=== PATIENT | female | born 1995 | race Caucasian/White ===

== ENCOUNTER 2023-02-27 11:01 | Outpatient (OUT) | payer OTHER, SELFPAY ==
[2023-02-27 12:14] LABS: Basophils Absolute Auto 0.1 10^3/uL (0.0-0.1); Basophils Percent Auto 0.9 % (0.2-2.0); Eosinophils Absolute Auto 0.2 10^3/uL (0.0-0.7); Eosinophils Percent Auto 3.1 % (0.9-7.0); Hematocrit 37.8 % (36.0-48.0); Hemoglobin 12.5 g/dL (12.0-16.0); Immature Granulocytes Abs Auto 0.05 10^3/uL (0.00-0.03); Immature Granulocytes Pct Auto 0.8 % (0.0-0.5); Lymphocytes Absolute Auto 1.4 10^3/uL (1.2-3.8); Lymphocytes Percent Auto 22.2 % (20.5-60.0); Mean Corpuscular HGB Conc 33.1 g/dL (29.9-35.2); Mean Corpuscular Hemoglobin 35.7 pg (26.7-34.0); Mean Platelet Volume 9.3 fL (9.5-13.5); Monocytes Absolute Auto 0.3 10^3/uL (0.3-0.8); Monocytes Percent Auto 4.9 % (1.7-12.0); Neutrophils Absolute Auto 4.4 10^3/uL (1.4-6.5); Neutrophils Percent Auto 68.1 % (43.0-75.0); Platelet Count 271 10^3/uL (150-450); Red Cell Distribution Width 13.5 % (11.0-15.0); White Blood Count 6.5 10^3/uL (4.0-11.0)
[2023-02-27 12:22] LABS: Erythrocyte Sedimentation Rate 24 mm/hr (<=20)
[2023-02-27 13:32] LABS: Alanine Aminotransferase 53 U/L (14-59); Albumin Globulin Ratio 0.7; Albumin Level 2.9 g/dL (3.4-5.0); Alkaline Phosphatase 157 U/L (46-116); Anion Gap 21.8; Aspartate Amino Transferase 119 U/L (15-37); Bilirubin Total 0.8 mg/dL (0.2-1.0); Carbon Dioxide 18.5 mmol/L (21.0-32.0); Chloride 103 mmol/L (98-107); Estimated GFR (African America >60 (>=60); Estimated GFR (Non-African Ame >60 (>=60); Free T3 2.99 pg/mL (2.18-3.98); Globulin 4.1 g/dL; Glucose 191 mg/dL (74-106); Potassium 3.3 mmol/L (3.5-5.1); Sodium 140 mmol/L (136-145); Thyroid Stimulating Hormone 1.341 uIU/mL (0.358-3.740)
[2023-02-28 05:07] LABS: HBsAg Screen Negative (Negative); HCV Ab Non Reactive (Non Reactive); Hep A Ab, IgM Negative (Negative); Hep B Core Ab, IgM Negative (Negative)
== END 2023-02-27 11:02 | disposition home or self-care (01) ==
PROVIDERS: PCP Nurse Practitioner Family; Visit Provider Nurse Practitioner Family
DX: R60.0 Localized edema (principal)
CPT/HCPCS: 36415; 80053; 80074; 82607; 82746; 83540; 84436; 84443; 84481; 85652

== ENCOUNTER 2023-03-04 12:49 | Outpatient (OUT) | payer OTHER, SELFPAY ==
--- NOTE | 2023-03-04 | US_ITS ---
The [place] [id number] Patient Name: RICA STOUT MRN: [id number] date: 1995 Sex: F Assigned Patient Location: US Current Patient Location: US Accession/Order Number: [id number] Exam Date: 03/04/2023 12:56 Report Date: 03/04/2023 16:17 At the request of: CARINA ARAUJO Procedure: US venous doppler LE BI EXAMINATION: US venous doppler LE BI HISTORY: Localized edema R60.0 COMPARISON: No relevant comparison available. FINDINGS: REGION: Bilateral lower extremities THROMBI: . COMPRESSIBILITY: Normal compressibility. FLOW: Normal waveform and antegrade flow between 5 and 20 cm/s. OTHER: None. US/US venous doppler LE BI IMPRESSION: 1. No deep vein thrombus within the right or left lower extremity. Electronically authenticated by: DAVID TRUONG Date: 03/04/2023 16:17
== END 2023-03-04 12:50 | disposition home or self-care (01) ==
LOC: US 12:49
PROVIDERS: PCP Nurse Practitioner Family; Visit Provider Nurse Practitioner Family
DX: R60.0 Localized edema (principal)
CPT/HCPCS: 93970

== ENCOUNTER 2023-03-11 18:14 | Emergency (ER) | payer OTHER, SELFPAY ==
[2023-03-11] VITALS (38 sets, daily range): BP systolic 103–125; BP diastolic 55–76; PULSE 113–130; RESP 13–38; TEMP 36.8; O2SAT 100; BMI 22.3
--- NOTE | 2023-03-11 18:20 | ECG_ITS ---
The [facility] Test Date: 2023-03-11 Pat Name: RICA STOUT Department: Room: - Gender: Female Surg Tech: : 1995 Requested By: CARINA ARAUJO Order Number: [id number] Reading MD: ARIES ORTEGA Measurements Intervals [place] Rate: 123 P: 63 MN: 146 QRS: 93 QRSD: 72 T: 13 QT: 318 QTc: 391 Interpretive Statements 1120 Sinus tachycardia 4068 Nonspecific Twave abnormality 7102 Moderate right axis deviation 9140 abnormal rhythm ECG No previous ECG available for comparison Electronically Signed On 03-12-2023 7:03:12 EDT by ARIES ORTEGA
--- NOTE | 2023-03-11 18:24 | ED_ITS ---
HPI - General Adult General Chief complaint: Chest Pain Stated complaint: High Heart Rate, Dizziness, Lower Extremity Edema Time Seen by Provider: 03/11/23 18:20 Source: patient Mode of arrival: walk-in Limitations: no limitations History of Present Illness HPI narrative: 27-year-old female presents with palpitations for the past 4 days. She states that her grandmother has a watch to look at her heart rate and was in the 140s. Symptoms have been ongoing all day. She states that she had an episode of bilateral leg weakness where she could not walk with bilateral lower leg edema 2 months ago and this resolved. She saw her family doctor for this issue and had imaging of her neck, but she is not sure what specific imaging. She thinks her family doctor was trying to get imaging of her brain, but insurance Related Data Previous Rx's Medication Instructions Recorded magnesium 200 mg tablet 400 mg PO DAILY 5 days #10 tabs 03/11/23 potassium chloride 20 mEq 40 meq PO DAILY 5 days #10 tabs 03/11/23 tablet,extended release Allergies Allergy/AdvReac Type Severity Reaction Status Date / Time Penicillins Allergy Severe Verified 03/11/23 18:17 Exam Constitutional Vital Signs, click to edit/add: Last Vital Signs Temp 98.3 F 03/11/23 18:17 Pulse 114 H 03/12/23 00:50 Resp 26 H 03/12/23 00:50 BP 121/67 03/12/23 00:30 Pulse Ox 100 03/11/23 21:40 O2 Del Method Room Air 03/11/23 18:17 Course Vital Signs Vital signs: Vital Signs Temperature 98.3 F 03/11/23 18:17 Pulse Rate 130 H 03/11/23 18:17 Respiratory Rate 18 03/11/23 18:17 Blood Pressure 116/73 03/11/23 18:17 Pulse Oximetry 100 03/11/23 18:17 Oxygen Delivery Method Room Air 03/11/23 18:17 Temperature 98.3 F 03/11/23 18:17 Pulse Rate 114 H 03/12/23 00:50 Respiratory Rate 26 H 03/12/23 00:50 Blood Pressure 121/67 03/12/23 00:30 Pulse Oximetry 100 03/11/23 21:40 Oxygen Delivery Method Room Air 03/11/23 18:17 Medical Decision Making MDM Narrative Medical decision making narrative: EKG sinus tachycardia at a rate of 123. Patient had labs done 2 weeks ago. D- dimer 0.91. Magnesium 1.4 and will be given 2 g IV. Potassium 2.6 and given 40 orally and 40 IV. No acute findings on chest x-ray. AST 163, ALT 67 and alk phos 142. No other significant abnormalities. She states that she drinks 3 to 4 16 ounce twisted teas 3-4 times a week. She states that she does have a history of hypokalemia and family doctor did not know why. UA negative appears contaminated. UDS positive for cannabinoids, otherwise negative. CTA PE chest negative for PE, but does show hepatomegaly and diffuse hepatic steatosis. She is instructed on alcohol cessation. She also states that she was seeing a liver doctor in [place] when she was on Vivitrol a couple years ago for heroin. She states that she was on this for a year or longer than she was supposed to be taking this medication. Findings likely alcohol related. She is to follow-up with her family doctor to monitor her LFTs. She will be given a 5- day prescription of K-dur and magnesium. Afebrile, not tachypneic, not tachycardic, not hypoxic, non toxic appearing and ambulating at baseline and hemodynamically stable to be d/c. answered all questions. educated on SE of meds. pt in agreement with tx. educated when to return to ER. Lab Data Labs: Lab Results 03/11/23 03/11/23 Range/Units 18:40 19:45 WBC 6.6 (4.0-11.0) 10^3/uL RBC 3.15 L (4.20-5.40) 10^6/uL Hgb 11.6 L (12.0-16.0) g/dL Hct 34.2 L (36.0-48.0) % MCV 108.6 H (81.0-99.0) fL MCH 36.8 H (26.7-34.0) pg MCHC 33.9 (29.9-35.2) g/dL RDW 14.1 (11.0-15.0) % Plt Count 349 (150-450) 10^3/uL MPV 9.1 L (9.5-13.5) fL Neut % (Auto) 61.5 (43.0-75.0) % Lymph % (Auto) 29.9 (20.5-60.0) % Parker % (Auto) 6.6 (1.7-12.0) % Eos % (Auto) 0.6 L (0.9-7.0) % Baso % (Auto) 0.8 (0.2-2.0) % Neut # (Auto) 4.1 (1.4-6.5) 10^3/uL Lymph # (Auto) 2.0 (1.2-3.8) 10^3/uL Parker # (Auto) 0.4 (0.3-0.8) 10^3/uL Eos # (Auto) 0.0 (0.0-0.7) 10^3/uL Baso # (Auto) 0.1 (0.0-0.1) 10^3/uL Abs Immat Gran (auto) 0.04 H (0.00-0.03) 10^3/uL Imm/Tot Granulo (auto) 0.6 H (0.0-0.5) % D-Dimer 0.91 H* (<=0.59) mg/L FEU Sodium 135 L (136-145) mmol/L Potassium 2.6 L* (3.5-5.1) mmol/L Chloride 98 (98-107) mmol/L Carbon Dioxide 18.1 L (21.0-32.0) mmol/L Anion Gap 21.5 BUN <1.0 L (7.0-18.0) mg/dL Creatinine 0.65 (0.55-1.02) mg/dL Est GFR ( Amer) >60 (>=60) Est GFR (Non-Af Amer) >60 (>=60) BUN/Creatinine Ratio 1.5 Glucose 106 (74-106) mg/dL Calcium 8.7 (8.5-10.1) mg/dL Magnesium 1.4 L (1.8-2.4) mg/dL Total Bilirubin 0.7 (0.2-1.0) mg/dL AST 163 H (15-37) U/L ALT 67 H (14-59) U/L Alkaline Phosphatase 142 H (46-116) U/L Total Protein 7.2 (6.4-8.2) g/dL Albumin 3.0 L (3.4-5.0) g/dL Globulin 4.2 g/dL Albumin/Globulin Ratio 0.7 TSH 1.807 (0.358-3.740) uIU/mL Urine Color Yellow (YELLOW) Urine Clarity Clear (CLEAR) Urine pH 5.5 (5.0-9.0) Ur Specific [place] 1.025 (1.005-1.025) Urine Protein Trace (NEG/TRACE) mg/dL Urine Glucose (UA) Negative (NEGATIVE) mg/dL Urine Ketones Negative (NEGATIVE) mg/dL Urine Occult Blood Negative (NEGATIVE) Urine Nitrite Negative (NEGATIVE) Urine Bilirubin Negative (NEGATIVE) Urine Urobilinogen 1.0 (0.2-1.0) EU/dL Ur Leukocyte Esterase Trace A (NEGATIVE) Urine RBC 0-2 (0-2) #/HPF Urine WBC 2-5 A (NONE SEEN) #/HPF Ur Squamous Epith Cells Many A (NONE/RARE) #/LPF Urine Crystals None seen (None Seen) #/HPF Urine Bacteria Trace A (NONE SEEN) #/HPF Urine Casts None seen (NONE SEEN) #/LPF Urine Mucus Small A (NONE SEEN) Urine HCG, Qual Negative (NEGATIVE) Urine Opiates Screen Negative (NEGATIVE) Ur Buprenorphine Scrn Negative (NEGATIVE) Ur Oxycodone Screen Negative (NEGATIVE) Urine Methadone Screen Negative (NEGATIVE) Ur Propoxyphene Screen Negative (NEGATIVE) Ur Barbiturates Screen Negative (NEGATIVE) U Tricyclic Antidepress Negative (NEGATIVE) Ur Phencyclidine Scrn Negative (NEGATIVE) Ur Amphetamines Screen Negative (NEGATIVE) U Methamphetamines Scrn Negative (NEGATIVE) U Benzodiazepines Scrn Negative (NEGATIVE) Urine Cocaine Screen Negative (NEGATIVE) U Cannabinoids Screen Positive A (NEGATIVE) Discharge Plan Discharge Chief Complaint: Chest Pain Clinical Impression: Heart palpitations, Hypokalemia, Hypomagnesemia, Elevated LFTs, Hepatic steatosis, Hepatomegaly, Alcohol use Patient Disposition: Home, Self-Care Time of Disposition Decision: 20:48 Condition: Good Mode of Transportation: Private Vehicle Prescriptions / Home Meds: New potassium chloride 20 mEq tablet extended release 40 meq PO DAILY 5 Days Qty: 10 0RF magnesium 200 mg tablet 400 mg PO DAILY 5 Days Qty: 10 0RF Instructions: Heart Palpitations (ED), Cirrhosis of the Liver (ED), Hypokalemia (ED), Hypomagnesemia (ED) Stand Alone Forms: Portal Instructions Referrals: CARINA ARAUJO [Primary Care Provider] - 1 week Discharge Date/Time: 03/12/23 00:59
--- NOTE | 2023-03-11 18:32 | XR_ITS ---
The [address] [address] Patient Name: RICA STOUT MRN: [id number] date: 1995 Sex: F Assigned Patient Location: ER Current Patient Location: ER Accession/Order Number: [id number] Exam Date: 03/11/2023 16:40 Report Date: 03/11/2023 19:04 At the request of: JE BRUNO Procedure: XR chest 1V EXAMINATION: XR chest 1V HISTORY: Shortness of breath COMPARISON: None. TECHNIQUE: Portable chest FINDINGS: The lung parenchyma is free of consolidation or infiltrate. No pneumothorax or pleural effusion. The cardiac, mediastinal and hilar contours are normal. The visualized osseous structures exhibit no gross abnormality. XR/XR chest 1V IMPRESSION: No acute cardiopulmonary abnormality. Electronically authenticated by: KARYNA VIZCARRA Date: 03/11/2023 19:04
[2023-03-11 18:46] LABS: Basophils Absolute Auto 0.1 10^3/uL (0.0-0.1); Basophils Percent Auto 0.8 % (0.2-2.0); Eosinophils Percent Auto 0.6 % (0.9-7.0); Hematocrit 34.2 % (36.0-48.0); Hemoglobin 11.6 g/dL (12.0-16.0); Immature Granulocytes Abs Auto 0.04 10^3/uL (0.00-0.03); Immature Granulocytes Pct Auto 0.6 % (0.0-0.5); Lymphocytes Percent Auto 29.9 % (20.5-60.0); Mean Corpuscular HGB Conc 33.9 g/dL (29.9-35.2); Mean Corpuscular Hemoglobin 36.8 pg (26.7-34.0); Mean Corpuscular Volume 108.6 fL (81.0-99.0); Mean Platelet Volume 9.1 fL (9.5-13.5); Monocytes Absolute Auto 0.4 10^3/uL (0.3-0.8); Monocytes Percent Auto 6.6 % (1.7-12.0); Neutrophils Absolute Auto 4.1 10^3/uL (1.4-6.5); Neutrophils Percent Auto 61.5 % (43.0-75.0); Platelet Count 349 10^3/uL (150-450); Red Blood Count 3.15 10^6/uL (4.20-5.40); Red Cell Distribution Width 14.1 % (11.0-15.0); White Blood Count 6.6 10^3/uL (4.0-11.0)
[2023-03-11 19:13] LABS: Alanine Aminotransferase 67 U/L (14-59); Albumin Globulin Ratio 0.7; Alkaline Phosphatase 142 U/L (46-116); Anion Gap 21.5; Aspartate Amino Transferase 163 U/L (15-37); BUN Creatinine Ratio 1.5; Bilirubin Total 0.7 mg/dL (0.2-1.0); Blood Urea Nitrogen <1.0 mg/dL (7.0-18.0); Calcium 8.7 mg/dL (8.5-10.1); Carbon Dioxide 18.1 mmol/L (21.0-32.0); Chloride 98 mmol/L (98-107); Estimated GFR (African America >60 (>=60); Estimated GFR (Non-African Ame >60 (>=60); Globulin 4.2 g/dL; Glucose 106 mg/dL (74-106); Magnesium 1.4 mg/dL (1.8-2.4); Sodium 135 mmol/L (136-145); Thyroid Stimulating Hormone 1.807 uIU/mL (0.358-3.740); Total Protein 7.2 g/dL (6.4-8.2)
--- NOTE | 2023-03-11 19:15 | CT_ITS ---
[address] [address] Patient Name: RICA STOUT MRN: [id number] date: 1995 Sex: F Assigned Patient Location: ER Current Patient Location: ER Accession/Order Number: [id number] Exam Date: 03/11/2023 19:53 Report Date: 03/11/2023 20:30 At the request of: JE BRUNO Procedure: CT angio chest EXAMINATION: CT angio chest, 03/11/2023 7:53 PM EDT HISTORY: elevated dimer, sob, r/o PE COMPARISON: None. TECHNIQUE: CT angiography of the chest was performed with IV contrast. MIP (maximum intensity projection) images or 3D post processing was performed. CT dose reduction technique was used, including Automated Exposure Control. FINDINGS: VASCULATURE/PULMONARY ARTERIES: There is satisfactory opacification of the pulmonary arterial system. There is an area of motion artifact involving bilateral lower lobe pulmonary artery segments which limits evaluation of this region. The distal lower lobe pulmonary artery segments and subsegments appear patent. The main pulmonary artery is normal in diameter. The aorta and great vessels appear normal. HEART/PERICARDIUM: Normal. MEDIASTINAL/HILAR LYMPH NODES: No lymphadenopathy. ESOPHAGUS: Normal as visualized. PLEURAL CAVITY: No pleural effusion or pneumothorax. LUNGS/AIRWAYS: No infiltrates or consolidations. No suspicious pulmonary nodules. CHEST WALL/AXILLA/LOWER NECK: Normal. VISUALIZED UPPER ABDOMEN: There is hepatomegaly and severe diffuse hepatic steatosis. BONES: No acute process. CT/CT angio chest IMPRESSION: 1. Suboptimal study due to motion. Bilateral proximal lower lobe pulmonary artery segments are not adequately evaluated. The remainder pulmonary arteries appear patent. 2. Hepatomegaly and severe diffuse hepatic steatosis. Electronically authenticated by: ELENI BATES Date: 03/11/2023 20:30
[2023-03-11 19:16] LABS: D Dimer 0.91 mg/L FEU (<=0.59); Potassium 2.6 mmol/L (3.5-5.1)
[2023-03-11] MEDS: MAGNESIUM SULFATE IN WATER 50 ML IV (19:44)
[2023-03-11 20:00] LABS: Bilirubin Urine NEGATIVE (NEGATIVE); Blood Urine NEGATIVE (NEGATIVE); Clarity Urine CLEAR (CLEAR); Color Urine YELLOW (YELLOW); Glucose Urine UA NEGATIVE (NEGATIVE); Ketones Urine NEGATIVE (NEGATIVE); Leukocyte Esterase Urine TRACE (NEGATIVE); Nitrite Urine NEGATIVE (NEGATIVE); Protein Urine TRACE mg/dL (NEG/TRACE); Specific Gravity Urine 1.025 (1.005-1.025); pH Urine 5.5 (5.0-9.0)
[2023-03-11 20:08] LABS: Bacteria Urine TRACE #/HPF (NONE SEEN); Cast Seen? NONE SEEN #/LPF (NONE SEEN); Crystals Seen? None Seen #/HPF (None Seen); Mucus Urine SMALL (NONE SEEN); RBC Urine 0-2 #/HPF (0-2); Squamous Epithelial Cell Urine MANY #/LPF (NONE/RARE)
[2023-03-11 20:09] LABS: Amphetamine Screen Urine NEGATIVE (NEGATIVE); Barbiturates Screen Urine NEGATIVE (NEGATIVE); Benzodiazepines Screen Urine NEGATIVE (NEGATIVE); Buprenorphine Screen Urine NEGATIVE (NEGATIVE); Cannabinoid Screen Urine POSITIVE (NEGATIVE); Cocaine Screen Urine NEGATIVE (NEGATIVE); Methadone Screen Urine NEGATIVE (NEGATIVE); Methamphetamines Screen Urine NEGATIVE (NEGATIVE); Opiate Screen Urine NEGATIVE (NEGATIVE); Oxycodone Screen Urine NEGATIVE (NEGATIVE); Phencyclidine Screen Urine NEGATIVE (NEGATIVE); Tricyclic Antidepressant Urine NEGATIVE (NEGATIVE)
[2023-03-11 20:20] LABS: HCG Qualitative Urine* NEGATIVE (NEGATIVE)
[2023-03-11] MEDS: POTASSIUM CHLORIDE IN WATER 10 MEQ/100 ML PIGGYBACK 100 MEQ IV ×4 (20:49→23:59)
[2023-03-11] MEDS: 0.9 % SODIUM CHLORIDE 1,000 ML 1000 ML IV (20:49)
[2023-03-11] MEDS: POTASSIUM CHLORIDE 10 MEQ ER TABLET 40 MEQ PO (20:50)
[2023-03-12 00:02] VITALS: PULSE 127; RESP 19
[2023-03-12 00:10] VITALS: PULSE 121; RESP 16
[2023-03-12 00:20] VITALS: PULSE 133; RESP 28
[2023-03-12 00:30] VITALS: BP 121/67; PULSE 112; RESP 22
[2023-03-12 00:40] VITALS: PULSE 120; RESP 19
[2023-03-12 00:50] VITALS: PULSE 114; RESP 26
== END 2023-03-12 00:59 | disposition home or self-care (01) ==
PROVIDERS: Physician Assistant; Emergency Provider Emergency Medicine; PCP Nurse Practitioner Family
DX: R00.2 Palpitations (principal); E87.6 Hypokalemia; E83.42 Hypomagnesemia; R79.89 Other specified abnormal findings of blood chemistry; K76.0 Fatty (change of) liver, not elsewhere classified; R16.0 Hepatomegaly, not elsewhere classified; F10.90 Alcohol use, unspecified, uncomplicated; R82.5 Elevated urine levels of drugs, medicaments and biological substances
CPT/HCPCS: 36415; 71045; 71275; 80053; 80307; 81001; 83735; 84443; 84703; 85378; 93005; 96365; 96366; 96367; 96368; 96376; 99285; Q9967

== ENCOUNTER 2023-03-18 10:15 | Outpatient (OUT) | payer OTHER, SELFPAY ==
[2023-03-18 10:50] LABS: Ammonia 43 umol/L (11-32)
== END 2023-03-18 10:16 | disposition home or self-care (01) ==
LOC: LAB 10:17
PROVIDERS: PCP Nurse Practitioner Family; Visit Provider Nurse Practitioner Family
DX: I77.1 Stricture of artery (principal)
CPT/HCPCS: 36415; 82140

== ENCOUNTER 2023-04-08 09:04 | Outpatient (RCR) | payer OTHER, SELFPAY | END 2023-04-27 15:35 | disposition home or self-care (01) | LOC: PT 09:04 | PROVIDERS: PCP Nurse Practitioner Family | DX: G62.9 Polyneuropathy, unspecified (principal) | CPT/HCPCS: 97110; 97112; 97161 ==

== ENCOUNTER 2023-04-08 09:16 | Outpatient (RCR) | payer OTHER, SELFPAY | END 2023-04-27 15:36 | disposition home or self-care (01) | LOC: OT 09:16 | PROVIDERS: PCP Nurse Practitioner Family | DX: G62.9 Polyneuropathy, unspecified (principal) | CPT/HCPCS: 97161; 97166; 97530 ==

== ENCOUNTER 2023-04-15 13:10 | Outpatient (OUT) | payer OTHER, SELFPAY ==
--- NOTE | 2023-04-15 13:59 | CA_ITS ---
Patient: RICA STOUT Exam Date: 04/15/2023 : 1995 Gender:F Ordering : CARINA ARAUJO [facility] Admission #: [id number] Family : Order #: [id number] CLICK HERE TO VIEW EXAM ECHOCARDIOGRAM REPORT PROCEDURE: CA ECHO DOPPLER COMPLETE INDICATIONS: Localized edema COMPARISON: None. DESCRIPTION: COMPLETE ECHOCARDIOGRAM Real-time transthoracic echocardiography with 2D, M-mode, spectral and color flow Doppler performed. QUALITY: Technical quality was good. LEFT VENTRICLE: Normal chamber size. Normal left ventricular wall thickness. LV EF: Normal left ventricular systolic function is hyperdynamic; visually estimated ejection fraction is 65 to 70%. No significant wall motion abnormalities. DIASTOLIC: Normal diastolic function. ATRIAL SEPTUM: Inadequately seen. LEFT ATRIUM: Normal chamber size. RIGHT ATRIUM: Normal chamber size. RIGHT VENTRICLE: Normal chamber size. Normal right ventricular systolic function. TRICUSPID VALVE: Normal mobility and thickness. No stenosis with no regurgitation. Unable to assess right ventricular systolic pressure due to lack of measurable tricuspid regurgitation. MITRAL VALVE: Normal mobility and thickness. No evidence of mitral valve stenosis. There is no mitral annular calcification. No mitral regurgitation. AORTIC VALVE: Normal trileaflet appearance. No visible sclerosis. Normal leaflet mobility. No evidence of aortic valve stenosis. No aortic regurgitation. AORTIC ROOT: Normal diameter and appearance. PULMONIC VALVE: Normal thickness and mobility. No stenosis. Trivial regurgitation. PERICARDIUM: No evidence of pericardial effusion. IVC: Collapses with inspirations. Normal size. CONCLUSION: Global left ventricular systolic function is hyperdynamic; visually estimated ejection fraction is 65 to 70%. Normal diastolic function. The right ventricle is normal in size and systolic function. No significant valvular abnormalities. Adult Echocardiography Procedure Report Left Ventricle LVEDD (3.7 - 5.6 cm): 4.22 cm LVESD (2.2 - 4.0 cm): 2.90 cm LVIVS thickness (0.6 - 1.2 cm): 0.94 cm LVPW thickness (0.5 - 1.0 cm): 1.00 cm e': 0.17 m/s E - e': 4.60 LVOT Max Gradient: 4.16 mm[Hg], 3.93 mm[Hg], 3.68 mm[Hg] LVOT Area (cm2): 0.99 m/s Peak Velocity (LVOT): 1.02 m/s, 0.99 m/s, 0.96 m/s Mean Velocity (LVOT): 0.72 m/s LVOT Diameter 2.12 cm Left Ventricular Ejection Fraction: 58.64 % Left Atrium LA Volume Index (2D A2C): 23.12 ml/m2 Left Atrium Systolic Dimension: 3.52 cm Mitral Valve MV E to A Ratio: 0.91 Mitral Valve A-Wave Peak Velocity: 0.88 m/s Mitral Valve E-Wave Peak Velocity: 0.80 m/s Right Ventricle RV Internal Diastolic Dimension: 2.57 cm Aorta AO Root Diam: 2.60 cm Ascending Ao Diam: 2.56 cm Aortic Valve AoV Area (Peak Jackson): 2.56 cm2, 2.56 cm2, 2.60 cm2, 2.52 cm2 AoV Area (VTI): 2.52 cm2, 2.41 cm2, 2.67 cm2, 2.49 cm2 Peak Velocity(Antegrade Flow): 1.40 m/s, 1.34 m/s, 1.34 m/s Peak Gradient(Antegrade Flow): 7.87 mm[Hg], 7.17 mm[Hg], 7.17 mm[Hg] Mean Velocity(Antegrade Flow): 1.03 m/s, 0.98 m/s, 1.01 m/s Mean Gradient(Antegrade Flow): 4.73 mm[Hg], 4.25 mm[Hg], 4.50 mm[Hg] Velocity Time Integral: 23.38 cm, 21.74 cm, 22.03 cm Tricuspid Valve Pulmonic Valve Mean Gradient: 3.36 mm[Hg], 2.87 mm[Hg], 2.91 mm[Hg], 2.64 mm[Hg], 3.10 mm[Hg], 3.60 mm[Hg] Mean Velocity: 0.87 m/s, 0.80 m/s, 0.81 m/s, 0.77 m/s, 0.84 m/s, 0.90 m/s Peak Velocity: 1.09 m/s Peak Gradient: 5.32 mm[Hg], 4.74 mm[Hg], 4.50 mm[Hg], 3.97 mm[Hg], 4.50 mm[Hg], 5.59 mm[Hg] Right Atrium Right Atrium Systolic Pressure: 25.11 ml, 25.11 ml Dictated by: Aimee Wilkinson M.D. on 04/15/2023 at 16:38 Approved by: Aimee Wilkinson M.D. on 04/15/2023 at 16:42
--- NOTE | 2023-04-15 14:00 | CA_ITS ---
The [facility] Test Date: 2023-05-21 Pat Name: RICA STOUT Department: Room: - Gender: Female Fx Artist: : 1995 Requested By: [id number] Order Number: [id number] Reading MD: ARIES ORTEGA Interpretive Statements Predominant rhythm is sinus with average rate of 126 bpm Tachycardia - max rate of 166 bpm - longest episode of 3d 2h 5min 47sec with rates between 127-166 bpm Bradycardia - none Ventricular ectopy - 2 PVC Patient triggered events:none Impression: Predominant rhythm is sinus with average rate of 126 bpm Fastest rate of 166 bpm and slowest rate of 98 bpm No atrial fib, blocks or pauses Electronically Signed On 05-24-2023 7:19:39 EDT by ARIES ORTEGA
== END 2023-04-15 13:11 | disposition home or self-care (01) ==
PROVIDERS: PCP Nurse Practitioner Family; Visit Provider Nurse Practitioner Family
DX: R00.0 Tachycardia, unspecified (principal); R60.0 Localized edema; G62.9 Polyneuropathy, unspecified
CPT/HCPCS: 36415; 82525; 84207; 85652; 86140; 86430; 86592; 86618; 87389; 93246; 93306

== ENCOUNTER 2023-04-15 13:16 | Outpatient (OUT) | payer OTHER, SELFPAY ==
[2023-04-15 14:44] LABS: Erythrocyte Sedimentation Rate 44 mm/hr (<=20)
[2023-04-15 14:55] LABS: C Reactive Protein <0.2 mg/dL (<=1.0)
[2023-04-16 06:08] LABS: Rheumatoid Factor (RF) <10.0 IU/mL (<14.0)
[2023-04-16 08:20] LABS: HIV Ab/p24 Ag Screen Non Reactive (Non Reactive)
[2023-04-16 10:09] LABS: Lyme Total Antibody CIA Negative (Negative)
[2023-04-16 11:09] LABS: Rapid Plasma Reagin, Quant Non Reactive titer (NonRea<1:1)
[2023-04-20 18:09] LABS: Copper Level 116 ug/dL (80-158)
== END 2023-04-15 13:17 | disposition home or self-care (01) ==
LOC: LAB 13:17
PROVIDERS: PCP Nurse Practitioner Family
DX: G62.9 Polyneuropathy, unspecified (principal)
CPT/HCPCS: 36415; 82525; 84207; 85652; 86140; 86430; 86431; 86592; 86618; 87389

== ENCOUNTER 2023-04-25 12:45 | Outpatient (OUT) | payer OTHER, SELFPAY ==
[2023-04-25 13:11] LABS: Bilirubin Urine NEGATIVE (NEGATIVE); Blood Urine NEGATIVE (NEGATIVE); Clarity Urine CLEAR (CLEAR); Color Urine LT. YELLOW (YELLOW); Glucose Urine UA NEGATIVE (NEGATIVE); Ketones Urine NEGATIVE (NEGATIVE); Leukocyte Esterase Urine NEGATIVE (NEGATIVE); Nitrite Urine NEGATIVE (NEGATIVE); Protein Urine NEGATIVE (NEG/TRACE); Urobilinogen Urine 0.2 EU/dL (0.2-1.0); pH Urine 5.5 (5.0-9.0)
== END 2023-04-25 12:46 | disposition home or self-care (01) ==
LOC: LAB 12:48
PROVIDERS: PCP Nurse Practitioner Family; Visit Provider Nurse Practitioner Family
DX: G62.9 Polyneuropathy, unspecified (principal); M54.50 Low back pain, unspecified
CPT/HCPCS: 81003; 84207; 87086; 87186

== ENCOUNTER 2023-04-25 12:53 | Outpatient (OUT) | payer OTHER, SELFPAY ==
[2023-05-01 02:07] LABS: Vitamin B6, Plasma 2.5 ug/L (3.4-65.2)
== END 2023-04-25 12:54 | disposition home or self-care (01) ==
LOC: LAB 12:53
PROVIDERS: PCP Nurse Practitioner Family
DX: G62.9 Polyneuropathy, unspecified (principal)
CPT/HCPCS: 36415; 84207

== ENCOUNTER 2023-05-06 14:17 | Outpatient (OUT) | payer OTHER, SELFPAY ==
--- NOTE | 2023-05-06 15:52 | P.CN_ITS ---
Consult Note: HPI Data of Consult Patient: new to practice Consult date: 05/06/23 Requesting Physician: Zane Ortez MD Primary Care Provider: CARINA ARAUJO Consult Narrative Reason for consult: bilateral hand and feet neuropathy Narrative: 27yof who presents for evaluation. several months of worsening hand and feet neuropathy. underwent imaging of neck and low back, with no significant findings. no benefit from lyrica or gabapentin. also notes mottling of bilateral hands and feet. cc:: CC: Zane Ortez MD Review of Systems ROS Status of ROS 10 or more systems reviewed and unremarkable except as noted in history and below Meds Home Medications and Allergies Home Medications Medication Instructions Recorded Confirmed Type magnesium 200 mg tablet 400 mg PO DAILY 5 days #10 tabs 03/11/23 Rx potassium chloride 20 mEq 40 meq PO DAILY 5 days #10 tabs 03/11/23 Rx tablet,extended release Allergies Allergy/AdvReac Type Severity Reaction Status Date / Time Penicillins Allergy Severe Verified 03/11/23 18:17 Exam Narrative Exam Narrative: Psych-alert and oriented x 3. Attentive and appropriate, constitutionally no rmal, displays normal mood and affect per situation. There are no obvious deficits in memory, reasoning, or intellect.? Skin-no obvious rashes, bruising, erythema noted to the patient's area of pain.? Extremities- extremities are warm with minimal edema and palpable pulses. Mottling noted throughout bilateral hands and feet. Lumbar-tenderness to palpation noted in the lumbar spine and paraspinal m usculature. Strength-noted to be unremarkable Sensory-no notable sensory deficits in the bilateral lower extremities to touch or pinprick in all dermatomal distributions Coordination remains intact.? Gait remains non-antalgic. Assessment and Plan Assessment and Plan (1) Polyneuropathic pain: Plan 27yof who presents for evaluation. worsening bilateral hand and foot polyneuropathy. at this point, will have patient undergo bilateral upper extremity EMG, since previous was only bilateral lower extremity. also will refer to neuromuscular disorders center at [facility]. she is in agreement. medications reviewed. will trial cymbalta 60mg qhs. she expressed understanding. follow up as needed
== END 2023-05-06 14:18 | disposition home or self-care (01) ==
LOC: PM 14:19
PROVIDERS: PCP Nurse Practitioner Family; Visit Provider Anesthesiology
DX: G62.9 Polyneuropathy, unspecified (principal)
CPT/HCPCS: G0463

== ENCOUNTER 2023-05-07 13:37 | Emergency (ER) | payer OTHER, SELFPAY ==
[2023-05-07] VITALS (22 sets, daily range): BP systolic 126–136; BP diastolic 81–94; PULSE 101–117; RESP 13–24; TEMP 37.5; O2SAT 89–100; BMI 22.3
--- NOTE | 2023-05-07 13:45 | ECG_ITS ---
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
--- NOTE | 2023-05-07 13:58 | ED.GENADUL1 ---
HPI - General Adult General Chief complaint: Arrhythmia/Palpitations Stated complaint: ELEVATED HEARTRATE- FROM [facility] CARDIOLOGY Time Seen by Provider: 05/07/23 13:38 Source: patient Mode of arrival: walk-in History of Present Illness HPI narrative: patient is a 27-year-old female who presents to the emergency department with her mother for feeling shaky and vomiting today. 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 When she checked into the office, she was noted to have a heart rate of 130, which is where her heart rate has been for the last several months. She has already had a Holter monitor and echocardiogram ordered from the [facility] cardiology office. She was to see a provider for the 1st time today, when she reported feeling shaky, the office noted her high heart rate and sent her to the Emergency Room. She has no new focal medical complaints. 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 She has also been to a director of counseling. She was seen in this emergency department for the same symptoms of tachycardia and vomiting two months ago where she had hypokalemia and hypomagnesemia, she had a negative CTA for PE. She is not concerned for . She has no abdominal pain. No fevers or upper respiratory symptoms. Related Data Home Medications Medication Instructions Recorded Confirmed gabapentin 300 mg capsule 300 mg PO Q12H 05/07/23 05/07/23 sulfamethoxazole 800 1 tab PO Q12H 05/07/23 05/07/23 mg-trimethoprim 160 mg tablet thiamine HCl (vitamin B1) 100 mg 100 mg PO DAILY 05/07/23 05/07/23 tablet Previous Rx's Medication Instructions Recorded magnesium 200 mg tablet 400 mg PO DAILY 5 days #10 tabs 03/11/23 potassium chloride 20 mEq 40 meq PO DAILY 5 days #10 tabs 03/11/23 tablet,extended release Allergies Allergy/AdvReac Type Severity Reaction Status Date / Time Penicillins Allergy Severe Verified 03/11/23 18:17 Review of Systems ROS Constitutional Denies: fever or chills Ears, nose, mouth, and throat Denies: throat pain Cardiovascular Reports: palpitations; Denies: chest pain Respiratory Denies: shortness of breath or cough Gastrointestinal Reports: nausea and vomiting Genitourinary Denies: painful urination Musculoskeletal Denies: back pain Integumentary/Breast Denies: rash Neurological Denies: headache Exam Narrative Exam Narrative: Gen.: Awake, alert, in no distress Head: Normocephalic, atraumatic ENT: Moist mucous membranes Respiratory: No respiratory distress, lungs clear bilaterally Cardio: tachycardia Gastrointestinal: Abdomen is soft, nondistended and nontender to palpation Extremities: Moves extremities equally Psych: Normal mood and affect Neuro: No focal neuro deficit Skin: Warm, dry, intact Constitutional Vital Signs, click to edit/add: Last Vital Signs Temp 99.5 F 05/07/23 13:41 Pulse 110 H 05/07/23 14:40 Resp 19 05/07/23 14:40 BP 130/90 05/07/23 14:39 Pulse Ox 100 05/07/23 14:40 O2 Del Method Room Air 05/07/23 13:41 Course Vital Signs Vital signs: Vital Signs Temperature 99.5 F 05/07/23 13:41 Pulse Rate 117 H 05/07/23 13:41 Respiratory Rate 15 05/07/23 13:41 Blood Pressure 136/92 H 05/07/23 13:41 Pulse Oximetry 100 05/07/23 13:41 Oxygen Delivery Method Room Air 05/07/23 13:41 Temperature 99.5 F 05/07/23 13:41 Pulse Rate 110 H 05/07/23 14:40 Respiratory Rate 19 05/07/23 14:40 Blood Pressure 130/90 05/07/23 14:39 Pulse Oximetry 100 05/07/23 14:40 Oxygen Delivery Method Room Air 05/07/23 13:41 Medical Decision Making [facility] Narrative Medical decision making narrative: patient's heart rate has already decreased significantly on arrival to the Emergency Room, she has no complaints of chest pain or shortness of breath. All of her issues have been ongoing and evaluated by multiple specialists. IV fluids were given with Zofran, she tolerated ice chips with no difficulty. She was found to have hypomagnesemia and was treated with IV magnesium sulfate. The rest of her electrolytes are stable and her LFTs are decreasing. [facility] cardiology will see her tomorrow afternoon. Return to the Emergency Room if symptoms change or worsen Medical Records Medical records reviewed: Yes I reviewed the patient's medical records Lab Data Lab results reviewed: Yes I reviewed the patient's lab results Labs: Lab Results 05/07/23 Range/Units 13:56 WBC 9.9 (4.0-11.0) 10^3/uL RBC 4.04 L (4.20-5.40) 10^6/uL Hgb 13.7 (12.0-16.0) g/dL Hct 39.0 (36.0-48.0) % MCV 96.5 (81.0-99.0) fL MCH 33.9 (26.7-34.0) pg MCHC 35.1 (29.9-35.2) g/dL RDW 11.8 (11.0-15.0) % Plt Count 296 (150-450) 10^3/uL MPV 9.3 L (9.5-13.5) fL Neut % (Auto) 83.1 H (43.0-75.0) % Lymph % (Auto) 12.2 L (20.5-60.0) % [place] % (Auto) 3.6 (1.7-12.0) % Eos % (Auto) 0.1 L (0.9-7.0) % Baso % (Auto) 0.7 (0.2-2.0) % Neut # (Auto) 8.3 H (1.4-6.5) 10^3/uL Lymph # (Auto) 1.2 (1.2-3.8) 10^3/uL [place] # (Auto) 0.4 (0.3-0.8) 10^3/uL Eos # (Auto) 0.0 (0.0-0.7) 10^3/uL Baso # (Auto) 0.1 (0.0-0.1) 10^3/uL Abs Immat Gran (auto) 0.03 (0.00-0.03) 10^3/uL Imm/Tot Granulo (auto) 0.3 (0.0-0.5) % PT 11.5 (9.0-11.6) sec INR 1.09 APTT 26.9 (22.3-36.2) sec Sodium 136 (136-145) mmol/L Potassium 3.9 (3.5-5.1) mmol/L Chloride 101 (98-107) mmol/L Carbon Dioxide 20.5 L (21.0-32.0) mmol/L Anion Gap 18.4 BUN 15.0 (7.0-18.0) mg/dL Creatinine 0.68 (0.55-1.02) mg/dL Est GFR ( Amer) >60 (>=60) Est GFR (Non-Af Amer) >60 (>=60) BUN/Creatinine Ratio 22.1 Glucose 114 H (74-106) mg/dL Calcium 8.3 L (8.5-10.1) mg/dL Magnesium 1.2 L (1.8-2.4) mg/dL Total Bilirubin 0.5 (0.2-1.0) mg/dL AST 51 H (15-37) U/L ALT 38 (14-59) U/L Alkaline Phosphatase 82 (46-116) U/L Troponin I High Sens <4.0 L (4.0-51.3) pg/mL Total Protein 7.8 (6.4-8.2) g/dL Albumin 3.7 (3.4-5.0) g/dL Globulin 4.1 g/dL Albumin/Globulin Ratio 0.9 Serum HCG, Qual Negative (NEGATIVE) ECG Data Attestation: I personally reviewed and interpreted this ECG as follows: (sinus tachycardia at a rate of 112, no acute ST elevation or ectopy. EKG reviewed by attending physician) Discharge Plan Discharge Chief Complaint: Arrhythmia/Palpitations Clinical Impression: Sinus tachycardia, Hypomagnesemia, Nausea & vomiting Patient Disposition: Home, Self-Care Time of Disposition Decision: 15:21 Condition: Good Prescriptions / Home Meds: No Action potassium chloride 20 mEq tablet extended release 40 meq PO DAILY 5 Days Qty: 10 0RF magnesium 200 mg tablet 400 mg PO DAILY 5 Days Qty: 10 0RF gabapentin 300 mg capsule 300 mg PO Q12H thiamine HCl (vitamin B1) 100 mg tablet 100 mg PO DAILY sulfamethoxazole-trimethoprim 800-160 mg tablet 1 tab PO Q12H Instructions: Acute Nausea and Vomiting (DC), Hypomagnesemia (ED), Tachycardia (ED) Stand Alone Forms: Portal Instructions Referrals: CARINA ARAUJO [Primary Care Provider] - 1 week
[2023-05-07 14:07] LABS: Basophils Absolute Auto 0.1 10^3/uL (0.0-0.1); Basophils Percent Auto 0.7 % (0.2-2.0); Eosinophils Percent Auto 0.1 % (0.9-7.0); Hemoglobin 13.7 g/dL (12.0-16.0); Immature Granulocytes Abs Auto 0.03 10^3/uL (0.00-0.03); Immature Granulocytes Pct Auto 0.3 % (0.0-0.5); Lymphocytes Absolute Auto 1.2 10^3/uL (1.2-3.8); Lymphocytes Percent Auto 12.2 % (20.5-60.0); Mean Corpuscular HGB Conc 35.1 g/dL (29.9-35.2); Mean Corpuscular Hemoglobin 33.9 pg (26.7-34.0); Mean Corpuscular Volume 96.5 fL (81.0-99.0); Mean Platelet Volume 9.3 fL (9.5-13.5); Monocytes Absolute Auto 0.4 10^3/uL (0.3-0.8); Monocytes Percent Auto 3.6 % (1.7-12.0); Neutrophils Absolute Auto 8.3 10^3/uL (1.4-6.5); Neutrophils Percent Auto 83.1 % (43.0-75.0); Platelet Count 296 10^3/uL (150-450); Red Blood Count 4.04 10^6/uL (4.20-5.40); Red Cell Distribution Width 11.8 % (11.0-15.0); White Blood Count 9.9 10^3/uL (4.0-11.0)
[2023-05-07] MEDS: ONDANSETRON PF 4 MG/2 ML VIAL IV (14:10)
[2023-05-07] MEDS: 0.9 % SODIUM CHLORIDE 1,000 ML 1000 ML IV (14:10)
[2023-05-07 14:22] LABS: Alanine Aminotransferase 38 U/L (14-59); Albumin Globulin Ratio 0.9; Albumin Level 3.7 g/dL (3.4-5.0); Alkaline Phosphatase 82 U/L (46-116); Anion Gap 18.4; Aspartate Amino Transferase 51 U/L (15-37); BUN Creatinine Ratio 22.1; Bilirubin Total 0.5 mg/dL (0.2-1.0); Calcium 8.3 mg/dL (8.5-10.1); Carbon Dioxide 20.5 mmol/L (21.0-32.0); Chloride 101 mmol/L (98-107); Estimated GFR (African America >60 (>=60); Estimated GFR (Non-African Ame >60 (>=60); Globulin 4.1 g/dL; Glucose 114 mg/dL (74-106); INR 1.09; Partial Thromboplastin Time 26.9 sec (22.3-36.2); Potassium 3.9 mmol/L (3.5-5.1); Prothrombin Time 11.5 sec (9.0-11.6); Sodium 136 mmol/L (136-145); Total Protein 7.8 g/dL (6.4-8.2)
[2023-05-07 14:28] LABS: Magnesium 1.2 mg/dL (1.8-2.4); Troponin I High Sensitivity <4.0 pg/mL (4.0-51.3)
[2023-05-07 14:36] LABS: HCG Qualitative NEGATIVE (NEGATIVE)
[2023-05-07 14:55] LABS: Bilirubin Urine NEGATIVE (NEGATIVE); Blood Urine NEGATIVE (NEGATIVE); Clarity Urine CLEAR (CLEAR); Color Urine LT. YELLOW (YELLOW); Glucose Urine UA NEGATIVE (NEGATIVE); Ketones Urine NEGATIVE (NEGATIVE); Leukocyte Esterase Urine NEGATIVE (NEGATIVE); Nitrite Urine NEGATIVE (NEGATIVE); Protein Urine NEGATIVE (NEG/TRACE); Specific Gravity Urine 1.025 (1.005-1.025); Urobilinogen Urine 0.2 EU/dL (0.2-1.0)
[2023-05-07 14:57] LABS: Urine Microscopic Indicated NO
[2023-05-07 15:09] LABS: Amphetamine Screen Urine NEGATIVE (NEGATIVE); Cannabinoid Screen Urine POSITIVE (NEGATIVE); Cocaine Screen Urine NEGATIVE (NEGATIVE); Methamphetamines Screen Urine NEGATIVE (NEGATIVE); Opiate Screen Urine NEGATIVE (NEGATIVE); Phencyclidine Screen Urine NEGATIVE (NEGATIVE)
[2023-05-07 15:10] LABS: Barbiturates Screen Urine NEGATIVE (NEGATIVE); Benzodiazepines Screen Urine NEGATIVE (NEGATIVE); Buprenorphine Screen Urine NEGATIVE (NEGATIVE); Methadone Screen Urine NEGATIVE (NEGATIVE); Oxycodone Screen Urine NEGATIVE (NEGATIVE); Tricyclic Antidepressant Urine NEGATIVE (NEGATIVE)
[2023-05-07] MEDS: MAGNESIUM SULFATE IN WATER 2 GM/50 ML PREMIX IV (15:14)
== END 2023-05-07 16:35 | disposition home or self-care (01) ==
PROVIDERS: Physician Assistant; Emergency Provider Emergency Medicine; PCP Nurse Practitioner Family
DX: E83.42 Hypomagnesemia (principal); R00.0 Tachycardia, unspecified; R11.2 Nausea with vomiting, unspecified; Z79.899 Other long term (current) drug therapy
CPT/HCPCS: 36415; 80053; 80307; 81003; 83735; 84484; 84703; 85025; 85610; 85730; 93005; 96361; 96374; 96375; 99285

== ENCOUNTER 2023-06-25 19:44 | Outpatient (REF) | payer OTHER, SELFPAY ==
[2023-06-25 20:09] LABS: SARS-CoV-2 Ag POSITIVE (NEGATIVE)
== END 2023-06-25 19:45 | disposition home or self-care (01) ==
LOC: LAB 19:44
PROVIDERS: PCP Nurse Practitioner Family; Visit Provider Nurse Practitioner Family
DX: R50.9 Fever, unspecified (principal)
CPT/HCPCS: 87811

== ENCOUNTER 2023-08-01 09:35 | Outpatient (OUT) | payer OTHER, SELFPAY ==
--- OUTSIDE RECORDS SUMMARY | 2023-08-01 09:46 | XMS_ITS | CCD ---
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 Name Role Phone Haven Niño R Primary Care Provider KALIA BENDER Referring Unavailable RENAY, HAVEN Vasyl Primary Care Unavailable KALIA BENDER Referring Unavailable RENAY, HAVEN R Primary Care Unavailable MASSIMO BRIGHT Referring Unavailable RENAY, HAVEN R Primary Care Unavailable VAN, DANUTA Admitting Unavailable VAN, DANUTA Primary Care Unavailable DANUTA ARAUJO Attending Unavailable PAY ., DR MENDEZ Admitting Unavailable VAN, DANUTA Primary Care Unavailable PAY ., DR MENDEZ Attending Unavailable PAUL NIXON Consulting Unavailyvonne e VAN, DANUTA Primary Care Unavailable KATINA CLIFTON Admitting Unavailable DIONNE, DR DAVID Fallon Consulting Unavailable GRACIA Ortiz, KATINA Attending Unavailable PAUL NIXON Consulting Unavailyvonne e GRACIA ., KATINA Consulting Unavailable MILLIE NORMAN Consulting Unavailable VAN, DANUTA Admitting Unavailable VAN, DANUTA Primary Care Unavailable Karyna Langford Consulting Unavailable VAN, DANUTA Attending Unavailable DIONNE, DR DAVID Fallon Consulting Unavailable VAN, DANUTA Consulting Unavailable VAN, DANUTA Admitting Unavailable VAN, DANUTA Primary Care Unavailable Karyna Langford Consulting Unavailable VAN, DANUTA Attending Unavailable VAN, DANUTA Consulting Unavailable VAN, DANUTA Admitting Unavailable VAN, DANUTA Primary Care Unavailable VAN, DANUTA Attending Unavailable VAN, DANUTA Consulting Unavailable VAN, DANUTA Admitting Unavailable VAN, DANUTA Primary Care Unavailable Karyna Langford Consulting Unavailable VAN, DANUTA Attending Unavailable VAN, DANUTA Consulting Unavailable DAVE COHEN Admitting Unavailable NICKI .DAVE Consulting Unavailable NICKI .DAVE Attending Unavailable VAN, DANUTA Primary Care Unavailable GODFREY, KLARISSA Admitting Unavailable GODFREY, KLARISSA Consulting Unavailable GODFREY, KLARISSA Attending Unavailable VAN, DANUTA Primary Care Unavailable VAN, DANUTA Admitting Unavailable VAN, DANUTA Primary Care Unavailable Karyna Langford Consulting Unavailable VAN, DANUTA Attending Unavailable VAN, DANUTA Consulting Unavailable VAN, DANUTA Primary Care Unavailable SUDHA ., DR DUCKWORTH Attending Unavailable SUDHA ., DR DUCKWORTH Admitting Unavailable SUDHA ., DR DUCKWORTH Consulting Unavailable DEBORAH Araujo-C Danuta Diana Primary Care Provider [phone] DO Bernard Peterson Emergency Provider MD Parveen Riley Admit Provider MD Parveen Keller Attending Provider HAVEN NIÑO CNP Primary Care Physician DO Chele Gamino Other Provider MD Noé [facility] Attending Provider [phone] MD Marc Giron Other Provider MD Marc Giron Admit Provider MD Marc Giron Attending Provider Susanna Linn Other Provider Unavailable DO Loli Cheema Other Provider MD David Chowdary Other Provider DO Keshav Arrington Other Provider Chong [facility] [place] Other Provider HODAN Coker Other Provider DRAKE Akhtar Other Provider HODAN Goodman-IT APPLICATIONS MANAGER-C Cris Conklin Other Provider Helen GREOC, Irvin Baker Unavailable Neelima GRECO, Zane Bal Attending Unavailable Cris Goodman Unavailable DEBORAH Aarujo-Mikel Ortiz Primary Care Provider DO Bernard Peterson Emergency Provider MD Parveen Riley Admit Provider DO Chele Gamino Other Provider MD Brianne Umanzor Attending Provider MD Marc Giron Other Provider MD Marc Giron Admit Provider MD Marc Giron Attending Provider Susanna Linn Other Provider Unavailable DO Loli Cheema Other Provider MD David Chowdary Other Provider DO Keshav Arrington Other Provider RAYSHAWN Schwarz-MÓNICA Basilio Other Provider HODAN Coker Other Provider DEBORAH Akhtar-Mikel Adam Other Provider HODAN Goodman-IT APPLICATIONS MANAGER-C Cris Conklin Other Provider MD Jane Tracey Attending Provider MD Jane Tracey Attending Provider DRAKE Araujo Primary Care Provider MD Jane Tracey Attending Provider [phone] DO Keshav Arrington Referring Provider Danuta Araujo Primary Care Unavailable Al-Marrawi, Mhd Yaser Admitting Unavailabl e Abhilash-Jane Condonser Attending UnavailKeshav Bateman Referring Unavailab le Danuta Araujo Primary Care Unavailable Al-Marrawi, Mhd Yaser Admitting Unavailabl e Al-MarLes morejond Yaser Attending UnavailParveen Castillo Admitting Unavailable Brianne Umanzor Attending Unavailable Chele Gamino Consulting Unavailable Danuta Araujo Primary Care Unavailable Marc Giron Consulting Unavailable Marc Giron Admitting Unavailable Marc Giron Attending Unavailable Susanna Linn Consulting Unavailable Danuta Araujo Primary Care Unavailable Loli Cheema Consulting Unavailable David Chowdary Consulting Unavailable Keshav Arrington Consulting UnavailChetna Bradley Consulting Unavailable Chele Gamino Consulting Unavailable Mandy Coker Consulting Unavailable Jes Akhtar Consulting Unavailable Cris Goodman Consulting Unavailable NETTIE SHEA Attending Unavailable MARTHA GRAY Attending Unavailable MARTHA GRAY Attending Unavailable Harry Millie Ceci Attending Unavailable RENAY DIRECTOR SUPPLIER QUALITY, HAVEN Primary Care Unavailable RENAY ANDREA, HAVEN Primary Care Unavailable Fouzia Mcdonaldh A Attending Unavailable RODDENMARGE GRH Attending Unavailable ARSH OROZCO Attending Unavailyvonne e RODDENBERRY, JEANNIE Referring Unavailable RODDENBERRY JEANNIE Attending Unavailable RODDENBERRY, JEANNIE Referring Unavailable RODDENBERRY, JEANNIE Referring Unavailable Allergies Allergy Classification Reported Allergen(s) Allergy Type Date of Onset Reaction(s) Facility (9 sources) Penicillins; Translations: [PENICILLINS] Drug allergy (disorder) 4 Rash [facility] Repository (2 sources) Penicillin; Translations: [penicillin] Drug Allergy Eruption of skin (disorder) [facility] (4 sources) Penicillins Drug Allergy 3 Rash [facility] (1 source) Penicillins Drug allergy (disorder) 3 [facility] Repository Medications Current Medications Medication Drug Class(es) Dates Sig (Normalized) Sig (Original) folic acid 1 mg oral tablet (20 sources) Start: 05-30-2023 take 2 mg by mouth once daily Folic Acid Active 2 MG PO Daily 60 May 30, 2023 12:00am Start: 03-27-2023 End: 05-30-2023 take 1 mg by mouth once daily in the morning Folic Acid Discontinued 1 MG PO Every morning April 01, 2023 11:00pm May 30, 2023 2:16pm Comment on above: TAKE 1 TABLET EVERY MORNING FOR 30 DAYS gabapentin 300 mg oral capsule (5 sources) Anti-epileptic Agent Start: 05-17-2023 take 300 mg by mouth twice daily Gabapentin Active 300 MG PO Twice daily May 30, 2023 12:00am Comment on above: Take 300 mg by mouth two times a day. magnesium oxide 200 mg oral tablet (6 sources) Start: 03-21-2023 take 200 mg by mouth once daily in the morning Magnesium Oxide Active 200 MG PO Every morning March 20, 2023 11:00pm 24 hr metoprolol succinate 25 mg extended release oral tablet (5 sources) beta-Adrenergic Poonam Start: 05-08-2023 End: 05-07-2024 take 25 mg by mouth once daily in the morning Metoprolol Succinate Active 25 MG PO Every morning May 30, 2023 12:00am Comment on above: Take 25 mg by mouth once daily. vitamin b6 50 mg oral tablet (6 sources) Start: 05-30-2023 End: 05-30-2023 take 1 tablet by mouth once daily Pyridoxine (Vitamin B6) (Vitamin B-6) 50 mg Tablet Active 50 MG PO Daily May 30, 2023 12:00am Completed/Discontinued Medications Medication Drug Class(es) Dates Sig (Normalized) Sig (Original) diclofenac sodium 0.01 mg/mg topical gel (4 sources) Nonsteroidal Anti-inflammatory Drug Start: 04-02-2023 End: 05-30-2023 Diclofenac Sodium (Voltaren Arthritis Pain) 1 % Gel Discontinued 2 GM TOPICAL Three times daily 08 20April 01, 2023 11:00pm May 30, 2023 2:16pm DULoxetine 60 mg delayed release oral capsule (2 sources) Serotonin and Norepinephrine Reuptake Inhibitor Start: 05-06-2023 take 1 capsule by mouth once daily DULoxetine (CYMBALTA) 60 mg capsule Take 60 mg by mouth once daily. 0 05/06/2023 Active Comment on above: Take 60 mg by mouth once daily. ibuprofen 400 mg oral tablet (2 sources) Nonsteroidal Anti-inflammatory Drug Start: 04-25-2023 take 1 tablet by mouth three times daily ibuprofen (MOTRIN) 400 mg tablet Take 1 tablet by mouth three times a day. 0 04/25/2023 Active Comment on above: Take 1 tablet by jose th three times a day. lactulose 667 mg/ml oral solution (6 sources) Osmotic Laxative Start: 03-21-2023 End: 05-30-2023 take 10 g by mouth once daily in the morning Lactulose Discontinued 10 GM PO Every morning March 20, 2023 11:00pm May 30, 2023 2:16pm magnesium oxide 200 mg magnesium chew (3 sources) magnesium oxide 200 mg magnesium chew OTC magnesium 200 mg BID 0 Active Comment on above: OTC magnesium 200 mg BID menthol 10 mg/ml / methyl salicylate 150 mg/ml topical cream (4 sources) Start: 04-02-2023 End: 05-30-2023 Methyl Salicylate-Menthol (Thera-Gesic) 15-1 % Cream Discontinued 1 APPLIC TOPICAL Three times daily April 01, 2023 11:00pm May 30, 2023 2:17pm potassium chloride 20 meq extended release oral tablet (9 sources) Start: 03-20-2023 End: 05-30-2023 take 20 mEq by mouth twice daily Potassium Chloride Discontinued 20 MEQ PO Twice daily March 20, 2023 11:00pm May 30, 2023 2:17pm Comment on above: TAKE 1 TABLET WITH F OOD ORALLY TWICE A DAY 30 DAYS pregabalin 75 mg oral capsule (7 sources) Start: 04-02-2023 End: 05-30-2023 take 75 mg by mouth twice daily Pregabalin Discontinued 75 MG PO Twice daily April 01, 2023 11:00pm May 30, 2023 2:15pm Comment on above: Take 75 mg by mouth. thiamine 100 mg oral tablet (20 sources) Start: 03-27-2023 End: 05-30-2023 take 100 mg by mouth once daily in the morning Thiamine Hcl (Vitamin B1) Discontinued 100 MG PO Every morning April 01, 2023 11:00pm May 30, 2023 2:17pm Comment on above: Take 100 mg by mouth every morning. Problems Active Problems Problem Classification Problem Date Documented Date Episodic/Chronic Alcohol-related disorders (15 sources) History of alcohol abuse; Translations: [Alcohol abuse, in remission] Onset: 03-27-2023 03-21-2023 Chronic Cardiac dysrhythmias (4 sources) Supraventricular tachycardia; Translations: [SUPRAVENTRICULAR TACHYCARDIA] Onset: 11-06-2021 Chronic Fluid and electrolyte disorders (2 sources) Dehydration; Translations: [Hypokalemia] Onset: 09-17-2022 Episodic Genitourinary symptoms and ill-defined conditions (4 sources) Unspecified symptoms and signs involving the genitourinary system; Translations: [UNS SYMPTOMS SIGNS INVLV SYSTEM] Onset: 08-22-2022 Episodic Immunizations and screening for infectious disease (9 sources) Encounter for screening for infections with a predominantly sexual mode of transmission; Translations: [Encounter for immunization] Onset: 06-07-2022 05-30-2023 Episodic Mycoses (1 source) Candidiasis, unspecified; Translations: [CANDIDIASIS UNSPECIFIED] Onset: 08-23-2022 Episodic Nausea and vomiting (4 sources) Vomiting, unspecified; Translations: [Nausea with vomiting, unspecified] Onset: 08-30-2022 Episodic Nonmalignant breast conditions (5 sources) Unspecified lump in unspecified breast; Translations: [Unspecified lump in the right breast, unspecified quadrant] Onset: 09-17-2022 Episodic Nutritional deficiencies (9 sources) Deficiency of other specified B group vitamins; Translations: [Folic acid deficiency] Onset: 09-23-2022 03-28-2023 Episodic Other and unspecified benign neoplasm (1 source) Benign neoplasm of right breast; Translations: [BENIGN NEOPLASM OF RIGHT BREAST] Onset: 10-01-2022 Episodic Other connective tissue disease (6 sources) Weakness of distal arms and legs; Translations: [Other symptoms and signs involving the musculoskeletal system] 03-21-2023 Episodic Other hematologic conditions (1 source) Other specified diseases of blood and blood-forming organs; Translations: [OT SPEC DZ BLOOD AND BLOOD-FORM ORG] Onset: 09-17-2022 Chronic Other liver diseases (1 source) Non-alcoholic fatty liver 03-08-2021 Chronic Other liver diseases (2 sources) Hepatic fibrosis; 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] 05-14-2023 Chronic Other liver diseases (6 sources) Fatty (change of) liver, not elsewhere classified; 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] 05-30-2023 Chronic Other liver diseases (14 sources) Enzyme level - finding; Translations: [Elevated transaminase measurement] 03-22-2023 Episodic Other liver diseases (1 source) Elevated liver enzymes level 01-11-2021 Episodic Other nervous system disorders (5 sources) Disorder of the peripheral nervous system; Translations: [Polyneuropathy, unspecified] 03-26-2023 Chronic Other nervous system disorders (12 sources) Polyneuropathy, unspecified; Translations: [Unspecified hereditary and idiopathic peripheral neuropathy] Onset: 03-22-2023 03-27-2023 Chronic Other nervous system disorders (1 source) Anesthesia of skin; Translations: [ANESTHESIA OF SKIN] Onset: 10-26-2022 Episodic Other nervous system disorders (6 sources) Paresthesia of lower extremity; Translations: [Paresthesia of skin] 03-21-2023 Episodic Other nervous system disorders (6 sources) Paresthesia of upper limb; Translations: [Paresthesia of skin] 03-21-2023 Episodic Other nervous system disorders (1 source) Burning sensation; Translations: [Other disturbances of skin sensation] 05-24-2023 Episodic Other nervous system disorders (1 source) Skin sensation disturbance; Translations: [Unspecified disturbances of skin sensation] 05-24-2023 Episodic Other nutritional; endocrine; and metabolic disorders (10 sources) Hypomagnesemia; Translations: [Disorders of magnesium metabolism] Onset: 09-17-2022 03-22-2023 Chronic Other nutritional; endocrine; and metabolic disorders (6 sources) Hypophosphatemia; Translations: [Other disorders of phosphorus metabolism] 03-21-2023 Chronic Other nutritional; endocrine; and metabolic disorders (6 sources) Hypomagnesemia; Translations: [Hypomagnesemia] 03-21-2023 Chronic Other nutritional; endocrine; and metabolic disorders (9 sources) Other disorders of phosphorus metabolism; 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] Onset: 03-22-2023 03-22-2023 Chronic Other nutritional; endocrine; and metabolic disorders (6 sources) Decrease in appetite; Translations: [Anorexia] 03-21-2023 Episodic Other nutritional; endocrine; and metabolic disorders (6 sources) Weight loss; Translations: [Abnormal weight loss] 03-21-2023 Episodic Other nutritional; endocrine; and metabolic disorders (5 sources) Anorexia; Translations: [Anorexia] 03-22-2023 Episodic Other skin disorders (3 sources) Skin hypopigmented; Translations: [Disorder of pigmentation, unspecified] 05-30-2023 Episodic Other skin disorders (3 sources) Disorder of pigmentation, unspecified; Translations: [Other specified disorders of skin] 05-30-2023 Episodic Residual codes; unclassified (1 source) Family history of malignant neoplasm of breast; Translations: [FAMILY HX MALIG NEOPLASM OF BREAST] Onset: 09-24-2022 Episodic Residual codes; unclassified (1 source) Family history of malignant neoplasm of other organs or systems; Translations: [FAM HX MALIG NEOPLASM OTH ORGN/SYS] Onset: 09-24-2022 Episodic Substance-related disorders (16 sources) Nicotine dependence, cigarettes, uncomplicated; Translations: [History of drug abuse] Onset: 09-03-2022 03-21-2023 Chronic Syncope (4 sources) Syncope and collapse; Translations: [SYNCOPE AND COLLAPSE] Onset: 09-13-2022 Episodic Unclassified (4 sources) Unspecified lump in the right breast, overlapping quadrants; Translations: [UNS LUMP RT BREAST OVRLPNG QUADRNTS] Onset: 09-23-2022 Unclassified (1 source) Hereditary motor and sensory neuropathy; Translations: [Hereditary motor and sensory neuropathy] Onset: 03-27-2023 Unclassified (1 source) Alcohol abuse, in remission; Translations: [Alcohol abuse, in remission] Onset: 03-22-2023 Unclassified (1 source) Elevation of levels of liver transaminase levels; Translations: [Elevation of levels of liver transaminase levels] Onset: 03-22-2023 Unclassified (1 source) Supraventricular tachycardia, unspecified; Translations: [Supraventricular tachycardia, unspecified] Onset: 05-08-2023 Unclassified (1 source) Advanced hepatic fibrosis; 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] Onset: 05-14-2023 Past or Other Problems Problem Classification Problem Date Documented Date Episodic/Chronic Administrative/socia l admission (8 sources) Other reduced mobility; Translations: [Impaired mobility and activities of daily living] Onset: 03-27-2023 03-28-2023 Episodic E Codes: Cut/pierceb (1 source) Contact with other sharp object(s), not elsewhere classified, initial encounter; Translations: [[facility] SHRP OB NOT ELSW CLASS INI] Onset: 06-07-2022 Episodic Malaise and fatigue (16 sources) Weakness; Translations: [Asthenia] Onset: 10-16-2022 03-21-2023 Episodic Open wounds of extremities (4 sources) Laceration without foreign body of left index finger without damage to nail, initial encounter; Translations: [LAC W/O FB LT IF W/O DMG NAIL INIT] Onset: 06-05-2022 Episodic Other connective tissue disease (9 sources) Other symptoms and signs involving the musculoskeletal system; Translations: [Other musculoskeletal symptoms referable to limbs] Onset: 03-22-2023 03-22-2023 Episodic Other liver diseases (1 source) Abnormal levels of other serum enzymes; Translations: [Elevated liver enzymes] Onset: 04-12-2023 Episodic Other nervous system disorders (19 sources) Paresthesia of skin; Translations: [Disturbance of skin sensation] Onset: 10-01-2022 Episodic Other nutritional; endocrine; and metabolic disorders (6 sources) Abnormal weight loss; Translations: [Loss of weight] Onset: 03-22-2023 03-22-2023 Episodic Residual codes; unclassified (1 source) Other specified health status; Translations: [Other specified health status] Onset: 03-27-2023 Episodic Unclassified (1 source) Supraventricular tachycardia, unspecified; Translations: [Supraventricular tachycardia, unspecified] Onset: 05-08-2023 Urinary tract infections (15 sources) Urinary tract infectious disease; Translations: [Urinary tract infection, site not specified] Onset: 03-22-2023 03-21-2023 Episodic Results Test Name Value Interpretation Reference Range Facility NURSING PROGon 07-23-2023 NURSING PROG HNO ID: [id number] Author: Dipti Enamorado RN Service: Nursing Author Type: Registered Nurse Type: Nursing Progress Note Filed: 07/23/2023 3:49 PM Note Text: Pre-procedure instructions: Contacted Rica and confirmed appt. for transjugular liver biopsy scheduled on Saturday, 07/30, at [facility]. I will wait while you get a pen and paper, if instructions are not followed your procedure may need to be cancelled or rescheduled. Diet: Do not eat solid food after 5 AM the morning of your procedure You may have water until your arrival time. Medications: IF ok with your Prescribing Provider: RADIOLOGY RECOMMENDS THESE MEDICATION RESTRICTIONS Take all medications as usual. Medication pumps: Insulin pumps must be removed before entering the procedure room. Do you wear Neulasta Onpro? No If yes, the device must be removed before entering the procedure room. Contrast Dye Prep: Do you have a contrast dye allergy? No Labs: Lab work needs to be drawn prior to 07/30 at any [facility]. If the labs are drawn same day as procedure, please report to J1-4 or S-15, 3 hours prior to procedure start time (11:30 AM) to ensure they are resulted by your scheduled start time. Arrival: Please bring your Photo ID and Insurance Card. A general consent may need to be signed. Arrival at 1:00 PM to desk [id number] ([facility]) and check in for your procedure. Clerical Support/Transportation: How will you be arriving for your procedure? Private car. If you will be arriving at [facility] via ambulance or public transportation, please call to discuss. You will need a responsible adult to accompany you to and from the procedure. Your tower truck driver is required to stay with you until you are taken into the Procedure room. If you develop any of the following symptoms before your procedure, please call [phone]. Chills, joint pain, rash, sore throat, cough, loss of smell, reddened eyes, vomiting, abdominal pains, diarrhea, loss of taste, severe headache, weakness, bruising or bleeding, fever, muscle pain, shortness of breath Recovery expectations: You can expect to be at the hospital for the majority of the day. Please do not schedule any other appointments the day of your procedure. Special concerns: Do you use CPAP or BPAP? No If you use CPAP or BiPAP, please call to discuss. Written instructions provided to patient via [employer] If you have any questions please call [phone] ___ Normal [facility] Provider Letteron 07-18-2023 Provider Letter (Inserted Image. Mercedes ble to display) July 18, 2023 RICA STOUT [address] [place] [address] : 1995 Dear Rica, During review of your medical record we noticed that a follow up appointment was not scheduled. We have attempted to reach you to schedule a appointment with [facility]. Please call our office today to schedule this appointment. Sincerely, Meal Mantraus [facility] [phone] Normal [facility] Office Visiton 07-09-2023 Follow-up visit [id number] Louis Stout 1995 F Date Provider Department Center 07/09/2023 NETTIE MARTE SANTANA [facility] Family History Problem Relation Age of Onset Coronary artery disease Maternal Grandmother Peripheral vascular disease Maternal Grandmother Hypertension Paternal Grandmother Atrial fibrillation Paternal Grandmother Family Status - Relation Status Age at Maternal Grandmother Paternal Grandmother Level of Service:[address] [place] OFFICE/OUTPATIENT NEW MODERATE MDM 45 MINUTES Normal [facility] Cryoglobulin with Quant Refl exon 07-03-2023 Cryoglobulin, Ql, Serum Normal None detected [facility] Comment on above: Result Comment: None Detected at 72 hours This test was developed and its performance characteristics determined by [facility]. It has not been cleared or approved by the Food and Drug Administration. Performed at: [facility] [employer] [id number] Protective Service Specialist: Breezy Jones PhD, Phone: [phone] PERFORMED BY: [place] [id number] PATHOLOGIST ANALYSIS MANAGER RUIZ CLIFTON M.D. Performed By: #### C BC, CMP, MG, LDH, [id number] #### [address] #### LEAD,ADULT, KAPPA, SPE, ANCA PROF, SANDRA, CRYOGLOB, HBSAG, CU, HIV SCREEN, RONALD SERUM, PAT, METH, HBSAB, RA, HCBIGM #### [facility] , Immunofixation,Serumon 07-03 Immunofixation, Serum Normal . [facility] Comment on above: Result Comment: No m onoclonality detected. Performed By: #### C BC, CMP, MG, LDH, [id number] #### [place] [address] [place] #### LEAD,ADULT, KAPPA, SPE, ANCA PROF, SANDRA, CRYOGLOB, HBSAG, CU, HIV SCREEN, RONALD SERUM, PAT, METH, HBSAB, RA, HCBIGM #### [facility] , Immunoglobulin A, Serum 473 mg/dL High 87-352 F [facility] Comment on above: Performed By: #### C BC, CMP, MG, LDH, [id number] #### [facility] [address] [place] [address] [place] #### LEAD,ADULT, KAPPA, SPE, ANCA PROF, SANDRA, CRYOGLOB, HBSAG, CU, HIV SCREEN, RONALD SERUM, PAT, METH, HBSAB, RA, HCBIGM #### [facility] , Immunoglobulin G 1101 mg/dL Normal [id number] [facility] Comment on above: Performed By: #### C BC, CMP, MG, LDH, [id number] #### [address] #### LEAD,ADULT, KAPPA, SPE, ANCA PROF, SANDRA, CRYOGLOB, HBSAG, CU, HIV SCREEN, RONALD SERUM, PAT, METH, HBSAB, RA, HCBIGM #### [facility] , Immunoglobulin M, Serum 315 mg/dL High 26-217 F [facility] Comment on above: Result Comment: Perf ormed at: [facility] [id number] Protective Service Specialist: Breezy Jones PhD, Phone: [phone] Performed By: #### C BC, CMP, MG, LDH, [id number] #### [place] [address] [place] #### LEAD,ADULT, KAPPA, SPE, ANCA PROF, SANDRA, CRYOGLOB, HBSAG, CU, HIV SCREEN, RONALD SERUM, PAT, METH, HBSAB, RA, HCBIGM #### [facility] , Zinc, Whole Bloodon 07-03-20 23 Zinc, Whole Blood 606 ug/dL Normal 440-860 [facility] Comment on above: Result Comment: This test was developed and its performance characteristics determined by [facility]. It has not been cleared or approved by the Food and Drug Administration. Performed at: [address] [id number] Protective Service Specialist: Lisa Ramos MD, Phone: [phone] Performed By: #### C BC, CMP, MG, LDH, [id number] #### [address] #### LEAD,ADULT, KAPPA, SPE, ANCA PROF, SANDRA, CRYOGLOB, HBSAG, CU, HIV SCREEN, RONALD SERUM, PAT, METH, HBSAB, RA, HCBIGM #### [facility] , Activated partial thrombopla stin time (aPTT) in platelet poor plasma by coagulation aOrdered By: Jane Tracey on 06-12-2023 aPTT Coag (PPP) [Time] 28.5 s 25.1-36.5 [facility] Comment on above: A hematocrit value g reater than 55% may lead to inaccurate results in coagulation testing. Patients having hematocrit values >55% require a special collection tube for coagulation studies. Please contact the laboratory at [phone] guided bone marrow bx/asp iron 06-12-2023 CT guided bone marrow bx/aspir [facility] [place] [address] [place] [address] CT Scan Report Signed Patient: Rica Stout MR#: [id number] 39 : 1995 Acct:[id number] Age/Sex: 27 / F ADM Date: 06/12/23 Loc: CT Room: Type: [facility] Attending Dr: Jane Tracey MD Copies to: Jane Tracey MD Ordering Provider: Jane Tracey MD Date of Service: 06/12/23 CT/CT guided needle placement: bone marrow biopsy ([id number]) CT/CT guided bone marrow bx/aspir: . CT GUIDED BONE MARROW BIOPSY OF THE RIGHT ILIAC BONE: CLINICAL HISTORY: Possible multiple myeloma. FINDINGS: After questions were answered, informed consent was obtained. The patient was placed prone on the CT table and the right iliac bone was selected for biopsy. The skin over the pelvis was prepped and draped in normal sterile fashion. 1% lidocaine was utilized for local anesthesia. Utilizing CT guidance, an 11-gauge OnControl biopsy needle was advanced into the right iliac bone. 12mL of bone marrow was aspirated and given to pathology. After the sample was deemed adequate by pathology, a core biopsy was obtained and needle was withdrawn. Hemostasis was achieved. Bandage was applied. The patient tolerated procedure well without immediate complication. Please note that the patient was monitored throughout the procedure by nursing personnel. This CT exam was performed using one or more following dose reduction techniques: Automated exposure control, adjustment of the mA and/or kV according to patient size, or use of iterative reconstruction technique. CT/CT guided needle placement IMPRESSION: Successful CT-guided bone marrow biopsy. Impression dictated by: Marc Barahona Jr., Cristel06/12/2023 1:18 PM Dictation Location: [place] [address] Transcribed By: [facility] 06/12/238 Dictated By: Marc Barahona Jr, DO 06/12/231317 Signed By: 06/12/[address] [facility] Coagulation Profileon 2022 aPTT Coag (Bld) [Time] 28.5 s Normal 25.1-36.5 [facility] Comment on above: Order Comment: NEED FOR CT GUIDED BIOPSY Result Comment: A he matocrit value greater than 55% may lead to inaccurate results in coagulation testing. Patients having hematocrit values >55% require a special collection tube for coagulation studies. Please contact the laboratory at [phone] for redraw instructions. PERFORMED BY: [address] [address] PATHOLOGIST ANALYSIS MANAGER RUIZ CLIFTON M.D. Performed By: #### P P, PLT #### [facility] [address] [place], [place] [id number] [facility] INR Coag (PPP) [Relative time] 1.1 {INR} Normal [facility] Comment on above: Order Comment: NEED FOR CT GUIDED BIOPSY Result Comment: INR Therapeutic Range A) Pre- and Peroperative OAT started two weeks before surgery. NOT HIP SURGERY: 1.5 - 2.5 HIP SURGERY: 2 - 3 B) Primary and secondary prevention of venous THROMBOSIS: 2 - 3 C) Active venous thrombosis, pulmonary embolism and prevention of recurrent venous thrombosis: 2 - 3 D) Prevention of arterial thromboembolism including patients with mechanical heart valves: 3 - 4.5 Performed By: #### P P, PLT #### [facility] [address] [place] [address] [place] PT Coag (PPP) [Time] 13.0 s High 9.0-12.9 [facility] Comment on above: Order Comment: NEED FOR CT GUIDED BIOPSY Result Comment: A he matocrit value greater than 55% may lead to inaccurate results in coagulation testing. Patients having hematocrit values >55% require a special collection tube for coagulation studies. Please contact the laboratory at [phone] for redraw instructions. Performed By: #### P P, PLT #### [facility] [address] [place] [address] [place] INR in Platelet poor plasma by Coagulation assayOrdered By: Jane Tracey on 06-12-2023 INR Coag (PPP) [Relative time] 1.1 {INR} [facility] Comment on above: INR Therapeutic Rang e A) Pre- and Peroperative OAT started two weeks before surgery. NOT HIP SURGERY: 1.5 - 2.5 HIP SURGERY: 2 - 3B) Primary and secondary prevention of venous THROMBOSIS: 2 - 3C) Active venous thrombosis, pulmonary embolismand prevention of recurrent venous thrombosis: 2 - 3D) Prevention of arterial thromboembolismincluding patients with mechanical heart valves: 3 - 4.5 Antione 06-12-2023 L ---- Specimen: [id number] Received: 06/12/23 Status: VIKASH Hess Num: [id number] Spec Type: Bone Marro Subm Dr: Marc Barahona Jr, DO Tissues: A Bone Marrow Aspirate (Clot) (RT ILIAC) B Bone Marrow Biopsy/Core (RT ILIAC) Procedures: Reticulum I, Peripheral Smr/2, Iron/3, HE/4, Gross/Micro L4/2, Bm Smear/2, CD138/2, CD20, CD3, CD31, CD34, CD68, E CADHERIN, Decalcification, PAS - Hemat, Bone Marrow TP, GIEMSA STN/5, SMEARS Age/ Patient Sex Location Account Attending Physician Rica Stout 27/F CT [id number] Jane Tracey MD SPEC NUM: [id number] RECD: 06/12/23 STATUS: VIKASH HESS NUM: [id number] LAURIE: 06/12/23- DR: Marc Barahona Jr, DO ENTERED: 06/12/[address] [facility] [address]: Jane Tracey MD SPEC TYPE: Bone Marro DEPT: BM ORDERED: Reticulum I, Peripheral Smr/2, Iron/3, HE/4, Gross/Micro L4/2, Bm Smear/2, CD138/2, CD20, CD3, CD31, CD34, CD68, E CADHERIN, Decalcification, PAS - Hemat, Bone Marrow TP, GIEMSA STN/5, SMEARS ORDERED: Reticulum I, Peripheral Smr/2, Iron/3, HE/4, Gross/Micro L4/2, Bm Smear/2, CD138/2, CD20, CD3, CD31, CD34, CD68, E CADHERIN, USS/11, Decalcification, PAS - Hemat, Bone Marrow TP, GIEMSA STN/5, SMEARS Pathological Diagnosis A and B, right iliac crest CT-guided bone marrow biopsy and aspirate: - Probably slightly or borderline hypocellular marrow for the age (40-60%), showing mild granulocytic predominance and with evidence of trilineage maturations - No evidence of increased blasts or myelodysplastic features identified - Mild reactive plasmacytosis, demonstrating occasional larger plasma cells, and at least occasional binucleated forms - Adequate iron storage at the score 1/4 - Occasional tiny cytoplasmic vacuoles in early basophilic normoblasts or pronormoblasts (See Note) NOTE 1: - The diagnosis of concurrent flow cytometric analysis is No diagnostic immunophenotypic abnormalities detected Specimen: [id number] Received: 06/12/23 Status: VIKASH Hess Num: [id number] Spec Type: Bone Marro Montse Dr: Marc Barahona Jr, DO Tissues: A Bone Marrow Aspirate (Clot) (RT ILIAC) B Bone Marrow Biopsy/Core (RT ILIAC) Procedures: Reticulum I, Peripheral Smr/2, Iron/3, HE/4, Gross/Micro L4/2, Bm Smear/2, CD138/2, CD20, CD3, CD31, CD34, CD68, E CADHERIN, Decalcification, PAS - Hemat, Bone Marrow TP, GIEMSA STN/5, SMEARS Patient: Rica Stout [id number] (Continued) Specimen: [id number] Received: 06/12/23 (Continued) Pathological Diagnosis (Continued) Signed (signature on file) Chin-Nelson Call MD 06/22/23 1844 Specimen: [id number] Received: 06/12/23 Status: VIKASH Hess Num: [id number] Spec Type: Bone Marro Montse Dr: Marc Barahona Jr, DO Tissues: A Bone Marrow Aspirate (Clot) (RT ILIAC) B Bone Marrow Biopsy/Core (RT ILIAC) Procedures: Reticulum I, Peripheral Smr/2, Iron/3, HE/4, Gross/Micro L4/2, Bm Smear/2, CD138/2, CD20, CD3, CD31, CD34, CD68, E CADHERIN, Decalcification, PAS - Hemat, Bone Marrow TP, GIEMSA STN/5, SMEARS Patient: Rica Stout [id number] (Continued) Specimen: [id number] Received: 06/12/23 (Continued) Pathological Diagnosis (Continued) - FISH analysis for plasma cell myeloma panel is normal - FISH analysis for standard MDS panel is normal - The cytogenetics is normal female karyotype : 46, XX[20] NOTE 2: - There is no abnormal amorphous eosinophilic depositions in the adequate spicules of the clot section, excluding possibility of amyloidosis in the examination - The significance of reactive plasmacytosis is not clear in this case, including occasional larger forms of plasma cells that presumably can be responsible for the production and the elevation of the serum IgA and IgM - Continuous clinical correlations and laboratory follow-up are also indicated to be able to stratify the significance of these reactive plasma cells within the marrow - The identification of tiny cyt (more content not included)... Normal [facility] Platelet Counton 06-12-2023 Platelets (Bld) [#/Vol] 269 10*3/uL Normal 150-450 [facility] Comment on above: Result Comment: PERF ORMED BY: [place] [id number] PATHOLOGIST ANALYSIS MANAGER RUIZ CLIFTON M.D. Performed By: #### P P, PLT #### [address] Platelets Auto (Bld) [#/Vol] Ordered By: Jane Tracey on 06-12-2023 Platelets (Bld) [#/Vol] 269 10*3/uL 150-450 [facility] Prothrombin time (PT)Ordered By: Jane Tracey on 06-12-2023 PT Coag (PPP) [Time] 13.0 s 9.0-12.9 [facility] Comment on above: A hematocrit value g reater than 55% may lead to inaccurate results in coagulation testing. Patients having hematocrit values >55% require a special collection tube for coagulation studies. Please contact the laboratory at [phone] for redraw instructions. Office Visiton 06-10-2023 Follow-up visit [id number] Louis Stout 1995 F Date Provider Department Center 06/10/2023 [facility] Family History Problem Relation Age of Onset Coronary artery disease Maternal Grandmother Peripheral vascular disease Maternal Grandmother Hypertension Paternal Grandmother Atrial fibrillation Paternal Grandmother Family Status - Relation Status Age at Maternal Grandmother Paternal Grandmother Level of Service:[address] [place] OFFICE/OUTPATIENT ESTABLISHED MOD MDM 30-39 MIN Normal [facility] PAT Antinuclear Antibodieson 05-30-2023 Antinuclear Abs, IFA Positive Critically abnormal . [facility] Comment on above: Result Comment: Nega tive <1:80 Borderline 1:80 Positive >1:80 Performed By: #### P P, PLT #### [address] [facility] Comment on above: Result Comment: Holly danielle Potential Disease Association Homogeneous Systemic Lupus Erythematosus, Drug Induced Systemic Lupus Erythematosus, Chronic Autoimmune hepatitis, Juvenile Idiopathic Arthritis Speckled Sjogren Syndrome, Systemic Lupus Erythematosus, Subacute Cutaneous Lupus, Lupus, Congenital Heart Block, Mixed Connective Tissue Disease, Scleroderma-diffuse, Scleroderma-Autoimmune Myositis Overlap Syndrome, Systemic Lupus Stqpmefuwifts-Aupyewwegkq-Sghieumwqi Myositis Overlap Syndrome, Systemic Autoimmune Rheumatic Disease, Undifferentiated Connective Tissue Disease Nucleolar Systemic Sclerosis, Scleroderma-Autoimmune Myositis Overlap Syndrome, Sjogren Syndrome, Raynaud phenomenon, Pulmonary Arterial Hypertension, Systemic Autoimmune Rheumatic Disease, Cancer Centromere Scleroderma-CREST, Limited Cutaneous SSc, Raynaud's Phenomenon, Primary Biliary Cholangitis Nuclear Dot Primary Biliary Cholangitis Nuclear Primary Biliary Cholangitis, Autoimmune Membrane Hepatitis/Liver disease, Systemic Autoimmune Rheumatic Disease, Autoimmune Cytopenias, Linear Scleroderma, Antiphospholipid Syndrome Performed at: - [facility], [place], [place] [id number] Protective Service Specialist: Breezy Jones PhD, Phone: [phone] Performed By: #### P P, PLT #### [address] Speckled Pattern 1:160 High . [facility] Comment on above: Result Comment: ICAP nomenclature: AC-2,4,5,29 Performed By: #### P P, PLT #### [address] ANCA Profile (ANCA+MPO+PR3)o n 05-30-2023 Antimyeloperoxidase (MPO) Abs <0.2 Normal 0.0-0.9 [facility] Comment on above: Performed By: #### P P, PLT #### [address] Atypical pANCA <1:20 Normal Neg:<1:20 [facility] Comment on above: Result Comment: The atypical pANCA pattern has been observed in a significant percentage of patients with ulcerative colitis, primary sclerosing cholangitis and autoimmune hepatitis. Performed at: - [facility] [id number] Protective Service Specialist: Lisa Ramos MD, Phone: [phone] Performed at: [facility] [id number] Protective Service Specialist: Breezy Jones PhD, Phone: [phone] Performed By: #### P P, PLT #### [place] [address] [place] Cytoplasmic (C-ANCA) <1:20 Normal Neg:<1:20 [facility] Comment on above: Performed By: #### P P, PLT #### [place] [address] [place] Perinuclear (P-ANCA) <1:20 Normal Neg:<1:20 [facility] Comment on above: Result Comment: The presence of positive fluorescence exhibiting P-ANCA or C-ANCA patterns alone is not specific for the diagnosis of Riri's Granulomatosis (WG) or microscopic polyangiitis. Decisions about treatment should not be based solely on ANCA IFA results. The International ANCA Group Consensus recommends follow up testing of positive sera with both KS- 3 and MPO-ANCA enzyme immunoassays. As many as 5% serum samples are positive only by EIA. Ref. AM J Clin Pathol 1999;111:507-513. Performed By: #### P P, PLT #### [address] Proteinase 3 (PR3) Antibodies <0.2 Normal 0.0-0.9 [facility] Comment on above: Result Comment: PERF ORMED BY: [place] [id number] PATHOLOGIST ANALYSIS MANAGER RUIZ CLIFTON M.D. Performed By: #### P P, PLT #### [facility] [address] [place] [address] [place] Alanine aminotransferase [En zymatic activity/volume] in Serum or PlasmaOrdered By: Jane Tracey on 05-30-2023 ALT [Catalytic activity/Vol] 24 U/L 7-52 [facility] Albumin [Mass/volume] in Ser um or PlasmaOrdered By: Jane Tracey on 05-30-2023 Albumin [Mass/Vol] 4.1 g/dL 2.9-4.4 [facility] Albumin [Mass/volume] in Ser um or Plasma by Bromocresol green (BCG) dye binding methoOrdered By: valorie Tracey on 05-30-2023 Albumin BCG dye [Mass/Vol] 5.2 g/dL 3.5-5.7 [facility] Alkaline phosphatase [Enzyma tic activity/volume] in Serum or PlasmaOrdered By: Jane Tracey on 05-30-2023 ALP [Catalytic activity/Vol] 115 U/L 34-104 [facility] Angiotensin Converting Enzym wander 05-30-2023 Angiotensin converting enzyme [Catalytic activity/Vol] 61 U/L Normal 14-82 [facility] Comment on above: Result Comment: Perf ormed at: - [facility] [address] [id number] Protective Service Specialist: Breezy Jones PhD, Phone: [phone] Performed By: #### P P, PLT #### [place] [id number] [place] Aspartate aminotransferase [ Enzymatic activity/volume] in Serum or PlasmaOrdered By: Jane Tracey on 05-30-2023 AST [Catalytic activity/Vol] 32 U/L 13-39 [facility] Atypical perinuclear antineu trophil cytoplasmic antibodies measurementOrdered By: Jane Tracey on 05-30-2023 Neutrophil cytoplasmic Ab.perinuclear.atypical IF (S) [Titer] <1:20 titer Neg:<1:20 [facility] Comment on above: The atypical pANCA p attern has been observed in asignificant percentage of patients with ulcerative colitis,primary sclerosing cholangitis and autoimmune hepatitis.Performed at: [address] [id number] Director: Lisa Ramos MD, Phone: [phone] at: [address] [id number] Director: Breezy Jones PhD, Phone: [phone] Basophils Auto (Bld) [#/Vol] Ordered By: valorie Tracey on 05-30-2023 Basophils (Bld) [#/Vol] 0.2 10*3/uL 0.0-0.2 [facility] Basophils/100 WBC Auto (Bld) Ordered By: valorie Tracey on 05-30-2023 Basophils/100 WBC (Bld) 1.5 % . [facility] Bilirubin.total [Mass/volume ] in Serum or PlasmaOrdered By: Jane Tracey on 05-30-2023 Bilirubin [Mass/Vol] 0.5 mg/dL 0.3-1.0 [facility] Blood lead detectionOrdered By: valorie Tracey on 05-30-2023 Lead Ql (Bld) <1.0 ug/dL 0.0-3.4 [facility] Comment on above: Testing performed by Inductively coupled plasma/MassSpectrometry.Analysis by inductively coupled plasma/massspectrometry (ICP/MS)This test was developed and its performance characteristicsdetermined by [facility]. It has not been cleared orapproved by the Food and Drug Administration. Environmental Exposure: WHO Recommendation <5.0 Occupational Exposure: OSHA Lead Std 40.0 OLIVE 30.0 Detection Limit = 1.0Performed at: [facility] [employer] [id number] Director: Breezy Jones PhD, Phone: [phone] Calcium [Mass/volume] in Ser um or PlasmaOrdered By: Jane Tracey on 05-30-2023 Calcium [Mass/Vol] 10.4 mg/dL 8.6-10.3 [facility] Carbon dioxide, total [Moles /volume] in Serum or PlasmaOrdered By: valorie Condon on 05-30-2023 CO2 [Moles/Vol] 24.8 mmol/L 21.0-31.0 [facility] Chloride [Moles/volume] in S caitlyn or PlasmaOrdered By: valorie Tracey on 05-30-2023 Chloride [Moles/Vol] 99 mmol/L 98-107 [facility] Complete Blood Count Auto Di ffon 05-30-2023 Basophils (Bld) [#/Vol] 0.2 10*3/uL Normal 0.0-0.2 [facility] Comment on above: Result Comment: PERF ORMED BY: [address] [place] [address] PATHOLOGIST ANALYSIS MANAGER RUIZ CLIFTON M.D. Performed By: #### C BC, CMP, MG, LDH, [id number] #### [facility] [address] [place] [address] #### LEAD,ADULT, KAPPA, SPE, ANCA PROF, SANDRA, CRYOGLOB, HBSAG, CU, HIV SCREEN, RONALD SERUM, PAT, METH, HBSAB, RA, HCBIGM #### [facility] , Basophils/100 WBC (Bld) 1.5 % Normal . [facility] Comment on above: Performed By: #### C BC, CMP, MG, LDH, [id number] #### [facility] [address] [place] [address] [place] #### LEAD,ADULT, KAPPA, SPE, ANCA PROF, SANDRA, CRYOGLOB, HBSAG, CU, HIV SCREEN, RONALD SERUM, PAT, METH, HBSAB, RA, HCBIGM #### [facility] , Eosinophils (Bld) [#/Vol] 0.1 10*3/uL Normal 0.0-0.45 [facility] Comment on above: Performed By: #### C BC, CMP, MG, LDH, [id number] #### [address] #### LEAD,ADULT, KAPPA, SPE, ANCA PROF, SANDRA, CRYOGLOB, HBSAG, CU, HIV SCREEN, RONALD SERUM, PAT, METH, HBSAB, RA, HCBIGM #### [facility] , Eosinophils/100 WBC (Bld) 0.9 % Normal . [facility] Comment on above: Performed By: #### C BC, CMP, MG, LDH, [id number] #### [address] #### LEAD,ADULT, KAPPA, SPE, ANCA PROF, SANDRA, CRYOGLOB, HBSAG, CU, HIV SCREEN, RONALD SERUM, PAT, METH, HBSAB, RA, HCBIGM #### [facility] , Erythrocyte distribution width (RBC) [Ratio] 12.8 % Normal 11.9-15.3 [facility] Comment on above: Performed By: #### C BC, CMP, MG, LDH, [id number] #### [place] [address] [place] #### LEAD,ADULT, KAPPA, SPE, ANCA PROF, SANDRA, CRYOGLOB, HBSAG, CU, HIV SCREEN, RONALD SERUM, PAT, METH, HBSAB, RA, HCBIGM #### [facility] , Hematocrit (Bld) [Volume fraction] 47.6 % High 34.0-46.4 [facility] Comment on above: Performed By: #### C BC, CMP, MG, LDH, [id number] #### [place] [address] [place] #### LEAD,ADULT, KAPPA, SPE, ANCA PROF, SANDRA, CRYOGLOB, HBSAG, CU, HIV SCREEN, RONALD SERUM, PAT, METH, HBSAB, RA, HCBIGM #### [facility] , Hemoglobin (Bld) [Mass/Vol] 16.3 g/dL High 11.8-15.4 [facility] Comment on above: Performed By: #### C BC, CMP, MG, LDH, [id number] #### [address] #### LEAD,ADULT, KAPPA, SPE, ANCA PROF, SANDRA, CRYOGLOB, HBSAG, CU, HIV SCREEN, RONALD SERUM, PAT, METH, HBSAB, RA, HCBIGM #### [facility] , Lymphocytes (Bld) [#/Vol] 2.9 10*3/uL Normal 1.00-4.8 [facility] Comment on above: Performed By: #### C BC, CMP, MG, LDH, [id number] #### [place] [address] [place] #### LEAD,ADULT, KAPPA, SPE, ANCA PROF, SANDRA, CRYOGLOB, HBSAG, CU, HIV SCREEN, RONALD SERUM, PAT, METH, HBSAB, RA, HCBIGM #### [facility] , Lymphocytes/100 WBC (Bld) 28.7 % Normal . [facility] Comment on above: Performed By: #### C BC, CMP, MG, LDH, [id number] #### [place] [address] [place] #### LEAD,ADULT, KAPPA, SPE, ANCA PROF, SANDRA, CRYOGLOB, HBSAG, CU, HIV SCREEN, RONALD SERUM, PAT, METH, HBSAB, RA, HCBIGM #### [facility] , MCH (RBC) [Entitic mass] 32.5 pg Normal 24.7-34.3 [facility] Comment on above: Performed By: #### C BC, CMP, MG, LDH, [id number] #### [place] [address] [place] #### LEAD,ADULT, KAPPA, SPE, ANCA PROF, SANDRA, CRYOGLOB, HBSAG, CU, HIV SCREEN, RONALD SERUM, PAT, METH, HBSAB, RA, HCBIGM #### [facility] , MCV (RBC) [Entitic vol] 95.0 fL Normal 80-100 F [facility] Comment on above: Performed By: #### C BC, CMP, MG, LDH, [id number] #### [address] #### LEAD,ADULT, KAPPA, SPE, ANCA PROF, SANDRA, CRYOGLOB, HBSAG, CU, HIV SCREEN, RONALD SERUM, PAT, METH, HBSAB, RA, HCBIGM #### [facility] , Mean Corpuscular HGB Conc 34.2 g/dL Normal 32.0-35.0 [facility] Comment on above: Performed By: #### C BC, CMP, MG, LDH, [id number] #### [address] #### LEAD,ADULT, KAPPA, SPE, ANCA PROF, SANDRA, CRYOGLOB, HBSAG, CU, HIV SCREEN, RONALD SERUM, PAT, METH, HBSAB, RA, HCBIGM #### [facility] , Monocytes (Bld) [#/Vol] 0.2 10*3/uL Normal 0.0-0.8 [facility] Comment on above: Performed By: #### C BC, CMP, MG, LDH, [id number] #### [place] [address] [place] #### LEAD,ADULT, KAPPA, SPE, ANCA PROF, SANDRA, CRYOGLOB, HBSAG, CU, HIV SCREEN, RONALD SERUM, PAT, METH, HBSAB, RA, HCBIGM #### [facility] , Monocytes/100 WBC (Bld) 2.2 % Normal . [facility] Comment on above: Performed By: #### C BC, CMP, MG, LDH, [id number] #### [place] [address] [place] #### LEAD,ADULT, KAPPA, SPE, ANCA PROF, SANDRA, CRYOGLOB, HBSAG, CU, HIV SCREEN, RONALD SERUM, PAT, METH, HBSAB, RA, HCBIGM #### [facility] , Neutrophils (Bld) [#/Vol] 6.7 10*3/uL Normal 1.8-7.7 [facility] Comment on above: Performed By: #### C BC, CMP, MG, LDH, [id number] #### [address] #### LEAD,ADULT, KAPPA, SPE, ANCA PROF, SANDRA, CRYOGLOB, HBSAG, CU, HIV SCREEN, RONALD SERUM, PAT, METH, HBSAB, RA, HCBIGM #### [facility] , Neutrophils/100 WBC (Bld) 66.7 % Normal . [facility] Comment on above: Performed By: #### C BC, CMP, MG, LDH, [id number] #### [address] #### LEAD,ADULT, KAPPA, SPE, ANCA PROF, SANDRA, CRYOGLOB, HBSAG, CU, HIV SCREEN, RONALD SERUM, PAT, METH, HBSAB, RA, HCBIGM #### [facility] , NRBC% 0.1 /100{WBC} Normal 0-0.5 [facility] Comment on above: Performed By: #### C BC, CMP, MG, LDH, [id number] #### [facility] [address] [place] [address] #### LEAD,ADULT, KAPPA, SPE, ANCA PROF, SANDRA, CRYOGLOB, HBSAG, CU, HIV SCREEN, RONALD SERUM, PAT, METH, HBSAB, RA, HCBIGM #### [facility] , Platelet mean volume (Bld) [Entitic vol] 7.6 fL Normal 6.3-10.7 [facility] Comment on above: Performed By: #### C BC, CMP, MG, LDH, [id number] #### [address] [place] [address] [place] #### LEAD,ADULT, KAPPA, SPE, ANCA PROF, SANDRA, CRYOGLOB, HBSAG, CU, HIV SCREEN, RONALD SERUM, PAT, METH, HBSAB, RA, HCBIGM #### [facility] , Platelets (Bld) [#/Vol] 325 10*3/uL Normal 150-450 [facility] Comment on above: Performed By: #### C BC, CMP, MG, LDH, [id number] #### [address] #### LEAD,ADULT, KAPPA, SPE, ANCA PROF, SANDRA, CRYOGLOB, HBSAG, CU, HIV SCREEN, RONALD SERUM, PAT, METH, HBSAB, RA, HCBIGM #### [facility] , RBC (Bld) [#/Vol] 5.00 10*6/uL Normal 3.60-5.00 [facility] Comment on above: Performed By: #### C BC, CMP, MG, LDH, [id number] #### [place] [address] [place] #### LEAD,ADULT, KAPPA, SPE, ANCA PROF, SANDRA, CRYOGLOB, HBSAG, CU, HIV SCREEN, RONALD SERUM, PAT, METH, HBSAB, RA, HCBIGM #### [facility] , WBC (Bld) [#/Vol] 10.1 10*3/uL Normal 3.8-11.6 [facility] Comment on above: Performed By: #### C BC, CMP, MG, LDH, [id number] #### [place] [address] [place] #### LEAD,ADULT, KAPPA, SPE, ANCA PROF, SANDRA, CRYOGLOB, HBSAG, CU, HIV SCREEN, RONALD SERUM, PAT, METH, HBSAB, RA, HCBIGM #### [facility] , Comprehensive Metabolic Pane antione 05-30-2023 Albumin [Mass/Vol] 5.2 g/dL Normal 3.5-5.7 [facility] Comment on above: Performed By: #### C BC, CMP, MG, LDH, [id number] #### [place] [address] [place] #### LEAD,ADULT, KAPPA, SPE, ANCA PROF, SANDRA, CRYOGLOB, HBSAG, CU, HIV SCREEN, RONALD SERUM, PAT, METH, HBSAB, RA, HCBIGM #### [facility] , Albumin/Globulin [Mass ratio] 1.4 {ratio} Normal [facility] Comment on above: Performed By: #### C BC, CMP, MG, LDH, [id number] #### [place] [address] [place] #### LEAD,ADULT, KAPPA, SPE, ANCA PROF, SANDRA, CRYOGLOB, HBSAG, CU, HIV SCREEN, RONALD SERUM, PAT, METH, HBSAB, RA, HCBIGM #### [facility] , ALP [Catalytic activity/Vol] 115 U/L High 34-104 [facility] Comment on above: Performed By: #### C BC, CMP, MG, LDH, [id number] #### [place] [address] [place] #### LEAD,ADULT, KAPPA, SPE, ANCA PROF, SANDRA, CRYOGLOB, HBSAG, CU, HIV SCREEN, RONALD SERUM, PAT, METH, HBSAB, RA, HCBIGM #### [facility] , ALT [Catalytic activity/Vol] 24 U/L Normal 7-52 [facility] Comment on above: Performed By: #### C BC, CMP, MG, LDH, [id number] #### [facility] [address] [place] [address] [place] #### LEAD,ADULT, KAPPA, SPE, ANCA PROF, SANDRA, CRYOGLOB, HBSAG, CU, HIV SCREEN, RONALD SERUM, PAT, METH, HBSAB, RA, HCBIGM #### [facility] , Anion gap [Moles/Vol] 17.6 mmol/L High 6.0-15.0 [facility] Comment on above: Performed By: #### C BC, CMP, MG, LDH, [id number] #### [address] #### LEAD,ADULT, KAPPA, SPE, ANCA PROF, SANDRA, CRYOGLOB, HBSAG, CU, HIV SCREEN, RONALD SERUM, PAT, METH, HBSAB, RA, HCBIGM #### [facility] , AST [Catalytic activity/Vol] 32 U/L Normal 13-39 [facility] Comment on above: Performed By: #### C BC, CMP, MG, LDH, [id number] #### [address] #### LEAD,ADULT, KAPPA, SPE, ANCA PROF, SANDRA, CRYOGLOB, HBSAG, CU, HIV SCREEN, RONALD SERUM, PAT, METH, HBSAB, RA, HCBIGM #### [facility] , Bilirubin [Mass/Vol] 0.5 mg/dL Normal 0.3-1.0 [facility] Comment on above: Performed By: #### C BC, CMP, MG, LDH, [id number] #### [place] [address] [place] #### LEAD,ADULT, KAPPA, SPE, ANCA PROF, SANDRA, CRYOGLOB, HBSAG, CU, HIV SCREEN, RONALD SERUM, PAT, METH, HBSAB, RA, HCBIGM #### [facility] , Calcium [Mass/Vol] 10.4 mg/dL High 8.6-10.3 [facility] Comment on above: Performed By: #### C BC, CMP, MG, LDH, [id number] #### [facility] [address] [place] [address] [place] #### LEAD,ADULT, KAPPA, SPE, ANCA PROF, SANDRA, CRYOGLOB, HBSAG, CU, HIV SCREEN, RONALD SERUM, PAT, METH, HBSAB, RA, HCBIGM #### [facility] , Chloride [Moles/Vol] 99 mmol/L Normal 98-107 [facility] Comment on above: Performed By: #### C BC, CMP, MG, LDH, [id number] #### [facility] [address] [place] [address] #### LEAD,ADULT, KAPPA, SPE, ANCA PROF, SANDRA, CRYOGLOB, HBSAG, CU, HIV SCREEN, RONALD SERUM, PAT, METH, HBSAB, RA, HCBIGM #### [facility] , CO2 [Moles/Vol] 24.8 mmol/L Normal 21.0-31.0 [facility] Comment on above: Performed By: #### C BC, CMP, MG, LDH, [id number] #### [address] #### LEAD,ADULT, KAPPA, SPE, ANCA PROF, SANDRA, CRYOGLOB, HBSAG, CU, HIV SCREEN, RONALD SERUM, PAT, METH, HBSAB, RA, HCBIGM #### [facility] , Creatinine [Mass/Vol] 0.67 mg/dL Normal 0.60-1.20 [facility] Comment on above: Performed By: #### C BC, CMP, MG, LDH, [id number] #### [facility] [address] [place] [address] [place] #### LEAD,ADULT, KAPPA, SPE, ANCA PROF, SANDRA, CRYOGLOB, HBSAG, CU, HIV SCREEN, RONALD SERUM, PAT, METH, HBSAB, RA, HCBIGM #### [facility] , Creatinine Clr Calc Pharmacy 108.[address] [facility] Comment on above: Performed By: #### C BC, CMP, MG, LDH, [id number] #### [facility] [address] [place] [address] [place] #### LEAD,ADULT, KAPPA, SPE, ANCA PROF, SANDRA, CRYOGLOB, HBSAG, CU, HIV SCREEN, RONALD SERUM, PAT, METH, HBSAB, RA, HCBIGM #### [facility] , GFR/1.73 sq M.predicted MDRD (S/P/Bld) [Vol rate/Area] mL/min/{1.73_m2} Normal [facility] Comment on above: Performed By: #### C BC, CMP, MG, LDH, [id number] #### [address] #### LEAD,ADULT, KAPPA, SPE, ANCA PROF, SANDRA, CRYOGLOB, HBSAG, CU, HIV SCREEN, RONALD SERUM, PAT, METH, HBSAB, RA, HCBIGM #### [facility] , Globulin (S) [Mass/Vol] 3.8 g/dL Normal [facility] Comment on above: Performed By: #### C BC, CMP, MG, LDH, [id number] #### [address] #### LEAD,ADULT, KAPPA, SPE, ANCA PROF, SANDRA, CRYOGLOB, HBSAG, CU, HIV SCREEN, RONALD SERUM, PAT, METH, HBSAB, RA, HCBIGM #### [facility] , Glucose [Mass/Vol] 97 mg/dL Normal 70-100 [facility] Comment on above: Result Comment: [place] Glucose Reference Range is dependent on time and content of last meal. Glucose of more than 200 mg/dL in a nonstressed, ambulatory subject supports the diagnosis of Diabetes Mellitus. ADA recommended reference range Performed By: #### C BC, CMP, MG, LDH, [id number] #### [place] [address] [place] #### LEAD,ADULT, KAPPA, SPE, ANCA PROF, SANDRA, CRYOGLOB, HBSAG, CU, HIV SCREEN, RONALD SERUM, PAT, METH, HBSAB, RA, HCBIGM #### [facility] , Potassium [Moles/Vol] 3.4 mmol/L Low 3.5-5.1 [facility] Comment on above: Performed By: #### C BC, CMP, MG, LDH, [id number] #### [place] [address] [place] #### LEAD,ADULT, KAPPA, SPE, ANCA PROF, SANDRA, CRYOGLOB, HBSAG, CU, HIV SCREEN, RONALD SERUM, PAT, METH, HBSAB, RA, HCBIGM #### [facility] , Protein [Mass/Vol] 9.0 g/dL High 6.4-8.9 [facility] Comment on above: Performed By: #### C BC, CMP, MG, LDH, [id number] #### [place] [address] [place] #### LEAD,ADULT, KAPPA, SPE, ANCA PROF, SANDRA, CRYOGLOB, HBSAG, CU, HIV SCREEN, RONALD SERUM, PAT, METH, HBSAB, RA, HCBIGM #### [facility] , Sodium [Moles/Vol] 138 mmol/L Normal 136-145 [facility] Comment on above: Performed By: #### C BC, CMP, MG, LDH, [id number] #### [place] [address] [place] #### LEAD,ADULT, KAPPA, SPE, ANCA PROF, SANDRA, CRYOGLOB, HBSAG, CU, HIV SCREEN, RONALD SERUM, PAT, METH, HBSAB, RA, HCBIGM #### [facility] , Urea nitrogen [Mass/Vol] 9 mg/dL Normal 7-25 [facility] Comment on above: Performed By: #### C BC, CMP, MG, LDH, [id number] #### [place] [id number] [place] #### LEAD,ADULT, KAPPA, SPE, ANCA PROF, SANDRA, CRYOGLOB, HBSAG, CU, HIV SCREEN, RONALD SERUM, PAT, METH, HBSAB, RA, HCBIGM #### [facility] , Copperon 05-30-2023 Copper 124 ug/dL Normal 80-158 [facility] Comment on above: Result Comment: This test was developed and its performance characteristics determined by [facility]. It has not been cleared or approved by the Food and Drug Administration. Detection Limit = 5 Performed at: [facility], [place], [place] [id number] Protective Service Specialist: Lisa Ramos MD, Phone: [phone] Performed By: #### P P, PLT #### [facility] [address] [place] [id number] [facility] Creatinine [Mass/volume] in Serum or PlasmaOrdered By: Jane Tracey on 05-30-2023 Creatinine [Mass/Vol] 0.67 mg/dL 0.60-1.20 [facility] Cryoglobulin with Quant Refl exon 05-30-2023 Cryoglobulin, Ql, Serum Normal . [facility] Comment on above: Result Comment: Test not performed. Insufficient specimen to perform or complete analysis. contacted your facility on 06-04-2023 This test was developed and its performance characteristics determined by [facility]. It has not been cleared or approved by the Food and Drug Administration. Performed By: #### P P, PLT #### [facility] [address] [place] [address] [place] Eosinophils Auto (Bld) [#/Vo l]Ordered By: Jane Tracey on 05-30-2023 Eosinophils (Bld) [#/Vol] 0.1 10*3/uL 0.0-0.45 [facility] Eosinophils/100 WBC Auto (Bl d)Ordered By: valorie Tracey on 05-30-2023 Eosinophils/100 WBC (Bld) 0.9 % . [facility] Erythrocyte distribution wid th Auto (RBC) [Ratio]Ordered By: Jane Tracey on 05-30-2023 Erythrocyte distribution width (RBC) [Ratio] 12.8 % 11.9-15.3 [facility] Folate [Mass/volume] in Seru m or PlasmaOrdered By: Jane Tracey on 05-30-2023 Folate [Mass/Vol] 1.3 ng/mL >5.9 [facility] Comment on above: Folate reference ran ge: >5.9 ng/mlThe WHO technical consultation on folate and vitamin [id number] has determined that folate concentrations lessthan 4 ng/ml are considered deficient. Free K+L LT Chains, Qn, Son 05-30-2023 Free [place] Light Chains, S 20.9 mg/L High 3.3-19.4 [facility] Comment on above: Performed By: #### P P, PLT #### [facility] [address] [place] [id number] [place] Free Lambda Light Chains, S 19.4 mg/L Normal 5.7-26.3 [facility] Comment on above: Performed By: #### P P, PLT #### [facility] [address] [place]/Lambda Ratio, S 1.08 Normal 0.26-1.65 [facility] Comment on above: Result Comment: Perf ormed at: [employer] [id number] Protective Service Specialist: Breezy Jones PhD, Phone: [phone] Performed By: #### P P, PLT #### [facility] [address] [place] [id number] [place] Globulin Calc (S) [Mass/Vol] Ordered By: Jane Tracey on 05-30-2023 Globulin (S) [Mass/Vol] 3.8 g/dL [facility] Glucose [Mass/volume] in Ser um or PlasmaOrdered By: Jane Tracey on 05-30-2023 Glucose [Mass/Vol] 97 mg/dL 70-100 [facility] Comment on above: ADA recommended refe rence rangeRandom Glucose Reference Range is dependent on time and content of last meal. Glucose of more than 200 mg/dL in a nonstressed, ambulatory subject supports the diagnosis of Diabetes Mellitus. HIV 1/O/2 Antigen/Antibodyon 05-30-2023 HIV Screen 4th Generation Non-Reactive Normal Non Reactive [facility] Comment on above: Result Comment: HIV Negative HIV-1/HIV-2 antibodies and HIV-1 p24 antigen were NOT detected. There is no laboratory evidence of HIV infection. Performed at: [employer] [id number] Protective Service Specialist: Breezy Jones PhD, Phone: [phone] Performed By: #### P P, PLT #### [facility] [address] [place] [address] HIV 1 and HIV-2 antibody ass ay with HIV-1 p24 antigen detectionOrdered By: Jane Tracey on 05-30-2023 HIV 1+2 Ab+HIV1 p24 Ag IA Ql Non-Reactive Non Reactive [facility] Comment on above: HIV NegativeHIV-1/HI V-2 antibodies and HIV-1 p24 antigen were NOTdetected. There is no laboratory evidence of HIV infection.Performed at: [employer] [id number] Director: Breezy Jones PhD, Phone: [phone] Hematocrit Auto (Bld) [Volum e fraction]Ordered By: Jane Tracey on 05-30-2023 Hematocrit (Bld) [Volume fraction] 47.6 % 34.0-46.4 [facility] Hemoglobin [Mass/volume] in BloodOrdered By: Jane Tracey on 05-30-2023 Hemoglobin (Bld) [Mass/Vol] 16.3 g/dL 11.8-15.4 [facility] Hepatitis B Core Antibody Ig Mon 05-30-2023 Hepatitis B Core Antibody IgM Negative Normal Negative [facility] Comment on above: Result Comment: Perf ormed at: [employer] [id number] Protective Service Specialist: Breezy Jones PhD, Phone: [phone] Performed By: #### C BC, CMP, MG, LDH, [id number] #### [facility] [address] [place] [address] #### LEAD,ADULT, KAPPA, SPE, ANCA PROF, SANDRA, CRYOGLOB, HBSAG, CU, HIV SCREEN, RONALD SERUM, PAT, METH, HBSAB, RA, HCBIGM #### [facility] , Hepatitis B Surface Antibody on 05-30-2023 Hepatitis B Surface Antibody Reactive Normal . [facility] Comment on above: Result Comment: Non Reactive: Inconsistent with immunity, less than 10 mIU/mL Reactive: Consistent with immunity, greater than 9.9 mIU/mL Performed By: #### C BC, CMP, MG, LDH, [id number] #### [facility] [address] [place] [address] #### LEAD,ADULT, KAPPA, SPE, ANCA PROF, SANDRA, CRYOGLOB, HBSAG, CU, HIV SCREEN, RONALD SERUM, PAT, METH, HBSAB, RA, HCBIGM #### [facility] , Hepatitis B Surface Antigeno n 05-30-2023 HBsAg Screen Negative Normal Negative [facility] Comment on above: Result Comment: PERF ORMED BY: [place] [id number] PATHOLOGIST ANALYSIS MANAGER RUIZ CLIFTON M.D. Performed By: #### P P, PLT #### [facility] [address] [place] [address] Hepatitis B virus surface Ag [Presence] in Serum or Plasma by ImmunoassayOrdered By: Jane Tracey on 05-30-2023 HBV surface Ag IA Ql Negative Negative [facility] IgA [Mass/volume] in Serum o r PlasmaOrdered By: Jane Tracey on 05-30-2023 IgA [Mass/Vol] 539 mg/dL 87-352 [facility] IgG [Mass/volume] in Serum o r PlasmaOrdered By: Jane Tracey on 05-30-2023 IgG [Mass/Vol] 1365 mg/dL 586-1602 [facility] IgM [Mass/volume] in Serum o r PlasmaOrdered By: valorie Tracey on 05-30-2023 IgM [Mass/Vol] 352 mg/dL 26-217 [facility] Comment on above: Performed at: [address] [id number] Director: Breezy Jones PhD, Phone: [phone] Immunofixation,Serumon 05-30 Immunofixation, Serum Normal . [facility] Comment on above: Result Comment: No m onoclonality detected. Performed By: #### P P, PLT #### [facility] [address] [place] [id number] [place] Immunoglobulin A, Serum 539 mg/dL High 87-352 [facility] Comment on above: Performed By: #### P P, PLT #### [facility] [address] [place] [id number] [facility] Immunoglobulin G 1365 mg/dL Normal 586-1602 [facility] Comment on above: Performed By: #### P P, PLT #### [facility] [address] [place] [id number] [place] Immunoglobulin M, Serum 352 mg/dL High 26-217 [facility] Comment on above: Result Comment: Perf ormed at: - [facility] [address] [id number] Protective Service Specialist: Breezy Jones PhD, Phone: [phone] Performed By: #### P P, PLT #### [facility] [address] Immunoglobulin light chains. kappa.free [Mass/volume] in SerumOrdered By: Jane Tracey on 05-30-2023 Immunoglobulin light chains.kappa.free (S) [Mass/Vol] 20.9 mg/L 3.3-19.4 [facility] Immunoglobulin light chains. kappa.free/Immunoglobulin light chains.lambda.free [MassOrdered By: valorie Tracey on 05-30-2023 Immunoglobulin light chains.kappa.free/Immun oglobulin light chains.lambda.free (S) [Mass ratio] 1.08 0.26-1.65 [facility] Comment on above: Performed at: [facility] [id number] [place] [id number] Director: Breezy Jones PhD, Phone: [phone] Immunoglobulin light chains. lambda.free [Mass/volume] in Serum or PlasmaOrdered By: valorie Tracey on 05-30-2023 Immunoglobulin light chains.lambda.free [Mass/Vol] 19.4 mg/L 5.7-26.3 [facility] LDH Lactate Dehydrogenaseon 05-30-2023 LDH Lactate Dehydrogenase 219 U/L Normal 140-271 [facility] Comment on above: Performed By: #### C BC, CMP, MG, LDH, [id number] #### [facility] [address] #### LEAD,ADULT, KAPPA, SPE, ANCA PROF, SANDRA, CRYOGLOB, HBSAG, CU, HIV SCREEN, RONALD SERUM, PAT, METH, HBSAB, RA, HCBIGM #### [facility] , Lactate dehydrogenase [Enzym atic activity/volume] in Serum or Plasma by Lactate to pyOrdered By: Jane Tracey on 05-30-2023 LDH Lactate to pyruvate reaction [Catalytic activity/Vol] 219 U/L 140-271 [facility] Lead, Adulton 05-30-2023 Lead-Adult Blood <1.0 Normal 0.0-3.4 [facility] Comment on above: Result Comment: Test ing performed by Inductively coupled plasma/Mass Spectrometry. Analysis by inductively coupled plasma/mass spectrometry (ICP/MS) This test was developed and its performance characteristics determined by [employer]. It has not been cleared or approved by the Food and Drug Administration. Environmental Exposure: WHO Recommendation <5.0 Occupational Exposure: OSHA Lead Std 40.0 OLIVE 30.0 Detection Limit = 1.0 Performed at: [address] [id number] Protective Service Specialist: Breezy Jones PhD, Phone: [phone] Performed By: #### P P, PLT #### [facility] [address] [place] [address] Leukocytes [#/volume] correc antoine for nucleated erythrocytes in Blood by Automated counOrdered By: Jane Tracey on 05-30-2023 WBC corrected for nucl RBC Auto (Bld) [#/Vol] 10.1 10*3/uL 3.8-11.6 [facility] Lymphocytes Auto (Bld) [#/Vo l]Ordered By: Jane Tracey on 05-30-2023 Lymphocytes (Bld) [#/Vol] 2.9 10*3/uL 1.00-4.8 [facility] Lymphocytes/100 WBC Auto (Bl d)Ordered By: Jane Tracey on 05-30-2023 Lymphocytes/100 WBC (Bld) 28.7 % . [facility] MCH Auto (RBC) [Entitic mass ]Ordered By: Jane Tracey on 05-30-2023 MCH (RBC) [Entitic mass] 32.5 pg 24.7-34.3 [facility] MCHC Auto (RBC) [Mass/Vol]Or dered By: Jane Tracey on 05-30-2023 MCHC (RBC) [Mass/Vol] 34.2 g/dL 32.0-35.0 [facility] MCV Auto (RBC) [Entitic vol] Ordered By: Jane Tracey on 05-30-2023 MCV (RBC) [Entitic vol] 95.0 fL 80-100 [facility] Magnesiumon 05-30-2023 Magnesium [Mass/Vol] 1.9 mg/dL Normal 1.9-2.7 [facility] Comment on above: Performed By: #### C BC, CMP, MG, LDH, [id number] #### [facility] [address] #### LEAD,ADULT, KAPPA, SPE, ANCA PROF, SANDRA, CRYOGLOB, HBSAG, CU, HIV SCREEN, RONALD SERUM, PAT, METH, HBSAB, RA, HCBIGM #### [facility] , Magnesium [Mass/volume] in S caitlyn or PlasmaOrdered By: Jane Tracey on 05-30-2023 Magnesium [Mass/Vol] 1.9 mg/dL 1.9-2.7 [facility] Methylmalonic Acidon 023 Methylmalonic Acid 99 Normal 0-378 [facility] Comment on above: Result Comment: This test was developed and its performance characteristics determined by [facility]. It has not been cleared or approved by the Food and Drug Administration. Performed at: - [facility] [id number] Protective Service Specialist: Lisa Ramos MD, Phone: [phone] Performed By: #### P P, PLT #### [facility] [address] Monocyte %Ordered By: Jane Ying on 05-30-2023 Monocyte % 124 ug/dL 80-158 [facility] Comment on above: This test was develo ped and its performance characteristicsdetermined by [facility]. It has not been cleared orapproved by the Food and Drug Administration. Detection Limit = 5Performed at: [address] [id number] Director: Lisa Ramos MD, Phone: [phone] Monocytes Auto (Bld) [#/Vol] Ordered By: Jane Tracey on 05-30-2023 Monocytes (Bld) [#/Vol] 0.2 10*3/uL 0.0-0.8 [facility] Monocytes/100 WBC Auto (Bld) Ordered By: Jane Tracey on 05-30-2023 Monocytes/100 WBC (Bld) 2.2 % . [facility] Myeloperoxidase Ab [Units/vo lume] in Serum by ImmunoassayOrdered By: Jane Condon on 05-30-2023 Myeloperoxidase Ab IA Qn (S) <0.2 units 0.0-0.9 [facility] Neutrophils Auto (Bld) [#/Vo l]Ordered By: Jane Tracey on 05-30-2023 Neutrophils (Bld) [#/Vol] 6.7 10*3/uL 1.8-7.7 [facility] Neutrophils/100 WBC Auto (Bl d)Ordered By: Jane Tracey on 05-30-2023 Neutrophils/100 WBC (Bld) 66.7 % . [facility] No Panel InformationOrdered By: Jane Tracey on 05-30-2023 Anti-Nuclear Antibody Comment [address] [facility] Comment on above: Pattern Potential Di sease Association Homogeneous Systemic Lupus Erythematosus, Drug Induced Systemic Lupus Erythematosus, Chronic Autoimmune hepatitis, Juvenile Idiopathic Arthritis Speckled Sjogren Syndrome, Systemic Lupus Erythematosus, Subacute Cutaneous Lupus, Lupus, Congenital Heart Block, Mixed Connective Tissue Disease, Scleroderma-diffuse, Scleroderma-Autoimmune Myositis Overlap Syndrome, Systemic Lupus Uybsgitcavdfm-Zezrcnptnag-Dncaeirbjl Myositis Overlap Syndrome, Systemic Autoimmune Rheumatic Disease, Undifferentiated Connective Tissue Disease Nucleolar Systemic Sclerosis, Scleroderma-Autoimmune Myositis Overlap Syndrome, Sjogren Syndrome, Raynaud phenomenon, Pulmonary Arterial Hypertension, Systemic Autoimmune Rheumatic Disease, Cancer Centromere Scleroderma-CREST, Limited Cutaneous SSc, Raynaud's Phenomenon, Primary Biliary Cholangitis Nuclear Dot Primary Biliary Cholangitis Nuclear Primary Biliary Cholangitis, AutoimmuneMembrane Hepatitis/Liver disease, Systemic Autoimmune Rheumatic Disease, Autoimmune Cytopenias, Linear Scleroderma, Antiphospholipid Syndrome Performed at: CB - [facility] [address] [id number] Director: Breezy Jones PhD, Phone: [phone] Estimated GFR (CKD-EPI) > 60.0 mL/Min [facility] Hepatitis B Core IgM Antibody Negative Negative [facility] Comment on above: Performed at: [facility] [address] [id number] Director: Breezy Jones PhD, Phone: [phone] Perinuclear ANCA (p-ANCA) Antibody <1:20 titer Neg:<1:20 [facility] Comment on above: The presence of posi tive fluorescence exhibiting P-ANCA orC-ANCA patterns alone is not specific for the diagnosis ofWegener's Granulomatosis (WG) or microscopic polyangiitis.Decisions about treatment should not be based solely onANCA IFA results. The International ANCA Group Consensusrecommends follow up testing of positive sera with both KS-3 and MPO-ANCA enzyme immunoassays. As many as 5% serumsamples are positive only by EIA. Ref. AM J Clin Ootxef2994;111:507-513. Pharmacy Creatinine Clearance (Chem 108.91 [facility] Protein Electrophoresis M-Tomas Not observed g/dL Not Observed [facility] Protein Electrophoresis Note See comment . [facility] Comment on above: Protein electrophore sis scan will follow via computer,mail, or acreage reporter delivery. Serum Immunofixation See comment . [facility] Comment on above: No monoclonality det ected. Nucleated erythrocytes [Pres ence] in Blood by Automated countOrdered By: Jane Tracey on 05-30-2023 Nucleated RBC Auto Ql (Bld) 0.1 /100{WBC} 0-0.5 [facility] Platelet mean volume Auto (B ld) [Entitic vol]Ordered By: Jane Tracey on 05-30-2023 Platelet mean volume (Bld) [Entitic vol] 7.6 fL 6.3-10.7 [facility] Platelets Auto (Bld) [#/Vol] Ordered By: Jane Ceedarleen on 05-30-2023 Platelets (Bld) [#/Vol] 325 10*3/uL 150-450 [facility] Potassium [Moles/volume] in Serum or PlasmaOrdered By: Lesvalorie Colemandarleen on 05-30-2023 Potassium [Moles/Vol] 3.4 mmol/L 3.5-5.1 [facility] Protein Electrophoresis, Ser umon 05-30-2023 Albumin [Mass/Vol] 4.1 g/dL Normal 2.9-4.4 [facility] Comment on above: Performed By: #### P P, PLT #### [facility] [address] [place] [address] Albumin/Globulin [Mass ratio] 1.0 {ratio} Normal 0.7-1.7 [facility] Comment on above: Performed By: #### P P, PLT #### [facility] [address] [place] [address] Qgxsg-1-Zypbisqv 0.2 g/dL Normal 0.0-0.4 [facility] Comment on above: Performed By: #### P P, PLT #### [facility] [address] [place] [address] [place] Sqodn-3-Dspjmtgz 1.0 g/dL Normal 0.4-1.0 [facility] Comment on above: Performed By: #### P P, PLT #### [facility] [address] [place] [address] [place] Beta Globulin 1.3 g/dL Normal 0.7-1.3 [facility] Comment on above: Performed By: #### P P, PLT #### [facility] [address] [place] [address] [place] Gamma Globulin 1.5 g/dL Normal 0.4-1.8 [facility] Comment on above: Performed By: #### P P, PLT #### [facility] [address] [place] [address] [place] Globulin (S) [Mass/Vol] 4.0 g/dL High 2.2-3.9 [facility] Comment on above: Performed By: #### P P, PLT #### [facility] [address] M-Tomas Not Observed Normal Not Observed [facility] Comment on above: Performed By: #### P P, PLT #### [facility] [address] Protein [Mass/Vol] 8.1 g/dL Normal 6.0-8.5 [facility] Comment on above: Performed By: #### P P, PLT #### [facility] [address] SPE-Note Normal . [facility] Comment on above: Result Comment: Prot ein electrophoresis scan will follow via computer, mail, or acreage reporter delivery. Performed By: #### P P, PLT #### [facility] [address] Protein [Mass/volume] in Ser um or PlasmaOrdered By: Jane Tracey on 05-30-2023 Protein [Mass/Vol] 9.0 g/dL 6.4-8.9 [facility] Protein [Mass/Vol] 8.1 g/dL 6.0-8.5 [facility] Proteinase 3 Ab [Units/volum e] in Serum by ImmunoassayOrdered By: Jane Tracey on 05-30-2023 Proteinase 3 Ab IA Qn (S) <0.2 units 0.0-0.9 [facility] RBC Auto (Bld) [#/Vol]Ordere d By: Jane Tracey on 05-30-2023 RBC (Bld) [#/Vol] 5.00 10*6/uL 3.60-5.00 [facility] Rheumatoid Factoron 05-30-20 23 Rheumatoid Factor 10.9 Normal <14.0 [facility] Comment on above: Result Comment: Perf ormed at: CB - [facility] [address] [id number] Protective Service Specialist: Breezy Jones PhD, Phone: [phone] Performed By: #### P P, PLT #### [facility] [address] Serum angiotensin converting enzyme (SANDRA) measurementOrdered By: Jane Tracey on 05-30-2023 Angiotensin converting enzyme [Catalytic activity/Vol] 61 U/L [facility] Comment on above: Performed at: [address] [id number] Director: Breezy Jones PhD, Phone: [phone] Serum classic neutrophil cyt oplasmic antibody titer by immunofluorescenceOrdered By: Jane Tracey on 05-30-2023 Neutrophil cytoplasmic Ab.classic IF (S) [Titer] <1:20 titer Neg:<1:20 [facility] Serum cryoglobulin detection Ordered By: Jane Tracey on 05-30-2023 Cryoglobulin Ql (S) See comment . [facility] Comment on above: Test not performed. Insufficient specimen to perform orcomplete analysis.contacted your facility on [phone] test was developed and its performance characteristicsdetermined by [employer]. It has not been cleared orapproved by the Food and Drug Administration. Serum globulin measurement ( mass/volume)Ordered By: Jane Tracey on 05-30-2023 Globulin (S) [Mass/Vol] 4.0 g/dL 2.2-3.9 [facility] Serum hepatitis B virus surf sandra antibody detectionOrdered By: Jane Tracey on 05-30-2023 HBV surface Ab Ql (S) Reactive . [facility] Comment on above: Non Reactive: Incons istent with immunity, less than 10 mIU/mL Reactive: Consistent with immunity, greater than 9.9 mIU/mL Serum nuclear antibody titer Ordered By: Jane Tracey on 05-30-2023 Nuclear Ab (S) [Titer] Positive . [facility] Comment on above: Negative <1:80 Borde rline 1:80 Positive >1:80 Serum or plasma albumin/glob ulin mass ratioOrdered By: Jane Tracey on 05-30-2023 Albumin/Globulin [Mass ratio] 1.4 {ratio} [facility] Albumin/Globulin [Mass ratio] 1.0 {ratio} 0.7-1.7 [facility] Serum or plasma alpha 1 glob ulin measurement by electrophoresis (mass/volume)Ordered By: Jane Tracey on 05-30-2023 Alpha 1 globulin Elph [Mass/Vol] 0.2 g/dL 0.0-0.4 [facility] Serum or plasma alpha 2 glob ulin measurement by electrophoresis (mass/volume)Ordered By: Jane Tracey on 05-30-2023 Alpha 2 globulin Elph [Mass/Vol] 1.0 g/dL 0.4-1.0 [facility] Serum or plasma anion gap de terminationOrdered By: Jane Tracey on 05-30-2023 Anion gap [Moles/Vol] 17.6 mmol/L 6.0-15.0 [facility] Serum or plasma beta globuli n measurement by electrophoresis (mass/volume)Ordered By: Jane Tracey on 05-30-2023 Beta globulin Elph [Mass/Vol] 1.3 g/dL 0.7-1.3 [facility] Serum or plasma gamma globul in measurement by electrophoresis (mass/volume)Ordered By: Jane Tracey on 05-30-2023 Gamma globulin Elph [Mass/Vol] 1.5 g/dL 0.4-1.8 [facility] Serum or plasma methylmalona te measurement (moles/volume)Ordered By: Jane Condon on 05-30-2023 Methylmalonate [Moles/Vol] 99 nmol/L 0-378 [facility] Comment on above: This test was develo ped and its performance characteristicsdetermined by [employer]. It has not been cleared orapproved by the Food and Drug Administration.Performed at: [address] [id number] Director: Lisa Ramos MD, Phone: [phone] Serum or plasma rheumatoid f actor measurement (units/volume)Ordered By: Jane Tracey on 05-30-2023 Rheumatoid factor Qn 10.9 [IU]/mL <14.0 [facility] Comment on above: Performed at: - [facility] [address] [id number] Director: Breezy Jones PhD, Phone: [phone] Serum speckled pattern antin uclear antibody (PAT) titerOrdered By: valorie Condon on 05-30-2023 Speckled nuclear Ab pattern (S) [Titer] 1:[address] [facility] Comment on above: ICAP nomenclature: A C-2,4,5,29 Sodium [Moles/volume] in Ser um or PlasmaOrdered By: [facility] on 05-30-2023 Sodium [Moles/Vol] 138 mmol/L 136-145 [facility] Urea nitrogen [Mass/volume] in Serum or PlasmaOrdered By: [facility] on 05-30-2023 Urea nitrogen [Mass/Vol] 9 mg/dL 7-25 [facility] Vit. B12/Folate Profileon Cobalamin (Vitamin B12) [Mass/Vol] 169 pg/mL Low 180-914 [facility] Comment on above: Performed By: #### C BC, CMP, MG, LDH, [id number] #### [address] #### LEAD,ADULT, KAPPA, SPE, ANCA PROF, SANDRA, CRYOGLOB, HBSAG, CU, HIV SCREEN, RONALD SERUM, PAT, METH, HBSAB, RA, HCBIGM #### [facility] , Folate 1.3 ng/mL Low >5.9 [facility] Comment on above: Result Comment: Astrid te reference range: >5.9 ng/ml The WHO technical consultation on folate and vitamin b12 deficiencies has determined that folate concentrations less than 4 ng/ml are considered deficient. PERFORMED BY: [place] [id number] PATHOLOGIST ANALYSIS MANAGER RUIZ CLIFTON M.D. Performed By: #### C BC, CMP, MG, LDH, [id number] #### [place] [id number] [facility] #### LEAD,ADULT, KAPPA, SPE, ANCA PROF, SANDRA, CRYOGLOB, HBSAG, CU, HIV SCREEN, RONALD SERUM, PAT, METH, HBSAB, RA, HCBIGM #### [facility] , Vitamin B12 ser/plasOrdered By: Jane Tracey on 05-30-2023 Cobalamin (Vitamin B12) [Mass/Vol] 169 pg/mL 180-914 [facility] WBC Auto (Bld) [#/Vol]Ordere d By: valorie Tracey on 05-30-2023 WBC (Bld) [#/Vol] 10.1 10*3/uL 3.8-11.6 [facility] CNOVon 05-23-2023 CNOV Office Visit (NEUS ) -------- RICA STOUT ([id number]) 1995 F Date Time Provider Department 05/23/23 2:00 PM ARSH OROZCO During your visit today, we recorded the following information about you: Pulse Respiration Blood pressure Weight 104/minute 16/minute 105/72 61.2 kg Height 1.626 m Arsh Orozco MD 05/24/2023 6:37 AM Signed Reason for Evaluation: Consultation requested by Jeannie Jarvis for an opinion regarding neuropathy. My final recommendations will be communicated back to the requesting physician by way of shared medical record or letter to requesting physician via US mail. Impression: This is Ms. Rica Stout, a 27 year old female who presents to the [facility] clinic with the chief complaint of symptoms in the hands and feet, including burning sensation in the feet. Approximately 8 to 9-month history. Started in the toes, progressed up the legs and began to involve hands. Symptoms include burning, sometimes shooting, stabbing, tightness in the hands and feet, perhaps allodynia. Gabapentin may be helpful. Recently started Cymbalta. Major risk factor here is heavy alcohol intake for 2 years (daily). Decreased alcohol intake as of February 2023. Numbness is improved. Examination shows decreased sensation to multiple modalities in the lower extremities, muted lower extremity reflexes, and weakness in the distal lower extremities. Impression is for toxic peripheral polyneuropathy (alcohol-related). Also suspect nutritional deficiency could be contributing to etiology of neuropathy. Recent A1c 4.6%. Plan: - Should expect improvement in this case. Abstain from alcohol. - Laboratory studies. B12. SPEP with RONALD. - Start kxtj-xrp-hozyrzo B complex supplementation after laboratory studies. - Trial alpha lipoic acid. Take 600 mg daily. - Follow-up in person in 4 to 6 months. Arsh Orozco MD Staff, [facility] [place] HPI: This is Ms. Rica Stout, a 27 year old female who presents to the [facility] clinic with the chief complaint of symptoms in the hands and feet, including burning sensation in the feet. Review: Neuropathy. Recently admitted to outside hospital. Progressive bilateral lower extremity weakness. Paresthesias. Burning pain. MRI brain, MRI lumbar spine, lumbar puncture were apparently unrevealing. Found to have low folate, low B12. Outside EMG scanned into our system. EMG seems to have been performed for the bilateral lower extremities. Sensory nerve conduction studies appear to show no response bilaterally. Peroneal/EDB motor nerve conduction study response shows a low amplitude response bilaterally. Tibial/AH motor nerve conduction study response shows no response bilaterally. Chronic changes seem to been noted on needle EMG in the medial gastroc bilaterally. EMG interpreted as showing a generalized process such as polyneuropathy, which is axon loss in type and severe in degree electrically. CC: My hands and my feet feel like rocks Stiff Especially feet Feels like standing on hot coals Like feet are on fire Sometimes shooting pains Today: Knee down And just hands Stiffness, burning, sometimes shooting, stabbing, Tightness in hands and feet Crushing symptoms in the feet Does not tolerate bedsheets it seems Less functional Barely getting around the house Did not go up steps for months Can't stand longer than 5 minutes -- would hurt Walking will make it worse Started August 2022 Started in toes, moved up legs to hands Gabapentin 300/300 maybe is helping Recently started cymbalta 60 daily No history of diabetes. No history of cancer or exposure to chemotherapy. No restrictive diet. No history of HIV. Resolved hepatitis B years ago No history of significant alcohol intake. No family history of neuropathy. Drank heavily 6 beers, 3-4 mixed drinks daily 2 years Sober as of February 2023 Numbness has gotten better Can feel legs and feet Numbness seems to have been significant Up to waist, up arms Now can feel hands Improved in the legs Some numbness below knee Past history per chart review includes: Past medical history, problem list: Resolved hepatitis B Past surgical history: 2x c sections Family history: Social history: History of heroin abuse, alcohol abuse IV drug use up to 2019 Former daily alcohol use (6+ beers +3-4 mixed drinks daily) Last use mid February 2023 OBJECTIVE: PHYSICAL EXAM: Neurological: Mental Status: Alert. Speech fluent. Cranial Nerves: CNIII, IV, : Eyes cross midline. CN V: Facial sensation intact bilaterally to touch. CN VII: Smile is symmetric. CN VIII: Hearing intact to finger rub bilaterally. CN IX: No hypophonia. CN XI: Full strength shoulder shrug bilater (more content not included)... Normal [facility] ECG 12-Leadon 05-10-2023 ECG 12-Lead [id number]#1.00TIFF Normal [facility] RAD - MISCon 05-10-2023 RAD - MISC [id number] [facility] [id number]#1.00TIFF Normal [facility] RAD - MRI Reporton 3 RAD - MRI Report [id number]#1.00TIFF Normal [facility] RAD - Ultrasound Reporton RAD - Ultrasound Report [id number]#1.00TIFF Normal [facility] Office Visiton 05-08-2023 Follow-up visit [id number] Louis Stout 1995 F Date Provider Department Center 05/08/2023 1596-MARTHA [facility] Family History Problem Relation Age of Onset Coronary artery disease Maternal Grandmother Peripheral vascular disease Maternal Grandmother Hypertension Paternal Grandmother Atrial fibrillation Paternal Grandmother Family Status - Relation Status Age at Maternal Grandmother Paternal Grandmother Level of Service:34183 [place] OFFICE/OUTPATIENT ESTABLISHED MOD MDM 30-39 MIN Normal [facility] Lab Reportson 04-18-2023 Lab Reports [id number]#1.00CD:12 7 Normal [facility] Lab Reports [id number]#1.00CD:12 7 Normal [facility] RAD - Ultrasound Reporton RAD - Ultrasound Report [id number]#1.00CD:12 7 Normal [facility] A1AT SerPl-mCncon 04-12-2023 Alpha 1 antitrypsin [Mass/Vol] 138 mg/dL Normal 90-200 [facility] Comment on above: Order Comment: Speci men Type: BLOOD SPECIMEN Ordering Facility: [facility] Address: [address] [place] [address] Performed By: #### A HAVG, 5195-3, 37149-9, 54247-8 #### [facility] CLIA [id number] [address] [place] [address] [place] ALPHA 1 ANTITRYP PHEN/GENOTY PEon 04-12-2023 HA1IN Normal [facility] Comment on above: Order Comment: Speci men Type: BLOOD SPECIMEN Ordering Facility: [facility] Address: [address] [place] [address] Result Comment: Alph a 1 Antitrypsin Phenotype and Genotype Laboratory Accession Number: [id number] Result: No Variant Detected in SERPINA1 (PI*MM) Interpretation: DNA testing indicates that this patient does not have the S, Z, F, or I alleles of SERPINA1, the alpha-1 antitrypsin gene. Guidance: Genetic consultation and counseling of at risk family members regarding this laboratory testing may be considered as clinically appropriate. Patients with no variants of SERPINA1 typically have serum alpha-1 antitrypsin levels between 102-254 mg/dL. If this patient has a serum alpha-1 antitrypsin level that is not consistent with this genotype and alpha-1 antitrypsin deficiency caused by a rare variant is clinically suspected, consider performing SERPINA1 gene sequencing. Methodology: Isolated genomic DNA from the patient's blood specimen is evaluated for four variants in the alpha-1 antitrypsin gene SERPINA1 (RefSeq [id number]; GRCh38/hg38) by multiplex polymerase chain reaction (PCR) followed by melting curve analysis. These included the two most common pathogenic variants: S (c.863A>T, p.Qmv019Jky, g.99917390), Z (c.1096G>A, p.Ejv221Wuy, g.90969025), and the rarer variants: F (c.739C>T, p.Vuu352Gdn, g.35234744), I (c.187C>T, p.Uis25Nwy, g.00860450). Limitations: This Laboratory Developed Test (LDT) is designed to detect the S, Z, F and I alleles. The S and Z alleles comprise 95% of non-wild type genotypes. Uncommon variants or Single Nucleotide Polymorphisms may affect binding of LightMix or LightSNiP probes and may result in a false negative, false positive, or indeterminate result. Absence of the S, Z, F, and I alleles is interpreted as PI*MM genotype. However, there are over 100 known rare variants of SERPINA1 that are not detected by this LDT. Therefore, correlation of the genotype with the patient's serum alpha-1 antitrypsin level and clinical manifestations is strongly recommended. Frequency of S, Z, F and I Alleles in the general population: S: Heterozygous 2%; Homozygous 0.04% Z: Heterozygous 1%; Homozygous 0.01% F: Heterozygous 0.3%; Homozygous 0.001% I: Heterozygous 0.1%; Homozygous unknown Allele frequency information was gathered from the [employer] ([employer]) and includes data from , , , and populations (supporting data in references). Disclaimer: This test was developed and its performance characteristics determined by [facility]'s Cristóbal Simons [facility] [place] ([facility]). It has not been cleared or approved by the FDA. [facility] is regulated under CLIA as certified to perform high- complexity testing. This test is used for clinical purposes. It should not be regarded as investigational or for research. Testing and interpretation performed at [facility], [facility] [place] [address]. CLIA Number: [id number] References: 1) Alok NAGEL, Rodo G, Alicia ML, Valdemar M, Zay CE, K, Martinez DK, Rodger SL, Benson ALVAREZ, Esther DANIELLE, Placido Morin, Inocente J. The Diagnosis and Management of Alpha-1 Antritrypsin Deficiency in the Adult. Chronic Obstr Pulm Dis. 2016 Dec 25;3:668-682. 2) Bella JA, Sara ON, Pati ER, Daniel DG. a1-Antitrypsin phenotypes and associated serum protein concentrations in a large clinical population. Chest.2013 Oct;143(4):1000-8. 3) Miles A, Thu NA, Calderón CR, Bong FJ, Carlos SJ, Christel AF. Molecular characterisation of three hwmcp-4-invuhwrtbws deficiency variants: proteinase inhibitor (Pi) nullcardiff (Qtv298----Zoo); PiMmalton (Fbm13----amafxsfk) and PiI (Iku57----Qkm). Hum Karen. 1989 Jun;84(1):55-8. 4) Nancy EK and Alok NAGEL. Clinical practice. Alpha1-antitrypsin deficiency. N Engl J Med. 2008Jan 13;360(54)2766-80. 5) Jorge NJ, Javier F, Samantha NAGEL. The significance of the F variant of skcrm-2-qolenwflptj and unique case report of a PiFF homozygote. BMC Pulm Med. 2013Feb 25;14:132. 6) Esther DANIELLE, Laisha FL, and Nicolette Mccurdy. Alpha-1 Antitrypsin Deficiency. 2005May 17 [Updated 2017 August 09]. In: Gricelda RA, Chele MP, Iban TO, et al., editors. Jennifer [Internet]. [place] ([place]): [facility], [place]; 6419-0417. Available from: http://www.ncbi.nlm.nih.gov/books/ZMK1062/ As reviewed by Saritha Swan MD Performed By: #### A JACOB, 5195-3, 09616-2, 17622-6 #### [facility] CLIA [id number] [address] [place] [address] [place] PAT BY IFA WITH REFLEXon Nuclear Ab pattern (S) [Interp] Nuclear fine speckled Normal [facility] Comment on above: Order Comment: Speci men Type: BLOOD SPECIMEN Ordering Facility: [facility] Address: [address] [place] [address] Performed By: #### A JACOB, 5195-3, 28916-7, 79103-9 #### [facility] CLIA [id number] [address] [place] [address] [place] Nuclear Ab Ql (S) Positive Abnormal Negative [facility] Comment on above: Order Comment: Speci men Type: BLOOD SPECIMEN Ordering Facility: [facility] Address: [address] [place] [address] Result Comment: Anti -nuclear antibody test is used as an aid in diagnosis of systemic autoimmune diseases. Where positive and clinically warranted, follow-up using disease-specific testing is recommended. Low positive titers are not uncommon with advanced age, certain chronic infections, and malignancies among others. Test methodology: Indirect fluorescence immunoassay (IFA) using HEp-2 cells. 1:80 Performed By: #### A JACOB, 5195-3, 65923-8, 41110-5 #### [facility] CLIA [id number] [address] [place] [address] [place] Basic metabolic 2000 panelon 04-12-2023 Anion gap [Moles/Vol] 18 mmol/L Normal 9-18 [facility] Comment on above: Order Comment: Speci men Type: BLOOD SPECIMEN Ordering Facility: [facility] Address: [address] Performed By: #### Ceci JAMES, 5195-3, 58795-3, 51151-6 #### [facility] CLIA [id number] [address] [place] [address] [place] Calcium [Mass/Vol] 10.3 mg/dL High 8.5-10.2 [facility] Comment on above: Order Comment: Speci men Type: BLOOD SPECIMEN Ordering Facility: [facility] Address: [address] [address] Performed By: #### Ceci JAMES, 5195-3, 93789-0, 97870-7 #### [facility] CLIA [id number] [address] [place] [address] [place] Chloride [Moles/Vol] 100 mmol/L Normal 97-105 [facility] Comment on above: Order Comment: Speci men Type: BLOOD SPECIMEN Ordering Facility: [facility] Address: [address] [place] [address] Performed By: #### Ceci JAMES, 5195-3, 70964-3, 81505-2 #### [facility] CLIA [id number] [address] [place] [address] [place] CO2 [Moles/Vol] 20 mmol/L Low 22-30 [facility] Comment on above: Order Comment: Speci men Type: BLOOD SPECIMEN Ordering Facility: [facility] Address: [address] [place] [address] Performed By: #### Ceci JAMES, 5195-3, 45386-5, 98549-0 #### [facility] CLIA [id number] [address] [place] [address] [place] Creatinine [Mass/Vol] 0.43 mg/dL Low 0.58-0.96 [facility] Comment on above: Order Comment: Speci men Type: BLOOD SPECIMEN Ordering Facility: [facility] Address: [address] [id number] Performed By: #### A JACOB, 5195-3, 24870-9, 43028-2 #### [facility] CLIA [id number] [address] [place] [address] [place] Creatinine and Glomerular filtration rate.predicted panel (S/P/Bld) 137 mL/min/1.73m??? Normal >=60 [facility] Comment on above: Order Comment: Jim etienne Type: BLOOD SPECIMEN Ordering Facility: [facility] Address: [address] Result Comment: Ebony mated Glomerular Filtration Rate (eGFR) is calculated using the 2020 CKD-EPI creatinine equation. This equation utilizes serum creatinine, sex, and age as parameters. The creatinine assay has traceable calibration to isotope dilution-mass spectrometry. Refer to KDIGO guidelines for clinical interpretation. In patients with unstable renal function, e.g. those with acute kidney injury, the eGFR may not accurately reflect actual GFR. Performed By: #### A JACOB, 5195-3, 21983-4, 25018-3 #### [facility] CLIA [id number] [address] [place] [address] [place] Glucose [Mass/Vol] 96 mg/dL Normal 74-99 [facility] Comment on above: Order Comment: Jim etienne Type: BLOOD SPECIMEN Ordering Facility: [facility] Address: [address] [id number] Result Comment: The [place] Diabetes Association (ADA) provides guidance for cutoff values for fasting glucose and random glucose. The ADA defines fasting as no caloric intake for at least 8 hours. Fasting plasma glucose results between 100 to 125 mg/dL indicate increased risk for diabetes (prediabetes). Fasting plasma glucose results greater than or equal to 126 mg/dL meet the criteria for diagnosis of diabetes. In the absence of unequivocal hyperglycemia, results should be confirmed by repeat testing. In a patient with classic symptoms of hyperglycemia or hyperglycemic crisis, random plasma glucose results greater than or equal to 200 mg/dL meet the criteria for diagnosis of diabetes. Reference: Standards of Medical Care in Diabetes 2016, [place] [employer]. Diabetes Care. 2016.39(Suppl 1). Performed By: #### A JACOB, 5195-3, 73457-9, 64064-4 #### [facility] CLIA [id number] [address] [place] [address] [place] Potassium [Moles/Vol] 3.9 mmol/L Normal 3.7-5.1 [facility] Comment on above: Order Comment: Speci men Type: BLOOD SPECIMEN Ordering Facility: [facility] Address: [address] [address] Performed By: #### Ceci JAMES, 5195-3, 38069-7, 66003-4 #### [facility] CLIA [id number] [address] [place] [address] [place] Sodium [Moles/Vol] 138 mmol/L Normal 136-144 [facility] Comment on above: Order Comment: Speci men Type: BLOOD SPECIMEN Ordering Facility: [facility] Address: [address] [address] Performed By: #### Ceci JAMES, 5195-3, 21086-1, 53067-7 #### [facility] CLIA [id number] [address] [place] [address] [place] Urea nitrogen [Mass/Vol] 7 mg/dL Normal 7-21 [facility] Comment on above: Order Comment: Speci men Type: BLOOD SPECIMEN Ordering Facility: [facility] Address: [address] [address] Performed By: #### A JACOB, 5195-3, 21200-9, 06633-2 #### [facility] CLIA [id number] [address] [place] [address] [place] CBC W Auto Differential pane l (Bld)on 04-12-2023 Basophils (Bld) [#/Vol] 0.09 10*3/uL Normal <0.11 [facility] Comment on above: Order Comment: Speci men Type: BLOOD SPECIMEN Ordering Facility: [facility] Address: [address] [address] Performed By: #### Ceci JAMES, 5195-3, 89194-9, 31084-9 #### [facility] CLIA [id number] [address] [place] [address] [place] Basophils/100 WBC (Bld) 1.0 % Normal [facility] Comment on above: Order Comment: Speci men Type: BLOOD SPECIMEN Ordering Facility: [facility] Address: [address] [place] [address] Performed By: #### Ceci JAMES, 5195-3, 92901-5, 88987-2 #### [facility] CLIA [id number] [address] [place] [address] [place] Differential cell count method Nom (Bld) Manual Normal [facility] Comment on above: Order Comment: Speci men Type: BLOOD SPECIMEN Ordering Facility: [facility] Address: [address] [place] [address] Performed By: #### Ceci JAMES, 5195-3, 61816-1, 61433-4 #### [facility] CLIA [id number] [address] [place] [address] [place] Eosinophils (Bld) [#/Vol] 0.36 10*3/uL Normal <0.46 [facility] Comment on above: Order Comment: Speci men Type: BLOOD SPECIMEN Ordering Facility: [facility] Address: [address] [address] Performed By: #### Ceci JAMES, 5195-3, 32934-5, 71951-0 #### [facility] CLIA [id number] [address] [place] [address] [place] Eosinophils/100 WBC (Bld) 4.0 % Normal [facility] Comment on above: Order Comment: Speci men Type: BLOOD SPECIMEN Ordering Facility: [facility] Address: [address] [address] Performed By: #### Ceci JAMES, 5195-3, 32318-4, 22261-7 #### [facility] CLIA [id number] [address] [place] [address] [place] Erythrocyte distribution width (RBC) [Ratio] 12.3 % Normal 11.5-15.0 [facility] Comment on above: Order Comment: Speci men Type: BLOOD SPECIMEN Ordering Facility: [facility] Address: [address] [address] Performed By: #### Ceci JAMES, 5195-3, 79538-7, 00826-3 #### [facility] CLIA [id number] [address] [place] [address] [place] Hematocrit (Bld) [Volume fraction] 43.8 % Normal 36.0-46.0 [facility] Comment on above: Order Comment: Speci men Type: BLOOD SPECIMEN Ordering Facility: [facility] Address: [address] [address] Performed By: #### Ceci JAMES, 5195-3, 16343-6, 45412-6 #### [facility] CLIA [id number] [address] [place] [address] [place] Hemoglobin (Bld) [Mass/Vol] 14.5 g/dL Normal 11.5-15.5 [facility] Comment on above: Order Comment: Speci men Type: BLOOD SPECIMEN Ordering Facility: [facility] Address: [address] [address] Performed By: #### A JACOB, 5195-3, 93436-6, 18519-7 #### [facility] CLIA [id number] [address] [place] [address] [place] Lymphocytes (Bld) [#/Vol] 1.72 10*3/uL Normal 1.00-4.00 [facility] Comment on above: Order Comment: Speci men Type: BLOOD SPECIMEN Ordering Facility: [facility] Address: [address] [address] Performed By: #### Ceci JAMES, 5195-3, 99721-3, 69308-5 #### [facility] CLIA [id number] [address] [place] [address] [place] Lymphocytes/100 WBC (Bld) 19.0 % Normal [facility] Comment on above: Order Comment: Speci men Type: BLOOD SPECIMEN Ordering Facility: [facility] Address: [address] [address] Performed By: #### Ceci JAMES, 5195-3, 53323-4, 11960-3 #### [facility] CLIA [id number] [address] [place] [address] [place] MCH (RBC) [Entitic mass] 34.4 pg High 26.0-34.0 [facility] Comment on above: Order Comment: Speci men Type: BLOOD SPECIMEN Ordering Facility: [facility] Address: [address] [address] Performed By: #### Ceci JAMES, 5195-3, 10598-9, 25283-8 #### [facility] CLIA [id number] [address] [place] [address] [place] MCHC (RBC) [Mass/Vol] 33.1 g/dL Normal 30.5-36.0 [facility] Comment on above: Order Comment: Speci men Type: BLOOD SPECIMEN Ordering Facility: [facility] Address: [address] Performed By: #### Ceci JAMES, 5195-3, 98444-9, 10753-2 #### [facility] CLIA [id number] [facility] [place] [address] [place] MCV (RBC) [Entitic vol] 104.0 fL High 80.0-100.0 [facility] Comment on above: Order Comment: Speci men Type: BLOOD SPECIMEN Ordering Facility: [facility] Address: [address] [place] [address] Performed By: #### A JACOB, 5195-3, 51316-4, 24879-5 #### [facility] CLIA [id number] [address] [place] [address] [place] Monocytes (Bld) [#/Vol] 0.27 10*3/uL Normal <0.87 [facility] Comment on above: Order Comment: Speci men Type: BLOOD SPECIMEN Ordering Facility: [facility] Address: [address] [place] [address] Performed By: #### A JACOB, 5195-3, 71569-3, 52752-8 #### [facility] CLIA [id number] [address] [place] [address] [place] Monocytes/100 WBC (Bld) 3.0 % Normal [facility] Comment on above: Order Comment: Speci men Type: BLOOD SPECIMEN Ordering Facility: [facility] Address: [address] [place] [address] Performed By: #### Ceci JAMES, 5195-3, 71595-8, 03012-8 #### [facility] CLIA [id number] [address] [place] [address] [place] MYELO% 3.0 % Normal [facility] Comment on above: Order Comment: Speci men Type: BLOOD SPECIMEN Ordering Facility: [facility] Address: [address] Performed By: #### A JACOB, 519-3, 35334-6, 38370-1 #### [facility] CLIA [id number] [address] [place] [address] [place] Neutrophils (Bld) [#/Vol] 6.33 10*3/uL Normal 1.45-7.50 [facility] Comment on above: Order Comment: Speci men Type: BLOOD SPECIMEN Ordering Facility: [facility] Address: [address] Performed By: #### Ceci JAMES, 5-3, 08092-0, 42570-8 #### [facility] CLIA [id number] [address] [place] [address] [place] Neutrophils/100 WBC (Bld) 70.0 % Normal [facility] Comment on above: Order Comment: Speci men Type: BLOOD SPECIMEN Ordering Facility: [facility] Address: [address] Performed By: #### Ceci JAMES, 5195-3, 04645-8, 56522-0 #### [facility] CLIA [id number] [address] [place] [address] [place] Nucleated RBC (Bld) [#/Vol] 10*3/uL Normal <0.01 [facility] Comment on above: Order Comment: Speci men Type: BLOOD SPECIMEN Ordering Facility: [facility] Address: [address] Performed By: #### Ceci JAMES, 5194-3, 55267-1, 46454-8 #### [facility] CLIA [id number] [address] [place] [address] [place] Nucleated RBC/100 WBC (Bld) [Ratio] 0.0 /100 WBC Normal [facility] Comment on above: Order Comment: Speci men Type: BLOOD SPECIMEN Ordering Facility: [facility] Address: [address] Performed By: #### Ceci JAMES, 5194-3, 11870-4, 04398-3 #### [facility] CLIA [id number] [address] [place] [address] [place] Platelet mean volume (Bld) [Entitic vol] 10.1 fL Normal 9.0-12.7 [facility] Comment on above: Order Comment: Speci men Type: BLOOD SPECIMEN Ordering Facility: [facility] Address: [address] Performed By: #### Ceci JAMES, 5195-3, 52958-0, 89530-6 #### [facility] CLIA [id number] [address] [place] [address] [place] Platelets (Bld) [#/Vol] 393 10*3/uL Normal 150-400 [facility] Comment on above: Order Comment: Speci men Type: BLOOD SPECIMEN Ordering Facility: [facility] Address: [address] Performed By: #### Ceci JAMES, 5195-3, 73843-5, 27102-1 #### [facility] CLIA [id number] [address] [place] [address] [place] Platelets Estimate (Bld) [#/Vol] Adequate Normal [facility] Comment on above: Order Comment: Speci men Type: BLOOD SPECIMEN Ordering Facility: [facility] Address: [address] Performed By: #### Ceci JAMES, 5195-3, 40355-2, 39832-5 #### [facility] CLIA [id number] [address] [place] [address] [place] Polychromasia LM Ql (Bld) Slight Normal [facility] Comment on above: Order Comment: Speci men Type: BLOOD SPECIMEN Ordering Facility: [facility] Address: [address] Performed By: #### Ceci JAMES, 5194-3, 80968-8, 17963-4 #### [facility] CLIA [id number] [address] [place] [address] [place] RBC (Bld) [#/Vol] 4.21 10*6/uL Normal 3.90-5.20 [facility] Comment on above: Order Comment: Speci men Type: BLOOD SPECIMEN Ordering Facility: [facility] Address: [address] [place] [address] Performed By: #### Ceci JAMES, 5194-3, 68108-2, 02585-7 #### [facility] CLIA [id number] [address] [place] [address] [place] RED CELL MORPH Reviewed: unremarkable Normal [facility] Comment on above: Order Comment: Speci men Type: BLOOD SPECIMEN Ordering Facility: [facility] Address: [address] [place] [address] Performed By: #### Ceci JAMES, 5194-3, 36227-1, 95339-2 #### [facility] CLIA [id number] [address] [place] [address] [place] WBC (Bld) [#/Vol] 9.04 10*3/uL Normal 3.70-11.00 [facility] Comment on above: Order Comment: Speci men Type: BLOOD SPECIMEN Ordering Facility: [facility] Address: [address] [place] [address] Performed By: #### Ceci JAMES, 5194-3, 78625-3, 54741-9 #### [facility] CLIA [id number] [address] [place] [address] [place] WBC Left Shift Ql (Bld) Present [facility]: Order Comment: Speci men Type: BLOOD SPECIMEN Ordering Facility: [facility] Address: [address] [place] [address] Performed By: #### A JACOB, 519-3, 67054-0, 80182-9 #### [facility] CLIA [id number] [address] [place] [address] [place] CNOVon 04-12-2023 CNOV Office Visit (GASTA5 ) -------- RICA STOUT ([id number]) 1995 F Date Time Provider Department 04/12/23 1:00 PM JEANNIE JARVIS GASTA5 During your visit today, we recorded the following information about you: Pulse Blood pressure Weight Height 112/minute 132/88 60.4 kg 1.626 m Jeannie Jarvsi APRN.DIRECTOR SUPPLIER QUALITY 05/24/2023 12:39 PM Signed NAME: Rica Stout AGE: [age] year old Patient is referred in consultation by for an opinion regarding hepatic steatosis and my final recommendations will be communicated back to the requesting physician by way of shared Medical Record. PRESENTING COMPLAINT: hepatic steatosis, elevated LFTs HISTORY Rica Stout is a 27 year old year old female with PMHx heroin abuse, ETOH abuse who presents with hepatic steatosis, elevated liver enzymes. Here today for further evaluation of elevated liver enzymes, hepatic steatosis. History of ETOH abuse, heroin abuse years prior [facility] for two years Recently hospitalized for lower extremity weakness. Found to have hepatic steatosis, mildly elevated LFTs. 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 Former daily ETOH use (6+ beers plus 3-4+ mixed drinks) for 2 years Nutrition: Does not follow specific diet New medications: Lyrica 75 mg Metabolic Syndrome Risk factors: 0/5 1) Diabetes/ Abnormal FBS >100mg/dL: no 2) Hypertension : no 3)Triglycerides more then 150: unknown 4) HDL (<50 female and <40 male): unknown 5) Central obesity ( Waist >102 men and >88 female) - Body mass index is 22.86 kg/(m2) Risk Factors for Liver Disease: 1. Blood transfusions before 1991: No 2. IVDA: Yes, last use 2018 3. Intranasal coccaine use: Yes, last 2017 4. Tattoos: No 5. Service: No 6. High risk sexual behavior: No 7. Alcohol: Yes, Last use mid-February. Former daily ETOH use (6+ beers plus 3-4+ mixed drinks) 8. Obesity: No 9. Hyperlipidemia: Unknown 10. Prolonged exposure to hepatotoxic meds: No 11. Other autoimmune disorders: No OTC herbal medications: Denies Tylenol use: Denies Denies jaundice, abdominal pain, N/V, constipation, diarrhea, hematemesis, hematochezia, ascites, episodes of confusion. IMAGING/PROCEDURES: ABD US 03/22/23: No past surgical history on file. No past medical history on file. Social History Tobacco Use Smoking status: Never Vaping Use Vaping Use: current everyday user Substances: Nicotine Substance Use Topics Alcohol use: Yes Drug use: Not Currently No current outpatient medications on file. No current facility-administered medications for this visit. ALLERGIES Allergen Reactions Penicillins Rash FAMILY HISTORY Liver Problems: No No family history on file. GI SPECIFIC ROS Filling up quickly at meals: No Loss of appetite: No Nausea: No Vomiting: No Abdominal pain: No Recent change in bowel movements: No Bloody or black, bowel movements: No Constipation: No Diarrhea: No Loss of control of bowel movements: No Thought or memory problems: No Fluid in abdomen (ascites): No Prominent leg swelling: yes, 2+ edema. Vomiting blood: No Recent change in weight: No PHYSICAL EXAMINATION There were no vitals taken for this visit. General Appearance: Well appearing, alert, in no acute distress, well-hydrated, well nourished. Eyes: no scleral icterus Abdomen: not distended, soft and depressible, no guarding or rebound, no palpable mass, no organomegaly Extremities: no cyanosis, no asterixis. 2+ pitting edema bilaterally Skin: no jaundice, no spider angiomas, no palmar erythema Macular rash with white macules of soles of feet, sides of feet, lower calves, and palms of hands. Neuro:alert, oriented x 3, pleasant and in no acute distress Animal Naming Test: 21 animals named Recent Labs: Hemoglobin (g/dL) Date Value 01/28/2023 12.8 Hematocrit (%) Date Value 01/28/2023 38.2 WBC (k/uL) Date Value 01/28/2023 8.78 Glucose (mg/dL) Date Value 01/28/2023 113 Potassium (mmol/L) Date Value 01/28/2023 3.1 Sodium (mmol/L) Date Value 01/28/2023 138 Chloride (mmol/L) Date Value 01/28/2023 100 CO2 (mmol/L) Date Value 01/28/2023 18 Creatinine (mg/dL) Date Value 01/28/2023 0.56 BUN (mg/dL) Date Value 01/28/2023 <2 Anion Gap (mmol/L) Date Value 01/28/2023 20 Calcium, Total (mg/dL) Date Value 01/28/2023 9.0 Alb (more content not included)... Normal [facility] Centromere Ab IF Ql (S)on Centromere Ab Qn (S) <0.2 Normal <1.0 [facility] Comment on above: Order Comment: Speci men Type: BLOOD SPECIMEN Ordering Facility: [facility] Address: [address] [address] Result Comment: Anti -centromere antibody is used as in aid in diagnosis of systemic sclerosis. Clinical correlation is required. Test Methodology: Multiplex flow immunoassay. Performed By: #### A JACOB, 5195-3, 56463-5, 06256-9 #### [facility] CLIA [id number] [facility] [place] [address] [place] CENTROMERE AB QUAL Negative Normal Negative [facility] Comment on above: Order Comment: Speci lowell Type: BLOOD SPECIMEN Ordering Facility: [facility] Address: [address] [address] Performed By: #### A JACOB, 5195-3, 18601-0, 52386-2 #### [facility] CLIA [id number] [address] [place] [address] [place] Ceruloplasmin SerPl-mCncon 0 04-12-2023 Ceruloplasmin [Mass/Vol] 29 mg/dL Normal 16-45 [facility] Comment on above: Order Comment: Speci men Type: BLOOD SPECIMEN Ordering Facility: [facility] Address: [address] [place] [address] Performed By: #### A JACOB, 5195-3, 20866-8, 02250-7 #### [facility] CLIA [id number] [address] [place] [address] [place] Chromatin Ab Qnon 04-12-2023 CHROMATIN AB QUAL Negative Normal Negative [facility] Comment on above: Order Comment: Speci men Type: BLOOD SPECIMEN Ordering Facility: [facility] Address: [address] [place] [address] Performed By: #### A JACOB, 5195-3, 87860-8, 88944-7 #### [facility] CLIA [id number] [address] [place] [address] [place] Chromatin Ab SerPl-aCncon Chromatin Ab Qn <0.2 Normal <1.0 [facility] Comment on above: Order Comment: Speci men Type: BLOOD SPECIMEN Ordering Facility: [facility] Address: [address] [place] [address] Result Comment: Test Methodology: Multiplex flow immunoassay. Performed By: #### Ceci JAMES, 5195-3, 32531-4, 88336-3 #### [facility] CLIA [id number] [address] [place] [address] [place] OMA Jo1 Ab Ser-aCncon 2022 Taylor-1 extractable nuclear Ab Qn (S) <0.2 Normal <1.0 [facility] Comment on above: Order Comment: Speci men Type: BLOOD SPECIMEN Ordering Facility: [facility] Address: [address] [place] [address] Performed By: #### A JACOB, 5195-3, 68617-5, 45262-1 #### [facility] CLIA [id number] [address] [place] [address] OF [place] OMA CENTRAL LAB TECHNICIAN Ab Ser-aCncon 2022 Ribonucleoprotein extractable nuclear Ab Qn (S) <0.2 Normal <1.0 [facility] Comment on above: Order Comment: Speci men Type: BLOOD SPECIMEN Ordering Facility: [facility] Address: [address] [place] [address] Performed By: #### A JACOB, 5195-3, 30829-5, 74912-1 #### [facility] CLIA [id number] [address] [place] [address] [place] Ribonucleoprotein extractable nuclear Ab Qn (S) 0.3 AI Normal <1.0 [facility] Comment on above: Order Comment: Speci men Type: BLOOD SPECIMEN Ordering Facility: [facility] Address: [address] [place] [address] Performed By: #### Ceci JAMES, 5195-3, 58107-9, 08466-1 #### [facility] CLIA [id number] [address] [place] [address] OF [place] OMA SM IgG Ser-aCncon 2022 Rico extractable nuclear IgG Qn (S) <0.2 Normal <1.0 [facility] Comment on above: Order Comment: Speci men Type: BLOOD SPECIMEN Ordering Facility: [facility] Address: [address] [place] [address] Performed By: #### A JACOB, 5195-3, 49809-1, 60618-6 #### [facility] CLIA [id number] [address] [place] [address] [place] OMA SS-A Ab Ser-aCncon 04-12 Sjogrens syndrome-A extractable nuclear Ab Qn (S) <0.2 Normal <1.0 [facility] Comment on above: Order Comment: Speci men Type: BLOOD SPECIMEN Ordering Facility: [facility] Address: [address] [address] Result Comment: Test Methodology: Multiplex flow immunoassay. Performed By: #### A JACOB, 5195-3, 44079-5, 30714-2 #### [facility] CLIA [id number] [address] [place] [address] [place] OMA SS-B Ab Ser-aCncon 04-12 Sjogrens syndrome-B extractable nuclear Ab Qn (S) <0.2 Normal <1.0 [facility] Comment on above: Order Comment: Speci men Type: BLOOD SPECIMEN Ordering Facility: [facility] Address: [address] [place] [address] Result Comment: Anti -SSB (anti-La) antibody is used as an aid in diagnosis of a variety of systemic autoimmune diseases, especially for Sjogren's syndrome and systemic lupus erythematosus. Clinical correlation is required. Test Methodology: Multiplex flow immunoassay. Performed By: #### A JACOB, 5195-3, 34187-9, 45691-7 #### [facility] CLIA [id number] [address] [place] [address] [place] Ferritin SerPl-mCncon 2022 Ferritin [Mass/Vol] 667.0 ng/mL High 14.7-205.1 [facility] Comment on above: Order Comment: Speci men Type: BLOOD SPECIMEN Ordering Facility: [facility] Address: [address] [place] [address] Performed By: #### 2 4331-1, 22232-9, 2276-4 #### [facility] CLIA [id number] [address] [place] [address] [place] HBV core Ab Ser Qlon 023 HBV core Ab Ql (S) Positive Abnormal Negative [facility] Comment on above: Order Comment: Speci men Type: BLOOD SPECIMEN Ordering Facility: [facility] Address: [address] [place] [address] Result Comment: The result suggests either current or past infection with Hepatitis B virus. Non-specific reactivity may at times be seen with this test due to some underlying phenomena. Please correlate with HBsAg result and medical history. Performed By: #### A BERTHAG, 5195-3, 05766-3, 02451-6 #### [facility] CLIA [id number] [address] [place] HBV surface Ab Ql (S)on 03-23 HBV surface Ab Qn (S) 45.61 mIU/mL Normal [facility] Comment on above: Order Comment: Speci men Type: BLOOD SPECIMEN Ordering Facility: [facility] Address: [address] [place] [address] Result Comment: <8 m IU/mL: No serological evidence of immunity to Hepatitis B Virus. >/= 8 to <12 mIU/mL: No serological evidence of immunity to Hepatitis B Virus. >/= 12 mIU/mL: Consistent with serological evidence of immunity to Hepatitis B Virus. Performed By: #### A HAVG, 5195-3, 27992-3, 92463-3 #### [facility] CLIA [id number] [address] OF [facility] HBV surface Ab Ser Qlon 03-23 HBV surface Ab Ql (S) Positive Normal [facility] Comment on above: Order Comment: Speci men Type: BLOOD SPECIMEN Ordering Facility: [facility] Address: [address] [place] [address] Result Comment: Cons istent with serological evidence of immunity to Hepatitis B Virus. Performed By: #### A HAVG, 5195-3, 71775-0, 75360-8 #### [facility] CLIA [id number] [address] [place] HBV surface Ag Ser Qlon 03-23 HBV surface Ag Ql (S) Negative Normal Negative [facility] Comment on above: Order Comment: Speci men Type: BLOOD SPECIMEN Ordering Facility: [facility] Address: [address] [place], [place] [address] Performed By: #### A HAVG, 5195-3, 00616-8, 78159-1 #### [facility] CLIA [id number] [address] [place] [address] OF [facility] HCV Ab Ser Qlon 04-12-2023 HCV Ab Ql (S) Negative Normal Negative [facility] Comment on above: Order Comment: Speci men Type: BLOOD SPECIMEN Ordering Facility: [facility] Address: [address] [address] Result Comment: The result suggests no evidence of active infection with Hepatitis C virus. Should recent infection be suspected, repeat testing may be considered 4-6 weeks after this draw. Performed By: #### A HAVG, 5195-3, 83398-8, 08948-5 #### [facility] CLIA [id number] [address] [place] [address] OF [place] HEPATITIS A ANTIBODY, IGGon 04-12-2023 HAV IgG Ql (S) Negative Normal [facility] Comment on above: Order Comment: Speci lowell Type: BLOOD SPECIMEN Ordering Facility: [facility] Address: [address] [place] [address] Result Comment: No s erological evidence of immunity to Hepatitis A Virus. Performed By: #### A HAVG, 5195-3, 96056-6, 23838-9 #### [facility] CLIA [id number] [address] [place] [address] OF [place] HFE (HEMOCHROMATOSIS)on 03-23 INTERPRETATION (HEMDNA) Normal C [facility] Comment on above: Order Comment: [facility] Type: BLOOD SPECIMEN Ordering Facility: [facility] Address: [address] [place] [address] Result Comment: HFE (Hemochromatosis) Laboratory Accession Number: [id number] Result: C282Y: WT H63D: WT S65C: WT Interpretation: No variant detected: The DNA sample is negative for the C282Y, H63D and S65C variants of the HFE gene. Variants at these loci are commonly associated with hereditary hemochromatosis (HH). Approximately 13% of clinically affected individuals may have this negative result, suggesting other etiologies for hereditary hemochromatosis. Methodology: Patient DNA is evaluated for C282Y (c.845G>A, p.Kca738Mux, NM_000410.3), H63D (c.187C>G, p.Qux68Tup, NM_000410.3) and S65C variant (c.193A>T, p.Prt32Gsh, NM_000410.3) missense variants in the HFE gene (NM_000410.3, GRCh37(hg19)) by multiplex polymerase chain reaction (PCR) followed by melting curve analysis. Disclaimer: This test was developed and its performance characteristics determined by [facility] [place] ([facility]). It has not been cleared or approved by the FDA. [facility] is regulated under CLIA as certified to perform high- complexity testing. This test is used for clinical purposes. It should not be regarded as investigational or for research. Testing and interpretation performed at [facility], [address] [place] [address]. CLIA Number: [id number] As reviewed by Saritha Swan MD Performed By: #### H JAYSON #### [facility] CLIA [id number] [address] [place] [address] HbA1c (Bld)on 04-12-2023 Average glucose Estimated from glycated hemoglobin (Bld) [Mass/Vol] 85 mg/dL Normal [facility] Comment on above: Order Comment: Speci men Type: BLOOD SPECIMEN Ordering Facility: [facility] Address: [address] [place] [address] Result Comment: eAG: (Estimated average glucose) is a calculated value from HgbA1c and is automobile rental representative of the average blood glucose level in the last 2-3 month period. Performed By: #### A HAVG, 5195-3, 10793-4, 45825-8 #### [facility] CLIA [id number] [address] [place] [address] STATES [place] HbA1c (Bld) [Mass fraction] 4.6 % Normal 4.3-5.6 [facility] Comment on above: Order Comment: Jim etienne Type: BLOOD SPECIMEN Ordering Facility: [facility] Address: [address] [place] [address] Result Comment: Ammimi ican Diabetes Association guidelines indicate that patients with HgbA1c in the range 5.7-6.4% are at increased risk for development of diabetes, and intervention by lifestyle modification may be beneficial. HgbA1c greater or equal to 6.5% is considered diagnostic of diabetes. Performed By: #### A HAVG, 5195-3, 81892-0, 08246-0 #### [facility] CLIA [id number] [address] [place] [address] [place] Hepatic function 2000 panelo n 04-12-2023 Albumin [Mass/Vol] 4.4 g/dL Normal 3.9-4.9 [facility] Comment on above: Order Comment: Jim etienne Type: BLOOD SPECIMEN Ordering Facility: [facility] Address: [address] [place] [address] Performed By: #### 2 4331-1, 18708-5, 2276-4 #### [facility] CLIA [id number] [address] [place] [address] [place] ALP [Catalytic activity/Vol] 78 U/L Normal 34-123 [facility] Comment on above: Order Comment: Jim etienne Type: BLOOD SPECIMEN Ordering Facility: [facility] Address: [address] [place] [address] Performed By: #### 2 4331-1, 88678-5, 2276-4 #### [facility] CLIA [id number] [address] [place] [address] OF [place] ALT [Catalytic activity/Vol] 81 U/L High 7-38 [facility] Comment on above: Order Comment: Jim etienne Type: BLOOD SPECIMEN Ordering Facility: [facility] Address: [address] [place] [address] Performed By: #### 2 4331-1, 69506-3, 2275-4 #### [facility] CLIA [id number] [address] [place] [address] [place] AST [Catalytic activity/Vol] 76 U/L High 13-35 [facility] Comment on above: Order Comment: Speci men Type: BLOOD SPECIMEN Ordering Facility: [facility] Address: [address] Performed By: #### 2 4331-1, 20604-8, 2275-4 #### [facility] CLIA [id number] [address] [place] [address] [place] Bilirubin [Mass/Vol] 0.5 mg/dL Normal 0.2-1.3 [facility] Comment on above: Order Comment: Speci men Type: BLOOD SPECIMEN Ordering Facility: [facility] Address: [address] Performed By: #### 2 4331-1, 58931-5, 4 #### [facility] CLIA [id number] [address] [place] [address] [place] Bilirubin.conjugated [Mass/Vol] mg/dL Normal <0.2 [facility] Comment on above: Order Comment: Speci men Type: BLOOD SPECIMEN Ordering Facility: [facility] Address: [address] [id number] Performed By: #### 2 4331-1, 95158-6, 2275-4 #### [facility] CLIA [id number] [address] [place] [address] [place] Protein [Mass/Vol] 7.7 g/dL Normal 6.3-8.0 [facility] Comment on above: Order Comment: Speci men Type: BLOOD SPECIMEN Ordering Facility: [facility] Address: [address] Performed By: #### 2 4331-1, 77500-5, 6-4 #### [facility] CLIA [id number] [address] [place] [address] [place] Iron and Iron binding capaci ty panelon 04-12-2023 Iron [Mass/Vol] 138 ug/dL Normal 41-186 [facility] Comment on above: Order Comment: Speci men Type: BLOOD SPECIMEN Ordering Facility: [facility] Address: [address] [place], [place] [address] Performed By: #### 2 4331-1, 91186-1, 2275-4 #### [facility] [place] [id number] [address] [place] [address] [place] Iron binding capacity [Mass/Vol] 408 ug/dL High 232-386 [facility] Comment on above: Order Comment: Speci men Type: BLOOD SPECIMEN Ordering Facility: [facility] Address: [address] [place], [place] [address] Performed By: #### 2 4331-1, 52031-9, 4 #### [facility] [place] [id number] [address] [place] [address] [place] Iron/TIBC [Molar ratio] 33.8 % Normal 15.0-57.0 [facility] Comment on above: Order Comment: Speci men Type: BLOOD SPECIMEN Ordering Facility: [facility] Address: [address] [place] [address] Performed By: #### 2 4331-1, 10014-0, 4 #### [facility] [place] [id number] [address] [place] [address] OF [place] Taylor-1 extractable nuclear Ab Qn (S)on 04-12-2023 TAYLOR 1 ANTIBODY QUAL Negative Normal Negative [facility] Comment on above: Order Comment: Speci men Type: BLOOD SPECIMEN Ordering Facility: [facility] Address: [address] [place], [place] [address] Result Comment: Anti -TAYLOR-1 antibody is used as an aid in diagnosis of polymyositis and dermatomyositis especially with pulmonary involvement. A negative result cannot rule out polymyositis or dermatomyositis. Clinical correlation is required. Test Methodology: Multiplex flow immunoassay. Performed By: #### A BERTHAG, 5195-3, 43696-4, 68145-3 #### [facility] CLIA [id number] [address] OF [place] LKM ABon 04-12-2023 LIVER-KIDNEY MICROSOMAL ABS <1:20 Normal <1:20 [facility] Comment on above: Order Comment: Speci men Type: BLOOD SPECIMEN Ordering Facility: [facility] Address: [address] [place], [place] [address] Result Comment: INTE RPRETIVE INFORMATION: Kvslp-Cshbbn-Aakovvdga Abs, IgG Liver-Kidney Microsome IgG antibody (anti-LKM), as detected by indirect immunofluorescent antibody (IFA) techniques, may be observed in patients with autoimmune hepatitis type 2 (AIH-2), AIH-2 associated with autoimmune njwybxkyerxlowjvyl-sastsqzzuch-citreqrwuj dystrophy (APECED), viral hepatitis C or D, and some forms of drug-induced hepatitis. This IFA does not differentiate among the four types of LKM antibodies (LKM-1, LKM-2, LKM-3, and a fourth type that recognizes CY and CY antigens). Of these, anti-LKM-1 (cytochrome [id number]) IgG antibodies are considered specific for AIH-2. This test was developed and its performance characteristics determined by [employer]. It has not been cleared or approved by the US Food and Drug Administration. This test was performed in a CLIA certified laboratory and is intended for clinical purposes. Performed By: [facility] [address] [place] [address] Backer Up: Luis Blunt MD, PhD CLIA Number: [id number] Performed By: #### A HAVG, 5195-3, 47040-8, 37255-0 #### [facility] CLIA [id number] [address] [place] [address] [place] Lipid 1996 panelon 3 Cholesterol [Mass/Vol] 272 mg/dL High <200 [facility] Comment on above: Order Comment: Speci men Type: BLOOD SPECIMEN Ordering Facility: [facility] Address: [address] [place], [place] [address] Result Comment: <200 mg/dL, Desirable 200-239 mg/dL, Borderline high >239 mg/dL, High Performed By: #### 2 4331-1, 18090-2, 2275- #### [facility] CLIA [id number] [address] [place] [address] [place] Cholesterol in HDL [Mass/Vol] 51 mg/dL Normal >39 [facility] Comment on above: Order Comment: Jim lowell Type: BLOOD SPECIMEN Ordering Facility: [facility] Address: [address] [place] [address] Result Comment: 40-5 9 mg/dL, Acceptable >59 mg/dL, High: Negative risk factor for coronary heart disease <40 mg/dL, Low: Positive risk factor for coronary heart disease Performed By: #### 2 4331-1, 96115-2, 2275-10 #### [facility] CLIA [id number] [address] [place] [address] [place] Cholesterol in LDL [Mass/Vol] 173 mg/dL High <100 [facility] Comment on above: Order Comment: Speci lowell Type: BLOOD SPECIMEN Ordering Facility: [facility] Address: [address] [place], [place] [address] Result Comment: <100 mg/dL, Optimal 100-129 mg/dL, Near optimal/above optimal 130-159 mg/dL, Borderline high 160-189 mg/dL, High >189 mg/dL, Very high Secondary prevention optimal LDL Cholesterol levels are recommended to be < 70 mg/dL Performed By: #### 2 4331-1, 50167-3, 2275- #### [facility] CLIA [id number] [address] [place] [address] [place] Cholesterol in LDL/Cholesterol in HDL [Mass ratio] 3.39 {ratio} High <2.54 [facility] Comment on above: Order Comment: Jim etienne Type: BLOOD SPECIMEN Ordering Facility: [facility] Address: [address] [place] [address] Result Comment: Jose hale: 1. National Cholesterol Education Program ATP III Guideline At-A-Glance Quick Desk Reference: National Heart, Lung, and Blood [place]. National Institutes of Health. 2001: NIH Publication No. 01-3305. 2. An International Atherosclerosis Society position paper: global recommendations for the management of dyslipidemia: executive summary, Atherosclerosis. 2014: 232(2):410-413. Performed By: #### 2 4331-1, 94544-9, 2275- #### [facility] CLIA [id number] [address] STATES [place] Cholesterol in VLDL [Mass/Vol] 48 mg/dL High <30 [facility] Comment on above: Order Comment: Jim etienne Type: BLOOD SPECIMEN Ordering Facility: [facility] Address: [address] [place], [place] [address] Performed By: #### 2 4331-1, 07477-3, 2275-10 #### [facility] CLIA [id number] [address] [place] [address] Cholesterol non HDL [Mass/Vol] 221 mg/dL High <130 [facility] Comment on above: Order Comment: Jim etienne Type: BLOOD SPECIMEN Ordering Facility: [facility] Address: [address] [place], [place] [address] Result Comment: <130 mg/dL, Optimal 130-159 mg/dL, Near optimal/above optimal 160-189 mg/dL, Borderline high 190-219 mg/dL, High >219 mg/dL, Very high Secondary prevention optimal non HDL Cholesterol levels are recommended to be <100 mg/dL Performed By: #### 2 4331-1, 55675-3, 2275-4 #### [facility] CLIA [id number] [address] Cholesterol.total/Shannon sterol in HDL [Mass ratio] 5.33 {ratio} High <5.10 [facility] Comment on above: Order Comment: Speci men Type: BLOOD SPECIMEN Ordering Facility: [facility] Address: [address] [place] [address] Performed By: #### 2 4331-1, 29569-4, 2275-4 #### [facility] CLIA [id number] [address] [place] [address] FASTING TIME 12 hrs Normal [facility] Comment on above: Order Comment: Speci men Type: BLOOD SPECIMEN Ordering Facility: [facility] Address: [address] [place] [address] Performed By: #### 2 4331-1, 08569-4, 2275-4 #### [facility] CLIA [id number] [address] [place] [address] OF [place] Triglyceride [Mass/Vol] 238 mg/dL High <150 [facility] Comment on above: Order Comment: Speci men Type: BLOOD SPECIMEN Ordering Facility: [facility] Address: [address] [place] [address] Result Comment: <150 mg/dL, Normal 150-199 mg/dL, Borderline high 200-499 mg/dL, High >499 mg/dL, Very high Performed By: #### 2 4331-1, 62745-6, 2275- #### [facility] CLIA [id number] [address] [place] [address] [place] Mitochondria Ab IF Ql (S)on 04-12-2023 Mitochondria M2 Ab IA Qn (S) 2.4 Units Normal <=20.0 [facility] Comment on above: Order Comment: Speci men Type: BLOOD SPECIMEN Ordering Facility: [facility] Address: [address] [place] [address] Performed By: #### A BERTHAG, 5195-3, 69419-6, 00999-9 #### [facility] CLIA [id number] [facility] [place] [address] [place] Mitochondria M2 Ab Ql (S) Negative Normal Negative [facility] Comment on above: Order Comment: Speci men Type: BLOOD SPECIMEN Ordering Facility: [facility] Address: [address] [place] [address] Result Comment: Anti -mitochondrial antibody test is used as an aid in diagnosis of primary biliary cholangitis. Clinical correlation is required. Performed By: #### A JACOB, 5195-3, 96553-9, 67292-6 #### [facility] CLIA [id number] [address] [place] [address] [place] PHOSPHATIDYLETHANOL (PETH)on 04-12-2023 EER PETH See Note Normal [facility] Comment on above: Order Comment: Speci men Type: BLOOD SPECIMEN Ordering Facility: [facility] Address: [address] [place] [address] Result Comment: Auth orized individuals can access the [employer] Enhanced Report using the following link: [email or web address] Performed By: [facility] [address] [place] [address] Backer Up: Luis Blunt MD, PhD CLIA Number: [id number] Performed By: #### A JACOB, 5195-3, 53528-1, 22646-8 #### [facility] CLIA [id number] [address] [place] [address] [place] PETH 16:0/18.2 (PLPETH) 228 ng/mL Normal [facility] Comment on above: Order Comment: Speci men Type: BLOOD SPECIMEN Ordering Facility: [facility] Address: [address] [place] [address] Performed By: #### A JACOB, 5195-3, 58746-6, 60406-2 #### [facility] CLIA [id number] [address] [place], [place] [address], [place] [address] [place] PETH 16:0/18:1 (POPETH) 243 ng/mL Normal [facility] Comment on above: Order Comment: Speci men Type: BLOOD SPECIMEN Ordering Facility: [facility] Address: [address] [place] [address] Result Comment: INTE RPRETIVE INFORMATION:Phosphatidylethanol (PEth), Whole Blood Phosphatidylethanol (PEth) homologues Result Interpretation PEth 16:0/18:1 (POPEth) Less than 10 ng/mL............Not detected Less than 20 ng/mL............Abstinence or light alcohol consumption 20 - 200 ng/mL................Moderate alcohol consumption Greater than 200 ng/mL........Heavy alcohol consumption or chronic alcohol use PEth 16:0/18:2 (PLPEth).......Reference ranges are not well established. (Reference: Enid Salas and Caro Rico 2018 J. Forensic Sci) Phosphatidylethanol (PEth) is a group of phospholipids formed in the presence of ethanol, phospholipase D and phosphatidylcholine. PEth is known to be a direct alcohol biomarker. The predominant PEth homologues are PEth 16:0/18:1 (POPEth) and PEth 16:0/18:2 (PLPEth), which account for 37-46% and 26-28% of the total PEth homologues, respectively. PEth is incorporated into the phospholipid membrane of red blood cells and has a general half-life of 4-10 days and a window of detection of 2-4 weeks. However, the window of detection is longer in individuals who chronically or excessively consume alcohol. The limit of quantification is 10 ng/mL. Serial monitoring of PEth may be helpful in monitoring alcohol abstinence over time. PEth results should be interpreted in the context of the patient's clinical and behavioral history. Patients with advanced liver disease may have falsely elevated PEth concentrations (Radha QUIROZ et al 2018, Alcoholism Clinical and Experimental Research). This test was developed and its performance characteristics determined by [employer]. It has not been cleared or approved by the U.S. Food and Drug Administration. This test was performed in a CLIA-certified laboratory and is intended for clinical purposes. Performed By: #### A JACOB, 5195-3, 05065-3, 77684-0 #### [facility] CLIA [id number] [address] [place] [address] [place] PT panel Coag (PPP)on 2022 INR Coag (PPP) [Relative time] 1.0 {INR} Normal 0.9-1.3 [facility] Comment on above: Order Comment: Speci men Type: BLOOD SPECIMEN Ordering Facility: [facility] Address: [address] Result Comment: Adrienne min K Antagonist (VKA) Therapeutic Range: INR 2 to 3 (Target INR of 2.5) Note: For patients treated with VKA drugs, such as warfarin, the [place] [employer] 2012 Guideline recommends a therapeutic INR range of 2 to 3 (target INR of 2.5). This recommendation includes high-risk patients with antiphospholipid syndrome with previous arterial or venous thromboembolism, current-generation mechanical or bioprosthetic aortic heart valve replacement. Note: Patients with mechanical aortic valve replacement and additional risk factors for thromboembolic events (atrial fibrillation, previous thromboembolism, LV dysfunction, hypercoagulable conditions) or an older generation mechanical AVR (i.e., ball in-Cage) or any mechanical MVR should have a INR therapeutic range of 2.5 to 3.5 (target INR of 3). Arlet GH, et al. Chest 2012, 141:7S-47S Mamadou RA, et al. [facility] 2017, 70: 252-289 Performed By: #### A JACOB, 5195-3, 08506-1, 69509-7 #### [facility] CLIA [id number] [address] [place] [address] [place] PT Coag (PPP) [Time] 10.4 s Normal 9.7-13.0 [facility] Comment on above: Order Comment: Speci men Type: BLOOD SPECIMEN Ordering Facility: [facility] Address: [address] [id number] Performed By: #### A JACOB, 5195-3, 82711-2, 71611-1 #### [facility] CLIA [id number] [address] [place] [address] [place] Ribonucleoprotein extractabl e nuclear Ab Qn (S)on 04-12-2023 ANTI-CENTRAL LAB TECHNICIAN QUAL Negative Normal Negative [facility] Comment on above: Order Comment: Speci men Type: BLOOD SPECIMEN Ordering Facility: [facility] Address: [address] [place] [address] Performed By: #### A JACOB, 5195-3, 40482-1, 02405-8 #### [facility] CLIA [id number] [address] [place] [address] [place] RIBOSOMAL CENTRAL LAB TECHNICIAN QUAL Negative Normal Negative [facility] Comment on above: Order Comment: Speci men Type: BLOOD SPECIMEN Ordering Facility: [facility] Address: [address] [place] [address] Result Comment: Anti -Ribosomal RNA (Ribosomal P) antibody is used as an aid in diagnosis of systemic autoimmune diseases especially systemic lupus erythematosus and mixed connective tissue disease. Cross-reactivity with Anti-rico antibody is not uncommon. Clinical correlation is required. Test Methodology: Multiplex flow immunoassay. Performed By: #### A JACOB, 5195-3, 06141-3, 11456-2 #### [facility] CLIA [id number] [address] [place] [address] [place] SCL-70 extractable nuclear I gG IA Qn (S)on 04-12-2023 SCLERODERMA AB QUAL Negative Normal Negative [facility] Comment on above: Order Comment: Speci men Type: BLOOD SPECIMEN Ordering Facility: [facility] Address: [address] [place], [place] [address] Performed By: #### A JACOB, 5195-3, 82157-0, 74134-6 #### [facility] CLIA [id number] [facility] [place] [address] [place] SCLERODERMA IGG AB <0.2 Normal <1.0 [facility] Comment on above: Order Comment: Speci lowell Type: BLOOD SPECIMEN Ordering Facility: [facility] Address: [address] [place] [address] Result Comment: Scl- 70/Scleroderma antibody test is used as an aid in diagnosis of systemic sclerosis especially the diffuse cutaneous form. A negative result cannot rule out systemic sclerosis. The final interpretation should consider clinical picture and other test results such as anti-centromere antibody. Test Methodology: Multiplex flow immunoassay. Performed By: #### A JACOB, 5195-3, 61563-4, 78511-5 #### [facility] CLIA [id number] [address] [place] [address] [place] Sjogrens syndrome-A extracta ble nuclear Ab Qn (S)on 04-12-2023 SSA ANTIBODY QUAL Negative Normal Negative [facility] Comment on above: Order Comment: Jim etienne Type: BLOOD SPECIMEN Ordering Facility: [facility] Address: [address] [place] [address] Performed By: #### A JACOB, 5195-3, 94524-3, 91046-6 #### [facility] CLIA [id number] [address] [place] [address] [place] Sjogrens syndrome-B extracta ble nuclear Ab Qn (S)on 04-12-2023 SSB ANTIBODY QUAL Negative Normal Negative [facility] Comment on above: Order Comment: Speci men Type: BLOOD SPECIMEN Ordering Facility: [facility] Address: [address] [place] [address] Performed By: #### A JACOB, 5195-3, 26406-3, 90724-4 #### [facility] CLIA [id number] [address] [place] [address] [place] Rico extractable nuclear Ig G Qn (S)on 04-12-2023 SM ANTIBODY QUAL Negative Normal Negative [facility] Comment on above: Order Comment: Speci men Type: BLOOD SPECIMEN Ordering Facility: [facility] Address: [address] [place] [address] Result Comment: Anti -Sm (Rico) antibody is used as an aid in diagnosis of systemic lupus erythematosus and its presence is associated with renal disease. A negative result cannot rule out systemic lupus erythematosus. Clinical correlation is required. Test Methodology: Multiplex flow immunoassay. Performed By: #### A JACOB, 5195-3, 55028-7, 76713-8 #### [facility] CLIA [id number] [address] [place] [address] [place] Smooth muscle Ab Ql (S)on ACTIN SMOOTH MUSCLE IGG QUALITATIVE Negative Normal Negative [facility] Comment on above: Order Comment: Speci men Type: BLOOD SPECIMEN Ordering Facility: [facility] Address: [address] [place] [address] Performed By: #### A JACOB, 5195-3, 84178-3, 47921-6 #### [facility] CLIA [id number] [address] [place] [address] [place] ACTIN SMOOTH MUSCLE IGG QUANTITATIVE 3 Units Normal <20 [facility] Comment on above: Order Comment: Speci men Type: BLOOD SPECIMEN Ordering Facility: [facility] Address: [address] [place] [address] Performed By: #### A JACOB, 5195-3, 27280-3, 26010-5 #### [facility] CLIA [id number] [address] [place] [address] OF AYSHA dsDNA Ab Ser IA-aCncon 04-12 DNA double strand Ab IA Qn (S) <12 Normal <30 [facility] Comment on above: Order Comment: Speci men Type: BLOOD SPECIMEN Ordering Facility: [facility] Address: [address] [place] [address] Result Comment: Nega tive for ds DNA Antibodies. <30 IU/mL Negative 30-74 IU/mL Equivocal >74 IU/mL Positive Performed By: #### A JACOB, 5195-3, 94357-0, 56618-9 #### [facility] CLIA [id number] [address] [place] [address] Uzma 04-11-2023 CNPN Telephone (GASTA5) -------- RICA STOUT ([id number]) 1995 F Date Time Provider Department 04/11/23 MARY CAGLE ([facility]) GASTA5 During your visit today, we recorded the following information about you: Mary Cagle 04/11/2023 2:48 PM Signed Called Rica Stout to remind them of an appointment with Jeannie Jarvis on 04/12/23. Left Message for patient. Allergies As of Date: 04/11/2023 Noted Allergy Reaction PENICILLINS 01/28/2023 2 - Rash Date Reviewed: 01/28/2023 Reviewed by: Ghulam Villalobos RN - Fully Assessed Reason for Visit: Appointment [186] Problem List As Of Date: 04/11/2023 (None) Encounter Status:Closed by MARY CAGLE on 04/11/23 [facility] -------- RICA STOUT ([id number]) 1995 F Date Time Provider Department 04/11/23 JEANNIE JARVISA5 During your visit today, we recorded the following information about you: Gretta Ribeiro 04/11/2023 3:29 PM Signed Received outside medical records from [facility], scanned into her chart under scanned docs tab in [facility]. Allergies As of Date: 04/11/2023 Noted Allergy Reaction PENICILLINS 01/28/2023 2 - Rash Date Reviewed: 01/28/2023 Reviewed by: Ghulam Villalobos RN - Fully Assessed Reason for Visit: Received Outside Medical Records [[id number]] Prescriptions as of 07/23/2023 - gabapentin (NEURONTIN) 300 mg capsule Take 300 mg by mouth two times a day. - metoprolol succinate ER (TOPROL XL) 25 mg 24 hr tablet Take 25 mg by mouth once daily. - ibuprofen (MOTRIN) 400 mg tablet Take 1 tablet by mouth three times a day. - DULoxetine (CYMBALTA) 60 mg capsule Take 60 mg by mouth once daily. - folic acid 1 mg tablet TAKE 1 TABLET EVERY MORNING FOR 30 DAYS - magnesium oxide 200 mg magnesium chew OTC magnesium 200 mg BID - potassium chloride 20 mEq TbER TAKE 1 TABLET WITH FOOD ORALLY TWICE A DAY 30 DAYS - pregabalin (LYRICA) 75 mg capsule Take 75 mg by mouth. - thiamine (VITAMIN B1) 100 mg tablet Take 100 mg by mouth every morning. Problem List As Of Date: 04/11/2023 (None) Encounter Status:Closed by GRETTA RIBEIRO on 07/23/23 Normal [facility] MR cervical spine wo/w conon 04-01-2023 MR cervical spine wo/w [place] [address] MRI Report Signed Patient: Rica Stout MR#: [id number] 39 : 1995 Acct:[id number] Age/Sex: 27 / F ADM Date: 03/27/23 Loc: Room: 6P0314-8 Type: ADM IN Attending Dr: Marc Giron MD Copies to: Marc Giron MD Ordering Provider: Marc Giron MD Date of Service: 04/01/23 MR/MR cervical spine wo/w con: upper extremity paresthesias/weakness MR cervical spine wo/w con 04/01/2023 9:47 AM SIGNS AND SYMPTOMS: Peripheral neuropathy, sensory disturbance in feet PROTOCOL: Multiplanar multisequence MR images of the cervical spine were obtained with and without IV contrast CONTRAST: 12 mL of intravenous ProHance COMPARISON: None. FINDINGS: The bones of the cervical spine are in anatomic alignment. There is preservation of vertebral body heights and intervertebral disc spaces. The marrow signal is within normal limits. The cord is normal in signal. No epidural or paraspinous fluid collection is appreciated. The visualized paraspinous soft tissues are within normal limits. The prevertebral soft tissues are within normal limits. There is no abnormal postcontrast enhancement. At C2-C3: There is a normal disc, central canal, and neural foramen. At C3-C4: There is a normal disc, central canal, and neural foramen. At C4-C5: There is a normal disc, central canal, and neural foramen. At C5-C6: There is a normal disc, central canal, and neural foramen. At C6-C7: There is a normal disc, central canal, and neural foramen. At C7-T1: There is a normal disc, central canal, and neural foramen. MR/MR cervical spine wo/w con IMPRESSION: No cord compression, cord signal abnormality, or abnormal postcontrast enhancement. No significant spinal canal or neural foraminal narrowing. Impression dictated by: Lowell Blake M.D.04/01/2023 5:09 PM Dictation Location: [place] [address] Transcribed By: [facility] 04/01/231708 Dictated By: Lowell Blake II, MD 04/01/231704 Signed By: 04/01/231708 Normal [facility] US venous duplex LE BIon US venous duplex LE BI [facility] [place] [address] Ultrasound Report Signed Patient: Rica Stout MR#: [id number] 39 : 1995 Acct:[id number] Age/Sex: 27 / F ADM Date: 03/27/23 Loc: Room: 2V5583-4 Type: ADM IN Attending Dr: Marc Giron MD Ordering Provider: Marc Giron MD Date of Service: 04/01/23 US/US venous duplex LE BI: increased pain/edema Copies to: Marc Giron MD BILATERAL LOWER EXTREMITY VENOUS DUPLEX INDICATION: Painful swollen legs PROCEDURE: Color-flow duplex scanning is used to interrogate the deep venous system of the right and left lower extremities. The common femoral vein, femoral vein and popliteal vein show good compressibility with normal proximal and distal augmentation. The posterior tibial and peroneal veins are compressible. US/US venous duplex LE IMPRESSION: NO EVIDENCE FOR DEEP VEIN THROMBOSIS OR PROXIMAL SUPERFICIAL THROMBOPHLEBITIS IN THE RIGHT OR LEFT LOWER EXTREMITY. Impression dictated by: Dave Gonzalez M.D.04/01/2023 3:37 PM Dictation Location: [place] [address] Tech: Nia Hill Transcribed By: RAJESH 04/01/231536 Dictated By: Dave Gonzalez MD 04/01/231536 Signed By: 04/01/231536 [facility] ECG 12 lead ECGon 03-31-2023 ECG 12 lead [place] [address] Electrocardiograph Report Signed Patient: Rica Stout MR#: [id number] 39 : 1995 Acct:[id number] Age/Sex: 27 / F ADM Date: 03/27/23 Loc: Room: [address] [place] [address] Type: ADM IN Attending Dr: Marc Giron MD Ordering Provider: Marc Giron MD Date of Service: 03/31/2305/13/500 ECG/ECG 12 lead ECG: baseline Copies to: Test Reason : Blood Pressure : / mmHG Vent. Rate : 088 BPM Atrial Rate : 088 BPM P-R Int : 140 ms QRS Dur : 072 ms QT Int : 352 ms P-R-T Axes : 046 070 044 degrees QTc Int : 425 ms Normal sinus rhythm Normal ECG When compared with ECG of 21-MAR-2023 19:32, No significant change was found Confirmed by TIKA LAWRENCE MD ([id number]) on 03/31/2023 8:18:57 PM Referred By: Electronically Signed By:TIKA LAWRENCE MD Transcribed By: MUS Signed By Tika Lawrence MD 0 03/31/232018 Normal [facility] Alanine aminotransferase [En zymatic activity/volume] in Serum or PlasmaOrdered By: Marc Giron on 03-28-2023 ALT [Catalytic activity/Vol] 31 U/L 7-52 [facility] Albumin [Mass/volume] in Ser um or Plasma by Bromocresol green (BCG) dye binding methoOrdered By: Marc Giron on 03-28-2023 Albumin BCG dye [Mass/Vol] 3.3 g/dL 3.5-5.7 [facility] Alkaline phosphatase [Enzyma tic activity/volume] in Serum or PlasmaOrdered By: Marc Giron on 03-28-2023 ALP [Catalytic activity/Vol] 95 U/L 34-104 [facility] Aspartate aminotransferase [ Enzymatic activity/volume] in Serum or PlasmaOrdered By: Marc Giron on 03-28-2023 AST [Catalytic activity/Vol] 55 U/L 13-39 [facility] Basophils Auto (Bld) [#/Vol] Ordered By: Marc Giron on 03-28-2023 Basophils (Bld) [#/Vol] 0.1 10*3/uL 0.0-0.2 [facility] Basophils/100 WBC Auto (Bld) Ordered By: Marc Giron on 03-28-2023 Basophils/100 WBC (Bld) 1.4 % . [facility] Bilirubin.total [Mass/volume ] in Serum or PlasmaOrdered By: Marc Giron on 03-28-2023 Bilirubin [Mass/Vol] 0.3 mg/dL 0.3-1.0 [facility] Calcium [Mass/volume] in Ser um or PlasmaOrdered By: Marc Giron on 03-28-2023 Calcium [Mass/Vol] 9.2 mg/dL 8.6-10.3 [facility] Carbon dioxide, total [Moles /volume] in Serum or PlasmaOrdered By: Marc Giron on 03-28-2023 CO2 [Moles/Vol] 23.5 mmol/L 21.0-31.0 [facility] Chloride [Moles/volume] in S caitlyn or PlasmaOrdered By: Marc Giron on 03-28-2023 Chloride [Moles/Vol] 106 mmol/L 98-107 [facility] Complete Blood Count Auto Di ffon 03-28-2023 Basophils (Bld) [#/Vol] 0.1 10*3/uL Normal 0.0-0.2 [facility] Comment on above: Result Comment: PERF ORMED BY: [place] [id number] PATHOLOGIST ANALYSIS MANAGER RUIZ CLIFTON M.D. Performed By: #### P P, PLT #### [address] Basophils/100 WBC (Bld) 1.4 % Normal . F [facility] Comment on above: Performed By: #### P P, PLT #### [address] Eosinophils (Bld) [#/Vol] 0.3 10*3/uL Normal 0.0-0.45 [facility] Comment on above: Performed By: #### P P, PLT #### [address] Eosinophils/100 WBC (Bld) 5.0 % Normal . [facility] Comment on above: Performed By: #### P P, PLT #### [address] Erythrocyte distribution width (RBC) [Ratio] 14.1 % Normal 11.9-15.3 [facility] Comment on above: Performed By: #### P P, PLT #### [address] Hematocrit (Bld) [Volume fraction] 36.2 % Normal 34.0-46.4 [facility] Comment on above: Performed By: #### P P, PLT #### [address] Hemoglobin (Bld) [Mass/Vol] 12.2 g/dL Normal 11.8-15.4 [facility] Comment on above: Performed By: #### P P, PLT #### [address] Lymphocytes (Bld) [#/Vol] 2.1 10*3/uL Normal 1.00-4.8 [facility] Comment on above: Performed By: #### P P, PLT #### [address] Lymphocytes/100 WBC (Bld) 30.9 % Normal . [facility] Comment on above: Performed By: #### P P, PLT #### [address] MCH (RBC) [Entitic mass] 36.4 pg High 24.7-34.3 [facility] Comment on above: Performed By: #### P P, PLT #### [address] MCV (RBC) [Entitic vol] 107.9 fL High 80-100 F [facility] Comment on above: Performed By: #### P P, PLT #### [address] Mean Corpuscular HGB Conc 33.7 g/dL Normal 32.0-35.0 [facility] Comment on above: Performed By: #### P P, PLT #### [address] Monocytes (Bld) [#/Vol] 0.5 10*3/uL Normal 0.0-0.8 [facility] Comment on above: Performed By: #### P P, PLT #### [address] Monocytes/100 WBC (Bld) 7.5 % Normal . [facility] Comment on above: Performed By: #### P P, PLT #### [address] Neutrophils (Bld) [#/Vol] 3.7 10*3/uL Normal 1.8-7.7 [facility] Comment on above: Performed By: #### P P, PLT #### [address] Neutrophils/100 WBC (Bld) 55.2 % Normal . [facility] Comment on above: Performed By: #### P P, PLT #### [address] NRBC% 0.2 /100{WBC} Normal 0-0.5 [facility] Comment on above: Performed By: #### P P, PLT #### [address] Platelet mean volume (Bld) [Entitic vol] 7.2 fL Normal 6.3-10.7 [facility] Comment on above: Performed By: #### P P, PLT #### [address] Platelets (Bld) [#/Vol] 273 10*3/uL Normal 150-450 [facility] Comment on above: Performed By: #### P P, PLT #### [address] RBC (Bld) [#/Vol] 3.35 10*6/uL Low 3.60-5.00 [facility] Comment on above: Performed By: #### P P, PLT #### [address] WBC (Bld) [#/Vol] 6.7 10*3/uL Normal 3.8-11.6 [facility] Comment on above: Performed By: #### P P, PLT #### [address] Comprehensive Metabolic Pane antione 03-28-2023 Albumin [Mass/Vol] 3.3 g/dL Low 3.5-5.7 [facility] Comment on above: Performed By: #### P P, PLT #### [address] Albumin/Globulin [Mass ratio] 1.1 {ratio} Normal [facility] Comment on above: Performed By: #### P P, PLT #### [address] ALP [Catalytic activity/Vol] 95 U/L Normal 34-104 [facility] Comment on above: Performed By: #### P P, PLT #### [facility] [address] ALT [Catalytic activity/Vol] 31 U/L Normal 7-52 [facility] Comment on above: Performed By: #### P P, PLT #### [facility] [address] Anion gap [Moles/Vol] 11.6 mmol/L Normal 6.0-15.0 [facility] Comment on above: Performed By: #### P P, PLT #### [facility] [address] [place] [address] AST [Catalytic activity/Vol] 55 U/L High 13-39 [facility] Comment on above: Performed By: #### P P, PLT #### [facility] [address] [place] [address] Bilirubin [Mass/Vol] 0.3 mg/dL Normal 0.3-1.0 [facility] Comment on above: Performed By: #### P P, PLT #### [facility] [address] [place] [address] Calcium [Mass/Vol] 9.2 mg/dL Normal 8.6-10.3 [facility] Comment on above: Performed By: #### P P, PLT #### [facility] [address] [place] [address] [place] Chloride [Moles/Vol] 106 mmol/L Normal 98-107 [facility] Comment on above: Performed By: #### P P, PLT #### [facility] [address] [place] [address] [place] CO2 [Moles/Vol] 23.5 mmol/L Normal 21.0-31.0 [facility] Comment on above: Performed By: #### P P, PLT #### [facility] [address] Creatinine [Mass/Vol] 0.43 mg/dL Low 0.60-1.20 [facility] Comment on above: Performed By: #### P P, PLT #### [facility] [address] [place] [address] [place] Creatinine Clr Calc Pharmacy 169.[address] [facility] Comment on above: Performed By: #### P P, PLT #### [facility] [address] [place] [address] [place] GFR/1.73 sq M.predicted MDRD (S/P/Bld) [Vol rate/Area] mL/min/{1.73_m2} [facility] Comment on above: Performed By: #### P P, PLT #### [facility] [address] [place] [address] [place] Globulin (S) [Mass/Vol] 3.1 g/dL Normal [facility] Comment on above: Performed By: #### P P, PLT #### [place] [address] [place] Glucose [Mass/Vol] 98 mg/dL Normal 70-100 [facility] Comment on above: Result Comment: [facility] Glucose Reference Range is dependent on time and content of last meal. Glucose of more than 200 mg/dL in a nonstressed, ambulatory subject supports the diagnosis of Diabetes Mellitus. ADA recommended reference range Performed By: #### P P, PLT #### [place] [address] [place] Potassium [Moles/Vol] 4.1 mmol/L Normal 3.5-5.1 [facility] Comment on above: Performed By: #### P P, PLT #### [facility] [address] [place] [address] [place] Protein [Mass/Vol] 6.4 g/dL Normal 6.4-8.9 [facility] Comment on above: Performed By: #### P P, PLT #### [facility] [address] [place] [address] [place] Sodium [Moles/Vol] 137 mmol/L Normal 136-145 [facility] Comment on above: Performed By: #### P P, PLT #### [facility] [address] [place] [id number] [place] Urea nitrogen [Mass/Vol] 7 mg/dL Normal 7-25 [facility] Comment on above: Performed By: #### P P, PLT #### [facility] [address] Creatinine [Mass/volume] in Serum or PlasmaOrdered By: Marc Giron on 03-28-2023 Creatinine [Mass/Vol] 0.43 mg/dL 0.60-1.20 [facility] Eosinophils Auto (Bld) [#/Vo l]Ordered By: Marc Giron on 03-28-2023 Eosinophils (Bld) [#/Vol] 0.3 10*3/uL 0.0-0.45 [facility] Eosinophils/100 WBC Auto (Bl d)Ordered By: Marc Giron on 03-28-2023 Eosinophils/100 WBC (Bld) 5.0 % . [facility] Erythrocyte distribution wid th Auto (RBC) [Ratio]Ordered By: Marc Giron on 03-28-2023 Erythrocyte distribution width (RBC) [Ratio] 14.1 % 11.9-15.3 [facility] Globulin Calc (S) [Mass/Vol] Ordered By: Marc Giron on 03-28-2023 Globulin (S) [Mass/Vol] 3.1 g/dL [facility] Glucose [Mass/volume] in Ser um or PlasmaOrdered By: Marc Giron on 03-28-2023 Glucose [Mass/Vol] 98 mg/dL 70-100 [facility] Comment on above: ADA recommended refe rence rangeRandom Glucose Reference Range is dependent on time and content of last meal. Glucose of more than 200 mg/dL in a nonstressed, ambulatory subject supports the diagnosis of Diabetes Mellitus. Hematocrit Auto (Bld) [Volum e fraction]Ordered By: Marc Giron on 03-28-2023 Hematocrit (Bld) [Volume fraction] 36.2 % 34.0-46.4 [facility] Hemoglobin [Mass/volume] in BloodOrdered By: Marc Giron on 03-28-2023 Hemoglobin (Bld) [Mass/Vol] 12.2 g/dL 11.8-15.4 [facility] Leukocytes [#/volume] correc antoine for nucleated erythrocytes in Blood by Automated counOrdered By: Marc Giron on 03-28-2023 WBC corrected for nucl RBC Auto (Bld) [#/Vol] 6.7 10*3/uL 3.8-11.6 [facility] Lymphocytes Auto (Bld) [#/Vo l]Ordered By: Marc Giron on 03-28-2023 Lymphocytes (Bld) [#/Vol] 2.1 10*3/uL 1.00-4.8 [facility] Lymphocytes/100 WBC Auto (Bl d)Ordered By: Marc Giron on 03-28-2023 Lymphocytes/100 WBC (Bld) 30.9 % . [facility] MCH Auto (RBC) [Entitic mass ]Ordered By: Marc Giron on 03-28-2023 MCH (RBC) [Entitic mass] 36.4 pg 24.7-34.3 [facility] MCHC Auto (RBC) [Mass/Vol]Or dered By: Marc Giron on 03-28-2023 MCHC (RBC) [Mass/Vol] 33.7 g/dL 32.0-35.0 [facility] MCV Auto (RBC) [Entitic vol] Ordered By: Marc Giron on 03-28-2023 MCV (RBC) [Entitic vol] 107.9 fL 80-100 [facility] Monocytes Auto (Bld) [#/Vol] Ordered By: Marc Giron on 03-28-2023 Monocytes (Bld) [#/Vol] 0.5 10*3/uL 0.0-0.8 [facility] Monocytes/100 WBC Auto (Bld) Ordered By: Marc Giron on 03-28-2023 Monocytes/100 WBC (Bld) 7.5 % . [facility] Neutrophils Auto (Bld) [#/Vo l]Ordered By: Marc Giron on 03-28-2023 Neutrophils (Bld) [#/Vol] 3.7 10*3/uL 1.8-7.7 [facility] Neutrophils/100 WBC Auto (Bl d)Ordered By: Marc Giron on 03-28-2023 Neutrophils/100 WBC (Bld) 55.2 % . [facility] No Panel InformationOrdered By: Marc Giron on 03-28-2023 Estimated GFR (CKD-EPI) > 60.0 mL/Min [facility] Creatinine Clearance (Chem 169.70 [facility] Nucleated erythrocytes [Pres ence] in Blood by Automated countOrdered By: Marc Giron on 03-28-2023 Nucleated RBC Auto Ql (Bld) 0.2 /100{WBC} 0-0.5 [facility] Platelet mean volume Auto (B ld) [Entitic vol]Ordered By: Marc Giron on 03-28-2023 Platelet mean volume (Bld) [Entitic vol] 7.2 fL 6.3-10.7 [facility] Platelets Auto (Bld) [#/Vol] Ordered By: Marc Giron on 03-28-2023 Platelets (Bld) [#/Vol] 273 10*3/uL 150-450 [facility] Potassium [Moles/volume] in Serum or PlasmaOrdered By: Marc Giron on 03-28-2023 Potassium [Moles/Vol] 4.1 mmol/L 3.5-5.1 [facility] Prealbuminon 03-28-2023 Prealbumin [Mass/Vol] 19.3 mg/dL Normal 17.0-34.0 [facility] Comment on above: Result Comment: PERF ORMED BY: [place] [id number] PATHOLOGIST ANALYSIS MANAGER RUIZ CLIFTON M.D. Performed By: #### P P, PLT #### [address] Prealbumin [Mass/volume] in Serum or PlasmaOrdered By: Marc Giron on 03-28-2023 Prealbumin [Mass/Vol] 19.3 mg/dL 17.0-34.0 [facility] Protein [Mass/volume] in Ser um or PlasmaOrdered By: Marc Giron on 03-28-2023 Protein [Mass/Vol] 6.4 g/dL 6.4-8.9 [facility] RBC Auto (Bld) [#/Vol]Ordere d By: Marc Giron on 09-07-2023 RBC (Bld) [#/Vol] 3.35 10*6/uL 3.60-5.00 [facility] Serum or plasma albumin/glob ulin mass ratioOrdered By: Marc Giron on 03-28-2023 Albumin/Globulin [Mass ratio] 1.1 {ratio} [facility] Serum or plasma anion gap de terminationOrdered By: Marc Giron on 03-28-2023 Anion gap [Moles/Vol] 11.6 mmol/L 6.0-15.0 [facility] Sodium [Moles/volume] in Ser um or PlasmaOrdered By: Marc Giron on 03-28-2023 Sodium [Moles/Vol] 137 mmol/L 136-145 [facility] Urea nitrogen [Mass/volume] in Serum or PlasmaOrdered By: Marc Giron on 03-28-2023 Urea nitrogen [Mass/Vol] 7 mg/dL 7-25 [facility] WBC Auto (Bld) [#/Vol]Ordere d By: Marc Giron on 03-28-2023 WBC (Bld) [#/Vol] 6.7 10*3/uL 3.8-11.6 [facility] Alanine aminotransferase [En zymatic activity/volume] in Serum or PlasmaOrdered By: Brianne Umanzor on 03-24-2023 ALT [Catalytic activity/Vol] 23 U/L 7-52 [facility] Albumin [Mass/volume] in Ser um or Plasma by Bromocresol green (BCG) dye binding methoOrdered By: Brianne Umanzor on 03-24-2023 Albumin BCG dye [Mass/Vol] 3.1 g/dL 3.5-5.7 [facility] Alkaline phosphatase [Enzyma tic activity/volume] in Serum or PlasmaOrdered By: Brianne Umanzor on 03-24-2023 ALP [Catalytic activity/Vol] 112 U/L 34-104 [facility] Aspartate aminotransferase [ Enzymatic activity/volume] in Serum or PlasmaOrdered By: Brianne Umanzor on 03-24-2023 AST [Catalytic activity/Vol] 48 U/L 13-39 [facility] Bilirubin.total [Mass/volume ] in Serum or PlasmaOrdered By: Marysoldah Daromar on 03-24-2023 Bilirubin [Mass/Vol] 0.5 mg/dL 0.3-1.0 [facility] Calcium [Mass/volume] in Ser um or PlasmaOrdered By: Obaydah Daromar on 03-24-2023 Calcium [Mass/Vol] 9.0 mg/dL 8.6-10.3 [facility] Carbon dioxide, total [Moles /volume] in Serum or PlasmaOrdered By: Obsharondah Daromar on 03-24-2023 CO2 [Moles/Vol] 30.8 mmol/L 21.0-31.0 [facility] Chloride [Moles/volume] in S caitlyn or PlasmaOrdered By: Obaydah Daromar on 03-24-2023 Chloride [Moles/Vol] 102 mmol/L 98-107 [facility] Comprehensive Metabolic Pane antione 03-24-2023 Albumin [Mass/Vol] 3.1 g/dL Low 3.5-5.7 [facility] Comment on above: Performed By: #### P P, PLT #### [facility] [address] Albumin/Globulin [Mass ratio] 1.0 {ratio} Normal [facility] Comment on above: Performed By: #### P P, PLT #### [facility] [address] [place] [id number] [place] ALP [Catalytic activity/Vol] 112 U/L High 34-104 [facility] Comment on above: Performed By: #### P P, PLT #### [facility] [address] [id number] [place] ALT [Catalytic activity/Vol] 23 U/L Normal 7-52 [facility] Comment on above: Performed By: #### P P, PLT #### [facility] [address] [id number] [place] Anion gap [Moles/Vol] 9.7 mmol/L Normal 6.0-15.0 [facility] Comment on above: Performed By: #### P P, PLT #### [facility] [address] [place] [address] AST [Catalytic activity/Vol] 48 U/L High 13-39 [facility] Comment on above: Performed By: #### P P, PLT #### [address] Bilirubin [Mass/Vol] 0.5 mg/dL Normal 0.3-1.0 [facility] Comment on above: Performed By: #### P P, PLT #### [address] Calcium [Mass/Vol] 9.0 mg/dL Normal 8.6-10.3 [facility] Comment on above: Performed By: #### P P, PLT #### [address] Chloride [Moles/Vol] 102 mmol/L Normal 98-107 [facility] Comment on above: Performed By: #### P P, PLT #### [address] CO2 [Moles/Vol] 30.8 mmol/L Normal 21.0-31.0 [facility] Comment on above: Performed By: #### P P, PLT #### [address] Creatinine [Mass/Vol] 0.47 mg/dL Low 0.60-1.20 [facility] Comment on above: Performed By: #### P P, PLT #### [place] [address] [place] Creatinine Clr Calc Pharmacy 155.[address] [facility] Comment on above: Performed By: #### P P, PLT #### [place] [address] [place] GFR/1.73 sq M.predicted MDRD (S/P/Bld) [Vol rate/Area] mL/min/{1.73_m2} [facility] Comment on above: Performed By: #### P P, PLT #### [address] Globulin (S) [Mass/Vol] 3.1 g/dL Normal F [facility] Comment on above: Performed By: #### P P, PLT #### [facility] [address] [place] [address] [place] Glucose [Mass/Vol] 88 mg/dL Normal 70-100 [facility] Comment on above: Result Comment: [place] Glucose Reference Range is dependent on time and content of last meal. Glucose of more than 200 mg/dL in a nonstressed, ambulatory subject supports the diagnosis of Diabetes Mellitus. ADA recommended reference range Performed By: #### P P, PLT #### [facility] [address] [place] [address] [place] Potassium [Moles/Vol] 4.5 mmol/L Normal 3.5-5.1 [facility] Comment on above: Performed By: #### P P, PLT #### [facility] [address] [place] [address] [place] Protein [Mass/Vol] 6.2 g/dL Low 6.4-8.9 [facility] Comment on above: Performed By: #### P P, PLT #### [facility] [address] [id number] [place] Sodium [Moles/Vol] 138 mmol/L Normal 136-145 [facility] Comment on above: Performed By: #### P P, PLT #### [facility] [address] [id number] [place] Urea nitrogen [Mass/Vol] 6 mg/dL Low 7-25 [facility] Comment on above: Performed By: #### P P, PLT #### [facility] [address] [id number] [place] Creatinine [Mass/volume] in Serum or PlasmaOrdered By: Obaydah Daromar on 03-24-2023 Creatinine [Mass/Vol] 0.47 mg/dL 0.60-1.20 [facility] Globulin Calc (S) [Mass/Vol] Ordered By: Obaydah Daromar on 03-24-2023 Globulin (S) [Mass/Vol] 3.1 g/dL F [facility] Glucose [Mass/volume] in Ser um or PlasmaOrdered By: Obsharondagautam Cabreraomar on 03-24-2023 Glucose [Mass/Vol] 88 mg/dL 70-100 [facility] Comment on above: ADA recommended refe rence rangeRandom Glucose Reference Range is dependent on time and content of last meal. Glucose of more than 200 mg/dL in a nonstressed, ambulatory subject supports the diagnosis of Diabetes Mellitus. Magnesiumon 03-24-2023 Magnesium [Mass/Vol] 1.9 mg/dL Normal 1.9-2.7 [facility] Comment on above: Result Comment: PERF ORMED BY: [place] [id number] PATHOLOGIST ANALYSIS MANAGER RUIZ CLIFTON M.D. Performed By: #### P P, PLT #### [address] Magnesium [Mass/volume] in S caitlyn or PlasmaOrdered By: Obluis Cabreraomar on 03-24-2023 Magnesium [Mass/Vol] 1.9 mg/dL 1.9-2.7 [facility] No Panel InformationOrdered By: Obluis Cabreraomar on 03-24-2023 Estimated GFR (CKD-EPI) > 60.0 mL/Min [facility] Creatinine Clearance (Chem 155.26 [facility] Potassium [Moles/volume] in Serum or PlasmaOrdered By: Obsharondagautam Cabreraomar on 03-24-2023 Potassium [Moles/Vol] 4.5 mmol/L 3.5-5.1 [facility] Protein [Mass/volume] in Ser um or PlasmaOrdered By: Obsharondah Daromar on 03-24-2023 Protein [Mass/Vol] 6.2 g/dL 6.4-8.9 [facility] Serum or plasma albumin/glob ulin mass ratioOrdered By: Obsharondah Rickomar on 03-24-2023 Albumin/Globulin [Mass ratio] 1.0 {ratio} [facility] Serum or plasma anion gap de terminationOrdered By: Obsharondah Rickomar on 03-24-2023 Anion gap [Moles/Vol] 9.7 mmol/L 6.0-15.0 [facility] Sodium [Moles/volume] in Ser um or PlasmaOrdered By: Obsharondagautam Daromar on 03-24-2023 Sodium [Moles/Vol] 138 mmol/L 136-145 [facility] Urea nitrogen [Mass/volume] in Serum or PlasmaOrdered By: Obaydah Daromar on 03-24-2023 Urea nitrogen [Mass/Vol] 6 mg/dL 7-25 [facility] Comprehensive Metabolic Pane antione 03-23-2023 Albumin [Mass/Vol] 2.8 g/dL Low 3.5-5.7 [facility] Comment on above: Performed By: #### C BC, CMP, MG, LDH, [id number] #### [facility] [address] [place] [address] #### LEAD,ADULT, KAPPA, SPE, ANCA PROF, SANDRA, CRYOGLOB, HBSAG, CU, HIV SCREEN, RONALD SERUM, PAT, METH, HBSAB, RA, HCBIGM #### [facility] , Albumin/Globulin [Mass ratio] 1.0 {ratio} Normal [facility] Comment on above: Performed By: #### C BC, CMP, MG, LDH, [id number] #### [facility] [address] [place] [address] [place] #### LEAD,ADULT, KAPPA, SPE, ANCA PROF, SANDRA, CRYOGLOB, HBSAG, CU, HIV SCREEN, RONALD SERUM, PAT, METH, HBSAB, RA, HCBIGM #### [facility] , ALP [Catalytic activity/Vol] 101 U/L Normal 34-104 [facility] Comment on above: Performed By: #### C BC, CMP, MG, LDH, [id number] #### [facility] [address] [place] [address] [place] #### LEAD,ADULT, KAPPA, SPE, ANCA PROF, SANDRA, CRYOGLOB, HBSAG, CU, HIV SCREEN, RONALD SERUM, PAT, METH, HBSAB, RA, HCBIGM #### [facility] , ALT [Catalytic activity/Vol] 26 U/L Normal 7-52 [facility] Comment on above: Performed By: #### C BC, CMP, MG, LDH, [id number] #### [address] #### LEAD,ADULT, KAPPA, SPE, ANCA PROF, SANDRA, CRYOGLOB, HBSAG, CU, HIV SCREEN, RONALD SERUM, PAT, METH, HBSAB, RA, HCBIGM #### [facility] , Anion gap [Moles/Vol] 8.8 mmol/L Normal 6.0-15.0 [facility] Comment on above: Performed By: #### C BC, CMP, MG, LDH, [id number] #### [address] #### LEAD,ADULT, KAPPA, SPE, ANCA PROF, SANDRA, CRYOGLOB, HBSAG, CU, HIV SCREEN, RONALD SERUM, PAT, METH, HBSAB, RA, HCBIGM #### [facility] , AST [Catalytic activity/Vol] 54 U/L High 13-39 [facility] Comment on above: Performed By: #### C BC, CMP, MG, LDH, [id number] #### [place] [address] [place] #### LEAD,ADULT, KAPPA, SPE, ANCA PROF, SANDRA, CRYOGLOB, HBSAG, CU, HIV SCREEN, RONALD SERUM, PAT, METH, HBSAB, RA, HCBIGM #### [facility] , Bilirubin [Mass/Vol] 0.7 mg/dL Normal 0.3-1.0 [facility] Comment on above: Performed By: #### C BC, CMP, MG, LDH, [id number] #### [place] [address] [place] #### LEAD,ADULT, KAPPA, SPE, ANCA PROF, SANDRA, CRYOGLOB, HBSAG, CU, HIV SCREEN, RONALD SERUM, PAT, METH, HBSAB, RA, HCBIGM #### [facility] , Calcium [Mass/Vol] 8.3 mg/dL Low 8.6-10.3 [facility] Comment on above: Performed By: #### C BC, CMP, MG, LDH, [id number] #### [place] [address] [place] #### LEAD,ADULT, KAPPA, SPE, ANCA PROF, SANDRA, CRYOGLOB, HBSAG, CU, HIV SCREEN, RONALD SERUM, PAT, METH, HBSAB, RA, HCBIGM #### [facility] , Chloride [Moles/Vol] 106 mmol/L Normal 98-107 [facility] Comment on above: Performed By: #### C BC, CMP, MG, LDH, [id number] #### [place] [address] [place] #### LEAD,ADULT, KAPPA, SPE, ANCA PROF, SANDRA, CRYOGLOB, HBSAG, CU, HIV SCREEN, RONALD SERUM, PAT, METH, HBSAB, RA, HCBIGM #### [facility] , CO2 [Moles/Vol] 26.8 mmol/L Normal 21.0-31.0 [facility] Comment on above: Performed By: #### C BC, CMP, MG, LDH, [id number] #### [place] [address] [place] #### LEAD,ADULT, KAPPA, SPE, ANCA PROF, SANDRA, CRYOGLOB, HBSAG, CU, HIV SCREEN, RONALD SERUM, PAT, METH, HBSAB, RA, HCBIGM #### [facility] , Creatinine [Mass/Vol] 0.39 mg/dL Low 0.60-1.20 [facility] Comment on above: Performed By: #### C BC, CMP, MG, LDH, [id number] #### [place] [address] [place] #### LEAD,ADULT, KAPPA, SPE, ANCA PROF, SANDRA, CRYOGLOB, HBSAG, CU, HIV SCREEN, RONALD SERUM, PAT, METH, HBSAB, RA, HCBIGM #### [facility] , Creatinine Clr Calc Pharmacy 187.[address] [facility] Comment on above: Result Comment: PERF ORMED BY: [place] [id number] PATHOLOGIST ANALYSIS MANAGER RUIZ CLIFTON M.D. Performed By: #### C BC, CMP, MG, LDH, [id number] #### [address] #### LEAD,ADULT, KAPPA, SPE, ANCA PROF, SANDRA, CRYOGLOB, HBSAG, CU, HIV SCREEN, RONALD SERUM, PAT, METH, HBSAB, RA, HCBIGM #### [facility] , GFR/1.73 sq M.predicted MDRD (S/P/Bld) [Vol rate/Area] mL/min/{1.73_m2} [facility] Comment on above: Performed By: #### C BC, CMP, MG, LDH, [id number] #### [place] [address] [place] #### LEAD,ADULT, KAPPA, SPE, ANCA PROF, SANDRA, CRYOGLOB, HBSAG, CU, HIV SCREEN, RONALD SERUM, PAT, METH, HBSAB, RA, HCBIGM #### [facility] , Globulin (S) [Mass/Vol] 2.7 g/dL Normal [facility] Comment on above: Performed By: #### C BC, CMP, MG, LDH, [id number] #### [facility] [address] [place] [address] [place] #### LEAD,ADULT, KAPPA, SPE, ANCA PROF, SANDRA, CRYOGLOB, HBSAG, CU, HIV SCREEN, RONALD SERUM, PAT, METH, HBSAB, RA, HCBIGM #### [facility] , Glucose [Mass/Vol] 84 mg/dL Normal 70-100 [facility] Comment on above: Result Comment: [facility] Glucose Reference Range is dependent on time and content of last meal. Glucose of more than 200 mg/dL in a nonstressed, ambulatory subject supports the diagnosis of Diabetes Mellitus. ADA recommended reference range Performed By: #### C BC, CMP, MG, LDH, [id number] #### [address] #### LEAD,ADULT, KAPPA, SPE, ANCA PROF, SANDRA, CRYOGLOB, HBSAG, CU, HIV SCREEN, RONALD SERUM, PAT, METH, HBSAB, RA, HCBIGM #### [facility] , Potassium [Moles/Vol] 4.6 mmol/L Normal 3.5-5.1 [facility] Comment on above: Performed By: #### C BC, CMP, MG, LDH, [id number] #### [address] #### LEAD,ADULT, KAPPA, SPE, ANCA PROF, SANDRA, CRYOGLOB, HBSAG, CU, HIV SCREEN, RONALD SERUM, PAT, METH, HBSAB, RA, HCBIGM #### [facility] , Protein [Mass/Vol] 5.5 g/dL Low 6.4-8.9 [facility] Comment on above: Performed By: #### C BC, CMP, MG, LDH, [id number] #### [place] [address] [place] #### LEAD,ADULT, KAPPA, SPE, ANCA PROF, SANDRA, CRYOGLOB, HBSAG, CU, HIV SCREEN, RONALD SERUM, PAT, METH, HBSAB, RA, HCBIGM #### [facility] , Sodium [Moles/Vol] 137 mmol/L Normal 136-145 [facility] Comment on above: Performed By: #### C BC, CMP, MG, LDH, [id number] #### [place] [address] [place] #### LEAD,ADULT, KAPPA, SPE, ANCA PROF, SANDRA, CRYOGLOB, HBSAG, CU, HIV SCREEN, RONALD SERUM, PAT, METH, HBSAB, RA, HCBIGM #### [facility] , Urea nitrogen [Mass/Vol] 4 mg/dL Low 7-25 [facility] Comment on above: Performed By: #### C BC, CMP, MG, LDH, [id number] #### [address] #### LEAD,ADULT, KAPPA, SPE, ANCA PROF, SANDRA, CRYOGLOB, HBSAG, CU, HIV SCREEN, RONALD SERUM, PAT, METH, HBSAB, RA, HCBIGM #### [facility] , Erythrocyte distribution wid th Auto (RBC) [Ratio]Ordered By: Brianne Cabreraomar on 03-23-2023 Erythrocyte distribution width (RBC) [Ratio] 14.6 % 11.9-15.3 [facility] Hematocrit Auto (Bld) [Volum e fraction]Ordered By: Obsharondah Rickomar on 03-23-2023 Hematocrit (Bld) [Volume fraction] 31.7 % 34.0-46.4 [facility] Hemoglobin [Mass/volume] in BloodOrdered By: Brianne Cabreraomavasyl on 03-23-2023 Hemoglobin (Bld) [Mass/Vol] 10.9 g/dL 11.8-15.4 [facility] Hemogram CBC Without Diffon 03-23-2023 Erythrocyte distribution width (RBC) [Ratio] 14.6 % Normal 11.9-15.3 [facility] Comment on above: Performed By: #### C BC, CMP, MG, LDH, [id number] #### [place] [address] [place] #### LEAD,ADULT, KAPPA, SPE, ANCA PROF, SANDRA, CRYOGLOB, HBSAG, CU, HIV SCREEN, RONALD SERUM, PAT, METH, HBSAB, RA, HCBIGM #### [facility] , Hematocrit (Bld) [Volume fraction] 31.7 % Low 34.0-46.4 [facility] Comment on above: Performed By: #### C BC, CMP, MG, LDH, [id number] #### [address] #### LEAD,ADULT, KAPPA, SPE, ANCA PROF, SANDRA, CRYOGLOB, HBSAG, CU, HIV SCREEN, RONALD SERUM, PAT, METH, HBSAB, RA, HCBIGM #### [facility] , Hemoglobin (Bld) [Mass/Vol] 10.9 g/dL Low 11.8-15.4 [facility] Comment on above: Performed By: #### C BC, CMP, MG, LDH, [id number] #### [address] #### LEAD,ADULT, KAPPA, SPE, ANCA PROF, SANDRA, CRYOGLOB, HBSAG, CU, HIV SCREEN, RONALD SERUM, PAT, METH, HBSAB, RA, HCBIGM #### [facility] , MCH (RBC) [Entitic mass] 37.0 pg High 24.7-34.3 [facility] Comment on above: Performed By: #### C BC, CMP, MG, LDH, [id number] #### [place] [address] [place] #### LEAD,ADULT, KAPPA, SPE, ANCA PROF, SANDRA, CRYOGLOB, HBSAG, CU, HIV SCREEN, RONALD SERUM, PAT, METH, HBSAB, RA, HCBIGM #### [facility] , MCV (RBC) [Entitic vol] 107.1 fL High 80-100 [facility] Comment on above: Performed By: #### C BC, CMP, MG, LDH, [id number] #### [place] [address] [place] #### LEAD,ADULT, KAPPA, SPE, ANCA PROF, SANDRA, CRYOGLOB, HBSAG, CU, HIV SCREEN, RONALD SERUM, PAT, METH, HBSAB, RA, HCBIGM #### [facility] , Mean Corpuscular HGB Conc 34.5 g/dL Normal 32.0-35.0 [facility] Comment on above: Performed By: #### C BC, CMP, MG, LDH, [id number] #### [facility] [address] [place] [address] #### LEAD,ADULT, KAPPA, SPE, ANCA PROF, SANDRA, CRYOGLOB, HBSAG, CU, HIV SCREEN, RONALD SERUM, PAT, METH, HBSAB, RA, HCBIGM #### [facility] , Platelet mean volume (Bld) [Entitic vol] 7.2 fL Normal 6.3-10.7 [facility] Comment on above: Result Comment: PERF ORMED BY: [place] [id number] PATHOLOGIST ANALYSIS MANAGER RUIZ CLIFTON M.D. Performed By: #### C BC, CMP, MG, LDH, [id number] #### [address] #### LEAD,ADULT, KAPPA, SPE, ANCA PROF, SANDRA, CRYOGLOB, HBSAG, CU, HIV SCREEN, RONALD SERUM, PAT, METH, HBSAB, RA, HCBIGM #### [facility] , Platelets (Bld) [#/Vol] 237 10*3/uL Normal 150-450 [facility] Comment on above: Performed By: #### C BC, CMP, MG, LDH, [id number] #### [facility] [address] [place] [address] #### LEAD,ADULT, KAPPA, SPE, ANCA PROF, SANDRA, CRYOGLOB, HBSAG, CU, HIV SCREEN, RONALD SERUM, PAT, METH, HBSAB, RA, HCBIGM #### [facility] , RBC (Bld) [#/Vol] 2.96 10*6/uL Low 3.60-5.00 [facility] Comment on above: Performed By: #### C BC, CMP, MG, LDH, [id number] #### [place] [address] [place] #### LEAD,ADULT, KAPPA, SPE, ANCA PROF, SANDRA, CRYOGLOB, HBSAG, CU, HIV SCREEN, RONALD SERUM, PAT, METH, HBSAB, RA, HCBIGM #### [facility] , WBC (Bld) [#/Vol] 6.3 10*3/uL Normal 3.8-11.6 [facility] Comment on above: Performed By: #### C BC, CMP, MG, LDH, [id number] #### [facility] [address] [place] [address] #### LEAD,ADULT, KAPPA, SPE, ANCA PROF, SANDRA, CRYOGLOB, HBSAG, CU, HIV SCREEN, RONALD SERUM, PAT, METH, HBSAB, RA, HCBIGM #### [facility] , Leukocytes [#/volume] correc antoine for nucleated erythrocytes in Blood by Automated counOrdered By: Brianne Cabreraomar on 03-23-2023 WBC corrected for nucl RBC Auto (Bld) [#/Vol] 6.3 10*3/uL 3.8-11.6 [facility] MCH Auto (RBC) [Entitic mass ]Ordered By: Brianne Cabreraomar on 03-23-2023 MCH (RBC) [Entitic mass] 37.0 pg 24.7-34.3 [facility] MCHC Auto (RBC) [Mass/Vol]Or dered By: Obsharondagautam Cabreraomar on 03-23-2023 MCHC (RBC) [Mass/Vol] 34.5 g/dL 32.0-35.0 [facility] MCV Auto (RBC) [Entitic vol] Ordered By: Obluis Cabreraomar on 03-23-2023 MCV (RBC) [Entitic vol] 107.1 fL 80-100 [facility] Platelet mean volume Auto (B ld) [Entitic vol]Ordered By: Obsharondah Rickomar on 03-23-2023 Platelet mean volume (Bld) [Entitic vol] 7.2 fL 6.3-10.7 [facility] Platelets Auto (Bld) [#/Vol] Ordered By: Obsharondah Noé on 03-23-2023 Platelets (Bld) [#/Vol] 237 10*3/uL 150-450 [facility] RBC Auto (Bld) [#/Vol]Ordere d By: Brianne Umanzor on 03-23-2023 RBC (Bld) [#/Vol] 2.96 10*6/uL 3.60-5.00 [facility] US abdomen limitedon 023 US abdomen limited [facility] [place] [address] [place] [address] Ultrasound Report Signed Patient: Rica Stout MR#: [id number] 39 : 1995 Acct:[id number] Age/Sex: 27 / F ADM Date: 03/22/23 Loc: Room: 0L1409-8 Type: ADM IN Attending Dr: Brianne Umanzor MD Ordering Provider: Chele Gamino DO Date of Service: 03/23/23 US/US abdomen limited: concern for cirrhosis Copies to: DO Brianne Stevenson MD EXAMINATION TYPE: US abdomen limited DATE OF EXAM ORDERED: 03/22/2023 3:44 PM HISTORY: Possible hepatic cirrhosis COMPARISON: NONE TECHNIQUE: Realtime imaging limited to the right upper quadrant was performed. FINDINGS: The gallbladder appears within normal limits without evidence of cholelithiasis. The gallbladder wall measures 2 mm in thickness. The common bile but measures 3 mm in diameter. No intrahepatic or extrahepatic biliary dilatation is seen. The liver appears prominent measuring nearly 17 cm in greatest transverse dimension. The liver is heterogeneous in echotexture with relatively poor penetration suspicious for hepatic steatosis versus acute hepatitis. Hepatopedal flow is noted in the main portal vein Partial visualization of the right kidney reveals no gross hydronephrosis. Partial visualization of the pancreas reveals no abnormality. ? US/US abdomen limited IMPRESSION: The liver appears prominent measuring nearly 17 cm in greatest transverse dimension. The liver is heterogeneous in echotexture with relatively poor penetration suspicious for hepatic steatosis versus acute hepatitis. No sonographic evidence of acute cholecystitis. There is hepatopedal flow in the main portal vein. Impression dictated by: Lowell Blake M.D.03/23/2023 9:35 AM Dictation Location: [place] [address] Tech: Nia Adammarcella Transcribed By: RAJESH 03/23/23934 Dictated By: Lowell Blake II, MD 03/23/23930 Signed By: 03/23/[address] [facility] A1C with Estimated Average Richard vital 03-22-2023 Glucose [Mass/Vol] 94 mg/dL Normal [facility] Comment on above: Result Comment: PERF ORMED BY: [place] [id number] PATHOLOGIST ANALYSIS MANAGER RUIZ CLIFTON M.D. Performed By: #### C BC, CMP, MG, LDH, [id number] #### [address] #### LEAD,ADULT, KAPPA, SPE, ANCA PROF, SANDRA, CRYOGLOB, HBSAG, CU, HIV SCREEN, RONALD SERUM, PAT, METH, HBSAB, RA, HCBIGM #### [facility] , HbA1c (Bld) [Mass fraction] 4.9 % Normal 4.3-5.6 [facility] Comment on above: Result Comment: Incr eased risk for diabetes: 5.7 - 6.4 diabetes: >6.4 glycemic control for adults with diabetes: <7.0 Performed By: #### C BC, CMP, MG, LDH, [id number] #### [facility] [address] [place] [address] [place] #### LEAD,ADULT, KAPPA, SPE, ANCA PROF, SANDRA, CRYOGLOB, HBSAG, CU, HIV SCREEN, RONALD SERUM, PAT, METH, HBSAB, RA, HCBIGM #### [facility] , PAT with Reflexon 03-22-2023 PAT with Reflex Negative Normal Negative [facility] Comment on above: Result Comment: Perf ormed at: - [facility] [address] [id number] Protective Service Specialist: Breezy Jones PhD, Phone: [phone] Performed By: #### C BC, CMP, MG, LDH, [id number] #### [facility] [address] [place] [address] [place] #### LEAD,ADULT, KAPPA, SPE, ANCA PROF, SANDRA, CRYOGLOB, HBSAG, CU, HIV SCREEN, RONALD SERUM, PAT, METH, HBSAB, RA, HCBIGM #### [facility] , Aerobic Cultureon 03-22-2023 Aerobic Culture Comment Tube 2 No Growth 2 Days Comment Tube 2 No Anaerobes Isolated 3 Days Comment Tube 2 Gram Stain Result No Bacteria Seen No White Blood Cells Seen PERFORMED BY: [place] [id number] PATHOLOGIST ANALYSIS MANAGER RUIZ CLIFTON M.D. [facility] Comment on above: Performed By: #### C BC, CMP, MG, LDH, [id number] #### [facility] [address] [place] [address] #### LEAD,ADULT, KAPPA, SPE, ANCA PROF, SANDRA, CRYOGLOB, HBSAG, CU, HIV SCREEN, RONALD SERUM, PAT, METH, HBSAB, RA, HCBIGM #### [facility] , Aerobic cultureOrdered By: Olivia Peterson on 03-22-2023 Bacteria identified Aer cx Nom (Unsp spec) No Growth [address] [facility] Albumin [Mass/volume] in Ser um or PlasmaOrdered By: Chele Gamino on 03-22-2023 Albumin [Mass/Vol] 3.1 g/dL 2.9-4.4 [facility] Alpha tocopherol [Mass/volum e] in Serum or PlasmaOrdered By: Chele Gamino on 03-22-2023 Alpha tocopherol [Mass/Vol] 10.9 mg/L 5.9-19.4 [facility] Comment on above: This test was develo ped and its performance characteristicsdetermined by [facility]. It has not been cleared orapproved by the Food and Drug Administration. Ammoniaon 03-22-2023 Ammonia (P) [Moles/Vol] 57 umol/L High 11-35 [facility] Comment on above: Result Comment: PERF ORMED BY: [place] [id number] PATHOLOGIST ANALYSIS MANAGER RUIZ CLIFTON M.D. Performed By: #### P P, PLT #### [address] Ammonia [Moles/volume] in Pl asmaOrdered By: Chele Gamino on 03-22-2023 Ammonia (P) [Moles/Vol] 57 umol/L 11-35 [facility] Amphetamine Screen Ql (U)Ord ered By: Chele Gamino on 03-22-2023 Amphetamines Ql (U) Negative Negative [facility] Anaerobic cultureOrdered By: Bernard Peterson on 03-22-2023 Bacteria identified Anaer cx Nom (Unsp spec) No Anaerobes Isolated [address] [facility] Bacterial blood cultureOrder ed By: Bernard Peterson on 03-22-2023 Bacteria identified Cx Nom (Bld) NO GROWTH [address] [facility] Barbiturates [Presence] in U rine by Screen methodOrdered By: Chele Gamino on 03-22-2023 Barbiturates Screen Ql (U) Negative Negative [facility] Basic Metabolic Panelon 09-0 Anion gap [Moles/Vol] 13.0 mmol/L Normal 6.0-15.0 [facility] Comment on above: Performed By: #### C BC, CMP, MG, LDH, [id number] #### [address] #### LEAD,ADULT, KAPPA, SPE, ANCA PROF, SANDRA, CRYOGLOB, HBSAG, CU, HIV SCREEN, RONALD SERUM, PAT, METH, HBSAB, RA, HCBIGM #### [facility] , Calcium [Mass/Vol] 7.3 mg/dL Low 8.6-10.3 [facility] Comment on above: Performed By: #### C BC, CMP, MG, LDH, [id number] #### [address] #### LEAD,ADULT, KAPPA, SPE, ANCA PROF, SANDRA, CRYOGLOB, HBSAG, CU, HIV SCREEN, RONALD SERUM, PAT, METH, HBSAB, RA, HCBIGM #### [facility] , Chloride [Moles/Vol] 112 mmol/L High 98-107 [facility] Comment on above: Performed By: #### C BC, CMP, MG, LDH, [id number] #### [address] #### LEAD,ADULT, KAPPA, SPE, ANCA PROF, SANDRA, CRYOGLOB, HBSAG, CU, HIV SCREEN, ROANLD SERUM, PAT, METH, HBSAB, RA, HCBIGM #### [facility] , CO2 [Moles/Vol] 18.9 mmol/L Low 21.0-31.0 [facility] Comment on above: Performed By: #### C BC, CMP, MG, LDH, [id number] #### [place] [address] [place] #### LEAD,ADULT, KAPPA, SPE, ANCA PROF, SANDRA, CRYOGLOB, HBSAG, CU, HIV SCREEN, RONALD SERUM, PAT, METH, HBSAB, RA, HCBIGM #### [facility] , Creatinine [Mass/Vol] 0.42 mg/dL Low 0.60-1.20 [facility] Comment on above: Performed By: #### C BC, CMP, MG, LDH, [id number] #### [place] [address] [place] #### LEAD,ADULT, KAPPA, SPE, ANCA PROF, SANDRA, CRYOGLOB, HBSAG, CU, HIV SCREEN, RONALD SERUM, PAT, METH, HBSAB, RA, HCBIGM #### [facility] , [facility]inine [facility] 173.[address] [facility] Comment on above: Performed By: #### C BC, CMP, MG, LDH, [id number] #### [place] [address] [place] #### LEAD,ADULT, KAPPA, SPE, ANCA PROF, SANDRA, CRYOGLOB, HBSAG, CU, HIV SCREEN, RONALD SERUM, PAT, METH, HBSAB, RA, HCBIGM #### [facility] , GFR/1.73 sq M.predicted MDRD (S/P/Bld) [Vol rate/Area] mL/min/{1.73_m2} Normal [facility] Comment on above: Performed By: #### C BC, CMP, MG, LDH, [id number] #### [place] [address] [place] #### LEAD,ADULT, KAPPA, SPE, ANCA PROF, SANDRA, CRYOGLOB, HBSAG, CU, HIV SCREEN, RONALD SERUM, PAT, METH, HBSAB, RA, HCBIGM #### [facility] , Glucose [Mass/Vol] 101 mg/dL High 70-100 [facility] Comment on above: Result Comment: [facility] Glucose Reference Range is dependent on time and content of last meal. Glucose of more than 200 mg/dL in a nonstressed, ambulatory subject supports the diagnosis of Diabetes Mellitus. ADA recommended reference range Performed By: #### C BC, CMP, MG, LDH, [id number] #### [place] [address] [place] #### LEAD,ADULT, KAPPA, SPE, ANCA PROF, SANDRA, CRYOGLOB, HBSAG, CU, HIV SCREEN, RONALD SERUM, PAT, METH, HBSAB, RA, HCBIGM #### [facility] , Potassium [Moles/Vol] 3.9 mmol/L Normal 3.5-5.1 [facility] Comment on above: Performed By: #### C BC, CMP, MG, LDH, [id number] #### [place] [address] [place] #### LEAD,ADULT, KAPPA, SPE, ANCA PROF, SANDRA, CRYOGLOB, HBSAG, CU, HIV SCREEN, RONALD SERUM, PAT, METH, HBSAB, RA, HCBIGM #### [facility] , Sodium [Moles/Vol] 140 mmol/L Normal 136-145 [facility] Comment on above: Performed By: #### C BC, CMP, MG, LDH, [id number] #### [facility] [address] [place] [address] [place] #### LEAD,ADULT, KAPPA, SPE, ANCA PROF, SANDRA, CRYOGLOB, HBSAG, CU, HIV SCREEN, RONALD SERUM, PAT, METH, HBSAB, RA, HCBIGM #### [facility] , Urea nitrogen [Mass/Vol] 3 mg/dL Low 7-25 [facility] Comment on above: Performed By: #### C BC, CMP, MG, LDH, [id number] #### [facility] [address] [place] [address] [place] #### LEAD,ADULT, KAPPA, SPE, ANCA PROF, SANDRA, CRYOGLOB, HBSAG, CU, HIV SCREEN, RONALD SERUM, PAT, METH, HBSAB, RA, HCBIGM #### [facility] , Benzodiazepines Screen Ql (U )Ordered By: Chele Gamino on 03-22-2023 Benzodiazepines Ql (U) Negative Negative [facility] Benzoylecgonine [Presence] i n Urine by Screen methodOrdered By: Chele Gamino on 03-22-2023 Benzoylecgonine Screen Ql (U) Negative Negative [facility] Bilirubin.direct [Mass/volum e] in Serum or PlasmaOrdered By: Yoana Rico on 03-22-2023 Bilirubin.direct [Mass/Vol] 0.10 mg/dL 0.03-0.18 [facility] Blood Cultureon 03-22-2023 Bacteria identified Cx Nom (Bld) NO GROWTH 5 DAYS PERFORMED BY: [place] [id number] PATHOLOGIST ANALYSIS MANAGER RUIZ CLIFTON M.D. Normal [facility] Comment on above: Performed By: #### C BC, CMP, MG, LDH, [id number] #### [place] [address] [place] #### LEAD,ADULT, KAPPA, SPE, ANCA PROF, SANDRA, CRYOGLOB, HBSAG, CU, HIV SCREEN, RONALD SERUM, PAT, METH, HBSAB, RA, HCBIGM #### [facility] , CSF PCR Panelon 03-22-2023 CSF PCR Panel Comment Tube 2 Cytomegalovirus Not detected Cryptococcus neoformans or gattii 9002 Not detected Escherichia coli K1 Not detected Enterovirus Not detected Haemophilus influenzae (reported as H flu) Not detected Human herpesvirus 6 Not detected Herpes simplex virus 1 Not detected Herpes simplex virus 2 DNA [Presence] in Cerebral spinal fluid by OKSANA with non-probe detection Not detected Listeria monocytogenes (reported as listeriosis) Not detected Neisseria meningitidis - reported as meningococcal disease Not detected Human parechovirus Not detected Streptococcus pneumoniae - reported at ISP Not detected Group B Strep (Streptococcus agalactiae) Not detected Varicella zoster virus Not detected PERFORMED BY: [address] [place] [address] PATHOLOGIST ANALYSIS MANAGER RUIZ CLIFTON M.D. Normal [facility] Comment on above: Performed By: #### C BC, CMP, MG, LDH, [id number] #### [address] #### LEAD,ADULT, KAPPA, SPE, ANCA PROF, SANDRA, CRYOGLOB, HBSAG, CU, HIV SCREEN, RONALD SERUM, PAT, METH, HBSAB, RA, HCBIGM #### [facility] , CSF and Ser Oligoclonal Band son 03-22-2023 Oligoclonal Bands Interpret Normal . [facility] Comment on above: Order Comment: Comme nt Tube 4 Result Comment: Zero (0) oligoclonal bands were observed in the CSF. However two (2) paired bands were observed in both the CSF and serum. Paired bands suggest an immune response to an inflammatory process outside the INSPECTOR OPEN DIE and are unlikely to represent a INSPECTOR OPEN DIE demyelinating disease. Interpretation: Criteria for Positivity: Four (4) or more oligoclonal bands observed only in the CSF have been shown to be most consistent with MS using our method. [Claudia , Zacarias EL, Nicholas BG, and Bolivar JA: Cerebrospinal Fluid Oligoclonal Bands in the Diagnosis of Multiple Sclerosis. Am J Clin Pathol 120(5):672-675, 2003]. Oligoclonal bands that are present only in the CSF have been associated with a variety of inflammatory brain diseases such as multiple sclerosis (MS), subacute encephalitis, neurosyphilis, etc. Increased IgG in the CSF is not specific for MS, but is an indication of chronic neural inflammation. Clinical correlation indicated. Approximately 2-3% of clinically confirmed MS patients show little or no evidence of oligoclonal bands in the CSF; however oligoclonal bands may develop as the disease progresses. Oligoclonal Banding testing performed using Isoelectric Focusing (IEF) and immunoblotting methodology. Performed at: [facility] [id number] Protective Service Specialist: Breezy Jones PhD, Phone: [phone] PERFORMED BY: [place] [id number] PATHOLOGIST ANALYSIS MANAGER RUIZ CLIFTON M.D. Performed By: #### C BC, CMP, MG, LDH, [id number] #### [address] #### LEAD,ADULT, KAPPA, SPE, ANCA PROF, SANDRA, CRYOGLOB, HBSAG, CU, HIV SCREEN, RONALD SERUM, PAT, METH, HBSAB, RA, HCBIGM #### [facility] , CT head/brain wo conon 03-22 CT head/brain wo con [facility] [address] [place] [address] CT Scan Report Signed Patient: Rica Stout MR#: [id number] : 1995 Acct:[id number] Age/Sex: 27 / F ADM Date: 03/22/23 Loc: Room: 5I9326-6 Type: ADM IN Attending Dr: Parveen Keller MD Copies to: DO Parveen Montano MD Ordering Provider: Bernard Peterson DO Date of Service: 03/21/23 CT/CT head/brain wo con: arm and leg weakness, numbness Unenhanced head CT TECHNIQUE: Contiguous axial imaging of the head. The CT exam was performed using one or more the following dose reduction techniques: Automated exposure control, adjustment of the MA and/or Kv according to patient size, or use of the iterative reconstruction technique. COMPARISON: None HISTORY: Bilateral lower leg weakness. VENTRICLES: Within normal limits ATROPHY: None BRAIN PARENCHYMA: Adequate garcia-white matter differentiation identified. HEMORRHAGE: None HERNIATION: No mass effect or herniation INFARCTION: No recent vascular distribution infarction is seen. EXTRA-AXIAL FLUID COLLECTIONS None MIDBRAIN: Unremarkable CRISTINA: Unremarkable MEDULLA: Unremarkable SINUSES: Unremarkable ORBITS: Grossly unremarkable MASTOIDS: Unremarkable BONY STRUCTURES Intact ADDITIONAL FINDINGS: CT/CT head/brain wo con IMPRESSION: Unremarkable exam Impression dictated by: Dave Clark M.D.03/22/2023 8:08 AM Dictation Location: [place] [address] Transcribed By: [facility] 03/22/23807 Dictated By: Dave Clark DO 03/22/23807 Signed By: 03/22/[address] [facility] Cannabinoids [Presence] in U rine by Screen methodOrdered By: Chele Gamino on 03-22-2023 Cannabinoids Screen Ql (U) Negative Negative [facility] Comment on above: These are unconfirme d results and should not be used for legal purposes. Drug Cut-Off Concentration: AMPH 1000 ng/mL ALEXANDRO 200 ng/mL ATILIO 200 ng/mL COCM 300 ng/mL OP 300 ng/mL PCP 25 ng/mL THC 20 ng/mL Cell Count Differential,CSFo n 03-22-2023 Appearance, CSF Clear Normal Clear [facility] Comment on above: Order Comment: Comme nt Tube 1 Performed By: #### C BC, CMP, MG, LDH, [id number] #### [facility] [address] [place] [address] #### LEAD,ADULT, KAPPA, SPE, ANCA PROF, SANDRA, CRYOGLOB, HBSAG, CU, HIV SCREEN, RONALD SERUM, PAT, METH, HBSAB, RA, HCBIGM #### [facility] , Order Comment: Comme nt Tube 3 Color, CSF Colorless Normal Colorless [facility] Comment on above: Order Comment: Comme nt Tube 1 Performed By: #### C BC, CMP, MG, LDH, [id number] #### [facility] [address] [place] [address] #### LEAD,ADULT, KAPPA, SPE, ANCA PROF, SANDRA, CRYOGLOB, HBSAG, CU, HIV SCREEN, RONALD SERUM, PAT, METH, HBSAB, RA, HCBIGM #### [facility] , Order Comment: Comme nt Tube 3 Comment, CSF Normal [facility] Comment on above: Order Comment: Comme nt Tube 1 Result Comment: NO N UCLEATED CELLS SEEN. DIFFERENTIAL NOT PREFORMED Performed By: #### C BC, CMP, MG, LDH, [id number] #### [address] #### LEAD,ADULT, KAPPA, SPE, ANCA PROF, SANDRA, CRYOGLOB, HBSAG, CU, HIV SCREEN, RONALD SERUM, PAT, METH, HBSAB, RA, HCBIGM #### [facility] , Order Comment: Comme nt Tube 3 Result Comment: NO N UCLEATED CELL SEEN. DIFFERENTIAL NOT PREFORMED CSF Supernatant Color Colorless Normal Colorless [facility] Comment on above: Order Comment: Comme nt Tube 1 Performed By: #### C BC, CMP, MG, LDH, [id number] #### [address] #### LEAD,ADULT, KAPPA, SPE, ANCA PROF, SANDRA, CRYOGLOB, HBSAG, CU, HIV SCREEN, RONALD SERUM, PAT, METH, HBSAB, RA, HCBIGM #### [facility] , Order Comment: Comme nt Tube 3 CSF Volume, Total 3.[address] [facility] Comment on above: Order Comment: Comme nt Tube 1 Performed By: #### C BC, CMP, MG, LDH, [id number] #### [facility] [address] [place] [address] #### LEAD,ADULT, KAPPA, SPE, ANCA PROF, SANDRA, CRYOGLOB, HBSAG, CU, HIV SCREEN, RONALD SERUM, PAT, METH, HBSAB, RA, HCBIGM #### [facility] , Order Comment: Comme nt Tube 3 RBC, CSF 11 /uL Normal [facility] Comment on above: Order Comment: Comme nt Tube 1 Result Comment: The reference interval and other method performance specifications have not been established for this body fluid. The test result must be integrated into the clinical context for interpretation. Performed By: #### C BC, CMP, MG, LDH, [id number] #### [address] #### LEAD,ADULT, KAPPA, SPE, ANCA PROF, SANDRA, CRYOGLOB, HBSAG, CU, HIV SCREEN, RONALD SERUM, PAT, METH, HBSAB, RA, HCBIGM #### [facility] , TNC, CSF 0 /uL Normal 0-5 [facility] Comment on above: Order Comment: Comme nt Tube 1 Performed By: #### C BC, CMP, MG, LDH, [id number] #### [address] #### LEAD,ADULT, KAPPA, SPE, ANCA PROF, SANDRA, CRYOGLOB, HBSAG, CU, HIV SCREEN, RONALD SERUM, PAT, METH, HBSAB, RA, HCBIGM #### [facility] , Order Comment: Comme nt Tube 3 Tube Number Tested, CSF Tube Number: [address] [facility] Comment on above: Order Comment: Comme nt Tube 1 Result Comment: PERF ORMED BY: [address] [place] [address] PATHOLOGIST ANALYSIS MANAGER RUIZ CLIFTON M.D. Performed By: #### C BC, CMP, MG, LDH, [id number] #### [address] #### LEAD,ADULT, KAPPA, SPE, ANCA PROF, SANDRA, CRYOGLOB, HBSAG, CU, HIV SCREEN, RONALD SERUM, PAT, METH, HBSAB, RA, HCBIGM #### [facility] , Cell Count Differential,CSF #2on 03-22-2023 RBC, CSF 0 /uL Normal [facility] Comment on above: Order Comment: Comme nt Tube 3 Result Comment: The reference interval and other method performance specifications have not been established for this body fluid. The test result must be integrated into the clinical context for interpretation. Performed By: #### C BC, CMP, MG, LDH, [id number] #### [address] #### LEAD,ADULT, KAPPA, SPE, ANCA PROF, SANDRA, CRYOGLOB, HBSAG, CU, HIV SCREEN, RONALD SERUM, PAT, METH, HBSAB, RA, HCBIGM #### [facility] , Tube Number Tested, CSF Tube Number: [address] [facility] Comment on above: Order Comment: Comme nt Tube 3 Result Comment: PERF ORMED BY: [place] [id number] PATHOLOGIST ANALYSIS MANAGER RUIZ CLIFTON M.D. Performed By: #### C BC, CMP, MG, LDH, [id number] #### [address] #### LEAD,ADULT, KAPPA, SPE, ANCA PROF, SANDRA, CRYOGLOB, HBSAG, CU, HIV SCREEN, RONALD SERUM, PAT, METH, HBSAB, RA, HCBIGM #### [facility] , Consultation Noteon 03-22-20 Consultation Note [id number]: 127 Normal [facility] Cryoglobulin with Quant Refl exon 03-22-2023 Cryoglobulin, Ql, Serum Normal None detected [facility] Comment on above: Result Comment: None Detected at 72 hours This test was developed and its performance characteristics determined by [facility]. It has not been cleared or approved by the Food and Drug Administration. Performed at: [address] [id number] Protective Service Specialist: Breezy Jones PhD, Phone: [phone] Performed By: #### C BC, CMP, MG, LDH, [id number] #### [address] #### LEAD,ADULT, KAPPA, SPE, ANCA PROF, SANDRA, CRYOGLOB, HBSAG, CU, HIV SCREEN, RONALD SERUM, PAT, METH, HBSAB, RA, HCBIGM #### [facility] , Drug Screen,Urineon 03-22-20 Amphetamine Screen,Urine Negative Normal Negative [facility] Comment on above: Performed By: #### P P, PLT #### [address] Barbiturate Screen,Urine Negative Normal Negative [facility] Comment on above: Performed By: #### P P, PLT #### [address] Benzodiazepines Screen,Urine Negative Normal Negative [facility] Comment on above: Performed By: #### P P, PLT #### [address] Cannabinoid Screen,Urine Negative Normal Negative [facility] Comment on above: Result Comment: Thes e are unconfirmed results and should not be used for legal purposes. Drug Cut-Off Concentration: AMPH 1000 ng/mL ALEXANDRO 200 ng/mL ATILIO 200 ng/mL COCM 300 ng/mL OP 300 ng/mL PCP 25 ng/mL THC 20 ng/mL PERFORMED BY: [place] [id number] PATHOLOGIST ANALYSIS MANAGER RUIZ CLIFTON M.D. Performed By: #### P P, PLT #### [address] Cocaine Screen,Urine Negative Normal Negative [facility] Comment on above: Performed By: #### P P, PLT #### [address] Opiate Screen,Urine Negative Normal Negative [facility] Comment on above: Performed By: #### P P, PLT #### [address] Phencyclidine Screen,Urine Negative Normal Negative [facility] Comment on above: Performed By: #### P P, PLT #### [facility] [address] ED Note-Physicianon 03-22-20 ED Note-Physician [id number]: 127 Normal [facility] Folate [Mass/volume] in Seru m or PlasmaOrdered By: Yoana Rico on 03-22-2023 Folate [Mass/Vol] 2.3 ng/mL >5.9 [facility] Comment on above: Folate reference ran ge: >5.9 ng/mlThe WHO technical consultation on folate and vitamin [id number] has determined that folate concentrations lessthan 4 ng/ml are considered deficient. Gamma-tocopherol measurement (mass/volume)Ordered By: Chele Gamino on 03-22-2023 Gamma tocopherol [Mass/Vol] 1.9 mg/L 0.7-4.9 [facility] Comment on above: This test was develo ped and its performance characteristicsdetermined by [facility]. It has not been cleared orapproved by the Food and Drug Administration.Reference intervals for alpha and gamma-tocopheroldetermined from National Health and Nutrition ExaminationSurvey, 3491-7312. Individuals with alpha-tocopherol levelsless than 5.0 mg/L are considered vitamin E deficient.Performed at: [facility] [address] [id number] Director: Lisa Ramos MD, Phone: [phone] Glucose mean value [Mass/vol ume] in Blood Estimated from glycated hemoglobinOrdered By: Chele Gamino on 03-22-2023 Average glucose Estimated from glycated hemoglobin (Bld) [Mass/Vol] 94 mg/dL [facility] Glucose, CSF #2on 03-22-2023 Glucose, CSF #2 84 mg/dL High 40-70 [facility] Comment on above: Order Comment: Comme nt Tube 3 Performed By: #### C BC, CMP, MG, LDH, [id number] #### [facility] [address] [place] [address] [place] #### LEAD,ADULT, KAPPA, SPE, ANCA PROF, SANDRA, CRYOGLOB, HBSAG, CU, HIV SCREEN, RONALD SERUM, PAT, METH, HBSAB, RA, HCBIGM #### [facility] , Glucose, Spinal Fluidon Glucose, Spinal Fluid 84 mg/dL High 40-70 [facility] Comment on above: Order Comment: Comme nt Tube 1 Performed By: #### C BC, CMP, MG, LDH, [id number] #### [facility] [address] [place] [address] [place] #### LEAD,ADULT, KAPPA, SPE, ANCA PROF, SANDRA, CRYOGLOB, HBSAG, CU, HIV SCREEN, RONALD SERUM, PAT, METH, HBSAB, RA, HCBIGM #### [facility] , Gram Stainon 03-22-2023 Microscopic observation Gram stain Nom (Unsp spec) Comment Tube 2 Gram Stain Result No Bacteria Seen No White Blood Cells Seen PERFORMED BY: [place] [id number] PATHOLOGIST ANALYSIS MANAGER RUIZ CLIFTON M.D. [facility] Comment on above: Performed By: #### C BC, CMP, MG, LDH, [id number] #### [facility] [address] [place] [address] #### LEAD,ADULT, KAPPA, SPE, ANCA PROF, SANDRA, CRYOGLOB, HBSAG, CU, HIV SCREEN, RONALD SERUM, PAT, METH, HBSAB, RA, HCBIGM #### [facility] , Gram stain for investigation of transfusion reactionOrdered By: Bernard Peterson on 03-22-2023 Microscopic observation Gram stain Nom (Unsp spec) [facility] Hemoglobin A1c percentageOrd ered By: Chele Gamino on 03-22-2023 HbA1c (Bld) [Mass fraction] 4.9 % 4.3-5.6 [facility] Comment on above: Increased risk for d iabetes: 5.7 - 6.4diabetes: >6.4glycemic control for adults with diabetes: <7.0 Hep C Ab wRfx to Qnt PCRon 0 9-01-2023 Hepatitis C Virus Antibody Non-Reactive Normal Non Reactive [facility] Comment on above: Performed By: #### C BC, CMP, MG, LDH, [id number] #### [address] #### LEAD,ADULT, KAPPA, SPE, ANCA PROF, SANDRA, CRYOGLOB, HBSAG, CU, HIV SCREEN, RONALD SERUM, PAT, METH, HBSAB, RA, HCBIGM #### [facility] , Interpretation Hepatitis C Normal . [facility] Comment on above: Result Comment: Not infected with HCV unless early or acute infection is suspected (which may be delayed in an immunocompromised individual), or other evidence exists to indicate HCV infection. Performed at: [facility] [id number] Protective Service Specialist: Breezy Jones PhD, Phone: [phone] PERFORMED BY: [place] [id number] PATHOLOGIST ANALYSIS MANAGER RUIZ CLIFTON M.D. Performed By: #### C BC, CMP, MG, LDH, [id number] #### [address] #### LEAD,ADULT, KAPPA, SPE, ANCA PROF, SANDRA, CRYOGLOB, HBSAG, CU, HIV SCREEN, RONALD SERUM, PAT, METH, HBSAB, RA, HCBIGM #### [facility] , Hepatic Panelon 03-22-2023 Albumin [Mass/Vol] 2.7 g/dL Low 3.5-5.7 [facility] Comment on above: Performed By: #### C BC, CMP, MG, LDH, [id number] #### [place] [address] [place] #### LEAD,ADULT, KAPPA, SPE, ANCA PROF, SANDRA, CRYOGLOB, HBSAG, CU, HIV SCREEN, RONALD SERUM, PAT, METH, HBSAB, RA, HCBIGM #### [facility] , Albumin/Globulin [Mass ratio] 1.1 {ratio} Normal [facility] Comment on above: Performed By: #### C BC, CMP, MG, LDH, [id number] #### [facility] [address] [place] [address] [place] #### LEAD,ADULT, KAPPA, SPE, ANCA PROF, SANDRA, CRYOGLOB, HBSAG, CU, HIV SCREEN, RONALD SERUM, PAT, METH, HBSAB, RA, HCBIGM #### [facility] , ALP [Catalytic activity/Vol] 80 U/L Normal 34-104 [facility] Comment on above: Performed By: #### C BC, CMP, MG, LDH, [id number] #### [facility] [address] [place] [address] [place] #### LEAD,ADULT, KAPPA, SPE, ANCA PROF, SANDRA, CRYOGLOB, HBSAG, CU, HIV SCREEN, RONALD SERUM, PAT, METH, HBSAB, RA, HCBIGM #### [facility] , ALT [Catalytic activity/Vol] 26 U/L Normal 7-52 [facility] Comment on above: Performed By: #### C BC, CMP, MG, LDH, [id number] #### [facility] [address] [place] [address] [place] #### LEAD,ADULT, KAPPA, SPE, ANCA PROF, SANDRA, CRYOGLOB, HBSAG, CU, HIV SCREEN, RONALD SERUM, PAT, METH, HBSAB, RA, HCBIGM #### [facility] , AST [Catalytic activity/Vol] 57 U/L High 13-39 [facility] Comment on above: Performed By: #### C BC, CMP, MG, LDH, [id number] #### [facility] [address] [place] [address] [place] #### LEAD,ADULT, KAPPA, SPE, ANCA PROF, SANDRA, CRYOGLOB, HBSAG, CU, HIV SCREEN, RONALD SERUM, PAT, METH, HBSAB, RA, HCBIGM #### [facility] , Bilirubin [Mass/Vol] 0.3 mg/dL Normal 0.3-1.0 [facility] Comment on above: Performed By: #### C BC, CMP, MG, LDH, [id number] #### [place] [address] [place] #### LEAD,ADULT, KAPPA, SPE, ANCA PROF, SANDRA, CRYOGLOB, HBSAG, CU, HIV SCREEN, RONALD SERUM, PAT, METH, HBSAB, RA, HCBIGM #### [facility] , Bilirubin,Indirect 0.2 mg/dL Normal [facility] Comment on above: Performed By: #### C BC, CMP, MG, LDH, [id number] #### [address] #### LEAD,ADULT, KAPPA, SPE, ANCA PROF, SANDRA, CRYOGLOB, HBSAG, CU, HIV SCREEN, RONALD SERUM, PAT, METH, HBSAB, RA, HCBIGM #### [facility] , Bilirubin.indirect [Mass/Vol] 0.10 mg/dL Normal 0.03-0.18 [facility] Comment on above: Performed By: #### C BC, CMP, MG, LDH, [id number] #### [place] [address] [place] #### LEAD,ADULT, KAPPA, SPE, ANCA PROF, SANDRA, CRYOGLOB, HBSAG, CU, HIV SCREEN, RONALD SERUM, PAT, METH, HBSAB, RA, HCBIGM #### [facility] , Globulin (S) [Mass/Vol] 2.5 g/dL Normal [facility] Comment on above: Performed By: #### C BC, CMP, MG, LDH, [id number] #### [place] [address] [place] #### LEAD,ADULT, KAPPA, SPE, ANCA PROF, SANDRA, CRYOGLOB, HBSAG, CU, HIV SCREEN, RONALD SERUM, PAT, METH, HBSAB, RA, HCBIGM #### [facility] , Protein [Mass/Vol] 5.2 g/dL Significant change down 6.4-8.9 [facility] Comment on above: Performed By: #### C BC, CMP, MG, LDH, [id number] #### [facility] [address] [place] [address] [place] #### LEAD,ADULT, KAPPA, SPE, ANCA PROF, SANDRA, CRYOGLOB, HBSAG, CU, HIV SCREEN, RONALD SERUM, PAT, METH, HBSAB, RA, HCBIGM #### [facility] , Hepatitis C virus IgG Ab [Pr esence] in Serum or Plasma by ImmunoassayOrdered By: Chele Gamino on 03-22-2023 HCV IgG IA Ql Non-Reactive Non Reactive [facility] IgA [Mass/volume] in Serum o r PlasmaOrdered By: Chele Gamino on 03-22-2023 IgA [Mass/Vol] 485 mg/dL 87-352 [facility] IgG [Mass/volume] in Serum o r PlasmaOrdered By: Chele Gamino on 03-22-2023 IgG [Mass/Vol] 1046 mg/dL 586-1602 [facility] IgM [Mass/volume] in Serum o r PlasmaOrdered By: Chele Gamino on 03-22-2023 IgM [Mass/Vol] 343 mg/dL 26-217 [facility] Immunofixation,Serumon 03-22 Immunofixation, Serum Normal . [facility] Comment on above: Result Comment: No m onoclonality detected. Performed By: #### C BC, CMP, MG, LDH, [id number] #### [facility] [address] [place] [address] [place] #### LEAD,ADULT, KAPPA, SPE, ANCA PROF, SANDRA, CRYOGLOB, HBSAG, CU, HIV SCREEN, RONALD SERUM, PAT, METH, HBSAB, RA, HCBIGM #### [facility] , Immunoglobulin A, Serum 485 mg/dL High 87-352 [facility] Comment on above: Performed By: #### C BC, CMP, MG, LDH, [id number] #### [facility] [address] [place] [address] [place] #### LEAD,ADULT, KAPPA, SPE, ANCA PROF, SANDRA, CRYOGLOB, HBSAG, CU, HIV SCREEN, RONALD SERUM, PAT, METH, HBSAB, RA, HCBIGM #### [facility] , Immunoglobulin G 1046 mg/dL Normal 586-1602 [facility] Comment on above: Performed By: #### C BC, CMP, MG, LDH, [id number] #### [facility] [address] #### LEAD,ADULT, KAPPA, SPE, ANCA PROF, SANDRA, CRYOGLOB, HBSAG, CU, HIV SCREEN, RONALD SERUM, PAT, METH, HBSAB, RA, HCBIGM #### [facility] , Immunoglobulin M, Serum 343 mg/dL High 26-217 [facility] Comment on above: Performed By: #### C BC, CMP, MG, LDH, [id number] #### [address] #### LEAD,ADULT, KAPPA, SPE, ANCA PROF, SANDRA, CRYOGLOB, HBSAG, CU, HIV SCREEN, RONALD SERUM, PAT, METH, HBSAB, RA, HCBIGM #### [facility] , Lab Reportson 03-22-2023 Lab Reports [id number]: 127 Normal [facility] Lactate [Moles/volume] in Se rum or PlasmaOrdered By: Brianne Umanzor on 03-22-2023 Lactate [Moles/Vol] 3.4 mmol/L 0.5-2.2 [facility] Comment on above: Critical Result : Ca lled to and read back by: KHUSHBU OLIVARES at: 03/22/2023 15:35:40 by:ACE Lactic Acidon 03-22-2023 Lactate [Moles/Vol] 4.4 mmol/L Off scale high 0.5-2.2 F [facility] Comment on above: Result Comment: Crit ical Result : Called to and read back by: GINNY ZARATE/Berta at: 03/22/2023 11:08:56 by:[id number] PERFORMED BY: [place] [id number] PATHOLOGIST ANALYSIS MANAGER RUIZ CLIFTON M.D. Performed By: #### C BC, CMP, MG, LDH, [id number] #### [address] #### LEAD,ADULT, KAPPA, SPE, ANCA PROF, SANDRA, CRYOGLOB, HBSAG, CU, HIV SCREEN, RONALD SERUM, PAT, METH, HBSAB, RA, HCBIGM #### [facility] , Lactic Acid Reflexon 023 Lactic Acid Reflex 3.4 mmol/L Off scale high 0.5-2.2 [facility] Comment on above: Result Comment: Crit ical Result : Called to and read back by: KHUSHBU OLIVARES at: 03/22/2023 15:35:40 by:ACE PERFORMED BY: [place] [phone] PATHOLOGIST ANALYSIS MANAGER RUIZ CLIFTON M.D. Performed By: #### L ACTIC RFX #### [address] Lactic Acid Reflex 3.9 mmol/L Off scale high 0.5-2.2 [facility] Comment on above: Result Comment: Crit ical Result : Called to and read back by: ADIEL MARTÍNEZ at: 03/22/2023 02:09:36 by:PRIYANKA PERFORMED BY: [place] [id number] PATHOLOGIST ANALYSIS MANAGER RUIZ CLIFTON M.D. Performed By: #### C BC, CMP, MG, LDH, [id number] #### [address] #### LEAD,ADULT, KAPPA, SPE, ANCA PROF, SANDRA, CRYOGLOB, HBSAG, CU, HIV SCREEN, RONALD SERUM, PAT, METH, HBSAB, RA, HCBIGM #### [facility] , MR head/brain wo/w conon MR head/brain wo/w con [facility] Main [place] [address] [place] [address] MRI Report Signed Patient: Rica Stout MR#: [id number] 39 : 1995 Acct:[id number] Age/Sex: 27 / F ADM Date: 03/22/23 Loc: Room: [address] [place] [address] Type: ADM IN Attending Dr: Brianne Umanzor MD Copies to: MD Brianne Toscano MD Ordering Provider: Parveen Keller MD Date of Service: 03/22/23 MR/MR head/brain wo/w con: numbness MR head/brain wo/w con 03/22/2023 11:26 AM SIGN AND SYMPTOMS: Bilateral lower extremity numbness, abnormal EMG. PROTOCOL: Multiplanar multisequence MR images of the brain were obtained with and without IV contrast CONTRAST: 13 mL of intravenous ProHance COMPARISON: 03/21/2023 FINDINGS: Extra axial spaces: Age appropriate. Hemorrhage: None. Ventricular system: Within normal limits. Basal cisterns: Within normal limits and not effaced. Cerebral parenchyma: Normal in signal. Midline shift: None.. Cerebellum: Within normal limits. Brainstem: Within normal limits. OTHER: Calvarium: Normal marrow signal. Vascular system: Satisfactory flow voids within the anterior and posterior circulation. Visualized Paranasal sinuses: Within normal limits. Visualized Orbits: Within normal limits. Visualized upper cervical spine: Within normal limits. Sella and skull base: Within normal limits. MR/MR head/brain wo/w con IMPRESSION: No acute intracranial pathology or abnormal postcontrast enhancement. Impression dictated by: Lowell Blake M.D.03/22/2023 3:05 PM Dictation Location: [place] [address] Transcribed By: [facility] 03/22/23 1503 Dictated By: Lowell Blake II, MD 03/22/23 1454 Signed By: 03/22/[address] [facility] Magnesiumon 03-22-2023 Magnesium [Mass/Vol] 1.7 mg/dL Low 1.9-2.7 [facility] Comment on above: Result Comment: PERF ORMED BY: [facility] [address] [place] [address] PATHOLOGIST ANALYSIS MANAGER RUIZ CLIFTON M.D. Performed By: #### C BC, CMP, MG, LDH, [id number] #### [facility] [address] #### LEAD,ADULT, KAPPA, SPE, ANCA PROF, SANDRA, CRYOGLOB, HBSAG, CU, HIV SCREEN, RONALD SERUM, PAT, METH, HBSAB, RA, HCBIGM #### [facility] , No Panel InformationOrdered By: Chele Gamino on 03-22-2023 Hepatitis C Interpretation See comment . [facility] Comment on above: Not infected with HC V unless early or acute infection issuspected (which may be delayed in an immunocompromisedindividual), or other evidence exists to indicate HCVinfection.Performed at: [facility] [facility] [id number] Director: Breezy Jones PhD, Phone: [phone] Hepatitis C RNA Quantitative N/A [facility] Protein Electrophoresis M-Tomas Not observed g/dL Not Observed [facility] Protein Electrophoresis Note See comment . [facility] Comment on above: Protein electrophore sis scan will follow via computer,mail, or acreage reporter delivery.Performed at: [employer] [id number] Director: Breezy Jones PhD, Phone: [phone] Serum Immunofixation See comment . [facility] Comment on above: No monoclonality det ected. Opiates [Presence] in Urine by Screen methodOrdered By: Chele Gamino on 03-22-2023 Opiates Screen Ql (U) Negative Negative [facility] Phencyclidine Screen Ql (U)O rdered By: Chele Gamino on 03-22-2023 Phencyclidine Ql (U) Negative Negative [facility] Phosphate [Mass/volume] in S caitlyn or PlasmaOrdered By: Yoana Rico on 03-22-2023 Phosphate [Mass/Vol] 3.4 mg/dL 3.7-7.2 [facility] Phosphoruson 03-22-2023 Phosphate [Mass/Vol] 3.4 mg/dL Low 3.7-7.2 [facility] Comment on above: Performed By: #### C BC, CMP, MG, LDH, [id number] #### [address] #### LEAD,ADULT, KAPPA, SPE, ANCA PROF, SANDRA, CRYOGLOB, HBSAG, CU, HIV SCREEN, RONADL SERUM, PAT, METH, HBSAB, RA, HCBIGM #### [facility] , Protein Electrophoresis, Ser umon 03-22-2023 Albumin [Mass/Vol] 3.1 g/dL Normal 2.9-4.4 [facility] Comment on above: Performed By: #### C BC, CMP, MG, LDH, [id number] #### [address] #### LEAD,ADULT, KAPPA, SPE, ANCA PROF, SANDRA, CRYOGLOB, HBSAG, CU, HIV SCREEN, RONALD SERUM, PAT, METH, HBSAB, RA, HCBIGM #### [facility] , Albumin/Globulin [Mass ratio] 1.1 {ratio} Normal 0.7-1.7 [facility] Comment on above: Performed By: #### C BC, CMP, MG, LDH, [id number] #### [address] #### LEAD,ADULT, KAPPA, SPE, ANCA PROF, SANDRA, CRYOGLOB, HBSAG, CU, HIV SCREEN, RONALD SERUM, PAT, METH, HBSAB, RA, HCBIGM #### [facility] , Xsydq-4-Wzhgtbto 0.2 g/dL Normal 0.0-0.4 [facility] Comment on above: Performed By: #### C BC, CMP, MG, LDH, [id number] #### [address] #### LEAD,ADULT, KAPPA, SPE, ANCA PROF, SANDRA, CRYOGLOB, HBSAG, CU, HIV SCREEN, RONALD SERUM, PAT, METH, HBSAB, RA, HCBIGM #### [facility] , Xnere-5-Eeqaoabl 0.7 g/dL Normal 0.4-1.0 [facility] Comment on above: Performed By: #### C BC, CMP, MG, LDH, [id number] #### [address] #### LEAD,ADULT, KAPPA, SPE, ANCA PROF, SANDRA, CRYOGLOB, HBSAG, CU, HIV SCREEN, RONALD SERUM, PAT, METH, HBSAB, RA, HCBIGM #### [facility] , Beta Globulin 0.9 g/dL Normal 0.7-1.3 [facility] Comment on above: Performed By: #### C BC, CMP, MG, LDH, [id number] #### [address] #### LEAD,ADULT, KAPPA, SPE, ANCA PROF, SANDRA, CRYOGLOB, HBSAG, CU, HIV SCREEN, RONALD SERUM, PAT, METH, HBSAB, RA, HCBIGM #### [facility] , Gamma Globulin 1.1 g/dL Normal 0.4-1.8 [facility] Comment on above: Performed By: #### C BC, CMP, MG, LDH, [id number] #### [address] #### LEAD,ADULT, KAPPA, SPE, ANCA PROF, SANDRA, CRYOGLOB, HBSAG, CU, HIV SCREEN, RONALD SERUM, PAT, METH, HBSAB, RA, HCBIGM #### [facility] , Globulin (S) [Mass/Vol] 2.8 g/dL Normal 2.2-3.9 [facility] Comment on above: Performed By: #### C BC, CMP, MG, LDH, [id number] #### [address] #### LEAD,ADULT, KAPPA, SPE, ANCA PROF, SANDRA, CRYOGLOB, HBSAG, CU, HIV SCREEN, RONALD SERUM, PAT, METH, HBSAB, RA, HCBIGM #### [facility] , M-Tomas Not Observed Normal Not Observed [facility] Comment on above: Performed By: #### C BC, CMP, MG, LDH, [id number] #### [address] #### LEAD,ADULT, KAPPA, SPE, ANCA PROF, SANDRA, CRYOGLOB, HBSAG, CU, HIV SCREEN, RONALD SERUM, PAT, METH, HBSAB, RA, HCBIGM #### [facility] , Protein [Mass/Vol] 5.9 g/dL Low 6.0-8.5 [facility] Comment on above: Performed By: #### C BC, CMP, MG, LDH, [id number] #### [address] #### LEAD,ADULT, KAPPA, SPE, ANCA PROF, SANDRA, CRYOGLOB, HBSAG, CU, HIV SCREEN, RONALD SERUM, PAT, METH, HBSAB, RA, HCBIGM #### [facility] , SPE-Note Normal . [facility] Comment on above: Result Comment: Prot ein electrophoresis scan will follow via computer, mail, or acreage reporter delivery. Performed at: - [facility] [id number] Protective Service Specialist: Breezy Jones PhD, Phone: [phone] PERFORMED BY: [place] [id number] PATHOLOGIST ANALYSIS MANAGER RUIZ CLIFTON M.D. Performed By: #### C BC, CMP, MG, LDH, [id number] #### [address] #### LEAD,ADULT, KAPPA, SPE, ANCA PROF, SANDRA, CRYOGLOB, HBSAG, CU, HIV SCREEN, RONALD SERUM, PAT, METH, HBSAB, RA, HCBIGM #### [facility] , Protein [Mass/volume] in Ser um or PlasmaOrdered By: Chele Gamino on 03-22-2023 Protein [Mass/Vol] 5.9 g/dL 6.0-8.5 [facility] RAD - CT Reporton 03-22-2023 RAD - CT Report [id number]: 127 Normal [facility] Serum cryoglobulin detection Ordered By: Chele Gamino on 03-22-2023 Cryoglobulin Ql (S) See comment None detected [facility] Comment on above: None Detected at 72 hoursThis test was developed and its performance characteristicsdetermined by [employer]. It has not been cleared orapproved by the Food and Drug Administration.Performed at: [facility] [address] [id number] Director: Breezy Jones PhD, Phone: [phone] Serum globulin measurement ( mass/volume)Ordered By: Chele Gamino on 03-22-2023 Globulin (S) [Mass/Vol] 2.8 g/dL 2.2-3.9 [facility] Serum or plasma albumin/glob ulin mass ratioOrdered By: Chele Gamino on 03-22-2023 Albumin/Globulin [Mass ratio] 1.1 {ratio} 0.7-1.7 [facility] Serum or plasma alpha 1 glob ulin measurement by electrophoresis (mass/volume)Ordered By: Chele Gamino on 03-22-2023 Alpha 1 globulin Elph [Mass/Vol] 0.2 g/dL 0.0-0.4 [facility] Serum or plasma alpha 2 glob ulin measurement by electrophoresis (mass/volume)Ordered By: Chele Gamino on 03-22-2023 Alpha 2 globulin Elph [Mass/Vol] 0.7 g/dL 0.4-1.0 [facility] Serum or plasma beta globuli n measurement by electrophoresis (mass/volume)Ordered By: Chele Gamino on 03-22-2023 Beta globulin Elph [Mass/Vol] 0.9 g/dL 0.7-1.3 [facility] Serum or plasma free cefurox audelia measurement (mass/volume)Ordered By: Chele Gamino on 03-22-2023 Cefuroxime free [Mass/Vol] Negative Negative [facility] Comment on above: Performed at: [address] [id number] Director: Breezy Jones PhD, Phone: [phone] Serum or plasma gamma globul in measurement by electrophoresis (mass/volume)Ordered By: Chele Gamino on 03-22-2023 Gamma globulin Elph [Mass/Vol] 1.1 g/dL 0.4-1.8 [facility] Serum or plasma non-glucuron idated bilirubin measurement (mass/volume)Ordered By: Yoana Rico on 03-22-2023 Bilirubin.indirect [Mass/Vol] 0.2 mg/dL [facility] Thyroid Stimulating Hormoneo n 03-22-2023 TSH Qn 2.53 m[IU]/L Normal 0.45-5.33 [facility] Comment on above: Result Comment: PERF ORMED BY: [place] [id number] PATHOLOGIST ANALYSIS MANAGER RUIZ CLIFTON M.D. Performed By: #### C BC, CMP, MG, LDH, [id number] #### [address] #### LEAD,ADULT, KAPPA, SPE, ANCA PROF, SANDRA, CRYOGLOB, HBSAG, CU, HIV SCREEN, RONALD SERUM, PAT, METH, HBSAB, RA, HCBIGM #### [facility] , Thyrotropin [Units/volume] i n Serum or PlasmaOrdered By: Chele Gamino on 03-22-2023 TSH Qn 2.53 m[IU]/L 0.45-5.33 [facility] Total Protein, CSF #2on 09- Total Protein, CSF #2 36 mg/dL Normal 15-45 [facility] Comment on above: Order Comment: Comme nt Tube 3 Result Comment: PERF ORMED BY: [place] [id number] PATHOLOGIST ANALYSIS MANAGER RUIZ CLIFTON M.D. Performed By: #### C BC, CMP, MG, LDH, [id number] #### [address] #### LEAD,ADULT, KAPPA, SPE, ANCA PROF, SANDRA, CRYOGLOB, HBSAG, CU, HIV SCREEN, RONALD SERUM, PAT, METH, HBSAB, RA, HCBIGM #### [facility] , Total Protein, Spinal Fluido n 03-22-2023 Total Protein, Spinal Fluid 39 mg/dL Normal 15-45 [facility] Comment on above: Order Comment: Comme nt Tube 1 Result Comment: PERF ORMED BY: [place] [id number] PATHOLOGIST ANALYSIS MANAGER RUIZ CLIFTON M.D. Performed By: #### C BC, CMP, MG, LDH, [id number] #### [address] #### LEAD,ADULT, KAPPA, SPE, ANCA PROF, SANDRA, CRYOGLOB, HBSAG, CU, HIV SCREEN, RONALD SERUM, PAT, METH, HBSAB, RA, HCBIGM #### [facility] , Vit. B12/Folate Profileon Cobalamin (Vitamin B12) [Mass/Vol] 417 pg/mL Normal 180-914 [facility] Comment on above: Performed By: #### C BC, CMP, MG, LDH, [id number] #### [address] #### LEAD,ADULT, KAPPA, SPE, ANCA PROF, SANDRA, CRYOGLOB, HBSAG, CU, HIV SCREEN, RONALD SERUM, PAT, METH, HBSAB, RA, HCBIGM #### [facility] , Folate 2.3 ng/mL Low >5.9 [facility] Comment on above: Result Comment: Astrid te reference range: >5.9 ng/ml The WHO technical consultation on folate and vitamin b12 deficiencies has determined that folate concentrations less than 4 ng/ml are considered deficient. PERFORMED BY: [place] [id number] PATHOLOGIST ANALYSIS MANAGER RUIZ CLIFTON M.D. Performed By: #### C BC, CMP, MG, LDH, [id number] #### [address] #### LEAD,ADULT, KAPPA, SPE, ANCA PROF, SANDRA, CRYOGLOB, HBSAG, CU, HIV SCREEN, RONALD SERUM, PAT, METH, HBSAB, RA, HCBIGM #### [facility] , Vitamin B12 ser/plasOrdered By: Yoana Rico on 03-22-2023 Cobalamin (Vitamin B12) [Mass/Vol] 417 pg/mL 180-914 [facility] Vitamin E, Alpha Gamma Tocop on 03-22-2023 Vitamin E Alpha Tocopherol 10.9 mg/L Normal 5.9-19.4 [facility] Comment on above: Result Comment: This test was developed and its performance characteristics determined by [employer]. It has not been cleared or approved by the Food and Drug Administration. Performed By: #### C BC, CMP, MG, LDH, [id number] #### [place] [address] [place] #### LEAD,ADULT, KAPPA, SPE, ANCA PROF, SANDRA, CRYOGLOB, HBSAG, CU, HIV SCREEN, RONALD SERUM, PAT, METH, HBSAB, RA, HCBIGM #### [facility] , Vitamin E GammaTocopherol 1.9 mg/L Normal 0.7-4.9 [facility] Comment on above: Result Comment: This test was developed and its performance characteristics determined by [employer]. It has not been cleared or approved by the Food and Drug Administration. Reference intervals for alpha and gamma-tocopherol determined from National Health and Nutrition Examination Survey, 5096-9737. Individuals with alpha-tocopherol levels less than 5.0 mg/L are considered vitamin E deficient. Performed at: [place] [id number] Protective Service Specialist: Lisa Ramos MD, Phone: [phone] Performed By: #### C BC, CMP, MG, LDH, [id number] #### [address] #### LEAD,ADULT, KAPPA, SPE, ANCA PROF, SANDRA, CRYOGLOB, HBSAG, CU, HIV SCREEN, RONALD SERUM, PAT, METH, HBSAB, RA, HCBIGM #### [facility] , XR chest 1V portableon 03-22 XR chest 1V portable [place] [address] XRay Report Signed Patient: Rica Stout MR#: [id number] 39 : 1995 Acct:[id number] Age/Sex: 27 / F ADM Date: 03/22/23 Loc: Room: [address] [place] [address] Type: ADM IN Attending Dr: Parveen Keller MD Copies to: DO Parveen Montano MD Ordering Provider: Bernard Peterson DO Date of Service: 03/21/23 XR/XR chest 1V portable: Neuro Symptoms/Deficit Plain film chest single view HISTORY: Leg swelling COMPARISON: None FINDINGS: SUPPORT DEVICES: None POSTSURGICAL CHANGES: None HEART: Within normal limits PULMONARY EMERALD: Within normal limits MEDIASTINUM: Unremarkable LUNGS AND PLEURA: No acute lung process, pleural effusion or pneumothorax identified. BONY STRUCTURES: Intact ADDITIONAL FINDINGS None XR/XR chest 1V portable IMPRESSION: No acute process. Impression dictated by: Dave Clark M.D.03/22/2023 8:07 AM Dictation Location: [place] [address] Transcribed By: [facility] 03/22/23806 Dictated By: Dave Clark DO 03/22/23806 Signed By: 03/22/[address] [facility] XR pre/post mri xrayon 03-22 XR pre/post mri xray [facility] [place] [id number] MRI Report Signed Patient: Rica Stout MR#: [id number] 39 : 1995 Acct:[id number] Age/Sex: 27 / F ADM Date: 03/22/23 Loc: 4N Room: 6E6169-9 Type: ADM IN Attending Dr: Brianne Umanzor MD Copies to: DO Brianne Stevenson MD Ordering Provider: Chele Gamino DO; Brianne Umanzor MD Date of Service: 03/22/23 MR/MR lumbar spine wo/w con: CIDP rule out ([id number]) XR/XR pre/post mri xray: . MR lumbar spine wo/w con, XR pre/post mri xray 03/22/2023 2:04 PM SIGNS AND SYMPTOMS: CIDP rule out, bilateral lower extremity numbness, abnormal EMG PROTOCOL: Multiplanar multisequence MR images of the lumbar spine were obtained with and without IV contrast. Frontal and lateral radiographs of the lumbar spine were obtained. CONTRAST: 13 mL of intravenous ProHance COMPARISON: None. FINDINGS: Radiograph the lumbar spine: There is a dextro convex curvature of the lumbar spine. There is mild disc height loss at L1 and T11-T12. There is no fracture or subluxation. The vertebral body heights are preserved. The sacroiliac joints are preserved. Vascular calcifications are present in the pelvis. MRI lumbar spine: The bones of the lumbar spine are in anatomic alignment. There is preservation of vertebral body heights. Disc height loss is as noted above. There is mild Modic type II fatty endplate degenerative change at T11-T12. The marrow signal is within normal limits, otherwise. The conus terminates at the mid L1 vertebral body level. No epidural or paraspinous fluid collection is appreciated. There is no abnormal postcontrast enhancement. At T12-L1: There is a broad-based disc bulge. No significant stenosis. At L1-L2: There is a mild broad-based disc bulge without significant stenosis. At L2-L3: There is a normal disc, central canal, and neural foramen. At L3-L4: There is a normal disc, central canal, and neural foramen. At L4-L5: There is a normal disc, central canal, and neural foramen. At L5-S1: There is a normal disc, central canal, and neural foramen. MR/MR lumbar spine wo/w con IMPRESSION: Mild degenerative changes are noted, as described above without significant spinal canal or neural foraminal narrowing. No mass or abnormal postcontrast enhancement. Impression dictated by: Lowell Blake M.D.03/22/2023 3:10 PM Dictation Location: [place] [address] Transcribed By: RAJESH 03/22/23 1510 Dictated By: Lowell Blake II, MD 03/22/23 1505 Signed By: 03/22/[address] [facility] Activated partial thrombopla stin time (aPTT) in platelet poor plasma by coagulation aOrdered By: Bernard Peterson on 03-21-2023 aPTT Coag (PPP) [Time] 30.4 s 25.1-36.5 [facility] Aerobic cultureOrdered By: Olivia Peterson on 03-21-2023 Bacteria identified Aer cx Nom (Unsp spec) No Growth [address] [facility] Alanine aminotransferase [En zymatic activity/volume] in Serum or PlasmaOrdered By: Bernard Peterson on 03-21-2023 ALT [Catalytic activity/Vol] 37 U/L 7-52 [facility] Albumin [Mass/volume] in Ser um or Plasma by Bromocresol green (BCG) dye binding methoOrdered By: Bernard Peterson on 03-21-2023 Albumin BCG dye [Mass/Vol] 3.5 g/dL 3.5-5.7 [facility] Alkaline phosphatase [Enzyma tic activity/volume] in Serum or PlasmaOrdered By: Bernard Peterson on 03-21-2023 ALP [Catalytic activity/Vol] 112 U/L 34-104 [facility] Anaerobic cultureOrdered By: Bernard Peterson on 03-21-2023 Bacteria identified Anaer cx Nom (Unsp spec) No Anaerobes Isolated [address] [facility] Aspartate aminotransferase [ Enzymatic activity/volume] in Serum or PlasmaOrdered By: Bernard Peterson on 03-21-2023 AST [Catalytic activity/Vol] 79 U/L 13-39 [facility] Automated erythrocytes count in urine sediment (number/area)Ordered By: PROVIDER TEMP on 03-21-2023 RBC Auto (Urine sed) [#/Area] 0-1 [HPF] 0-4 [facility] Automated leukocytes count i n urine sediment (number/area)Ordered By: PROVIDER TEMP on 03-21-2023 WBC Auto (Urine sed) [#/Area] 20-49 [HPF] 0-4 [facility] Automated urine hyaline cast s count (number/volume)Ordered By: PROVIDER TEMP on 03-21-2023 Hyaline casts Auto (U) [#/Vol] None seen [LPF] 0-1 [facility] Bacterial blood cultureOrder ed By: Bernard Peterson on 03-21-2023 Bacteria identified Cx Nom (Bld) NO GROWTH [address] [facility] Basic Metabolic Panelon 08 Anion gap [Moles/Vol] 16.2 mmol/L High 6.0-15.0 [facility] Comment on above: Performed By: #### C BC, CMP, MG, LDH, [id number] #### [facility] [address] [place] [address] [place] #### LEAD,ADULT, KAPPA, SPE, ANCA PROF, SANDRA, CRYOGLOB, HBSAG, CU, HIV SCREEN, RONALD SERUM, PAT, METH, HBSAB, RA, HCBIGM #### [facility] , Calcium [Mass/Vol] 8.5 mg/dL Low 8.6-10.3 [facility] Comment on above: Performed By: #### C BC, CMP, MG, LDH, [id number] #### [facility] [address] [place] [address] [place] #### LEAD,ADULT, KAPPA, SPE, ANCA PROF, SANDRA, CRYOGLOB, HBSAG, CU, HIV SCREEN, RONALD SERUM, PAT, METH, HBSAB, RA, HCBIGM #### [facility] , Chloride [Moles/Vol] 108 mmol/L High 98-107 [facility] Comment on above: Performed By: #### C BC, CMP, MG, LDH, [id number] #### [facility] [address] [place] [address] [place] #### LEAD,ADULT, KAPPA, SPE, ANCA PROF, SANDRA, CRYOGLOB, HBSAG, CU, HIV SCREEN, RONALD SERUM, PAT, METH, HBSAB, RA, HCBIGM #### [facility] , CO2 [Moles/Vol] 20.0 mmol/L Low 21.0-31.0 [facility] Comment on above: Performed By: #### C BC, CMP, MG, LDH, [id number] #### [facility] [address] [place] [address] #### LEAD,ADULT, KAPPA, SPE, ANCA PROF, SANDRA, CRYOGLOB, HBSAG, CU, HIV SCREEN, RONALD SERUM, PAT, METH, HBSAB, RA, HCBIGM #### [facility] , Creatinine [Mass/Vol] 0.49 mg/dL Low 0.60-1.20 [facility] Comment on above: Performed By: #### C BC, CMP, MG, LDH, [id number] #### [facility] [address] [place] [address] [place] #### LEAD,ADULT, KAPPA, SPE, ANCA PROF, SANDRA, CRYOGLOB, HBSAG, CU, HIV SCREEN, RONALD SERUM, PAT, METH, HBSAB, RA, HCBIGM #### [facility] , Creatinine Clr Calc Pharm[facility] 148.[address] [facility] Comment on above: Performed By: #### C BC, CMP, MG, LDH, [id number] #### [facility] [address] [place] [address] [place] #### LEAD,ADULT, KAPPA, SPE, ANCA PROF, SANDRA, CRYOGLOB, HBSAG, CU, HIV SCREEN, RONALD SERUM, PAT, METH, HBSAB, RA, HCBIGM #### [facility] , GFR/1.73 sq M.predicted MDRD (S/P/Bld) [Vol rate/Area] mL/min/{1.73_m2} Normal [facility] Comment on above: Performed By: #### C BC, CMP, MG, LDH, [id number] #### [facility] [address] [place] [address] [place] #### LEAD,ADULT, KAPPA, SPE, ANCA PROF, SANDRA, CRYOGLOB, HBSAG, CU, HIV SCREEN, RONALD SERUM, PAT, METH, HBSAB, RA, HCBIGM #### [facility] , Glucose [Mass/Vol] 130 mg/dL High 70-100 [facility] Comment on above: Result Comment: [facility] Glucose Reference Range is dependent on time and content of last meal. Glucose of more than 200 mg/dL in a nonstressed, ambulatory subject supports the diagnosis of Diabetes Mellitus. ADA recommended reference range Performed By: #### C BC, CMP, MG, LDH, [id number] #### [place] [address] [place] #### LEAD,ADULT, KAPPA, SPE, ANCA PROF, SANDRA, CRYOGLOB, HBSAG, CU, HIV SCREEN, RONALD SERUM, PAT, METH, HBSAB, RA, HCBIGM #### [facility] , Potassium [Moles/Vol] 3.2 mmol/L Low 3.5-5.1 [facility] Comment on above: Performed By: #### C BC, CMP, MG, LDH, [id number] #### [place] [address] [place] #### LEAD,ADULT, KAPPA, SPE, ANCA PROF, SANDRA, CRYOGLOB, HBSAG, CU, HIV SCREEN, RONALD SERUM, PAT, METH, HBSAB, RA, HCBIGM #### [facility] , Sodium [Moles/Vol] 141 mmol/L Normal 136-145 [facility] Comment on above: Performed By: #### C BC, CMP, MG, LDH, [id number] #### [place] [address] [place] #### LEAD,ADULT, KAPPA, SPE, ANCA PROF, SANDRA, CRYOGLOB, HBSAG, CU, HIV SCREEN, RONALD SERUM, PAT, METH, HBSAB, RA, HCBIGM #### [facility] , Urea nitrogen [Mass/Vol] 3 mg/dL Low 7-25 [facility] Comment on above: Performed By: #### C BC, CMP, MG, LDH, [id number] #### [address] #### LEAD,ADULT, KAPPA, SPE, ANCA PROF, SANDRA, CRYOGLOB, HBSAG, CU, HIV SCREEN, RONALD SERUM, PAT, METH, HBSAB, RA, HCBIGM #### [facility] , Basophils Auto (Bld) [#/Vol] Ordered By: Bernard Peterson on 03-21-2023 Basophils (Bld) [#/Vol] 0.1 10*3/uL 0.0-0.2 [facility] Basophils/100 WBC Auto (Bld) Ordered By: Bernard Peterson on 03-21-2023 Basophils/100 WBC (Bld) 1.6 % . [facility] Bilirubin Test strip Ql (U)O rdered By: PROVIDER TEMP on 03-21-2023 Bilirubin Ql (U) Negative Negative [facility] Bilirubin.direct [Mass/volum e] in Serum or PlasmaOrdered By: Bernard Peterson on 03-21-2023 Bilirubin.direct [Mass/Vol] 0.10 mg/dL 0.03-0.18 [facility] Bilirubin.total [Mass/volume ] in Serum or PlasmaOrdered By: Bernard Peterson on 03-21-2023 Bilirubin [Mass/Vol] 0.5 mg/dL 0.3-1.0 [facility] Blood Cultureon 03-21-2023 Bacteria identified Cx Nom (Bld) NO GROWTH 5 DAYS PERFORMED BY: [place] [id number] PATHOLOGIST ANALYSIS MANAGER RUIZ CLIFTON M.D. [facility] Comment on above: Performed By: #### C BC, CMP, MG, LDH, [id number] #### [facility] [address] [place] [address] [place] #### LEAD,ADULT, KAPPA, SPE, ANCA PROF, SANDRA, CRYOGLOB, HBSAG, CU, HIV SCREEN, RONALD SERUM, PAT, METH, HBSAB, RA, HCBIGM #### [facility] , C reactive protein [Mass/vol ume] in Serum or PlasmaOrdered By: Bernard Peterson on 03-21-2023 CRP [Mass/Vol] < 0.5 mg/dL 0.0-0.5 [facility] C-Reactive Proteinon 023 CRP [Mass/Vol] mg/L Normal 0.0-0.5 [facility] Comment on above: Result Comment: PERF ORMED BY: [place] [id number] PATHOLOGIST ANALYSIS MANAGER RUIZ CLIFTON M.D. Performed By: #### C BC, CMP, MG, LDH, [id number] #### [facility] [address] [place] [address] #### LEAD,ADULT, KAPPA, SPE, ANCA PROF, SANDRA, CRYOGLOB, HBSAG, CU, HIV SCREEN, RONALD SERUM, PAT, METH, HBSAB, RA, HCBIGM #### [facility] , Calcium [Mass/volume] in Ser um or PlasmaOrdered By: Bernard Peterson on 03-21-2023 Calcium [Mass/Vol] 8.5 mg/dL 8.6-10.3 [facility] Carbon dioxide, total [Moles /volume] in Serum or PlasmaOrdered By: Bernard Peterson on 03-21-2023 CO2 [Moles/Vol] 20.0 mmol/L 21.0-31.0 [facility] Casts typing in urine sedime nt by light microscopyOrdered By: PROVIDER TEMP on 03-21-2023 Casts LM Nom (Urine sed) None seen [LPF] None Seen [facility] Cerebrospinal fluid post-chloé trifugation appearance determinationOrdered By: Bernard Peterson on 03-21-2023 Appearance (Spun CSF) Colorless Colorless [facility] Cerebrospinal fluid sample t ube volume measurementOrdered By: Bernard Peterson on 03-21-2023 Specimen volume (CSF) 3.5 mL [facility] Chloride [Moles/volume] in S caitlyn or PlasmaOrdered By: Bernard Peterson on 03-21-2023 Chloride [Moles/Vol] 108 mmol/L 98-107 [facility] Color Auto (U)Ordered By: YARON GUERRERO TEMP on 03-21-2023 Color (U) Yellow Yellow [facility] Color CSFOrdered By: Bernadr Peterson on 03-21-2023 Color (CSF) Colorless Colorless [facility] Complete Blood Count Auto Di ffon 03-21-2023 Basophils (Bld) [#/Vol] 0.1 10*3/uL Normal 0.0-0.2 [facility] Comment on above: Performed By: #### C BC, CMP, MG, LDH, [id number] #### [facility] [address] [place] [address] [place] #### LEAD,ADULT, KAPPA, SPE, ANCA PROF, SANDRA, CRYOGLOB, HBSAG, CU, HIV SCREEN, RONALD SERUM, PAT, METH, HBSAB, RA, HCBIGM #### [facility] , Basophils/100 WBC (Bld) 1.6 % Normal . [facility] Comment on above: Performed By: #### C BC, CMP, MG, LDH, [id number] #### [facility] [address] [place] [address] [place] #### LEAD,ADULT, KAPPA, SPE, ANCA PROF, SANDRA, CRYOGLOB, HBSAG, CU, HIV SCREEN, RONALD SERUM, PAT, METH, HBSAB, RA, HCBIGM #### [facility] , Eosinophils (Bld) [#/Vol] 0.2 10*3/uL Normal 0.0-0.45 [facility] Comment on above: Performed By: #### C BC, CMP, MG, LDH, [id number] #### [facility] [address] [place] [address] [place] #### LEAD,ADULT, KAPPA, SPE, ANCA PROF, SANDRA, CRYOGLOB, HBSAG, CU, HIV SCREEN, RONALD SERUM, PAT, METH, HBSAB, RA, HCBIGM #### [facility] , Eosinophils/100 WBC (Bld) 2.7 % Normal . [facility] Comment on above: Performed By: #### C BC, CMP, MG, LDH, [id number] #### [address] #### LEAD,ADULT, KAPPA, SPE, ANCA PROF, SANDRA, CRYOGLOB, HBSAG, CU, HIV SCREEN, RONALD SERUM, PAT, METH, HBSAB, RA, HCBIGM #### [facility] , Erythrocyte distribution width (RBC) [Ratio] 14.5 % Normal 11.9-15.3 [facility] Comment on above: Performed By: #### C BC, CMP, MG, LDH, [id number] #### [address] #### LEAD,ADULT, KAPPA, SPE, ANCA PROF, SANDRA, CRYOGLOB, HBSAG, CU, HIV SCREEN, RONALD SERUM, PAT, METH, HBSAB, RA, HCBIGM #### [facility] , Hematocrit (Bld) [Volume fraction] 37.8 % Normal 34.0-46.4 [facility] Comment on above: Performed By: #### C BC, CMP, MG, LDH, [id number] #### [place] [address] [place] #### LEAD,ADULT, KAPPA, SPE, ANCA PROF, SANDRA, CRYOGLOB, HBSAG, CU, HIV SCREEN, RONALD SERUM, PAT, METH, HBSAB, RA, HCBIGM #### [facility] , Hemoglobin (Bld) [Mass/Vol] 12.7 g/dL Normal 11.8-15.4 [facility] Comment on above: Performed By: #### C BC, CMP, MG, LDH, [id number] #### [address] #### LEAD,ADULT, KAPPA, SPE, ANCA PROF, SANDRA, CRYOGLOB, HBSAG, CU, HIV SCREEN, RONALD SERUM, PAT, METH, HBSAB, RA, HCBIGM #### [facility] , Lymphocytes (Bld) [#/Vol] 2.1 10*3/uL Normal 1.00-4.8 [facility] Comment on above: Performed By: #### C BC, CMP, MG, LDH, [id number] #### [address] #### LEAD,ADULT, KAPPA, SPE, ANCA PROF, SANDRA, CRYOGLOB, HBSAG, CU, HIV SCREEN, RONALD SERUM, PAT, METH, HBSAB, RA, HCBIGM #### [facility] , Lymphocytes/100 WBC (Bld) 29.7 % Normal . [facility] Comment on above: Performed By: #### C BC, CMP, MG, LDH, [id number] #### [address] #### LEAD,ADULT, KAPPA, SPE, ANCA PROF, SANDRA, CRYOGLOB, HBSAG, CU, HIV SCREEN, RONALD SERUM, PAT, METH, HBSAB, RA, HCBIGM #### [facility] , MCH (RBC) [Entitic mass] 36.3 pg High 24.7-34.3 [facility] Comment on above: Performed By: #### C BC, CMP, MG, LDH, [id number] #### [place] [address] [place] #### LEAD,ADULT, KAPPA, SPE, ANCA PROF, SANDRA, CRYOGLOB, HBSAG, CU, HIV SCREEN, RONALD SERUM, PAT, METH, HBSAB, RA, HCBIGM #### [facility] , MCV (RBC) [Entitic vol] 108.6 fL High 80-100 [facility] Comment on above: Performed By: #### C BC, CMP, MG, LDH, [id number] #### [address] #### LEAD,ADULT, KAPPA, SPE, ANCA PROF, SANDRA, CRYOGLOB, HBSAG, CU, HIV SCREEN, RONALD SERUM, PAT, METH, HBSAB, RA, HCBIGM #### [facility] , Mean Corpuscular HGB Conc 33.5 g/dL Normal 32.0-35.0 [facility] Comment on above: Performed By: #### C BC, CMP, MG, LDH, [id number] #### [address] #### LEAD,ADULT, KAPPA, SPE, ANCA PROF, SANDRA, CRYOGLOB, HBSAG, CU, HIV SCREEN, RONALD SERUM, PAT, METH, HBSAB, RA, HCBIGM #### [facility] , Monocytes (Bld) [#/Vol] 0.5 10*3/uL Normal 0.0-0.8 [facility] Comment on above: Performed By: #### C BC, CMP, MG, LDH, [id number] #### [address] #### LEAD,ADULT, KAPPA, SPE, ANCA PROF, SANDRA, CRYOGLOB, HBSAG, CU, HIV SCREEN, RONALD SERUM, PAT, METH, HBSAB, RA, HCBIGM #### [facility] , Monocytes/100 WBC (Bld) 19.31 % Normal 0.00-20.00 [facility] Comment on above: Performed By: #### C BC, CMP, MG, LDH, [id number] #### [place] [address] [place] #### LEAD,ADULT, KAPPA, SPE, ANCA PROF, SANDRA, CRYOGLOB, HBSAG, CU, HIV SCREEN, RONALD SERUM, PAT, METH, HBSAB, RA, HCBIGM #### [facility] , Monocytes/100 WBC (Bld) 7.6 % Normal . [facility] Comment on above: Performed By: #### C BC, CMP, MG, LDH, [id number] #### [facility] [address] [place] [address] [place] #### LEAD,ADULT, KAPPA, SPE, ANCA PROF, SANDRA, CRYOGLOB, HBSAG, CU, HIV SCREEN, RONALD SERUM, PAT, METH, HBSAB, RA, HCBIGM #### [facility] , Neutrophils (Bld) [#/Vol] 4.2 10*3/uL Normal 1.8-7.7 [facility] Comment on above: Performed By: #### C BC, CMP, MG, LDH, [id number] #### [place] [address] [place] #### LEAD,ADULT, KAPPA, SPE, ANCA PROF, SANDRA, CRYOGLOB, HBSAG, CU, HIV SCREEN, RONALD SERUM, PAT, METH, HBSAB, RA, HCBIGM #### [facility] , Neutrophils/100 WBC (Bld) 58.4 % Normal . [facility] Comment on above: Performed By: #### C BC, CMP, MG, LDH, [id number] #### [place] [address] [place] #### LEAD,ADULT, KAPPA, SPE, ANCA PROF, SANDRA, CRYOGLOB, HBSAG, CU, HIV SCREEN, RONALD SERUM, PAT, METH, HBSAB, RA, HCBIGM #### [facility] , NRBC% 0.1 /100{WBC} Normal 0-0.5 [facility] Comment on above: Performed By: #### C BC, CMP, MG, LDH, [id number] #### [facility] [address] [place] [address] [place] #### LEAD,ADULT, KAPPA, SPE, ANCA PROF, SANDRA, CRYOGLOB, HBSAG, CU, HIV SCREEN, RONALD SERUM, PAT, METH, HBSAB, RA, HCBIGM #### [facility] , Platelet mean volume (Bld) [Entitic vol] 7.9 fL Normal 6.3-10.7 [facility] Comment on above: Performed By: #### C BC, CMP, MG, LDH, [id number] #### [facility] [address] [place] [address] #### LEAD,ADULT, KAPPA, SPE, ANCA PROF, SANDRA, CRYOGLOB, HBSAG, CU, HIV SCREEN, RONALD SERUM, PAT, METH, HBSAB, RA, HCBIGM #### [facility] , Platelets (Bld) [#/Vol] 319 10*3/uL Normal 150-450 [facility] Comment on above: Performed By: #### C BC, CMP, MG, LDH, [id number] #### [address] #### LEAD,ADULT, KAPPA, SPE, ANCA PROF, SANDRA, CRYOGLOB, HBSAG, CU, HIV SCREEN, RONALD SERUM, PAT, METH, HBSAB, RA, HCBIGM #### [facility] , RBC (Bld) [#/Vol] 3.48 10*6/uL Low 3.60-5.00 [facility] Comment on above: Performed By: #### C BC, CMP, MG, LDH, [id number] #### [address] #### LEAD,ADULT, KAPPA, SPE, ANCA PROF, SANDRA, CRYOGLOB, HBSAG, CU, HIV SCREEN, RONALD SERUM, PAT, METH, HBSAB, RA, HCBIGM #### [facility] , WBC (Bld) [#/Vol] 7.2 10*3/uL Normal 3.8-11.6 [facility] Comment on above: Performed By: #### C BC, CMP, MG, LDH, [id number] #### [place] [address] [place] #### LEAD,ADULT, KAPPA, SPE, ANCA PROF, SANDRA, CRYOGLOB, HBSAG, CU, HIV SCREEN, RONALD SERUM, PAT, METH, HBSAB, RA, HCBIGM #### [facility] , Creatinine [Mass/volume] in Serum or PlasmaOrdered By: Bernard Peterson on 03-21-2023 Creatinine [Mass/Vol] 0.49 mg/dL 0.60-1.20 [facility] Dipstick and Microscopicon 0 03-21-2023 Appearance (U) Cloudy Critically abnormal Clear [facility] Comment on above: Order Comment: Name Collection Type:: Clean-Voided Midstream Performed By: #### C BC, CMP, MG, LDH, [id number] #### [facility] [address] [place] [address] #### LEAD,ADULT, KAPPA, SPE, ANCA PROF, SANDRA, CRYOGLOB, HBSAG, CU, HIV SCREEN, RONALD SERUM, PAT, METH, HBSAB, RA, HCBIGM #### [facility] , Bacteria,Urine 4+ High None Seen [facility] Comment on above: Order Comment: Name Collection Type:: Clean-Voided Midstream Performed By: #### C BC, CMP, MG, LDH, [id number] #### [facility] [address] [place] [address] #### LEAD,ADULT, KAPPA, SPE, ANCA PROF, SANDRA, CRYOGLOB, HBSAG, CU, HIV SCREEN, RONALD SERUM, PAT, METH, HBSAB, RA, HCBIGM #### [facility] , Bilirubin,Urine Negative Normal Negative [facility] Comment on above: Order Comment: Name Collection Type:: Clean-Voided Midstream Performed By: #### C BC, CMP, MG, LDH, [id number] #### [facility] [address] [place] [address] [place] #### LEAD,ADULT, KAPPA, SPE, ANCA PROF, SANDRA, CRYOGLOB, HBSAG, CU, HIV SCREEN, RONALD SERUM, PAT, METH, HBSAB, RA, HCBIGM #### [facility] , Color (U) Yellow Normal Yellow [facility] Comment on above: Order Comment: Name Collection Type:: Clean-Voided Midstream Performed By: #### C BC, CMP, MG, LDH, [id number] #### [address] #### LEAD,ADULT, KAPPA, SPE, ANCA PROF, SANDRA, CRYOGLOB, HBSAG, CU, HIV SCREEN, RONALD SERUM, PAT, METH, HBSAB, RA, HCBIGM #### [facility] , Glucose Ql (U) Normal Normal Normal [facility] Comment on above: Order Comment: Name Collection Type:: Clean-Voided Midstream Performed By: #### C BC, CMP, MG, LDH, [id number] #### [address] #### LEAD,ADULT, KAPPA, SPE, ANCA PROF, SANDRA, CRYOGLOB, HBSAG, CU, HIV SCREEN, RONALD SERUM, PAT, METH, HBSAB, RA, HCBIGM #### [facility] , Hyaline Casts,Urine None Seen Normal 0-1 [facility] Comment on above: Order Comment: Name Collection Type:: Clean-Voided Midstream Performed By: #### C BC, CMP, MG, LDH, [id number] #### [address] #### LEAD,ADULT, KAPPA, SPE, ANCA PROF, SANDRA, CRYOGLOB, HBSAG, CU, HIV SCREEN, RONALD SERUM, PAT, METH, HBSAB, RA, HCBIGM #### [facility] , Ketones Ql (U) Trace High Negative [facility] Comment on above: Order Comment: Name Collection Type:: Clean-Voided Midstream Performed By: #### C BC, CMP, MG, LDH, [id number] #### [address] #### LEAD,ADULT, KAPPA, SPE, ANCA PROF, SANDRA, CRYOGLOB, HBSAG, CU, HIV SCREEN, RONALD SERUM, PAT, METH, HBSAB, RA, HCBIGM #### [facility] , Leukocyte esterase Test strip Ql (U) 2+ High Negative [facility] Comment on above: Order Comment: Name Collection Type:: Clean-Voided Midstream Performed By: #### C BC, CMP, MG, LDH, [id number] #### [address] #### LEAD,ADULT, KAPPA, SPE, ANCA PROF, SANDRA, CRYOGLOB, HBSAG, CU, HIV SCREEN, RONALD SERUM, PAT, METH, HBSAB, RA, HCBIGM #### [facility] , Nitrite,Urine Positive High Negative [facility] Comment on above: Order Comment: Name Collection Type:: Clean-Voided Midstream Performed By: #### C BC, CMP, MG, LDH, [id number] #### [address] #### LEAD,ADULT, KAPPA, SPE, ANCA PROF, SANDRA, CRYOGLOB, HBSAG, CU, HIV SCREEN, RONALD SERUM, PAT, METH, HBSAB, RA, HCBIGM #### [facility] , Occult Blood,Urine Negative Normal Negative [facility] Comment on above: Order Comment: Name Collection Type:: Clean-Voided Midstream Result Comment: PERF ORMED BY: [place] [id number] PATHOLOGIST ANALYSIS MANAGER RUIZ CLIFTON M.D. Performed By: #### C BC, CMP, MG, LDH, [id number] #### [address] #### LEAD,ADULT, KAPPA, SPE, ANCA PROF, SANDRA, CRYOGLOB, HBSAG, CU, HIV SCREEN, RONALD SERUM, PAT, METH, HBSAB, RA, HCBIGM #### [facility] , Other Casts,Urine None Seen Normal None Seen [facility] Comment on above: Order Comment: Name Collection Type:: Clean-Voided Midstream Result Comment: PERF ORMED BY: [place] [id number] PATHOLOGIST ANALYSIS MANAGER RUIZ CLIFTON M.D. Performed By: #### C BC, CMP, MG, LDH, [id number] #### [address] #### LEAD,ADULT, KAPPA, SPE, ANCA PROF, SANDRA, CRYOGLOB, HBSAG, CU, HIV SCREEN, RONALD SERUM, PAT, METH, HBSAB, RA, HCBIGM #### [facility] , pH (U) 5.0 [pH] Normal 5.0-9.0 [facility] Comment on above: Order Comment: Name Collection Type:: Clean-Voided Midstream Performed By: #### C BC, CMP, MG, LDH, [id number] #### [address] #### LEAD,ADULT, KAPPA, SPE, ANCA PROF, SANDRA, CRYOGLOB, HBSAG, CU, HIV SCREEN, RONALD SERUM, PAT, METH, HBSAB, RA, HCBIGM #### [facility] , Protein,Urine Trace High Negative [facility] Comment on above: Order Comment: Name Collection Type:: Clean-Voided Midstream Performed By: #### C BC, CMP, MG, LDH, [id number] #### [address] #### LEAD,ADULT, KAPPA, SPE, ANCA PROF, SANDRA, CRYOGLOB, HBSAG, CU, HIV SCREEN, RONALD SERUM, PAT, METH, HBSAB, RA, HCBIGM #### [facility] , RBC LM.HPF (Urine sed) [#/Area] 0 /[HPF] Normal 0-4 [facility] Comment on above: Order Comment: Name Collection Type:: Clean-Voided Midstream Performed By: #### C BC, CMP, MG, LDH, [id number] #### [place] [address] [place] #### LEAD,ADULT, KAPPA, SPE, ANCA PROF, SANDRA, CRYOGLOB, HBSAG, CU, HIV SCREEN, RONALD SERUM, PAT, METH, HBSAB, RA, HCBIGM #### [facility] , Specificy Barney,Urine 1.019 Normal 1.001-1.030 [facility] Comment on above: Order Comment: Name Collection Type:: Clean-Voided Midstream Performed By: #### C BC, CMP, MG, LDH, [id number] #### [facility] [address] [place] [address] #### LEAD,ADULT, KAPPA, SPE, ANCA PROF, SANDRA, CRYOGLOB, HBSAG, CU, HIV SCREEN, RONALD SERUM, PAT, METH, HBSAB, RA, HCBIGM #### [facility] , Squamous Epithelial Cell,Urine 10-19 High 0-2 [facility] Comment on above: Order Comment: Name Collection Type:: Clean-Voided Midstream Performed By: #### C BC, CMP, MG, LDH, [id number] #### [address] #### LEAD,ADULT, KAPPA, SPE, ANCA PROF, SANDRA, CRYOGLOB, HBSAG, CU, HIV SCREEN, RONALD SERUM, PAT, METH, HBSAB, RA, HCBIGM #### [facility] , Urobilinogen,Urine Normal Normal Normal [facility] Comment on above: Order Comment: Name Collection Type:: Clean-Voided Midstream Performed By: #### C BC, CMP, MG, LDH, [id number] #### [facility] [address] [place] [address] #### LEAD,ADULT, KAPPA, SPE, ANCA PROF, SANDRA, CRYOGLOB, HBSAG, CU, HIV SCREEN, RONALD SERUM, PAT, METH, HBSAB, RA, HCBIGM #### [facility] , WBC,Urine 20-49 High 0-4 [facility] Comment on above: Order Comment: Name Collection Type:: Clean-Voided Midstream Performed By: #### C BC, CMP, MG, LDH, [id number] #### [facility] [address] [place] [address] [place] #### LEAD,ADULT, KAPPA, SPE, ANCA PROF, SANDRA, CRYOGLOB, HBSAG, CU, HIV SCREEN, RONALD SERUM, PAT, METH, HBSAB, RA, HCBIGM #### [facility] , ECG 12 lead ECGon 03-21-2023 ECG 12 lead ECG [facility] [address] [place] [address] Electrocardiograph Report Signed Patient: Rica Stout MR#: [id number] : 1995 Acct:[id number] Age/Sex: 27 / F ADM Date: 03/22/23 Loc: Room: [address] [place] [address] Type: ADM IN Attending Dr: Parveen Keller MD Ordering Provider: Bernard Peterson DO Date of Service: 03/21/23 ECG/ECG 12 lead ECG: Neuro Symptoms/Deficit Copies to: Test Reason : Blood Pressure : / mmHG Vent. Rate : 106 BPM Atrial Rate : 106 BPM P-R Int : 140 ms QRS Dur : 072 ms QT Int : 346 ms P-R-T Axes : 050 085 045 degrees QTc Int : 459 ms Sinus tachycardia Confirmed by Bernard Peterson DO ([id number]) on 03/22/2023 4:03:33 AM Referred By: Electronically Signed By:Bernard Peterson DO Transcribed By: MUS Signed By Bernard Peterson DO [id number] [facility] Eosinophils Auto (Bld) [#/Vo l]Ordered By: Bernard Peterson on 03-21-2023 Eosinophils (Bld) [#/Vol] 0.2 10*3/uL 0.0-0.45 [facility] Eosinophils/100 WBC Auto (Bl d)Ordered By: Bernard Peterson on 03-21-2023 Eosinophils/100 WBC (Bld) 2.7 % . [facility] Erythrocyte Sedimentation Ra mert 03-21-2023 ESR (Bld) [Velocity] 21 mm/h High 0-19 [facility] Comment on above: Result Comment: PERF ORMED BY: [facility] [address] [place] [address] PATHOLOGIST ANALYSIS MANAGER RUIZ CLIFTON M.D. Performed By: #### C BC, CMP, MG, LDH, [id number] #### [place] [address] [place] #### LEAD,ADULT, KAPPA, SPE, ANCA PROF, SANDRA, CRYOGLOB, HBSAG, CU, HIV SCREEN, RONALD SERUM, PAT, METH, HBSAB, RA, HCBIGM #### [facility] , Erythrocyte distribution wid th Auto (RBC) [Ratio]Ordered By: Bernard Peterson on 03-21-2023 Erythrocyte distribution width (RBC) [Ratio] 14.5 % 11.9-15.3 [facility] Erythrocyte sedimentation ra te by Photometric methodOrdered By: Bernard Peterson on 03-21-2023 ESR Photometric method (Bld) [Velocity] 21 mm/hr 0-19 [facility] Globulin Calc (S) [Mass/Vol] Ordered By: Bernard Peterson on 03-21-2023 Globulin (S) [Mass/Vol] 3.3 g/dL F [facility] Glucose [Mass/volume] in Cer ebral spinal fluidOrdered By: Bernard Peterson on 03-21-2023 Glucose (CSF) [Mass/Vol] 84 mg/dL 40-70 [facility] Glucose [Mass/volume] in Ser um or PlasmaOrdered By: Bernard Peterson on 03-21-2023 Glucose [Mass/Vol] 130 mg/dL 70-100 [facility] Comment on above: ADA recommended refe rence rangeRandom Glucose Reference Range is dependent on time and content of last meal. Glucose of more than 200 mg/dL in a nonstressed, ambulatory subject supports the diagnosis of Diabetes Mellitus. Gram stain for investigation of transfusion reactionOrdered By: Bernard Peterson on 03-21-2023 Microscopic observation Gram stain Nom (Unsp spec) [facility] HCG ( test) IA.rapi d Ql (U)Ordered By: Bernard Peterosn on 03-21-2023 HCG ( test) Ql (U) Negative [facility] HCG,Urineon 03-21-2023 Beta HCG ( test) Ql (U) Negative Normal [facility] Comment on above: Result Comment: PERF ORMED BY: [place] [id number] PATHOLOGIST ANALYSIS MANAGER RUIZ CLIFTON M.D. Performed By: #### C BC, CMP, MG, LDH, [id number] #### [address] #### LEAD,ADULT, KAPPA, SPE, ANCA PROF, SANDRA, CRYOGLOB, HBSAG, CU, HIV SCREEN, RONALD SERUM, PAT, METH, HBSAB, RA, HCBIGM #### [facility] , Hematocrit Auto (Bld) [Volum e fraction]Ordered By: Bernard Peterson on 03-21-2023 Hematocrit (Bld) [Volume fraction] 37.8 % 34.0-46.4 [facility] Hemoglobin [Mass/volume] in BloodOrdered By: Bernard Peterson on 03-21-2023 Hemoglobin (Bld) [Mass/Vol] 12.7 g/dL 11.8-15.4 [facility] Hepatic Panelon 03-21-2023 Albumin [Mass/Vol] 3.5 g/dL Normal 3.5-5.7 [facility] Comment on above: Performed By: #### C BC, CMP, MG, LDH, [id number] #### [address] #### LEAD,ADULT, KAPPA, SPE, ANCA PROF, SANDRA, CRYOGLOB, HBSAG, CU, HIV SCREEN, RONALD SERUM, PAT, METH, HBSAB, RA, HCBIGM #### [facility] , Albumin/Globulin [Mass ratio] 1.1 {ratio} Normal [facility] Comment on above: Performed By: #### C BC, CMP, MG, LDH, [id number] #### [facility] [address] #### LEAD,ADULT, KAPPA, SPE, ANCA PROF, SANDRA, CRYOGLOB, HBSAG, CU, HIV SCREEN, RONALD SERUM, PAT, METH, HBSAB, RA, HCBIGM #### [facility] , ALP [Catalytic activity/Vol] 112 U/L High 34-104 [facility] Comment on above: Performed By: #### C BC, CMP, MG, LDH, [id number] #### [address] #### LEAD,ADULT, KAPPA, SPE, ANCA PROF, SANDRA, CRYOGLOB, HBSAG, CU, HIV SCREEN, RONALD SERUM, PAT, METH, HBSAB, RA, HCBIGM #### [facility] , ALT [Catalytic activity/Vol] 37 U/L Normal 7-52 [facility] Comment on above: Performed By: #### C BC, CMP, MG, LDH, [id number] #### [address] #### LEAD,ADULT, KAPPA, SPE, ANCA PROF, SANDRA, CRYOGLOB, HBSAG, CU, HIV SCREEN, RONALD SERUM, PAT, METH, HBSAB, RA, HCBIGM #### [facility] , AST [Catalytic activity/Vol] 79 U/L High 13-39 [facility] Comment on above: Performed By: #### C BC, CMP, MG, LDH, [id number] #### [place] [address] [place] #### LEAD,ADULT, KAPPA, SPE, ANCA PROF, SANDRA, CRYOGLOB, HBSAG, CU, HIV SCREEN, RONALD SERUM, PAT, METH, HBSAB, RA, HCBIGM #### [facility] , Bilirubin [Mass/Vol] 0.5 mg/dL Normal 0.3-1.0 [facility] Comment on above: Performed By: #### C BC, CMP, MG, LDH, [id number] #### [address] #### LEAD,ADULT, KAPPA, SPE, ANCA PROF, SANDRA, CRYOGLOB, HBSAG, CU, HIV SCREEN, RONALD SERUM, PAT, METH, HBSAB, RA, HCBIGM #### [facility] , Bilirubin,Indirect 0.4 mg/dL Normal [facility] Comment on above: Performed By: #### C BC, CMP, MG, LDH, [id number] #### [address] #### LEAD,ADULT, KAPPA, SPE, ANCA PROF, SANDRA, CRYOGLOB, HBSAG, CU, HIV SCREEN, RONALD SERUM, PAT, METH, HBSAB, RA, HCBIGM #### [facility] , Bilirubin.indirect [Mass/Vol] 0.10 mg/dL Normal 0.03-0.18 [facility] Comment on above: Performed By: #### C BC, CMP, MG, LDH, [id number] #### [address] #### LEAD,ADULT, KAPPA, SPE, ANCA PROF, SANDRA, CRYOGLOB, HBSAG, CU, HIV SCREEN, RONALD SERUM, PAT, METH, HBSAB, RA, HCBIGM #### [facility] , Globulin (S) [Mass/Vol] 3.3 g/dL Normal [facility] Comment on above: Performed By: #### C BC, CMP, MG, LDH, [id number] #### [address] #### LEAD,ADULT, KAPPA, SPE, ANCA PROF, SANDRA, CRYOGLOB, HBSAG, CU, HIV SCREEN, RONALD SERUM, PAT, METH, HBSAB, RA, HCBIGM #### [facility] , Protein [Mass/Vol] 6.8 g/dL Normal 6.4-8.9 [facility] Comment on above: Performed By: #### C BC, CMP, MG, LDH, [id number] #### [address] #### LEAD,ADULT, KAPPA, SPE, ANCA PROF, SANDRA, CRYOGLOB, HBSAG, CU, HIV SCREEN, RONALD SERUM, PAT, METH, HBSAB, RA, HCBIGM #### [facility] , INR in Platelet poor plasma by Coagulation assayOrdered By: Bernard Peterson on 03-21-2023 INR Coag (PPP) [Relative time] 1.1 {INR} [facility] Comment on above: INR Therapeutic Rang e A) Pre- and Peroperative OAT started two weeks before surgery. NOT HIP SURGERY: 1.5 - 2.5 HIP SURGERY: 2 - 3B) Primary and secondary prevention of venous THROMBOSIS: 2 - 3C) Active venous thrombosis, pulmonary embolismand prevention of recurrent venous thrombosis: 2 - 3D) Prevention of arterial thromboembolismincluding patients with mechanical heart valves: 3 - 4.5 Ketones Auto test strip (U) [Mass/Vol]Ordered By: PROVIDER TEMP on 03-21-2023 Ketones (U) [Mass/Vol] Trace Negative [facility] - CoagulationOrde red By: Bernard Peterson on 03-21-2023 PT Coag (PPP) [Time] 12.4 s 9.0-12.9 [facility] Lactate [Moles/volume] in Se rum or PlasmaOrdered By: Bernard Peterson on 03-21-2023 Lactate [Moles/Vol] 3.9 mmol/L 0.5-2.2 [facility] Comment on above: Critical Result : Ca lled to and read back by: DIPTI ANN at: 03/21/2023 22:31:27 by:LFM Lactic Acidon 03-21-2023 Lactate [Moles/Vol] 3.9 mmol/L Off scale high 0.5-2.2 [facility] Comment on above: Result Comment: Crit ical Result : Called to and read back by: DIPTI ANN at: 03/21/2023 22:31:27 by:LFM PERFORMED BY: [place] [id number] PATHOLOGIST ANALYSIS MANAGER RUIZ CLIFTON M.D. Performed By: #### C BC, CMP, MG, LDH, [id number] #### [facility] [address] #### LEAD,ADULT, KAPPA, SPE, ANCA PROF, SANDRA, CRYOGLOB, HBSAG, CU, HIV SCREEN, RONALD SERUM, PAT, METH, HBSAB, RA, HCBIGM #### [facility] , Leukocytes [#/volume] correc antoine for nucleated erythrocytes in Blood by Automated counOrdered By: Bernard Peterson on 03-21-2023 WBC corrected for nucl RBC Auto (Bld) [#/Vol] 7.2 10*3/uL 3.8-11.6 [facility] Lymphocytes Auto (Bld) [#/Vo l]Ordered By: Bernard Peterson on 03-21-2023 Lymphocytes (Bld) [#/Vol] 2.1 10*3/uL 1.00-4.8 [facility] Lymphocytes/100 WBC Auto (Bl d)Ordered By: Bernard Peterson on 03-21-2023 Lymphocytes/100 WBC (Bld) 29.7 % . [facility] MCH Auto (RBC) [Entitic mass ]Ordered By: Bernard Peterson on 03-21-2023 MCH (RBC) [Entitic mass] 36.3 pg 24.7-34.3 [facility] MCHC Auto (RBC) [Mass/Vol]Or dered By: Bernard Peterson on 03-21-2023 MCHC (RBC) [Mass/Vol] 33.5 g/dL 32.0-35.0 [facility] MCV Auto (RBC) [Entitic vol] Ordered By: Bernard Peterson on 03-21-2023 MCV (RBC) [Entitic vol] 108.6 fL 80-100 [facility] Magnesiumon 03-21-2023 Magnesium [Mass/Vol] 1.4 mg/dL Low 1.9-2.7 [facility] Comment on above: Performed By: #### C BC, CMP, MG, LDH, [id number] #### [facility] [address] #### LEAD,ADULT, KAPPA, SPE, ANCA PROF, SANDRA, CRYOGLOB, HBSAG, CU, HIV SCREEN, RONALD SERUM, PAT, METH, HBSAB, RA, HCBIGM #### [facility] , Magnesium [Mass/volume] in S caitlyn or PlasmaOrdered By: Bernard Peterson on 03-21-2023 Magnesium [Mass/Vol] 1.4 mg/dL 1.9-2.7 [facility] Manual cerebrospinal fluid e rythrocytes count (number/volume)Ordered By: Bernard Peterson on 03-21-2023 RBC Manual cnt (CSF) [#/Vol] 0 /uL [facility] Comment on above: The reference interv al and other method performance specifications have not been established for this body fluid. The test result must be integrated into the clinical context for interpretation. Meningitis+Encephalitis path ogens DNA and RNA panel - Cerebral spinal fluid by OKSANA wiOrdered By: Bernard Peterson on 03-21-2023 Meningitis+Encephalitis pathogens DNA and RNA panel OKSANA+non-probe (CSF) [facility] Monocyte distribution width [Entitic volume] in Blood by AutomatedOrdered By: Bernard Peterson on 03-21-2023 Monocyte distribution width Auto (Bld) [Entitic vol] 19.31 % 0.00-20.00 [facility] Monocytes Auto (Bld) [#/Vol] Ordered By: Bernard Peterson on 03-21-2023 Monocytes (Bld) [#/Vol] 0.5 10*3/uL 0.0-0.8 [facility] Monocytes/100 WBC Auto (Bld) Ordered By: Bernard Peterson on 03-21-2023 Monocytes/100 WBC (Bld) 7.6 % . [facility] Neutrophils Auto (Bld) [#/Vo l]Ordered By: Bernard Peterson on 03-21-2023 Neutrophils (Bld) [#/Vol] 4.2 10*3/uL 1.8-7.7 [facility] Neutrophils/100 WBC Auto (Bl d)Ordered By: Bernard Peterson on 03-21-2023 Neutrophils/100 WBC (Bld) 58.4 % . [facility] Nitrite Test strip Ql (U)Ord ered By: PROVIDER TEMP on 03-21-2023 Nitrite Ql (U) Positive Negative [facility] No Panel InformationOrdered By: Bernard Peterson on 03-21-[address] Clear Clear [facility] CSF Differential Comment See comment [facility] Comment on above: NO NUCLEATED CELLS S EEN. DIFFERENTIAL NOT PREFORMED CSF Eosinophils N/A [facility] CSF Lymphocytes N/A [facility] CSF Monocytes N/A [facility] CSF Neutrophils [facility] Comment on above: The reference interv al and other method performance specifications have not been established for this body fluid. The test result must be integrated into the clinical context for interpretation. CSF Tube Number Tube number: 3 [facility] Estimated GFR (CKD-EPI) > 60.0 mL/Min [facility] Creatinine Clearance (Chem 148.92 [facility] Nucleated cells [#/volume] i n Cerebral spinal fluid by Manual countOrdered By: Bernard Peterson on 03-21-2023 Nucleated cells Manual cnt (CSF) [#/Vol] 0 10*3/uL 0-5 [facility] Nucleated erythrocytes [Pres ence] in Blood by Automated countOrdered By: Bernard Peterson on 03-21-2023 Nucleated RBC Auto Ql (Bld) 0.1 /100{WBC} 0-0.5 [facility] Partial Thromboplastin Timeo n 03-21-2023 aPTT Coag (Bld) [Time] 30.4 s Normal 25.1-36.5 [facility] Comment on above: Result Comment: PERF ORMED BY: [place] [id number] PATHOLOGIST ANALYSIS MANAGER RUIZ CLIFTON M.D. Performed By: #### C BC, CMP, MG, LDH, [id number] #### [facility] [address] [place] [address] [place] #### LEAD,ADULT, KAPPA, SPE, ANCA PROF, SANDRA, CRYOGLOB, HBSAG, CU, HIV SCREEN, RONALD SERUM, PAT, METH, HBSAB, RA, HCBIGM #### [facility] , Phosphate [Mass/volume] in S caitlyn or PlasmaOrdered By: Bernard Peterson on 03-21-2023 Phosphate [Mass/Vol] 2.3 mg/dL 3.7-7.2 [facility] Phosphoruson 03-21-2023 Phosphate [Mass/Vol] 2.3 mg/dL Low 3.7-7.2 [facility] Comment on above: Performed By: #### C BC, CMP, MG, LDH, [id number] #### [facility] [address] [place] [address] #### LEAD,ADULT, KAPPA, SPE, ANCA PROF, SANDRA, CRYOGLOB, HBSAG, CU, HIV SCREEN, RONALD SERUM, PAT, METH, HBSAB, RA, HCBIGM #### [facility] , Platelet mean volume Auto (B ld) [Entitic vol]Ordered By: Bernard Peterson on 03-21-2023 Platelet mean volume (Bld) [Entitic vol] 7.9 fL 6.3-10.7 [facility] Platelets Auto (Bld) [#/Vol] Ordered By: Bernard Peterson on 03-21-2023 Platelets (Bld) [#/Vol] 319 10*3/uL 150-450 [facility] Potassium [Moles/volume] in Serum or PlasmaOrdered By: Bernard Peterson on 03-21-2023 Potassium [Moles/Vol] 3.2 mmol/L 3.5-5.1 [facility] Protein Auto test strip (U) [Mass/Vol]Ordered By: PROVIDER TEMP on 03-21-2023 Protein (U) [Mass/Vol] Trace mg/dL Negative F [facility] Protein [Mass/volume] in Cer ebral spinal fluidOrdered By: Bernard Peterson on 03-21-2023 Protein (CSF) [Mass/Vol] 39 mg/dL 15-45 [facility] Protein [Mass/volume] in Ser um or PlasmaOrdered By: Bernard Peterson on 03-21-2023 Protein [Mass/Vol] 6.8 g/dL 6.4-8.9 [facility] Protein fractions.oligoclona l bands.intrathecal [Presence] in Serum and CSFOrdered By: Bernard Peterson on 03-21-2023 Protein fractions.oligoclonal bands.intrathecal Ql (S+CSF) See comment . [facility] Comment on above: Zero (0) oligoclonal bands were observed in the CSF.However two (2) paired bands were observed in both the CSFand serum. Paired bands suggest an immune response to aninflammatory process outside the INSPECTOR OPEN DIE and are unlikely torepresent a INSPECTOR OPEN DIE demyelinating disease.Interpretation: Criteria for Positivity: Four (4) or more oligoclonalbands observed only in the CSF have been shown to be mostconsistent with MS using our method. [Claudia , Nicholas Hayward, and Bolivar JA: Cerebrospinal FluidOligoclonal Bands in the Diagnosis of Multiple Sclerosis.Am J Clin Pathol 120(5):672-675, 2003]. Oligoclonal bands that are present only in the CSF havebeen associated with a variety of inflammatory braindiseases such as multiple sclerosis (MS), subacuteencephalitis, neurosyphilis, etc. Increased IgG in the CSFis not specific for MS, but is an indication of chronicneural inflammation. Clinical correlation indicated. Approximately 2-3% of clinically confirmed MS patientsshow little or no evidence of oligoclonal bands in theCSF; however oligoclonal bands may develop as the diseaseprogresses. Oligoclonal Banding testing performed using IsoelectricFocusing (IEF) and immunoblotting methodology.Performed at: [address] [id number] Director: Breezy Jones PhD, Phone: [phone] Prothrombin Time INRon 03-21 INR Coag (PPP) [Relative time] 1.1 {INR} Normal [facility] Comment on above: Result Comment: INR Therapeutic Range A) Pre- and Peroperative OAT started two weeks before surgery. NOT HIP SURGERY: 1.5 - 2.5 HIP SURGERY: 2 - 3 B) Primary and secondary prevention of venous THROMBOSIS: 2 - 3 C) Active venous thrombosis, pulmonary embolism and prevention of recurrent venous thrombosis: 2 - 3 D) Prevention of arterial thromboembolism including patients with mechanical heart valves: 3 - 4.5 Performed By: #### C BC, CMP, MG, LDH, [id number] #### [facility] [address] [place] [address] #### LEAD,ADULT, KAPPA, SPE, ANCA PROF, SANDRA, CRYOGLOB, HBSAG, CU, HIV SCREEN, RONALD SERUM, PAT, METH, HBSAB, RA, HCBIGM #### [facility] , PT Coag (PPP) [Time] 12.4 s Normal 9.0-12.9 [facility] Comment on above: Performed By: #### C BC, CMP, MG, LDH, [id number] #### [place] [address] [place] #### LEAD,ADULT, KAPPA, SPE, ANCA PROF, SANDRA, CRYOGLOB, HBSAG, CU, HIV SCREEN, RONALD SERUM, PAT, METH, HBSAB, RA, HCBIGM #### [facility] , RBC Auto (Bld) [#/Vol]Ordere d By: Bernard Peterson on 03-21-2023 RBC (Bld) [#/Vol] 3.48 10*6/uL 3.60-5.00 [facility] Serum or plasma albumin/glob ulin mass ratioOrdered By: Bernard Peterson on 03-21-2023 Albumin/Globulin [Mass ratio] 1.1 {ratio} [facility] Serum or plasma anion gap de terminationOrdered By: Bernard Peterson on 03-21-2023 Anion gap [Moles/Vol] 16.2 mmol/L 6.0-15.0 [facility] Serum or plasma non-glucuron idated bilirubin measurement (mass/volume)Ordered By: Bernard Peterson on 03-21-2023 Bilirubin.indirect [Mass/Vol] 0.4 mg/dL [facility] Sodium [Moles/volume] in Ser um or PlasmaOrdered By: Bernard Peterson on 03-21-2023 Sodium [Moles/Vol] 141 mmol/L 136-145 [facility] Specific gravity Auto test s trip (U) [Rel density]Ordered By: PROVIDER TEMP on 03-21-2023 Specific gravity (U) [Rel density] 1.019 1.001-1.030 [facility] Squamous epithelial cells de tection in urine sediment by light microscopyOrdered By: PROVIDER TEMP on 03-21-2023 Epithelial cells.squamous LM Ql (Urine sed) 10-19 [HPF] 0-2 [facility] Urea nitrogen [Mass/volume] in Serum or PlasmaOrdered By: Bernard Peterson on 03-21-2023 Urea nitrogen [Mass/Vol] 3 mg/dL 7-25 [facility] Urine Cultureon 03-21-2023 Bacteria identified Cx Nom (U) ORGANISM: Klebsiella pneumoniae (O:KLEPNE) [place] Count >100,000 Aerobic JOSEPH Charge ([id number]) - SUSCEPTIBILITY ORGANISM: O:KLEPNE ANTIBIOTIC INTERPRETATION JOSEPH Amikacin S <16 Amoxacillin/K Clavulanate S <8 Ampicillin/Sulbactam S <4 Aztreonam S <4 Cefazolin S <2 Cefepime S <2 Ceftazidime S <1 Ceftazidime/Avibactam S <4 Ceftolozane/Tazobactam S <2 Ceftriaxone S <1 Cefuroxime S <4 Ciprofloxacin S <0.25 Ertapenem S <0.5 Gentamicin S <2 Levofloxacin S <0.5 Meropenem S <1 Meropenem/Vaborbactam S <2 Nitrofurantoin S <32 Piperacillin/Tazobactam S <8 Tetracycline S <4 Tigecycline S <2 Tobramycin S <2 Trimethoprim/Sulfamethox azole S <0.5 S = SUSCEPTIBLE I = INTERMEDIATE R = RESISTANT BLANK = DATA NOT AVAILABLE, OR DRUG NOT ADVISABLE OR TESTED R* = RESISTANCE DUE TO EXTENDED SPECTRUM BETA-LACTAMASES ESBL = EXTENDED SPECTRUM BETA-LACTAMASE TFG = THYMIDINE-DEPENDENT STRAIN SUJEY = BETA-LACTAMASE POSITIVE IB = INDUCIBLE BETA-LACTAMASE. APPEARS IN PLACE OF 'S' WITH SPECIES KNOWN TO POSSESS INDUCIBLE BETA-LACTAMASES. POTENTIALLY THEY MAY BECOME RESISTANT TO ALL B-LACTAM DRUGS. PERFORMED BY: [place] [id number] PATHOLOGIST ANALYSIS MANAGER RUIZ CLIFTON M.D. Normal [facility] Comment on above: Performed By: #### C BC, CMP, MG, LDH, [id number] #### [place] [address] [place] #### LEAD,ADULT, KAPPA, SPE, ANCA PROF, SANDRA, CRYOGLOB, HBSAG, CU, HIV SCREEN, RONALD SERUM, PAT, METH, HBSAB, RA, HCBIGM #### [facility] , Urine bacteria detection by automated methodOrdered By: PROVIDER TEM on 03-21-2023 Bacteria Auto Ql (U) 4+ None Seen [facility] Urine clarity by refractomet ry automatedOrdered By: PROVIDER TEMP on 03-21-2023 Clarity Refractometry automated (U) Cloudy Clear [facility] Urine culture routineOrdered By: PROVIDER TEMP on 03-21-2023 Bacteria identified Cx Nom (U) Klebsiella pneumoniae [facility] Bacteria identified Cx Nom (U) Klebsiella pneumoniae [facility] Urine glucose measurement by automated test strip (mass/volume)Ordered By: PROVIDER TEM on 03-21-2023 Glucose Auto test strip (U) [Mass/Vol] Normal mg/dL Normal [facility] Urine hemoglobin detection b y automated test stripOrdered By: PROVIDER TEMP on 03-21-2023 Hemoglobin Auto test strip Ql (U) Negative Negative [facility] Urine leukocyte esterase det ection by automated test stripOrdered By: PROVIDER TEMP on 03-21-2023 Leukocyte esterase Auto test strip Ql (U) 2+ Negative [facility] Urobilinogen Auto test strip (U) [Mass/Vol]Ordered By: PROVIDER TEM on 03-21-2023 Urobilinogen (U) [Mass/Vol] Normal mg/dL Normal [facility] WBC Auto (Bld) [#/Vol]Ordere d By: Bernard Peterson on 03-21-2023 WBC (Bld) [#/Vol] 7.2 10*3/uL 3.8-11.6 [facility] pH Auto test strip (U)Ordere d By: PROVIDER TEMP on 03-21-2023 pH (U) 5.0 [pH] 5.0-9.0 [facility] ED Note-Physicianon 03-13-20 ED Note-Physician [id number]: 127 [facility] Auth for Release of Medical Recordson 03-12-2023 Auth for Release of Medical Records [id number]: 127 [facility] ED NOTEon 01-29-2023 ED NOTE HNO ID: [id number] Author: NATHEN García Service: ? Author Type: Clinical Set Rider Type: ED Notes Filed: 01/29/2023 12:55 AM Note Text: Where is my mom? Can you take my IV out? You can't keep my phone from me PT restless, safety maintained. [facility] ED NOTE HNO ID: [id number] Author: Arsh Ivy DO Service: Emergency Medicine Author Type: Physician Type: ED Notes Filed: 01/31/2023 5:08 PM Note Text: Callback completed. No questions or concerns from the ED visit from yesterday. States that she feels fine and she made it home okay. Informed if there is any issues or concerns she is always welcome to return. [facility] ED NOTE HNO ID: [id number] Author: Ghulam Villalobos RN Service: ? Author Type: Registered Nurse Type: ED Notes Filed: 01/29/2023 6:52 AM Note Text: Pt received written and verbal discharge instructions. Pt verbalizes understanding. All belongings with patient. Pt departed ED. [facility] ED NOTE HNO ID: [id number] Author: NATHEN García Service: ? Author Type: Clinical Set Rider Type: ED Notes Filed: 01/29/2023 6:30 AM Note Text: PT is getting DC'd [facility] ED NOTE HNO ID: [id number] Author: Ghulam Villalobos RN Service: ? Author Type: Registered Nurse Type: ED Notes Filed: 01/29/2023 6:01 AM Note Text: Pt resting comfortably in bed. No acute distress noted. Safety maintained. [facility] ED NOTE HNO ID: [id number] Author: NATHEN García Service: ? Author Type: Clinical Set Rider Type: ED Notes Filed: 01/29/2023 5:32 AM Note Text: PT resting in bed with no complaints at this time. Comfort measures offered. No acute distress noted, safety maintained. [facility] ED NOTE HNO ID: [id number] Author: Ghulam Villalobos RN Service: ? Author Type: Registered Nurse Type: ED Notes Filed: 01/29/2023 5:13 AM Note Text: Pt resting comfortably in bed. No acute distress noted. Safety maintained. [facility] ED NOTE HNO ID: [id number] Author: Ghulam Villalobos RN Service: ? Author Type: Registered Nurse Type: ED Notes Filed: 01/29/2023 4:31 AM Note Text: Pt resting comfortably in bed. No acute distress noted. Safety maintained. [facility] ED NOTE HNO ID: [id number] Author: Cris Tapia, NATHEN Service: ? Author Type: Clinical Set Rider Type: ED Notes Filed: 01/29/2023 4:03 AM Note Text: PT is resting in bed with no complaints at this time. Lights are off and bed is lowered in lowest position. Equal chest rise and fall is observed. No acute distress is noted, safety maintained. [facility] ED NOTE HNO ID: [id number] Author: Cris Tapia, CT Service: ? Author Type: Clinical Set Rider Type: ED Notes Filed: 01/29/2023 4:03 AM Note Text: PT is resting in bed with no complaints at this time. Lights are off and bed is lowered in lowest position. Equal chest rise and fall is observed. No acute distress is noted, safety maintained. [facility] ED NOTE HNO ID: [id number] Author: Ghulam Villalobos RN Service: ? Author Type: Registered Nurse Type: ED Notes Filed: 01/29/2023 3:37 AM Note Text: Pt resting comfortably in bed. No acute distress noted. Safety maintained. [facility] ED NOTE HNO ID: [id number] Author: hGulam Villalobos RN Service: ? Author Type: Registered Nurse Type: ED Notes Filed: 01/29/2023 3:02 AM Note Text: Pt resting comfortably in bed. No acute distress noted. Safety maintained. [facility] ED NOTE HNO ID: [id number] Author: NATHEN García Service: ? Author Type: Clinical Set Rider Type: ED Notes Filed: 01/29/2023 2:31 AM Note Text: PT is resting in bed with no complaints at this time. Lights are off and bed is lowered in lowest position. Equal chest rise and fall is observed. No acute distress is noted, safety maintained. [facility] ED NOTE HNO ID: [id number] Author: Ghulam Villalobos RN Service: ? Author Type: Registered Nurse Type: ED Notes Filed: 01/29/2023 2:04 AM Note Text: Pt resting comfortably in bed. No acute distress noted. Safety maintained. [facility] ED NOTE HNO ID: [id number] Author: Ghulam Villalobos RN Service: ? Author Type: Registered Nurse Type: ED Notes Filed: 01/29/2023 1:34 AM Note Text: Pt resting comfortably in bed. No acute distress noted. Safety maintained. [facility] ED NOTE HNO ID: [id number] Author: Ghulam Villalobos RN Service: ? Author Type: Registered Nurse Type: ED Notes Filed: 01/29/2023 1:04 AM Note Text: Pt resting comfortably in bed. No acute distress noted. Safety maintained. [facility] ED NOTE HNO ID: [id number] Author: NATHEN García Service: ? Author Type: Clinical Set Rider Type: ED Notes Filed: 01/29/2023 12:56 AM Note Text: PT resting in bed with no complaints at this time. Comfort measures offered. No acute distress noted, safety maintained. [facility] ED NOTE HNO ID: [id number] Author: NATHEN García Service: ? Author Type: Clinical Set Rider Type: ED Notes Filed: 01/29/2023 12:53 AM Note Text: PT resting in bed with no complaints at this time. Comfort measures offered. No acute distress noted, safety maintained. [facility] ED NOTE HNO ID: [id number] Author: Cris Tapia, CT Service: ? Author Type: Clinical Set Rider Type: ED Notes Filed: 01/29/2023 12:52 AM Note Text: PT restless. Safety maintained. [facility] ED NOTE HNO ID: [id number] Author: Cris Tapia, CT Service: ? Author Type: Clinical Set Rider Type: ED Notes Filed: 01/29/2023 12:18 AM Note Text: PT resting in bed with no complaints at this time. Comfort measures offered. No acute distress noted, safety maintained. [facility] ED NOTE HNO ID: [id number] Author: Ghulam Villalobos RN Service: ? Author Type: Registered Nurse Type: ED Notes Filed: 01/28/2023 10:14 PM Note Text: Pt given portable phone again. Pt threw phone. Pt verbally deescalated. [facility] ED NOTE HNO ID: [id number] Author: Ghulam Villalobos RN Service: ? Author Type: Registered Nurse Type: ED Notes Filed: 01/28/2023 10:15 PM Note Text: Pt resting comfortably in bed. No acute distress noted. Safety maintained. [facility] ED PROV NOTEon 01-29-2023 ED PROV NOTE HNO ID: [id number] Author: Arsh Ivy DO Service: Emergency Medicine Author Type: Physician Type: ED Provider Notes Filed: 01/29/2023 6:02 AM Note Text: ED CONTINUATION OF CARE NOTE Code Status: Full Code Assumed care from: Dr. Patel Presentation / Findings / Interventions / Plan / Items to Follow Up: Labs Reviewed TOX SCREEN ROUT UR - Abnormal; Notable for the following components: Result Value Ethanol, Urine 371 (*) All other components within normal limits Narrative: Immunoassay screen only. Cross reactivity with other substances can occur with immunoassay screening. Detection of any drug(s) in this urine toxicology panel is presumptive only. These tests are for medical purposes only and should not be used for compliance monitoring, legal, or forensic use. Samples should be within normal physiological conditions (e.g. pH). This assay does not include adulteration/specimen validity testing. In clinical settings, confirmatory testing is at the practitioner's discretion [1]. If clinically indicated, confirmation by high specificity, quantitative methodology, which includes adulteration/specimen validity testing, may be requested on the same specimen through Client Services ([phone]) if contacted within 48 hours of initial testing. [1]Substance Abuse and Mental Health Services Administration (2012). Clinical Drug Testing in Primary Care Technical Assistance Publication Series 32. Department of Health and Human Services, [place], p.10. URINALYSIS WITH MICROSCOPIC, REFLEX CULTURE - Abnormal; Notable for the following components: Specific Barney, Ur <=1.005 (*) Leuk Esterase 1+ (*) WBC, Urine 11-25 /HPF (*) Bacteria Many (*) All other components within normal limits CBC - Abnormal; Notable for the following components: RBC 3.61 (*) MCV 105.8 (*) MCH 35.5 (*) All other components within normal limits COMP METABOLIC PANEL - Abnormal; Notable for the following components: Albumin 3.5 (*) Alkaline Phosphatase 213 (*) AST 104 (*) ALT 75 (*) Glucose 113 (*) BUN <2 (*) Creatinine 0.56 (*) Potassium 3.1 (*) CO2 18 (*) Anion Gap 20 (*) All other components within normal limits ALCOHOL/ETHANOL BLD - Abnormal; Notable for the following components: Ethanol 313 (*) All other components within normal limits HCG QUAL UR - Normal FENTANYL SCREEN, QUALITATIVE, URINE - Normal Narrative: Immunoassay screen only. Cross reactivity with other substances can occur with immunoassay screening. Detection of any drug(s) in this urine toxicology panel is presumptive only. These tests are for medical purposes only and should not be used for compliance monitoring, legal, or forensic use. Samples should be within normal physiological conditions (e.g. pH). This assay does not include adulteration/specimen validity testing. In clinical settings, confirmatory testing is at the practitioner's discretion [1]. If clinically indicated, confirmation by high specificity, quantitative methodology, which includes adulteration/specimen validity testing, may be requested on the same specimen through Client Services ([phone]) if contacted within 48 hours of initial testing. [1]Substance Abuse and Mental Health Services Administration (2012). Clinical Drug Testing in Primary Care Technical Assistance Publication Series 32. Department of Health and Human Services, [place], p.10. EXPEDITED COVID19 - Normal Narrative: This test has been authorized by FDA under an Emergency Use Authorization (EUA). URINE CULTURE IF INDICATED ED Course as of 01/29/23 0601 Others' Documentation Mon Jan 28, 20232148 Alcohol / Ethanol Blood(!): Ethanol 313(!) [CD] 2257 CMP(!): Protein, Total 6.8 Albumin 3.5(!) Calcium 9.0 Bilirubin, Total 0.6 Alkaline Phosphatase 213(!) AST 104(!) ALT 75(!) Glucose 113(!) BUN <2(!) Creatinine 0.56(!) Sodium 138 Potassium 3.1(!) Chloride 100 CO2 18(!) Anion Gap 20(!) eGFR 128 Hyperglycemia. There is slight anion gap metabolic acidosis which I suspect is from alcohol abuse. Do not think DKA. Also has transaminitis. [CD] 2258 CBC(!): WBC 8.78 RBC 3.61(!) Hemoglobin 12.8 Hematocrit 38.2 MCV 105.8(!) MCH 35.5(!) MCHC 33.5 RDW-CV 12.9 Platelet Count 290 MPV 9.3 Absolute nRBC <0.01 No leukocytosis or anemia [CD] 2258 Urinalysis w Microscopic, reflex Culture(!): Color Yellow Clarity Clear Glucose, Urine Negative Bilirubin, Urine Negative Ketones, Urine Negative Specific Barney, Ur <=1.005(!) Hemoglobin/Blood,Ur Negative pH, Urine 6.0 Protein, Urine Negative Urobilinogen 0.2 EU/dL Nitrites Negative Leukest 1+(!) WBC, Urine 11-25 /HPF(!) RBC, Urine 0-3 /HPF Bacteria Many(!) Epithelial Cells Many [CD] 2258 HCG QUALITATIVE URINE: HCG Qualitative, Urine Negative [CD] ED Course User Index [CD] Lobito Patel, DO Clinical Impressions as of 01/29/23 0601 Alcoholic intoxic (more content not included)... Normal [facility] CBC panel Auto (Bld)on 01-28 Erythrocyte distribution width (RBC) [Ratio] 12.9 % Normal 11.5-15.[address] [facility] Comment on above: Order Comment: Speci men Type: URINE SPECIMEN Ordering Facility: [facility] Address: [address] Performed By: #### U TOX2, 2105-09 #### [facility] CLIA [id number] [address] [place] [address] Hematocrit (Bld) [Volume fraction] 38.2 % Normal 36.0-46.[address] [facility] Comment on above: Order Comment: Speci men Type: URINE SPECIMEN Ordering Facility: [facility] Address: [address] Performed By: #### U TOX2, 2105-09 #### [facility] CLIA [id number] [address] [place] [address] [place] Hemoglobin (Bld) [Mass/Vol] 12.8 g/dL Normal 11.5-15.[address] [facility] Comment on above: Order Comment: Speci men Type: URINE SPECIMEN Ordering Facility: [facility] Address: [address] [place], [place] [address] Performed By: #### U TOX2, 2105-09 #### [facility] [place] [id number] [address] [place] [address] [place] MCH (RBC) [Entitic mass] 35.5 pg High 26.0-34.[address] [facility] Comment on above: Order Comment: Speci men Type: URINE SPECIMEN Ordering Facility: [facility] Address: [address] [place], [place] [address] Performed By: #### U TOX2, 2105-09 #### [facility] CLIA [id number] [address] [place], [place] [address] [facility] MCHC (RBC) [Mass/Vol] 33.5 g/dL Normal 30.5-36.0 [facility] Comment on above: Order Comment: Speci men Type: URINE SPECIMEN Ordering Facility: [facility] Address: [address] [place], [place] [address] Performed By: #### U TOX2, 2105-09 #### [facility] CLIA [id number] [address] [place] [address] [place] MCV (RBC) [Entitic vol] 105.8 fL High 80.0-100.[address] [facility] Comment on above: Order Comment: Speci men Type: URINE SPECIMEN Ordering Facility: [facility] Address: [address] [place], [place] [address] Performed By: #### U TOX2, 2105-09 #### [facility] CLIA [id number] [address] [place] [address] [place] Nucleated RBC (Bld) [#/Vol] 10*3/uL Normal <0.[address] [facility] Comment on above: Order Comment: Speci men Type: URINE SPECIMEN Ordering Facility: [facility] Address: [address] [place] [address] Performed By: #### U TOX2, 2105-09 #### [facility] CLIA [id number] [address] [place] [address] [place] Platelet mean volume (Bld) [Entitic vol] 9.3 fL Normal 9.0-12.[address] [facility] Comment on above: Order Comment: Speci men Type: URINE SPECIMEN Ordering Facility: [facility] Address: [address] [place] [address] Performed By: #### U TOX2, 2105-09 #### [facility] CLIA [id number] [address] [place], [place] [address] [place] Platelets (Bld) [#/Vol] 290 10*3/uL Normal 150-[address] [facility] Comment on above: Order Comment: Speci men Type: URINE SPECIMEN Ordering Facility: [facility] Address: [address] [place], [place] [address] Performed By: #### U TOX2, 2105-09 #### [facility] CLIA [id number] [address] [place], [place] [address] [place] RBC (Bld) [#/Vol] 3.61 10*6/uL Low 3.90-5.20 [facility] Comment on above: Order Comment: Speci men Type: URINE SPECIMEN Ordering Facility: [facility] Address: [address] [place] [address] Performed By: #### U TOX2, 2105-09 #### [facility] CLIA [id number] [facility] [place] [id number] [facility] WBC (Bld) [#/Vol] 8.78 10*3/uL Normal 3.70-11.00 [facility] Comment on above: Order Comment: Speci men Type: URINE SPECIMEN Ordering Facility: [facility] Address: [address] [place] [address] Performed By: #### U TOX2, 2105-09 #### [facility] CLIA [id number] [facility] [place] [id number] [facility] Comprehensive metabolic 2000 panelon 01-28-2023 Albumin [Mass/Vol] 3.5 g/dL Low 3.9-4.9 [facility] Comment on above: Order Comment: Speci men Type: URINE SPECIMEN Ordering Facility: [facility] Address: [address] [place] [address] Performed By: #### U TOX2, 2105-09 #### [facility] CLIA [id number] [facility] [place] [address] [place] ALP [Catalytic activity/Vol] 213 U/L High 34-[address] [facility] Comment on above: Order Comment: Speci men Type: URINE SPECIMEN Ordering Facility: [facility] Address: [address] [place], [place] [address] Performed By: #### U TOX2, 2105-09 #### [facility] CLIA [id number] [address] [place], [place] [address] [place] [facility] ALT [Catalytic activity/Vol] 75 U/L High 7-[address] [facility] Comment on above: Order Comment: Speci men Type: URINE SPECIMEN Ordering Facility: [facility] Address: [address] Performed By: #### U TOX2, 2105-09 #### [facility] CLIA [id number] [facility] [place] [address] [place] [facility] Anion gap [Moles/Vol] 20 mmol/L High 9-18 [facility] Comment on above: Order Comment: Speci men Type: URINE SPECIMEN Ordering Facility: [facility] Address: [address] Performed By: #### U TOX2, 2105-09 #### [facility] CLIA [id number] [facility] [place] [address] [place] AST [Catalytic activity/Vol] 104 U/L High 13-[address] [facility] Comment on above: Order Comment: Speci men Type: URINE SPECIMEN Ordering Facility: [facility] Address: [address] Performed By: #### U TOX2, 2105-09 #### [facility] CLIA [id number] [facility] [place] [address] [place] Bilirubin [Mass/Vol] 0.6 mg/dL Normal 0.2-1.3 [facility] Comment on above: Order Comment: Speci men Type: URINE SPECIMEN Ordering Facility: [facility] Address: [address] [place] [address] Performed By: #### U TOX2, 2105-09 #### [facility] CLIA [id number] [facility] [place], [place] [address] [place] Calcium [Mass/Vol] 9.0 mg/dL Normal 8.5-10.2 [facility] Comment on above: Order Comment: Speci men Type: URINE SPECIMEN Ordering Facility: [facility] Address: [address] [place] [address] Performed By: #### U TOX2, 2105-09 #### [facility] CLIA [id number] [address] [place], [place] [address] [place] Chloride [Moles/Vol] 100 mmol/L Normal 97-105 [facility] Comment on above: Order Comment: Speci men Type: URINE SPECIMEN Ordering Facility: [facility] Address: [address] [place] [address] Performed By: #### U TOX2, 2105-09 #### [facility] CLIA [id number] [address] [place], [place] [address] [place] CO2 [Moles/Vol] 18 mmol/L Low 22-[address] [facility] Comment on above: Order Comment: Speci men Type: URINE SPECIMEN Ordering Facility: [facility] Address: [address] [place] [address] Performed By: #### U TOX2, 2105-09 #### [facility] CLIA [id number] [address] [place], [place] [address] [place] Creatinine [Mass/Vol] 0.56 mg/dL Low 0.58-0.96 [facility] Comment on above: Order Comment: Speci men Type: URINE SPECIMEN Ordering Facility: [facility] Address: [address] [place] [address] Performed By: #### U TOX2, 2105-09 #### [facility] CLIA [id number] [address] [place], [place] [address] [place] ESTIMATED GLOMERULAR FILTRATION RATE 128 mL/min/1.73m??? Normal >=[address] [facility] Comment on above: Order Comment: Speci men Type: URINE SPECIMEN Ordering Facility: [facility] Address: [address] [place] [address] Result Comment: Ebony mated Glomerular Filtration Rate (eGFR) is calculated using the 2020 CKD-EPI creatinine equation. This equation utilizes serum creatinine, sex, and age as parameters. The creatinine assay has traceable calibration to isotope dilution-mass spectrometry. Refer to KDIGO guidelines for clinical interpretation. In patients with unstable renal function, e.g. those with acute kidney injury, the eGFR may not accurately reflect actual GFR. Performed By: #### U TOX2, 2105-09 #### [facility] IA [id number] [address] [place], [place] [address] [place] Glucose [Mass/Vol] 113 mg/dL High 74-99 [facility] Comment on above: Order Comment: Speci men Type: URINE SPECIMEN Ordering Facility: [facility] Address: [address] [place], [place] [address] Result Comment: The [place] Diabetes Association (ADA) provides guidance for cutoff values for fasting glucose and random glucose. The ADA defines fasting as no caloric intake for at least 8 hours. Fasting plasma glucose results between 100 to 125 mg/dL indicate increased risk for diabetes (prediabetes). Fasting plasma glucose results greater than or equal to 126 mg/dL meet the criteria for diagnosis of diabetes. In the absence of unequivocal hyperglycemia, results should be confirmed by repeat testing. In a patient with classic symptoms of hyperglycemia or hyperglycemic crisis, random plasma glucose results greater than or equal to 200 mg/dL meet the criteria for diagnosis of diabetes. Reference: Standards of Medical Care in Diabetes 2016, [place] [employer] Association. Diabetes Care. 2016.39(Suppl 1). Performed By: #### U TOX2, 2105-09 #### [facility] [id number] [address] [place], [place] [address] [place] Potassium [Moles/Vol] 3.1 mmol/L Low 3.7-5.1 [facility] Comment on above: Order Comment: Speci men Type: URINE SPECIMEN Ordering Facility: [facility] Address: [address] [place] [address] Performed By: #### U TOX2, 2105-09 #### [facility] [id number] [address] [place], [place] [address] [place] Protein [Mass/Vol] 6.8 g/dL Normal 6.3-8.0 [facility] Comment on above: Order Comment: Speci men Type: URINE SPECIMEN Ordering Facility: [facility] Address: [address] [place], [place] [address] Performed By: #### U TOX2, 2105-09 #### [facility] CLIA [id number] [facility] [place], [place] [address] [place] [facility] Sodium [Moles/Vol] 138 mmol/L Normal 136-144 [facility] Comment on above: Order Comment: Speci men Type: URINE SPECIMEN Ordering Facility: [facility] Address: [address]imee [address] [place] [id number] Performed By: #### U TOX2, 2105-09 #### [facility] CLIA [id number] [facility] [place] [address] [place] Urea nitrogen [Mass/Vol] mg/dL Low 7-[address] [facility] Comment on above: Order Comment: Speci men Type: URINE SPECIMEN Ordering Facility: [facility] Address: [facility] [place] [address] Performed By: #### U TOX2, 2105-09 #### [facility] CLIA [id number] [address] [place] [address] [place] ECG COMPLETEon 01-28-2023 ECG COMPLETE Ventricular Rate : 1 16 BPM Atrial Rate : 116 BPM P-R Interval : 140 ms QRS Duration : 75 ms Q-T Interval : 351 ms QTC Calculation(Bazett) : 488 ms Calculated P [place] : 71 degrees Calculated R [place] : 81 degrees Calculated T [place] : 25 degrees Sinus tachycardia Borderline prolonged QT interval Borderline ECG Confirmed by LOBITO PATEL DO ([id number]), development editor JOE ROCHA ([id number]) on 01/29/2023 12:31:09 PM NAME : RICA STOUT PID : [id number] : 1995 Gender : Female Race : Unknown ORD : [id number] Procedure Date : Jan 28 2023 21:12:20 Edit Date : Jan 29 2023 12:31:09 Diagnosis: Sinus tachycardia Borderline prolonged QT interval Borderline ECG Confirmed by LOBITO PATEL DO ([id number]), development editor JOE ROCHA ([id number]) on 01/29/2023 12:31:09 PM Test Reason : Arrhythmia Location : 502 : LUED 6 Overread By : LOBITO PATEL DO Edited By : JOE ROCHA Referred By : , Acquired by : [id number], [facility] ED NOTEon 01-28-2023 ED NOTE HNO ID: [id number] Author: Ghulam Villalobos RN Service: ? Author Type: Registered Nurse Type: ED Notes Filed: 01/28/2023 10:13 PM Note Text: Pt given portable phone to call family. [facility] ED NOTE HNO ID: [id number] Author: Ghulam Villalobos RN Service: ? Author Type: Registered Nurse Type: ED Notes Filed: 01/28/2023 10:12 PM Note Text: Pt placed on continuous cardiac and oxygen monitoring. [facility] ED NOTE HNO ID: [id number] Author: Ghulam Villalobos RN Service: ? Author Type: Registered Nurse Type: ED Notes Filed: 01/28/2023 8:23 PM Note Text: Pt BIB EMS for ETOH. Pt denies SI/HI. Pt denies AVH. Pt stating her mom called EMS because for the last two months her feet have been swollen. Pt denies any PMH. Pt has no other complaints at this time. [facility] ED NOTE HNO ID: [id number] Author: Genet Erickson RN Service: ? Author Type: Registered Nurse Type: ED Notes Filed: 01/28/2023 8:09 PM Note Text: Bed: ED-06 Expected date: Expected time: Means of arrival: Comments: ems [facility] ED PROV NOTEon 01-28-2023 ED PROV NOTE HNO ID: [id number] Author: Lobito Patel DO Service: Emergency Medicine Author Type: Physician Type: ED Provider Notes Filed: 01/29/2023 1:13 PM Note Text: ED Provider Note Patient Name: Rica Stout : 1995 SERVICE DATE: 01/28/23 History Patient presents with: Alcohol Problem Foot Swelling 27-year-old female presenting with intoxication. Patient is very intoxicated and says her mom called EMS for bilateral leg swelling which she says she has had for several months. Does admit to drinking alcohol. Very uncooperative with exam and is physically and verbally aggressive with staff. Per nursing staff who spoke with grandmother, apparently patient had been drinking heavily with her mother today. They got into a verbal argument and mother called 911. Patient brought to ED for alcohol intoxication and combativeness. History reviewed. No pertinent past medical history. History reviewed. No pertinent surgical history. No family history on file. Social History Tobacco Use Smoking status: Never Smokeless tobacco: Not on file Vaping Use Vaping Use: current everyday user Substances: Nicotine Substance and Sexual Activity Alcohol use: Yes Drug use: Not Currently Sexual activity: Yes Partners: Male control/protection: Injection ALLERGIES Allergen Reactions Penicillins Rash Review of Systems Unable to perform ROS: Other (Patient is intoxicated and not cooperative) Physical Exam Vitals [01/28/232011] BP Pulse Temp Temp src Resp SpO2 Weight Height 111/68 (!) 109 36.7 ?C (98.1 ?F) Oral 18 100 % -- -- Physical Exam Constitutional: Comments: Slurred speech. Is verbally and physically aggressive HENT: Head: Normocephalic and atraumatic. Mouth/Throat: Mouth: Mucous membranes are moist. Pharynx: Oropharynx is clear. Eyes: Conjunctiva/sclera: Conjunctivae normal. Cardiovascular: Rate and Rhythm: Regular rhythm. Tachycardia present. Pulmonary: Effort: Pulmonary effort is normal. Musculoskeletal: Right lower leg: Edema present. Left lower leg: Edema present. Comments: Trace pitting edema bilateral feet and ankles. No calf swelling or tenderness Skin: General: Skin is warm and dry. Findings: No erythema. Neurological: General: No focal deficit present. Mental Status: She is alert. Diagnostic Testing ED Labs Ordered and Reviewed TOX SCREEN ROUT UR - Abnormal; Notable for the following components: Result Value Ref Range Ethanol, Urine 371 (*) <11 mg/dL All other components within normal limits Narrative: Immunoassay screen only. Cross reactivity with other substances can occur with immunoassay screening. Detection of any drug(s) in this urine toxicology panel is presumptive only. These tests are for medical purposes only and should not be used for compliance monitoring, legal, or forensic use. Samples should be within normal physiological conditions (e.g. pH). This assay does not include adulteration/specimen validity testing. In clinical settings, confirmatory testing is at the practitioner's discretion [1]. If clinically indicated, confirmation by high specificity, quantitative methodology, which includes adulteration/specimen validity testing, may be requested on the same specimen through Client Services ([phone]) if contacted within 48 hours of initial testing. [1]Substance Abuse and Mental Health Services Administration (2012). Clinical Drug Testing in Primary Care Technical Assistance Publication Series 32. Department of Health and Human Services, [place], p.10. URINALYSIS WITH MICROSCOPIC, REFLEX CULTURE - Abnormal; Notable for the following components: Specific Barney, Ur <=1.005 (*) 1.005 - 1.030 Leuk Esterase 1+ (*) Negative WBC, Urine 11-25 /HPF (*) 0-5 /HPF Bacteria Many (*) None Seen /HPF All other components within normal limits CBC - Abnormal; Notable for the following components: RBC 3.61 (*) 3.90 - 5.20 m/uL MCV 105.8 (*) 80.0 - 100.0 fL MCH 35.5 (*) 26.0 - 34.0 pg All other components within normal limits HCG QUAL UR - Normal FENTANYL SCREEN, QUALITATIVE, URINE - Normal Narrative: Immunoassay screen only. Cross reactivity with other substances can occur with immunoassay screening. Detection of any drug(s) in this urine toxicology panel is presumptive only. These tests are for medical purposes only and should not be used for compliance monitoring, legal, or forensic use. Samples should be within normal physiological conditions (e.g. pH). This assay does not include adulteration/specimen validity testing. In clinical settings, confirmatory testing is at the practitioner's discretion [1]. If clinically indicated, confirmation by high specificity, quantitative methodology, which includes adulteration/specimen validity testing, may be requested on the same specimen through Client Services ([phone]) if contacted within 48 hours of initial testing. (more content not included)... Normal [facility] Ethanol [facility] 01-28- 023 Ethanol [Mass/Vol] 313 mg/dL High <11 [facility] Comment on above: Order Comment: Speci men Type: URINE SPECIMEN Ordering Facility: [facility] Address: [address] [place] [address] [place] [address] Result Comment: Valu es > 80 mg/dL may indicate intoxication Performed By: #### U TOX2, 2106-3 #### [facility] CLIA [id number] [address] [place], [place] [address] [place] FENTANYL SCREEN, QUALITATIVE , URINEon 01-28-2023 fentaNYL Screen Ql (U) Negative Normal Negative [facility] Comment on above: Order Comment: Speci men Type: URINE SPECIMEN Ordering Facility: [facility] Address: [address] [place] [address] Result Comment: Cuto ff threshold at 5 ng/mL. Performed By: #### U TOX2, 2105-09 #### [facility] [id number] [address] [place], [place] [address] [facility] HCG Preg Ur Qlon 01-28-2023 HCG ( test) Ql (U) Negative Normal Negative [facility] Comment on above: Order Comment: Speci men Type: URINE SPECIMEN Ordering Facility: [facility] Address: [address] [place] [address] Result Comment: This test is intended to aid in the early detection of . Very dilute urine samples, as indicated by a low specific gravity, may not contain automobile rental representative levels of hCG. This test detects intact hCG only. This test does not reliably detect hCG degradation products, including free-beta subunit and beta-core fragment. Therefore, this test may show reduced reactivity in urine after 8 weeks gestation. A number of conditions other than , including trophoblastic disease and certain non-trophoblastic neoplasms cause elevated levels of hCG. As with any assay employing mouse antibodies, the possibility exists for interference by human anti-mouse antibodies (HAMA) in the specimen. The test provides a presumptive diagnosis for . Performed By: #### U TOX2, 2105-09 #### [facility] CLIA [id number] [address] [place], [place] [address] [place] NURSING PROGon 01-28-2023 NURSING PROG HNO ID: [id number] Author: Ghulam Villalobos RN Service: ? Author Type: Registered Nurse Type: Nursing Progress Note Filed: 01/28/2023 9:28 PM Note Text: Nursing Progress: Topic: RESTRAINT VIOLENT PATIENT NAME: Rica Stout Patient Location: [facility]/ED-06 Room: ED-06 The patient demonstrates Combative Behavior and requires police/ security Hands on Escort as evidenced by the following behaviors, yelling at staff, cussing at staff, swinging at staff, scratching staff's face, and threatening staff which pose an imminent danger to self or others. The following interventions were attempted but were not effective in protecting the patient's safety: Verbal Redirection (patient cognitively impaired), 1:1 With Staff, Decreased Stimulation Next, a comprehensive assessment was performed and warranted placing the patient in Hard Left Ankle, Hard Left Wrist, Hard Right Wrist, Hard Right Ankle, the least restrictive restraint needed to protect the patient's safety. Ongoing safety assessments and evaluation for earliest removal of restraints will be performed. DATE: January 28, 2023 TIME: 9:00 PM Ghulam Villalobos RN [facility] SARS-CoV-2 RNA Resp Ql OKSANA+p arpan 01-28-2023 SARS-CoV-2 (COVID-19) RNA OKSANA+probe Ql (Resp) COVID 19 RESULT: Not detected The method used is RT-PCR or an equivalent NAAT method. Reference Range(the expected result in uninfected individuals): Not detected [facility] Comment on above: Performed By: #### 9 4500-6 #### [facility] CLIA [id number] [address] [place] [address] [place] TOX SCREEN ROUT URon 023 Amphetamines Confirm (U) [Mass/Vol] Negative Normal Negative [facility] Comment on above: Order Comment: Speci men Type: URINE SPECIMEN Ordering Facility: [facility] Address: [address] [place], [place] [id number] Result Comment: Cuto ff threshold at 1000 ng/mL. Performed By: #### U TOX2, 6-3 #### [facility] CLIA [id number] [address] [place] [address] [place] BARBITURATES, URINE Negative Normal Negative [facility] Comment on above: Order Comment: Speci men Type: URINE SPECIMEN Ordering Facility: [facility] Address: [address] [place], [place] [phone] Result Comment: Cuto ff threshold at 200 ng/mL. Performed By: #### U TOX2, 2105-09 #### [facility] CLIA [id number] [address] [place] [address], [place] [address] [place] BENZODIAZEPINES, UR Negative Normal Negative [facility] Comment on above: Order Comment: Speci men Type: URINE SPECIMEN Ordering Facility: [facility] Address: [address] [place] [address] Result Comment: Cuto ff threshold at 200 ng/mL. Performed By: #### U TOX2, 2105-09 #### [facility] CLIA [id number] [address] [place], [place] [address] [place] CANNABINOIDS,URINE Negative Normal Negative [facility] Comment on above: Order Comment: Speci men Type: URINE SPECIMEN Ordering Facility: [facility] Address: [address] [place] [address] Result Comment: Cuto ff threshold at 50 ng/mL. Performed By: #### U TOX2, 2105-09 #### [facility] CLIA [id number] [address] [place], [place] [address] [place] Cocaine Ql (U) Negative Normal Negative [facility] Comment on above: Order Comment: Speci men Type: URINE SPECIMEN Ordering Facility: [facility] Address: [address] [place] [address] Result Comment: Cuto ff threshold at 300 ng/mL. Performed By: #### U TOX2, 2105-09 #### [facility] CLIA [id number] [address] [place], [place] [address] [place] Ethanol (U) [Mass/Vol] 371 mg/dL High <11 [facility] Comment on above: Order Comment: Speci men Type: URINE SPECIMEN Ordering Facility: [facility] Address: [address] [place] [address] Performed By: #### U TOX2, 2105-09 #### [facility] CLIA [id number] [address] [place], [place] [address] [facility] Opiates Screen Ql (U) Negative Normal Negative [facility] Comment on above: Order Comment: Speci men Type: URINE SPECIMEN Ordering Facility: [facility] Address: [address] [place] [address] Result Comment: Cuto ff threshold at 300 ng/mL. Performed By: #### U TOX2, 2105-09 #### [facility] CLIA [id number] [address] [place], [place] [address] [facility] oxyCODONE cutoff Screen (U) [Mass/Vol] Negative Normal Negative [facility] Comment on above: Order Comment: Speci men Type: URINE SPECIMEN Ordering Facility: [facility] Address: [address] [place] [address] Result Comment: Cuto ff threshold at 100 ng/mL. Performed By: #### U TOX2, 2105-09 #### [facility] CLIA [id number] [address] Phencyclidine Ql (U) Negative Normal Negative [facility] Comment on above: Order Comment: Speci men Type: URINE SPECIMEN Ordering Facility: [facility] Address: [address] [place] [address] Result Comment: Cuto ff threshold at 25 ng/mL. Performed By: #### U TOX2, 2105-09 #### [facility] CLIA [id number] [address] [place] [address] Urinalysis complete panel (U )on 01-28-2023 Bacteria LM.HPF (Urine sed) [#/Area] Many Abnormal None Seen [facility] Comment on above: Order Comment: Speci men Type: URINE SPECIMENOrdering Facility: [facility] Address: [address] [place] [address] Performed By: #### 2 4356-8 ####[facility] [id number] [address] STATES OF [facility]CLIA [id number] [place] [address] [place] Bilirubin Ql (U) Negative Normal Negative [facility] Comment on above: Order Comment: Speci men Type: URINE SPECIMENOrdering Facility: [facility] Address: [address] [place] [address] Performed By: #### 2 4356-8 ####[facility] [id number] [address] STATES [facility] LABCLIA [id number] [place] [address] [place] Clarity (Unsp spec) Clear Normal Clear [facility] Comment on above: Order Comment: Speci men Type: URINE SPECIMENOrdering Facility: [facility] Address: [address] [place] [address] Performed By: #### 2 4356-8 ####[facility] [id number] [place] [address] [place] [facility] [id number] [place] [address] [place] Color (U) Yellow Normal Yellow [facility] Comment on above: Order Comment: Speci men Type: URINE SPECIMENOrdering Facility: [facility] Address: [address] [place], [place] [address] Performed By: #### 2 4356-8 ####[facility] [id number] [place] [address] [place] [facility] LABCLIA [id number] [place] [address] [place] Epithelial cells LM.HPF (Urine sed) [#/Area] Many Normal [facility] Comment on above: Order Comment: Speci men Type: URINE SPECIMENOrdering Facility: [facility] Address: [address] [place] [address] Performed By: #### 2 4356-8 ####[facility] [id number] [address] [place], [place] [address] [facility]CLIA [id number] [address] STATES [facility] Glucose Test strip (U) [Mass/Vol] Negative Normal Negative [facility] Comment on above: Order Comment: Speci men Type: URINE SPECIMENOrdering Facility: [facility] Address: [address] [place] [address] Performed By: #### 2 4356-8 ####[facility] [id number] [address] [place] [address] LABCLIA [id number] [place] [address] [place] Hemoglobin Ql (U) Negative Normal Negative, Trace [facility] Comment on above: Order Comment: Speci men Type: URINE SPECIMENOrdering Facility: [facility] Address: [address] [place] [address] Performed By: #### 2 4356-8 ####[facility] [id number] [place] [address] [facility] LABCLIA [id number] [place] [id number] [place] Ketones Ql (U) Negative Normal Negative [facility] Comment on above: Order Comment: Speci men Type: URINE SPECIMENOrdering Facility: [facility] Address: [address] [place], [place] [phone] Performed By: #### 2 4356-8 ####[facility] [id number] [place] [address] [facility]CLIA [id number] [place] [id number] [place] Leukocyte esterase Test strip Ql (U) 1+ Abnormal Negative [facility] Comment on above: Order Comment: Speci men Type: URINE SPECIMENOrdering Facility: [facility] Address: [address] [place] [address] Performed By: #### 2 4356-8 ####[facility] [id number] [address] [place] [address] LABCLIA [id number] [place] [address] [place] Nitrite Ql (U) Negative Normal Negative [facility] Comment on above: Order Comment: Speci men Type: URINE SPECIMENOrdering Facility: [facility] Address: [address] [place] [address] Performed By: #### 2 4356-8 ####[facility] [id number] [address] LABCLIA [id number] [address] STATES [place] pH (U) 6.0 [pH] Normal 5.0-8.[address] [facility] Comment on above: Order Comment: Speci men Type: URINE SPECIMENOrdering Facility: [facility] Address: [address] [place] [address] Performed By: #### 2 4356-8 ####[facility] [id number] [address] LABCLIA [id number] [place] [address] [place] Protein (U) [Mass/Vol] Negative Normal Negative [facility] Comment on above: Order Comment: Speci men Type: URINE SPECIMENOrdering Facility: [facility] Address: [address] [place] [address] Performed By: #### 2 4356-8 ####[facility] [id number] [address] LABCLIA [id number] [place] [address] [place] RBC LM.HPF (Urine sed) [#/Area] 0-3 /HPF Normal 0-3 /HPF [facility] Comment on above: Order Comment: Speci men Type: URINE SPECIMENOrdering Facility: [facility] Address: [address] [place] [address] Performed By: #### 2 4356-8 ####[facility] [id number] [address] [place] [address] LABCLIA [id number] [place] [address] [place] Specific gravity (U) [Rel density] <=1.005 Low 1.005-1.[address] [facility] Comment on above: Order Comment: Speci men Type: URINE SPECIMENOrdering Facility: [facility] Address: [address] [place] [address] Performed By: #### 2 4356-8 ####[facility] [id number] [address] LABCLIA [id number] [address] OF [place] Urobilinogen Ql (U) 0.2 EU/dL Normal 0.2-1.0 EU/dL [facility] Comment on above: Order Comment: Speci men Type: URINE SPECIMENOrdering Facility: [facility] Address: [address] [place] [address] Performed By: #### 2 4356-8 ####[facility] [id number] [address] LABCLIA [id number] [place] [address] [place] WBC LM.HPF (Urine sed) [#/Area] 11-25 /HPF Abnormal 0-5 /HPF [facility] Comment on above: Order Comment: Speci men Type: URINE SPECIMENOrdering Facility: [facility] Address: [address] [id number] Performed By: #### 2 4356-8 ####[facility] [id number] [address] [place] [address] OF [facility]CLIA [id number] [facility] CENTERValorie [place]IVERDES[place] [id number] OF [facility] Urinalysis complete pnl Uron 01-28-2023 Urinalysis complete panel (U) COLOR: Yellow CLARITY: Clear GLUCOSE, URINE: Negative BILIRUBIN, URINE: Negative KETONES, URINE: Negative SPECIFIC GRAVITY, UR: <=1.005 HEMOGLOBIN/BLOOD, UR: Negative PH, URINE: 6.0 PROTEIN, URINE: Negative UROBILINOGEN: 0.2 EU/dL NITRITES: Negative LEUKEST: 1+ WBC, URINE: 11-25 /HPF RBC, URINE: 0-3 /HPF BACTERIA: Many SQUAMOUS EPITHELIAL CELLS: Many ORGANISM ID: 1 >=100,000 CFU/ml Klebsiella pneumoniae ORGANISM ID: 1 (KLEBSIELLA PNEUMONIAE) ANTIBIOTIC INTERPRETATION JOSEPH STATUS REFERENCE RANGE Ampicillin R F Cefazolin S <=4 F Susceptible 0-16 , Intermediate <0 or >16 , Resistant >16 Ceftriaxone S <=1 F Susceptible <=1 , Intermediate >1 , Resistant >=4 Cefepime S <=1 F Susceptible <=2 , Susceptible-Dose Dependent >2 , Resistant >=16 Ertapenem S <=0.5 F Susceptible <=0.5 , Intermediate >.5 , Resistant >1 Meropenem S <=0.25 F Susceptible <=1 , Intermediate >1 , Resistant >2 Ampicillin/Sulbact S <=2 F Susceptible <=8 , Intermediate >8 , Resistant >16 Piperacillin/Tazobac S <=4 F Susceptible <=16 , Intermediate >16 , Resistant >64 Gentamicin S <=1 F Susceptible <=4 , Intermediate >4 , Resistant >8 Tobramycin S <=1 F Susceptible <=4 , Intermediate >4 , Resistant >8 Trimeth sulfameth S <=20 F Susceptible <=40 , Resistant >40 Ciprofloxacin S <=0.25 F Susceptible <0.5 , Intermediate >=.5 , Resistant >=1 Nitrofurantoin S <=16 F Susceptible <=32 , Intermediate >32 , Resistant >64 [facility] Comment on above: Order Comment: Speci men Type: URINE SPECIMENOrdering Facility: [facility] Address: [address] [place] [address] Performed By: #### 2 4356-8 ####[facility] [id number] [address] LABCLIA [id number] [address] XR CSPINE MIN 4 VIEWSon 09-21 XR CSPINE MIN 4 VIEWS EXAMINATION: XR CS PINE MIN 4 VIEWS HISTORY: Paresthesia COMPARISON: No relevant comparison available. FINDINGS: BONES: Normal. No significant spondylosis, scoliosis, fracture, or visible bony lesion. Reversal of cervical lordosis DISC SPACES: Normal. No significant disc height narrowing, subluxation, or endplate abnormality. PARASPINOUS: Negative. No paraspinous abnormality is seen. OTHER: Negative. IMPRESSION: Reversal of cervical lordosis Electronically authenticated by: KARYNA LANGFORD Date: 2022-10-19 08:05 Normal [facility] MRI LSPINE WO CONon 10-19-19 MRI LSPINE WO CON EXAMINATION: MRI LSP INE WO CON HISTORY: Paresthesia , bilateral leg weakness, numbness, difficulty walking COMPARISON: No relevant comparison available. TECHNIQUE: A variety of imaging planes and parameters were utilized for visualization of suspected pathology. FINDINGS: For the purposes of numbering, sagittal T2 image # 8 extends from the T11 vertebral body superiorly to the S3 level inferiorly. PARASPINAL AREA: Normal with no visible mass. BONES: Normal alignment with no acute fracture or spondylolisthesis. Mild degenerative spondylosis CORD/CAUDA EQUINA: Normal caliber, contour, and signal intensity. DISC LEVELS: 12-L1: No significant disc/facet abnormality, spinal stenosis, or foraminal stenosis. L1-L2: No significant disc/facet abnormality, spinal stenosis, or foraminal stenosis. L2-L3: No significant disc/facet abnormality, spinal stenosis, or foraminal stenosis. L3-L4: No significant disc/facet abnormality, spinal stenosis, or foraminal stenosis. L4-L5: No significant disc/facet abnormality, spinal stenosis, or foraminal stenosis. L5-S1: No significant disc/facet abnormality, spinal stenosis, or foraminal stenosis. IMPRESSION: No disc bulge or herniation. No central or foraminal stenosis Electronically authenticated by: KARYNA LANGFORD Date: 2022-10-18 15:24 Normal [facility] XR LSPINE MIN 4 VIEWSon 09-19 XR LSPINE MIN 4 VIEWS EXAMINATION: XR LS PINE MIN 4 VIEWS HISTORY: Paresthesia COMPARISON: No relevant comparison available. FINDINGS: BONES: Mild right convex curvature lumbar spine. No fracture, spondylolisthesis, bone lesion. No significant facet arthropathy. DISC SPACES: Mild narrowing L5-S1. PARASPINOUS: Negative. No paraspinous abnormality is seen. OTHER: Negative. IMPRESSION: 1. Mild disc space narrowing at L5-S1. Consider MRI for further evaluation if symptoms persist. Electronically authenticated by: DAVID TRUONG Date: 2022-09-28 07:03 Normal [facility] MAMMO POST BIOPSY RIGHTon MAMMO POST BIOPSY RIGHT Patient: RICA STOUT Exam Date: 09/27/2022 : 1995 Gender:F Ordering : DANUTA ARAUJO [facility] Admission #: [id number] Family : DR KARYNA LANGFORD M.D. Order #: [id number] CLICK HERE TO VIEW EXAM This report includes an Addendum and supersedes previous reports for this exam. RADIOLOGY REPORT PROCEDURE: MAMMOGRAM POST BIOPSY IMAGES COMPARISON: MG MAMM DIAGNOSTIC 3D JOAQUIM CAD, 09/20/2022. INDICATIONS: Mammographic mass of right breast BREAST COMPOSITION: Heterogeneously dense,which may obscure small masses. FINDINGS: BIOPSY MARKER: A metallic marker has been placed in the targeted location within the 12 o'clock mid right breast. BREAST FINDINGS: Micro clip marker is within the targeted mass Dictated by: Karyna Langford MD on 09/27/2022 at 10:25 Approved by: Karyna Lagnford MD on 09/27/2022 at 10:26 ADDENDUM: FINDINGS: DIAGNOSTIC CATEGORY 2--BENIGN FINDING: RECOMMENDATIONS: CLINICAL EVALUATION. Dictated by: Karyna Langford MD on 10/03/2022 at 06:51 Approved by: Karyna Langford MD on 10/03/2022 at 06:51 Normal [facility] US VAC ASST BX BRST RT W CLI Cyrus 09-27-2022 US VAC ASST BX BRST RT W CLIP Patient: RICA STOUT Exam Date: 09/27/2022 : 1995 Gender:F Ordering : DANUTA ARAUJO [facility] Admission #: [id number] Family : Order #: [id number] CLICK HERE TO VIEW EXAM This report includes an Addendum and supersedes previous reports for this exam. RADIOLOGY REPORT PROCEDURE: ULTRASOUND BIOPSY VACCUUM ASSISTED RIGHT WITH CLIP COMPARISON: None. INDICATIONS: Mammographic mass of right breast DESCRIPTION: After obtaining informed consent, a vacuum assisted ultrasound-guided biopsy was performed in the usual sterile manner. The location of the biopsy was then marked as indicated below. FINDINGS: RECOMMENDATIONS: SPECIMEN #, LOCATION: 5 samples 12 o'clock right breast mass BIOPSY NEEDLE: 13 gauge Elite (r) vacuum core biopsy needle. MARKERS(S) PLACED: A single metallic marker was placed in the appropriate targeted location. MEDICATION: 2 cc buffered 1% lidocaine without epinephrine superficial, 7 cc Buffered 1% lidocaine with epinephrine administered deep. COMPLICATIONS: None. PATHOLOGY LAB: Pending. CONCLUSION: 1. Uneventful ultrasound-guided breast biopsy. 2. Pathology results are pending. An addendum to this report will be provided after pathology results are available. Dictated by: Karyna Langford MD on 09/27/2022 at 09:17 Approved by: Karyna Langford MD on 09/27/2022 at 09:19 ADDENDUM: The pathology report is now available and shows benign findings concordant with the imaging findings. Final diagnosis fibroepithelial lesion consistent with fibroid . Report faxed to Danuta Araujo and receipt verified with staff by telephone Dictated by: Karyna Langford MD on 10/03/2022 at 06:47 Approved by: Karyna Langford MD on 10/03/2022 at 06:48 Normal [facility] PAT by IFAon 09-25-2022 Antinuclear Antibodies, IFA Negative Normal [facility] Comment on above: Result Comment: Nega tive <1:80 Borderline 1:80 Positive >1:80 ICAP nomenclature: AC-0 For more information about Hep-2 cell patterns use ANApatterns.org, the official website for the International Consensus on Antinuclear Antibody (PAT) Patterns (ICAP). Performed By: #### C IRINA BENOIT #### [facility] [address] [place] [address] Dr. Kush Call ANTISTREPTOLYSIN O AB (ASO)o n 09-20-2022 Antistreptolysin O Ab 71.6 IU/mL Normal 0.0-200.0 [facility] Comment on above: Performed By: #### C IRINA BENOIT #### [facility] [address] [place] [address] Dr. Kush Call MG MAMM DIAGNOSTIC 3D JOAQUIM CA Don 09-20-2022 MG MAMM DIAGNOSTIC 3D JOAQUIM CAD Patient: RICA STOUT Exam Date: 09/20/2022 : 1995 Gender:F Ordering : DANUTA ARAUJO [facility] Admission #: [id number] Family : Order #: [id number] CLICK HERE TO VIEW EXAM RADIOLOGY REPORT PROCEDURE: MAMMOGRAM DIAGNOSTIC 3D BILATERAL CAD COMPARISON: US BREAST RIGHT LIMITED, 09/19/2022. INDICATIONS: Breast lump Calculator Name NCI Breast Cancer Risk Assessment Tool 5 Year Breast Cancer Risk Not Applicable. Lifetime Breast Cancer Risk Not Applicable. Personal Breast Cancer No Personal Ovarian Cancer No Treatments None Family Cancers Mother with breast cancer at age 45; Grandfather-maternal with unknown cancer at age 70. LOCATION: [facility] BREAST COMPOSITION: Heterogeneously dense,which may obscure small masses. FINDINGS: DIAGNOSTIC CATEGORY 4--SUSPICIOUS FOR MALIGNANCY. FINDING DOES NOT EXHIBIT CLASSIC FINDINGS OF BREAST CANCER: Deep to triangle marker is a 2.2 x 2 cm mass 12 o'clock mid posterior right breast. This lesion corresponds to the ultrasound abnormality, Ultrasound core biopsy is recommended RECOMMENDATIONS: ULTRASOUND-GUIDED CORE BIOPSY: RIGHT BREAST PLEASE NOTE: A NORMAL MAMMOGRAM DOES NOT EXCLUDE THE POSSIBILITY OF BREAST CANCER. A CLINICALLY SUSPICIOUS PALPABLE LUMP SHOULD BE BIOPSIED. Dictated by: Karyna Langford MD on 09/20/2022 at 14:47 Approved by: Karyna Langford MD on 09/20/2022 at 14:51 Normal [facility] RHEUMATOID FACTORon 09-21-19 23 RA Latex Turbid. <10.0 Normal <14.0 [facility] Comment on above: Performed By: #### C XAVIER BENOITDM #### [facility] [address] [place] [address] Dr. Kush Call CRPon 09-19-2022 CRP [Mass/Vol] mg/L Normal <=1.0 [facility] Comment on above: Performed By: #### C RP, CMP, URIC, MG #### [facility] [address] [place] [address] Dr. Kush Call FOLATEon 09-19-2022 FOLATE 8.40 ng/mL Critically low 8.60-58.90 [facility] Comment on above: Performed By: #### C KAYCEE, CMADM #### [facility] [address] [place] [address] Dr. Kush Call MAGNESIUMon 09-19-2022 Magnesium [Mass/Vol] 1.9 mg/dL Normal 1.8-2.4 [facility] Comment on above: Performed By: #### C RP, CMP, URIC, MG #### [facility] [address] [place] [address] Dr. Kush Call PROF 14(COMP METB)on 023 Albumin [Mass/Vol] 3.8 g/dL Normal 3.4-5.0 [facility] Comment on above: Performed By: #### C RP, CMP, URIC, MG #### [facility] [address] [place] [address] [address] Kush Call Albumin/Globulin [Mass ratio] 0.8 {ratio} Normal [facility] Comment on above: Performed By: #### C RP, CMP, URIC, MG #### [facility] [address] [place] [address] Dr. Kush Call ALP [Catalytic activity/Vol] 120 U/L Critically high 46-116 [facility] Comment on above: Performed By: #### C RP, CMP, URIC, MG #### [facility] [address] [place] [address] Dr. Kush Call ALT [Catalytic activity/Vol] 67 U/L Critically high 14-59 [facility] Comment on above: Performed By: #### C RP, CMP, URIC, MG #### [facility] [address] [place] [address] Dr. Kush Call Anion gap [Moles/Vol] 18.9 mmol/L Normal [facility] Comment on above: Performed By: #### C RP, CMP, URIC, MG #### [facility] [address] [place] [address] Dr. Kush Call AST [Catalytic activity/Vol] 68 U/L Critically high 15-37 [facility] Comment on above: Performed By: #### C RP, CMP, URIC, MG #### [facility] [address] [place] [address] Dr. Kush Call Bilirubin [Mass/Vol] 0.9 mg/dL Normal 0.2-1.0 [facility] Comment on above: Performed By: #### C RP, CMP, URIC, MG #### [facility] [address] [place] [address] Dr. Kush Call Calcium [Mass/Vol] 9.8 mg/dL Normal 8.5-10.1 [facility] Comment on above: Performed By: #### C RP, CMP, URIC, MG #### [facility] [address] [place] [address] Dr. Kush Call Chloride [Moles/Vol] 102 mmol/L Normal 98-107 [facility] Comment on above: Performed By: #### C RP, CMP, URIC, MG #### [facility] [address] [address] [address] Kush Call CO2 [Moles/Vol] 20.6 mmol/L Critically low 21.0-32.0 [facility] Comment on above: Performed By: #### C RP, CMP, URIC, MG #### [facility] [address] [place] [address] Dr. Kush Call Creatinine [Mass/Vol] 0.49 mg/dL Critically low 0.55-1.02 [facility] Comment on above: Performed By: #### C RP, CMP, URIC, MG #### [facility] [address] [place] [address] Dr. Kush Call EGFR-AF SPANISH >60 Normal >=60 [facility] Comment on above: Performed By: #### C RP, CMP, URIC, MG #### [facility] [address] [place] [address] Dr. Kush Call EGFR-NON AF SPANISH >60 Normal >=60 [facility] Comment on above: Performed By: #### C RP, CMP, URIC, MG #### [facility] [address] [place] [address] Dr. Kush Call Globulin (S) [Mass/Vol] 4.6 g/dL Normal [facility] Comment on above: Performed By: #### C RP, CMP, URIC, MG #### [facility] [address] [place] [address] Dr. Kush Call Glucose [Mass/Vol] 174 mg/dL Critically high 74-106 [facility] Comment on above: Performed By: #### C RP, CMP, URIC, MG #### [facility] [address] [place] [address] Dr. Kush Call Potassium [Moles/Vol] 3.5 mmol/L Normal 3.5-5.1 [facility] Comment on above: Performed By: #### C RP, CMP, URIC, MG #### [facility] [address] [place] [address] Dr. Kush Call Protein [Mass/Vol] 8.4 g/dL Critically high 6.4-8.2 [facility] Comment on above: Performed By: #### C RP, CMP, URIC, MG #### [facility] [address] [place] [address] Dr. Kush Call Sodium [Moles/Vol] 138 mmol/L Normal 136-145 [facility] Comment on above: Performed By: #### C RP, CMP, URIC, MG #### [facility] [address] [place] [address] Dr. Kush Call Urea nitrogen [Mass/Vol] 5.0 mg/dL Critically low 7.0-18.0 [facility] Comment on above: Performed By: #### C RP, CMP, URIC, MG #### [facility] [address] [place] [address] Dr. Kush Call Urea nitrogen/Creatinine [Mass ratio] 10.2 mg/mg Normal [facility] Comment on above: Performed By: #### C RP, CMP, URIC, MG #### [facility] [address] [place] [address] Dr. Kush Call URIC ACID SERUMon 09-19-2022 Urate [Mass/Vol] 10.1 mg/dL Critically high 2.6-6.0 [facility] Comment on above: Performed By: #### C RP, CMP, URIC, MG #### [facility] [address] [place] [address] Dr. Kush Call US BREAST RIGHT LIMITEDon US BREAST RIGHT LIMITED Patient: RICA STOUT Exam Date: 09/19/2022 : 1995 Gender:F Ordering : DANUTA ARAUJO [facility] Admission #: [id number] Family : DR MASSIMO BRIGHT . Order #: [id number] CLICK HERE TO VIEW EXAM RADIOLOGY REPORT PROCEDURE: ULTRASOUND BREAST RIGHT LIMITED COMPARISON: None. INDICATIONS: Breast lump TECHNIQUE: Breast ultrasound was performed, with evaluation focusing only on specific areas of concern. FINDINGS: DIAGNOSTIC CATEGORY 0--INCOMPLETE: NEED ADDITIONAL IMAGING EVALUATION. Ultrasound of the 12 o'clock position demonstrates a focal hypoechogenic mildly lobular heterogeneous oval mass measuring 2.0 x 1.3 x 1.8 cm. Bilateral mammogram is recommended for further evaluation RECOMMENDATIONS: ADDITIONAL MAMMOGRAPHIC VIEWS REQUIRED: BILATERAL BREASTS PLEASE NOTE: A NORMAL ULTRASOUND EXAMINATION DOES NOT EXCLUDE THE POSSIBILITY OF BREAST CANCER. A CLINICALLY SUSPICIOUS PALPABLE LUMP SHOULD BE BIOPSIED. Dictated by: Karyna Langford MD on 09/19/2022 at 08:53 Approved by: Karyna Langford MD on 09/19/2022 at 08:59 Normal [facility] CARDIAC LOWELL ADMITon 023 CK [Catalytic activity/Vol] 68 U/L Normal 26-192 [facility] Comment on above: Performed By: #### C IRINA BENOIT #### [facility] [address] [place] [address] Dr. Kush Call CK.MB [Mass/Vol] 141.43 ng/mL Critically high <=3.60 T [facility] Comment on above: Performed By: #### C IRINA BENOIT #### [facility] [address] [place] [address] Dr. Kush Call HSTROP <4.0 Normal 4.0-51.3 [facility] Comment on above: Result Comment: CUT- OFF POINTS HAVE BEEN ESTABLISHED BASED ON THE FOURTH UNIVERSAL DEFINITIONS OF MYOCARDIAL INFARCTION. THE UPPER REFERENCE LIMIT (URL) OF TROPONIN, DEFINED THE 99TH PERCENTILE OF cTnI DISTRIBUTION IN A REFERENCE POPULATION, HAS BEEN CONFIRMED THE DECISION THRESHOLD FOR AL DIAGNOSIS. Performed By: #### C IRINA BENOIT #### [facility] [address] [place] [address] Dr. Kush Call JOANNA 57 ng/mL Normal 9-82 [facility] Comment on above: Performed By: #### C IRINA BENOIT #### [facility] [address] [place] [address] Dr. Kush Call CBC AUTO DIFFon 09-13-2022 BASO # 0.1 103/ul Normal 0.0-0.1 [facility] Comment on above: Performed By: #### C KAYCEE, IRINA #### [facility] [address] [place] [address] Dr. Kush Call Basophils/100 WBC (Bld) 1.4 % Normal 0.2-2.0 [facility] Comment on above: Performed By: #### C IRINA BENOIT #### [facility] [address] [place] [address] Dr. Kush Call EO # 0.1 103/ul Normal 0.0-0.7 [facility] Comment on above: Performed By: #### C IRINA BENOIT #### [facility] [address] [place] [address] Dr. Kush Call Eosinophils/100 WBC (Bld) 1.3 % Normal 0.9-7.0 [facility] Comment on above: Performed By: #### C IRINA BENOIT #### [facility] [address] [place] [address] Dr. Kush Call Erythrocyte distribution width (RBC) [Ratio] 12.7 % Normal 11.0-15.0 [facility] Comment on above: Performed By: #### C IRINA BENOIT #### [facility] [address] [place] [address] Dr. Kush Call Hematocrit (Bld) [Volume fraction] 44.8 % Normal 36.0-48.0 [facility] Comment on above: Performed By: #### C IRINA BENOIT #### [facility] [address] [place] [address] Dr. Kush Call Hemoglobin (Bld) [Mass/Vol] 15.3 g/dL Normal 12.0-16.0 [facility] Comment on above: Performed By: #### C IRINA BENOIT #### [facility] [address] [place] [address] Dr. Kush Call IG # 0.22 10e3/ul Critically high 0.00-0.03 [facility] Comment on above: Performed By: #### C IRINA BENOIT #### [facility] [address] [place] [address] Dr. Kush Call IG % 2.2 % Critically high 0.0-0.5 [facility] Comment on above: Performed By: #### C IRINA BENOIT #### [facility] [address] [address] [address] Kush Call LYMPH # 2.7 103/ul Normal 1.2-3.8 [facility] Comment on above: Performed By: #### C KAYCEE, CMADM #### [facility] [address] [place] [address] Dr. Kush Call Lymphocytes/100 WBC (Bld) 26.6 % Normal 20.5-60.0 [facility] Comment on above: Performed By: #### C KAYCEE, CMADM #### [facility] [address] [place] [address] Dr. Kush Call MANUAL DIFF REQ NO Normal [facility] Comment on above: Performed By: #### C KAYCEE, CMADM #### [facility] [address] [place] [address] Dr. Kush Call MCH (RBC) [Entitic mass] 36.4 pg Critically high 26.7-34.0 [facility] Comment on above: Performed By: #### C KAYCEE, CMADM #### [facility] [address] [place] [address] Dr. Kush Call MCHC (RBC) [Mass/Vol] 34.2 g/dL Normal 29.9-35.2 [facility] Comment on above: Performed By: #### C KAYCEE, CMADM #### [facility] [address] [place] [address] Dr. Kush Call MCV (RBC) [Entitic vol] 106.7 fL Critically high 81.0-99 .0 [facility] Comment on above: Performed By: #### C KAYCEE, CMADM #### [facility] [address] [place] [address] Dr. Kush Call MONO # 0.6 103/ul Normal 0.3-0.8 [facility] Comment on above: Performed By: #### C KAYCEE, CMADM #### [facility] [address] [place] [address] Dr. Kush Call Monocytes/100 WBC (Bld) 5.6 % Normal 1.7-12.0 [facility] Comment on above: Performed By: #### C MP, CMADM #### [facility] [address] [address] [address] Kush Call NEUT # 6.4 103/ul Normal 1.4-6.5 [facility] Comment on above: Performed By: #### C MP, CMADM #### [facility] [address] [place] [address] Dr. Kush Call Neutrophils/100 WBC (Bld) 62.9 % Normal 43.0-75.0 [facility] Comment on above: Performed By: #### C MP, CMADM #### [facility] [address] [place] [address] Dr. Kush Call Platelet mean volume (Bld) [Entitic vol] 9.4 fL Critically low 9.5-13.5 [facility] Comment on above: Performed By: #### C MP, CMADM #### [facility] [address] [place] [address] Dr. Kush Call PLT 454 103/ul Critically high 150-450 [facility] Comment on above: Performed By: #### C MP, CMADM #### [facility] [address] [place] [address] Dr. Kush Call RBC 4.20 106/ul Normal 4.20-5.40 [facility] Comment on above: Performed By: #### C MP, CMADM #### [facility] [address] [place] [address] Dr. Kush Call WBC 10.2 103/ul Normal 4.0-11.0 [facility] Comment on above: Performed By: #### C MP, CMADM #### [facility] [address] [place] [address] HEAD WO CONon 09-13-2022 CT HEAD WO CON EXAMINATION: CT HEAD WO CON HISTORY: WEAKNESS COMPARISON: 09/28/2021 TECHNIQUE: CT examination of the head without IV contrast. Dose reduction techniques were achieved by using automated exposure control and/or adjustment of mA and/or kV according to patient size and/or use of iterative reconstruction technique. FINDINGS: No acute intracranial hemorrhage. No acute loss of garcia/white differentiation. The ventricles and sulci are normal in appearance. The osseous structures are unremarkable. No soft tissue abnormality identified. The paranasal sinuses and mastoid air cells are clear. IMPRESSION: 1. No acute intracranial abnormality. Electronically authenticated by: MILLIE NORMAN Date: 2022-09-13 12:29 Normal [facility] CTA CHEST WO W CONon 023 CTA CHEST WO W CON EXAMINATION: CTA LAZARA ST WO W CON HISTORY: Pulmonary embolism , elevated d-dimer, syncopal episode, difficulty with ambulation COMPARISON: No relevant comparison available. TECHNIQUE: Multi-planar CT images were created with IV contrast. Axial, Coronal, and Sagittal images. Dose reduction techniques were achieved by using automated exposure control and/or adjustment of mA and/or kV according to patient size and/or use of iterative reconstruction technique. 3-D reconstruction was performed on a separate workstation. FINDINGS: VASCULATURE: No pulmonary embolism or abnormal opacity. LUNGS: No visible pulmonary disease. PLEURA: No mass, effusion, or pneumothorax. EMERALD: No mass or adenopathy. MEDIASTINUM: No mass or adenopathy. CARDIAC: No enlargement, pericardial effusion, or pericardial thickening. AORTA: No aneurysm or dissection. CHEST WALL: 1.6 cm rounded cyst versus mass within right breast upper inner quadrant. BONES: No bone lesion or fracture. LIMITED ABDOMEN: No suspicious findings. Limited images of the upper abdomen. OTHER: Negative. IMPRESSION: 1. No pulmonary embolism. 2. No pulmonary infiltrates or suspicious lung findings. 3. Right breast upper inner quadrant 1.6 cm mass versus cyst. Follow-up nonemergent ultrasound evaluation is recommended. Electronically authenticated by: DAVID TRUONG Date: 2022-09-13 14:46 Normal [facility] D-DIMERon 09-13-2022 D-DIMER 2.94 mg/L FEU Critically high <=0.59 [facility] Comment on above: Performed By: #### C IRINA BENOIT #### [facility] [address] [place] [address] Dr. Kush Call D-DIMER COMMENTS SEE BELOW Normal [facility] Comment on above: Result Comment: Incr eases in D-Dimer concentration observed with thromboembolic events can be variable due to localization, size, and age of the thrombus. Therefore, a thromboembolic event cannot be diagnosed with certainty on the basis of the reference range. D-Dimers may also be elevated for a variety of disorders including: advanced age, , coronary disease, cancer, liver disease, infection, inflammation, hematoma, DIC, trauma, post-surgery, diabetes, thrombolytic or anticoagulant therapy, stress, and generalized hospitalization. Performed By: #### C MP, CMADM #### [facility] [address] [address] [address] Kush Call DRUG SCREEN RAPID (URINE)on 09-13-2022 AMP Negative Normal NEGATIVE [facility] Comment on above: Performed By: #### C RP, CMP, URIC, MG #### [facility] [address] [place] [address] Dr. Kush Call BAR Negative Normal NEGATIVE [facility] Comment on above: Performed By: #### C RP, CMP, URIC, MG #### [facility] [address] [place] [address] Dr. Kush Call BUP Negative Normal NEGATIVE [facility] Comment on above: Performed By: #### C RP, CMP, URIC, MG #### [facility] [address] [place] [address] Dr. Kush Call BZO Negative Normal NEGATIVE [facility] Comment on above: Performed By: #### C RP, CMP, URIC, MG #### [facility] [address] [place] [address] Dr. Kush Call BUTCH Negative Normal NEGATIVE [facility] Comment on above: Performed By: #### C RP, CMP, URIC, MG #### [facility] [address] [place] [address] Dr. Kush Call CUT-OFFS SEE BELOW Normal [facility] Comment on above: Result Comment: AMP (Amphetamine): 500ng/mL, BAR (Barbituates): 200 ng/mL, BZO (Benzodiazepines): 150 ng/mL, BUP (Buprenorphine): 10 ng/mL, BUTCH (Cocaine): 150 ng/mL, mAMP (Methamphetamine): 500 ng/mL, MTD (Methadone): 200 ng/mL, OPI (Opiates): 100 ng/mL, OXY (Oxycodone): 100 ng/mL, PCP (Phencyclidine): 25 ng/mL, PPX (Propoxyphene): 300 ng/mL, THC (Cannabinoids): 50 ng/mL, TCA (Trycyclic Antidepressants): 300 ng/mL Performed By: #### C RP, CMP, URIC, MG #### [facility] [address] [place] [address] Dr. Kush Call DRUG CUT HEADER DRUG CLASS TEST SYST EM CUT-OFF CONCENTRATIONS ARE FOLLOWS: Normal [facility] Comment on above: Performed By: #### C RP, CMP, URIC, MG #### [facility] [address] [place] [address] Dr. Kush Call mAMP Negative Normal NEGATIVE [facility] Comment on above: Performed By: #### C RP, CMP, URIC, MG #### [facility] [address] [place] [address] Dr. Kush Call MTD Negative Normal NEGATIVE [facility] Comment on above: Performed By: #### C RP, CMP, URIC, MG #### [facility] [address] [place] [address] Dr. Kush Call OPI Negative Normal NEGATIVE [facility] Comment on above: Performed By: #### C RP, CMP, URIC, MG #### [facility] [address] [place] [address] Dr. Kush Call OXY Negative Normal NEGATIVE [facility] Comment on above: Performed By: #### C RP, CMP, URIC, MG #### [facility] [address] [place] [address] Dr. Kush Call PCP Negative Normal NEGATIVE [facility] Comment on above: Performed By: #### C RP, CMP, URIC, MG #### [facility] [address] [place] [address] Dr. Kush Call PPX Negative Normal NEGATIVE [facility] Comment on above: Performed By: #### C RP, CMP, URIC, MG #### [facility] [address] [place] [address] Dr. Kush Call TCA Negative Normal NEGATIVE [facility] Comment on above: Performed By: #### C RP, CMP, URIC, MG #### [facility] [address] [place] [address] Dr. Kush Call THC Negative Normal NEGATIVE [facility] Comment on above: Performed By: #### C RP, CMP, URIC, MG #### [facility] [address] [address] [address] Kush Call ER URINE PROFILEon 3 Bilirubin Ql (U) Negative Normal NEGATIVE [facility] Comment on above: Performed By: #### C RP, CMP, URIC, MG #### [facility] [address] [place] [address] Dr. Kush Call Clarity (U) CLEAR Normal CLEAR [facility] Comment on above: Performed By: #### C RP, CMP, URIC, MG #### [facility] [address] [place] [address] Dr. Kush Call Color (U) LT. YELLOW Normal YELLOW [facility] Comment on above: Performed By: #### C RP, CMP, URIC, MG #### [facility] [address] [place] [address] Dr. Kush Call ERUAHD A micrscopic examina tion will be performed if indicated. Normal [facility] Comment on above: Performed By: #### C RP, CMP, URIC, MG #### [facility] [address] [place] [address] Dr. Kush Call Glucose Ql (U) Negative Normal NEGATIVE [facility] Comment on above: Performed By: #### C RP, CMP, URIC, MG #### [facility] [address] [place] [address] Dr. Kush Call Hemoglobin Ql (U) Negative Normal NEGATIVE [facility] Comment on above: Performed By: #### C RP, CMP, URIC, MG #### [facility] [address] [place] [address] Dr. Kush Call Ketones Ql (U) Negative Normal NEGATIVE [facility] Comment on above: Performed By: #### C RP, CMP, URIC, MG #### [facility] [address] [place] [address] Dr. Kush Call LEUKOCYTES Negative Normal NEGATIVE [facility] Comment on above: Performed By: #### C RP, CMP, URIC, MG #### [facility] [address] [place] [address] Dr. Kush Call Nitrite Ql (U) Negative Normal NEGATIVE [facility] Comment on above: Performed By: #### C RP, CMP, URIC, MG #### [facility] [address] [place] [address] Dr. Kush Call pH (U) 5.5 [pH] Normal 5-9 [facility] Comment on above: Performed By: #### C RP, CMP, URIC, MG #### [facility] [address] [place] [address] Dr. Kush Call SPEC GRAVITY <=1.005 Abnormal 1.005-<=1.02 5 [facility] Comment on above: Performed By: #### C RP, CMP, URIC, MG #### [facility] [address] [place] [address] Dr. Kush Call UA PROTEIN Negative Normal NEGATIVE/ TRACE [facility] Comment on above: Performed By: #### C RP, CMP, URIC, MG #### [facility] [address] [place] [address] Dr. Kush Call UR MICRO IND NOT INDICATED Normal [facility] Comment on above: Performed By: #### C RP, CMP, URIC, MG #### [facility] [address] [place] [address] Dr. Kush Call Urobilinogen Qn (U) 0.2 {Kirit'U}/dL Normal 0.2 - 1. 0 [facility] Comment on above: Performed By: #### C RP, CMP, URIC, MG #### [facility] [address] [place] [address] Dr. Kush Call LACTATE/LACTIC ACIDon 2022 Lactate [Moles/Vol] 3.0 mmol/L Critically high 0.4-1.9 [facility] Comment on above: Performed By: #### C RP, CMP, URIC, MG #### [facility] [address] [address] [address] Kush Call Lactate [Moles/Vol] 3.5 mmol/L Critically high 0.4-1.9 [facility] Comment on above: Performed By: #### C RP, CMP, URIC, MG #### [facility] [address] [address] [address] Kush Call PROF 14(COMP METB)on 023 Albumin [Mass/Vol] 3.3 g/dL Critically low 3.4-5.0 [facility] Comment on above: Performed By: #### C MP, CMADM #### [facility] [address] [address] [address] Kush Call Albumin/Globulin [Mass ratio] 0.8 {ratio} Normal [facility] Comment on above: Performed By: #### C MP, CMADM #### [facility] [address] [address] [address] Kush Call ALP [Catalytic activity/Vol] 111 U/L Normal 46-116 [facility] Comment on above: Performed By: #### C MP, CMADM #### [facility] [address] [address] [address] Kush Call ALT [Catalytic activity/Vol] 63 U/L Critically high 14-59 [facility] Comment on above: Performed By: #### C MP, CMADM #### [facility] [address] [address] [address] Kush Call Anion gap [Moles/Vol] 20.5 mmol/L Normal [facility] Comment on above: Performed By: #### C MP, CMADM #### [facility] [address] [address] [address] Kush Call AST [Catalytic activity/Vol] 64 U/L Critically high 15-37 [facility] Comment on above: Performed By: #### C MP, CMADM #### [facility] [address] [place] [address] Dr. Kush Call Bilirubin [Mass/Vol] 0.5 mg/dL Normal 0.2-1.0 [facility] Comment on above: Performed By: #### C MP, CMADM #### [facility] [address] [address] [address] Kush Call Calcium [Mass/Vol] 9.4 mg/dL Normal 8.5-10.1 [facility] Comment on above: Performed By: #### C MP, CMADM #### [facility] [address] [address] [address] Kush Call Chloride [Moles/Vol] 101 mmol/L Normal 98-107 [facility] Comment on above: Performed By: #### C MP, CMADM #### [facility] [address] [address] [address] Kush Call CO2 [Moles/Vol] 19.8 mmol/L Critically low 21.0-32.0 [facility] Comment on above: Performed By: #### C MP, CMADM #### [facility] [address] [address] [address] Kush Call Creatinine [Mass/Vol] 0.50 mg/dL Critically low 0.55-1.02 [facility] Comment on above: Performed By: #### C KAYCEE, CMADM #### [facility] [address] [address] [address] Kush Call EGFR-AF SPANISH >60 Normal >=60 [facility] Comment on above: Performed By: #### C MP, CMADM #### [facility] [address] [address] [address] Kush Call EGFR-NON AF SPANISH >60 Normal >=60 [facility] Comment on above: Performed By: #### C MP, CMADM #### [facility] [address] [address] [address] Kush Call Globulin (S) [Mass/Vol] 4.1 g/dL Normal [facility] Comment on above: Performed By: #### C MP, CMADM #### [facility] [address] [address] [address] Kush Call Glucose [Mass/Vol] 112 mg/dL Critically high 74-106 [facility] Comment on above: Performed By: #### C MP, CMADM #### [facility] [address] [place] [address] Dr. Kush Call Potassium [Moles/Vol] 3.3 mmol/L Critically low 3.5-5.1 [facility] Comment on above: Performed By: #### C MP, CMADM #### [facility] [address] [place] [address] Dr. Kush Call Protein [Mass/Vol] 7.4 g/dL Normal 6.4-8.2 [facility] Comment on above: Performed By: #### C KAYCEE, CMADM #### [facility] [address] [place] [address] Dr. Kush Call Sodium [Moles/Vol] 138 mmol/L Normal 136-145 [facility] Comment on above: Performed By: #### C KAYCEE, CMADM #### [facility] [address] [place] [address] Dr. Kush Call Urea nitrogen [Mass/Vol] 2.0 mg/dL Critically low 7.0-18.0 [facility] Comment on above: Performed By: #### C KAYCEE, XAVIERDM #### [facility] [address] [place] [address] Dr. Kush Call Urea nitrogen/Creatinine [Mass ratio] 4.0 mg/mg Normal [facility] Comment on above: Performed By: #### C KAYCEE, CMADM #### [facility] [address] [place] [address] Dr. Kush Call [facility] 2022 SED RATE 74 mm/hr Critically high <=20 [facility] Comment on above: Performed By: #### T SH #### [facility] [address] [place] [address] Dr. Kush Call TSHon 09-13-2022 TSH 2.552 uIU/mL Normal 0.358-3.740 [facility] Comment on above: Performed By: #### T SH #### [facility] [address] [place] [address] Dr. Kush Call VIT B12 AND FOLATEon 023 Cobalamin (Vitamin B12) [Mass/Vol] 700.0 pg/mL Normal 193.0-986.0 [facility] Comment on above: Performed By: #### C RP, CMP, URIC, MG #### [facility] [address] [place] [address] Dr. Kush Call FOLATE 1.60 ng/mL Critically low 8.60-58.90 [facility] Comment on above: Performed By: #### C RP, CMP, URIC, MG #### [facility] [address] [place] [address] Dr. Ksuh Call AMYLASEon 08-30-2022 Amylase [Catalytic activity/Vol] 28 U/L Normal 25-115 [facility] Comment on above: Performed By: #### C RP, CMP, URIC, MG #### [facility] [address] [place] [address] Dr. Kush Call CBC AUTO DIFFon 08-30-2022 BASO # 0.1 103/ul Normal 0.0-0.1 [facility] Comment on above: Performed By: #### T SH #### [facility] [address] [place] [address] Dr. Kush Call Basophils/100 WBC (Bld) 0.8 % Normal 0.2-2.0 [facility] Comment on above: Performed By: #### T SH #### [facility] [address] [place] [address] Dr. Kush Call EO # 0.0 103/ul Normal 0.0-0.7 [facility] Comment on above: Performed By: #### T SH #### [facility] [address] [place] [address] Dr. Kush Call Eosinophils/100 WBC (Bld) 0.5 % Critically low 0.9-7.0 [facility] Comment on above: Performed By: #### T SH #### [facility] [address] [place] [address] Dr. Kush Call Erythrocyte distribution width (RBC) [Ratio] 12.4 % Normal 11.0-15.0 [facility] Comment on above: Performed By: #### T SH #### [facility] [address] [place] [address] Dr. Kush Call Hematocrit (Bld) [Volume fraction] 39.8 % Normal 36.0-48.0 [facility] Comment on above: Performed By: #### T SH #### [facility] [address] [place] [address] Dr. Kush Call Hemoglobin (Bld) [Mass/Vol] 14.3 g/dL Normal 12.0-16.0 [facility] Comment on above: Performed By: #### T SH #### [facility] [address] [place] [address] Dr. Kush Call IG # 0.03 10e3/ul Normal 0.00-0.03 [facility] Comment on above: Performed By: #### T SH #### [facility] [address] [place] [address] Dr. Kush Call IG % 0.5 % Normal 0.0-0.5 [facility] Comment on above: Performed By: #### T SH #### [facility] [address] [place] [address] Dr. Kush Call LYMPH # 1.2 103/ul Normal 1.2-3.8 [facility] Comment on above: Performed By: #### T SH #### [facility] [address] [place] [address] Dr. Kush Call Lymphocytes/100 WBC (Bld) 18.3 % Critically low 20.5-60.0 [facility] Comment on above: Performed By: #### T SH #### [facility] [address] [place] [address] Dr. Kush Call MANUAL DIFF REQ NO Normal [facility] Comment on above: Performed By: #### T SH #### [facility] [address] [place] [address] Dr. Kush Call MCH (RBC) [Entitic mass] 37.2 pg Critically high 26.7-34.0 [facility] Comment on above: Performed By: #### T SH #### [facility] [address] [place] [address] Dr. Kush Call MCHC (RBC) [Mass/Vol] 35.9 g/dL Critically high 29.9-35.2 [facility] Comment on above: Performed By: #### T SH #### [facility] [address] [place] [address] Dr. Kush Call MCV (RBC) [Entitic vol] 103.6 fL Critically high 81.0-99 .0 [facility] Comment on above: Performed By: #### T SH #### [facility] [address] [place] [address] Dr. Kush Call MONO # 0.4 103/ul Normal 0.3-0.8 [facility] Comment on above: Performed By: #### T SH #### [facility] [address] [place] [address] Dr. Kush Call Monocytes/100 WBC (Bld) 6.1 % Normal 1.7-12.0 [facility] Comment on above: Performed By: #### T SH #### [facility] [address] [place] [address] Dr. Kush Call NEUT # 4.7 103/ul Normal 1.4-6.5 [facility] Comment on above: Performed By: #### T SH #### [facility] [address] [place] [address] Dr. Kush Call Neutrophils/100 WBC (Bld) 73.8 % Normal 43.0-75.0 [facility] Comment on above: Performed By: #### T SH #### [facility] [address] [place] [address] Dr. Kush Call Platelet mean volume (Bld) [Entitic vol] 9.2 fL Critically low 9.5-13.5 [facility] Comment on above: Performed By: #### T SH #### [facility] [address] [place] [address] Dr. Kush Call PLT 288 103/ul Normal 150-450 [facility] Comment on above: Performed By: #### T SH #### [facility] [address] [place] [address] Dr. Kush Call RBC 3.84 106/ul Critically low 4.20-5.40 [facility] Comment on above: Performed By: #### T SH #### [facility] [address] [place] [address] Dr. Kush Call WBC 6.4 103/ul Normal 4.0-11.0 [facility] Comment on above: Performed By: #### T SH #### [facility] [address] [place] [address] Dr. Kush Call ER URINE PROFILEon 3 Bilirubin Ql (U) Negative Normal NEGATIVE [facility] Comment on above: Performed By: #### U MICRO, ERUR #### [facility] [address] [place] [address] Dr. Kush Call Clarity (U) CLEAR Normal CLEAR [facility] Comment on above: Performed By: #### U MICRO, ERUR #### [facility] [address] [place] [address] Dr. Kush Call Color (U) LT. YELLOW Normal YELLOW [facility] Comment on above: Performed By: #### U MICRO, ERUR #### [facility] [address] [place] [address] Dr. Kush Call ERUCARYLD A micrscopic examina tion will be performed if indicated. Normal [facility] Comment on above: Performed By: #### U MICRO, ERUR #### [facility] [address] [place] [address] Dr. Kush Call Glucose Ql (U) Negative Normal NEGATIVE [facility] Comment on above: Performed By: #### U MICRO, ERUR #### [facility] [address] [place] [address] Dr. Kush Call Hemoglobin Ql (U) Negative Normal NEGATIVE [facility] Comment on above: Performed By: #### U MICRO, ERUR #### [facility] [address] [place] [address] Dr. Kush Call Ketones Ql (U) Negative Normal NEGATIVE [facility] Comment on above: Performed By: #### U MICRO, ERUR #### [facility] [address] [address] [address] Kush Call LEUKOCYTES SMALL Abnormal NEGATIVE [facility] Comment on above: Performed By: #### U MICRO, ERUR #### [facility] [address] [place] [address] Dr. Kush Call Nitrite Ql (U) Negative Normal NEGATIVE [facility] Comment on above: Performed By: #### U MICRO, ERUR #### [facility] [address] [place] [address] Dr. Kush Call pH (U) 7.0 [pH] Normal 5-9 [facility] Comment on above: Performed By: #### U MICRO, ERUR #### [facility] [address] [place] [address] Dr. Kush Call SPEC GRAVITY <=1.005 Abnormal 1.005-<=1.02 5 [facility] Comment on above: Performed By: #### U MICRO, ERUR #### [facility] [address] [place] [address] Dr. Kush Call UA PROTEIN Negative Normal NEGATIVE/ TRACE [facility] Comment on above: Performed By: #### U MICRO, ERUR #### [facility] [address] [place] [address] Dr. Kush Call UR MICRO IND INDICATED Normal [facility] Comment on above: Performed By: #### U MICRO, ERUR #### [facility] [address] [place] [address] Dr. Kush Call Urobilinogen Qn (U) 1.0 {Kirit'U}/dL Normal 0.2 - 1. 0 [facility] Comment on above: Performed By: #### U MICRO, ERUR #### [facility] [address] [place] [address] Dr. Kush Call LIPASEon 08-30-2022 Lipase [Catalytic activity/Vol] 40.0 U/L Critically low 73.0-393.0 [facility] Comment on above: Performed By: #### C RP, CMP, URIC, MG #### [facility] [address] [place] [address] Dr. Kush Call PROF 14(COMP METB)on 023 Albumin [Mass/Vol] 3.2 g/dL Critically low 3.4-5.0 [facility] Comment on above: Performed By: #### C RP, CMP, URIC, MG #### [facility] [address] [place] [address] Dr. Kush Call Albumin/Globulin [Mass ratio] 0.9 {ratio} Normal [facility] Comment on above: Performed By: #### C RP, CMP, URIC, MG #### [facility] [address] [place] [address] Dr. Kush Call ALP [Catalytic activity/Vol] 100 U/L Normal 46-116 [facility] Comment on above: Performed By: #### C RP, CMP, URIC, MG #### [facility] [address] [place] [address] Dr. Kush Call ALT [Catalytic activity/Vol] 66 U/L Critically high 14-59 [facility] Comment on above: Performed By: #### C RP, CMP, URIC, MG #### [facility] [address] [place] [address] Dr. Kush Call Anion gap [Moles/Vol] 14.6 mmol/L Normal [facility] Comment on above: Performed By: #### C RP, CMP, URIC, MG #### [facility] [address] [place] [address] Dr. Kush Call AST [Catalytic activity/Vol] 120 U/L Critically high 15-37 [facility] Comment on above: Performed By: #### C RP, CMP, URIC, MG #### [facility] [address] [place] [address] Dr. Kush Call Bilirubin [Mass/Vol] 1.1 mg/dL Critically high 0.2-1.0 [facility] Comment on above: Performed By: #### C RP, CMP, URIC, MG #### [facility] [address] [place] [address] Dr. Kush Call Calcium [Mass/Vol] 9.0 mg/dL Normal 8.5-10.1 [facility] Comment on above: Performed By: #### C RP, CMP, URIC, MG #### [facility] [address] [place] [address] Dr. Kush Call Chloride [Moles/Vol] 102 mmol/L Normal 98-107 [facility] Comment on above: Performed By: #### C RP, CMP, URIC, MG #### [facility] [address] [place] [address] Dr. Kush Call CO2 [Moles/Vol] 25.4 mmol/L Normal 21.0-32.0 [facility] Comment on above: Performed By: #### C RP, CMP, URIC, MG #### [facility] [address] [place] [address] Dr. Kush Call Creatinine [Mass/Vol] 0.62 mg/dL Normal 0.55-1.02 [facility] Comment on above: Performed By: #### C RP, CMP, URIC, MG #### [facility] [address] [place] [address] Dr. Kush Call EGFR-AF SPANISH >60 Normal >=60 [facility] Comment on above: Performed By: #### C RP, CMP, URIC, MG #### [facility] [address] [place] [address] Dr. Kush Call EGFR-NON AF SPANISH >60 Normal >=60 [facility] Comment on above: Performed By: #### C RP, CMP, URIC, MG #### [facility] [address] [place] [address] Dr. Kush Call Globulin (S) [Mass/Vol] 3.5 g/dL Normal [facility] Comment on above: Performed By: #### C RP, CMP, URIC, MG #### [facility] [address] [place] [address] Dr. Kush Call Glucose [Mass/Vol] 114 mg/dL Critically high 74-106 [facility] Comment on above: Performed By: #### C RP, CMP, URIC, MG #### [facility] [address] [place] [address] Dr. Kush Call Potassium [Moles/Vol] 3.0 mmol/L Critically low 3.5-5.1 [facility] Comment on above: Performed By: #### C RP, CMP, URIC, MG #### [facility] [address] [place] [address] Dr. Kush Call Protein [Mass/Vol] 6.7 g/dL Normal 6.4-8.2 [facility] Comment on above: Performed By: #### C RP, CMP, URIC, MG #### [facility] [address] [place] [address] Dr. Kush Call Sodium [Moles/Vol] 139 mmol/L Normal 136-145 [facility] Comment on above: Performed By: #### C RP, CMP, URIC, MG #### [facility] [address] [place] [address] Dr. Kush Call Urea nitrogen [Mass/Vol] 3.0 mg/dL Critically low 7.0-18.0 [facility] Comment on above: Performed By: #### C RP, CMP, URIC, MG #### [facility] [address] [place] [address] Dr. Kush Call Urea nitrogen/Creatinine [Mass ratio] 4.8 mg/mg Normal [facility] Comment on above: Performed By: #### C RP, CMP, URIC, MG #### [facility] [address] [place] [address] Dr. Kush Call URINE MICROSCOPIC ONLYon BACTERIA TRACE Abnormal NONE SEEN [facility] Comment on above: Performed By: #### U MICRO, ERUR #### [facility] [address] [place] [address] Dr. Kush Call Bacteria identified Cx Nom (U) NOT INDICATED Normal [facility] Comment on above: Performed By: #### U MICRO, ERUR #### [facility] [address] [place] [address] Dr. Kush Call CAST NONE SEEN Normal NONE SEEN [facility] Comment on above: Performed By: #### U MICRO, ERUR #### [facility] [address] [place] [address] Dr. Kush Call Crystals LM Nom (Urine sed) NONE SEEN Normal NONE SEEN [facility] Comment on above: Performed By: #### U MICRO, ERUR #### [facility] [address] [place] [address] Dr. Kush Call Epithelial cells LM Ql (Urine sed) RARE Normal NONE SEEN /RARE [facility] Comment on above: Performed By: #### U MICRO, ERUR #### [facility] [address] [place] [address] Dr. Kush Call MUCOUS NONE SEEN Normal NONE SEEN [facility] Comment on above: Performed By: #### U MICRO, ERUR #### [facility] [address] [place] [address] Dr. Kush Call RBC 0-2 Normal 0-2 [facility] Comment on above: Performed By: #### U MICRO, ERUR #### [facility] [address] [place] [address] Dr. Kush Call WBC 0-2 Abnormal NONE SEEN [facility] Comment on above: Performed By: #### U MICRO, ERUR #### [facility] [address] [place] [address] Dr. Kush Call CHLAMYDIA/GONOCOCCUS OKSANA ( AB/URINE/PAPon 08-25-2022 Chlamydia trachomatis, OKSANA Negative Normal Negative [facility] Comment on above: Performed By: #### C T/NGNA #### [facility] [address] [place] [address] Dr. Kush Call Neisseria gonorrhoeae, OKSANA Negative Normal Negative [facility] Comment on above: Performed By: #### C T/NGNA #### [facility] [address] [place] [address] Dr. Kush Call CULTURE URINEon 08-25-2022 CULTURE URINE Isolate 1 Klebsiella pneumoniae 100,000 cfu/mL of ORGANISM 1 Klebsiella pneumoniae ANTIBIOTIC M.I.C RX STATUS Ampicillin >=32 R F Ampicillin/Sulbactam 4 S F Piperacillin/Tazobactam <=4 S F Cefazolin <=4 S F Ceftazidime <=1 S F Ceftriaxone <=1 S F Ertapenem <=0.5 S F Imipenem <=0.25 S F Amikacin <=2 S F Gentamicin <=1 S F Tobramycin <=1 S F Ciprofloxacin <=0.25 S F Levofloxacin <=0.12 S F Nitrofurantoin 32 S F Trimethoprim/Sulfamethox azole <=20 S F Normal [facility] Comment on above: Performed By: #### C KAYCEE, CMADM #### [facility] [address] [place] [address] Dr. Kush Call VAGINITIS/VAGINOSIS DNA PROB Wander 08-24-2022 Tiffany species Positive Abnormal Negative [facility] Comment on above: Performed By: #### C KAYCEE, XAVIERDM #### [facility] [address] [place] [address] Dr. Kush Call Gardnerella vaginalis Positive Abnormal Negative [facility] Comment on above: Performed By: #### C KAYCEE, CMADM #### [facility] [address] [place] [address] Dr. Kush Call Trichomonas vaginalis Negative Normal Negative [facility] Comment on above: Performed By: #### C KAYCEE, XAVIERDM #### [facility] [address] [place] [address] Dr. Kush Call ECHOCARDIO M/2D COMPLETEon 0 11-06-2021 ECHOCARDIO M/2D COMPLETE Patient: RICA STOUT Exam Date: 11/06/2021 : 1995 Gender:F Ordering : KLARISSA CHABMERS Admission #: [id number] Family : DANUTA ARAUJO [facility] Order #: [id number] CLICK HERE TO VIEW EXAM ECHOCARDIOGRAM REPORT PROCEDURE: CARDIO PULMONARY ECHOCARDIO M/2D COMP INDICATIONS: Supraventricular tachycardia COMPARISON: None. DESCRIPTION: COMPLETE ECHOCARDIOGRAM Real-time transthoracic echocardiography with 2D, M-mode, spectral and color flow Doppler performed. QUALITY: Technical quality was good. LEFT VENTRICLE: Normal chamber size. Normal left ventricular wall thickness. No regional wall motion abnormalities. LV EF: Normal left ventricular ejection fraction, (>55%). DIASTOLIC: Normal diastolic function. ATRIAL SEPTUM: Inadequately seen. LEFT ATRIUM: Normal chamber size. RIGHT ATRIUM: Normal chamber size. RIGHT VENTRICLE: Normal chamber size. Normal right ventricular systolic function. TRICUSPID VALVE: Normal mobility and thickness. No stenosis with trivial regurgitation. No evidence of pulmonary hypertension. RVSP 23 mmHg MITRAL VALVE: Normal mobility and thickness. No mitral valve prolapse. No evidence of mitral valve stenosis. There is no mitral annular calcification. No mitral regurgitation. AORTIC VALVE: Normal trileaflet appearance. No visible sclerosis. Normal leaflet mobility. No evidence of aortic valve stenosis. No aortic regurgitation. AORTIC ROOT: Normal diameter and appearance. Ascending aorta is normal in size. PULMONIC VALVE: Normal thickness and mobility. No stenosis. Trivial regurgitation. PERICARDIUM: No evidence of pericardial effusion. IVC: Collapses with inspirations. CONCLUSION: Global left ventricular systolic function is normal; visually estimated ejection fraction is 55 to 60%. No regional wall motion abnormalities. Normal diastolic function. The right ventricle is normal in size and systolic function. No significant valvular abnormalities. Adult Echocardiography Procedure Report Left Ventricle LVEDD (3.7 - 5.6 cm): 4.20 cm LVESD (2.2 - 4.0 cm): 3.07 cm LVIVS thickness (0.6 - 1.2 cm): 7.31 mm LVPW thickness (0.5 - 1.0 cm): 9.28 mm e': 9.87 cm/s E - e': 5.70 LVOT Area (cm2): 3.46 cm2 LVOT Diameter 2.10 cm Left Atrium Left Atrium Systolic Dimension: 2.90 cm Mitral Valve MV E to A Ratio: 1 Mitral Valve A-Wave Peak Velocity: 56.30 cm/s Mitral Valve E-Wave Peak Velocity: 55.80 cm/s Deceleration Time: 158 ms Right Ventricle Aorta AO Root Diam: 3.00 cm Aortic Valve AoV Area (Peak Jackson): 2.52 cm2 Peak Velocity(Antegrade Flow): 91.50 cm/s Peak Gradient(Antegrade Flow): 3 mm[Hg] Tricuspid Valve Peak Velocity (Regurgitant Flow): 190.00 cm/s Pulmonic Valve Peak Velocity: 90.40 cm/s Peak Gradient: 3 mm[Hg] Right Atrium Dictated by: Aimee Wilkinson M.D. on 11/06/2021 at 15:49 Approved by: Aimee Wilkinson M.D. on 11/06/2021 at 15:53 Normal [facility] Hepatitis Acute [facility] 11-11 Hep A Ab,IgM Non-Reactive Normal [facility] Comment on above: Performed By: #### L IVP #### [facility] [address] [place] [address] Dr. [place], [place] [id number] Protective Service Specialist: Karyna Silva MD #### PHEP #### [address] [id number] Protective Service Specialist: Leonardo Sánchez MD Hep B Core Ab,IgM Non-Reactive Normal [facility] Comment on above: Performed By: #### L IVP #### [address] [place], [place] [id number] Protective Service Specialist: Karyna Silva MD #### PHEP #### [address] [address] Protective Service Specialist: Leonardo Sánchez MD Hep B Surf Ag Non-Reactive Normal [facility] Comment on above: Performed By: #### L IVP #### [address] [place], [place] [id number] Protective Service Specialist: Karyna Silva MD #### PHEP #### [address] [address] Protective Service Specialist: Leonardo Sánchez MD Hep C Ab Non-Reactive Normal [facility] Comment on above: Result Comment: The hepatitis C procedure used in our laboratory is a Chemiluminescent test specific for three recombinant HCV antigens. A negative anti-HCV result indicates that the antibodies to hepatitis C virus are not present at this time. Individuals with reactive anti-HCV should be considered infected and infectious until proven otherwise. Confirmation of all equivocal or reactive results is recommended by ordering HCV RNA by PCR. Performed By: #### L IVP #### [address] [place] [address] Protective Service Specialist: Karyna Silva MD #### PHEP #### [facility] [address] [place], [place] [id number] Protective Service Specialist: Leonardo Sánchez MD HCG, Quanton 11-10-2020 HCG, Quant <1 Normal <5 [facility] Comment on above: Result Comment: Non-preg premeno <=5 Postmeno <=8 Male <=3 If HCG results do not concur with clinical observations, additional testing to confirm results is recommended. Elevated results not associated with may be found in patients with other diseases such as tumors of the germ cells (testis, ovaries, etc.), bladder, pancreas, stomach, lungs, and liver. Performed By: #### B HCG #### [facility] [address] [place] [address] Protective Service Specialist: Karyna Silva MD HCG, Quantitative, Ordered By: Massimo Bright on 11-10-2020 hCG Quant <1 <5 IU/[facility] Comment on above: Non-preg premeno <=5 Postmeno <=8 Male <=3 If HCG results do not concur with clinical observations, additional testing to confirm results is recommended. Elevated results not associated with may be found in patients with other diseases such as tumors of the germ cells (testis, ovaries, etc.), bladder, pancreas, stomach, lungs, and liver. Hepatic Function PanelOrdere d By: Kalia Bender on 11-10-2020 Albumin [Mass/Vol] 4.6 g/dL 3.5 - 5.2 g/dL [facility] Phone: Albumin/Globulin [Mass ratio] 1.5 {ratio} [facility] Phone: ALP (Bld) [Catalytic activity/Vol] 95 U/L 35 - 104 U/L [facility] Phone: ALT [Catalytic activity/Vol] 54 U/L High 5 - 33 U/L [facility] Phone: AST [Catalytic activity/Vol] 62 U/L High <32 [facility] Phone: Bilirubin [Mass/Vol] 0.93 mg/dL 0.3 - 1 .2 mg/dL [facility] Phone: Bilirubin, Indirect 0.72 mg/dL 0.00 - 1 .00 mg/dL [facility] Phone: Bilirubin.indirect [Mass/Vol] 0.21 mg/dL <0.31 [facility] Phone: Free PSA/Total PSA [Mass fraction] 7.6 g/dL 6.4 - 8.3 g/dL [facility] Phone: Globulin NOT REPORTED 1.5 - 3.8 g/dL [facility] Phone: Interpretation and review of laboratory results Abnormal [facility] Phone: Hepatitis Panel, AcuteOrdere d By: Kalia Bender on 11-10-2020 HAV IgM IA Qn (S) Non-Reactive NONREACTIVE [facility] Phone: Hep B Core Ab, IgM Non-Reactive NONREACTIVE [employer] Phone: Hepatitis B Surface Ag Non-Reactive NONREACTIVE [facility] Phone: Hepatitis C Ab Non-Reactive NONREACTIVE [facility] Phone: Comment on above: The hepatitis C procedure used in our laboratory is a Chemiluminescent test specific for three recombinant HCV antigens. A negative anti-HCV result indicates that the antibodies to hepatitis C virus are not present at this time. Individuals with reactive anti-HCV should be considered infected and infectious until proven otherwise. Confirmation of all equivocal or reactive results is recommended by ordering HCV RNA by PCR. Liver Profileon 11-10-2020 Albumin [Mass/Vol] 4.6 g/dL Normal 3.5-5.2 [facility] Comment on above: Performed By: #### L IVP #### [facility] [address] [place], [place] [id number] Protective Service Specialist: Karyna Silva MD #### PHEP #### [address] [address] Protective Service Specialist: Leonardo Sánchez MD Albumin/Glob Ratio 1.5 Normal 1.0-2.5 [facility] Comment on above: Performed By: #### L IVP #### [facility] [address] [place] [address] Dr[address] [place], [place] [id number] Protective Service Specialist: Karyna Silva MD #### PHEP #### [address] [address] Protective Service Specialist: Leonardo Sánchez MD Alkaline Phos 95 U/L Normal 35-104 [facility] Comment on above: Performed By: #### L IVP #### [facility] [address] [place] [address] Dr. [place], [place] [id number] Protective Service Specialist: Karyna Silva MD #### PHEP #### [address] [address] Protective Service Specialist: Leonardo Sánchez MD ALT [Catalytic activity/Vol] 54 U/L High 5-33 [facility] Comment on above: Performed By: #### L IVP #### [facility] [address] [place] [address] Dr. [place], [place] [id number] Protective Service Specialist: Karyna Silva MD #### PHEP #### [address] [address] Protective Service Specialist: Leonardo Sánchez MD AST [Catalytic activity/Vol] 62 U/L High <32 [facility] Comment on above: Performed By: #### L IVP #### [facility] [address] [place] [address] [place] [address] Protective Service Specialist: Karyna Silva MD #### PHEP #### [address] [place] [address] Protective Service Specialist: Leonardo Sánchez MD Bilirubin [Mass/Vol] 0.93 mg/dL Normal 0.3-1.2 [facility] Comment on above: Performed By: #### L IVP #### [facility] [address] [place] [address] Dr. [place], [place] [phone] Protective Service Specialist: Karyna Silva MD #### PHEP #### [address] [address] Protective Service Specialist: Leonardo Sánchez MD Bilirubin, Indirect 0.72 mg/dL Normal 0.00-1.00 [facility] Comment on above: Performed By: #### L IVP #### [address] [place], [place] 6[address]83 Protective Service Specialist: Karyna Silva MD #### PHEP #### [address] [address] Protective Service Specialist: Leonardo Sánchez MD Bilirubin.indirect [Mass/Vol] 0.21 mg/dL Normal <0.31 [facility] Comment on above: Performed By: #### L IVP #### [address] [place], [place] [address]83 Protective Service Specialist: Karyna Silva MD #### PHEP #### [address] [address] Protective Service Specialist: Leonardo Sánchez MD Protein [Mass/Vol] 7.6 g/dL Normal 6.4-8.3 [facility] Comment on above: Performed By: #### L IVP #### [facility] [address] [place] [address] Dr. [place], [place] [id number] Protective Service Specialist: Karyna Silva MD #### PHEP #### [address] [address] Protective Service Specialist: Leonardo Sánchez MD Globulin Fraction NOT REPORTED Normal 1.5-3.8 [facility] Comment on above: Performed By: #### L IVP #### [address] [place] [phone] ( Protective Service Specialist: Karyna Silva MD #### PHEP #### [address] [phone] Protective Service Specialist: Leonardo Sánchez MD CBCon 04-06-2020 Erythrocyte distribution width (RBC) [Ratio] 11.8 % Normal 11.8-14.4 [facility] Comment on above: Performed By: #### C P, CBC #### [address] [place] [phone] ( Protective Service Specialist: Amilcar Wing MD #### HIVCMB #### [address] [address] Protective Service Specialist: Leonardo Sánchez MD Hematocrit (Bld) [Volume fraction] 43.4 % Normal 36.3-47.1 [facility] Comment on above: Performed By: #### C P, CBC #### [address] [place] [address] ( Protective Service Specialist: Amilcar Wing MD #### HIVCMB #### [address] [address] Protective Service Specialist: Leonardo Sánchez MD Hemoglobin (Bld) [Mass/Vol] 14.4 g/dL Normal 11.9-15.1 [facility] Comment on above: Performed By: #### C P, CBC #### [address] [place] [phone] ( Protective Service Specialist: Amilcar Wing MD #### HIVCMB #### [address] [address] Protective Service Specialist: Leonardo Sánchez MD MCH (RBC) [Entitic mass] 33.0 pg Normal 25.2-33.5 [facility] Comment on above: Performed By: #### C P, CBC #### [facility] [address] [place] [address] Protective Service Specialist: Amilcar Wing MD #### HIVCMB #### [place] [address] [place], [place] 6[address] Protective Service Specialist: Leonardo Sánchez MD MCHC (RBC) [Mass/Vol] 33.2 g/dL Normal 28.4-34.8 [facility] Comment on above: Performed By: #### C P, CBC #### [address] [place] [address] Protective Service Specialist: Amilcar Wing MD #### HIVCMB #### [address] [place], [place] 1201508 Protective Service Specialist: Leonardo Sánchez MD MCV (RBC) [Entitic vol] 99.3 fL Normal 82.6-102.9 [facility] Comment on above: Performed By: #### C P, CBC #### [address] [place] [address] Protective Service Specialist: Amilcar Wing MD #### HIVCMB #### [address] [place], [place] 9876608 Protective Service Specialist: Leonardo Sánchez MD NRBC Automated 0.0 per 100 WBC Normal 0.0 [facility] Comment on above: Performed By: #### C P, CBC #### [address] [place] [address] Protective Service Specialist: Amilcar Wing MD #### HIVCMB #### [address] [place], [place] 3266208 Protective Service Specialist: Leonardo Sánchez MD Platelet mean volume (Bld) [Entitic vol] 9.4 fL Normal 8.1-13.5 [facility] Comment on above: Performed By: #### C P, CBC #### [facility] [address] [place], [place] 8[address]83 Protective Service Specialist: Amilcar Wing MD #### HIVCMB #### [address] [place], [place] 3536008 Protective Service Specialist: Leonardo Sánchez MD Platelets (Bld) [#/Vol] 238 10*3/uL Normal 138-453 [facility] Comment on above: Performed By: #### C P, CBC #### [facility] [address] [place], [place] [id number] Protective Service Specialist: Amilcar Wing MD #### HIVCMB #### [address] [phone] Protective Service Specialist: Leonardo Sánchez MD RBC (Bld) [#/Vol] 4.37 10*6/uL Normal 3.95-5.11 [facility] Comment on above: Performed By: #### C P, CBC #### [facility] [address] [place], [place] [phone] Protective Service Specialist: Amilcar Wing MD #### HIVCMB #### [address] [place] [address] Protective Service Specialist: Leonardo Sánchez MD WBC (Bld) [#/Vol] 7.5 10*3/uL Normal 3.5-11.3 [facility] Comment on above: Performed By: #### C P, CBC #### [facility] [address] [place], [place] 8322383 Protective Service Specialist: Amilcar Wing MD #### HIVCMB #### [facility] [address] [place] [address] Protective Service Specialist: Leonardo Sánchez MD Erythrocyte distribution width (RBC) [Ratio] 11.8 % 11.8 - 14.4 % [place], [place] Hematocrit (Bld) [Volume fraction] 43.4 % 36.3 - 47.1 % [place] Hemoglobin (Bld) [Mass/Vol] 14.4 g/dL 11.9 - 15.1 g/dL [place] MCH (RBC) [Entitic mass] 33.0 pg 25.2 - 33.5 pg [place] MCHC (RBC) [Mass/Vol] 33.2 g/dL 28.4 - 34.8 g/dL [place] MCV (RBC) [Entitic vol] 99.3 fL 82.6 - 102.9 fL [place] Platelet mean volume (Bld) [Entitic vol] 9.4 fL 8.1 - 13.5 fL [place] Platelets (Bld) [#/Vol] 238 10*3/uL [place] RBC (Bld) [#/Vol] 4.37 10*6/uL 3.95 - 5.1 1 m/uL [place] WBC (Bld) [#/Vol] 7.5 10*3/uL [place] WBC (Bld) [#/Vol] 0.0 10*3/uL 0.0 per 10 0 WBC [place], [place] Comp Metabolic Profon 2019 (cont.) Normal [facility] Comment on above: Result Comment: Aver age GFR for 20-29 years old: 116 mL/min/1.73sq m Chronic Kidney Disease: <60 mL/min/1.73sq m Kidney failure: <15 mL/min/1.73sq m eGFR calculated using average adult body mass. Additional eGFR calculator available at: http://www.[employer]multiple_crcl_2011.htm Performed By: #### C P, CBC #### [facility] [address] [place] [address] Protective Service Specialist: Amilcar Wing MD #### HIVCMB #### [address] [address] Protective Service Specialist: Leonardo Sánchez MD Albumin [Mass/Vol] 4.3 g/dL Normal 3.5-5.2 [facility] Comment on above: Performed By: #### C P, CBC #### [facility] [address] [place] [phone] Protective Service Specialist: Amilcar Wing MD #### HIVCMB #### [address] [address] Protective Service Specialist: Leonardo Sánchez MD Albumin/Glob Ratio 1.5 Normal 1.0-2.5 [facility] Comment on above: Performed By: #### C P, CBC #### [address] [place] [phone] ( Protective Service Specialist: Amilcar Wing MD #### HIVCMB #### [address] [address] Protective Service Specialist: Leonardo Sánchez MD Alkaline Phos 68 U/L Normal 35-104 [facility] Comment on above: Performed By: #### C P, CBC #### [facility] [address] [place] [address] Dr. [place] [phone] Protective Service Specialist: Amilcar Wing MD #### HIVCMB #### [address] [address] Protective Service Specialist: Leonardo Sánchez MD ALT [Catalytic activity/Vol] 48 U/L High 5-33 [facility] Comment on above: Performed By: #### C P, CBC #### [facility] [address] [place] [address] Dr. [place], [place] 9523183 Protective Service Specialist: Amilcar Wing MD #### HIVCMB #### [address] [address] Protective Service Specialist: Leonardo Sánchez MD Anion gap [Moles/Vol] 10 mmol/L Normal 9-17 [facility] Comment on above: Performed By: #### C P, CBC #### [facility] [address] [place], [place] 028[address]83 Protective Service Specialist: Amilcar Wing MD #### HIVCMB #### [address] [place] [address] Protective Service Specialist: Leonardo Sánchez MD AST [Catalytic activity/Vol] 30 U/L Normal <32 [facility] Comment on above: Performed By: #### C P, CBC #### [facility] [address] [place] [address] Protective Service Specialist: Amilcar Wing MD #### HIVCMB #### [address] [address] Protective Service Specialist: Leonardo Sánchez MD Bilirubin [Mass/Vol] 0.89 mg/dL Normal 0.3-1.2 [facility] Comment on above: Performed By: #### C P, CBC #### [address] [place], [place] 3552783 Protective Service Specialist: Amilcar Wing MD #### HIVCMB #### [address] [address] Protective Service Specialist: Leonardo Sánchez MD BUN/CRE Ratio 10 Normal 9-20 [facility] Comment on above: Performed By: #### C P, CBC #### [address] [place] [address] Protective Service Specialist: Amilcar Wing MD #### HIVCMB #### [address] [place] [address] Protective Service Specialist: Leonardo Sánchez MD Calcium [Mass/Vol] 9.5 mg/dL Normal 8.6-10.4 [facility] Comment on above: Performed By: #### C P, CBC #### [address] [place], [place] 5[address]83 Protective Service Specialist: Amilcar Wing MD #### HIVCMB #### [address] [address] Protective Service Specialist: Leonardo Sánchez MD Chloride [Moles/Vol] 103 mmol/L Normal 98-107 [facility] Comment on above: Performed By: #### C P, CBC #### [facility] [address] [place], [place] 108[address]83 Protective Service Specialist: Amilcar Wing MD #### HIVCMB #### [address] [address] Protective Service Specialist: Leonardo Sánchez MD CO2 [Moles/Vol] 22 mmol/L Normal 20-31 [facility] Comment on above: Performed By: #### C P, CBC #### [facility] [address] [place] [address] Dr. [place] [phone] Protective Service Specialist: Amilcar Wing MD #### HIVCMB #### [address] [address] Protective Service Specialist: Leonardo Sánchez MD Creatinine [Mass/Vol] 0.69 mg/dL Normal 0.50-0.90 [facility] Comment on above: Performed By: #### C P, CBC #### [facility] [address] [place] [phone] Protective Service Specialist: Amilcar Wing MD #### HIVCMB #### [address] [address] Protective Service Specialist: Leonardo Sánchez MD GFR, Amer >60 Normal >60 [facility] Comment on above: Performed By: #### C P, CBC #### [facility] [address] [place], [place] [phone] Protective Service Specialist: Amilcar Wing MD #### HIVCMB #### [address] [address] Protective Service Specialist: Leonardo Sánchez MD GFR,non Amer >60 Normal >60 [facility] Comment on above: Performed By: #### C P, CBC #### [facility] [address] [place] [address] Dr. [place], [place] 5619983 Protective Service Specialist: Amilcar iWng MD #### HIVCMB #### [address] [address] Protective Service Specialist: Leonardo Sánchez MD Glucose [Mass/Vol] 106 mg/dL High 70-99 [facility] Comment on above: Performed By: #### C P, CBC #### [facility] [address] [place] [address] Dr. [place], [place] 565[address]83 Protective Service Specialist: Amilcar Wing MD #### HIVCMB #### [address] [address] Protective Service Specialist: Leonardo Sánchez MD Potassium [Moles/Vol] 4.3 mmol/L Normal 3.7-5.3 [facility] Comment on above: Performed By: #### C P, CBC #### [address] [place], [place] 800[address]83 Protective Service Specialist: Amilcar Wing MD #### HIVCMB #### [address] [address] Protective Service Specialist: Leonardo Sánchez MD Protein [Mass/Vol] 7.1 g/dL Normal 6.4-8.3 [facility] Comment on above: Performed By: #### C P, CBC #### [address] [place], [place] 105[address]83 Protective Service Specialist: Amilcar Wing MD #### HIVCMB #### [address] [address] Protective Service Specialist: Leonardo Sánchez MD Sodium [Moles/Vol] 135 mmol/L Normal 135-144 [facility] Comment on above: Performed By: #### C P, CBC #### [facility] [address] [place] [address] Protective Service Specialist: Amilcar Wing MD #### HIVCMB #### [address] [place], [place] 2800208 Protective Service Specialist: Leonardo Sánchez MD Staging: Normal [facility] Comment on above: Result Comment: Stag e 1: Some kidney damage normal GFR Stage 2: Mild kidney damage GFR 60-89 Stage 3: Moderate kidney damage GFR 30-59 Stage 4: Severe kidney damage GFR 15-29 Stage 5: Severe kidney damage GFR <15 ESRD - chronic treatment by dialysis or transplant Performed By: #### C P, CBC #### [facility] [address] [place] [address] [place] [address] Protective Service Specialist: Amilcar Wing MD #### HIVCMB #### [address] [place], [place] [phone] Protective Service Specialist: Leonardo Sánchez MD Urea nitrogen [Mass/Vol] 7 mg/dL Normal 6-20 [facility] Comment on above: Performed By: #### C P, CBC #### [facility] [address] [place] [address] [place], [place] 423[address]83 Protective Service Specialist: Amilcar Wing MD #### HIVCMB #### [address] [id number] Protective Service Specialist: Leonardo Sánchez MD Comprehensive Metabolic Pane [facility] 04-06-2020 Albumin [Mass/Vol] 4.3 g/dL 3.5 - 5.2 g/dL [place] Albumin/Globulin [Mass ratio] 1.5 {ratio} [place] ALP [Catalytic activity/Vol] 68 U/L 35 - 104 U/L [place] ALT [Catalytic activity/Vol] 48 U/L High 5 - 33 U/L [place] Anion gap [Moles/Vol] 10 mmol/L 9 - 17 mmol/L [place] AST [Catalytic activity/Vol] 30 U/L <32 [place] Bilirubin Ql (U) 0.89 mg/dL 0.3 - 1.2 mg/dL [place] Bun/Cre Ratio 10 [place] Calcium [Mass/Vol] 9.5 mg/dL 8.6 - 10. 4 mg/dL [place] Chloride [Moles/Vol] 103 mmol/L 98 - 10 7 mmol/L [place] CO2 [Moles/Vol] 22 mmol/L 20 - 31 mmol/L [place] Creatinine [Mass/Vol] 0.69 mg/dL 0.5 - 0.9 mg/dL [place] GFR >60 >60 mL/min [place] GFR Non- >60 >60 mL/min [place] Glucose [Mass/Vol] 106 mg/dL High 70 - 99 mg/dL [place] Interpretation and review of laboratory results Abnormal [place] Potassium [Moles/Vol] 4.3 mmol/L 3.7 - 5.3 mmol/L [place] Protein [Mass/Vol] 7.1 g/dL 6.4 - 8.3 g/dL [place] Sodium [Moles/Vol] 135 mmol/L 135 - 144 mmol/L [place] Urea nitrogen [Mass/Vol] 7 mg/dL 6 - 20 mg/dL [place] HIV Ag/Abon 04-06-2020 HIV Ag/Ab Non-Reactive Normal NR [facility] Comment on above: Result Comment: No l aboratory evidence of HIV infection. If acute HIV infection is suspected, consider testing for HIV-1 RNA. Performed By: #### C P, CBC #### [facility] [address] [place] [place] [address] Protective Service Specialist: Amilcar Wing MD #### HIVCMB #### [facility] [address] [place], [place] [phone] Protective Service Specialist: Leonardo Sánchez MD HIV Screenon 04-06-2020 HIV Ag/Ab NONREACTIVE NONREACTIVE [place] Comment on above: No laboratory eviden ce of HIV infection. If acute HIV infection is suspected, consider testing for HIV-1 RNA. Metabolic Panelon 04-06-2020 GFR/1.73 sq M predicted among non-blacks MDRD (S/P/Bld) [Vol rate/Area] [place] Comment on above: Stage 1: Some kidney damage normal GFR Stage 2: Mild kidney damage GFR 60-89 Stage 3: Moderate kidney damage GFR 30-59 Stage 4: Severe kidney damage GFR 15-29 Stage 5: Severe kidney damage GFR <15 ESRD - chronic treatment by dialysis or transplant Average GFR for 20-2 9 years old: 116 mL/min/1.73sq m Chronic Kidney Disease: <60 mL/min/1.73sq m Kidney failure: <15 mL/min/1.73sq m eGFR calculated using average adult body mass. Additional eGFR calculator available at: http://www.[employer]/multiple_crcl_2012.htm Vital Signs Date Time Vital Sign Value Performing Clinician Oseii alpesh 07-03-2023 09:02-0500 Body temperature 97.1 [degF] ATHLETIC EQUIPMENT MANAGER-C Danuta Araujo Work Phone: [facility] 07-03-2023 09:02-0500 Body weight 63.04 kg ATHLETIC EQUIPMENT MANAGER-Mikel Araujo Work Phone: [facility] 07-03-2023 09:02-0500 Diastolic blood pressure 81 mm[Hg] ATHLETIC EQUIPMENT MANAGER-C Danuta Araujo Work Phone: [facility] 07-03-2023 09:02-0500 Heart rate 111 /min ATHLETIC EQUIPMENT MANAGER-C Danuta Araujo Work Phone: [facility] 07-03-2023 09:02-0500 Respiratory rate 16 /min ATHLETIC EQUIPMENT MANAGER-Mikel Araujo Work Phone: [facility] 07-03-2023 09:02-0500 SaO2% (BldA) [Mass fraction] 99 % ATHLETIC EQUIPMENT MANAGER-Mikel Araujo Work Phone: [facility] 07-03-2023 09:02-0500 Systolic blood pressure 120 mm[Hg] ATHLETIC EQUIPMENT MANAGER-C Dantua Van Work Phone: [facility] 06-12-2023 10:40-0500 Diastolic blood pressure 79 mm[Hg] ATHLETIC EQUIPMENT MANAGER-C Danuta Van Work Phone: [facility] 06-12-2023 10:40-0500 Heart rate 102 /min ATHLETIC EQUIPMENT MANAGER-C Danuta Van Work Phone: [facility] 06-12-2023 10:40-0500 Respiratory rate 20 /min ATHLETIC EQUIPMENT MANAGER-C Danuta Van Work Phone: [facility] 06-12-2023 10:40-0500 SaO2% (BldA) [Mass fraction] 98 % ATHLETIC EQUIPMENT MANAGER-C Danuta Van Work Phone: [facility] 06-12-2023 10:40-0500 Systolic blood pressure 116 mm[Hg] ATHLETIC EQUIPMENT MANAGER-C Danuta Van Work Phone: [facility] 06-12-2023 09:21-0500 Body height 162.56 cm ATHLETIC EQUIPMENT MANAGER-C Danuta Van Work Phone: [facility] 06-12-2023 09:21-0500 Body temperature 98.7 [degF] ATHLETIC EQUIPMENT MANAGER-C Danuta Van Work Phone: [facility] 06-12-2023 09:21-0500 Body weight 60.32 kg ATHLETIC EQUIPMENT MANAGER-C Danuta Van Work Phone: [facility] 05-30-2023 14:24-0500 Body temperature 98.1 [degF] ATHLETIC EQUIPMENT MANAGER-C Danuta Van Work Phone: [facility] 05-30-2023 14:24-0500 Body weight 61.91 kg ATHLETIC EQUIPMENT MANAGER-C Danuta Van Work Phone: [facility] 05-30-2023 14:24-0500 Diastolic blood pressure 80 mm[Hg] ATHLETIC EQUIPMENT MANAGER-C Danuta Van Work Phone: [facility] 05-30-2023 14:24-0500 Heart rate 121 /min ATHLETIC EQUIPMENT MANAGER-C Danuta Araujo Work Phone: [facility] 05-30-2023 14:24-0500 Respiratory rate 20 /min ATHLETIC EQUIPMENT MANAGER-C Danuta Araujo Work Phone: [facility] 05-30-2023 14:24-0500 SaO2% (BldA) [Mass fraction] 100 % ATHLETIC EQUIPMENT MANAGER-C Danuta Araujo Work Phone: [facility] 05-30-2023 14:24-0500 Systolic blood pressure 116 mm[Hg] ATHLETIC EQUIPMENT MANAGER-C Danuta Araujo Work Phone: [facility] 05-30-2023 14:11-0500 Body height 162.56 cm ATHLETIC EQUIPMENT MANAGER-C Danuta Araujo Work Phone: [facility] 05-23-2023 14:08-0400 Body height 162.6 cm Arsh Orozco MD Work Phone: [facility] 05-23-2023 14:08-0400 Body weight 61.24 kg Arsh Orozco MD Work Phone: [facility] 05-23-2023 14:08-0400 Diastolic blood pressure 72 mm[Hg] Arsh Orozco MD Work Phone: [facility] 05-23-2023 14:08-0400 Heart rate 104 /min Arsh Orozco MD Work Phone: [facility] 05-23-2023 14:08-0400 Respiratory rate 16 /min Arsh Orozco MD Work Phone: [facility] 05-23-2023 14:08-0400 SaO2% (BldA) [Mass fraction] 100 % Arsh Orozco MD Work Phone: [facility] 05-23-2023 14:08-0400 Systolic blood pressure 105 mm[Hg] Arsh Orozco MD Work Phone: [facility] 04-03-2023 06:41-0400 Body temperature 98.4 [degF] ATHLETIC EQUIPMENT MANAGER-C Danuta Van Work Phone: [facility] 04-03-2023 06:41-0400 Diastolic blood pressure 67 mm[Hg] ATHLETIC EQUIPMENT MANAGER-C Danuta Van Work Phone: [facility] 04-03-2023 06:41-0400 Heart rate 107 /min ATHLETIC EQUIPMENT MANAGER-C Danuta Van Work Phone: [facility] 04-03-2023 06:41-0400 Respiratory rate 16 /min ATHLETIC EQUIPMENT MANAGER-C Danuta Van Work Phone: [facility] 04-03-2023 06:41-0400 SaO2% (BldA) [Mass fraction] 98 % ATHLETIC EQUIPMENT MANAGER-C Danuta Van Work Phone: [facility] 04-03-2023 06:41-0400 Systolic blood pressure 108 mm[Hg] ATHLETIC EQUIPMENT MANAGER-C Danuta Van Work Phone: [facility] 04-02-2023 12:51-0400 Body height 162.56 cm ATHLETIC EQUIPMENT MANAGER-C Danuta Van Work Phone: [facility] 03-31-2023 04:20-0400 Body weight 60.9 kg ATHLETIC EQUIPMENT MANAGER-C Danuta Van Work Phone: [facility] 03-27-2023 11:48-0400 Body temperature 97.8 [degF] ATHLETIC EQUIPMENT MANAGER-C Danuta Van Work Phone: [facility] 03-27-2023 11:48-0400 Diastolic blood pressure 92 mm[Hg] ATHLETIC EQUIPMENT MANAGER-C Danuta Van Work Phone: [facility] 03-27-2023 11:48-0400 Heart rate 84 /min ATHLETIC EQUIPMENT MANAGER-C Danuta Van Work Phone: [facility] 03-27-2023 11:48-0400 Respiratory rate 13 /min ATHLETIC EQUIPMENT MANAGER-C Danuta Van Work Phone: [facility] 03-27-2023 11:48-0400 SaO2% (BldA) [Mass fraction] 100 % ATHLETIC EQUIPMENT MANAGER-C Danuta Van Work Phone: [facility] 03-27-2023 11:48-0400 Systolic blood pressure 132 mm[Hg] ATHLETIC EQUIPMENT MANAGER-C Danuta Van Work Phone: [facility] 03-27-2023 06:00-0400 Body weight 59.9 kg ATHLETIC EQUIPMENT MANAGER-C Danuta Van Work Phone: [facility] 03-22-2023 11:40-0400 Body height 162.56 cm ATHLETIC EQUIPMENT MANAGER-C Danuta Van Work Phone: [facility] 03-22-2023 01:40-0400 Body height 162.56 cm ATHLETIC EQUIPMENT MANAGER-C Danuta Van Work Phone: [facility] 03-22-2023 01:40-0400 Body temperature 98.1 [degF] ATHLETIC EQUIPMENT MANAGER-C Danuta Van Work Phone: [facility] 03-22-2023 01:40-0400 Body weight 64.4 kg ATHLETIC EQUIPMENT MANAGER-C Danuta Van Work Phone: [facility] 03-22-2023 01:40-0400 Diastolic blood pressure 75 mm[Hg] ATHLETIC EQUIPMENT MANAGER-C Danuta Van Work Phone: [facility] 03-22-2023 01:40-0400 Heart rate 98 /min ATHLETIC EQUIPMENT MANAGER-C Danuta Van Work Phone: [facility] 03-22-2023 01:40-0400 Respiratory rate 13 /min ATHLETIC EQUIPMENT MANAGER-C Danuta Van Work Phone: [facility] 03-22-2023 01:40-0400 SaO2% (BldA) [Mass fraction] 100 % ATHLETIC EQUIPMENT MANAGER-C Danuta Van Work Phone: [facility] 03-22-2023 01:40-0400 Systolic blood pressure 123 mm[Hg] ATHLETIC EQUIPMENT MANAGER-C Danuta Van Work Phone: [facility] Encounters Encounter Date Encounter Type Care Provider Facility Start: 07-09-2023 End: 07-09-2023 ambulatory NETTIE [facility] Start: 07-03-2023 ambulatory Mustaphamimi Olivia Nury Facility:[facility] Start: 07-03-2023 End: 07-03-2023 ambulatory ATHLETIC EQUIPMENT MANAGER-C Danuta Araujo Work Phone: [facility] Work Phone: Start: 07-03-2023 End: 07-03-2023 Registered Recurring ATHLETIC EQUIPMENT MANAGER-C Danuta Araujo Work Phone: [facility] Work Phone: Start: 06-12-2023 End: 06-12-2023 ambulatory Danuta Araujo Facility:[facility] Start: 06-12-2023 End: 06-12-2023 Admission to same day surgery center ATHLETIC EQUIPMENT MANAGER-C Danuta Araujo Work Phone: [facility] [place] Work Phone: Start: 06-12-2023 End: 06-12-2023 ambulatory ATHLETIC EQUIPMENT MANAGER-C Danuta Araujo Work Phone: [facility] Work Phone: Start: 06-10-2023 End: 06-10-2023 ambulatory MARTHA [facility] Start: 05-31-2023 ambulatory Jeannie brantley WATCH BAND ASSEMBLER.DIRECTOR SUPPLIER QUALITY Work Phone: Gastroenterology Comment on above: [facility] Start: 05-30-2023 End: 05-30-2023 ambulatory ATHLETIC EQUIPMENT MANAGER-C Danuta Araujo Work Phone: [facility] Work Phone: Start: 05-30-2023 End: 05-30-2023 Registered Recurring ATHLETIC EQUIPMENT MANAGER-C Danuta Araujo Work Phone: [facility] Work Phone: Start: 05-23-2023 End: 05-23-2023 ambulatory ARSH OROZCO Facility:[facility] Start: 05-23-2023 End: 05-23-2023 Patient encounter procedure Arsh Orozco MD Work Phone: Neurology Comment on above: Burning sensation (P rimary Dx); Disturbance of skin sensation Start: 05-14-2023 End: 05-14-2023 ambulatory JEANNIE JARVIS Facility:[facility] Start: 05-14-2023 End: 05-14-2023 ambulatory Jeannie Jarvis WATCH BAND ASSEMBLER.DIRECTOR SUPPLIER QUALITY Work Phone: Gastroenterology Comment on above: Advanced hepatic fib rosis (Primary Dx) Start: 05-14-2023 End: 05-14-2023 Telemedicine consultation with patient Jeannie Jarvis WATCH BAND ASSEMBLER.DIRECTOR SUPPLIER QUALITY Work Phone: [facility] Start: 05-08-2023 End: 05-08-[address] [facility] Start: 05-06-2023 End: 05-07-2023 ambulatory Zane Ortez MD Facility:[facility] Start: 04-17-2023 End: 04-18-2023 ambulatory HAVEN NIÑO CNP Facility:[facility] Start: 04-12-2023 End: 04-13-2023 [facility] Start: 04-11-2023 Telephone encounter Mary Cagle (Pss) Gastroenterology Comment on above: Appointment Start: 03-27-2023 End: 04-03-2023 Evaluation and management of inpatient Marc Giron Facility:[facility] Start: 03-27-2023 End: 04-03-2023 Evaluation and management of inpatient DEBORAH-C Danuta Araujo Work Phone: [facility] Work Phone: Start: 03-22-2023 End: 03-23-2023 ambulatory Millie Mcdonald Facility:[facility] Start: 03-22-2023 End: 03-22-2023 Patient encounter procedure Millie Mcdonald [facility] Start: 03-22-2023 End: 03-27-2023 Evaluation and management of inpatient Parveen Keller Facility:[facility] Start: 03-22-2023 End: 03-27-2023 Evaluation and management of inpatient ATHLETIC EQUIPMENT MANAGER-C Danuta Van Work Phone: [facility] Work Phone: Start: 01-28-2023 Emergency department patient visit Facility:[facility] Start: 10-18-2022 End: 10-19-2022 ambulatory DANUTA ARAUJO Facility:[facility] Start: 10-15-2022 ambulatory DANUTA ARAUJO Facility: [facility] Start: 09-27-2022 End: 09-27-2022 ambulatory DANUTA VAN Facility:[facility] Start: 09-20-2022 End: 09-21-2022 ambulatory DANUTA VAN Facility:[facility] Start: 09-19-2022 End: 09-20-2022 ambulatory DANUTA VAN Facility:[facility] Start: 09-13-2022 End: 09-13-2022 ambulatory DANUTA VAN Facility:[facility] Start: 08-30-2022 End: 08-30-2022 ambulatory DANUTA VAN Facility:[facility] Start: 08-22-2022 End: 08-22-2022 ambulatory DAVE CACERES . Facility:[facility] Start: 06-05-2022 End: 06-05-[address] DAVE SCHWARTZ . Facility:[facility] Start: 11-06-2021 End: 11-07-2021 ambulatory KLARISSA CHAMBERS Facility:[facility] Start: 11-10-2020 End: 11-11-2020 ambulatory [facility] Start: 11-10-2020 End: 11-10-2020 Subsequent hospital visit by physician Haven Niño APRN - ANDREA Work Phone: [facility] Start: 04-06-2020 End: 04-07-2020 ambulatory KALIA [facility] Start: 04-06-2020 End: 04-06-2020 Subsequent hospital visit by physician Haven Niño MTHZ Laboratory Procedures Date Procedure Procedure Detail Performing Clinician Start: 06-12-2023 Bone marrow sampling ATHLETIC EQUIPMENT MANAGER -Mikel Araujo Work Phone: Start: 04-01-2023 MRI of cervical spin e with contrast ATHLETIC EQUIPMENT MANAGER-C Danuta Araujo Work Phone: Start: 04-01-2023 Duplex scan of lower limb veins ATHLETIC EQUIPMENT MANAGER-C Danuta Araujo Work Phone: Start: 03-23-2023 Ultrasonography of abdomen ATHLETIC EQUIPMENT MANAGER-C Danuta Araujo Work Phone: Start: 03-22-2023 XR pre/post mri xray ATHLETIC EQUIPMENT MANAGER -C Danuta Araujo Work Phone: Start: 03-22-2023 MRI of lumbar spine with contrast ATHLETIC EQUIPMENT MANAGER-C Danuta Araujo Work Phone: Start: 03-22-2023 MRI of head ATHLETIC EQUIPMENT MANAGER-C Skip Araujo Work Phone: Start: 03-21-2023 CT of head without contrast ATHLETIC EQUIPMENT MANAGER-C Danuta Araujo Work Phone: Start: 03-21-2023 Plain chest X-ray ATHLETIC EQUIPMENT MANAGER-Mikel Araujo Work Phone: Start: 03-21-2023 Aerobic microbial culture ATHLETIC EQUIPMENT MANAGER-C Danuta Araujo Work Phone: Start: 03-21-2023 Anaerobic microbial culture ATHLETIC EQUIPMENT MANAGER-C Danuta Araujo Work Phone: Start: 03-21-2023 Blood culture for ba cteria, including anaerobic screen ATHLETIC EQUIPMENT MANAGER-C Danuta Araujo Work Phone: Start: 03-21-2023 CSF (PCR) ATHLETIC EQUIPMENT MANAGER-C Skip Araujo Work Phone: Start: 03-21-2023 Investigation of tra nsfusion reaction ATHLETIC EQUIPMENT MANAGER-C Danuta Araujo Work Phone: Start: 03-21-2023 Urine culture ATHLETIC EQUIPMENT MANAGER-C Isidra Harper Work Phone: Start: 11-10-2020 Gonadotropin chorion ic quantitative Massimo Amilcar Bright MD Work Phone: Start: 11-10-2020 Hepatic function panel Kalai Bender WATCH BAND ASSEMBLER - DIRECTOR SUPPLIER QUALITY Work Phone: Start: 04-06-2020 Antibody hiv-1&hiv-2 single result KALIA BENDER Start: 04-06-2020 Blood count complete automated KALIA BENDER Start: 04-06-2020 Antibody hiv-1&hiv-2 single result Kalia Bender Work Phone: Start: 04-06-2020 Blood count complete automated Kalia Bender Work Phone: Start: 04-06-2020 Comprehensive metabo lic panel Kalia Bender Work Phone: Plan of Treatment Date Care Activity Detail Author Start: 06-05-2032 Urine microalbumin profile DTaP,Tdap,Td Vaccine (8 - Td or Tdap) [facility] Start: 11-13-2023 End: 02-12-2024 CBC W Auto Differential panel - Blood CBC + DIFF Lab Routine Advanced hepatic fibrosis Expected: 11/13/2023 (Approximate), Expires: 02/12/2024 [facility] Work Phone: Comment on above: Expected: 11/13/2023 (Approximate), Expires: 02/12/2024 Start: 11-13-2023 End: 02-12-2024 Comprehensive metabolic 2000 panel - Serum or Plasma COMP METABOLIC PANEL Lab Routine Advanced hepatic fibrosis Expected: 11/13/2023 (Approximate), Expires: 02/12/2024 [facility] Work Phone: Comment on above: Expected: 11/13/2023 (Approximate), Expires: 02/12/2024 Start: 11-13-2023 End: 02-12-2024 PT panel - Platelet poor plasma by Coagulation assay PROTHROMBIN TIME/PT Lab Routine Advanced hepatic fibrosis Expected: 11/13/2023 (Approximate), Expires: 02/12/2024 [facility] Work Phone: Comment on above: Expected: 11/13/2023 (Approximate), Expires: 02/12/2024 Start: 06-12-2023 End: 06-12-2023 [facility] Start: 06-12-2023 Bone marrow sampling [facility] Start: 05-30-2023 Angiotensin converti ng enzyme [Enzymatic activity/volume] in Serum or Plasma [facility] Start: 05-30-2023 Copper measurement [facility] Start: 05-30-2023 Rheumatoid factor [Units/volume] in Serum or Plasma [facility] Start: 05-30-2023 [facility] Start: 05-24-2023 End: 08-23-2023 Cobalamin (Vitamin B12) [Mass/volume] in Serum or Plasma VITAMIN B12 BLOOD Lab Routine Burning sensation Disturbance of skin sensation Expected: 05/24/2023, Expires: 08/23/2023 [facility] Work Phone: Comment on above: Expected: 05/24/2023 , Expires: 08/23/2023 Start: 05-24-2023 End: 08-23-2023 PROT ELECT SERUM WITH RONALD AND INTERP PROT ELECT SERUM WITH RONALD AND INTERP Lab Routine Burning sensation Disturbance of skin sensation Expected: 05/24/2023, Expires: 08/23/2023 [facility] Work Phone: Comment on above: Expected: 05/24/2023 , Expires: 08/23/2023 Start: 04-03-2023 [facility] Start: 03-30-[address] [facility] Start: 03-27-2023 Hospital admission [facility] Start: 03-27-2023 [facility] Start: 03-27-2023 [facility] Start: 03-26-2023 Referral to rehabilitation physician [facility] Start: 03-22-2023 [facility] Start: 03-22-2023 Drainage of Spinal C anal, Percutaneous Approach, Diagnostic Drainage of Spinal Canal, Percutaneous Approach, Diagnostic [facility] Start: 03-22-2023 Influenza vaccination Influenza Vacc ine (#1) [facility] Start: 03-22-2023 Hospital admission [facility] Start: 03-22-[address] [facility] Start: 03-22-2023 Patient referral to dietitian [facility] Start: 03-22-2023 Referral to Pulmonary Physical Therapist [facility] Start: 03-22-2023 [facility] Start: 03-21-[address] [facility] Start: 03-21-2023 [facility] Start: 03-21-2023 CT of head without contrast CT head/brain wo con [facility] Start: 03-21-2023 CT Unspecified body region WO contrast [facility] Start: 03-21-2023 Plain chest X-ray XR chest 1V portab le [facility] Start: 03-21-2023 [facility] Start: 03-21-2023 Bacteria identified in Blood by Culture [facility] Start: 03-21-2023 Bacteria identified in Urine by Culture [facility] Start: 07-22-2022 Depression Assessment Depression Ass essment [facility] Start: 03-22-2021 Influenza vaccination Flu vacc ine (Season Ended) [facility] Phone: Start: 03-22-2020 Influenza vaccination Flu vaccine (# 1) [place] Start: 10-24-2016 Pap Testing Pap Testing [facility] Start: 10-24-2014 Urine microalbumin profile DTaP,Tdap,Td Vaccine (1 - Tdap) [facility] Start: 10-24-2013 Hepatitis C Screening Hepatitis C Sc reening [facility] Start: 10-24-2013 HIV Screening HIV Screening [facility] Start: 2011 COVID-19 Vaccine (1) COVID-19 Vaccin e (1) [facility] Phone: Start: 10-24-2001 Pneumococcal vaccination Pneum ococcal Vaccine (1 - PCV) [facility] Start: 04-25-1996 Covid-19 Vaccine (#1) Covid-19 Vacci ne (#1) [facility] Start: 1995 Hepatitis B Vaccine (1 of 3 - 3-dose series) Hepatitis B Vaccine (1 of 3 - 3-dose series) [facility] Albumin/Globulin ratio [facility] Angiotensin converti ng enzyme [Enzymatic activity/volume] in Serum or Plasma [facility] Anion gap measurement [facility] Bacteria identified in Blood by Culture [facility] Bacteria identified in Unspecified specimen by Aerobe culture [facility] Bacteria identified in Unspecified specimen by Anaerobe culture [facility] Bilirubin.indirect [Mass/volume] in Serum or Plasma [facility] Blood zinc measurement [facility] Comprehensive metabo lic 1999 panel - Serum or Plasma [facility] Comprehensive metabo lic 1999 panel - Serum or Plasma [facility] Copper measurement [facility] Cryoglobulin [Presen ce] in Serum [facility] CT guided biopsy [facility] Globulin [Mass/volum e] in Serum [facility] Hepatitis B core ant ibody measurement, IgM type [facility] Hepatitis B virus jaimes rface Ab [Presence] in Serum [facility] IR TRANSJUGULAR LIVE R BX W/PRESS IR TRANSJUGULAR LIVER BX W/PRESS Radiology Routine Advanced hepatic fibrosis Ordered: 06/05/2023 [facility] Work Phone: Comment on above: Ordered: 06/05/2023 Patient Education [facility] Work Phone: Patient referral [facility] Work Phone: Protein fractions.oligoclonal bands.intrathecal [Presence] in Serum and CSF [facility] Rheumatoid factor [Units/volume] in Serum or Plasma [facility] Immunizations Immunization Date Immunization Notes Care Provider Fa jaycee 06-15-2014 tetanus toxoid, redu antoinette diphtheria toxoid, and acellular pertussis vaccine, adsorbed Millie Mdconald [facility] 05-13-2014 influenza virus vaccine, unspecified formulation Millie Mcdonald [facility] 04-04-2001 DTaP, unspecified formulation Millie Mcdonald [facility] 04-04-2001 measles, mumps and rubella virus vaccine Millie Harry [facility] 04-04-2001 poliovirus vaccine, unspecified formulation Millie Harry [facility] 01-27-1997 DTaP, unspecified formulation Millie Harry [facility] 01-27-1997 Hib, unspecified formulation Millie Harry [facility] 11-04-1996 measles, mumps and rubella virus vaccine Millie Harry [facility] 05-08-1996 DTP-Hib Millie Harry [facility] 05-08-1996 hepatitis B vaccine, pediatric or pediatric/adolescent dosage Millie Harry [facility] 03-02-1996 DTP-Hib Millie Harry [facility] 01-01-1996 DTP-Hib Millie Harry [facility] 01-01-1996 hepatitis B vaccine, pediatric or pediatric/adolescent dosage Millie Harry [facility] 1995 hepatitis B vaccine, pediatric or pediatric/adolescent dosage Millie Harry [facility] Payers Date Payer Category Payer Self-pay 2023 Medicaid [facility] MEDICAID [id number] 2023-Present [phone] [address] [place] [address] Medicaid [id number] 2022 Unknown 1995 Unknown [id number] 1995 Unknown [id number] [id number] 1995 Unknown [id number] [id number]3 1995 Unknown [id number] 2.16.840.1.359237.3.579.2.593 1995 Unknown [id number] 2.16.840.1.420611.3.579.2.593 1995 Unknown [id number] 2.16.840.1.546847.3.579.2.593 1995 Unknown [id number] 2.16.840.1.927111.3.579.2.593 1995 Unknown [id number] 2.16.840.1.852237.3.579.2.593 1995 Unknown [id number] 2.16.840.1.292494.3.579.2.593 1995 Unknown [id number] 2.16.840.1.804903.3.579.2.593 1995 Unknown [id number] 2.16.840.1.619037.3.579.2.593 1995 Unknown [id number] 2.16.840.1.387997.3.579.2.593 1995 Unknown [id number] 2.16.840.1.328844.3.579.2.593 1995 Unknown [id number] 2.16.840.1.612782.3.579.2.593 1995 Unknown [id number] 2.16.840.1.527701.3.579.2.196 1995 Unknown [id number] 2.16.840.1.670691.3.579.2.727 1995 Unknown [id number] 2.16.840.1.386003.3.579.2.727 1959 Unknown [id number] [id number]. [id number] 1959 Unknown [id number] Unknown [id number] 2.16.840.1.670440.3.579.2.531 Unknown [id number] 2.16.840.1.336322.3.579.2.531 Unknown [id number] 2.16.840.1.772420.3.579.2.531 Unknown [id number] [id number]1 Social History Date Type Detail Facility Tobacco smoking stat [facility] Unknown if ever smoked [place], [place] Start: 1995 Sex Assigned At Not on file [place] Start: 03-22-2023 End: 07-03-2023 Tobacco smoking status NHIS Smoker (finding) [facility] Start: 1995 Sex Assigned At Female [facility] Start: 01-11-2021 End: 04-12-2023 Tobacco smoking status Ex-smoker (finding) [facility] Tobacco smoking status Never [facility] Start: 01-28-2023 End: 01-29-2023 Sex Assigned At Female [facility] Start: 01-28-2023 [facility] Start: 01-28-2023 Alcohol intake Current drinke r of alcohol (finding) [facility] Start: 01-28-2023 End: 01-29-2023 History of Social function [facility] Start: 05-23-2023 Tobacco smoking stat us LAIS Smokes tobacco daily [facility] Start: 05-23-2023 Tobacco use and exposure Smokeless tobacco non-user [facility] Start: 04-12-2023 End: 05-23-2023 Alcohol intake Ex-drinker (finding) [facility] Start: 04-12-2023 Tobacco Comment Patient vapes [facility] Start: 05-14-2023 Gender identity Identifies as female gender (finding) [facility] Start: 05-14-2023 Sexual orientation Heterosexual (didi lua) [facility] History of tobacco use [facility] Goals Date Patient Goal Desired Activity /State Functional Status Date Assessment Result Facility 04-03-2023 Functional status Patient at Baseline [facility] Work Phone: 03-27-2023 Functional status Patient is Pro gressing Toward Baseline [facility] Work Phone: 03-22-2023 Functional status Patient Not at Baseline [facility] Work Phone: Mental Status Date Assessment Result Facility 04-03-2023 Cognitive function Cognitive Sta tus Patient at Baseline [facility] Work Phone: 03-27-2023 Cognitive function Cognitive Sta tus Patient at Baseline [facility] Work Phone: 03-22-2023 Cognitive function Cognitive Sta tus Patient Not at Baseline [facility] Work Phone: Clinical Notes 03-22-2023 to 07-09-2023 Telephone Encounter - Jeannie Jarvis APRN.CNP - 06/05/2023 9:33 PM ESTTelephone Encounter - Paloma Le RN - 05/31/2023 1:54 PM EST Note Date & Type Note Facility 07-09-2023 Note [facility] Consult Note Reason for Consultation: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 accompanied sx's of feeling shaky/hand or feet numbness/tingling, throat tightness/ chest soreness with palpation. She had a near syncopal episode while sitting/laying down mid September - CT scan was negative. Laying down/falling asleep is the only thing that helps but occasionally this doesn't. Episodes lasts for 15-20 minutes. PMHx: no significant hx FMHx: maternal grandmother - CAD, PVD; paternal grandmother - HTN, a.fib Social: 2 children ages 7 and 4, single, 1 dog ETOH: occasional, maybe 1 glass of wine a few days a week Tobacco: vaping - daily Illicit drugs: denies Diet: no special diet; drinks maybe 1 pop or cup of tea/day Exercise: no current exercise regimen EKG (09/28/21): sinus tach, right axis deviation 3-day Holter monitor (09/14/21): predominant rhythm was sinus to sinus tach; one episode she had with HR at 167 looks to be SVT PMH: Past Medical History: Diagnosis Date Dizziness Near syncope SVT (supraventricular tachycardia) (CMS/HCC) PSH: Past Surgical History: Procedure Laterality Date SECTION, CLASSIC SH: Social Determinants of Health Tobacco Use: Medium Risk (04/19/2022) Patient History Smoking Tobacco Use: Former Smokeless Tobacco Use: Never Passive Exposure: Not on file Alcohol Use: Not on file Financial Resource Strain: Not on file Food Insecurity: Not on file Transportation Needs: Not on file Physical Activity: Not on file Stress: Not on file Social Connections: Not on file Intimate Partner Violence: Not on file Depression: Not on file Housing Stability: Not on file Meds: No current outpatient medications on file prior to visit. No current facility-administered medications on file prior to visit. ROS: Cardio Basic Cardiovascular Symptoms: no lightheadedness, no leg edema, no syncope, no orthopnea, no PND, no claudication, Constitutional Constitutional: no fever, no night sweats, no significant weight gain, no significant weight loss, no exercise intolerance Eyes Eyes: no dry eyes, no irritation, no vision change ENMT Ears: no difficulty hearing, no ear pain Nose: no frequent nosebleeds, Mouth/Throat: no sore throat, no bleeding gums, no snoring, no dry mouth, no mouth ulcers, no oral abnormalities, no teeth problems Respiratory Respiratory: no cough, no wheezing, no coug (more content not included)... [facility]09-28-2023 Note [id number]:[address] [place] [address] 04-18-2023 [id number]#1.00CD:[address] [place], [place] [address]1209-22-2023 NoteHNO ID: [id number] Author: Jeannie Jarvis APRN.[employer] Service: ? Author Type: Nurse Practitioner Type: Progress Notes Filed: 04/13/2023 3:22 PM Note Text: Patient fasting for 3 hours:Yes Fibroscan was performed on April 12, 2023, by Sondra Newell RN and results are interpreted by Jeannie Jarvis APRN.[employer] Diagnosis: Fatty liver/ elevated liver enzymes Please refer to get images report for individual readings Number of readings: 10 IQR %: 15% E (kpa): 14.1 CAP: 289 Impression The reading was adequate. FS=14.1 kPA. The CAP score is 289 and corresponds to steatosis grade of S2. This reading corresponds: A 56% chance of stage 0-2 fibrosis A 43% chance of stage 3-4 fibrosis (advanced fibrosis) A 14% chance of stage 4 fibrosis (cirrhosis). Jeannie Jarvis APRN.[employer] NAFLD Fibroscan Fibrosis Risk <7 kPA = F0-F2 97%, F3+F4 3%, F4 <1% <10 kPA = F0-F2 91%, F3+F4 9%, F4 1.3% 10-15 kPA = F0-F2 56%, F3+F4 43%, F4 14% >15 kPA = F0-F2 26%, F3+F4 74%, F4 46% Grade CAP value up to 237 dB/M corresponds to S0 (< 10 % Fat) CAP value between (238 - 258 dB/M) corresponds to S1 (>/= 11 % Fat) CAP value between (259 - 289 dB/M) corresponds to S2 (>/= 33 % Fat) CAP value > 290dB/M corresponds to S3 (>/= 67 % Fat) stage 0 ( S0:< 10 % steatosis) stage 1 (>/= S1: 11%-33% steatosis) stage 2 (>/= S2: 34%-66% steatosis) stage 3 (>/= S3: > 66% steatosis) Reference Justyn Y, Acosta Q, Justyn T, Madhavi J, Justyn H, Sandro T. Controlled attenuation parameter for assessment of hepatic steatosis grades: a diagnostic meta-analysis. Int J Clin Exp Med. 2015 Apr 15;8(10):82822-08. PMID: 83273872; PMCID: YME7197437. Harper M, Jameson NEETU, Tyler M, Sung F, Ranjeet J, Ric O, Cathryn F, Manuel M, Edin G, Chrissy A, Troy E, Vamsi L, Tushar G, Wilmer A, Antonia U, Eileen S, Delia P, Zunilda V, Westbrook V, Chen M, Gurjit VALENCIA. Refining the Baveno elastography criteria for the definition of compensated advanced chronic liver disease. J Hepatol. 2020;74(5):0094-4053. doi: 10.1016/j.jhep.2020.11.050. Epub 2019Jun 29. PMID: 37463403.[facility]09-22-2023 NoteHNO ID: [id number] Author: Jeannie Jarvis APRN.[facility] Service: ? Author Type: Nurse Practitioner Type: Progress Notes Filed: 05/24/2023 12:39 PM Note Text: NAME: Rica Stout AGE: [age] year old Patient is referred in consultation by for an opinion regarding hepatic steatosis and my final recommendations will be communicated back to the requesting physician by way of shared Medical Record. PRESENTING COMPLAINT: hepatic steatosis, elevated LFTs HISTORY Rica Stout is a 27 year old year old female with PMHx heroin abuse, ETOH abuse who presents with hepatic steatosis, elevated liver enzymes. Here today for further evaluation of elevated liver enzymes, hepatic steatosis. History of ETOH abuse, heroin abuse years prior Vivitrol for two years Recently hospitalized for lower extremity weakness. Found to have hepatic steatosis, mildly elevated LFTs. 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 Former daily ETOH use (6+ beers plus 3-4+ mixed drinks) for 2 years Nutrition: Does not follow specific diet New medications: Lyrica 75 mg Metabolic Syndrome Risk factors: 0/5 1) Diabetes/ Abnormal FBS >100mg/dL: no 2) Hypertension : no 3)Triglycerides more then 150: unknown 4) HDL (<50 female and <40 male): unknown 5) Central obesity ( Waist >102 men and >88 female) - Body mass index is 22.86 kg/(m2) Risk Factors for Liver Disease: 1. Blood transfusions before 1991: No 2. IVDA: Yes, last use 2018 3. Intranasal coccaine use: Yes, last 2017 4. Tattoos: No 5. Service: No 6. High risk sexual behavior: No 7. Alcohol: Yes, Last use mid. Former daily ETOH use (6+ beers plus 3-4+ mixed drinks) 8. Obesity: No 9. Hyperlipidemia: Unknown 10. Prolonged exposure to hepatotoxic meds: No 11. Other autoimmune disorders: No OTC herbal medications: Denies Tylenol use: Denies Denies jaundice, abdominal pain, N/V, constipation, diarrhea, hematemesis, hematochezia, ascites, episodes of confusion. IMAGING/PROCEDURES: ABD US 03/22/23: No past surgical history on file. No past medical history on file. Social History Tobacco Use Smoking status: Never Vaping Use Vaping Use: current everyday user Substances: Nicotine Substance Use Topics Alcohol use: Yes Drug use: Not Currently No current outpatient medications on file. No current facility-administered medications for this visit. ALLERGIES Allergen Reactions Penicillins Rash FAMILY HISTORY Liver Problems: No No family history on file. GI SPECIFIC ROS Filling up quickly at meals: No Loss of appetite: No Nausea: No Vomiting: No Abdominal pain: No Recent change in bowel movements: No Bloody or black, bowel movements: No Constipation: No Diarrhea: No Loss of control of bowel movements: No Thought or memory problems: No Fluid in abdomen (ascites): No Prominent leg swelling: yes, 2+ edema. Vomiting blood: No Recent change in weight: No PHYSICAL EXAMINATION There were no vitals taken for this visit. General Appearance: Well appearing, alert, in no acute distress, well-hydrated, well nourished. Eyes: no scleral icterus Abdomen: not distended, soft and depressible, no guarding or rebound, no palpable mass, no organomegaly Extremities: no cyanosis, no asterixis. 2+ pitting edema bilaterally Skin: no jaundice, no spider angiomas, no palmar erythema Macular rash with white macules of soles of feet, sides of feet, lower calves, and palms of hands. Neuro:alert, oriented x 3, pleasant and in no acute distress Animal Naming Test: 21 animals named Recent Labs: Hemoglobin (g/dL) Date Value 01/28/2023 12.8 Hematocrit (%) Date Value 01/28/2023 38.2 WBC (k/uL) Date Value 01/28/2023 8.78 Glucose (mg/dL) Date Value 01/28/2023 113 Potassium (mmol/L) Date Value 01/28/2023 3.1 Sodium (mmol/L) Date Value 01/28/2023 138 Chloride (mmol/L) Date Value 01/28/2023 100 CO2 (mmol/L) Date Value 01/28/2023 18 Creatinine (mg/dL) Date Value 01/28/2023 0.56 BUN (mg/dL) Date Value 01/28/2023 <2 Anion Gap (mmol/L) Date Value 01/28/2023 20 Calcium, Total (mg/dL) Date Value 01/28/2023 9.0 Albumin (g/dL) Date Value 01/28/2023 3.5 (L) Bilirubin, Total (mg/dL) Date Value 01/28/2023 0.6 Alkaline Phosphatase (U/L) Date Value 01/28/2023 213 (H) AST (U/L) Date Value 01/28/2023 104 (H) ALT (U/L) Date Value 01/28/2023 75 (more content not included)...[facility] [id number] Miscellaneous Notes* Telephone Encounter - Mary Cagle Ji - 04/11/2023 2:48 PM EDT Called Rica Stout to remind them of an appointment with Jeannie Jarvis on 04/12/23. Left Message for patient. [facility] Discharge summary Author Marc Giron [facility] April 03, 2023 12:45pm Note Date/Time April 03, 2023 11:02am [facility] [address] [place] [address] Discharge Summary Signed Patient: Rica Stout MR#: [id number] : 1995 Acct:[id number] Age/Sex: 27 / F Adm Date: 3 Loc: Room: [address] [place] [address]: Marc Giron MD Copies to: MD Danuta Hernandez, DIRECTOR [employer]PPL[employer]ALITY~ Providers Date of Discharge: 04/03/23 Discharging Provider: Mrac Giron Primary Care Provider: Danuta Araujo Consults: 03/27/23 14:46 Consult to Dietitian Routine Consult to Occupational Therapy Routine Consult to Physical Therapy Routine Speech Admit Screen Routine 03/27/23 14:48 Consult to Speech Therapy Routine 03/30/23 11:37 Consult to Neurology Routine Discharge Diagnosis (1) Sensorimotor neuropathy: (2) Weakness: (3) Bilateral leg paresthesia: (4) Impaired mobility and ADLs: (5) Transaminitis: (6) Weakness of distal arms and legs: (7) UTI (urinary tract infection): (8) Hypomagnesemia: (9) Hypophosphatemia: (10) Hx of drug abuse: (11) History of ETOH abuse: (12) Folate deficiency: Final Diagnosis Final Discharge Diagnosis: as above Summary Hospital Course Hospital course: Ms. Stout is a 27 year old female with hx of heroin and alcohol abuse who initially presented to our ER late on the evening of 03/21/23 by recommendation of her neurologist after an abnormal EMG.? Patient explains that she began experiencing bilateral lower extremity weakness around July of this year.? She states prior to symptom onset, she was functioning completely normal and wascompletely independent with her ADLs.? Patient explains that one day in July,she was walking her legs just gave out on her. ? This happened several more times over the next couple of months with associated worsening bilateral lower extremity weakness.? States she had to begin using crutches for ambulation because she did not feel steady on her legs.? Her weakness continued to worsen and she additionally began to develop paresthesias in the bilateral lower extremities with a burning pain.? The paresthesias and burning pain began distally and began slowly extending proximally.? Her symptoms have continued to worsen and she has also recently developed weakness in her hands bilaterally.? Alumbar puncture was performed in the emergency room which was negative for Guillain-Del Rio? syndrome.? Lumbar and brain MRI in the hospital were negative foracute process.? Patient was found to have several electrolyte/nutritional deficiencies including hypomagnesemia, hypokalemia, hypophosphatemia, low folate, borderline low B12 all of which were replaced during her hospital stay.?She also received thiamine supplementation during the stay.? Patient was also found to have elevated liver enzymes, therefore underwent abdominal ultrasound.?The ultrasound showed a prominent appearing liver measuring nearly 17 cm in greatest transverse dimension; the liver is heterogeneous with relatively poor penetration which is suspicious for hepatic steatosis versus acute hepatitis.? Hepatitis C antibody was found to be nonreactive.? On the day of discharge from the inpatient hospital floor to the inpatient rehab unit, the patient was reportedly beginning to feel slightly better.? She had completed a course of antibiotics for Klebsiella UTI.? She was afebrile and hemodynamically stable.? She was seen in consult by Dr. Giron who agreed with admission to the inpatient rehab floor. States her goals for rehab include ideally going back to being independent, but at minimum would like to be independent with ambulation again so she can interact more with her children and take them to places.? The patient [place] [facility] with 2 steps to get into the door.? Patient states she has been having to crawl up the stairs because she does not have the strength to walk up them.? Patient previously worked at [employer], but had to quit her job earlier this year due to her symptoms.? Currently she denies any chest pain, shortness of breath, acute visual changes, abdominal pain, nausea, vomiting, fevers, loss of bowel or bladder control. Rehab Course: Rehabilitation course was uncomplicated. She made appropriate functional gains. Patient was discharged on Lyrica for symptomatic peripheral neuropathy. Neurology followed as she had some subtle complaints of approximately Grobe migrating numbness in her fingertips towards her wrists, MRI of the cervical spine was unremarkable. He feels this is most likely a metabolic type of predominantly sensory neuropathy, we related to her liver issues. She will establish with [facility] gastroenterology at discharge. She also had a venous duplex that she had some transient swelling in her legs, there was no evidence of DVT. She was discharged in stable condition on Saturday, April 03. Condition Condition at Discharge: Stable Status at Discharge Functional status at discharge: independent ambulation Overall status at discharge: patient is progressing back to baseline Time Spent with Patient Time spent providing/coordinating discharge services (# min): 40 Specific discharge activities: Total time spent discharging this patient > 30 minutes Greater than 30 minutes spent preparing the patient for discharge including the following: Discussion of the hospital stay with patient and/or family Instructions for continuing care to all relevant caregivers Reviewing discharge plan with medical staff, social work, care management, and nursing staff Supervision of discharge paperwork, medication reconciliation, prescriptions, and outpatient appointments Prescribed necessary DME at discharge when indicated Exam Physical Exam Vital Signs: Temp Pulse Resp BP Pulse Ox O2 Del Method 98.4 F 107 H 16 108/67 98 Room Air 04/03/23 06:41 04/03/23 06:41 04/03/23 06:41 04/03/23 06:41 04/03/23 06:41 04/03/23 06:41 Narrative: Pleasant NAD RRR Non-labored breathing Moves extremities antigravity Numbness now stocking/glove distribution. Discharge Plan Discharge Plan Patient Disposition: Home Activity: Ambulate as Tolerated Diet: Regular Additional Instructions: -Activity: Ambulate as tolerated. No driving until cleared by physician, may ride in car. -Diet: Regular diet. You will have Outpatient Physical Therapy at [facility] (Address: [facility] [address] [place], [place]/ [address]. [address]). The order for this has already been sent to them, and they will contact you directly to schedule your evaluation date/time. If you do not hear from themby afternoon, please contact the directly at the phone number listed above. You have been given prescriptions for new and/or needed medications. These prescriptions are for a one-time fill only, with no re-fills. For further re- fills going forward, you will need to address with your PCP at your follow up appointment, or by calling your PCP?s office prior to the prescriptions running out. NOTE: please call within 24 hours if you need to cancel or change any follow up appointments. Arrive early to all follow up appointments, bring current medication list, photo ID and any insurance card(s) to all future follow ups (listed below). Please remember to wear a mask to all appointments. If you develop any symptoms (cough, fever/chills, shortness of breath, sore throat, nausea/vomiting, etc.) please contact your provider's office to inform them prior to your appointment. Instructions: Peripheral Neuropathy (DC), Vitamin B12 Deficiency (DC) Prescriptions: New folic acid 1 mg Tablet 1 mg PO QAM 30 Days Qty: 30 0RF diclofenac sodium [Voltaren Arthritis Pain] 1 % Gel 2 g topical TID 30 Days Qty: 1 0RF Thera-Gesic 15-1 % Cream 1 applic topical TID PRN (Reason: Pain) Qty: 0 0RF thiamine HCl (vitamin B1) 100 mg Tablet 100 mg PO QAM 30 Days Qty: 30 0RF pregabalin 75 mg Capsule 75 mg PO BID 30 Days Qty: 60 0RF Continued lactulose 10 gram/15 mL solution 10 g PO QAM Patient Comments: TAKE 30 ML BY MOUTH ONCE A DAY FOR 5 DAYS potassium chloride 20 mEq tablet extended release 20 meq PO BID magnesium oxide 200 mg magnesium tablet,chewable 200 mg PO QAM Patient Comments: TAKE 1 TABLET BY MOUTH DAILY FOR 5 DAYS Discontinued thiamine HCl (vitamin B1) 100 mg tablet 100 mg PO QAM folic acid 1 mg tablet 1 mg PO QAM Other Ambulatory Orders: DME Home Medical Equipment (Routine) Timeframe: [id number] Location: Determined by Patient Ordered By: Marc Giron Follow Up: Jeannie Jarvis NP [Other] - 04/12/23 (Liver Specialist ) Keshav Arrington, DO [Courtesy/Consulting Physician] - 04/11/23 1:40 pm (Appointment will be with DEBORAH Lynch) Marc Giron MD [Active Staff] - (Rehab physician. Follow up as/if needed.) Danuta Araujo NP-C [Primary Care Provider] - 04/11/23 3:00 pm Documented By: Marc Giron MD 04/03/23 1102 Signed By: <Electronically signed by Marc Giron MD> 04/03/23 1245 [facility] Work Phone: 1(154) 526-549409-12-2023 Progress note Author Marc Giron [facility] April 02, 2023 12:01pm Note Date/Time April 02, 2023 9:14am [facility] [address] [place] [address] Physiatry(Rehab) Progress Note Signed Patient: Rica Stout MR#: [id number] : 1995 Acct:[id number] Age/Sex: 27 / F Adm Date: 3 Loc: Room: [address] [place] [address] Type: ADM IN Attending Dr: Marc Giron MD Copies to: ~ Date of Service: 04/02/2023 Subjective Subjective Narrative: Ms. Stout is a 27 year old female with hx of heroin and alcohol abuse who initially presented to our ER late on the evening of 03/21/23 by recommendation of her neurologist after an abnormal EMG.? Patient explains that she began experiencing bilateral lower extremity weakness around July of this year.? She states prior to symptom onset, she was functioning completely normal and wascompletely independent with her ADLs.? Patient explains that one day in July,she was walking her legs just gave out on her. ? This happened several more times over the next couple of months with associated worsening bilateral lower extremity weakness.? States she had to begin using crutches for ambulation because she did not feel steady on her legs.? Her weakness continued to worsen and she additionally began to develop paresthesias in the bilateral lower extremities with a burning pain.? The paresthesias and burning pain began distally and began slowly extending proximally.? Her symptoms have continued to worsen and she has also recently developed weakness in her hands bilaterally.? Alumbar puncture was performed in the emergency room which was negative for Guillain-Del Rio? syndrome.? Lumbar and brain MRI in the hospital were negative foracute process.? Patient was found to have several electrolyte/nutritional deficiencies including hypomagnesemia, hypokalemia, hypophosphatemia, low folate, borderline low B12 all of which were replaced during her hospital stay.? She also received thiamine supplementation during the stay.? Patient was also found to have elevated liver enzymes, therefore underwent abdominal ultrasound.? The ultrasound showed a prominent appearing liver measuring nearly 17 cm in greatesttransverse dimension; the liver is heterogeneous with relatively poor penetration which is suspicious for hepatic steatosis versus acute hepatitis.? Hepatitis C antibody was found to be nonreactive.? On the day of discharge from the inpatient hospital floor to the inpatient rehab unit, the patient was reportedly beginning to feel slightly better.? She had completed a course of antibiotics for Klebsiella UTI.? She was afebrile and hemodynamically stable.? She was seen in consult by Dr. Giron who agreed with admission to the inpatient rehab floor. States her goals for rehab include ideally going back to being independent, but at minimum would like to be independent with ambulation again so she can interact more with her children and take them to places.? The patient lives in [facility] home with 2 steps to get into the door.? Patient states she has been having to crawl up the stairs because she does not have the strength to walk up them.? Patient previously worked at a [employer], but had to quit her job earlier this year due to her symptoms.? Currently she denies any chest pain, shortness of breath, acute visual changes, abdominal pain, nausea, vomiting, fevers, loss of bowel or bladder control. Interval History: Reviewed at team meeting, has met goals with therapy. Discussed with Neurology. Feel neuropathy is metabolic, possibly secondary to liver issues ongoing. Patient notes has appointment 04/12 with [facility], advised to get records. MRI c-spine and venous duplex unremarkable. Pain improved with lyrica. Can increase in outpatient setting. Review of Systems Review of Systems All other systems reviewed & are negative unless noted below or in HPI Exam Physical Exam Vital Signs: Temp Pulse Resp BP Pulse Ox O2 Del Method 98.4 F 89 16 120/85 98 Room Air 04/02/23 06:25 09/12/23 06:25 04/02/23 06:25 04/02/23 06:25 04/02/23 06:25 04/02/23 06:25 Narrative: Pleasant NAD RRR Non-labored breathing Moves extremities antigravity Numbness now stocking/glove distribution. Objective Labs 03/28/23 05:15 03/28/23 05:15 Medications and Allergies Allergies and Active Meds: Allergies Penicillins Allergy (Verified 03/21/23 19:05) Rash Active Medications Generic Name Dose Route Start Last Admin Trade Name Freq PRN Reason Stop Dose Admin Acetaminophen 500 mg 03/27/23 14:46 04/01/23 21:20 Acetaminophen 500 Mg Tablet PO 03/26/24 14:45 500 mg Q4H PRN Administration Pain Al Hydrox/Mg Hydrox/Simethicone 30 ml 03/27/23 14:46 Mag Hydrox/Al Hydrox/Simeth 30 Ml Udc PO 03/26/24 14:45 Q4H PRN Indigestion Bisacodyl 10 mg 03/27/23 14:46 Bisacodyl 10 Mg Supp.Rect KS 03/26/24 14:45 DAILY PRN Constipation Diclofenac Sodium 2 gm 03/30/23 09:00 04/01/23 21:22 Diclofenac Sodium 1% Gel 50 Gm Tube TOPICAL 03/29/24 08:59 2 gm TID ROXANNE Administration Docusate Sodium 100 mg 03/27/23 14:46 Docusate 100 Mg Capsule PO 03/26/24 14:45 BID PRN Constipation Docusate Sodium 283 mg 03/27/23 14:46 Docusate Enema 283 Mg/5 Ml Enema KS 03/26/24 14:45 DAILY PRN Constipation Enoxaparin Sodium 40 mg 03/28/23 10:00 04/01/23 08:59 Enoxaparin 40 Mg/0.4 Ml Syringe SUBCUT 03/27/24 09:59 40 mg DAILY@1000 ROXANNE Administration Folic Acid 1 mg 03/28/23 09:00 04/01/23 08:59 Folic Acid 1 Mg Tablet PO 03/27/24 08:59 1 mg QAM ROXANNE Administration Lactulose 30 gm 03/27/23 14:46 Lactulose 20 Gm/30 Ml Udc PO 03/26/24 14:45 DAILY PRN Constipation Lactulose 10 gm 03/28/23 09:00 04/01/23 08:59 Lactulose 20 Gm/30 Ml Udc PO 03/27/24 08:59 10 gm QAM ROXANNE Administration Magnesium Oxide 200 mg 03/28/23 09:00 04/01/23 08:59 Magnesium Oxide 400 Mg Tablet PO 03/27/24 08:59 200 mg QAM ROXANNE Administration Menthol/Methyl Salicylate 1 applic 03/30/23 01:54 03/30/23 02:03 Methyl Salicylat/Menthol Cream 85 Gm Tube TOPICAL 03/29/24 01:53 1 applic TID PRN Administration Pain Potassium Chloride 20 meq 03/27/23 21:00 04/01/23 21:19 Potassium Chloride Er 20 Meq Tab.Er.Prt PO 03/26/24 20:59 20 meq BID ROXANNE Administration Pregabalin 75 mg 03/30/23 11:35 04/01/23 21:20 Pregabalin 75 Mg Capsule PO 09/26/23 11:34 75 mg BID ROXANNE Administration Sennosides 2 tab 03/28/23 12:00 Sennosides 8.6 Mg Tablet PO 03/27/24 11:59 DAILY@12 PRN If no BM in 2 days Sodium Chloride 0 ml 03/27/23 14:46 Sodium Chloride 0.9 % 10 Ml Syringe IV-PUSH 03/26/24 14:45 PRN PRN Flush Sodium Chloride 0 ml 04/01/23 10:07 Sodium Chloride 0.9 % 10 Ml Syringe IV-PUSH 03/31/24 10:06 PRN PRN Flush Thiamine HCl 100 mg 03/28/23 09:00 04/01/23 08:59 Thiamine 100 Mg Tablet PO 03/27/24 08:59 100 mg QAM ROXANNE Administration Trazodone HCl 50 mg 03/28/23 21:09 04/01/23 21:20 Trazodone 50 Mg Tablet PO 03/27/24 21:08 50 mg QHS PRN Administration Insomnia Assessment/Plan Assessment/Plan (1) Sensorimotor neuropathy: Code(s): G62.9 - Polyneuropathy, unspecified Status: Acute (2) Weakness: Code(s): R53.1 - Weakness Status: Acute (3) Bilateral leg paresthesia: Code(s): R20.2 - Paresthesia of skin Status: Acute (4) Impaired mobility and ADLs: Code(s): Z74.09 - Other reduced mobility; Z78.9 - Other specified health status Status: Acute (5) Transaminitis: Code(s): R74.01 - Elevation of levels of liver transaminase levels Status: Acute (6) Weakness of distal arms and legs: Code(s): R29.898 - Other symptoms and signs involving the musculoskeletal system Status: Acute (7) UTI (urinary tract infection): Code(s): N39.0 - Urinary tract infection, site not specified Status: Acute (8) Hypomagnesemia: Code(s): E83.42 - Hypomagnesemia Status: Acute (9) Hypophosphatemia: Code(s): E83.39 - Other disorders of phosphorus metabolism Status: Acute (10) Hx of drug abuse: Code(s): F19.11 - Other psychoactive substance abuse, in remission Status: Acute (11) History of ETOH abuse: Code(s): F10.11 - Alcohol abuse, in remission Status: Acute (12) Folate deficiency: Code(s): E53.8 - Deficiency of other specified B group vitamins Status: Acute Plan This is a 27-year-old female with past medical history of alcohol and heroin abuse who presents to the rehab unit with multifactorial functional decline secondary to severe bilateral peripheral neuropathy, likely due to nutritional deficiencies and alcohol abuse.? This patient will require 3 hours/day of PT/OT to progress to goal of modified independent for all ADLs, ambulation, transfers. PT to improve patient's strength, endurance, bed mobility, transfers (sit- stand), standing balance, gait quality on level surfaces and stairs, coordination and functional ADL skills.? We will also work to improve patient's safety awareness during transfers and ambulation. OT for basic ADL retraining (bathing, dressing, toileting, continence, grooming,feeding, transferring), to increase activity tolerance and functional mobility to evaluate for adaptive assistive device.? We will work to improve patient's endurance and educate patient on fall prevention and energy conservation techniques-pacing strategies and proper breathing techniques during functional tasks.? Patient education Pressure ulcer prophylaxis; encourage mobilization, frequent postural changes, pressure-relief techniques DVT prophylaxis Encourage deep breathing exercise incentive spirometry. Monitor bladder. Toileting schedule. Continue current bladder management, with scans as needed and CIC if needed. Start bowel care program every day to obtain continence, prevent ileus. Maintain fall precautions Gait and balance retraining Provision of the necessary gait aids and functional adaptive equipment? to enhance the patient's a functional confucianist Encourage deep breathing exercises and incentive spirometry RD evaluation Ensure adequate nutrition and hydration Discharge planning. Updates/Medical Issues -Appreciate Neurology f/u. Feel neuropathy is likely metabolic in nature possibly related to liver issues. ---Will establish with [facility] Gastro, also recommended evaluation by [facility] Neurology. -MR cervical spine and venous duplex reviewed-unremarkable. -Continue Lyrica, can increase in outpatient setting. Hospitalist to assist with management of comorbid medical conditions #. Pain control: Tylenol PRN, topical modalities add Lyrica. #. Bowel and bladder:? Continent of bowel/bladder #. Skin: (pressure ulcer/surgical site) no pressure injuries on admission #. Sleep: Optimize sleep-wake cycle DVT prophylaxis: Lovenox 40 mg daily Functional status: Impaired.? Limited by pain and weakness Discharge planning: Plan for home Saturday. Plan: I completed a substantive portion of this encounter, the medical decision makingportion of this note in its entirety, including Allied health note review, nursing note review, information resource consultant note review, discussion with nursing and case management, and more than 50% of my time was spent on counseling and coordination of care, time spent 25 minutes ? Patient was personally seen by me, Dr. Giron, on the day of encounter, I reviewed the history and the relevant portions of the chart, including current orders, allied health and information resource consultant notes, labs/imaging and performed wren elements of exam and I formulated the plan of care and facilitated the medical decision making. Documented By: Marc Giron MD 04/02/23913 Signed By: <Electronically signed by Marc Giron MD> 04/02/23 120 [facility] Work Phone: [phone]) 324-277609-11-2023 Progress note Author David Chowdary [facility] April 01, 2023 3:01pm Note Date/Time April 01, 2023 2:58pm [facility] [address] [place] [address] Neurology Progress Note Signed Patient: Rica Stout MR#: [id number] : 1995 Acct:[id number] Age/Sex: 27 / F Adm Date: 3 Loc: Room: [address] [place] [address] Type: ADM IN Attending Dr: Marc Giron MD Copies to: ~ Date of Service: 04/01/2023 Subjective Subjective Narrative: The patient states that her symptoms are symptomatically improved with Lyrica. She denies any side effects to this medication. The patient is still having some difficulty sleeping. Review of Systems Review of Systems All other systems reviewed & are negative unless noted below or in HPI Exam Physical Exam Vital Signs: Temp Pulse Resp BP Pulse Ox O2 Del Method 98.1 F 99 H 16 124/78 97 Room Air 04/01/23 09:01 04/01/23 09:01 04/01/23 09:01 04/01/23 09:01 04/01/23 09:01 04/01/23 09:23 Neuro Other: Neurological exam: General: The patient is awake alert and oriented.? Language is intact. Neurovascular exam: No carotid bruits.? Regular rate and rhythm Cranial nerves: Pupils equal round reactive light and accommodation, extraocularmovements intact, visual ceballos are full to confrontation, sensations intact in the face, hearing is intact to finger rub, palate elevates bilaterally, tongue protrudes midline, shoulder shrug is symmetric. Motor: Strength testing is 5 out of 5 in all 4 extremities, deep tendon reflexesare absent in the lower extremities and trace in the upper extremities symmetricthroughout, plantar reflexes flexor, tone is normal throughout. Sensory: Diminished proprioception, light touch, and pinprick in the distal lower extremities Cerebellar/gait: No ataxia noted on finger to nose or gait testing. Objective Vital Signs Vital Signs: Vital Signs - 24 hr 03/31/23 21:05 04/01/23 06:03 04/01/23 09:01 Temperature 98.1 F 98.1 F Pulse Rate 93 H 99 H Respiratory Rate 16 16 Blood Pressure 116/79 124/78 02 Sat by Pulse Oximetry 95 97 Oxygen Delivery Method Room Air Room Air Room Air 04/01/23 09:23 Temperature Pulse Rate Respiratory Rate Blood Pressure 02 Sat by Pulse Oximetry Oxygen Delivery Method Room Air Labs 03/28/23 05:15 03/28/23 05:15 Therapy Recommendations Therapy Recommendations: ST Recommendations Liquid Consistency Thin Liquids Recommendation Solid Consistency Regular Solids Recommendations Meat Consistency Whole Meats Recommendations Medication Administration Whole Pills,Give Pills with Water Assessment/Plan (1) Sensorimotor neuropathy: Assessment/Problem Details: evere length dependent polyneuropathy, with sensory loss and paresthesias from about the knees down bilaterally and perhaps in fingertips as well.? Complete loss of vibratory sensation and proprioception in distal lower extremities, and has related positive Romberg sign and significant gait instability.? With the currently available laboratory diagnostics, most likely explanation for the polyneuropathy may be nutritional, specifically folate deficiency.? Folate deficiency, in turn, may be related to her past chronic significant alcohol usage, from which she now largely abstains, and more recently poor nutrition.? ? Based on a normal CSF protein level and no presence of enhanced or thickened lumbar nerve roots, I do not think that acute inflammatory demyelinating polyradiculoneuropathy or chronic inflammatory demyelinating polyradiculoneuropathy are playing a role. Given her history and current liver dysfunction I also have concern for her neuropathy being connected to liver-related causes such as hepatitis C. I have reviewed the patient's MRI of the cervical spine which to my interpretation does not reveal evidence of an intraspinal canal lesion. I reviewed the extensive evaluation the patient had previous to rehabilitation admission including previous hospital admission and outpatient evaluation I counseled the patient on the possible diagnosis, evaluation, treatment options The patient should be scheduled with alarm security or surveillance monitor as outpatient for further treatment of underlying liver dysfunction The patient can follow-up in the adult outpatient neurology clinic with Dr. Arrington We will continue to follow with supportive therapy. I discussed the case with Dr. Giron Code(s): G62.9 - Polyneuropathy, unspecified Status: Acute Documented By: David Chowdary MD 04/01/23 1457 Signed By: <Electronically signed by MD David Chowdary> 04/01/23 8525 [facility] Work Phone: 1(203) [phone] Progress note Author Marc Giron [facility] April 01, 2023 11:55am Note Date/Time April 01, 2023 10:18am [facility] [address] [place] [address] Physiatry(Rehab) Progress Note Signed Patient: Rica Stout MR#: [id number] : 1995 Acct:[id number] Age/Sex: 27 / F Adm Date: 3 Loc: 5T Room: 9S1977-4 Type: ADM IN Attending Dr: Marc Giron MD Copies to: ~ Date of Service: 04/01/2023 Subjective Subjective Narrative: Ms. Stout is a 27 year old female with hx of heroin and alcohol abuse who initially presented to our ER late on the evening of 03/21/23 by recommendation of her neurologist after an abnormal EMG.? Patient explains that she began experiencing bilateral lower extremity weakness around July of this year.? She states prior to symptom onset, she was functioning completely normal and wascompletely independent with her ADLs.? Patient explains that one day in July,she was walking her legs just gave out on her. ? This happened several more times over the next couple of months with associated worsening bilateral lower extremity weakness.? States she had to begin using crutches for ambulation because she did not feel steady on her legs.? Her weakness continued to worsen and she additionally began to develop paresthesias in the bilateral lower extremities with a burning pain.? The paresthesias and burning pain began distally and began slowly extending proximally.? Her symptoms have continued to worsen and she has also recently developed weakness in her hands bilaterally.? Alumbar puncture was performed in the emergency room which was negative for Guillain-Del Rio? syndrome.? Lumbar and brain MRI in the hospital were negative foracute process.? Patient was found to have several electrolyte/nutritional deficiencies including hypomagnesemia, hypokalemia, hypophosphatemia, low folate, borderline low B12 all of which were replaced during her hospital stay.? She also received thiamine supplementation during the stay.? Patient was also found to have elevated liver enzymes, therefore underwent abdominal ultrasound.? The ultrasound showed a prominent appearing liver measuring nearly 17 cm in greatesttransverse dimension; the liver is heterogeneous with relatively poor penetration which is suspicious for hepatic steatosis versus acute hepatitis.? Hepatitis C antibody was found to be nonreactive.? On the day of discharge from the inpatient hospital floor to the inpatient rehab unit, the patient was reportedly beginning to feel slightly better.? She had completed a course of antibiotics for Klebsiella UTI.? She was afebrile and hemodynamically stable.? She was seen in consult by Dr. Giron who agreed with admission to the inpatient rehab floor. Upon my evaluation the patient on the inpatient rehab floor, she is laying comfortably in bed in no acute distress.? She states her numbness, paresthesias and burning pain are all relatively similar to how they have been.? Patient again reiterates that prior to July she was completely normal and completing all of her ADLs independently.? She has since required crutches for ambulation and has had significant difficulty with many of her ADLs.? States her goals for rehab include ideally going back to being independent, but at minimum would liketo be independent with ambulation again so she can interact more with her children and take them to places.? The patient lives in a two-story home home with 2 steps to get into the door.? Patient states she has been having to crawl up the stairs because she does not have the strength to walk up them.? Patient previously worked at [employer], but had to quit her job earlier this year due to her symptoms.? Currently she denies any chest pain, shortness of breath, acute visual changes, abdominal pain, nausea, vomiting, fevers, loss of bowel or bladder control. Interval History: Improved pain control with lyrica added. Noted increased lower extremity edema, has photo from weekend with marked increase, although looks better today. Check venous duplex. Reviewed Neurology consult, will complete MRI c/spine. Review of Systems Review of Systems All other systems reviewed & are negative unless noted below or in HPI Exam Physical Exam Vital Signs: Temp Pulse Resp BP Pulse Ox O2 Del Method 98.1 F 99 H 16 124/78 97 Room Air 04/01/23 09:01 04/01/23 09:01 04/01/23 09:01 04/01/23 09:01 04/01/23 09:01 04/01/23 09:23 Narrative: Pleasant NAD RRR Non-labored breathing Moves extremities antigravity Numbness now stocking/glove distribution. Objective Labs 03/28/23 05:15 03/28/23 05:15 Medications and Allergies Allergies and Active Meds: Allergies Penicillins Allergy (Verified 03/21/23 19:05) Rash Active Medications Generic Name Dose Route Start Last Admin Trade Name Freq PRN Reason Stop Dose Admin Acetaminophen 500 mg 03/27/23 14:46 03/31/23 21:01 Acetaminophen 500 Mg Tablet PO 03/26/24 14:45 500 mg Q4H PRN Administration Pain Al Hydrox/Mg Hydrox/Simethicone 30 ml 03/27/23 14:46 Mag Hydrox/Al Hydrox/Simeth 30 Ml Udc PO 03/26/24 14:45 Q4H PRN Indigestion Bisacodyl 10 mg 03/27/23 14:46 Bisacodyl 10 Mg Supp.Rect KS 03/26/24 14:45 DAILY PRN Constipation Diclofenac Sodium 2 gm 03/30/23 09:00 04/01/23 08:59 Diclofenac Sodium 1% Gel 50 Gm Tube TOPICAL 03/29/24 08:59 2 gm TID ROXANNE Administration Docusate Sodium 100 mg 03/27/23 14:46 Docusate 100 Mg Capsule PO 03/26/24 14:45 BID PRN Constipation Docusate Sodium 283 mg 03/27/23 14:46 Docusate Enema 283 Mg/5 Ml Enema KS 03/26/24 14:45 DAILY PRN Constipation Enoxaparin Sodium 40 mg 03/28/23 10:00 04/01/23 08:59 Enoxaparin 40 Mg/0.4 Ml Syringe SUBCUT 03/27/24 09:59 40 mg DAILY@1000 ROXANNE Administration Folic Acid 1 mg 03/28/23 09:00 04/01/23 08:59 Folic Acid 1 Mg Tablet PO 03/27/24 08:59 1 mg QAM ROXANNE Administration Lactulose 30 gm 03/27/23 14:46 Lactulose 20 Gm/30 Ml Udc PO 03/26/24 14:45 DAILY PRN Constipation Lactulose 10 gm 03/28/23 09:00 04/01/23 08:59 Lactulose 20 Gm/30 Ml Udc PO 03/27/24 08:59 10 gm QAM ROXANNE Administration Magnesium Oxide 200 mg 03/28/23 09:00 04/01/23 08:59 Magnesium Oxide 400 Mg Tablet PO 03/27/24 08:59 200 mg QAM ROXANNE Administration Menthol/Methyl Salicylate 1 applic 03/30/23 01:54 03/30/23 02:03 Methyl Salicylat/Menthol Cream 85 Gm Tube TOPICAL 03/29/24 01:53 1 applic TID PRN Administration Pain Potassium Chloride 20 meq 03/27/23 21:00 04/01/23 08:59 Potassium Chloride Er 20 Meq Tab.Er.Prt PO 03/26/24 20:59 20 meq BID ROXANNE Administration Pregabalin 75 mg 03/30/23 11:35 04/01/23 08:59 Pregabalin 75 Mg Capsule PO 09/26/23 11:34 75 mg BID ROXANNE Administration Sennosides 2 tab 03/28/23 12:00 Sennosides 8.6 Mg Tablet PO 03/27/24 11:59 DAILY@12 PRN If no BM in 2 days Sodium Chloride 0 ml 03/27/23 14:46 Sodium Chloride 0.9 % 10 Ml Syringe IV-PUSH 03/26/24 14:45 PRN PRN Flush Sodium Chloride 0 ml 04/01/23 10:07 Sodium Chloride 0.9 % 10 Ml Syringe IV-PUSH 03/31/24 10:06 PRN PRN Flush Thiamine HCl 100 mg 03/28/23 09:00 04/01/23 08:59 Thiamine 100 Mg Tablet PO 03/27/24 08:59 100 mg QAM ROXANNE Administration Trazodone HCl 50 mg 03/28/23 21:09 03/31/23 21:01 Trazodone 50 Mg Tablet PO 03/27/24 21:08 50 mg QHS PRN Administration Insomnia Assessment/Plan Assessment/Plan (1) Sensorimotor neuropathy: Code(s): G62.9 - Polyneuropathy, unspecified Status: Acute (2) Weakness: Code(s): R53.1 - Weakness Status: Acute (3) Bilateral leg paresthesia: Code(s): R20.2 - Paresthesia of skin Status: Acute (4) Impaired mobility and ADLs: Code(s): Z74.09 - Other reduced mobility; Z78.9 - Other specified health status Status: Acute (5) Transaminitis: Code(s): R74.01 - Elevation of levels of liver transaminase levels Status: Acute (6) Weakness of distal arms and legs: Code(s): R29.898 - Other symptoms and signs involving the musculoskeletal system Status: Acute (7) UTI (urinary tract infection): Code(s): N39.0 - Urinary tract infection, site not specified Status: Acute (8) Hypomagnesemia: Code(s): E83.42 - Hypomagnesemia Status: Acute (9) Hypophosphatemia: Code(s): E83.39 - Other disorders of phosphorus metabolism Status: Acute (10) Hx of drug abuse: Code(s): F19.11 - Other psychoactive substance abuse, in remission Status: Acute (11) History of ETOH abuse: Code(s): F10.11 - Alcohol abuse, in remission Status: Acute (12) Folate deficiency: Code(s): E53.8 - Deficiency of other specified B group vitamins Status: Acute Plan This is a 27-year-old female with past medical history of alcohol and heroin abuse who presents to the rehab unit with multifactorial functional decline secondary to severe bilateral peripheral neuropathy, likely due to nutritional deficiencies and alcohol abuse.? This patient will require 3 hours/day of PT/OT to progress to goal of modified independent for all ADLs, ambulation, transfers. PT to improve patient's strength, endurance, bed mobility, transfers (sit- stand), standing balance, gait quality on level surfaces and stairs, coordination and functional ADL skills.? We will also work to improve patient's safety awareness during transfers and ambulation. OT for basic ADL retraining (bathing, dressing, toileting, continence, grooming,feeding, transferring), to increase activity tolerance and functional mobility to evaluate for adaptive assistive device.? We will work to improve patient's endurance and educate patient on fall prevention and energy conservation techniques-pacing strategies and proper breathing techniques during functional tasks.? Patient education Pressure ulcer prophylaxis; encourage mobilization, frequent postural changes, pressure-relief techniques DVT prophylaxis Encourage deep breathing exercise incentive spirometry. Monitor bladder. Toileting schedule. Continue current bladder management, with scans as needed and CIC if needed. Start bowel care program every day to obtain continence, prevent ileus. Maintain fall precautions Gait and balance retraining Provision of the necessary gait aids and functional adaptive equipment? to enhance the patient's a functional confucianist Encourage deep breathing exercises and incentive spirometry RD evaluation Ensure adequate nutrition and hydration Discharge planning. Updates/Medical Issues -Appreciate Neurology f/u. Will order MR Cervical spine w/contrast -Check venous duplex -Continue Lyrica. Hospitalist to assist with management of comorbid medical conditions #. Pain control: Tylenol PRN, topical modalities add Lyrica. #. Bowel and bladder:? Continent of bowel/bladder #. Skin: (pressure ulcer/surgical site) no pressure injuries on admission #. Sleep: Optimize sleep-wake cycle DVT prophylaxis: Lovenox 40 mg daily Functional status: Impaired.? Limited by pain and weakness Discharge planning: Plan for home Saturday. Plan: I completed a substantive portion of this encounter, the medical decision makingportion of this note in its entirety, including Allied health note review, nursing note review, information resource consultant note review, discussion with nursing and case management, and more than 50% of my time was spent on counseling and coordination of care, time spent 25 minutes ? Patient was personally seen by me, Dr. Giron, on the day of encounter, I reviewed the history and the relevant portions of the chart, including current orders, allied health and information resource consultant notes, labs/imaging and performed wren elements of exam and I formulated the plan of care and facilitated the medical decision making. Documented By: Marc Giron MD 04/01/23 1017 Signed By: <Electronically signed by Marc Giron MD> 04/01/23 8063 [facility] Work Phone: [phone]) 491-579109-09-2023 Consult note Author David Chowdary [facility] March 30, 2023 1:15pm Note Date/Time March 30, 2023 1:13pm [facility] [address] [place] [address] Neurology Consult Note Signed Patient: Rica Stout MR#: [id number] : 1995 Acct:[id number] Age/Sex: 27 / F Adm Date: 3 Loc: Room: [address] [place] [address] Type: ADM IN Attending Dr: Marc Giron MD Copies to: MD Danuta Hernandez, ANDREA Chowdary MD~ HPI Consult Date: 03/30/23 Membership Assistant: David Chowdary MD Reason for consult: Polyneuropathy Consult Narrative HPI: The patient is a 27-year-old female who I was asked to see in neurological consultation by Dr. Giron. The patient was admitted to the hospital after an EMG which revealed severe peripheral neuropathy. The patient reports sensory disturbance in the feet which began in July of this year and has progressed to neuropathic type pain. The patient was evaluated in the hospital for possible Guillain-Del Rio? syndrome with a lumbar puncture which did not reveal anyabnormalities. The patient did have an MRI scan of the brain which did not reveal any intracranial abnormalities. The patient had an MRI of the lumbar spine which did not reveal any evidence of intraspinal canal lesion. The patient has been treated for length dependent neuropathy possibly nutritional without evidence of inflammatory process. The patient is admitted to rehab and states that she has had some numbness in her fingertips over the last several days. The patient denies any double vision, slurred speech, or difficulty swallowing. The patient does have a history of alcohol abuse, substance abuse with heroin use in the past and liver cirrhosis. The patient also has a historyof hepatitis C. The patient denies any shortness of breath, skin rash, or muscle aches. Review of Systems Review of Systems All other systems reviewed & are negative unless noted below or in HPI [facility] Medical History Hyperammonemia No pertinent past medical history Transaminitis Surgical History History of section Family History Mother Cancer Breast Social History Smoking Status: Current every day smoker Tobacco Type: e-cigarettes Substance Use Type: None Substance Abuse Comment: daily drinker previously, none in the past week. Meds Medications and Allergies Allergies Penicillins Allergy (Verified 03/21/23 19:05) Rash Home Medications lactulose 10 gram/15 mL oral solution 10 g PO QAM 03/21/23 [History Confirmed 03/27/23] magnesium oxide 200 mg PO QAM 03/21/23 [History Confirmed 03/27/23] potassium chloride 20 mEq tablet,extended release 20 meq PO BID 03/21/23 [History Confirmed 03/27/23] folic acid 1 mg tablet 1 mg PO QAM 03/27/23 [History Confirmed 03/27/23] thiamine HCl (vitamin B1) 100 mg tablet 100 mg PO QAM 03/27/23 [History Confirmed 03/27/23] Exam Physical Exam Vital Signs: Temp Pulse Resp BP Pulse Ox O2 Del Method 98.0 F 90 16 127/81 98 Room Air 03/30/23 08:10 03/30/23 08:10 03/30/23 08:10 03/30/23 08:10 03/30/23 08:10 03/30/23 08:10 Neuro Other: Neurological exam: General: The patient is awake alert and oriented. Language is intact. Neurovascular exam: No carotid bruits. Regular rate and rhythm Cranial nerves: Pupils equal round reactive light and accommodation, fundoscopicexam is normal, extraocular movements intact, visual ceballos are full to confrontation, sensations intact in the face, hearing is intact to finger rub, palate elevates bilaterally, tongue protrudes midline, shoulder shrug is symmetric. Motor: Strength testing is 5 out of 5 in all 4 extremities, deep tendon reflexesare absent in the lower extremities and trace in the upper extremities symmetricthroughout, plantar reflexes flexor, tone is normal throughout. Sensory: Diminished proprioception, light touch, and pinprick in the distal lower extremities Cerebellar/gait: No ataxia noted on finger to nose or gait testing. Results Laboratory Findings 03/28/23 05:15 03/28/23 05:15 Therapy Recommendations Therapy Recommendations: ST Recommendations Liquid Consistency Thin Liquids Recommendation Solid Consistency Regular Solids Recommendations Meat Consistency Whole Meats Recommendations Medication Administration Whole Pills,Give Pills with Water Assessment/Plan (1) Sensorimotor neuropathy: Assessment/Problem Details: evere length dependent polyneuropathy, with sensory loss and paresthesias from about the knees down bilaterally and perhaps in fingertips as well.? Complete loss of vibratory sensation and proprioception in distal lower extremities, and has related positive Romberg sign and significant gait instability.? With the currently available laboratory diagnostics, most likely explanation for the polyneuropathy may be nutritional, specifically folate deficiency.? Folate deficiency, in turn, may be related to her past chronic significant alcohol usage,from which she now largely abstains, and more recently poor nutrition.? Given her history and current liver dysfunction that has not been fully worked up, I also have concern for her neuropathy being connected to liver-related causes such as hepatitis C.? Based on a normal CSF protein level and no presence of enhanced or thickened lumbar nerve roots, I do not think that acute inflammatorydemyelinating polyradiculoneuropathy or chronic inflammatory demyelinating polyradiculoneuropathy are playing a role. Given the patient's progression to the upper extremities consideration for MRI of the cervical spine to assess for an intraspinal canal lesion. I reviewed the extensive evaluation the patient had previous to rehabilitation admission including previous hospital admission and outpatient evaluation I counseled the patient and her family on the possible diagnosis, evaluation, treatment options We will continue to follow with supportive therapy. Code(s): G62.9 - Polyneuropathy, unspecified Status: Acute Documented By: David Chowdary MD 03/30/231309 Signed By: <Electronically signed by MD David Chowdary> 03/30/23 1315 [facility] Work Phone: 1(484) 878-132209-09-2023 Progress note Author Marc Giron [facility] March 30, 2023 11:43am Note Date/Time March 30, 2023 11:43am [facility] [address] [place] [address] Physiatry(Rehab) Progress Note Signed Patient: Rica Stout MR#: [id number] : 1995 Acct:[id number] Age/Sex: 27 / F Adm Date: 3 Loc: Room: [address] [place] [address] Type: ADM IN Attending Dr: Marc Giron MD Copies to: ~ Date of Service: 03/30/2023 Subjective Subjective Narrative: Ms. Stout is a 27 year old female with hx of heroin and alcohol abuse who initially presented to our ER late on the evening of 03/21/23 by recommendation of her neurologist after an abnormal EMG.? Patient explains that she began experiencing bilateral lower extremity weakness around July of this year.? She states prior to symptom onset, she was functioning completely normal and wascompletely independent with her ADLs.? Patient explains that one day in July,she was walking her legs just gave out on her. ? This happened several more times over the next couple of months with associated worsening bilateral lower extremity weakness.? States she had to begin using crutches for ambulation because she did not feel steady on her legs.? Her weakness continued to worsen and she additionally began to develop paresthesias in the bilateral lower extremities with a burning pain.? The paresthesias and burning pain began distally and began slowly extending proximally.? Her symptoms have continued to worsen and she has also recently developed weakness in her hands bilaterally.? Alumbar puncture was performed in the emergency room which was negative for Guillain-Del Rio? syndrome.? Lumbar and brain MRI in the hospital were negative foracute process.? Patient was found to have several electrolyte/nutritional deficiencies including hypomagnesemia, hypokalemia, hypophosphatemia, low folate, borderline low B12 all of which were replaced during her hospital stay.? She also received thiamine supplementation during the stay.? Patient was also found to have elevated liver enzymes, therefore underwent abdominal ultrasound.? The ultrasound showed a prominent appearing liver measuring nearly 17 cm in greatesttransverse dimension; the liver is heterogeneous with relatively poor penetration which is suspicious for hepatic steatosis versus acute hepatitis.? Hepatitis C antibody was found to be nonreactive.? On the day of discharge from the inpatient hospital floor to the inpatient rehab unit, the patient was reportedly beginning to feel slightly better.? She had completed a course of antibiotics for Klebsiella UTI.? She was afebrile and hemodynamically stable.? She was seen in consult by Dr. Giron who agreed with admission to the inpatient rehab floor. Upon my evaluation the patient on the inpatient rehab floor, she is laying comfortably in bed in no acute distress.? She states her numbness, paresthesias and burning pain are all relatively similar to how they have been.? Patient again reiterates that prior to July she was completely normal and completing all of her ADLs independently.? She has since required crutches for ambulation and has had significant difficulty with many of her ADLs.? States her goals for rehab include ideally going back to being independent, but at minimum would liketo be independent with ambulation again so she can interact more with her children and take them to places.? The patient lives in a two-story home home with 2 steps to get into the door.? Patient states she has been having to crawl up the stairs because she does not have the strength to walk up them.? Patient previously worked at a [employer], but had to quit her job earlier this year due to her symptoms.? Currently she denies any chest pain, shortness of breath, acute visual changes, abdominal pain, nausea, vomiting, fevers, loss of bowel or bladder control. Interval History: Reports no relief with tramadol and gabapentin. Asking for medication adjustments, discussed Cymbalta/Effexor and Lyrica, she would like to trial Lyrica. Can continue topical modalities. Reports some increased numbness in hands, progressing proximally from fingertipsinto palm and wrists. Ambulatory with walker, 100', standby assist. Review of Systems Review of Systems All other systems reviewed & are negative unless noted below or in HPI Exam Physical Exam Vital Signs: Temp Pulse Resp BP Pulse Ox O2 Del Method 98.0 F 90 16 127/81 98 Room Air 03/30/23 08:10 03/30/23 08:10 03/30/23 08:10 03/30/23 08:10 03/30/23 08:10 03/30/23 08:10 Narrative: Pleasant NAD RRR Non-labored breathing Moves extremities antigravity Numbness now stocking/glove distribution. Objective Labs 03/28/23 05:15 03/28/23 05:15 Medications and Allergies Allergies and Active Meds: Allergies Penicillins Allergy (Verified 03/21/23 19:05) Rash Active Medications Generic Name Dose Route Start Last Admin Trade Name Freq PRN Reason Stop Dose Admin Acetaminophen 500 mg 03/27/23 14:46 03/30/23 08:13 Acetaminophen 500 Mg Tablet PO 03/26/24 14:45 500 mg Q4H PRN Administration Pain Al Hydrox/Mg Hydrox/Simethicone 30 ml 03/27/23 14:46 Mag Hydrox/Al Hydrox/Simeth 30 Ml Udc PO 03/26/24 14:45 Q4H PRN Indigestion Bisacodyl 10 mg 03/27/23 14:46 Bisacodyl 10 Mg Supp.Rect KS 03/26/24 14:45 DAILY PRN Constipation Diclofenac Sodium 2 gm 03/30/23 09:00 03/30/23 09:53 Diclofenac Sodium 1% Gel 50 Gm Tube TOPICAL 03/29/24 08:59 2 gm TID ROXANNE Administration Docusate Sodium 100 mg 03/27/23 14:46 Docusate 100 Mg Capsule PO 03/26/24 14:45 BID PRN Constipation Docusate Sodium 283 mg 03/27/23 14:46 Docusate Enema 283 Mg/5 Ml Enema KS 03/26/24 14:45 DAILY PRN Constipation Enoxaparin Sodium 40 mg 03/28/23 10:00 03/30/23 08:13 Enoxaparin 40 Mg/0.4 Ml Syringe SUBCUT 03/27/24 09:59 40 mg DAILY@1000 ROXANNE Administration Folic Acid 1 mg 03/28/23 09:00 03/30/23 08:13 Folic Acid 1 Mg Tablet PO 03/27/24 08:59 1 mg QAM ROXANNE Administration Lactulose 30 gm 03/27/23 14:46 Lactulose 20 Gm/30 Ml Udc PO 03/26/24 14:45 DAILY PRN Constipation Lactulose 10 gm 03/28/23 09:00 03/30/23 08:13 Lactulose 20 Gm/30 Ml Udc PO 03/27/24 08:59 10 gm QAM ROXANNE Administration Magnesium Oxide 200 mg 03/28/23 09:00 03/30/23 08:12 Magnesium Oxide 400 Mg Tablet PO 03/27/24 08:59 200 mg QAM ROXANNE Administration Menthol/Methyl Salicylate 1 applic 03/30/23 01:54 03/30/23 02:03 Methyl Salicylat/Menthol Cream 85 Gm Tube TOPICAL 03/29/24 01:53 1 applic TID PRN Administration Pain Potassium Chloride 20 meq 03/27/23 21:00 03/30/23 08:13 Potassium Chloride Er 20 Meq Tab.Er.Prt PO 03/26/24 20:59 20 meq BID ROXANNE Administration Pregabalin 75 mg 03/30/23 11:35 Pregabalin 75 Mg Capsule PO 09/26/23 11:34 BID ROXANNE Sennosides 2 tab 03/28/23 12:00 Sennosides 8.6 Mg Tablet PO 03/27/24 11:59 DAILY@12 PRN If no BM in 2 days Sodium Chloride 0 ml 03/27/23 14:46 Sodium Chloride 0.9 % 10 Ml Syringe IV-PUSH 03/26/24 14:45 PRN PRN Flush Thiamine HCl 100 mg 03/28/23 09:00 03/30/23 08:13 Thiamine 100 Mg Tablet PO 03/27/24 08:59 100 mg QAM ROXANNE Administration Trazodone HCl 50 mg 03/28/23 21:09 03/29/23 20:11 Trazodone 50 Mg Tablet PO 03/27/24 21:08 50 mg QHS PRN Administration Insomnia Assessment/Plan Assessment/Plan (1) Sensorimotor neuropathy: Code(s): G62.9 - Polyneuropathy, unspecified Status: Acute (2) Weakness: Code(s): R53.1 - Weakness Status: Acute (3) Bilateral leg paresthesia: Code(s): R20.2 - Paresthesia of skin Status: Acute (4) Impaired mobility and ADLs: Code(s): Z74.09 - Other reduced mobility; Z78.9 - Other specified health status Status: Acute (5) Transaminitis: Code(s): R74.01 - Elevation of levels of liver transaminase levels Status: Acute (6) Weakness of distal arms and legs: Code(s): R29.898 - Other symptoms and signs involving the musculoskeletal system Status: Acute (7) UTI (urinary tract infection): Code(s): N39.0 - Urinary tract infection, site not specified Status: Acute (8) Hypomagnesemia: Code(s): E83.42 - Hypomagnesemia Status: Acute (9) Hypophosphatemia: Code(s): E83.39 - Other disorders of phosphorus metabolism Status: Acute (10) Hx of drug abuse: Code(s): F19.11 - Other psychoactive substance abuse, in remission Status: Acute (11) History of ETOH abuse: Code(s): F10.11 - Alcohol abuse, in remission Status: Acute (12) Folate deficiency: Code(s): E53.8 - Deficiency of other specified B group vitamins Status: Acute Plan This is a 27-year-old female with past medical history of alcohol and heroin abuse who presents to the rehab unit with multifactorial functional decline secondary to severe bilateral peripheral neuropathy, likely due to nutritional deficiencies and alcohol abuse.? This patient will require 3 hours/day of PT/OT to progress to goal of modified independent for all ADLs, ambulation, transfers. PT to improve patient's strength, endurance, bed mobility, transfers (sit- stand), standing balance, gait quality on level surfaces and stairs, coordination and functional ADL skills.? We will also work to improve patient's safety awareness during transfers and ambulation. OT for basic ADL retraining (bathing, dressing, toileting, continence, grooming,feeding, transferring), to increase activity tolerance and functional mobility to evaluate for adaptive assistive device.? We will work to improve patient's endurance and educate patient on fall prevention and energy conservation techniques-pacing strategies and proper breathing techniques during functional tasks.? Patient education Pressure ulcer prophylaxis; encourage mobilization, frequent postural changes, pressure-relief techniques DVT prophylaxis Encourage deep breathing exercise incentive spirometry. Monitor bladder. Toileting schedule. Continue current bladder management, with scans as needed and CIC if needed. Start bowel care program every day to obtain continence, prevent ileus. Maintain fall precautions Gait and balance retraining Provision of the necessary gait aids and functional adaptive equipment? to enhance the patient's a functional confucianist Encourage deep breathing exercises and incentive spirometry RD evaluation Ensure adequate nutrition and hydration Discharge planning. Updates/Medical Issues -She reports negative HIV/Hep testing outpatient. -Continue management as outlined above -D/c gabapentin/tramadol; Start Lyrica, topical modalities. -Continue Thiamine and Folate for nutritional deficiency -Neurology to follow on rehab unit, subjective c/o proximally migrating numbnessover last few days, from fingertips to palms/wrists. Hospitalist to assist with management of comorbid medical conditions #. Pain control: Tylenol PRN, topical modalities add Lyrica. #. Bowel and bladder:? Continent of bowel/bladder #. Skin: (pressure ulcer/surgical site) no pressure injuries on admission #. Sleep: Optimize sleep-wake cycle DVT prophylaxis: Lovenox 40 mg daily Functional status: Impaired.? Limited by pain and weakness Discharge planning: ELOS 1-2 weeks Plan: I completed a substantive portion of this encounter, the medical decision makingportion of this note in its entirety, including Allied health note review, nursing note review, information resource consultant note review, discussion with nursing and case management, and more than 50% of my time was spent on counseling and coordination of care, time spent 25 minutes ? Patient was personally seen by me, Dr. Giron, on the day of encounter, I reviewed the history and the relevant portions of the chart, including current orders, allied health and information resource consultant notes, labs/imaging and performed wren elements of exam and I formulated the plan of care and facilitated the medical decision making. Documented By: Marc Giron MD 03/30/23 1137 Signed By: <Electronically signed by Marc Giron MD> 03/30/23 1143 [facility] Work Phone: 1(145) 272-519509-07-2023 History and physical note Author Jamil Salazar [facility] March 28, 2023 1:36pm Note Date/Time March 28, 2023 9:14am [facility] [address] [place] [address] Physiatry (Rehab) H&P Signed Patient: Rica Stout MR#: [id number] : 1995 Acct:[id number] Age/Sex: 27 / F Adm Date: 3 Loc: 5T Room: 3T6656-0 Type: ADM IN Attending Dr: Marc Giron MD Copies to: MD Marc Carty MD Kyle Denihan, DO,RES Danuta Araujo, DIRECTOR [employer]PPL[employer]ITY~ <Chip Lemus DO, RES - Last Filed: 03/28/23 11:04> Date of Service: 03/28/2023 HPI <Chip Lemus DO, RES - Last Filed: 03/28/23 11:04> The patient was seen and examined on: 03/28/23 Chief complaint: Bilateral lower extremity weakness History of Present Illness: Ms. Stout is a 27 year old female with hx of heroin and alcohol abuse who initially presented to our ER late on the evening of 03/21/23 by recommendation of her neurologist after an abnormal EMG. Patient explains that she began experiencing bilateral lower extremity weakness around July of this year. She states prior to symptom onset, she was functioning completely normal and wascompletely independent with her ADLs. Patient explains that one day in July,she was walking her legs just gave out on her. This happened several more times over the next couple of months with associated worsening bilateral lower extremity weakness. States she had to begin using crutches for ambulation because she did not feel steady on her legs. Her weakness continued to worsen and she additionally began to develop paresthesias in the bilateral lower extremities with a burning pain. The paresthesias and burning pain began distally and began slowly extending proximally. Her symptoms have continued to worsen and she has also recently developed weakness in her hands bilaterally. Alumbar puncture was performed in the emergency room which was negative for Guillain-Del Rio? syndrome. Lumbar and brain MRI in the hospital were negative foracute process. Patient was found to have several electrolyte/nutritional deficiencies including hypomagnesemia, hypokalemia, hypophosphatemia, low folate, borderline low B12 all of which were replaced during her hospital stay. She also received thiamine supplementation during the stay. Patient was also found to have elevated liver enzymes, therefore underwent abdominal ultrasound. The ultrasound showed a prominent appearing liver measuring nearly 17 cm in greatest transverse dimension; the liver is heterogeneous with relatively poor penetration which is suspicious for hepatic steatosis versus acute hepatitis. Hepatitis C antibody was found to be nonreactive. On the day of discharge from the inpatient hospital floor to the inpatient rehab unit, the patient was reportedly beginning to feel slightly better. She had completed a course of antibiotics for Klebsiella UTI. She was afebrile and hemodynamically stable. She was seen in consult by Dr. Giron who agreed with admission to the inpatient rehab floor. Upon my evaluation the patient on the inpatient rehab floor, she is laying comfortably in bed in no acute distress. She states her numbness, paresthesias and burning pain are all relatively similar to how they have been. Patient again reiterates that prior to July she was completely normal and completing all of her ADLs independently. She has since required crutches for ambulation and has had significant difficulty with many of her ADLs. States her goals for rehab include ideally going back to being independent, but at minimum would liketo be independent with ambulation again so she can interact more with her children and take them to places. The patient lives in a two-story home home with 2 steps to get into the door. Patient states she has been having to crawl up the stairs because she does not have the strength to walk up them. Patient previously worked at a [employer], but had to quit her job earlier this year due to her symptoms. Currently she denies any chest pain, shortness of breath, acute visual changes, abdominal pain, nausea, vomiting, fevers, loss of bowel or bladder control. PMFSH <Chip Lemus DO, RES - Last Filed: 03/28/23 11:04> Medical History Hyperammonemia No pertinent past medical history Transaminitis Surgical History History of section Family History Mother Cancer Breast Social History Smoking Status: Current every day smoker Tobacco Type: e-cigarettes Substance Use Type: None Substance Abuse Comment: daily drinker previously, none in the past week. Review of Systems <Chip Lemus DO, RES - Last Filed: 03/28/23 11:04> Constitutional Constitutional: Reports system reviewed and no additional complaints, except as documented Eyes Eyes: Reports system reviewed and no additional complaints, except as documented ENT Ears, Nose, Mouth, and Throat: Reports system reviewed and no additional complaints, except as documented Cardiovascular Cardiovascular: Reports system reviewed and no additional complaints, except as documented Respiratory Respiratory: Reports system reviewed and no additional complaints, except as documented Gastrointestinal Gastrointestinal: Reports system reviewed and no additional complaints, except as documented Genitourinary Genitourinary: Reports system reviewed and no additional complaints, except as documented Musculoskeletal Musculoskeletal: Reports system reviewed and no additional complaints, except asdocumented Integumentary/Breasts Skin/Breast: Reports system reviewed and no additional complaints, except as documented Neurologic Neurologic: Reports system reviewed and no additional complaints, except as documented Meds <Chip Lemus DO, RES - Last Filed: 03/28/23 11:04> Medications and Allergies Allergies Penicillins Allergy (Verified 03/21/23 19:05) Rash Home and Active Meds: Home Medications lactulose 10 gram/15 mL oral solution 10 g PO QAM 03/21/23 [History Confirmed 03/27/23] magnesium oxide 200 mg PO QAM 03/21/23 [History Confirmed 03/27/23] potassium chloride 20 mEq tablet,extended release 20 meq PO BID 03/21/23 [History Confirmed 03/27/23] folic acid 1 mg tablet 1 mg PO QAM 03/27/23 [History Confirmed 03/27/23] thiamine HCl (vitamin B1) 100 mg tablet 100 mg PO QAM 03/27/23 [History Confirmed 03/27/23] Active Medications Acetaminophen (Acetaminophen 500 Mg Tablet) 500 mg PO Q4H PRN PRN Reason: Pain Stop: 03/26/24 14:45 Last Admin: 03/27/23 21:12 Dose: 500 mg Al Hydrox/Mg Hydrox/Simethicone (Mag Hydrox/Al Hydrox/Simeth 30 Ml Udc) 30 ml PO Q4H PRN PRN Reason: Indigestion Stop: 03/26/24 14:45 Bisacodyl (Bisacodyl 10 Mg Supp.Rect) 10 mg KS DAILY PRN PRN Reason: Constipation Stop: 03/26/24 14:45 Docusate Sodium (Docusate 100 Mg Capsule) 100 mg PO BID PRN PRN Reason: Constipation Stop: 03/26/24 14:45 Docusate Sodium (Docusate Enema 283 Mg/5 Ml Enema) 283 mg KS DAILY PRN PRN Reason: Constipation Stop: 03/26/24 14:45 Enoxaparin Sodium (Enoxaparin 40 Mg/0.4 Ml Syringe) 40 mg SUBCUT DAILY@1000 [facility] Stop: 03/27/24 09:59 Folic Acid (Folic Acid 1 Mg Tablet) 1 mg PO QAM [facility] Stop: 03/27/24 08:59 Gabapentin (Gabapentin 100 Mg Capsule) 100 mg PO TID [facility] Stop: 03/26/24 21:59 Last Admin: 03/27/23 21:06 Dose: 100 mg Lactulose (Lactulose 20 Gm/30 Ml Udc) 30 gm PO DAILY PRN PRN Reason: Constipation Stop: 03/26/24 14:45 Lactulose (Lactulose 20 Gm/30 Ml Udc) [facility] Stop: 03/27/24 08:59 Magnesium Oxide (Magnesium Oxide 400 Mg Tablet) 200 mg PO QAM [facility] Stop: 03/27/24 08:59 Potassium Chloride (Potassium Chloride Er 20 Meq Tab.Er.Prt) 20 meq PO BID [facility] Stop: 03/26/24 20:59 Last Admin: 03/27/23 21:06 Dose: 20 meq Sennosides (Sennosides 8.6 Mg Tablet) 2 tab PO DAILY@12 PRN PRN Reason: If no BM in 2 days Stop: 03/27/24 11:59 Sodium Chloride (Sodium Chloride 0.9 % 10 Ml Syringe) 0 ml IV-PUSH PRN PRN PRN Reason: Flush Stop: 03/26/24 14:45 Thiamine HCl (Thiamine 100 Mg Tablet) 100 mg PO QAM [facility] Stop: 03/27/24 08:59 Tramadol HCl (Tramadol 50 Mg Tablet) 50 mg PO Q6H PRN PRN Reason: Severe Pain Stop: 09/23/23 14:48 Last Admin: 03/28/23 07:00 Dose: 50 mg Exam <Chip Lemus DO, RES - Last Filed: 03/28/23 11:04> Physical Exam Vital Signs: Temp Pulse Resp BP Pulse Ox O2 Del Method 98.3 F 82 18 119/75 99 Room Air 03/28/23 06:37 03/28/23 06:37 03/28/23 06:37 03/28/23 06:37 03/28/23 06:37 03/28/23 06:37 Narrative: General: Awake, A&O x 3, pleasant, cooperative, well nourished HENT: NC, AT Eyes: No scleral icterus Neck: Supple Cardio: RRR, no murmurs, rubs or gallops Respiratory: CTAB, no wheezes rhonchi or rales. No evidence of respiratory distress GI: Soft, nontender, nondistended Neuro: Patient strains to lift her bilateral lower extremities off the bed, and her strength is approximately 4/5 in the bilateral lower extremities. She does have significant burning pain with very light sensation to her feet bilaterally. Sensation is decreased in the bilateral lower extremities and begins to improveas you move proximally up the lower extremities. 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 Psych: Affect, speech and movements normal. Mood congruent Results <Chip Lemus DO, RES - Last Filed: 03/28/23 11:04> Labs Labs: Laboratory Results - last 24 hr 03/28/23 03/28/23 05:15 05:15 Corrected WBC 6.7 Uncorrected WBC Count 6.7 RBC 3.35 L Hgb 12.2 Hct 36.2 MCV 107.9 H MCH 36.4 H MCHC 33.7 RDW 14.1 Plt Count 273 MPV 7.2 Neut % (Auto) 55.2 Lymph % (Auto) 30.9 Boundary % (Auto) 7.5 Eos % (Auto) 5.0 Baso % (Auto) 1.4 Nucleat RBC Rel Count 0.2 Neut # (Auto) 3.7 Lymph # (Auto) 2.1 Boundary # (Auto) 0.5 Eos # (Auto) 0.3 Baso # (Auto) 0.1 PHA Creatinine Clear 169.70 Sodium 137 Potassium 4.1 Chloride 106 Carbon Dioxide 23.5 Anion Gap 11.6 BUN 7 Creatinine 0.43 L Est GFR (CKD-EPI) > 60.0 Glucose 98 Calcium 9.2 Total Bilirubin 0.3 AST 55 H ALT 31 Alkaline Phosphatase 95 Total Protein 6.4 Albumin 3.3 L Globulin 3.1 Albumin/Globulin Ratio 1.1 Prealbumin 19.3 <Jamil Salazar MD - Last Filed: 03/28/23 13:36> Individualized Plan of Care Plan of Care: Individualized Overall Plan of Care: Admit Date/Time: 03/27/23 Expected LOS: 10 Days Expected Discharge Destination: Home Rehabilitation IGC: 3.3 Polyneuropathy Primary Diagnosis: as above Patient?s/Family?s anticipated outcomes/personal goals: To have patient become more independent and to return home. Medical/ Functional Prognosis: Good Anticipated Functional Outcomes/Goals and Interventions: -Therapy Functional Outcome/Goal: Mobility/Locomotion: Patient likely to be independent with ambulation with assistive device. Anticipated interventions: Physician management, PT, OT, Dietitian, Rehab Nursing - Therapy Functional Outcome/Goal: Self Care: Patient likely to be functionally independent for activities of daily living using assistive / adaptive equipment as needed. Anticipated interventions: Physician management, PT, OT, Dietitian, Rehab Nursing - Therapy Functional Outcome/Goal: Bladder/Bowel Management: Patient likely to be independent with bladder care and independent with bowel care. Anticipated interventions: Physician management, PT, OT, Dietitian, Rehab Nursing -Therapy Functional Outcome/Goal: Communication/Cognition: Patient will be able to communicate fully and be safe cognitively. Anticipated interventions: Physician management, PT, OT, Dietitian, Rehab Nursing -Therapy Functional Outcome/Goal: Patient will be independent for bed mobility and transfers Anticipated interventions: Physician management, PT, OT, Dietitian, Rehab Nursing -Therapy Functional Outcome/Goal: Patient will improve endurance to be able to tolerate all daily self care activities and avocational activities. Anticipated interventions: Physician management, PT, OT, Nutrition, Rehab Nursing -Therapy Functional Outcome/Goal: Patient will understand and assimilate / integrate education regarding management of their medical conditions to maintainhealth and wellbeing. Anticipated interventions: Physician management, PT, OT, Dietitian, Rehab Nursing Required Therapy PT: 1.5 hour per day at least 5 days per week with additional therapy on as needed basis. Comments: PT to improve pt's strength, endurance, bed mobility, transfers (sit-stand), standing balance, gait quality on level surfaces and stairs, coordination and functional ADL skills. Will also work to improve pt's safety awareness during transfers and ambulation. OT: 1.5 hour per day at least 5 days per week with additional therapy on as needed basis. Comments: OT for basic ADL re-training (bathing, dressing, toileting, continence, grooming, feeding, transferring), to increase activity tolerance andfunctional mobility and to evaluate for adaptive and assistive devices. Will work to improve pt's endurance and educate pt on fall prevention and energy conservation techniques-pacing strategies and proper breathing techniques duringfunctional tasks. Other: Nutrition, Rehab nursing, Wound, P&O RATIONALE FOR IRF ADMISSION: Patient has both medical and functional complexities that require 24 hour daily monitoring and intervention from School Bus Mechanic as well as other consulting physicians including internal medicine as well as 24 hour daily section weaver nursing - for medical safe / optimal management. Patient requires interdisciplinary therapy team rehabilitation care including OT, PT, SW, Rehab Nursing, requires and can tolerate at least 3 hoursof daily OT and PT therapy at least 5 days weekly. The following medical conditions significantly impact the rehabilitation process and are being addressed daily and can not be managed at home or in a lesser intense medical setting: Refer to above problem oriented plan of care Assessment/Plan <Chip Lemus DO, RES - Last Filed: 03/28/23 11:04> (1) Sensorimotor neuropathy: Plan: Lumbar puncture in the ER was negative for Guillain-Del Rio? syndrome and CSF PCR panel was negative Lumbar and brain MRI during her hospital stay were largely unremarkable Suspect her history of alcohol abuse and nutritional deficiencies may be playinga role in her symptomatology We will work with nursing staff to obtain records from the EMG the patient was having just prior to admission Continue to work with therapy while in the inpatient rehab floor as scheduled Can consider heavy metal testing Code(s): G62.9 - Polyneuropathy, unspecified Status: Acute (2) Weakness: Code(s): R53.1 - Weakness Status: Acute (3) Bilateral leg paresthesia: Code(s): R20.2 - Paresthesia of skin Status: Acute (4) Impaired mobility and ADLs: Plan: Prior to symptom onset, the patient was completely independent with all of her ADLs Continue to work with therapy in hopes to improve her independence with ADLs, mobility and functionality Code(s): Z74.09 - Other reduced mobility; Z78.9 - Other specified health status Status: Acute (5) Transaminitis: Plan: Patient liver enzymes were found to be elevated during the hospital stay Ultrasound showed a prominent appearing liver measuring nearly 17 cm in greatesttransverse dimension; the liver is heterogeneous with relatively poor penetration which is suspicious for hepatic steatosis versus acute hepatitis Hepatitis C antibody was found to be nonreactive Continue to monitor Code(s): R74.01 - Elevation of levels of liver transaminase levels Status: Acute (6) Weakness of distal arms and legs: Code(s): R29.898 - Other symptoms and signs involving the musculoskeletal system Status: Acute (7) UTI (urinary tract infection): Plan: Patient was treated with antibiotics during her hospital stay for Klebsiella positive UTI She is not having any urinary symptoms at this time, but should be monitored forrecurrent symptoms Code(s): N39.0 - Urinary tract infection, site not specified Status: Acute (8) Hypomagnesemia: Plan: This was replaced during her inpatient hospital stay Code(s): E83.42 - Hypomagnesemia Status: Acute (9) Hypophosphatemia: Plan: This was corrected during inpatient hospital stay Code(s): E83.39 - Other disorders of phosphorus metabolism Status: Acute (10) Hx of drug abuse: Plan: Patient has been clean of IV drugs for approximately 4 years She was previously on Vivitrol for 2 years and has been without Vivitrol for thepast 2 years and has remained without drugs Code(s): F19.11 - Other psychoactive substance abuse, in remission Status: Acute (11) History of ETOH abuse: Plan: Patient states she started drinking nearly daily for the past year States she would drink multiple shots of liquor and approximately 6 beers/white claws daily (she did note that she would not drink the same thing every day) Patient has abstained from alcohol for approximately the last month She is well outside of the window for acute alcohol withdrawal symptoms, but should still be monitored Code(s): F10.11 - Alcohol abuse, in remission Status: Acute (12) Folate deficiency: Plan: Patient folate was found below 2.3 Continue supplementation of this and thiamine supplementation Code(s): E53.8 - Deficiency of other specified B group vitamins Status: Acute <Jamil Salazar MD - Last Filed: 03/28/23 13:36> (1) Sensorimotor neuropathy: Plan: Lumbar puncture in the ER was negative for Guillain-Del Rio? syndrome and CSF PCR panel was negative Lumbar and brain MRI during her hospital stay were largely unremarkable Suspect her history of alcohol abuse and nutritional deficiencies may be playinga role in her symptomatology We will work with nursing staff to obtain records from the EMG the patient was having just prior to admission Continue to work with therapy while in the inpatient rehab floor as scheduled Can consider heavy metal testing (2) Weakness: (3) Bilateral leg paresthesia: (4) Impaired mobility and ADLs: Plan: Prior to symptom onset, the patient was completely independent with all of her ADLs Continue to work with therapy in hopes to improve her independence with ADLs, mobility and functionality (5) Transaminitis: Plan: Patient liver enzymes were found to be elevated during the hospital stay Ultrasound showed a prominent appearing liver measuring nearly 17 cm in greatesttransverse dimension; the liver is heterogeneous with relatively poor penetration which is suspicious for hepatic steatosis versus acute hepatitis Hepatitis C antibody was found to be nonreactive Continue to monitor (6) Weakness of distal arms and legs: (7) UTI (urinary tract infection): Plan: Patient was treated with antibiotics during her hospital stay for Klebsiella positive UTI She is not having any urinary symptoms at this time, but should be monitored forrecurrent symptoms (8) Hypomagnesemia: Plan: This was replaced during her inpatient hospital stay (9) Hypophosphatemia: Plan: This was corrected during inpatient hospital stay (10) Hx of drug abuse: Plan: Patient has been clean of IV drugs for approximately 4 years She was previously on Vivitrol for 2 years and has been without Vivitrol for thepast 2 years and has remained without drugs (11) History of ETOH abuse: Plan: Patient states she started drinking nearly daily for the past year States she would drink multiple shots of liquor and approximately 6 beers/white claws daily (she did note that she would not drink the same thing every day) Patient has abstained from alcohol for approximately the last month She is well outside of the window for acute alcohol withdrawal symptoms, but should still be monitored (12) Folate deficiency: Plan: Patient folate was found below 2.3 Continue supplementation of this and thiamine supplementation Plan This is a 27-year-old female with past medical history of alcohol and heroin abuse who presents to the rehab unit with multifactorial functional decline secondary to severe bilateral peripheral neuropathy, likely due to nutritional deficiencies and alcohol abuse. This patient will require 3 hours/day of PT/OT to progress to goal of modified independent for all ADLs, ambulation, transfers. PT to improve patient's strength, endurance, bed mobility, transfers (sit- stand), standing balance, gait quality on level surfaces and stairs, coordination and functional ADL skills. We will also work to improve patient's safety awareness during transfers and ambulation. OT for basic ADL retraining (bathing, dressing, toileting, continence, grooming,feeding, transferring), to increase activity tolerance and functional mobility to evaluate for adaptive assistive device. We will work to improve patient's endurance and educate patient on fall prevention and energy conservation techniques-pacing strategies and proper breathing techniques during functional tasks. Patient education Pressure ulcer prophylaxis; encourage mobilization, frequent postural changes, pressure-relief techniques DVT prophylaxis Encourage deep breathing exercise incentive spirometry. Monitor bladder. Toileting schedule. Continue current bladder management, with scans as needed and CIC if needed. Start bowel care program every day to obtain continence, prevent ileus. Maintain fall precautions Gait and balance retraining Provision of the necessary gait aids and functional adaptive equipment to enhance the patient's a functional confucianist Encourage deep breathing exercises and incentive spirometry RD evaluation Ensure adequate nutrition and hydration Discharge planning. Updates/Medical Issues -Continue management as outlined above -Increase gabapentin to 300 mg 3 times daily for improved pain control -Continue Thiamine and Folate for nutritional deficiency Hospitalist to assist with management of comorbid medical conditions #. Pain control: Tylenol PRN, Gabapentin 300 mg TID, Tramadol 50 mg q6hr PRN #. Bowel and bladder: Continent of bowle/bladder #. Skin: (pressure ulcer/surgical site) no pressure injuries on admission #. Sleep: Optimize sleep-wake cycle DVT prophylaxis: Lovenox 40 mg daily Functional status: Impaired. Limited by pain and weakness Discharge planning: ELOS 1-2 weeks Plan: Patient was personally seen by me on the day of encounter, reviewed the history and performed wren elements of exam and formulated the plan of care and confirmedthe resident physician note, as above I completed a substantive portion of this encounter, the medical decision makingportion of this note in its entirety, including Allied health note review, nursing note review, information resource consultant note review, discussion with nursing and case management, and more than 50% of my time was spent on counseling and coordination of care, time spent 70 minutes Patient was personally seen by me, Dr. Salazar, on the day of encounter, within 24 hours of rehab admission, reviewed the history and the relevant portions of the chart, including current orders, allied health and information resource consultant notes, labs/imaging and performed wren elements of exam and I formulated the planof care and facilitated the medical decision making. Agree with above. Patient presents after hospitalization for severe peripheral neuropathy work-up. Neurology notes reviewed, possibly due to nutritional deficiency versus alcohol abuse. EMG results reviewed from Dr. 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 Continue current treatment. Documented By: Chip Lemus DO,RES 03/28/23 091 2 Signed By: <Electronically signed by DO SYLVESTER Lemus> 03/28/23 1104 <Electronically signed by Jamil Salazar MD> 03/28/23 [id number] [facility] Work Phone: 1(634) 263-998209-06-2023 Progress note Author Marc Giron [facility] March 27, 2023 10:24am Note Date/Time March 27, 2023 10:25am [facility] [address] [place] [address] Physiatry(Rehab) Progress Note Signed Patient: Rica Stout MR#: [id number] : 1995 Acct:[id number] Age/Sex: 27 / F Adm Date: 3 Loc: 4N Room: [address] [place] [address] Type: ADM IN Attending Dr: Brianne Umanzor MD Copies to: ~ Date of Service: 03/27/2023 Subjective Subjective Narrative: Ms. Stout is a 27 year old female complex past medical history including IV drug and alcohol abuse admitted to the hospital for progressive functional decline over the past few months, directly admitted from neurology office after abnormal EMG. MRI lumbar spine with and without contrast unremarkable, lumbar puncture unremarkable, neurology has ordered extensive testing and she is being treated for urinary tract infection.. Seen and evaluated by therapy. Her functional status fluctuates. She does not feel comfortable being discharged home given ataxia and gait impairment. She states she is unable to do stairs safely. She has 2 young children who she cares for regularly her mother and grandmother while she is in the hospital. Interval history: Received insurance approval for inpatient rehab setting. Can transfer today if cleared by primary team. She has continued neuropathic pain in her feet, she reports that kept her up all night. Review of Systems Review of Systems All other systems reviewed & are negative unless noted below or in HPI Exam Physical Exam Vital Signs: Temp Pulse Resp BP Pulse Ox O2 Del Method 97.8 F 80 13 122/74 98 Room Air 03/27/23 07:35 03/27/23 07:35 03/27/23 07:35 03/27/23 07:35 03/27/23 07:35 03/27/23 08:00 Narrative: No acute distress Nonlabored breathing Abdomen soft and nontender Strength 4 out of 5 throughout Abnormal sensation worse distally, impaired to upper thighs but worse at toes/ankles Just numb to fingertips in upper extremities Ataxic gait No hyperreflexia Objective Labs 03/23/23 05:32 03/24/23 05:48 Labs: Laboratory Results - last 24 hr 03/21/23 03/22/23 23:50 14:51 Serum Total Protein 5.9 L Albumin (Send Out) 3.1 Globulin (PEP) 2.8 Albumin/Globulin (PEP) 1.1 Jonxi-0-Udfkoopxa 0.2 Bmenr-1-Hdykahhbm 0.7 Beta Globulins 0.9 Gamma Globulins 1.1 M-Tomas Not observed PEP Note Alpha-Tocopherol Vit E 10.9 Gamma-Tocopherol Vit E 1.9 CSF/Ser Oligoclonal Inter IgG 1046 IgA 485 H IgM 343 H Serum Immunofixation PAT Profile Negative Medications and Allergies Allergies and Active Meds: Allergies Penicillins Allergy (Verified 03/21/23 19:05) Rash Active Medications Generic Name Dose Route Start Last Admin Trade Name Freq PRN Reason Stop Dose Admin Acetaminophen 650 mg 03/22/23 01:54 03/27/23 08:48 Acetaminophen 325 Mg Tablet PO 03/21/24 01:53 650 mg Q6HR PRN Administration Pain Scale 1 - 3 or fever Enoxaparin Sodium 40 mg 03/22/23 10:00 03/27/23 09:00 Enoxaparin 40 Mg/0.4 Ml Syringe SUBCUT 03/21/24 09:59 40 mg DAILY@10 ROXANNE Administration Folic Acid 1 mg 03/22/23 21:00 03/27/23 08:50 Folic Acid 50 Mg/10 Ml Vial IV-PUSH 03/21/24 20:59 1 mg BID ROXANNE Administration Magnesium Sulfate 2 gm in 50 mls @ 25 mls/hr 03/22/23 01:54 Magnesium Sulf 2gm-*Swfi* IV 03/21/24 01:53 DAILY PRN Magnesium Level < 1.5 Ceftriaxone Sodium 1 gm in 50 mls @ 100 mls/hr 03/23/23 22:00 03/26/23 22:05 Rocephin IV Infused Q24H ROXANNE Infusion Lactulose 10 gm 03/22/23 09:00 03/27/23 08:49 Lactulose 20 Gm/30 Ml Udc PO 03/21/24 08:59 10 gm DAILY ROXANNE Administration Magnesium Oxide 200 mg 03/22/23 09:00 03/27/23 08:48 Magnesium Oxide 400 Mg Tablet PO 03/21/24 08:59 200 mg DAILY ROXANNE Administration Potassium Chloride 20 meq 03/22/23 01:54 Potassium Chloride Er 20 Meq Tab.Er.Prt PO 03/21/24 01:53 DAILY PRN Hypokalemia Potassium Chloride 20 meq 03/22/23 09:00 03/27/23 08:50 Potassium Chloride Er 20 Meq Tab.Er.Prt PO 03/21/24 08:59 20 meq BID ROXANNE Administration Sodium Chloride 0 ml 03/21/23 19:04 Sodium Chloride 0.9 % 10 Ml Syringe IV-PUSH 03/20/24 19:03 PRN PRN Flush Sodium Chloride 0 ml 03/22/23 06:00 03/27/23 06:53 Sodium Chloride 0.9 % 10 Ml Syringe IV-PUSH 03/21/24 05:59 10 ml QSHIFT ROXANNE Administration Thiamine HCl 100 mg 03/22/23 12:00 03/27/23 08:50 Thiamine 200 Mg/2 Ml Vial IV-PUSH 03/21/24 11:59 100 mg DAILY ROXANNE Administration Tramadol HCl 50 mg 03/22/23 01:54 03/27/23 09:50 Tramadol 50 Mg Tablet PO 09/18/23 01:53 50 mg Q6H PRN Administration Pain Scale 4 - 7 Assessment/Plan Assessment/Plan (1) Sensorimotor neuropathy: Plan: PT to improve pt's strength, endurance, bed mobility, transfers (sit-stand), standing balance, gait quality on level surfaces and stairs, coordination and functional ADL skills. Will also work to improve pt's safety awareness during transfers and ambulation. OT for basic ADL re-training (bathing, dressing, toileting, continence, grooming, feeding, transferring), to increase activity tolerance and functional mobility and to evaluate for adaptive and assistive devices. Will work to improve pt's endurance and educate pt on fall prevention and energy conservationtechniques-pacing strategies and proper breathing techniques during functional tasks. Code(s): G62.9 - Polyneuropathy, unspecified Status: Acute (2) Transaminitis: Code(s): R74.01 - Elevation of levels of liver transaminase levels Status: Acute (3) Weakness of distal arms and legs: Code(s): R29.898 - Other symptoms and signs involving the musculoskeletal system Status: Acute (4) Weakness: Code(s): R53.1 - Weakness Status: Acute Plan 27-year-old female with presents with functional decline and history of sensorimotor polyneuropathy of uncertain etiology at this point. Active workup ongoing with Neurology. She was admitted directly from Neurology office after abnormal EDX findings. -Received insurance approval today for transfer to IRF. Can be admitted when cleared by primary team -We can adjust her pain meds upon transfer. Plan: I completed a substantive portion of this encounter, the medical decision makingportion of this note in its entirety, including Allied health note review, nursing note review, information resource consultant note review, discussion with nursing and case management, and more than 50% of my time was spent on counseling and coordination of care, time spent 25 minutes Patient was personally seen by me, Dr. Giron, on the day of encounter, reviewed the history and the relevant portions of the chart, including current orders, allied health and information resource consultant notes, labs/imaging and performed wren elements of exam and I formulated the plan of care and facilitated the medical decision making. Documented By: Marc Giron MD 03/27/23 1022 Signed By: <Electronically signed by Marc Giron MD> 03/27/23 1024 [facility] Work Phone: 1(421) 209-531309-05-2023 Progress note Author Brianne Umanzor [facility] March 26, 2023 2:36pm Note Date/Time March 26, 2023 2:36pm [facility] [address] [place] [address] Hospitalist Progress Note Signed Patient: Rica Stout MR#: [id number] : 1995 Acct:[id number] Age/Sex: 27 / F Adm Date: 3 Loc: 4N Room: [address] [place] [address] Type: ADM IN Attending Dr: Brianne Umanzor MD Copies to: ~ Date of Service: 03/26/2023 Subjective Subjective Narrative: Patient was seen and evaluated at bedside this morning. She remained afebrile with no leukocytosis. Denies any nausea, vomiting, diarrhea. She continues to feel better again today. Slight improvement in numbness but still with burning sensation in her legs. Able to walk slowly to the bathroom and in the hallway with assistance. Participating with PT/OT. Exam Physical Exam Vital Signs: Temp Pulse Resp BP Pulse Ox O2 Del Method 98.1 F 92 H 16 119/88 98 Room Air 03/26/23 11:18 03/26/23 11:18 03/26/23 11:18 03/26/23 11:18 03/26/23 11:18 03/26/23 11:18 Narrative: Const General: cooperative HEENT Normal oropharyngeal mucosa without any ulcers or exudates Eyes: Conjunctiva normal Pulmonary Auscultation: clear to auscultation , no crackles, no wheezes Cardiovascular Rate: normal rate Rhythm: regular rhythm Heart Sounds: S1 normal, S2 normal and no murmurs GI Inspection: non-distended Palpation: soft, not firm and nontender. No rigidity or rebound. Deferred Neuro General: alert, awake and oriented x3. decrease sensation in LE L>R below knees mostly on anterior gonzalez. Musculoskeletal: normal range of motion Extrem General: no cyanosis, no pedal edema Skin: no significant ulcers, no rash noted Psych Appearance: appropriate affect. Grossly normal Objective Lab Results 03/23/23 05:32 03/24/23 05:48 Microbiology Results Microbiology 03/21/23 23:03 Blood - Right Antecubital Blood Culture - Preliminary No Growth 4 Days 03/21/23 21:48 Blood - Left Antecubital Blood Culture - Preliminary No Growth 4 Days Meds Allergies and Active Meds Allergies Penicillins Allergy (Verified 03/21/23 19:05) Rash Active Meds: Active Medications Generic Name Dose Route Start Last Admin Trade Name Zoë PRN Reason Stop Dose Admin Acetaminophen 650 mg 03/22/23 01:54 03/26/23 13:00 Acetaminophen 325 Mg Tablet PO 03/21/24 01:53 650 mg Q6HR PRN Administration Pain Scale 1 - 3 or fever Enoxaparin Sodium 40 mg 03/22/23 10:00 03/26/23 10:56 Enoxaparin 40 Mg/0.4 Ml Syringe SUBCUT 03/21/24 09:59 40 mg DAILY@10 ROXANNE Administration Folic Acid 1 mg 03/22/23 21:00 03/26/23 08:54 Folic Acid 50 Mg/10 Ml Vial IV-PUSH 03/21/24 20:59 1 mg BID ROXANNE Administration Magnesium Sulfate 2 gm in 50 mls @ 25 mls/hr 03/22/23 01:54 Magnesium Sulf 2gm-*Swfi* IV 03/21/24 01:53 DAILY PRN Magnesium Level < 1.5 Ceftriaxone Sodium 1 gm in 50 mls @ 100 mls/hr 03/23/23 22:00 03/25/23 21:39 Rocephin IV 100 mls/hr Q24H ROXANNE Administration Lactulose 10 gm 03/22/23 09:00 03/26/23 08:53 Lactulose 20 Gm/30 Ml Udc PO 03/21/24 08:59 10 gm DAILY ROXANNE Administration Magnesium Oxide 200 mg 03/22/23 09:00 03/26/23 08:52 Magnesium Oxide 400 Mg Tablet PO 03/21/24 08:59 200 mg DAILY ROXANNE Administration Potassium Chloride 20 meq 03/22/23 01:54 Potassium Chloride Er 20 Meq Tab.Er.Prt PO 03/21/24 01:53 DAILY PRN Hypokalemia Potassium Chloride 20 meq 03/22/23 09:00 03/26/23 08:52 Potassium Chloride Er 20 Meq Tab.Er.Prt PO 03/21/24 08:59 20 meq BID ROXANNE Administration Sodium Chloride 0 ml 03/21/23 19:04 Sodium Chloride 0.9 % 10 Ml Syringe IV-PUSH 03/20/24 19:03 PRN PRN Flush Sodium Chloride 0 ml 03/22/23 06:00 03/26/23 06:25 Sodium Chloride 0.9 % 10 Ml Syringe IV-PUSH 03/21/24 05:59 10 ml QSHIFT ROXANNE Administration Thiamine HCl 100 mg 03/22/23 12:00 03/26/23 08:54 Thiamine 200 Mg/2 Ml Vial IV-PUSH 03/21/24 11:59 100 mg DAILY ROXANNE Administration Tramadol HCl 50 mg 03/22/23 01:54 03/26/23 09:00 Tramadol 50 Mg Tablet PO 09/18/23 01:53 50 mg Q6H PRN Administration Pain Scale 4 - 7 A&P - Hospitalist Assessment/Plan (1) Weakness of distal arms and legs: (2) Bilateral leg paresthesia: (3) Paresthesia of upper extremity: (4) Hypophosphatemia: (5) Hypomagnesemia: (6) UTI (urinary tract infection): (7) Transaminitis: Plan Severe polyneuropathy with sensory loss and paraesthesias of b/l LE Probably due to folate and possible thiamine deficiency with her hx of alcohol abuse Hepatic steatosis Hx of heroin use Transaminitis Hypophosphatemia Hypomagnesemia -Still with persistent neurological deficits. slight improvement with current therapy ?Continue thiamine and folate supplements. -Given b12 supplement x 1 . -MRI brain and lumbar done and reviewed. -Continue to optimize electrolytes. -Liver function stable so far. -lab workup in process. -PT/OT following, suggesting acute rehab which patient agreeable to it at this time. Being evaluated by PM&R. -Counseled on abstinence from alcohol and substance use. Acute nonhemorrhagic cystitis -Remained afebrile with no leukocytosis -Urine culture growing Klebsiella pneumonia -De-escalated antibiotics to Rocephin IV to complete 5 days course of treatment DVT PPx-SCDs, enoxaparin Diet order-regular CODE STATUS-full code Discussed with patient at bedside, all questions answered Patient is medically optimized and suitable for discharge. CM following for placement to acute rehab Documented By: Brianne Umanzor MD 03/26/23 14 33 Signed By: <Electronically signed by Brianne Umanzor MD> 03/26/23 [id number] [facility] Work Phone: 1(472) 266-438109-05-2023 Consult note Author Marc Giron [facility] March 26, 2023 12:50pm Note Date/Time March 26, 2023 9:50am [facility] [address] [place] [address] Physiatry (Rehab) Consult Note Signed Patient: Rica Stout MR#: [id number] : 1995 Acct:[id number] Age/Sex: 27 / F Adm Date: 3 Loc: 4 Room: [address] [place] [address] Type: ADM IN Attending Dr: Brianne Umanzor MD Copies to: MD Brianne Hernandez MD Pamela Sue Cramer, DIRECTOR SUPPLIER QUALITY~ Etiologic Dx/Impairment Group Narrative Narrative: Sensorimotor polyneuropathy HPI Consult Date: 03/26/23 Requesting Physician: Brianne Umanzor MD Primary Care Provider: Danuta Araujo, ATHLETIC EQUIPMENT MANAGER-C Consult Narrative Reason for consult: Functional decline HPI: Ms. Stout is a 27 year old female complex past medical history including IV drug and alcohol abuse admitted to the hospital for progressive functional decline over the past few months, directly admitted from neurology office after abnormal EMG. MRI lumbar spine with and without contrast unremarkable, lumbar puncture unremarkable, neurology has ordered extensive testing and she is being treated for urinary tract infection.. Seen and evaluated by therapy. Her functional status fluctuates. She does not feel comfortable being discharged home given ataxia and gait impairment. She states she is unable to do stairs safely. She has 2 young children who she cares for regularly her mother and grandmother while she is in the hospital. Review of Systems Review of Systems All other systems reviewed & are negative unless noted below or in HPI [facility] Medical History Hyperammonemia No pertinent past medical history Transaminitis Surgical History History of section Family History Mother Cancer Breast Social History Smoking Status: Current every day smoker Tobacco Type: e-cigarettes Substance Use Type: None Substance Abuse Comment: daily drinker previously, none in the past week. Meds Medications and Allergies Allergies Penicillins Allergy (Verified 03/21/23 19:05) Rash Home Medications lactulose 10 gram/15 mL oral solution 10 g PO DAILY 03/21/23 [History Confirmed 03/21/23] magnesium oxide 200 mg PO DAILY 03/21/23 [History Confirmed 03/21/23] potassium chloride 20 mEq tablet,extended release 20 meq PO BID 03/21/23 [History Confirmed 03/21/23] Exam Physical Exam Vital Signs: Temp Pulse Resp BP Pulse Ox O2 Del Method 97.8 F 87 16 108/72 96 Room Air 03/26/23 07:25 03/26/23 07:25 03/26/23 07:25 03/26/23 07:25 03/26/23 07:25 03/26/23 08:50 Narrative: No acute distress Nonlabored breathing Abdomen soft and nontender Strength 4 out of 5 throughout Abnormal sensation worse distally, impaired to upper thighs but worse at toes/ankles Just numb to fingertips in upper extremities Ataxic gait No hyperreflexia Results Additional Results Results Comment: I reviewed clinical lab tests, radiology reports and obtained and summated medical records and have ordered follow up lab tests and imaging studies as needed for rehabilitation care. Functional Status Prior Level of Function Narrative: Independent Current Level of Function Narrative: Need assist. Assessment/Plan (1) Sensorimotor neuropathy: Plan: PT to improve pt's strength, endurance, bed mobility, transfers (sit-stand), standing balance, gait quality on level surfaces and stairs, coordination and functional ADL skills. Will also work to improve pt's safety awareness during transfers and ambulation. OT for basic ADL re-training (bathing, dressing, toileting, continence, grooming, feeding, transferring), to increase activity tolerance and functional mobility and to evaluate for adaptive and assistive devices. Will work to improve pt's endurance and educate pt on fall prevention and energy conservationtechniques-pacing strategies and proper breathing techniques during functional tasks. Code(s): G62.9 - Polyneuropathy, unspecified Status: Acute (2) Transaminitis: Code(s): R74.01 - Elevation of levels of liver transaminase levels Status: Acute (3) Weakness of distal arms and legs: Code(s): R29.898 - Other symptoms and signs involving the musculoskeletal system Status: Acute (4) Weakness: Code(s): R53.1 - Weakness Status: Acute Plan 27-year-old female with presents with functional decline and history of sensorimotor polyneuropathy of uncertain etiology at this point. Active workup ongoing with Neurology. She was admitted directly from Neurology office after abnormal EDX findings. -Stable for discharge from acute care. Appropriate for IRF. -Physical and Occupational Therapy notes reviewed, despite functional status is documented, she is not at her premorbid baseline and is at high risk for falls, she needs a lot of education regarding her diagnosis and precautions to take at home, especially as the caregiver of her 2 young children. -Laboratory testing to date reviewed, ? alcohol related / nutritional deficiency/ less common etiology. Consideration could be given to HIV related distal symmetric peripheral polyneuropathy, with h/o IV drug use, I do not see testing ordered. Primary Rehabilitation Diagnosis: Sensorimotor peripheral polyneuropathy Patient is appropriate for acute inpatient rehab facility once medically stable per primary service and consultants. The patient has functional deficits requiring both active and ongoing therapeutic intervention of at least 2 disciplines of therapy, physical therapy/Occupational Therapy. Patient has worked appropriately with multiple disciplines of therapy on acute care, and demonstrates ability to tolerate and participate and make reasonable gains with at least a 15 hour/week inpatient rehabilitation program. Due to medical complexity as noted above, rehabilitation physician supervision is both reasonable and necessary, including [id number] visits at least 3 days/week with the need to treat, manage and modify course of treatment, including participating in at least once weekly interdisciplinary team conferences. The patient requires multidisciplinary rehabilitation treatment including rehabilitation physician at least 3 times per week, 24-hour rehabilitation nursing, physical occupational therapy, plus/minus speech-language pathology, rehabilitation case management, Dietitian services. This case cannot be best/most appropriately managed at a lower level of care. Estimated length of rehabilitation stay: 10 days Prior Level of Function: None. Cares for her 2 young children Expected functional status at discharge from rehab: Self-care (ADLs) : Independent Bed Mobility/Transfers: Independent Ambulation: Independent There is a reasonable plan in place for discharge to the community. Overall prognosis is fair to good to make functional gains that would make substantial difference in the eventual discharge setting. Plan: I completed a substantive portion of this encounter, the medical decision makingportion of this note in its entirety, including Allied health note review, nursing note review, information resource consultant note review, discussion with nursing and case management, and more than 50% of my time was spent on counseling and coordination of care, time spent 65 minutes Patient was personally seen by me, Dr. Giron, on the day of encounter, reviewed the history and the relevant portions of the chart, including current orders, allied health and information resource consultant notes, labs/imaging and performed wren elements of exam and I formulated the plan of care and facilitated the medical decision making. Documented By: Marc Giron MD 03/26/23 0950 Signed By: <Electronically signed by Marc Giron MD> 03/26/23 8973 [facility] Work Phone: 1(436) 599-445609-04-2023 Progress note Author Brianne Umanzor [facility] March 25, 2023 1:31pm Note Date/Time March 25, 2023 1:31pm [facility] [address] [place] [address] Hospitalist Progress Note Signed Patient: Rica Stout MR#: [id number] : 1995 Acct:[id number] Age/Sex: 27 / F Adm Date: 3 Loc: Room: [address] [place] [address] Type: ADM IN Attending Dr: Brianne Umanzor MD Copies to: ~ Date of Service: 03/25/2023 Subjective Subjective Narrative: Patient was seen and evaluated at bedside this morning. She remained afebrile with no leukocytosis. Denies any nausea, vomiting, diarrhea. She continues to feel slightly better again today. Slight improvement in numbness and the burning sensation in her legs. Able to walk slowly to the bathroom and in the hallway with assistance. Participating with PT/OT. Exam Physical Exam Vital Signs: Temp Pulse Resp BP Pulse Ox O2 Del Method 98.2 F 103 H 12 126/89 95 Room Air 03/25/23 11:03/25/23 11:03/25/23 11:03/25/23 11:03/25/23 11:03/25/23 11:01 Narrative: Const General: cooperative HEENT Normal oropharyngeal mucosa without any ulcers or exudates Eyes: Conjunctiva normal Pulmonary Auscultation: clear to auscultation , no crackles, no wheezes Cardiovascular Rate: normal rate Rhythm: regular rhythm Heart Sounds: S1 normal, S2 normal and no murmurs GI Inspection: non-distended Palpation: soft, not firm and nontender. No rigidity or rebound. Deferred Neuro General: alert, awake and oriented x3. decrease sensation in LE L>R below knees.strength about 4/5 in LE. Musculoskeletal: normal range of motion Extrem General: no cyanosis, no pedal edema Skin: no significant ulcers, no rash noted Psych Appearance: appropriate affect. Grossly normal Objective Lab Results 03/23/23 05:32 03/24/23 05:48 Microbiology Results Microbiology 03/21/23 23:50 Cerebral Spinal Fluid Aerobic Culture - Final No Growth 2 Days 03/21/23 23:50 Cerebral Spinal Fluid Anaerobic Culture - Final No Anaerobes Isolated 3 Days 03/21/23 23:50 Cerebral Spinal Fluid Gram Stain - Final 03/21/23 23:03 Blood - Right Antecubital Blood Culture - Preliminary No Growth 3 Days 03/21/23 21:48 Blood - Left Antecubital Blood Culture - Preliminary No Growth 3 Days Meds Allergies and Active Meds Allergies Penicillins Allergy (Verified 03/21/23 19:05) Rash Active Meds: Active Medications Generic Name Dose Route Start Last Admin Trade Name Freq PRN Reason Stop Dose Admin Acetaminophen 650 mg 03/22/23 01:54 03/24/23 19:45 Acetaminophen 325 Mg Tablet PO 03/21/24 01:53 650 mg Q6HR PRN Administration Pain Scale 1 - 3 or fever Enoxaparin Sodium 40 mg 03/22/23 10:00 03/25/23 09:47 Enoxaparin 40 Mg/0.4 Ml Syringe SUBCUT 03/21/24 09:59 40 mg DAILY@10 ROXANNE Administration Folic Acid 1 mg 03/22/23 21:00 03/25/23 08:51 Folic Acid 50 Mg/10 Ml Vial IV-PUSH 03/21/24 20:59 1 mg BID ROXANNE Administration Magnesium Sulfate 2 gm in 50 mls @ 25 mls/hr 03/22/23 01:54 Magnesium Sulf 2gm-*Swfi* IV 03/21/24 01:53 DAILY PRN Magnesium Level < 1.5 Ceftriaxone Sodium 1 gm in 50 mls @ 100 mls/hr 03/23/23 22:00 03/24/23 22:00 Rocephin IV 100 mls/hr Q24H ROXANNE Administration Lactulose 10 gm 03/22/23 09:00 03/25/23 08:50 Lactulose 20 Gm/30 Ml Udc PO 03/21/24 08:59 10 gm DAILY ROXANNE Administration Magnesium Oxide 200 mg 03/22/23 09:00 03/25/23 08:49 Magnesium Oxide 400 Mg Tablet PO 03/21/24 08:59 200 mg DAILY ROXANNE Administration Potassium Chloride 20 meq 03/22/23 01:54 Potassium Chloride Er 20 Meq Tab.Er.Prt PO 03/21/24 01:53 DAILY PRN Hypokalemia Potassium Chloride 20 meq 03/22/23 09:00 03/25/23 08:50 Potassium Chloride Er 20 Meq Tab.Er.Prt PO 03/21/24 08:59 20 meq BID ROXANNE Administration Sodium Chloride 0 ml 03/21/23 19:04 Sodium Chloride 0.9 % 10 Ml Syringe IV-PUSH 03/20/24 19:03 PRN PRN Flush Sodium Chloride 0 ml 03/22/23 06:00 03/24/23 21:16 Sodium Chloride 0.9 % 10 Ml Syringe IV-PUSH 03/21/24 05:59 10 ml QSHIFT ROXANNE Administration Thiamine HCl 100 mg 03/22/23 12:00 03/25/23 08:50 Thiamine 200 Mg/2 Ml Vial IV-PUSH 03/21/24 11:59 100 mg DAILY ROXANNE Administration Tramadol HCl 50 mg 03/22/23 01:54 03/25/23 09:47 Tramadol 50 Mg Tablet PO 09/18/23 01:53 50 mg Q6H PRN Administration Pain Scale 4 - 7 A&P - Hospitalist Assessment/Plan (1) Weakness of distal arms and legs: (2) Bilateral leg paresthesia: (3) Paresthesia of upper extremity: (4) Hypophosphatemia: (5) Hypomagnesemia: (6) UTI (urinary tract infection): (7) Transaminitis: Plan Severe polyneuropathy with sensory loss and paraesthesias of b/l LE Probably due to folate and possible thiamine deficiency with her hx of alcohol abuse Hepatic steatosis Hx of heroin use Transaminitis Hypophosphatemia Hypomagnesemia -Still with persistent neurological deficits. slight improvement. ?Continue thiamine and folate supplements. -Given b12 supplement x 1 . -MRI brain and lumbar done and reviewed. -Continue to optimize electrolytes. -Liver function stable so far. -lab workup in process. -PT/OT following, suggesting acute rehab which patient agreeable to it at this time. -Counseled on abstinence from alcohol and substance use. Acute nonhemorrhagic cystitis -Remained afebrile with no leukocytosis -Urine culture growing Klebsiella pneumonia -De-escalated antibiotics to Rocephin IV to complete 5 days course of treatment DVT PPx-SCDs, enoxaparin Diet order-regular CODE STATUS-full code Discussed with patient at bedside, all questions answered CM following for placement to acute rehab Documented By: Brianne Umanzor MD 03/25/23 13 30 Signed By: <Electronically signed by Brianne Umanzor MD> 03/25/23 1331 [facility] Work Phone: 1(370) 968-527909-03-2023 Progress note Author Brianne Umanzor [facility] March 24, 2023 12:31pm Note Date/Time March 24, 2023 12:31pm [facility] [address] [place] [address] Hospitalist Progress Note Signed Patient: Rica Stout MR#: [id number] : 1995 Acct:[id number] Age/Sex: 27 / F Adm Date: 3 Loc: 4N Room: [address] [place] [address] Type: ADM IN Attending Dr: Brianne Umanzor MD Copies to: ~ Date of Service: 03/24/2023 Subjective Subjective Narrative: Patient was seen and evaluated at bedside this morning. She remained afebrile with no leukocytosis. Denies any nausea, vomiting, diarrhea. She feels slightly better again today. Slight improvement in numbness and the burning sensation in her legs. Able to walk slowly to the bathroom. Participating with PT/OT. Exam Physical Exam Vital Signs: Temp Pulse Resp BP Pulse Ox O2 Del Method 97.8 F 99 H 12 123/84 98 Room Air 03/24/23 11:25 03/24/23 11:25 03/24/23 11:25 03/24/23 11:25 03/24/23 11:25 03/24/23 11:25 Narrative: Const General: cooperative HEENT Normal oropharyngeal mucosa without any ulcers or exudates Eyes: Conjunctiva normal Pulmonary Auscultation: clear to auscultation , no crackles, no wheezes Cardiovascular Rate: normal rate Rhythm: regular rhythm Heart Sounds: S1 normal, S2 normal and no murmurs GI Inspection: non-distended Palpation: soft, not firm and nontender. No rigidity or rebound. Deferred Neuro General: alert, awake and oriented x3. decrease sensation in LE L>R below knees.strength about 4/5 in LE. Musculoskeletal: normal range of motion Extrem General: no cyanosis, no pedal edema Skin: no significant ulcers, no rash noted Psych Appearance: appropriate affect. Grossly normal Objective Lab Results 03/23/23 05:32 03/24/23 05:48 Microbiology Results Microbiology 03/21/23 23:50 Cerebral Spinal Fluid Aerobic Culture - Final No Growth 2 Days 03/21/23 23:50 Cerebral Spinal Fluid Anaerobic Culture - Preliminary No Anaerobes Isolated 2 Days 03/21/23 23:50 Cerebral Spinal Fluid Gram Stain - Final 03/21/23 23:03 Blood - Right Antecubital Blood Culture - Preliminary No Growth 2 Days 03/21/23 21:48 Blood - Left Antecubital Blood Culture - Preliminary No Growth 2 Days 03/21/23 19:25 Urine - Clean-Voided Midstream Urine Culture - Final Klebsiella pneumoniae Meds Allergies and Active Meds Allergies Penicillins Allergy (Verified 03/21/23 19:05) Rash Active Meds: Active Medications Generic Name Dose Route Start Last Admin Trade Name Freq PRN Reason Stop Dose Admin Acetaminophen 650 mg 03/22/23 01:54 03/23/23 21:08 Acetaminophen 325 Mg Tablet PO 03/21/24 01:53 650 mg Q6HR PRN Administration Pain Scale 1 - 3 or fever Enoxaparin Sodium 40 mg 03/22/23 10:00 03/24/23 09:04 Enoxaparin 40 Mg/0.4 Ml Syringe SUBCUT 03/21/24 09:59 40 mg DAILY@10 ROXANNE Administration Folic Acid 1 mg 03/22/23 21:00 03/24/23 08:43 Folic Acid 50 Mg/10 Ml Vial IV-PUSH 03/21/24 20:59 1 mg BID ROXANNE Administration Magnesium Sulfate 2 gm in 50 mls @ 25 mls/hr 03/22/23 01:54 Magnesium Sulf 2gm-*Swfi* IV 03/21/24 01:53 DAILY PRN Magnesium Level < 1.5 Ceftriaxone Sodium 1 gm in 50 mls @ 100 mls/hr 03/23/23 22:00 03/23/23 23:08 Rocephin IV 100 mls/hr Q24H ROXANNE Administration Lactulose 10 gm 03/22/23 09:00 03/24/23 08:42 Lactulose 20 Gm/30 Ml Udc PO 03/21/24 08:59 10 gm DAILY ROXANNE Administration Magnesium Oxide 200 mg 03/22/23 09:00 03/24/23 08:42 Magnesium Oxide 400 Mg Tablet PO 03/21/24 08:59 200 mg DAILY ROXANNE Administration Potassium Chloride 20 meq 03/22/23 01:54 Potassium Chloride Er 20 Meq Tab.Er.Prt PO 03/21/24 01:53 DAILY PRN Hypokalemia Potassium Chloride 20 meq 03/22/23 09:00 03/24/23 08:43 Potassium Chloride Er 20 Meq Tab.Er.Prt PO 03/21/24 08:59 20 meq BID ROXANNE Administration Sodium Chloride 0 ml 03/21/23 19:04 Sodium Chloride 0.9 % 10 Ml Syringe IV-PUSH 03/20/24 19:03 PRN PRN Flush Sodium Chloride 0 ml 03/22/23 06:00 03/24/23 05:37 Sodium Chloride 0.9 % 10 Ml Syringe IV-PUSH 03/21/24 05:59 10 ml QSHIFT ROXANNE Administration Thiamine HCl 100 mg 03/22/23 12:00 03/24/23 08:43 Thiamine 200 Mg/2 Ml Vial IV-PUSH 03/21/24 11:59 100 mg DAILY ROXANNE Administration Tramadol HCl 50 mg 03/22/23 01:54 03/24/23 08:43 Tramadol 50 Mg Tablet PO 09/18/23 01:53 50 mg Q6H PRN Administration Pain Scale 4 - 7 A&P - Hospitalist Assessment/Plan (1) Weakness of distal arms and legs: (2) Bilateral leg paresthesia: (3) Paresthesia of upper extremity: (4) Hypophosphatemia: (5) Hypomagnesemia: (6) UTI (urinary tract infection): (7) Transaminitis: Plan Severe polyneuropathy with sensory loss and paraesthesias of b/l LE Probably due to folate and possible thiamine deficiency with her hx of alcohol abuse Hepatic steatosis Hx of heroin use Transaminitis Hypophosphatemia Hypomagnesemia -Still with persistent neurological deficits. slight improvement. ?Continue thiamine and folate supplements. -Given b12 supplement x 1 . -MRI brain and lumbar done and reviewed. -Continue to optimize electrolytes. -Liver function stable so far. -lab workup in process. -PT/OT following, suggesting acute rehab which patient agreeable to it at this time. -Counseled on abstinence from alcohol and substance use. Acute nonhemorrhagic cystitis -Remained afebrile with no leukocytosis -Urine culture growing Klebsiella pneumonia -De-escalated antibiotics to Rocephin IV to complete 5 days course of treatment DVT PPx-SCDs, enoxaparin Diet order-regular CODE STATUS-full code Discussed with patient at bedside, all questions answered CM following for placement to acute rehab Documented By: Brianne Umanzor MD 03/24/23 12 29 Signed By: <Electronically signed by Brianne Umanzor MD> 03/24/23 [facility] Work Phone: 1(113) 908-441609-03-2023 Progress note Author Loli Cheema [facility] March 24, 2023 10:52am Note Date/Time March 24, 2023 9:58am [facility] [address] [place] [address] Neurology Progress Note Signed Patient: Rica Stout MR#: [id number] : 1995 Acct:[id number] Age/Sex: 27 / F Adm Date: 3 Loc: 4N Room: 2I7538-8 Type: ADM IN Attending Dr: Brianne Umanzor MD Copies to: ~ Date of Service: 03/24/2023 Subjective Subjective Narrative: She states that she was able to walk with a walker to the end of the [place] and back. IT was still difficult because her arms feel weak also/ She woke up in pain so that was a little hindering She worked with OT NO new issues. She did wake up a few times through the night no swallowing issues no falls. She is a little nauseated but she needs to eat. Denies any new chest pain shortness of breath headache. No new weakness numbness or tingling is with baseline or getting slightly better. Not having vomiting. Exam Physical Exam Vital Signs: Temp Pulse Resp BP Pulse Ox O2 Del Method 97.4 F L 85 19 114/70 98 Room Air 03/24/23 07:58 03/24/23 07:58 03/24/23 07:58 03/24/23 07:58 03/24/23 07:58 03/24/23 07:58 Neuro Other: Patient is laying in the bed she is alert and oriented x3 and not in any true distress HEENT normocephalic atraumatic Speech was clear and fluent Cranial nerves II through XII pupils are equal reactive to light and accommodation bilaterally extraocular muscles were intact bilaterally visual ceballos are full there is no nystagmus there is no facial asymmetry tongue is midline good range of motion palate rises symmetrically uvula is midline there are no facial sensory deficit she has good bilateral shoulder shrug Pronator drift is negative Coordination shows no signs of dysmetria with good rapid alternating movements [id number] Tone is physiologic Deep tendon reflexes are trace out of 4 bilateral patellar and achilles. 1/4 joaquim biceps and BR Motor examination is 5 out of 5 proximally but weakness 4-/5 distally Babinski is negative Language skills are intact Memory is intact Fund of knowledge is within normal limits Objective Vital Signs Vital Signs: Vital Signs - 24 hr 03/23/23 11:23 03/23/23 15:49 03/23/23 15:42 Temperature 98.0 F 98.5 F 98.2 F Pulse Rate 90 89 92 H Respiratory Rate 20 20 14 Blood Pressure 111/74 117/80 121/77 02 Sat by Pulse Oximetry 99 98 97 Oxygen Delivery Method Room Air Room Air 03/23/23 19:34 03/24/23 00:19 03/24/23 06:03 Temperature 98.2 F 98.0 F Pulse Rate 89 80 73 Respiratory Rate 12 12 12 Blood Pressure 123/80 118/76 107/63 02 Sat by Pulse Oximetry 100 99 95 Oxygen Delivery Method Room Air Room Air Room Air 03/24/23 07:46 03/24/23 07:58 Temperature 97.4 F L Pulse Rate 85 Respiratory Rate 19 Blood Pressure 114/70 02 Sat by Pulse Oximetry 98 Oxygen Delivery Method Room Air Room Air Labs 03/23/23 05:32 03/24/23 05:48 Lab Results: 03/22/23 14:51: Hemoglobin A1c 4.9 Therapy Recommendations Therapy Recommendations: OT Recommendations OT Recommended Discharge Inpatient Rehab Unit Location OT Recommended Services at Physical Therapy,Occupational Therapy Discharge PT Recommendations PT Recommended Discharge Inpatient Rehab Unit Location PT Recommended Services at Physical Therapy,Occupational Therapy Discharge PT Discharge Comment IP Rehab Assessment/Plan (1) Weakness of distal arms and legs: Assessment/Problem Details: DATA REVIEW: -Head CT unremarkable, possible low-lying cerebellar tonsils -MCV 109, MCH 36.3, ESR 21, CRP undetectable, INR 1.1, potassium 3.2, BUN 3, creatinine 0.5, lactic acid 3.9-4.4, calcium 7.3-8.5, total bilirubin normal, AST 79 ALT 37, alk phos 112, total protein 5.2, albumin 2.7, folate 2.3, B12 417 -CSF total nucleated cells 0, red blood cells 0, glucose 84, protein 36 -MRI lumbar spine with and without contrast is unremarkable -MRI brain with and without contrast is unremarkable ASSESSMENT: 27 year old female wth a Severe length dependent polyneuropathy, with sensory loss and paresthesias from about the knees down bilaterally and perhaps in fingertips as well. This is causing her weakness and difficulty with ambulation. She was able to walk with a walker today. It is recommended that she goes to acute rehab and were awaiting approval for that unfortunately it is the weekend and tomorrow is a holiday so it may not be until Saturday. She had an LP that was negative for acute Guillain-Del Rio? or CIDP. At this time it appears to be more of a neuropathy. It could be a hereditary sensorimotor neuropathy such as Zrtfaly-Xerzm-Kntpe and she will likely need some genetic testing as an outpatient. She has labs pending to assess for any other acquired causes of neuropathy such as hepatitis with her history of heroinabuse. She does some hand and foot issues therefore this could be hereditary weneed to look into this further. Labs are still pending s She does have a history of some liver issues and elevated ammonia we will leave further work-up of her liver to the primary service. Liver disease, concern for cirrhosis. History of heroin abuse. She thinks hepatitis C testing was negative a few years ago but it is a definite concern for me now. She has been found to have hyperammonemia, and some of her symptoms(legs giving out) sound like she has been dealing with intermittent asterixis. She has hypoalbuminemia and associated pitting edema in her lower extremities. PLAN: lab work AST 54 CRP less than 5 albumin 2.8 folate 2.3 B12 was normal Serum ammonia 57 slightly elevated, A1c pending, SPEP pending immunofixation, PAT, cryoglobulins, hepatitis C antibodies, TSH 2.53, vitamin E. SPEP pending Continue supplementing folic acid at 1 mg IV push twice daily for now and upon discharge she should be on 1 mg daily chronically Continue the thiamine supplementation and I would have her continue this orally upon discharge as well B12 supplementation for now, but probably unnecessary to continue supplementation in the outpatient setting leave liver issues to the primar service. Continue with therapies Agree with acute rehab and OK to go whenever approved. Might need genetic testing as an outpatient This was all discussed with the patient all questions were answered she agreed with the treatment plan okay to DC to rehab once insurance approves Code(s): R29.898 - Other symptoms and signs involving the musculoskeletal system Status: Acute Documented By: Loli Cheema DO 03/24/23 0956 Signed By: <Electronically signed by DO Loli Cheema> 03/24/23 1052 [facility] Work Phone: 1(238) 328-963309-02-2023 Progress note Author Brianne Umanzor [facility] March 23, 2023 1:49pm Note Date/Time March 23, 2023 1:49pm [facility] [address] [place] [address] Hospitalist Progress Note Signed Patient: Rica Stout MR#: [id number] : 1995 Acct:[id number] Age/Sex: 27 / F Adm Date: 3 Loc: 4N Room: 9E1843-9 Type: ADM IN Attending Dr: Brianne Umanzor MD Copies to: ~ Date of Service: 03/23/2023 Subjective Subjective Narrative: Patient was seen and evaluated at bedside this morning. She remained afebrile with no leukocytosis. Denies any nausea, vomiting, diarrhea. She feels slightly better today. Slight improvement in numbness and the burning sensationin her legs. Able to walk slowly to the bathroom. Participating with PT/OT. Exam Physical Exam Vital Signs: Temp Pulse Resp BP Pulse Ox O2 Del Method 98.0 F 90 20 111/74 99 Room Air 03/23/23 11:23 03/23/23 11:23 03/23/23 11:03/23/23 11:03/23/23 11:03/23/23 08:00 Narrative: Const General: cooperative HEENT Normal oropharyngeal mucosa without any ulcers or exudates Eyes: Conjunctiva normal Pulmonary Auscultation: clear to auscultation , no crackles, no wheezes Cardiovascular Rate: normal rate Rhythm: regular rhythm Heart Sounds: S1 normal, S2 normal and no murmurs GI Inspection: non-distended Palpation: soft, not firm and nontender. No rigidity or rebound. Deferred Neuro General: alert, awake and oriented x3. decrease sensation in LE L>R below knees.strength about 4/5 in LE. Musculoskeletal: normal range of motion Extrem General: no cyanosis, no pedal edema Skin: no significant ulcers, no rash noted Psych Appearance: appropriate affect. Grossly normal Objective Lab Results 03/23/23 05:32 03/23/23 05:32 Microbiology Results Microbiology 03/21/23 19:25 Urine - Clean-Voided Midstream Urine Culture - Preliminary Gram Negative Bacilli 03/21/23 23:50 Cerebral Spinal Fluid Aerobic Culture - Preliminary No Growth 1 Day 03/21/23 23:50 Cerebral Spinal Fluid Anaerobic Culture - Preliminary No Anaerobes Isolated 1 Day 03/21/23 23:50 Cerebral Spinal Fluid Gram Stain - Final 03/21/23 23:03 Blood - Right Antecubital Blood Culture - Preliminary No Growth 1 Day 03/21/23 21:48 Blood - Left Antecubital Blood Culture - Preliminary No Growth 1 Day Meds Allergies and Active Meds Allergies Penicillins Allergy (Verified 03/21/23 19:05) Rash Active Meds: Active Medications Generic Name Dose Route Start Last Admin Trade Name Freq PRN Reason Stop Dose Admin Acetaminophen 650 mg 03/22/23 01:54 03/23/23 12:36 Acetaminophen 325 Mg Tablet PO 03/21/24 01:53 650 mg Q6HR PRN Administration Pain Scale 1 - 3 or fever Enoxaparin Sodium 40 mg 03/22/23 10:00 03/23/23 09:17 Enoxaparin 40 Mg/0.4 Ml Syringe SUBCUT 03/21/24 09:59 40 mg DAILY@10 ROXANNE Administration Folic Acid 1 mg 03/22/23 21:00 03/23/23 08:11 Folic Acid 50 Mg/10 Ml Vial IV-PUSH 03/21/24 20:59 1 mg BID ROXANNE Administration Magnesium Sulfate 2 gm in 50 mls @ 25 mls/hr 03/22/23 01:54 Magnesium Sulf 2gm-*Swfi* IV 03/21/24 01:53 DAILY PRN Magnesium Level < 1.5 Cefepime HCl 2 gm in 50 mls @ 100 mls/hr 03/22/23 11:00 03/23/23 10:17 Maxipime IV 100 mls/hr Q12H ROXANNE Administration Lactulose 10 gm 03/22/23 09:00 03/23/23 08:11 Lactulose 20 Gm/30 Ml Udc PO 03/21/24 08:59 10 gm DAILY ROXANNE Administration Magnesium Oxide 200 mg 03/22/23 09:00 03/23/23 08:11 Magnesium Oxide 400 Mg Tablet PO 03/21/24 08:59 200 mg DAILY ROXANNE Administration Potassium Chloride 20 meq 03/22/23 01:54 Potassium Chloride Er 20 Meq Tab.Er.Prt PO 03/21/24 01:53 DAILY PRN Hypokalemia Potassium Chloride 20 meq 03/22/23 09:00 03/23/23 08:11 Potassium Chloride Er 20 Meq Tab.Er.Prt PO 03/21/24 08:59 20 meq BID ROXANNE Administration Sodium Chloride 0 ml 03/21/23 19:04 Sodium Chloride 0.9 % 10 Ml Syringe IV-PUSH 03/20/24 19:03 PRN PRN Flush Sodium Chloride 0 ml 03/22/23 06:00 03/23/23 13:01 Sodium Chloride 0.9 % 10 Ml Syringe IV-PUSH 03/21/24 05:59 10 ml QSHIFT ROXANNE Administration Thiamine HCl 100 mg 03/22/23 12:00 03/23/23 08:11 Thiamine 200 Mg/2 Ml Vial IV-PUSH 03/21/24 11:59 100 mg DAILY ROXANNE Administration Tramadol HCl 50 mg 03/22/23 01:54 03/23/23 08:51 Tramadol 50 Mg Tablet PO 09/18/23 01:53 50 mg Q6H PRN Administration Pain Scale 4 - 7 A&P - Hospitalist Assessment/Plan (1) Weakness of distal arms and legs: (2) Bilateral leg paresthesia: (3) Paresthesia of upper extremity: (4) Hypophosphatemia: (5) Hypomagnesemia: (6) UTI (urinary tract infection): (7) Transaminitis: Plan Severe polyneuropathy with sensory loss and paraesthesias of b/l LE Probably due to folate and possible thiamine deficiency with her hx of alcohol abuse Hepatic steatosis Hx of heroin use Transaminitis Hypophosphatemia Hypomagnesemia -Still with persistent neurological deficits. ?Continue thiamine and folate supplements. -Given b12 supplement x 1 . -MRI brain and lumbar done and reviewed. -Continue to optimize electrolytes. -Liver function stable so far. -lab workup in process. -PT/OT following, suggesting acute rehab which patient agreeable to it at this time. -Counseled on abstinence from alcohol and substance use. Acute nonhemorrhagic cystitis -Remained afebrile with no leukocytosis ?Continue cefepime -Urine culture growing gram-negative bacilli -We will adjust antibiotics according to final culture DVT PPx-SCDs, enoxaparin Diet order-regular CODE STATUS-full code Discussed with patient at bedside, all questions answered Documented By: Brianne Umanzor MD 03/23/23 13 40 Signed By: <Electronically signed by Brianne Umanzor MD> 03/23/23 8290 [facility] Work Phone: 1(814) 796-608609-02-2023 Progress note Author Loli Cheema [facility] March 23, 2023 12:13pm Note Date/Time March 23, 2023 11:07am [facility] [address] [place] [address] Neurology Progress Note Signed Patient: Rica Stout MR#: [id number] : 1995 Acct:[id number] Age/Sex: 27 / F Adm Date: 3 Loc: Room: [address] [place] [address] Type: ADM IN Attending Dr: Brianne Umanzor MD Copies to: ~ Date of Service: 03/23/2023 Subjective Subjective Narrative: The patient states that she is tired this morning. She slept OK last night. she worked with PT and OT this morning. They did some strength tests. They recommended that she goes up to acute rehab for therapy. She denies any family hx of nerve disorder. However she thinks her mother sees someone in our office for some issue with her feet and hands but she is unsure. Denies any falls she denies any new numbness tingling. She states that PT and OT recommended her to go to acute rehab. She denies any incontinence she deniesany trouble swallowing double vision no chest pain shortness of breath nausea orvomiting Exam Physical Exam Vital Signs: Temp Pulse Resp BP Pulse Ox O2 Del Method 97.8 F 94 H 12 122/72 99 Room Air 03/23/23 07:49 03/23/23 07:49 03/23/23 07:49 03/23/23 07:49 03/23/23 07:49 03/23/23 08:00 Neuro Other: Patient is laying in the bed she is alert and oriented x3 and not in any true distress HEENT normocephalic atraumatic Speech was clear and fluent Cranial nerves II through XII pupils are equal reactive to light and accommodation bilaterally extraocular muscles were intact bilaterally visual ceballos are full there is no nystagmus there is no facial asymmetry tongue is midline good range of motion palate rises symmetrically uvula is midline there areno facial sensory deficit she has good bilateral shoulder shrug Pronator drift is negative Coordination shows no signs of dysmetria with good rapid alternating movements [id number] Tone is physiologic Deep tendon reflexes are trace out of 4 bilateral patellar and achilles. 1/4 joaquim biceps and BR Motor examination is 5 out of 5 proximally but weakness 4-/5 distally Babinski is negative Language skills are intact Memory is intact Fund of knowledge is within normal limits Objective Vital Signs Vital Signs: Vital Signs - 24 hr 03/22/23 11:42 03/22/23 16:12 03/22/23 19:47 Temperature 97.6 F 97.9 F 97.7 F Pulse Rate 95 H 85 99 H Respiratory Rate 12 13 18 Blood Pressure 121/85 128/81 119/80 02 Sat by Pulse Oximetry 100 100 97 Oxygen Delivery Method Room Air Room Air Room Air 03/22/23 21:55 03/23/23 06:11 03/23/23 07:49 Temperature 98.2 F 97.8 F Pulse Rate 89 94 H Respiratory Rate 17 12 Blood Pressure 113/73 122/72 02 Sat by Pulse Oximetry 99 99 Oxygen Delivery Method Room Air Room Air Room Air 03/23/23 08:00 Temperature Pulse Rate Respiratory Rate Blood Pressure 02 Sat by Pulse Oximetry Oxygen Delivery Method Room Air Labs 03/23/23 05:32 03/23/23 05:32 Lab Results: 03/22/23 14:51: Hemoglobin A1c 4.9 03/22/23 14:52: Ammonia 57 H Therapy Recommendations Therapy Recommendations: PT Recommendations PT Recommended Discharge Inpatient Rehab Unit Location PT Recommended Services at Physical Therapy,Occupational Therapy Discharge PT Discharge Comment IP Rehab Assessment/Plan (1) Weakness of distal arms and legs: Assessment/Problem Details: DATA REVIEW: -Head CT unremarkable, possible low-lying cerebellar tonsils -MCV 109, MCH 36.3, ESR 21, CRP undetectable, INR 1.1, potassium 3.2, BUN 3, creatinine 0.5, lactic acid 3.9-4.4, calcium 7.3-8.5, total bilirubin normal, AST 79 ALT 37, alk phos 112, total protein 5.2, albumin 2.7, folate 2.3, B12 417 -CSF total nucleated cells 0, red blood cells 0, glucose 84, protein 36 -MRI lumbar spine with and without contrast is unremarkable -MRI brain with and without contrast is unremarkable ASSESSMENT: 27 year old female wth a Severe length dependent polyneuropathy, with sensory loss and paresthesias from about the knees down bilaterally and perhaps in fingertips as well. Complete loss of vibratory sensation and proprioception in distal lower extremities, and has related positive Romberg sign and significant gait instability. She had an LP that was negative for acute Guillain-Del Rio? or CIDP. At this time it appears to be more of a neuropathy. It could be a hereditary sensorimotor neuropathy such as [id number]-[id number] and she will likely need some genetic testing as an outpatient. She has labs pending to assess for any other acquired causes of neuropathy such as hepatitis with her history of heroin abuse. She does some hand and foot issues therefore this could be hereditary we need to look into this further. Time labs are still pending. She was recommended to go to acute rehab which I agree with. At this time she can go as soon as she is approved from an insurance standpoint She does have a history of some liver issues and elevated ammonia we will leave further work-up of her liver to the primary service. Liver disease, concern for cirrhosis. History of heroin abuse. She thinks hepatitis C testing was negative a few years ago but it is a definite concern for me now. She has been found to have hyperammonemia, and some of her symptoms(legs giving out) sound like she has been dealing with intermittent asterixis. She has hypoalbuminemia and associated pitting edema in her lower extremities. PLAN: lab work AST 54 CRP less than 5 albumin 2.8 folate 2.3 B12 was normal Serum ammonia 57 slightly elevated, A1c pending, SPEP pending immunofixation, PAT, cryoglobulins, hepatitis C antibodies, TSH 2.53, vitamin E. Continue supplementing folic acid at 1 mg IV push twice daily for now and upon discharge she should be on 1 mg daily chronically Continue the thiamine supplementation and I would have her continue this orally upon discharge as well B12 supplementation for now, but probably unnecessary to continue supplementation in the outpatient setting Abdominal ultrasound with consideration for CT studies- will leave liver work up to primary service Continue with therapies Agree with acute rehab Might need genetic testing as an outpatient This was all discussed with the patient all questions were answered she agreed with the treatment plan okay to DC to rehab once insurance approves Code(s): R29.898 - Other symptoms and signs involving the musculoskeletal system Status: Acute Documented By: Loli Cheema DO 03/23/23 1107 Signed By: <Electronically signed by DO Loli Cheema> 03/23/23 [facility] Work Phone: [phone]) 950-129709-01-2023 Consult note Author Chele Gamino [facility] March 22, 2023 3:54pm Note Date/Time March 22, 2023 1:28pm [facility] [address] [place], [place] [id number] Neurology Consult Note Signed Patient: Rica Stout MR#: [id number] : 1995 Acct:[id number] Age/Sex: 27 / F Adm Date: 3 Loc: 4N Room: [address] [place] [address] Type: ADM IN Attending Dr: Brianne Umanzor MD Copies to: DO Brianne Stevenson MD Pamela Sue Cramer, DIRECTOR SUPPLIER QUALITY~ HPI Consult Date: 03/22/23 Membership Assistant: Chele Gamino DO [facility] Medical History (Updated 03/22/23 @ 01:53 by Yoana Rico APRN) Hyperammonemia No pertinent past medical history Transaminitis Surgical History (Updated 03/21/23 @ 19:41 by Yeny Jenkins RN) History of section Family History (Updated 03/22/23 @ 01:38 by Yoana Rico APRN) Mother Cancer Breast Social History Smoking Status: Current every day smoker Tobacco Type: e-cigarettes Substance Use Type: None Substance Abuse Comment: daily drinker previously, none in the past week. Meds Medications and Allergies Allergies Penicillins Allergy (Verified 03/21/23 19:05) Rash Home Medications lactulose 10 gram/15 mL oral solution 10 g PO DAILY 03/21/23 [History Confirmed 03/21/23] magnesium oxide 200 mg PO DAILY 03/21/23 [History Confirmed 03/21/23] potassium chloride 20 mEq tablet,extended release 20 meq PO BID 03/21/23 [History Confirmed 03/21/23] Exam Physical Exam Vital Signs: Temp Pulse Resp BP Pulse Ox O2 Del Method 97.6 F 95 H 12 121/85 100 Room Air 03/22/23 11:42 03/22/23 11:42 03/22/23 11:42 03/22/23 11:42 03/22/23 11:42 03/22/23 11:42 Results Laboratory Findings 03/21/23 19:15 03/22/23 04:34 Lab Results: ESR 21 mm/hr (0-19) H 03/21/23 19:15 Diagnostic Findings Imaging/Impressions: ITS Impressions Chest X-Ray 03/21/23 21:23 IMPRESSION: No acute process. Impression dictated by: Dave Clark M.D.03/22/2023 8:07 AM Dictation Location: [place] [address] 03/21/23 21:23 IMPRESSION: Unremarkable exam Impression dictated by: Dave Clark M.D.03/22/2023 8:08 AM Dictation Location: [id number] Assessment/Plan (1) Weakness of distal arms and legs: Assessment/Problem Details: CONSULT REASON: Paresthesias HPI: 27-year-old woman sent in from clinic upon having an abnormal EMG study performed by Dr. Arrington. History of heroin abuse several years ago, starting using it because people around her were using it it, was not because of pain medication prescriptions. She quit that a few years ago and was on Vivitrol fora while. Remains clean. History of alcohol abuse from her early to mid 20s up until earlier this year. Would drink excessively, especially in the evenings, very consistently. She says a few years ago she was tested for hepatitis C and checked out okay at that time. More recently she has been found to be hyperammonemic. No one around her has noticed any significant hepatic encephalopathy. She was supposed to have an appointment with a alarm security or surveillance monitor today to figure out what to do next in terms of work-up. She had some recent labs that again showed a critical high ammonia level but the number is not remembered. She started falling or nearly falling back in September. Would feel like her legs would buckle. She noticed increasingly having a hard time with balance. Gait had become very unsteady. She had to quit her job at a [employer] because it was too much time on her feet. She has 2 children, ages 6 and 8, andit is hard to keep up with them. She has not had any regular alcohol consumption since early this spring but an isolated drink here and there it sounds like. She has noxious sensations from her knees down, especially in the feet where can feel like burning. She had been taking ibuprofen nightly to helpher sleep. PCP had wanted to do MRI of her brain but insurance kept denying. Lumbar puncture was performed in the emergency department. She admits to a verypoor diet. Eating irregularly, usually not enough, sometimes not eating at all. She thinks she is probably nutritionally deficient. She has noticed pitting edema in her legs. Both she and the man she is with think that she seems to be doing a bit better today and they attribute that to regular meals and IV fluids and vitamins. She also made mention that she feels like her fingertips may be experiencing a little bit of what her legs are experiencing. EXAMINATION: Well-kempt. No distress. No deformities or trauma. Normal spinal curvature. Limbs seem well-perfused. Mild pitting edema to bilateral distal lower extremities. Normal work of breathing. Visualized skin is generally intact andwithout lesions. Affect normal. Patient is alert and generally oriented. Attention normal. Speech is fluent and nondysarthric. Pupils are equal and reactive. Ocular motility is full. No nystagmus. Facial sensation is normal. Hearing is normal. Facial strength is normal. Tongue is midline. Muscle bulk,tone, and strength are normal. No tremors. No asterixis. Reflexes hypoactive in upper extremities and absent in bilateral lower extremities. No pathologic reflexes. Light touch is diminished distal to knees bilaterally. Vibratory sensation is completely absent distal to mid shins bilaterally. Pinprick sensation fades just proximal to knees bilaterally. Proprioception intact in hands and essentially absent in toes. Romberg positive. Unsteady gait. DATA REVIEW: -Head CT unremarkable, possible low-lying cerebellar tonsils -MCV 109, MCH 36.3, ESR 21, CRP undetectable, INR 1.1, potassium 3.2, BUN 3, creatinine 0.5, lactic acid 3.9-4.4, calcium 7.3-8.5, total bilirubin normal, AST 79 ALT 37, alk phos 112, total protein 5.2, albumin 2.7, folate 2.3, B12 417 -CSF total nucleated cells 0, red blood cells 0, glucose 84, protein 36 -MRI lumbar spine with and without contrast is unremarkable -MRI brain with and without contrast is unremarkable ASSESSMENT: 1. Severe length dependent polyneuropathy, with sensory loss and paresthesias from about the knees down bilaterally and perhaps in fingertips as well. Complete loss of vibratory sensation and proprioception in distal lower extremities, and has related positive Romberg sign and significant gait instability. With the currently available laboratory diagnostics, most likely explanation for the polyneuropathy may be nutritional, specifically folate deficiency. Folate deficiency, in turn, may be related to her past chronic significant alcohol usage, from which she now largely abstains, and more recently poor nutrition. Somewhat macrocytic with an MCV of 109. Given her history and current liver dysfunction that has not been fully worked up, I also have concern for her neuropathy being connected to liver-related causes such as hepatitis C. Based on a normal CSF protein level and no presence of enhanced orthickened lumbar nerve roots, I do not think that acute inflammatory demyelinating polyradiculoneuropathy or chronic inflammatory demyelinating polyradiculoneuropathy are playing a role. 2. Liver disease, concern for cirrhosis. History of heroin abuse. She thinks hepatitis C testing was negative a few years ago but it is a definite concern for me now. She has been found to have hyperammonemia, and some of her symptoms(legs giving out) sound like she has been dealing with intermittent asterixis. She has hypoalbuminemia and associated pitting edema in her lower extremities. PLAN: 1. Checking more labs: Serum ammonia, A1c, SPEP, immunofixation, PAT, cryoglobulins, hepatitis C antibodies, TSH, vitamin E. Consider checking vitamin B1 but has already been supplemented with it. 2. Continue supplementing folic acid at 1 mg IV push twice daily for now and upon discharge she should be on 1 mg daily chronically 3. Continue the thiamine supplementation and I would have her continue this orally upon discharge as well 4. I am okay with the B12 supplementation for now, but probably unnecessary to continue supplementation in the outpatient setting 5. Abdominal ultrasound with consideration for CT studies 6. Further recommendations to follow Code(s): R29.898 - Other symptoms and signs involving the musculoskeletal system Status: Acute Documented By: Chele Gamino DO 03/22/23 1323 Signed By: <Electronically signed by Chele Gamino DO> 03/22/23 1554 [facility] Work Phone: 1(476) 345-977409-01-2023 Progress note Author Brianne Umanzor [facility] March 22, 2023 12:53pm Note Date/Time March 22, 2023 12:52pm [facility] [address] [place] [address] Progress Note Signed Patient: Rica Stout MR#: [id number] : 1995 Acct:[id number] Age/Sex: 27 / F Adm Date: 3 Loc: 4N Room: 5G2552-7 Type: ADM IN Attending Dr: Brianne Umanzor MD Copies to: ~ Date of Service: 03/22/2023 Progress Narrative Note Persistent LE numbness with mild weakness ruling out GBS Long hx of alcohol use disorder and substance use PROGRESS NOTE Progress Note: Patient was admitted by overnight hospitalist. Notes reviewed. Patient was seen and evaluated at bedside this morning. She does have lower extremity numbnessand decreased sensation in LE. Undergoing workup to rule out intracranial process. LP was done. ruling out GBS. With her long hx of alcohol which she states she has cut down to occasional alcohol consumption. Will add IV thiamine,IV folic acid. B12 around 400s, still low normal. Folate is low. Will provide supplements. Mag supplements given. On IV antibiotics for UTI. Remained afebrilehere with no leukocytosis. Clinically with no evidence of sepsis. Blood cx pending. urine cx growing gram-negative bacilli. Continue IV AB. Lactic acidosisprobably due to her liver disease. Documented By: Brianne Umanzor MD 03/22/23 12 47 Signed By: <Electronically signed by Brianne Umanzor MD> 03/22/23 1253 [facility] Work Phone: 1(962) 288-116609-01-2023 History and physical note Author Parveen Keller [facility] March 22, 2023 7:30am Note Date/Time March 22, 2023 1:25am [facility] [address] [place] [address] Hospitalist H&P Signed Patient: Rica Stout MR#: [id number] : 1995 Acct:[id number] Age/Sex: 27 / F Adm Date: 3 Loc: Room: [address] [place] [address] Type: ADM IN Attending Dr: Parveen Keller MD Copies to: MD Danuta Toscano, ANDREA Rico, WATCH BAND ASSEMBLER~ HPI DATE OF EXAMINATION: 03/22/23 CHIEF COMPLAINT: paresthesia HISTORY OF PRESENT ILLNESS: Ms. Stout is a 27-year-old female with a history of heroin abuse and alcohol abuse the presents to the emergency room today as directed by her neurologist for failing an EMG. Patient seen and evaluated emergency room, resting in cart quietly. Patient reports that since September she has had numbness, tingling and pain to BLE. 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 She saw Dr. Arrington today for an EMG, she states he told me I failed and I need to go to the emergency room to be seen. She reports in September when this first began she experienced legs giving out on her and just falling to the ground, she will use crutches to get around. She does states shehas had episodes where she could not make it to the bathroom in time and was incontinent. She has had testing done at the [facility] where they foundher liver enzymes were elevated, her PCP found that her ammonia level was also elevated and started her on lactulose. She states she has been experiencing exertional shortness of breath. She reports a burning pain to both of her feet,states she has taken ibuprofen 2 to 3 tablets every night to help her sleep. She states that her PCP was also wanting to do an MRI of her brain, but insurance kept denying the test. She states she is a non-smoker, social drinker. EKG on arrival to the emergency room shows sinus tach. Chest x-ray shows no acute process, pending final read. CT of the head is negative for acute intracranial abnormality. Lumbar puncture was performed, clear, colorless fluidreturned negative for neutrophils, lymphocytes, monocytes, eosinophils, the restof the tests are pending, Cultures pending as well CBC with an MCV of 108.6, MCH 36.3, H&H 12.7/37.8. ESR slightly elevated at 21. Coags unremarkable. CMPwith a potassium of 3.2, chloride 108, serum bicarb 20, anion gap 16.2, BUN 3, creatinine 0.49, glucose 130, calcium 8.5, phosphorus 2.3, magnesium 1.4, AST 79, ALT 37, ALP 112. Lactic acid 3.9, repeat is pending. UA with cloudy, yellow urine, trace of protein, trace ketones, positive for nitrites, 2+ leukocytes, 20-49 WBCs, 4+ bacteria, culture is pending, blood cultures were also performed and these are pending. She was medicated with cefepime, magnesium, potassium, 2L saline bolus. She will be admitted to the MedSurg floor under the care of thehospitalist team for further evaluation and treatment. Review of Systems Review of Systems Review of systems: A 10 point review of systems was obtained, negative unless noted in the HPI or below. [facility] Medical History (Updated 03/22/23 @ 01:53 by Yoana Rico APRN) Hyperammonemia No pertinent past medical history Transaminitis Surgical History (Updated 03/21/23 @ 19:41 by Yeny Jenkins RN) History of section Family History (Updated 03/22/23 @ 01:38 by Yoana Rico APRN) Mother Cancer Breast Social History Smoking Status: Current every day smoker Tobacco Type: e-cigarettes Substance Use Type: Alcohol Substance Abuse Comment: daily drinker previously, none in the past week. Meds Medications and Allergies Allergies Penicillins Allergy (Verified 03/21/23 19:05) Rash Home Medications lactulose 10 gram/15 mL oral solution 10 g PO DAILY 03/21/23 [History Confirmed 03/21/23] magnesium oxide 200 mg PO DAILY 03/21/23 [History Confirmed 03/21/23] potassium chloride 20 mEq tablet,extended release 20 meq PO BID 03/21/23 [History Confirmed 03/21/23] Exam Physical Exam Vital Signs: Temp Pulse Resp BP Pulse Ox O2 Del Method 98.9 F 109 H 27 H 109/60 100 Room Air 03/21/23 19:02 03/22/23 00:51 03/22/23 00:51 03/22/23 00:51 03/22/23 00:51 03/22/23 00:51 Narrative: CONST- Appears well -developed and well nourished. Thin HEAD - Normocephalic and atraumatic EENT-Sclera nonicteric, conjunctive are non-erythemic, moist oral mucosa, pharynx clear NECK-Supple, no cervical lymphadenopathy CARDIAC- tachycardic, regular rhythm, S1 & S2. PULM-diminished without wheeze or rhonchi, RA, no accessory muscle use or cough noted ABD - Soft. Bowel sounds are normal. No distention. No tenderness EXTREM- +1 pitting edema BLE calves, tenderness to bilateral feet SKIN- W/D good turgor MS- MAEX4 spontaneously, weakness to BLE, weak dorisflexion and plantar flexion,weak hand grasps to bilateral hands, numbness and tingling to BLE NEURO- A&Ox3 speech clear and tongue midline, equal facial symmetry, no focal motor deficits PSYCH-Mood, affect, and behavior appropriate Results Lab Results Labs: Laboratory Last Values Corrected WBC 7.2 X10E3/uL (3.8-11.6) 03/21/23 19:15 Uncorrected WBC Count 7.2 x10E3/uL (3.8-11.6) 03/21/23 19:15 RBC 3.48 X10E6/uL (3.60-5.00) L 03/21/23 19:15 Hgb 12.7 g/dL (11.8-15.4) 03/21/23 19:15 Hct 37.8 % (34.0-46.4) 03/21/23 19:15 MCV 108.6 fl (80-100) H 03/21/23 19:15 MCH 36.3 pg (24.7-34.3) H 03/21/23 19:15 MCHC 33.5 g/dL (32.0-35.0) 03/21/23 19:15 RDW 14.5 % (11.9-15.3) 03/21/23 19:15 Plt Count 319 x10E3/uL (150-450) 03/21/23 19:15 MPV 7.9 fl (6.3-10.7) 03/21/23 19:15 Neut % (Auto) 58.4 % (.) 03/21/23 19:15 Lymph % (Auto) 29.7 % (.) 03/21/23 19:15 Boundary % (Auto) 7.6 % (.) 03/21/23 19:15 Eos % (Auto) 2.7 % (.) 03/21/23 19:15 Baso % (Auto) 1.6 % (.) 03/21/23 19:15 Nucleat RBC Rel Count 0.1 /100 WBC (0-0.5) 03/21/23 19:15 Neut # (Auto) 4.2 x10E3/uL (1.8-7.7) 03/21/23 19:15 Lymph # (Auto) 2.1 x10E3/uL (1.00-4.8) 03/21/23 19:15 Boundary # (Auto) 0.5 x10E3/uL (0.0-0.8) 03/21/23 19:15 Eos # (Auto) 0.2 x10E3/uL (0.0-0.45) 03/21/23 19:15 Baso # (Auto) 0.1 x10E3/uL (0.0-0.2) 03/21/23 19:15 Monocyte Dist Width 19.31 % (0.00-20.00) 03/21/23 19:15 ESR 21 mm/hr (0-19) H 03/21/23 19:15 PT 12.4 Seconds (9.0-12.9) 03/21/23 19:15 INR 1.1 03/21/23 19:15 APTT 30.4 Seconds (25.1-36.5) 03/21/23 19:15 PHA Creatinine Clear 148.92 03/21/23 19:15 Sodium 141 mmol/L (136-145) 03/21/23 19:15 Potassium 3.2 mmol/L (3.5-5.1) L 03/21/23 19:15 Chloride 108 mmol/L (98-107) H 03/21/23 19:15 Carbon Dioxide 20.0 mmol/L (21.0-31.0) L 03/21/23 19:15 Anion Gap 16.2 mEq/L (6.0-15.0) H 03/21/23 19:15 BUN 3 mg/dL (7-25) L 03/21/23 19:15 Creatinine 0.49 mg/dL (0.60-1.20) L 03/21/23 19:15 Est GFR (CKD-EPI) > 60.0 mL/Min 03/21/23 19:15 Glucose 130 mg/dL (70-100) H 03/21/23 19:15 Lactic Acid 3.9 mmol/L (0.5-2.2) H* 03/21/23 21:48 Calcium 8.5 mg/dL (8.6-10.3) L 03/21/23 19:15 Phosphorus 2.3 mg/dL (3.7-7.2) L 03/21/23 19:15 Magnesium 1.4 mg/dL (1.9-2.7) L 03/21/23 19:15 Total Bilirubin 0.5 mg/dl (0.3-1.0) 03/21/23 19:15 Direct Bilirubin 0.10 mg/dL (0.03-0.18) 03/21/23 19:15 Indirect Bilirubin 0.4 mg/dL 03/21/23 19:15 AST 79 U/L (13-39) H 03/21/23 19:15 ALT 37 U/L (7-52) 03/21/23 19:15 Alkaline Phosphatase 112 U/L (34-104) H 03/21/23 19:15 C-Reactive Prot, Quant < 0.5 mg/dL (0.0-0.5) 03/21/23 19:15 Total Protein 6.8 gm/dL (6.4-8.9) 03/21/23 19:15 Albumin 3.5 gm/dL (3.5-5.7) 03/21/23 19:15 Globulin 3.3 gm/dL 03/21/23 19:15 Albumin/Globulin Ratio 1.1 03/21/23 19:15 Urine Color Yellow (Yellow) 03/21/23 19:25 Urine Appearance Cloudy (Clear) A 03/21/23 19:25 Urine pH 5.0 (5.0-9.0) 03/21/23 19:25 Ur Specific Barney 1.019 (1.001-1.030) 03/21/23 19:25 Urine Protein Trace mg/dL (Negative) H 03/21/23 19:25 Urine Glucose (UA) Normal mg/dL (Normal) 03/21/23 19:25 Urine Ketones Trace (Negative) H 03/21/23 19:25 Urine Occult Blood Negative (Negative) 03/21/23 19:25 Urine Nitrite Positive (Negative) H 03/21/23 19:25 Urine Bilirubin Negative (Negative) 03/21/23 19:25 Urine Urobilinogen Normal mg/dL (Normal) 03/21/23 19:25 Ur Leukocyte Esterase 2+ (Negative) H 03/21/23 19:25 Urine RBC 0-1 /HPF (0-4) 03/21/23 19:25 Urine WBC 20-49 /HPF (0-4) H 03/21/23 19:25 Ur Squamous Epith Cells 10-19 /HPF (0-2) H 03/21/23 19:25 Urine Bacteria 4+ (None Seen) H 03/21/23 19:25 Hyaline Casts None seen /LPF (0-1) 03/21/23 19:25 Other Casts None seen /LPF (None Seen) 03/21/23 19:25 Urine HCG, Qual Negative 03/21/23 19:25 CSF Tube Number Tube number: 1 03/21/23 23:50 CSF Tube Number Tube number: 3 03/21/23 23:50 CSF Volume 3.5 mL 03/21/23 23:50 CSF Volume 3.5 mL 03/21/23 23:50 CSF Appearance Clear (Clear) 03/21/23 23:50 CSF Appearance Clear (Clear) 03/21/23 23:50 CSF Color Colorless (Colorless) 03/21/23 23:50 CSF Color Colorless (Colorless) 03/21/23 23:50 CSF Supernatant Color Colorless (Colorless) 03/21/23 23:50 CSF Supernatant Color Colorless (Colorless) 03/21/23 23:50 CSF RBC 0 /uL 03/21/23 23:50 CSF RBC 11 /uL 03/21/23 23:50 CSF Tot Nucleated Cells 0 /uL (0-5) 03/21/23 23:50 CSF Tot Nucleated Cells 0 /uL (0-5) 03/21/23 23:50 CSF Neutrophils N/A 03/21/23 23:50 CSF Neutrophils Youth Associate 03/21/23 23:50 CSF Lymphocytes N/A 03/21/23 23:50 CSF Lymphocytes N/A 03/21/23 23:50 CSF Monocytes N/A 03/21/23 23:50 CSF Monocytes N/A 03/21/23 23:50 CSF Eosinophils N/A 03/21/23 23:50 CSF Eosinophils N/A 03/21/23 23:50 CSF Diff Comment 03/21/23 23:50 CSF Diff Comment 03/21/23 23:50 Microbiology Results Micro: Microbiology - Results from entire visit 03/21/23 23:50 Cerebral Spinal Fluid Gram Stain - Final Assessment & Plan Assessment/Plan (1) Weakness of distal arms and legs: (2) Bilateral leg paresthesia: (3) Paresthesia of upper extremity: (4) Hypophosphatemia: (5) Hypomagnesemia: (6) UTI (urinary tract infection): (7) Transaminitis: Plan Weakness of extremities Paresthesia to BLE and BUE ? Consult neurology ? MRI of the brain in a.m. Transaminitis Hypophosphatemia Hypomagnesemia ? BMP, hepatic panel, magnesium, phosphorus, ammonia in a.m. ? Resume home medications?lactulose, magnesium, potassium ? Magnesium and potassium as needed UTI?culture pending ? Continue cefepime DVT PPx-SCDs, enoxaparin Diet order-regular CODE STATUS-full code IP vs OBS Justification Based on differential dx, clinical care plan, and risk of adverse events, if untreated, in my clinical judgement this patient requires an acute care setting as: INPATIENT because of an expectation of an over 2 midnight stay. Estimated length of stay (# of days): 3 Attending Provider Attestation Attending Physician Attestation: I personally saw this patient on the day of the encounter, reviewed the history,performed the wren elements of the exam, formulated the plan of care and confirmed the DIRECTOR SUPPLIER QUALITY's written note. Documented By: Yoana Rico APRN 03/22/23 0125 Signed By: <Electronically signed by HODAN Rico> 03/22/23 0207 <Electronically signed by Parveen Keller MD> 03/22/23 0730 [facility] Work Phone: Consult note Author Jane Tracey [facility] May 30, 2023 3:16pm Note Date/Time May 30, 2023 2 :16pm [facility] [place] [address] Hem/Onc Consult Note - OP Signed Patient: Rica Stout MR#: [id number] : 1995 Acct:[id number] Age/Sex: 27 / F Type: REG RCR Copies to: DO Danuta Drake, ANDREA Goodman, WATCH BAND ASSEMBLER-IT APPLICATIONS MANAGER-C~ HPI Date/Time of Service: Date of Service: 05/30/2023 Time of Service: 14:14 Referring Provider/PCP: Referring Provider: Keshav Arrington DO PCP: Danuta Araujo, ATHLETIC EQUIPMENT MANAGER-C - History of Present Illness Reason for Consultation: Elevated IgA and IgM of unclear etiology without monoclonal proteins on SPEP or immunofixation. 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 Unstable gait. HPI: 27 year old white female with history of heroin use and substance use quit in 12/2018 and history of alcohol drinking , none since 02/2023 who uses e cigarette,was referred to our hematology and medical oncology clinic by [facility] Cris Goodman NP for our opinion, evaluation for her progressive polyneuropathy and also mildly elevated IgM and IgA on her serum. Problem lists: 1. Elevated IgA and IgM of unclear etiology without monoclonal proteins on SPEP or immunofixation. 2. 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 This neuropathy started in July 2022 withlosing motor and sensory functions o her legs lead to falls or almost falling several times. She was started on Lyrica 75 mg bid which helped a little but sheused it for one month then switched back by her PCP to gabapentin 300 mg. She has been dropping things from her hands and can not sleep due to tingling of hands and feet. Placed on trazodone but it was minimally effective. She also saw [facility] neurologist 05/22/23 but we do not have report from them 3. Unstable gait. Labs done on/about 03/22/23: Folate low 2.3, Vit E alpha 10.9 normal, vitamin EE gamma 1.9 which was normal. PAT choice was negative. Cryoglobulin qualitative was unremarkable. Hepatitis C antibody was nonreactive. Ammonia level was elevated 57. Hemoglobin 10.9. MCV was 107 and 108. TSH was normal 2.53. Hemoglobin A1c was 4.9 with normal. B12 was 417 serum protein electrophoresis was unremarkable without M spike. Serum immunofixation also revealed no monoclonal proteins. IgM was elevated 343and IgA was elevated 485. CRP was less than 0.5. She underwent a lumbar puncture on 03/21/2023 which showed no nucleated cells. Protein was normal. 0 oligoclonal bands. CSF fluid for PCR was unremarkable. MRI of the cervical spine with and without contrast was done at [facility] on 03/27/2023 revealed no cord compression or abnormal postcontrast enhancement. No significant spinal canal narrowing or neural foraminal narrowing. MRI of the lumbar spine with without contrast on 03/22/2023 revealed mild degenerative changes without significant spinal canal or neuroforaminal narrowing. It did reveal broad based disc bulges at T12-L1 and L1-L2. But no masses or abnormal postcontrast enhancement. Abdominal ultrasound at [facility] on 03/22/2023 revealed a prominent liver suspicious for hepatic steatosis versus acute hepatitis. MRI of the brain without and with contrast done on 03/22/2023 was unremarkable. EKG was normal sinus rhythm without abnormalities. Venous duplex ultrasound of the bilateral lower extremities on 03/27/2023 did not reveal any evidence of DVT or thrombophlebitis. Previously on 09/13/2019 CK was 268 and the myoglobin was 58 which were normal. She saw [facility] GI who recommended liver biopsy but then decided to follow observation for now for 6 months. 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 Her Lipids were very high as well. She also has hypopigmented skin spots on both arms since March 2023, saw dermatology at [facility] who performed a skin biopsy but told her what sounds she has vascular insufficiency but no reports were available to us as well. She has not been using folic acid or thiamin since they ran out beginning of April 2023. She is wearing 30 days personnel monitor currently due to history of tachycardia and she has been using magnesium and atenolol for that. She liver in an old house that has molds, mice and not sure if it has lead as well. 14 points systems were reviewed and are negative. [facility] - Medical History Medical History: Medical History (Last Reviewed 03/28/23 @ 09:14 by Chip Lemus DO, RES) Hyperammonemia No pertinent past medical history Transaminitis - Surgical History Surgical History: Surgical History (Last Reviewed 03/28/23 @ 09:14 by Chip Lemus DO, RES) History of section - Family History Family History: Family History (Last Reviewed 03/28/23 @ 09:14 by Chip Lemus DO, RES) Mother Cancer Breast - Social History Smoking Status: Current every day smoker Tobacco Type: e-cigarettes Substance Use Type: None Substance Abuse Comment: daily drinker previously, none in the past week. Home Medications & Allergies Allergies Penicillins Allergy (Verified 05/30/23 14:14) Rash Home Medications magnesium oxide 200 mg PO QAM 03/21/23 [History Confirmed 03/27/23] folic acid 1 mg tablet 2 mg PO DAILY #60 tabs 05/30/23 [Rx] gabapentin 300 mg capsule 300 mg PO BID 05/30/23 [History Confirmed 05/30/23] metoprolol succinate 25 mg tablet,extended release 24 hr 25 mg PO QAM 05/30/23 [History Confirmed 05/30/23] pyridoxine (vitamin B6) 50 mg tablet (Vitamin B-6) 50 mg PO DAILY #30 tabs 05/30/23 [Rx] thiamine HCl (vitamin B1) 100 mg tablet (Vitamin B-1) 100 mg PO DAILY #30 tabs 05/30/23 [Rx] Subjective Data Subjective/ROS - Narrative: General: Patient denied fevers, chills, rigors, weight loss or loss of appetite. Head: Patient denied any headaches or vision changes Thoracic: Patient denied any shortness of breath or cough or hemoptysis Cardiovascular patient denies any chest pain or leg edema. But has tachycardia for which she is on 30 days of cardiac monitoring. GI: Patient denies any nausea vomiting rectal bleed diarrhea : Patient denied gross hematuria. Hematology: Patient denied any bleeding from any source. No easy bruising. Lymphatic: No enlarged LAP anywhere. Skin: Normal skin exam no rashes or suspicious lesions. Neurological patient she admits-intermittent vision changes and headache as well as unstable gait and dizziness. She also has bilateral legs and hands focal weakness and sensory changes. Physical Exam Narrative: HEENT normocephalic atraumatic pupils are equal and round Neck supple without thyromegaly or any cervical lymphadenopathy. Chest clear to auscultation bilaterally without wheezing crackles or rhonchi Heart regular rate and rhythm S1-S2 without murmurs gallop or rub Abdomen soft nontender not distended without hepatosplenomegaly or masses clinically Extremities no edema of the lower extremities Skin without any suspicious rashes Lymphatic system no lymphadenopathy in the cervical area axillary areas or inguinal areas bilaterally Neurological exam patient is cooperative alert and oriented x3. She has bilateral hand and lower extremity from the knees down sensory abnormalities or almost loss of sensation as well as mild motor function symmetric weakness.. - ECOG Performance Status ECOG Score: 1 Results - Impressions See HPI for all the MRI scan of the brain and spine as well as lower extremity venous Doppler and abdominal ultrasound Assessment and Plan (1) Elevated immunoglobulin A Elevated both IgA and IgM unclear etiology. With the presence of polyneuropathy related to rule out multiple myeloma versus amyloidosis versus cryoglobulinemia. Also need to rule out autoimmune process. Therefore we will do the following plan: - Continue bone marrow biopsy for amyloidosis and multiple myeloma. - Obtain the following labs for-myeloma labs, HIV, cryoglobulinemia, hepatitis B panel, lead level to evaluate for lead poisoning, copper level, will check cryoglobulin again and check B12 methylmalonic acid and folate level again. We will check angiotensin-converting enzymes rheumatoid factor recheck her PAT as well as LDH C ANCA and P ANCA due to the vasculitis possibility with the presence of the skin rash on her forearms. We will check for CBC with differential, magnesium and CMP again. -We will refill her folate acid 1 mg to use at 2 pills daily. And I asked her to start thiamine again 100 mg daily and B6 50 mg daily and use those 3 for 3 months minimum. -Obtain the reports from the skin biopsy, the [facility] dermatology note, and the [facility] neurology note. -Return in 4 weeks for the results of the bone marrow biopsy and above blood test. (2) Sensorimotor neuropathy Of unclear etiology could be alcohol related polyneuropathy. Need to rule out vasculitis versus lupus versus cryoglobulinemia versus amyloidosis versus nonsecretory multiple myeloma. Also we will check lead levels copper levels and recheck her B12 and folic acid level. Also check for autoimmune diseases like sarcoidosis and rheumatoid factor and will check also the HIV test. We will also check for hepatitis B which was never checked but hepatitis C viral antibodies were checked and were negative on 03/22/2023. 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 Prior to that she was an regular amount of alcoholic drinker along with heroin user. She has been off heroin since December 2018. She saw GI at the [facility] who recommended transjugular liver biopsy which she might need in the future if all evaluation including bone marrow biopsy and other evaluation from peripheral blood are negative for any etiology of neuropathy. Positive for cirrhosis may be contributing to her polyneuropathy she has cirrhosis. She is known to have elevated ammonia level in the past as per the labs done on 03/22/2023. However her PT and PTT and INR and bilirubin levels were within normal range at that time. (4) Multiple hypopigmented skin lesions on both forearms Unclear etiology but she saw dermatology at the [facility] who performed a skin biopsy and the report of the skin biopsy is not available to us however she was told by dermatology there that she has vascular insufficiency causing the rash. -We will try to obtain the reports from the skin biopsy and dermatology note from [facility] dermatology. - Time with Patient Total Time Spent with Patient (Consult): 60 mins or more Coordination of Care & Counseling Time: Greater than 50% of time spent with patient was for coordination of care (as documented) and [id number] counseling of patient and/or family. Dictated By: Jane Tracey MD DD/ 1414 Signed By: <Electronically signed by Jane Tracey MD> 05/30/23 1516 [facility] Work Phone: Discharge summary Author Brianne Umanzor [facility] March 27, 2023 2:45pm Note Date/Time March 27, 2023 2:38pm [facility] [address] [place] [address] Discharge Summary Signed Patient: Rica Stout MR#: [id number] : 1995 Acct:[id number] Age/Sex: 27 / F Adm Date: 3 Loc: Room: [address] [place] [address]: Brianne Umanzor MD Copies to: MD Danuta Hdz, DIRECTOR SUPPLIER QUALITY~ Providers Date of Discharge: 03/27/23 Discharging Provider: Brianne Umanzor Primary Care Provider: Danuta Araujo Consults: 03/22/23 01:50 Consult to Case Management Routine 03/22/23 01:53 Consult to Dietitian Routine 03/22/23 01:54 Consult to Neurology Routine 03/22/23 11:29 Consult to Occupational Therapy Routine Consult to Physical Therapy Routine 03/26/23 09:31 Consult to Physiatry Routine Discharge Diagnosis (1) Sensorimotor neuropathy: (2) Transaminitis: (3) Weakness of distal arms and legs: (4) Weakness: (5) Hypophosphatemia: (6) Hypomagnesemia: (7) Hx of drug abuse: (8) Weight loss: (9) Bilateral leg paresthesia: (10) Paresthesia of upper extremity: Final Diagnosis Final Discharge Diagnosis: Severe polyneuropathy with sensory loss and paraesthesias of b/l LE Probably due to folate and possible thiamine deficiency with her hx of alcohol abuse Hepatic steatosis Hx of heroin use Transaminitis Hypophosphatemia Hypomagnesemia Acute nonhemorrhagic cystitis-Klebsiella pneumonia Summary Hospital Course Hospital course: Ms. Stout is a 27-year-old female with a history of heroin abuse and alcohol abuse the presents to the emergency room as directed by her neurologist after abnormal EMG. Patient was admitted for further evaluation due to persistent LE paraesthesia. History of heroin abuse several years ago, starting using it because people around her were using it it, was not because of pain medication prescriptions.? She quit that a few years ago and was on Vivitrol for a while.? Remains clean.? History of alcohol abuse from her early to mid 20s up until earlier this year.? Would drink excessively, especially in the evenings, very consistently.? She says a few years ago she was tested for hepatitis C and checked out okay at that time.? More recently she has been found to be hyperammonemic. She has not had any regular alcohol consumption since early thisspring but an isolated drink here and there it sounds like.? She has noxious sensations from her knees down, especially in the feet where can feel like burning.? She had been taking ibuprofen nightly to help her sleep. PCP had wanted to do MRI of her brain but insurance kept denying.? Lumbar puncture was performed in the emergency department.? She admits to a very poor diet.? Eating irregularly, usually not enough, sometimes not eating at all.? She thinks she isprobably nutritionally deficient.? She has noticed pitting edema in her legs.? Both she and the man she is with think that she seems to be doing a bit better today and they attribute that to regular meals and IV fluids and vitamins.? She also made mention that she feels like her fingertips may be experiencing a little bit of what her legs are experiencing. During hospital course, Underwent MRI of brain and lumbar spine with no acute pathology. LP was done with no evidence of GBS. She was found to have low [id number] and given once time dose here. Also found to have folate deficiency. Folic acid and thiamine supplements started during hospital course with slight improvement in her numbness. Neurology was consulted, input appreciated. She completed course of AB for UTI-Klebsiella pneumonia. Patient remained afebrile and hemodynamically stable. She was evaluated by PT/OT who recommended acute inpatient rehab. She was then evaluated by PM&R who agreed to rehab. Patient was accepted to rehab for course of therapy. She remained hemodynamically stable and suitable for discharge at this time. Discussed with patient at bedside, she was counseled on abstinence from alcohol and continue supplements of folic acid and thiamine. She verbalized understanding, in agreement with discharge plan at this time. Condition Condition at Discharge: Stable Time Spent with Patient Time spent providing/coordinating discharge services (# min): 34 Diagnostic Studies Completed and Pending Studies Pending studies at discharge: 03/22/23 14:51 PAT with Reflex Routine Cryoglobulin with Quant Reflex Routine Immunofixation,Serum Routine Protein Electrophoresis, Serum Routine Vitamin E, Alpha & Gamma Tocop Routine Labs on day of discharge: 03/22/23 14:51: Alpha-Tocopherol Vit E 10.9, Gamma-Tocopherol Vit E 1.9 Exam Physical Exam Vital Signs: Temp Pulse Resp BP Pulse Ox O2 Del Method 97.8 F 84 13 132/92 100 Room Air 03/27/23 11:48 03/27/23 11:48 03/27/23 11:48 03/27/23 11:48 03/27/23 11:48 03/27/23 11:48 Narrative: Const General: cooperative HEENT Normal oropharyngeal mucosa without any ulcers or exudates Eyes: Conjunctiva normal Pulmonary Auscultation: clear to auscultation , no crackles, no wheezes Cardiovascular Rate: normal rate Rhythm: regular rhythm Heart Sounds: S1 normal, S2 normal and no murmurs GI Inspection: non-distended Palpation: soft, not firm and nontender. No rigidity or rebound. Deferred Neuro General: alert, awake and oriented x3. decrease sensation in LE L>R below knees mostly on anterior gonzalez. Musculoskeletal: normal range of motion Extrem General: no cyanosis,? no pedal edema Skin: no significant ulcers, no rash noted Psych Appearance: appropriate affect. Grossly normal Discharge Plan Discharge Plan Patient Dis[facility] [facility] [place]: Ambulate as Tolerated Diet: Regular Additional Instructions: REHAB TO MANAGE: PT/OT to eval and treat Monitor VS per protocol Care to be managed by Rehab providers Instructions: Alcohol Use Disorder (DC) Prescriptions: Continued lactulose 10 gram/15 mL solution 10 g PO QAM Patient Comments: TAKE 30 ML BY MOUTH ONCE A DAY FOR 5 DAYS potassium chloride 20 mEq tablet extended release 20 meq PO BID magnesium oxide 200 mg magnesium tablet,chewable 200 mg PO QAM Patient Comments: TAKE 1 TABLET BY MOUTH DAILY FOR 5 DAYS thiamine HCl (vitamin B1) 100 mg tablet 100 mg PO QAM folic acid 1 mg tablet 1 mg PO QAM Follow Up: [facility] [Outside] (Please call to schedule an appointment when discharged from Rehab.) Documented By: Brianne Umanzor MD 03/27/23 14 37 Signed By: <Electronically signed by Brianne Umanzor MD> 03/27/23 1445 [facility] Work Phone: Evaluation + Plan note No data available for this section [facility] Evaluation note* Diagnosis Onset Date Resolution Status Bilateral leg paresthesia ac [place] History of ETOH abuse acute Hx of drug abuse acute Hypomagnesemia acute Hypophosphatemia acute Paresthesia of upper extremity acute Poor appetite acute Transaminitis acute UTI (urinary tract infection) acute Weakness acute Weakness of distal arms and legs acute Weight loss acute [facility] Work Phone: Evaluation note* Diagnosis Onset Date Resolution Status Bilateral leg paresthesia ac [place] History of ETOH abuse acute Hx of drug abuse acute Hypomagnesemia acute Hypophosphatemia acute Paresthesia of upper extremity acute Poor appetite acute Sensorimotor neuropathy acut e Transaminitis acute UTI (urinary tract infection) acute Weakness acute Weakness of distal arms and legs acute Weight loss acute [facility] Work Phone: Evaluation note* Diagnosis Onset Date Resolution Status Bilateral leg paresthesia ac [place] History of ETOH abuse acute Hx of drug abuse acute Hypomagnesemia acute Hypophosphatemia acute Paresthesia of upper extremity acute Poor appetite acute Sensorimotor neuropathy acut e Transaminitis acute UTI (urinary tract infection) acute Weakness acute Weakness of distal arms and legs acute Weight loss acute Bilateral leg paresthesia ac [place] Folate deficiency acute History of ETOH abuse acute Hx of drug abuse acute Hypomagnesemia acute Hypophosphatemia acute Impaired mobility and ADLs a cute Sensorimotor neuropathy acut e Transaminitis acute UTI (urinary tract infection) acute Weakness acute Weakness of distal arms and legs acute [facility] Work Phone: Evaluation note* Diagnosis Burning sensation- Primary Disturbance of skin sensation Disturbance of skin sensation [facility] [place] [facility]* Diagnosis Advanced hepatic fibrosis- Primary [facility] [place] [facility]* Diagnosis Onset Date Resolution Status Bilateral leg paresthesia ac [place] History of ETOH abuse acute Hx of drug abuse acute Hypomagnesemia acute Hypophosphatemia acute Paresthesia of upper extremity acute Poor appetite acute Sensorimotor neuropathy acut e Transaminitis acute UTI (urinary tract infection) acute Weakness acute Weakness of distal arms and legs acute Weight loss acute Bilateral leg paresthesia ac [place] Folate deficiency acute History of ETOH abuse acute Hx of drug abuse acute Hypomagnesemia acute Hypophosphatemia acute Impaired mobility and ADLs a cute Sensorimotor neuropathy acut e Transaminitis acute UTI (urinary tract infection) acute Weakness acute Weakness of distal arms and legs acute Elevated immunoglobulin A ac [place] Multiple hypopigmented skin lesions on both forearms acute 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 acute [facility] Work Phone: Evaluation note* Diagnosis Advanced hepatic fibrosis- [facility] Onset Date Resolution Status Elevated immunoglobulin A ac [place] Multiple hypopigmented skin lesions on both forearms acute 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 acute [facility] Work Phone: Hospital Discharge instructions No data available for this section [facility] Hospital Discharge instructions Additional Instructions -Activity: Ambulate as tolerated. No driving until cleared by physician, may ride in car. -Diet: Regular diet. You will have Outpatient Physical Therapy at Re[facility] at [facility] (Address: [facility] [address] [place], [place]/ ext. [address]). The order for this has already been sent to them, and they will contact you directly to schedule your evaluation date/time. If you do not hear from them by afternoon, please contact the directly at the phone number listed above. You have been given prescriptions for new and/or needed medications. These prescriptions are for a one-time fill only, with no re-fills. For further re-fills going forward, you will need to address with your PCP at your follow up appointment, or by calling your PCP s office prior to the prescriptions running out. NOTE: please call within 24 hours if you need to cancel or change any follow up appointments. Arrive early to all follow up appointments, bring current medication list, photo ID and any insurance card(s) to all future follow ups (listed below). Please remember to wear a mask to all appointments. If you develop any symptoms (cough, fever/chills, shortness of breath, sore throat, nausea/vomiting, etc.) please contact your provider's office to inform them prior to your appointment.[facility] Work Phone: Progress note No data available for this section [facility] Advance Directives No Advanced Directives Records FoundDocuments on File Type Date Recorded Patient Section Weaver Expl anation ACP-Advance Directive ACP-Power of Machine Operator Advance Directive Response Recorded Date/ Time Advance Directives No March 21, 2023 7:37pm Advance Directive Response Recorded Date/ Time Advance Directives No March 21, 2023 6:37pm Summary Purpose Family History No Family History Records Found Relationship Condition Age at Onset Recorded Date/T audelia Not Specified Malignant neoplasm Unknown Chief Complaint and Reason for Visit Chief Complaint Bilat leg pain Reason for Visit Bilateral leg parest hesia History of ETOH abuse Hx of drug abuse Hypomagnesemia Hypophosphatemia Paresthesia of upper extremity Poor appetite Transaminitis UTI (urinary tract infection) Weakness Weakness of distal arms and legs Weight loss Chief Complaint Bilat leg pain polyneuropathy/Sensorimotor neuropathy.. Reason for Visit Bilateral leg parest hesia History of ETOH abuse Hx of drug abuse Hypomagnesemia Hypophosphatemia Paresthesia of upper extremity Poor appetite Sensorimotor neuropathy Transaminitis UTI (urinary tract infection) Weakness Weakness of distal arms and legs Weight loss Chief Complaint Bilat leg pain polyneuropathy/Sensorimotor neuropathy.. Reason for Visit Bilateral leg parest hesia History of ETOH abuse Hx of drug abuse Hypomagnesemia Hypophosphatemia Paresthesia of upper extremity Poor appetite Sensorimotor neuropathy Transaminitis UTI (urinary tract infection) Weakness Weakness of distal arms and legs Weight loss Bilateral leg paresthesia Folate deficiency History of ETOH abuse Hx of drug abuse Hypomagnesemia Hypophosphatemia Impaired mobility and ADLs Sensorimotor neuropathy Transaminitis UTI (urinary tract infection) Weakness Weakness of distal arms and legs Chief Complaint Bilat leg pain polyneuropathy/Sensorimotor neuropathy.. high total serum IGM Reason for Visit Bilateral leg parest hesia History of ETOH abuse Hx of drug abuse Hypomagnesemia Hypophosphatemia Paresthesia of upper extremity Poor appetite Sensorimotor neuropathy Transaminitis UTI (urinary tract infection) Weakness Weakness of distal arms and legs Weight loss Bilateral leg paresthesia Folate deficiency History of ETOH abuse Hx of drug abuse Hypomagnesemia Hypophosphatemia Impaired mobility and ADLs Sensorimotor neuropathy Transaminitis UTI (urinary tract infection) Weakness Weakness of distal arms and legs Elevated immunoglobulin A Multiple hypopigmented skin lesions on both forearms Sensorimotor neuropathy 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 Chief Complaint Bilat leg pain polyneuropathy/Sensorimotor neuropathy.. high total serum IGM r20.2 Reason for Visit Bilateral leg parest hesia History of ETOH abuse Hx of drug abuse Hypomagnesemia Hypophosphatemia Paresthesia of upper extremity Poor appetite Sensorimotor neuropathy Transaminitis UTI (urinary tract infection) Weakness Weakness of distal arms and legs Weight loss Bilateral leg paresthesia Folate deficiency History of ETOH abuse Hx of drug abuse Hypomagnesemia Hypophosphatemia Impaired mobility and ADLs Sensorimotor neuropathy Transaminitis UTI (urinary tract infection) Weakness Weakness of distal arms and legs Elevated immunoglobulin A Multiple hypopigmented skin lesions on both forearms Sensorimotor neuropathy 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 Chief Complaint r20.2 high total serum IGM Reason for Visit Elevated immunoglobu franklin A Multiple hypopigmented skin lesions on both forearms Sensorimotor neuropathy 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 Additional Source Comments INFORMATION SOURCE (unrecogn ized section and content) DATE CREATED AUTHOR 11/12/2020 [facility] DATE CREATED AUTHOR AUTHOR'S ORGANIZ ATION 10/27/2022 [facility] DATE CREATED AUTHOR AUTHOR'S ORGANIZ ATION 02/01/2023 [facility] DATE CREATED AUTHOR AUTHOR'S ORGANIZ ATION 05/13/2023 [facility] DATE CREATED AUTHOR AUTHOR'S ORGANIZ ATION 07/08/2023 [facility] DATE CREATED AUTHOR AUTHOR'S ORGANIZ ATION 07/17/2023 [facility] DATE CREATED AUTHOR AUTHOR'S ORGANIZ ATION 07/20/2023 [facility] DATE CREATED AUTHOR AUTHOR'S ORGANIZ ATION 07/24/2023 [facility] Care Teams (unrecognized sec tion and content) Team Status: Active Member Role Status Dates Danuta Araujo , ATHLETIC EQUIPMENT MANAGER-C Primary Care Provider Active Team Status: Active Member Role Status Dates Danuta Araujo ATHLETIC EQUIPMENT MANAGER-C Primary Care Provider Active Jane Tracey MD Attending Provider Active Keshav Arrington , DO Referring Provider Active Team Status: Inactive Member Role Status Dates Danuta Araujo ATHLETIC EQUIPMENT MANAGER-C Primary Care Provider Active Jane Traecy MD Attending Provider Active Team Status: Inactive Member Role Status Dates Danuta Araujo , ATHLETIC EQUIPMENT MANAGER-C Primary Care Provider Active Bernard Peterson , DO Emergency Provider Active Parveen Keller MD Admit Provider Active Chele Gamino , Other Provider Active Brianne Umanzor MD Attending Provider Active Marc Giron MD Other Provider Active Team Status: Active Member Role Status Dates Danuta Araujo , ATHLETIC EQUIPMENT MANAGER-C Primary Care Provider Active Marc Giron MD Admit Provider, Attending Provider A ctive Team Status: Active Member Role Status Dates Danuta Araujo , ATHLETIC EQUIPMENT MANAGER-C Primary Care Provider Active Bernard Peterson , Emergency Provider Active Parveen Keller MD Admit Provider, Attending Provide r Active Team Status: Inactive Member Role Status Dates Danuta Araujo , ATHLETIC EQUIPMENT MANAGER-C Primary Care Provider Active Marc Giron MD Admit Provider, Attending Provider A ctive Susanna Linn Other Provider Active Loli Cheema , DO Other Provider Active David Chowdary MD Other Provider Active Keshav Arrington , DO Other Provider Active Chetna Schwarz ANP-BC Other Provider Active Chele Gamino , DO Other Provider Active Mandy Coker APRN Other Provider Active Jes Akhtar , ATHLETIC EQUIPMENT MANAGER-C Other Provider Active Cris Katerin Goodman , WATCH BAND ASSEMBLER-IT APPLICATIONS MANAGER-C Other Provider Active Snuff Grinder And Screener Relationship Specialty Start Date End Date Irvin Cervantes MD [address] [place] [facility] [place] [address] Referring Family Medicine 03/15/23 Snuff Grinder And Screener Relationship Specialty Start Date End Date Irvin Cervantes MD [address] [place] [facility] [place] [address] Referring Family Medicine 03/15/23 Cris Goodman [address] [address] Referring 05/02/23 Snuff Grinder And Screener Relationship Specialty Start Date End Date Irvin Cervantes MD [address] [place] [facility] [address] Referring Family Medicine 03/15/23 Cris Goodman [address] [address] Referring 05/02/23 Source Comments (unrecognize d section and content) In the event this informatio n is protected by the Federal Confidentiality of Alcohol and Drug Abuse Patient Records regulations: The Federal rules restrict any use of the information to criminally investigate or prosecute any alcohol or drug abuse patient.[facility] the event this information is protected by the Federal Confidentiality of Alcohol and Drug Abuse Patient Records regulations: The Federal rules restrict any use of the information to criminally investigate or prosecute any alcohol or drug abuse patient.[facility] the event this information is protected by the Federal Confidentiality of Alcohol and Drug Abuse Patient Records regulations: The Federal rules restrict any use of the information to criminally investigate or prosecute any alcohol or drug abuse patient.[facility] the event this information is protected by the Federal Confidentiality of Alcohol and Drug Abuse Patient Records regulations: The Federal rules restrict any use of the information to criminally investigate or prosecute any alcohol or drug abuse patient.[facility] Reason for Visit (unrecogniz ed section and content) Reason Comments Appointment Reason Comments Consult My hands and my feet feel like rocks Stiff Especially feetFeels like standing on hot coals Like feet are on fire Sometimes shooting pains Specialty Diagnoses / Procedures Referred By Chris limon Referred To Contact Neurology Diagnoses Neuropathy Procedures CONSULT TO NEUROLOGY OFFICE/OUTPATIENT [facility] 60-74 MINUTES Jeannie Jarvis, WATCH BAND ASSEMBLER.DIRECTOR SUPPLIER QUALITY [address] [place] [address] Referral ID Status Reason Start Date Expiration Date V isits Requested Visits Authorized [id number] Closed PCP Requested Referral 04/12/2023 04/11/2024 1 1 Reason Comments advanced hepatic fibrosis Goals (unrecognized section and content) Goals may be documented in a n alternate section FOR RECORDS PERTAINING TO PATIENTS WHO ARE OR HAVE BEEN ENROLLED IN A CHEMICAL DEPENDENCY/SUBSTANCEABUSE PROGRAM, SOME INFORMATION MAY BE OMITTED. This clinical summary was aggregated from multiple sources. Caution should be exercised in using it in the provision of clinical care. This summary normalizes information from multiple sources, and as a consequence, information in this document may materially change the coding, format and clinical context of patient data. In addition, data may be omitted in some cases. CLINICAL DECISIONS SHOULD BE BASED ON THE PRIMARY CLINICAL RECORDS. [facility] provides no warranty or guarantee of the accuracy or completeness of information in this document.
[2023-08-02 16:09] LABS: Albumin 3.8 g/dL (2.9-4.4); Alpha-1-Globulin 0.3 g/dL (0.0-0.4); Alpha-2-Globulin 0.8 g/dL (0.4-1.0); Gamma Globulin 0.9 g/dL (0.4-1.8); Immunoglobulin A, Qn, Serum 404 mg/dL (87-352); Immunoglobulin G, Qn, Serum 938 mg/dL (586-1602); Immunoglobulin M, Qn, Serum 246 mg/dL (26-217); Protein, Total 7.2 g/dL (6.0-8.5)
== END 2023-08-01 09:36 | disposition home or self-care (01) ==
LOC: LAB 09:37
PROVIDERS: PCP Nurse Practitioner Family
DX: R20.8 Other disturbances of skin sensation (principal); R20.9 Unspecified disturbances of skin sensation
CPT/HCPCS: 36415; 82607; 82784; 84155; 84165; 86334

== ENCOUNTER 2023-08-20 09:28 | Outpatient (REF) | payer OTHER, SELFPAY ==
--- OUTSIDE RECORDS SUMMARY | 2023-08-20 09:33 | XMS_ITS | CCD ---
Author Name Unknown Address [address] [place] [address] Organization [facility] Care Team Providers Care Java Developer Analyst Name Role Phone Haven Niño Primary Care Provider [phone] KALIA BENDER Referring Unavailable RENAY, HAVEN Vasyl Primary Care Unavailable KALIA BENDER Referring Unavailable RENAY, HAVEN R Primary Care Unavailable MASSIMO BRIGHT Referring Unavailable RENAY, HAVEN R Primary Care Unavailable VAN, DANUTA Admitting Unavailable VAN, DANUTA Primary Care Unavailable DANUTA ARAUJO Attending Unavailable PAY ., DR MENDEZ Admitting Unavailable VAN, DANUTA Primary Care Unavailable PAY ., DR MENDEZ Attending Unavailable SHIV .PAUL Consulting Unavailyvonne e VAN, DANUTA Primary Care Unavailable KATINA CLIFTON Admitting Unavailable DIONNE, DR DAVID Fallon Consulting Unavailable GRACIA Ortiz, KATINA Attending Unavailable SHIV ., PAUL SYED Consulting Unavailyvonne FAGAN .KATINA Consulting Unavailable MILLIE NORMAN Consulting Unavailable VAN, DANUTA Admitting Unavailable VAN, DANUTA Primary Care Unavailable Karyna Langford Consulting Unavailable DANUTA ARAUJO Attending Unavailable DIONNE, DR DAVID Fallon Consulting [...] DANUTA Consulting Unavailable DAVE COHEN Admitting Unavailable DAVE COHEN Consulting Unavailable DAVE COHEN Attending Unavailable VAN, DANUTA Primary Care Unavailable GODFREY, KLARISSA Admitting Unavailable GODFREY, KLARISSA Consulting Unavailable GODFREY, KLARISSA Attending Unavailable VAN, DANUTA Primary Care Unavailable VAN, DANUTA Admitting Unavailable VAN, DANUTA Primary Care Unavailable Karyna Langford Consulting Unavailable VAN, DANUTA Attending Unavailable VAN, DANUTA Consulting Unavailable VAN, DANUTA Primary Care Unavailable SUDHA ., DR DUCKWORTH Attending Unavailable HAY ., DR DUCKWORTH Admitting Unavailable HAY ., DR DUCKWORTH Consulting Unavailable Van, DEBORAH-C Danuta Diana Primary Care Provider DO Bernard Peterson Emergency Provider MD Parveen Riley Admit Provider MD Parveen Keller Attending Provider HAVEN NIÑO CNP Primary Care Physician [phone] DO Chele Gamino Other Provider MD Brianne Umanzor Attending Provider MD Marc Giron Other Provider MD Marc Giron Admit Provider MD Marc Giron Attending Provider Susanna Linn Other Provider Unavailable DO Loli Cheema Other Provider MD David Chowdary Other Provider DO Keshav Arrington M Other Provider Chong, ANP- Chetna Other Provider HODAN Coker Other Provider DRAKE Akhtar Other Provider HODAN Goodman-OTHER SALES SUPPORT WORKER-C Cris Conklin Other Provider Helen GRECO, Irvin Baker Unavailable Neelima GRECO, Zane Bal Attending Unavailable Cris Goodman Unavailable DEBORAH Araujo-Mikel Ortiz Primary Care Provider [phone] DO Bernard Peterson Emergency Provider MD Parveen Riley Admit Provider [phone] DO Chele Gamino Other Provider MD Brianne Umanzor Attending Provider MD Marc Giron Other Provider MD Marc Giron Admit Provider MD Marc Giron Attending Provider [phone] Susanna Linn Other Provider Unavailable DO Loil Cheema Other Provider MD David Chowdary Other Provider DO Keshav Arrington Other Provider RAYSHAWN Schwarz-BC Chetna Other Provider HODAN Coker Other Provider DEBORAH Akhtar-C Jes Olguin Other Provider HODAN Goodman-OTHER SALES SUPPORT WORKER-C Cris Conklin Other Provider MD Jane Tracey Attending Provider [phone] MD Jane Tracey Attending Provider DRAKE Araujo Primary Care Provider MD Jane Tracey Attending Provider DO Keshav Arrington Referring Provider Danuta Araujo Primary Care Unavailable Al-Marrawi, Mhd Yaser Admitting Unavailabl e Al-Jane Condonser Attending Unavailabl e Keshav Arrington Referring Unavailab le Danuta Araujo Primary Care Unavailable Al-Marrawi, Mhd Yaser Admitting Unavailabl e Al-Mardarleen Mhd Yaser Attending Unavailabl Parveen Erickson Admitting Unavailable Brianne Umanzor Attending Unavailable Chele [...] GRAY Attending Unavailable MARTHA GRAY Attending Unavailable Millie Mcdonald Attending Unavailable RENAY ANDREA, HAVEN Primary Care Unavailable RENAY SYSTEM SUPPORT SPECIALIST, HAVEN Primary Care Unavailable Millie Mcdonald Attending Unavailable BHAVESH LOPEZ Attending Unavailable DANUTA ARAUJO Referring Unavailable NICOLE BLANCO Primary Care Unavailable RODDENBERRY, JEANNIE Referring Unavailable RODDENBERRY, JEANNIE Referring Unavailable RODDENBERRY, JEANNIE Attending Unavailable JOEL NOE Attending Unavailable ARSH OROZCO Attending Unavailable RODDENBERRY, JEANNIE Referring Unavailable RODDENBERRY, JEANNIE Attending Unavailable Allergies Allergy Classification Reported Allergen(s) Allergy Type Date of Onset Reaction(s) Facility (10 sources) Penicillins; Translations: [PENICILLINS] Drug allergy (disorder) 4 Rash [facility] Repository (2 sources) Penicillin; Translations: [penicillin] Drug Allergy Eruption of skin (disorder) [facility] (4 sources) Penicillins Drug Allergy 3 Rash [facility] (1 source) Penicillins Drug allergy (disorder) 3 [facility] Repository Medications Current Medications Medication Drug Class(es) [...] on above: Take 1 tablet by jose three times a day. lactulose 667 mg/ml [...] Discontinued 1 APPLIC TOPICAL Three times daily 0 April 01, 2023 11:00pm May 30, 2023 [...] OF RIGHT BREAST] Onset: 10-01-2022 Episodic Other circulatory disease (1 source) Other disorder of circulatory system; Translations: [Other disorder of circulatory system] Onset: 08-01-2023 Episodic Other connective tissue disease (6 sources) Weakness of distal arms and legs; Translations: [Other symptoms and signs involving the musculoskeletal system] 03-21-2023 Episodic Other connective tissue disease (1 source) Leg swelling symptom Onset: 08-01-2023 Episodic Other hematologic conditions (1 source) Other specified diseases of blood and blood-forming organs; Translations: [OTH SPEC DZ BLOOD AND BLOOD-FORM ORG] Onset: [...] MALIG NEOPLASM OTH ORGN/SYS] Onset: 09-24-2022 Episodic Residual codes; unclassified (1 source) Edema Onset: 08-01-2023 Episodic Substance-related disorders (16 sources) Nicotine dependence, [...] object(s), not elsewhere classified, initial encounter; Translations: [CNTC OT SHRP OB NOT ELSW CLASS INI] Onset: [...] Test Name Value Interpretation Reference Range Facility [facility] 08-13-2023 [facility] Telephone (HEIDY) -------- RICA STOUT ([id number]) 1995 F Date Time Provider Department 08/13/23 HASMUKH, JOEL RHEUAV During your visit today, we recorded the following information about you: Joel Noe MD 08/13/2023 7:40 AM Signed For chart: 08/01/[address]Christopher Arrington, DO 05/14/23 EMG UE confirmed polyneuropathy vs EMG of LE 03/21/23 this is axon loss and severe electrically A/P polyneuropathy highest suspicion for cause is folate deficiency, history of alcohol abuse and or liver dysfunction. The patient has length dependent neuropathy with paresthesias and decreased sensation in the BLE/fingertips, decreased proprioception, imbalance with EMG confirming the polyneuropathy. Lyrica helpful, trial increase to 75mg 3times a day, start PT/OT, avoid alcohol, start fall precautions. No response with gabapentin. Continue folic acid 1mg daily, thiamine 100mg daily, see hem/once for high IGM 343, and IGA 485 Allergies As of Date: 08/13/2023 Noted Allergy Reaction PENICILLINS 01/28/2023 2 - Rash Date Reviewed: 08/08/2023 Reviewed by: Joel Noe MD - Fully Assessed Reason for Visit: Results [95] Prescriptions as of 08/13/2023 - ondansetron orally disintegrating (ZOFRAN ODT) 4 mg disintegrating tablet DISSOLVE 1 TABLET ON THE TONGUE EVERY 6 HOURS NEEDED FOR NAUSEA/VOMITING - VITAMIN B-6 50 mg tablet Take 1 tablet by mouth every afternoon. - sertraline (ZOLOFT) 50 mg tablet - etonogestrel (NEXPLANON) subdermal implant 68 mg Nexplanon - gabapentin (NEURONTIN) 300 mg capsule Take [...] mouth every morning. Problem List As Of Date 08/13/2023 Noted Resolved Long-term use of high-risk medication [Z79.899] 08/08/2023 Weakness of both hands [R29.898] 08/08/2023 Elevated LFTs [R79.89] 08/08/2023 Chronic pain of both feet [M79.671, G89.29, M79*08/08/2023 Numbness and tingling of both feet [R20.0, R20.*08/08/2023 Numbness and tingling in both hands [R20.0, R20*08/08/2023 Hair loss [L65.9] 08/08/2023 Rash and nonspecific skin eruption [R21] 08/08/2023 PAT positive [R76.8] 08/08/2023 Encounter Status:Closed by JOEL NOE on 08/13/23 [facility] CNOVon 08-08-2023 CNOV Office Visit (PATRICK ) -------- RICA STOUT ([id number]) 1995 F Date Time Provider Department 08/08/23 11:00 AM JOEL NOE During your visit today, we recorded the following information about you: Pulse Blood pressure Weight Height 84/minute 114/71 66 kg 1.626 m Joel Noe MD 08/08/2023 11:57 AM Signed NEW CONSULT:RHEUMATOLOGY SERVICE SERVICE DATE: 08/08/2023 SERVICE TIME: 11:06 AM REASON FOR CONSULT: rash/+PAT REQUESTING PHYSICIAN: Danuta Araujo CNP,Shey Goodman CNP PRIMARY CARE PHYSICIAN: Danuta Araujo CNP, Patient's Name: Rica Stout [address] [place] [address] Accompanied by: mother This consult was requested for my medical opinion regarding the rheumatologic evaluation of the patient's rash/+PAT problems, and my final recommendations will be communicated to the requesting health care provider by way of the shared medical record for internal providers or letter via the [employer] for external providers. August 08, 2023 SUBJECTIVE Ms. Stout is a 27 year old female who presents for rash/+PAT eval. 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 Started lyrica helped but switched to gabapentin by primary care provider Dropping items Tingling of hands/feet Mild to no response with trazodone. Unstable gait 07/2022 legs gave out, completely numb, saw neurology fingertips turn white/garcia when cold 2022, feet turn red 02/2023 LP normal. 03/2023 high IGM 343, IGA 485, ammonia 57;low folate 2.3;normal tsh 2.53, hgba1c 4.9, vitamin b12-417, crp <0.5;negative spep, upep, m protein, hepatitis panel C AB, cryoglobulin; 03/2023 MRI neck spine stable, MRI lumbar degenerative joint disease , broad based disc bulges T12-L1, L1-2 03/2023 US showed hepatic steatosis Saw GI recommended liver biopsy, alcohol related liver disease 03/2023 hypopigmented spots on both arms and legs (worse when legs dangling), rash on arms/feet/hands red always there, 04/2023 saw hannah Avitia, SYSTEM SUPPORT SPECIALIST skin punch biopsy LUE showed vascular insufficiency 07/09/23 saw cardiology and Manager Poker for palpitations/tachycardia (since 2022) Wore court recording monitor Pain worse in feet, numb fingers, worse in AM or night Reports pain 12/29 No falls/fx/trauma/illness/ oral sores/rash/hairloss/jaw pain/dysphagia/epistaxis /hemoptysis. No adverse effects with meds. No other complaints. Patient denies fever, chills, cp, dyspnea, nausea, vomiting, night sweats, scalp tenderness, visual changes, alonzo, bowel/bladder changes, weight changes or other complaints. COMPLETE REVIEW OF SYSTEMS: RHEUM. ROS: Joint pain: yes feet Joint swelling: yes legs, ankles, feet pitting edema 11/2022-03/2023 Am stiffness: yes Low back pain: no Dactylitis: no H/o precedent/frequent infection(s): no Enthesopathy/[place] [facility]'s/h eel/plantar tenderness: no Skin thickening, psoriasis, photosensitivity, purpura: as above Nail changes: no Alpecia, patchy: super thin 2022 Eye inflammation: no SICCA: no Oral/nasal/genital ulcers: no GI problems-diarrhea/bleedi ng/IBD/Gluten intolerence/Dysphagia: no Raynaud's phenomenon/digital ulcers: fingertips turn white/garcia when cold 2022, feet turn red Organ inv-Serositis: no Lung disease/ILD: no Myopathy/proximal muscle weakness: no Abnormal Urine or urethritis: no Renal/liver disease: high liver function tests for a few years CORPORATE OPERATIONS COMPLIANCE MANAGER/PNS/sz/cva/cancer disease: no HEME-Cytopenias/LAD/Clot s: no Fevers: no Fatigue: yes, sleeps 6 hrs/night PMR/GCA ROS: negative Patient denies history of Gout or Pseudogout, Psoriasis, Rheumatic Fever, GERD, PUD, Hepatitis , Kidney Disease, Kidney Stones, DM, HTN, CAD, PAD, Sinusitis, Asthma, TB infection or exposure, Pneumonias, Anemia, Seizures, Stroke, MS, Clots, Cancer, Thyroid Disease, Transfusions, Tattoos , and Alcohol dependency. Other ROS:The remainder of the review of systems is negative. All other reviewed and negative other than HPI. 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 Normal [facility] NURSING PROGon 07-23-2023 NURSING PROG HNO ID: [id number] Author: Dipti Enamorado, RN Service: Nursing Author Type: Registered Nurse Type: Nursing Progress Note Filed: 07/23/2023 3:49 PM Note Text: Pre-procedure instructions: Contacted Rica and confirmed appt. for transjugular liver biopsy scheduled on Saturday, 07/30, at [facility]. I will wait while you get [...] be drawn prior to 07/30 at any [facility] Lab. If the labs are drawn same day as procedure, please report to J1-4 or S-15, 3 hours prior to procedure start time (11:30 AM) to ensure they are resulted by your scheduled start time. Arrival: Please bring your Photo ID and Insurance Card. A general consent may need to be signed. Arrival at 1:00 PM to desk B-1 ([facility]) and check in for your procedure. Manager Hospice/Transportation: How will you be arriving for your procedure? Private car. If you will be arriving at [facility] via ambulance or public transportation, please call to discuss. You will need a responsible adult to accompany you to and from the procedure. Your wood pile driver operator is required to stay with you until you are taken into the Procedure room. If you develop any of the following symptoms before your procedure, please call [phone]. Chills, joint pain, rash, sore throat, cough, [...] discuss. Written instructions provided to patient via [employer] If you have any questions please call [phone] ___ Normal [facility] Provider Letteron 07-18-2023 Provider Letter (Inserted Image. Mercedes ble to display) July 18, 2023 RICA STOUT [address] [place] [address] : 1995 Dear Rica, During review of your medical record we noticed that a follow up appointment was not scheduled. We have attempted to reach you to schedule a appointment with [facility] [employer] [facility]. Please call our office today to schedule this appointment. Sincerely, [facility] [employer] [facility] [phone] Normal [facility] Office Visiton 07-09-2023 Follow-up visit [id number] Louis Stout 1995 F Date Provider Department Center 07/09/2023 NETTIE MARTE SANT[facility] Family History Problem Relation Age of Onset Coronary artery disease Maternal Grandmother Peripheral vascular disease Maternal Grandmother Hypertension Paternal Grandmother Atrial fibrillation Paternal Grandmother Family Status - Relation Status Age at Maternal Grandmother Paternal Grandmother Level of Service:[address] [place] OFFICE/OUTPATIENT NEW MODERATE MDM 45 MINUTES Normal [facility] Cryoglobulin with Quant Refl exon 07-03-2023 Cryoglobulin, Ql, Serum Normal None detected [facility] Comment on above: Result Comment: None Detected at 72 hours This test was developed and its performance characteristics determined by [employer]. It has not been cleared or approved by the Food and Drug Administration. Performed at: [address] [id number] Defensive Driving Instructor: Breezy Jones PhD, Phone: [phone] PERFORMED BY: [place] [address] PATHOLOGIST CHIROPRACTIC TEACHER RUIZ CLIFTON M.D. Performed By: #### C BC, CMP, MG, LDH, [id number] #### [address] #### LEAD,ADULT, KAPPA, SPE, ANCA PROF, SANDRA, CRYOGLOB, HBSAG, CU, HIV SCREEN, RONALD SERUM, PAT, METH, HBSAB, RA, HCBIGM #### [facility] , Immunofixation,Serumon 07-03 Immunofixation, Serum Normal . [facility] Comment on above: Result Comment: No m onoclonality detected. Performed By: #### C BC, CMP, MG, LDH, [id number] #### [place] [address] [place] #### LEAD,ADULT, KAPPA, SPE, ANCA PROF, SANDRA, CRYOGLOB, HBSAG, CU, HIV SCREEN, RONALD SERUM, PAT, METH, HBSAB, RA, HCBIGM #### [facility] , Immunoglobulin A, Serum 473 mg/dL High 87-352 [facility] Comment on above: Performed By: #### C BC, CMP, MG, LDH, [id number] #### [place] [address] [place] #### LEAD,ADULT, KAPPA, SPE, ANCA PROF, SANDRA, CRYOGLOB, HBSAG, CU, HIV SCREEN, RONALD SERUM, PAT, METH, HBSAB, RA, HCBIGM #### [facility] , Immunoglobulin G 1101 mg/dL Normal 586-1602 [facility] Comment on above: Performed By: #### C BC, CMP, MG, LDH, [id number] #### [place] [address] [place] #### LEAD,ADULT, KAPPA, SPE, ANCA PROF, SANDRA, CRYOGLOB, HBSAG, CU, HIV SCREEN, RONALD SERUM, PAT, METH, HBSAB, RA, HCBIGM #### [facility] , Immunoglobulin M, Serum 315 mg/dL High 26-217 [facility] Comment on above: Result Comment: Perf ormed at: - [address] [id number] Defensive Driving Instructor: Breezy Jones PhD, Phone: [phone] Performed By: #### C BC, CMP, MG, LDH, [id number] #### [address] #### LEAD,ADULT, KAPPA, SPE, ANCA PROF, SANDRA, CRYOGLOB, HBSAG, CU, HIV SCREEN, RONALD SERUM, PAT, METH, HBSAB, RA, HCBIGM #### [facility] , Zinc, Whole Bloodon 07-03-20 23 Zinc, Whole Blood 606 ug/dL Normal 440-860 [facility] Comment on above: Result Comment: This test was developed and its performance characteristics determined by [employer]. It has not been cleared or approved by the Food and Drug Administration. Performed at: - [address] [id number] Defensive Driving Instructor: Lisa Ramos MD, Phone: [phone] Performed By: #### C BC, CMP, MG, LDH, [id number] #### [address] #### LEAD,ADULT, KAPPA, SPE, ANCA PROF, SANDRA, CRYOGLOB, HBSAG, CU, HIV SCREEN, RONALD SERUM, PAT, METH, HBSAB, RA, HCBIGM #### [facility] , Activated partial thrombopla stin time (aPTT) in platelet poor plasma by coagulation aOrdered By: Jane Tracey on 06-12-2023 aPTT Coag (PPP) [Time] 28.5 s 25.1-36.5 [facility] Comment on above: A hematocrit value g reater than 55% may lead to inaccurate results in coagulation testing. Patients having hematocrit values >55% require a special collection tube for coagulation studies. Please contact the laboratory at [phone] guided bone marrow bx/asp iron 06-12-2023 CT guided bone marrow bx/aspir [facility] Main [address] [address] [address] Scan Report Signed Patient: Rica Stout MR#: [id number] : 1995 Acct:[id number] Age/Sex: 27 / F ADM Date: 06/12/23 Loc: CT Room: Type: [facility] Attending Dr: Jane Tracey MD Copies to: Jane Tracey MD Ordering Provider: Jane Tracey MD Date of Service: 06/12/23 CT/CT guided needle placement: bone marrow biopsy ([id number]) CT/CT guided bone marrow bx/aspir: . CT [...] biopsy. Impression dictated by: Marc Barahona Jr., D.OAnegl06/12/2023 1:18 PM Dictation Location: [place] [address] Transcribed By: [facility] 06/12/23 1318 Dictated By: Marc Barahona Jr, DO 06/12/23 1318 Signed By: 06/12/23 1318 Normal [facility] Coagulation Profileon 2022 aPTT Coag (Bld) [Time] 28.5 s Normal 25.1-36.5 [facility] Comment on above: Order Comment: NEED FOR CT GUIDED BIOPSY Result Comment: A he matocrit value greater than 55% may lead to inaccurate results in coagulation testing. Patients having hematocrit values >55% require a special collection tube for coagulation studies. Please contact the laboratory at [phone] for redraw instructions. PERFORMED BY: [place] [address] PATHOLOGIST CHIROPRACTIC TEACHER RUIZ CLIFTON M.D. Performed By: #### P P, PLT #### [facility] [address] [place] [address] INR Coag (PPP) [Relative time] 1.1 {INR} Normal [facility] Comment on above: Order Comment: NEED FOR [...] By: #### P P, PLT #### [facility] [address] [place] [address] PT Coag (PPP) [Time] 13.0 s High 9.0-12.9 [facility] Comment on above: Order Comment: NEED FOR CT GUIDED BIOPSY Result Comment: A he matocrit value greater than 55% may lead to inaccurate results in coagulation testing. Patients having hematocrit values >55% require a special collection tube for coagulation studies. Please contact the laboratory at [phone] for redraw instructions. Performed By: #### P P, PLT #### [facility] [address] [place] [address] [place] INR in Platelet poor plasma by Coagulation assayOrdered By: Jane Tracey on 06-12-2023 INR Coag (PPP) [Relative time] 1.1 {INR} [facility] Comment on above: INR Therapeutic Rang e [...] [id number] Received: 06/12/23 Status: VIKASH Hess Num: [id number] Spec Type: Bone Marro Subm Dr: Marc [...] Account Attending Physician Rica Stout 27/F CT [id number] Jnae Tracey MD SPEC NUM: [id number] RECD: 06/12/23 STATUS: VIKASH HESS NUM: [id number] LAURIE: 06/12/23- DR: Marc Barahona Jr, DO ENTERED: 06/12/[address] [facility] [address]: Jane Tracey MD SPEC TYPE: Bone [...] is No diagnostic immunophenotypic abnormalities detected Specimen: [id number] Received: 06/12/23 Status: VIKASH Hess Num: [id number] Spec Type: Bone Marro Subm Dr: Marc Barahona, Jr, DO Tissues: A Bone Marrow Aspirate (Clot) (RT ILIAC) B Bone Marrow Biopsy/Core (RT ILIAC) Procedures: Reticulum I, Peripheral Smr/2, Iron/3, HE/4, Gross/Micro L4/2, Bm Smear/2, CD138/2, CD20, CD3, CD31, CD34, CD68, E CADHERIN, Decalcification, PAS - Hemat, Bone Marrow TP, GIEMSA STN/5, SMEARS Patient: Rica Stout [id number] (Continued) Specimen: [id number] Received: 06/12/23 (Continued) Pathological Diagnosis (Continued) Signed (signature on file) Dylan Call MD 06/22/23 0930 Specimen: [id number] Received: 06/12/23 Status: VIKASH Hess Num: [id number] Spec Type: Bone Marro Subm Dr: Marc Barahona, , DO Tissues: A Bone Marrow Aspirate (Clot) (RT ILIAC) B Bone Marrow Biopsy/Core (RT ILIAC) Procedures: Reticulum I, Peripheral Smr/2, Iron/3, HE/4, Gross/Micro L4/2, Bm Smear/2, CD138/2, CD20, CD3, CD31, CD34, CD68, E CADHERIN, Decalcification, PAS - Hemat, Bone Marrow TP, GIEMSA STN/5, SMEARS Patient: Rica Stout [id number] (Continued) Specimen: [id number] Received: 06/12/23 (Continued) Pathological Diagnosis (Continued) - [...] tiny cyt (more content not included)... Normal [facility] Platelet Counton 06-12-2023 Platelets (Bld) [#/Vol] 269 10*3/uL Normal 150-450 [facility] Comment on above: Result Comment: PERF ORMED BY: [place] [address] PATHOLOGIST CHIROPRACTIC TEACHER RUIZ CLIFTON M.D. Performed By: #### P P, PLT #### [address] Platelets Auto (Bld) [#/Vol] Ordered By: Jane Tracey on 06-12-2023 Platelets (Bld) [#/Vol] 269 10*3/uL 150-450 [facility] Prothrombin time (PT)Ordered By: Jane Tracey on 06-12-2023 PT Coag (PPP) [Time] 13.0 s 9.0-12.9 [facility] Comment on above: A hematocrit value g reater than 55% may lead to inaccurate results in coagulation testing. Patients having hematocrit values >55% require a special collection tube for coagulation studies. Please contact the laboratory at [phone] for redraw instructions. Office Visiton 06-10-2023 Follow-up visit [id number] Louis Stout 1995 F Date Provider Department Center 06/10/2023 Janet-MARTHA GRAY Family History Problem Relation Age of Onset Coronary artery disease Maternal Grandmother Peripheral vascular disease Maternal Grandmother Hypertension Paternal Grandmother Atrial fibrillation Paternal Grandmother Family Status - Relation Status Age at Maternal Grandmother Paternal Grandmother Level of Service:58839 [place] OFFICE/OUTPATIENT ESTABLISHED MOD MDM 30-39 MIN Normal [facility] PAT Antinuclear Antibodieson 05-30-2023 Antinuclear Abs, IFA Positive Critically abnormal . [facility] Comment on above: Result Comment: Nega tive <1:80 Borderline 1:80 Positive >1:80 Performed By: #### P P, PLT #### [facility] [address] Note 1 Normal . [facility] Comment on above: Result Comment: Holly danielle Potential Disease Association Homogeneous Systemic Lupus Erythematosus, Drug Induced Systemic Lupus Erythematosus, Chronic Autoimmune hepatitis, Juvenile Idiopathic Arthritis Speckled Sjogren Syndrome, Systemic Lupus Erythematosus, Subacute Cutaneous Lupus, Lupus, Congenital Heart Block, Mixed Connective Tissue Disease, Scleroderma-diffuse, Scleroderma-Autoimmune Myositis Overlap Syndrome, Systemic Lupus Skfzxhdptuywt-Csrrmvynsau-Qwqnvsvpfx Myositis Overlap Syndrome, Systemic Autoimmune Rheumatic Disease, [...] Cytopenias, Linear Scleroderma, Antiphospholipid Syndrome Performed at: [address] [id number] Defensive Driving Instructor: Breezy Jones PhD, Phone: [phone] Performed By: #### P P, PLT #### [facility] [address] Speckled Pattern 1:160 High . [facility] Comment on above: Result Comment: ICAP nomenclature: AC-2,4,5,29 Performed By: #### P P, PLT #### [address] ANCA Profile (ANCA+MPO+PR3)o n 05-30-2023 Antimyeloperoxidase (MPO) Abs <0.2 Normal 0.0-0.9 [facility] Comment on above: Performed By: #### P P, PLT #### [facility] [address] Atypical pANCA <1:20 Normal Neg:<1:20 [facility] Comment on above: Result Comment: The atypical pANCA pattern has been observed in a significant percentage of patients with ulcerative colitis, primary sclerosing cholangitis and autoimmune hepatitis. Performed at: [address] [id number] Defensive Driving Instructor: Lisa Ramos MD, Phone: [phone] Performed at: [address], [place], [place] [id number] Defensive Driving Instructor: Breezy Jones PhD, Phone: [phone] Performed By: #### P P, PLT #### [place] [address] [place] Cytoplasmic (C-ANCA) <1:20 Normal Neg:<1:20 [facility] Comment on above: Performed By: #### P P, PLT #### [facility] [address] [place] [address] [place] Perinuclear (P-ANCA) <1:20 Normal Neg:<1:20 [facility] Comment on above: Result Comment: The presence of positive fluorescence exhibiting P-ANCA or C-ANCA patterns alone is not specific for the diagnosis of Riri's Granulomatosis (WG) or microscopic polyangiitis. Decisions about treatment should not be based solely on ANCA IFA results. The International ANCA Group Consensus recommends follow up testing of positive sera with both [place]- 3 and MPO-ANCA enzyme immunoassays. As many as 5% serum samples are positive only by EIA. Ref. AM J Clin Pathol 1999;111:507-513. Performed By: #### P P, PLT #### [address] Proteinase 3 (PR3) Antibodies <0.2 Normal 0.0-0.9 [facility] Comment on above: Result Comment: PERF ORMED BY: [place] [address] PATHOLOGIST CHIROPRACTIC TEACHER RUIZ CLIFTON M.D. Performed By: #### P P, PLT #### [address] Alanine aminotransferase [En zymatic activity/volume] in Serum or PlasmaOrdered By: Jane Tracey on 05-30-2023 ALT [Catalytic activity/Vol] 24 U/L [facility] Albumin [Mass/volume] in Ser um or PlasmaOrdered By: Jane Tracey on 05-30-2023 Albumin [Mass/Vol] 4.1 g/dL 2.9-4.4 [facility] Albumin [Mass/volume] in Ser um or Plasma by Bromocresol green (BCG) dye binding methoOrdered By: Jane Tracey on 05-30-2023 Albumin BCG dye [Mass/Vol] 5.2 g/dL 3.5-5.7 [facility] Alkaline phosphatase [Enzyma tic activity/volume] in Serum or PlasmaOrdered By: Jane Tracey on 05-30-2023 ALP [Catalytic activity/Vol] 115 U/L 34-104 [facility] Angiotensin Converting Enzym wander 05-30-2023 Angiotensin converting enzyme [Catalytic activity/Vol] 61 U/L Normal 14-82 [facility] Comment on above: Result Comment: [facility]f ormed at: [facility] [address] [place], [place] [id number] Defensive Driving Instructor: Breezy Jones PhD, Phone: [phone] Performed By: #### P P, PLT #### [address] Aspartate aminotransferase [ Enzymatic activity/volume] in Serum or PlasmaOrdered By: Jane Tracey on 05-30-2023 AST [Catalytic activity/Vol] 32 U/L 13-39 [facility] Atypical perinuclear antineu trophil cytoplasmic antibodies measurementOrdered By: Jane Tracey on 05-30-2023 Neutrophil cytoplasmic Ab.perinuclear.atypical IF (S) [Titer] <1:20 titer Neg:<1:20 [facility] Comment on above: The atypical pANCA p attern has been observed in asignificant percentage of patients with ulcerative colitis,primary sclerosing cholangitis and autoimmune hepatitis.Performed at: [address] [id number] Director: Lisa Ramos MD, Phone: [phone] at: [employer] [address]Qbuq[facility] [place], [place] [id number] Director: Breezy Jones PhD, Phone: [phone] Basophils Auto (Bld) [#/Vol] Ordered By: Jane Tracey on 05-30-2023 Basophils (Bld) [#/Vol] 0.2 10*3/uL 0.0-0.2 [facility] Basophils/100 WBC Auto (Bld) Ordered By: Jane Tracey on 05-30-2023 Basophils/100 WBC (Bld) 1.5 % . F [facility] Bilirubin.total [Mass/volume ] in Serum or PlasmaOrdered By: Jane Tracey on 05-30-2023 Bilirubin [Mass/Vol] 0.5 mg/dL 0.3-1.0 [facility] Blood lead detectionOrdered By: Jane Tracey on 05-30-2023 Lead Ql (Bld) <1.0 ug/dL 0.0-3.4 [facility] Comment on above: Testing performed by Inductively coupled plasma/MassSpectrometry.Analysis by inductively coupled plasma/massspectrometry (ICP/MS)This test was developed and its performance characteristicsdetermined by [facility]. It has not been cleared orapproved by the Food and Drug Administration. Environmental Exposure: WHO Recommendation <5.0 Occupational Exposure: OSHA Lead Std 40.0 OLIVE 30.0 Detection Limit = 1.0Performed at: [facility] [place] [id number] Director: Breezy Jones PhD, Phone: [phone] Calcium [Mass/volume] in Ser um or PlasmaOrdered By: Jane Hungdarleen on 05-30-2023 Calcium [Mass/Vol] 10.4 mg/dL 8.6-10.3 [facility] Carbon dioxide, total [Moles /volume] in Serum or PlasmaOrdered By: Jane Acevedo Sepdarleen on 05-30-2023 CO2 [Moles/Vol] 24.8 mmol/L 21.0-31.0 [facility] Chloride [Moles/volume] in S caitlyn or PlasmaOrdered By: Jane Hungdarleen on 05-30-2023 Chloride [Moles/Vol] 99 mmol/L 98-107 [facility] Complete Blood Count Auto Di ffon 05-30-2023 Basophils (Bld) [#/Vol] 0.2 10*3/uL Normal 0.0-0.2 [facility] Comment on above: Result Comment: PERF ORMED BY: [place] [address] PATHOLOGIST CHIROPRACTIC TEACHER RUIZ CLIFTON M.D. Performed By: #### C BC, CMP, MG, LDH, [id number] #### [address] #### LEAD,ADULT, KAPPA, SPE, ANCA PROF, SANDRA, CRYOGLOB, HBSAG, CU, HIV SCREEN, RONALD SERUM, PAT, METH, HBSAB, RA, HCBIGM #### [facility] , Basophils/100 WBC (Bld) 1.5 % Normal . [facility] Comment on above: Performed By: #### C BC, CMP, MG, LDH, [id number] #### [address] #### LEAD,ADULT, KAPPA, SPE, ANCA PROF, SANDRA, CRYOGLOB, HBSAG, CU, HIV SCREEN, RONALD SERUM, PAT, METH, HBSAB, RA, HCBIGM #### [facility] , Eosinophils (Bld) [#/Vol] 0.1 10*3/uL Normal 0.0-0.45 [facility] Comment on above: Performed By: #### C BC, CMP, MG, LDH, [id number] #### [place] [address] [place] #### LEAD,ADULT, KAPPA, SPE, ANCA PROF, SANDRA, CRYOGLOB, HBSAG, CU, HIV SCREEN, RONALD SERUM, PAT, METH, HBSAB, RA, HCBIGM #### [facility] , Eosinophils/100 WBC (Bld) 0.9 % Normal . [facility] Comment on above: Performed By: #### C BC, CMP, MG, LDH, [id number] #### [place] [address] [place] #### LEAD,ADULT, KAPPA, SPE, ANCA PROF, SANDRA, CRYOGLOB, HBSAG, CU, HIV SCREEN, RONALD SERUM, PAT, METH, HBSAB, RA, HCBIGM #### [facility] , Erythrocyte distribution width (RBC) [Ratio] 12.8 % Normal 11.9-15.3 [facility] Comment on above: Performed By: #### C BC, CMP, MG, LDH, [id number] #### [address] #### LEAD,ADULT, KAPPA, SPE, ANCA PROF, SANDRA, CRYOGLOB, HBSAG, CU, HIV SCREEN, RONALD SERUM, PAT, METH, HBSAB, RA, HCBIGM #### [facility] , Hematocrit (Bld) [Volume fraction] 47.6 % High 34.0-46.4 [facility] Comment on above: Performed By: #### C BC, CMP, MG, LDH, [id number] #### [address] #### LEAD,ADULT, KAPPA, SPE, ANCA PROF, SANDRA, CRYOGLOB, HBSAG, CU, HIV SCREEN, RONALD SERUM, PAT, METH, HBSAB, RA, HCBIGM #### [facility] , Hemoglobin (Bld) [Mass/Vol] 16.3 g/dL High 11.8-15.4 [facility] Comment on above: Performed By: #### C BC, CMP, MG, LDH, [id number] #### [place] [address] [place] #### LEAD,ADULT, KAPPA, SPE, ANCA PROF, SANDRA, CRYOGLOB, HBSAG, CU, HIV SCREEN, RONALD SERUM, PAT, METH, HBSAB, RA, HCBIGM #### [facility] , Lymphocytes (Bld) [#/Vol] 2.9 10*3/uL Normal 1.00-4.8 [facility] Comment on above: Performed By: #### C BC, CMP, MG, LDH, [id number] #### [address] #### LEAD,ADULT, KAPPA, SPE, ANCA PROF, SANDRA, CRYOGLOB, HBSAG, CU, HIV SCREEN, RONALD SERUM, PAT, METH, HBSAB, RA, HCBIGM #### [facility] , Lymphocytes/100 WBC (Bld) 28.7 % Normal . [facility] Comment on above: Performed By: #### C BC, CMP, MG, LDH, [id number] #### [address] #### LEAD,ADULT, KAPPA, SPE, ANCA PROF, SANDRA, CRYOGLOB, HBSAG, CU, HIV SCREEN, RONALD SERUM, PAT, METH, HBSAB, RA, HCBIGM #### [facility] , MCH (RBC) [Entitic mass] 32.5 pg Normal 24.7-34.3 [facility] Comment on above: Performed By: #### C BC, CMP, MG, LDH, [id number] #### [address] #### LEAD,ADULT, KAPPA, SPE, ANCA PROF, SANDRA, CRYOGLOB, HBSAG, CU, HIV SCREEN, RONALD SERUM, PAT, METH, HBSAB, RA, HCBIGM #### [facility] , MCV (RBC) [Entitic vol] 95.0 fL Normal 80-100 F [facility] Comment on above: Performed By: #### C BC, CMP, MG, LDH, [id number] #### [place] [address] [place] #### LEAD,ADULT, KAPPA, SPE, ANCA PROF, SANDRA, CRYOGLOB, HBSAG, CU, HIV SCREEN, RONALD SERUM, PAT, METH, HBSAB, RA, HCBIGM #### [facility] , Mean Corpuscular HGB Conc 34.2 g/dL Normal 32.0-35.0 [facility] Comment on above: Performed By: #### C BC, CMP, MG, LDH, [id number] #### [address] #### LEAD,ADULT, KAPPA, SPE, ANCA PROF, SANDRA, CRYOGLOB, HBSAG, CU, HIV SCREEN, RONALD SERUM, PAT, METH, HBSAB, RA, HCBIGM #### [facility] , Monocytes (Bld) [#/Vol] 0.2 10*3/uL Normal 0.0-0.8 [facility] Comment on above: Performed By: #### C BC, CMP, MG, LDH, [id number] #### [address] #### LEAD,ADULT, KAPPA, SPE, ANCA PROF, SANDRA, CRYOGLOB, HBSAG, CU, HIV SCREEN, RONALD SERUM, PAT, METH, HBSAB, RA, HCBIGM #### [facility] , Monocytes/100 WBC (Bld) 2.2 % Normal . [facility] Comment on above: Performed By: #### C BC, CMP, MG, LDH, [id number] #### [address] #### LEAD,ADULT, KAPPA, SPE, ANCA PROF, SANDRA, CRYOGLOB, HBSAG, CU, HIV SCREEN, RONALD SERUM, PAT, METH, HBSAB, RA, HCBIGM #### [facility] , Neutrophils (Bld) [#/Vol] 6.7 10*3/uL Normal 1.8-7.7 [facility] Comment on above: Performed By: #### C BC, CMP, MG, LDH, [id number] #### [place] [address] [place] #### LEAD,ADULT, KAPPA, SPE, ANCA PROF, SANDRA, CRYOGLOB, HBSAG, CU, HIV SCREEN, RONALD SERUM, PAT, METH, HBSAB, RA, HCBIGM #### [facility] , Neutrophils/100 WBC (Bld) 66.7 % Normal . [facility] Comment on above: Performed By: #### C BC, CMP, MG, LDH, [id number] #### [facility] [address] [place] [address] #### LEAD,ADULT, KAPPA, SPE, ANCA PROF, SANDRA, CRYOGLOB, HBSAG, CU, HIV SCREEN, RONALD SERUM, PAT, METH, HBSAB, RA, HCBIGM #### [facility] , NRBC% 0.1 /100{WBC} Normal 0-0.5 [facility] Comment on above: Performed By: #### C BC, CMP, MG, LDH, [id number] #### [address] #### LEAD,ADULT, KAPPA, SPE, ANCA PROF, SANDRA, CRYOGLOB, HBSAG, CU, HIV SCREEN, RONALD SERUM, PAT, METH, HBSAB, RA, HCBIGM #### [facility] , Platelet mean volume (Bld) [Entitic vol] 7.6 fL Normal 6.3-10.7 [facility] Comment on above: Performed By: #### C BC, CMP, MG, LDH, [id number] #### [facility] [address] [place] [address] [place] #### LEAD,ADULT, KAPPA, SPE, ANCA PROF, SANDRA, CRYOGLOB, HBSAG, CU, HIV SCREEN, RONALD SERUM, PAT, METH, HBSAB, RA, HCBIGM #### [facility] , Platelets (Bld) [#/Vol] 325 10*3/uL Normal 150-450 [facility] Comment on above: Performed By: #### C BC, CMP, MG, LDH, [id number] #### [facility] [address] [place] [address] [place] #### LEAD,ADULT, KAPPA, SPE, ANCA PROF, SANDRA, CRYOGLOB, HBSAG, CU, HIV SCREEN, RONALD SERUM, PAT, METH, HBSAB, RA, HCBIGM #### [facility] , RBC (Bld) [#/Vol] 5.00 10*6/uL Normal 3.60-5.00 [facility] Comment on above: Performed By: #### C BC, CMP, MG, LDH, [id number] #### [facility] [address] [place] [address] #### LEAD,ADULT, KAPPA, SPE, ANCA PROF, SANDRA, CRYOGLOB, HBSAG, CU, HIV SCREEN, RONALD SERUM, PAT, METH, HBSAB, RA, HCBIGM #### [facility] , WBC (Bld) [#/Vol] 10.1 10*3/uL Normal 3.8-11.6 [facility] Comment on above: Performed By: #### C BC, CMP, MG, LDH, [id number] #### [address] #### LEAD,ADULT, KAPPA, SPE, ANCA PROF, SANDRA, CRYOGLOB, HBSAG, CU, HIV SCREEN, RONALD SERUM, PAT, METH, HBSAB, RA, HCBIGM #### [facility] , Comprehensive Metabolic Pane antione 05-30-2023 Albumin [Mass/Vol] 5.2 g/dL Normal 3.5-5.7 [facility] Comment on above: Performed By: #### C BC, CMP, MG, LDH, [id number] #### [address] #### LEAD,ADULT, KAPPA, SPE, ANCA PROF, SANDRA, CRYOGLOB, HBSAG, CU, HIV SCREEN, RONALD SERUM, PAT, METH, HBSAB, RA, HCBIGM #### [facility] , Albumin/Globulin [Mass ratio] 1.4 {ratio} Normal [facility] Comment on above: Performed By: #### C BC, CMP, MG, LDH, [id number] #### [address] #### LEAD,ADULT, KAPPA, SPE, ANCA PROF, SANDRA, CRYOGLOB, HBSAG, CU, HIV SCREEN, RONALD SERUM, PAT, METH, HBSAB, RA, HCBIGM #### [facility] , ALP [Catalytic activity/Vol] 115 U/L High 34-104 [facility] Comment on above: Performed By: #### C BC, CMP, MG, LDH, [id number] #### [facility] [address] [place] [address] #### LEAD,ADULT, KAPPA, SPE, ANCA PROF, SANDRA, CRYOGLOB, HBSAG, CU, HIV SCREEN, RONALD SERUM, PAT, METH, HBSAB, RA, HCBIGM #### [facility] , ALT [Catalytic activity/Vol] 24 U/L Normal 7-52 [facility] Comment on above: Performed By: #### C BC, CMP, MG, LDH, [id number] #### [address] #### LEAD,ADULT, KAPPA, SPE, ANCA PROF, SANDRA, CRYOGLOB, HBSAG, CU, HIV SCREEN, RONALD SERUM, PAT, METH, HBSAB, RA, HCBIGM #### [facility] , Anion gap [Moles/Vol] 17.6 mmol/L High 6.0-15.0 [facility] Comment on above: Performed By: #### C BC, CMP, MG, LDH, [id number] #### [place] [address] [place] #### LEAD,ADULT, KAPPA, SPE, ANCA PROF, SANDRA, CRYOGLOB, HBSAG, CU, HIV SCREEN, RONALD SERUM, PAT, METH, HBSAB, RA, HCBIGM #### [facility] , AST [Catalytic activity/Vol] 32 U/L Normal 13-39 [facility] Comment on above: Performed By: #### C BC, CMP, MG, LDH, [id number] #### [place] [address] [place] #### LEAD,ADULT, KAPPA, SPE, ANCA PROF, SANDRA, CRYOGLOB, HBSAG, CU, HIV SCREEN, RONALD SERUM, PAT, METH, HBSAB, RA, HCBIGM #### [facility] , Bilirubin [Mass/Vol] 0.5 mg/dL Normal 0.3-1.0 [facility] Comment on above: Performed By: #### C BC, CMP, MG, LDH, [id number] #### [address] #### LEAD,ADULT, KAPPA, SPE, ANCA PROF, SANDRA, CRYOGLOB, HBSAG, CU, HIV SCREEN, RONALD SERUM, PAT, METH, HBSAB, RA, HCBIGM #### [facility] , Calcium [Mass/Vol] 10.4 mg/dL High 8.6-10.3 [facility] Comment on above: Performed By: #### C BC, CMP, MG, LDH, [id number] #### [place] [address] [place] #### LEAD,ADULT, KAPPA, SPE, ANCA PROF, SANDRA, CRYOGLOB, HBSAG, CU, HIV SCREEN, RONALD SERUM, PAT, METH, HBSAB, RA, HCBIGM #### [facility] , Chloride [Moles/Vol] 99 mmol/L Normal 98-107 [facility] Comment on above: Performed By: #### C BC, CMP, MG, LDH, [id number] #### [place] [address] [place] #### LEAD,ADULT, KAPPA, SPE, ANCA PROF, SANDRA, CRYOGLOB, HBSAG, CU, HIV SCREEN, RONALD SERUM, PAT, METH, HBSAB, RA, HCBIGM #### [facility] , CO2 [Moles/Vol] 24.8 mmol/L Normal 21.0-31.0 [facility] Comment on above: Performed By: #### C BC, CMP, MG, LDH, [id number] #### [place] [address] [place] #### LEAD,ADULT, KAPPA, SPE, ANCA PROF, SANDRA, CRYOGLOB, HBSAG, CU, HIV SCREEN, RONALD SERUM, PAT, METH, HBSAB, RA, HCBIGM #### [facility] , Creatinine [Mass/Vol] 0.67 mg/dL Normal 0.60-1.20 [facility] Comment on above: Performed By: #### C BC, CMP, MG, LDH, [id number] #### [facility] [address] [place] [address] [place] #### LEAD,ADULT, KAPPA, SPE, ANCA PROF, SANDRA, CRYOGLOB, HBSAG, CU, HIV SCREEN, RONALD SERUM, PAT, METH, HBSAB, RA, HCBIGM #### [facility] , Creatinine Clr Calc Pharmacy 108.91 [facility] Comment on above: Performed By: #### C BC, CMP, MG, LDH, [id number] #### [place] [address] [place] #### LEAD,ADULT, KAPPA, SPE, ANCA PROF, SANDRA, CRYOGLOB, HBSAG, CU, HIV SCREEN, RONALD SERUM, PAT, METH, HBSAB, RA, HCBIGM #### [facility] , GFR/1.73 sq M.predicted MDRD (S/P/Bld) [Vol rate/Area] mL/min/{1.73_m2} [facility] Comment on above: Performed By: #### C BC, CMP, MG, LDH, [id number] #### [facility] [address] [place] [address] [place] #### LEAD,ADULT, KAPPA, SPE, ANCA PROF, SANDRA, CRYOGLOB, HBSAG, CU, HIV SCREEN, RONALD SERUM, PAT, METH, HBSAB, RA, HCBIGM #### [facility] , Globulin (S) [Mass/Vol] 3.8 g/dL Normal [facility] Comment on above: Performed By: #### C BC, CMP, MG, LDH, [id number] #### [place] [address] [place] #### LEAD,ADULT, KAPPA, SPE, ANCA PROF, SANDRA, CRYOGLOB, HBSAG, CU, HIV SCREEN, RONALD SERUM, PAT, METH, HBSAB, RA, HCBIGM #### [facility] , Glucose [Mass/Vol] 97 mg/dL Normal 70-100 [facility] Comment on above: Result Comment: Formerly named [facility] Glucose Reference Range is dependent on time and content of last meal. Glucose of more than 200 mg/dL in a nonstressed, ambulatory subject supports the diagnosis of Diabetes Mellitus. ADA recommended reference range Performed By: #### C BC, CMP, MG, LDH, [id number] #### [address] #### LEAD,ADULT, KAPPA, SPE, ANCA PROF, SANDRA, CRYOGLOB, HBSAG, CU, HIV SCREEN, RONALD SERUM, PAT, METH, HBSAB, RA, HCBIGM #### [facility] , Potassium [Moles/Vol] 3.4 mmol/L Low 3.5-5.1 [facility] Comment on above: Performed By: #### C BC, CMP, MG, LDH, [id number] #### [place] [address] [place] #### LEAD,ADULT, KAPPA, SPE, ANCA PROF, SANDRA, CRYOGLOB, HBSAG, CU, HIV SCREEN, RONALD SERUM, PAT, METH, HBSAB, RA, HCBIGM #### [facility] , Protein [Mass/Vol] 9.0 g/dL High 6.4-8.9 [facility] Comment on above: Performed By: #### C BC, CMP, MG, LDH, [id number] #### [place] [address] [place] #### LEAD,ADULT, KAPPA, SPE, ANCA PROF, SANDRA, CRYOGLOB, HBSAG, CU, HIV SCREEN, RONALD SERUM, PAT, METH, HBSAB, RA, HCBIGM #### [facility] , Sodium [Moles/Vol] 138 mmol/L Normal 136-145 [facility] Comment on above: Performed By: #### C BC, CMP, MG, LDH, [id number] #### [facility] [address] [place] [address] #### LEAD,ADULT, KAPPA, SPE, ANCA PROF, SANDRA, CRYOGLOB, HBSAG, CU, HIV SCREEN, RONALD SERUM, PAT, METH, HBSAB, RA, HCBIGM #### [facility] , Urea nitrogen [Mass/Vol] 9 mg/dL Normal 7-25 [facility] Comment on above: Performed By: #### C BC, CMP, MG, LDH, [id number] #### [facility] [address] [place] [address] #### LEAD,ADULT, KAPPA, SPE, ANCA PROF, SANDRA, CRYOGLOB, HBSAG, CU, HIV SCREEN, RONALD SERUM, PAT, METH, HBSAB, RA, HCBIGM #### [facility] , Copperon 05-30-2023 Copper 124 ug/dL Normal 80-158 [facility] Comment on above: Result Comment: This test was developed and its performance characteristics determined by [facility]. It has not been cleared or approved by the Food and Drug Administration. Detection Limit = 5 Performed at: [facility] [id number] Defensive Driving Instructor: Lisa Ramos MD, Phone: [phone] Performed By: #### P P, PLT #### [facility] [address] [place] [address] Creatinine [Mass/volume] in Serum or PlasmaOrdered By: Jane Tracey on 05-30-2023 Creatinine [Mass/Vol] 0.67 mg/dL 0.60-1.20 [facility] Cryoglobulin with Quant Refl exon 05-30-2023 Cryoglobulin, Ql, Serum Normal . F [facility] Comment on above: Result Comment: Test not performed. Insufficient specimen to perform or complete analysis. contacted your facility on 06-04-2023 This test was developed and its performance characteristics determined by [facility]. It has not been cleared or approved by the Food and Drug Administration. Performed By: #### P P, PLT #### [facility] [address] [place] [address] [place] Eosinophils Auto (Bld) [#/Vo l]Ordered By: lilia Tracey on 05-30-2023 Eosinophils (Bld) [#/Vol] 0.1 10*3/uL 0.0-0.45 [facility] Eosinophils/100 WBC Auto (Bl d)Ordered By: lilia Tracey on 05-30-2023 Eosinophils/100 WBC (Bld) 0.9 % . [facility] Erythrocyte distribution wid th Auto (RBC) [Ratio]Ordered By: [facility] Alexy on 05-30-2023 Erythrocyte distribution width (RBC) [Ratio] 12.8 % 11.9-15.3 [facility] Folate [Mass/volume] in Seru m or PlasmaOrdered By: lilia Tracey on 05-30-2023 Folate [Mass/Vol] 1.3 ng/mL >5.9 [facility] Comment on above: Folate reference ran ge: >5.9 ng/mlThe WHO technical consultation on folate and vitamin [id number] has determined that folate concentrations lessthan 4 ng/ml are considered deficient. Free K+L LT Chains, Qn, Son 05-30-2023 Free Quentin Light Chains, S 20.9 mg/L High 3.3-19.4 [facility] Comment on above: Performed By: #### P P, PLT #### [facility] [address] [place] [address] Free Lambda Light Chains, S 19.4 mg/L Normal 5.7-26.3 [facility] Comment on above: Performed By: #### P P, PLT #### [facility] [address] Quentin/Lambda Ratio, S 1.08 Normal 0.26-1.65 [facility] Comment on above: Result Comment: Perf ormed at: CB - [facility] [address] [id number] Defensive Driving Instructor: Breezy Jones PhD, Phone: [phone] Performed By: #### P P, PLT #### [facility] [address] Globulin Calc (S) [Mass/Vol] Ordered By: Jane Tracey on 05-30-2023 Globulin (S) [Mass/Vol] 3.8 g/dL [facility] Glucose [Mass/volume] in Ser um or PlasmaOrdered By: Jane Tracey on 05-30-2023 Glucose [Mass/Vol] 97 mg/dL 70-100 [facility] Comment on above: ADA recommended refe rence rangeRandom Glucose Reference Range is dependent on time and content of last meal. Glucose of more than 200 mg/dL in a nonstressed, ambulatory subject supports the diagnosis of Diabetes Mellitus. HIV 1/O/2 Antigen/Antibodyon 05-30-2023 HIV Screen 4th Generation Non-Reactive Normal Non Reactive [facility] Comment on above: Result Comment: HIV Negative HIV-1/HIV-2 antibodies and HIV-1 p24 antigen were NOT detected. There is no laboratory evidence of HIV infection. Performed at: [facility] [address] [address] Defensive Driving Instructor: Breezy Jones PhD, Phone: [phone] Performed By: #### P P, PLT #### [facility] [address] HIV 1 and HIV-2 antibody ass ay with HIV-1 p24 antigen detectionOrdered By: Jane Tracey on 05-30-2023 HIV 1+2 Ab+HIV1 p24 Ag IA Ql Non-Reactive Non Reactive [facility] Comment on above: HIV NegativeHIV-1/HI V-2 antibodies and HIV-1 p24 antigen were NOTdetected. There is no laboratory evidence of HIV infection.Performed at: [facility] [place] [id number] Director: Breezy Jones PhD, Phone: [phone] Hematocrit Auto (Bld) [Volum e fraction]Ordered By: Jane Tracey on 05-30-2023 Hematocrit (Bld) [Volume fraction] 47.6 % 34.0-46.4 [facility] Hemoglobin [Mass/volume] in BloodOrdered By: Jane Alexy on 05-30-2023 Hemoglobin (Bld) [Mass/Vol] 16.3 g/dL 11.8-15.4 [facility] Hepatitis B Core Antibody Ig Mon 05-30-2023 Hepatitis B Core Antibody IgM Negative Normal Negative [facility] Comment on above: Result Comment: Perf ormed at: - [facility] [address] [id number] Defensive Driving Instructor: Breezy Jones PhD, Phone: [phone] Performed By: #### C BC, CMP, MG, LDH, [id number] #### [address] #### LEAD,ADULT, KAPPA, SPE, ANCA PROF, SANDRA, CRYOGLOB, HBSAG, CU, HIV SCREEN, RONALD SERUM, PAT, METH, HBSAB, RA, HCBIGM #### [facility] , Hepatitis B Surface Antibody on 05-30-2023 Hepatitis B Surface Antibody Reactive Normal . [facility] Comment on above: Result Comment: Non Reactive: Inconsistent with immunity, less than 10 mIU/mL Reactive: Consistent with immunity, greater than 9.9 mIU/mL Performed By: #### C BC, CMP, MG, LDH, [id number] #### [address] #### LEAD,ADULT, KAPPA, SPE, ANCA PROF, SANDRA, CRYOGLOB, HBSAG, CU, HIV SCREEN, RONALD SERUM, PAT, METH, HBSAB, RA, HCBIGM #### [facility] , Hepatitis B Surface Antigeno n 05-30-2023 HBsAg Screen Negative Normal Negative [facility] Comment on above: Result Comment: PERF ORMED BY: [place] [address] PATHOLOGIST CHIROPRACTIC TEACHER RUIZ CLIFTON M.D. Performed By: #### P P, PLT #### [address] Hepatitis B virus surface Ag [Presence] in Serum or Plasma by ImmunoassayOrdered By: Jane Tracey on 05-30-2023 HBV surface Ag IA Ql Negative Negative [facility] IgA [Mass/volume] in Serum o r PlasmaOrdered By: Jane Tracey on 05-30-2023 IgA [Mass/Vol] 539 mg/dL 87-352 [facility] IgG [Mass/volume] in Serum o r PlasmaOrdered By: Jane Tracey on 05-30-2023 IgG [Mass/Vol] 1365 mg/dL 586-1602 [facility] IgM [Mass/volume] in Serum o r PlasmaOrdered By: Jane Tracey on 05-30-2023 IgM [Mass/Vol] 352 mg/dL 26-217 [facility] Comment on above: Performed at: [facility] [id number] [place], [place] [id number] Director: Breezy Jones PhD, Phone: [phone] Immunofixation,Serumon 05-30 Immunofixation, Serum Normal . [facility] Comment on above: Result Comment: No m onoclonality detected. Performed By: #### P P, PLT #### [facility] [address] [place] [address] [place] Immunoglobulin A, Serum 539 mg/dL High 87-352 F [facility] Comment on above: Performed By: #### P P, PLT #### [facility] [address] [place] [address] [place] Immunoglobulin G 1365 mg/dL Normal 586-1602 [facility] Comment on above: Performed By: #### P P, PLT #### [facility] [address] [place] [address] [place] Immunoglobulin M, Serum 352 mg/dL High 26-217 F [facility] Comment on above: Result Comment: Perf ormed at: [facility] [place] [address] [place], [place] [id number] Defensive Driving Instructor: Breezy Jones PhD, Phone: [phone] Performed By: #### P P, PLT #### [facility] [address] [place] [address] Immunoglobulin light chains. kappa.free [Mass/volume] in SerumOrdered By: Jane Tracey on 05-30-2023 Immunoglobulin light chains.kappa.free (S) [Mass/Vol] 20.9 mg/L 3.3-19.4 [facility] Immunoglobulin light chains. kappa.free/Immunoglobulin light chains.lambda.free [MassOrdered By: Jane Tracey on 05-30-2023 Immunoglobulin light chains.kappa.free/Immun oglobulin light chains.lambda.free (S) [Mass ratio] 1.08 0.26-1.65 [facility] Comment on above: Performed at: [place] [id number] Director: Breezy Jones PhD, Phone: [phone] Immunoglobulin light chains. lambda.free [Mass/volume] in Serum or PlasmaOrdered By: Jane Tracey on 05-30-2023 Immunoglobulin light chains.lambda.free [Mass/Vol] 19.4 mg/L 5.7-26.3 [facility] LDH Lactate Dehydrogenaseon 05-30-2023 LDH Lactate Dehydrogenase 219 U/L Normal 140-271 [facility] Comment on above: Performed By: #### C BC, CMP, MG, LDH, [id number] #### [facility] [address] [place] [address] #### LEAD,ADULT, KAPPA, SPE, ANCA PROF, SANDRA, CRYOGLOB, HBSAG, CU, HIV SCREEN, RONALD SERUM, PAT, METH, HBSAB, RA, HCBIGM #### [facility] , Lactate dehydrogenase [Enzym atic activity/volume] in Serum or Plasma by Lactate to pyOrdered By: Jane Tracey on 05-30-2023 LDH Lactate to pyruvate reaction [Catalytic activity/Vol] 219 U/L 140-271 [facility] Lead, Adulton 05-30-2023 Lead-Adult Blood <1.0 Normal 0.0-3.4 [facility] Comment on above: Result Comment: Test ing performed by Inductively coupled plasma/Mass Spectrometry. Analysis by inductively coupled plasma/mass spectrometry (ICP/MS) This test was developed and its performance characteristics determined by [employer]. It has not been cleared or approved by the Food and Drug Administration. Environmental Exposure: WHO Recommendation <5.0 Occupational Exposure: OSHA Lead Std 40.0 OLIVE 30.0 Detection Limit = 1.0 Performed at: [address] [id number] Defensive Driving Instructor: Breezy Jones PhD, Phone: [phone] Performed By: #### P P, PLT #### [address] Leukocytes [#/volume] correc antoine for nucleated erythrocytes in Blood by Automated counOrdered By: Jane Tracey on 05-30-2023 WBC corrected for nucl RBC Auto (Bld) [#/Vol] 10.1 10*3/uL 3.8-11.6 [facility] Lymphocytes Auto (Bld) [#/Vo l]Ordered By: Jane Tracey on 05-30-2023 Lymphocytes (Bld) [#/Vol] 2.9 10*3/uL 1.00-4.8 [facility] Lymphocytes/100 WBC Auto (Bl d)Ordered By: Jane Tracey on 05-30-2023 Lymphocytes/100 WBC (Bld) 28.7 % . [facility] MCH Auto (RBC) [Entitic mass ]Ordered By: Jane Tracey on 05-30-2023 MCH (RBC) [Entitic mass] 32.5 pg 24.7-34.3 [facility] MCHC Auto (RBC) [Mass/Vol]Or dered By: Jane Tracey on 05-30-2023 MCHC (RBC) [Mass/Vol] 34.2 g/dL 32.0-35.0 [facility] MCV Auto (RBC) [Entitic vol] Ordered By: Jane Tracey on 05-30-2023 MCV (RBC) [Entitic vol] 95.0 fL 80-100 F [facility] Magnesiumon 05-30-2023 Magnesium [Mass/Vol] 1.9 mg/dL Normal 1.9-2.7 [facility] Comment on above: Performed By: #### C BC, CMP, MG, LDH, [id number] #### [facility] [address] #### LEAD,ADULT, KAPPA, SPE, ANCA PROF, SANDRA, CRYOGLOB, HBSAG, CU, HIV SCREEN, RONALD SERUM, PAT, METH, HBSAB, RA, HCBIGM #### [facility] , Magnesium [Mass/volume] in S caitlyn or PlasmaOrdered By: Jane Tracey on 05-30-2023 Magnesium [Mass/Vol] 1.9 mg/dL 1.9-2.7 [facility] Methylmalonic Acidon 023 Methylmalonic Acid 99 Normal 0-378 [facility] Comment on above: Result Comment: This test was developed and its performance characteristics determined by [employer]. It has not been cleared or approved by the Food and Drug Administration. Performed at: [address] [id number] Defensive Driving Instructor: Lisa Ramos MD, Phone: [phone] Performed By: #### P P, PLT #### [facility] [address] Monocyte %Ordered By: Jane Ying on 05-30-2023 Monocyte % 124 ug/dL 80-158 [facility] Comment on above: This test was develo ped and its performance characteristicsdetermined by [employer]. It has not been cleared orapproved by the Food and Drug Administration. Detection Limit = 5Performed at: [address] [id number] Director: Lisa Ramos MD, Phone: [phone] Monocytes Auto (Bld) [#/Vol] Ordered By: Jane Tracey on 05-30-2023 Monocytes (Bld) [#/Vol] 0.2 10*3/uL 0.0-0.8 [facility] Monocytes/100 WBC Auto (Bld) Ordered By: Jane Tracey on 05-30-2023 Monocytes/100 WBC (Bld) 2.2 % . F [facility] Myeloperoxidase Ab [Units/vo lume] in Serum by ImmunoassayOrdered By: Jane Condon on 05-30-2023 Myeloperoxidase Ab IA Qn (S) <0.2 units 0.0-0.9 [facility] Neutrophils Auto (Bld) [#/Vo l]Ordered By: Jane Tracey on 05-30-2023 Neutrophils (Bld) [#/Vol] 6.7 10*3/uL 1.8-7.7 [facility] Neutrophils/100 WBC Auto (Bl d)Ordered By: Jane Tracey on 05-30-2023 Neutrophils/100 WBC (Bld) 66.7 % . [facility] No Panel InformationOrdered By: Jane Tracey on 05-30-2023 Anti-Nuclear Antibody Comment 2 See comment . [facility] Comment on above: Pattern Potential Di sease Association Homogeneous Systemic Lupus Erythematosus, Drug Induced Systemic Lupus Erythematosus, Chronic Autoimmune hepatitis, Juvenile Idiopathic Arthritis Speckled Sjogren Syndrome, Systemic Lupus Erythematosus, Subacute Cutaneous Lupus, Lupus, Congenital Heart Block, Mixed Connective Tissue Disease, Scleroderma-diffuse, Scleroderma-Autoimmune Myositis Overlap Syndrome, Systemic Lupus Wkeitrfgzinfd-Iekukorscvq-Cxcosyfixg Myositis Overlap Syndrome, Systemic Autoimmune Rheumatic Disease, [...] Cytopenias, Linear Scleroderma, Antiphospholipid Syndrome Performed at: [facility] [address] [id number] Director: Breezy Jones PhD, Phone: [phone] Estimated GFR (CKD-EPI) > 60.0 mL/Min [facility] Hepatitis B Core IgM Antibody Negative Negative [facility] Comment on above: Performed at: [facility] [address] [id number] Director: Breezy Jones PhD, Phone: [phone] Perinuclear ANCA (p-ANCA) Antibody <1:20 titer Neg:<1:20 [facility] Comment on above: The presence of posi tive fluorescence exhibiting P-ANCA orC-ANCA patterns alone is not specific for the diagnosis ofWegener's Granulomatosis (WG) or microscopic polyangiitis.Decisions about treatment should not be based solely onANCA IFA results. The International ANCA Group Consensusrecommends follow up testing of positive sera with both W[place]-3 and MPO-ANCA enzyme immunoassays. As many as 5% serumsamples are positive only by EIA. Ref. AM J Clin Mhruis0615;111:507-513. Pharmacy Creatinine Clearance (Chem 108.91 [facility] Protein Electrophoresis M-Tomas Not observed g/dL Not Observed [facility] Protein Electrophoresis Note See comment . [facility] Comment on above: Protein electrophore sis scan will follow via computer,mail, or line builder delivery. Serum Immunofixation See comment . [facility] Comment on above: No monoclonality det ected. Nucleated erythrocytes [Pres ence] in Blood by Automated countOrdered By: Jane Tracey on 05-30-2023 Nucleated RBC Auto Ql (Bld) 0.1 /100{WBC} 0-0.5 [facility] Platelet mean volume Auto (B ld) [Entitic vol]Ordered By: Jane Tracey on 05-30-2023 Platelet mean volume (Bld) [Entitic vol] 7.6 fL 6.3-10.7 [facility] Platelets Auto (Bld) [#/Vol] Ordered By: Jane Tracey on 05-30-2023 Platelets (Bld) [#/Vol] 325 10*3/uL 150-450 [facility] Potassium [Moles/volume] in Serum or PlasmaOrdered By: Jane Tracey on 05-30-2023 Potassium [Moles/Vol] 3.4 mmol/L 3.5-5.1 [facility] Protein Electrophoresis, Ser umon 05-30-2023 Albumin [Mass/Vol] 4.1 g/dL Normal 2.9-4.4 [facility] Comment on above: Performed By: #### P P, PLT #### [facility] [address] [place] [address] Albumin/Globulin [Mass ratio] 1.0 {ratio} Normal 0.7-1.7 [facility] Comment on above: Performed By: #### P P, PLT #### [address] Eitze-6-Clygiwrz 0.2 g/dL Normal 0.0-0.4 [facility] Comment on above: Performed By: #### P P, PLT #### [address] Utkyg-5-Gdhzbpzq 1.0 g/dL Normal 0.4-1.0 [facility] Comment on above: Performed By: #### P P, PLT #### [address] Beta Globulin 1.3 g/dL Normal 0.7-1.3 [facility] Comment on above: Performed By: #### P P, PLT #### [address] Gamma Globulin 1.5 g/dL Normal 0.4-1.8 [facility] Comment on above: Performed By: #### P P, PLT #### [address] Globulin (S) [Mass/Vol] 4.0 g/dL High 2.2-3.9 [facility] Comment on above: Performed By: #### P P, PLT #### [address] M-Tomas Not Observed Normal Not Observed [facility] Comment on above: Performed By: #### P P, PLT #### [address] Protein [Mass/Vol] 8.1 g/dL Normal 6.0-8.5 [facility] Comment on above: Performed By: #### P P, PLT #### [address] SPE-Note Normal . [facility] Comment on above: Result Comment: Prot ein electrophoresis scan will follow via computer, mail, or line builder delivery. Performed By: #### P P, PLT #### [address] Protein [Mass/volume] in Ser um or PlasmaOrdered By: Jane Tracey on 05-30-2023 Protein [Mass/Vol] 9.0 g/dL 6.4-8.9 [facility] Protein [Mass/Vol] 8.1 g/dL 6.0-8.5 [facility] Proteinase 3 Ab [Units/volum e] in Serum by ImmunoassayOrdered By: Jane Tracey on 05-30-2023 Proteinase 3 Ab IA Qn (S) <0.2 units 0.0-0.9 [facility] RBC Auto (Bld) [#/Vol]Ordere d By: Jane Tracey on 05-30-2023 RBC (Bld) [#/Vol] 5.00 10*6/uL 3.60-5.00 [facility] Rheumatoid Factoron 05-30-20 23 Rheumatoid Factor 10.9 Normal <14.0 [facility] Comment on above: Result Comment: Perf ormed at: [facility] [place] [address] Defensive Driving Instructor: Breezy Jones PhD, Phone: [phone] Performed By: #### P P, PLT #### [facility] [address] Serum angiotensin converting enzyme (SANDRA) measurementOrdered By: Jane Tracey on 05-30-2023 Angiotensin converting enzyme [Catalytic activity/Vol] 61 U/L 14- [facility] Comment on above: Performed at: [facility] [place] [id number] Director: Breezy Jones PhD, Phone: [phone] Serum classic neutrophil cyt oplasmic antibody titer by immunofluorescenceOrdered By: Jane Tracey on 05-30-2023 Neutrophil cytoplasmic Ab.classic IF (S) [Titer] <1:20 titer Neg:<1:20 [facility] Serum cryoglobulin detection Ordered By: Jane Tracey on 05-30-2023 Cryoglobulin Ql (S) See comment . [facility] Comment on above: Test not performed. Insufficient specimen to perform orcomplete analysis.contacted your facility on 26-17-0548Xgup test was developed and its performance characteristicsdetermined by [facility]. It has not been cleared orapproved by the Food and Drug Administration. Serum globulin measurement ( mass/volume)Ordered By: Jane Tracey on 05-30-2023 Globulin (S) [Mass/Vol] 4.0 g/dL 2.2-3.9 [facility] Serum hepatitis B virus surf sandra antibody detectionOrdered By: Jane Tracey on 05-30-2023 HBV surface Ab Ql (S) Reactive . [facility] Comment on above: Non Reactive: Incons istent with immunity, less than 10 mIU/mL Reactive: Consistent with immunity, greater than 9.9 mIU/mL Serum nuclear antibody titer Ordered By: Jane Tracey on 05-30-2023 Nuclear Ab (S) [Titer] Positive . [facility] Comment on above: Negative <1:80 Borde rline 1:80 Positive >1:80 Serum or plasma albumin/glob ulin mass ratioOrdered By: Jane Tracey on 05-30-2023 Albumin/Globulin [Mass ratio] 1.4 {ratio} [facility] Albumin/Globulin [Mass ratio] 1.0 {ratio} 0.7-1.7 [facility] Serum or plasma alpha 1 glob ulin measurement by electrophoresis (mass/volume)Ordered By: Jane Tracey on 05-30-2023 Alpha 1 globulin Elph [Mass/Vol] 0.2 g/dL 0.0-0.4 [facility] Serum or plasma alpha 2 glob ulin measurement by electrophoresis (mass/volume)Ordered By: Jane Tracey on 05-30-2023 Alpha 2 globulin Elph [Mass/Vol] 1.0 g/dL 0.4-1.0 [facility] Serum or plasma anion gap de terminationOrdered By: Jane Tracey on 05-30-2023 Anion gap [Moles/Vol] 17.6 mmol/L 6.0-15.0 [facility] Serum or plasma beta globuli n measurement by electrophoresis (mass/volume)Ordered By: Jane Tracey on 05-30-2023 Beta globulin Elph [Mass/Vol] 1.3 g/dL 0.7-1.3 [facility] Serum or plasma gamma globul in measurement by electrophoresis (mass/volume)Ordered By: Jane Tracey on 05-30-2023 Gamma globulin Elph [Mass/Vol] 1.5 g/dL 0.4-1.8 [facility] Serum or plasma methylmalona te measurement (moles/volume)Ordered By: Jane Condon on 05-30-2023 Methylmalonate [Moles/Vol] 99 nmol/L 0-378 [facility] Comment on above: This test was devswatio ped and its performance characteristicsdetermined by [facility]. It has not been cleared orapproved by the Food and Drug Administration.Performed at: [address] [id number] Director: Lisa Ramos MD, Phone: [phone] Serum or plasma rheumatoid f actor measurement (units/volume)Ordered By: Jane Tracey on 05-30-2023 Rheumatoid factor Qn 10.9 [IU]/mL <14.0 [facility] Comment on above: Performed at: [address] [id number] Director: Breezy Jones PhD, Phone: [phone] Serum speckled pattern antin uclear antibody (PAT) titerOrdered By: Jane Condon on 05-30-2023 Speckled nuclear Ab pattern (S) [Titer] 1:160 . [facility] Comment on above: ICAP nomenclature: A C-2,4,5,29 Sodium [Moles/volume] in Ser um or PlasmaOrdered By: Jane Tracey on 05-30-2023 Sodium [Moles/Vol] 138 mmol/L 136-145 [facility] Urea nitrogen [Mass/volume] in Serum or PlasmaOrdered By: Jane Tracey on 05-30-2023 Urea nitrogen [Mass/Vol] 9 mg/dL 7-25 [facility] Vit. B12/Folate Profileon Cobalamin (Vitamin B12) [Mass/Vol] 169 pg/mL Low 180-914 [facility] Comment on above: Performed By: #### C BC, CMP, MG, LDH, [id number] #### [facility] [address] [place] [address] [place] #### LEAD,ADULT, KAPPA, SPE, ANCA PROF, SANDRA, CRYOGLOB, HBSAG, CU, HIV SCREEN, RONALD SERUM, PAT, METH, HBSAB, RA, HCBIGM #### [facility] , Folate 1.3 ng/mL Low >5.9 [facility] Comment on above: Result Comment: Astrid te reference range: >5.9 ng/ml The WHO technical consultation on folate and vitamin b12 deficiencies has determined that folate concentrations less than 4 ng/ml are considered deficient. PERFORMED BY: [place] [address] PATHOLOGIST CHIROPRACTIC TEACHER RUIZ CLIFTON M.D. Performed By: #### C BC, CMP, MG, LDH, [id number] #### [address] #### LEAD,ADULT, KAPPA, SPE, ANCA PROF, SANDRA, CRYOGLOB, HBSAG, CU, HIV SCREEN, RONALD SERUM, PAT, METH, HBSAB, RA, HCBIGM #### [facility] , Vitamin B12 ser/plasOrdered By: Jane Tracey on 05-30-2023 Cobalamin (Vitamin B12) [Mass/Vol] 169 pg/mL 180-914 [facility] WBC Auto (Bld) [#/Vol]Ordere d By: Jane Tracey on 05-30-2023 WBC (Bld) [#/Vol] 10.1 10*3/uL 3.8-11.6 [facility] CNOVon 05-23-2023 CNOV Office Visit (NEUS ) -------- RICA STOUT ([id number]) 1995 F Date Time Provider Department 05/23/23 [...] year old female who presents to the [facility] Neurology clinic with the chief complaint of [...] studies. B12. SPEP with RONALD. - Start dzon-ica-iwzrdbg B complex supplementation after laboratory studies. - Trial alpha lipoic acid. Take 600 mg daily. - Follow-up in person in 4 to 6 months. Arsh Orozco MD Staff, [facility] [place] HPI: This is Ms. Rica Stout, a 27 year old female who presents to the [facility] Neurology clinic with the chief complaint of [...] shrug bilater (more content not included)... Normal [facility] ECG 12-Leadon 05-10-2023 ECG 12-Lead [id number]#1.00TIFF Normal [facility] RAD - MISCon 05-10-2023 RAD - MISC [id number]#1.00TIFF [facility] RAD - MRI Reporton RAD - MRI Report [id number]#1.00TIFF [facility] RAD - Ultrasound Reporton RAD - Ultrasound Report [id number]#1.00TIFF [facility] Office Visiton 05-08-2023 Follow-up visit [id number] Louis Stout 1995 F Date Provider Department Center 05/08/2023 Janet-MARTHA GRAY [facility] Family History Problem Relation Age of Onset Coronary artery disease Maternal Grandmother Peripheral vascular disease Maternal Grandmother Hypertension Paternal Grandmother Atrial fibrillation Paternal Grandmother Family Status - Relation Status Age at Maternal Grandmother Paternal Grandmother Level of Service:99552 [place] OFFICE/OUTPATIENT ESTABLISHED MOD MDM 30-39 MIN Normal [facility] Lab Reportson 04-18-2023 Lab Reports [id number]#1.00CD:12 7 [facility] Lab Reports [id number] [id number]#1.00CD:12 7 [facility] RAD - Ultrasound Reporton RAD - Ultrasound Report [id number]#1.00CD:12 7 [facility] A1AT SerPl-mCncon 04-12-2023 Alpha 1 antitrypsin [Mass/Vol] 138 mg/dL Normal 90-200 [facility] Comment on above: Order Comment: Speci men Type: BLOOD SPECIMENOrdering Facility: [facility] Address: [address] [place], [place] [id number] Performed By: #### 1 825-9, 63698-7, 2064-4, 35187-3 ####[facility] [id number] [place] [address] [place] ALPHA 1 ANTITRYP PHEN/GENOTY PEon 04-12-2023 HA1IN Normal [facility] Comment on above: Order Comment: Speci men Type: BLOOD SPECIMENOrdering Facility: [facility] Address: [address] [place] [address] Result Comment: Alph a 1 Antitrypsin Phenotype and Genotype Laboratory Accession Number: [id number] Result: No Variant Detected in SERPINA1 (PI*MM) [...] two most common pathogenic variants: S (c.863A>T, p.Zlh795Aob, g.[id number]), Z (c.1096G>A, p.Ogd539Gkh, g.61190578), and the rarer variants: F (c.739C>T, p.Fpc598Sts, g.77302315), I (c.187C>T, p.Hvg25Fre, g.34193432). Limitations: This Laboratory Developed Test (LDT) is [...] developed and its performance characteristics determined by [facility]'s [facility] Pathology and [facility] [place] ([facility]). It has not been cleared or approved by the FDA. [facility] is regulated under CLIA as certified to perform high- complexity testing. This test is used for clinical purposes. It should not be regarded as investigational or for research. Testing and interpretation performed at [facility], [address] [place] [address]. CLIA Number: [id number] References: 1) Alok RA, Rodo G, Alicia ML, Valdemar M, Zay CE, K, Martinez DK, Rodger SL, Benson JM, Esther CabreraK, Placido C, Inocente J. The Diagnosis and Management of Alpha-1 Antritrypsin Deficiency in the Adult. Chronic Obstr Pulm Dis. 2016 Dec 25;3:668-682. 2) Bella JA, Sara ON, Pati ER, Daniel DG. a1-Antitrypsin phenotypes and associated serum protein concentrations in a large clinical population. Chest.2013 Oct;143(4):1000-8. 3) Miles A, Thu NA, Stephane CR, Bong FJ, Carlos SJ, Christel AF. Molecular characterisation of three eweox-4-aecmtgjvyeo deficiency variants: proteinase inhibitor (Pi) nullcardiff (Ocp847----Jlj); PiMmalton (Plf28----djmrrvfv) and PiI (Chl49----Irw). Hum Karen. 1988;84(1):55-8. 4) Nancy EK and Alok RA. Clinical practice. Alpha1-antitrypsin deficiency. N Engl J Med. 2008Jan 13;360(44)7865-48. 5) Jorge NJ, Javier F, Samantha NAGEL. The significance of the F variant of qmnwh-1-iidvrrubrwy and unique case report of a PiFF homozygote. [facility]. 2014 Feb 25;14:132. 6) Esther CabreraK, Laisha FL, and Nicolette Mccurdy. Alpha-1 Antitrypsin Deficiency. 2005May 17 [Updated 2017 August 09]. In: Gricelda RA, Chele MP, Iban TO, et al., editors. GeneReviews [Internet]. [place]): Formerly [facility]; 1012-6532. Available from: http://www.ncbi.nlm.nih.gov/books/ALP8710/ As reviewed by Saritha Swan MD Performed By: #### A 1ATPG ####[facility] ILLUM[facility] [id number] [address] OF [facility] PAT BY IFA WITH REFLEXon Nuclear Ab pattern (S) [Interp] Nuclear fine speckled Normal [facility] Comment on above: Order Comment: Speci men Type: BLOOD SPECIMENOrdering Facility: [facility] Address: [address] [place] [address] Performed By: #### 1 1565-9, 17776-7, 32849-1, 76436-6, 09817-0, 50216-9, ANAIFR, 01602-8, 04376-5, 64683-0, 06389-6, 12142-3 ####[facility] [id number] [place] [address] [place] Nuclear Ab Ql (S) Positive Abnormal Negative [facility] Comment on above: Order Comment: Speci men Type: BLOOD SPECIMENOrdering Facility: [facility] Address: [address] [place] [address] Result Comment: Anti -nuclear antibody test is used as an aid in diagnosis of systemic autoimmune diseases. Where positive and clinically warranted, follow-up using disease-specific testing is recommended. Low positive titers are not uncommon with advanced age, certain chronic infections, and malignancies among others. Test methodology: Indirect fluorescence immunoassay (IFA) using HEp-2 cells. 1:80 Performed By: #### 1 1565-9, 04066-0, 73070-2, 61587-1, 54875-0, 82385-4, ANAIFR, 62993-8, 04488-8, 15753-8, 99349-6, 85154-4 ####[facility] [id number] [place] [address] [place] Basic metabolic 2000 panelon 04-12-2023 Anion gap [Moles/Vol] 18 mmol/L Normal 9-18 [facility] Comment on above: Order Comment: Speci men Type: BLOOD SPECIMENOrdering Facility: [facility] Address: [address] [place] [address] Performed By: #### 1 825-9, 40045-2, 2064-4, 89180-5 ####[facility] [id number] [place] [address] [place] Calcium [Mass/Vol] 10.3 mg/dL High 8.5-10.2 [facility] Comment on above: Order Comment: Speci men Type: BLOOD SPECIMENOrdering Facility: [facility] Address: [address] [place] [address] Performed By: #### 1 825-9, 79193-5, 2063-, 01749-5 ####[facility] [id number] [place] [address] [place] Chloride [Moles/Vol] 100 mmol/L Normal 97-105 [facility] Comment on above: Order Comment: Speci men Type: BLOOD SPECIMENOrdering Facility: [facility] Address: [address] [place] [address] Performed By: #### 1 825-9, 89941-3, 2063-10, 90552-0 ####[facility] [id number] [place] [address] [place] CO2 [Moles/Vol] 20 mmol/L Low 22-30 [facility] Comment on above: Order Comment: Speci men Type: BLOOD SPECIMENOrdering Facility: [facility] Address: [address] [place] [address] Performed By: #### 1 825-9, 03998-4, 2063-10, 59485-1 ####[facility] [id number] [place] [address] [place] Creatinine [Mass/Vol] 0.43 mg/dL Low 0.58-0.96 [facility] Comment on above: Order Comment: Speci men Type: BLOOD SPECIMENOrdering Facility: [facility] Address: [address] [place] [address] Performed By: #### 1 825-9, 60136-9, 2063-10, 87446-1 ####[facility] [id number] [place] [address] [place] Creatinine and Glomerular filtration rate.predicted panel (S/P/Bld) 137 mL/min/1.73m??? Normal >=60 [facility] Comment on above: Order Comment: Speci men Type: BLOOD SPECIMENOrdering Facility: [facility] Address: [address] [place] [address] Result Comment: Ebony mated Glomerular Filtration Rate [...] accurately reflect actual GFR. Performed By: #### 1 825-9, 21019-0, 2063-10, ####[facility] [id number] [place] [id number] [place] Glucose [Mass/Vol] 96 mg/dL Normal 74-99 [facility] Comment on above: Order Comment: Speci men Type: BLOOD SPECIMENOrdering Facility: [facility] Address: [address] [place], [place] [address] Result Comment: The [place] Diabetes [employer] (ADA) provides guidance for cutoff [...] Standards of Medical Care in Diabetes 2016, [place] [employer]. Diabetes Care. 2016.39(Suppl 1). Performed By: #### 1 825-9, 09732-6, 2063-10, ####[facility] [id number] [place] [id number] [place] Potassium [Moles/Vol] 3.9 mmol/L Normal 3.7-5.1 [facility] Comment on above: Order Comment: Speci men Type: BLOOD SPECIMENOrdering Facility: [facility] Address: [address] [place] [address] Performed By: #### 1 825-9, 38433-4, 2063-10, 97012-4 ####[facility] [id number] [place] [address] [place] Sodium [Moles/Vol] 138 mmol/L Normal 136-144 [facility] Comment on above: Order Comment: Speci men Type: BLOOD SPECIMENOrdering Facility: [facility] Address: [address] [place] [address] Performed By: #### 1 825-9, 66573-4, 2063-10, 31872-6 ####[facility] [id number] [place] [address] [place] Urea nitrogen [Mass/Vol] 7 mg/dL Normal 7-21 [facility] Comment on above: Order Comment: Speci men Type: BLOOD SPECIMENOrdering Facility: [facility] Address: [address] [place] [address] Performed By: #### 1 825-9, 71911-2, 2063-10, 51717-0 ####[facility] [id number] [place] [address] [place] CBC W Auto Differential pane l (Bld)on 04-12-2023 Basophils (Bld) [#/Vol] 0.09 10*3/uL Normal <0.11 [facility] Comment on above: Order Comment: Speci men Type: BLOOD SPECIMENOrdering Facility: [facility] Address: [address] [place] [address] Performed By: #### 5 7021-8 ####[facility] [id number] [place] [address] [place] Basophils/100 WBC (Bld) 1.0 % Normal C [facility] Comment on above: Order Comment: Speci men Type: BLOOD SPECIMENOrdering Facility: [facility] Address: [address] [place] [address] Performed By: #### 5 7021-8 ####[facility] [id number] [place] [address] [place] Differential cell count method Nom (Bld) Manual Normal [facility] Comment on above: Order Comment: Speci men Type: BLOOD SPECIMENOrdering Facility: [facility] Address: [address] [place], [place] [address] Performed By: #### 5 7021-8 ####[facility] [id number] [place] [address] [place] Eosinophils (Bld) [#/Vol] 0.36 10*3/uL Normal <0.46 [facility] Comment on above: Order Comment: Speci men Type: BLOOD SPECIMENOrdering Facility: [facility] Address: [address] [place], [place] [address] Performed By: #### 5 7021-8 ####[facility] [id number] [place] [address] [place] Eosinophils/100 WBC (Bld) 4.0 % Normal [facility] Comment on above: Order Comment: Speci men Type: BLOOD SPECIMENOrdering Facility: [facility] Address: [address] [place] [address] Performed By: #### 5 7021-8 ####[facility] [id number] [place] [address] [place] Erythrocyte distribution width (RBC) [Ratio] 12.3 % Normal 11.5-15.0 [facility] Comment on above: Order Comment: Speci men Type: BLOOD SPECIMENOrdering Facility: [facility] Address: [address] [place], [place] [address] Performed By: #### 5 7021-8 ####[facility] [id number] [place] [address] [place] Hematocrit (Bld) [Volume fraction] 43.8 % Normal 36.0-46.0 [facility] Comment on above: Order Comment: Speci men Type: BLOOD SPECIMENOrdering Facility: [facility] Address: [address] [place] [address] Performed By: #### 5 7021-8 ####[facility] [id number] [place] [address] [place] Hemoglobin (Bld) [Mass/Vol] 14.5 g/dL Normal 11.5-15.5 [facility] Comment on above: Order Comment: Speci men Type: BLOOD SPECIMENOrdering Facility: [facility] Address: [address] [place] [address] Performed By: #### 5 7021-8 ####[facility] [id number] [place] [address] [place] Lymphocytes (Bld) [#/Vol] 1.72 10*3/uL Normal 1.00-4.00 [facility] Comment on above: Order Comment: Speci men Type: BLOOD SPECIMENOrdering Facility: [facility] Address: [address] [place], [place] [address] Performed By: #### 5 7021-8 ####[facility] [id number] [address] [place] Lymphocytes/100 WBC (Bld) 19.0 % Normal [facility] Comment on above: Order Comment: Speci men Type: BLOOD SPECIMENOrdering Facility: [facility] Address: [address] [place], [place] [address] Performed By: #### 5 7021-8 ####[facility] [id number] [place] [address] [place] MCH (RBC) [Entitic mass] 34.4 pg High 26.0-34.0 [facility] Comment on above: Order Comment: Speci men Type: BLOOD SPECIMENOrdering Facility: [facility] Address: [address] Performed By: #### 5 7021-8 ####[facility] [id number] [address] [place] MCHC (RBC) [Mass/Vol] 33.1 g/dL Normal 30.5-36.0 [facility] Comment on above: Order Comment: Speci men Type: BLOOD SPECIMENOrdering Facility: [facility] Address: [address] Performed By: #### 5 7021-8 ####[facility] [id number] [place] [address] [place] MCV (RBC) [Entitic vol] 104.0 fL High 80.0-100.0 C [facility] Comment on above: Order Comment: Speci men Type: BLOOD SPECIMENOrdering Facility: [facility] Address: [address] Performed By: #### 5 7021-8 ####[facility] [id number] [place] [address] [place] Monocytes (Bld) [#/Vol] 0.27 10*3/uL Normal <0.87 [facility] Comment on above: Order Comment: Speci men Type: BLOOD SPECIMENOrdering Facility: [facility] Address: [address] [place] [address] Performed By: #### 5 7021-8 ####[facility] [id number] [address] [place] Monocytes/100 WBC (Bld) 3.0 % Normal C [facility] Comment on above: Order Comment: Speci men Type: BLOOD SPECIMENOrdering Facility: [facility] Address: [address] Performed By: #### 5 7021-8 ####[facility] [id number] [place] [address] [place] MYELO% 3.0 % Normal [facility] Comment on above: Order Comment: Speci men Type: BLOOD SPECIMENOrdering Facility: [facility] Address: [address] [place] [address] Performed By: #### 5 7021-8 ####[facility] [id number] [place] [address] [place] Neutrophils (Bld) [#/Vol] 6.33 10*3/uL Normal 1.45-7.50 [facility] Comment on above: Order Comment: Speci men Type: BLOOD SPECIMENOrdering Facility: [facility] Address: [address] [place] [address] Performed By: #### 5 7021-8 ####[facility] [id number] [place] [address] [place] Neutrophils/100 WBC (Bld) 70.0 % Normal [facility] Comment on above: Order Comment: Speci men Type: BLOOD SPECIMENOrdering Facility: [facility] Address: [address] [place] [address] Performed By: #### 5 7021-8 ####[facility] [id number] [place] [address] [place] Nucleated RBC (Bld) [#/Vol] 10*3/uL Normal <0.01 [facility] Comment on above: Order Comment: Speci men Type: BLOOD SPECIMENOrdering Facility: [facility] Address: [address] [place], [place] [address] Performed By: #### 5 7021-8 ####[facility] [id number] [place] [address] [place] Nucleated RBC/100 WBC (Bld) [Ratio] 0.0 /100 WBC Normal [facility] Comment on above: Order Comment: Speci men Type: BLOOD SPECIMENOrdering Facility: [facility] Address: [address] [place] [address] Performed By: #### 5 7021-8 ####[facility] [id number] [place] [address] [place] Platelet mean volume (Bld) [Entitic vol] 10.1 fL Normal 9.0-12.7 [facility] Comment on above: Order Comment: Speci men Type: BLOOD SPECIMENOrdering Facility: [facility] Address: [address] [place] [address] Performed By: #### 5 7021-8 ####[facility] [id number] [place] [address] [place] Platelets (Bld) [#/Vol] 393 10*3/uL Normal 150-400 [facility] Comment on above: Order Comment: Speci men Type: BLOOD SPECIMENOrdering Facility: [facility] Address: [address] [place] [address] Performed By: #### 5 7021-8 ####[facility] [id number] [place] [address] [place] Platelets Estimate (Bld) [#/Vol] Adequate Normal [facility] Comment on above: Order Comment: Speci men Type: BLOOD SPECIMENOrdering Facility: [facility] Address: [address] [place] [id number] Performed By: #### 5 7021-8 ####[facility] [id number] [place] [address] [place] Polychromasia LM Ql (Bld) Slight Normal [facility] Comment on above: Order Comment: Speci men Type: BLOOD SPECIMENOrdering Facility: [facility] Address: [address] [place] [address] Performed By: #### 5 7021-8 ####[facility] [id number] [place] [address] [place] RBC (Bld) [#/Vol] 4.21 10*6/uL Normal 3.90-5.[address] [facility] Comment on above: Order Comment: Speci men Type: BLOOD SPECIMENOrdering Facility: [facility] Address: [address] [place] [address] Performed By: #### 5 7021-8 ####[facility] [id number] [place] [address] [place] RED CELL MORPH Reviewed: unremarkable Normal [facility] Comment on above: Order Comment: Speci men Type: BLOOD SPECIMENOrdering Facility: [facility] Address: [address] [place] [address] Performed By: #### 5 7021-8 ####[facility] [id number] [place] [address] [place] WBC (Bld) [#/Vol] 9.04 10*3/uL Normal 3.70-11.[address] [facility] Comment on above: Order Comment: Speci men Type: BLOOD SPECIMENOrdering Facility: [facility] Address: [address] [place] [address] Performed By: #### 5 7021-8 ####[facility] [id number] [address] [place] WBC Left Shift Ql (Bld) Present Normal [facility] Comment on above: Order Comment: Speci men Type: BLOOD SPECIMENOrdering Facility: [facility] Address: [address] [place] [address] Performed By: #### 5 7021-8 ####[facility] [id number] [address] [place] CNOVon 04-12-2023 CNOV Office Visit (GASTA5 ) -------- RICA STOUT ([id number]) 1995 F Date Time Provider Department 04/12/23 1:00 PM JEANNIE JARVIS GASTA5 During your visit today, we recorded the following information about you: Pulse Blood pressure Weight Height 112/minute 132/88 60.4 kg 1.626 m Jeannie Jarvis APRN.SYSTEM SUPPORT SPECIALIST 05/24/2023 12:39 PM Signed NAME: Rica Stout [...] hematemesis, hematochezia, ascites, episodes of confusion. IMAGING/PROCEDURES: [facility] 03/22/23: No past surgical history on file. [...] 9.0 Alb (more content not included)... Normal [facility] Centromere Ab IF Ql (S)on Centromere Ab Qn (S) <0.2 Normal <1.0 [facility] Comment on above: Order Comment: Speci men Type: BLOOD SPECIMENOrdering Facility: [facility] Address: [address] [place] [address] Result Comment: Anti -centromere antibody is used as in aid in diagnosis of systemic sclerosis. Clinical correlation is required. Test Methodology: Multiplex flow immunoassay. Performed By: #### 1 1565-9, 84140-1, 45213-9, 07296-5, 64363-9, 61324-0, ANAIFR, 38840-8, 74922-8, 48463-4, 70450-1, 20518-8 ####[facility] [id number] [address] STATES OF [facility] CENTROMERE AB QUAL Negative Normal Negative [facility] Comment on above: Order Comment: Speci lowell Type: BLOOD SPECIMENOrdering Facility: [facility] Address: [address] [place] [address] Performed By: #### 1 1565-9, 79360-5, 90912-1, 40066-1, 07499-6, 19267-9, ANAIFR, 73940-7, 63479-2, 06615-6, 11825-3, 00936-4 ####[facility] [id number] [place] [address] [place] Ceruloplasmin SerPl-mCncon 0 04-12-2023 Ceruloplasmin [Mass/Vol] 29 mg/dL Normal 16-45 [facility] Comment on above: Order Comment: Speci men Type: BLOOD SPECIMENOrdering Facility: [facility] Address: [address] [place] [address] Performed By: #### 1 825-9, 41225-2, 4-4, 54508-8 ####[facility] [id number] [place] [address] [place] Chromatin Ab Qnon 04-12-2023 CHROMATIN AB QUAL Negative Normal Negative [facility] Comment on above: Order Comment: Speci men Type: BLOOD SPECIMENOrdering Facility: [facility] Address: [address] [place] [address] Performed By: #### 1 1565-9, 14547-9, 50501-2, 81289-0, 97504-1, 53870-8, ANAIFR, 80254-5, 55627-6, 85174-0, 75014-1, 82687-1 ####[facility] [id number] [place] [address] [place] Chromatin Ab SerPl-aCncon Chromatin Ab Qn <0.2 Normal <1.0 [facility] Comment on above: Order Comment: Speci men Type: BLOOD SPECIMENOrdering Facility: [facility] Address: [address] [place] [address] Result Comment: Test Methodology: Multiplex flow immunoassay. Performed By: #### 1 1565-9, 44606-5, 77257-9, 78509-6, 48997-1, 15911-9, ANAIFR, 04719-3, 81723-1, 77832-5, 11892-4, 00674-1 ####[facility] [id number] [place] [address] [place] OMA Jo1 Ab Ser-aCncon 2022 Taylor-1 extractable nuclear Ab Qn (S) <0.2 Normal <1.0 [facility] Comment on above: Order Comment: Speci men Type: BLOOD SPECIMENOrdering Facility: [facility] Address: [address] [place] [address] Performed By: #### 1 1565-9, 75039-1, 99759-7, 84089-9, 41233-4, 02658-3, ANAIFR, 89295-5, 67382-9, 20852-9, 30499-1, 58119-8 ####[facility] [id number] [place] [address] [place] OMA INDUSTRIAL SAFETY ENGINEER Ab Ser-aCncon 2022 Ribonucleoprotein extractable nuclear Ab Qn (S) <0.2 Normal <1.0 [facility] Comment on above: Order Comment: Speci men Type: BLOOD SPECIMENOrdering Facility: [facility] Address: [address] [place] [address] Performed By: #### 1 1565-9, 96939-3, 39367-0, 86517-0, 66437-4, 27875-9, ANAIFR, 36060-5, 26245-8, 36211-5, 12497-0, 67277-7 ####[facility] [id number] [place] [address] [place] Ribonucleoprotein extractable nuclear Ab Qn (S) 0.3 AI Normal <1.0 [facility] Comment on above: Order Comment: Speci men Type: BLOOD SPECIMENOrdering Facility: [facility] Address: [address] [place] [address] Performed By: #### 1 1565-9, 67189-4, 83710-9, 98683-4, 82437-5, 60688-3, ANAIFR, 09153-4, 85783-3, 99824-5, 04579-9, 26166-4 ####[facility] [id number] [place] [address] [place] OMA SM IgG Ser-aCncon 2022 Rico extractable nuclear IgG Qn (S) <0.2 Normal <1.0 [facility] Comment on above: Order Comment: Speci men Type: BLOOD SPECIMENOrdering Facility: [facility] Address: [address] [place] [address] Performed By: #### 1 1565-9, 43755-9, 63038-0, 38273-2, 61309-2, 09287-2, ANAIFR, 46814-1, 69050-8, 19146-6, 20528-9, 15731-3 ####[facility] [id number] [place] [address] [place] OMA SS-A Ab Ser-aCncon 04-12 Sjogrens syndrome-A extractable nuclear Ab Qn (S) <0.2 Normal <1.0 [facility] Comment on above: Order Comment: Speci men Type: BLOOD SPECIMENOrdering Facility: [facility] Address: [address] [place] [address] Result Comment: Test Methodology: Multiplex flow immunoassay. Performed By: #### 1 1565-9, 72544-2, 98458-1, 19284-0, 78295-9, 88452-2, ANAIFR, 56835-2, 40632-1, 48218-8, 01656-9, 87309-8 ####[facility] [id number] [place] [address] [place] OMA SS-B Ab Ser-aCncon 04-12 Sjogrens syndrome-B extractable nuclear Ab Qn (S) <0.2 Normal <1.0 [facility] Comment on above: Order Comment: Speci men Type: BLOOD SPECIMENOrdering Facility: [facility] Address: [address] [place] [address] Result Comment: Anti -SSB (anti-La) antibody is used as an aid in diagnosis of a variety of systemic autoimmune diseases, especially for Sjogren's syndrome and systemic lupus erythematosus. Clinical correlation is required. Test Methodology: Multiplex flow immunoassay. Performed By: #### 1 1565-9, 45874-3, 78222-0, 76579-2, 16282-1, 78635-3, ANAIFR, 88248-5, 45498-7, 78272-7, 84486-7, 15967-9 ####[facility] [id number] [place] [address] [place] Ferritin SerPl-mCncon 2022 Ferritin [Mass/Vol] 667.0 ng/mL High 14.7-205.1 [facility] Comment on above: Order Comment: Speci men Type: BLOOD SPECIMENOrdering Facility: [facility] Address: [address] [place] [address] Performed By: #### 2 276-4, 68543-5, 66315-5 ####[facility] [id number] [place] [address] [place] HBV core Ab Ser Qlon 023 HBV core Ab Ql (S) Positive Abnormal Negative [facility] Comment on above: Order Comment: Speci men Type: BLOOD SPECIMENOrdering Facility: [facility] Address: [address] [place] [address] Result Comment: The result suggests either current or past infection with Hepatitis B virus. Non-specific reactivity may at times be seen with this test due to some underlying phenomena. Please correlate with HBsAg result and medical history. Performed By: #### 1 6933-4, 5195-3, 67371-7, AHAVG ####[facility]CLIA [id number] [place] [address] [place] HBV surface Ab Ql (S)on 03-23 HBV surface Ab Qn (S) 45.61 mIU/mL Normal [facility] Comment on above: Order Comment: Speci men Type: BLOOD SPECIMENOrdering Facility: [facility] Address: [address] [place] [address] Result Comment: <8 m IU/mL: No serological evidence of immunity to Hepatitis B Virus. >/= 8 to <12 mIU/mL: No serological evidence of immunity to Hepatitis B Virus. >/= 12 mIU/mL: Consistent with serological evidence of immunity to Hepatitis B Virus. Performed By: #### 1 6933-4, 5194-3, 84289-5, AHAVG ####[facility] [id number] [address] OF [facility] HBV surface Ab Ser Qlon 03-23 HBV surface Ab Ql (S) Positive Normal [facility] Comment on above: Order Comment: Speci men Type: BLOOD SPECIMENOrdering Facility: [facility] Address: [address] [place] [address] Result Comment: Cons istent with serological evidence of immunity to Hepatitis B Virus. Performed By: #### 1 6933-4, 5194-3, 46159-1, AHAVG ####[facility]CLIA [id number] [place] [address] [place] HBV surface Ag Ser Qlon 03-23 HBV surface Ag Ql (S) Negative Normal Negative [facility] Comment on above: Order Comment: Speci men Type: BLOOD SPECIMENOrdering Facility: [facility] Address: [address] [place] [address] Performed By: #### 1 6933-4, 5194-3, 88055-4, AHAVG ####[facility] [id number] [place] [address] [place] HCV Ab Ser Qlon 04-12-2023 HCV Ab Ql (S) Negative Normal Negative [facility] Comment on above: Order Comment: Jim etienne Type: BLOOD SPECIMENOrdering Facility: [facility] Address: [address] [place] [address] Result Comment: The result suggests no evidence of active infection with Hepatitis C virus. Should recent infection be suspected, repeat testing may be considered 4-6 weeks after this draw. Performed By: #### 1 6128-1 ####[facility] [id number] [place] [address] [place] HEPATITIS A ANTIBODY, IGGon 04-12-2023 HAV IgG Ql (S) Negative Normal [facility] Comment on above: Order Comment: Jim etienne Type: BLOOD SPECIMENOrdering Facility: [facility] Address: [address] [place] [address] Result Comment: No s erological evidence of immunity to Hepatitis A Virus. Performed By: #### 1 6933-4, 5195-3, 54328-1, AHAVG ####[facility] [id number] [address] [place] HFE (HEMOCHROMATOSIS)on 03-23 INTERPRETATION (HEMDNA) Normal C [facility] Comment on above: Order Comment: Jim etienne Type: BLOOD SPECIMENOrdering Facility: [facility] Address: [address] [place] [address] Result Comment: HFE (Hemochromatosis) Laboratory Accession Number: [id number] Result: C282Y: WT H63D: WT S65C: WT Interpretation: No variant detected: The DNA sample is negative for the C282Y, H63D and S65C variants of the HFE gene. Variants at these loci are commonly associated with hereditary hemochromatosis (HH). Approximately 13% of clinically affected individuals may have this negative result, suggesting other etiologies for hereditary hemochromatosis. Methodology: Patient DNA is evaluated for C282Y (c.845G>A, p.Oqy255Goa, NM_000410.3), H63D (c.187C>G, p.Kdb78Yvd, NM_000410.3) and S65C variant (c.193A>T, p.Aao89Xcg, NM_000410.3) missense variants in the HFE gene (NM_000410.3, GRCh37(hg19)) by multiplex polymerase chain reaction (PCR) followed by melting curve analysis. Disclaimer: This test was developed and its performance characteristics determined by [facility] [place] ([facility] It has not been cleared or approved by the FDA. [facility] is regulated under CLIA as certified to perform high- complexity testing. This test is used for clinical purposes. It should not be regarded as investigational or for research. Testing and interpretation performed at [facility], [address] [place] [address]. [place] Number: [id number] As reviewed by Saritha Swan MD Performed By: #### H EMDNA ####[facility] LIMSCLIA [id number] [address] OF [facility] HbA1c (Bld)on 04-12-2023 Average glucose Estimated from glycated hemoglobin (Bld) [Mass/Vol] 85 mg/dL Normal [facility] Comment on above: Order Comment: Speccari etienne Type: BLOOD SPECIMENOrdering Facility: [facility] Address: [address] [place] [address] Result Comment: eAG: (Estimated average glucose) is a calculated value from HgbA1c and is electronics parts sales representative of the average blood glucose level in the last 2-3 month period. Performed By: #### 5 5454-3 ####[facility] [id number] [address] OF [facility] HbA1c (Bld) [Mass fraction] 4.6 % Normal 4.3-5.6 [facility] Comment on above: Order Comment: Speccari etienne Type: BLOOD SPECIMENOrdering Facility: [facility] Address: [address] [address] Result Comment: Amer ican Diabetes Association guidelines indicate that patients with HgbA1c in the range 5.7-6.4% are at increased risk for development of diabetes, and intervention by lifestyle modification may be beneficial. HgbA1c greater or equal to 6.5% is considered diagnostic of diabetes. Performed By: #### 5 5454-3 ####[facility]CLIA [id number] [place] [address] [place] Hepatic function 2000 panelo n 04-12-2023 Albumin [Mass/Vol] 4.4 g/dL Normal 3.9-4.9 [facility] Comment on above: Order Comment: Speci men Type: BLOOD SPECIMENOrdering Facility: [facility] Address: [address] [place] [address] Performed By: #### 1 825-9, 44355-8, 2063-10, 88750-7 ####[facility] LABIA [id number] [place] [address] [place] ALP [Catalytic activity/Vol] 78 U/L Normal 34-123 [facility] Comment on above: Order Comment: Speci men Type: BLOOD SPECIMENOrdering Facility: [facility] Address: [address] [place] [address] Performed By: #### 1 825-9, 91779-8, 2063-10, 97561-2 ####[facility] LABIA [id number] [place] [address] [place] ALT [Catalytic activity/Vol] 81 U/L High 7-38 [facility] Comment on above: Order Comment: Speci men Type: BLOOD SPECIMENOrdering Facility: [facility] Address: [address] [place] [address] Performed By: #### 1 825-9, 40979-6, 2063-10, 76942-1 ####[facility] LABIA [id number] [place] [address] [place] AST [Catalytic activity/Vol] 76 U/L High 13-35 [facility] Comment on above: Order Comment: Speci men Type: BLOOD SPECIMENOrdering Facility: [facility] Address: [address] [place], [place] [address] Performed By: #### 1 825-9, 50854-6, 2063-10, ####[facility] LABCLIA [id number] [address] [place] Bilirubin [Mass/Vol] 0.5 mg/dL Normal 0.2-1.3 [facility] Comment on above: Order Comment: Speci men Type: BLOOD SPECIMENOrdering Facility: [facility] Address: [address] [place] [address] Performed By: #### 1 825-9, 51188-4, 2063-10, ####[facility] LABIA [id number] [place] [address] [place] Bilirubin.conjugated [Mass/Vol] mg/dL Normal <0.2 [facility] Comment on above: Order Comment: Speci men Type: BLOOD SPECIMENOrdering Facility: [facility] Address: [address] [place] [address] Performed By: #### 1 825-9, 27339-4, 2063-10, ####[facility] LABIA [id number] [place] [address] [place] Protein [Mass/Vol] 7.7 g/dL Normal 6.3-8.0 [facility] Comment on above: Order Comment: Speci men Type: BLOOD SPECIMENOrdering Facility: [facility] Address: [address] [place], [place] [address] Performed By: #### 1 825-9, 35172-3, 2063-10, ####[facility] LABIA [id number] [place] [address] [place] Iron and Iron binding capaci ty panelon 04-12-2023 Iron [Mass/Vol] 138 ug/dL Normal 41-186 [facility] Comment on above: Order Comment: Speci men Type: BLOOD SPECIMENOrdering Facility: [facility] Address: [address] [address] Performed By: #### 2 276-4, 55663-8, 38529-7 ####[facility] LABCLIA [id number] [place] [address] [place] Iron binding capacity [Mass/Vol] 408 ug/dL High 232-386 [facility] Comment on above: Order Comment: Speci men Type: BLOOD SPECIMENOrdering Facility: [facility] Address: [address] [address] Performed By: #### 2 276-4, 05148-7, 65932-4 ####[facility]CLIA [id number] [place] [address] [place] Iron/TIBC [Molar ratio] 33.8 % Normal 15.0-57.0 C [facility] Comment on above: Order Comment: Speci men Type: BLOOD SPECIMENOrdering Facility: [facility] Address: [address] [address] Performed By: #### 2 276-4, 50779-9, 24491-1 ####[facility]CLIA [id number] [place] [address] [place] Taylor-1 extractable nuclear Ab Qn (S)on 04-12-2023 TAYLOR 1 ANTIBODY QUAL Negative Normal Negative [facility] Comment on above: Order Comment: Speci men Type: BLOOD SPECIMENOrdering Facility: [facility] Address: [address] [address] Result Comment: Anti -TAYLOR-1 antibody is used as an aid in diagnosis of polymyositis and dermatomyositis especially with pulmonary involvement. A negative result cannot rule out polymyositis or dermatomyositis. Clinical correlation is required. Test Methodology: Multiplex flow immunoassay. Performed By: #### 1 1565-9, 21300-4, 07753-1, 52641-7, 66488-9, 77014-6, ANAIFR, 87550-2, 81349-8, 27301-1, 87374-4, 72476-0 ####[facility] LABCLIA [id number] LILLIAN RAMIREZ [id number] [place] LKM ABon 04-12-2023 LIVER-KIDNEY MICROSOMAL ABS <1:20 Normal <1:20 [facility] Comment on above: Order Comment: Speci men Type: BLOOD SPECIMENOrdering Facility: [facility] Address: [address] [phone] Result Comment: INTE RPRETIVE INFORMATION: Zygky-Vbxstp-Hrxxtwilx Abs, IgG Liver-Kidney Microsome IgG antibody (anti-LKM), as detected by indirect immunofluorescent antibody (IFA) techniques, may be observed in patients with autoimmune hepatitis type 2 (AIH-2), AIH-2 associated with autoimmune hncdjfrznsshoiupjn-aipqdaxxibh-adqjqvgari dystrophy (APECED), viral hepatitis C or D, and some forms of drug-induced hepatitis. This IFA does not differentiate among the four types of LKM antibodies (LKM-1, LKM-2, LKM-3, and a fourth type that recognizes CY and CY antigens). Of these, anti-LKM-1 (cytochrome [id number]) IgG antibodies are considered specific for AIH-2. This test was developed and its performance characteristics determined by [facility]. It has not been cleared or approved by the US Food and Drug Administration. This test was performed in a CLIA certified laboratory and is intended for clinical purposes. Performed By: [facility] [address] [place] [address] Bakery And Deli Sales Manager: Luis Blunt MD, PhD CLIA Number: [id number] Performed By: #### L KM ####[facility] LABORATORIESIA [id number] [place] [address] Lipid 1996 panelon 3 Cholesterol [Mass/Vol] 272 mg/dL High <200 [facility] Comment on above: Order Comment: Speci men Type: BLOOD SPECIMENOrdering Facility: [facility] Address: [address] [place] [address] Result Comment: <200 mg/dL, Desirable 200-239 mg/dL, Borderline high >239 mg/dL, High Performed By: #### 2 276-4, 12501-4, 91046-9 ####[facility] LABCLIA [id number] [address] STATES OF [facility] Cholesterol in HDL [Mass/Vol] 51 mg/dL Normal >39 [facility] Comment on above: Order Comment: Speci men Type: BLOOD SPECIMENOrdering Facility: [facility] Address: [address] [address] Result Comment: 40-5 9 mg/dL, Acceptable >59 mg/dL, High: Negative risk factor for coronary heart disease <40 mg/dL, Low: Positive risk factor for coronary heart disease Performed By: #### 2 276-4, 83591-5, 44403-9 ####[facility]CLIA [id number] [address] [place] Cholesterol in LDL [Mass/Vol] 173 mg/dL High <100 [facility] Comment on above: Order Comment: Speci men Type: BLOOD SPECIMENOrdering Facility: [facility] Address: [address] [address] Result Comment: <100 mg/dL, Optimal 100-129 mg/dL, Near optimal/above optimal 130-159 mg/dL, Borderline high 160-189 mg/dL, High >189 mg/dL, Very high Secondary prevention optimal LDL Cholesterol levels are recommended to be < 70 mg/dL Performed By: #### 2 276-4, 92773-7, 83197-4 ####[facility]CLIA [id number] [address] [place] Cholesterol in LDL/Cholesterol in HDL [Mass ratio] 3.39 {ratio} High <2.54 [facility] Comment on above: Order Comment: Speci men Type: BLOOD SPECIMENOrdering Facility: [facility] Address: [address] [address] Result Comment: Refe rence: 1. National Cholesterol Education Program ATP III Guideline At-A-Glance Quick Desk Reference: National Heart, Lung, and Blood [place]. National Institutes of Health. 2001: NIH Publication No. 01-3305. 2. An International Atherosclerosis Society position paper: global recommendations for the management of dyslipidemia: executive summary, Atherosclerosis. 2014: 232(2):410-413. Performed By: #### 2 276-4, 61058-2, 25211-0 ####[facility] LABCLIA [id number] [place] [address] [place] Cholesterol in VLDL [Mass/Vol] 48 mg/dL High <30 [facility] Comment on above: Order Comment: Speci men Type: BLOOD SPECIMENOrdering Facility: [facility] Address: [address] [place] [address] Performed By: #### 2 276-4, 02310-1, 08716-9 ####[facility] LABCLIA [id number] [place] [address] [place] Cholesterol non HDL [Mass/Vol] 221 mg/dL High <130 [facility] Comment on above: Order Comment: Jim etienne Type: BLOOD SPECIMENOrdering Facility: [facility] Address: [address] [place] [address] Result Comment: <130 mg/dL, Optimal 130-159 mg/dL, Near optimal/above optimal 160-189 mg/dL, Borderline high 190-219 mg/dL, High >219 mg/dL, Very high Secondary prevention optimal non HDL Cholesterol levels are recommended to be <100 mg/dL Performed By: #### 2 276-4, 35600-5, 78476-9 ####[facility] LABIA [id number] [place] [address] [place] Cholesterol.total/Shannon sterol in HDL [Mass ratio] 5.33 {ratio} High <5.10 [facility] Comment on above: Order Comment: Liliami lowell Type: BLOOD SPECIMENOrdering Facility: [facility] Address: [address] [place] [address] Performed By: #### 2 276-4, 32252-4, 86385-1 ####[facility]CLIA [id number] [address] [place] FASTING TIME 12 hrs Normal [facility] Comment on above: Order Comment: Speci men Type: BLOOD SPECIMENOrdering Facility: [facility] Address: [address] [place] [address] Performed By: #### 2 276-4, 30472-4, 40072-1 ####[facility] LABIA [id number] [address] [place] Triglyceride [Mass/Vol] 238 mg/dL High <150 C [facility] Comment on above: Order Comment: Speci men Type: BLOOD SPECIMENOrdering Facility: [facility] Address: [address] [place] [address] Result Comment: <150 mg/dL, Normal 150-199 mg/dL, Borderline high 200-499 mg/dL, High >499 mg/dL, Very high Performed By: #### 2 276-4, 17234-0, 42013-8 ####[facility] LABIA [id number] [address] [place] Mitochondria Ab IF Ql (S)on 04-12-2023 Mitochondria M2 Ab IA Qn (S) 2.4 Units Normal <=20.0 [facility] Comment on above: Order Comment: Speci men Type: BLOOD SPECIMENOrdering Facility: [facility] Address: [address] [place] [address] Performed By: #### 1 1565-9, 76731-1, 26599-3, 62930-8, 50539-8, 78545-5, ANAIFR, 11153-9, 36048-5, 48883-6, 15318-2, 63951-8 ####[facility] LABIA [id number] [address] [place] Mitochondria M2 Ab Ql (S) Negative Normal Negative [facility] Comment on above: Order Comment: Speci men Type: BLOOD SPECIMENOrdering Facility: [facility] Address: [address] [place] [address] Result Comment: Anti -mitochondrial antibody test is used as an aid in diagnosis of primary biliary cholangitis. Clinical correlation is required. Performed By: #### 1 1565-9, 87617-5, 34395-8, 90461-3, 72621-5, 29098-5, ANAIFR, 17932-6, 92488-0, 87037-8, 89602-7, 26642-6 ####[facility] LABCLIA [id number] [place] [address] [facility] [place] PHOSPHATIDYLETHANOL (PETH)on 04-12-2023 EER PETH See Note Normal [facility] Comment on above: Order Comment: Speci men Type: BLOOD SPECIMENOrdering Facility: [facility] Address: [address] [place] [address] Result Comment: Auth orized individuals can access the [employer] Enhanced Report using the following link: [email or web address] Performed By: [facility] [address] [place] [address] Bakery And Deli Sales Manager: Luis Blunt MD, PhD CLIA Number: [id number] Performed By: #### P ETH ####[facility] [id number] [place] [address] PETH 16:0/18.2 (PLPETH) 228 ng/mL Normal [facility] Comment on above: Order Comment: Speci men Type: BLOOD SPECIMENOrdering Facility: [facility] Address: [address] [place] [address] Performed By: #### P ETH ####[facility]IES[facility]IA [id number] [place] [address] PETH 16:0/18:1 (POPETH) 243 ng/mL Normal [facility] Comment on above: Order Comment: Speci men Type: BLOOD SPECIMENOrdering Facility: [facility] Address: [place] [address] Result Comment: INTE RPRETIVE INFORMATION:Phosphatidylethanol (PEth), Whole [...] developed and its performance characteristics determined by [facility]. It has not been cleared or approved by the U.S. Food and Drug Administration. This test was performed in a CLIA-certified laboratory and is intended for clinical purposes. Performed By: #### P ETH ####[facility] [id number] [place] [address] PT panel Coag (PPP)on 2022 INR Coag (PPP) [Relative time] 1.0 {INR} Normal 0.9-1.3 [facility] Comment on above: Order Comment: Jim etienne Type: BLOOD SPECIMENOrdering Facility: [facility] Address: [address] [place], [place] [id number] Result Comment: Adrienne min K Antagonist (VKA) Therapeutic Range: INR 2 to 3 (Target INR of 2.5) Note: For patients treated with VKA drugs, such as warfarin, the [place] [employer] 2012 Guideline recommends [...] to 3.5 (target INR of 3). Arlet PONCE, et al. Chest 2012, 141:7S-47S Mamadou RA, et al. JAC 2017, 70: 252-289 Performed By: #### 3 4528-0 ####[facility] [id number] [place] [address] [place] PT Coag (PPP) [Time] 10.4 s Normal 9.7-13.0 [facility] Comment on above: Order Comment: Jim etienne Type: BLOOD SPECIMENOrdering Facility: [facility] Address: [address] [place] [address] Performed By: #### 3 4528-0 ####[facility] LABIA [id number] [place] [address] [place] Ribonucleoprotein extractabl e nuclear Ab Qn (S)on 04-12-2023 ANTI-INDUSTRIAL SAFETY ENGINEER QUAL Negative Normal Negative [facility] Comment on above: Order Comment: Jim etienne Type: BLOOD SPECIMENOrdering Facility: [facility] Address: [address] [address] Performed By: #### 1 1565-9, 87951-2, 15477-6, 64670-2, 63952-7, 41705-7, ANAIFR, 76240-4, 80661-4, 75968-7, 68265-6, 50951-4 ####[facility] LABIA [id number] [place] [address] [place] RIBOSOMAL INDUSTRIAL SAFETY ENGINEER QUAL Negative Normal Negative [facility] Comment on above: Order Comment: Speci men Type: BLOOD SPECIMENOrdering Facility: [facility] Address: [address] [place] [address] Result Comment: Anti -Ribosomal RNA (Ribosomal P) antibody is used as an aid in diagnosis of systemic autoimmune diseases especially systemic lupus erythematosus and mixed connective tissue disease. Cross-reactivity with Anti-rico antibody is not uncommon. Clinical correlation is required. Test Methodology: Multiplex flow immunoassay. Performed By: #### 1 1565-9, 25548-0, 96075-0, 63689-2, 41676-8, 86797-9, ANAIFR, 65158-2, 73066-1, 46771-1, 43081-6, 67348-8 ####[facility] [id number] [place] [address] [place] SCL-70 extractable nuclear I gG IA Qn (S)on 04-12-2023 SCLERODERMA AB QUAL Negative Normal Negative [facility] Comment on above: Order Comment: Speci men Type: BLOOD SPECIMENOrdering Facility: [facility] Address: [address] [address] Performed By: #### 1 1565-9, 80414-5, 92815-3, 39302-5, 43991-6, 76461-8, ANAIFR, 69502-6, 40817-4, 11706-0, 57888-3, 11332-2 ####[facility] LABIA [id number] [place] [address] [place] SCLERODERMA IGG AB <0.2 Normal <1.0 [facility] Comment on above: Order Comment: Speci men Type: BLOOD SPECIMENOrdering Facility: [facility] Address: [address] [place] [address] Result Comment: Scl- 70/Scleroderma antibody test is used as an aid in diagnosis of systemic sclerosis especially the diffuse cutaneous form. A negative result cannot rule out systemic sclerosis. The final interpretation should consider clinical picture and other test results such as anti-centromere antibody. Test Methodology: Multiplex flow immunoassay. Performed By: #### 1 1565-9, 30014-6, 90713-2, 16445-5, 12170-2, 45856-2, ANAIFR, 44672-2, 44674-8, 26018-6, 66624-7, 76839-6 ####[facility]IA [id number] [address] [place] Sjogrens syndrome-A extracta ble nuclear Ab Qn (S)on 04-12-2023 SSA ANTIBODY QUAL Negative Normal Negative [facility] Comment on above: Order Comment: Speci men Type: BLOOD SPECIMENOrdering Facility: [facility] Address: [address] [place] [address] Performed By: #### 1 1565-9, 74174-1, 82311-1, 98521-1, 09779-5, 46600-5, ANAIFR, 76421-5, 27883-4, 81593-6, 11537-4, 06013-2 ####[facility] [id number] [place] [address] [place] AYSHA Sjogrens syndrome-B extracta ble nuclear Ab Qn (S)on 04-12-2023 SSB ANTIBODY QUAL Negative Normal Negative [facility] Comment on above: Order Comment: Speci men Type: BLOOD SPECIMENOrdering Facility: [facility] Address: [address] [place] [address] Performed By: #### 1 1565-9, 67848-7, 84743-3, 16087-7, 81911-1, 14096-2, ANAIFR, 22893-5, 18446-8, 04692-6, 34472-2, 93277-6 ####[facility] [id number] [place] [address] [place] Rico extractable nuclear Ig G Qn (S)on 04-12-2023 SM ANTIBODY QUAL Negative Normal Negative [facility] Comment on above: Order Comment: Speci men Type: BLOOD SPECIMENOrdering Facility: [facility] Address: [address] [place] [address] Result Comment: Anti -Sm (Rico) antibody is used as an aid in diagnosis of systemic lupus erythematosus and its presence is associated with renal disease. A negative result cannot rule out systemic lupus erythematosus. Clinical correlation is required. Test Methodology: Multiplex flow immunoassay. Performed By: #### 1 1565-9, 65016-4, 24084-0, 46757-8, 51179-8, 90167-2, ANAIFR, 19313-5, 23453-4, 04503-5, 24702-0, 87823-8 ####[facility] [id number] [place] [address] [place] Smooth muscle Ab Ql (S)on ACTIN SMOOTH MUSCLE IGG QUALITATIVE Negative Normal Negative [facility] Comment on above: Order Comment: Jim etienne Type: BLOOD SPECIMENOrdering Facility: [facility] Address: [address] [address] Performed By: #### 1 1565-9, 66503-1, 53934-2, 72596-2, 81787-2, 02997-1, ANAIFR, 22097-5, 81983-4, 51699-3, 12132-6, 44602-8 ####[facility] [id number] [place] [address] [place] ACTIN SMOOTH MUSCLE IGG QUANTITATIVE 3 Units Normal <20 [facility] Comment on above: Order Comment: Speci men Type: BLOOD SPECIMENOrdering Facility: [facility] Address: [address] [place] [address] Performed By: #### 1 1565-9, 98642-2, 24377-5, 48967-0, 84689-5, 99852-8, ANAIFR, 60792-4, 68506-5, 83198-6, 39064-8, 23638-7 ####[facility] [id number] [place] dsDNA Ab Ser IA-aCncon 04-12 DNA double strand Ab IA Qn (S) <12 Normal <30 [facility] Comment on above: Order Comment: Speci men Type: BLOOD SPECIMENOrdering Facility: [facility] Address: [address] [place] [address] Result Comment: Nega tive for ds DNA Antibodies. <30 IU/mL Negative 30-74 IU/mL Equivocal >74 IU/mL Positive Performed By: #### 1 1565-9, 99296-6, 94881-4, 84672-6, 86673-0, 26718-1, ANAIFR, 53787-4, 71795-1, 65402-0, 49333-5, 01823-5 ####[facility] [id number] [address] OF [place] CNPNon 04-11-2023 CNPN Telephone (GASTA5) -------- RICA STOUT ([id number]) 1995 F Date Time Provider Department 04/11/23 MARY CAGLE ([facility] GASTA5 During your visit today, we recorded the following information about you: Mary Cagle 04/11/2023 2:48 PM Signed Called Rica Stout to remind them of an appointment with Jeannie Jarvis on 04/12/23. Left Message for patient. Allergies As of Date: 04/11/2023 Noted Allergy Reaction PENICILLINS 01/28/2023 2 - Rash Date Reviewed: 01/28/2023 Reviewed by: Ghulam Villalobos, BREE - Fully Assessed Reason for Visit: Appointment [186] Problem List As Of Date: 04/11/2023 (None) Encounter Status:Closed by MARY CAGLE on 04/11/23 [facility] Telephone (GASTA5) -------- RICA STOUT ([id number]) 1995 F Date Time Provider Department 04/11/23 JEANNIE JARVIS GASTA5 During your visit today, we recorded the following information about you: Gretta Ribeiro 04/11/2023 3:29 PM Signed Received outside medical records from [facility], scanned into her chart under scanned docs tab in [employer]. Allergies As of Date: 04/11/2023 Noted Allergy Reaction PENICILLINS 01/28/2023 2 - Rash Date Reviewed: 01/28/2023 Reviewed by: Ghulam Villalobos, RN - Fully Assessed Reason for Visit: [...] Status:Closed by GRETTA RIBEIRO on 07/23/23 Normal [facility] MR cervical spine wo/w conon 04-01-2023 MR cervical spine wo/w con [facility] [place] [address] [place] [address] MRI Report Signed Patient: Rica Stout MR#: [id number] 39 : 1995 Acct:[id number] Age/Sex: 27 / F ADM Date: 03/27/23 Loc: Room: [address] [place] [address] Type: ADM IN Attending Dr: Marc Giron [...] Lowell Blake M.D.04/01/2023 5:09 PM Dictation Location: [place] [address] Transcribed By: RAJESH 04/01/231708 Dictated By: Lowell Blake II, MD 04/01/231704 Signed By: 04/01/231708 [facility] US venous duplex LE BIon US venous duplex LE BI [facility] Main [place] [address] [place] [address] Ultrasound Report Signed Patient: Rica Stout MR#: [id number] [birth year] : 1995 Acct:[id number] Age/Sex: 27 / F ADM Date: 03/27/23 Loc: Room: 7Y7160-8 Type: ADM IN Attending Dr: Marc Giron [...] veins are compressible. US/US venous duplex LE BI IMPRESSION: NO EVIDENCE FOR DEEP VEIN THROMBOSIS OR PROXIMAL SUPERFICIAL THROMBOPHLEBITIS IN THE RIGHT OR LEFT LOWER EXTREMITY. Impression dictated by: Dave Gonzalez M.D.04/01/2023 3:37 PM Dictation Location: [place] [address] Tech: Nia Hill Transcribed By: RAJESH 04/01/23 153 Dictated By: Dave Gonzalez MD 04/01/231536 Signed By: 04/01/231536 [facility] ECG 12 lead ECGon 03-31-2023 ECG 12 lead ECG [facility] [place] [address] Electrocardiograph Report Signed Patient: Rica Stout MR#: [id number] [birth year] : 1995 Acct:[id number] Age/Sex: 27 / F ADM Date: 03/27/23 Loc: Room: [address] [place] [address] Type: ADM IN Attending Dr: Marc Giron [...] Signed By Tika Lawrence MD 0 03/31/232018 [facility] Alanine aminotransferase [En zymatic activity/volume] in Serum or PlasmaOrdered By: Marc Giron on 03-28-2023 ALT [Catalytic activity/Vol] 31 U/L 7-52 [facility] Albumin [Mass/volume] in Ser um or Plasma by Bromocresol green (BCG) dye binding methoOrdered By: Marc Giron on 03-28-2023 Albumin BCG dye [Mass/Vol] 3.3 g/dL 3.5-5.7 [facility] Alkaline phosphatase [Enzyma tic activity/volume] in Serum or PlasmaOrdered By: Marc Giron on 03-28-2023 ALP [Catalytic activity/Vol] 95 U/L 34-104 [facility] Aspartate aminotransferase [ Enzymatic activity/volume] in Serum or PlasmaOrdered By: Marc Giron on 09-07-2023 AST [Catalytic activity/Vol] 55 U/L 13-39 [facility] Basophils Auto (Bld) [#/Vol] Ordered By: Marc Giron on 03-28-2023 Basophils (Bld) [#/Vol] 0.1 10*3/uL 0.0-0.2 [facility] Basophils/100 WBC Auto (Bld) Ordered By: Marc Giron on 03-28-2023 Basophils/100 WBC (Bld) 1.4 % . F [facility] Bilirubin.total [Mass/volume ] in Serum or PlasmaOrdered By: Marc Giron on 03-28-2023 Bilirubin [Mass/Vol] 0.3 mg/dL 0.3-1.0 [facility] Calcium [Mass/volume] in Ser um or PlasmaOrdered By: Marc Giron on 03-28-2023 Calcium [Mass/Vol] 9.2 mg/dL 8.6-10.3 [facility] Carbon dioxide, total [Moles /volume] in Serum or PlasmaOrdered By: Marc Giron on 03-28-2023 CO2 [Moles/Vol] 23.5 mmol/L 21.0-31.0 [facility] Chloride [Moles/volume] in S caitlyn or PlasmaOrdered By: Marc Giron on 03-28-2023 Chloride [Moles/Vol] 106 mmol/L 98-107 [facility] Complete Blood Count Auto Di ffon 03-28-2023 Basophils (Bld) [#/Vol] 0.1 10*3/uL Normal 0.0-0.2 [facility] Comment on above: Result Comment: PERF ORMED BY: [place] [address] PATHOLOGIST CHIROPRACTIC TEACHER RUIZ CLIFTON M.D. Performed By: #### P P, PLT #### [facility] [address] [place] [address] Basophils/100 WBC (Bld) 1.4 % Normal . F [facility] Comment on above: Performed By: #### P P, PLT #### [facility] [address] [place] [address] [place] Eosinophils (Bld) [#/Vol] 0.3 10*3/uL Normal 0.0-0.45 [facility] Comment on above: Performed By: #### P P, PLT #### [address] Eosinophils/100 WBC (Bld) 5.0 % Normal . [facility] Comment on above: Performed By: #### P P, PLT #### [address] Erythrocyte distribution width (RBC) [Ratio] 14.1 % Normal 11.9-15.3 [facility] Comment on above: Performed By: #### P P, PLT #### [address] Hematocrit (Bld) [Volume fraction] 36.2 % Normal 34.0-46.4 [facility] Comment on above: Performed By: #### P P, PLT #### [address] Hemoglobin (Bld) [Mass/Vol] 12.2 g/dL Normal 11.8-15.4 [facility] Comment on above: Performed By: #### P P, PLT #### [address] Lymphocytes (Bld) [#/Vol] 2.1 10*3/uL Normal 1.00-4.8 [facility] Comment on above: Performed By: #### P P, PLT #### [address] Lymphocytes/100 WBC (Bld) 30.9 % Normal . [facility] Comment on above: Performed By: #### P P, PLT #### [address] MCH (RBC) [Entitic mass] 36.4 pg High 24.7-34.3 [facility] Comment on above: Performed By: #### P P, PLT #### [address] MCV (RBC) [Entitic vol] 107.9 fL High 80-100 [facility] Comment on above: Performed By: #### P P, PLT #### [facility] [address] Mean Corpuscular HGB Conc 33.7 g/dL Normal 32.0-35.0 [facility] Comment on above: Performed By: #### P P, PLT #### [facility] [address] [place] [address] [place] Monocytes (Bld) [#/Vol] 0.5 10*3/uL Normal 0.0-0.8 [facility] Comment on above: Performed By: #### P P, PLT #### [facility] [address] Monocytes/100 WBC (Bld) 7.5 % Normal . F [facility] Comment on above: Performed By: #### P P, PLT #### [address] Neutrophils (Bld) [#/Vol] 3.7 10*3/uL Normal 1.8-7.7 [facility] Comment on above: Performed By: #### P P, PLT #### [address] Neutrophils/100 WBC (Bld) 55.2 % Normal . [facility] Comment on above: Performed By: #### P P, PLT #### [place] [address] [place] NRBC% 0.2 /100{WBC} Normal 0-0.5 [facility] Comment on above: Performed By: #### P P, PLT #### [facility] [address] [place] [address] [place] Platelet mean volume (Bld) [Entitic vol] 7.2 fL Normal 6.3-10.7 [facility] Comment on above: Performed By: #### P P, PLT #### [facility] [address] [place] [address] [place] Platelets (Bld) [#/Vol] 273 10*3/uL Normal 150-450 [facility] Comment on above: Performed By: #### P P, PLT #### [address] RBC (Bld) [#/Vol] 3.35 10*6/uL Low 3.60-5.00 [facility] Comment on above: Performed By: #### P P, PLT #### [address] WBC (Bld) [#/Vol] 6.7 10*3/uL Normal 3.8-11.6 [facility] Comment on above: Performed By: #### P P, PLT #### [address] Comprehensive Metabolic Pane antione 03-28-2023 Albumin [Mass/Vol] 3.3 g/dL Low 3.5-5.7 [facility] Comment on above: Performed By: #### P P, PLT #### [address] Albumin/Globulin [Mass ratio] 1.1 {ratio} Normal [facility] Comment on above: Performed By: #### P P, PLT #### [address] ALP [Catalytic activity/Vol] 95 U/L Normal 34-104 [facility] Comment on above: Performed By: #### P P, PLT #### [address] ALT [Catalytic activity/Vol] 31 U/L Normal 7-52 [facility] Comment on above: Performed By: #### P P, PLT #### [address] Anion gap [Moles/Vol] 11.6 mmol/L Normal 6.0-15.0 [facility] Comment on above: Performed By: #### P P, PLT #### [address] AST [Catalytic activity/Vol] 55 U/L High 13-39 [facility] Comment on above: Performed By: #### P P, PLT #### [facility] [address] [place] [address] [place] Bilirubin [Mass/Vol] 0.3 mg/dL Normal 0.3-1.0 [facility] Comment on above: Performed By: #### P P, PLT #### [facility] [address] Calcium [Mass/Vol] 9.2 mg/dL Normal 8.6-10.3 [facility] Comment on above: Performed By: #### P P, PLT #### [facility] [address] Chloride [Moles/Vol] 106 mmol/L Normal 98-107 [facility] Comment on above: Performed By: #### P P, PLT #### [facility] [address] CO2 [Moles/Vol] 23.5 mmol/L Normal 21.0-31.0 [facility] Comment on above: Performed By: #### P P, PLT #### [facility] [address] [place] [address] [place] Creatinine [Mass/Vol] 0.43 mg/dL Low 0.60-1.20 [facility] Comment on above: Performed By: #### P P, PLT #### [facility] [address] [place] [address] [place] Creatinine Clr Calc Pharmacy 169.70 [facility] Comment on above: Performed By: #### P P, PLT #### [facility] [address] [place] [address] [place] GFR/1.73 sq M.predicted MDRD (S/P/Bld) [Vol rate/Area] mL/min/{1.73_m2} [facility] Comment on above: Performed By: #### P P, PLT #### [facility] [address] [place] [address] [place] Globulin (S) [Mass/Vol] 3.1 g/dL Normal [facility] Comment on above: Performed By: #### P P, PLT #### [facility] [address] [place] [address] [place] Glucose [Mass/Vol] 98 mg/dL Normal 70-100 [facility] Comment on above: Result Comment: [place] Glucose Reference Range is dependent on time and content of last meal. Glucose of more than 200 mg/dL in a nonstressed, ambulatory subject supports the diagnosis of Diabetes Mellitus. ADA recommended reference range Performed By: #### P P, PLT #### [facility] [address] Potassium [Moles/Vol] 4.1 mmol/L Normal 3.5-5.1 [facility] Comment on above: Performed By: #### P P, PLT #### [facility] [address] Protein [Mass/Vol] 6.4 g/dL Normal 6.4-8.9 [facility] Comment on above: Performed By: #### P P, PLT #### [facility] [address] [place] [address] [place] Sodium [Moles/Vol] 137 mmol/L Normal 136-145 [facility] Comment on above: Performed By: #### P P, PLT #### [facility] [address] [place] [address] [place] Urea nitrogen [Mass/Vol] 7 mg/dL Normal 7-25 [facility] Comment on above: Performed By: #### P P, PLT #### [facility] [address] [place] [address] [place] Creatinine [Mass/volume] in Serum or PlasmaOrdered By: Marc Giron on 03-28-2023 Creatinine [Mass/Vol] 0.43 mg/dL 0.60-1.20 [facility] Eosinophils Auto (Bld) [#/Vo l]Ordered By: Marc Giron on 03-28-2023 Eosinophils (Bld) [#/Vol] 0.3 10*3/uL 0.0-0.45 [facility] Eosinophils/100 WBC Auto (Bl d)Ordered By: Marc Giron on 09-07-2023 Eosinophils/100 WBC (Bld) 5.0 % . [facility] Erythrocyte distribution wid th Auto (RBC) [Ratio]Ordered By: Marc Giron on 03-28-2023 Erythrocyte distribution width (RBC) [Ratio] 14.1 % 11.9-15.3 [facility] Globulin Calc (S) [Mass/Vol] Ordered By: Marc Giron on 03-28-2023 Globulin (S) [Mass/Vol] 3.1 g/dL F [facility] Glucose [Mass/volume] in Ser um or PlasmaOrdered By: Marc Giron on 03-28-2023 Glucose [Mass/Vol] 98 mg/dL 70-100 [facility] Comment on above: ADA recommended refe rence rangeRandom Glucose Reference Range is dependent on time and content of last meal. Glucose of more than 200 mg/dL in a nonstressed, ambulatory subject supports the diagnosis of Diabetes Mellitus. Hematocrit Auto (Bld) [Volum e fraction]Ordered By: Marc Giron on 03-28-2023 Hematocrit (Bld) [Volume fraction] 36.2 % 34.0-46.4 [facility] Hemoglobin [Mass/volume] in BloodOrdered By: Marc Giron on 03-28-2023 Hemoglobin (Bld) [Mass/Vol] 12.2 g/dL 11.8-15.4 [facility] Leukocytes [#/volume] correc antoine for nucleated erythrocytes in Blood by Automated counOrdered By: Marc Giron on 03-28-2023 WBC corrected for nucl RBC Auto (Bld) [#/Vol] 6.7 10*3/uL 3.8-11.6 [facility] Lymphocytes Auto (Bld) [#/Vo l]Ordered By: Marc Giron on 03-28-2023 Lymphocytes (Bld) [#/Vol] 2.1 10*3/uL 1.00-4.8 [facility] Lymphocytes/100 WBC Auto (Bl d)Ordered By: Marc Giron on 03-28-2023 Lymphocytes/100 WBC (Bld) 30.9 % . [facility] MCH Auto (RBC) [Entitic mass ]Ordered By: Marc Giron on 03-28-2023 MCH (RBC) [Entitic mass] 36.4 pg 24.7-34.3 [facility] MCHC Auto (RBC) [Mass/Vol]Or dered By: Marc Giron on 03-28-2023 MCHC (RBC) [Mass/Vol] 33.7 g/dL 32.0-35.0 [facility] MCV Auto (RBC) [Entitic vol] Ordered By: Marc Giron on 03-28-2023 MCV (RBC) [Entitic vol] 107.9 fL 80-100 F [facility] Monocytes Auto (Bld) [#/Vol] Ordered By: Marc Giron on 03-28-2023 Monocytes (Bld) [#/Vol] 0.5 10*3/uL 0.0-0.8 [facility] Monocytes/100 WBC Auto (Bld) Ordered By: Marc Giron on 03-28-2023 Monocytes/100 WBC (Bld) 7.5 % . F [facility] Neutrophils Auto (Bld) [#/Vo l]Ordered By: Marc Giron on 03-28-2023 Neutrophils (Bld) [#/Vol] 3.7 10*3/uL 1.8-7.7 [facility] Neutrophils/100 WBC Auto (Bl d)Ordered By: Marc Giron on 03-28-2023 Neutrophils/100 WBC (Bld) 55.2 % . [facility] No Panel InformationOrdered By: Marc Giron on 03-28-2023 Estimated GFR (CKD-EPI) > 60.0 mL/Min [facility] Creatinine Clearance (Chem 169.70 [facility] Nucleated erythrocytes [Pres ence] in Blood by Automated countOrdered By: Marc Giron on 03-28-2023 Nucleated RBC Auto Ql (Bld) 0.2 /100{WBC} 0-0.5 [facility] Platelet mean volume Auto (B ld) [Entitic vol]Ordered By: Marc Giron on 03-28-2023 Platelet mean volume (Bld) [Entitic vol] 7.2 fL 6.3-10.7 [facility] Platelets Auto (Bld) [#/Vol] Ordered By: Marc Giron on 03-28-2023 Platelets (Bld) [#/Vol] 273 10*3/uL 150-450 [facility] Potassium [Moles/volume] in Serum or PlasmaOrdered By: Marc Giron on 03-28-2023 Potassium [Moles/Vol] 4.1 mmol/L 3.5-5.1 [facility] Prealbuminon 03-28-2023 Prealbumin [Mass/Vol] 19.3 mg/dL Normal 17.0-34.0 [facility] Comment on above: Result Comment: PERF ORMED BY: [place] [address] PATHOLOGIST CHIROPRACTIC TEACHER RUIZ CLIFTON M.D. Performed By: #### P P, PLT #### [address] Prealbumin [Mass/volume] in Serum or PlasmaOrdered By: Marc Giron on 03-28-2023 Prealbumin [Mass/Vol] 19.3 mg/dL 17.0-34.0 [facility] Protein [Mass/volume] in Ser um or PlasmaOrdered By: Marc Giron on 03-28-2023 Protein [Mass/Vol] 6.4 g/dL 6.4-8.9 [facility] RBC Auto (Bld) [#/Vol]Ordere d By: Marc Giron on 03-28-2023 RBC (Bld) [#/Vol] 3.35 10*6/uL 3.60-5.00 [facility] Serum or plasma albumin/glob ulin mass ratioOrdered By: Marc Giron on 03-28-2023 Albumin/Globulin [Mass ratio] 1.1 {ratio} [facility] Serum or plasma anion gap de terminationOrdered By: Marc Giron on 03-28-2023 Anion gap [Moles/Vol] 11.6 mmol/L 6.0-15.0 [facility] Sodium [Moles/volume] in Ser um or PlasmaOrdered By: Marc Giron on 03-28-2023 Sodium [Moles/Vol] 137 mmol/L 136-145 [facility] Urea nitrogen [Mass/volume] in Serum or PlasmaOrdered By: Marc Giron on 03-28-2023 Urea nitrogen [Mass/Vol] 7 mg/dL 7-25 [facility] WBC Auto (Bld) [#/Vol]Ordere d By: Marc Giron on 03-28-2023 WBC (Bld) [#/Vol] 6.7 10*3/uL 3.8-11.6 [facility] Alanine aminotransferase [En zymatic activity/volume] in Serum or PlasmaOrdered By: Obsharondagautam Cabreraomar on 03-24-2023 ALT [Catalytic activity/Vol] 23 U/L 7-52 [facility] Albumin [Mass/volume] in Ser um or Plasma by Bromocresol green (BCG) dye binding methoOrdered By: Obaydagautam Cabreraomar on 03-24-2023 Albumin BCG dye [Mass/Vol] 3.1 g/dL 3.5-5.7 [facility] Alkaline phosphatase [Enzyma tic activity/volume] in Serum or PlasmaOrdered By: Obsharondagautam Cabreraomar on 03-24-2023 ALP [Catalytic activity/Vol] 112 U/L 34-104 [facility] Aspartate aminotransferase [ Enzymatic activity/volume] in Serum or PlasmaOrdered By: Obaydah Daromar on 03-24-2023 AST [Catalytic activity/Vol] 48 U/L 13-39 [facility] Bilirubin.total [Mass/volume ] in Serum or PlasmaOrdered By: Obsharondah Daromar on 03-24-2023 Bilirubin [Mass/Vol] 0.5 mg/dL 0.3-1.0 [facility] Calcium [Mass/volume] in Ser um or PlasmaOrdered By: Obsharondah Daromar on 03-24-2023 Calcium [Mass/Vol] 9.0 mg/dL 8.6-10.3 [facility] Carbon dioxide, total [Moles /volume] in Serum or PlasmaOrdered By: Obsharondah Daromar on 03-24-2023 CO2 [Moles/Vol] 30.8 mmol/L 21.0-31.0 [facility] Chloride [Moles/volume] in S caitlyn or PlasmaOrdered By: Obsharondagautam Daromar on 03-24-2023 Chloride [Moles/Vol] 102 mmol/L 98-107 [facility] Comprehensive Metabolic Pane antione 03-24-2023 Albumin [Mass/Vol] 3.1 g/dL Low 3.5-5.7 [facility] Comment on above: Performed By: #### P P, PLT #### [address] Albumin/Globulin [Mass ratio] 1.0 {ratio} Normal [facility] Comment on above: Performed By: #### P P, PLT #### [facility] [address] ALP [Catalytic activity/Vol] 112 U/L High 34-104 [facility] Comment on above: Performed By: #### P P, PLT #### [address] ALT [Catalytic activity/Vol] 23 U/L Normal 7-52 [facility] Comment on above: Performed By: #### P P, PLT #### [address] Anion gap [Moles/Vol] 9.7 mmol/L Normal 6.0-15.0 [facility] Comment on above: Performed By: #### P P, PLT #### [address] AST [Catalytic activity/Vol] 48 U/L High 13-39 [facility] Comment on above: Performed By: #### P P, PLT #### [facility] [address] [place] [address] [place] Bilirubin [Mass/Vol] 0.5 mg/dL Normal 0.3-1.0 [facility] Comment on above: Performed By: #### P P, PLT #### [facility] [address] [place] [address] [place] Calcium [Mass/Vol] 9.0 mg/dL Normal 8.6-10.3 [facility] Comment on above: Performed By: #### P P, PLT #### [facility] [address] [place] [address] [place] Chloride [Moles/Vol] 102 mmol/L Normal 98-107 [facility] Comment on above: Performed By: #### P P, PLT #### [facility] [address] CO2 [Moles/Vol] 30.8 mmol/L Normal 21.0-31.0 [facility] Comment on above: Performed By: #### P P, PLT #### [facility] [address] Creatinine [Mass/Vol] 0.47 mg/dL Low 0.60-1.20 [facility] Comment on above: Performed By: #### P P, PLT #### [facility] [address] [place] [address] [place] Creatinine Clr Calc Pharmacy 155.26 [facility] Comment on above: Performed By: #### P P, PLT #### [facility] [address] [place] [address] [place] GFR/1.73 sq M.predicted MDRD (S/P/Bld) [Vol rate/Area] mL/min/{1.73_m2} [facility] Comment on above: Performed By: #### P P, PLT #### [facility] [address] Globulin (S) [Mass/Vol] 3.1 g/dL Normal [facility] Comment on above: Performed By: #### P P, PLT #### [facility] [address] Glucose [Mass/Vol] 88 mg/dL Normal 70-100 [facility] Comment on above: Result Comment: [place] Glucose Reference Range is dependent on time and content of last meal. Glucose of more than 200 mg/dL in a nonstressed, ambulatory subject supports the diagnosis of Diabetes Mellitus. ADA recommended reference range Performed By: #### P P, PLT #### [facility] [address] Potassium [Moles/Vol] 4.5 mmol/L Normal 3.5-5.1 [facility] Comment on above: Performed By: #### P P, PLT #### [facility] [address] [place] [address] [place] Protein [Mass/Vol] 6.2 g/dL Low 6.4-8.9 [facility] Comment on above: Performed By: #### P P, PLT #### [facility] [address] Sodium [Moles/Vol] 138 mmol/L Normal 136-145 [facility] Comment on above: Performed By: #### P P, PLT #### [facility] [address] Urea nitrogen [Mass/Vol] 6 mg/dL Low 7-25 [facility] Comment on above: Performed By: #### P P, PLT #### [facility] [address] Creatinine [Mass/volume] in Serum or PlasmaOrdered By: Brianne Cabreraomar on 03-24-2023 Creatinine [Mass/Vol] 0.47 mg/dL 0.60-1.20 [facility] Globulin Calc (S) [Mass/Vol] Ordered By: Obsharondagautam Cabreraomar on 03-24-2023 Globulin (S) [Mass/Vol] 3.1 g/dL [facility] Glucose [Mass/volume] in Ser um or PlasmaOrdered By: Obsharondagautam Cabreraomar on 03-24-2023 Glucose [Mass/Vol] 88 mg/dL 70-100 [facility] Comment on above: ADA recommended refe rence rangeRandom Glucose Reference Range is dependent on time and content of last meal. Glucose of more than 200 mg/dL in a nonstressed, ambulatory subject supports the diagnosis of Diabetes Mellitus. Magnesiumon 03-24-2023 Magnesium [Mass/Vol] 1.9 mg/dL Normal 1.9-2.7 [facility] Comment on above: Result Comment: PERF ORMED BY: [place] [address] PATHOLOGIST CHIROPRACTIC TEACHER RUIZ CLIFTON M.D. Performed By: #### P P, PLT #### [facility] [address] [place] [address] [facility] Magnesium [Mass/volume] in S caitlyn or PlasmaOrdered By: Obsharondagautam Cabreraomar on 03-24-2023 Magnesium [Mass/Vol] 1.9 mg/dL 1.9-2.7 [facility] No Panel InformationOrdered By: Obsharondagautam Cabreraomar on 03-24-2023 Estimated GFR (CKD-EPI) > 60.0 mL/Min [facility] Creatinine Clearance (Chem 155.26 [facility] Potassium [Moles/volume] in Serum or PlasmaOrdered By: Obsharondah Daromar on 03-24-2023 Potassium [Moles/Vol] 4.5 mmol/L 3.5-5.1 [facility] Protein [Mass/volume] in Ser um or PlasmaOrdered By: Obaydah Daromar on 03-24-2023 Protein [Mass/Vol] 6.2 g/dL 6.4-8.9 [facility] Serum or plasma albumin/glob ulin mass ratioOrdered By: Obsharondah Daromar on 03-24-2023 Albumin/Globulin [Mass ratio] 1.0 {ratio} [facility] Serum or plasma anion gap de terminationOrdered By: Obsharondah Daromar on 03-24-2023 Anion gap [Moles/Vol] 9.7 mmol/L 6.0-15.0 [facility] Sodium [Moles/volume] in Ser um or PlasmaOrdered By: Obsharondah Daromar on 03-24-2023 Sodium [Moles/Vol] 138 mmol/L 136-145 [facility] Urea nitrogen [Mass/volume] in Serum or PlasmaOrdered By: Obaydah Daromar on 03-24-2023 Urea nitrogen [Mass/Vol] 6 mg/dL 7-25 [facility] Comprehensive Metabolic Pane antione 03-23-2023 Albumin [Mass/Vol] 2.8 g/dL Low 3.5-5.7 [facility] Comment on above: Performed By: #### C BC, CMP, MG, LDH, [id number] #### [facility] [address] #### LEAD,ADULT, KAPPA, SPE, ANCA PROF, SANDRA, CRYOGLOB, HBSAG, CU, HIV SCREEN, RONALD SERUM, PAT, METH, HBSAB, RA, HCBIGM #### [facility] , Albumin/Globulin [Mass ratio] 1.0 {ratio} Normal [facility] Comment on above: Performed By: #### C BC, CMP, MG, LDH, [id number] #### [address] #### LEAD,ADULT, KAPPA, SPE, ANCA PROF, SANDRA, CRYOGLOB, HBSAG, CU, HIV SCREEN, RONALD SERUM, PAT, METH, HBSAB, RA, HCBIGM #### [facility] , ALP [Catalytic activity/Vol] 101 U/L Normal 34-104 [facility] Comment on above: Performed By: #### C BC, CMP, MG, LDH, [id number] #### [address] #### LEAD,ADULT, KAPPA, SPE, ANCA PROF, SANDRA, CRYOGLOB, HBSAG, CU, HIV SCREEN, RONALD SERUM, PAT, METH, HBSAB, RA, HCBIGM #### [facility] , ALT [Catalytic activity/Vol] 26 U/L Normal 7-52 [facility] Comment on above: Performed By: #### C BC, CMP, MG, LDH, [id number] #### [address] #### LEAD,ADULT, KAPPA, SPE, ANCA PROF, SANDRA, CRYOGLOB, HBSAG, CU, HIV SCREEN, RONALD SERUM, PAT, METH, HBSAB, RA, HCBIGM #### [facility] , Anion gap [Moles/Vol] 8.8 mmol/L Normal 6.0-15.0 [facility] Comment on above: Performed By: #### C BC, CMP, MG, LDH, [id number] #### [address] #### LEAD,ADULT, KAPPA, SPE, ANCA PROF, SANDRA, CRYOGLOB, HBSAG, CU, HIV SCREEN, RONALD SERUM, PAT, METH, HBSAB, RA, HCBIGM #### [facility] , AST [Catalytic activity/Vol] 54 U/L High 13-39 [facility] Comment on above: Performed By: #### C BC, CMP, MG, LDH, [id number] #### [address] #### LEAD,ADULT, KAPPA, SPE, ANCA PROF, SANDRA, CRYOGLOB, HBSAG, CU, HIV SCREEN, RONALD SERUM, PAT, METH, HBSAB, RA, HCBIGM #### [facility] , Bilirubin [Mass/Vol] 0.7 mg/dL Normal 0.3-1.0 [facility] Comment on above: Performed By: #### C BC, CMP, MG, LDH, [id number] #### [address] #### LEAD,ADULT, KAPPA, SPE, ANCA PROF, SANDRA, CRYOGLOB, HBSAG, CU, HIV SCREEN, RONALD SERUM, PAT, METH, HBSAB, RA, HCBIGM #### [facility] , Calcium [Mass/Vol] 8.3 mg/dL Low 8.6-10.3 [facility] Comment on above: Performed By: #### C BC, CMP, MG, LDH, [id number] #### [place] [address] [place] #### LEAD,ADULT, KAPPA, SPE, ANCA PROF, SANDRA, CRYOGLOB, HBSAG, CU, HIV SCREEN, RONALD SERUM, PAT, METH, HBSAB, RA, HCBIGM #### [facility] , Chloride [Moles/Vol] 106 mmol/L Normal 98-107 [facility] Comment on above: Performed By: #### C BC, CMP, MG, LDH, [id number] #### [facility] [address] [place] [address] #### LEAD,ADULT, KAPPA, SPE, ANCA PROF, SANDRA, CRYOGLOB, HBSAG, CU, HIV SCREEN, RONALD SERUM, PAT, METH, HBSAB, RA, HCBIGM #### [facility] , CO2 [Moles/Vol] 26.8 mmol/L Normal 21.0-31.0 [facility] Comment on above: Performed By: #### C BC, CMP, MG, LDH, [id number] #### [address] #### LEAD,ADULT, KAPPA, SPE, ANCA PROF, SANDRA, CRYOGLOB, HBSAG, CU, HIV SCREEN, RONALD SERUM, PAT, METH, HBSAB, RA, HCBIGM #### [facility] , Creatinine [Mass/Vol] 0.39 mg/dL Low 0.60-1.20 [facility] Comment on above: Performed By: #### C BC, CMP, MG, LDH, [id number] #### [facility] [address] [place] [address] #### LEAD,ADULT, KAPPA, SPE, ANCA PROF, SANDRA, CRYOGLOB, HBSAG, CU, HIV SCREEN, RONALD SERUM, PAT, METH, HBSAB, RA, HCBIGM #### [facility] , Creatinine Clr Calc Pharmacy 187.11 Normal [facility] Comment on above: Result Comment: PERF ORMED BY: [place] [address] PATHOLOGIST CHIROPRACTIC TEACHER RUIZ CLIFTON M.D. Performed By: #### C BC, CMP, MG, LDH, [id number] #### [facility] [address] [place] [address] #### LEAD,ADULT, KAPPA, SPE, ANCA PROF, SANDRA, CRYOGLOB, HBSAG, CU, HIV SCREEN, RONALD SERUM, PAT, METH, HBSAB, RA, HCBIGM #### [facility] , GFR/1.73 sq M.predicted MDRD (S/P/Bld) [Vol rate/Area] mL/min/{1.73_m2} Normal [facility] Comment on above: Performed By: #### C BC, CMP, MG, LDH, [id number] #### [address] #### LEAD,ADULT, KAPPA, SPE, ANCA PROF, SANDRA, CRYOGLOB, HBSAG, CU, HIV SCREEN, RONALD SERUM, PAT, METH, HBSAB, RA, HCBIGM #### [facility] , Globulin (S) [Mass/Vol] 2.7 g/dL Normal [facility] Comment on above: Performed By: #### C BC, CMP, MG, LDH, [id number] #### [address] #### LEAD,ADULT, KAPPA, SPE, ANCA PROF, SANDRA, CRYOGLOB, HBSAG, CU, HIV SCREEN, RONALD SERUM, PAT, METH, HBSAB, RA, HCBIGM #### [facility] , Glucose [Mass/Vol] 84 mg/dL Normal 70-100 [facility] Comment on above: Result Comment: [place] Glucose Reference Range is dependent on time and content of last meal. Glucose of more than 200 mg/dL in a nonstressed, ambulatory subject supports the diagnosis of Diabetes Mellitus. ADA recommended reference range Performed By: #### C BC, CMP, MG, LDH, [id number] #### [place] [address] [place] #### LEAD,ADULT, KAPPA, SPE, ANCA PROF, SANDRA, CRYOGLOB, HBSAG, CU, HIV SCREEN, RONALD SERUM, PAT, METH, HBSAB, RA, HCBIGM #### [facility] , Potassium [Moles/Vol] 4.6 mmol/L Normal 3.5-5.1 [facility] Comment on above: Performed By: #### C BC, CMP, MG, LDH, [id number] #### [place] [address] [place] #### LEAD,ADULT, KAPPA, SPE, ANCA PROF, SANDRA, CRYOGLOB, HBSAG, CU, HIV SCREEN, RONALD SERUM, PAT, METH, HBSAB, RA, HCBIGM #### [facility] , Protein [Mass/Vol] 5.5 g/dL Low 6.4-8.9 [facility] Comment on above: Performed By: #### C BC, CMP, MG, LDH, [id number] #### [place] [address] [place] #### LEAD,ADULT, KAPPA, SPE, ANCA PROF, SANDRA, CRYOGLOB, HBSAG, CU, HIV SCREEN, RONALD SERUM, PAT, METH, HBSAB, RA, HCBIGM #### [facility] , Sodium [Moles/Vol] 137 mmol/L Normal 136-145 [facility] Comment on above: Performed By: #### C BC, CMP, MG, LDH, [id number] #### [place] [address] [place] #### LEAD,ADULT, KAPPA, SPE, ANCA PROF, SANDRA, CRYOGLOB, HBSAG, CU, HIV SCREEN, RONALD SERUM, PAT, METH, HBSAB, RA, HCBIGM #### [facility] , Urea nitrogen [Mass/Vol] 4 mg/dL Low 7-25 [facility] Comment on above: Performed By: #### C BC, CMP, MG, LDH, [id number] #### [place] [address] [place] #### LEAD,ADULT, KAPPA, SPE, ANCA PROF, SANDRA, CRYOGLOB, HBSAG, CU, HIV SCREEN, RONALD SERUM, PAT, METH, HBSAB, RA, HCBIGM #### [facility] , Erythrocyte distribution wid th Auto (RBC) [Ratio]Ordered By: Brianne Umanzor on 03-23-2023 Erythrocyte distribution width (RBC) [Ratio] 14.6 % 11.9-15.3 [facility] Hematocrit Auto (Bld) [Volum e fraction]Ordered By: Brianne Umanzor on 03-23-2023 Hematocrit (Bld) [Volume fraction] 31.7 % 34.0-46.4 [facility] Hemoglobin [Mass/volume] in BloodOrdered By: Brianne Cabreraomar on 03-23-2023 Hemoglobin (Bld) [Mass/Vol] 10.9 g/dL 11.8-15.4 [facility] Hemogram CBC Without Diffon 03-23-2023 Erythrocyte distribution width (RBC) [Ratio] 14.6 % Normal 11.9-15.3 [facility] Comment on above: Performed By: #### C BC, CMP, MG, LDH, [id number] #### [address] #### LEAD,ADULT, KAPPA, SPE, ANCA PROF, SANDRA, CRYOGLOB, HBSAG, CU, HIV SCREEN, RONALD SERUM, PAT, METH, HBSAB, RA, HCBIGM #### [facility] , Hematocrit (Bld) [Volume fraction] 31.7 % Low 34.0-46.4 [facility] Comment on above: Performed By: #### C BC, CMP, MG, LDH, [id number] #### [place] [address] [place] #### LEAD,ADULT, KAPPA, SPE, ANCA PROF, SANDRA, CRYOGLOB, HBSAG, CU, HIV SCREEN, RONALD SERUM, PAT, METH, HBSAB, RA, HCBIGM #### [facility] , Hemoglobin (Bld) [Mass/Vol] 10.9 g/dL Low 11.8-15.4 [facility] Comment on above: Performed By: #### C BC, CMP, MG, LDH, [id number] #### [place] [address] [place] #### LEAD,ADULT, KAPPA, SPE, ANCA PROF, SANDRA, CRYOGLOB, HBSAG, CU, HIV SCREEN, RONALD SERUM, PAT, METH, HBSAB, RA, HCBIGM #### [facility] , MCH (RBC) [Entitic mass] 37.0 pg High 24.7-34.3 [facility] Comment on above: Performed By: #### C BC, CMP, MG, LDH, [id number] #### [address] #### LEAD,ADULT, KAPPA, SPE, ANCA PROF, SANDRA, CRYOGLOB, HBSAG, CU, HIV SCREEN, RONALD SERUM, PAT, METH, HBSAB, RA, HCBIGM #### [facility] , MCV (RBC) [Entitic vol] 107.1 fL High 80-100 F [facility] Comment on above: Performed By: #### C BC, CMP, MG, LDH, [id number] #### [place] [address] [place] #### LEAD,ADULT, KAPPA, SPE, ANCA PROF, SANDRA, CRYOGLOB, HBSAG, CU, HIV SCREEN, RONALD SERUM, PAT, METH, HBSAB, RA, HCBIGM #### [facility] , Mean Corpuscular HGB Conc 34.5 g/dL Normal 32.0-35.0 [facility] Comment on above: Performed By: #### C BC, CMP, MG, LDH, [id number] #### [place] [address] [place] #### LEAD,ADULT, KAPPA, SPE, ANCA PROF, SANDRA, CRYOGLOB, HBSAG, CU, HIV SCREEN, RONALD SERUM, PTA, METH, HBSAB, RA, HCBIGM #### [facility] , Platelet mean volume (Bld) [Entitic vol] 7.2 fL Normal 6.3-10.7 [facility] Comment on above: Result Comment: PERF ORMED BY: [place] [address] PATHOLOGIST CHIROPRACTIC TEACHER RUIZ CLIFTON M.D. Performed By: #### C BC, CMP, MG, LDH, [id number] #### [facility] [address] [place] [address] #### LEAD,ADULT, KAPPA, SPE, ANCA PROF, SANDRA, CRYOGLOB, HBSAG, CU, HIV SCREEN, RONALD SERUM, PAT, METH, HBSAB, RA, HCBIGM #### [facility] , Platelets (Bld) [#/Vol] 237 10*3/uL Normal 150-450 [facility] Comment on above: Performed By: #### C BC, CMP, MG, LDH, [id number] #### [address] #### LEAD,ADULT, KAPPA, SPE, ANCA PROF, SANDRA, CRYOGLOB, HBSAG, CU, HIV SCREEN, RONALD SERUM, PAT, METH, HBSAB, RA, HCBIGM #### [facility] , RBC (Bld) [#/Vol] 2.96 10*6/uL Low 3.60-5.00 [facility] Comment on above: Performed By: #### C BC, CMP, MG, LDH, [id number] #### [facility] [address] [place] [address] [place] #### LEAD,ADULT, KAPPA, SPE, ANCA PROF, SANDRA, CRYOGLOB, HBSAG, CU, HIV SCREEN, RONALD SERUM, PAT, METH, HBSAB, RA, HCBIGM #### [facility] , WBC (Bld) [#/Vol] 6.3 10*3/uL Normal 3.8-11.6 [facility] Comment on above: Performed By: #### C BC, CMP, MG, LDH, [id number] #### [facility] [address] [place] [address] [place] #### LEAD,ADULT, KAPPA, SPE, ANCA PROF, SANDRA, CRYOGLOB, HBSAG, CU, HIV SCREEN, RONALD SERUM, PAT, METH, HBSAB, RA, HCBIGM #### [facility] , Leukocytes [#/volume] correc antoine for nucleated erythrocytes in Blood by Automated counOrdered By: Brianne Umanzor on 03-23-2023 WBC corrected for nucl RBC Auto (Bld) [#/Vol] 6.3 10*3/uL 3.8-11.6 [facility] MCH Auto (RBC) [Entitic mass ]Ordered By: Brianne Umanzor on 03-23-2023 MCH (RBC) [Entitic mass] 37.0 pg 24.7-34.3 [facility] MCHC Auto (RBC) [Mass/Vol]Or dered By: Brianne Umanzor on 03-23-2023 MCHC (RBC) [Mass/Vol] 34.5 g/dL 32.0-35.0 [facility] MCV Auto (RBC) [Entitic vol] Ordered By: Brianne Umanzor on 03-23-2023 MCV (RBC) [Entitic vol] 107.1 fL 80-100 F [facility] Platelet mean volume Auto (B ld) [Entitic vol]Ordered By: Brianne Umanzor on 03-23-2023 Platelet mean volume (Bld) [Entitic vol] 7.2 fL 6.3-10.7 [facility] Platelets Auto (Bld) [#/Vol] Ordered By: Brianne Umanzor on 03-23-2023 Platelets (Bld) [#/Vol] 237 10*3/uL 150-450 [facility] RBC Auto (Bld) [#/Vol]Ordere d By: Brianne Umanzor on 03-23-2023 RBC (Bld) [#/Vol] 2.96 10*6/uL 3.60-5.00 [facility] US abdomen limitedon 023 US abdomen limited [facility] [place] [address] Ultrasound Report Signed Patient: Rica Stout MR#: [id number] 39 : 1995 Acct:[id number] Age/Sex: 27 / F ADM Date: 03/22/23 Loc: 4 Room: [address] [place] [address] Type: ADM IN Attending Dr: Brianne Umanzor [...] Lowell Blake M.D.03/23/2023 9:35 AM Dictation Location: [place] [address] Tech: Nia Liz Transcribed By: RAJESH 03/23/23934 Dictated By: Lowell Blake II, MD 03/23/23930 Signed By: 03/23/23934 Normal [facility] A1C with Estimated Average G gracen 03-22-2023 Glucose [Mass/Vol] 94 mg/dL Normal [facility] Comment on above: Result Comment: PERF ORMED BY: [place] [address] PATHOLOGIST CHIROPRACTIC TEACHER RUIZ CLIFTON M.D. Performed By: #### C BC, CMP, MG, LDH, [id number] #### [address] #### LEAD,ADULT, KAPPA, SPE, ANCA PROF, SANDRA, CRYOGLOB, HBSAG, CU, HIV SCREEN, RONALD SERUM, PAT, METH, HBSAB, RA, HCBIGM #### [facility] , HbA1c (Bld) [Mass fraction] 4.9 % Normal 4.3-5.6 [facility] Comment on above: Result Comment: Incr eased risk for diabetes: 5.7 - 6.4 diabetes: >6.4 glycemic control for adults with diabetes: <7.0 Performed By: #### C BC, CMP, MG, LDH, [id number] #### [address] #### LEAD,ADULT, KAPPA, SPE, ANCA PROF, SANDRA, CRYOGLOB, HBSAG, CU, HIV SCREEN, RONALD SERUM, PAT, METH, HBSAB, RA, HCBIGM #### [facility] , PAT with Reflexon 03-22-2023 PAT with Reflex Negative Normal Negative [facility] Comment on above: Result Comment: Perf ormed at: CB - [facility] [address] [id number] Defensive Driving Instructor: Breezy Jones PhD, Phone: [phone] Performed By: #### C BC, CMP, MG, LDH, [id number] #### [facility] [address] [place] [address] #### LEAD,ADULT, KAPPA, SPE, ANCA PROF, SANDRA, CRYOGLOB, HBSAG, CU, HIV SCREEN, RONALD SERUM, PAT, METH, HBSAB, RA, HCBIGM #### [facility] , Aerobic Cultureon 03-22-2023 Aerobic Culture Comment Tube 2 No Growth 2 Days Comment Tube 2 No Anaerobes Isolated 3 Days Comment Tube 2 Gram Stain Result No Bacteria Seen No White Blood Cells Seen PERFORMED BY: [place] [address] PATHOLOGIST CHIROPRACTIC TEACHER RUIZ CLIFTON M.D. Normal [facility] Comment on above: Performed By: #### C BC, CMP, MG, LDH, [id number] #### [facility] [address] [place] [address] #### LEAD,ADULT, KAPPA, SPE, ANCA PROF, SANDRA, CRYOGLOB, HBSAG, CU, HIV SCREEN, RONALD SERUM, PAT, METH, HBSAB, RA, HCBIGM #### [facility] , Aerobic cultureOrdered By: Olivia Peterson on 03-22-2023 Bacteria identified Aer cx Nom (Unsp spec) No Growth 2 Days [facility] Albumin [Mass/volume] in Ser um or PlasmaOrdered By: Chele Gamino on 03-22-2023 Albumin [Mass/Vol] 3.1 g/dL 2.9-4.4 [facility] Alpha tocopherol [Mass/volum e] in Serum or PlasmaOrdered By: Chele Gamino on 03-22-2023 Alpha tocopherol [Mass/Vol] 10.9 mg/L 5.9-19.4 [facility] Comment on above: This test was develo ped and its performance characteristicsdetermined by [facility]. It has not been cleared orapproved by the Food and Drug Administration. Ammoniaon 03-22-2023 Ammonia (P) [Moles/Vol] 57 umol/L High 11-35 F [facility] Comment on above: Result Comment: PERF ORMED BY: [place] [address] PATHOLOGIST CHIROPRACTIC TEACHER RUIZ CLIFTON M.D. Performed By: #### P P, PLT #### [facility] [address] [place] [address] Ammonia [Moles/volume] in Pl asmaOrdered By: Chele Gamino on 03-22-2023 Ammonia (P) [Moles/Vol] 57 umol/L 11-35 F [facility] Amphetamine Screen Ql (U)Ord ered By: Chele Gamino on 03-22-2023 Amphetamines Ql (U) Negative Negative [facility] Anaerobic cultureOrdered By: Bernard Peterson on 03-22-2023 Bacteria identified Anaer cx Nom (Unsp spec) No Anaerobes Isolated 3 Days [facility] Bacterial blood cultureOrder ed By: Bernard Peterson on 03-22-2023 Bacteria identified Cx Nom (Bld) NO GROWTH 5 DAYS [facility] Barbiturates [Presence] in U rine by Screen methodOrdered By: Chele Gamino on 03-22-2023 Barbiturates Screen Ql (U) Negative Negative [facility] Basic Metabolic Panelon 09 Anion gap [Moles/Vol] 13.0 mmol/L Normal 6.0-15.0 [facility] Comment on above: Performed By: #### C BC, CMP, MG, LDH, [id number] #### [facility] [address] [place] [address] #### LEAD,ADULT, KAPPA, SPE, ANCA PROF, SANDRA, CRYOGLOB, HBSAG, CU, HIV SCREEN, RONALD SERUM, PAT, METH, HBSAB, RA, HCBIGM #### [facility] , Calcium [Mass/Vol] 7.3 mg/dL Low 8.6-10.3 [facility] Comment on above: Performed By: #### C BC, CMP, MG, LDH, [id number] #### [facility] [address] [place] [address] [place] #### LEAD,ADULT, KAPPA, SPE, ANCA PROF, SANDRA, CRYOGLOB, HBSAG, CU, HIV SCREEN, RONALD SERUM, PAT, METH, HBSAB, RA, HCBIGM #### [facility] , Chloride [Moles/Vol] 112 mmol/L High 98-107 [facility] Comment on above: Performed By: #### C BC, CMP, MG, LDH, [id number] #### [facility] [address] [place] [address] [place] #### LEAD,ADULT, KAPPA, SPE, ANCA PROF, SANDRA, CRYOGLOB, HBSAG, CU, HIV SCREEN, RONALD SERUM, PAT, METH, HBSAB, RA, HCBIGM #### [facility] , CO2 [Moles/Vol] 18.9 mmol/L Low 21.0-31.0 [facility] Comment on above: Performed By: #### C BC, CMP, MG, LDH, [id number] #### [facility] [address] [place] [address] [place] #### LEAD,ADULT, KAPPA, SPE, ANCA PROF, SANDRA, CRYOGLOB, HBSAG, CU, HIV SCREEN, RONALD SERUM, PAT, METH, HBSAB, RA, HCBIGM #### [facility] , Creatinine [Mass/Vol] 0.42 mg/dL Low 0.60-1.20 [facility] Comment on above: Performed By: #### C BC, CMP, MG, LDH, [id number] #### [facility] [address] [place] [address] [place] #### LEAD,ADULT, KAPPA, SPE, ANCA PROF, SANDRA, CRYOGLOB, HBSAG, CU, HIV SCREEN, RONALD SERUM, PAT, METH, HBSAB, RA, HCBIGM #### [facility] , Creatinine Clr Calc Pharmacy 173.74 [facility] Comment on above: Performed By: #### C BC, CMP, MG, LDH, [id number] #### [facility] [address] [place] [address] [place] #### LEAD,ADULT, KAPPA, SPE, ANCA PROF, SANDRA, CRYOGLOB, HBSAG, CU, HIV SCREEN, RONALD SERUM, PAT, METH, HBSAB, RA, HCBIGM #### [facility] , GFR/1.73 sq M.predicted MDRD (S/P/Bld) [Vol rate/Area] mL/min/{1.73_m2} [facility] Comment on above: Performed By: #### C BC, CMP, MG, LDH, [id number] #### [facility] [address] [place] [address] [place] #### LEAD,ADULT, KAPPA, SPE, ANCA PROF, SANDRA, CRYOGLOB, HBSAG, CU, HIV SCREEN, RONALD SERUM, PAT, METH, HBSAB, RA, HCBIGM #### [facility] , Glucose [Mass/Vol] 101 mg/dL High 70-100 [facility] Comment on above: Result Comment: [place] Glucose Reference Range is dependent on time and content of last meal. Glucose of more than 200 mg/dL in a nonstressed, ambulatory subject supports the diagnosis of Diabetes Mellitus. ADA recommended reference range Performed By: #### C BC, CMP, MG, LDH, [id number] #### [address] #### LEAD,ADULT, KAPPA, SPE, ANCA PROF, SANDRA, CRYOGLOB, HBSAG, CU, HIV SCREEN, RONALD SERUM, PAT, METH, HBSAB, RA, HCBIGM #### [facility] , Potassium [Moles/Vol] 3.9 mmol/L Normal 3.5-5.1 [facility] Comment on above: Performed By: #### C BC, CMP, MG, LDH, [id number] #### [place] [address] [place] #### LEAD,ADULT, KAPPA, SPE, ANCA PROF, SANDRA, CRYOGLOB, HBSAG, CU, HIV SCREEN, RONALD SERUM, PAT, METH, HBSAB, RA, HCBIGM #### [facility] , Sodium [Moles/Vol] 140 mmol/L Normal 136-145 [facility] Comment on above: Performed By: #### C BC, CMP, MG, LDH, [id number] #### [place] [address] [place] #### LEAD,ADULT, KAPPA, SPE, ANCA PROF, SANDRA, CRYOGLOB, HBSAG, CU, HIV SCREEN, RONALD SERUM, PAT, METH, HBSAB, RA, HCBIGM #### [facility] , Urea nitrogen [Mass/Vol] 3 mg/dL Low 7-25 [facility] Comment on above: Performed By: #### C BC, CMP, MG, LDH, [id number] #### [place] [address] [place] #### LEAD,ADULT, KAPPA, SPE, ANCA PROF, SANDRA, CRYOGLOB, HBSAG, CU, HIV SCREEN, RONALD SERUM, PAT, METH, HBSAB, RA, HCBIGM #### [facility] , Benzodiazepines Screen Ql (U )Ordered By: Chele Gamino on 03-22-2023 Benzodiazepines Ql (U) Negative Negative [facility] Benzoylecgonine [Presence] i n Urine by Screen methodOrdered By: Cehle Gamino on 03-22-2023 Benzoylecgonine Screen Ql (U) Negative Negative [facility] Bilirubin.direct [Mass/volum e] in Serum or PlasmaOrdered By: Yoana Rico on 03-22-2023 Bilirubin.direct [Mass/Vol] 0.10 mg/dL 0.03-0.18 [facility] Blood Cultureon 03-22-2023 Bacteria identified Cx Nom (Bld) NO GROWTH 5 DAYS PERFORMED BY: [place] [address] PATHOLOGIST [employer] RUIZ CLIFTON M.D. [facility] Comment on above: Performed By: #### C BC, CMP, MG, LDH, [id number] #### [address] #### LEAD,ADULT, KAPPA, SPE, ANCA PROF, [...] Varicella zoster virus Not detected PERFORMED BY: [place] [address] PATHOLOGIST [employer] RUIZ CLIFTON M.D. Normal [facility] Comment on above: Performed By: #### C BC, CMP, MG, LDH, [id number] #### [address] #### LEAD,ADULT, KAPPA, SPE, ANCA PROF, SANDRA, CRYOGLOB, HBSAG, CU, HIV SCREEN, RONALD SERUM, PAT, METH, HBSAB, RA, HCBIGM #### [facility] , CSF and Ser Oligoclonal Band son 03-22-2023 Oligoclonal Bands Interpret Normal . [facility] Comment on above: Order Comment: Comme nt Tube 4 Result Comment: Zero (0) oligoclonal bands were observed in the CSF. However two (2) paired bands were observed in both the CSF and serum. Paired bands suggest an immune response to an inflammatory process outside the CORPORATE OPERATIONS COMPLIANCE MANAGER and are unlikely to represent a CORPORATE OPERATIONS COMPLIANCE MANAGER demyelinating disease. Interpretation: Criteria for Positivity: Four [...] Focusing (IEF) and immunoblotting methodology. Performed at: [facility] [address] [id number] Defensive Driving Instructor: Breezy Jones PhD, Phone: [phone] PERFORMED BY: [place] [address] PATHOLOGIST CHIROPRACTIC TEACHER RUIZ CLIFTON M.D. Performed By: #### C BC, CMP, MG, LDH, [id number] #### [address] #### LEAD,ADULT, KAPPA, SPE, ANCA PROF, SANDRA, CRYOGLOB, HBSAG, CU, HIV SCREEN, RONALD SERUM, PAT, METH, HBSAB, RA, HCBIGM #### [facility] , CT head/brain wo conon 03-22 CT head/brain wo con [facility] [place] [address] [place] [address] CT Scan Report Signed Patient: Rica Stout MR#: [id number] 39 : 1995 Acct:[id number] Age/Sex: 27 / F ADM Date: 03/22/23 Loc: Room: [address] [place] [address] Type: ADM IN Attending Dr: Parveen Keller [...] Dave Clark M.D.03/22/2023 8:08 AM Dictation Location: [place] [address] Transcribed By: [facility] 03/22/23 08 Dictated By: Dave Clark DO 03/22/23807 Signed By: 03/22/23807 Normal [facility] Cannabinoids [Presence] in U rine by Screen methodOrdered By: Chele Gamino on 03-22-2023 Cannabinoids Screen Ql (U) Negative Negative [facility] Comment on above: These are unconfirme d results and should not be used for legal purposes. Drug Cut-Off Concentration: AMPH 1000 ng/mL ALEXANDRO 200 ng/mL ATILIO 200 ng/mL COCM 300 ng/mL OP 300 ng/mL PCP 25 ng/mL THC 20 ng/mL Cell Count Differential,CSFo n 03-22-2023 Appearance, CSF Clear Normal Clear [facility] Comment on above: Order Comment: Comme nt Tube 1 Performed By: #### C BC, CMP, MG, LDH, [id number] #### [address] #### LEAD,ADULT, KAPPA, SPE, ANCA PROF, SANDRA, CRYOGLOB, HBSAG, CU, HIV SCREEN, RONALD SERUM, PAT, METH, HBSAB, RA, HCBIGM #### [facility] , Order Comment: Comme nt Tube 3 Color, CSF Colorless Normal Colorless [facility] Comment on above: Order Comment: Comme nt Tube 1 Performed By: #### C BC, CMP, MG, LDH, [id number] #### [facility] [address] [place] [address] [place] #### LEAD,ADULT, KAPPA, SPE, ANCA PROF, SANDRA, CRYOGLOB, HBSAG, CU, HIV SCREEN, RONALD SERUM, PAT, METH, HBSAB, RA, HCBIGM #### [facility] , Order Comment: Comme nt Tube 3 Comment, CSF Normal [facility] Comment on above: Order Comment: Comme nt Tube 1 Result Comment: NO N UCLEATED CELLS SEEN. DIFFERENTIAL NOT PREFORMED Performed By: #### C BC, CMP, MG, LDH, [id number] #### [address] #### LEAD,ADULT, KAPPA, SPE, ANCA PROF, SADNRA, CRYOGLOB, HBSAG, CU, HIV SCREEN, RONALD SERUM, PAT, METH, HBSAB, RA, HCBIGM #### [facility] , Order Comment: Comme nt Tube 3 Result Comment: NO N UCLEATED CELL SEEN. DIFFERENTIAL NOT PREFORMED CSF Supernatant Color Colorless Normal Colorless [facility] Comment on above: Order Comment: Comme nt Tube 1 Performed By: #### C BC, CMP, MG, LDH, [id number] #### [address] #### LEAD,ADULT, KAPPA, SPE, ANCA PROF, SANDRA, CRYOGLOB, HBSAG, CU, HIV SCREEN, RONALD SERUM, PAT, METH, HBSAB, RA, HCBIGM #### [facility] , Order Comment: Comme nt Tube 3 CSF Volume, Total 3.5 mL Normal [facility] Comment on above: Order Comment: Comme nt Tube 1 Performed By: #### C BC, CMP, MG, LDH, [id number] #### [address] #### LEAD,ADULT, KAPPA, SPE, ANCA PROF, SANDRA, CRYOGLOB, HBSAG, CU, HIV SCREEN, RONALD SERUM, PAT, METH, HBSAB, RA, HCBIGM #### [facility] , Order Comment: Comme nt Tube 3 RBC, CSF 11 /uL Normal [facility] Comment on above: Order Comment: Comme nt Tube 1 Result Comment: The reference interval and other method performance specifications have not been established for this body fluid. The test result must be integrated into the clinical context for interpretation. Performed By: #### C BC, CMP, MG, LDH, [id number] #### [place] [address] [place] #### LEAD,ADULT, KAPPA, SPE, ANCA PROF, SANDRA, CRYOGLOB, HBSAG, CU, HIV SCREEN, RONALD SERUM, PAT, METH, HBSAB, RA, HCBIGM #### [facility] , TNC, CSF 0 /uL Normal 0-5 [facility] Comment on above: Order Comment: Comme nt Tube 1 Performed By: #### C BC, CMP, MG, LDH, [id number] #### [address] #### LEAD,ADULT, KAPPA, SPE, ANCA PROF, SANDRA, CRYOGLOB, HBSAG, CU, HIV SCREEN, RONALD SERUM, PAT, METH, HBSAB, RA, HCBIGM #### [facility] , Order Comment: Comme nt Tube 3 Tube Number Tested, CSF Tube Number: 1 [facility] Comment on above: Order Comment: Comme nt Tube 1 Result Comment: PERF ORMED BY: [place] [address] PATHOLOGIST CHIROPRACTIC TEACHER RUIZ CLIFTON M.D. Performed By: #### C BC, CMP, MG, LDH, [id number] #### [address] #### LEAD,ADULT, KAPPA, SPE, ANCA PROF, SANDRA, CRYOGLOB, HBSAG, CU, HIV SCREEN, RONALD SERUM, PAT, METH, HBSAB, RA, HCBIGM #### [facility] , Cell Count Differential,CSF #2on 03-22-2023 RBC, CSF 0 /uL [facility] Comment on above: Order Comment: Comme nt Tube 3 Result Comment: The reference interval and other method performance specifications have not been established for this body fluid. The test result must be integrated into the clinical context for interpretation. Performed By: #### C BC, CMP, MG, LDH, [id number] #### [place] [address] [place] #### LEAD,ADULT, KAPPA, SPE, ANCA PROF, SANDRA, CRYOGLOB, HBSAG, CU, HIV SCREEN, RONALD SERUM, PAT, METH, HBSAB, RA, HCBIGM #### [facility] , Tube Number Tested, CSF Tube Number: 3 Normal [facility] Comment on above: Order Comment: Comme nt Tube 3 Result Comment: PERF ORMED BY: [address] [place] [address] PATHOLOGIST CHIROPRACTIC TEACHER RUIZ CLIFTON M.D. Performed By: #### C BC, CMP, MG, LDH, [id number] #### [address] #### LEAD,ADULT, KAPPA, SPE, ANCA PROF, SANDRA, CRYOGLOB, HBSAG, CU, HIV SCREEN, RONALD SERUM, PAT, METH, HBSAB, RA, HCBIGM #### [facility] , Consultation Noteon 03-22-20 Consultation Note [id number]#[id number]: 127 Normal [facility] [place] [facility] Cryoglobulin with Quant Refl exon 03-22-2023 Cryoglobulin, Ql, Serum Normal None detected [facility] Comment on above: Result Comment: None Detected at 72 hours This test was developed and its performance characteristics determined by [employer]. It has not been cleared or approved by the Food and Drug Administration. Performed at: - [facility] [id number] Defensive Driving Instructor: Breezy Jones PhD, Phone: [phone] Performed By: #### C BC, CMP, MG, LDH, [id number] #### [address] #### LEAD,ADULT, KAPPA, SPE, ANCA PROF, SANDRA, CRYOGLOB, HBSAG, CU, HIV SCREEN, RONLAD SERUM, PAT, METH, HBSAB, RA, HCBIGM #### [facility] , Drug Screen,Urineon 03-22-20 Amphetamine Screen,Urine Negative Normal Negative [facility] Comment on above: Performed By: #### P P, PLT #### [address] Barbiturate Screen,Urine Negative Normal Negative [facility] Comment on above: Performed By: #### P P, PLT #### [address] Benzodiazepines Screen,Urine Negative Normal Negative [facility] Comment on above: Performed By: #### P P, PLT #### [facility] [address] [place] [address] Cannabinoid Screen,Urine Negative Normal Negative [facility] Comment on above: Result Comment: Thes e are unconfirmed results and should not be used for legal purposes. Drug Cut-Off Concentration: AMPH 1000 ng/mL ALEXANDRO 200 ng/mL ATILIO 200 ng/mL COCM 300 ng/mL OP 300 ng/mL PCP 25 ng/mL THC 20 ng/mL PERFORMED BY: [place] [address] PATHOLOGIST CHIROPRACTIC TEACHER RUIZ CLIFTON M.D. Performed By: #### P P, PLT #### [address] Cocaine Screen,Urine Negative Normal Negative [facility] Comment on above: Performed By: #### P P, PLT #### [facility] [address] [place] [address] Opiate Screen,Urine Negative Normal Negative [facility] Comment on above: Performed By: #### P P, PLT #### [address] Phencyclidine Screen,Urine Negative Normal Negative [facility] Comment on above: Performed By: #### P P, PLT #### [address] ED Note-Physicianon 03-22-20 ED Note-Physician [id number]#[id number]: 127 Normal [facility] Folate [Mass/volume] in Seru m or PlasmaOrdered By: Yoana Rico on 03-22-2023 Folate [Mass/Vol] 2.3 ng/mL >5.9 [facility] Comment on above: Folate reference ran ge: >5.9 ng/mlThe WHO technical consultation on folate and vitamin [id number] has determined that folate concentrations lessthan 4 ng/ml are considered deficient. Gamma-tocopherol measurement (mass/volume)Ordered By: Chele Gamino on 03-22-2023 Gamma tocopherol [Mass/Vol] 1.9 mg/L 0.7-4.9 [facility] Comment on above: This test was develo ped and its performance characteristicsdetermined by [employer]. It has not been cleared orapproved by the Food and Drug Administration.Reference intervals for alpha and gamma-tocopheroldetermined from National Health and Nutrition ExaminationSurvey, 7553-7002. Individuals with alpha-tocopherol levelsless than 5.0 mg/L are considered vitamin E deficient.Performed at: [address] [id number] Director: Lisa Ramos MD, Phone: [phone] Glucose mean value [Mass/vol ume] in Blood Estimated from glycated hemoglobinOrdered By: Chele Gamino on 03-22-2023 Average glucose Estimated from glycated hemoglobin (Bld) [Mass/Vol] 94 mg/dL [facility] Glucose, CSF #2on 03-22-2023 Glucose, CSF #2 84 mg/dL High 40-70 [facility] Comment on above: Order Comment: Comme nt Tube 3 Performed By: #### C BC, CMP, MG, LDH, [id number] #### [facility] [address] [place] [address] [place] #### LEAD,ADULT, KAPPA, SPE, ANCA PROF, SANDRA, CRYOGLOB, HBSAG, CU, HIV SCREEN, RONALD SERUM, PAT, METH, HBSAB, RA, HCBIGM #### [facility] , Glucose, Spinal Fluidon Glucose, Spinal Fluid 84 mg/dL High 40-70 [facility] Comment on above: Order Comment: Comme nt Tube 1 Performed By: #### C BC, CMP, MG, LDH, [id number] #### [facility] [address] [place] [address] [place] #### LEAD,ADULT, KAPPA, SPE, ANCA PROF, SANDRA, CRYOGLOB, HBSAG, CU, HIV SCREEN, RONALD SERUM, PAT, METH, HBSAB, RA, HCBIGM #### [facility] , Gram Stainon 03-22-2023 Microscopic observation Gram stain Nom (Unsp spec) Comment Tube 2 Gram Stain Result No Bacteria Seen No White Blood Cells Seen PERFORMED BY: [place] [address] PATHOLOGIST CHIROPRACTIC TEACHER RUIZ CLIFTON M.D. Normal [facility] Comment on above: Performed By: #### C BC, CMP, MG, LDH, [id number] #### [place] [address] [place] #### LEAD,ADULT, KAPPA, SPE, ANCA PROF, SANDRA, CRYOGLOB, HBSAG, CU, HIV SCREEN, RONALD SERUM, PAT, METH, HBSAB, RA, HCBIGM #### [facility] , Gram stain for investigation of transfusion reactionOrdered By: Bernard Peterson on 03-22-2023 Microscopic observation Gram stain Nom (Unsp spec) [facility] Hemoglobin A1c percentageOrd ered By: Chele Gamino on 03-22-2023 HbA1c (Bld) [Mass fraction] 4.9 % 4.3-5.6 [facility] Comment on above: Increased risk for d iabetes: 5.7 - 6.4diabetes: >6.4glycemic control for adults with diabetes: <7.0 Hep C Ab wRfx to Qnt PCRon 0 03-22-2023 Hepatitis C Virus Antibody Non-Reactive Normal Non Reactive [facility] Comment on above: Performed By: #### C BC, CMP, MG, LDH, [id number] #### [place] [address] [place] #### LEAD,ADULT, KAPPA, SPE, ANCA PROF, SANDRA, CRYOGLOB, HBSAG, CU, HIV SCREEN, RONALD SERUM, PAT, METH, HBSAB, RA, HCBIGM #### [facility] , Interpretation Hepatitis C Normal . [facility] Comment on above: Result Comment: Not infected with HCV unless early or acute infection is suspected (which may be delayed in an immunocompromised individual), or other evidence exists to indicate HCV infection. Performed at: - [facility] [address] [id number] Defensive Driving Instructor: Breezy Jones PhD, Phone: [phone] PERFORMED BY: [place] [address] PATHOLOGIST CHIROPRACTIC TEACHER RUIZ CLIFTON M.D. Performed By: #### C BC, CMP, MG, LDH, [id number] #### [address] #### LEAD,ADULT, KAPPA, SPE, ANCA PROF, SANDRA, CRYOGLOB, HBSAG, CU, HIV SCREEN, RONALD SERUM, PAT, METH, HBSAB, RA, HCBIGM #### [facility] , Hepatic Panelon 03-22-2023 Albumin [Mass/Vol] 2.7 g/dL Low 3.5-5.7 [facility] Comment on above: Performed By: #### C BC, CMP, MG, LDH, [id number] #### [place] [address] [place] #### LEAD,ADULT, KAPPA, SPE, ANCA PROF, SANDRA, CRYOGLOB, HBSAG, CU, HIV SCREEN, RNOALD SERUM, PAT, METH, HBSAB, RA, HCBIGM #### [facility] , Albumin/Globulin [Mass ratio] 1.1 {ratio} Normal [facility] Comment on above: Performed By: #### C BC, CMP, MG, LDH, [id number] #### [place] [address] [place] #### LEAD,ADULT, KAPPA, SPE, ANCA PROF, SANDRA, CRYOGLOB, HBSAG, CU, HIV SCREEN, RONALD SERUM, PAT, METH, HBSAB, RA, HCBIGM #### [facility] , ALP [Catalytic activity/Vol] 80 U/L Normal 34-104 [facility] Comment on above: Performed By: #### C BC, CMP, MG, LDH, [id number] #### [place] [address] [place] #### LEAD,ADULT, KAPPA, SPE, ANCA PROF, SANDRA, CRYOGLOB, HBSAG, CU, HIV SCREEN, RONALD SERUM, PAT, METH, HBSAB, RA, HCBIGM #### [facility] , ALT [Catalytic activity/Vol] 26 U/L Normal 7-52 [facility] Comment on above: Performed By: #### C BC, CMP, MG, LDH, [id number] #### [place] [address] [place] #### LEAD,ADULT, KAPPA, SPE, ANCA PROF, SANDRA, CRYOGLOB, HBSAG, CU, HIV SCREEN, RONALD SERUM, PAT, METH, HBSAB, RA, HCBIGM #### [facility] , AST [Catalytic activity/Vol] 57 U/L High 13-39 [facility] Comment on above: Performed By: #### C BC, CMP, MG, LDH, [id number] #### [place] [address] [place] #### LEAD,ADULT, KAPPA, SPE, ANCA PROF, SANDRA, CRYOGLOB, HBSAG, CU, HIV SCREEN, RONALD SERUM, PAT, METH, HBSAB, RA, HCBIGM #### [facility] , Bilirubin [Mass/Vol] 0.3 mg/dL Normal 0.3-1.0 [facility] Comment on above: Performed By: #### C BC, CMP, MG, LDH, [id number] #### [place] [address] [place] #### LEAD,ADULT, KAPPA, SPE, ANCA PROF, SANDRA, CRYOGLOB, HBSAG, CU, HIV SCREEN, RONALD SERUM, PAT, METH, HBSAB, RA, HCBIGM #### [facility] , Bilirubin,Indirect 0.2 mg/dL Normal [facility] Comment on above: Performed By: #### C BC, CMP, MG, LDH, [id number] #### [place] [address] [place] #### LEAD,ADULT, KAPPA, SPE, ANCA PROF, SANDRA, CRYOGLOB, HBSAG, CU, HIV SCREEN, RONALD SERUM, PAT, METH, HBSAB, RA, HCBIGM #### [facility] , Bilirubin.indirect [Mass/Vol] 0.10 mg/dL Normal 0.03-0.18 [facility] Comment on above: Performed By: #### C BC, CMP, MG, LDH, [id number] #### [place] [address] [place] #### LEAD,ADULT, KAPPA, SPE, ANCA PROF, SANDRA, CRYOGLOB, HBSAG, CU, HIV SCREEN, RONALD SERUM, PAT, METH, HBSAB, RA, HCBIGM #### [facility] , Globulin (S) [Mass/Vol] 2.5 g/dL Normal [facility] Comment on above: Performed By: #### C BC, CMP, MG, LDH, [id number] #### [place] [address] [place] #### LEAD,ADULT, KAPPA, SPE, ANCA PROF, SANDRA, CRYOGLOB, HBSAG, CU, HIV SCREEN, RONALD SERUM, PAT, METH, HBSAB, RA, HCBIGM #### [facility] , Protein [Mass/Vol] 5.2 g/dL Significant change down 6.4-8.9 [facility] Comment on above: Performed By: #### C BC, CMP, MG, LDH, [id number] #### [place] [address] [place] #### LEAD,ADULT, KAPPA, SPE, ANCA PROF, SANDRA, CRYOGLOB, HBSAG, CU, HIV SCREEN, RONALD SERUM, PAT, METH, HBSAB, RA, HCBIGM #### [facility] , Hepatitis C virus IgG Ab [Pr esence] in Serum or Plasma by ImmunoassayOrdered By: Chele Gamino on 03-22-2023 HCV IgG IA Ql Non-Reactive Non Reactive [facility] IgA [Mass/volume] in Serum o r PlasmaOrdered By: Chele Gamino on 03-22-2023 IgA [Mass/Vol] 485 mg/dL 87-352 [facility] IgG [Mass/volume] in Serum o r PlasmaOrdered By: Chele Gamino on 03-22-2023 IgG [Mass/Vol] 1046 mg/dL [phone] [facility] IgM [Mass/volume] in Serum o r PlasmaOrdered By: Chele Gamino on 03-22-2023 IgM [Mass/Vol] 343 mg/dL 26-217 [facility] Immunofixation,Serumon 03-22 Immunofixation, Serum Normal . [facility] Comment on above: Result Comment: No m onoclonality detected. Performed By: #### C BC, CMP, MG, LDH, [id number] #### [facility] [address] [place] [address] [place] #### LEAD,ADULT, KAPPA, SPE, ANCA PROF, SANDRA, CRYOGLOB, HBSAG, CU, HIV SCREEN, RONALD SERUM, PAT, METH, HBSAB, RA, HCBIGM #### [facility] , Immunoglobulin A, Serum 485 mg/dL High 87-352 [facility] Comment on above: Performed By: #### C BC, CMP, MG, LDH, [id number] #### [facility] [address] [place] [address] [place] #### LEAD,ADULT, KAPPA, SPE, ANCA PROF, SANDRA, CRYOGLOB, HBSAG, CU, HIV SCREEN, RONALD SERUM, PAT, METH, HBSAB, RA, HCBIGM #### [facility] , Immunoglobulin G 1046 mg/dL Normal 586-1602 [facility] Comment on above: Performed By: #### C BC, CMP, MG, LDH, [id number] #### [facility] [address] [place] [address] [place] #### LEAD,ADULT, KAPPA, SPE, ANCA PROF, SANDRA, CRYOGLOB, HBSAG, CU, HIV SCREEN, RONALD SERUM, PAT, METH, HBSAB, RA, HCBIGM #### [facility] , Immunoglobulin M, Serum 343 mg/dL High 26-217 [facility] Comment on above: Performed By: #### C BC, CMP, MG, LDH, [id number] #### [facility] [address] [place] [address] #### LEAD,ADULT, KAPPA, SPE, ANCA PROF, SANDRA, CRYOGLOB, HBSAG, CU, HIV SCREEN, RONALD SERUM, PAT, METH, HBSAB, RA, HCBIGM #### [facility] , Lab Reportson 03-22-2023 Lab Reports [id number]#[id number]: 127 Normal [facility] Lactate [Moles/volume] in Se rum or PlasmaOrdered By: Brianne Umanzor on 03-22-2023 Lactate [Moles/Vol] 3.4 mmol/L 0.5-2.2 [facility] Comment on above: Critical Result : Ca lled to and read back by: KHUSHBU OLIVARES at: 03/22/2023 15:35:40 by:ACE Lactic Acidon 03-22-2023 Lactate [Moles/Vol] 4.4 mmol/L Off scale high 0.5-2.2 [facility] Comment on above: Result Comment: Crit ical Result : Called to and read back by: GINNY YODER at: 03/22/2023 11:08:56 by:[email or web address] PERFORMED BY: [place] [address] PATHOLOGIST CHIROPRACTIC TEACHER RUIZ CLIFTON M.D. Performed By: #### C BC, CMP, MG, LDH, [id number] #### [address] #### LEAD,ADULT, KAPPA, SPE, ANCA PROF, SANDRA, CRYOGLOB, HBSAG, CU, HIV SCREEN, RONALD SERUM, PAT, METH, HBSAB, RA, HCBIGM #### [facility] , Lactic Acid Reflexon 023 Lactic Acid Reflex 3.4 mmol/L Off scale high 0.5-2.2 [facility] Comment on above: Result Comment: Crit ical Result : Called to and read back by: KHUSHBU OLIVARES at: 03/22/2023 15:35:40 by:ACE PERFORMED BY: [place] [phone] PATHOLOGIST CHIROPRACTIC TEACHER RUIZ CLIFTON M.D. Performed By: #### L ACTIC RFX #### [address] Lactic Acid Reflex 3.9 mmol/L Off scale high 0.5-2.2 [facility] Comment on above: Result Comment: Crit ical Result : Called to and read back by: ADIEL MARTÍNEZ at: 03/22/2023 02:09:36 by:[email or web address] PERFORMED BY: [place] [address] PATHOLOGIST CHIROPRACTIC TEACHER RUIZ CLIFTON M.D. Performed By: #### C BC, CMP, MG, LDH, [id number] #### [address] #### LEAD,ADULT, KAPPA, SPE, ANCA PROF, SANDRA, CRYOGLOB, HBSAG, CU, HIV SCREEN, RONALD SERUM, PAT, METH, HBSAB, RA, HCBIGM #### [facility] , MR head/brain wo/w conon MR head/brain wo/w con [facility] [place] [address] MRI Report Signed Patient: Rica Stout MR#: [id number] 39 : 1995 Acct:[id number] Age/Sex: 27 / F ADM Date: 03/22/23 Loc: 4N Room: [address] [place] [address] Type: ADM IN Attending Dr: Brianne Umanzor [...] Lowell Blake M.D.03/22/2023 3:05 PM Dictation Location: [place] [address] Transcribed By: [facility] 03/22/23 1505 Dictated By: Lowell Blake II, MD 03/22/23 1454 Signed By: 03/22/23 1505 Normal [facility] Magnesiumon 03-22-2023 Magnesium [Mass/Vol] 1.7 mg/dL Low 1.9-2.7 [facility] Comment on above: Result Comment: PERF ORMED BY: [place] [address] PATHOLOGIST CHIROPRACTIC TEACHER RUIZ CLIFTON M.D. Performed By: #### C BC, CMP, MG, LDH, [id number] #### [address] #### LEAD,ADULT, KAPPA, SPE, ANCA PROF, SANDRA, CRYOGLOB, HBSAG, CU, HIV SCREEN, RONALD SERUM, PAT, METH, HBSAB, RA, HCBIGM #### [facility] , No Panel InformationOrdered By: Chele Gamino on 03-22-2023 Hepatitis C Interpretation See comment . [facility] Comment on above: Not infected with HC V unless early or acute infection issuspected (which may be delayed in an immunocompromisedindividual), or other evidence exists to indicate HCVinfection.Performed at: [facility] [employer] [id number] Director: Breezy Jones PhD, Phone: [phone] Hepatitis C RNA Quantitative N/A [facility] Protein Electrophoresis M-Tomas Not observed g/dL Not Observed [facility] Protein Electrophoresis Note See comment . [facility] Comment on above: Protein electrophore sis scan will follow via computer,mail, or line builder delivery.Performed at: [facility] [employer] [id number] Director: Breezy Jones PhD, Phone: [phone] Serum Immunofixation See comment . [facility] Comment on above: No monoclonality det ected. Opiates [Presence] in Urine by Screen methodOrdered By: Chele Gamino on 03-22-2023 Opiates Screen Ql (U) Negative Negative [facility] Phencyclidine Screen Ql (U)O rdered By: Chele Gamino on 03-22-2023 Phencyclidine Ql (U) Negative Negative [facility] Phosphate [Mass/volume] in S caitlyn or PlasmaOrdered By: Yoana Rico on 03-22-2023 Phosphate [Mass/Vol] 3.4 mg/dL 3.7-7.2 [facility] Phosphoruson 03-22-2023 Phosphate [Mass/Vol] 3.4 mg/dL Low 3.7-7.2 [facility] Comment on above: Performed By: #### C BC, CMP, MG, LDH, [id number] #### [facility] [address] #### LEAD,ADULT, KAPPA, SPE, ANCA PROF, SANDRA, CRYOGLOB, HBSAG, CU, HIV SCREEN, RONALD SERUM, PAT, METH, HBSAB, RA, HCBIGM #### [facility] , Protein Electrophoresis, Ser umon 03-22-2023 Albumin [Mass/Vol] 3.1 g/dL Normal 2.9-4.4 [facility] Comment on above: Performed By: #### C BC, CMP, MG, LDH, [id number] #### [address] #### LEAD,ADULT, KAPPA, SPE, ANCA PROF, SANDRA, CRYOGLOB, HBSAG, CU, HIV SCREEN, RONALD SERUM, PAT, METH, HBSAB, RA, HCBIGM #### [facility] , Albumin/Globulin [Mass ratio] 1.1 {ratio} Normal 0.7-1.7 [facility] Comment on above: Performed By: #### C BC, CMP, MG, LDH, [id number] #### [address] #### LEAD,ADULT, KAPPA, SPE, ANCA PROF, SANDRA, CRYOGLOB, HBSAG, CU, HIV SCREEN, RONALD SERUM, PAT, METH, HBSAB, RA, HCBIGM #### [facility] , Ywbnv-3-Oytohkuy 0.2 g/dL Normal 0.0-0.4 [facility] Comment on above: Performed By: #### C BC, CMP, MG, LDH, [id number] #### [address] #### LEAD,ADULT, KAPPA, SPE, ANCA PROF, SANDRA, CRYOGLOB, HBSAG, CU, HIV SCREEN, RONALD SERUM, PAT, METH, HBSAB, RA, HCBIGM #### [facility] , Obbms-4-Tgzxcfec 0.7 g/dL Normal 0.4-1.0 [facility] Comment on above: Performed By: #### C BC, CMP, MG, LDH, [id number] #### [place] [address] [place] #### LEAD,ADULT, KAPPA, SPE, ANCA PROF, SANDRA, CRYOGLOB, HBSAG, CU, HIV SCREEN, RONALD SERUM, PAT, METH, HBSAB, RA, HCBIGM #### [facility] , Beta Globulin 0.9 g/dL Normal 0.7-1.3 [facility] Comment on above: Performed By: #### C BC, CMP, MG, LDH, [id number] #### [address] #### LEAD,ADULT, KAPPA, SPE, ANCA PROF, SANDRA, CRYOGLOB, HBSAG, CU, HIV SCREEN, RONALD SERUM, PAT, METH, HBSAB, RA, HCBIGM #### [facility] , Gamma Globulin 1.1 g/dL Normal 0.4-1.8 [facility] Comment on above: Performed By: #### C BC, CMP, MG, LDH, [id number] #### [address] #### LEAD,ADULT, KAPPA, SPE, ANCA PROF, SANDRA, CRYOGLOB, HBSAG, CU, HIV SCREEN, RONALD SERUM, PAT, METH, HBSAB, RA, HCBIGM #### [facility] , Globulin (S) [Mass/Vol] 2.8 g/dL Normal 2.2-3.9 [facility] Comment on above: Performed By: #### C BC, CMP, MG, LDH, [id number] #### [address] #### LEAD,ADULT, KAPPA, SPE, ANCA PROF, SANDRA, CRYOGLOB, HBSAG, CU, HIV SCREEN, RONALD SERUM, PAT, METH, HBSAB, RA, HCBIGM #### [facility] , M-Tomas Not Observed Normal Not Observed [facility] Comment on above: Performed By: #### C BC, CMP, MG, LDH, [id number] #### [facility] [address] [place] [address] [place] #### LEAD,ADULT, KAPPA, SPE, ANCA PROF, SANDRA, CRYOGLOB, HBSAG, CU, HIV SCREEN, RONALD SERUM, PAT, METH, HBSAB, RA, HCBIGM #### [facility] , Protein [Mass/Vol] 5.9 g/dL Low 6.0-8.5 [facility] Comment on above: Performed By: #### C BC, CMP, MG, LDH, [id number] #### [address] #### LEAD,ADULT, KAPPA, SPE, ANCA PROF, SANDRA, CRYOGLOB, HBSAG, CU, HIV SCREEN, RONALD SERUM, PAT, METH, HBSAB, RA, HCBIGM #### [facility] , SPE-Note Normal . [facility] Comment on above: Result Comment: Prot ein electrophoresis scan will follow via computer, mail, or line builder delivery. Performed at: [address] [id number] Defensive Driving Instructor: Breezy Jones PhD, Phone: [phone] PERFORMED BY: [place] [address] PATHOLOGIST CHIROPRACTIC TEACHER RUIZ CLIFTON M.D. Performed By: #### C BC, CMP, MG, LDH, [id number] #### [address] #### LEAD,ADULT, KAPPA, SPE, ANCA PROF, SANDRA, CRYOGLOB, HBSAG, CU, HIV SCREEN, RONALD SERUM, PAT, METH, HBSAB, RA, HCBIGM #### [facility] , Protein [Mass/volume] in Ser um or PlasmaOrdered By: Chele Gamino on 03-22-2023 Protein [Mass/Vol] 5.9 g/dL 6.0-8.5 [facility] RAD - CT Reporton 03-22-2023 RAD - CT Report [id number]: 127 Normal [facility] Serum cryoglobulin detection Ordered By: Chele Gamino on 03-22-2023 Cryoglobulin Ql (S) See comment None detected [facility] Comment on above: None Detected at 72 hoursThis test was developed and its performance characteristicsdetermined by [facility]. It has not been cleared orapproved by the Food and Drug Administration.Performed at: [facility] [address] [id number] Director: Breezy Jones PhD, Phone: [phone] Serum globulin measurement ( mass/volume)Ordered By: Chele Gamino on 03-22-2023 Globulin (S) [Mass/Vol] 2.8 g/dL 2.2-3.9 [facility] Serum or plasma albumin/glob ulin mass ratioOrdered By: Chele Gamino on 03-22-2023 Albumin/Globulin [Mass ratio] 1.1 {ratio} 0.7-1.7 [facility] Serum or plasma alpha 1 glob ulin measurement by electrophoresis (mass/volume)Ordered By: Chele Gamino on 03-22-2023 Alpha 1 globulin Elph [Mass/Vol] 0.2 g/dL 0.0-0.4 [facility] Serum or plasma alpha 2 glob ulin measurement by electrophoresis (mass/volume)Ordered By: Chele Gamino on 03-22-2023 Alpha 2 globulin Elph [Mass/Vol] 0.7 g/dL 0.4-1.0 [facility] Serum or plasma beta globuli n measurement by electrophoresis (mass/volume)Ordered By: Chele Gamino on 03-22-2023 Beta globulin Elph [Mass/Vol] 0.9 g/dL 0.7-1.3 [facility] Serum or plasma free cefurox audelia measurement (mass/volume)Ordered By: Chele Gamino on 03-22-2023 Cefuroxime free [Mass/Vol] Negative Negative [facility] Comment on above: Performed at: [facility] [address] [id number] Director: Breezy Jones PhD, Phone: [phone] Serum or plasma gamma globul in measurement by electrophoresis (mass/volume)Ordered By: Chele Gamino on 03-22-2023 Gamma globulin Elph [Mass/Vol] 1.1 g/dL 0.4-1.8 [facility] Serum or plasma non-glucuron idated bilirubin measurement (mass/volume)Ordered By: Yoana Rico on 03-22-2023 Bilirubin.indirect [Mass/Vol] 0.2 mg/dL [facility] Thyroid Stimulating Hormoneo n 03-22-2023 TSH Qn 2.53 m[IU]/L Normal 0.45-5.33 [facility] Comment on above: Result Comment: PERF ORMED BY: [place] [address] PATHOLOGIST CHIROPRACTIC TEACHER RUIZ CLIFTON M.D. Performed By: #### C BC, CMP, MG, LDH, [id number] #### [address] #### LEAD,ADULT, KAPPA, SPE, ANCA PROF, SANDRA, CRYOGLOB, HBSAG, CU, HIV SCREEN, RONALD SERUM, PAT, METH, HBSAB, RA, HCBIGM #### [facility] , Thyrotropin [Units/volume] i n Serum or PlasmaOrdered By: Chele Gamino on 03-22-2023 TSH Qn 2.53 m[IU]/L 0.45-5.33 [facility] Total Protein, CSF #2on 09- Total Protein, CSF #2 36 mg/dL Normal 15-45 [facility] Comment on above: Order Comment: Comme nt Tube 3 Result Comment: PERF ORMED BY: [place] [address] PATHOLOGIST CHIROPRACTIC TEACHER RUIZ CLIFTON M.D. Performed By: #### C BC, CMP, MG, LDH, [id number] #### [place] [address] [place] #### LEAD,ADULT, KAPPA, SPE, ANCA PROF, SANDRA, CRYOGLOB, HBSAG, CU, HIV SCREEN, RONALD SERUM, PAT, METH, HBSAB, RA, HCBIGM #### [facility] , Total Protein, Spinal Fluido n 03-22-2023 Total Protein, Spinal Fluid 39 mg/dL Normal 15-45 [facility] Comment on above: Order Comment: Comme nt Tube 1 Result Comment: PERF ORMED BY: [place] [address] PATHOLOGIST CHIROPRACTIC TEACHER RUIZ CLIFTON M.D. Performed By: #### C BC, CMP, MG, LDH, [id number] #### [address] #### LEAD,ADULT, KAPPA, SPE, ANCA PROF, SANDRA, CRYOGLOB, HBSAG, CU, HIV SCREEN, RONALD SERUM, PAT, METH, HBSAB, RA, HCBIGM #### [facility] , Vit. B12/Folate Profileon Cobalamin (Vitamin B12) [Mass/Vol] 417 pg/mL Normal 180-914 [facility] Comment on above: Performed By: #### C BC, CMP, MG, LDH, [id number] #### [address] #### LEAD,ADULT, KAPPA, SPE, ANCA PROF, SANDRA, CRYOGLOB, HBSAG, CU, HIV SCREEN, RONALD SERUM, PAT, METH, HBSAB, RA, HCBIGM #### [facility] , Folate 2.3 ng/mL Low >5.9 [facility] Comment on above: Result Comment: Astrid te reference range: >5.9 ng/ml The WHO technical consultation on folate and vitamin b12 deficiencies has determined that folate concentrations less than 4 ng/ml are considered deficient. PERFORMED BY: [place] [address] PATHOLOGIST CHIROPRACTIC TEACHER RUIZ CLIFTON M.D. Performed By: #### C BC, CMP, MG, LDH, [id number] #### [address] #### LEAD,ADULT, KAPPA, SPE, ANCA PROF, SANDRA, CRYOGLOB, HBSAG, CU, HIV SCREEN, RONALD SERUM, PAT, METH, HBSAB, RA, HCBIGM #### [facility] , Vitamin B12 ser/plasOrdered By: Yoana Rico on 03-22-2023 Cobalamin (Vitamin B12) [Mass/Vol] 417 pg/mL 180-914 [facility] Vitamin E, Alpha Gamma Tocop on 03-22-2023 Vitamin E Alpha Tocopherol 10.9 mg/L Normal 5.9-19.4 [facility] Comment on above: Result Comment: This test was developed and its performance characteristics determined by [facility]. It has not been cleared or approved by the Food and Drug Administration. Performed By: #### C BC, CMP, MG, LDH, [id number] #### [facility] [address] [place] [address] [place] #### LEAD,ADULT, KAPPA, SPE, ANCA PROF, SANDRA, CRYOGLOB, HBSAG, CU, HIV SCREEN, RONALD SERUM, PAT, METH, HBSAB, RA, HCBIGM #### [facility] , Vitamin E GammaTocopherol 1.9 mg/L Normal 0.7-4.9 [facility] Comment on above: Result Comment: This test was developed and its performance characteristics determined by [facility]. It has not been cleared or approved by the Food and Drug Administration. Reference intervals for alpha and gamma-tocopherol determined from National Health and Nutrition Examination Survey, 2339-3505. Individuals with alpha-tocopherol levels less than 5.0 mg/L are considered vitamin E deficient. Performed at: [address] [id number] Defensive Driving Instructor: Lisa Ramos MD, Phone: [phone] Performed By: #### C BC, CMP, MG, LDH, [id number] #### [facility] [address] [place] [address] [place] #### LEAD,ADULT, KAPPA, SPE, ANCA PROF, SANDRA, CRYOGLOB, HBSAG, CU, HIV SCREEN, RONALD SERUM, PAT, METH, HBSAB, RA, HCBIGM #### [facility] , XR chest 1V portableon 03-22 XR chest 1V portable [facility] [place] [address] [place] [address] XRay Report Signed Patient: Rica Stout MR#: [id number] : 1995 Acct:[id number] Age/Sex: 27 / F ADM Date: 03/22/23 Loc: 4N Room: 6Y1770-9 Type: ADM IN Attending Dr: Parveen Keller [...] Dave Clark M.D.03/22/2023 8:07 AM Dictation Location: [place] [address] Transcribed By: [facility] 03/22/23 0807 Dictated By: Dave Clark DO 03/22/23 0807 Signed By: 03/22/23 0807 Normal [facility] XR pre/post mri xrayon 03-22 XR pre/post mri xray [facility] [place] [address] MRI Report Signed Patient: Rica Stout MR#: [id number] : 1995 Acct:[id number] Age/Sex: 27 / F ADM Date: 03/22/23 Loc: 4N Room: [address] [place] [address] Type: ADM IN Attending Dr: Brianne Umanzor MD Copies to: DO Brianne Stevenson MD Ordering Provider: Chele Gamino DO; Brianne Umanzor MD Date of Service: 03/22/23 MR/MR lumbar spine wo/w con: CIDP rule out ([id number]) XR/XR pre/post mri xray: . MR lumbar [...] Lowell Blake M.D.03/22/2023 3:10 PM Dictation Location: [place] [address] Transcribed By: [facility] 03/22/23 1510 Dictated By: Lowell Blake II, MD 03/22/23 1505 Signed By: 03/22/23 1510 [facility] Activated partial thrombopla stin time (aPTT) in platelet poor plasma by coagulation aOrdered By: Bernard Peterson on 03-21-2023 aPTT Coag (PPP) [Time] 30.4 s 25.1-36.5 [facility] Aerobic cultureOrdered By: Olivia Peterson on 03-21-2023 Bacteria identified Aer cx Nom (Unsp spec) No Growth 2 Days [facility] Alanine aminotransferase [En zymatic activity/volume] in Serum or PlasmaOrdered By: Bernard Peterson on 03-21-2023 ALT [Catalytic activity/Vol] 37 U/L 7-52 [facility] Albumin [Mass/volume] in Ser um or Plasma by Bromocresol green (BCG) dye binding methoOrdered By: Bernard Peterson on 03-21-2023 Albumin BCG dye [Mass/Vol] 3.5 g/dL 3.5-5.7 [facility] Alkaline phosphatase [Enzyma tic activity/volume] in Serum or PlasmaOrdered By: Bernard Peterson on 03-21-2023 ALP [Catalytic activity/Vol] 112 U/L 34-104 [facility] Anaerobic cultureOrdered By: Bernard Peterson on 03-21-2023 Bacteria identified Anaer cx Nom (Unsp spec) No Anaerobes Isolated 3 Days [facility] Aspartate aminotransferase [ Enzymatic activity/volume] in Serum or PlasmaOrdered By: Bernard Peterson on 03-21-2023 AST [Catalytic activity/Vol] 79 U/L 13-39 [facility] Automated erythrocytes count in urine sediment (number/area)Ordered By: PROVIDER TEMP on 03-21-2023 RBC Auto (Urine sed) [#/Area] 0-1 [HPF] 0-4 [facility] Automated leukocytes count i n urine sediment (number/area)Ordered By: PROVIDER TEMP on 03-21-2023 WBC Auto (Urine sed) [#/Area] 20-49 [HPF] 0-4 [facility] Automated urine hyaline cast s count (number/volume)Ordered By: PROVIDER TEMP on 03-21-2023 Hyaline casts Auto (U) [#/Vol] None seen [LPF] 0-1 [facility] Bacterial blood cultureOrder ed By: Bernard Peterson on 03-21-2023 Bacteria identified Cx Nom (Bld) NO GROWTH 5 DAYS [facility] Basic Metabolic Panelon 02-21 Anion gap [Moles/Vol] 16.2 mmol/L High 6.0-15.0 [facility] Comment on above: Performed By: #### C BC, CMP, MG, LDH, [id number] #### [address] #### LEAD,ADULT, KAPPA, SPE, ANCA PROF, SANDRA, CRYOGLOB, HBSAG, CU, HIV SCREEN, RONALD SERUM, PAT, METH, HBSAB, RA, HCBIGM #### [facility] , Calcium [Mass/Vol] 8.5 mg/dL Low 8.6-10.3 [facility] Comment on above: Performed By: #### C BC, CMP, MG, LDH, [id number] #### [address] #### LEAD,ADULT, KAPPA, SPE, ANCA PROF, SANDRA, CRYOGLOB, HBSAG, CU, HIV SCREEN, RONALD SERUM, PAT, METH, HBSAB, RA, HCBIGM #### [facility] , Chloride [Moles/Vol] 108 mmol/L High 98-107 [facility] Comment on above: Performed By: #### C BC, CMP, MG, LDH, [id number] #### [address] #### LEAD,ADULT, KAPPA, SPE, ANCA PROF, SANDRA, CRYOGLOB, HBSAG, CU, HIV SCREEN, RONALD SERUM, PAT, METH, HBSAB, RA, HCBIGM #### [facility] , CO2 [Moles/Vol] 20.0 mmol/L Low 21.0-31.0 [facility] Comment on above: Performed By: #### C BC, CMP, MG, LDH, [id number] #### [place] [address] [place] #### LEAD,ADULT, KAPPA, SPE, ANCA PROF, SANDRA, CRYOGLOB, HBSAG, CU, HIV SCREEN, RONALD SERUM, PAT, METH, HBSAB, RA, HCBIGM #### [facility] , Creatinine [Mass/Vol] 0.49 mg/dL Low 0.60-1.20 [facility] Comment on above: Performed By: #### C BC, CMP, MG, LDH, [id number] #### [address] #### LEAD,ADULT, KAPPA, SPE, ANCA PROF, SANDRA, CRYOGLOB, HBSAG, CU, HIV SCREEN, RONALD SERUM, PAT, METH, HBSAB, RA, HCBIGM #### [facility] , Creatinine Clr Calc Pharmacy 148.92 [facility] Comment on above: Performed By: #### C BC, CMP, MG, LDH, [id number] #### [address] #### LEAD,ADULT, KAPPA, SPE, ANCA PROF, SANDRA, CRYOGLOB, HBSAG, CU, HIV SCREEN, RONALD SERUM, PAT, METH, HBSAB, RA, HCBIGM #### [facility] , GFR/1.73 sq M.predicted MDRD (S/P/Bld) [Vol rate/Area] mL/min/{1.73_m2} [facility] Comment on above: Performed By: #### C BC, CMP, MG, LDH, [id number] #### [place] [address] [place] #### LEAD,ADULT, KAPPA, SPE, ANCA PROF, SANDRA, CRYOGLOB, HBSAG, CU, HIV SCREEN, RONALD SERUM, PAT, METH, HBSAB, RA, HCBIGM #### [facility] , Glucose [Mass/Vol] 130 mg/dL High 70-100 [facility] Comment on above: Result Comment: [place] Glucose Reference Range is dependent on time and content of last meal. Glucose of more than 200 mg/dL in a nonstressed, ambulatory subject supports the diagnosis of Diabetes Mellitus. ADA recommended reference range Performed By: #### C BC, CMP, MG, LDH, [id number] #### [place] [address] [place] #### LEAD,ADULT, KAPPA, SPE, ANCA PROF, SANDRA, CRYOGLOB, HBSAG, CU, HIV SCREEN, RONALD SERUM, PAT, METH, HBSAB, RA, HCBIGM #### [facility] , Potassium [Moles/Vol] 3.2 mmol/L Low 3.5-5.1 [facility] Comment on above: Performed By: #### C BC, CMP, MG, LDH, [id number] #### [place] [address] [place] #### LEAD,ADULT, KAPPA, SPE, ANCA PROF, SANDRA, CRYOGLOB, HBSAG, CU, HIV SCREEN, RONALD SERUM, PAT, METH, HBSAB, RA, HCBIGM #### [facility] , Sodium [Moles/Vol] 141 mmol/L Normal 136-145 [facility] Comment on above: Performed By: #### C BC, CMP, MG, LDH, [id number] #### [place] [address] [place] #### LEAD,ADULT, KAPPA, SPE, ANCA PROF, SANDRA, CRYOGLOB, HBSAG, CU, HIV SCREEN, RONALD SERUM, PAT, METH, HBSAB, RA, HCBIGM #### [facility] , Urea nitrogen [Mass/Vol] 3 mg/dL Low 7-25 [facility] Comment on above: Performed By: #### C BC, CMP, MG, LDH, [id number] #### [place] [address] [place] #### LEAD,ADULT, KAPPA, SPE, ANCA PROF, SANDRA, CRYOGLOB, HBSAG, CU, HIV SCREEN, RONALD SERUM, PAT, METH, HBSAB, RA, HCBIGM #### [facility] , Basophils Auto (Bld) [#/Vol] Ordered By: Bernard Peterson on 03-21-2023 Basophils (Bld) [#/Vol] 0.1 10*3/uL 0.0-0.2 [facility] Basophils/100 WBC Auto (Bld) Ordered By: Bernard Peterson on 03-21-2023 Basophils/100 WBC (Bld) 1.6 % . F [facility] Bilirubin Test strip Ql (U)O rdered By: PROVIDER TEMP on 03-21-2023 Bilirubin Ql (U) Negative Negative [facility] Bilirubin.direct [Mass/volum e] in Serum or PlasmaOrdered By: Bernard Peterson on 03-21-2023 Bilirubin.direct [Mass/Vol] 0.10 mg/dL 0.03-0.18 [facility] Bilirubin.total [Mass/volume ] in Serum or PlasmaOrdered By: Bernard Peterson on 03-21-2023 Bilirubin [Mass/Vol] 0.5 mg/dL 0.3-1.0 [facility] Blood Cultureon 03-21-2023 Bacteria identified Cx Nom (Bld) NO GROWTH 5 DAYS PERFORMED BY: [place] [address] PATHOLOGIST CHIROPRACTIC TEACHER RUIZ CLIFTON M.D. Normal [facility] Comment on above: Performed By: #### C BC, CMP, MG, LDH, [id number] #### [facility] [address] [place] [address] #### LEAD,ADULT, KAPPA, SPE, ANCA PROF, SANDRA, CRYOGLOB, HBSAG, CU, HIV SCREEN, RONALD SERUM, PAT, METH, HBSAB, RA, HCBIGM #### [facility] , C reactive protein [Mass/vol ume] in Serum or PlasmaOrdered By: Bernard Peterson on 03-21-2023 CRP [Mass/Vol] < 0.5 mg/dL 0.0-0.5 [facility] C-Reactive Proteinon 023 CRP [Mass/Vol] mg/L Normal 0.0-0.5 [facility] Comment on above: Result Comment: PERF ORMED BY: [place] [address] PATHOLOGIST CHIROPRACTIC TEACHER RUIZ CLIFTON M.D. Performed By: #### C BC, CMP, MG, LDH, [id number] #### [facility] [address] #### LEAD,ADULT, KAPPA, SPE, ANCA PROF, SANDRA, CRYOGLOB, HBSAG, CU, HIV SCREEN, RONALD SERUM, PAT, METH, HBSAB, RA, HCBIGM #### [facility] , Calcium [Mass/volume] in Ser um or PlasmaOrdered By: Bernard Peterson on 03-21-2023 Calcium [Mass/Vol] 8.5 mg/dL 8.6-10.3 [facility] Carbon dioxide, total [Moles /volume] in Serum or PlasmaOrdered By: Bernard Peterson on 03-21-2023 CO2 [Moles/Vol] 20.0 mmol/L 21.0-31.0 [facility] Casts typing in urine sedime nt by light microscopyOrdered By: PROVIDER TEMP on 03-21-2023 Casts LM Nom (Urine sed) None seen [LPF] None Seen [facility] Cerebrospinal fluid post-chloé trifugation appearance determinationOrdered By: Bernard Peterson on 03-21-2023 Appearance (Spun CSF) Colorless Colorless [facility] Cerebrospinal fluid sample t ube volume measurementOrdered By: Bernard Peterson on 03-21-2023 Specimen volume (CSF) 3.5 mL [facility] Chloride [Moles/volume] in S caitlyn or PlasmaOrdered By: Bernard Peterson on 03-21-2023 Chloride [Moles/Vol] 108 mmol/L 98-107 [facility] Color Auto (U)Ordered By: YARON GUERRERO TEMLata on 03-21-2023 Color (U) Yellow Yellow [facility] Color CSFOrdered By: Bernard Peterson on 03-21-2023 Color (CSF) Colorless Colorless [facility] Complete Blood Count Auto Di ffon 03-21-2023 Basophils (Bld) [#/Vol] 0.1 10*3/uL Normal 0.0-0.2 [facility] Comment on above: Performed By: #### C BC, CMP, MG, LDH, [id number] #### [facility] [address] [place] [address] [place] #### LEAD,ADULT, KAPPA, SPE, ANCA PROF, SANDRA, CRYOGLOB, HBSAG, CU, HIV SCREEN, RONALD SERUM, PAT, METH, HBSAB, RA, HCBIGM #### [facility] , Basophils/100 WBC (Bld) 1.6 % Normal . [facility] Comment on above: Performed By: #### C BC, CMP, MG, LDH, [id number] #### [facility] [address] [place] [address] [place] #### LEAD,ADULT, KAPPA, SPE, ANCA PROF, SANDRA, CRYOGLOB, HBSAG, CU, HIV SCREEN, RONALD SERUM, PAT, METH, HBSAB, RA, HCBIGM #### [facility] , Eosinophils (Bld) [#/Vol] 0.2 10*3/uL Normal 0.0-0.45 [facility] Comment on above: Performed By: #### C BC, CMP, MG, LDH, [id number] #### [facility] [address] [place] [address] [place] #### LEAD,ADULT, KAPPA, SPE, ANCA PROF, SANDRA, CRYOGLOB, HBSAG, CU, HIV SCREEN, RONALD SERUM, PAT, METH, HBSAB, RA, HCBIGM #### [facility] , Eosinophils/100 WBC (Bld) 2.7 % Normal . [facility] Comment on above: Performed By: #### C BC, CMP, MG, LDH, [id number] #### [facility] [address] [place] [address] [place] #### LEAD,ADULT, KAPPA, SPE, ANCA PROF, SANDRA, CRYOGLOB, HBSAG, CU, HIV SCREEN, RONALD SERUM, PAT, METH, HBSAB, RA, HCBIGM #### [facility] , Erythrocyte distribution width (RBC) [Ratio] 14.5 % Normal 11.9-15.3 [facility] Comment on above: Performed By: #### C BC, CMP, MG, LDH, [id number] #### [address] #### LEAD,ADULT, KAPPA, SPE, ANCA PROF, SANDRA, CRYOGLOB, HBSAG, CU, HIV SCREEN, RONALD SERUM, PAT, METH, HBSAB, RA, HCBIGM #### [facility] , Hematocrit (Bld) [Volume fraction] 37.8 % Normal 34.0-46.4 [facility] Comment on above: Performed By: #### C BC, CMP, MG, LDH, [id number] #### [address] #### LEAD,ADULT, KAPPA, SPE, ANCA PROF, SANDRA, CRYOGLOB, HBSAG, CU, HIV SCREEN, RONALD SERUM, PAT, METH, HBSAB, RA, HCBIGM #### [facility] , Hemoglobin (Bld) [Mass/Vol] 12.7 g/dL Normal 11.8-15.4 [facility] Comment on above: Performed By: #### C BC, CMP, MG, LDH, [id number] #### [address] #### LEAD,ADULT, KAPPA, SPE, ANCA PROF, SANDRA, CRYOGLOB, HBSAG, CU, HIV SCREEN, RONALD SERUM, PAT, METH, HBSAB, RA, HCBIGM #### [facility] , Lymphocytes (Bld) [#/Vol] 2.1 10*3/uL Normal 1.00-4.8 [facility] Comment on above: Performed By: #### C BC, CMP, MG, LDH, [id number] #### [address] #### LEAD,ADULT, KAPPA, SPE, ANCA PROF, SANDRA, CRYOGLOB, HBSAG, CU, HIV SCREEN, RONALD SERUM, PAT, METH, HBSAB, RA, HCBIGM #### [facility] , Lymphocytes/100 WBC (Bld) 29.7 % Normal . [facility] Comment on above: Performed By: #### C BC, CMP, MG, LDH, [id number] #### [address] #### LEAD,ADULT, KAPPA, SPE, ANCA PROF, SANDRA, CRYOGLOB, HBSAG, CU, HIV SCREEN, RONALD SERUM, PAT, METH, HBSAB, RA, HCBIGM #### [facility] , MCH (RBC) [Entitic mass] 36.3 pg High 24.7-34.3 [facility] Comment on above: Performed By: #### C BC, CMP, MG, LDH, [id number] #### [address] #### LEAD,ADULT, KAPPA, SPE, ANCA PROF, SANDRA, CRYOGLOB, HBSAG, CU, HIV SCREEN, RONALD SERUM, PAT, METH, HBSAB, RA, HCBIGM #### [facility] , MCV (RBC) [Entitic vol] 108.6 fL High 80-100 F [facility] Comment on above: Performed By: #### C BC, CMP, MG, LDH, [id number] #### [place] [address] [place] #### LEAD,ADULT, KAPPA, SPE, ANCA PROF, SANDRA, CRYOGLOB, HBSAG, CU, HIV SCREEN, RONALD SERUM, PAT, METH, HBSAB, RA, HCBIGM #### [facility] , Mean Corpuscular HGB Conc 33.5 g/dL Normal 32.0-35.0 [facility] Comment on above: Performed By: #### C BC, CMP, MG, LDH, [id number] #### [place] [address] [place] #### LEAD,ADULT, KAPPA, SPE, ANCA PROF, SANDRA, CRYOGLOB, HBSAG, CU, HIV SCREEN, RONALD SERUM, PAT, METH, HBSAB, RA, HCBIGM #### [facility] , Monocytes (Bld) [#/Vol] 0.5 10*3/uL Normal 0.0-0.8 [facility] Comment on above: Performed By: #### C BC, CMP, MG, LDH, [id number] #### [address] #### LEAD,ADULT, KAPPA, SPE, ANCA PROF, SANDRA, CRYOGLOB, HBSAG, CU, HIV SCREEN, RONALD SERUM, PAT, METH, HBSAB, RA, HCBIGM #### [facility] , Monocytes/100 WBC (Bld) 19.31 % Normal 0.00-20.00 [facility] Comment on above: Performed By: #### C BC, CMP, MG, LDH, [id number] #### [address] #### LEAD,ADULT, KAPPA, SPE, ANCA PROF, SANDRA, CRYOGLOB, HBSAG, CU, HIV SCREEN, RONALD SERUM, PAT, METH, HBSAB, RA, HCBIGM #### [facility] , Monocytes/100 WBC (Bld) 7.6 % Normal . [facility] Comment on above: Performed By: #### C BC, CMP, MG, LDH, [id number] #### [place] [address] [place] #### LEAD,ADULT, KAPPA, SPE, ANCA PROF, SANDRA, CRYOGLOB, HBSAG, CU, HIV SCREEN, RONALD SERUM, PAT, METH, HBSAB, RA, HCBIGM #### [facility] , Neutrophils (Bld) [#/Vol] 4.2 10*3/uL Normal 1.8-7.7 [facility] Comment on above: Performed By: #### C BC, CMP, MG, LDH, [id number] #### [place] [address] [place] #### LEAD,ADULT, KAPPA, SPE, ANCA PROF, SANDRA, CRYOGLOB, HBSAG, CU, HIV SCREEN, RONALD SERUM, PAT, METH, HBSAB, RA, HCBIGM #### [facility] , Neutrophils/100 WBC (Bld) 58.4 % Normal . [facility] Comment on above: Performed By: #### C BC, CMP, MG, LDH, [id number] #### [place] [address] [place] #### LEAD,ADULT, KAPPA, SPE, ANCA PROF, SANDRA, CRYOGLOB, HBSAG, CU, HIV SCREEN, RONALD SERUM, PAT, METH, HBSAB, RA, HCBIGM #### [facility] , NRBC% 0.1 /100{WBC} Normal 0-0.5 [facility] Comment on above: Performed By: #### C BC, CMP, MG, LDH, [id number] #### [place] [address] [place] #### LEAD,ADULT, KAPPA, SPE, ANCA PROF, SANDRA, CRYOGLOB, HBSAG, CU, HIV SCREEN, RONALD SERUM, PAT, METH, HBSAB, RA, HCBIGM #### [facility] , [place] mean volume (Bld) [Entitic vol] 7.9 fL Normal 6.3-10.7 [facility] Comment on above: Performed By: #### C BC, CMP, MG, LDH, [id number] #### [place] [address] [place] #### LEAD,ADULT, KAPPA, SPE, ANCA PROF, SANDRA, CRYOGLOB, HBSAG, CU, HIV SCREEN, RONALD SERUM, PAT, METH, HBSAB, RA, HCBIGM #### [facility] , Platelets (Bld) [#/Vol] 319 10*3/uL Normal 150-450 [facility] Comment on above: Performed By: #### C BC, CMP, MG, LDH, [id number] #### [place] [address] [place] #### LEAD,ADULT, KAPPA, SPE, ANCA PROF, SANDRA, CRYOGLOB, HBSAG, CU, HIV SCREEN, RONALD SERUM, PAT, METH, HBSAB, RA, HCBIGM #### [facility] , RBC (Bld) [#/Vol] 3.48 10*6/uL Low 3.60-5.00 [facility] Comment on above: Performed By: #### C BC, CMP, MG, LDH, [id number] #### [facility] [address] [place] [address] #### LEAD,ADULT, KAPPA, SPE, ANCA PROF, SANDRA, CRYOGLOB, HBSAG, CU, HIV SCREEN, RONALD SERUM, PAT, METH, HBSAB, RA, HCBIGM #### [facility] , WBC (Bld) [#/Vol] 7.2 10*3/uL Normal 3.8-11.6 [facility] Comment on above: Performed By: #### C BC, CMP, MG, LDH, [id number] #### [address] #### LEAD,ADULT, KAPPA, SPE, ANCA PROF, SANDRA, CRYOGLOB, HBSAG, CU, HIV SCREEN, RONALD SERUM, PAT, METH, HBSAB, RA, HCBIGM #### [facility] , Creatinine [Mass/volume] in Serum or PlasmaOrdered By: Bernard Peterson on 03-21-2023 Creatinine [Mass/Vol] 0.49 mg/dL 0.60-1.20 [facility] Dipstick and Microscopicon 0 03-21-2023 Appearance (U) Cloudy Critically abnormal Clear [facility] Comment on above: Order Comment: Name Collection Type:: Clean-Voided Midstream Performed By: #### C BC, CMP, MG, LDH, [id number] #### [place] [address] [place] #### LEAD,ADULT, KAPPA, SPE, ANCA PROF, SANDRA, CRYOGLOB, HBSAG, CU, HIV SCREEN, RONALD SERUM, PAT, METH, HBSAB, RA, HCBIGM #### [facility] , Bacteria,Urine 4+ High None Seen [facility] Comment on above: Order Comment: Name Collection Type:: Clean-Voided Midstream Performed By: #### C BC, CMP, MG, LDH, [id number] #### [address] #### LEAD,ADULT, KAPPA, SPE, ANCA PROF, SANDRA, CRYOGLOB, HBSAG, CU, HIV SCREEN, RONALD SERUM, PAT, METH, HBSAB, RA, HCBIGM #### [facility] , Bilirubin,Urine Negative Normal Negative [facility] Comment on above: Order Comment: Name Collection Type:: Clean-Voided Midstream Performed By: #### C BC, CMP, MG, LDH, [id number] #### [address] #### LEAD,ADULT, KAPPA, SPE, ANCA PROF, SANDRA, CRYOGLOB, HBSAG, CU, HIV SCREEN, RONALD SERUM, PAT, METH, HBSAB, RA, HCBIGM #### [facility] , Color (U) Yellow Normal Yellow [facility] Comment on above: Order Comment: Name Collection Type:: Clean-Voided Midstream Performed By: #### C BC, CMP, MG, LDH, [id number] #### [address] #### LEAD,ADULT, KAPPA, SPE, ANCA PROF, SANDRA, CRYOGLOB, HBSAG, CU, HIV SCREEN, RONALD SERUM, PAT, METH, HBSAB, RA, HCBIGM #### [facility] , Glucose Ql (U) Normal Normal Normal [facility] Comment on above: Order Comment: Name Collection Type:: Clean-Voided Midstream Performed By: #### C BC, CMP, MG, LDH, [id number] #### [place] [address] [place] #### LEAD,ADULT, KAPPA, SPE, ANCA PROF, SANDRA, CRYOGLOB, HBSAG, CU, HIV SCREEN, RONALD SERUM, PAT, METH, HBSAB, RA, HCBIGM #### [facility] , Hyaline Casts,Urine None Seen Normal 0-1 [facility] Comment on above: Order Comment: Name Collection Type:: Clean-Voided Midstream Performed By: #### C BC, CMP, MG, LDH, [id number] #### [facility] [address] [place] [address] #### LEAD,ADULT, KAPPA, SPE, ANCA PROF, SANDRA, CRYOGLOB, HBSAG, CU, HIV SCREEN, RONALD SERUM, PAT, METH, HBSAB, RA, HCBIGM #### [facility] , Ketones Ql (U) Trace High Negative [facility] Comment on above: Order Comment: Name Collection Type:: Clean-Voided Midstream Performed By: #### C BC, CMP, MG, LDH, [id number] #### [address] #### LEAD,ADULT, KAPPA, SPE, ANCA PROF, SANDRA, CRYOGLOB, HBSAG, CU, HIV SCREEN, RONALD SERUM, PAT, METH, HBSAB, RA, HCBIGM #### [facility] , Leukocyte esterase Test strip Ql (U) 2+ High Negative [facility] Comment on above: Order Comment: Name Collection Type:: Clean-Voided Midstream Performed By: #### C BC, CMP, MG, LDH, [id number] #### [facility] [address] [place] [address] #### LEAD,ADULT, KAPPA, SPE, ANCA PROF, SANDRA, CRYOGLOB, HBSAG, CU, HIV SCREEN, RONALD SERUM, PAT, METH, HBSAB, RA, HCBIGM #### [facility] , Nitrite,Urine Positive High Negative [facility] Comment on above: Order Comment: Name Collection Type:: Clean-Voided Midstream Performed By: #### C BC, CMP, MG, LDH, [id number] #### [address] #### LEAD,ADULT, KAPPA, SPE, ANCA PROF, SANDRA, CRYOGLOB, HBSAG, CU, HIV SCREEN, RONALD SERUM, PAT, METH, HBSAB, RA, HCBIGM #### [facility] , Occult Blood,Urine Negative Normal Negative [facility] Comment on above: Order Comment: Name Collection Type:: Clean-Voided Midstream Result Comment: PERF ORMED BY: [place] [address] PATHOLOGIST CHIROPRACTIC TEACHER RUIZ CLIFTON M.D. Performed By: #### C BC, CMP, MG, LDH, [id number] #### [address] #### LEAD,ADULT, KAPPA, SPE, ANCA PROF, SANDRA, CRYOGLOB, HBSAG, CU, HIV SCREEN, RONALD SERUM, PAT, METH, HBSAB, RA, HCBIGM #### [facility] , Other Casts,Urine None Seen Normal None Seen [facility] Comment on above: Order Comment: Name Collection Type:: Clean-Voided Midstream Result Comment: PERF ORMED BY: [place] [address] PATHOLOGIST CHIROPRACTIC TEACHER RUIZ CLIFTON M.D. Performed By: #### C BC, CMP, MG, LDH, [id number] #### [address] #### LEAD,ADULT, KAPPA, SPE, ANCA PROF, SANDRA, CRYOGLOB, HBSAG, CU, HIV SCREEN, RONALD SERUM, PAT, METH, HBSAB, RA, HCBIGM #### [facility] , pH (U) 5.0 [pH] Normal 5.0-9.0 [facility] Comment on above: Order Comment: Name Collection Type:: Clean-Voided Midstream Performed By: #### C BC, CMP, MG, LDH, [id number] #### [address] #### LEAD,ADULT, KAPPA, SPE, ANCA PROF, SANDRA, CRYOGLOB, HBSAG, CU, HIV SCREEN, RONALD SERUM, PAT, METH, HBSAB, RA, HCBIGM #### [facility] , Protein,Urine Trace High Negative [facility] Comment on above: Order Comment: Name Collection Type:: Clean-Voided Midstream Performed By: #### C BC, CMP, MG, LDH, [id number] #### [address] #### LEAD,ADULT, KAPPA, SPE, ANCA PROF, SANDRA, CRYOGLOB, HBSAG, CU, HIV SCREEN, RONALD SERUM, PAT, METH, HBSAB, RA, HCBIGM #### [facility] , RBC LM.HPF (Urine sed) [#/Area] 0 /[HPF] Normal 0-4 [facility] Comment on above: Order Comment: Name Collection Type:: Clean-Voided Midstream Performed By: #### C BC, CMP, MG, LDH, [id number] #### [address] #### LEAD,ADULT, KAPPA, SPE, ANCA PROF, SANDRA, CRYOGLOB, HBSAG, CU, HIV SCREEN, RONALD SERUM, PAT, METH, HBSAB, RA, HCBIGM #### [facility] , Specificy [place],Urine 1.019 Normal 1.001-1.030 [facility] Comment on above: Order Comment: Name Collection Type:: Clean-Voided Midstream Performed By: #### C BC, CMP, MG, LDH, [id number] #### [place] [address] [place] #### LEAD,ADULT, KAPPA, SPE, ANCA PROF, SANDRA, CRYOGLOB, HBSAG, CU, HIV SCREEN, RONALD SERUM, PAT, METH, HBSAB, RA, HCBIGM #### [facility] , Squamous Epithelial Cell,Urine 10-19 High 0-2 [facility] Comment on above: Order Comment: Name Collection Type:: Clean-Voided Midstream Performed By: #### C BC, CMP, MG, LDH, [id number] #### [address] #### LEAD,ADULT, KAPPA, SPE, ANCA PROF, SANDRA, CRYOGLOB, HBSAG, CU, HIV SCREEN, RONALD SERUM, PAT, METH, HBSAB, RA, HCBIGM #### [facility] , Urobilinogen,Urine Normal Normal Normal [facility] Comment on above: Order Comment: Name Collection Type:: Clean-Voided Midstream Performed By: #### C BC, CMP, MG, LDH, [id number] #### [address] #### LEAD,ADULT, KAPPA, SPE, ANCA PROF, SANDRA, CRYOGLOB, HBSAG, CU, HIV SCREEN, RONALD SERUM, PAT, METH, HBSAB, RA, HCBIGM #### [facility] , WBC,Urine 20-49 High 0-4 [facility] Comment on above: Order Comment: Name Collection Type:: Clean-Voided Midstream Performed By: #### C BC, CMP, MG, LDH, [id number] #### [address] #### LEAD,ADULT, KAPPA, SPE, ANCA PROF, SANDRA, CRYOGLOB, HBSAG, CU, HIV SCREEN, RONALD SERUM, PAT, METH, HBSAB, RA, HCBIGM #### [facility] , ECG 12 lead ECGon 03-21-2023 ECG 12 lead ECG [facility] [place] [address] Electrocardiograph Report Signed Patient: Rica Stout MR#: [id number] : 1995 Acct:[id number] Age/Sex: 27 / F ADM Date: 03/22/23 Loc: Room: [address] [place] [address] Type: ADM IN Attending Dr: Parveen Keller MD Ordering Provider: Bernrad Peterson DO Date of Service: 03/21/23 ECG/ECG [...] Sinus tachycardia Confirmed by Bernard Peterson DO ([id number]) on 03/22/2023 4:03:33 AM Referred By: Electronically Signed By:Bernard Peterson DO Transcribed By: MUS Signed By Bernard Peterson DO [id number] Normal [facility] Eosinophils Auto (Bld) [#/Vo l]Ordered By: eBrnard Peterson on 03-21-2023 Eosinophils (Bld) [#/Vol] 0.2 10*3/uL 0.0-0.45 [facility] Eosinophils/100 WBC Auto (Bl d)Ordered By: Bernard Peterson on 03-21-2023 Eosinophils/100 WBC (Bld) 2.7 % . [facility] Erythrocyte Sedimentation Ra mert 03-21-2023 ESR (Bld) [Velocity] 21 mm/h High 0-19 [facility] Comment on above: Result Comment: PERF ORMED BY: [place] [address] PATHOLOGIST CHIROPRACTIC TEACHER RUIZ CLIFTON M.D. Performed By: #### C BC, CMP, MG, LDH, [id number] #### [facility] [address] [place] [address] [place] #### LEAD,ADULT, KAPPA, SPE, ANCA PROF, SANDRA, CRYOGLOB, HBSAG, CU, HIV SCREEN, RONALD SERUM, PAT, METH, HBSAB, RA, HCBIGM #### [facility] , Erythrocyte distribution wid th Auto (RBC) [Ratio]Ordered By: Bernard Peterson on 03-21-2023 Erythrocyte distribution width (RBC) [Ratio] 14.5 % 11.9-15.3 [facility] Erythrocyte sedimentation ra te by Photometric methodOrdered By: Bernard Peterson on 03-21-2023 ESR Photometric method (Bld) [Velocity] 21 mm/hr 0-19 [facility] Globulin Calc (S) [Mass/Vol] Ordered By: Bernard Peterson on 03-21-2023 Globulin (S) [Mass/Vol] 3.3 g/dL F [facility] Glucose [Mass/volume] in Cer ebral spinal fluidOrdered By: Bernard Peterson on 03-21-2023 Glucose (CSF) [Mass/Vol] 84 mg/dL 40-70 [facility] Glucose [Mass/volume] in Ser um or PlasmaOrdered By: Bernard Peterson on 03-21-2023 Glucose [Mass/Vol] 130 mg/dL 70-100 [facility] Comment on above: ADA recommended refe rence rangeRandom Glucose Reference Range is dependent on time and content of last meal. Glucose of more than 200 mg/dL in a nonstressed, ambulatory subject supports the diagnosis of Diabetes Mellitus. Gram stain for investigation of transfusion reactionOrdered By: Bernard Peterson on 03-21-2023 Microscopic observation Gram stain Nom (Unsp spec) [facility] HCG ( test) IA.rapi d Ql (U)Ordered By: Bernard Peterson on 03-21-2023 HCG ( test) Ql (U) Negative [facility] HCG,Urineon 03-21-2023 Beta HCG ( test) Ql (U) Negative Normal [facility] Comment on above: Result Comment: PERF ORMED BY: [place] [address] PATHOLOGIST CHIROPRACTIC TEACHER RUIZ CLIFTON M.D. Performed By: #### C BC, CMP, MG, LDH, [id number] #### [place] [address] [place] #### LEAD,ADULT, KAPPA, SPE, ANCA PROF, SANDRA, CRYOGLOB, HBSAG, CU, HIV SCREEN, RONALD SERUM, PAT, METH, HBSAB, RA, HCBIGM #### [facility] , Hematocrit Auto (Bld) [Volum e fraction]Ordered By: Bernard Peterson on 03-21-2023 Hematocrit (Bld) [Volume fraction] 37.8 % 34.0-46.4 [facility] Hemoglobin [Mass/volume] in BloodOrdered By: Bernard Peterson on 03-21-2023 Hemoglobin (Bld) [Mass/Vol] 12.7 g/dL 11.8-15.4 [facility] Hepatic Panelon 03-21-2023 Albumin [Mass/Vol] 3.5 g/dL Normal 3.5-5.7 [facility] Comment on above: Performed By: #### C BC, CMP, MG, LDH, [id number] #### [facility] [address] [place] [address] #### LEAD,ADULT, KAPPA, SPE, ANCA PROF, SANDRA, CRYOGLOB, HBSAG, CU, HIV SCREEN, RONALD SERUM, PAT, METH, HBSAB, RA, HCBIGM #### [facility] , Albumin/Globulin [Mass ratio] 1.1 {ratio} Normal [facility] Comment on above: Performed By: #### C BC, CMP, MG, LDH, [id number] #### [facility] [address] [place] [address] [place] #### LEAD,ADULT, KAPPA, SPE, ANCA PROF, SANDRA, CRYOGLOB, HBSAG, CU, HIV SCREEN, RONALD SERUM, PAT, METH, HBSAB, RA, HCBIGM #### [facility] , ALP [Catalytic activity/Vol] 112 U/L High 34-104 [facility] Comment on above: Performed By: #### C BC, CMP, MG, LDH, [id number] #### [facility] [address] [place] [address] [place] #### LEAD,ADULT, KAPPA, SPE, ANCA PROF, SANDRA, CRYOGLOB, HBSAG, CU, HIV SCREEN, RONALD SERUM, PAT, METH, HBSAB, RA, HCBIGM #### [facility] , ALT [Catalytic activity/Vol] 37 U/L Normal 7-52 [facility] Comment on above: Performed By: #### C BC, CMP, MG, LDH, [id number] #### [facility] [address] [place] [address] [place] #### LEAD,ADULT, KAPPA, SPE, ANCA PROF, SANDRA, CRYOGLOB, HBSAG, CU, HIV SCREEN, RONALD SERUM, PAT, METH, HBSAB, RA, HCBIGM #### [facility] , AST [Catalytic activity/Vol] 79 U/L High 13-39 [facility] Comment on above: Performed By: #### C BC, CMP, MG, LDH, [id number] #### [facility] [address] [place] [address] [place] #### LEAD,ADULT, KAPPA, SPE, ANCA PROF, SANDRA, CRYOGLOB, HBSAG, CU, HIV SCREEN, RONALD SERUM, PAT, METH, HBSAB, RA, HCBIGM #### [facility] , Bilirubin [Mass/Vol] 0.5 mg/dL Normal 0.3-1.0 [facility] Comment on above: Performed By: #### C BC, CMP, MG, LDH, [id number] #### [facility] [address] [place] [address] [place] #### LEAD,ADULT, KAPPA, SPE, ANCA PROF, SANDRA, CRYOGLOB, HBSAG, CU, HIV SCREEN, RONALD SERUM, PAT, METH, HBSAB, RA, HCBIGM #### [facility] , Bilirubin,Indirect 0.4 mg/dL Normal [facility] Comment on above: Performed By: #### C BC, CMP, MG, LDH, [id number] #### [facility] [address] [place] [address] [place] #### LEAD,ADULT, KAPPA, SPE, ANCA PROF, SANDRA, CRYOGLOB, HBSAG, CU, HIV SCREEN, RONALD SERUM, PAT, METH, HBSAB, RA, HCBIGM #### [facility] , Bilirubin.indirect [Mass/Vol] 0.10 mg/dL Normal 0.03-0.18 [facility] Comment on above: Performed By: #### C BC, CMP, MG, LDH, [id number] #### [address] #### LEAD,ADULT, KAPPA, SPE, ANCA PROF, SANDRA, CRYOGLOB, HBSAG, CU, HIV SCREEN, RONALD SERUM, PAT, METH, HBSAB, RA, HCBIGM #### [facility] , Globulin (S) [Mass/Vol] 3.3 g/dL Normal F [facility] Comment on above: Performed By: #### C BC, CMP, MG, LDH, [id number] #### [address] #### LEAD,ADULT, KAPPA, SPE, ANCA PROF, SANDRA, CRYOGLOB, HBSAG, CU, HIV SCREEN, RONALD SERUM, PAT, METH, HBSAB, RA, HCBIGM #### [facility] , Protein [Mass/Vol] 6.8 g/dL Normal 6.4-8.9 [facility] Comment on above: Performed By: #### C BC, CMP, MG, LDH, [id number] #### [address] #### LEAD,ADULT, KAPPA, SPE, ANCA PROF, SANDRA, CRYOGLOB, HBSAG, CU, HIV SCREEN, RONALD SERUM, PAT, METH, HBSAB, RA, HCBIGM #### [facility] , INR in Platelet poor plasma by Coagulation assayOrdered By: Bernard Peterson on 03-21-2023 INR Coag (PPP) [Relative time] 1.1 {INR} [facility] Comment on above: INR Therapeutic Rang e [...] on 03-21-2023 Ketones (U) [Mass/Vol] Trace Negative [facility] - CoagulationOrde red By: Bernard Peterson on 03-21-2023 PT Coag (PPP) [Time] 12.4 s 9.0-12.9 [facility] Lactate [Moles/volume] in Se rum or PlasmaOrdered By: Bernard Peterson on 03-21-2023 Lactate [Moles/Vol] 3.9 mmol/L 0.5-2.2 [facility] Comment on above: Critical Result : Ca lled to and read back by: DIPTI ANN at: 03/21/2023 22:31:27 by:LFM Lactic Acidon 03-21-2023 Lactate [Moles/Vol] 3.9 mmol/L Off scale high 0.5-2.2 F [facility] Comment on above: Result Comment: Crit ical Result : Called to and read back by: DIPTI ANN at: 03/21/2023 22:31:27 by:LFM PERFORMED BY: [place] [address] PATHOLOGIST CHIROPRACTIC TEACHER RUIZ CLIFTON M.D. Performed By: #### C BC, CMP, MG, LDH, [id number] #### [facility] [address] [place] [address] #### LEAD,ADULT, KAPPA, SPE, ANCA PROF, SANDRA, CRYOGLOB, HBSAG, CU, HIV SCREEN, RONALD SERUM, PAT, METH, HBSAB, RA, HCBIGM #### [facility] , Leukocytes [#/volume] correc antoine for nucleated erythrocytes in Blood by Automated counOrdered By: Bernard Peterson on 03-21-2023 WBC corrected for nucl RBC Auto (Bld) [#/Vol] 7.2 10*3/uL 3.8-11.6 [facility] Lymphocytes Auto (Bld) [#/Vo l]Ordered By: Bernard Peterson on 03-21-2023 Lymphocytes (Bld) [#/Vol] 2.1 10*3/uL 1.00-4.8 [facility] Lymphocytes/100 WBC Auto (Bl d)Ordered By: Bernard Peterson on 03-21-2023 Lymphocytes/100 WBC (Bld) 29.7 % . [facility] MCH Auto (RBC) [Entitic mass ]Ordered By: Bernard Peterson on 03-21-2023 MCH (RBC) [Entitic mass] 36.3 pg 24.7-34.3 [facility] MCHC Auto (RBC) [Mass/Vol]Or dered By: Bernard Peterson on 03-21-2023 MCHC (RBC) [Mass/Vol] 33.5 g/dL 32.0-35.0 [facility] MCV Auto (RBC) [Entitic vol] Ordered By: Bernard Peterson on 03-21-2023 MCV (RBC) [Entitic vol] 108.6 fL 80-100 F [facility] Magnesiumon 03-21-2023 Magnesium [Mass/Vol] 1.4 mg/dL Low 1.9-2.7 [facility] Comment on above: Performed By: #### C BC, CMP, MG, LDH, [id number] #### [address] #### LEAD,ADULT, KAPPA, SPE, ANCA PROF, SANDRA, CRYOGLOB, HBSAG, CU, HIV SCREEN, RONALD SERUM, PAT, METH, HBSAB, RA, HCBIGM #### [facility] , Magnesium [Mass/volume] in S caitlyn or PlasmaOrdered By: Bernard Peterson on 03-21-2023 Magnesium [Mass/Vol] 1.4 mg/dL 1.9-2.7 [facility] Manual cerebrospinal fluid e rythrocytes count (number/volume)Ordered By: Bernard Peterson on 03-21-2023 RBC Manual cnt (CSF) [#/Vol] 0 /uL [facility] Comment on above: The reference interv al and other method performance specifications have not been established for this body fluid. The test result must be integrated into the clinical context for interpretation. Meningitis+Encephalitis path ogens DNA and RNA panel - Cerebral spinal fluid by [facility] wiOrdered By: Bernard Peterson on 03-21-2023 Meningitis+Encephalitis pathogens DNA and RNA panel [facility]+non-probe (CSF) [facility] Monocyte distribution width [Entitic volume] in Blood by AutomatedOrdered By: Bernard Peterson on 03-21-2023 Monocyte distribution width Auto (Bld) [Entitic vol] 19.31 % 0.00-20.00 [facility] Monocytes Auto (Bld) [#/Vol] Ordered By: Bernard Peterson on 03-21-2023 Monocytes (Bld) [#/Vol] 0.5 10*3/uL 0.0-0.8 [facility] Monocytes/100 WBC Auto (Bld) Ordered By: Bernard Peterson on 03-21-2023 Monocytes/100 WBC (Bld) 7.6 % . F [facility] Neutrophils Auto (Bld) [#/Vo l]Ordered By: Bernard Peterson on 03-21-2023 Neutrophils (Bld) [#/Vol] 4.2 10*3/uL 1.8-7.7 [facility] Neutrophils/100 WBC Auto (Bl d)Ordered By: Bernard Peterson on 03-21-2023 Neutrophils/100 WBC (Bld) 58.4 % . [facility] Nitrite Test strip Ql (U)Ord ered By: PROVIDER TEMP on 03-21-2023 Nitrite Ql (U) Positive Negative [facility] No Panel InformationOrdered By: Bernard Peterson on 03-21-2023 CSF Appearance Clear Clear [facility] CSF Differential Comment See comment [facility] Comment on above: NO NUCLEATED CELLS S EEN. DIFFERENTIAL NOT PREFORMED CSF Eosinophils N/A [facility] CSF Lymphocytes N/A [facility] CSF Monocytes N/A [facility] CSF Neutrophils [employer] Super[employer] [facility] Comment on above: The reference interv al and other method performance specifications have not been established for this body fluid. The test result must be integrated into the clinical context for interpretation. CSF Tube Number Tube number: 3 [facility] Estimated GFR (CKD-EPI) > 60.0 mL/Min [facility] Creatinine Clearance (Chem 148.92 [facility] Nucleated cells [#/volume] i n Cerebral spinal fluid by Manual countOrdered By: Bernard Peterson on 03-21-2023 Nucleated cells Manual cnt (CSF) [#/Vol] 0 10*3/uL 0-5 [facility] Nucleated erythrocytes [Pres ence] in Blood by Automated countOrdered By: Bernard Peterson on 03-21-2023 Nucleated RBC Auto Ql (Bld) 0.1 /100{WBC} 0-0.5 [facility] Partial Thromboplastin Timeo n 03-21-2023 aPTT Coag (Bld) [Time] 30.4 s Normal 25.1-36.5 [facility] Comment on above: Result Comment: PERF ORMED BY: [address] [place] [address] PATHOLOGIST CHIROPRACTIC TEACHER RUIZ CLIFTON M.D. Performed By: #### C BC, CMP, MG, LDH, [id number] #### [facility] [address] [place] [address] #### LEAD,ADULT, KAPPA, SPE, ANCA PROF, SANDRA, CRYOGLOB, HBSAG, CU, HIV SCREEN, RONALD SERUM, PAT, METH, HBSAB, RA, HCBIGM #### [facility] , Phosphate [Mass/volume] in S caitlyn or PlasmaOrdered By: Bernard Peterson on 03-21-2023 Phosphate [Mass/Vol] 2.3 mg/dL 3.7-7.2 [facility] Phosphoruson 03-21-2023 Phosphate [Mass/Vol] 2.3 mg/dL Low 3.7-7.2 [facility] Comment on above: Performed By: #### C BC, CMP, MG, LDH, [id number] #### [facility] [address] [place] [address] [place] #### LEAD,ADULT, KAPPA, SPE, ANCA PROF, SANDRA, CRYOGLOB, HBSAG, CU, HIV SCREEN, RONALD SERUM, PAT, METH, HBSAB, RA, HCBIGM #### [facility] , Platelet mean volume Auto (B ld) [Entitic vol]Ordered By: Bernard Peterson on 03-21-2023 Platelet mean volume (Bld) [Entitic vol] 7.9 fL 6.3-10.7 [facility] Platelets Auto (Bld) [#/Vol] Ordered By: Bernard Peterson on 03-21-2023 Platelets (Bld) [#/Vol] 319 10*3/uL 150-450 [facility] Potassium [Moles/volume] in Serum or PlasmaOrdered By: Bernard Peterson on 03-21-2023 Potassium [Moles/Vol] 3.2 mmol/L 3.5-5.1 [facility] Protein Auto test strip (U) [Mass/Vol]Ordered By: PROVIDER TEMP on 03-21-2023 Protein (U) [Mass/Vol] Trace mg/dL Negative F [facility] Protein [Mass/volume] in Cer ebral spinal fluidOrdered By: Bernard Peterson on 03-21-2023 Protein (CSF) [Mass/Vol] 39 mg/dL 15-45 [facility] Protein [Mass/volume] in Ser um or PlasmaOrdered By: Bernard Peterson on 03-21-2023 Protein [Mass/Vol] 6.8 g/dL 6.4-8.9 [facility] Protein fractions.oligoclona l bands.intrathecal [Presence] in Serum and CSFOrdered By: Bernard Peterson on 03-21-2023 Protein fractions.oligoclonal bands.intrathecal Ql (S+CSF) See comment . [facility] Comment on above: Zero (0) oligoclonal bands were observed in the CSF.However two (2) paired bands were observed in both the CSFand serum. Paired bands suggest an immune response to aninflammatory process outside the CORPORATE OPERATIONS COMPLIANCE MANAGER and are unlikely torepresent a CORPORATE OPERATIONS COMPLIANCE MANAGER demyelinating disease.Interpretation: Criteria for Positivity: Four (4) [...] using IsoelectricFocusing (IEF) and immunoblotting methodology.Performed at: [facility] [employer] [id number] Director: Breezy Jones PhD, Phone: [phone] Prothrombin Time INRon 03-21 INR Coag (PPP) [Relative time] 1.1 {INR} Normal [facility] Comment on above: Result Comment: INR Therapeutic [...] By: #### C BC, CMP, MG, LDH, [id number] #### [place] [address] [place] #### LEAD,ADULT, KAPPA, SPE, ANCA PROF, SANDRA, CRYOGLOB, HBSAG, CU, HIV SCREEN, RONALD SERUM, PAT, METH, HBSAB, RA, HCBIGM #### [facility] , PT Coag (PPP) [Time] 12.4 s Normal 9.0-12.9 [facility] Comment on above: Performed By: #### C BC, CMP, MG, LDH, [id number] #### [place] [address] [place] #### LEAD,ADULT, KAPPA, SPE, ANCA PROF, SANDRA, CRYOGLOB, HBSAG, CU, HIV SCREEN, RONALD SERUM, PAT, METH, HBSAB, RA, HCBIGM #### [facility] , RBC Auto (Bld) [#/Vol]Ordere d By: Bernard Peterson on 03-21-2023 RBC (Bld) [#/Vol] 3.48 10*6/uL 3.60-5.00 [facility] Serum or plasma albumin/glob ulin mass ratioOrdered By: Bernard Peterson on 03-21-2023 Albumin/Globulin [Mass ratio] 1.1 {ratio} [facility] Serum or plasma anion gap de terminationOrdered By: Bernard Peterson on 03-21-2023 Anion gap [Moles/Vol] 16.2 mmol/L 6.0-15.0 [facility] Serum or plasma non-glucuron idated bilirubin measurement (mass/volume)Ordered By: Bernard Peterson on 03-21-2023 Bilirubin.indirect [Mass/Vol] 0.4 mg/dL [facility] Sodium [Moles/volume] in Ser um or PlasmaOrdered By: Bernard Peterson on 03-21-2023 Sodium [Moles/Vol] 141 mmol/L 136-145 [facility] Specific gravity Auto test s trip (U) [Rel density]Ordered By: PROVIDER TEMP on 03-21-2023 Specific gravity (U) [Rel density] 1.019 1.001-1.030 [facility] Squamous epithelial cells de tection in urine sediment by light microscopyOrdered By: PROVIDER TEMP on 03-21-2023 Epithelial cells.squamous LM Ql (Urine sed) 10-19 [HPF] 0-2 [facility] Urea nitrogen [Mass/volume] in Serum or PlasmaOrdered By: Bernard Peterson on 03-21-2023 Urea nitrogen [Mass/Vol] 3 mg/dL 7-25 [facility] Urine Cultureon 03-21-2023 Bacteria identified Cx Nom (U) ORGANISM: Klebsiella pneumoniae (O:KLEPNE) [place] Count >100,000 Aerobic JOSEPH Charge (NMIC56) - [...] RESISTANT TO ALL B-LACTAM DRUGS. PERFORMED BY: [place] [address] PATHOLOGIST CHIROPRACTIC TEACHER RUIZ CLIFTON M.D.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 Facility: [facility] Address: [address] [place] [address] Result Comment: Cuto ff threshold at 300 ng/mL. Performed By: #### U TOX2, 2105-09 #### [facility] CLIA [id number] [facility] [address] [place], [place] [address] [place] Ethanol (U) [Mass/Vol] 371 mg/dL High <11 [facility] Comment on above: Order Comment: Speci men Type: URINE SPECIMEN Ordering Facility: [facility] Address: [address] [place] [address] Performed By: #### U TOX2, 2105-09 #### [facility] CLIA [id number] [facility] [place] [id number] [place] Opiates Screen Ql (U) Negative Normal Negative [facility] Comment on above: Order Comment: Speci men Type: URINE SPECIMEN Ordering Facility: [facility] Address: [address] [place] [address] Result Comment: Cuto ff threshold at 300 ng/mL. Performed By: #### U TOX2, 2105-09 #### [facility] CLIA [id number] [facility] [address] [place], [place] [address] [place] oxyCODONE cutoff Screen (U) [Mass/Vol] Negative Normal Negative [facility] Comment on above: Order Comment: Speci men Type: URINE SPECIMEN Ordering Facility: [facility] Address: [address] [place] [address] Result Comment: Cuto ff threshold at 100 ng/mL. Performed By: #### U TOX2, 2105-09 #### [facility] CLIA [id number] [address] [place], [place] [address] [place] Phencyclidine Ql (U) Negative Normal Negative [facility] Comment on above: Order Comment: Speci men Type: URINE SPECIMEN Ordering Facility: [facility] Address: [address] [place] [address] Result Comment: Cuto ff threshold at 25 ng/mL. Performed By: #### U TOX2, 2105-09 #### [facility] CLIA [id number] [facility] [address] [place] Urinalysis complete panel (U )on 01-28-2023 Bacteria LM.HPF (Urine sed) [#/Area] Many Abnormal None Seen [facility] Comment on above: Order Comment: Speci men Type: URINE SPECIMENOrdering Facility: [facility] Address: [address] [place] [address] Performed By: #### 2 4356-8 ####[facility] [id number] [address] [facility]CLIA [id number] [address] [place] Bilirubin Ql (U) Negative Normal Negative [facility] Comment on above: Order Comment: Speci men Type: URINE SPECIMENOrdering Facility: [facility] Address: [address] [place], [place] [address] Performed By: #### 2 4356-8 ####[facility] [id number] [address] OF [facility]IA [id number] [place] [id number] [place] Clarity (Unsp spec) Clear Normal Clear [facility] Comment on above: Order Comment: Speci men Type: URINE SPECIMENOrdering Facility: [facility] Address: [address] [place], [place] [address] [address] Performed By: #### 2 4356-8 ####[facility] [id number] [address] [place] [address] [facility]IA [id number] [place] Color (U) Yellow Normal Yellow [facility] Comment on above: Order Comment: Speci men Type: URINE SPECIMENOrdering Facility: [facility] Address: [address] [place] [address] Performed By: #### 2 4356-8 ####[facility] [id number] [address] LABCLIA [id number] [address] [place] Epithelial cells LM.HPF (Urine sed) [#/Area] Many Normal [facility] Comment on above: Order Comment: Speci men Type: URINE SPECIMENOrdering Facility: [facility] Address: [address] [place] [address] Performed By: #### 2 4356-8 ####[facility] [id number] [place] [id number] [facility]CLIA [id number] [address] [place] Glucose Test strip (U) [Mass/Vol] Negative Normal Negative [facility] Comment on above: Order Comment: Speci men Type: URINE SPECIMENOrdering Facility: [facility] Address: [address] [place] [address] [place] [address] Performed By: #### 2 4356-8 ####[facility] [id number] [place] [id number] [facility]CLIA [id number] [id number], [place] [address] [place] Hemoglobin Ql (U) Negative Normal Negative, Trace [facility] Comment on above: Order Comment: Speci men Type: URINE SPECIMENOrdering Facility: [facility] Address: [address] [place], [place] [address] Performed By: #### 2 4356-8 ####[facility] [id number] [address] [place] [address] [facility] [id number] [place] Ketones Ql (U) Negative Normal Negative [facility] Comment on above: Order Comment: Speci men Type: URINE SPECIMENOrdering Facility: [facility] Address: [address] [place] [address] Performed By: #### 2 4356-8 ####[facility] [id number] [address] LABCLIA [id number] [address] [place] Leukocyte esterase Test strip Ql (U) 1+ Abnormal Negative [facility] Comment on above: Order Comment: Speci men Type: URINE SPECIMENOrdering Facility: [facility] Address: [address] [place], [place] [address] Performed By: #### 2 4356-8 ####[facility] [id number] [address] LABCLIA [id number] [place] [id number] [place] Nitrite Ql (U) Negative Normal Negative [facility] Comment on above: Order Comment: Speci men Type: URINE SPECIMENOrdering Facility: [facility] Address: [address] [place] [address] Performed By: #### 2 4356-8 ####[facility] [id number] [address] [place] [address] LAB[facility]IA [id number] [place] [address] [place] pH (U) 6.0 [pH] Normal 5.0-8.0 [facility] Comment on above: Order Comment: Speci men Type: URINE SPECIMENOrdering Facility: [facility] Address: [address] [place] [address] Performed By: #### 2 4356-8 ####[facility] [id number] [address] LABCLIA [id number] [place] [address] [place] Protein (U) [Mass/Vol] Negative Normal Negative [facility] Comment on above: Order Comment: Speci men Type: URINE SPECIMENOrdering Facility: [facility] Address: [address] [place] [address] Performed By: #### 2 4356-8 ####[facility] [id number] [address] LABCLIA [id number] [place] [address] [place] RBC LM.HPF (Urine sed) [#/Area] 0-3 /HPF Normal 0-3 /HPF [facility] Comment on above: Order Comment: Speci men Type: URINE SPECIMENOrdering Facility: [facility] Address: [address] [place] [address] Performed By: #### 2 4356-8 ####[facility] [id number] [address] LABCLIA [id number] [place] [address] [place] Specific gravity (U) [Rel density] <=1.005 Low 1.005-1.030 [facility] Comment on above: Order Comment: Speci men Type: URINE SPECIMENOrdering Facility: [facility] Address: [address] [place] [address] Performed By: #### 2 4356-8 ####[facility] [id number] [address] LABCLIA [id number] [address] [place] Urobilinogen Ql (U) 0.2 EU/dL Normal 0.2-1.0 EU/dL [facility] Comment on above: Order Comment: Speci men Type: URINE SPECIMENOrdering Facility: [facility] Address: [address] [place] [address] Performed By: #### 2 4356-8 ####[facility] [id number] [address] LABCLIA [id number] [address] [place] WBC LM.HPF (Urine sed) [#/Area] 11-25 /HPF Abnormal 0-5 /HPF [facility] Comment on above: Order Comment: Speci men Type: URINE SPECIMENOrdering Facility: [facility] Address: [address] [place] [address] Performed By: #### 2 4356-8 ####[facility] [id number] [address] LABCLIA [id number] [place] [address] [place] Urinalysis complete pnl Uron 01-28-2023 Urinalysis complete [...] <=32 , Intermediate >32 , Resistant >64 [facility] Comment on above: Order Comment: Speci men Type: URINE SPECIMENOrdering Facility: [facility] Address: [address] [id number] Performed By: #### 2 4356-8 ####[facility] [id number] [address] [place] [address] LABCLIA [id number] [id number] [place] [address] XR CSPINE MIN 4 VIEWSon 03- XR CSPINE MIN 4 VIEWS EXAMINATION: XR [...] by: KARYNA LANGFORD Date: 2022-10-19 08:05 Normal [facility] MRI LSPINE WO CONon 10-19-19 23 MRI LSPINE WO CON EXAMINATION: MRI LSP [...] by: KARYNA LANGFORD Date: 2022-10-18 15:24 Normal [facility] XR LSPINE MIN 4 VIEWSon 03 XR LSPINE MIN 4 VIEWS EXAMINATION: XR [...] by: DAVID TRUONG Date: 2022-09-28 07:03 Normal [facility] MAMMO POST BIOPSY RIGHTon MAMMO POST BIOPSY RIGHT Patient: RICA STOUT Exam Date: 09/27/2022 : 1995 Gender:F Ordering : DANUTA ARAUJO [facility] Admission #: [id number] Family : DR KARYNA LANGFORD M.D. Order #: [id number] CLICK HERE TO VIEW EXAM This report includes an Addendum and supersedes previous reports for this exam. RADIOLOGY REPORT PROCEDURE: MAMMOGRAM POST BIOPSY IMAGES COMPARISON: MAMM DIAGNOSTIC 3D JOAQUIM CAD, 09/20/2022. INDICATIONS: Mammographic mass of right breast BREAST COMPOSITION: Heterogeneously dense,which may obscure small masses. FINDINGS: BIOPSY MARKER: A metallic marker has been placed in the targeted location within the 12 o'clock mid right breast. BREAST FINDINGS: Micro clip marker is within the targeted mass Dictated by: Karyna Langford MD on 09/27/2022 at 10:25 Approved by: Karyna Langford MD on 09/27/2022 at 10:26 ADDENDUM: FINDINGS: DIAGNOSTIC CATEGORY 2--BENIGN FINDING: RECOMMENDATIONS: CLINICAL EVALUATION. Dictated by: Karyna Langford MD on 10/03/2022 at 06:51 Approved by: Karyna Langford MD on 10/03/2022 at 06:51 Normal [facility] US VAC ASST BX BRST RT W CLI Cyrus 09-27-2022 US VAC ASST BX BRST RT W CLIP Patient: RICA STOUT Exam Date: 09/27/2022 : 1995 Gender:F Ordering : DANUTA ARAUJO [facility] Admission #: [id number] Family : Order #: [id number] CLICK HERE TO VIEW EXAM This report [...] MD on 10/03/2022 at 06:48 Normal [facility] PAT by IFAon 09-25-2022 Antinuclear Antibodies, IFA Negative Normal [facility] Comment on above: Result Comment: Nega tive <1:80 Borderline 1:80 Positive >1:80 ICAP nomenclature: AC-0 For more information about Hep-2 cell patterns use ANApatterns.org, the official website for the International Consensus on Antinuclear Antibody (PAT) Patterns (ICAP). Performed By: #### C IRINA BENOIT #### [facility] [address] [place] [address] [address] Kush Call ANTISTREPTOLYSIN O AB (ASO)o n 09-20-2022 Antistreptolysin O Ab 71.6 IU/mL Normal 0.0-200.0 [facility] Comment on above: Performed By: #### C IRINA BENOIT #### [facility] [address] [place] [address] [address] Kush Call MG MAMM DIAGNOSTIC 3D JOAQUIM CA Don 09-20-2022 MG MAMM DIAGNOSTIC 3D JOAQUIM CAD Patient: RICA STOUT Exam Date: 09/20/2022 : 1995 Gender:F Ordering : DANUTA ARAUJO [facility] Admission #: [id number] Family : Order #: [id number] CLICK HERE TO VIEW EXAM RADIOLOGY REPORT [...] unknown cancer at age 70. LOCATION: [facility] BREAST COMPOSITION: Heterogeneously dense,which may obscure [...] MD on 09/20/2022 at 14:51 Normal [facility] RHEUMATOID FACTORon 09-21-19 RA Latex Turbid. <10.0 Normal <14.0 [facility] Comment on above: Performed By: #### C IRINA BENOIT #### [facility] [address] [place] [address] Dr. Kush Call CRPon 09-19-2022 CRP [Mass/Vol] mg/L Normal <=1.0 [facility] Comment on above: Performed By: #### C RP, CMP, URIC, MG #### [facility] [address] [place] [address] Dr. Kush Call FOLATEon 09-19-2022 FOLATE 8.40 ng/mL Critically low 8.60-58.90 [facility] Comment on above: Performed By: #### C MP, CMADM #### [facility] [address] [place] [address] Dr. Kush Call MAGNESIUMon 09-19-2022 Magnesium [Mass/Vol] 1.9 mg/dL Normal 1.8-2.4 [facility] Comment on above: Performed By: #### C RP, CMP, URIC, MG #### [facility] [address] [place] [address] Dr. Kush Call PROF 14(COMP METB)on 023 Albumin [Mass/Vol] 3.8 g/dL Normal 3.4-5.0 [facility] Comment on above: Performed By: #### C RP, CMP, URIC, MG #### [facility] [address] [place] [address] Dr. Kush Call Albumin/Globulin [Mass ratio] 0.8 {ratio} Normal [facility] Comment on above: Performed By: #### C RP, CMP, URIC, MG #### [facility] [address] [place] [address] Dr. Kush Call ALP [Catalytic activity/Vol] 120 U/L Critically high 46-116 [facility] Comment on above: Performed By: #### C RP, CMP, URIC, MG #### [facility] [address] [place] [address] Dr. Kush Call ALT [Catalytic activity/Vol] 67 U/L Critically high 14-59 [facility] Comment on above: Performed By: #### C RP, CMP, URIC, MG #### [facility] [address] [place] [address] [address] Kush Call Anion gap [Moles/Vol] 18.9 mmol/L Normal [facility] Comment on above: Performed By: #### C RP, CMP, URIC, MG #### [facility] [address] [place] [address] Dr. Kush Call AST [Catalytic activity/Vol] 68 U/L Critically high 15-37 [facility] Comment on above: Performed By: #### C RP, CMP, URIC, MG #### [facility] [address] [place] [address] Dr. Kush Call Bilirubin [Mass/Vol] 0.9 mg/dL Normal 0.2-1.0 [facility] Comment on above: Performed By: #### C RP, CMP, URIC, MG #### [facility] [address] [place] [address] Dr. Kush Call Calcium [Mass/Vol] 9.8 mg/dL Normal 8.5-10.1 [facility] Comment on above: Performed By: #### C RP, CMP, URIC, MG #### [facility] [address] [place] [address] Dr. Kush Call Chloride [Moles/Vol] 102 mmol/L Normal 98-107 [facility] Comment on above: Performed By: #### C RP, CMP, URIC, MG #### [facility] [address] [place] [address] Dr. Kush Call CO2 [Moles/Vol] 20.6 mmol/L Critically low 21.0-32.0 [facility] Comment on above: Performed By: #### C RP, CMP, URIC, MG #### [facility] [address] [place] [address] Dr. Kush Call Creatinine [Mass/Vol] 0.49 mg/dL Critically low 0.55-1.02 [facility] Comment on above: Performed By: #### C RP, CMP, URIC, MG #### [facility] [address] [place] [address] [address] Kush Call EGFR-AF BRAZILIAN >60 Normal >=60 [facility] Comment on above: Performed By: #### C RP, CMP, URIC, MG #### [facility] [address] [place] [address] [address] Kush Call EGFR-NON AF BRAZILIAN >60 Normal >=60 [facility] Comment on above: Performed By: #### C RP, CMP, URIC, MG #### [facility] [address] [place] [address] Dr. Kush Call Globulin (S) [Mass/Vol] 4.6 g/dL Normal [facility] Comment on above: Performed By: #### C RP, CMP, URIC, MG #### [facility] [address] [place] [address] Dr. Kush Call Glucose [Mass/Vol] 174 mg/dL Critically high 74-106 [facility] Comment on above: Performed By: #### C RP, CMP, URIC, MG #### [facility] [address] [place] [address] Dr. Kush Call Potassium [Moles/Vol] 3.5 mmol/L Normal 3.5-5.1 [facility] Comment on above: Performed By: #### C RP, CMP, URIC, MG #### [facility] [address] [place] [address] Dr. Kush Call Protein [Mass/Vol] 8.4 g/dL Critically high 6.4-8.2 [facility] Comment on above: Performed By: #### C RP, CMP, URIC, MG #### [facility] [address] [place] [address] Dr. Kush Call Sodium [Moles/Vol] 138 mmol/L Normal 136-145 [facility] Comment on above: Performed By: #### C RP, CMP, URIC, MG #### [facility] [address] [place] [address] Dr. Kush Call Urea nitrogen [Mass/Vol] 5.0 mg/dL Critically low 7.0-18.0 [facility] Comment on above: Performed By: #### C RP, CMP, URIC, MG #### [facility] [address] [place] [address] [address] Kush Call Urea nitrogen/Creatinine [Mass ratio] 10.2 mg/mg Normal [facility] Comment on above: Performed By: #### C RP, CMP, URIC, MG #### [facility] [address] [place] [address] [address] Kush Call URIC ACID SERUMon 09-19-2022 Urate [Mass/Vol] 10.1 mg/dL Critically high 2.6-6.0 [facility] Comment on above: Performed By: #### C RP, CMP, URIC, MG #### [facility] [address] [address] [address] Kush Call US BREAST RIGHT LIMITEDon US BREAST RIGHT LIMITED Patient: RICA STOUT Exam Date: 09/19/2022 : 1995 Gender:F Ordering : DANUTA ARAUJO [facility] Admission #: [id number] Family : DR MASSIMO BRIGHT . Order #: [id number] CLICK HERE TO VIEW EXAM RADIOLOGY REPORT [...] Langford MD on 09/19/2022 at 08:59 Normal [facility] CARDIAC LOWELL ADMITon 023 CK [Catalytic activity/Vol] 68 U/L Normal 26-192 [facility] Comment on above: Performed By: #### C MP, CMADM #### [facility] [address] [address] [address] Kush Call CK.MB [Mass/Vol] 141.43 ng/mL Critically high <=3.60 [facility] Comment on above: Performed By: #### C KAYCEE, CMADM #### [facility] [address] [place] [address] Dr. Kush Call HSTROP <4.0 Normal 4.0-51.3 [facility] Comment on above: Result Comment: CUT- OFF POINTS HAVE BEEN ESTABLISHED BASED ON THE FOURTH UNIVERSAL DEFINITIONS OF MYOCARDIAL INFARCTION. THE UPPER REFERENCE LIMIT (URL) OF TROPONIN, DEFINED THE 99TH PERCENTILE OF cTnI DISTRIBUTION IN A REFERENCE POPULATION, HAS BEEN CONFIRMED THE DECISION THRESHOLD FOR SC DIAGNOSIS. Performed By: #### C KAYCEE, CMADM #### [facility] [address] [place] [address] Dr. Kush Call JOANNA 57 ng/mL Normal 9-82 [facility] Comment on above: Performed By: #### C KAYCEE, CMADM #### [facility] [address] [place] [address] Dr. Kush Call CBC AUTO DIFFon 09-13-2022 BASO # 0.1 103/ul Normal 0.0-0.1 [facility] Comment on above: Performed By: #### C KAYCEE, XAVIERDM #### [facility] [address] [place] [address] Dr. Kush Call Basophils/100 WBC (Bld) 1.4 % Normal 0.2-2.0 [facility] Comment on above: Performed By: #### C KAYCEE, CMADM #### [facility] [address] [place] [address] Dr. Kush Call EO # 0.1 103/ul Normal 0.0-0.7 [facility] Comment on above: Performed By: #### C KAYCEE, CMADM #### [facility] [address] [place] [address] Dr. Kush Call Eosinophils/100 WBC (Bld) 1.3 % Normal 0.9-7.0 [facility] Comment on above: Performed By: #### C KAYCEE, CMADM #### [facility] [address] [place] [address] Dr. Kush Call Erythrocyte distribution width (RBC) [Ratio] 12.7 % Normal 11.0-15.0 [facility] Comment on above: Performed By: #### C IRINA BENOIT #### [facility] [address] [place] [address] Dr. Kush Call Hematocrit (Bld) [Volume fraction] 44.8 % Normal 36.0-48.0 [facility] Comment on above: Performed By: #### C IRINA BENOIT #### [facility] [address] [place] [address] Dr. Kush Call Hemoglobin (Bld) [Mass/Vol] 15.3 g/dL Normal 12.0-16.0 [facility] Comment on above: Performed By: #### C IRINA BENOIT #### [facility] [address] [place] [address] Dr. Kush Call IG # 0.22 10e3/ul Critically high 0.00-0.03 [facility] Comment on above: Performed By: #### C IRINA BENOIT #### [facility] [address] [place] [address] Dr. Kush Call IG % 2.2 % Critically high 0.0-0.5 [facility] Comment on above: Performed By: #### C IRINA BENOIT #### [facility] [address] [place] [address] Dr. Kush Call LYMPH # 2.7 103/ul Normal 1.2-3.8 [facility] Comment on above: Performed By: #### C IRINA BENOIT #### [facility] [address] [place] [address] Dr. Kush Call Lymphocytes/100 WBC (Bld) 26.6 % Normal 20.5-60.0 [facility] Comment on above: Performed By: #### C IRINA BENOIT #### [facility] [address] [place] [address] Dr. Kush Call MANUAL DIFF REQ NO Normal [facility] Comment on above: Performed By: #### C IRINA BENOIT #### [facility] [address] [place] [address] Dr. Kush Call MCH (RBC) [Entitic mass] 36.4 pg Critically high 26.7-34.0 [facility] Comment on above: Performed By: #### C KAYCEE, XAVIERDM #### [facility] [address] [place] [address] Dr. Kush Call MCHC (RBC) [Mass/Vol] 34.2 g/dL Normal 29.9-35.2 [facility] Comment on above: Performed By: #### C KAYCEE, XAVIERDM #### [facility] [address] [place] [address] Dr. Kush Call MCV (RBC) [Entitic vol] 106.7 fL Critically high 81.0-99 .0 [facility] Comment on above: Performed By: #### C KAYCEE, XAVIERDM #### [facility] [address] [place] [address] Dr. Kush Call MONO # 0.6 103/ul Normal 0.3-0.8 [facility] Comment on above: Performed By: #### C KAYCEE, XAVIERDM #### [facility] [address] [place] [address] Dr. Kush Call Monocytes/100 WBC (Bld) 5.6 % Normal 1.7-12.0 [facility] Comment on above: Performed By: #### C KAYCEE, CMADM #### [facility] [address] [place] [address] Dr. Kush Call NEUT # 6.4 103/ul Normal 1.4-6.5 [facility] Comment on above: Performed By: #### C KAYCEE, CMADM #### [facility] [address] [place] [address] Dr. Kush Call Neutrophils/100 WBC (Bld) 62.9 % Normal 43.0-75.0 [facility] Comment on above: Performed By: #### C KAYCEE, CMADM #### [facility] [address] [place] [address] Dr. Kush Call Platelet mean volume (Bld) [Entitic vol] 9.4 fL Critically low 9.5-13.5 [facility] Comment on above: Performed By: #### C MP, CMADM #### [facility] [address] [place], [place] [address] Dr. Kush Call PLT 454 103/ul Critically high 150-450 [facility] Comment on above: Performed By: #### C KAYCEE, CMADM #### [facility] [address] [place], [place] [address] Dr. Kush Call RBC 4.20 106/ul Normal 4.20-5.40 [facility] Comment on above: Performed By: #### C KAYCEE, CMADM #### [facility] [address] [place], [place] [address] Dr. Kush Call WBC 10.2 103/ul Normal 4.0-11.0 [facility] Comment on above: Performed By: #### C KAYCEE, CMADM #### [facility] [address] [place], [place] [address] HEAD WO CONon [...] by: MILLIE NORMAN Date: 2022-09-13 12:29 Normal [facility] CTA CHEST WO W CONon 023 CTA [...] DAVID TRUONG Date: 2022-09-13 14:46 Normal [facility] D-DIMERon 09-13-2022 D-DIMER 2.94 mg/L FEU Critically high <=0.59 [facility] Comment on above: Performed By: #### C KAYCEE, CMADM #### [facility] [address] [address] [address] Kush Call D-DIMER COMMENTS SEE BELOW Normal [facility] Comment on above: Result Comment: Incr eases [...] Performed By: #### C MP, CMADM #### [facility] [address] [place], [place] [address] Dr. Kush Call DRUG SCREEN RAPID (URINE)on 09-13-2022 AMP Negative Normal NEGATIVE [facility] Comment on above: Performed By: #### C RP, CMP, URIC, MG #### [facility] [address] [place], [place] [address] Dr. Kush Call BAR Negative Normal NEGATIVE [facility] Comment on above: Performed By: #### C RP, CMP, URIC, MG #### [facility] [address] [address] [address] Kush Call BUP Negative Normal NEGATIVE [facility] Comment on above: Performed By: #### C RP, CMP, URIC, MG #### [facility] [address] [address] [address] Kush Call BZO Negative Normal NEGATIVE [facility] Comment on above: Performed By: #### C RP, CMP, URIC, MG #### [facility] [address] [address] [address] Kush Call BUTCH Negative Normal NEGATIVE [facility] Comment on above: Performed By: #### C RP, CMP, URIC, MG #### [facility] [address] [address] [address] Kush Call CUT-OFFS SEE BELOW Normal [facility] Comment on above: Result Comment: AMP [...] #### C RP, CMP, URIC, MG #### [facility] [address] [address] [address] Kush Call DRUG CUT HEADER DRUG CLASS TEST SYST EM CUT-OFF CONCENTRATIONS ARE FOLLOWS: Normal [facility] Comment on above: Performed By: #### C RP, CMP, URIC, MG #### [facility] [address] [place] [address] Dr. Kush Call mAMP Negative Normal NEGATIVE [facility] Comment on above: Performed By: #### C RP, CMP, URIC, MG #### [facility] [address] [place] [address] Dr. Kush Call MTD Negative Normal NEGATIVE [facility] Comment on above: Performed By: #### C RP, CMP, URIC, MG #### [facility] [address] [address] [address] Kush Call OPI Negative Normal NEGATIVE [facility] Comment on above: Performed By: #### C RP, CMP, URIC, MG #### [facility] [address] [place] [address] Dr. Kush Call OXY Negative Normal NEGATIVE [facility] Comment on above: Performed By: #### C RP, CMP, URIC, MG #### [facility] [address] [place] [address] Dr. Kush Call PCP Negative Normal NEGATIVE [facility] Comment on above: Performed By: #### C RP, CMP, URIC, MG #### [facility] [address] [place] [address] Dr. Kush Call PPX Negative Normal NEGATIVE [facility] Comment on above: Performed By: #### C RP, CMP, URIC, MG #### [facility] [address] [place] [address] Dr. Kush Call TCA Negative Normal NEGATIVE [facility] Comment on above: Performed By: #### C RP, CMP, URIC, MG #### [facility] [address] [place] [address] Dr. Kush Call THC Negative Normal NEGATIVE [facility] Comment on above: Performed By: #### C RP, CMP, URIC, MG #### [facility] [address] [place] [address] Dr. Kush Call ER URINE PROFILEon 3 Bilirubin Ql (U) Negative Normal NEGATIVE [facility] Comment on above: Performed By: #### C RP, CMP, URIC, MG #### [facility] [address] [place] [address] Dr. Kush Call Clarity (U) CLEAR Normal CLEAR [facility] Comment on above: Performed By: #### C RP, CMP, URIC, MG #### [facility] [address] [address] [address] Kush Call Color (U) LT. YELLOW Normal YELLOW [facility] Comment on above: Performed By: #### C RP, CMP, URIC, MG #### [facility] [address] [place] [address] Dr. Kush MONTERO A micrscopic examina tion will be performed if indicated. Normal [facility] Comment on above: Performed By: #### C RP, CMP, URIC, MG #### [facility] [address] [place] [address] Dr. Kush Call Glucose Ql (U) Negative Normal NEGATIVE [facility] Comment on above: Performed By: #### C RP, CMP, URIC, MG #### [facility] [address] [place] [address] Dr. Kush Call Hemoglobin Ql (U) Negative Normal NEGATIVE [facility] Comment on above: Performed By: #### C RP, CMP, URIC, MG #### [facility] [address] [place] [address] Dr. Kush Call Ketones Ql (U) Negative Normal NEGATIVE [facility] Comment on above: Performed By: #### C RP, CMP, URIC, MG #### [facility] [address] [place] [address] Dr. Kush Call LEUKOCYTES Negative Normal NEGATIVE [facility] Comment on above: Performed By: #### C RP, CMP, URIC, MG #### [facility] [address] [place] [address] Dr. Kush Call Nitrite Ql (U) Negative Normal NEGATIVE [facility] Comment on above: Performed By: #### C RP, CMP, URIC, MG #### [facility] [address] [place] [address] Dr. Kush Call pH (U) 5.5 [pH] Normal 5-9 [facility] Comment on above: Performed By: #### C RP, CMP, URIC, MG #### [facility] [address] [place] [address] Dr. Kush Call SPEC GRAVITY <=1.005 Abnormal 1.005-<=1.02 5 [facility] Comment on above: Performed By: #### C RP, CMP, URIC, MG #### [facility] [address] [place] [address] Dr. Kush Call UA PROTEIN Negative Normal NEGATIVE/ TRACE [facility] Comment on above: Performed By: #### C RP, CMP, URIC, MG #### [facility] [address] [place] [address] Dr. Kush Call UR MICRO IND NOT INDICATED Normal [facility] Comment on above: Performed By: #### C RP, CMP, URIC, MG #### [facility] [address] [place] [address] Dr. Kush Call Urobilinogen Qn (U) 0.2 {Kirit'U}/dL Normal 0.2 - 1. 0 [facility] Comment on above: Performed By: #### C RP, CMP, URIC, MG #### [facility] [address] [place] [address] Dr. Kush Call LACTATE/LACTIC ACIDon 2022 Lactate [Moles/Vol] 3.0 mmol/L Critically high 0.4-1.9 [facility] Comment on above: Performed By: #### C RP, CMP, URIC, MG #### [facility] [address] [place] [address] Dr. Kush Call Lactate [Moles/Vol] 3.5 mmol/L Critically high 0.4-1.9 [facility] Comment on above: Performed By: #### C RP, CMP, URIC, MG #### [facility] [address] [place] [address] Dr. Kush Call PROF 14(COMP METB)on 023 Albumin [Mass/Vol] 3.3 g/dL Critically low 3.4-5.0 [facility] Comment on above: Performed By: #### C XAVIER BENOITDM #### [facility] [address] [place] [address] Dr. Kush Call Albumin/Globulin [Mass ratio] 0.8 {ratio} Normal [facility] Comment on above: Performed By: #### C KAYCEE CMADM #### [facility] [address] [address] [address] Kush Call ALP [Catalytic activity/Vol] 111 U/L Normal 46-116 [facility] Comment on above: Performed By: #### C MP, CMADM #### [facility] [address] [address] [address] Kush Call ALT [Catalytic activity/Vol] 63 U/L Critically high 14-59 [facility] Comment on above: Performed By: #### C MP, CMADM #### [facility] [address] [address] [address] Kush Call Anion gap [Moles/Vol] 20.5 mmol/L Normal [facility] Comment on above: Performed By: #### C MP, CMADM #### [facility] [address] [place] [address] Dr. Kush Call AST [Catalytic activity/Vol] 64 U/L Critically high 15-37 [facility] Comment on above: Performed By: #### C MP, CMADM #### [facility] [address] [address] [address] Kush Call Bilirubin [Mass/Vol] 0.5 mg/dL Normal 0.2-1.0 [facility] Comment on above: Performed By: #### C MP, CMADM #### [facility] [address] [address] [address] Kush Call Calcium [Mass/Vol] 9.4 mg/dL Normal 8.5-10.1 [facility] Comment on above: Performed By: #### C MP, CMADM #### [facility] [address] [address] [address] Kush Call Chloride [Moles/Vol] 101 mmol/L Normal 98-107 [facility] Comment on above: Performed By: #### C MP, CMADM #### [facility] [address] [address] [address] Kush Call CO2 [Moles/Vol] 19.8 mmol/L Critically low 21.0-32.0 [facility] Comment on above: Performed By: #### C MP, CMADM #### [facility] [address] [address] [address] Kush Call Creatinine [Mass/Vol] 0.50 mg/dL Critically low 0.55-1.02 [facility] Comment on above: Performed By: #### C MP, CMADM #### [facility] [address] [address] [address] Kush Call EGFR-AF BRAZILIAN >60 Normal >=60 [facility] Comment on above: Performed By: #### C MP, CMADM #### [facility] [address] [address] [address] Kush Call EGFR-NON AF BRAZILIAN >60 Normal >=60 [facility] Comment on above: Performed By: #### C MP, CMADM #### [facility] [address] [address] [address] Kush Call Globulin (S) [Mass/Vol] 4.1 g/dL Normal [facility] Comment on above: Performed By: #### C MP, CMADM #### [facility] [address] [address] [address] Kush Call Glucose [Mass/Vol] 112 mg/dL Critically high 74-106 [facility] Comment on above: Performed By: #### C MP, CMADM #### [facility] [address] [address] [address] Kush Call Potassium [Moles/Vol] 3.3 mmol/L Critically low 3.5-5.1 [facility] Comment on above: Performed By: #### C MP, CMADM #### [facility] [address] [address] [address] Kush Call Protein [Mass/Vol] 7.4 g/dL Normal 6.4-8.2 [facility] Comment on above: Performed By: #### C MP, CMADM #### [facility] [address] [address] [address] Kush Call Sodium [Moles/Vol] 138 mmol/L Normal 136-145 [facility] Comment on above: Performed By: #### C MP, CMADM #### [facility] [address] [place] [address] Dr. Kush Call Urea nitrogen [Mass/Vol] 2.0 mg/dL Critically low 7.0-18.0 [facility] Comment on above: Performed By: #### C MP, CMADM #### [facility] [address] [place] [address] Dr. Kush Call Urea nitrogen/Creatinine [Mass ratio] 4.0 mg/mg Normal [facility] Comment on above: Performed By: #### C MP, CMADM #### [facility] [address] [place] [address] Dr. Kush Call [facility] mm/hr Critically high <=20 [facility] Comment on above: Performed By: #### T SH #### [facility] [address] [place] [address] Dr. Kush Call TSHon 09-13-2022 TSH 2.552 uIU/mL Normal 0.358-3.740 [facility] Comment on above: Performed By: #### T SH #### [facility] [address] [place] [address] Dr. Kush Call VIT B12 AND FOLATEon 023 Cobalamin (Vitamin B12) [Mass/Vol] 700.0 pg/mL Normal 193.0-986.0 [facility] Comment on above: Performed By: #### C RP, CMP, URIC, MG #### [facility] [address] [place] [address] Dr. Kush Call FOLATE 1.60 ng/mL Critically low 8.60-58.90 [facility] Comment on above: Performed By: #### C RP, CMP, URIC, MG #### [facility] [address] [place] [address] Dr. Kush Call AMYLASEon 08-30-2022 Amylase [Catalytic activity/Vol] 28 U/L Normal 25-115 [facility] Comment on above: Performed By: #### C RP, CMP, URIC, MG #### [facility] [address] [address] [address] Kush Call CBC AUTO DIFFon 08-30-2022 BASO # 0.1 103/ul Normal 0.0-0.1 [facility] Comment on above: Performed By: #### T SH #### [facility] [address] [place] [address] Dr. Kush Call Basophils/100 WBC (Bld) 0.8 % Normal 0.2-2.0 [facility] Comment on above: Performed By: #### T SH #### [facility] [address] [place] [address] Dr. Kush Call EO # 0.0 103/ul Normal 0.0-0.7 [facility] Comment on above: Performed By: #### T SH #### [facility] [address] [place] [address] Dr. Kush Call Eosinophils/100 WBC (Bld) 0.5 % Critically low 0.9-7.0 [facility] Comment on above: Performed By: #### T SH #### [facility] [address] [place] [address] Dr. Kush Call Erythrocyte distribution width (RBC) [Ratio] 12.4 % Normal 11.0-15.0 [facility] Comment on above: Performed By: #### T SH #### [facility] [address] [place] [address] Dr. Kush Call Hematocrit (Bld) [Volume fraction] 39.8 % Normal 36.0-48.0 [facility] Comment on above: Performed By: #### T SH #### [facility] [address] [place] [address] Dr. Kush Call Hemoglobin (Bld) [Mass/Vol] 14.3 g/dL Normal 12.0-16.0 [facility] Comment on above: Performed By: #### T SH #### [facility] [address] [place] [address] Dr. Kush Call IG # 0.03 10e3/ul Normal 0.00-0.03 [facility] Comment on above: Performed By: #### T SH #### [facility] [address] [place] [address] Dr. Kush Call IG % 0.5 % Normal 0.0-0.5 [facility] Comment on above: Performed By: #### T SH #### [facility] [address] [place] [address] Dr. Kush Call LYMPH # 1.2 103/ul Normal 1.2-3.8 [facility] Comment on above: Performed By: #### T SH #### [facility] [address] [place] [address] Dr. Kush Call Lymphocytes/100 WBC (Bld) 18.3 % Critically low 20.5-60.0 [facility] Comment on above: Performed By: #### T SH #### [facility] [address] [place] [address] Dr. Kush Call MANUAL DIFF REQ NO Normal [facility] Comment on above: Performed By: #### T SH #### [facility] [address] [place] [address] Dr. Kush Call MCH (RBC) [Entitic mass] 37.2 pg Critically high 26.7-34.0 [facility] Comment on above: Performed By: #### T SH #### [facility] [address] [place] [address] Dr. Kush Call MCHC (RBC) [Mass/Vol] 35.9 g/dL Critically high 29.9-35.2 [facility] Comment on above: Performed By: #### T SH #### [facility] [address] [place] [address] Dr. Kush Call MCV (RBC) [Entitic vol] 103.6 fL Critically high 81.0-99 .0 [facility] Comment on above: Performed By: #### T SH #### [facility] [address] [place] [address] Dr. Kush Call MONO # 0.4 103/ul Normal 0.3-0.8 [facility] Comment on above: Performed By: #### T SH #### [facility] [address] [place] [address] Dr. Kush Call Monocytes/100 WBC (Bld) 6.1 % Normal 1.7-12.0 [facility] Comment on above: Performed By: #### T SH #### [facility] [address] [place] [address] Dr. Kush Call NEUT # 4.7 103/ul Normal 1.4-6.5 [facility] Comment on above: Performed By: #### T SH #### [facility] [address] [place] [address] Dr. Kush Call Neutrophils/100 WBC (Bld) 73.8 % Normal 43.0-75.0 [facility] Comment on above: Performed By: #### T SH #### [facility] [address] [place] [address] Dr. Kush Call Platelet mean volume (Bld) [Entitic vol] 9.2 fL Critically low 9.5-13.5 [facility] Comment on above: Performed By: #### T SH #### [facility] [address] [place] [address] Dr. Kush Call PLT 288 103/ul Normal 150-450 [facility] Comment on above: Performed By: #### T SH #### [facility] [address] [place] [address] Dr. Kush Call RBC 3.84 106/ul Critically low 4.20-5.40 [facility] Comment on above: Performed By: #### T SH #### [facility] [address] [place] [address] Dr. Kush Call WBC 6.4 103/ul Normal 4.0-11.0 [facility] Comment on above: Performed By: #### T SH #### [facility] [address] [place] [address] Dr. Kush Call ER URINE PROFILEon 3 Bilirubin Ql (U) Negative Normal NEGATIVE [facility] Comment on above: Performed By: #### U MICRO, ERUR #### [facility] [address] [address] [address] Kush Call Clarity (U) CLEAR Normal CLEAR [facility] Comment on above: Performed By: #### U MICRO, ERUR #### [facility] [address] [place] [address] Dr. Kush Call Color (U) LT. YELLOW Normal YELLOW [facility] Comment on above: Performed By: #### U MICRO, ERUR #### [facility] [address] [place] [address] Dr. Kush Call ERUAHD A micrscopic examina tion will be performed if indicated. Normal [facility] Comment on above: Performed By: #### U MICRO, ERUR #### [facility] [address] [place] [address] Dr. Kush Call Glucose Ql (U) Negative Normal NEGATIVE [facility] Comment on above: Performed By: #### U MICRO, ERUR #### [facility] [address] [place] [address] Dr. Kush Call Hemoglobin Ql (U) Negative Normal NEGATIVE [facility] Comment on above: Performed By: #### U MICRO, ERUR #### [facility] [address] [place] [address] Dr. Kush Call Ketones Ql (U) Negative Normal NEGATIVE [facility] Comment on above: Performed By: #### U MICRO, ERUR #### [facility] [address] [place] [address] Dr. Kush Call LEUKOCYTES SMALL Abnormal NEGATIVE [facility] Comment on above: Performed By: #### U MICRO, ERUR #### [facility] [address] [place] [address] Dr. Kush Call Nitrite Ql (U) Negative Normal NEGATIVE [facility] Comment on above: Performed By: #### U MICRO, ERUR #### [facility] [address] [place] [address] Dr. Kush Call pH (U) 7.0 [pH] Normal 5-9 [facility] Comment on above: Performed By: #### U MICRO, ERUR #### [facility] [address] [place], [place] [id number] Dr. Kush Call SPEC GRAVITY <=1.005 Abnormal 1.005-<=1.02 5 [facility] Comment on above: Performed By: #### U MICRO, ERUR #### [facility] [address] [place] [address] Dr. Kush Call UA PROTEIN Negative Normal NEGATIVE/ TRACE [facility] Comment on above: Performed By: #### U MICRO, ERUR #### [facility] [address] [place] [address] Dr. Kush Call UR MICRO IND INDICATED Normal [facility] Comment on above: Performed By: #### U MICRO, ERUR #### [facility] [address] [place] [address] Dr. Kush Call Urobilinogen Qn (U) 1.0 {Kirit'U}/dL Normal 0.2 - 1. 0 [facility] Comment on above: Performed By: #### U MICRO, ERUR #### [facility] [address] [place] [address] Dr. Kush Call LIPASEon 08-30-2022 Lipase [Catalytic activity/Vol] 40.0 U/L Critically low 73.0-393.0 [facility] Comment on above: Performed By: #### C RP, CMP, URIC, MG #### [facility] [address] [place] [address] Dr. Kush Call PROF 14(COMP METB)on 023 Albumin [Mass/Vol] 3.2 g/dL Critically low 3.4-5.0 [facility] Comment on above: Performed By: #### C RP, CMP, URIC, MG #### [facility] [address] [place] [address] Dr. Kush Call Albumin/Globulin [Mass ratio] 0.9 {ratio} Normal [facility] Comment on above: Performed By: #### C RP, CMP, URIC, MG #### [facility] [address] [place] [address] Dr. Kush Call ALP [Catalytic activity/Vol] 100 U/L Normal 46-116 [facility] Comment on above: Performed By: #### C RP, CMP, URIC, MG #### [facility] [address] [address] [address] Kush Call ALT [Catalytic activity/Vol] 66 U/L Critically high 14-59 [facility] Comment on above: Performed By: #### C RP, CMP, URIC, MG #### [facility] [address] [address] [address] Kush Call Anion gap [Moles/Vol] 14.6 mmol/L Normal [facility] Comment on above: Performed By: #### C RP, CMP, URIC, MG #### [facility] [address] [place] [address] Dr. Kush Call AST [Catalytic activity/Vol] 120 U/L Critically high 15-37 [facility] Comment on above: Performed By: #### C RP, CMP, URIC, MG #### [facility] [address] [place] [address] Dr. Kush Call Bilirubin [Mass/Vol] 1.1 mg/dL Critically high 0.2-1.0 [facility] Comment on above: Performed By: #### C RP, CMP, URIC, MG #### [facility] [address] [place] [address] Dr. Kush Call Calcium [Mass/Vol] 9.0 mg/dL Normal 8.5-10.1 [facility] Comment on above: Performed By: #### C RP, CMP, URIC, MG #### [facility] [address] [place] [address] Dr. Kush Call Chloride [Moles/Vol] 102 mmol/L Normal 98-107 [facility] Comment on above: Performed By: #### C RP, CMP, URIC, MG #### [facility] [address] [place] [address] Dr. Kush Call CO2 [Moles/Vol] 25.4 mmol/L Normal 21.0-32.0 [facility] Comment on above: Performed By: #### C RP, CMP, URIC, MG #### [facility] [address] [address] [address] Kush Call Creatinine [Mass/Vol] 0.62 mg/dL Normal 0.55-1.02 [facility] Comment on above: Performed By: #### C RP, CMP, URIC, MG #### [facility] [address] [address] [address] Kush Call EGFR-AF BRAZILIAN >60 Normal >=60 [facility] Comment on above: Performed By: #### C RP, CMP, URIC, MG #### [facility] [address] [place] [address] Dr. Kush Call EGFR-NON AF BRAZILIAN >60 Normal >=60 [facility] Comment on above: Performed By: #### C RP, CMP, URIC, MG #### [facility] [address] [place] [address] Dr. Kush Call Globulin (S) [Mass/Vol] 3.5 g/dL Normal [facility] Comment on above: Performed By: #### C RP, CMP, URIC, MG #### [facility] [address] [place] [address] Dr. Kush Call Glucose [Mass/Vol] 114 mg/dL Critically high 74-106 [facility] Comment on above: Performed By: #### C RP, CMP, URIC, MG #### [facility] [address] [place] [address] Dr. Kush Call Potassium [Moles/Vol] 3.0 mmol/L Critically low 3.5-5.1 [facility] Comment on above: Performed By: #### C RP, CMP, URIC, MG #### [facility] [address] [place] [address] Dr. Kush Call Protein [Mass/Vol] 6.7 g/dL Normal 6.4-8.2 [facility] Comment on above: Performed By: #### C RP, CMP, URIC, MG #### [facility] [address] [place] [address] Dr. Kush Call Sodium [Moles/Vol] 139 mmol/L Normal 136-145 [facility] Comment on above: Performed By: #### C RP, CMP, URIC, MG #### [facility] [address] [address] [address] Kush Call Urea nitrogen [Mass/Vol] 3.0 mg/dL Critically low 7.0-18.0 [facility] Comment on above: Performed By: #### C RP, CMP, URIC, MG #### [facility] [address] [address] [address] Kush Call Urea nitrogen/Creatinine [Mass ratio] 4.8 mg/mg Normal [facility] Comment on above: Performed By: #### C RP, CMP, URIC, MG #### [facility] [address] [address] [address] Kush Call URINE MICROSCOPIC ONLYon BACTERIA TRACE Abnormal NONE SEEN [facility] Comment on above: Performed By: #### U MICRO, ERUR #### [facility] [address] [place] [address] Dr. Kush Call Bacteria identified Cx Nom (U) NOT INDICATED Normal [facility] Comment on above: Performed By: #### U MICRO, ERUR #### [facility] [address] [place] [address] Dr. Kush Call CAST NONE SEEN Normal NONE SEEN [facility] Comment on above: Performed By: #### U MICRO, ERUR #### [facility] [address] [place] [address] Dr. Kush Call Crystals LM Nom (Urine sed) NONE SEEN Normal NONE SEEN [facility] Comment on above: Performed By: #### U MICRO, ERUR #### [facility] [address] [place] [address] Dr. Kush Call Epithelial cells LM Ql (Urine sed) RARE Normal NONE SEEN /RARE [facility] Comment on above: Performed By: #### U MICRO, ERUR #### [facility] [address] [place] [address] Dr. Kush Call MUCOUS NONE SEEN Normal NONE SEEN [facility] Comment on above: Performed By: #### U MICRO, ERUR #### [facility] [address] [place] [address] Dr. Kush Call RBC 0-2 Normal 0-2 [facility] Comment on above: Performed By: #### U MICRO, ERUR #### [facility] [address] [place] [address] Dr. Kush Call WBC 0-2 Abnormal NONE SEEN [facility] Comment on above: Performed By: #### U MICRO, ERUR #### [facility] [address] [place] [address] Dr. Kush Call CHLAMYDIA/GONOCOCCUS OKSANA ( AB/URINE/PAPon 08-25-2022 Chlamydia trachomatis, OKSANA Negative Normal Negative [facility] Comment on above: Performed By: #### C T/NGNA #### [facility] [address] [place] [address] Dr. Kush Call Neisseria gonorrhoeae, OKSANA Negative Normal Negative [facility] Comment on above: Performed By: #### C T/NGNA #### [facility] [address] [place] [address] Dr. Kush Call CULTURE URINEon 08-25-2022 CULTURE [...] Trimethoprim/Sulfamethox azole <=20 S F Normal [facility] Comment on above: Performed By: #### C IRINA BENOIT #### [facility] [address] [place] [address] Dr. Kush Clal VAGINITIS/VAGINOSIS DNA PROB Wander 08-24-2022 Tiffany species Positive Abnormal Negative [facility] Comment on above: Performed By: #### C IRINA BENOIT #### [facility] [address] [address] [address] Kush Call Gardnerella vaginalis Positive Abnormal Negative [facility] Comment on above: Performed By: #### C KAYCEE, IRINA #### [facility] [address] [address] [address] Kush Call Trichomonas vaginalis Negative Normal Negative [facility] Comment on above: Performed By: #### C KAYCEE, IRINA #### [facility] [address] [address] [address] Kush Call ECHOCARDIO M/2D COMPLETEon 0 11-06-2021 ECHOCARDIO M/2D COMPLETE Patient: RICA STOUT Exam Date: 11/06/2021 : 1995 Gender:F Ordering : KLARISSA CHAMBERS Admission #: [id number] Family : DANUTA ARAUJO [facility] Order #: [id number] CLICK HERE TO VIEW EXAM ECHOCARDIOGRAM REPORT [...] Wilkinson M.D. on 11/06/2021 at 15:53 Normal [facility] Hepatitis Acute [facility] 11-11 Hep A Ab,IgM Non-Reactive Normal [facility] Comment on above: Performed By: #### L IVP #### [facility] [address] [place] [address] Defensive Driving Instructor: Karyna Silva MD #### PHEP #### [address] [address] Defensive Driving Instructor: Leonardo Sánchez MD Hep B Core Ab,IgM Non-Reactive Normal [facility] Comment on above: Performed By: #### L IVP #### [facility] [address] [place], [place] [id number] Defensive Driving Instructor: Karyna Silva MD #### PHEP #### [address] [place], [place] [id number] Defensive Driving Instructor: Leonardo Sánchez MD Hep B Surf Ag Non-Reactive Normal NR [facility] Comment on above: Performed By: #### L IVP #### [address] [place], [place] [id number] Defensive Driving Instructor: Karyna Silva MD #### PHEP #### [address] [place] [address] Defensive Driving Instructor: Leonardo Sánchez MD Hep C Ab Non-Reactive Normal [facility] Comment on above: Result Comment: The hepatitis [...] PCR. Performed By: #### L IVP #### [address] [place] [address] Defensive Driving Instructor: Karyna Silva MD #### PHEP #### [address] [place] [address] Defensive Driving Instructor: Leonardo Sánchez MD HCG, Quanton 11-10-2020 HCG, Quant <1 Normal <5 [facility] Comment on above: Result Comment: Non-preg premeno <=5 Postmeno <=8 Male <=3 If HCG results do not concur with clinical observations, additional testing to confirm results is recommended. Elevated results not associated with may be found in patients with other diseases such as tumors of the germ cells (testis, ovaries, etc.), bladder, pancreas, stomach, lungs, and liver. Performed By: #### B HCG #### [address] [place] [address] Defensive Driving Instructor: Karyna Silva MD HCG, Quantitative, Ordered By: Massimo Bright on 11-10-2020 hCG Quant <1 <5 IU/L [employer] Phone: Comment on above: Non-preg premeno <=5 [...] [Mass/Vol] 4.6 g/dL 3.5 - 5.2 g/dL [employer] Phone: Albumin/Globulin [Mass ratio] 1.5 {ratio} [employer] Phone: ALP (Bld) [Catalytic activity/Vol] 95 U/L 35 - 104 U/L [employer] Phone: ALT [Catalytic activity/Vol] 54 U/L High 5 - 33 U/L [employer] Phone: AST [Catalytic activity/Vol] 62 U/L High <32 [employer] Phone: Bilirubin [Mass/Vol] 0.93 mg/dL 0.3 - 1 .2 mg/dL [employer] Phone: Bilirubin, Indirect 0.72 mg/dL 0.00 - 1 .00 mg/dL [employer] Phone: Bilirubin.indirect [Mass/Vol] 0.21 mg/dL <0.31 [employer] Phone: Free PSA/Total PSA [Mass fraction] 7.6 g/dL 6.4 - 8.3 g/dL [employer] Phone: Globulin NOT REPORTED 1.5 - 3.8 g/dL [employer] Phone: Interpretation and review of laboratory results Abnormal [employer] Phone: Hepatitis Panel, AcuteOrdere d By: Kalia Bender on 11-10-2020 HAV IgM IA Qn (S) Non-Reactive NONREACTIVE [employer] Phone: Hep B Core Ab, IgM Non-Reactive NONREACTIVE [employer] Phone: Hepatitis B Surface Ag Non-Reactive NONREACTIVE [employer] Phone: Hepatitis C Ab Non-Reactive NONREACTIVE [facility] Phone: Comment on above: The hepatitis C [...] 11-10-2020 Albumin [Mass/Vol] 4.6 g/dL Normal 3.5-5.2 [facility] Comment on above: Performed By: #### L IVP #### [facility] [address] [place] [address] [place] [address] Defensive Driving Instructor: Karyna Silva MD #### PHEP #### [facility] [employer] [address] [place] [id number] Defensive Driving Instructor: Leonardo Sánchez MD Albumin/Glob Ratio 1.5 Normal 1.0-2.5 [facility] Comment on above: Performed By: #### L IVP #### [facility] [address] [place] [address] Defensive Driving Instructor: Karyna Silva MD #### PHEP #### [address] [place] [address] Defensive Driving Instructor: Leonardo Sánchez MD Alkaline Phos 95 U/L Normal 35-104 [facility] Comment on above: Performed By: #### L IVP #### [facility] [address] [place], [place] [id number] Defensive Driving Instructor: Karnya Silva MD #### PHEP #### [address] [address] Defensive Driving Instructor: Leonardo Sánchez MD ALT [Catalytic activity/Vol] 54 U/L High 5-33 [facility] Comment on above: Performed By: #### L IVP #### [facility] [address] [place], [place] [id number] Defensive Driving Instructor: Karyna Silva MD #### PHEP #### [address] [address] Defensive Driving Instructor: Leonardo Sánchez MD AST [Catalytic activity/Vol] 62 U/L High <32 [facility] Comment on above: Performed By: #### L IVP #### [facility] [address] [place] [address] [place], [place] [id number] Defensive Driving Instructor: Karyna Silva MD #### PHEP #### [address] [address] Defensive Driving Instructor: Leonardo Sánchez MD Bilirubin [Mass/Vol] 0.93 mg/dL Normal 0.3-1.2 [facility] Comment on above: Performed By: #### L IVP #### [facility] [address] [place], [place] [id number] Defensive Driving Instructor: Karyna Silva MD #### PHEP #### [address] [address] Defensive Driving Instructor: Leonardo Sánchez MD Bilirubin, Indirect 0.72 mg/dL Normal 0.00-1.00 [facility] Comment on above: Performed By: #### L IVP #### [facility] [place], [place] [id number] Defensive Driving Instructor: Karyna Silva MD #### PHEP #### [address] [id number] Defensive Driving Instructor: Leonardo Sánchez MD Bilirubin.indirect [Mass/Vol] 0.21 mg/dL Normal <0.31 [facility] Comment on above: Performed By: #### L IVP #### [address] [place] [id number] Defensive Driving Instructor: Karyna Silva MD #### PHEP #### [address] [address] Defensive Driving Instructor: Leonardo Sánchez MD Protein [Mass/Vol] 7.6 g/dL Normal 6.4-8.3 [facility] Comment on above: Performed By: #### L IVP #### [address] [place] [id number] Defensive Driving Instructor: Karyna Silva MD #### PHEP #### [address] [address] Defensive Driving Instructor: Leonardo Sánchez MD Globulin Fraction NOT REPORTED Normal 1.5-3.8 [facility] Comment on above: Performed By: #### L IVP #### [address] [place] [id number] Defensive Driving Instructor: Karyna Silva MD #### PHEP #### [address] [address] Defensive Driving Instructor: Leonardo Sánchez MD CBCon 04-06-2020 Erythrocyte distribution width (RBC) [Ratio] 11.8 % Normal 11.8-14.4 [facility] Comment on above: Performed By: #### C P, CBC #### [address] [place], [place] [id number] Defensive Driving Instructor: Amilcar Wing MD #### HIVCMB #### [address] [place], [place] [id number] Defensive Driving Instructor: Leonardo Sánchez MD Hematocrit (Bld) [Volume fraction] 43.4 % Normal 36.3-47.1 [facility] Comment on above: Performed By: #### C P, CBC #### [address] [place] [id number] Defensive Driving Instructor: Amilcar Wing MD #### HIVCMB #### [address] [id number] Defensive Driving Instructor: Leonardo Sánchez MD Hemoglobin (Bld) [Mass/Vol] 14.4 g/dL Normal 11.9-15.1 [facility] Comment on above: Performed By: #### C P, CBC #### [address] [place] [id number] Defensive Driving Instructor: Amilcar Wing MD #### HIVCMB #### [address] [id number] Defensive Driving Instructor: Leonardo Sánchez MD MCH (RBC) [Entitic mass] 33.0 pg Normal 25.2-33.5 [facility] Comment on above: Performed By: #### C P, CBC #### [address] [place] [id number] Defensive Driving Instructor: Amilcar Wing MD #### HIVCMB #### [address] [id number] Defensive Driving Instructor: Leonardo Sánchez MD MCHC (RBC) [Mass/Vol] 33.2 g/dL Normal 28.4-34.8 [facility] Comment on above: Performed By: #### C P, CBC #### [address] [place] [address] Defensive Driving Instructor: Amilcar Wing MD #### HIVCMB #### [address] [id number] Defensive Driving Instructor: Leonardo Sánchez MD MCV (RBC) [Entitic vol] 99.3 fL Normal 82.6-102.9 [facility] Comment on above: Performed By: #### C P, CBC #### [facility] [address] [place] [id number] Defensive Driving Instructor: Amilcar Wing MD #### HIVCMB #### [address] [id number] Defensive Driving Instructor: Leonardo Sánchez MD NRBC Automated 0.0 per 100 WBC Normal 0.0 [facility] Comment on above: Performed By: #### C P, CBC #### [address] [place] [id number] Defensive Driving Instructor: Amilcar Wing MD #### HIVCMB #### [place] [address] Defensive Driving Instructor: Leonardo Sánchez MD Platelet mean volume (Bld) [Entitic vol] 9.4 fL Normal 8.1-13.5 [facility] Comment on above: Performed By: #### C P, CBC #### [address] [place] [id number] Defensive Driving Instructor: Amilcar Wing MD #### HIVCMB #### [place] [address] Defensive Driving Instructor: Leonardo Sánchez MD Platelets (Bld) [#/Vol] 238 10*3/uL Normal 138-453 [facility] Comment on above: Performed By: #### C P, CBC #### [address] [place] [id number] Defensive Driving Instructor: Amilcar Wing MD #### HIVCMB #### [address], [place] [id number] Defensive Driving Instructor: Leonardo Sánchez MD RBC (Bld) [#/Vol] 4.37 10*6/uL Normal 3.95-5.11 [facility] Comment on above: Performed By: #### C P, CBC #### [facility] [address] [place], [place] [id number] Defensive Driving Instructor: Amilcar Wing MD #### HIVCMB #### [place] [id number] [place], [place] [id number] Defensive Driving Instructor: Leonardo Sánchez MD WBC (Bld) [#/Vol] 7.5 10*3/uL Normal 3.5-11.3 [facility] Comment on above: Performed By: #### C P, CBC #### [facility] [address] [place] [address] Defensive Driving Instructor: Amilcar Wing MD #### HIVCMB #### [address] [place], [place] [id number] Defensive Driving Instructor: Leonardo Sánchez MD Erythrocyte distribution width (RBC) [Ratio] 11.8 % 11.8 - 14.4 % [place] Hematocrit (Bld) [Volume fraction] 43.4 % 36.3 - 47.1 % [place] Hemoglobin (Bld) [Mass/Vol] 14.4 g/dL 11.9 - 15.1 g/dL [place] MCH (RBC) [Entitic mass] 33.0 pg 25.2 - 33.5 pg [place] MCHC (RBC) [Mass/Vol] 33.2 g/dL 28.4 - 34.8 g/dL [place] MCV (RBC) [Entitic vol] 99.3 fL 82.6 - 102.9 fL [place] Platelet mean volume (Bld) [Entitic vol] 9.4 fL 8.1 - 13.5 fL [place] Platelets (Bld) [#/Vol] 238 10*3/uL [place] RBC (Bld) [#/Vol] 4.37 10*6/uL 3.95 - 5.1 1 m/uL [place] WBC (Bld) [#/Vol] 7.5 10*3/uL [place] WBC (Bld) [#/Vol] 0.0 10*3/uL 0.0 per 10 0 WBC [place] Comp Metabolic Profon 2019 (cont.) Normal [facility] Comment on above: Result Comment: Aver age GFR for 20-29 years old: 116 mL/min/1.73sq m Chronic Kidney Disease: <60 mL/min/1.73sq m Kidney failure: <15 mL/min/1.73sq m eGFR calculated using average adult body mass. Additional eGFR calculator available at: http://www.BetaStudios/multiple_crcl_2012.htm Performed By: #### C P, CBC #### [facility] [address] [place] [address] [place] [address] Defensive Driving Instructor: Amilcar Wing MD #### HIVCMB #### [address] [address] Defensive Driving Instructor: Leonardo Sánchez MD Albumin [Mass/Vol] 4.3 g/dL Normal 3.5-5.2 [facility] Comment on above: Performed By: #### C P, CBC #### [address] [place] [address] Defensive Driving Instructor: Amilcar Wing MD #### HIVCMB #### [address] [place] [address] Defensive Driving Instructor: Leonardo Sánchez MD Albumin/Glob Ratio 1.5 Normal 1.0-2.5 [facility] Comment on above: Performed By: #### C P, CBC #### [address] [place] [address] Defensive Driving Instructor: Amilcar Wing MD #### HIVCMB #### [facility] [address] [place] [address] Defensive Driving Instructor: Leonardo Sánchez MD Alkaline Phos 68 U/L Normal 35-104 [facility] Comment on above: Performed By: #### C P, CBC #### [facility] [address] [place], [place] [id number] Defensive Driving Instructor: Amilcar Wing MD #### HIVCMB #### [address] [address] Defensive Driving Instructor: Leonardo Sánchez MD ALT [Catalytic activity/Vol] 48 U/L High 5-33 [facility] Comment on above: Performed By: #### C P, CBC #### [facility] [address] [place] [address] Dr. [place], [place] [id number] Defensive Driving Instructor: Amilcar Wing MD #### HIVCMB #### [address] [address] Defensive Driving Instructor: Leonardo Sánchez MD Anion gap [Moles/Vol] 10 mmol/L Normal 9-17 [facility] Comment on above: Performed By: #### C P, CBC #### [facility] [address] [place] [address] [place] [address] Defensive Driving Instructor: Amilcar Wing MD #### HIVCMB #### [address] [address] Defensive Driving Instructor: Leonardo Sánchez MD AST [Catalytic activity/Vol] 30 U/L Normal <32 [facility] Comment on above: Performed By: #### C P, CBC #### [facility] [address] [place] [address] Defensive Driving Instructor: Amilcar Wing MD #### HIVCMB #### [address] [address] Defensive Driving Instructor: Leonardo Sánchez MD Bilirubin [Mass/Vol] 0.89 mg/dL Normal 0.3-1.2 [facility] Comment on above: Performed By: #### C P, CBC #### [facility] [address] [place] [address] Defensive Driving Instructor: Amilcar Wing MD #### HIVCMB #### [address] [id number] Defensive Driving Instructor: Leonardo Sánchez MD BUN/CRE Ratio 10 Normal 9-20 [facility] Comment on above: Performed By: #### C P, CBC #### [facility] [address] [place] [address] Defensive Driving Instructor: Amilcar Wing MD #### HIVCMB #### [address] [id number] Defensive Driving Instructor: Leonardo Sánchez MD Calcium [Mass/Vol] 9.5 mg/dL Normal 8.6-10.4 [facility] Comment on above: Performed By: #### C P, CBC #### [facility] [address] [place] [address] Defensive Driving Instructor: Amilcar Wing MD #### HIVCMB #### [address] [address] Defensive Driving Instructor: Leonardo Sánchez MD Chloride [Moles/Vol] 103 mmol/L Normal 98-107 [facility] Comment on above: Performed By: #### C P, CBC #### [facility] [address] [place], [place] [id number] Defensive Driving Instructor: Amilcar Wing MD #### HIVCMB #### [address] [address] Defensive Driving Instructor: Leonardo Sánchez MD CO2 [Moles/Vol] 22 mmol/L Normal 20-31 [facility] Comment on above: Performed By: #### C P, CBC #### [facility] [address] [place] [address] Defensive Driving Instructor: Amilcar Wing MD #### HIVCMB #### [facility] [address] [place] [address] Defensive Driving Instructor: Leonardo Sánchez MD Creatinine [Mass/Vol] 0.69 mg/dL Normal 0.50-0.90 [facility] Comment on above: Performed By: #### C P, CBC #### [facility] [address] [place] [address] [place], [place] [phone] Defensive Driving Instructor: Amilcar Wing MD #### HIVCMB #### [address] [address] Defensive Driving Instructor: Leonardo Sánchez MD GFR, Amer >60 Normal >60 [facility] Comment on above: Performed By: #### C P, CBC #### [facility] [address] [place] [address] [place] [address] Defensive Driving Instructor: Amilcar Wing MD #### HIVCMB #### [address] [address] Defensive Driving Instructor: Leonardo Sánchez MD GFR,non Amer >60 Normal >60 [facility] Comment on above: Performed By: #### C P, CBC #### [facility] [address] [place] [address] [place] [address] Defensive Driving Instructor: Amilcar Wing MD #### HIVCMB #### [address] [address] Defensive Driving Instructor: Leonardo Sánchez MD Glucose [Mass/Vol] 106 mg/dL High 70-99 [facility] Comment on above: Performed By: #### C P, CBC #### [facility] [address] [place], [place] [id number] Defensive Driving Instructor: Amilcar Wing MD #### HIVCMB #### [address] [id number] Defensive Driving Instructor: Leonardo Sánchez MD Potassium [Moles/Vol] 4.3 mmol/L Normal 3.7-5.3 [facility] Comment on above: Performed By: #### C P, CBC #### [address] [place], [place] [id number] Defensive Driving Instructor: Amilcar Wing MD #### HIVCMB #### [address] [id number] Defensive Driving Instructor: Leonardo Sánchez MD Protein [Mass/Vol] 7.1 g/dL Normal 6.4-8.3 [facility] Comment on above: Performed By: #### C P, CBC #### [address] [place] [id number] Defensive Driving Instructor: Amilcar Wing MD #### HIVCMB #### [address] [address] Defensive Driving Instructor: Leonardo Sánchez MD Sodium [Moles/Vol] 135 mmol/L Normal 135-144 [facility] Comment on above: Performed By: #### C P, CBC #### [address] [place], [place] [id number] Defensive Driving Instructor: Amilcar Wing MD #### HIVCMB #### [address] [address] Defensive Driving Instructor: Leonardo Sánchez MD Staging: Normal [facility] Comment on above: Result Comment: Stag e 1: Some kidney damage normal GFR Stage 2: Mild kidney damage GFR 60-89 Stage 3: Moderate kidney damage GFR 30-59 Stage 4: Severe kidney damage GFR 15-29 Stage 5: Severe kidney damage GFR <15 ESRD - chronic treatment by dialysis or transplant Performed By: #### C P, CBC #### [facility] [address] [place], [place] [id number] Defensive Driving Instructor: Amilcar Wing MD #### HIVCMB #### [facility] [address] [place], [place] [phone] Defensive Driving Instructor: Leonardo Sánchez MD Urea nitrogen [Mass/Vol] 7 mg/dL Normal 6-20 [facility] Comment on above: Performed By: #### C P, CBC #### [facility] [address] [place], [place] [id number] Defensive Driving Instructor: Amilcar Wing MD #### HIVCMB #### [facility] [address] [place], [place] [phone] Defensive Driving Instructor: Leonardo Sánchez MD Comprehensive Metabolic Pane [facility] 04-06-2020 Albumin [Mass/Vol] 4.3 g/dL 3.5 - 5.2 g/dL [place] Albumin/Globulin [Mass ratio] 1.5 {ratio} [place] ALP [Catalytic activity/Vol] 68 U/L 35 - 104 U/L [place] ALT [Catalytic activity/Vol] 48 U/L High 5 - 33 U/L [place] Anion gap [Moles/Vol] 10 mmol/L 9 - 17 mmol/L [place] AST [Catalytic activity/Vol] 30 U/L <32 [place] Bilirubin Ql (U) 0.89 mg/dL 0.3 - 1.2 mg/dL [place] Bun/Cre Ratio 10 [place] Calcium [Mass/Vol] 9.5 mg/dL 8.6 - 10. 4 mg/dL [place] Chloride [Moles/Vol] 103 mmol/L 98 - 10 7 mmol/L [place] CO2 [Moles/Vol] 22 mmol/L 20 - 31 mmol/L [place] Creatinine [Mass/Vol] 0.69 mg/dL 0.5 - 0.9 mg/dL [place] GFR >60 >60 mL/min [place] GFR Non- >60 >60 mL/min [place] Glucose [Mass/Vol] 106 mg/dL High 70 - 99 mg/dL [place] Interpretation and review of laboratory results Abnormal [place] Potassium [Moles/Vol] 4.3 mmol/L 3.7 - 5.3 mmol/L [place] Protein [Mass/Vol] 7.1 g/dL 6.4 - 8.3 g/dL [place] Sodium [Moles/Vol] 135 mmol/L 135 - 144 mmol/L [place] Urea nitrogen [Mass/Vol] 7 mg/dL 6 - 20 mg/dL [place] HIV Ag/Abon 04-06-2020 HIV Ag/Ab Non-Reactive Normal NR [facility] Comment on above: Result Comment: No l aboratory evidence of HIV infection. If acute HIV infection is suspected, consider testing for HIV-1 RNA. Performed By: #### C P, CBC #### [facility] [address] [place] [address] Defensive Driving Instructor: Amilcar Wing MD #### HIVCMB #### [facility] [address] [place] [address] Defensive Driving Instructor: Leonardo Sánchez MD HIV Screenon 04-06-2020 HIV Ag/Ab NONREACTIVE NONREACTIVE [place] Comment on above: No laboratory eviden ce of HIV infection. If acute HIV infection is suspected, consider testing for HIV-1 RNA. Metabolic Panelon 04-06-2020 GFR/1.73 sq M predicted among non-blacks MDRD (S/P/Bld) [Vol rate/Area] [place] Comment on above: Stage 1: Some [...] body mass. Additional eGFR calculator available at: http://www.[employer].Invacio/multiple_crcl_2012.htm Vital Signs Date Time Vital Sign Value Performing Clinician Emmett betts 07-03-2023 09:02-0500 Body temperature 97.1 [degF] ROCK LOADER-C Danuta Van Work Phone: [facility] 07-03-2023 09:02-0500 Body weight 63.04 kg [employer]OCK LOADER-C Danuta Van Work Phone: [facility] 07-03-2023 09:02-0500 Diastolic blood pressure 81 mm[Hg] ROCK LOADER-C Danuta Van Work Phone: [facility] 07-03-2023 09:02-0500 Heart rate 111 /min [employer] LO[employer]ER-C Danuta Van Work Phone: [facility] 07-03-2023 09:02-0500 Respiratory rate 16 /min [employer] LO[employer]ER-C Danuta Van Work Phone: [facility] 07-03-2023 09:02-0500 SaO2% (BldA) [Mass fraction] 99 % [employer]OCK LO[employer]ER-C Danuta Van Work Phone: [facility] 07-03-2023 09:02-0500 Systolic blood pressure 120 mm[Hg] ROCK LOADER-C Danuta Van Work Phone: [facility] 06-12-2023 10:40-0500 Diastolic blood pressure 79 mm[Hg] ROCK LOADER-C Danuta Van Work Phone: [facility] 06-12-2023 10:40-0500 Heart rate 102 /min ROCK LOADER-C Danuta Van Work Phone: [facility] 06-12-2023 10:40-0500 Respiratory rate 20 /min ROCK LOADER-C Danuta Van Work Phone: [facility] 06-12-2023 10:40-0500 SaO2% (BldA) [Mass fraction] 98 % [employer]OCK LOADER-C Danuta Van Work Phone: [facility] 06-12-2023 10:40-0500 Systolic blood pressure 116 mm[Hg] ROCK LOADER-C Danuta Van Work Phone: [facility] 06-12-2023 09:21-0500 Body height 162.56 cm ROCK LOADER-C Danuta Van Work Phone: [facility] 06-12-2023 09:21-0500 Body temperature 98.7 [degF] ROCK LOADER-C Danuta Van Work Phone: [facility] 06-12-2023 09:21-0500 Body weight 60.32 kg ROCK LOADER-C Danuta Van Work Phone: [facility] 05-30-2023 14:24-0500 Body temperature 98.1 [degF] ROCK LOADER-C Danuta Van Work Phone: [facility] 05-30-2023 14:24-0500 Body weight 61.91 kg ROCK LOADER-C Danuta Van Work Phone: [facility] 05-30-2023 14:24-0500 Diastolic blood pressure 80 mm[Hg] ROCK LOADER-C Danuta Van Work Phone: [facility] 05-30-2023 14:24-0500 Heart rate 121 /min ROCK LOADER-C Danuta Van Work Phone: [facility] 05-30-2023 14:24-0500 Respiratory rate 20 /min ROCK LOADER-C Danuta Van Work Phone: [facility] 05-30-2023 14:24-0500 SaO2% (BldA) [Mass fraction] 100 % [employer]OCK LOADER-C Danuta Van Work Phone: [facility] 05-30-2023 14:24-0500 Systolic blood pressure 116 mm[Hg] ROCK LOADER-C Danuta Van Work Phone: [facility] 05-30-2023 14:11-0500 Body height 162.56 cm ROCK LOADER-C Danuta Van Work Phone: [facility] 05-23-2023 14:08-0400 Body height 162.6 cm Arsh Orozco MD Work Phone: [facility] 05-23-2023 14:08-0400 Body weight 61.24 kg Arsh Orozco MD Work Phone: [facility] 05-23-2023 14:08-0400 Diastolic blood pressure 72 mm[Hg] Arsh Orozco MD Work Phone: [facility] 05-23-2023 14:08-0400 Heart rate 104 /min Arsh Orozco MD Work Phone: [facility] 05-23-2023 14:08-0400 Respiratory rate 16 /min Arsh Orozco MD Work Phone: [facility] 05-23-2023 14:08-0400 SaO2% (BldA) [Mass fraction] 100 % Arsh Orozco MD Work Phone: [facility] 05-23-2023 14:08-0400 Systolic blood pressure 105 mm[Hg] Arsh Orozco MD Work Phone: [facility] 04-03-2023 06:41-0400 Body temperature 98.4 [degF] ROCK LOADER-C Danutagary Araujo Work Phone: [facility] 04-03-2023 06:41-0400 Diastolic blood pressure 67 mm[Hg] ROCK LOADER-C Danuta Van Work Phone: [facility] 04-03-2023 06:41-0400 Heart rate 107 /min ROCK LOADER-C Danuta Van Work Phone: [facility] 04-03-2023 06:41-0400 Respiratory rate 16 /min ROCK LOADER-C Danuta Van Work Phone: [facility] 04-03-2023 06:41-0400 SaO2% (BldA) [Mass fraction] 98 % ROCK LO[employer]ER-C Danuta Van Work Phone: [facility] 04-03-2023 06:41-0400 Systolic blood pressure 108 mm[Hg] ROCK LOADER-C Danuta Van Work Phone: [facility] 04-02-2023 12:51-0400 Body height 162.56 cm ROCK LOADER-C Danuta Van Work Phone: [facility] 03-31-2023 04:20-0400 Body weight 60.9 kg ROCK LOADER-C Danuta Van Work Phone: [facility] 03-27-2023 11:48-0400 Body temperature 97.8 [degF] ROCK LOADER-C Danuta Van Work Phone: [facility] 03-27-2023 11:48-0400 Diastolic blood pressure 92 mm[Hg] ROCK LOADER-C Danuta Van Work Phone: [facility] 03-27-2023 11:48-0400 Heart rate 84 /min ROCK LOADER-C Danuta Van Work Phone: [facility] 03-27-2023 11:48-0400 Respiratory rate 13 /min ROCK LOADER-C Danuta Van Work Phone: [facility] 03-27-2023 11:48-0400 SaO2% (BldA) [Mass fraction] 100 % ROCK LOADER-C Danuta Van Work Phone: [facility] 03-27-2023 11:48-0400 Systolic blood pressure 132 mm[Hg] ROCK LOADER-C Danuta Van Work Phone: [facility] 03-27-2023 06:00-0400 Body weight 59.9 kg ROCK LOADER-C Danuta Van Work Phone: [facility] 03-22-2023 11:40-0400 Body height 162.56 cm ROCK LOADER-C Danuta Van Work Phone: [facility] 03-22-2023 01:40-0400 Body height 162.56 cm ROCK LOADER-C Danuta Van Work Phone: [facility] 03-22-2023 01:40-0400 Body temperature 98.1 [degF] ROCK LOADER-C Danuta Van Work Phone: [facility] 03-22-2023 01:40-0400 Body weight 64.4 kg ROCK LOADER-C Danuta Van Work Phone: [facility] 03-22-2023 01:40-0400 Diastolic blood pressure 75 mm[Hg] ROCK LOADER-C Danuta Van Work Phone: [facility] 03-22-2023 01:40-0400 Heart rate 98 /min ROCK LOADER-C Danuta Van Work Phone: [facility] 03-22-2023 01:40-0400 Respiratory rate 13 /min ROCK LOADER-C Danuta Van Work Phone: [facility] 03-22-2023 01:40-0400 SaO2% (BldA) [Mass fraction] 100 % ROCK LOADER-C Danuta Van Work Phone: [facility] 03-22-2023 01:40-0400 Systolic blood pressure 123 mm[Hg] ROCK LOADER-C Danuta Van Work Phone: [facility] Encounters Encounter Date Encounter Type Care Provider Facility Start: 08-08-2023 End: 08-08-2023 ambulatory JOEL NOE Facility:[facility] Start: 08-01-2023 End: 08-01-2023 ambulatory [facility] Start: 07-09-2023 End: 07-09-2023 ambulatory [facility] Start: 07-03-2023 ambulatory Keshav Arrington Facility:[facility] Start: 07-03-2023 End: 07-03-2023 ambulatory ROCK LOADER-C Danuta Diana Reedmer Work Phone: [facility] Work Phone: Start: 07-03-2023 End: 07-03-2023 Registered Recurring ROCK LOADER-C Danuta Araujo Work Phone: [facility] Work Phone: Start: 06-12-2023 End: 06-12-2023 ambulatory Danuta Araujo Facility:[facility] Start: 06-12-2023 End: 06-12-2023 Admission to same day surgery center ROCK LOADER-C Danuta Araujo Work Phone: [facility] [place] Work Phone: Start: 06-12-2023 End: 06-12-2023 ambulatory ROCK LOADER-C Danuta Araujo Work Phone: [facility] Work Phone: Start: 06-10-2023 End: 06-10-2023 ambulatory [facility] Start: 05-31-2023 ambulatory Jeannie brantley APRN.SYSTEM SUPPORT SPECIALIST Work Phone: Gastroenterology Comment on above: Liver Biospy Start: 05-30-2023 End: 05-30-2023 ambulatory ROCK LOADER-C Danuta Araujo Work Phone: [facility] Work Phone: Start: 05-30-2023 End: 05-30-2023 Registered Recurring ROCK LOADER-C Danuta Araujo Work Phone: [facility] Work Phone: Start: 05-23-2023 End: 05-23-2023 ambulatory ARSH OROZCO Facility:[facility] Start: 05-23-2023 End: 05-23-2023 Patient encounter procedure Arsh Orozco MD Work Phone: Neurology Comment on above: Burning sensation (P rimary Dx); Disturbance of skin sensation Start: 05-14-2023 End: 05-14-2023 ambulatory JEANNIE JARVIS Facility:[facility] Start: 05-14-2023 End: 05-14-2023 ambulatory Jeannie Jarvis METAL CASTING TRADES WORKER.SYSTEM SUPPORT SPECIALIST Work Phone: Gastroenterology Comment on above: Advanced hepatic fib rosis (Primary Dx) Start: 05-14-2023 End: 05-14-2023 Telemedicine consultation with patient Jeannie Jarvis APRN.SYSTEM SUPPORT SPECIALIST Work Phone: [facility] Start: 05-08-2023 End: 05-08-2023 ambulatory MARTHA [facility] Start: 05-06-2023 End: 05-07-2023 ambulatory Zane Ortez MD Facility:[facility] Start: 04-17-2023 End: 04-18-2023 ambulatory HAVEN NIÑO CNP Facility:[facility] Start: 04-12-2023 End: 04-13-2023 ambulatory JEANNIE JARVIS Facility:[facility] Start: 04-11-2023 Telephone encounter Mary Cagle (Pss) Gastroenterology Comment on above: Appointment Start: 03-27-2023 End: 04-03-2023 Evaluation and management of inpatient Marc Giron Facility:[facility] Start: 03-27-2023 End: 04-03-2023 Evaluation and management of inpatient ROCK LOADER-C Danuta Araujo Work Phone: [facility] Work Phone: Start: 03-22-2023 End: 03-23-2023 ambulatory Millie Mcdonald Facility:[facility] Start: 03-22-2023 End: 03-22-2023 Patient encounter procedure Millie Mcdonald [facility] Start: 03-22-2023 End: 03-27-2023 Evaluation and management of inpatient Parveencindi Mejiaod Facility:[facility] Start: 03-22-2023 End: 03-27-2023 Evaluation and management of inpatient ROCK LOADER-C Danuta Araujo Work Phone: [facility] Work Phone: Start: 01-28-2023 Emergency department patient visit Facility:[facility] Start: 10-18-2022 End: 10-19-2022 ambulatory DANUTA ARAUJO Facility:[facility] Start: 10-15-2022 ambulatory DANUTAGARY REEDMER Facility: [facility] Start: 09-27-2022 End: 09-27-2022 ambulatory DANUTA VAN Facility:[facility] Start: 09-20-2022 End: 09-21-2022 ambulatory DANUTA VAN Facility:[facility] Start: 09-19-2022 End: 09-20-2022 ambulatory DANUTAGARY ARAUJO Facility:[facility] Start: 09-13-2022 End: 09-13-2022 ambulatory DANUTAGARY ARAUJO Facility:[facility] Start: 08-30-2022 End: 08-30-2022 ambulatory DANUTA VAN Facility:[facility] Start: 08-22-2022 End: 08-22-2022 ambulatory DAVE GAMBOAEY . Facility:[facility] Start: 06-05-2022 End: 06-05-[address] DAVE SCHWARZT . Facility:[facility] Start: 11-06-2021 End: 11-07-2021 ambulatory KLARISSA CHAMBERS Facility:[facility] Start: 11-10-2020 End: 11-11-2020 [facility] Start: 11-10-2020 End: 11-10-2020 Subsequent hospital visit by physician Haven Niño [employer] CA[employer]ING TRADES WORKER - SYSTEM SUPPORT SPECIALIST Work Phone: [facility] Start: 04-06-2020 End: 04-07-2020 ambulatory KALIA EVA [facility] Start: 04-06-2020 End: 04-06-2020 Subsequent hospital visit by physician Haven [facility] Procedures Date Procedure Procedure Detail Performing Clinician Start: 06-12-2023 Bone marrow sampling [employer]ER -C Danuta Araujo Work Phone: Start: 04-01-2023 MRI of cervical spin e with contrast [employer] LO[employer]ER-C Danuta Araujo Work Phone: Start: 04-01-2023 Duplex scan of lower limb veins R[employer] LO[employer]ER-C Danuta Araujo Work Phone: Start: 03-23-2023 Ultrasonography of abdomen [employer] LO[employer]ER-C Danuta Araujo Work Phone: Start: 03-22-2023 XR pre/post mri xray ROCK LOADER -Mikel Araujo Work Phone: Start: 03-22-2023 MRI of lumbar spine with contrast ROCK LOADER-Mikel Araujo Work Phone: Start: 03-22-2023 MRI of head ROCK LOADER-C Skip Araujo Work Phone: Start: 03-21-2023 CT of head without contrast ROCK LOADER-C Danuta Araujo Work Phone: Start: 03-21-2023 Plain chest X-ray R[employer] LOADER-C Danuta Araujo Work Phone: Start: 03-21-2023 Aerobic microbial culture ROCK LOADER-Mikel Araujo Work Phone: Start: 03-21-2023 Anaerobic microbial culture ROCK LO[employer]ER-C Danuta Araujo Work Phone: Start: 03-21-2023 Blood culture for ba cteria, including anaerobic screen ROCK LOADER-Mikel Araujo Work Phone: Start: 03-21-2023 CSF (PCR) ROCK LOADER-C Skip Araujo Work Phone: Start: 03-21-2023 Investigation of tra nsfusion reaction ROCK LOADER-Mikel Araujo Work Phone: Start: 03-21-2023 Urine culture ROCK LOADER-C Isidra Harper Work Phone: Start: 11-10-2020 Gonadotropin chorion ic quantitative Massimo Amilcar Brgiht MD Work Phone: Start: 11-10-2020 Hepatic function panel Kalia Bender METAL CASTING TRADES WORKER - SYSTEM SUPPORT SPECIALIST Work Phone: Start: 04-06-2020 Antibody hiv-1&hiv-2 single [...] DTaP,Tdap,Td Vaccine (8 - Td or Tdap) [facility] Start: 11-13-2023 End: 02-12-2024 CBC W Auto Differential panel - Blood CBC + DIFF Lab Routine Advanced hepatic fibrosis Expected: 11/13/2023 (Approximate), Expires: 02/12/2024 [facility] Work Phone: Comment on above: Expected: 11/13/2023 (Approximate), Expires: 02/12/2024 Start: 11-13-2023 End: 02-12-2024 Comprehensive metabolic 2000 panel - Serum or Plasma COMP METABOLIC PANEL Lab Routine Advanced hepatic fibrosis Expected: 11/13/2023 (Approximate), Expires: 02/12/2024 [facility] Work Phone: Comment on above: Expected: 11/13/2023 (Approximate), Expires: 02/12/2024 Start: 11-13-2023 End: 02-12-2024 PT panel - Platelet poor plasma by Coagulation assay PROTHROMBIN TIME/PT Lab Routine Advanced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 Jeannie Jarvis APRN.CNP Diagnosis: Fatty liver/ elevated liver enzymes Please [...] of stage 4 fibrosis (cirrhosis). Jeannie Jarvis APRN.CNP NAFLD Fibroscan Fibrosis Risk <7 kPA = [...] Int J Clin Exp Med. 2015 Apr 15;8(10):58976-00. PMID: 55147041; PMCID: [id number]. Harper M, Jameson NEETU, Mariamar-Ilene M, Sung F, Ranjeet J, Ric O, Cathryn F, Manuel M, Edin G, Chrissy A, Troy E, Vamsi L, Tushar G, Wilmer A, Antonia U, Arellano S, Delia P, Wilmero V, de Song V, Chen M, Gurjit VALENCIA. Refining the Baveno elastography criteria for the definition of compensated advanced chronic liver disease. J Hepatol. 2020;74(5):5509-0762. doi: 10.1016/j.jhep.2020.11.050. Epub 2019Jun 29. PMID: 07308710.[facility]09-22-2023 NoteHNO ID: [id number] Author: Jeannie Jarvis APRN.SYSTEM SUPPORT SPECIALIST Service: ? Author Type: Nurse Practitioner Type: [...] ascites, episodes of confusion. IMAGING/PROCEDURES: ABD US 9/1/23: No past surgical history on file. No [...] Date Value 01/28/2023 75 (more content not included)...[facility]09-21-2023 Miscellaneous Notes* Telephone Encounter - Clem, Mary N - 04/11/2023 2:48 PM EDT Called Rica Stout to remind them of an appointment with Jeannie Jarvis on 04/12/23. Left Message for patient. documented in this [facility]23 Discharge summary Author Marc Giron [facility] April 03, 2023 12:45pm Note Date/Time April 03, 2023 11:02am [facility] [address] [place] [address] Discharge Summary Signed Patient: Rica Stout MR#: [id number] : 1995 Acct:[id number] Age/Sex: 27 / F Adm Date: 3 Loc: Room: [address] [place] [address]: Marc Giron MD Copies to: MD Danuta Hernandez CNP~ Providers Date of Discharge: 04/03/23 Discharging Provider: Marc Giron Primary Care Provider: Danuta Araujo Consults: [...] them to places.? The patient lives in [facility] home with 2 steps to get into the door.? Patient states she has been having to crawl up the stairs because she does not have the strength to walk up them.? Patient previously worked at a [email or web address], but had to quit her job earlier [...] her liver issues. She will establish with [facility] gastroenterology at discharge. She also had a [...] Physical Therapy at [facility] (Address: [address] [place] [address] , [place], [place]/ ext. 0426). The order for this has already been [...] 1 mg PO QAM Other Ambulatory Orders: [facility] (Routine) Timeframe: 20230401 Location: Determined by Patient Ordered By: Marc Giron Follow Up: Jeannie Jarvis NP [Other] - 04/12/23 (Liver Specialist ) Keshav Arrington DO [Courtesy/Consulting Physician] - 04/11/23 1:40 pm (Appointment will be with DEBORAH Lynch) Marc Giron MD [Active Staff] - (Rehab physician. Follow up as/if needed.) Danuta Araujo NP-C [Primary Care Provider] - 04/11/23 3:00 pm Documented By: Marc Giron MD 04/03/23 1102 Signed By: <Electronically signed by Marc Giron MD> 04/03/23 1245 [facility] Work Phone: 1(767) 527-824409-12-2023 Progress note Author Marc Giron [facility] April 02, 2023 12:01pm Note Date/Time April 02, 2023 9:14am [facility] [address] [place] [address] Physiatry(Rehab) Progress Note Signed Patient: Rica Stout MR#: [id number] : 1995 Acct:[id number] Age/Sex: 27 / F Adm Date: 3 Loc: 5T Room: 4R7095-0 Type: ADM IN Attending Dr: Marc Giron [...] them to places.? The patient lives in [facility] home with 2 steps to get into the door.? Patient states she has been having to crawl up the stairs because she does not have the strength to walk up them.? Patient previously worked at a [email or web address], but had to quit her job earlier [...] 16 120/85 98 Room Air 04/02/23 06:25 04/02/23 06:25 04/02/23 06:25 04/02/23 [...] mg 03/27/23 14:46 Bisacodyl 10 Mg Supp.Rect WY 03/26/24 14:45 DAILY PRN Constipation Diclofenac Sodium 2 gm 03/30/23 09:00 04/01/23 21:22 Diclofenac Sodium 1% Gel 50 Gm Tube TOPICAL 03/29/24 08:59 2 gm TID ROXANNE Administration Docusate Sodium 100 mg 03/27/23 14:46 Docusate 100 Mg Capsule PO 03/26/24 14:45 BID PRN Constipation Docusate Sodium 283 mg 03/27/23 14:46 Docusate Enema 283 Mg/5 Ml Enema WY 03/26/24 14:45 DAILY PRN Constipation Enoxaparin Sodium [...] equipment? to enhance the patient's a functional oriental orthodox Encourage deep breathing exercises and incentive spirometry RD evaluation Ensure adequate nutrition and hydration Discharge planning. Updates/Medical Issues -Appreciate Neurology f/u. Feel neuropathy is likely metabolic in nature possibly related to liver issues. ---Will establish with [facility] Gastro, also recommended evaluation by [facility] Neurology. -MR cervical spine and venous [...] Allied health note review, nursing note review, risk management consultant note review, discussion with nursing and case management, and more than 50% of my time was spent on counseling and coordination of care, time spent 25 minutes ? Patient was personally seen by me, Dr. Giron, on the day of encounter, I reviewed the history and the relevant portions of the chart, including current orders, allied health and risk management consultant notes, labs/imaging and performed wren elements of exam and I formulated the plan of care and facilitated the medical decision making. Documented By: Marc Giron MD 04/02/23 0914 Signed By: <Electronically signed by Marc Giron MD> 04/02/23 1201 [facility] Work Phone: 1(340) 154-917709-11-2023 Progress note Author David Ramirezct [facility] April 01, 2023 3:01pm Note Date/Time April 01, 2023 2:58pm [facility] [address] [place] [address] Neurology Progress Note Signed Patient: Rica Stout MR#: [id number] : 1995 Acct:[id number] Age/Sex: 27 / F Adm Date: 3 Loc: Room: [address] [place] [address] Type: ADM IN Attending Dr: Marc Giron [...] options The patient should be scheduled with shipping receiving manager as outpatient for further treatment of underlying liver dysfunction The patient can follow-up in the adult outpatient neurology clinic with Dr. Arrington We will continue to follow with supportive therapy. I discussed the case with Dr. Giron Code(s): G62.9 - Polyneuropathy, unspecified Status: Acute Documented By: David Chowdary MD 04/01/23 7216 Signed By: <Electronically signed by MD David Chowdary> 04/01/23 1501 [facility] Work Phone: 1(598) 392-348209-11-2023 Progress note Author Marc Giron [facility] April 01, 2023 11:55am Note Date/Time April 01, 2023 10:18am [facility] [address] [place] [address] Physiatry(Rehab) Progress Note Signed Patient: Rica Stout MR#: [id number] : 1995 Acct:[id number] Age/Sex: 27 / F Adm Date: 3 Loc: Room: [address] [place] [address] Type: ADM IN Attending Dr: Marc Giron [...] up them.? Patient previously worked at a [email or web address], but had to quit her job earlier [...] mg 03/27/23 14:46 Bisacodyl 10 Mg Supp.Rect WY 03/26/24 14:45 DAILY PRN Constipation Diclofenac Sodium 2 gm 03/30/23 09:00 04/01/23 08:59 Diclofenac Sodium 1% Gel 50 Gm Tube TOPICAL 03/29/24 08:59 2 gm TID ROXANNE Administration Docusate Sodium 100 mg 03/27/23 14:46 Docusate 100 Mg Capsule PO 03/26/24 14:45 BID PRN Constipation Docusate Sodium 283 mg 03/27/23 14:46 Docusate Enema 283 Mg/5 Ml Enema WY 03/26/24 14:45 DAILY PRN Constipation Enoxaparin Sodium [...] equipment? to enhance the patient's a functional oriental orthodox Encourage deep breathing exercises and incentive spirometry [...] Allied health note review, nursing note review, risk management consultant note review, discussion with nursing and case management, and more than 50% of my time was spent on counseling and coordination of care, time spent 25 minutes ? Patient was personally seen by me, Dr. Giron, on the day of encounter, I reviewed the history and the relevant portions of the chart, including current orders, allied health and risk management consultant notes, labs/imaging and performed wren elements of exam and I formulated the plan of care and facilitated the medical decision making. Documented By: Marc Giron MD 04/01/23 1017 Signed By: <Electronically signed by Marc Giron MD> 04/01/23 6909 [facility] Work Phone: 1(885) 893-291709-09-2023 Consult note Author Davdi Chowdary [facility] March 30, 2023 1:15pm Note Date/Time March 30, 2023 1:13pm [facility] [address] [place] [address] Neurology Consult Note Signed Patient: Rica Stout MR#: [id number] : 1995 Acct:[id number] Age/Sex: 27 / F Adm Date: 3 Loc: Room: [address] [place] [address] Type: ADM IN Attending Dr: Marc Giron MD Copies to: MD Danuta Hernandez, SYSTEM SUPPORT SPECIALIST David Chowdary MD~ HPI Consult Date: 03/30/23 Institutional Research Coordinator: David Chowdary MD Reason for consult: Polyneuropathy [...] negative unless noted below or in HPI [facility] Medical History Hyperammonemia No pertinent past medical [...] by MD David Chowdary> 03/30/23 1315 [facility] Work Phone: 1([phone]) 341-705709-09-2023 Progress note Author Marc Giron [facility] March 30, 2023 11:43am Note Date/Time March 30, 2023 11:43am [facility] [address] [place] [address] Physiatry(Rehab) Progress Note Signed Patient: Rica Stout MR#: [id number] : 1995 Acct:[id number] Age/Sex: 27 / F Adm Date: 3 Loc: Room: [address] [place] [address] Type: ADM IN Attending Dr: Marc Giron [...] walk up them.? Patient previously worked at [employer] but had to quit her job earlier [...] mg 03/27/23 14:46 Bisacodyl 10 Mg Supp.Rect WY 03/26/24 14:45 DAILY PRN Constipation Diclofenac Sodium 2 gm 03/30/23 09:00 03/30/23 09:53 Diclofenac Sodium 1% Gel 50 Gm Tube TOPICAL 03/29/24 08:59 2 gm TID ROXANNE Administration Docusate Sodium 100 mg 03/27/23 14:46 Docusate 100 Mg Capsule PO 03/26/24 14:45 BID PRN Constipation Docusate Sodium 283 mg 03/27/23 14:46 Docusate Enema 283 Mg/5 Ml Enema WY 03/26/24 14:45 DAILY PRN Constipation Enoxaparin Sodium [...] 03/30/23 08:13 Thiamine 100 Mg Tablet PO 09/06/24 08:59 100 mg QAM ROXANNE Administration Trazodone [...] equipment? to enhance the patient's a functional oriental orthodox Encourage deep breathing exercises and incentive spirometry [...] Allied health note review, nursing note review, risk management consultant note review, discussion with nursing and case management, and more than 50% of my time was spent on counseling and coordination of care, time spent 25 minutes ? Patient was personally seen by me, Dr. Giron, on the day of encounter, I reviewed the history and the relevant portions of the chart, including current orders, allied health and risk management consultant notes, labs/imaging and performed wren elements of exam and I formulated the plan of care and facilitated the medical decision making. Documented By: Marc Giron MD 03/30/23 1137 Signed By: <Electronically signed by Marc Giron MD> 03/30/23 1143 [facility] Work Phone: [phone]) 614-734809-07-2023 History and physical note Author Jamil Salazar [facility] March 28, 2023 1:36pm Note Date/Time March 28, 2023 9:14am [facility] [address] [place] [address] Physiatry (Rehab) H&P Signed Patient: Rica Stout MR#: [id number] : 1995 Acct:[id number] Age/Sex: 27 / F Adm Date: 3 Loc: Room: [address] [place] [address] Type: ADM IN Attending Dr: Marc Giron MD Copies to: MD Marc Carty MD Kyle Denihan, DO,RES Danuta Araujo, SYSTEM SUPPORT SPECIALIST~ <Chip Lemus DO, RES - Last Filed: [...] up them. Patient previously worked at a [email or web address], but had to quit her job earlier [...] Bisacodyl (Bisacodyl 10 Mg Supp.Rect) 10 mg WY DAILY PRN PRN Reason: Constipation Stop: 03/26/24 14:45 Docusate Sodium (Docusate 100 Mg Capsule) 100 mg PO BID PRN PRN Reason: Constipation Stop: 03/26/24 14:45 Docusate Sodium (Docusate Enema 283 Mg/5 Ml Enema) 283 mg WY DAILY PRN PRN Reason: Constipation Stop: 03/26/24 14:45 Enoxaparin Sodium (Enoxaparin 40 Mg/0.4 Ml Syringe) 40 mg SUBCUT DAILY@1000 [facility] Stop: 03/27/24 09:59 Folic Acid (Folic Acid 1 Mg Tablet) 1 mg PO QAM [facility] Stop: 03/27/24 08:59 Gabapentin (Gabapentin 100 Mg Capsule) 100 mg PO TID [facility] Stop: 03/26/24 21:59 Last Admin: 03/27/23 21:06 Dose: 100 mg Lactulose (Lactulose 20 Gm/30 Ml Udc) 30 gm PO DAILY PRN PRN Reason: Constipation Stop: 03/26/24 14:45 Lactulose (Lactulose 20 Gm/30 Ml Udc) 10 gm PO QAM [facility] Stop: 03/27/24 08:59 Magnesium Oxide (Magnesium Oxide 400 Mg Tablet) 200 mg PO QAM [facility] Stop: 03/27/24 08:59 Potassium Chloride (Potassium Chloride Er 20 Meq Tab.Er.Prt) 20 meq PO BID [facility] Stop: 03/26/24 20:59 Last Admin: 03/27/23 21:06 Dose: 20 meq Sennosides (Sennosides 8.6 Mg Tablet) 2 tab PO DAILY@12 PRN PRN Reason: If no BM in 2 days Stop: 03/27/24 11:59 Sodium Chloride (Sodium Chloride 0.9 % 10 Ml Syringe) 0 ml IV-PUSH PRN PRN PRN Reason: Flush Stop: 03/26/24 14:45 Thiamine HCl (Thiamine 100 Mg Tablet) 100 mg PO QAM [facility] Stop: 03/27/24 08:59 Tramadol HCl (Tramadol 50 [...] up the lower extremities. She has 4/[address] strength in her hands bilaterally with pain [...] % (Auto) 55.2 Lymph % (Auto) 30.9 [place] % (Auto) 7.5 Eos % (Auto) 5.0 Baso % (Auto) 1.4 Nucleat RBC Rel Count 0.2 Neut # (Auto) 3.7 Lymph # (Auto) 2.1 [place] # (Auto) 0.5 Eos # (Auto) 0.3 [...] 24 hour daily monitoring and intervention from Coding Coordinator as well as other consulting physicians including internal medicine as well as 24 hour daily mergers and acquisitions attorney nursing - for medical safe / optimal [...] equipment to enhance the patient's a functional oriental orthodox Encourage deep breathing exercises and incentive spirometry [...] Allied health note review, nursing note review, risk management consultant note review, discussion with nursing and case management, and more than 50% of my time was spent on counseling and coordination of care, time spent 70 minutes Patient was personally seen by me, Dr. Salazar, on the day of encounter, within 24 hours of rehab admission, reviewed the history and the relevant portions of the chart, including current orders, allied health and risk management consultant notes, labs/imaging and performed wren elements [...] Continue current treatment. Documented By: Chip Lemus DO, RES 03/28/23 091 2 Signed By: <Electronically signed by DO SYLVESTER Lemus> 03/28/23 1104 <Electronically signed by Jamil Salazar MD> 03/28/23 0226 [facility] Work Phone: 1(866) 937-758809-06-2023 Progress note Author Marc Giron [facility] March 27, 2023 10:24am Note Date/Time March 27, 2023 10:25am [facility] [address] [place] [address] Physiatry(Rehab) Progress Note Signed Patient: Rica Stout MR#: [id number] : 1995 Acct:[id number] Age/Sex: 27 / F Adm Date: 3 Loc: 4N Room: [address] [place] [address] Type: ADM IN Attending Dr: Brianne Umanzor [...] 3.1 Globulin (PEP) 2.8 Albumin/Globulin (PEP) 1.1 Mxlhx-8-Kgbwmbxzk 0.2 Sfyhh-1-Uxfyalhwj 0.7 Beta Globulins 0.9 Gamma Globulins 1.1 M-Tomas Not observed PEP Note Alpha-Tocopherol Vit E 10.9 Gamma-Tocopherol Vit E 1.9 CSF/Ser Oligoclonal Inter IgG 1046 IgA 485 H IgM 343 H Serum Immunofixation PAT Profile Negative Medications and Allergies Allergies and Active Meds: Allergies Penicillins Allergy (Verified 03/21/23 19:05) Rash Active Medications Generic Name Dose Route Start Last Admin Trade Name Blakeq PRN Reason Stop Dose Admin Acetaminophen 650 [...] Allied health note review, nursing note review, risk management consultant note review, discussion with nursing and case management, and more than 50% of my time was spent on counseling and coordination of care, time spent 25 minutes Patient was personally seen by me, Dr. Giron, on the day of encounter, reviewed the history and the relevant portions of the chart, including current orders, allied health and risk management consultant notes, labs/imaging and performed wren elements of exam and I formulated the plan of care and facilitated the medical decision making. Documented By: Marc Giron MD 03/27/23 1022 Signed By: <Electronically signed by Marc Giron MD> 03/27/23 1024 [facility] Work Phone: 1(445) 981-492709-05-2023 Progress note Author Brianne Umanzor [facility] March 26, 2023 2:36pm Note Date/Time March 26, 2023 2:36pm [facility] [address] [place] [address] Hospitalist Progress Note Signed Patient: Rica Stout MR#: [id number] : 1995 Acct:[id number] Age/Sex: 27 / F Adm Date: 3 Loc: Room: [address] [place] [address] Type: ADM IN Attending Dr: Brianne Umanzor [...] <Electronically signed by Brianne Umanzor MD> 03/26/23 6276 [facility] Work Phone: 1(951) 554-895509-05-2023 Consult note Author Marc Giron [facility] March 26, 2023 12:50pm Note Date/Time March 26, 2023 9:50am [facility] [address] [place] [address] Physiatry (Rehab) Consult Note Signed Patient: Rica Stout MR#: [id number] : 1995 Acct:[id number] Age/Sex: 27 / F Adm Date: 3 Loc: 4N Room: [address] [place] [address] Type: ADM IN Attending Dr: Brianne Umanzor MD Copies to: MD Brianne Hernandez MD Pamela Sue Cramer, SYSTEM SUPPORT SPECIALIST~ Etiologic Dx/Impairment Group Narrative Narrative: Sensorimotor polyneuropathy HPI Consult Date: 03/26/23 Requesting Physician: Brianne Umanzor MD Primary Care Provider: DRAKE Deras Consult Narrative Reason for consult: Functional decline [...] negative unless noted below or in HPI [facility] Medical History Hyperammonemia No pertinent past medical [...] supervision is both reasonable and necessary, including jgqy-hi-pllf visits at least 3 days/week with the [...] Allied health note review, nursing note review, risk management consultant note review, discussion with nursing and case management, and more than 50% of my time was spent on counseling and coordination of care, time spent 65 minutes Patient was personally seen by me, Dr. Giron, on the day of encounter, reviewed the history and the relevant portions of the chart, including current orders, allied health and risk management consultant notes, labs/imaging and performed wren elements of exam and I formulated the plan of care and facilitated the medical decision making. Documented By: Marc Giron MD 03/26/23 0950 Signed By: <Electronically signed by Marc Giron MD> 03/26/23 7191 [facility] Work Phone: 1(919) 817-916209-04-2023 Progress note Author Brianne Umanzor [facility] March 25, 2023 1:31pm Note Date/Time March 25, 2023 1:31pm [facility] [address] [place] [address] Hospitalist Progress Note Signed Patient: Rica Stout MR#: [id number] : 1995 Acct:[id number] Age/Sex: 27 / F Adm Date: 3 Loc: 4N Room: 2N3086-0 Type: ADM IN Attending Dr: Brianne Umanzor [...] H 12 126/89 95 Room Air 03/25/23 11:01 03/25/23 11:01 03/25/23 11:01 03/25/23 11:01 03/25/23 11:01 03/25/23 11:01 Narrative: Const General: cooperative HEENT Normal [...] <Electronically signed by Brianne Umanzor MD> 03/25/[address] [place] [address] Work Phone: [phone]) 977-943409-03-2023 Progress note Author Brianne Umanzor [facility] March 24, 2023 12:31pm Note Date/Time March 24, 2023 12:31pm [facility] [address] [place] [address] Hospitalist Progress Note Signed Patient: Rica Stout MR#: [id number] : 1995 Acct:[id number] Age/Sex: 27 / F Adm Date: 3 Loc: 4N Room: 0A3517-1 Type: ADM IN Attending Dr: Brianne Umanzor [...] <Electronically signed by Brianne Umanzor MD> 03/24/[address] [place] [address] Ctr Work Phone: 1(822) 891-395409-03-2023 Progress note Author Loli Cheema [facility] March 24, 2023 10:52am Note Date/Time March 24, 2023 9:58am [facility] [address] [place] [address] Neurology Progress Note Signed Patient: Rica Stout MR#: [id number] : 1995 Acct:[id number] Age/Sex: 27 / F Adm Date: 3 Loc: 4N Room: [address] [place] [address] Type: ADM IN Attending Dr: Brianne Umanzor [...] of dysmetria with good rapid alternating movements [id number]-mu-[id number] Tone is physiologic Deep tendon reflexes are [...] be a hereditary sensorimotor neuropathy such as Cfmaqip-Cikae-Tntak and she will likely need some genetic [...] <Electronically signed by DO Loli Cheema> 03/24/23 4439 [facility] Ctr Work Phone: 1(969) 103-471809-02-2023 Progress note Author Brianne Umanzor [facility] March 23, 2023 1:49pm Note Date/Time March 23, 2023 1:49pm [facility] [address] [place] [address] Hospitalist Progress Note Signed Patient: Rica Stout MR#: [id number] : 1995 Acct:[id number] Age/Sex: 27 / F Adm Date: 3 Loc: 4N Room: 0U4314-4 Type: ADM IN Attending Dr: Brianne Umanzor [...] Air 03/23/23 11:23 03/23/23 11:23 03/23/23 11:03/23/23 11:23 03/23/23 11:03/23/23 08:00 Narrative: Const General: cooperative HEENT [...] Dose Route Start Last Admin Trade Name Blakeq PRN Reason Stop Dose Admin Acetaminophen 650 [...] <Electronically signed by Brianne Umanzor MD> 03/23/23 6074 [facility] Work Phone: 1(963) 981-222009-02-2023 Progress note Author Loli Cheema [facility] March 23, 2023 12:13pm Note Date/Time March 23, 2023 11:07am [facility] [address] [place] [address] Neurology Progress Note Signed Patient: Rica Stout MR#: [id number] : 1995 Acct:[id number] Age/Sex: 27 / F Adm Date: 3 Loc: Room: [address] [place] [address] Type: ADM IN Attending Dr: Brianne Umanzor [...] of dysmetria with good rapid alternating movements [id number]-yg-rtem Tone is physiologic Deep tendon reflexes are [...] be a hereditary sensorimotor neuropathy such as Ibghrti-Bccax-Wsyle and she will likely need some genetic [...] <Electronically signed by DO Loli Cheema> 03/23/23 [facility]3 [facility] Ctr Work Phone: 1(977) 730-980409-01-2023 Consult note Author Chele Gamino [facility] March 22, 2023 3:54pm Note Date/Time March 22, 2023 1:28pm [facility] [address] [place] [address] Neurology Consult Note Signed Patient: Rica Stout MR#: [id number] : 1995 Acct:[id number] Age/Sex: 27 / F Adm Date: 3 Loc: 4 Room: [address] [place] [address] Type: ADM IN Attending Dr: Brianne Umanzor MD Copies to: DO Brianne Stevenson MD Pamela Sue Cramer, SYSTEM SUPPORT SPECIALIST~ HPI Consult Date: 03/22/23 Institutional Research Coordinator: Chele Gamino DO [facility] Medical History (Updated 03/22/23 @ 01:53 by [...] Dave Clark M.D.03/22/2023 8:07 AM Dictation Location: [place] [address] 03/21/23 21:23 IMPRESSION: Unremarkable exam Impression dictated by: Dave Clark M.D.03/22/2023 8:08 AM Dictation Location: [place] [address] Assessment/Plan (1) Weakness of distal arms and [...] supposed to have an appointment with a shipping receiving manager today to figure out what to do [...] had to quit her job at a [email or web address] because it was too much time on [...] <Electronically signed by Chele Gamino DO> 03/22/23 8597 [facility] Ctr Work Phone: 1(736) 636-469509-01-2023 Progress note Author Brianne Umanzor [facility] March 22, 2023 12:53pm Note Date/Time March 22, 2023 12:52pm [facility] [address] [place] [address] Progress Note Signed Patient: Rica Stout MR#: [id number] : 1995 Acct:[id number] Age/Sex: 27 / F Adm Date: 3 Loc: 4N Room: 0V3310-0 Type: ADM IN Attending Dr: Brianne Umanzor [...] <Electronically signed by Brianne Umanzor MD> 03/22/[address] [place] [address] Ctr Work Phone: 1(517) 495-702209-01-2023 History and physical note Author Parveen Keller [facility] March 22, 2023 7:30am Note Date/Time March 22, 2023 1:25am [facility] [address] [place] [address] Hospitalist H&P Signed Patient: Rica Stout MR#: [id number] : 1995 Acct:[id number] Age/Sex: 27 / F Adm Date: 3 Loc: 4N Room: 7D5305-3 Type: ADM IN Attending Dr: Parveen Keller MD Copies to: MD Danuta Toscano, ANDREA Rico, HODAN~ HPI DATE OF EXAMINATION: 03/22/23 CHIEF COMPLAINT: [...] also reports pitting edema to BLE, 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 She saw [...] She has had testing done at the [facility] where they foundher liver enzymes were [...] bolus. [facility] the care of thehospitalist team for further evaluation and treatment. Review of Systems Review of Systems Review of systems: A 10 point review of systems was obtained, negative unless noted in the HPI or below. PMFSH Medical History (Updated 03/22/23 @ 01:53 by [...] % (Auto) 29.7 % (.) 03/21/23 19:15 [place] % (Auto) 7.6 % (.) 03/21/23 19:15 Eos % (Auto) 2.7 % (.) 03/21/23 19:15 Baso % (Auto) 1.6 % (.) 03/21/23 19:15 Nucleat RBC Rel Count 0.1 /100 WBC (0-0.5) 03/21/23 19:15 Neut # (Auto) 4.2 x10E3/uL (1.8-7.7) 03/21/23 19:15 Lymph # (Auto) 2.1 x10E3/uL (1.00-4.8) 03/21/23 19:15 [place] # (Auto) 0.5 x10E3/uL (0.0-0.8) 03/21/23 19:15 [...] pH 5.0 (5.0-9.0) 03/21/23 19:25 Ur Specific [place] 1.019 (1.001-1.030) 03/21/23 19:25 Urine Protein Trace [...] CSF Neutrophils N/A 03/21/23 23:50 CSF Neutrophils Airport Skilled Maintenance Supervisor 03/21/23 23:50 CSF Lymphocytes N/A 03/21/23 23:50 [...] the plan of care and confirmed the SYSTEM SUPPORT SPECIALIST's written note. Documented By: Yoana Rico APRN 03/22/23 0125 Signed By: <Electronically signed by HODAN Rico> 03/22/23 0207 <Electronically signed by Parveen Keller MD> 03/22/23 0730 [facility] Work Phone: Consult note Author Jane Tracey [facility] May 30, 2023 3:16pm Note Date/Time May 30, 2023 2 :16pm [facility] [place] [address] Hem/Onc Consult Note - OP Signed Patient: Rica Stout MR#: [id number] : 1995 Acct:[id number] Age/Sex: 27 / F Type: REG RCR Copies to: Keshav Arrington, DO Danuta Araujo, ANDREA Goodman, HODAN-OTHER SALES SUPPORT WORKER-C~ HPI Date/Time of Service: Date of Service: 05/30/2023 Time of Service: 14:14 Referring Provider/PCP: Referring Provider: Keshav Arrington DO PCP: Danuta Araujo NP-C - History of Present Illness Reason for [...] it was minimally effective. She also saw [facility] neurologist 05/22/23 but we do not [...] with and without contrast was done at [facility] on 03/27/2023 revealed no cord compression or abnormal postcontrast enhancement. No significant spinal canal narrowing or neural foraminal narrowing. MRI of the lumbar spine with without contrast on 03/22/2023 revealed mild degenerative changes without significant spinal canal or neuroforaminal narrowing. It did reveal broad based disc bulges at T12-L1 and L1-L2. But no masses or abnormal postcontrast enhancement. Abdominal ultrasound at [facility] on 03/22/2023 revealed a prominent liver suspicious [...] was 58 which were normal. She saw [facility] GI who recommended liver biopsy but then decided to follow observation for now for 6 months. 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 Her Lipids were very high as well. She also has hypopigmented skin spots on both arms since March 2023, saw dermatology at [facility] who performed a skin biopsy but told her what sounds she has vascular insufficiency but no reports were available to us as well. She has not been using folic acid or thiamin since they ran out beginning of April 2023. She is wearing [address] recording monitor currently due to history of tachycardia and she has been using magnesium and atenolol for that. She liver in an old house that has molds, mice and not sure if it has lead as well. 14 points systems were reviewed and are negative. [facility] - Medical History Medical History: Medical History [...] the reports from the skin biopsy, the [facility] dermatology note, and the [facility] neurology note. -Return in 4 weeks [...] December 2018. She saw GI at the clinic clinic who recommended transjugular liver biopsy which [...] etiology but she saw dermatology at the [facility] who performed a skin biopsy and the report of the skin biopsy is not available to us however she was told by dermatology there that she has vascular insufficiency causing the rash. -We will try to obtain the reports from the skin biopsy and dermatology note from [facility] dermatology. - Time with Patient Total Time Spent with Patient (Consult): 60 mins or more Coordination of Care & Counseling Time: Greater than 50% of time spent with patient was for coordination of care (as documented) and urxm-xd-dkhg counseling of patient and/or family. Dictated By: Jane Tracey MD DD/ 1414 Signed By: <Electronically signed by Jane Tracey MD> 05/30/23 1516 [facility] Work Phone: Discharge summary Author Brianne Umanzor [facility] March 27, 2023 2:45pm Note Date/Time March 27, 2023 2:38pm [facility] [address] [place] [address] Discharge Summary Signed Patient: Rica Stout MR#: [id number] : 1995 Acct:[id number] Age/Sex: 27 / F Adm Date: 3 Loc: 4N Room: [address] [place] [address]: Brianne Umanzor MD Copies to: MD Danuta Hdz CNP~ Providers Date of Discharge: 03/27/23 Discharging Provider: [...] GBS. She was found to have low [id number] and given once time dose here. Also [...] Discharge Plan Discharge Plan Patient Dis[facility] [facility] Activity: Ambulate as Tolerated Diet: Regular Additional [...] PO QAM Follow Up: [facility] [place] [Outside] (Please call to schedule an appointment when discharged from Rehab.) Documented By: Brianne Umanzor MD 03/27/23 14 37 Signed By: <Electronically signed by Brianne Umanzor MD> 03/27/23 1445 [facility] Work Phone: Evaluation + Plan note No data available for this section [facility] Evaluation note* Diagnosis Onset Date Resolution Status Bilateral leg paresthesia ac levelock History of ETOH abuse acute Hx of drug abuse acute Hypomagnesemia acute Hypophosphatemia acute Paresthesia of upper extremity acute Poor appetite acute Transaminitis acute UTI (urinary tract infection) acute Weakness acute Weakness of distal arms and legs acute Weight loss acute [facility] Work Phone: Evaluation note* Diagnosis Onset Date Resolution Status Bilateral leg paresthesia ac levelock History of ETOH abuse acute Hx of drug abuse acute Hypomagnesemia acute Hypophosphatemia acute Paresthesia of upper extremity acute Poor appetite acute Sensorimotor neuropathy acut e Transaminitis acute UTI (urinary tract infection) acute Weakness acute Weakness of distal arms and legs acute Weight loss acute [facility] Work Phone: Evaluation note* Diagnosis Onset Date Resolution Status Bilateral leg paresthesia ac levelock History of ETOH abuse acute Hx of drug abuse acute Hypomagnesemia acute Hypophosphatemia acute Paresthesia of upper extremity acute Poor appetite acute Sensorimotor neuropathy acut e Transaminitis acute UTI (urinary tract infection) acute Weakness acute Weakness of distal arms and legs acute Weight loss acute Bilateral leg paresthesia ac levelock Folate deficiency acute History of ETOH abuse acute Hx of drug abuse acute Hypomagnesemia acute Hypophosphatemia acute Impaired mobility and ADLs a cute Sensorimotor neuropathy acut e Transaminitis acute UTI (urinary tract infection) acute Weakness acute Weakness of distal arms and legs acute [facility] Work Phone: Evaluation note* Diagnosis Burning sensation- Primary Disturbance of skin sensation Disturbance of skin sensation [facility] [place] Diagnosis Advanced hepatic fibrosis- Primary [facility] [place] [facility]* Diagnosis Onset Date Resolution Status Bilateral leg paresthesia ac levelock History of ETOH abuse acute Hx of drug abuse acute Hypomagnesemia acute Hypophosphatemia acute Paresthesia of upper extremity acute Poor appetite acute Sensorimotor neuropathy acut e Transaminitis acute UTI (urinary tract infection) acute Weakness acute Weakness of distal arms and legs acute Weight loss acute Bilateral leg paresthesia ac levelock Folate deficiency acute History of ETOH abuse acute Hx of drug abuse acute Hypomagnesemia acute Hypophosphatemia acute Impaired mobility and ADLs a cute Sensorimotor neuropathy acut e Transaminitis acute UTI (urinary tract infection) acute Weakness acute Weakness of distal arms and legs acute Elevated immunoglobulin A ac levelock Multiple hypopigmented skin lesions on both forearms acute 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 acute [facility] Work Phone: Evaluation note* Diagnosis Advanced hepatic fibrosis- Primary [facility] [place] [facility]* Diagnosis Onset Date Resolution Status Elevated immunoglobulin A ac levelock Multiple hypopigmented skin lesions on both forearms acute 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 No driving until cleared by physician, may ride in car. -Diet: Regular diet. You will have Outpatient Physical Therapy at Rehab Services at [facility] (Address: [address] [place] [address] Dr. [place], [place]/ ext. 5741). The order for this has already been [...] office to inform them prior to your appointment.[facility] Work Phone: Progress note No data available for this section [facility] Advance Directives No Advanced Directives Records FoundDocuments on File Type Date Recorded Patient Exchange Administrator Expl anation ACP-Advance Directive ACP-Power of Field Service Technician Advance Directive Response Recorded Date/ Time Advance [...] CREATED AUTHOR AUTHOR'S ORGANIZ ATION 10/27/2022 [facility] DATE CREATED AUTHOR AUTHOR'S ORGANIZ ATION 02/01/2023 [facility] DATE CREATED AUTHOR AUTHOR'S ORGANIZ ATION 05/13/2023 [facility] DATE CREATED AUTHOR AUTHOR'S ORGANIZ ATION 07/08/2023 [facility] DATE CREATED AUTHOR AUTHOR'S ORGANIZ ATION 07/17/2023 [facility] DATE CREATED AUTHOR AUTHOR'S ORGANIZ ATION 07/20/2023 [facility] DATE CREATED AUTHOR AUTHOR'S ORGANIZ ATION 08/04/2023 [facility] DATE CREATED AUTHOR AUTHOR'S ORGANIZ ATION 08/14/2023 [facility] Care Teams (unrecognized sec tion and content) Team Status: Active Member Role Status Dates Danuta Araujo ROCK LOADER-C Primary Care Provider Active Team Status: Active Member Role Status Dates Danuta Araujo NP-C Primary Care Provider Active Jane Tracey MD Attending Provider Active Keshav Arrington DO Referring Provider Active Team Status: Inactive Member Role Status Dates Danuta Araujo NP-C Primary Care Provider Active Jane Tracey MD Attending Provider Active Team Status: Inactive Member Role Status Dates Danuta Araujo NP-C Primary Care Provider Active Bernard Peterson DO Emergency Provider Active Parveen Keller MD Admit Provider Active Chele Gamino DO Other Provider Active Brianne Umanzor MD Attending Provider Active Marc Giron MD Other Provider Active Team Status: Active Member Role Status Dates Danuta Araujo NP-C Primary Care Provider Active Marc Giron MD Admit Provider, Attending Provider A ctive Team Status: Active Member Role Status Dates Danuta Diana Van , ROCK LOADER-C Primary Care Provider Active Bernard Peterson , DO Emergency Provider Active Parveen Keller MD Admit Provider, Attending Provide r Active Team Status: Inactive Member Role Status Dates Danuta Araujo , ROCK LOADER-C Primary Care Provider Active Marc Giron MD Admit Provider, Attending Provider A ctsara Susanna Temitope Other Provider Active Loli Cheema , DO Other Provider Active David Chowdary MD Other Provider Active Keshav Arrington , DO Other Provider Active Chetna Schwarz , ANP-BC Other Provider Active Chele Gamino , DO Other Provider Active Mandy Coker , METAL CASTING TRADES WORKER Other Provider Active Jes Akhtar , ROCK LOADER-C Other Provider Active Cris Goodman , METAL CASTING TRADES WORKER-OTHER SALES SUPPORT WORKER-C Other Provider Active Java Developer Analyst Relationship Specialty Start Date End Date Irvin Cervantes MD [address] [place] [address] Referring Family Medicine 03/15/23 Java Developer Analyst Relationship Specialty Start Date End Date Irvin Cervantes MD [address] [place] [facility] [place] [facility] [address] Referring Family Medicine 03/15/23 Cris Goodman [address] [place] [phone] Referring 05/02/23 Java Developer Analyst Relationship Specialty Start Date End Date Irvin Cervantes MD [address] [place] [address] Referring Family Medicine 03/15/23 Cris Goodman [address] [place] [phone] Referring 05/02/23 Source Comments (unrecognize d section and content) In the event this informatio n is protected by the Federal Confidentiality of Alcohol and Drug Abuse Patient Records regulations: The Federal rules restrict any use of the information to criminally investigate or prosecute any alcohol or drug abuse patient.[facility] the event this information is protected by the Federal Confidentiality of Alcohol and Drug Abuse Patient Records regulations: The Federal rules restrict any use of the information to criminally investigate or prosecute any alcohol or drug abuse patient.[facility] the event this information is protected by the Federal Confidentiality of Alcohol and Drug Abuse Patient Records regulations: The Federal rules restrict any use of the information to criminally investigate or prosecute any alcohol or drug abuse patient.[facility] the event this information is protected by the Federal Confidentiality of Alcohol and Drug Abuse Patient Records regulations: The Federal rules restrict any use of the information to criminally investigate or prosecute any alcohol or drug abuse patient.[facility] Reason for Visit (unrecogniz ed section and content) Reason Comments Appointment Reason Comments Consult My hands and my feet feel like rocks Stiff Especially feetFeels like standing on hot coals Like feet are on fire Sometimes shooting pains Specialty Diagnoses / Procedures Referred By Chris limon Referred To Contact Neurology Diagnoses Neuropathy Procedures CONSULT TO NEUROLOGY OFFICE/OUTPATIENT NEW HIGH MDM 60-74 MINUTES Jeannie Jarvis APRN.SYSTEM SUPPORT SPECIALIST [address] [place] [address] Referral ID Status Reason Start Date Expiration Date V isits Requested Visits Authorized [id number] Closed PCP Requested Referral 04/12/2023 04/11/2024 1 [...] BE BASED ON THE PRIMARY CLINICAL RECORDS. [employer] provides no warranty or guarantee of the accuracy or completeness of information in this document.
[2023-08-20 10:02] LABS: Internal Control Within Normal Limits; Strep A Antigen Screen Negative
== END 2023-08-20 09:29 | disposition home or self-care (01) ==
LOC: LAB 09:28
PROVIDERS: PCP Nurse Practitioner Family; Visit Provider Nurse Practitioner Family
DX: J02.9 Acute pharyngitis, unspecified (principal)
CPT/HCPCS: 87070; 87150; 87186; 87880

== ENCOUNTER 2023-11-13 12:15 | Outpatient (OUT) | payer OTHER, SELFPAY ==
[2023-11-13 13:02] LABS: Estimated GFR (African America >60 (>=60); Estimated GFR (Non-African Ame >60 (>=60)
[2023-11-13 13:04] LABS: C Reactive Protein <0.50 mg/dL (<=0.50)
[2023-11-13 13:17] LABS: Basophils Absolute Auto 0.1 10^3/uL (0.0-0.1); Eosinophils Absolute Auto 0.2 10^3/uL (0.0-0.7); Eosinophils Percent Auto 1.9 % (0.9-7.0); Hematocrit 41.4 % (36.0-48.0); Hemoglobin 13.6 g/dL (12.0-16.0); Immature Granulocytes Abs Auto 0.16 10^3/uL (0.00-0.03); Immature Granulocytes Pct Auto 1.7 % (0.0-0.5); Lymphocytes Absolute Auto 2.4 10^3/uL (1.2-3.8); Lymphocytes Percent Auto 25.2 % (20.5-60.0); Mean Corpuscular HGB Conc 32.9 g/dL (29.9-35.2); Mean Corpuscular Volume 91.4 fL (81.0-99.0); Mean Platelet Volume 10.1 fL (9.5-13.5); Monocytes Absolute Auto 0.5 10^3/uL (0.3-0.8); Monocytes Percent Auto 5.5 % (1.7-12.0); Neutrophils Absolute Auto 6.1 10^3/uL (1.4-6.5); Neutrophils Percent Auto 64.7 % (43.0-75.0); Platelet Count 285 10^3/uL (150-450); Red Blood Count 4.53 10^6/uL (4.20-5.40); Red Cell Distribution Width 12.2 % (11.0-15.0); White Blood Count 9.4 10^3/uL (4.0-11.0)
[2023-11-13 14:33] LABS: Erythrocyte Sedimentation Rate 50 mm/hr (<=20)
[2023-11-13 16:21] LABS: Bilirubin Urine NEGATIVE (NEGATIVE); Blood Urine NEGATIVE (NEGATIVE); Clarity Urine SL CLOUDY (CLEAR); Color Urine LT. YELLOW (YELLOW); Glucose Urine UA NEGATIVE (NEGATIVE); Ketones Urine NEGATIVE (NEGATIVE); Leukocyte Esterase Urine MODERATE (NEGATIVE); Nitrite Urine NEGATIVE (NEGATIVE); Protein Urine NEGATIVE (NEG/TRACE); Urobilinogen Urine 0.2 EU/dL (0.2-1.0); pH Urine 5.5 (5.0-9.0)
[2023-11-13 16:44] LABS: Bacteria Urine MODERATE #/HPF (NONE SEEN); Cast Seen? NONE SEEN #/LPF (NONE SEEN); Crystals Seen? None Seen #/HPF (None Seen); Mucus Urine NONE SEEN (NONE SEEN); Squamous Epithelial Cell Urine MANY #/LPF (NONE/RARE)
== END 2023-11-13 12:16 | disposition home or self-care (01) ==
LOC: LAB 12:16
PROVIDERS: PCP Nurse Practitioner Family; Visit Provider Internal Medicine Rheumatology
DX: R76.0 Raised antibody titer (principal)
CPT/HCPCS: 36415; 81001; 82565; 85025; 85652; 86038; 86140

== ENCOUNTER 2024-01-15 20:22 | Outpatient (REF) | payer OTHER, SELFPAY ==
--- OUTSIDE RECORDS SUMMARY | 2024-01-15 20:27 | XMS_ITS | CCD ---
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 Role Phone Akin Niñon R Primary Care Provider [phone] INOCENCIO BENDER Referring Unavailable RENAY, HAVEN R Primary Care Unavailable INOCENCIO BENDER Referring Unavailable RENAY, HAVEN R Primary Care Unavailable MASSIMO BRIGHT Referring Unavailable RENAY, HAVEN R Primary Care Unavailable SWATI, DANUTA Admitting Unavailable SWATI, DANUTA Primary Care Unavailable SWATI, DANUTA Attending Unavailable PAY ., DR MENDEZ Admitting Unavailable SWATI, DANUTA Primary Care Unavailable PAY ., DR MENDEZ Attending Unavailable PAUL NIXON Consulting Unavailabl e SWATI, DANUTA Primary Care Unavailable GRACIA ., KATINA Admitting Unavailable DIONNE, DR DAVID Fallon Consulting Unavailable GRACIA ., KATINA Attending Unavailable SHIV .PAUL Consulting Unavailyvonne e GRACIA ., KATINA Consulting Unavailable SHENG NORMAN Consulting Unavailable SWATI, DANUTA Admitting Unavailable SWATI, DANUTA Primary Care Unavailable Karyna Langford Consulting Unavailable SWATI, DANUTA Attending Unavailable ZIPERICO, DR DAVID Fallon Consulting Unavailable SWATI, DANUTA Consulting Unavailable SWATI, DANUTA Admitting Unavailable SWATI, DANUTA Primary Care Unavailable Karyna Langford Consulting Unavailable SWATI, DANUTA Attending Unavailable SWATI, DANUTA Consulting Unavailable SWATI, DANUTA Admitting Unavailable SWATI, DANUTA Primary Care Unavailable SWAIT, DANUTA Attending Unavailable SWATI, DANUTA Consulting Unavailable SWATI, DANUTA Admitting Unavailable SWATI, DANUTA Primary Care Unavailable Karyna Langford Consulting Unavailable SWATI, DANUTA Attending Unavailable SWATI, DANUTA Consulting Unavailable NICKI ., DAVE Admitting Unavailable NICKI ., DAVE Consulting Unavailable NICKI ., DAVE Attending Unavailable SWATI, DANUTA Primary Care Unavailable JERSEY CHAMBERSA Admitting Unavailable KLARISSA CHAMBERS Consulting Unavailable KLARISSA CHAMBERS Attending Unavailable SWATI, DANUTA Primary Care Unavailable SWATI, DANUTA Admitting Unavailable SWATI, DANUTA Primary Care Unavailable Karyna Lnagford Consulting Unavailable SWATI, DANUTA Attending Unavailable SWATI, DANUTA Consulting Unavailable SWATI, DANUTA Primary Care Unavailable SUDHA ., DR DUCKWORTH Attending Unavailable SUDHA ., DR DUCKWORTH Admitting Unavailable SUDHA ., DR DUCKWORTH Consulting Unavailable Swati, FIRE SPRINKLER FITTER-C Danuta Diana Primary Care Provider [phone] DO Bernard Peterson Emergency Provider MD Parveen Riley Admit Provider MD Parveen Keller Attending Provider HAVEN NIÑO CNP Primary Care Physician [phone] DO Chele Gamino Other Provider MD Brianne Umanzor Attending Provider MD Marc Giron Other Provider MD Marc Giron Admit Provider MD Marc Giron Attending Provider Susanna Linn Other Provider Unavailable DO Loli Cheema Other Provider MD David Chowdary Other Provider DO Keshav Arrington Other Provider Chong ANP- Chetna Other Provider HODAN Coker Other Provider DRAKE Akhtar Other Provider HODAN Goodman-LEAD COATER-C Cris Conklin Other Provider Irvin Cervantes MD Unavailable Neelima GRECO, Zane Bal Attending Unavailable Cris Goodman Unavailable DEBORAH Araujo-Mikel Ortiz Primary Care Provider [phone] DO Bernard Peterson Emergency Provider MD Parveen Riley Admit Provider DO Chele Gamino Other Provider MD Brianne Umanzor Attending Provider MD Marc Giron Other Provider MD Marc Giron Admit Provider MD Marc Giron Attending Provider Leopoldoonealkatharinealfredo Susanna Other Provider Unavailable DO Loli Cheema Other Provider MD David Chowdary Other Provider [phone] DO Keshav Arrington Other Provider Chong ANP- Chetna Other Provider HODAN Coker Other Provider DRAKE Akhtar S Other Provider [phone] HODAN Goodman-LEAD COATER-C Cris Conklin Other Provider [phone] MD Jane Tracey Attending Provider MD Jane Tracey Attending Provider DRAKE Araujo Primary Care Provider MD Jane Tracey Attending Provider DO Keshav Arrington Referring Provider [phone] NETTIE SHEA Attending Unavailable MARTHA GRAY Attending Unavailable MARTHA GRAY Attending Unavailable Sheng Mcdonald Attending Unavailable RENAY DIRECTOR OF CONSULTING SERVICES, HAVEN Primary Care Unavailable RENAY DIRECTOR OF CONSULTING SERVICES, HAVEN Primary Care Unavailable Sheng Mcdonald Attending Unavailable BHAVESH LOPEZ Attending Unavailable SWATI, DANUTA S Referring Unavailable NICOLE BLANCO Primary Care Unavailable SHIV HOLMAN Admitting Unavailable SHIV HOLMAN Attending Unavailable RODDENBERRY, JEANNIE Referring Unavailable RODDENBERRY, JEANNIE Referring Unavailable RODDENBERRY, JEANNIE Attending Unavailable SWATI, DANUTA S Primary Care Unavailable JEFERSON JUANIS Referring Unavailable JOEL NOE Attending Unavailable ARSH OROZCO Attending Unavailabl e RODDENBERRY, JEANNIE Referring Unavailable JEANNIE JARVIS Attending Unavailable DRAKE Araujo Diana Primary Care Provider [phone] MD Jane Tracey Attending Provider [phone] DO Keshav Arrington Referring Provider MD Cristóbal Casillas Attending Provider Cristóbal Casillas Admitting Unavailable Cristóbal Casillas Attending Unavailable Danuta Araujo Diana Primary Care Unavailable Keshav Arrington Referring Unavailab Danuta Naidu Diana Primary Care Unavailable Jane Tracey Admitting Unavailabl e Jane Tracey Attending Unavailabl Chele Aaron Consulting Unavailable Brianne Umanzor Attending Unavailable Danuta Araujo Diana Primary Care Unavailable Parveen Keller Admitting Unavailable Marc Giron Consulting Unavailable Marc Giron Admitting Unavailable Marc Giron Attending Unavailable Susanna Linn Consulting Unavailable Swati Danuta Diana Primary Care Unavailable Loli Cheema Consulting Unavailable David Chowdary Consulting Unavailable Keshav Arrington Consulting Unavailab Chetna Bright Consulting Unavailable Chele Gamino Consulting Unavailable Mandy Coker Consulting Unavailable Jes Akhtar Consulting Unavailable Cris Goodman Consulting Unavailable Danuta Araujo Diana Primary Care Unavailable Jane Tracey Admitting Unavailabl e Jane Tracey Attending Unavailabl e Allergies Allergy Classification Reported Allergen(s) Allergy Type Date of Onset Reaction(s) Facility (10 sources) Penicillins; Translations: [PENICILLINS] Drug allergy (disorder) 4 Rash [facility] Repository (2 sources) Penicillin; Translations: [penicillin] Drug Allergy Eruption of skin (disorder) [facility] (4 sources) Penicillins Drug Allergy 3 Rash [facility] (1 source) Penicillins Drug allergy (disorder) 4 [facility] Repository Medications Current Medications Medication Drug Class(es) Dates Sig (Normalized) Sig (Original) acamprosate calcium 333 mg delayed release oral tablet (2 sources) Start: 11-13-2023 take 333 mg by mouth twice daily at dinner Acamprosate Active 333 MG PO Twice daily November 13, 2023 12:00am administer with mid-day and evening meals folic acid 1 mg oral tablet (20 sources) Start: 05-30-2023 take 2 mg by mouth once daily Folic Acid Active 2 MG PO Daily May 30, 2023 1:00am Start: 03-27-2023 End: 05-30-2023 take 1 mg by mouth once daily in the morning Folic Acid Discontinued 1 MG PO Every morning April 02, 2023 12:00am May 30, 2023 3:16pm Comment on above: TAKE 1 TABLET EVERY MORNING FOR 30 DAYS gabapentin 300 mg oral capsule (7 sources) Anti-epileptic Agent Start: 05-17-20 take 300 mg by mouth twice daily Gabapentin Active 300 MG PO Twice daily May 30, 2023 1:00am Comment on above: Take 300 mg by mouth two times a day. 24 hr metoprolol succinate 25 mg extended release oral tablet (7 sources) beta-Adrenergic Poonam Start: 05-08-20 End: 05-07-20 take 25 mg by mouth once daily in the morning Metoprolol Succinate Active 25 MG PO Every morning May 30, 2023 1:00am Comment on above: Take 25 mg by mouth once daily. sertraline 50 mg oral tablet (2 sources) Serotonin Reuptake Inhibitor Start: 11-13-19 take 1 tablet by mouth once daily Sertraline (Zoloft) 50 mg tablet Active 50 MG PO Daily November 13, 2023 12:00am vitamin b12 1 mg/ml injectable solution (1 source) Vitamin B12 Start: 11-13-19 inject 1000 ug by intramuscular injection every week Cyanocobalamin (Vitamin B-12) Active 1000 MCG IM every week November 13, 2023 12:00am dispense appropriate syringes and needles with B12 vitamin b6 50 mg oral tablet (10 sources) Start: 05-30-20 End: 05-30-20 take 1 tablet by mouth once daily Pyridoxine (Vitamin B6) (Vitamin B-6) 50 mg Tablet Active 50 MG PO Daily May 30, 2023 1:00am Completed/Discontinued Medications Medication Drug Class(es) Dates Sig (Normalized) Sig (Original) diclofenac sodium 0.01 mg/mg topical gel (6 sources) Nonsteroidal Anti-inflammatory Drug Start: 04-02-2023 End: 05-30-2023 Diclofenac Sodium (Voltaren Arthritis Pain) 1 % Gel Discontinued 2 GM TOPICAL Three times daily 08 20April 02, 2023 12:00am May 30, 2023 3:16pm DULoxetine 60 mg delayed release oral capsule [...] a day. lactulose 667 mg/ml oral solution (8 sources) Osmotic Laxative Start: 03-21-2023 End: 05-30-2023 take 10 g by mouth once daily in the morning Lactulose Discontinued 10 GM PO Every morning March 21, 2023 12:00am May 30, 2023 3:16pm magnesium oxide 200 mg oral tablet (8 sources) Start: 03-21-2023 End: 11-13-2023 take 200 mg by mouth once daily in the morning Magnesium Oxide Discontinued 200 MG PO Every morning March 21, 2023 12:00am November 13, 2023 9:52am magnesium oxide 200 mg magnesium chew (3 sources) magnesium oxide 200 mg magnesium chew OTC magnesium 200 mg BID 0 Active Comment on above: OTC magnesium 200 mg BID menthol 10 mg/ml / methyl salicylate 150 mg/ml topical cream (6 sources) Start: 04-02-2023 End: 05-30-2023 Methyl Salicylate-Menthol (Thera-Gesic) 15-1 % Cream Discontinued 1 APPLIC TOPICAL Three times daily April 02, 2023 12:00am May 30, 2023 3:17pm potassium chloride 20 meq extended release oral tablet (11 sources) Start: 03-20-2023 End: 11-09-2023 take 20 mEq by mouth twice daily Potassium Chloride Discontinued 20 MEQ PO Twice daily March 21, 2023 12:00am May 30, 2023 3:17pm Comment on above: TAKE 1 TABLET WITH F OOD ORALLY TWICE A DAY 30 DAYS pregabalin 75 mg oral capsule (9 sources) Start: 04-02-2023 End: 05-30-2023 take 75 mg by mouth twice daily Pregabalin Discontinued 75 MG PO Twice daily April 02, 2023 12:00am May 30, 2023 3:15pm Comment on above: Take 75 mg by mouth. thiamine 100 mg oral tablet (20 sources) Start: 03-27-2023 End: 05-30-2023 take 100 mg by mouth once daily in the morning Thiamine Hcl (Vitamin B1) Discontinued 100 MG PO Every morning April 02, 2023 12:00am May 30, 2023 3:17pm Comment on above: Take 100 mg by mouth every morning. Problems Active Problems Problem Classification Problem Date Documented Date Episodic/Chronic Alcohol-related disorders (17 sources) History of alcohol abuse; Translations: [Alcohol [...] Episodic Immunizations and screening for infectious disease (15 sources) Encounter for screening for infections with [...] right breast, unspecified quadrant] Onset: 09-17-2022 Episodic Other and unspecified benign neoplasm (1 source) Benign neoplasm of right breast; Translations: [BENIGN NEOPLASM OF RIGHT BREAST] Onset: 10-01-2022 Episodic Other circulatory disease (1 source) Other disorder of circulatory system; Translations: [Other disorder of circulatory system] Onset: 08-01-2023 Episodic Other connective tissue disease (8 sources) Weakness of distal arms and legs; Translations: [Other symptoms and signs involving the musculoskeletal system] 03-21-2023 Episodic Other connective tissue disease (1 source) Leg swelling symptom Onset: 08-01-2023 Episodic Other connective tissue disease (1 source) Myalgia, unspecified site; Translations: [Myalgia, unspecified site] Onset: 12-11-2023 Episodic Other hematologic conditions (1 source) Other specified diseases of blood and blood-forming organs; Translations: [OTH SPEC DZ BLOOD AND BLOOD-FORM ORG] Onset: 09-17-2022 Chronic Other liver diseases (1 source) Non-alcoholic fatty liver 03-08-2021 Chronic Other liver diseases (2 sources) Hepatic fibrosis; 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] 05-14-2023 Chronic Other liver diseases (11 sources) Fatty (change of) liver, not elsewhere classified; 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] 05-30-2023 Chronic Other liver diseases (17 sources) Enzyme level - finding; Translations: [Elevated transaminase measurement] 03-22-2023 Episodic Other liver diseases (1 source) Elevated liver enzymes level 01-11-2021 Episodic Other nervous system disorders (7 sources) Disorder of the peripheral nervous system; Translations: [Polyneuropathy, unspecified] 03-26-2023 Chronic Other nervous system disorders (15 sources) Polyneuropathy, unspecified; Translations: [Unspecified hereditary and idiopathic peripheral neuropathy] Onset: 03-22-2023 03-27-2023 Chronic Other nervous system disorders (1 source) Anesthesia of skin; Translations: [ANESTHESIA OF SKIN] Onset: 10-26-2022 Episodic Other nervous system disorders (8 sources) Paresthesia of lower extremity; Translations: [Paresthesia of skin] 03-21-2023 Episodic Other nervous system disorders (8 sources) Paresthesia of upper limb; Translations: [Paresthesia [...] Chronic Other nutritional; endocrine; and metabolic disorders (8 sources) Hypophosphatemia; Translations: [Other disorders of phosphorus metabolism] 03-21-2023 Chronic Other nutritional; endocrine; and metabolic disorders (8 sources) Hypomagnesemia; Translations: [Hypomagnesemia] 03-21-2023 Chronic Other nutritional; endocrine; and metabolic disorders (9 sources) Other disorders of phosphorus metabolism; 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] Onset: 03-22-2023 03-22-2023 Chronic Other nutritional; endocrine; and metabolic disorders (8 sources) Decrease in appetite; Translations: [Anorexia] 03-21-2023 Episodic Other nutritional; endocrine; and metabolic disorders (8 sources) Weight loss; Translations: [Abnormal weight loss] 03-21-2023 Episodic Other nutritional; endocrine; and metabolic disorders (5 sources) Anorexia; Translations: [Anorexia] 03-22-2023 Episodic Other skin disorders (5 sources) Skin hypopigmented; Translations: [Disorder of pigmentation, unspecified] 05-30-2023 Episodic Other skin disorders (6 sources) Disorder of pigmentation, unspecified; Translations: [Other [...] source) Edema Onset: 08-01-2023 Episodic Substance-related disorders (18 sources) Nicotine dependence, cigarettes, uncomplicated; Translations: [History of drug abuse] Onset: 09-03-2022 03-21-2023 Chronic Syncope (4 sources) Syncope and collapse; Translations: [SYNCOPE AND COLLAPSE] Onset: 09-13-2022 Episodic Unclassified (4 sources) Unspecified lump in the right breast, overlapping quadrants; Translations: [UNS LUMP RT BREAST OVRLPNG QUADRNTS] Onset: 09-23-2022 Unclassified (1 source) Supraventricular tachycardia, unspecified; Translations: [Supraventricular tachycardia, unspecified] Onset: 05-08-2023 Unclassified (1 source) Advanced hepatic fibrosis; 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] Onset: 09-05-2023 Unclassified (1 source) Hereditary motor and sensory neuropathy; Translations: [Hereditary motor and sensory neuropathy] Onset: 03-27-2023 Unclassified (1 source) Alcohol abuse, in remission; Translations: [Alcohol abuse, in remission] Onset: 03-22-2023 Unclassified (1 source) Elevation of levels of liver transaminase levels; Translations: [Elevation of levels of liver transaminase levels] Onset: 03-22-2023 Past or Other Problems Problem Classification Problem Date Documented Date Episodic/Chronic Administrative/socia l admission (10 sources) Other reduced mobility; Translations: [Impaired mobility and activities of daily living] Onset: 03-27-2023 03-28-2023 Episodic E Codes: Cut/pierceb (1 source) Contact with other sharp object(s), not elsewhere classified, initial encounter; Translations: [[facility] OT SHRP OB NOT ELSW CLASS INI] Onset: 06-07-2022 Episodic Malaise and fatigue (18 sources) Weakness; Translations: [Asthenia] Onset: 10-16-2022 03-21-2023 Episodic Nutritional deficiencies (14 sources) Deficiency of other specified B group vitamins; Translations: [Folic acid deficiency] Onset: 09-23-2022 03-28-2023 Episodic Open wounds of extremities (4 sources) Laceration without foreign body of left index finger without damage to nail, initial encounter; Translations: [LAC W/O FB LT IF W/O DMG NAIL INIT] Onset: 06-05-2022 Episodic Other connective tissue disease (9 sources) Other symptoms and signs involving the musculoskeletal system; Translations: [Other musculoskeletal symptoms referable to limbs] Onset: 09-01-2023 09-01-2023 Episodic Other liver diseases (1 source) Abnormal [...] tachycardia, unspecified] Onset: 05-08-2023 Urinary tract infections (17 sources) Urinary tract infectious disease; Translations: [Urinary tract infection, site not specified] Onset: 03-22-2023 03-21-2023 Episodic Results Test Name Value Interpretation Reference Range Facility PAT Antinuclear Antibodieson 12-11-2023 Antinuclear Abs, IFA Positive Critically abnormal . [facility] Comment on above: Result Comment: Nega tive <1:80 Borderline 1:80 Positive >1:80 Performed By: #### C REAT, ESR, CRP, HEPATIC, CK, CBC, MISC LAB #### [address] #### ANTI-KU AB, MITOM2, CH50, PAT, RNA POLYMR, C3, C4 #### [facility] , Note 1 Normal . [facility] Comment on above: Result Comment: Holly danielle Potential Disease Association Homogeneous Systemic Lupus Erythematosus, Drug Induced Systemic Lupus Erythematosus, Chronic Autoimmune hepatitis, Juvenile Idiopathic Arthritis Speckled Sjogren Syndrome, Systemic Lupus Erythematosus, Subacute Cutaneous Lupus, Lupus, Congenital Heart Block, Mixed Connective Tissue Disease, Scleroderma-diffuse, Scleroderma-Autoimmune Myositis Overlap Syndrome, Systemic Lupus Rddyzdshoydug-Rrbyadknfml-Wajncavbdn Myositis Overlap Syndrome, Systemic Autoimmune Rheumatic Disease, [...] Linear Scleroderma, Antiphospholipid Syndrome Performed at: - [facility] [id number] Hot End Operator: Breezy Jones PhD, Phone: [phone] Performed By: #### C REAT, ESR, CRP, HEPATIC, CK, CBC, MISC LAB #### [facility] [address] [place] [address] [place] #### ANTI-KU AB, MITOM2, CH50, PAT, RNA POLYMR, C3, C4 #### [facility] , Speckled Pattern 1:80 Normal . [facility] Comment on above: Result Comment: ICAP nomenclature: [id number] Performed By: #### C REAT, ESR, CRP, HEPATIC, CK, CBC, MISC LAB #### [facility] [address] [place] [address] [place] #### ANTI-KU AB, MITOM2, CH50, PAT, RNA POLYMR, C3, C4 #### [facility] , Alanine aminotransferase [En zymatic activity/volume] in Serum or PlasmaOrdered By: Cristóbal Casillas on 12-11-2023 ALT [Catalytic activity/Vol] 14 U/L Normal 7-52 [facility] Comment on above: Performed By: #### C REAT, ESR, CRP, HEPATIC, CK, CBC, MISC LAB #### [place] [address] [place] #### ANTI-KU AB, MITOM2, CH50, PAT, RNA POLYMR, C3, C4 #### [facility] , Albumin [Mass/volume] in Ser um or Plasma by Bromocresol green (BCG) dye binding methoOrdered By: Cristóbal Casillas on 12-11-2023 Albumin BCG dye [Mass/Vol] 5.0 g/dL 3.5-5.7 [facility] Alkaline phosphatase [Enzyma tic activity/volume] in Serum or PlasmaOrdered By: Cristóbal Casillas on 12-11-2023 ALP [Catalytic activity/Vol] 54 U/L Normal 34-104 [facility] Comment on above: Performed By: #### C REAT, ESR, CRP, HEPATIC, CK, CBC, MISC LAB #### [place] [address] [place] #### ANTI-KU AB, MITOM2, CH50, PAT, RNA POLYMR, C3, C4 #### [facility] , Anti-Ku Antibodyon Anti-Ku Antibody Negative Normal Negative [facility] Comment on above: Result Comment: This test was developed and its performance characteristics determined by [facility]. It has not been cleared or approved by the Food and Drug Administration. Performed at: [facility] [address] [place] [id number] Hot End Operator: Morteza Ambrocio MD, Phone: [phone] PERFORMED BY: [place] [address] PATHOLOGIST CASING PULLER RUIZ CLIFTON M.D. Performed By: #### C REAT, ESR, CRP, HEPATIC, CK, CBC, [facility] #### [address] #### ANTI-KU AB, MITOM2, CH50, PAT, RNA POLYMR, C3, C4 #### [facility] , Aspartate aminotransferase [ Enzymatic activity/volume] in Serum or PlasmaOrdered By: Cristóbal Casillas on 12-11-2023 AST [Catalytic activity/Vol] 16 U/L Normal 13-39 [facility] Comment on above: Performed By: #### C REAT, ESR, CRP, HEPATIC, CK, CBC, MISC LAB #### [place] [address] [place] #### ANTI-KU AB, MITOM2, CH50, PAT, RNA POLYMR, C3, C4 #### [facility] , Automated basophil %Ordered By: Cristóbal Casillas on 12-11-2023 Basophils/100 WBC (Bld) 0.6 % Normal . [facility] Comment on above: Performed By: #### C REAT, ESR, CRP, HEPATIC, CK, CBC, MISC LAB #### [place] [address] [place] #### ANTI-KU AB, MITOM2, CH50, PAT, RNA POLYMR, C3, C4 #### [facility] , Automated basophil countOrde red By: Cristóbal Casillas on 12-11-2023 Basophils (Bld) [#/Vol] 0.1 10*3/uL Normal 0.0-0.2 [facility] Comment on above: Performed By: #### C REAT, ESR, CRP, HEPATIC, CK, CBC, MISC LAB #### [place] [address] [place] #### ANTI-KU AB, MITOM2, CH50, PAT, RNA POLYMR, C3, C4 #### [facility] , Automated blood monocyte cou ntOrdered By: Cristóbal Casillas on 12-11-2023 Monocytes (Bld) [#/Vol] 0.4 10*3/uL Normal 0.0-0.8 [facility] Comment on above: Performed By: #### C REAT, ESR, CRP, HEPATIC, CK, CBC, MISC LAB #### [place] [address] [place] #### ANTI-KU AB, MITOM2, CH50, PAT, RNA POLYMR, C3, C4 #### [facility] , Automated eosinophil %Ordere d By: Cristóbal Casillas on 12-11-2023 Eosinophils/100 WBC (Bld) 1.9 % Normal . [facility] Comment on above: Performed By: #### C REAT, ESR, CRP, HEPATIC, CK, CBC, MISC LAB #### [place] [address] [place] #### ANTI-KU AB, MITOM2, CH50, PAT, RNA POLYMR, C3, C4 #### [facility] , Automated eosinophil countOr dered By: Cristóbal Casillas on 12-11-2023 Eosinophils (Bld) [#/Vol] 0.2 10*3/uL Normal 0.0-0.45 [facility] Comment on above: Performed By: #### C REAT, ESR, CRP, HEPATIC, CK, CBC, MISC LAB #### [place] [address] [place] #### ANTI-KU AB, MITOM2, CH50, PAT, RNA POLYMR, C3, C4 #### [facility] , Automated monocyte %Ordered By: Cristóbal Casillas on 12-11-2023 Monocytes/100 WBC (Bld) 4.3 % Normal . [facility] Comment on above: Performed By: #### C REAT, ESR, CRP, HEPATIC, CK, CBC, MISC LAB #### [facility] [address] [place] [address] [place] #### ANTI-KU AB, MITOM2, CH50, PAT, RNA POLYMR, C3, C4 #### [facility] , Automated neutrophil %Ordere d By: Cristóbal Casillas on 12-11-2023 Neutrophils/100 WBC (Bld) 71.2 % Normal . [facility] Comment on above: Performed By: #### C REAT, ESR, CRP, HEPATIC, CK, CBC, MISC LAB #### [facility] [address] #### ANTI-KU AB, MITOM2, CH50, PAT, RNA POLYMR, C3, C4 #### [facility] , Bilirubin.direct [Mass/volum e] in Serum or PlasmaOrdered By: Cristóbal Casillas on 12-11-2023 Bilirubin.direct [Mass/Vol] 0.10 mg/dL 0.03-0.18 [facility] Bilirubin.total [Mass/volume ] in Serum or PlasmaOrdered By: Cristóbal Casillas on 12-11-2023 Bilirubin [Mass/Vol] 0.5 mg/dL Normal 0.3-1.0 [facility] Comment on above: Performed By: #### C REAT, ESR, CRP, HEPATIC, CK, CBC, MISC LAB #### [facility] [address] [place] [address] [place] #### ANTI-KU AB, MITOM2, CH50, PAT, RNA POLYMR, C3, C4 #### [facility] , C reactive protein [Mass/vol ume] in Serum or PlasmaOrdered By: Cristóbal Casillas on 12-11-2023 CRP [Mass/Vol] < 0.5 mg/dL 0.0-0.5 [facility] C-Reactive Proteinon 024 CRP [Mass/Vol] mg/L Normal 0.0-0.5 [facility] Comment on above: Result Comment: PERF ORMED BY: [place] [address] PATHOLOGIST CASING PULLER RUIZ CLIFTON M.D. Performed By: #### C REAT, ESR, CRP, HEPATIC, CK, CBC, MISC LAB #### [address] #### ANTI-KU AB, MITOM2, CH50, PAT, RNA POLYMR, C3, C4 #### [facility] , Complement C3on 12-11-2023 Complement C3 141 mg/dL Normal 82-167 [facility] Comment on above: Result Comment: Perf ormed at: - [facility] [address] [id number] Hot End Operator: Breezy Jones PhD, Phone: [phone] Performed By: #### C REAT, ESR, CRP, HEPATIC, CK, CBC, MISC LAB #### [address] #### ANTI-KU AB, MITOM2, CH50, PAT, RNA POLYMR, C3, C4 #### [facility] , Complement C4on 12-11-2023 Complement C4 24 mg/dL Normal 12-38 [facility] Comment on above: Result Comment: PERF ORMED BY: [place] [address] PATHOLOGIST CASING PULLER RUIZ CLIFTON M.D. Performed By: #### C REAT, ESR, CRP, HEPATIC, CK, CBC, MISC LAB #### [place] [address] [place] #### ANTI-KU AB, MITOM2, CH50, PAT, RNA POLYMR, C3, C4 #### [facility] , Complement Total (CH50)on Complement Total (CH50) >60 Normal >41 [facility] Comment on above: Result Comment: Age Male Female 1 - 30 days Not Estab. Not Estab. 31 days - 6 months >32 >20 7 months - 17 years >39 >39 >17 years >41 >41 NOTE: The adult ( >17 years ) reference interval range is used to flag abnormals on this report. If the patient is 17 years old or younger, use the table above to determine out of range values. Performed at: - [facility] [address] [id number] Hot End Operator: Breezy Jones PhD, Phone: [phone] PERFORMED BY: [place] [address] PATHOLOGIST CASING PULLER RUIZ CLIFTON M.D. Performed By: #### C REAT, ESR, CRP, HEPATIC, CK, CBC, MISC LAB #### [place] [address] [place] #### ANTI-KU AB, MITOM2, CH50, PAT, RNA POLYMR, C3, C4 #### [facility] , Complete Blood Count Auto Di ffon 12-11-2023 Mean Corpuscular HGB Conc 33.3 g/dL Normal 32.0-35.0 [facility] Comment on above: Performed By: #### C REAT, ESR, CRP, HEPATIC, CK, CBC, MISC LAB #### [place] [address] [place] #### ANTI-KU AB, MITOM2, CH50, PAT, RNA POLYMR, C3, C4 #### [facility] , NRBC% 0.1 /100{WBC} Normal 0-0.5 [facility] Comment on above: Performed By: #### C REAT, ESR, CRP, HEPATIC, CK, CBC, MISC LAB #### [place] [address] [place] #### ANTI-KU AB, MITOM2, CH50, PAT, RNA POLYMR, C3, C4 #### [facility] , Creatine kinase [Enzymatic a ctivity/volume] in Serum or PlasmaOrdered By: Cristóbal Casillas on 12-11-2023 CK [Catalytic activity/Vol] 103 U/L Normal 30-223 [facility] Comment on above: Result Comment: PERF ORMED BY: [place] [address] PATHOLOGIST CASING PULLER RUIZ CLIFTON M.D. Performed By: #### C REAT, ESR, CRP, HEPATIC, CK, CBC, MISC LAB #### [address] #### ANTI-KU AB, MITOM2, CH50, PAT, RNA POLYMR, C3, C4 #### [facility] , Creatinineon 12-11-2023 GFR/1.73 sq M.predicted MDRD (S/P/Bld) [Vol rate/Area] mL/min/{1.73_m2} Normal [facility] Comment on above: Performed By: #### C REAT, ESR, CRP, HEPATIC, CK, CBC, MISC LAB #### [place] [address] [place] #### ANTI-KU AB, MITOM2, CH50, PAT, RNA POLYMR, C3, C4 #### [facility] , Creatinine [Mass/volume] in Serum or PlasmaOrdered By: Cristóbal Casillas on 12-11-2023 Creatinine [Mass/Vol] 0.68 mg/dL Normal 0.60-1.20 [facility] Comment on above: Performed By: #### C REAT, ESR, CRP, HEPATIC, CK, CBC, MISC LAB #### [place] [address] [place] #### ANTI-KU AB, MITOM2, CH50, PAT, RNA POLYMR, C3, C4 #### [facility] , Erythrocyte Sedimentation Ra mert 12-11-2023 ESR (Bld) [Velocity] 35 mm/h High 0-19 [facility] Comment on above: Result Comment: PERF ORMED BY: [place] [address] PATHOLOGIST CASING PULLER RUIZ CLIFTON M.D. Performed By: #### C REAT, ESR, CRP, HEPATIC, CK, CBC, MISC LAB #### [address] #### ANTI-KU AB, MITOM2, CH50, PAT, RNA POLYMR, C3, C4 #### [facility] , Erythrocyte distribution wid th [Ratio] by Automated countOrdered By: Cristóbal Casillas on 12-11-2023 Erythrocyte distribution width (RBC) [Ratio] 12.5 % Normal 11.9-15.3 [facility] Comment on above: Performed By: #### C REAT, ESR, CRP, HEPATIC, CK, CBC, MISC LAB #### [address] #### ANTI-KU AB, MITOM2, CH50, PAT, RNA POLYMR, C3, C4 #### [facility] , Erythrocyte sedimentation ra te by Photometric methodOrdered By: Cristóbal Casillas on 12-11-2023 ESR Photometric method (Bld) [Velocity] 35 mm/hr 0-19 [facility] Erythrocytes [#/volume] in B lood by Automated countOrdered By: Cristóbal Casillas on 12-11-2023 RBC (Bld) [#/Vol] 4.94 10*6/uL Normal 3.60-5.00 [facility] Comment on above: Performed By: #### C REAT, ESR, CRP, HEPATIC, CK, CBC, MISC LAB #### [place] [address] [place] #### ANTI-KU AB, MITOM2, CH50, PAT, RNA POLYMR, C3, C4 #### [facility] , Hematocrit [Volume Fraction] of Blood by Automated countOrdered By: Cristóbal Casillas on 12-11-2023 Hematocrit (Bld) [Volume fraction] 44.8 % Normal 34.0-46.4 [facility] Comment on above: Performed By: #### C REAT, ESR, CRP, HEPATIC, CK, CBC, MISC LAB #### [address] #### ANTI-KU AB, MITOM2, CH50, PAT, RNA POLYMR, C3, C4 #### [facility] , Hemoglobin [Mass/volume] in BloodOrdered By: Cristóbal Casillas on 12-11-2023 Hemoglobin (Bld) [Mass/Vol] 14.9 g/dL Normal 11.8-15.4 [facility] Comment on above: Performed By: #### C REAT, ESR, CRP, HEPATIC, CK, CBC, MISC LAB #### [place] [address] [place] #### ANTI-KU AB, MITOM2, CH50, PAT, RNA POLYMR, C3, C4 #### [facility] , Hepatic Panelon 12-11-2023 Albumin [Mass/Vol] 5.0 g/dL Normal 3.5-5.7 [facility] Comment on above: Performed By: #### C REAT, ESR, CRP, HEPATIC, CK, CBC, MISC LAB #### [place] [address] [place] #### ANTI-KU AB, MITOM2, CH50, PAT, RNA POLYMR, C3, C4 #### [facility] , Bilirubin,Indirect 0.4 mg/dL Normal [facility] Comment on above: Performed By: #### C REAT, ESR, CRP, HEPATIC, CK, CBC, MISC LAB #### [place] [address] [place] #### ANTI-KU AB, MITOM2, CH50, PAT, RNA POLYMR, C3, C4 #### [facility] , Bilirubin.indirect [Mass/Vol] 0.10 mg/dL Normal 0.03-0.18 [facility] Comment on above: Performed By: #### C REAT, ESR, CRP, HEPATIC, CK, CBC, MISC LAB #### [place] [address] [place] #### ANTI-KU AB, MITOM2, CH50, PAT, RNA POLYMR, C3, C4 #### [facility] , Leukocytes [#/volume] correc antoine for nucleated erythrocytes in Blood by Automated counOrdered By: Cristóbal Casillas on 12-11-2023 WBC corrected for nucl RBC Auto (Bld) [#/Vol] 10.4 10*3/uL 3.8-11.6 [facility] Leukocytes [#/volume] in Blo od by Automated countOrdered By: Cristóbal Casillas on 12-11-2023 WBC (Bld) [#/Vol] 10.4 10*3/uL Normal 3.8-11.6 [facility] Comment on above: Performed By: #### C REAT, ESR, CRP, HEPATIC, CK, CBC, MISC LAB #### [facility] [address] [place] [address] [place] #### ANTI-KU AB, MITOM2, CH50, PAT, RNA POLYMR, C3, C4 #### [facility] , Lymphocytes [#/volume] in Bl ood by Automated countOrdered By: Cristóbal Casillas on 12-11-2023 Lymphocytes (Bld) [#/Vol] 2.3 10*3/uL Normal 1.00-4.8 [facility] Comment on above: Performed By: #### C REAT, ESR, CRP, HEPATIC, CK, CBC, MISC LAB #### [facility] [address] [place] [address] [place] #### ANTI-KU AB, MITOM2, CH50, PAT, RNA POLYMR, C3, C4 #### [facility] , Lymphocytes/100 leukocytes i n Blood by Automated countOrdered By: Cristóbal Casillas on 12-11-2023 Lymphocytes/100 WBC (Bld) 22.0 % Normal . [facility] Comment on above: Performed By: #### C REAT, ESR, CRP, HEPATIC, CK, CBC, MISC LAB #### [address] #### ANTI-KU AB, MITOM2, CH50, PAT, RNA POLYMR, C3, C4 #### [facility] , MCH [Entitic mass] by Automa antoine countOrdered By: Cristóbal Casillas on 12-11-2023 MCH (RBC) [Entitic mass] 30.2 pg Normal 24.7-34.3 [facility] Comment on above: Performed By: #### C REAT, ESR, CRP, HEPATIC, CK, CBC, [facility] #### [address] #### ANTI-KU AB, MITOM2, CH50, PAT, RNA POLYMR, C3, C4 #### [facility] , MCHC Auto (RBC) [Mass/Vol]Or dered By: Cristóbal Casillas on 12-11-2023 MCHC (RBC) [Mass/Vol] 33.3 g/dL 32.0-35.0 [facility] MCV [Entitic volume] by Auto mated countOrdered By: Cristóbal Casillas on 12-11-2023 MCV (RBC) [Entitic vol] 90.6 fL Normal 80-100 [facility] Comment on above: Performed By: #### C REAT, ESR, CRP, HEPATIC, CK, CBC, MISC LAB #### [address] #### ANTI-KU AB, MITOM2, CH50, PAT, RNA POLYMR, C3, C4 #### [facility] , MISC LABon 12-11-2023 MISC LAB Normal [facility] Comment on above: Order Comment: [facility] Test Name: TEST #[id number] TIF1 Result Comment: See report. Scanned copy available in EMR. PERFORMED BY: [place] [address] PATHOLOGIST CASING PULLER RUIZ CLIFTON M.D. Performed By: #### C REAT, ESR, CRP, HEPATIC, CK, CBC, MISC LAB #### [facility] [address] [place] [address] #### ANTI-KU AB, MITOM2, CH50, PAT, RNA POLYMR, C3, C4 #### [facility] , Mitochondrial (M2) Antibodyo n 12-11-2023 Mitochondrial (M2) Antibody <20.0 Normal 0.0-20.0 [facility] Comment on above: Result Comment: Nega tive 0.0 - 20.0 Equivocal 20.1 - 24.9 Positive >24.9 Mitochondrial (M2) Antibodies are found in 90-96% of patients with primary biliary cirrhosis. Performed at: [address] [id number] Hot End Operator: Breezy Jones PhD, Phone: [phone] Performed By: #### C REAT, ESR, CRP, HEPATIC, CK, CBC, [facility] #### [address] #### ANTI-KU AB, MITOM2, CH50, PAT, RNA POLYMR, C3, C4 #### [facility] , Neutrophils [#/volume] in Bl ood by Automated countOrdered By: Cristóbal Casillas on 12-11-2023 Neutrophils (Bld) [#/Vol] 7.4 10*3/uL Normal 1.8-7.7 [facility] Comment on above: Performed By: #### C REAT, ESR, CRP, HEPATIC, CK, CBC, MISC LAB #### [facility] [address] [place] [address] #### ANTI-KU AB, MITOM2, CH50, PAT, RNA POLYMR, C3, C4 #### [facility] , No Panel InformationOrdered By: Cristóbal Casillas on 12-11-2023 Estimated GFR (CKD-EPI) > 60.0 mL/Min [facility] Creatinine Clearance (Chem N/A [facility] Nucleated erythrocytes [Pres ence] in Blood by Automated countOrdered By: Cristóbal Casillas on 12-11-2023 Nucleated RBC Auto Ql (Bld) 0.1 /100{WBC} 0-0.5 [facility] Platelet mean volume [Entiti c volume] in Blood by Automated countOrdered By: Cristóbal Casillas on 12-11-2023 Platelet mean volume (Bld) [Entitic vol] 8.8 fL Normal 6.3-10.7 [facility] Comment on above: Performed By: #### C REAT, ESR, CRP, HEPATIC, CK, CBC, MISC LAB #### [address] #### ANTI-KU AB, MITOM2, CH50, PAT, RNA POLYMR, C3, C4 #### [facility] , Platelets [#/volume] in Bloo d by Automated countOrdered By: Cristóbal Casillas on 12-11-2023 Platelets (Bld) [#/Vol] 319 10*3/uL Normal 150-450 [facility] Comment on above: Performed By: #### C REAT, ESR, CRP, HEPATIC, CK, CBC, MISC LAB #### [place] [address] [place] #### ANTI-KU AB, MITOM2, CH50, PAT, RNA POLYMR, C3, C4 #### [facility] , Protein [Mass/volume] in Ser um or PlasmaOrdered By: Cristóbal Casillas on 12-11-2023 Protein [Mass/Vol] 8.1 g/dL Normal 6.4-8.[address] [facility] Comment on above: Performed By: #### C REAT, ESR, CRP, HEPATIC, CK, CBC, MISC LAB #### [place] [address] [place] #### ANTI-KU AB, MITOM2, CH50, PAT, RNA POLYMR, C3, C4 #### [facility] , RNA Polymerase IIion 024 RNA Polymerase IIi <20 Normal <20 [facility] Comment on above: Result Comment: Nega tive: <20 Weak Positive: 20 - 39 Moderate Positive: 40 - 80 Strong Positive: >80 Performed at: [facility] [address] [place] [id number] Hot End Operator: Morteza Ambrocio MD, Phone: [phone] PERFORMED BY: [place] [address] PATHOLOGIST CASING PULLER RUIZ CLIFTON M.D. Performed By: #### C REAT, ESR, CRP, HEPATIC, CK, CBC, MISC LAB #### [address] #### ANTI-KU AB, MITOM2, CH50, PAT, RNA POLYMR, C3, C4 #### [facility] , Serum globulin measurement b y calculation (mass/volume)Ordered By: Cristóbal Casillas on 12-11-2023 Globulin (S) [Mass/Vol] 3.1 g/dL Normal [facility] Comment on above: Performed By: #### C REAT, ESR, CRP, HEPATIC, CK, CBC, MISC LAB #### [place] [address] [place] #### ANTI-KU AB, MITOM2, CH50, PAT, RNA POLYMR, C3, C4 #### [facility] , Serum or plasma albumin/glob ulin mass ratioOrdered By: Cristóbal Casillas on 12-11-2023 Albumin/Globulin [Mass ratio] 1.6 {ratio} [facility] Comment on above: Performed By: #### C REAT, ESR, CRP, HEPATIC, CK, CBC, MISC LAB #### [place] [address] [place] #### ANTI-KU AB, MITOM2, CH50, PAT, RNA POLYMR, C3, C4 #### [facility] , Serum or plasma non-glucuron idated bilirubin measurement (mass/volume)Ordered By: Cristóbal Casillas on 12-11-2023 Bilirubin.indirect [Mass/Vol] 0.4 mg/dL [facility] Alanine aminotransferase [En zymatic activity/volume] in Serum or PlasmaOrdered By: Jane Tracey on 11-06-2023 ALT [Catalytic activity/Vol] 13 U/L Normal 7-52 [facility] Comment on above: Performed By: #### C REAT, ESR, CRP, HEPATIC, CK, CBC, MISC LAB #### [facility] [address] [place] [address] [place] #### ANTI-KU AB, MITOM2, CH50, PAT, RNA POLYMR, C3, C4 #### [facility] , Albumin [Mass/volume] in Ser um or PlasmaOrdered By: lilia Tracey on 11-06-2023 Albumin [Mass/Vol] 4.1 g/dL Normal 2.9-4.[address] [facility] Comment on above: Performed By: #### C REAT, ESR, CRP, HEPATIC, CK, CBC, MISC LAB #### [place] [address] [place] #### ANTI-KU AB, MITOM2, CH50, PAT, RNA POLYMR, C3, C4 #### [facility] , Albumin [Mass/volume] in Ser um or Plasma by Bromocresol green (BCG) dye binding methoOrdered By: lilia Hungdarleen on 11-06-2023 Albumin BCG dye [Mass/Vol] 4.5 g/dL 3.5-5.7 [facility] Alkaline phosphatase [Enzyma tic activity/volume] in Serum or PlasmaOrdered By: lilia Roseanna on 11-06-2023 ALP [Catalytic activity/Vol] 58 U/L Normal 34-104 [facility] Comment on above: Performed By: #### C REAT, ESR, CRP, HEPATIC, CK, CBC, MISC LAB #### [place] [address] [place] #### ANTI-KU AB, MITOM2, CH50, PAT, RNA POLYMR, C3, C4 #### [facility] , Aspartate aminotransferase [ Enzymatic activity/volume] in Serum or PlasmaOrdered By: Jane Tracey on 11-06-2023 AST [Catalytic activity/Vol] 17 U/L Normal 13-39 [facility] Comment on above: Performed By: #### C REAT, ESR, CRP, HEPATIC, CK, CBC, MISC LAB #### [place] [address] [place] #### ANTI-KU AB, MITOM2, CH50, PAT, RNA POLYMR, C3, C4 #### [facility] , Automated basophil %Ordered By: lilia Tracey on 11-06-2023 Basophils/100 WBC (Bld) 0.7 % Normal . [facility] Comment on above: Performed By: #### C REAT, ESR, CRP, HEPATIC, CK, CBC, [facility] #### [place] [address] [place] #### ANTI-KU AB, MITOM2, CH50, PAT, RNA POLYMR, C3, C4 #### [facility] , Automated basophil countOrde red By: Jane Tracey on 11-06-2023 Basophils (Bld) [#/Vol] 0.1 10*3/uL Normal 0.0-0.2 [facility] Comment on above: Result Comment: PERF ORMED BY: [place] [address] PATHOLOGIST CASING PULLER RUIZ CLIFTON M.D. Performed By: #### C REAT, ESR, CRP, HEPATIC, CK, CBC, [facility] #### [facility] [address] [place] [address] [place] #### ANTI-KU AB, MITOM2, CH50, PAT, RNA POLYMR, C3, C4 #### [facility] , Automated blood monocyte cou ntOrdered By: Jane Tracey on 11-06-2023 Monocytes (Bld) [#/Vol] 0.5 10*3/uL Normal 0.0-0.8 [facility] Comment on above: Performed By: #### C REAT, ESR, CRP, HEPATIC, CK, CBC, MISC LAB #### [facility] [address] [place] [address] [place] #### ANTI-KU AB, MITOM2, CH50, PAT, RNA POLYMR, C3, C4 #### [facility] , Automated eosinophil %Ordere d By: Jane Tracey on 11-06-2023 Eosinophils/100 WBC (Bld) 2.3 % Normal . [facility] Comment on above: Performed By: #### C REAT, ESR, CRP, HEPATIC, CK, CBC, MISC LAB #### [place] [address] [place] #### ANTI-KU AB, MITOM2, CH50, PAT, RNA POLYMR, C3, C4 #### [facility] , Automated eosinophil countOr dered By: Jane Tracey on 11-06-2023 Eosinophils (Bld) [#/Vol] 0.2 10*3/uL Normal 0.0-0.45 [facility] Comment on above: Performed By: #### C REAT, ESR, CRP, HEPATIC, CK, CBC, MISC LAB #### [place] [address] [place] #### ANTI-KU AB, MITOM2, CH50, PAT, RNA POLYMR, C3, C4 #### [facility] , Automated monocyte %Ordered By: lilia Tracey on 11-06-2023 Monocytes/100 WBC (Bld) 5.5 % Normal . [facility] Comment on above: Performed By: #### C REAT, ESR, CRP, HEPATIC, CK, CBC, MISC LAB #### [place] [address] [place] #### ANTI-KU AB, MITOM2, CH50, PAT, RNA POLYMR, C3, C4 #### [facility] , Automated neutrophil %Ordere d By: Jane Tracey on 11-06-2023 Neutrophils/100 WBC (Bld) 69.1 % Normal . [facility] Comment on above: Performed By: #### C REAT, ESR, CRP, HEPATIC, CK, CBC, MISC LAB #### [address] #### ANTI-KU AB, MITOM2, CH50, PAT, RNA POLYMR, C3, C4 #### [facility] , Bilirubin.total [Mass/volume ] in Serum or PlasmaOrdered By: d Abhilash-Cathryn on 11-06-2023 Bilirubin [Mass/Vol] 0.4 mg/dL Normal 0.3-1.0 [facility] Comment on above: Performed By: #### C REAT, ESR, CRP, HEPATIC, CK, CBC, MISC LAB #### [address] #### ANTI-KU AB, MITOM2, CH50, PAT, RNA POLYMR, C3, C4 #### [facility] , Calcium [Mass/volume] in Ser um or PlasmaOrdered By: lilia -Katja on 11-06-2023 Calcium [Mass/Vol] 9.9 mg/dL Normal 8.6-10.[address] [facility] Comment on above: Performed By: #### C REAT, ESR, CRP, HEPATIC, CK, CBC, MISC LAB #### [place] [address] [place] #### ANTI-KU AB, MITOM2, CH50, PAT, RNA POLYMR, C3, C4 #### [facility] , Carbon dioxide, total [Moles /volume] in Serum or PlasmaOrdered By: d on 11-06-2023 CO2 [Moles/Vol] 25.0 mmol/L Normal 21.0-31.0 [facility] Comment on above: Performed By: #### C REAT, ESR, CRP, HEPATIC, CK, CBC, MISC LAB #### [facility] [address] [place] [address] [place] #### ANTI-KU AB, MITOM2, CH50, PAT, RNA POLYMR, C3, C4 #### [facility] , Chloride [Moles/volume] in S caitlyn or PlasmaOrdered By: Jane Tracey on 11-06-2023 Chloride [Moles/Vol] 102 mmol/L Normal 98-107 [facility] Comment on above: Performed By: #### C REAT, ESR, CRP, HEPATIC, CK, CBC, MISC LAB #### [facility] [address] [place] [address] [place] #### ANTI-KU AB, MITOM2, CH50, PAT, RNA POLYMR, C3, C4 #### [facility] , Complete Blood Count Auto Di ffon 11-06-2023 Mean Corpuscular HGB Conc 33.7 g/dL Normal 32.0-35.0 [facility] Comment on above: Performed By: #### C REAT, ESR, CRP, HEPATIC, CK, CBC, MISC LAB #### [facility] [address] [place] [address] [place] #### ANTI-KU AB, MITOM2, CH50, PAT, RNA POLYMR, C3, C4 #### [facility] , NRBC% 0.3 /100{WBC} Normal 0-0.5 [facility] Comment on above: Performed By: #### C REAT, ESR, CRP, HEPATIC, CK, CBC, MISC LAB #### [facility] [address] [place] [address] [place] #### ANTI-KU AB, MITOM2, CH50, PAT, RNA POLYMR, C3, C4 #### [facility] , Comprehensive Metabolic Pane antione 11-06-2023 Albumin [Mass/Vol] 4.5 g/dL Normal 3.5-5.7 [facility] Comment on above: Performed By: #### C REAT, ESR, CRP, HEPATIC, CK, CBC, MISC LAB #### [facility] [address] [place] [address] [place] #### ANTI-KU AB, MITOM2, CH50, PAT, RNA POLYMR, C3, C4 #### [facility] , Creatinine Clr Calc Pharmacy 118.57 Normal [facility] Comment on above: Performed By: #### C REAT, ESR, CRP, HEPATIC, CK, CBC, MISC LAB #### [place] [address] [place] #### ANTI-KU AB, MITOM2, CH50, PAT, RNA POLYMR, C3, C4 #### [facility] , GFR/1.73 sq M.predicted MDRD (S/P/Bld) [Vol rate/Area] mL/min/{1.73_m2} Normal [facility] Comment on above: Performed By: #### C REAT, ESR, CRP, HEPATIC, CK, CBC, MISC LAB #### [place] [address] [place] #### ANTI-KU AB, MITOM2, CH50, PAT, RNA POLYMR, C3, C4 #### [facility] , Creatinine [Mass/volume] in Serum or PlasmaOrdered By: Jane Tracey on 11-06-2023 Creatinine [Mass/Vol] 0.61 mg/dL Normal 0.60-1.20 [facility] Comment on above: Performed By: #### C REAT, ESR, CRP, HEPATIC, CK, CBC, MISC LAB #### [place] [address] [place] #### ANTI-KU AB, MITOM2, CH50, PAT, RNA POLYMR, C3, C4 #### [facility] , Erythrocyte distribution wid th [Ratio] by Automated countOrdered By: Jane Condon on 11-06-2023 Erythrocyte distribution width (RBC) [Ratio] 12.3 % Normal 11.9-15.3 [facility] Comment on above: Performed By: #### C REAT, ESR, CRP, HEPATIC, CK, CBC, MISC LAB #### [address] [place] [address] [place] #### ANTI-KU AB, MITOM2, CH50, PAT, RNA POLYMR, C3, C4 #### [facility] , Erythrocytes [#/volume] in B lood by Automated countOrdered By: Jane Tracey on 11-06-2023 RBC (Bld) [#/Vol] 4.62 10*6/uL Normal 3.60-5.00 [facility] Comment on above: Performed By: #### C REAT, ESR, CRP, HEPATIC, CK, CBC, MISC LAB #### [facility] [address] [place] [address] [place] #### ANTI-KU AB, MITOM2, CH50, PAT, RNA POLYMR, C3, C4 #### [facility] , Folate [Mass/volume] in Seru m or PlasmaOrdered By: Jane Tracey on 11-06-2023 Folate [Mass/Vol] 23.0 ng/mL >5.9 [facility] Comment on above: Folate reference ran ge: >5.9 ng/mlThe WHO technical consultation on folate and vitamin [id number] has determined that folate concentrations lessthan 4 ng/ml are considered deficient. Free K+L LT Chains, Qn, Son 11-06-2023 Free Redmon Light Chains, S 20.5 mg/L High 3.3-19.4 [facility] Comment on above: Performed By: #### C REAT, ESR, CRP, HEPATIC, CK, CBC, MISC LAB #### [place] [address] [place] #### ANTI-KU AB, MITOM2, CH50, PAT, RNA POLYMR, C3, C4 #### [facility] , Free Lambda Light Chains, S 13.8 mg/L Normal 5.7-26.3 [facility] Comment on above: Performed By: #### C REAT, ESR, CRP, HEPATIC, CK, CBC, MISC LAB #### [facility] [address] [place] [address] [place] #### ANTI-KU AB, MITOM2, CH50, PAT, RNA POLYMR, C3, C4 #### [facility] , Redmon/Lambda Ratio, S 1.49 Normal 0.26-1.65 [facility] Comment on above: Result Comment: Perf ormed at: - [facility] [address] [id number] Hot End Operator: Breezy Jones PhD, Phone: [phone] PERFORMED BY: [place] [address] PATHOLOGIST CASING PULLER RUIZ CLIFTON M.D. Performed By: #### C REAT, ESR, CRP, HEPATIC, CK, CBC, [facility] LAB #### [address] #### ANTI-KU AB, MITOM2, CH50, PAT, RNA POLYMR, C3, C4 #### [facility] , Glucose [Mass/volume] in Ser um or PlasmaOrdered By: Jane Tracey on 11-06-2023 Glucose [Mass/Vol] 94 mg/dL Normal 70-[address] [facility] Comment on above: ADA recommended refe rence rangeRandom Glucose Reference Range is dependent on time and content of last meal. Glucose of more than 200 mg/dL in a nonstressed, ambulatory subject supports the diagnosis of Diabetes Mellitus. Result Comment: [place] om Glucose Reference Range is dependent on time and content of last meal. Glucose of more than 200 mg/dL in a nonstressed, ambulatory subject supports the diagnosis of Diabetes Mellitus. ADA recommended reference range Performed By: #### C REAT, ESR, CRP, HEPATIC, CK, CBC, MISC LAB #### [facility] [address] [place] [address] [place] #### ANTI-KU AB, MITOM2, CH50, PAT, RNA POLYMR, C3, C4 #### [facility] , Hematocrit [Volume Fraction] of Blood by Automated countOrdered By: Jane Condon on 11-06-2023 Hematocrit (Bld) [Volume fraction] 41.0 % Normal 34.0-46.4 [facility] Comment on above: Performed By: #### C REAT, ESR, CRP, HEPATIC, CK, CBC, [facility] #### [facility] [address] [place] [address] [place] #### ANTI-KU AB, MITOM2, CH50, PAT, RNA POLYMR, C3, C4 #### [facility] , Hemoglobin [Mass/volume] in BloodOrdered By: Jane Tracey on 11-06-2023 Hemoglobin (Bld) [Mass/Vol] 13.8 g/dL Normal 11.8-15.4 [facility] Comment on above: Performed By: #### C REAT, ESR, CRP, HEPATIC, CK, CBC, [facility] #### [facility] [address] [place] [address] #### ANTI-KU AB, MITOM2, CH50, PAT, RNA POLYMR, C3, C4 #### [facility] , Immunoglobulin light chains. kappa.free [Mass/volume] in SerumOrdered By: lilia AcevedoSepdarleen on 11-06-2023 Immunoglobulin light chains.kappa.free (S) [Mass/Vol] 20.5 mg/L 3.3-19.4 [facility] Immunoglobulin light chains. kappa.free/Immunoglobulin light chains.lambda.free [MassOrdered By: lilia Tracey on 11-06-2023 Immunoglobulin light chains.kappa.free/Immun oglobulin light chains.lambda.free (S) [Mass ratio] 1.49 0.26-1.65 [facility] Comment on above: Performed at: [address] [id number] Director: Breezy Jones PhD, Phone: [phone] Immunoglobulin light chains. lambda.free [Mass/volume] in Serum or PlasmaOrdered By: lilia Tracey on 11-06-2023 Immunoglobulin light chains.lambda.free [Mass/Vol] 13.8 mg/L 5.7-26.3 [facility] Leukocytes [#/volume] correc antoine for nucleated erythrocytes in Blood by Automated counOrdered By: lilia AcevedoSep on 11-06-2023 WBC corrected for nucl RBC Auto (Bld) [#/Vol] 9.9 10*3/uL 3.8-11.6 [facility] Leukocytes [#/volume] in Blo od by Automated countOrdered By: lilia AcevedoSepdarleen on 11-06-2023 WBC (Bld) [#/Vol] 9.9 10*3/uL Normal 3.8-11.[address] [facility] Comment on above: Performed By: #### C REAT, ESR, CRP, HEPATIC, CK, CBC, [facility] #### [facility] [address] [place] [address] #### ANTI-KU AB, MITOM2, CH50, PAT, RNA POLYMR, C3, C4 #### [facility] , Lymphocytes [#/volume] in Bl ood by Automated countOrdered By: lilia AcevedoSepdarleen on 11-06-2023 Lymphocytes (Bld) [#/Vol] 2.2 10*3/uL Normal 1.00-4.8 [facility] Comment on above: Performed By: #### C REAT, ESR, CRP, HEPATIC, CK, CBC, [facility] #### [place] [address] [place] #### ANTI-KU AB, MITOM2, CH50, PAT, RNA POLYMR, C3, C4 #### [facility] , Lymphocytes/100 leukocytes i n Blood by Automated countOrdered By: lilia AcevedoSepdarleen on 11-06-2023 Lymphocytes/100 WBC (Bld) 22.4 % Normal . [facility] Comment on above: Performed By: #### C REAT, ESR, CRP, HEPATIC, CK, CBC, [facility] #### [facility] [address] [place] [address] [place] #### ANTI-KU AB, MITOM2, CH50, PAT, RNA POLYMR, C3, C4 #### [facility] , MCH [Entitic mass] by Automa antoine countOrdered By: Jane Tracey on 11-06-2023 MCH (RBC) [Entitic mass] 29.9 pg Normal 24.7-34.3 [facility] Comment on above: Performed By: #### C REAT, ESR, CRP, HEPATIC, CK, CBC, [facility] #### [address] #### ANTI-KU AB, MITOM2, CH50, PAT, RNA POLYMR, C3, C4 #### [facility] , MCHC Auto (RBC) [Mass/Vol]Or dered By: Jane Tracey on 11-06-2023 MCHC (RBC) [Mass/Vol] 33.7 g/dL 32.0-35.0 [facility] MCV [Entitic volume] by Auto mated countOrdered By: Jane Tracey on 11-06-2023 MCV (RBC) [Entitic vol] 88.8 fL Normal 80-100 [facility] Comment on above: Performed By: #### C REAT, ESR, CRP, HEPATIC, CK, CBC, [facility] #### [address] #### ANTI-KU AB, MITOM2, CH50, PAT, RNA POLYMR, C3, C4 #### [facility] , Neutrophils [#/volume] in Bl ood by Automated countOrdered By: Jane Tracey on 11-06-2023 Neutrophils (Bld) [#/Vol] 6.8 10*3/uL Normal 1.8-7.7 [facility] Comment on above: Performed By: #### C REAT, ESR, CRP, HEPATIC, CK, CBC, [facility] #### [address] #### ANTI-KU AB, MITOM2, CH50, PAT, RNA POLYMR, C3, C4 #### [facility] , No Panel InformationOrdered By: Jane Tracey on 11-06-2023 Estimated GFR (CKD-EPI) > 60.0 mL/Min [facility] Creatinine Clearance (Chem 118.57 [facility] Protein Electrophoresis M-Tomas Not observed g/dL Not Observed [facility] Protein Electrophoresis Note See comment . [facility] Comment on above: Protein electrophore sis scan will follow via computer,mail, or crime scene specialist delivery. Nucleated erythrocytes [Pres ence] in Blood by Automated countOrdered By: Jane Trcaey on 11-06-2023 Nucleated RBC Auto Ql (Bld) 0.3 /100{WBC} 0-0.5 [facility] Platelet mean volume [Entiti c volume] in Blood by Automated countOrdered By: Jane Tracey on 11-06-2023 Platelet mean volume (Bld) [Entitic vol] 8.3 fL Normal 6.3-10.7 [facility] Comment on above: Performed By: #### C REAT, ESR, CRP, HEPATIC, CK, CBC, [facility] #### [facility] [address] [place] [address] [place] #### ANTI-KU AB, MITOM2, CH50, PAT, RNA POLYMR, C3, C4 #### [facility] , Platelets [#/volume] in Bloo d by Automated countOrdered By: Jane Tracey on 11-06-2023 Platelets (Bld) [#/Vol] 277 10*3/uL Normal 150-450 [facility] Comment on above: Performed By: #### C REAT, ESR, CRP, HEPATIC, CK, CBC, [facility] #### [facility] [address] [place] [address] [place] #### ANTI-KU AB, MITOM2, CH50, PAT, RNA POLYMR, C3, C4 #### [facility] , Potassium [Moles/volume] in Serum or PlasmaOrdered By: Jane Tracey on 11-06-2023 Potassium [Moles/Vol] 4.2 mmol/L Normal 3.5-5.1 [facility] Comment on above: Performed By: #### C REAT, ESR, CRP, HEPATIC, CK, CBC, [facility] #### [place] [address] [place] #### ANTI-KU AB, MITOM2, CH50, PAT, RNA POLYMR, C3, C4 #### [facility] , Protein Electrophoresis, Ser umon 11-06-2023 Ebion-6-Hqtfhlcu 0.2 g/dL Normal 0.0-0.4 [facility] Comment on above: Performed By: #### C REAT, ESR, CRP, HEPATIC, CK, CBC, [facility] #### [place] [address] [place] #### ANTI-KU AB, MITOM2, CH50, PAT, RNA POLYMR, C3, C4 #### [facility] , Epesd-5-Iksagigd 0.8 g/dL Normal 0.4-1.0 [facility] Comment on above: Performed By: #### C REAT, ESR, CRP, HEPATIC, CK, CBC, [facility] #### [place] [address] [place] #### ANTI-KU AB, MITOM2, CH50, PAT, RNA POLYMR, C3, C4 #### [facility] , Beta Globulin 1.1 g/dL Normal 0.7-1.3 [facility] Comment on above: Performed By: #### C REAT, ESR, CRP, HEPATIC, CK, CBC, [facility] #### [place] [address] [place] #### ANTI-KU AB, MITOM2, CH50, PAT, RNA POLYMR, C3, C4 #### [facility] , Gamma Globulin 1.0 g/dL Normal 0.4-1.8 [facility] Comment on above: Performed By: #### C REAT, ESR, CRP, HEPATIC, CK, CBC, [facility] #### [place] [address] [place] #### ANTI-KU AB, MITOM2, CH50, PAT, RNA POLYMR, C3, C4 #### [facility] , M-Tomas Not Observed Normal Not Observed [facility] Comment on above: Performed By: #### C REAT, ESR, CRP, HEPATIC, CK, CBC, [facility] #### [address] #### ANTI-KU AB, MITOM2, CH50, PAT, RNA POLYMR, C3, C4 #### [facility] , SPE-Note Normal . [facility] Comment on above: Result Comment: Prot ein electrophoresis scan will follow via computer, mail, or crime scene specialist delivery. Performed By: #### C REAT, ESR, CRP, HEPATIC, CK, CBC, [facility] #### [address] #### ANTI-KU AB, MITOM2, CH50, PAT, RNA POLYMR, C3, C4 #### [facility] , Protein [Mass/volume] in Ser um or PlasmaOrdered By: Jane Tracey on 11-06-2023 Protein [Mass/Vol] 7.3 g/dL Normal 6.4-8.[address] [facility] Comment on above: Performed By: #### C REAT, ESR, CRP, HEPATIC, CK, CBC, [facility] #### [place] [address] [place] #### ANTI-KU AB, MITOM2, CH50, PAT, RNA POLYMR, C3, C4 #### [facility] , Protein [Mass/Vol] 7.2 g/dL Normal 6.0-8.[address] [facility] Comment on above: Performed By: #### C REAT, ESR, CRP, HEPATIC, CK, CBC, [facility] #### [place] [address] [place] #### ANTI-KU AB, MITOM2, CH50, PAT, RNA POLYMR, C3, C4 #### [facility] , Serum globulin measurement ( mass/volume)Ordered By: Jane AcevedoKatjadarleen on 11-06-2023 Globulin (S) [Mass/Vol] 3.1 g/dL Normal 2.2-3.9 [facility] Comment on above: Performed By: #### C REAT, ESR, CRP, HEPATIC, CK, CBC, [facility] #### [facility] [address] [place] [address] [place] #### ANTI-KU AB, MITOM2, CH50, PAT, RNA POLYMR, C3, C4 #### [facility] , Serum globulin measurement b y calculation (mass/volume)Ordered By: lilia Condon on 11-06-2023 Globulin (S) [Mass/Vol] 2.8 g/dL Normal [facility] Comment on above: Performed By: #### C REAT, ESR, CRP, HEPATIC, CK, CBC, [facility] #### [place] [address] [place] #### ANTI-KU AB, MITOM2, CH50, PAT, RNA POLYMR, C3, C4 #### [facility] , Serum or plasma albumin/glob ulin mass ratioOrdered By: lilia Tracey on 11-06-2023 Albumin/Globulin [Mass ratio] 1.6 {ratio} Normal [facility] Comment on above: Performed By: #### C REAT, ESR, CRP, HEPATIC, CK, CBC, [facility] #### [facility] [address] [place] [address] [place] #### ANTI-KU AB, MITOM2, CH50, PAT, RNA POLYMR, C3, C4 #### [facility] , Albumin/Globulin [Mass ratio] 1.3 {ratio} Normal 0.7-1.7 [facility] Comment on above: Performed By: #### C REAT, ESR, CRP, HEPATIC, CK, CBC, [facility] #### [facility] [address] [place] [address] [place] #### ANTI-KU AB, MITOM2, CH50, PAT, RNA POLYMR, C3, C4 #### [facility] , Serum or plasma alpha 1 glob ulin measurement by electrophoresis (mass/volume)Ordered By: Jane Tracey on 11-06-2023 Alpha 1 globulin Elph [Mass/Vol] 0.2 g/dL 0.0-0.4 [facility] Serum or plasma alpha 2 glob ulin measurement by electrophoresis (mass/volume)Ordered By: Jane Tracey on 11-06-2023 Alpha 2 globulin Elph [Mass/Vol] 0.8 g/dL 0.4-1.0 [facility] Serum or plasma anion gap de terminationOrdered By: Jane Tracey on 11-06-2023 Anion gap [Moles/Vol] 13.2 mmol/L Normal 6.0-15.0 [facility] Comment on above: Performed By: #### C REAT, ESR, CRP, HEPATIC, CK, CBC, [facility] #### [facility] [address] #### ANTI-KU AB, MITOM2, CH50, PAT, RNA POLYMR, C3, C4 #### [facility] , Serum or plasma beta globuli n measurement by electrophoresis (mass/volume)Ordered By: Jane Tracey on 11-06-2023 Beta globulin Elph [Mass/Vol] 1.1 g/dL 0.7-1.3 [facility] Serum or plasma gamma globul in measurement by electrophoresis (mass/volume)Ordered By: Jane Tracey on 11-06-2023 Gamma globulin Elph [Mass/Vol] 1.0 g/dL 0.4-1.8 [facility] Sodium [Moles/volume] in Ser um or PlasmaOrdered By: Jane Tracey on 11-06-2023 Sodium [Moles/Vol] 136 mmol/L Normal 136-[address] [facility] Comment on above: Performed By: #### C REAT, ESR, CRP, HEPATIC, CK, CBC, [facility] #### [facility] [address] #### ANTI-KU AB, MITOM2, CH50, PAT, RNA POLYMR, C3, C4 #### [facility] , Urea nitrogen [Mass/volume] in Serum or PlasmaOrdered By: Jane Tracey on 11-06-2023 Urea nitrogen [Mass/Vol] 9 mg/dL Normal 7-25 [facility] Comment on above: Performed By: #### C REAT, ESR, CRP, HEPATIC, CK, CBC, [facility] #### [address] #### ANTI-KU AB, MITOM2, CH50, PAT, RNA POLYMR, C3, C4 #### [facility] , Vit. B12/Folate Profileon Folate 23.0 ng/mL Normal >5.9 [facility] Comment on above: Result Comment: Astrid te reference range: >5.9 ng/ml The WHO technical consultation on folate and vitamin b12 deficiencies has determined that folate concentrations less than 4 ng/ml are considered deficient. PERFORMED BY: [place] [address] PATHOLOGIST CASING PULLER RUIZ CLIFTON M.D. Performed By: #### C REAT, ESR, CRP, HEPATIC, CK, CBC, [facility] #### [address] #### ANTI-KU AB, MITOM2, CH50, PAT, RNA POLYMR, C3, C4 #### [facility] , Vitamin B12 ser/plasOrdered By: Jane Tracey on 11-06-2023 Cobalamin (Vitamin B12) [Mass/Vol] 353 pg/mL Normal 180-914 [facility] Comment on above: Performed By: #### C REAT, ESR, CRP, HEPATIC, CK, CBC, [facility] #### [place] [address] [place] #### ANTI-KU AB, MITOM2, CH50, PAT, RNA POLYMR, C3, C4 #### [facility] , BRIEF OP NOTon 09-05-2023 BRIEF OP NOT HNO ID: [id number] Author: SHIV HOLMAN MD Service: Radiology Author Type: Physician Type: Brief Op Note Filed: 09/05/2023 18:09 Note Text: Transjugular liver biopsy Please see dictated report under the Imaging tab in Chart Review. Shiv Holman MD Staff, Interventional Radiology Pager: [phone] 09/05/2023 6:09 PM Normal [facility] CBC W Auto Differential pane l (Bld)on 09-05-2023 Basophils (Bld) [#/Vol] 0.09 10*3/uL Normal <0.[address] [facility] Comment on above: Order Comment: Speci men Type: BLOOD SPECIMEN [facility] Facility: [facility] Address: [address] [place] [address] Performed By: #### 3 4528-0 #### [facility] CLIA [id number] [address] [place] [address] [place] Basophils/100 WBC (Bld) 1.2 % Normal [facility] Comment on above: Order Comment: Speci men Type: BLOOD SPECIMEN Ordering Facility: [facility] Address: [address] [place] [address] Performed By: #### 3 4528-0 #### [facility] CLIA [id number] [address] [place] [address] [place] Differential cell count method Nom (Bld) Auto Normal [facility] Comment on above: Order Comment: Speci men Type: BLOOD SPECIMEN [facility]ing Facility: [facility] Address: [address] [place] [address] Performed By: #### 3 4528-0 #### [facility] CLIA [id number] [address] [place] [address] [place] Eosinophils (Bld) [#/Vol] 0.20 10*3/uL Normal <0.[address] [facility] Comment on above: Order Comment: Speci men Type: BLOOD SPECIMEN Order[facility] Facility: [facility] Address: [address] Performed By: #### 3 4528-0 #### [facility] CLIA [id number] [address] [place] [address] [place] Eosinophils/100 WBC (Bld) 2.7 % Normal [facility] Comment on above: Order Comment: Speci men Type: BLOOD SPECIMEN Ordering Facility: [facility] Address: [address] Performed By: #### 3 4528-0 #### [facility] CLIA [id number] [address] [place] [address] [place] Erythrocyte distribution width (RBC) [Ratio] 12.3 % Normal 11.5-15.[address] [facility] Comment on above: Order Comment: Speci men Type: BLOOD SPECIMEN Order[facility] Facility: [facility] Address: [address] Performed By: #### 3 4528-0 #### [facility] CLIA [id number] [address] [place] [address] [place] Hematocrit (Bld) [Volume fraction] 44.9 % Normal 36.0-46.[address] [facility] Comment on above: Order Comment: Speci men Type: BLOOD SPECIMEN Ordering Facility: [facility] Address: [address] Performed By: #### 3 4528-0 #### [facility] CLIA [id number] [address] [place] [address] [place] Hemoglobin (Bld) [Mass/Vol] 14.6 g/dL Normal 11.5-15.[address] [facility] Comment on above: Order Comment: Speci men Type: BLOOD SPECIMEN Ordering Facility: [facility] Address: [address] Performed By: #### 3 4528-0 #### [facility] CLIA [id number] [address] [place] [address] [place] Immature granulocytes (Bld) [#/Vol] 0.03 10*3/uL Normal <0.[address] [facility] Comment on above: Order Comment: Speci men Type: BLOOD SPECIMEN Ordering Facility: [facility] Address: [address] Performed By: #### 3 4528-0 #### [facility] CLIA [id number] [address] [place] Immature granulocytes/100 WBC (Bld) 0.4 % Normal [facility] Comment on above: Order Comment: Speci men Type: BLOOD SPECIMEN [facility]ing Facility: [facility] Address: [address] [place], [place] [address] Performed By: #### 3 4528-0 #### [facility] CLIA [id number] [address] [place] [address] [place] Lymphocytes (Bld) [#/Vol] 2.00 10*3/uL Normal 1.00-4.[address] [facility] Comment on above: Order Comment: Speci men Type: BLOOD SPECIMEN Ordering Facility: [facility] Address: [address] [place], [place] [address] Performed By: #### 3 4528-0 #### [facility] CLIA [id number] [address] [place] Lymphocytes/100 WBC (Bld) 27.2 % Normal [facility] Comment on above: Order Comment: Speci men Type: BLOOD SPECIMEN Ordering Facility: [facility] Address: [address] [place], [place] [address] Performed By: #### 3 4528-0 #### [facility] CLIA [id number] [address] [place] [address] [place] MCH (RBC) [Entitic mass] 31.5 pg Normal 26.0-34.[address] [facility] Comment on above: Order Comment: Speci men Type: BLOOD SPECIMEN [facility]ing Facility: [facility] Address: [address] [place], [place] [address] Performed By: #### 3 4528-0 #### [facility] CLIA [id number] [address] [place] MCHC (RBC) [Mass/Vol] 32.5 g/dL Normal 30.5-36.0 [facility] Comment on above: Order Comment: Speci men Type: BLOOD SPECIMEN Ordering Facility: [facility] Address: [address] [place] [address] Performed By: #### 3 4528-0 #### [facility] CLIA [id number] [address] [place] MCV (RBC) [Entitic vol] 97.0 fL Normal 80.0-100.0 [facility] Comment on above: Order Comment: Speci men Type: BLOOD SPECIMEN [facility]ing Facility: [facility] Address: [address] [place], [place] [address] Performed By: #### 3 4528-0 #### [facility] CLIA [id number] [address] [place] [address] [place] Monocytes (Bld) [#/Vol] 0.35 10*3/uL Normal <0.[address] [facility] Comment on above: Order Comment: Speci men Type: BLOOD SPECIMEN Ordering Facility: [facility] Address: [address] [place], [place] [address] Performed By: #### 3 4528-0 #### [facility] CLIA [id number] [address] [place] Monocytes/100 WBC (Bld) 4.8 % Normal [facility] Comment on above: Order Comment: Speci men Type: BLOOD SPECIMEN Order[facility] Facility: [facility] Address: [address] Performed By: #### 3 4528-0 #### [facility] CLIA [id number] [address] [place] [address] [place] Neutrophils (Bld) [#/Vol] 4.69 10*3/uL Normal 1.45-7.[address] [facility] Comment on above: Order Comment: Speci men Type: BLOOD SPECIMEN Ordering Facility: [facility] Address: [address] [place] [address] Performed By: #### 3 4528-0 #### [facility] CLIA [id number] [address] [place] [address] [place] Neutrophils/100 WBC (Bld) 63.7 % Normal [facility] Comment on above: Order Comment: Speci men Type: BLOOD SPECIMEN [facility] Facility: [facility] Address: [address] [place], [place] [address] Performed By: #### 3 4528-0 #### [facility] CLIA [id number] [address] [place] [address] [place] Nucleated RBC (Bld) [#/Vol] 10*3/uL Normal <0.[address] [facility] Comment on above: Order Comment: Speci men Type: BLOOD SPECIMEN Order[facility] Facility: [facility] Address: [address] Performed By: #### 3 4528-0 #### [facility] CLIA [id number] [address] [place] [address] [place] Nucleated RBC/100 WBC (Bld) [Ratio] 0.0 /100 WBC Normal [facility] Comment on above: Order Comment: Speci men Type: BLOOD SPECIMEN [facility] Facility: [facility] Address: [address] [place], [place] [address] Performed By: #### 3 4528-0 #### [facility] CLIA [id number] [address] [place] [address] [place] Platelet mean volume (Bld) [Entitic vol] 9.8 fL Normal 9.0-12.[address] [facility] Comment on above: Order Comment: Speci men Type: BLOOD SPECIMEN Ordering Facility: [facility] Address: [address] [place] [address] Performed By: #### 3 4528-0 #### [facility] CLIA [id number] [address] [place] [address] [place] Platelets (Bld) [#/Vol] 356 10*3/uL Normal 150-[address] [facility] Comment on above: Order Comment: Speci men Type: BLOOD SPECIMEN [facility]ing Facility: [facility] Address: [address] [place], [place] [address] Performed By: #### 3 4528-0 #### [facility] CLIA [id number] [address] [place] [address] [place] RBC (Bld) [#/Vol] 4.63 10*6/uL Normal 3.90-5.20 [facility] Comment on above: Order Comment: Speci men Type: BLOOD SPECIMEN Ordering Facility: [facility] Address: [address] [place], [place] [address] Performed By: #### 3 4528-0 #### [facility] CLIA [id number] [address] [place] [address] [place] WBC (Bld) [#/Vol] 7.36 10*3/uL Normal 3.70-11.00 [facility] Comment on above: Order Comment: Speci men Type: BLOOD SPECIMEN [facility] Facility: [facility] Address: [address] [place], [place] [address] Performed By: #### 3 4528-0 #### [facility] CLIA [id number] [address] [place] [address] [place] Comprehensive metabolic 2000 panelon 09-05-2023 Albumin [Mass/Vol] 4.7 g/dL Normal 3.9-4.9 [facility] Comment on above: Order Comment: Speci men Type: BLOOD SPECIMENOrdering Facility: [facility] Address: [address] [place] [address] Performed By: #### 2 4323-8 ####[facility] [id number] [place] [address] [place] ALP [Catalytic activity/Vol] 57 U/L Normal 34-[address] [facility] Comment on above: Order Comment: Speci men Type: BLOOD SPECIMENOrdering Facility: [facility] Address: [address] [place] [address] Performed By: #### 2 4323-8 ####[facility] [id number] [place] [address] [place] ALT [Catalytic activity/Vol] 20 U/L Normal 7-[address] [facility] Comment on above: Order Comment: Speci men Type: BLOOD SPECIMENOrdering Facility: [facility] Address: [address] [place] [address] Performed By: #### 2 4323-8 ####[facility] [id number] [place] [address] [place] Anion gap [Moles/Vol] 10 mmol/L Normal 9-18 [facility] Comment on above: Order Comment: Speci men Type: BLOOD SPECIMENOrdering Facility: [facility] Address: [address] [place] [address] Performed By: #### 2 4323-8 ####[facility] [id number] [place] [address] [place] AST [Catalytic activity/Vol] 21 U/L Normal 13-[address] [facility] Comment on above: Order Comment: Speci men Type: BLOOD SPECIMENOrdering Facility: [facility] Address: [address] [place] [address] Performed By: #### 2 4323-8 ####[facility] [id number] [place] [address] [place] Bilirubin [Mass/Vol] 0.4 mg/dL Normal 0.2-1.3 [facility] Comment on above: Order Comment: Speci men Type: BLOOD SPECIMENOrdering Facility: [facility] Address: [address] [place] [address] Performed By: #### 2 4323-8 ####[facility] [id number] [place] [address] [place] Calcium [Mass/Vol] 10.3 mg/dL High 8.5-10.2 [facility] Comment on above: Order Comment: Speci men Type: BLOOD SPECIMENOrdering Facility: [facility] Address: [address] [place] [address] Performed By: #### 2 4323-8 ####[facility] [id number] [place] [address] [place] Chloride [Moles/Vol] 104 mmol/L Normal 97-105 [facility] Comment on above: Order Comment: Speci men Type: BLOOD SPECIMENOrdering Facility: [facility] Address: [address] [place] [address] Performed By: #### 2 4323-8 ####[facility] [id number] [place] [address] [place] CO2 [Moles/Vol] 25 mmol/L Normal 22-[address] [facility] Comment on above: Order Comment: Speci men Type: BLOOD SPECIMENOrdering Facility: [facility] Address: [address] [place] [address] Performed By: #### 2 4323-8 ####[facility] [id number] [place] [address] [place] Creatinine [Mass/Vol] 0.66 mg/dL Normal 0.58-0.96 [facility] Comment on above: Order Comment: Jim etienne Type: BLOOD SPECIMENOrdering Facility: [facility] Address: [address] [place] [address] Performed By: #### 2 4323-8 ####[facility] [id number] [place] [address] [place] Creatinine and Glomerular filtration rate.predicted panel (S/P/Bld) 123 mL/min/1.73m??? Normal >=[address] [facility] Comment on above: Order Comment: Jim etienne Type: BLOOD SPECIMENOrdering Facility: [facility] Address: [address] [place] [address] Result Comment: Ebony mated Glomerular Filtration Rate [...] accurately reflect actual GFR. Performed By: #### 2 4323-8 ####[facility] [id number] [place] [address] [place] Glucose [Mass/Vol] 105 mg/dL High 74-99 [facility] Comment on above: Order Comment: Jim etienne Type: BLOOD SPECIMENOrdering Facility: [facility] Address: [address] [place] [address] Result Comment: The [place] Diabetes Association (ADA) provides guidance for cutoff [...] Standards of Medical Care in Diabetes 2016, [place] [employer] Association. Diabetes Care. 2016.39(Suppl 1). Performed By: #### 2 4323-8 ####[facility] [id number] [place] [address] [place] Potassium [Moles/Vol] 4.7 mmol/L Normal 3.7-5.1 [facility] Comment on above: Order Comment: Speci men Type: BLOOD SPECIMENOrdering Facility: [facility] Address: [address] [place] [address] Performed By: #### 2 4323-8 ####[facility] [id number] [place] [address] [place] Protein [Mass/Vol] 8.0 g/dL Normal 6.3-8.0 [facility] Comment on above: Order Comment: Speci men Type: BLOOD SPECIMENOrdering Facility: [facility] Address: [address] [place] [address] Performed By: #### 2 4323-8 ####[facility] [id number] [place] [address] [place] Sodium [Moles/Vol] 139 mmol/L Normal 136-144 [facility] Comment on above: Order Comment: Speci men Type: BLOOD SPECIMENOrdering Facility: [facility] Address: [address] [place] [address] Performed By: #### 2 4323-8 ####[facility] [id number] [place] [id number] [place] Urea nitrogen [Mass/Vol] 7 mg/dL Normal 7-[address] [facility] Comment on above: Order Comment: Speci men Type: BLOOD SPECIMENOrdering Facility: [facility] Address: [address] [place] [address] Performed By: #### 2 4323-8 ####[facility] [id number] [address] [address] [place] HISTORY PHYSICALon HISTORY PHYSICAL HNO ID: [id number] Author: SHIV HOLMAN MD Service: Radiology Author Type: Physician Type: H&P Filed: 09/05/2023 16:39 Note Text: UPDATED PROCEDURAL SEDATION HISTORY AND PHYSICAL EXAMINATION SERVICE DATE: 09/05/2023 SERVICE TIME: 4:30 PM PHYSICAL EXAM MUST BE COMPLETED ON ADMISSION PROCEDURE: Transjugular liver biopsy with pressures Procedure Indications: Hepatic fibrosis The History and Physical (completed in the past 30 days) has been reviewed and the patient has been examined. The contents accurately reflect the patient's condition with the following additions or revisions since the HANDP was completed. ASA Class: ASA Class:: Patient with mild systemic disease Examination indicates no changes. AIRWAY: Airway Visualization of Uvula: Yes Mouth opening greater than 2 fingerbreadths: Yes Neck Full Range of Motion: Yes LUNGS: Lungs clear to auscultation CARDIAC: Regular rhythm,Regular rate Provisional Diagnosis/Treatment Plan: TJLBX w pressures SEDATION GOAL: Moderate This HANDP can be found in the Electronic Medical Record dated 09/05/23. SIGNATURE: KALLIE Dumont PATIENT NAME: Rica Stout DATE: September 05, 2023 TIME: 4:30 PM Normal [facility] IR TRANSJUG LIVER BX W/PRESS on 09-05-2023 IR TRANSJUG LIVER BX W/PRESS * * *Final Report* * * DATE OF EXAM: Sep 05 2023 5:37PM [facility] 0808 - IR TRANSJUG LIVER BX W/PRESS / PROCEDURE REASON: K74.02-Advanced hepatic fibrosis * * * * Physician Interpretation * * * * PROCEDURE: TRANSJUGULAR LIVER BIOPSY WITH PRESSURE MEASUREMENTS Procedural Personnel Attending physician(s): Shiv Holman M.D. Fellow physician(s): None Resident physician(s): None Advanced practice provider(s): None Medical Student(s): None Pre-procedure diagnosis: Hepatic steatosis Post-procedure diagnosis: Same Indication: Staging of fibrosis/cirrhosis Additional clinical history: None PROCEDURE SUMMARY: - Venous access with ultrasound guidance - Hepatic venography - Pressure measurements - Transjugular liver biopsy with fluoroscopic guidance - Additional procedure(s): None PROCEDURE DETAILS: Pre-procedure Consent: Risks, benefits, treatment options, potential complications and personnel to be involved were discussed (including the risks of radiation exposure, contrast and anesthesia administration, and any equipment needed for the procedure to ensure best possible outcome) with the patient and all questions were answered and consent was obtained prior to procedure. Premedicated for contrast allergy: n/a Transfusion of blood products: No Medication reconciliation: The patient's medications and allergies were reviewed in the electronic medical record and reconciled to the proposed procedure/treatment. Madalyn-procedure discussion: The appropriate elements of the pre-procedure discussion, safety check list and sign-out were performed. Time out: A time out was performed immediately prior to procedure start with the nursing and interventional team, correctly identifying the name, date of , procedure, anatomy (including marking of site and side if applicable), patient position, procedure consent form, relevant diagnostic and radiology test results, antibiotic administration if applicable, safety precautions, and procedure-specific equipment needs. Start of procedure: 1705 End of procedure: 1736 Patient position: Supine Preparation: The site was prepared and draped using maximal sterile barrier technique including cutaneous antisepsis. Contrast: Contrast agent: Omnipaque 240 Contrast volume (mL): 6 Image Guidance: Fluoroscopic and sonographic RADIATION DOSE: FLUOROSCOPIC RADIATION SUMMARY: Plane A, Air Kerma: 21.1 mGy Dose Area Product (DAP): 425.93 uGym2 Fluoro Time: 3:12 min:sec Radiation dose exceed 5 Gy: No If radiation dose exceeded 5 Gy, was counseling and instructional brochure provided: N/A ANESTHESIA/SEDATION: Level of anesthesia/sedation: Moderate sedation (conscious sedation) Anesthesia/sedation administered by: Independent trained observer under attending supervision with continuous monitoring of the patient?s level of consciousness and physiologic status Total intra-service sedation time (minutes): 41 Local anesthesia: 2 % lidocaine Access Local anesthesia was administered. The vessel was sonographically evaluated and determined to be patent. Real time ultrasound was used to visualize needle entry into the vessel and a permanent image was stored. A 9 F vascular sheath was placed. Vein accessed: Distal right subclavian vein (unable to advance the guidewire with internal jugular vein puncture) Access technique: Micropuncture set with 21 gauge needle Venography Vein catheterized: Right hepatic vein Indication for venography: Document catheter position Findings: Appropriate position for biopsy Pressure measurements Pressure measurements were obtained via end-hole catheter. Mean right atrial pressure (mmHg): 2 Mean free hepatic vein pressure (mmHg): 3 Mean wedged hepatic vein pressure (mmHg): 8 Biopsy Samples were obtained of the liver parenchyma from the hepatic vein using the transjugular liver biopsy set. Core needle biopsy device: Argon TLAB 7 F Transjugular Liver Biopsy System (18 G needle) Core needle size (gauge): 18 G Number of core specimens: 2 Specimen preparation: Formalin Additional Details Additional description of procedure: None Equipment details: None Specimens removed: Biopsy samples as detailed above. Surgical pathology Estimated blood loss (mL): Less than 10 Standardized report: SIR_TransjugularLiverBio psy_v3 Closure The sheath was removed and hemostasis was achieved with manual compression and no additional aid. A sterile bandage was applied. COMPLICATIONS: There were no immediate complications and no other complications. CONCLUSION: The patient was comfortable and was transferred to the recovery room in stable condition. The procedure was performed by the attending radiologist, without an program services assistant. The attending radiologist performed the following procedural activities: Entire procedure IMPRESSION: TRANSJUGULAR LIVER BIOPSY OBTAINED. THE CORRECTED (more content not included)... Normal [facility] NURSING PROGon 09-05-2023 NURSING PROG HNO ID: [id number] Author: LORI VAZQUEZ RN Service: ? Author Type: Registered Nurse Type: Nursing Progress Note Filed: 09/05/2023 19:56 Note Text: 1939 Dr. Kern at bedside to assess pt. Abd soft, no c/o pain. Ok to d/c at 1999. Lori Vazquez RN Normal [facility] PT EDon 09-05-2023 PT ED HNO ID: [id number] Author: ANISHA MASON RN Service: Nursing Author Type: Registered Nurse Type: Patient Education Filed: 09/05/2023 16:52 Note Text: AMBULATORY PATIENT EDUCATION TOPIC: Survival Skills: HEALTH PROMOTION: Complication prevention READINESS TO LEARN COGNITIVE ABILITY: Alert and oriented MOTIVATION TO LEARN: Interested FAMILY SUPPORT: High - Very involved in pt care INSTRUCTION PROVIDED TO: Patient and Mother PATIENT LEARNS BEST BY: Multiple Methods FACTORS AFFECTING LEARNING: None PHYSICAL LIMITATIONS AFFECTING LEARNING: None LEARNING RESPONSE DIAGNOSIS: advanced liver cirrhosis METHOD OF INSTRUCTION: Verbal instruction PATIENT / FAMILY RESPONSE: Information received as demonstrated by interest and questions FOLLOW-UP PLAN: Complete - No need for follow-up SUPPLEMENTAL MATERIAL: None REFERRAL (RECOMMENDATION): None Electronically Signed By: Anisha Mason RN In Department: HOSP MAIN [id number] Normal [facility] PT panel Coag (PPP)on 2023 INR Coag (PPP) [Relative time] 1.0 {INR} Normal 0.9-1.[address] [facility] Comment on above: Order Comment: Jim etienne Type: BLOOD SPECIMEN [facility] Address: [address] [place] [address] Result Comment: Adrienne min K Antagonist (VKA) Therapeutic Range: INR 2 to 3 (Target INR of 2.5) Note: For patients treated with VKA drugs, such as warfarin, the [place] [employer]icians 2012 Guideline recommends [...] Chest 2012, 141:7S-47S Mamadou RA, et al. [facility] 2017, 70: 252-289 Performed By: #### 3 4528-0 #### [facility] CLIA [id number] [address] [place] [address] [place] PT Coag (PPP) [Time] 10.9 s Normal 9.7-13.0 [facility] Comment on above: Order Comment: Jim etienne Type: BLOOD SPECIMEN [facility] Address: [address] [place] [id number] Performed By: #### 3 4528-0 #### [facility] CLIA [id number] [address] [place] [address] OF [facility] NURSING PROGon 08-29-2023 NURSING PROG HNO ID: [id number] Author: MARSHAL POZO RN Service: Nursing Author Type: Registered Nurse Type: Nursing Progress Note Filed: 08/29/2023 10:50 Note Text: Pre-procedure instructions: Contacted Rica and confirmed appt. for TJL Biopsy scheduled on September 05, at [facility]. I will wait while you get a pen and paper, if instructions are not followed your procedure may need to be cancelled or rescheduled. Diet: Do not eat solid food after 6:00am on the day of your procedure. You may have water until your arrival time. Medications: IF ok with your Prescribing Provider: RADIOLOGY RECOMMENDS THESE MEDICATION RESTRICTIONS : Take all medications as usual Medication pumps: Insulin pumps must be removed before entering the procedure room. Do you wear Neulasta Onpro? No If yes, the device must be removed before entering the procedure room. Contrast Dye Prep: Do you have a contrast dye allergy? No Labs: Lab work needs to be drawn prior to 09/05 at any [facility]. If the labs are drawn same day as procedure, please report to J1-4 or S-15, 1 hour prior to arrival time to ensure they are resulted by your scheduled start time. Arrival: Please bring your Photo ID and Insurance Card. A general consent may need to be signed. Arrival at 1:45pm to desk QB-1 ([facility]) and check in for your procedure. Weed Cutter/Transportation: How will you be arriving for your procedure? Private car. If you will be arriving at [facility] via ambulance or public transportation, please call to discuss. You will need a responsible adult to accompany you to and from the procedure. Your regional refrigerated cdl truck driver is required to stay with you until you are taken into the Procedure room. If you develop any of the following symptoms before your procedure, please call [phone]. Chills, joint pain, rash, sore throat, cough, [...] discuss. Written instructions provided to patient via LinkedIn If you have any questions please call [phone] ___ Normal [facility] CNPRaina 08-13-2023 CNPN Telephone (iVengo) -------- RICA STOUT ([id number]) 1995 F Date Time Provider Department 08/13/23 JOEL NOE [facility] During your visit today, we recorded the [...] Encounter Status:Closed by JOEL NOE on 08/13/23 [facility] CNOVon 08-08-2023 CNOV Office Visit (PATRICK ) -------- RICA STOUT ([id number]) 1995 F Date Time Provider Department 08/08/23 [...] Araujo CNP, Patient's Name: Rica Stout [address] [place] [address] Accompanied by: mother This consult was requested for my medical opinion regarding the rheumatologic evaluation of the patient's rash/+PAT problems, and my final recommendations will be communicated to the requesting health care provider by way of the shared medical record for internal providers or letter via the [employer] for external providers. 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 PATIENT REPORTS: Cardiac stress test:barber Breast exam:negative Pap exam: normal, last menses [...] HTN, a.fib;children/sibli (more content not included)... Normal [facility] NURSING PROGon 07-23-2023 NURSING PROG HNO ID: [id number] Author: Dipti Garza, RN Service: Nursing Author Type: Registered Nurse Type: Nursing Progress Note Filed: 07/23/2023 3:49 PM Note Text: Pre-procedure instructions: Contacted Rica and confirmed appt. for transjugular liver biopsy scheduled on Saturday, 07/30, at [facility]. I will wait while you [...] be drawn prior to 07/30 at any [facility]. If the labs are drawn same day as procedure, please report to J1-4 or S-15, 3 hours prior to procedure start time (11:30 AM) to ensure they are resulted by your scheduled start time. Arrival: Please bring your Photo ID and Insurance Card. A general consent may need to be signed. Arrival at 1:00 PM to desk QB-1 ([facility]) and check in for your procedure. Weed Cutter/Transportation: How will you be arriving for your procedure? Private car. If you will be arriving at [facility] via ambulance or public transportation, please call to discuss. You will need a responsible adult to accompany you to and from the procedure. Your regional refrigerated cdl truck driver is required to stay with you until you are taken into the Procedure room. If you develop any of the following symptoms before your procedure, please call [phone]. Chills, joint pain, rash, sore throat, cough, [...] discuss. Written instructions provided to patient via [employer] If you have any questions please call [phone] ___ Normal [facility] Provider Letteron 07-18-2023 Provider Letter (Inserted Image. Mercedes ble to display) July 18, 2023 RICA STOUT [address] [place] [address] : 1995 Dear Rica, During review of your medical record we noticed that a follow up appointment was not scheduled. We have attempted to reach you to schedule a appointment with [facility]. Please call our office today to schedule this appointment. Sincerely, [facility] [phone] Normal [facility] Office Visiton 07-09-2023 Follow-up visit [id number] Louis Stout 1995 F Date Provider Department Center 07/09/2023 NETTIE MARTE SANTANA [facility] Family History Problem Relation Age of Onset Coronary artery disease Maternal Grandmother Peripheral vascular disease Maternal Grandmother Hypertension Paternal Grandmother Atrial fibrillation Paternal Grandmother Family Status - Relation Status Age at Maternal Grandmother Paternal Grandmother Level of Service:[address] [place] OFFICE/OUTPATIENT NEW MODERATE MDM 45 MINUTES Normal [facility] Cryoglobulin with Quant Refl exon 07-03-2023 Cryoglobulin, Ql, Serum Normal None detected [facility] Comment on above: Result Comment: None Detected at 72 hours This test was developed and its performance characteristics determined by [facility]. It has not been cleared or approved by the Food and Drug Administration. Performed at: - [address] [id number] Hot End Operator: Breezy Jones PhD, Phone: [phone] PERFORMED BY: [place] [address] PATHOLOGIST CASING PULLER RUIZ CLIFTON M.D. Performed By: #### C REAT, ESR, CRP, HEPATIC, CK, CBC, MISC LAB #### [place] [address] [place] #### ANTI-KU AB, MITOM2, CH50, PAT, RNA POLYMR, C3, C4 #### [facility] , IgA [Mass/volume] in Serum o r PlasmaOrdered By: Jane Tracey on 07-03-2023 IgA [Mass/Vol] 473 mg/dL 87-352 [facility] IgG [Mass/volume] in Serum o r PlasmaOrdered By: Jane Tracey on 07-03-2023 IgG [Mass/Vol] 1101 mg/dL 586-1602 [facility] IgM [Mass/volume] in Serum o r PlasmaOrdered By: Jane Tracey on 07-03-2023 IgM [Mass/Vol] 315 mg/dL 26-217 [facility] Comment on above: Performed at: - [facility] [address] [place], [place] [id number] Director: Breezy Jones PhD, Phone: [phone] Immunofixation,Serumon 07-03 Immunofixation, Serum Normal . [facility] Comment on above: Result Comment: No m onoclonality detected. Performed By: #### C REAT, ESR, CRP, HEPATIC, CK, CBC, MISC LAB #### [address] #### ANTI-KU AB, MITOM2, CH50, PAT, RNA POLYMR, C3, C4 #### [facility] , Immunoglobulin A, Serum 473 mg/dL High 87-352 [facility] Comment on above: Performed By: #### C REAT, ESR, CRP, HEPATIC, CK, CBC, MISC LAB #### [address] #### ANTI-KU AB, MITOM2, CH50, PAT, RNA POLYMR, C3, C4 #### [facility] , Immunoglobulin G 1101 mg/dL Normal 586-1602 [facility] Comment on above: Performed By: #### C REAT, ESR, CRP, HEPATIC, CK, CBC, MISC LAB #### [place] [address] [place] #### ANTI-KU AB, MITOM2, CH50, PAT, RNA POLYMR, C3, C4 #### [facility] , Immunoglobulin M, Serum 315 mg/dL High 26-217 [facility] Comment on above: Result Comment: Perf ormed at: - [facility] [place] [address] [place], [place] [id number] Hot End Operator: Breezy Jones PhD, Phone: [phone] Performed By: #### C REAT, ESR, CRP, HEPATIC, CK, CBC, MISC LAB #### [address] [place] [address] [place] #### ANTI-KU AB, MITOM2, CH50, PAT, RNA POLYMR, C3, C4 #### [facility] , No Panel InformationOrdered By: Jane Tracey on 07-03-2023 Serum Immunofixation See comment . [facility] Comment on above: No monoclonality det ected. Whole Blood Zinc 606 ug/dL 440-860 [facility] Comment on above: This test was develo ped and its performance characteristicsdetermined by [facility]. It has not been cleared orapproved by the Food and Drug Administration.Performed at: [address] [id number] Director: Lisa Ramos MD, Phone: [phone] Serum cryoglobulin detection Ordered By: Jane Tracey on 07-03-2023 Cryoglobulin Ql (S) See comment None detected [facility] Comment on above: None Detected at 72 hoursThis test was developed and its performance characteristicsdetermined by [facility]. It has not been cleared orapproved by the Food and Drug Administration.Performed at: [address] [id number] Director: Breezy Jones PhD, Phone: [phone] Zinc, Whole Bloodon 07-03-20 23 Zinc, Whole Blood 606 ug/dL Normal 440-860 [facility] Comment on above: Result Comment: This test was developed and its performance characteristics determined by [facility]. It has not been cleared or approved by the Food and Drug Administration. Performed at: [facility] [address] [id number] Hot End Operator: Lisa Ramos MD, Phone: [phone] Performed By: #### C REAT, ESR, CRP, HEPATIC, CK, CBC, MISC LAB #### [facility] [address] [place] [address] #### ANTI-KU AB, MITOM2, CH50, PAT, RNA POLYMR, C3, C4 #### [facility] , Activated partial thrombopla stin time (aPTT) in platelet poor plasma by coagulation aOrdered By: Jane Tracey on 06-12-2023 aPTT Coag (PPP) [Time] 28.5 s 25.1-36.5 [facility] Comment on above: A hematocrit value g reater than 55% may lead to inaccurate results in coagulation testing. Patients having hematocrit values >55% require a special collection tube for coagulation studies. Please contact the laboratory at [phone] guided bone marrow bx/asp iron 06-12-2023 CT guided bone marrow bx/aspir [facility] Main [place] [address] [place] [address] CT Scan Report Signed Patient: Rica Stout MR#: [id number] : 1995 Acct:[id number] Age/Sex: 27 / F ADM Date: 06/12/23 Loc: CT Room: Type: [facility] Attending Dr: Jane Tracey MD Copies to: Jane Tracey MD Ordering Provider: Jane Tracey MD Date of Service: 06/12/23 CT/CT guided needle placement: bone marrow biopsy ([id number]) CT/CT guided bone marrow bx/aspir: . CT [...] biopsy. Impression dictated by: Marc Barahona Jr., D.O.06/12/2023 1:18 PM Dictation Location: [place] [address] Transcribed By: [facility] 06/12/238 Dictated By: Marc Barahona Jr, DO 06/12/231317 Signed By: 06/12/231317 Normal [facility] Coagulation Profileon 2022 aPTT Coag (Bld) [Time] 28.5 s Normal 25.1-36.5 [facility] Comment on above: Order Comment: NEED FOR CT GUIDED BIOPSY Result Comment: A he matocrit value greater than 55% may lead to inaccurate results in coagulation testing. Patients having hematocrit values >55% require a special collection tube for coagulation studies. Please contact the laboratory at [phone] for redraw instructions. PERFORMED BY: [place] [address] PATHOLOGIST CASING PULLER RUIZ CLIFTON M.D. Performed By: #### C REAT, ESR, CRP, HEPATIC, CK, CBC, MISC LAB #### [address] #### ANTI-KU AB, MITOM2, CH50, PAT, RNA POLYMR, C3, C4 #### [facility] , INR in Platelet poor plasma by Coagulation assayOrdered By: Jane Tracey on 06-12-2023 INR Coag (PPP) [Relative time] 1.1 {INR} Normal [facility] Comment on above: INR Therapeutic Rang [...] with mechanical heart valves: 3 - 4.5 Order Comment: NEED FOR CT GUIDED BIOPSY [...] 3 - 4.5 Performed By: #### C REAT, ESR, CRP, HEPATIC, CK, CBC, MISC LAB #### [facility] [address] #### ANTI-KU AB, MITOM2, CH50, PAT, RNA POLYMR, C3, C4 #### [facility] , Antione 06-12-2023 L ---- Specimen: [id number] Received: 06/12/23 Status: VIKASH Hess Num: [id number] Spec Type: Bone Marro Subm Dr: Marc [...] Account Attending Physician Rica Stout 27/F CT [id number] Jane Tracey MD SPEC NUM: [id number] RECD: 06/12/23 STATUS: VIKASH HESS NUM: [id number] LAURIE: 06/12/23- SUBM DR: Marc Barahona Jr, DO ENTERED: 06/12/[address] [facility] [address]: Jane Tracey MD SPEC TYPE: [...] [id number] Received: 06/12/23 Status: VIKASH Hess Num: [id number] Spec Type: Bone Marro Subm Dr: Marc Barahona, , DO Tissues: A Bone Marrow Aspirate (Clot) (RT ILIAC) B Bone Marrow Biopsy/Core (RT ILIAC) Procedures: Reticulum I, Peripheral Smr/2, Iron/3, HE/4, Gross/Micro L4/2, Bm Smear/2, CD138/2, CD20, CD3, CD31, CD34, CD68, E CADHERIN, Decalcification, PAS - Hemat, Bone Marrow TP, GIEMSA STN/5, SMEARS Patient: Rica Stout [id number] (Continued) Specimen: [id number] Received: 06/12/23 (Continued) Pathological Diagnosis (Continued) Signed (signature on file) Dylan Call MD 06/22/23 1844 Specimen: [id number] Received: 06/12/23 Status: VIKASH Hendrixcrow Num: [id number] Spec Type: Bone Marro Subm Dr: Marc Barahona, Jr, DO Tissues: A Bone Marrow Aspirate (Clot) (RT ILIAC) B Bone Marrow Biopsy/Core (RT ILIAC) Procedures: Reticulum I, Peripheral Smr/2, Iron/3, HE/4, Gross/Micro L4/2, Bm Smear/2, CD138/2, CD20, CD3, CD31, CD34, CD68, E CADHERIN, Decalcification, PAS - Hemat, Bone Marrow TP, GIEMSA STN/5, SMEARS Patient: Rica Stout [id number] (Continued) Specimen: [id number] Received: 06/12/23 (Continued) Pathological [...] tiny cyt (more content not included)... Normal [facility] Platelets [#/volume] in Bloo d by Automated countOrdered By: Jane Tracey on 06-12-2023 Platelets (Bld) [#/Vol] 269 10*3/uL Normal 150-450 [facility] Comment on above: Result Comment: PERF ORMED BY: [place] [address] PATHOLOGIST CASING PULLER RUIZ CLIFTON M.D. Performed By: #### C REAT, ESR, CRP, HEPATIC, CK, CBC, MISC LAB #### [address] #### ANTI-KU AB, MITOM2, CH50, PAT, RNA POLYMR, C3, C4 #### [facility] , Prothrombin time (PT)Ordered By: Jane Tracey on 06-12-2023 PT Coag (PPP) [Time] 13.0 s High 9.0-12.9 [facility] Comment on above: A hematocrit value g reater than 55% may lead to inaccurate results in coagulation testing. Patients having hematocrit values >55% require a special collection tube for coagulation studies. Please contact the laboratory at [phone] for redraw instructions. Order Comment: NEED FOR CT GUIDED BIOPSY Result Comment: A he matocrit value greater than 55% may lead to inaccurate results in coagulation testing. Patients having hematocrit values >55% require a special collection tube for coagulation studies. Please contact the laboratory at [phone] for redraw instructions. Performed By: #### C REAT, ESR, CRP, HEPATIC, CK, CBC, MISC LAB #### [facility] [address] [place] [address] [place] #### ANTI-KU AB, MITOM2, CH50, PAT, RNA POLYMR, C3, C4 #### [facility] , Office Visiton 06-10-2023 Follow-up visit [id number] Louis Stout 1995 F Date Provider Department Center 06/10/2023 Janet-MARTHA GRAY CARD [facility] Family History Problem Relation Age of Onset Coronary artery disease Maternal Grandmother Peripheral vascular disease Maternal Grandmother Hypertension Paternal Grandmother Atrial fibrillation Paternal Grandmother Family Status - Relation Status Age at Maternal Grandmother Paternal Grandmother Level of Service:49936 [place] OFFICE/OUTPATIENT ESTABLISHED MOD MDM 30-39 MIN Normal [facility] PAT Antinuclear Antibodieson 05-30-2023 Antinuclear Abs, IFA Positive Critically abnormal . [facility] Comment on above: Result Comment: Nega tive <1:80 Borderline 1:80 Positive >1:80 Performed By: #### C REAT, ESR, CRP, HEPATIC, CK, CBC, MISC LAB #### [facility] [address] [place] [address] [place] #### ANTI-KU AB, MITOM2, CH50, PAT, RNA POLYMR, C3, C4 #### [facility] , Note 1 Normal . [facility] Comment on above: Result Comment: Holly danielle Potential Disease Association Homogeneous Systemic Lupus Erythematosus, Drug Induced Systemic Lupus Erythematosus, Chronic Autoimmune hepatitis, Juvenile Idiopathic Arthritis Speckled Sjogren Syndrome, Systemic Lupus Erythematosus, Subacute Cutaneous Lupus, Lupus, Congenital Heart Block, Mixed Connective Tissue Disease, Scleroderma-diffuse, Scleroderma-Autoimmune Myositis Overlap Syndrome, Systemic Lupus Csfwhxipaowrs-Piotuimovfj-Ipxogeeica Myositis Overlap Syndrome, Systemic Autoimmune Rheumatic Disease, [...] Linear Scleroderma, Antiphospholipid Syndrome Performed at: - [facility] [id number] Hot End Operator: Breezy Jones PhD, Phone: [phone] Performed By: #### C REAT, ESR, CRP, HEPATIC, CK, CBC, MISC LAB #### [place] [address] [place] #### ANTI-KU AB, MITOM2, CH50, PAT, RNA POLYMR, C3, C4 #### [facility] , Speckled Pattern 1:160 High . [facility] Comment on above: Result Comment: ICAP nomenclature: [id number],5,29 Performed By: #### C REAT, ESR, CRP, HEPATIC, CK, CBC, MISC LAB #### [place] [address] [place] #### ANTI-KU AB, MITOM2, CH50, PAT, RNA POLYMR, C3, C4 #### [facility] , ANCA Profile (ANCA+MPO+PR3)o n 05-30-2023 Antimyeloperoxidase (MPO) Abs <0.2 Normal 0.0-0.9 [facility] Comment on above: Performed By: #### C REAT, ESR, CRP, HEPATIC, CK, CBC, MISC LAB #### [place] [address] [place] #### ANTI-KU AB, MITOM2, CH50, PTA, RNA POLYMR, C3, C4 #### [facility] , Atypical pANCA <1:20 Normal Neg:<1:20 [facility] Comment on above: Result Comment: The atypical pANCA pattern has been observed in a significant percentage of patients with ulcerative colitis, primary sclerosing cholangitis and autoimmune hepatitis. Performed at: - [facility] [id number] Hot End Operator: Lisa Ramos MD, Phone: [phone] Performed at: [facility] [id number] Hot End Operator: Breezy Jones PhD, Phone: [phone] Performed By: #### C REAT, ESR, CRP, HEPATIC, CK, CBC, MISC LAB #### [place] [address] [place] #### ANTI-KU AB, MITOM2, CH50, PAT, RNA POLYMR, C3, C4 #### [facility] , Cytoplasmic (C-ANCA) <1:20 Normal Neg:<1:20 [facility] Comment on above: Performed By: #### C REAT, ESR, CRP, HEPATIC, CK, CBC, MISC LAB #### [place] [address] [place] #### ANTI-KU AB, MITOM2, CH50, PAT, RNA POLYMR, C3, C4 #### [facility] , Perinuclear (P-ANCA) <1:20 Normal Neg:<1:20 [facility] Comment on above: Result Comment: The presence of positive fluorescence exhibiting P-ANCA or C-ANCA patterns alone is not specific for the diagnosis of Riri's Granulomatosis (WG) or microscopic polyangiitis. Decisions about treatment should not be based solely on ANCA IFA results. The International ANCA Group Consensus recommends follow up testing of positive sera with both WA- 3 and MPO-ANCA enzyme immunoassays. As many as 5% serum samples are positive only by EIA. Ref. AM J Clin Pathol 1999;111:507-513. Performed By: #### C REAT, ESR, CRP, HEPATIC, CK, CBC, MISC LAB #### [place] [address] [place] #### ANTI-KU AB, MITOM2, CH50, PAT, RNA POLYMR, C3, C4 #### [facility] , Proteinase 3 (PR3) Antibodies <0.2 Normal 0.0-0.9 [facility] Comment on above: Result Comment: PERF ORMED BY: [place] [address] PATHOLOGIST CASING PULLER RUIZ CLIFTON M.D. Performed By: #### C REAT, ESR, CRP, HEPATIC, CK, CBC, MISC LAB #### [place] [address] [place] #### ANTI-KU AB, MITOM2, CH50, PAT, RNA POLYMR, C3, C4 #### [facility] , Alanine aminotransferase [En zymatic activity/volume] in Serum or PlasmaOrdered By: Jane Tracey on 05-30-2023 ALT [Catalytic activity/Vol] 24 U/L Normal 7-52 [facility] Comment on above: Performed By: #### C REAT, ESR, CRP, HEPATIC, CK, CBC, MISC LAB #### [facility] [address] [place] [address] [place] #### ANTI-KU AB, MITOM2, CH50, PAT, RNA POLYMR, C3, C4 #### [facility] , Albumin [Mass/volume] in Ser um or PlasmaOrdered By: lilia Tracey on 05-30-2023 Albumin [Mass/Vol] 4.1 g/dL Normal 2.9-4.[address] [facility] Comment on above: Performed By: #### C REAT, ESR, CRP, HEPATIC, CK, CBC, MISC LAB #### [place] [address] [place] #### ANTI-KU AB, MITOM2, CH50, PAT, RNA POLYMR, C3, C4 #### [facility] , Albumin [Mass/volume] in Ser um or Plasma by Bromocresol green (BCG) dye binding methoOrdered By: lilia Hungmaranda on 05-30-2023 Albumin BCG dye [Mass/Vol] 5.2 g/dL 3.5-5.7 [facility] Alkaline phosphatase [Enzyma tic activity/volume] in Serum or PlasmaOrdered By: lilia maranda on 05-30-2023 ALP [Catalytic activity/Vol] 115 U/L High 34-104 [facility] Comment on above: Performed By: #### C REAT, ESR, CRP, HEPATIC, CK, CBC, MISC LAB #### [facility] [address] [place] [address] [place] #### ANTI-KU AB, MITOM2, CH50, PAT, RNA POLYMR, C3, C4 #### [facility] , Aspartate aminotransferase [ Enzymatic activity/volume] in Serum or PlasmaOrdered By: Jane Tracey on 05-30-2023 AST [Catalytic activity/Vol] 32 U/L Normal 13-39 [facility] Comment on above: Performed By: #### C REAT, ESR, CRP, HEPATIC, CK, CBC, [facility] #### [facility] [address] [place] [address] [place] #### ANTI-KU AB, MITOM2, CH50, PAT, RNA POLYMR, C3, C4 #### [facility] , Atypical perinuclear antineu trophil cytoplasmic antibodies measurementOrdered By: Jane Tracey on 05-30-2023 Neutrophil cytoplasmic Ab.perinuclear.atypical IF (S) [Titer] <1:20 titer Neg:<1:20 [facility] Comment on above: The atypical pANCA p attern has been observed in asignificant percentage of patients with ulcerative colitis,primary sclerosing cholangitis and autoimmune hepatitis.Performed at: - [facility] [id number] Director: Lisa Ramos MD, Phone: [phone] at: [facility] [id number] Director: Breezy Jones PhD, Phone: [phone] Automated basophil %Ordered By: Jane Tracey on 05-30-2023 Basophils/100 WBC (Bld) 1.5 % Normal . [facility] Comment on above: Performed By: #### C REAT, ESR, CRP, HEPATIC, CK, CBC, MISC LAB #### [facility] [address] [place] [address] [place] #### ANTI-KU AB, MITOM2, CH50, PAT, RNA POLYMR, C3, C4 #### [facility] , Automated basophil countOrde red By: Jane Tracey on 05-30-2023 Basophils (Bld) [#/Vol] 0.2 10*3/uL Normal 0.0-0.2 [facility] Comment on above: Result Comment: PERF ORMED BY: [place] [address] PATHOLOGIST CASING PULLER RUIZ CLIFTON M.D. Performed By: #### C REAT, ESR, CRP, HEPATIC, CK, CBC, MISC LAB #### [address] #### ANTI-KU AB, MITOM2, CH50, PAT, RNA POLYMR, C3, C4 #### [facility] , Automated blood monocyte cou ntOrdered By: Jane Tracey on 05-30-2023 Monocytes (Bld) [#/Vol] 0.2 10*3/uL Normal 0.0-0.8 [facility] Comment on above: Performed By: #### C REAT, ESR, CRP, HEPATIC, CK, CBC, MISC LAB #### [place] [address] [place] #### ANTI-KU AB, MITOM2, CH50, PAT, RNA POLYMR, C3, C4 #### [facility] , Automated eosinophil %Ordere d By: Jane Tracey on 05-30-2023 Eosinophils/100 WBC (Bld) 0.9 % Normal . [facility] Comment on above: Performed By: #### C REAT, ESR, CRP, HEPATIC, CK, CBC, MISC LAB #### [place] [address] [place] #### ANTI-KU AB, MITOM2, CH50, PAT, RNA POLYMR, C3, C4 #### [facility] , Automated eosinophil countOr dered By: Jane Tracey on 05-30-2023 Eosinophils (Bld) [#/Vol] 0.1 10*3/uL Normal 0.0-0.45 [facility] Comment on above: Performed By: #### C REAT, ESR, CRP, HEPATIC, CK, CBC, MISC LAB #### [place] [address] [place] #### ANTI-KU AB, MITOM2, CH50, PAT, RNA POLYMR, C3, C4 #### [facility] , Automated monocyte %Ordered By: Leslilia AbhilashZullyKatjadarleen on 05-30-2023 Monocytes/100 WBC (Bld) 2.2 % Normal . [facility] Comment on above: Performed By: #### C REAT, ESR, CRP, HEPATIC, CK, CBC, MISC LAB #### [place] [address] [place] #### ANTI-KU AB, MITOM2, CH50, PAT, RNA POLYMR, C3, C4 #### [facility] , Automated neutrophil %Ordere d By: Jane Tracey on 05-30-2023 Neutrophils/100 WBC (Bld) 66.7 % Normal . [facility] Comment on above: Performed By: #### C REAT, ESR, CRP, HEPATIC, CK, CBC, MISC LAB #### [address] #### ANTI-KU AB, MITOM2, CH50, PAT, RNA POLYMR, C3, C4 #### [facility] , Bilirubin.total [Mass/volume ] in Serum or PlasmaOrdered By: Jane Tracey on 05-30-2023 Bilirubin [Mass/Vol] 0.5 mg/dL Normal 0.3-1.0 [facility] Comment on above: Performed By: #### C REAT, ESR, CRP, HEPATIC, CK, CBC, MISC LAB #### [place] [address] [place] #### ANTI-KU AB, MITOM2, CH50, PAT, RNA POLYMR, C3, C4 #### [facility] , Blood lead detectionOrdered By: Jane Tracey on 05-30-2023 Lead Ql (Bld) <1.0 ug/dL 0.0-3.4 [facility] Comment on above: Testing performed by Inductively coupled plasma/MassSpectrometry.Analysis by inductively coupled plasma/massspectrometry (ICP/MS)This test was developed and its performance characteristicsdetermined by [facility]. It has not been cleared orapproved by the Food and Drug Administration. Environmental Exposure: WHO Recommendation <5.0 Occupational Exposure: OSHA Lead Std 40.0 OLIVE 30.0 Detection Limit = 1.0Performed at: [address] [id number] Director: Breezy Jones PhD, Phone: [phone] Calcium [Mass/volume] in Ser um or PlasmaOrdered By: Jane Tracey on 05-30-2023 Calcium [Mass/Vol] 10.4 mg/dL High 8.6-10.[address] [facility] Comment on above: Performed By: #### C REAT, ESR, CRP, HEPATIC, CK, CBC, MISC LAB #### [place] [address] [place] #### ANTI-KU AB, MITOM2, CH50, PAT, RNA POLYMR, C3, C4 #### [facility] , Carbon dioxide, total [Moles /volume] in Serum or PlasmaOrdered By: Jane Condon on 05-30-2023 CO2 [Moles/Vol] 24.8 mmol/L Normal 21.0-31.0 [facility] Comment on above: Performed By: #### C REAT, ESR, CRP, HEPATIC, CK, CBC, MISC LAB #### [facility] [address] [place] [address] [place] #### ANTI-KU AB, MITOM2, CH50, PAT, RNA POLYMR, C3, C4 #### [facility] , Chloride [Moles/volume] in S caitlyn or PlasmaOrdered By: Jane Tracey on 05-30-2023 Chloride [Moles/Vol] 99 mmol/L Normal 98-107 [facility] Comment on above: Performed By: #### C REAT, ESR, CRP, HEPATIC, CK, CBC, MISC LAB #### [facility] [address] [place] [address] #### ANTI-KU AB, MITOM2, CH50, PAT, RNA POLYMR, C3, C4 #### [facility] , Complete Blood Count Auto Di ffon 05-30-2023 Mean Corpuscular HGB Conc 34.2 g/dL Normal 32.0-35.0 [facility] Comment on above: Performed By: #### C REAT, ESR, CRP, HEPATIC, CK, CBC, MISC LAB #### [address] #### ANTI-KU AB, MITOM2, CH50, PAT, RNA POLYMR, C3, C4 #### [facility] , NRBC% 0.1 /100{WBC} Normal 0-0.5 [facility] Comment on above: Performed By: #### C REAT, ESR, CRP, HEPATIC, CK, CBC, MISC LAB #### [place] [address] [place] #### ANTI-KU AB, MITOM2, CH50, PAT, RNA POLYMR, C3, C4 #### [facility] , Comprehensive Metabolic Pane antione 05-30-2023 Albumin [Mass/Vol] 5.2 g/dL Normal 3.5-5.7 [facility] Comment on above: Performed By: #### C REAT, ESR, CRP, HEPATIC, CK, CBC, MISC LAB #### [place] [address] [place] #### ANTI-KU AB, MITOM2, CH50, PAT, RNA POLYMR, C3, C4 #### [facility] , Creatinine Clr Calc Pharmacy 108.91 Normal [facility] Comment on above: Performed By: #### C REAT, ESR, CRP, HEPATIC, CK, CBC, MISC LAB #### [place] [address] [place] #### ANTI-KU AB, MITOM2, CH50, PAT, RNA POLYMR, C3, C4 #### [facility] , GFR/1.73 sq M.predicted MDRD (S/P/Bld) [Vol rate/Area] mL/min/{1.73_m2} Normal [facility] Comment on above: Performed By: #### C REAT, ESR, CRP, HEPATIC, CK, CBC, MISC LAB #### [facility] [address] [place] [address] [place] #### ANTI-KU AB, MITOM2, CH50, PAT, RNA POLYMR, C3, C4 #### [facility] , Copperon 05-30-2023 Copper 124 ug/dL Normal 80-158 [facility] Comment on above: Result Comment: This test was developed and its performance characteristics determined by [facility]. It has not been cleared or approved by the Food and Drug Administration. Detection Limit = 5 Performed at: [address] [id number] Hot End Operator: Lisa Ramos MD, Phone: [phone] Performed By: #### C REAT, ESR, CRP, HEPATIC, CK, CBC, MISC LAB #### [facility] [address] [employer], [place] [address] [place] #### ANTI-KU AB, MITOM2, CH50, PAT, RNA POLYMR, C3, C4 #### [facility] , Creatinine [Mass/volume] in Serum or PlasmaOrdered By: Jane Tracey on 05-30-2023 Creatinine [Mass/Vol] 0.67 mg/dL Normal 0.60-1.20 [facility] Comment on above: Performed By: #### C REAT, ESR, CRP, HEPATIC, CK, CBC, MISC LAB #### [facility] [address] [employer], [place] [address] [place] #### ANTI-KU AB, MITOM2, CH50, PAT, RNA POLYMR, C3, C4 #### [facility] , Cryoglobulin with Quant Refl exon 05-30-2023 Cryoglobulin, Ql, Serum Normal . [facility] Comment on above: Result Comment: Test not performed. Insufficient specimen to perform or complete analysis. contacted your facility on 06-04-2023 This test was developed and its performance characteristics determined by [facility]. It has not been cleared or approved by the Food and Drug Administration. Performed By: #### C REAT, ESR, CRP, HEPATIC, CK, CBC, MISC LAB #### [place] [address] [place] #### ANTI-KU AB, MITOM2, CH50, PAT, RNA POLYMR, C3, C4 #### [facility] , Erythrocyte distribution wid th [Ratio] by Automated countOrdered By: Jane Condon on 05-30-2023 Erythrocyte distribution width (RBC) [Ratio] 12.8 % Normal 11.9-15.3 [facility] Comment on above: Performed By: #### C REAT, ESR, CRP, HEPATIC, CK, CBC, [facility] #### [place] [address] [place] #### ANTI-KU AB, MITOM2, CH50, PAT, RNA POLYMR, C3, C4 #### [facility] , Erythrocytes [#/volume] in B lood by Automated countOrdered By: Jane Tracey on 05-30-2023 RBC (Bld) [#/Vol] 5.00 10*6/uL Normal 3.60-5.00 [facility] Comment on above: Performed By: #### C REAT, ESR, CRP, HEPATIC, CK, CBC, [facility] #### [place] [address] [place] #### ANTI-KU AB, MITOM2, CH50, PAT, RNA POLYMR, C3, C4 #### [facility] , Folate [Mass/volume] in Seru m or PlasmaOrdered By: Jane Tracey on 05-30-2023 Folate [Mass/Vol] 1.3 ng/mL >5.9 [facility] Comment on above: Folate reference ran ge: >5.9 ng/mlThe WHO technical consultation on folate and vitamin [id number] has determined that folate concentrations lessthan 4 ng/ml are considered deficient. Free K+L LT Chains, Qn, Son 05-30-2023 Free Redmon Light Chains, S 20.9 mg/L High 3.3-19.4 [facility] Comment on above: Performed By: #### C REAT, ESR, CRP, HEPATIC, CK, CBC, MISC LAB #### [place] [address] [place] #### ANTI-KU AB, MITOM2, CH50, PAT, RNA POLYMR, C3, C4 #### [facility] , Free Lambda Light Chains, S 19.4 mg/L Normal 5.7-26.3 [facility] Comment on above: Performed By: #### C REAT, ESR, CRP, HEPATIC, CK, CBC, MISC LAB #### [facility] [address] [place] [address] [place] #### ANTI-KU AB, MITOM2, CH50, PAT, RNA POLYMR, C3, C4 #### [facility] , Redmon/Lambda Ratio, S 1.08 Normal 0.26-1.65 [facility] Comment on above: Result Comment: Perf ormed at: - [facility] [place] [id number] Hot End Operator: Breezy Jones PhD, Phone: [phone] Performed By: #### C REAT, ESR, CRP, HEPATIC, CK, CBC, MISC LAB #### [facility] [address] [place] [address] [place] #### ANTI-KU AB, MITOM2, CH50, PAT, RNA POLYMR, C3, C4 #### [facility] , Glucose [Mass/volume] in Ser um or PlasmaOrdered By: Jane Tracey on 05-30-2023 Glucose [Mass/Vol] 97 mg/dL Normal 70-[address] [facility] Comment on above: ADA recommended refe rence rangeRandom Glucose Reference Range is dependent on time and content of last meal. Glucose of more than 200 mg/dL in a nonstressed, ambulatory subject supports the diagnosis of Diabetes Mellitus. Result Comment: [facility] Glucose Reference Range is dependent on time and content of last meal. Glucose of more than 200 mg/dL in a nonstressed, ambulatory subject supports the diagnosis of Diabetes Mellitus. ADA recommended reference range Performed By: #### C REAT, ESR, CRP, HEPATIC, CK, CBC, MISC LAB #### [facility] [address] [place] [address] [place] #### ANTI-KU AB, MITOM2, CH50, PAT, RNA POLYMR, C3, C4 #### [facility] , HIV 1/O/2 Antigen/Antibodyon 05-30-2023 HIV Screen 4th Generation Non-Reactive Normal Non Reactive [facility] Comment on above: Result Comment: HIV Negative HIV-1/HIV-2 antibodies and HIV-1 p24 antigen were NOT detected. There is no laboratory evidence of HIV infection. Performed at: [facility] [id number] Hot End Operator: Breezy Jones PhD, Phone: [phone] Performed By: #### C REAT, ESR, CRP, HEPATIC, CK, CBC, MISC LAB #### [facility] [address] [place] [address] [place] #### ANTI-KU AB, MITOM2, CH50, PAT, RNA POLYMR, C3, C4 #### [facility] , HIV 1 and HIV-2 antibody ass ay with HIV-1 p24 antigen detectionOrdered By: Jane Tracey on 05-30-2023 HIV 1+2 Ab+HIV1 p24 Ag IA Ql Non-Reactive Non Reactive [facility] Comment on above: HIV NegativeHIV-1/HI V-2 antibodies and HIV-1 p24 antigen were NOTdetected. There is no laboratory evidence of HIV infection.Performed at: [facility] [id number] Director: Breezy Jones PhD, Phone: [phone] Hematocrit [Volume Fraction] of Blood by Automated countOrdered By: Jane Condon on 05-30-2023 Hematocrit (Bld) [Volume fraction] 47.6 % High 34.0-46.4 [facility] Comment on above: Performed By: #### C REAT, ESR, CRP, HEPATIC, CK, CBC, MISC LAB #### [facility] [address] [place] [address] #### ANTI-KU AB, MITOM2, CH50, PAT, RNA POLYMR, C3, C4 #### [facility] , Hemoglobin [Mass/volume] in BloodOrdered By: Jane Tracey on 05-30-2023 Hemoglobin (Bld) [Mass/Vol] 16.3 g/dL High 11.8-15.4 [facility] Comment on above: Performed By: #### C REAT, ESR, CRP, HEPATIC, CK, CBC, MISC LAB #### [facility] [address] [place] [address] #### ANTI-KU AB, MITOM2, CH50, PAT, RNA POLYMR, C3, C4 #### [facility] , Hepatitis B Core Antibody Ig Mon 05-30-2023 Hepatitis B Core Antibody IgM Negative Normal Negative [facility] Comment on above: Result Comment: Perf ormed at: - [facility] [address] [id number] Hot End Operator: Breezy Jones PhD, Phone: [phone] Performed By: #### C REAT, ESR, CRP, HEPATIC, CK, CBC, MISC LAB #### [facility] [address] [place] [address] #### ANTI-KU AB, MITOM2, CH50, PAT, RNA POLYMR, C3, C4 #### [facility] , Hepatitis B Surface Antibody on 05-30-2023 Hepatitis B Surface Antibody Reactive Normal . [facility] Comment on above: Result Comment: Non Reactive: Inconsistent with immunity, less than 10 mIU/mL Reactive: Consistent with immunity, greater than 9.9 mIU/mL Performed By: #### C REAT, ESR, CRP, HEPATIC, CK, CBC, MISC LAB #### [facility] [address] [place] [address] #### ANTI-KU AB, MITOM2, CH50, PAT, RNA POLYMR, C3, C4 #### [facility] , Hepatitis B Surface Antigeno n 05-30-2023 HBsAg Screen Negative Normal Negative [facility] Comment on above: Result Comment: PERF ORMED BY: [address] [place] [address] PATHOLOGIST CASING PULLER RUIZ CLIFTON M.D. Performed By: #### C REAT, ESR, CRP, HEPATIC, CK, CBC, MISC LAB #### [address] #### ANTI-KU AB, MITOM2, CH50, PAT, RNA POLYMR, C3, C4 #### [facility] , Hepatitis B virus surface Ag [Presence] in Serum or Plasma by ImmunoassayOrdered By: Jane Tracey on 05-30-2023 HBV surface Ag IA Ql Negative Negative [facility] IgA [Mass/volume] in Serum o r PlasmaOrdered By: lilia Tracey on 05-30-2023 IgA [Mass/Vol] 539 mg/dL 87-352 [facility] IgG [Mass/volume] in Serum o r PlasmaOrdered By: lilia Tracey on 05-30-2023 IgG [Mass/Vol] 1365 mg/dL [phone] [facility] IgM [Mass/volume] in Serum o r PlasmaOrdered By: lilia Tracey on 05-30-2023 IgM [Mass/Vol] 352 mg/dL 26-217 [facility] Comment on above: Performed at: [address] [id number] Director: Breezy Jones PhD, Phone: [phone] Immunofixation,Serumon 05-30 Immunofixation, Serum Normal . [facility] Comment on above: Result Comment: No m onoclonality detected. Performed By: #### C REAT, ESR, CRP, HEPATIC, CK, CBC, MISC LAB #### [place] [address] [place] #### ANTI-KU AB, MITOM2, CH50, PAT, RNA POLYMR, C3, C4 #### [facility] , Immunoglobulin A, Serum 539 mg/dL High 87-352 [facility] Comment on above: Performed By: #### C REAT, ESR, CRP, HEPATIC, CK, CBC, [facility] #### [facility] [address] [place] [address] [place] #### ANTI-KU AB, MITOM2, CH50, PAT, RNA POLYMR, C3, C4 #### [facility] , Immunoglobulin G 1365 mg/dL Normal 586-[address] [facility] Comment on above: Performed By: #### C REAT, ESR, CRP, HEPATIC, CK, CBC, [facility] #### [place] [address] [place] #### ANTI-KU AB, MITOM2, CH50, PAT, RNA POLYMR, C3, C4 #### [facility] , Immunoglobulin M, Serum 352 mg/dL High 26-217 [facility] Comment on above: Result Comment: Perf ormed at: - [facility] [address] [id number] Hot End Operator: Breezy Jones PhD, Phone: [phone] Performed By: #### C REAT, ESR, CRP, HEPATIC, CK, CBC, [facility] #### [place] [address] [place] #### ANTI-KU AB, MITOM2, CH50, PAT, RNA POLYMR, C3, C4 #### [facility] , Immunoglobulin light chains. kappa.free [Mass/volume] in SerumOrdered By: Jane Tracey on 05-30-2023 Immunoglobulin light chains.kappa.free (S) [Mass/Vol] 20.9 mg/L 3.3-19.4 [facility] Immunoglobulin light chains. kappa.free/Immunoglobulin light chains.lambda.free [MassOrdered By: Jane Tracey on 05-30-2023 Immunoglobulin light chains.kappa.free/Immun oglobulin light chains.lambda.free (S) [Mass ratio] 1.08 0.26-1.65 [facility] Comment on above: Performed at: - [facility] [place], [place] [id number] Director: Breezy Jones PhD, Phone: [phone] Immunoglobulin light chains. lambda.free [Mass/volume] in Serum or PlasmaOrdered By: Jane Tracey on 05-30-2023 Immunoglobulin light chains.lambda.free [Mass/Vol] 19.4 mg/L 5.7-26.3 [facility] LDH Lactate Dehydrogenaseon 05-30-2023 LDH Lactate Dehydrogenase 219 U/L Normal 140-271 [facility] Comment on above: Performed By: #### C REAT, ESR, CRP, HEPATIC, CK, CBC, MISC LAB #### [address] #### ANTI-KU AB, MITOM2, CH50, PAT, RNA POLYMR, C3, C4 #### [facility] , Lactate dehydrogenase [Enzym atic activity/volume] in Serum or Plasma by Lactate to pyOrdered By: Jane Tracey on 05-30-2023 LDH Lactate to pyruvate reaction [Catalytic activity/Vol] 219 U/L 140-271 [facility] Lead, Adulton 05-30-2023 Lead-Adult Blood <1.0 Normal 0.0-3.4 [facility] Comment on above: Result Comment: Test ing performed by Inductively coupled plasma/Mass Spectrometry. Analysis by inductively coupled plasma/mass spectrometry (ICP/MS) This test was developed and its performance characteristics determined by [employer]. It has not been cleared or approved by the Food and Drug Administration. Environmental Exposure: WHO Recommendation <5.0 Occupational Exposure: OSHA Lead Std 40.0 OLIVE 30.0 Detection Limit = 1.0 Performed at: [facility] [address] [place], [place] [id number] Hot End Operator: Breezy Jones PhD, Phone: [phone] Performed By: #### C REAT, ESR, CRP, HEPATIC, CK, CBC, MISC LAB #### [facility] [address] [place] [address] [place] #### ANTI-KU AB, MITOM2, CH50, PAT, RNA POLYMR, C3, C4 #### [facility] , Leukocytes [#/volume] correc antoine for nucleated erythrocytes in Blood by Automated counOrdered By: lilia Tracey on 05-30-2023 WBC corrected for nucl RBC Auto (Bld) [#/Vol] 10.1 10*3/uL 3.8-11.6 [facility] Leukocytes [#/volume] in Blo od by Automated countOrdered By: lilia Tracey on 05-30-2023 WBC (Bld) [#/Vol] 10.1 10*3/uL Normal 3.8-11.6 [facility] Comment on above: Performed By: #### C REAT, ESR, CRP, HEPATIC, CK, CBC, MISC LAB #### [facility] [address] [place] [address] [place] #### ANTI-KU AB, MITOM2, CH50, PAT, RNA POLYMR, C3, C4 #### [facility] , Lymphocytes [#/volume] in Bl ood by Automated countOrdered By: lilia Tracey on 05-30-2023 Lymphocytes (Bld) [#/Vol] 2.9 10*3/uL Normal 1.00-4.8 [facility] Comment on above: Performed By: #### C REAT, ESR, CRP, HEPATIC, CK, CBC, MISC LAB #### [facility] [address] [place] [address] [place] #### ANTI-KU AB, MITOM2, CH50, PAT, RNA POLYMR, C3, C4 #### [facility] , Lymphocytes/100 leukocytes i n Blood by Automated countOrdered By: lilia Tracey on 05-30-2023 Lymphocytes/100 WBC (Bld) 28.7 % Normal . [facility] Comment on above: Performed By: #### C REAT, ESR, CRP, HEPATIC, CK, CBC, MISC LAB #### [facility] [address] [place] [address] [place] #### ANTI-KU AB, MITOM2, CH50, PAT, RNA POLYMR, C3, C4 #### [facility] , MCH [Entitic mass] by Automa antoine countOrdered By: Jane Tracey on 05-30-2023 MCH (RBC) [Entitic mass] 32.5 pg Normal 24.7-34.3 [facility] Comment on above: Performed By: #### C REAT, ESR, CRP, HEPATIC, CK, CBC, MISC LAB #### [address] #### ANTI-KU AB, MITOM2, CH50, PAT, RNA POLYMR, C3, C4 #### [facility] , MCHC Auto (RBC) [Mass/Vol]Or dered By: Jane Tracey on 05-30-2023 MCHC (RBC) [Mass/Vol] 34.2 g/dL 32.0-35.0 [facility] MCV [Entitic volume] by Auto mated countOrdered By: Jane Tracey on 05-30-2023 MCV (RBC) [Entitic vol] 95.0 fL Normal 80-100 [facility] Comment on above: Performed By: #### C REAT, ESR, CRP, HEPATIC, CK, CBC, MISC LAB #### [place] [address] [place] #### ANTI-KU AB, MITOM2, CH50, PAT, RNA POLYMR, C3, C4 #### [facility] , Magnesium [Mass/volume] in S caitlyn or PlasmaOrdered By: Jane Tracey on 05-30-2023 Magnesium [Mass/Vol] 1.9 mg/dL Normal 1.9-2.7 [facility] Comment on above: Performed By: #### C REAT, ESR, CRP, HEPATIC, CK, CBC, MISC LAB #### [facility] [address] #### ANTI-KU AB, MITOM2, CH50, PAT, RNA POLYMR, C3, C4 #### [facility] , Methylmalonic Acidon 023 Methylmalonic Acid 99 Normal 0-378 [facility] Comment on above: Result Comment: This test was developed and its performance characteristics determined by [facility]. It has not been cleared or approved by the Food and Drug Administration. Performed at: [address] [id number] Hot End Operator: Lisa Ramos MD, Phone: [phone] Performed By: #### C REAT, ESR, CRP, HEPATIC, CK, CBC, [facility] #### [facility] [address] #### ANTI-KU AB, MITOM2, CH50, PAT, RNA POLYMR, C3, C4 #### [facility] , Monocyte %Ordered By: Jane Ying on 05-30-2023 Monocyte % 124 ug/dL 80-158 [facility] Comment on above: This test was develo ped and its performance characteristicsdetermined by [employer]. It has not been cleared orapproved by the Food and Drug Administration. Detection Limit = 5Performed at: [address] [id number] Director: Lisa Ramos MD, Phone: [phone] Myeloperoxidase Ab [Units/vo lume] in Serum by ImmunoassayOrdered By: Jane Condon on 05-30-2023 Myeloperoxidase Ab IA Qn (S) <0.2 units 0.0-0.9 [facility] Neutrophils [#/volume] in Bl ood by Automated countOrdered By: Jane Tracey on 05-30-2023 Neutrophils (Bld) [#/Vol] 6.7 10*3/uL Normal 1.8-7.7 [facility] Comment on above: Performed By: #### C REAT, ESR, CRP, HEPATIC, CK, CBC, MISC LAB #### [facility] [address] #### ANTI-KU AB, MITOM2, CH50, PAT, RNA POLYMR, C3, C4 #### [facility] , No Panel InformationOrdered By: Jane Tracey on 05-30-2023 Anti-Nuclear Antibody Comment 2 See comment . [facility] Comment on above: Pattern Potential Di sease Association Homogeneous Systemic Lupus Erythematosus, Drug Induced Systemic Lupus Erythematosus, Chronic Autoimmune hepatitis, Juvenile Idiopathic Arthritis Speckled Sjogren Syndrome, Systemic Lupus Erythematosus, Subacute Cutaneous Lupus, Lupus, Congenital Heart Block, Mixed Connective Tissue Disease, Scleroderma-diffuse, Scleroderma-Autoimmune Myositis Overlap Syndrome, Systemic Lupus Rjadingbmxkgq-Lrtwcmzltmv-[place]ure Myositis Overlap Syndrome, Systemic Autoimmune Rheumatic Disease, [...] Cytopenias, Linear Scleroderma, Antiphospholipid Syndrome Performed at: [place] [facility] [address] [id number] Director: Breezy Jones PhD, Phone: [phone] Estimated GFR (CKD-EPI) > 60.0 mL/Min [facility] Hepatitis B Core IgM Antibody Negative Negative [facility] Comment on above: Performed at: [facility] [address] [id number] Director: Breezy Jones PhD, Phone: [phone] Perinuclear ANCA (p-ANCA) Antibody <1:20 titer Neg:<1:20 [facility] Comment on above: The presence of posi tive fluorescence exhibiting P-ANCA orC-ANCA patterns alone is not specific for the diagnosis ofWegener's Granulomatosis (WG) or microscopic polyangiitis.Decisions about treatment should not be based solely onANCA IFA results. The International ANCA Group Consensusrecommends follow up testing of positive sera with both WA-3 and MPO-ANCA enzyme immunoassays. As many as 5% serumsamples are positive only by EIA. Ref. AM J Clin Ftjuwq2177;111:507-513. Pharmacy Creatinine Clearance (Chem 108.91 [facility] Protein Electrophoresis M-Tomas Not observed g/dL Not Observed [facility] Protein Electrophoresis Note See comment . [facility] Comment on above: Protein electrophore sis scan will follow via computer,mail, or crime scene specialist delivery. Serum Immunofixation See comment . [facility] Comment on above: No monoclonality det ected. Nucleated erythrocytes [Pres ence] in Blood by Automated countOrdered By: Jane Tracey on 05-30-2023 Nucleated RBC Auto Ql (Bld) 0.1 /100{WBC} 0-0.5 [facility] Platelet mean volume [Entiti c volume] in Blood by Automated countOrdered By: Jane Tracey on 05-30-2023 Platelet mean volume (Bld) [Entitic vol] 7.6 fL Normal 6.3-10.7 [facility] Comment on above: Performed By: #### C REAT, ESR, CRP, HEPATIC, CK, CBC, MISC LAB #### [facility] [address] [place] [address] [place] #### ANTI-KU AB, MITOM2, CH50, PAT, RNA POLYMR, C3, C4 #### [facility] , Platelets [#/volume] in Bloo d by Automated countOrdered By: Jane Tracey on 05-30-2023 Platelets (Bld) [#/Vol] 325 10*3/uL Normal 150-450 [facility] Comment on above: Performed By: #### C REAT, ESR, CRP, HEPATIC, CK, CBC, MISC LAB #### [facility] [address] [place] [address] [place] #### ANTI-KU AB, MITOM2, CH50, PAT, RNA POLYMR, C3, C4 #### [facility] , Potassium [Moles/volume] in Serum or PlasmaOrdered By: Jane Tracey on 05-30-2023 Potassium [Moles/Vol] 3.4 mmol/L Low 3.5-5.1 [facility] Comment on above: Performed By: #### C REAT, ESR, CRP, HEPATIC, CK, CBC, MISC LAB #### [facility] [address] [place] [address] [place] #### ANTI-KU AB, MITOM2, CH50, PAT, RNA POLYMR, C3, C4 #### [facility] , Protein Electrophoresis, Ser umon 05-30-2023 Wqlgp-2-Qpdqhuvu 0.2 g/dL Normal 0.0-0.4 [facility] Comment on above: Performed By: #### C REAT, ESR, CRP, HEPATIC, CK, CBC, MISC LAB #### [place] [address] [place] #### ANTI-KU AB, MITOM2, CH50, PAT, RNA POLYMR, C3, C4 #### [facility] , Admhl-8-Mqnmtxiy 1.0 g/dL Normal 0.4-1.0 [facility] Comment on above: Performed By: #### C REAT, ESR, CRP, HEPATIC, CK, CBC, MISC LAB #### [address] #### ANTI-KU AB, MITOM2, CH50, PAT, RNA POLYMR, C3, C4 #### [facility] , Beta Globulin 1.3 g/dL Normal 0.7-1.3 [facility] Comment on above: Performed By: #### C REAT, ESR, CRP, HEPATIC, CK, CBC, MISC LAB #### [place] [address] [place] #### ANTI-KU AB, MITOM2, CH50, PAT, RNA POLYMR, C3, C4 #### [facility] , Gamma Globulin 1.5 g/dL Normal 0.4-1.8 [facility] Comment on above: Performed By: #### C REAT, ESR, CRP, HEPATIC, CK, CBC, MISC LAB #### [place] [address] [place] #### ANTI-KU AB, MITOM2, CH50, PAT, RNA POLYMR, C3, C4 #### [facility] , M-Tomas Not Observed Normal Not Observed [facility] Comment on above: Performed By: #### C REAT, ESR, CRP, HEPATIC, CK, CBC, MISC LAB #### [address] #### ANTI-KU AB, MITOM2, CH50, PAT, RNA POLYMR, C3, C4 #### [facility] , SPE-Note Normal . [facility] Comment on above: Result Comment: Prot ein electrophoresis scan will follow via computer, mail, or crime scene specialist delivery. Performed By: #### C REAT, ESR, CRP, HEPATIC, CK, CBC, MISC LAB #### [address] #### ANTI-KU AB, MITOM2, CH50, PAT, RNA POLYMR, C3, C4 #### [facility] , Protein [Mass/volume] in Ser um or PlasmaOrdered By: Jane Tracey on 05-30-2023 Protein [Mass/Vol] 9.0 g/dL High 6.4-8.[address] [facility] Comment on above: Performed By: #### C REAT, ESR, CRP, HEPATIC, CK, CBC, MISC LAB #### [address] #### ANTI-KU AB, MITOM2, CH50, PAT, RNA POLYMR, C3, C4 #### [facility] , Protein [Mass/Vol] 8.1 g/dL Normal 6.0-8.[address] [facility] Comment on above: Performed By: #### C REAT, ESR, CRP, HEPATIC, CK, CBC, MISC LAB #### [facility] [address] [place] [address] [place] #### ANTI-KU AB, MITOM2, CH50, PAT, RNA POLYMR, C3, C4 #### [facility] , Proteinase 3 Ab [Units/volum e] in Serum by ImmunoassayOrdered By: Jane Tracey on 05-30-2023 Proteinase 3 Ab IA Qn (S) <0.2 units 0.0-0.9 [facility] Rheumatoid Factoron 05-30-20 23 Rheumatoid Factor 10.9 Normal <14.0 [facility] Comment on above: Result Comment: Perf ormed at: [facility] [place] [address] Hot End Operator: Breezy Jones PhD, Phone: [phone] Performed By: #### C REAT, ESR, CRP, HEPATIC, CK, CBC, MISC LAB #### [address] #### ANTI-KU AB, MITOM2, CH50, PAT, RNA POLYMR, C3, C4 #### [facility] , Serum angiotensin converting enzyme (DILSHAD) measurementOrdered By: Jane Tracey on 05-30-2023 Angiotensin converting enzyme [Catalytic activity/Vol] 61 U/L Normal 14-82 [facility] Comment on above: Performed at: [place] [address] Director: Breezy Jones PhD, Phone: [phone] Result Comment: Perf ormed at: [facility] [place] [address] Hot End Operator: Breezy Jones PhD, Phone: [phone] Performed By: #### C REAT, ESR, CRP, HEPATIC, CK, CBC, MISC LAB #### [facility] [address] [place] [address] [place] #### ANTI-KU AB, MITOM2, CH50, PAT, RNA POLYMR, C3, C4 #### [facility] , Serum classic neutrophil cyt oplasmic antibody titer by immunofluorescenceOrdered By: Jane Tracey on 05-30-2023 Neutrophil cytoplasmic Ab.classic IF (S) [Titer] <1:20 titer Neg:<1:20 [facility] Serum cryoglobulin detection Ordered By: Jane Tracey on 05-30-2023 Cryoglobulin Ql (S) See comment . [facility] Comment on above: Test not performed. Insufficient specimen to perform orcomplete analysis.contacted your facility on 26-30-4827Boab test was developed and its performance characteristicsdetermined by [facility]. It has not been cleared orapproved by the Food and Drug Administration. Serum globulin measurement ( mass/volume)Ordered By: Jane Tracey on 05-30-2023 Globulin (S) [Mass/Vol] 4.0 g/dL High 2.2-3.9 [facility] Comment on above: Performed By: #### C REAT, ESR, CRP, HEPATIC, CK, CBC, MISC LAB #### [facility] [address] [place] [address] #### ANTI-KU AB, MITOM2, CH50, PAT, RNA POLYMR, C3, C4 #### [facility] , Serum globulin measurement b y calculation (mass/volume)Ordered By: Jane Condon on 05-30-2023 Globulin (S) [Mass/Vol] 3.8 g/dL Normal [facility] Comment on above: Performed By: #### C REAT, ESR, CRP, HEPATIC, CK, CBC, MISC LAB #### [facility] [address] [place] [address] [place] #### ANTI-KU AB, MITOM2, CH50, PAT, RNA POLYMR, C3, C4 #### [facility] , Serum hepatitis B virus surf dilshad antibody detectionOrdered By: Jane Tracey on 05-30-2023 HBV surface Ab Ql (S) Reactive . [facility] Comment on above: Non Reactive: Incons istent with immunity, less than 10 mIU/mL Reactive: Consistent with immunity, greater than 9.9 mIU/mL Serum nuclear antibody titer Ordered By: Jane Tracey on 05-30-2023 Nuclear Ab (S) [Titer] Positive . [facility] Comment on above: Negative <1:80 Borde rline 1:80 Positive >1:80 Serum or plasma albumin/glob ulin mass ratioOrdered By: Jane Tracey on 11-09-2023 Albumin/Globulin [Mass ratio] 1.4 {ratio} Normal [facility] Comment on above: Performed By: #### C REAT, ESR, CRP, HEPATIC, CK, CBC, MISC LAB #### [place] [address] [place] #### ANTI-KU AB, MITOM2, CH50, PAT, RNA POLYMR, C3, C4 #### [facility] , Albumin/Globulin [Mass ratio] 1.0 {ratio} Normal 0.7-1.7 [facility] Comment on above: Performed By: #### C REAT, ESR, CRP, HEPATIC, CK, CBC, MISC LAB #### [facility] [address] [place] [address] [place] #### ANTI-KU AB, MITOM2, CH50, PAT, RNA POLYMR, C3, C4 #### [facility] , Serum or plasma alpha 1 glob ulin measurement by electrophoresis (mass/volume)Ordered By: Jane Tracey on 05-30-2023 Alpha 1 globulin Elph [Mass/Vol] 0.2 g/dL 0.0-0.4 [facility] Serum or plasma alpha 2 glob ulin measurement by electrophoresis (mass/volume)Ordered By: Jane Tracey on 05-30-2023 Alpha 2 globulin Elph [Mass/Vol] 1.0 g/dL 0.4-1.0 [facility] Serum or plasma anion gap de terminationOrdered By: Jane Tracey on 05-30-2023 Anion gap [Moles/Vol] 17.6 mmol/L High 6.0-15.0 [facility] Comment on above: Performed By: #### C REAT, ESR, CRP, HEPATIC, CK, CBC, MISC LAB #### [place] [address] [place] #### ANTI-KU AB, MITOM2, CH50, PAT, RNA POLYMR, C3, C4 #### [facility] , Serum or plasma beta globuli n measurement by electrophoresis (mass/volume)Ordered By: Jane Tracey on 05-30-2023 Beta globulin Elph [Mass/Vol] 1.3 g/dL 0.7-1.3 [facility] Serum or plasma gamma globul in measurement by electrophoresis (mass/volume)Ordered By: Jane Tracey on 05-30-2023 Gamma globulin Elph [Mass/Vol] 1.5 g/dL 0.4-1.8 [facility] Serum or plasma methylmalona te measurement (moles/volume)Ordered By: Jane Condon on 05-30-2023 Methylmalonate [Moles/Vol] 99 nmol/L 0-378 [facility] Comment on above: This test was devswatio ped and its performance characteristicsdetermined by [employer]. It has not been cleared orapproved by the Food and Drug Administration.Performed at: [facility] [address] [id number] Director: Lisa Ramos MD, Phone: [phone] Serum or plasma rheumatoid f actor measurement (units/volume)Ordered By: Jane Tracey on 05-30-2023 Rheumatoid factor Qn 10.9 [IU]/mL <14.0 [facility] Comment on above: Performed at: [address] [id number] Director: Breezy Jones PhD, Phone: [phone] Serum speckled pattern antin uclear antibody (PAT) titerOrdered By: Jane Condon on 05-30-2023 Speckled nuclear Ab pattern (S) [Titer] 1:160 . [facility] Comment on above: ICAP nomenclature: A C-2,4,5,29 Sodium [Moles/volume] in Ser um or PlasmaOrdered By: Jane Tracey on 05-30-2023 Sodium [Moles/Vol] 138 mmol/L Normal 136-[address] [facility] Comment on above: Performed By: #### C REAT, ESR, CRP, HEPATIC, CK, CBC, MISC LAB #### [address] #### ANTI-KU AB, MITOM2, CH50, PAT, RNA POLYMR, C3, C4 #### [facility] , Urea nitrogen [Mass/volume] in Serum or PlasmaOrdered By: Jane Tracey on 05-30-2023 Urea nitrogen [Mass/Vol] 9 mg/dL Normal 7-25 [facility] Comment on above: Performed By: #### C REAT, ESR, CRP, HEPATIC, CK, CBC, MISC LAB #### [facility] [address] [place] [address] #### ANTI-KU AB, MITOM2, CH50, PAT, RNA POLYMR, C3, C4 #### [facility] , Vit. B12/Folate Profileon Folate 1.3 ng/mL Low >5.9 [facility] Comment on above: Result Comment: Astrid te reference range: >5.9 ng/ml The WHO technical consultation on folate and vitamin b12 deficiencies has determined that folate concentrations less than 4 ng/ml are considered deficient. PERFORMED BY: [place] [address] PATHOLOGIST CASING PULLER RUIZ CLIFTON M.D. Performed By: #### C REAT, ESR, CRP, HEPATIC, CK, CBC, MISC LAB #### [address] #### ANTI-KU AB, MITOM2, CH50, PAT, RNA POLYMR, C3, C4 #### [facility] , Vitamin B12 ser/plasOrdered By: Jane Tracey on 05-30-2023 Cobalamin (Vitamin B12) [Mass/Vol] 169 pg/mL Low 180-914 [facility] Comment on above: Performed By: #### C REAT, ESR, CRP, HEPATIC, CK, CBC, MISC LAB #### [place] [address] [place] #### ANTI-KU AB, MITOM2, CH50, PAT, RNA POLYMR, C3, C4 #### [facility] , CNOVon 05-23-2023 [facility] Office Visit (NEUFHS ) -------- RICA STOUT ([id number]) 1995 F Date Time Provider Department 05/23/23 [...] year old female who presents to the [facility] with the chief complaint of [...] studies. B12. SPEP with RONALD. - Start zrex-cvn-nftzdxs B complex supplementation after laboratory studies. - Trial alpha lipoic acid. Take 600 mg daily. - Follow-up in person in 4 to 6 months. Arsh Orozco MD Staff, [facility] HPI: This is Ms. Rica Stout, a 27 year old female who presents to the [facility] with the chief complaint of [...] shrug bilater (more content not included)... Normal [facility] ECG 12-Leadon 05-10-2023 ECG 12-Lead [id number]#1.00TIFF Normal [facility] RAD - MISCon 05-10-2023 RAD - MISC [id number]#1.00TIFF [facility] RAD - MRI Reporton RAD - MRI Report [id number]#1.00TIFF [facility] RAD - Ultrasound Reporton RAD - Ultrasound Report [id number]#1.00TIFF [facility] Office Visiton 05-08-2023 Follow-up visit [id number] Louis Stout 1995 F Date Provider Department Center 05/08/2023 [facility] Family History Problem Relation Age of Onset Coronary artery disease Maternal Grandmother Peripheral vascular disease Maternal Grandmother Hypertension Paternal Grandmother Atrial fibrillation Paternal Grandmother Family Status - Relation Status Age at Maternal Grandmother Paternal Grandmother Level of Service:22[address] [place] OFFICE/OUTPATIENT ESTABLISHED MOD MDM 30-39 MIN Normal [facility] Lab Reportson 04-18-2023 Lab Reports [id number]#1.00CD:12 7 Normal [facility] Lab Reports [id number]#1.00CD:12 7 Normal [facility] RAD - Ultrasound Reporton RAD - Ultrasound Report [id number]#1.00CD:12 7 Normal [facility] A1AT SerPl-mCncon 04-12-2023 Alpha 1 antitrypsin [Mass/Vol] 138 mg/dL Normal 90-[address] [facility] Comment on above: Order Comment: Speci men Type: BLOOD SPECIMENOrdering Facility: [facility] Address: [address] [place] [address] Performed By: #### 2 4321-2, 1825-9, 08826-4, 2064-4 ####[facility] [id number] [place] [address] [place] ALPHA 1 ANTITRYP PHEN/GENOTY PEon 04-12-2023 HA[address]IN Normal [facility] Comment on above: Order Comment: Speci men Type: BLOOD SPECIMEN [facility] Address: [address] [place] [address] Result Comment: Alph a 1 Antitrypsin Phenotype and Genotype Laboratory Accession Number: [id number] Result: No Variant Detected in SERPINA1 (PI*MM) [...] two most common pathogenic variants: S (c.863A>T, p.Crg337Jxb, g.[id number]), Z (c.1096G>A, p.Tpv242Vtr, g.[id number]), and the rarer variants: F (c.739C>T, p.Qzc803Ami, g.[id number]), I (c.187C>T, p.Mmv20Cvp, g.[id number]). Limitations: This Laboratory Developed Test (LDT) is [...] developed and its performance characteristics determined by [facility] Pathology and Laboratory [facility] [place] ([place]). It has not been cleared or approved by the FDA. [facility] is regulated under CLIA as certified to perform high- complexity testing. This test is used for clinical purposes. It should not be regarded as investigational or for research. Testing and interpretation performed at [facility], [address] [place] [address]. CLIA Number: [id number] References: 1) Alok NAGEL, Rodo G, Alicia [...] SJ, Christel AF. Molecular characterisation of three xlamh-4-twwpskvrlwa deficiency variants: proteinase inhibitor (Pi) nullcardiff (Ehd073----Atr); PiMmalton (Bjv76----mohezsdv) and PiI (Oaq42----Nuk). Hum Karen. 1989 Jun;84(1):55-8. 4) Nancy EK and Alok RA. Clinical practice. Alpha1-antitrypsin deficiency. N Engl J Med. 2008Jan 13;360(88)[phone]. 5) Jorge NJ, Javier F, Samantha RA. The significance of the F variant of hgidv-5-dkqehtbgntk and unique case report of a PiFF homozygote. [facility]. 2014 Feb 25;14:132. 6) Esther CabreraK, Laisha FL, and Nicolette Mccurdy. Alpha-1 Antitrypsin Deficiency. 2005May 17 [Updated 2017 August 09]. In: Gricelda RA, Chele MP, Iban TO, et al., editors. GeneReviews [Internet]. [place]): [facility], [place]; 9957-6986. Available from: http://www.ncbi.nlm.nih.gov/books/SPT7535/ As reviewed by Saritha Swan MD Performed By: #### 3 4528-0 #### [facility] CLIA [id number] [address] [place] [address] [place] PAT BY IFA WITH REFLEXon Nuclear Ab pattern (S) [Interp] Nuclear fine speckled Normal [facility] Comment on above: Order Comment: Speci men Type: BLOOD SPECIMEN [facility] Address: [address] [address] Performed By: #### 3 4528-0 #### [facility] CLIA [id number] [address] [place] [address] [place] Nuclear Ab Ql (S) Positive Abnormal Negative [facility] Comment on above: Order Comment: Speci men Type: BLOOD SPECIMEN [facility] Facility: [facility] Address: [address] [place] [address] Result Comment: Anti -nuclear antibody test is used as an aid in diagnosis of systemic autoimmune diseases. Where positive and clinically warranted, follow-up using disease-specific testing is recommended. Low positive titers are not uncommon with advanced age, certain chronic infections, and malignancies among others. Test methodology: Indirect fluorescence immunoassay (IFA) using HEp-2 cells. 1:80 Performed By: #### 3 4528-0 #### [facility] CLIA [id number] [address] [place] [address] [place] Basic metabolic 2000 panelon 04-12-2023 Anion gap [Moles/Vol] 18 mmol/L Normal 9-18 [facility] Comment on above: Order Comment: Speci men Type: BLOOD SPECIMENOrdering Facility: [facility] Address: [address] [place] [address] Performed By: #### 2 4321-2, 1824-9, 78337-7, 2063-4 ####[facility] [id number] [place] [address] [place] Calcium [Mass/Vol] 10.3 mg/dL High 8.5-10.2 [facility] Comment on above: Order Comment: Speci men Type: BLOOD SPECIMENOrdering Facility: [facility] Address: [address] [place] [address] Performed By: #### 2 4321-2, 1825-9, 72783-4, 2063-4 ####[facility] [id number] [address] [place] Chloride [Moles/Vol] 100 mmol/L Normal 97-105 [facility] Comment on above: Order Comment: Speci men Type: BLOOD SPECIMENOrdering Facility: [facility] Address: [address] [place] [address] Performed By: #### 2 4321-2, 1824-9, 67021-8, 2063-10 ####[facility] [id number] [place] [address] [place] CO2 [Moles/Vol] 20 mmol/L Low 22-[address] [facility] Comment on above: Order Comment: Speci men Type: BLOOD SPECIMENOrdering Facility: [facility] Address: [address] [place] [address] Performed By: #### 2 4321-2, 9, 24699-6, 2063-10 ####[facility] [id number] [address] [place] Creatinine [Mass/Vol] 0.43 mg/dL Low 0.58-0.96 [facility] Comment on above: Order Comment: Speci men Type: BLOOD SPECIMENOrdering Facility: [facility] Address: [address] [place] [address] Performed By: #### 2 4321-2, 9, 61123-7, 2063-10 ####[facility] [id number] [address] [place] Creatinine and Glomerular filtration rate.predicted panel (S/P/Bld) 137 mL/min/1.73m??? Normal >=[address] [facility] Comment on above: Order Comment: Speci men Type: BLOOD SPECIMENOrdering Facility: [facility] Address: [address] [place] [address] Result Comment: Ebony mated Glomerular Filtration Rate [...] accurately reflect actual GFR. Performed By: #### 2 4321-2, 1825-03, 11250-8, 2063-10 ####[facility] [id number] [address] [address] [place] Glucose [Mass/Vol] 96 mg/dL Normal 74-99 [facility] Comment on above: Order Comment: Jim etienne Type: BLOOD SPECIMENOrdering Facility: [facility] Address: [address] [id number] Result Comment: The [place] Diabetes Association (ADA) provides guidance for cutoff [...] Standards of Medical Care in Diabetes 2016, [place] Diabetes Association. Diabetes Care. 2016.39(Suppl 1). Performed By: #### 2 4321-2, 1825-03, 00127-0, 2063-10 ####[facility] [id number] [facility] [address] [address] [place] Potassium [Moles/Vol] 3.9 mmol/L Normal 3.7-5.1 [facility] Comment on above: Order Comment: Jim etienne Type: BLOOD SPECIMENOrdering Facility: [facility] Address: [address] [place] [address] Performed By: #### 2 4321-2, 1825-03, 61154-3, 2063-10 ####[facility] [id number] [place] [address] [place] Sodium [Moles/Vol] 138 mmol/L Normal 136-144 [facility] Comment on above: Order Comment: Speci men Type: BLOOD SPECIMENOrdering Facility: [facility] Address: [address] [place] [address] Performed By: #### 2 4321-2, 1824-9, 10326-0, 2063-10 ####[facility] [id number] [place] [address] [place] Urea nitrogen [Mass/Vol] 7 mg/dL Normal 7-[address] [facility] Comment on above: Order Comment: Speci men Type: BLOOD SPECIMENOrdering Facility: [facility] Address: [address] [place] [address] Performed By: #### 2 4321-2, 9, 02258-0, 2063-10 ####[facility] [id number] [place] [address] [place] CBC W Auto Differential pane l (Bld)on 04-12-2023 Basophils (Bld) [#/Vol] 0.09 10*3/uL Normal <0.[address] [facility] Comment on above: Order Comment: Speci men Type: BLOOD SPECIMEN [facility] Facility[facility] Address: [address] [place] [address] Performed By: #### 3 4528-0 #### [facility] CLIA [id number] [facility] [place] [address] [place] Basophils/100 WBC (Bld) 1.0 % Normal [facility] Comment on above: Order Comment: Speci men Type: BLOOD SPECIMEN [facility] Address: [address] [place] [address] Performed By: #### 3 4528-0 #### [facility] CLIA [id number] [facility] [place] [address] [place] Differential cell count method Nom (Bld) Manual Normal [facility] Comment on above: Order Comment: Speci men Type: BLOOD SPECIMEN [facility] Address: [address] Performed By: #### 3 4528-0 #### [facility] CLIA [id number] [address] [place] [address] [place] Eosinophils (Bld) [#/Vol] 0.36 10*3/uL Normal <0.[address] [facility] Comment on above: Order Comment: Speci men Type: BLOOD SPECIMEN [facility] Facility[facility] Address: [address] [place], [place] [address] Performed By: #### 3 4528-0 #### [facility] CLIA [id number] [address] [place] [address] [place] Eosinophils/100 WBC (Bld) 4.0 % Normal [facility] Comment on above: Order Comment: Speci men Type: BLOOD SPECIMEN [facility] Facility[facility] Address: [address] [place], [place] [address] Performed By: #### 3 4528-0 #### [facility] CLIA [id number] [address] [place] [address] [place] Erythrocyte distribution width (RBC) [Ratio] 12.3 % Normal 11.5-15.[address] [facility] Comment on above: Order Comment: Speci men Type: BLOOD SPECIMEN [facility] Facility[facility] Address: [address] [place] [address] Performed By: #### 3 4528-0 #### [facility] CLIA [id number] [address] [place] [address] [place] Hematocrit (Bld) [Volume fraction] 43.8 % Normal 36.0-46.[address] [facility] Comment on above: Order Comment: Speci men Type: BLOOD SPECIMEN [facility] Facility[facility] Address: [address] [place], [place] [address] Performed By: #### 3 4528-0 #### [facility] CLIA [id number] [address] [place] [address] [place] Hemoglobin (Bld) [Mass/Vol] 14.5 g/dL Normal 11.5-15.[address] [facility] Comment on above: Order Comment: Speci men Type: BLOOD SPECIMEN [facility] Facility: [facility] Address: [address] Performed By: #### 3 4528-0 #### [facility] CLIA [id number] [address] [place] [address] [place] Lymphocytes (Bld) [#/Vol] 1.72 10*3/uL Normal 1.00-4.[address] [facility] Comment on above: Order Comment: Speci men Type: BLOOD SPECIMEN [facility] Facility[facility] Address: [address] Performed By: #### 3 4528-0 #### [facility] CLIA [id number] [address] [place] [address] [place] Lymphocytes/100 WBC (Bld) 19.0 % Normal [facility] Comment on above: Order Comment: Speci men Type: BLOOD SPECIMEN [facility] Address: [address] Performed By: #### 3 4528-0 #### [facility] CLIA [id number] [address] [place] [address] [place] MCH (RBC) [Entitic mass] 34.4 pg High 26.0-34.[address] [facility] Comment on above: Order Comment: Speci men Type: BLOOD SPECIMEN [facility] Facility[facility] Address: [address] Performed By: #### 3 4528-0 #### [facility] CLIA [id number] [address] [place] [address] [place] MCHC (RBC) [Mass/Vol] 33.1 g/dL Normal 30.5-36.0 [facility] Comment on above: Order Comment: Speci men Type: BLOOD SPECIMEN [facility] Facility[facility] Address: [address] [place] [address] Performed By: #### 3 4528-0 #### [facility] CLIA [id number] [address] [place] [address] [place] MCV (RBC) [Entitic vol] 104.0 fL High 80.0-100.0 [facility] Comment on above: Order Comment: Speci men Type: BLOOD SPECIMEN [facility] Address: [address] [place] [address] Performed By: #### 3 4528-0 #### [facility] CLIA [id number] [address] [place] [address] [place] Monocytes (Bld) [#/Vol] 0.27 10*3/uL Normal <0.[address] [facility] Comment on above: Order Comment: Speci men Type: BLOOD SPECIMEN [facility] Facility[facility] Address: [address] [place], [place] [address] Performed By: #### 3 4528-0 #### [facility] CLIA [id number] [facility] [place] [address] [place] Monocytes/100 WBC (Bld) 3.0 % Normal C [facility] Comment on above: Order Comment: Speci men Type: BLOOD SPECIMEN [facility] Facility[facility] Address: [address] [place], [place] [address] Performed By: #### 3 4528-0 #### [facility] CLIA [id number] [address] [place] [address] [place] MYELO% 3.0 % Normal [facility] Comment on above: Order Comment: Speci men Type: BLOOD SPECIMEN [facility] Facility[facility] Address: [address] Performed By: #### 3 4528-0 #### [facility] CLIA [id number] [address] [place] [address] [place] Neutrophils (Bld) [#/Vol] 6.33 10*3/uL Normal 1.45-7.[address] [facility] Comment on above: Order Comment: Speci men Type: BLOOD SPECIMEN [facility] Facility[facility] Address: [address] Performed By: #### 3 4528-0 #### [facility] CLIA [id number] [address] [place] [address] [place] Neutrophils/100 WBC (Bld) 70.0 % Normal [facility] Comment on above: Order Comment: Speci men Type: BLOOD SPECIMEN [facility] Facility[facility] Address: [address] Performed By: #### 3 4528-0 #### [facility] CLIA [id number] [address] [place] [address] [place] Nucleated RBC (Bld) [#/Vol] 10*3/uL Normal <0.[address] [facility] Comment on above: Order Comment: Speci men Type: BLOOD SPECIMEN [facility] Facility[facility] Address: [address] Performed By: #### 3 4528-0 #### [facility] CLIA [id number] [address] [place] [address] [place] Nucleated RBC/100 WBC (Bld) [Ratio] 0.0 /100 WBC Normal [facility] Comment on above: Order Comment: Speci men Type: BLOOD SPECIMEN [facility] Facility[facility] Address: [address] Performed By: #### 3 4528-0 #### [facility] CLIA [id number] [address] [place] [address] [place] Platelet mean volume (Bld) [Entitic vol] 10.1 fL Normal 9.0-12.[address] [facility] Comment on above: Order Comment: Speci men Type: BLOOD SPECIMEN [facility] Facility: [facility] Address: [address] [address] Performed By: #### 3 4528-0 #### [facility] CLIA [id number] [address] [place] [address] [place] Platelets (Bld) [#/Vol] 393 10*3/uL Normal 150-[address] [facility] Comment on above: Order Comment: Speci men Type: BLOOD SPECIMEN [facility] Facility[facility] Address: [address] [place] [address] Performed By: #### 3 4528-0 #### [facility] CLIA [id number] [address] [place] [address] [place] Platelets Estimate (Bld) [#/Vol] Adequate Normal [facility] Comment on above: Order Comment: Speci men Type: BLOOD SPECIMEN [facility] Facility[facility] Address: [address] [place] [address] Performed By: #### 3 4528-0 #### [facility] CLIA [id number] [address] [place] [address] [place] Polychromasia LM Ql (Bld) Slight Normal [facility] Comment on above: Order Comment: Speci men Type: BLOOD SPECIMEN [facility] Facility[facility] Address: [address] Performed By: #### 3 4528-0 #### [facility] CLIA [id number] [address] [place] [address] [place] RBC (Bld) [#/Vol] 4.21 10*6/uL Normal 3.90-5.20 [facility] Comment on above: Order Comment: Speci men Type: BLOOD SPECIMEN [facility] Facility[facility] Address: [address] [address] Performed By: #### 3 4528-0 #### [facility] CLIA [id number] [address] [place] [address] [place] RED CELL MORPH Reviewed: unremarkable Normal [facility] Comment on above: Order Comment: Speci men Type: BLOOD SPECIMEN [facility] Facility[facility] Address: [address] [address] Performed By: #### 3 4528-0 #### [facility] CLIA [id number] [address] [place] [address] [place] WBC (Bld) [#/Vol] 9.04 10*3/uL Normal 3.70-11.00 [facility] Comment on above: Order Comment: Speci men Type: BLOOD SPECIMEN [facility] Facility[facility] Address: [address] [address] Performed By: #### 3 4528-0 #### [facility] CLIA [id number] [address] [place] [address] [place] WBC Left Shift Ql (Bld) Present [facility] above: Order Comment: Speci men Type: BLOOD SPECIMEN [facility] Address: [address] [address] Performed By: #### 3 4528-0 #### [facility] CLIA [id number] [address] [place] [address] [place] CNOVon 04-12-2023 CNOV Office Visit (GASTA5 ) -------- FEGLEY,RICA ([id number]) 1995 F Date Time Provider Department 04/12/23 1:00 PM JEANNIE JARVIS GASTA5 During your visit today, we recorded the following information about you: Pulse Blood pressure Weight Height 112/minute 132/88 60.4 kg 1.626 m Jeannie Jarvis APRN.DIRECTOR OF CONSULTING SERVICES 05/24/2023 12:39 PM Signed NAME: Rica Stout [...] hematochezia, ascites, episodes of confusion. IMAGING/PROCEDURES: ABD 03/22/23: No past surgical history on file. [...] 9.0 Alb (more content not included)... Normal [facility] Centromere Ab IF Ql (S)on Centromere Ab Qn (S) <0.2 Normal <1.0 [facility] Comment on above: Order Comment: Speci lowell Type: BLOOD SPECIMENOrdering Facility: [facility] Address: [address] [place] [address] Result Comment: Anti -centromere antibody is used as in aid in diagnosis of systemic sclerosis. Clinical correlation is required. Test Methodology: Multiplex flow immunoassay. Performed By: #### 1 7791-5, 35607-8, 30633-8, 34852-8, 34992-2, ANAIFR, 87661-6, 10202-0, 15380-5, 09774-7, 11626-6, 56783-2 ####[facility] [id number] [place] [address] [place] CENTROMERE AB QUAL Negative Normal Negative [facility] Comment on above: Order Comment: Liliami lowell Type: BLOOD SPECIMENOrdering Facility: [facility] Address: [address] [address] Performed By: #### 1 7791-5, 90036-1, 83343-9, 13346-1, 38228-3, ANAIFR, 89384-4, 63563-6, 88773-5, 68406-4, 38870-1, 96699-5 ####[facility] [id number] [address] [address] [place] Ceruloplasmin SerPl-mCncon 0 04-12-2023 Ceruloplasmin [Mass/Vol] 29 mg/dL Normal 16-[address] [facility] Comment on above: Order Comment: Speci men Type: BLOOD SPECIMENOrdering Facility: [facility] Address: [address] [place] [address] Performed By: #### 2 4321-2, 1825-9, 00292-4, 2064-4 ####[facility] [id number] [address] [place] Chromatin Ab Qnon 04-12-2023 CHROMATIN AB QUAL Negative Normal Negative [facility] Comment on above: Order Comment: Speci men Type: BLOOD SPECIMENOrdering Facility: [facility] Address: [address] [place] [address] Performed By: #### 1 7791-5, 82420-6, 31226-9, 16019-9, 98038-6, ANAIFR, 40258-1, 27764-8, 65072-6, 53436-8, 22550-8, 32356-3 ####[facility] [id number] [address] STATES [facility] Chromatin Ab SerPl-aCncon Chromatin Ab Qn <0.2 Normal <1.[address] [facility] Comment on above: Order Comment: Speci men Type: BLOOD SPECIMENOrdering Facility: [facility] Address: [address] [place] [address] Result Comment: Test Methodology: Multiplex flow immunoassay. Performed By: #### 1 7791-5, 80051-5, 99093-5, 44529-7, 67377-2, ANAIFR, 95819-0, 18324-3, 22001-1, 29717-6, 43949-5, 56974-9 ####[facility] [id number] [address] [place] OMA Jo1 Ab Ser-aCncon 2022 Taylor-1 extractable nuclear Ab Qn (S) <0.2 Normal <1.[address] [facility] Comment on above: Order Comment: Speci men Type: BLOOD SPECIMENOrdering Facility: [facility] Address: [address] [place] [address] Performed By: #### 1 7791-5, 30902-8, 31891-2, 17473-4, 21998-1, ANAIFR, 88340-7, 99815-1, 19503-6, 84024-9, 60395-5, 25028-3 ####[facility] [id number] [place] [address] [place] OMA COVERING MACHINE TENDER Ab Ser-aCncon 2022 Ribonucleoprotein extractable nuclear Ab Qn (S) <0.2 Normal <1.[address] [facility] Comment on above: Order Comment: Speci men Type: BLOOD SPECIMENOrdering Facility: [facility] Address: [address] [place] [address] Performed By: #### 1 7791-5, 31751-2, 67888-9, 52594-6, 35699-9, ANAIFR, 04399-8, 42468-3, 98810-5, 90616-7, 92965-1, 12783-0 ####[facility] [id number] [place] [address] [place] Ribonucleoprotein extractable nuclear Ab Qn (S) 0.3 AI Normal <1.[address] [facility] Comment on above: Order Comment: Speci men Type: BLOOD SPECIMENOrdering Facility: [facility] Address: [address] [place] [address] Performed By: #### 1 7791-5, 35953-1, 25171-7, 86740-8, 83080-9, ANAIFR, 49198-5, 04591-9, 94408-4, 09552-6, 09904-1, 41338-3 ####[facility] [id number] [address] [place] OMA SM IgG Ser-aCncon 2022 Rico extractable nuclear IgG Qn (S) <0.2 Normal <1.[address] [facility] Comment on above: Order Comment: Speci men Type: BLOOD SPECIMENOrdering Facility: [facility] Address: [address] [place] [address] Performed By: #### 1 7791-5, 65030-0, 90493-7, 28989-5, 74347-5, ANAIFR, 79350-3, 92591-6, 81133-9, 00203-9, 18971-0, 99095-9 ####[facility] [id number] [address] [place] OMA SS-A Ab Ser-aCncon 04-12 Sjogrens syndrome-A extractable nuclear Ab Qn (S) <0.2 Normal <1.[address] [facility] Comment on above: Order Comment: Speci men Type: BLOOD SPECIMENOrdering Facility: [facility] Address: [address] [place] [address] Result Comment: Test Methodology: Multiplex flow immunoassay. Performed By: #### 1 7791-5, 05113-0, 58734-6, 98604-3, 54658-8, ANAIFR, 57381-2, 21676-6, 08163-4, 39035-9, 73419-1, 16503-2 ####[facility] [id number] [address] [place] OMA SS-B Ab Ser-aCncon 04-12 Sjogrens syndrome-B extractable nuclear Ab Qn (S) <0.2 Normal <1.[address] [facility] Comment on above: Order Comment: Speci men Type: BLOOD SPECIMENOrdering Facility: [facility] Address: [address] [place] [address] Result Comment: Anti -SSB (anti-La) antibody is used as an aid in diagnosis of a variety of systemic autoimmune diseases, especially for Sjogren's syndrome and systemic lupus erythematosus. Clinical correlation is required. Test Methodology: Multiplex flow immunoassay. Performed By: #### 1 7791-5, 56461-8, 94558-6, 15930-3, 29808-2, ANAIFR, 56802-2, 13658-8, 72582-1, 12136-8, 38485-7, 46084-9 ####[facility] [id number] [place] [address] [place] Ferritin SerPl-mCncon 2022 Ferritin [Mass/Vol] 667.0 ng/mL High 14.7-205.1 [facility] Comment on above: Order Comment: Speci men Type: BLOOD SPECIMENOrdering Facility: [facility] Address: [address] [place] [address] Performed By: #### 5 0190-8, 20481-5, 2276-4 ####[facility] [id number] [place] [address] [place] HBV core Ab Ser Qlon 023 HBV core Ab Ql (S) Positive Abnormal Negative [facility] Comment on above: Order Comment: Speci men Type: BLOOD SPECIMENOrdering Facility: [facility] Address: [address] [place] [address] Result Comment: The result suggests either current or past infection with Hepatitis B virus. Non-specific reactivity may at times be seen with this test due to some underlying phenomena. Please correlate with HBsAg result and medical history. Performed By: #### 5 195-3, 98115-4, 42468-2, AHAVG ####[facility] [id number] [place] [address] [place] HBV surface Ab Ql (S)on 03-23 HBV surface Ab Qn (S) 45.61 mIU/mL Normal [facility] Comment on above: Order Comment: Speci men Type: BLOOD SPECIMENOrdering Facility: [facility] Address: [address] [place] [address] Result Comment: <8 m IU/mL: No serological evidence of immunity to Hepatitis B Virus. >/= 8 to <12 mIU/mL: No serological evidence of immunity to Hepatitis B Virus. >/= 12 mIU/mL: Consistent with serological evidence of immunity to Hepatitis B Virus. Performed By: #### 5 195-3, 76508-0, 06119-5, AHAVG ####[facility] [id number] [address] OF [facility] HBV surface Ab Ser Qlon 03-23 HBV surface Ab Ql (S) Positive Normal [facility] Comment on above: Order Comment: Speci men Type: BLOOD SPECIMENOrdering Facility: [facility] Address: [address] [place] [address] Result Comment: Cons istent with serological evidence of immunity to Hepatitis B Virus. Performed By: #### 5 195-3, 40816-4, 75065-1, AHAVG ####[facility] [id number] [address] [place] HBV surface Ag Ser Qlon 03-23 HBV surface Ag Ql (S) Negative Normal Negative [facility] Comment on above: Order Comment: Speci men Type: BLOOD SPECIMENOrdering Facility: [facility] Address: [address] [place] [address] Performed By: #### 5 195-3, 42709-3, 88429-6, AHAVG ####[facility] [id number] [address] OF [facility] HCV Ab Ser Qlon 04-12-2023 HCV Ab Ql (S) Negative Normal Negative [facility] Comment on above: Order Comment: Speci men Type: BLOOD SPECIMENOrdering Facility: [facility] Address: [address] [place] [address] Result Comment: The result suggests no evidence of active infection with Hepatitis C virus. Should recent infection be suspected, repeat testing may be considered 4-6 weeks after this draw. Performed By: #### 1 6128-1 ####[facility] [id number] [place] [address] [place] HEPATITIS A ANTIBODY, IGGon 04-12-2023 HAV IgG Ql (S) Negative Normal [facility] Comment on above: Order Comment: Speccari etienne Type: BLOOD SPECIMENOrdering Facility: [facility] Address: [address] [address] Result Comment: No s erological evidence of immunity to Hepatitis A Virus. Performed By: #### 5 195-3, 33862-1, 25794-8, AHAVG ####[facility] [id number] [address] [place] HFE (HEMOCHROMATOSIS)on 03-23 INTERPRETATION (HEMDNA) Normal [facility] Comment on above: Order Comment: Jim etienne Type: BLOOD SPECIMENOrdering Facility: [facility] Address: [address] [place] [address] Result Comment: HFE (Hemochromatosis) Laboratory Accession Number: [id number] Result: C282Y: WT H63D: WT S65C: WT Interpretation: No variant detected: The DNA sample is negative for the C282Y, H63D and S65C variants of the HFE gene. Variants at these loci are commonly associated with hereditary hemochromatosis (HH). Approximately 13% of clinically affected individuals may have this negative result, suggesting other etiologies for hereditary hemochromatosis. Methodology: Patient DNA is evaluated for C282Y (c.845G>A, p.Lsx387Ixc, NM_000410.3), H63D (c.187C>G, p.Cop53Lad, NM_000410.3) and S65C variant (c.193A>T, p.Nwu48Bac, NM_000410.3) missense variants in the HFE gene (NM_000410.3, GRCh37(hg19)) by multiplex polymerase chain reaction (PCR) followed by melting curve analysis. Disclaimer: This test was developed and its performance characteristics determined by [facility] [place] ([facility]). It has not been cleared or approved by the FDA. -[facility] is regulated under CLIA as certified to perform high- complexity testing. This test is used for clinical purposes. It should not be regarded as investigational or for research. Testing and interpretation performed at [facility], [address] [place] [address]. CLIA Number: [id number] As reviewed by Saritha Swan MD Performed By: #### H EMDNA ####[facility] [id number] [place] [address] [place] HbA1c (Bld)on 04-12-2023 Average glucose Estimated from glycated hemoglobin (Bld) [Mass/Vol] 85 mg/dL Normal [facility] Comment on above: Order Comment: Speccari [facility] Type: BLOOD SPECIMEN [facility] Address: [address] [place] [address] Result Comment: eAG: (Estimated average glucose) is a calculated value from HgbA1c and is employment representative of the average blood glucose level in the last 2-3 month period. Performed By: #### 3 4528-0 #### [facility] CLIA [id number] [address] [place] [address] STATES OF [facility] HbA1c (Bld) [Mass fraction] 4.6 % Normal 4.3-5.[address] [facility] Comment on above: Order Comment: Jim etienne Type: BLOOD SPECIMEN [facility] Address: [address] [place] [address] Result Comment: Amer ican Diabetes Association guidelines indicate that patients with HgbA1c in the range 5.7-6.4% are at increased risk for development of diabetes, and intervention by lifestyle modification may be beneficial. HgbA1c greater or equal to 6.5% is considered diagnostic of diabetes. Performed By: #### 3 4528-0 #### [facility] CLIA [id number] [address] [place] [address] [place] Hepatic function 2000 panelo n 04-12-2023 Albumin [Mass/Vol] 4.4 g/dL Normal 3.9-4.9 [facility] Comment on above: Order Comment: Speci men Type: BLOOD SPECIMENOrdering Facility: [facility] Address: [address] [place] [address] Performed By: #### 2 4321-2, 1825-03, 57313-5, 2063-10 ####[facility] [id number] [place] [address] [place] ALP [Catalytic activity/Vol] 78 U/L Normal 34-[address] [facility] Comment on above: Order Comment: Speci men Type: BLOOD SPECIMENOrdering Facility: [facility] Address: [address] [place] [address] Performed By: #### 2 432-2, 1825-03, , 2063-10 ####[facility] [id number] [place] [address] [place] ALT [Catalytic activity/Vol] 81 U/L High 7-[address] [facility] Comment on above: Order Comment: Speci men Type: BLOOD SPECIMENOrdering Facility: [facility] Address: [address] [place] [address] Performed By: #### 2 4321-2, 1825-03, , 2063-10 ####[facility] [id number] [address] [place] AST [Catalytic activity/Vol] 76 U/L High 13-[address] [facility] Comment on above: Order Comment: Speci men Type: BLOOD SPECIMENOrdering Facility: [facility] Address: [address] [place] [address] Performed By: #### 2 4321-2, 1825-03, 05093-2, 2063-10 ####[facility] [id number] [place] [address] [place] Bilirubin [Mass/Vol] 0.5 mg/dL Normal 0.2-1.3 [facility] Comment on above: Order Comment: Speci men Type: BLOOD SPECIMENOrdering Facility: [facility] Address: [address] [place] [address] Performed By: #### 2 4321-2, 1829, 47912-4, 2063-10 ####[facility] [id number] [place] [address] [place] Bilirubin.conjugated [Mass/Vol] mg/dL Normal <0.[address] [facility] Comment on above: Order Comment: Speci men Type: BLOOD SPECIMENOrdering Facility: [facility] Address: [address] [place] [address] Performed By: #### 2 4321-2, 1829, 46273-2, 2063-10 ####[facility] [id number] [place] [address] [place] Protein [Mass/Vol] 7.7 g/dL Normal 6.3-8.0 [facility] Comment on above: Order Comment: Speci men Type: BLOOD SPECIMENOrdering Facility: [facility] Address: [address] [place] [address] Performed By: #### 2 4321-2, 1829, 07599-5, 2063-10 ####[facility] [id number] [place] [address] [place] Iron and Iron binding capaci ty panelon 04-12-2023 Iron [Mass/Vol] 138 ug/dL Normal 41-[address] [facility] Comment on above: Order Comment: Speci men Type: BLOOD SPECIMENOrdering Facility: [facility] Address: [address] [place] [address] Performed By: #### 5 0190-8, 77639-5, 2276-4 ####[facility] [id number] [place] [address] [place] Iron binding capacity [Mass/Vol] 408 ug/dL High 232-[address] [facility] Comment on above: Order Comment: Speci men Type: BLOOD SPECIMENOrdering Facility: [facility] Address: [address] [place] [address] Performed By: #### 5 0190-8, 79771-7, 2275-10 ####[facility] [id number] [place] [address] [place] Iron/TIBC [Molar ratio] 33.8 % Normal 15.0-57.0 [facility] Comment on above: Order Comment: Speci men Type: BLOOD SPECIMENOrdering Facility: [facility] Address: [address] [place] [address] Performed By: #### 5 0190-8, 49835-2, 2275-10 ####[facility] [id number] [place] [address] [place] Taylor-1 extractable nuclear Ab Qn (S)on 04-12-2023 TAYLOR 1 ANTIBODY QUAL Negative Normal Negative [facility] Comment on above: Order Comment: Speci men Type: BLOOD SPECIMENOrdering Facility: [facility] Address: [address] [place] [address] Result Comment: Anti -TAYLOR-1 antibody is used as an aid in diagnosis of polymyositis and dermatomyositis especially with pulmonary involvement. A negative result cannot rule out polymyositis or dermatomyositis. Clinical correlation is required. Test Methodology: Multiplex flow immunoassay. Performed By: #### 1 7791-5, 28303-4, 71914-3, 66807-6, 54906-2, ANAIFR, 58437-2, 31476-3, 30517-1, 55297-8, 09344-0, 79519-1 ####[facility] [id number] [place] [address] [place] LKM ABon 04-12-2023 LIVER-KIDNEY MICROSOMAL ABS <1:20 Normal <1:[address] [facility] Comment on above: Order Comment: Speci men Type: BLOOD SPECIMEN [facility] Address: [address] [place], [place] [address] Result Comment: INTE RPRETIVE INFORMATION: Gdiwl-Ciajhz-Emgqqejgw Abs, IgG Liver-Kidney Microsome IgG antibody (anti-LKM), as detected by indirect immunofluorescent antibody (IFA) techniques, may be observed in patients with autoimmune hepatitis type 2 (AIH-2), AIH-2 associated with autoimmune oivauvgilygjpeykju-wocsvqbysxg-lrrayymizp dystrophy (APECED), viral hepatitis C or D, and some forms of drug-induced hepatitis. This IFA does not differentiate among the four types of LKM antibodies (LKM-1, LKM-2, LKM-3, and a fourth type that recognizes CY and CY antigens). Of these, anti-LKM-1 (cytochrome W160LMB5) IgG antibodies are considered specific for AIH-2. This test was developed and its performance characteristics determined by [facility]. It has not been cleared or approved by the US Food and Drug Administration. This test was performed in a CLIA certified laboratory and is intended for clinical purposes. Performed By: [facility] [address] [place], [place] [id number] Souvenir Assembler: Luis Blunt MD, PhD CLIA Number: [id number] Performed By: #### 3 4528-0 #### [facility] CLIA [id number] [address] [place] [address] [place] Lipid 1996 panelon 3 Cholesterol [Mass/Vol] 272 mg/dL High <[address] [facility] Comment on above: Order Comment: Speci men Type: BLOOD SPECIMENOrdering Facility: [facility] Address: [address] [place] [address] Result Comment: <200 mg/dL, Desirable 200-239 mg/dL, Borderline high >239 mg/dL, High Performed By: #### 5 0190-8, 35317-5, 2275-10 ####[facility] [id number] [address] OF [facility] Cholesterol in HDL [Mass/Vol] 51 mg/dL Normal >[address] [facility] Comment on above: Order Comment: Jim etienne Type: BLOOD SPECIMENOrdering Facility: [facility] Address: [address] [place] [address] Result Comment: 40-5 9 mg/dL, Acceptable >59 mg/dL, High: Negative risk factor for coronary heart disease <40 mg/dL, Low: Positive risk factor for coronary heart disease Performed By: #### 5 0190-8, 91935-2, 2275-10 ####[facility] [id number] [address] Cholesterol in LDL [Mass/Vol] 173 mg/dL High <[address] [facility] Comment on above: Order Comment: Jim lowell Type: BLOOD SPECIMENOrdering Facility: [facility] Address: [address] [place] [address] Result Comment: <100 mg/dL, Optimal 100-129 mg/dL, Near optimal/above optimal 130-159 mg/dL, Borderline high 160-189 mg/dL, High >189 mg/dL, Very high Secondary prevention optimal LDL Cholesterol levels are recommended to be < 70 mg/dL Performed By: #### 5 0190-8, 79405-4, 2275-10 ####[facility] [id number] [address] OF [facility] Cholesterol in LDL/Cholesterol in HDL [Mass ratio] 3.39 {ratio} High <2.[address] [facility] Comment on above: Order Comment: Jim etienne Type: BLOOD SPECIMENOrdering Facility: [facility] Address: [address] [place] [address] Result Comment: Refe rence: 1. National Cholesterol Education Program ATP III Guideline At-A-Glance Quick Desk Reference: National Heart, Lung, and Blood [place]. National Institutes of Health. 2001: NIH Publication No. 01-3305. 2. An International Atherosclerosis Society position paper: global recommendations for the management of dyslipidemia: executive summary, Atherosclerosis. 2014: 232(2):410-413. Performed By: #### 5 0190-8, 58503-5, 2275-10 ####[facility] [id number] [place] [address] [place] Cholesterol in VLDL [Mass/Vol] 48 mg/dL High <[address] [facility] Comment on above: Order Comment: Speci men Type: BLOOD SPECIMENOrdering Facility: [facility] Address: [address] [address] Performed By: #### 5 0190-8, 84075-9, 2275-10 ####[facility] [id number] [place] [address] [place] Cholesterol non HDL [Mass/Vol] 221 mg/dL High <[address] [facility] Comment on above: Order Comment: Speci men Type: BLOOD SPECIMENOrdering Facility: [facility] Address: [address] [address] Result Comment: <130 mg/dL, Optimal 130-159 mg/dL, Near optimal/above optimal 160-189 mg/dL, Borderline high 190-219 mg/dL, High >219 mg/dL, Very high Secondary prevention optimal non HDL Cholesterol levels are recommended to be <100 mg/dL Performed By: #### 5 0190-8, 62922-3, 2275-10 ####[facility] [id number] [place] [address] [place] Cholesterol.total/Shannon sterol in HDL [Mass ratio] 5.33 {ratio} High <5.[address] [facility] Comment on above: Order Comment: Speci men Type: BLOOD SPECIMENOrdering Facility: [facility] Address: [address] [address] Performed By: #### 5 0190-8, 02650-0, 2275- ####[facility] [id number] [address] [place] FASTING TIME 12 hrs Normal [facility] Comment on above: Order Comment: Speci men Type: BLOOD SPECIMENOrdering Facility: [facility] Address: [address] [place] [address] Performed By: #### 5 0190-8, 50275-0, 6-4 ####[facility] [id number] [place] [address] [place] Triglyceride [Mass/Vol] 238 mg/dL High <150 [facility] Comment on above: Order Comment: Speci men Type: BLOOD SPECIMENOrdering Facility: [facility] Address: [address] [place] [address] Result Comment: <150 mg/dL, Normal 150-199 mg/dL, Borderline high 200-499 mg/dL, High >499 mg/dL, Very high Performed By: #### 5 0190-8, 90725-0, 2275-10 ####[facility] [id number] [place] [address] [place] Mitochondria Ab IF Ql (S)on 04-12-2023 Mitochondria M2 Ab IA Qn (S) 2.4 Units Normal <=20.[address] [facility] Comment on above: Order Comment: Speci men Type: BLOOD SPECIMENOrdering Facility: [facility] Address: [address] [place] [address] Performed By: #### 1 7791-5, 10969-3, 91376-5, 45645-0, 62953-6, ANAIFR, 70199-7, 41119-1, 17567-9, 91190-9, 87620-3, 36329-4 ####[facility] [id number] [address] [place] Mitochondria M2 Ab Ql (S) Negative Normal Negative [facility] Comment on above: Order Comment: Speci men Type: BLOOD SPECIMENOrdering Facility: [facility] Address: [address] [address] Result Comment: Anti -mitochondrial antibody test is used as an aid in diagnosis of primary biliary cholangitis. Clinical correlation is required. Performed By: #### 1 7791-5, 84331-3, 92408-8, 40173-1, 43127-1, ANAIFR, 62364-8, 15587-2, 06759-0, 71645-0, 92345-8, 83621-5 ####[facility] [id number] [place] [address] [place] PHOSPHATIDYLETHANOL (PETH)on 04-12-2023 EER PETH See Note Normal [facility] Comment on above: Order Comment: Speci men Type: BLOOD SPECIMEN [facility] Address: [address] [place] [address] Result Comment: Auth orized individuals can access the Boostable Enhanced Report using the following link: [email or web address] Performed By: [facility] [address] [place] [address] Souvenir Assembler: Luis Blunt MD, PhD CLIA Number: [id number] Performed By: #### 3 4528-0 #### [facility] CLIA [id number] [address] [place] [address] [place] PETH 16:0/18.2 (PLPETH) 228 ng/mL [facility] Comment on above: Order Comment: Speci men Type: BLOOD SPECIMEN [facility] Address: [address] [address] Performed By: #### 3 4528-0 #### [facility] CLIA [id number] [address] [place] [address] [place] PETH 16:0/18:1 (POPETH) 243 ng/mL Normal [facility] Comment on above: Order Comment: Speci men Type: BLOOD SPECIMEN [facility] Address: [address] [place] [address] Result Comment: INTE RPRETIVE INFORMATION:Phosphatidylethanol (PEth), Whole [...] developed and its performance characteristics determined by [facility]. It has not been cleared or approved by the U.S. Food and Drug Administration. This test was performed in a CLIA-certified laboratory and is intended for clinical purposes. Performed By: #### 3 4528-0 #### [facility] CLIA [id number] [address] [facility] [address] [address] [place] PT panel Coag (PPP)on 2022 INR Coag (PPP) [Relative time] 1.0 {INR} Normal 0.9-1.[address] [facility] Comment on above: Order Comment: Jim etienne Type: BLOOD SPECIMEN [facility] Address: [address] [address] Result Comment: Adrienne min K Antagonist (VKA) Therapeutic Range: INR 2 to 3 (Target INR of 2.5) Note: For patients treated with VKA drugs, such as warfarin, the [place] [employer] 2012 Guideline recommends [...] Chest 2012, 141:7S-47S Mamadou RA, et al. JACC 2017, 70: 252-289 Performed By: #### 3 4528-0 #### [facility] [place] [id number] [address] [place] [address] [place] PT Coag (PPP) [Time] 10.4 s Normal 9.7-13.0 [facility] Comment on above: Order Comment: Jim etienne Type: BLOOD SPECIMEN [facility] Address: [address] [place] [address] Performed By: #### 3 4528-0 #### [facility] [place] [id number] [address] [place] [address] [place] Ribonucleoprotein extractabl e nuclear Ab Qn (S)on 04-12-2023 ANTI-COVERING MACHINE TENDER QUAL Negative Normal Negative [facility] Comment on above: Order Comment: Speci men Type: BLOOD SPECIMENOrdering Facility: [facility] Address: [address] [address] Performed By: #### 1 7791-5, 46536-6, 53231-4, 08581-9, 51352-1, ANAIFR, 83498-1, 64006-6, 99823-2, 38786-6, 97828-3, 38526-4 ####[facility] [id number] [place] [address] [place] RIBOSOMAL COVERING MACHINE TENDER QUAL Negative Normal Negative [facility] Comment on above: Order Comment: Speci men Type: BLOOD SPECIMENOrdering Facility: [facility] Address: [address] [place] [address] Result Comment: Anti -Ribosomal RNA (Ribosomal P) antibody is used as an aid in diagnosis of systemic autoimmune diseases especially systemic lupus erythematosus and mixed connective tissue disease. Cross-reactivity with Anti-rico antibody is not uncommon. Clinical correlation is required. Test Methodology: Multiplex flow immunoassay. Performed By: #### 1 7791-5, 51545-9, 07235-2, 12232-9, 41941-6, ANAIFR, 37575-4, 87408-3, 19873-9, 09070-1, 20623-7, 30301-5 ####[facility] [id number] [place] [address] [place] SCL-70 extractable nuclear I gG IA Qn (S)on 04-12-2023 SCLERODERMA AB QUAL Negative Normal Negative [facility] Comment on above: Order Comment: Speci men Type: BLOOD SPECIMENOrdering Facility: [facility] Address: [address] [address] Performed By: #### 1 7791-5, 85147-0, 22589-7, 69207-3, 90378-2, ANAIFR, 72184-2, 22399-6, 90898-1, 53436-6, 11949-5, 71340-6 ####[facility] [id number] [place] [address] [place] SCLERODERMA IGG AB <0.2 Normal <1.0 [facility] Comment on above: Order Comment: Speci men Type: BLOOD SPECIMENOrdering Facility: [facility] Address: [address] [place] [address] Result Comment: Scl- 70/Scleroderma antibody test is used as an aid in diagnosis of systemic sclerosis especially the diffuse cutaneous form. A negative result cannot rule out systemic sclerosis. The final interpretation should consider clinical picture and other test results such as anti-centromere antibody. Test Methodology: Multiplex flow immunoassay. Performed By: #### 1 7791-5, 08272-4, 17011-1, 86870-9, 83473-1, ANAIFR, 23187-1, 97227-1, 22440-6, 12448-8, 28060-8, 41277-1 ####[facility] [id number] [place] [address] [place] Sjogrens syndrome-A extracta ble nuclear Ab Qn (S)on 04-12-2023 SSA ANTIBODY QUAL Negative Normal Negative [facility] Comment on above: Order Comment: Speci men Type: BLOOD SPECIMENOrdering Facility: [facility] Address: [address] [place] [address] Performed By: #### 1 7791-5, 07144-7, 95659-1, 27506-1, 53849-8, ANAIFR, 41365-0, 51629-2, 42100-4, 03548-5, 66023-5, 43008-7 ####[facility] [id number] [place] [address] [place] Sjogrens syndrome-B extracta ble nuclear Ab Qn (S)on 04-12-2023 SSB ANTIBODY QUAL Negative Normal Negative [facility] Comment on above: Order Comment: Speci men Type: BLOOD SPECIMENOrdering Facility: [facility] Address: [address] [place] [address] Performed By: #### 1 7791-5, 25669-2, 03340-3, 52090-5, 41906-6, ANAIFR, 50141-9, 56172-0, 44414-2, 65025-9, 05610-1, 25344-9 ####[facility] [id number] [place] [address] [place] Rico extractable nuclear Ig G Qn (S)on 04-12-2023 SM ANTIBODY QUAL Negative Normal Negative [facility] Comment on above: Order Comment: Speci men Type: BLOOD SPECIMENOrdering Facility: [facility] Address: [address] [place] [address] Result Comment: Anti -Sm (Rico) antibody is used as an aid in diagnosis of systemic lupus erythematosus and its presence is associated with renal disease. A negative result cannot rule out systemic lupus erythematosus. Clinical correlation is required. Test Methodology: Multiplex flow immunoassay. Performed By: #### 1 7791-5, 13910-7, 43472-4, 05034-0, 29257-8, ANAIFR, 22230-8, 26789-0, 81918-4, 58486-1, 08424-6, 34084-3 ####[facility] [id number] [place] [address] [place] Smooth muscle Ab Ql (S)on ACTIN SMOOTH MUSCLE IGG QUALITATIVE Negative Normal Negative [facility] Comment on above: Order Comment: Speci men Type: BLOOD SPECIMENOrdering Facility: [facility] Address: [address] [address] Performed By: #### 1 7791-5, 01474-1, 57576-3, 81591-2, 56435-4, ANAIFR, 78656-1, 22851-8, 75733-3, 26360-4, 30096-8, 95717-4 ####[facility] [id number] [place] [address] [place] ACTIN SMOOTH MUSCLE IGG QUANTITATIVE 3 Units Normal <[address] [facility] Comment on above: Order Comment: Speci men Type: BLOOD SPECIMENOrdering Facility: [facility] Address: [address] [address] Performed By: #### 1 7791-5, 36524-4, 65855-7, 78613-4, 34500-4, ANAIFR, 46223-0, 93759-5, 62651-5, 46571-1, 28968-9, 95770-3 ####[facility] [id number] [address] [place] dsDNA Ab Ser IA-aCncon 04-12 DNA double strand Ab IA Qn (S) <12 Normal <[address] [facility] Comment on above: Order Comment: Speci men Type: BLOOD SPECIMENOrdering Facility: [facility] Address: [address] [place] [address] Result Comment: Nega tive for ds DNA Antibodies. <30 IU/mL Negative 30-74 IU/mL Equivocal >74 IU/mL Positive Performed By: #### 1 7791-5, 13616-8, 27838-1, 82720-4, 45615-2, ANAIFR, 67422-0, 28680-6, 95909-8, 28632-7, 13227-3, 09789-8 ####[facility] [id number] [address] OF [place] CNPNon 04-11-2023 CNPN Telephone (GASTA5) -------- RICA STOUT ([id number]) 1995 F Date Time Provider Department 04/11/23 MARY CAGLE ([facility]) GASTA5 During your visit today, we [...] Encounter Status:Closed by MARY CAGLE on 04/11/23 [facility] Telephone (GASTA5) -------- RICA STOUT ([id number]) 1995 F Date Time Provider Department 04/11/23 JEANNIE JARVIS GASTA5 During your visit today, we recorded the following information about you: Gretta Ribeiro 04/11/2023 3:29 PM Signed Received outside medical records from [facility], scanned into her chart under scanned docs tab in Patient Home Monitoring. Allergies As of Date: 04/11/2023 Noted Allergy [...] Status:Closed by GRETTA RIBEIRO on 07/23/[address] [facility] MR cervical spine wo/w conon 04-01-2023 MR cervical spine wo/w con [facility] [place] [address] [place] [address] MRI Report Signed Patient: Rica Stout MR#: [id number] 39 : 1995 Acct:[id number] Age/Sex: 27 / F ADM Date: 03/27/23 Loc: Room: [address] [place] [address] Type: ADM IN Attending Dr: Marc Giron [...] Lowell Blake M.D.04/01/2023 5:09 PM Dictation Location: [place] [address] Transcribed By: RAJESH 04/01/231708 Dictated By: Lowell Blake II, MD 04/01/231704 Signed By: 04/01/231708 Normal [facility] US venous duplex LE BIon US venous duplex LE BI [facility] [place] [address] [place] [address] Ultrasound Report Signed Patient: Rica Stout MR#: [id number] 39 : 1995 Acct:[id number] Age/Sex: 27 / F ADM Date: 03/27/23 Loc: Room: 1P4409-5 Type: ADM IN Attending Dr: Marc Giron [...] Dave Gonzalez M.D.04/01/2023 3:37 PM Dictation Location: [facility]04 Tech: Nia Hill Transcribed By: RAJESH 04/01/231536 Dictated By: Dave Gonzalez MD 04/01/231536 Signed By: 09/11/23 1537 Normal [facility] ECG 12 lead ECGon 03-31-2023 ECG 12 lead ECG [facility] [place] [address] [place] [address] Electrocardiograph Report Signed Patient: Rica Stout MR#: [id number] 39 : 1995 Acct:[id number] Age/Sex: 27 / F ADM Date: 03/27/23 Loc: Room: [address] [place] [address] Type: ADM IN Attending Dr: Marc Giron [...] MUS Signed By Tika Lawrence MD 0 03/31/23 2019 Normal [facility] Alanine aminotransferase [En zymatic activity/volume] in Serum or PlasmaOrdered By: Marc Giron on 03-28-2023 ALT [Catalytic activity/Vol] 31 U/L Normal 7-52 [facility] Comment on above: Performed By: #### C REAT, ESR, CRP, HEPATIC, CK, CBC, MISC LAB #### [facility] [address] [id number] [place] #### ANTI-KU AB, MITOM2, CH50, PAT, RNA POLYMR, C3, C4 #### [facility] , Albumin [Mass/volume] in Ser um or Plasma by Bromocresol green (BCG) dye binding methoOrdered By: Marc Giron on 03-28-2023 Albumin BCG dye [Mass/Vol] 3.3 g/dL 3.5-5.7 [facility] Alkaline phosphatase [Enzyma tic activity/volume] in Serum or PlasmaOrdered By: Marc Giron on 03-28-2023 ALP [Catalytic activity/Vol] 95 U/L Normal 34-104 [facility] Comment on above: Performed By: #### C REAT, ESR, CRP, HEPATIC, CK, CBC, MISC LAB #### [place] [address] [place] #### ANTI-KU AB, MITOM2, CH50, PAT, RNA POLYMR, C3, C4 #### [facility] , Aspartate aminotransferase [ Enzymatic activity/volume] in Serum or PlasmaOrdered By: Marc Mack on 03-28-2023 AST [Catalytic activity/Vol] 55 U/L High 13-39 [facility] Comment on above: Performed By: #### C REAT, ESR, CRP, HEPATIC, CK, CBC, MISC LAB #### [place] [address] [place] #### ANTI-KU AB, MITOM2, CH50, PAT, RNA POLYMR, C3, C4 #### [facility] , Automated basophil %Ordered By: Marc Mack on 03-28-2023 Basophils/100 WBC (Bld) 1.4 % Normal . [facility] Comment on above: Performed By: #### C REAT, ESR, CRP, HEPATIC, CK, CBC, MISC LAB #### [place] [address] [place] #### ANTI-KU AB, MITOM2, CH50, PAT, RNA POLYMR, C3, C4 #### [facility] , Automated basophil countOrde red By: Marc Mack on 03-28-2023 Basophils (Bld) [#/Vol] 0.1 10*3/uL Normal 0.0-0.2 [facility] Comment on above: Result Comment: PERF ORMED BY: [place] [address] PATHOLOGIST CASING PULLER RUIZ CLIFTON M.D. Performed By: #### C REAT, ESR, CRP, HEPATIC, CK, CBC, MISC LAB #### [place] [address] [place] #### ANTI-KU AB, MITOM2, CH50, PAT, RNA POLYMR, C3, C4 #### [facility] , Automated blood monocyte cou ntOrdered By: Marc Giron on 03-28-2023 Monocytes (Bld) [#/Vol] 0.5 10*3/uL Normal 0.0-0.8 [facility] Comment on above: Performed By: #### C REAT, ESR, CRP, HEPATIC, CK, CBC, MISC LAB #### [place] [address] [place] #### ANTI-KU AB, MITOM2, CH50, PAT, RNA POLYMR, C3, C4 #### [facility] , Automated eosinophil %Ordere d By: Marc Giron on 03-28-2023 Eosinophils/100 WBC (Bld) 5.0 % Normal . [facility] Comment on above: Performed By: #### C REAT, ESR, CRP, HEPATIC, CK, CBC, MISC LAB #### [place] [address] [place] #### ANTI-KU AB, MITOM2, CH50, PAT, RNA POLYMR, C3, C4 #### [facility] , Automated eosinophil countOr dered By: Marc Giron on 03-28-2023 Eosinophils (Bld) [#/Vol] 0.3 10*3/uL Normal 0.0-0.45 [facility] Comment on above: Performed By: #### C REAT, ESR, CRP, HEPATIC, CK, CBC, MISC LAB #### [place] [address] [place] #### ANTI-KU AB, MITOM2, CH50, PAT, RNA POLYMR, C3, C4 #### [facility] , Automated monocyte %Ordered By: Marc Giron on 03-28-2023 Monocytes/100 WBC (Bld) 7.5 % Normal . [facility] Comment on above: Performed By: #### C REAT, ESR, CRP, HEPATIC, CK, CBC, MISC LAB #### [facility] [address] [place] [address] [place] #### ANTI-KU AB, MITOM2, CH50, PAT, RNA POLYMR, C3, C4 #### [facility] , Automated neutrophil %Ordere d By: Marc Giron on 03-28-2023 Neutrophils/100 WBC (Bld) 55.2 % Normal . [facility] Comment on above: Performed By: #### C REAT, ESR, CRP, HEPATIC, CK, CBC, MISC LAB #### [place] [address] [place] #### ANTI-KU AB, MITOM2, CH50, PAT, RNA POLYMR, C3, C4 #### [facility] , Bilirubin.total [Mass/volume ] in Serum or PlasmaOrdered By: Marc Giron on 03-28-2023 Bilirubin [Mass/Vol] 0.3 mg/dL Normal 0.3-1.0 [facility] Comment on above: Performed By: #### C REAT, ESR, CRP, HEPATIC, CK, CBC, MISC LAB #### [place] [address] [place] #### ANTI-KU AB, MITOM2, CH50, PAT, RNA POLYMR, C3, C4 #### [facility] , Calcium [Mass/volume] in Ser um or PlasmaOrdered By: Marc Giron on 03-28-2023 Calcium [Mass/Vol] 9.2 mg/dL Normal 8.6-10.[address] [facility] Comment on above: Performed By: #### C REAT, ESR, CRP, HEPATIC, CK, CBC, MISC LAB #### [place] [address] [place] #### ANTI-KU AB, MITOM2, CH50, PAT, RNA POLYMR, C3, C4 #### [facility] , Carbon dioxide, total [Moles /volume] in Serum or PlasmaOrdered By: Marc Mack on 03-28-2023 CO2 [Moles/Vol] 23.5 mmol/L Normal 21.0-31.0 [facility] Comment on above: Performed By: #### C REAT, ESR, CRP, HEPATIC, CK, CBC, MISC LAB #### [place] [address] [place] #### ANTI-KU AB, MITOM2, CH50, PAT, RNA POLYMR, C3, C4 #### [facility] , Chloride [Moles/volume] in S caitlyn or PlasmaOrdered By: Marc Giron on 03-28-2023 Chloride [Moles/Vol] 106 mmol/L Normal 98-107 [facility] Comment on above: Performed By: #### C REAT, ESR, CRP, HEPATIC, CK, CBC, MISC LAB #### [place] [address] [place] #### ANTI-KU AB, MITOM2, CH50, PAT, RNA POLYMR, C3, C4 #### [facility] , Complete Blood Count Auto Di ffon 03-28-2023 Mean Corpuscular HGB Conc 33.7 g/dL Normal 32.0-35.0 [facility] Comment on above: Performed By: #### C REAT, ESR, CRP, HEPATIC, CK, CBC, MISC LAB #### [place] [address] [place] #### ANTI-KU AB, MITOM2, CH50, PAT, RNA POLYMR, C3, C4 #### [facility] , NRBC% 0.2 /100{WBC} Normal 0-0.5 [facility] Comment on above: Performed By: #### C REAT, ESR, CRP, HEPATIC, CK, CBC, MISC LAB #### [place] [address] [place] #### ANTI-KU AB, MITOM2, CH50, PAT, RNA POLYMR, C3, C4 #### [facility] , Comprehensive Metabolic Pane antione 03-28-2023 Albumin [Mass/Vol] 3.3 g/dL Low 3.5-5.7 [facility] Comment on above: Performed By: #### C REAT, ESR, CRP, HEPATIC, CK, CBC, MISC LAB #### [place] [address] [place] #### ANTI-KU AB, MITOM2, CH50, PAT, RNA POLYMR, C3, C4 #### [facility] , Creatinine Clr Calc Pharmacy 169.70 Normal [facility] Comment on above: Performed By: #### C REAT, ESR, CRP, HEPATIC, CK, CBC, MISC LAB #### [address] #### ANTI-KU AB, MITOM2, CH50, PAT, RNA POLYMR, C3, C4 #### [facility] , GFR/1.73 sq M.predicted MDRD (S/P/Bld) [Vol rate/Area] mL/min/{1.73_m2} Normal [facility] Comment on above: Performed By: #### C REAT, ESR, CRP, HEPATIC, CK, CBC, MISC LAB #### [place] [address] [place] #### ANTI-KU AB, MITOM2, CH50, PAT, RNA POLYMR, C3, C4 #### [facility] , Creatinine [Mass/volume] in Serum or PlasmaOrdered By: Marc Giron on 03-28-2023 Creatinine [Mass/Vol] 0.43 mg/dL Low 0.60-1.20 [facility] Comment on above: Performed By: #### C REAT, ESR, CRP, HEPATIC, CK, CBC, MISC LAB #### [place] [address] [place] #### ANTI-KU AB, MITOM2, CH50, PAT, RNA POLYMR, C3, C4 #### [facility] , Erythrocyte distribution wid th [Ratio] by Automated countOrdered By: Marc Giron on 03-28-2023 Erythrocyte distribution width (RBC) [Ratio] 14.1 % Normal 11.9-15.3 [facility] Comment on above: Performed By: #### C REAT, ESR, CRP, HEPATIC, CK, CBC, MISC LAB #### [address] #### ANTI-KU AB, MITOM2, CH50, PAT, RNA POLYMR, C3, C4 #### [facility] , Erythrocytes [#/volume] in B lood by Automated countOrdered By: Marc Mack on 03-28-2023 RBC (Bld) [#/Vol] 3.35 10*6/uL Low 3.60-5.00 [facility] Comment on above: Performed By: #### C REAT, ESR, CRP, HEPATIC, CK, CBC, MISC LAB #### [address] #### ANTI-KU AB, MITOM2, CH50, PAT, RNA POLYMR, C3, C4 #### [facility] , Glucose [Mass/volume] in Ser um or PlasmaOrdered By: Marc Mack on 03-28-2023 Glucose [Mass/Vol] 98 mg/dL Normal 70-[address] [facility] Comment on above: ADA recommended refe rence rangeRandom Glucose Reference Range is dependent on time and content of last meal. Glucose of more than 200 mg/dL in a nonstressed, ambulatory subject supports the diagnosis of Diabetes Mellitus. Result Comment: [place] Glucose Reference Range is dependent on time and content of last meal. Glucose of more than 200 mg/dL in a nonstressed, ambulatory subject supports the diagnosis of Diabetes Mellitus. ADA recommended reference range Performed By: #### C REAT, ESR, CRP, HEPATIC, CK, CBC, MISC LAB #### [place] [address] [place] #### ANTI-KU AB, MITOM2, CH50, PAT, RNA POLYMR, C3, C4 #### [facility] , Hematocrit [Volume Fraction] of Blood by Automated countOrdered By: Marc Giron on 03-28-2023 Hematocrit (Bld) [Volume fraction] 36.2 % Normal 34.0-46.4 [facility] Comment on above: Performed By: #### C REAT, ESR, CRP, HEPATIC, CK, CBC, MISC LAB #### [address] #### ANTI-KU AB, MITOM2, CH50, PAT, RNA POLYMR, C3, C4 #### [facility] , Hemoglobin [Mass/volume] in BloodOrdered By: Marc Giron on 03-28-2023 Hemoglobin (Bld) [Mass/Vol] 12.2 g/dL Normal 11.8-15.4 [facility] Comment on above: Performed By: #### C REAT, ESR, CRP, HEPATIC, CK, CBC, MISC LAB #### [place] [address] [place] #### ANTI-KU AB, MITOM2, CH50, PAT, RNA POLYMR, C3, C4 #### [facility] , Leukocytes [#/volume] correc antoine for nucleated erythrocytes in Blood by Automated counOrdered By: Marc Giron on 03-28-2023 WBC corrected for nucl RBC Auto (Bld) [#/Vol] 6.7 10*3/uL 3.8-11.6 [facility] Leukocytes [#/volume] in Blo od by Automated countOrdered By: Marc Giron on 03-28-2023 WBC (Bld) [#/Vol] 6.7 10*3/uL Normal 3.8-11.[address] [facility] Comment on above: Performed By: #### C REAT, ESR, CRP, HEPATIC, CK, CBC, MISC LAB #### [place] [address] [place] #### ANTI-KU AB, MITOM2, CH50, PAT, RNA POLYMR, C3, C4 #### [facility] , Lymphocytes [#/volume] in Bl ood by Automated countOrdered By: Marc Giron on 03-28-2023 Lymphocytes (Bld) [#/Vol] 2.1 10*3/uL Normal 1.00-4.8 [facility] Comment on above: Performed By: #### C REAT, ESR, CRP, HEPATIC, CK, CBC, MISC LAB #### [place] [address] [place] #### ANTI-KU AB, MITOM2, CH50, PAT, RNA POLYMR, C3, C4 #### [facility] , Lymphocytes/100 leukocytes i n Blood by Automated countOrdered By: Marc Giron on 03-28-2023 Lymphocytes/100 WBC (Bld) 30.9 % Normal . [facility] Comment on above: Performed By: #### C REAT, ESR, CRP, HEPATIC, CK, CBC, MISC LAB #### [place] [address] [place] #### ANTI-KU AB, MITOM2, CH50, PAT, RNA POLYMR, C3, C4 #### [facility] , MCH [Entitic mass] by Automa antoine countOrdered By: Marc Giron on 03-28-2023 MCH (RBC) [Entitic mass] 36.4 pg High 24.7-34.3 [facility] Comment on above: Performed By: #### C REAT, ESR, CRP, HEPATIC, CK, CBC, MISC LAB #### [place] [address] [place] #### ANTI-KU AB, MITOM2, CH50, PAT, RNA POLYMR, C3, C4 #### [facility] , MCHC Auto (RBC) [Mass/Vol]Or dered By: Marc Giron on 03-28-2023 MCHC (RBC) [Mass/Vol] 33.7 g/dL 32.0-35.0 [facility] MCV [Entitic volume] by Auto mated countOrdered By: Marc Giron on 09-07-2023 MCV (RBC) [Entitic vol] 107.9 fL High 80-100 [facility] Comment on above: Performed By: #### C REAT, ESR, CRP, HEPATIC, CK, CBC, MISC LAB #### [facility] [address] [place] [address] #### ANTI-KU AB, MITOM2, CH50, PAT, RNA POLYMR, C3, C4 #### [facility] , Neutrophils [#/volume] in Bl ood by Automated countOrdered By: Marc Giron on 03-28-2023 Neutrophils (Bld) [#/Vol] 3.7 10*3/uL Normal 1.8-7.7 [facility] Comment on above: Performed By: #### C REAT, ESR, CRP, HEPATIC, CK, CBC, MISC LAB #### [address] #### ANTI-KU AB, MITOM2, CH50, PAT, RNA POLYMR, C3, C4 #### [facility] , No Panel InformationOrdered By: Marc Giron on 03-28-2023 Estimated GFR (CKD-EPI) > 60.0 mL/Min [facility] Creatinine Clearance (Chem 169.70 [facility] Nucleated erythrocytes [Pres ence] in Blood by Automated countOrdered By: Marc Giron on 03-28-2023 Nucleated RBC Auto Ql (Bld) 0.2 /100{WBC} 0-0.5 [facility] Platelet mean volume [Entiti c volume] in Blood by Automated countOrdered By: Marc Giron on 03-28-2023 Platelet mean volume (Bld) [Entitic vol] 7.2 fL Normal 6.3-10.7 [facility] Comment on above: Performed By: #### C REAT, ESR, CRP, HEPATIC, CK, CBC, MISC LAB #### [place] [address] [place] #### ANTI-KU AB, MITOM2, CH50, PAT, RNA POLYMR, C3, C4 #### [facility] , Platelets [#/volume] in Bloo d by Automated countOrdered By: Marc Giron on 03-28-2023 Platelets (Bld) [#/Vol] 273 10*3/uL Normal 150-450 [facility] Comment on above: Performed By: #### C REAT, ESR, CRP, HEPATIC, CK, CBC, MISC LAB #### [address] #### ANTI-KU AB, MITOM2, CH50, PAT, RNA POLYMR, C3, C4 #### [facility] , Potassium [Moles/volume] in Serum or PlasmaOrdered By: Marc Mack on 03-28-2023 Potassium [Moles/Vol] 4.1 mmol/L Normal 3.5-5.1 [facility] Comment on above: Performed By: #### C REAT, ESR, CRP, HEPATIC, CK, CBC, MISC LAB #### [address] #### ANTI-KU AB, MITOM2, CH50, PAT, RNA POLYMR, C3, C4 #### [facility] , Prealbumin [Mass/volume] in Serum or PlasmaOrdered By: Marc Mack on 03-28-2023 Prealbumin [Mass/Vol] 19.3 mg/dL Normal 17.0-34.0 [facility] Comment on above: Result Comment: PERF ORMED BY: [address] [place] [address] PATHOLOGIST CASING PULLER RUIZ CLIFTON M.D. Performed By: #### C REAT, ESR, CRP, HEPATIC, CK, CBC, MISC LAB #### [place] [address] [place] #### ANTI-KU AB, MITOM2, CH50, PAT, RNA POLYMR, C3, C4 #### [facility] , Protein [Mass/volume] in Ser um or PlasmaOrdered By: Marc Giron on 03-28-2023 Protein [Mass/Vol] 6.4 g/dL Normal 6.4-8.[address] [facility] Comment on above: Performed By: #### C REAT, ESR, CRP, HEPATIC, CK, CBC, MISC LAB #### [facility] [address] [place] [address] #### ANTI-KU AB, MITOM2, CH50, PAT, RNA POLYMR, C3, C4 #### [facility] , Serum globulin measurement b y calculation (mass/volume)Ordered By: Marc Giron on 03-28-2023 Globulin (S) [Mass/Vol] 3.1 g/dL Normal [facility] Comment on above: Performed By: #### C REAT, ESR, CRP, HEPATIC, CK, CBC, MISC LAB #### [address] #### ANTI-KU AB, MITOM2, CH50, PAT, RNA POLYMR, C3, C4 #### [facility] , Serum or plasma albumin/glob ulin mass ratioOrdered By: Marc Giron on 03-28-2023 Albumin/Globulin [Mass ratio] 1.1 {ratio} Normal [facility] Comment on above: Performed By: #### C REAT, ESR, CRP, HEPATIC, CK, CBC, MISC LAB #### [address] #### ANTI-KU AB, MITOM2, CH50, PAT, RNA POLYMR, C3, C4 #### [facility] , Serum or plasma anion gap de terminationOrdered By: Marc Giron on 03-28-2023 Anion gap [Moles/Vol] 11.6 mmol/L Normal 6.0-15.0 [facility] Comment on above: Performed By: #### C REAT, ESR, CRP, HEPATIC, CK, CBC, MISC LAB #### [place] [address] [place] #### ANTI-KU AB, MITOM2, CH50, PAT, RNA POLYMR, C3, C4 #### [facility] , Sodium [Moles/volume] in Ser um or PlasmaOrdered By: Marc Giron on 03-28-2023 Sodium [Moles/Vol] 137 mmol/L Normal 136-[address] [facility] Comment on above: Performed By: #### C REAT, ESR, CRP, HEPATIC, CK, CBC, MISC LAB #### [facility] [address] [place] [address] [place] #### ANTI-KU AB, MITOM2, CH50, PAT, RNA POLYMR, C3, C4 #### [facility] , Urea nitrogen [Mass/volume] in Serum or PlasmaOrdered By: Marc Giron on 03-28-2023 Urea nitrogen [Mass/Vol] 7 mg/dL Normal 7-25 [facility] Comment on above: Performed By: #### C REAT, ESR, CRP, HEPATIC, CK, CBC, MISC LAB #### [place] [address] [place] #### ANTI-KU AB, MITOM2, CH50, PAT, RNA POLYMR, C3, C4 #### [facility] , Alanine aminotransferase [En zymatic activity/volume] in Serum or PlasmaOrdered By: Brianne Umanzor on 03-24-2023 ALT [Catalytic activity/Vol] 23 U/L Normal 7-52 [facility] Comment on above: Performed By: #### C REAT, ESR, CRP, HEPATIC, CK, CBC, MISC LAB #### [place] [address] [place] #### ANTI-KU AB, MITOM2, CH50, PAT, RNA POLYMR, C3, C4 #### [facility] , Albumin [Mass/volume] in Ser um or Plasma by Bromocresol green (BCG) dye binding methoOrdered By: Brianne Umanzor on 03-24-2023 Albumin BCG dye [Mass/Vol] 3.1 g/dL 3.5-5.7 [facility] Alkaline phosphatase [Enzyma tic activity/volume] in Serum or PlasmaOrdered By: Obsharondagautam Cabreraomar on 03-24-2023 ALP [Catalytic activity/Vol] 112 U/L High 34-104 [facility] Comment on above: Performed By: #### C REAT, ESR, CRP, HEPATIC, CK, CBC, MISC LAB #### [address] #### ANTI-KU AB, MITOM2, CH50, PAT, RNA POLYMR, C3, C4 #### [facility] , Aspartate aminotransferase [ Enzymatic activity/volume] in Serum or PlasmaOrdered By: Obaydah Daromar on 03-24-2023 AST [Catalytic activity/Vol] 48 U/L High 13-39 [facility] Comment on above: Performed By: #### C REAT, ESR, CRP, HEPATIC, CK, CBC, MISC LAB #### [address] #### ANTI-KU AB, MITOM2, CH50, PAT, RNA POLYMR, C3, C4 #### [facility] , Bilirubin.total [Mass/volume ] in Serum or PlasmaOrdered By: Obaydah Daromar on 03-24-2023 Bilirubin [Mass/Vol] 0.5 mg/dL Normal 0.3-1.0 [facility] Comment on above: Performed By: #### C REAT, ESR, CRP, HEPATIC, CK, CBC, MISC LAB #### [facility] [address] [place] [address] [place] #### ANTI-KU AB, MITOM2, CH50, PAT, RNA POLYMR, C3, C4 #### [facility] , Calcium [Mass/volume] in Ser um or PlasmaOrdered By: Obaydah Daromar on 03-24-2023 Calcium [Mass/Vol] 9.0 mg/dL Normal 8.6-10.[address] [facility] Comment on above: Performed By: #### C REAT, ESR, CRP, HEPATIC, CK, CBC, MISC LAB #### [facility] [address] [place] [address] [place] #### ANTI-KU AB, MITOM2, CH50, PAT, RNA POLYMR, C3, C4 #### [facility] , Carbon dioxide, total [Moles /volume] in Serum or PlasmaOrdered By: Obsharondah Daromar on 03-24-2023 CO2 [Moles/Vol] 30.8 mmol/L Normal 21.0-31.0 [facility] Comment on above: Performed By: #### C REAT, ESR, CRP, HEPATIC, CK, CBC, MISC LAB #### [facility] [address] [place] [address] [place] #### ANTI-KU AB, MITOM2, CH50, PAT, RNA POLYMR, C3, C4 #### [facility] , Chloride [Moles/volume] in S caitlyn or PlasmaOrdered By: Obsharondagautam Daromar on 03-24-2023 Chloride [Moles/Vol] 102 mmol/L Normal 98-107 [facility] Comment on above: Performed By: #### C REAT, ESR, CRP, HEPATIC, CK, CBC, MISC LAB #### [place] [address] [place] #### ANTI-KU AB, MITOM2, CH50, PAT, RNA POLYMR, C3, C4 #### [facility] , Comprehensive Metabolic Pane antione 03-24-2023 Albumin [Mass/Vol] 3.1 g/dL Low 3.5-5.7 [facility] Comment on above: Performed By: #### C REAT, ESR, CRP, HEPATIC, CK, CBC, MISC LAB #### [facility] [address] [place] [address] [place] #### ANTI-KU AB, MITOM2, CH50, PAT, RNA POLYMR, C3, C4 #### [facility] , Creatinine Clr Calc Pharmacy 155.26 Normal [facility] Comment on above: Performed By: #### C REAT, ESR, CRP, HEPATIC, CK, CBC, MISC LAB #### [facility] [address] [place] [address] [place] #### ANTI-KU AB, MITOM2, CH50, PAT, RNA POLYMR, C3, C4 #### [facility] , GFR/1.73 sq M.predicted MDRD (S/P/Bld) [Vol rate/Area] mL/min/{1.73_m2} Normal [facility] Comment on above: Performed By: #### C REAT, ESR, CRP, HEPATIC, CK, CBC, MISC LAB #### [facility] [address] [place] [address] [place] #### ANTI-KU AB, MITOM2, CH50, PAT, RNA POLYMR, C3, C4 #### [facility] , Creatinine [Mass/volume] in Serum or PlasmaOrdered By: Obluis Cabreraomar on 03-24-2023 Creatinine [Mass/Vol] 0.47 mg/dL Low 0.60-1.20 [facility] Comment on above: Performed By: #### C REAT, ESR, CRP, HEPATIC, CK, CBC, MISC LAB #### [facility] [address] [place] [address] [place] #### ANTI-KU AB, MITOM2, CH50, PAT, RNA POLYMR, C3, C4 #### [facility] , Glucose [Mass/volume] in Ser um or PlasmaOrdered By: Obsharondagautam Cabreraomar on 03-24-2023 Glucose [Mass/Vol] 88 mg/dL Normal 70-[address] [facility] Comment on above: ADA recommended refe rence rangeRandom Glucose Reference Range is dependent on time and content of last meal. Glucose of more than 200 mg/dL in a nonstressed, ambulatory subject supports the diagnosis of Diabetes Mellitus. Result Comment: [place] om Glucose Reference Range is dependent on time and content of last meal. Glucose of more than 200 mg/dL in a nonstressed, ambulatory subject supports the diagnosis of Diabetes Mellitus. ADA recommended reference range Performed By: #### C REAT, ESR, CRP, HEPATIC, CK, CBC, MISC LAB #### [facility] [address] [place] [address] [place] #### ANTI-KU AB, MITOM2, CH50, PAT, RNA POLYMR, C3, C4 #### [facility] , Magnesium [Mass/volume] in S caitlyn or PlasmaOrdered By: Brianne Umanzor on 03-24-2023 Magnesium [Mass/Vol] 1.9 mg/dL Normal 1.9-2.7 [facility] Comment on above: Result Comment: PERF ORMED BY: [place] [address] PATHOLOGIST CASING PULLER RUIZ CLIFTON M.D. Performed By: #### C REAT, ESR, CRP, HEPATIC, CK, CBC, MISC LAB #### [facility] [address] [place] [address] #### ANTI-KU AB, MITOM2, CH50, PAT, RNA POLYMR, C3, C4 #### [facility] , No Panel InformationOrdered By: Brianne Umanzor on 03-24-2023 Estimated GFR (CKD-EPI) > 60.0 mL/Min [facility] Creatinine Clearance (Chem 155.26 [facility] Potassium [Moles/volume] in Serum or PlasmaOrdered By: Brianne Umanzor on 03-24-2023 Potassium [Moles/Vol] 4.5 mmol/L Normal 3.5-5.1 [facility] Comment on above: Performed By: #### C REAT, ESR, CRP, HEPATIC, CK, CBC, MISC LAB #### [facility] [address] [place] [address] [place] #### ANTI-KU AB, MITOM2, CH50, PAT, RNA POLYMR, C3, C4 #### [facility] , Protein [Mass/volume] in Ser um or PlasmaOrdered By: Brianne Cabreraomar on 03-24-2023 Protein [Mass/Vol] 6.2 g/dL Low 6.4-8.[address] [facility] Comment on above: Performed By: #### C REAT, ESR, CRP, HEPATIC, CK, CBC, MISC LAB #### [facility] [address] [place] [address] [place] #### ANTI-KU AB, MITOM2, CH50, PAT, RNA POLYMR, C3, C4 #### [facility] , Serum globulin measurement b y calculation (mass/volume)Ordered By: Obaydah Daromar on 03-24-2023 Globulin (S) [Mass/Vol] 3.1 g/dL Normal [facility] Comment on above: Performed By: #### C REAT, ESR, CRP, HEPATIC, CK, CBC, MISC LAB #### [address] #### ANTI-KU AB, MITOM2, CH50, PAT, RNA POLYMR, C3, C4 #### [facility] , Serum or plasma albumin/glob ulin mass ratioOrdered By: Obaydah Daromar on 03-24-2023 Albumin/Globulin [Mass ratio] 1.0 {ratio} [facility] Comment on above: Performed By: #### C REAT, ESR, CRP, HEPATIC, CK, CBC, MISC LAB #### [facility] [address] [place] [address] #### ANTI-KU AB, MITOM2, CH50, PAT, RNA POLYMR, C3, C4 #### [facility] , Serum or plasma anion gap de terminationOrdered By: Obaydah Daromar on 03-24-2023 Anion gap [Moles/Vol] 9.7 mmol/L Normal 6.0-15.0 [facility] Comment on above: Performed By: #### C REAT, ESR, CRP, HEPATIC, CK, CBC, MISC LAB #### [place] [address] [place] #### ANTI-KU AB, MITOM2, CH50, PAT, RNA POLYMR, C3, C4 #### [facility] , Sodium [Moles/volume] in Ser um or PlasmaOrdered By: Obaydah Daromar on 03-24-2023 Sodium [Moles/Vol] 138 mmol/L Normal 136-[address] [facility] Comment on above: Performed By: #### C REAT, ESR, CRP, HEPATIC, CK, CBC, MISC LAB #### [address] #### ANTI-KU AB, MITOM2, CH50, PAT, RNA POLYMR, C3, C4 #### [facility] , Urea nitrogen [Mass/volume] in Serum or PlasmaOrdered By: Brianne Umanzor on 03-24-2023 Urea nitrogen [Mass/Vol] 6 mg/dL Low 7-25 [facility] Comment on above: Performed By: #### C REAT, ESR, CRP, HEPATIC, CK, CBC, MISC LAB #### [address] #### ANTI-KU AB, MITOM2, CH50, PAT, RNA POLYMR, C3, C4 #### [facility] , Comprehensive Metabolic Pane antione 03-23-2023 Albumin [Mass/Vol] 2.8 g/dL Low 3.5-5.7 [facility] Comment on above: Performed By: #### C REAT, ESR, CRP, HEPATIC, CK, CBC, MISC LAB #### [place] [address] [place] #### ANTI-KU AB, MITOM2, CH50, PAT, RNA POLYMR, C3, C4 #### [facility] , Albumin/Globulin [Mass ratio] 1.0 {ratio} Normal [facility] Comment on above: Performed By: #### C REAT, ESR, CRP, HEPATIC, CK, CBC, MISC LAB #### [place] [address] [place] #### ANTI-KU AB, MITOM2, CH50, PAT, RNA POLYMR, C3, C4 #### [facility] , ALP [Catalytic activity/Vol] 101 U/L Normal 34-104 [facility] Comment on above: Performed By: #### C REAT, ESR, CRP, HEPATIC, CK, CBC, MISC LAB #### [place] [address] [place] #### ANTI-KU AB, MITOM2, CH50, PAT, RNA POLYMR, C3, C4 #### [facility] , ALT [Catalytic activity/Vol] 26 U/L Normal 7-52 [facility] Comment on above: Performed By: #### C REAT, ESR, CRP, HEPATIC, CK, CBC, MISC LAB #### [address] #### ANTI-KU AB, MITOM2, CH50, PAT, RNA POLYMR, C3, C4 #### [facility] , Anion gap [Moles/Vol] 8.8 mmol/L Normal 6.0-15.0 [facility] Comment on above: Performed By: #### C REAT, ESR, CRP, HEPATIC, CK, CBC, MISC LAB #### [place] [address] [place] #### ANTI-KU AB, MITOM2, CH50, PAT, RNA POLYMR, C3, C4 #### [facility] , AST [Catalytic activity/Vol] 54 U/L High 13-39 [facility] Comment on above: Performed By: #### C REAT, ESR, CRP, HEPATIC, CK, CBC, MISC LAB #### [place] [address] [place] #### ANTI-KU AB, MITOM2, CH50, PAT, RNA POLYMR, C3, C4 #### [facility] , Bilirubin [Mass/Vol] 0.7 mg/dL Normal 0.3-1.0 [facility] Comment on above: Performed By: #### C REAT, ESR, CRP, HEPATIC, CK, CBC, MISC LAB #### [place] [address] [place] #### ANTI-KU AB, MITOM2, CH50, PAT, RNA POLYMR, C3, C4 #### [facility] , Calcium [Mass/Vol] 8.3 mg/dL Low 8.6-10.3 [facility] Comment on above: Performed By: #### C REAT, ESR, CRP, HEPATIC, CK, CBC, MISC LAB #### [address] #### ANTI-KU AB, MITOM2, CH50, PAT, RNA POLYMR, C3, C4 #### [facility] , Chloride [Moles/Vol] 106 mmol/L Normal 98-107 [facility] Comment on above: Performed By: #### C REAT, ESR, CRP, HEPATIC, CK, CBC, MISC LAB #### [address] #### ANTI-KU AB, MITOM2, CH50, PAT, RNA POLYMR, C3, C4 #### [facility] , CO2 [Moles/Vol] 26.8 mmol/L Normal 21.0-31.0 [facility] Comment on above: Performed By: #### C REAT, ESR, CRP, HEPATIC, CK, CBC, MISC LAB #### [address] #### ANTI-KU AB, MITOM2, CH50, PAT, RNA POLYMR, C3, C4 #### [facility] , Creatinine [Mass/Vol] 0.39 mg/dL Low 0.60-1.20 [facility] Comment on above: Performed By: #### C REAT, ESR, CRP, HEPATIC, CK, CBC, MISC LAB #### [place] [address] [place] #### ANTI-KU AB, MITOM2, CH50, PAT, RNA POLYMR, C3, C4 #### [facility] , Creatinine Clr Calc Pharmacy 187.11 Normal [facility] Comment on above: Result Comment: PERF ORMED BY: [place] [address] PATHOLOGIST CASING PULLER RUIZ CLIFTON M.D. Performed By: #### C REAT, ESR, CRP, HEPATIC, CK, CBC, MISC LAB #### [place] [address] [place] #### ANTI-KU AB, MITOM2, CH50, PAT, RNA POLYMR, C3, C4 #### [facility] , GFR/1.73 sq M.predicted MDRD (S/P/Bld) [Vol rate/Area] mL/min/{1.73_m2} Normal [facility] Comment on above: Performed By: #### C REAT, ESR, CRP, HEPATIC, CK, CBC, MISC LAB #### [place] [address] [place] #### ANTI-KU AB, MITOM2, CH50, PAT, RNA POLYMR, C3, C4 #### [facility] , Globulin (S) [Mass/Vol] 2.7 g/dL Normal [facility] Comment on above: Performed By: #### C REAT, ESR, CRP, HEPATIC, CK, CBC, MISC LAB #### [place] [address] [place] #### ANTI-KU AB, MITOM2, CH50, PAT, RNA POLYMR, C3, C4 #### [facility] , Glucose [Mass/Vol] 84 mg/dL Normal 70-100 [facility] Comment on above: Result Comment: [facility] Glucose Reference Range is dependent on time and content of last meal. Glucose of more than 200 mg/dL in a nonstressed, ambulatory subject supports the diagnosis of Diabetes Mellitus. ADA recommended reference range Performed By: #### C REAT, ESR, CRP, HEPATIC, CK, CBC, MISC LAB #### [place] [address] [place] #### ANTI-KU AB, MITOM2, CH50, PAT, RNA POLYMR, C3, C4 #### [facility] , Potassium [Moles/Vol] 4.6 mmol/L Normal 3.5-5.1 [facility] Comment on above: Performed By: #### C REAT, ESR, CRP, HEPATIC, CK, CBC, MISC LAB #### [address] #### ANTI-KU AB, MITOM2, CH50, PAT, RNA POLYMR, C3, C4 #### [facility] , Protein [Mass/Vol] 5.5 g/dL Low 6.4-8.9 [facility] Comment on above: Performed By: #### C REAT, ESR, CRP, HEPATIC, CK, CBC, MISC LAB #### [address] #### ANTI-KU AB, MITOM2, CH50, PAT, RNA POLYMR, C3, C4 #### [facility] , Sodium [Moles/Vol] 137 mmol/L Normal 136-145 [facility] Comment on above: Performed By: #### C REAT, ESR, CRP, HEPATIC, CK, CBC, MISC LAB #### [place] [address] [place] #### ANTI-KU AB, MITOM2, CH50, PAT, RNA POLYMR, C3, C4 #### [facility] , Urea nitrogen [Mass/Vol] 4 mg/dL Low 7-25 [facility] Comment on above: Performed By: #### C REAT, ESR, CRP, HEPATIC, CK, CBC, MISC LAB #### [place] [address] [place] #### ANTI-KU AB, MITOM2, CH50, PAT, RNA POLYMR, C3, C4 #### [facility] , Erythrocyte distribution wid th [Ratio] by Automated countOrdered By: Brianne Umanzor on 03-23-2023 Erythrocyte distribution width (RBC) [Ratio] 14.6 % Normal 11.9-15.3 [facility] Comment on above: Performed By: #### C REAT, ESR, CRP, HEPATIC, CK, CBC, MISC LAB #### [address] #### ANTI-KU AB, MITOM2, CH50, PAT, RNA POLYMR, C3, C4 #### [facility] , Erythrocytes [#/volume] in B lood by Automated countOrdered By: Obaydah Daromar on 03-23-2023 RBC (Bld) [#/Vol] 2.96 10*6/uL Low 3.60-5.00 [facility] Comment on above: Performed By: #### C REAT, ESR, CRP, HEPATIC, CK, CBC, MISC LAB #### [address] #### ANTI-KU AB, MITOM2, CH50, PAT, RNA POLYMR, C3, C4 #### [facility] , Hematocrit [Volume Fraction] of Blood by Automated countOrdered By: Obsharondah Rickomar on 03-23-2023 Hematocrit (Bld) [Volume fraction] 31.7 % Low 34.0-46.4 [facility] Comment on above: Performed By: #### C REAT, ESR, CRP, HEPATIC, CK, CBC, MISC LAB #### [address] #### ANTI-KU AB, MITOM2, CH50, PAT, RNA POLYMR, C3, C4 #### [facility] , Hemoglobin [Mass/volume] in BloodOrdered By: Obaydah Daromar on 03-23-2023 Hemoglobin (Bld) [Mass/Vol] 10.9 g/dL Low 11.8-15.4 [facility] Comment on above: Performed By: #### C REAT, ESR, CRP, HEPATIC, CK, CBC, MISC LAB #### [address] #### ANTI-KU AB, MITOM2, CH50, PAT, RNA POLYMR, C3, C4 #### [facility] , Hemogram CBC Without Diffon 03-23-2023 Mean Corpuscular HGB Conc 34.5 g/dL Normal 32.0-35.0 [facility] Comment on above: Performed By: #### C REAT, ESR, CRP, HEPATIC, CK, CBC, MISC LAB #### [facility] [address] [place] [address] [place] #### ANTI-KU AB, MITOM2, CH50, PAT, RNA POLYMR, C3, C4 #### [facility] , WBC (Bld) [#/Vol] 6.3 10*3/uL Normal 3.8-11.6 [facility] Comment on above: Performed By: #### C REAT, ESR, CRP, HEPATIC, CK, CBC, MISC LAB #### [facility] [address] [place] [address] [place] #### ANTI-KU AB, MITOM2, CH50, PAT, RNA POLYMR, C3, C4 #### [facility] , Leukocytes [#/volume] correc antoine for nucleated erythrocytes in Blood by Automated counOrdered By: Brianne Umanzor on 03-23-2023 WBC corrected for nucl RBC Auto (Bld) [#/Vol] 6.3 10*3/uL 3.8-11.6 [facility] MCH [Entitic mass] by Automa antoine countOrdered By: Brianne Umanzor on 03-23-2023 MCH (RBC) [Entitic mass] 37.0 pg High 24.7-34.3 [facility] Comment on above: Performed By: #### C REAT, ESR, CRP, HEPATIC, CK, CBC, MISC LAB #### [facility] [address] [place] [address] [place] #### ANTI-KU AB, MITOM2, CH50, PAT, RNA POLYMR, C3, C4 #### [facility] , MCHC Auto (RBC) [Mass/Vol]Or dered By: Brianne Umanzor on 03-23-2023 MCHC (RBC) [Mass/Vol] 34.5 g/dL 32.0-35.0 [facility] MCV [Entitic volume] by Auto mated countOrdered By: Marysoldagautam Cabreraomar on 03-23-2023 MCV (RBC) [Entitic vol] 107.1 fL High 80-100 [facility] Comment on above: Performed By: #### C REAT, ESR, CRP, HEPATIC, CK, CBC, MISC LAB #### [address] #### ANTI-KU AB, MITOM2, CH50, PAT, RNA POLYMR, C3, C4 #### [facility] , Platelet mean volume [Entiti c volume] in Blood by Automated countOrdered By: Brianne Cabreraomar on 03-23-2023 Platelet mean volume (Bld) [Entitic vol] 7.2 fL Normal 6.3-10.7 [facility] Comment on above: Result Comment: PERF ORMED BY: [place] [address] PATHOLOGIST CASING PULLER RUIZ CLIFTON M.D. Performed By: #### C REAT, ESR, CRP, HEPATIC, CK, CBC, MISC LAB #### [address] #### ANTI-KU AB, MITOM2, CH50, PAT, RNA POLYMR, C3, C4 #### [facility] , Platelets [#/volume] in Bloo d by Automated countOrdered By: Obluis Cabreraomar on 03-23-2023 Platelets (Bld) [#/Vol] 237 10*3/uL Normal 150-450 [facility] Comment on above: Performed By: #### C REAT, ESR, CRP, HEPATIC, CK, CBC, MISC LAB #### [place] [address] [place] #### ANTI-KU AB, MITOM2, CH50, PAT, RNA POLYMR, C3, C4 #### [facility] , US abdomen limitedon 023 US abdomen limited [facility] [place] [address] [place] [address] Ultrasound Report Signed Patient: Rica Stout MR#: [id number] 39 : 1995 Acct:[id number] Age/Sex: 27 / F ADM Date: 03/22/23 Loc: Room: [address] [place] [address] Type: ADM IN Attending Dr: Brianne Umanzor [...] Lowell Blake M.D.03/23/2023 9:35 AM Dictation Location: [place] [address] Tech: Nia Liz Transcribed By: RAJESH 03/23/23934 Dictated By: Lowell Blake II, MD 03/23/23930 Signed By: 03/23/23934 Normal [facility] A1C with Estimated Average G gracen 03-22-2023 Glucose [Mass/Vol] 94 mg/dL Normal [facility] Comment on above: Result Comment: PERF ORMED BY: [place] [address] PATHOLOGIST CASING PULLER RUIZ CLIFTON M.D. Performed By: #### C REAT, ESR, CRP, HEPATIC, CK, CBC, MISC LAB #### [place] [address] [place] #### ANTI-KU AB, MITOM2, CH50, PAT, RNA POLYMR, C3, C4 #### [facility] , PAT with Reflexon 03-22-2023 PAT with Reflex Negative Normal Negative [facility] Comment on above: Result Comment: Perf ormed at: - [facility] [address] [id number] Hot End Operator: Breezy Jones PhD, Phone: [phone] Performed By: #### C REAT, ESR, CRP, HEPATIC, CK, CBC, MISC LAB #### [address] #### ANTI-KU AB, MITOM2, CH50, PAT, RNA POLYMR, C3, C4 #### [facility] , Aerobic cultureOrdered By: Olivia Peterson on 03-22-2023 Bacteria identified Aer cx Nom (Unsp spec) No Growth 2 Days [facility] Albumin [Mass/volume] in Ser um or PlasmaOrdered By: Chele Gamino on 03-22-2023 Albumin [Mass/Vol] 3.1 g/dL Normal 2.9-4.[address] [facility] Comment on above: Performed By: #### C REAT, ESR, CRP, HEPATIC, CK, CBC, MISC LAB #### [place] [address] [place] #### ANTI-KU AB, MITOM2, CH50, PAT, RNA POLYMR, C3, C4 #### [facility] , Alpha tocopherol [Mass/volum e] in Serum or PlasmaOrdered By: Chlee Gamino on 03-22-2023 Alpha tocopherol [Mass/Vol] 10.9 mg/L 5.9-19.4 [facility] Comment on above: This test was develo ped and its performance characteristicsdetermined by [facility]. It has not been cleared orapproved by the Food and Drug Administration. Ammonia [Moles/volume] in Pl asmaOrdered By: Chele Gamino on 03-22-2023 Ammonia (P) [Moles/Vol] 57 umol/L High 11-35 [facility] Comment on above: Result Comment: PERF ORMED BY: [place] [address] PATHOLOGIST CASING PULLER RUIZ CLIFTON M.D. Performed By: #### C REAT, ESR, CRP, HEPATIC, CK, CBC, MISC LAB #### [facility] [address] [place] [address] [place] #### ANTI-KU AB, MITOM2, CH50, PAT, RNA POLYMR, C3, C4 #### [facility] , Amphetamine Screen Ql (U)Ord ered By: Chele Gamino on 03-22-2023 Amphetamines Ql (U) Negative Negative [facility] Anaerobic cultureOrdered By: Bernard Peterson on 03-22-2023 Bacteria identified Anaer cx Nom (Unsp spec) No Anaerobes Isolated 3 Days [facility] Bacterial blood cultureOrder ed By: Bernard Peterson on 03-22-2023 Bacteria identified Cx Nom (Bld) NO GROWTH 5 DAYS [facility] Barbiturates [Presence] in U rine by Screen methodOrdered By: Chele Gamino on 03-22-2023 Barbiturates Screen Ql (U) Negative Negative [facility] Basic Metabolic Panelon Anion gap [Moles/Vol] 13.0 mmol/L Normal 6.0-15.0 [facility] Comment on above: Performed By: #### C REAT, ESR, CRP, HEPATIC, CK, CBC, MISC LAB #### [facility] [address] [place] [address] [place] #### ANTI-KU AB, MITOM2, CH50, PAT, RNA POLYMR, C3, C4 #### [facility] , Calcium [Mass/Vol] 7.3 mg/dL Low 8.6-10.3 [facility] Comment on above: Performed By: #### C REAT, ESR, CRP, HEPATIC, CK, CBC, MISC LAB #### [address] #### ANTI-KU AB, MITOM2, CH50, PAT, RNA POLYMR, C3, C4 #### [facility] , Chloride [Moles/Vol] 112 mmol/L High 98-107 [facility] Comment on above: Performed By: #### C REAT, ESR, CRP, HEPATIC, CK, CBC, MISC LAB #### [address] #### ANTI-KU AB, MITOM2, CH50, PAT, RNA POLYMR, C3, C4 #### [facility] , CO2 [Moles/Vol] 18.9 mmol/L Low 21.0-31.0 [facility] Comment on above: Performed By: #### C REAT, ESR, CRP, HEPATIC, CK, CBC, MISC LAB #### [address] #### ANTI-KU AB, MITOM2, CH50, PAT, RNA POLYMR, C3, C4 #### [facility] , Creatinine [Mass/Vol] 0.42 mg/dL Low 0.60-1.20 [facility] Comment on above: Performed By: #### C REAT, ESR, CRP, HEPATIC, CK, CBC, MISC LAB #### [place] [address] [place] #### ANTI-KU AB, MITOM2, CH50, PAT, RNA POLYMR, C3, C4 #### [facility] , Creatinine Clr Calc Pharmacy 173.74 Normal [facility] Comment on above: Performed By: #### C REAT, ESR, CRP, HEPATIC, CK, CBC, MISC LAB #### [address] #### ANTI-KU AB, MITOM2, CH50, PAT, RNA POLYMR, C3, C4 #### [facility] , GFR/1.73 sq M.predicted MDRD (S/P/Bld) [Vol rate/Area] mL/min/{1.73_m2} Normal [facility] Comment on above: Performed By: #### C REAT, ESR, CRP, HEPATIC, CK, CBC, MISC LAB #### [place] [address] [place] #### ANTI-KU AB, MITOM2, CH50, PAT, RNA POLYMR, C3, C4 #### [facility] , Glucose [Mass/Vol] 101 mg/dL High 70-100 [facility] Comment on above: Result Comment: [facility] Glucose Reference Range is dependent on time and content of last meal. Glucose of more than 200 mg/dL in a nonstressed, ambulatory subject supports the diagnosis of Diabetes Mellitus. ADA recommended reference range Performed By: #### C REAT, ESR, CRP, HEPATIC, CK, CBC, MISC LAB #### [place] [address] [place] #### ANTI-KU AB, MITOM2, CH50, PAT, RNA POLYMR, C3, C4 #### [facility] , Potassium [Moles/Vol] 3.9 mmol/L Normal 3.5-5.1 [facility] Comment on above: Performed By: #### C REAT, ESR, CRP, HEPATIC, CK, CBC, MISC LAB #### [place] [address] [place] #### ANTI-KU AB, MITOM2, CH50, PAT, RNA POLYMR, C3, C4 #### [facility] , Sodium [Moles/Vol] 140 mmol/L Normal 136-145 [facility] Comment on above: Performed By: #### C REAT, ESR, CRP, HEPATIC, CK, CBC, MISC LAB #### [facility] [address] [place] [address] [place] #### ANTI-KU AB, MITOM2, CH50, PAT, RNA POLYMR, C3, C4 #### [facility] , Urea nitrogen [Mass/Vol] 3 mg/dL Low 7-25 [facility] Comment on above: Performed By: #### C REAT, ESR, CRP, HEPATIC, CK, CBC, MISC LAB #### [facility] [address] [place] [address] [place] #### ANTI-KU AB, MITOM2, CH50, PAT, RNA POLYMR, C3, C4 #### [facility] , Benzodiazepines Screen Ql (U )Ordered By: Chele Gamino on 03-22-2023 Benzodiazepines Ql (U) Negative Negative [facility] Benzoylecgonine [Presence] i n Urine by Screen methodOrdered By: Chele Gamino on 03-22-2023 Benzoylecgonine Screen Ql (U) Negative Negative [facility] Bilirubin.direct [Mass/volum e] in Serum or PlasmaOrdered By: Yoana Rico on 03-22-2023 Bilirubin.direct [Mass/Vol] 0.10 mg/dL 0.03-0.[address] [facility] [address] head/brain wo conon 03-22 CT head/brain wo con [facility] [place] [address] CT Scan Report Signed Patient: Rica Stout MR#: [id number] [birth year] : 1995 Acct:[id number] Age/Sex: 27 / F ADM Date: 03/22/23 Loc: Room: [address] [place] [address] Type: ADM IN Attending Dr: Parveen Keller [...] Dave Clark M.D.03/22/2023 8:08 AM Dictation Location: [place] [address] Transcribed By: [facility] 03/22/23807 Dictated By: Dave Clark DO 03/22/23807 Signed By: 03/22/23807 Normal [facility] Cannabinoids [Presence] in U rine by Screen methodOrdered By: Chele Gamino on 03-22-2023 Cannabinoids Screen Ql (U) Negative Negative [facility] Comment on above: These are unconfirme d results and should not be used for legal purposes. Drug Cut-Off Concentration: AMPH 1000 ng/mL ALEXANDRO 200 ng/mL ATILIO 200 ng/mL COCM 300 ng/mL OP 300 ng/mL PCP 25 ng/mL THC 20 ng/mL Consultation Noteon 03-22-20 Consultation Note [id number]: 127 Normal [facility] Cryoglobulin with Quant Refl exon 03-22-2023 Cryoglobulin, Ql, Serum Normal None detected [facility] Comment on above: Result Comment: None Detected at 72 hours This test was developed and its performance characteristics determined by [employer]. It has not been cleared or approved by the Food and Drug Administration. Performed at: [address] [id number] Hot End Operator: Breezy Jones PhD, Phone: [phone] Performed By: #### C REAT, ESR, CRP, HEPATIC, CK, CBC, MISC LAB #### [place] [address] [place] #### ANTI-KU AB, MITOM2, CH50, PAT, RNA POLYMR, C3, C4 #### [facility] , Drug Screen,Urineon 03-22-20 23 Amphetamine Screen,Urine Negative Normal Negative [facility] Comment on above: Performed By: #### C REAT, ESR, CRP, HEPATIC, CK, CBC, MISC LAB #### [place] [address] [place] #### ANTI-KU AB, MITOM2, CH50, PAT, RNA POLYMR, C3, C4 #### [facility] , Barbiturate Screen,Urine Negative Normal Negative [facility] Comment on above: Performed By: #### C REAT, ESR, CRP, HEPATIC, CK, CBC, MISC LAB #### [place] [address] [place] #### ANTI-KU AB, MITOM2, CH50, PAT, RNA POLYMR, C3, C4 #### [facility] , Benzodiazepines Screen,Urine Negative Normal Negative [facility] Comment on above: Performed By: #### C REAT, ESR, CRP, HEPATIC, CK, CBC, MISC LAB #### [place] [address] [place] #### ANTI-KU AB, MITOM2, CH50, PAT, RNA POLYMR, C3, C4 #### [facility] , Cannabinoid Screen,Urine Negative Normal Negative [facility] Comment on above: Result Comment: Thes e are unconfirmed results and should not be used for legal purposes. Drug Cut-Off Concentration: AMPH 1000 ng/mL ALEXANDRO 200 ng/mL ATILIO 200 ng/mL COCM 300 ng/mL OP 300 ng/mL PCP 25 ng/mL THC 20 ng/mL PERFORMED BY: [place] [address] PATHOLOGIST CASING PULLER RUIZ CLIFTON M.D. Performed By: #### C REAT, ESR, CRP, HEPATIC, CK, CBC, MISC LAB #### [place] [address] [place] #### ANTI-KU AB, MITOM2, CH50, PAT, RNA POLYMR, C3, C4 #### [facility] , Cocaine Screen,Urine Negative Normal Negative [facility] Comment on above: Performed By: #### C REAT, ESR, CRP, HEPATIC, CK, CBC, MISC LAB #### [facility] [address] [place] [address] [place] #### ANTI-KU AB, MITOM2, CH50, PAT, RNA POLYMR, C3, C4 #### [facility] , Opiate Screen,Urine Negative Normal Negative [facility] Comment on above: Performed By: #### C REAT, ESR, CRP, HEPATIC, CK, CBC, MISC LAB #### [place] [address] [place] #### ANTI-KU AB, MITOM2, CH50, PAT, RNA POLYMR, C3, C4 #### [facility] , Phencyclidine Screen,Urine Negative Normal Negative [facility] Comment on above: Performed By: #### C REAT, ESR, CRP, HEPATIC, CK, CBC, MISC LAB #### [address] #### ANTI-KU AB, MITOM2, CH50, PAT, RNA POLYMR, C3, C4 #### [facility] , ED Note-Physicianon 03-22-20 ED Note-Physician [id number]: 127 Normal [facility] Folate [Mass/volume] in Seru m or PlasmaOrdered By: Yoana Rico on 03-22-2023 Folate [Mass/Vol] 2.3 ng/mL >5.9 [facility] Comment on above: Folate reference ran ge: >5.9 ng/mlThe WHO technical consultation on folate and vitamin [id number] has determined that folate concentrations lessthan 4 ng/ml are considered deficient. Gamma-tocopherol measurement (mass/volume)Ordered By: Chele Gamino on 03-22-2023 Gamma tocopherol [Mass/Vol] 1.9 mg/L 0.7-4.9 [facility] Comment on above: This test was develo ped and its performance characteristicsdetermined by [facility]. It has not been cleared orapproved by the Food and Drug Administration.Reference intervals for alpha and gamma-tocopheroldetermined from National Health and Nutrition ExaminationSurvey, 3251-0489. Individuals with alpha-tocopherol levelsless than 5.0 mg/L are considered vitamin E deficient.Performed at: - [address] [id number] Director: Lisa Ramos MD, Phone: [phone] Glucose mean value [Mass/vol ume] in Blood Estimated from glycated hemoglobinOrdered By: Chele Gamino on 03-22-2023 Average glucose Estimated from glycated hemoglobin (Bld) [Mass/Vol] 94 mg/dL [facility] Gram stain for investigation of transfusion reactionOrdered By: Bernard Peterson on 03-22-2023 Microscopic observation Gram stain Nom (Unsp spec) [facility] Hemoglobin A1c percentageOrd ered By: Chele Gamino on 03-22-2023 HbA1c (Bld) [Mass fraction] 4.9 % Normal 4.3-5.6 [facility] Comment on above: Increased risk for d iabetes: 5.7 - 6.4diabetes: >6.4glycemic control for adults with diabetes: <7.0 Result Comment: Incr eased risk for diabetes: 5.7 - 6.4 diabetes: >6.4 glycemic control for adults with diabetes: <7.0 Performed By: #### C REAT, ESR, CRP, HEPATIC, CK, CBC, MISC LAB #### [facility] [address] #### ANTI-KU AB, MITOM2, CH50, PAT, RNA POLYMR, C3, C4 #### [facility] , Hep C Ab wRfx to Qnt PCRon 0 03-22-2023 Hepatitis C Virus Antibody Non-Reactive Normal Non Reactive [facility] Comment on above: Performed By: #### C REAT, ESR, CRP, HEPATIC, CK, CBC, MISC LAB #### [place] [address] [place] #### ANTI-KU AB, MITOM2, CH50, PAT, RNA POLYMR, C3, C4 #### [facility] , Interpretation Hepatitis C Normal . [facility] Comment on above: Result Comment: Not infected with HCV unless early or acute infection is suspected (which may be delayed in an immunocompromised individual), or other evidence exists to indicate HCV infection. Performed at: - [facility] [address] [id number] Hot End Operator: Breezy Jones PhD, Phone: [phone] PERFORMED BY: [place] [address] PATHOLOGIST CASING PULLER RUIZ CLIFTON M.D. Performed By: #### C REAT, ESR, CRP, HEPATIC, CK, CBC, MISC LAB #### [address] #### ANTI-KU AB, MITOM2, CH50, PAT, RNA POLYMR, C3, C4 #### [facility] , Hepatic Panelon 03-22-2023 Albumin [Mass/Vol] 2.7 g/dL Low 3.5-5.7 [facility] Comment on above: Performed By: #### C REAT, ESR, CRP, HEPATIC, CK, CBC, MISC LAB #### [place] [address] [place] #### ANTI-KU AB, MITOM2, CH50, PAT, RNA POLYMR, C3, C4 #### [facility] , Albumin/Globulin [Mass ratio] 1.1 {ratio} Normal [facility] Comment on above: Performed By: #### C REAT, ESR, CRP, HEPATIC, CK, CBC, MISC LAB #### [place] [address] [place] #### ANTI-KU AB, MITOM2, CH50, PAT, RNA POLYMR, C3, C4 #### [facility] , ALP [Catalytic activity/Vol] 80 U/L Normal 34-104 [facility] Comment on above: Performed By: #### C REAT, ESR, CRP, HEPATIC, CK, CBC, MISC LAB #### [address] #### ANTI-KU AB, MITOM2, CH50, PAT, RNA POLYMR, C3, C4 #### [facility] , ALT [Catalytic activity/Vol] 26 U/L Normal 7-52 [facility] Comment on above: Performed By: #### C REAT, ESR, CRP, HEPATIC, CK, CBC, MISC LAB #### [address] #### ANTI-KU AB, MITOM2, CH50, PAT, RNA POLYMR, C3, C4 #### [facility] , AST [Catalytic activity/Vol] 57 U/L High 13-39 [facility] Comment on above: Performed By: #### C REAT, ESR, CRP, HEPATIC, CK, CBC, MISC LAB #### [address] #### ANTI-KU AB, MITOM2, CH50, PAT, RNA POLYMR, C3, C4 #### [facility] , Bilirubin [Mass/Vol] 0.3 mg/dL Normal 0.3-1.0 [facility] Comment on above: Performed By: #### C REAT, ESR, CRP, HEPATIC, CK, CBC, MISC LAB #### [place] [address] [place] #### ANTI-KU AB, MITOM2, CH50, PAT, RNA POLYMR, C3, C4 #### [facility] , Bilirubin,Indirect 0.2 mg/dL Normal [facility] Comment on above: Performed By: #### C REAT, ESR, CRP, HEPATIC, CK, CBC, MISC LAB #### [place] [address] [place] #### ANTI-KU AB, MITOM2, CH50, PAT, RNA POLYMR, C3, C4 #### [facility] , Bilirubin.indirect [Mass/Vol] 0.10 mg/dL Normal 0.03-0.18 [facility] Comment on above: Performed By: #### C REAT, ESR, CRP, HEPATIC, CK, CBC, MISC LAB #### [place] [address] [place] #### ANTI-KU AB, MITOM2, CH50, PAT, RNA POLYMR, C3, C4 #### [facility] , Globulin (S) [Mass/Vol] 2.5 g/dL Normal [facility] Comment on above: Performed By: #### C REAT, ESR, CRP, HEPATIC, CK, CBC, MISC LAB #### [place] [address] [place] #### ANTI-KU AB, MITOM2, CH50, PAT, RNA POLYMR, C3, C4 #### [facility] , Protein [Mass/Vol] 5.2 g/dL Significant change down 6.4-8.9 [facility] Comment on above: Performed By: #### C REAT, ESR, CRP, HEPATIC, CK, CBC, MISC LAB #### [place] [address] [place] #### ANTI-KU AB, MITOM2, CH50, PAT, RNA POLYMR, C3, C4 #### [facility] , Hepatitis C virus IgG Ab [Pr esence] in Serum or Plasma by ImmunoassayOrdered By: Chele Gamino on 03-22-2023 HCV IgG IA Ql Non-Reactive Non Reactive [facility] IgA [Mass/volume] in Serum o r PlasmaOrdered By: Chele Gamino on 03-22-2023 IgA [Mass/Vol] 485 mg/dL 87-352 [facility] IgG [Mass/volume] in Serum o r PlasmaOrdered By: Chele Gamino on 03-22-2023 IgG [Mass/Vol] 1046 mg/dL 586-1602 [facility] IgM [Mass/volume] in Serum o r PlasmaOrdered By: Chele Gamino on 03-22-2023 IgM [Mass/Vol] 343 mg/dL 26-217 [facility] Immunofixation,Serumon 03-22 Immunofixation, Serum Normal . [facility] Comment on above: Result Comment: No m onoclonality detected. Performed By: #### C REAT, ESR, CRP, HEPATIC, CK, CBC, MISC LAB #### [place] [address] [place] #### ANTI-KU AB, MITOM2, CH50, PAT, RNA POLYMR, C3, C4 #### [facility] , Immunoglobulin A, Serum 485 mg/dL High 87-352 [facility] Comment on above: Performed By: #### C REAT, ESR, CRP, HEPATIC, CK, CBC, MISC LAB #### [place] [address] [place] #### ANTI-KU AB, MITOM2, CH50, PAT, RNA POLYMR, C3, C4 #### [facility] , Immunoglobulin G 1046 mg/dL Normal 586-1602 [facility] Comment on above: Performed By: #### C REAT, ESR, CRP, HEPATIC, CK, CBC, MISC LAB #### [place] [address] [place] #### ANTI-KU AB, MITOM2, CH50, PAT, RNA POLYMR, C3, C4 #### [facility] , Immunoglobulin M, Serum 343 mg/dL High 26-217 [facility] Comment on above: Performed By: #### C REAT, ESR, CRP, HEPATIC, CK, CBC, MISC LAB #### [place] [address] [place] #### ANTI-KU AB, MITOM2, CH50, PAT, RNA POLYMR, C3, C4 #### [facility] , Lab Reportson 03-22-2023 Lab Reports [id number]: 127 Normal [facility] Lactate [Moles/volume] in Se rum or PlasmaOrdered By: Brianne Umanzor on 03-22-2023 Lactate [Moles/Vol] 3.4 mmol/L 0.5-2.2 [facility] Comment on above: Critical Result : Ca lled to and read back by: KHUSHBU OLIVARES at: 03/22/2023 15:35:40 by:ACE Lactic Acidon 03-22-2023 Lactate [Moles/Vol] 4.4 mmol/L Off scale high 0.5-2.2 [facility] Comment on above: Result Comment: Crit ical Result : Called to and read back by: GINNY YODER at: 03/22/2023 11:08:56 by:[id number] PERFORMED BY: [place] [address] PATHOLOGIST CASING PULLER RUIZ CLIFTON M.D. Performed By: #### C REAT, ESR, CRP, HEPATIC, CK, CBC, MISC LAB #### [address] #### ANTI-KU AB, MITOM2, CH50, PAT, RNA POLYMR, C3, C4 #### [facility] , Lactic Acid Reflexon 023 Lactic Acid Reflex 3.4 mmol/L Off scale high 0.5-2.2 [facility] Comment on above: Result Comment: Crit ical Result : Called to and read back by: KHUSHBU OLIVARES at: 03/22/2023 15:35:40 by:ACE PERFORMED BY: [place] [address] PATHOLOGIST CASING PULLER RUIZ CLIFTON M.D. Performed By: #### L ACTIC RFX #### [address] Lactic Acid Reflex 3.9 mmol/L Off scale high 0.5-2.2 [facility] Comment on above: Result Comment: Crit ical Result : Called to and read back by: ADIEL MARTÍNEZ at: 03/22/2023 02:09:36 by:[email or web address] PERFORMED BY: [place] [address] PATHOLOGIST CASING PULLER RUIZ CLIFTON M.D. Performed By: #### C REAT, ESR, CRP, HEPATIC, CK, CBC, MISC LAB #### [address] #### ANTI-KU AB, MITOM2, CH50, PAT, RNA POLYMR, C3, C4 #### [facility] , MR head/brain wo/w conon MR head/brain wo/w con [facility] Main [place] [address] [place] [address] MRI Report Signed Patient: Rica Stout MR#: [id number] 39 : 1995 Acct:[id number] Age/Sex: 27 / F ADM Date: 03/22/23 Loc: Room: [address] [place] [address] Type: ADM IN Attending Dr: Brianne Umanzor [...] Lowell Blake M.D.03/22/2023 3:05 PM Dictation Location: [place] [address] Transcribed By: [facility] 03/22/23 1505 Dictated By: Lowell Blake II, MD 03/22/23 1454 Signed By: 03/22/23 1505 Normal [facility] Magnesiumon 03-22-2023 Magnesium [Mass/Vol] 1.7 mg/dL Low 1.9-2.7 [facility] Comment on above: Result Comment: PERF ORMED BY: [place] [address] PATHOLOGIST CASING PULLER RUIZ CLIFTON M.D. Performed By: #### C REAT, ESR, CRP, HEPATIC, CK, CBC, MISC LAB #### [facility] [address] [place] [address] #### ANTI-KU AB, MITOM2, CH50, PAT, RNA POLYMR, C3, C4 #### [facility] , No Panel InformationOrdered By: Chele Gamino on 03-22-2023 Hepatitis C Interpretation See comment . [facility] Comment on above: Not infected with HC V unless early or acute infection issuspected (which may be delayed in an immunocompromisedindividual), or other evidence exists to indicate HCVinfection.Performed at: [facility] [id number] Director: Breezy Jones PhD, Phone: [phone] Hepatitis C RNA Quantitative N/A [facility] Protein Electrophoresis M-Tomas Not observed g/dL Not Observed [facility] Protein Electrophoresis Note See comment . [facility] Comment on above: Protein electrophore sis scan will follow via computer,mail, or crime scene specialist delivery.Performed at: [facility] [address] [place], [place] [id number] Director: Breezy Jones PhD, Phone: [phone] Serum Immunofixation See comment . [facility] Comment on above: No monoclonality det ected. Opiates [Presence] in Urine by Screen methodOrdered By: Chele Gamino on 03-22-2023 Opiates Screen Ql (U) Negative Negative [facility] Phencyclidine Screen Ql (U)O rdered By: Chele Gamino on 03-22-2023 Phencyclidine Ql (U) Negative Negative [facility] Phosphate [Mass/volume] in S caitlyn or PlasmaOrdered By: Yoana Rico on 03-22-2023 Phosphate [Mass/Vol] 3.4 mg/dL Low 3.7-7.2 [facility] Comment on above: Performed By: #### C REAT, ESR, CRP, HEPATIC, CK, CBC, MISC LAB #### [place] [address] [place] #### ANTI-KU AB, MITOM2, CH50, PAT, RNA POLYMR, C3, C4 #### [facility] , Protein Electrophoresis, Ser umon 03-22-2023 Fnofj-7-Lelcnjrz 0.2 g/dL Normal 0.0-0.4 [facility] Comment on above: Performed By: #### C REAT, ESR, CRP, HEPATIC, CK, CBC, MISC LAB #### [place] [address] [place] #### ANTI-KU AB, MITOM2, CH50, PAT, RNA POLYMR, C3, C4 #### [facility] , Hqovc-3-Cwiaetmp 0.7 g/dL Normal 0.4-1.0 [facility] Comment on above: Performed By: #### C REAT, ESR, CRP, HEPATIC, CK, CBC, MISC LAB #### [place] [address] [place] #### ANTI-KU AB, MITOM2, CH50, PAT, RNA POLYMR, C3, C4 #### [facility] , Beta Globulin 0.9 g/dL Normal 0.7-1.3 [facility] Comment on above: Performed By: #### C REAT, ESR, CRP, HEPATIC, CK, CBC, MISC LAB #### [place] [address] [place] #### ANTI-KU AB, MITOM2, CH50, PAT, RNA POLYMR, C3, C4 #### [facility] , Gamma Globulin 1.1 g/dL Normal 0.4-1.8 [facility] Comment on above: Performed By: #### C REAT, ESR, CRP, HEPATIC, CK, CBC, MISC LAB #### [place] [address] [place] #### ANTI-KU AB, MITOM2, CH50, PAT, RNA POLYMR, C3, C4 #### [facility] , M-Tomas Not Observed Normal Not Observed [facility] Comment on above: Performed By: #### C REAT, ESR, CRP, HEPATIC, CK, CBC, MISC LAB #### [place] [address] [place] #### ANTI-KU AB, MITOM2, CH50, PAT, RNA POLYMR, C3, C4 #### [facility] , SPE-Note Normal . [facility] Comment on above: Result Comment: Prot ein electrophoresis scan will follow via computer, mail, or crime scene specialist delivery. Performed at: - [facility] [id number] Hot End Operator: Breezy Jones PhD, Phone: [phone] PERFORMED BY: [place] [address] PATHOLOGIST CASING PULLER RUIZ CLIFTON M.D. Performed By: #### C REAT, ESR, CRP, HEPATIC, CK, CBC, MISC LAB #### [place] [address] [place] #### ANTI-KU AB, MITOM2, CH50, PAT, RNA POLYMR, C3, C4 #### [facility] , Protein [Mass/volume] in Ser um or PlasmaOrdered By: Chele Gamino on 03-22-2023 Protein [Mass/Vol] 5.9 g/dL Low 6.0-8.[address] [facility] Comment on above: Performed By: #### C REAT, ESR, CRP, HEPATIC, CK, CBC, MISC LAB #### [facility] [address] [place] [address] [place] #### ANTI-KU AB, MITOM2, CH50, PAT, RNA POLYMR, C3, C4 #### [facility] , RAD - CT Reporton 03-22-2023 RAD - CT Report [id number]: 127 Normal [facility] Serum cryoglobulin detection Ordered By: Chele Gamino on 03-22-2023 Cryoglobulin Ql (S) See comment None detected [facility] Comment on above: None Detected at 72 hoursThis test was developed and its performance characteristicsdetermined by [employer]. It has not been cleared orapproved by the Food and Drug Administration.Performed at: [facility] [id number] Director: Breezy Jones PhD, Phone: [phone] Serum globulin measurement ( mass/volume)Ordered By: Chele Gamino on 03-22-2023 Globulin (S) [Mass/Vol] 2.8 g/dL Normal 2.2-3.9 [facility] Comment on above: Performed By: #### C REAT, ESR, CRP, HEPATIC, CK, CBC, MISC LAB #### [facility] [address] [place] [address] [place] #### ANTI-KU AB, MITOM2, CH50, PAT, RNA POLYMR, C3, C4 #### [facility] , Serum or plasma albumin/glob ulin mass ratioOrdered By: Chele Gamino on 03-22-2023 Albumin/Globulin [Mass ratio] 1.1 {ratio} Normal 0.7-1.7 [facility] Comment on above: Performed By: #### C REAT, ESR, CRP, HEPATIC, CK, CBC, MISC LAB #### [facility] [address] #### ANTI-KU AB, MITOM2, CH50, PAT, RNA POLYMR, C3, C4 #### [facility] , Serum or plasma alpha 1 glob ulin measurement by electrophoresis (mass/volume)Ordered By: Chele Gamino on 03-22-2023 Alpha 1 globulin Elph [Mass/Vol] 0.2 g/dL 0.0-0.4 [facility] Serum or plasma alpha 2 glob ulin measurement by electrophoresis (mass/volume)Ordered By: Chele Gamino on 03-22-2023 Alpha 2 globulin Elph [Mass/Vol] 0.7 g/dL 0.4-1.0 [facility] Serum or plasma beta globuli n measurement by electrophoresis (mass/volume)Ordered By: Chele Gamino on 03-22-2023 Beta globulin Elph [Mass/Vol] 0.9 g/dL 0.7-1.3 [facility] Serum or plasma free cefurox audelia measurement (mass/volume)Ordered By: Chele Gamino on 03-22-2023 Cefuroxime free [Mass/Vol] Negative Negative [facility] Comment on above: Performed at: [place] [id number] Director: Breezy Jones PhD, Phone: [phone] Serum or plasma gamma globul in measurement by electrophoresis (mass/volume)Ordered By: Chele Gamino on 03-22-2023 Gamma globulin Elph [Mass/Vol] 1.1 g/dL 0.4-1.8 [facility] Serum or plasma non-glucuron idated bilirubin measurement (mass/volume)Ordered By: Yoana Rico on 03-22-2023 Bilirubin.indirect [Mass/Vol] 0.2 mg/dL [facility] Thyrotropin [Units/volume] i n Serum or PlasmaOrdered By: Chele Gamino on 03-22-2023 TSH Qn 2.53 m[IU]/L Normal 0.45-5.33 [facility] Comment on above: Result Comment: PERF ORMED BY: [place] [address] PATHOLOGIST CASING PULLER RUIZ CLIFTON M.D. Performed By: #### C REAT, ESR, CRP, HEPATIC, CK, CBC, MISC LAB #### [address] #### ANTI-KU AB, MITOM2, CH50, PAT, RNA POLYMR, C3, C4 #### [facility] , Vit. B12/Folate Profileon Folate 2.3 ng/mL Low >5.9 [facility] Comment on above: Result Comment: Astrid te reference range: >5.9 ng/ml The WHO technical consultation on folate and vitamin b12 deficiencies has determined that folate concentrations less than 4 ng/ml are considered deficient. PERFORMED BY: [place] [address] PATHOLOGIST CASING PULLER RUIZ CLIFTON M.D. Performed By: #### C REAT, ESR, CRP, HEPATIC, CK, CBC, MISC LAB #### [address] #### ANTI-KU AB, MITOM2, CH50, PAT, RNA POLYMR, C3, C4 #### [facility] , Vitamin B12 ser/plasOrdered By: Yoana Rico on 03-22-2023 Cobalamin (Vitamin B12) [Mass/Vol] 417 pg/mL Normal 180-914 [facility] Comment on above: Performed By: #### C REAT, ESR, CRP, HEPATIC, CK, CBC, MISC LAB #### [place] [address] [place] #### ANTI-KU AB, MITOM2, CH50, PAT, RNA POLYMR, C3, C4 #### [facility] , Vitamin E, Alpha Gamma Tocop on 03-22-2023 Vitamin E Alpha Tocopherol 10.9 mg/L Normal 5.9-19.4 [facility] Comment on above: Result Comment: This test was developed and its performance characteristics determined by [facility]. It has not been cleared or approved by the Food and Drug Administration. Performed By: #### C REAT, ESR, CRP, HEPATIC, CK, CBC, MISC LAB #### [place] [id number] [place] #### ANTI-KU AB, MITOM2, CH50, PAT, RNA POLYMR, C3, C4 #### [facility] , Vitamin E GammaTocopherol 1.9 mg/L Normal 0.7-4.9 [facility] Comment on above: Result Comment: This test was developed and its performance characteristics determined by [facility]. It has not been cleared or approved by the Food and Drug Administration. Reference intervals for alpha and gamma-tocopherol determined from National Health and Nutrition Examination Survey, 8086-9864. Individuals with alpha-tocopherol levels less than 5.0 mg/L are considered vitamin E deficient. Performed at: [address] [id number] Hot End Operator: Lisa Ramos MD, Phone: [phone] Performed By: #### C REAT, ESR, CRP, HEPATIC, CK, CBC, [facility] #### [place] [id number] [place] #### ANTI-KU AB, MITOM2, CH50, PAT, RNA POLYMR, C3, C4 #### [facility] , XR chest 1V portableon 03-22 XR chest 1V portable [facility] Main [place] [id number] XRay Report Signed Patient: Rica Stout MR#: [id number] 39 : 1995 Acct:[id number] Age/Sex: 27 / F ADM Date: 03/22/23 Loc: 4N Room: 6J0163-1 Type: ADM IN Attending Dr: Parveen Keller [...] Dave Clark M.D.03/22/2023 8:07 AM Dictation Location: [facility] Transcribed By: [facility] 03/22/23806 Dictated By: Dave Clark DO 03/22/23806 Signed By: 03/22/23806 Normal [facility] XR pre/post mri xrayon 03-22 XR pre/post mri xray [facility] [place] [address] MRI Report Signed Patient: Rica Stout MR#: [id number] 39 : 1995 Acct:[id number] Age/Sex: 27 / F ADM Date: 03/22/23 Loc: Room: [address] [place] [address] Type: ADM IN Attending Dr: Brianne Umanzor MD Copies to: DO Brianne Stevenson MD Ordering Provider: Chele Gamino DO; Brianne Umanzor MD Date of Service: 03/22/23 MR/MR lumbar spine wo/w con: CIDP rule out ([id number]) XR/XR pre/post mri xray: . MR lumbar [...] Lowell Blake M.D.03/22/2023 3:10 PM Dictation Location: [place] [address] Transcribed By: [facility] 03/22/23 1510 Dictated By: Lowell Blake II, MD 03/22/23 1505 Signed By: 03/22/23 1510 Normal [facility] Activated partial thrombopla stin time (aPTT) in platelet poor plasma by coagulation aOrdered By: Bernard Peterson on 03-21-2023 aPTT Coag (PPP) [Time] 30.4 s 25.1-36.5 [facility] Aerobic Cultureon 03-21-2023 Aerobic Culture Comment Tube 2 No Growth 2 Days Comment Tube 2 No Anaerobes Isolated 3 Days Comment Tube 2 Gram Stain Result No Bacteria Seen No White Blood Cells Seen PERFORMED BY: [facility] [address] [place] [address] PATHOLOGIST CASING PULLER RUIZ CLIFTON M.D. Normal [facility] Comment on above: Performed By: #### C REAT, ESR, CRP, HEPATIC, CK, CBC, MISC LAB #### [address] #### ANTI-KU AB, MITOM2, CH50, PAT, RNA POLYMR, C3, C4 #### [facility] , Aerobic cultureOrdered By: Olivia Peterson on 03-21-2023 Bacteria identified Aer cx Nom (Unsp spec) No Growth 2 Days [facility] Alanine aminotransferase [En zymatic activity/volume] in Serum or PlasmaOrdered By: Bernard Peterson on 03-21-2023 ALT [Catalytic activity/Vol] 37 U/L Normal 7-52 [facility] Comment on above: Performed By: #### C REAT, ESR, CRP, HEPATIC, CK, CBC, [facility] #### [place] [address] [place] #### ANTI-KU AB, MITOM2, CH50, PAT, RNA POLYMR, C3, C4 #### [facility] , Albumin [Mass/volume] in Ser um or Plasma by Bromocresol green (BCG) dye binding methoOrdered By: Bernard Peterson on 03-21-2023 Albumin BCG dye [Mass/Vol] 3.5 g/dL 3.5-5.7 [facility] Alkaline phosphatase [Enzyma tic activity/volume] in Serum or PlasmaOrdered By: Bernard Peterson on 03-21-2023 ALP [Catalytic activity/Vol] 112 U/L High 34-104 [facility] Comment on above: Performed By: #### C REAT, ESR, CRP, HEPATIC, CK, CBC, [facility] #### [place] [address] [place] #### ANTI-KU AB, MITOM2, CH50, PAT, RNA POLYMR, C3, C4 #### [facility] , Anaerobic cultureOrdered By: Bernard Peterson on 03-21-2023 Bacteria identified Anaer cx Nom (Unsp spec) No Anaerobes Isolated 3 Days [facility] Aspartate aminotransferase [ Enzymatic activity/volume] in Serum or PlasmaOrdered By: Bernard Peterson on 03-21-2023 AST [Catalytic activity/Vol] 79 U/L High 13-39 [facility] Comment on above: Performed By: #### C REAT, ESR, CRP, HEPATIC, CK, CBC, MISC LAB #### [facility] [address] [place] [address] [place] #### ANTI-KU AB, MITOM2, CH50, PAT, RNA POLYMR, C3, C4 #### [facility] , Automated basophil %Ordered By: Bernard Lrarthy on 03-21-2023 Basophils/100 WBC (Bld) 1.6 % Normal . [facility] Comment on above: Performed By: #### C REAT, ESR, CRP, HEPATIC, CK, CBC, MISC LAB #### [facility] [address] [place] [address] [place] #### ANTI-KU AB, MITOM2, CH50, PAT, RNA POLYMR, C3, C4 #### [facility] , Automated basophil countOrde red By: Bernard Lrarthy on 03-21-2023 Basophils (Bld) [#/Vol] 0.1 10*3/uL Normal 0.0-0.2 [facility] Comment on above: Performed By: #### C REAT, ESR, CRP, HEPATIC, CK, CBC, MISC LAB #### [facility] [address] [place] [address] [place] #### ANTI-KU AB, MITOM2, CH50, PAT, RNA POLYMR, C3, C4 #### [facility] , Automated blood monocyte cou ntOrdered By: Ebrnard Grace on 03-21-2023 Monocytes (Bld) [#/Vol] 0.5 10*3/uL Normal 0.0-0.8 [facility] Comment on above: Performed By: #### C REAT, ESR, CRP, HEPATIC, CK, CBC, MISC LAB #### [facility] [address] [place] [address] [place] #### ANTI-KU AB, MITOM2, CH50, PAT, RNA POLYMR, C3, C4 #### [facility] , Automated eosinophil %Ordere d By: Bernard Peterson on 03-21-2023 Eosinophils/100 WBC (Bld) 2.7 % Normal . [facility] Comment on above: Performed By: #### C REAT, ESR, CRP, HEPATIC, CK, CBC, MISC LAB #### [facility] [address] [place] [address] #### ANTI-KU AB, MITOM2, CH50, PAT, RNA POLYMR, C3, C4 #### [facility] , Automated eosinophil countOr dered By: Bernard Peterson on 03-21-2023 Eosinophils (Bld) [#/Vol] 0.2 10*3/uL Normal 0.0-0.45 [facility] Comment on above: Performed By: #### C REAT, ESR, CRP, HEPATIC, CK, CBC, MISC LAB #### [facility] [address] [place] [address] [place] #### ANTI-KU AB, MITOM2, CH50, PAT, RNA POLYMR, C3, C4 #### [facility] , Automated erythrocytes count in urine sediment (number/area)Ordered By: PROVIDER TEMP on 03-21-2023 RBC Auto (Urine sed) [#/Area] 0-1 [HPF] 0-4 [facility] Automated leukocytes count i n urine sediment (number/area)Ordered By: PROVIDER TEMP on 03-21-2023 WBC Auto (Urine sed) [#/Area] 20-49 [HPF] 0-4 [facility] Automated monocyte %Ordered By: Bernard Peterson on 03-21-2023 Monocytes/100 WBC (Bld) 7.6 % Normal . [facility] Comment on above: Performed By: #### C REAT, ESR, CRP, HEPATIC, CK, CBC, MISC LAB #### [facility] [address] [place] [address] [place] #### ANTI-KU AB, MITOM2, CH50, PAT, RNA POLYMR, C3, C4 #### [facility] , Automated neutrophil %Ordere d By: Bernard Peterson on 03-21-2023 Neutrophils/100 WBC (Bld) 58.4 % Normal . [facility] Comment on above: Performed By: #### C REAT, ESR, CRP, HEPATIC, CK, CBC, MISC LAB #### [facility] [address] [place] [address] [place] #### ANTI-KU AB, MITOM2, CH50, PAT, RNA POLYMR, C3, C4 #### [facility] , Automated urine color determ inationOrdered By: PROVIDER TEMP on 03-21-2023 Color (U) Yellow Normal Yellow [facility] Comment on above: Order Comment: Name Collection Type:: Clean-Voided Midstream Performed By: #### C REAT, ESR, CRP, HEPATIC, CK, CBC, MISC LAB #### [facility] [address] [place] [address] [place] #### ANTI-KU AB, MITOM2, CH50, PAT, RNA POLYMR, C3, C4 #### [facility] , Automated urine hyaline cast s count (number/volume)Ordered By: PROVIDER TEMP on 03-21-2023 Hyaline casts Auto (U) [#/Vol] None seen [LPF] 0-1 [facility] Bacterial blood cultureOrder ed By: Bernardmyrna Peterson on 03-21-2023 Bacteria identified Cx Nom (Bld) NO GROWTH 5 DAYS [facility] Basic Metabolic Panelon 02-21 Creatinine Clr Calc Pharmacy 148.92 Normal [facility] Comment on above: Performed By: #### C REAT, ESR, CRP, HEPATIC, CK, CBC, MISC LAB #### [place] [address] [place] #### ANTI-KU AB, MITOM2, CH50, PAT, RNA POLYMR, C3, C4 #### [facility] , GFR/1.73 sq M.predicted MDRD (S/P/Bld) [Vol rate/Area] mL/min/{1.73_m2} Normal [facility] Comment on above: Performed By: #### C REAT, ESR, CRP, HEPATIC, CK, CBC, MISC LAB #### [place] [address] [place] #### ANTI-KU AB, MITOM2, CH50, PAT, RNA POLYMR, C3, C4 #### [facility] , Bilirubin Test strip Ql (U)O rdered By: PROVIDER TEMP on 03-21-2023 Bilirubin Ql (U) Negative Negative [facility] Bilirubin.direct [Mass/volum e] in Serum or PlasmaOrdered By: Bernard Peterson on 03-21-2023 Bilirubin.direct [Mass/Vol] 0.10 mg/dL 0.03-0.18 [facility] Bilirubin.total [Mass/volume ] in Serum or PlasmaOrdered By: Bernard Peterson on 03-21-2023 Bilirubin [Mass/Vol] 0.5 mg/dL Normal 0.3-1.0 [facility] Comment on above: Performed By: #### C REAT, ESR, CRP, HEPATIC, CK, CBC, MISC LAB #### [place] [address] [place] #### ANTI-KU AB, MITOM2, CH50, PAT, RNA POLYMR, C3, C4 #### [facility] , Blood Cultureon 03-21-2023 Bacteria identified Cx Nom (Bld) NO GROWTH 5 DAYS PERFORMED BY: [place] [address] PATHOLOGIST CASING PULLER RUIZ CLIFTON M.D. Normal [facility] Comment on above: Performed By: #### C REAT, ESR, CRP, HEPATIC, CK, CBC, MISC LAB #### [place] [address] [place] #### ANTI-KU AB, MITOM2, CH50, PAT, RNA POLYMR, C3, C4 #### [facility] , Bacteria identified Cx Nom (Bld) NO GROWTH 5 DAYS PERFORMED BY: [place] [address] PATHOLOGIST CASING PULLER RUIZ CLIFTON M.D. Normal [facility] Comment on above: Performed By: #### C REAT, ESR, CRP, HEPATIC, CK, CBC, MISC LAB #### [place] [address] [place] #### ANTI-KU AB, MITOM2, CH50, PAT, RNA POLYMR, C3, C4 #### [facility] , C reactive protein [Mass/vol ume] in Serum or PlasmaOrdered By: Bernard Peterson on 03-21-2023 CRP [Mass/Vol] < 0.5 mg/dL 0.0-0.5 [facility] C-Reactive Proteinon 023 CRP [Mass/Vol] mg/L Normal 0.0-0.5 [facility] Comment on above: Result Comment: PERF ORMED BY: [place] [address] PATHOLOGIST CASING PULLER RUIZ CLIFTON M.D. Performed By: #### C REAT, ESR, CRP, HEPATIC, CK, CBC, MISC LAB #### [place] [address] [place] #### ANTI-KU AB, MITOM2, CH50, PAT, RNA POLYMR, C3, C4 #### [facility] , CSF PCR Panelon 03-21-2023 CSF PCR Panel Comment Tube 2 Cytomegalovirus [...] Varicella zoster virus Not detected PERFORMED BY: [place] [address] PATHOLOGIST CASING PULLER RUIZ CLIFTON M.D. Normal [facility] Comment on above: Performed By: #### C REAT, ESR, CRP, HEPATIC, CK, CBC, MISC LAB #### [address] #### ANTI-KU AB, MITOM2, CH50, PAT, RNA POLYMR, C3, C4 #### [facility] , CSF and Ser Oligoclonal Band son 03-21-2023 Oligoclonal Bands Interpret Normal . [facility] Comment on above: Order Comment: Comme nt Tube 4 Result Comment: Zero (0) oligoclonal bands were observed in the CSF. However two (2) paired bands were observed in both the CSF and serum. Paired bands suggest an immune response to an inflammatory process outside the [employer]CHOOL PROGRAM DIRECTOR and are unlikely to represent a [employer]CHO[employer] PROGRAM DIRECTOR demyelinating disease. Interpretation: Criteria for Positivity: Four (4) or more oligoclonal bands observed only in the CSF have been shown to be most consistent with MS using our method. [Claudia , Zacarias EL, Nicholas MORELAND, and Bolivar JA: Cerebrospinal Fluid Oligoclonal Bands [...] Focusing (IEF) and immunoblotting methodology. Performed at: - [facility] [address] [id number] Hot End Operator: Breezy Jones PhD, Phone: [phone] PERFORMED BY: [address] [place] [address] PATHOLOGIST CASING PULLER RUIZ CLIFTON M.D. Performed By: #### C REAT, ESR, CRP, HEPATIC, CK, CBC, MISC LAB #### [place] [address] [place] #### ANTI-KU AB, MITOM2, CH50, PAT, RNA POLYMR, C3, C4 #### [facility] , Calcium [Mass/volume] in Ser um or PlasmaOrdered By: Bernard Peterson on 03-21-2023 Calcium [Mass/Vol] 8.5 mg/dL Low 8.6-10.[address] [facility] Comment on above: Performed By: #### C REAT, ESR, CRP, HEPATIC, CK, CBC, MISC LAB #### [address] #### ANTI-KU AB, MITOM2, CH50, PAT, RNA POLYMR, C3, C4 #### [facility] , Carbon dioxide, total [Moles /volume] in Serum or PlasmaOrdered By: Bernard Peterson on 03-21-2023 CO2 [Moles/Vol] 20.0 mmol/L Low 21.0-31.0 [facility] Comment on above: Performed By: #### C REAT, ESR, CRP, HEPATIC, CK, CBC, MISC LAB #### [place] [address] [place] #### ANTI-KU AB, MITOM2, CH50, PAT, RNA POLYMR, C3, C4 #### [facility] , Casts typing in urine sedime nt by light microscopyOrdered By: PROVIDER TEMP on 03-21-2023 Casts LM Nom (Urine sed) None seen [LPF] None Seen [facility] Cell Count Differential,CSFo n 03-21-2023 Appearance, CSF Clear Normal Clear [facility] Comment on above: Order Comment: Comme nt Tube 1 Performed By: #### C REAT, ESR, CRP, HEPATIC, CK, CBC, MISC LAB #### [place] [address] [place] #### ANTI-KU AB, MITOM2, CH50, PAT, RNA POLYMR, C3, C4 #### [facility] , Order Comment: Comme nt Tube 3 Color, CSF Colorless Normal Colorless [facility] Comment on above: Order Comment: Comme nt Tube 1 Performed By: #### C REAT, ESR, CRP, HEPATIC, CK, CBC, MISC LAB #### [place] [address] [place] #### ANTI-KU AB, MITOM2, CH50, PAT, RNA POLYMR, C3, C4 #### [facility] , Order Comment: Comme nt Tube 3 Comment, CSF Normal [facility] Comment on above: Order Comment: Comme nt Tube 1 Result Comment: NO N UCLEATED CELLS SEEN. DIFFERENTIAL NOT PREFORMED Performed By: #### C REAT, ESR, CRP, HEPATIC, CK, CBC, MISC LAB #### [address] #### ANTI-KU AB, MITOM2, CH50, PAT, RNA POLYMR, C3, C4 #### [facility] , Order Comment: Comme nt Tube 3 Result Comment: NO N UCLEATED CELL SEEN. DIFFERENTIAL NOT PREFORMED CSF Supernatant Color Colorless Normal Colorless [facility] Comment on above: Order Comment: Comme nt Tube 1 Performed By: #### C REAT, ESR, CRP, HEPATIC, CK, CBC, MISC LAB #### [place] [address] [place] #### ANTI-KU AB, MITOM2, CH50, PAT, RNA POLYMR, C3, C4 #### [facility] , Order Comment: Comme nt Tube 3 CSF Volume, Total 3.5 mL Normal [facility] Comment on above: Order Comment: Comme nt Tube 1 Performed By: #### C REAT, ESR, CRP, HEPATIC, CK, CBC, MISC LAB #### [place] [id number] [place] #### ANTI-KU AB, MITOM2, CH50, PAT, RNA POLYMR, C3, C4 #### [facility] , Order Comment: Comme nt Tube 3 RBC, CSF 11 /uL Normal [facility] Comment on above: Order Comment: Comme nt Tube 1 Result Comment: The reference interval and other method performance specifications have not been established for this body fluid. The test result must be integrated into the clinical context for interpretation. Performed By: #### C REAT, ESR, CRP, HEPATIC, CK, CBC, MISC LAB #### [address] #### ANTI-KU AB, MITOM2, CH50, PAT, RNA POLYMR, C3, C4 #### [facility] , TNC, CSF 0 /uL Normal 0-5 [facility] Comment on above: Order Comment: Comme nt Tube 1 Performed By: #### C REAT, ESR, CRP, HEPATIC, CK, CBC, MISC LAB #### [address] #### ANTI-KU AB, MITOM2, CH50, PAT, RNA POLYMR, C3, C4 #### [facility] , Order Comment: Comme nt Tube 3 Tube Number Tested, CSF Tube Number: 1 Normal [facility] Comment on above: Order Comment: Comme nt Tube 1 Result Comment: PERF ORMED BY: [place] [address] PATHOLOGIST CASING PULLER RUIZ CLIFTON M.D. Performed By: #### C REAT, ESR, CRP, HEPATIC, CK, CBC, MISC LAB #### [address] #### ANTI-KU AB, MITOM2, CH50, PAT, RNA POLYMR, C3, C4 #### [facility] , Cell Count Differential,CSF #2on 03-21-2023 RBC, CSF 0 /uL Normal [facility] Comment on above: Order Comment: Comme nt Tube 3 Result Comment: The reference interval and other method performance specifications have not been established for this body fluid. The test result must be integrated into the clinical context for interpretation. Performed By: #### C REAT, ESR, CRP, HEPATIC, CK, CBC, MISC LAB #### [address] #### ANTI-KU AB, MITOM2, CH50, PAT, RNA POLYMR, C3, C4 #### [facility] , Tube Number Tested, CSF Tube Number: 3 Normal [facility] Comment on above: Order Comment: Comme nt Tube 3 Result Comment: PERF ORMED BY: [place] [address] PATHOLOGIST CASING PULLER RUIZ CLIFTON M.D. Performed By: #### C REAT, ESR, CRP, HEPATIC, CK, CBC, MISC LAB #### [address] #### ANTI-KU AB, MITOM2, CH50, PAT, RNA POLYMR, C3, C4 #### [facility] , Cerebrospinal fluid post-chloé trifugation appearance determinationOrdered By: Bernard Peterson on 03-21-2023 Appearance (Spun CSF) Colorless Colorless [facility] Cerebrospinal fluid sample t ube volume measurementOrdered By: Brenard Peterson on 03-21-2023 Specimen volume (CSF) 3.5 mL [facility] Chloride [Moles/volume] in S caitlyn or PlasmaOrdered By: Bernard Peterson on 03-21-2023 Chloride [Moles/Vol] 108 mmol/L High 98-107 [facility] Comment on above: Performed By: #### C REAT, ESR, CRP, HEPATIC, CK, CBC, MISC LAB #### [place] [address] [place] #### ANTI-KU AB, MITOM2, CH50, PAT, RNA POLYMR, C3, C4 #### [facility] , Color CSFOrdered By: Bernard Peterson on 03-21-2023 Color (CSF) Colorless Colorless [facility] Complete Blood Count Auto Di ffon 03-21-2023 Mean Corpuscular HGB Conc 33.5 g/dL Normal 32.0-35.0 [facility] Comment on above: Performed By: #### C REAT, ESR, CRP, HEPATIC, CK, CBC, MISC LAB #### [place] [address] [place] #### ANTI-KU AB, MITOM2, CH50, PAT, RNA POLYMR, C3, C4 #### [facility] , Monocytes/100 WBC (Bld) 19.31 % Normal 0.00-20.00 [facility] Comment on above: Performed By: #### C REAT, ESR, CRP, HEPATIC, CK, CBC, MISC LAB #### [address] #### ANTI-KU AB, MITOM2, CH50, PAT, RNA POLYMR, C3, C4 #### [facility] , NRBC% 0.1 /100{WBC} Normal 0-0.5 [facility] Comment on above: Performed By: #### C REAT, ESR, CRP, HEPATIC, CK, CBC, MISC LAB #### [address] #### ANTI-KU AB, MITOM2, CH50, PAT, RNA POLYMR, C3, C4 #### [facility] , Creatinine [Mass/volume] in Serum or PlasmaOrdered By: Bernard Grace on 03-21-2023 Creatinine [Mass/Vol] 0.49 mg/dL Low 0.60-1.20 [facility] Comment on above: Performed By: #### C REAT, ESR, CRP, HEPATIC, CK, CBC, MISC LAB #### [place] [address] [place] #### ANTI-KU AB, MITOM2, CH50, PAT, RNA POLYMR, C3, C4 #### [facility] , Dipstick and Microscopicon 0 03-21-2023 Appearance (U) Cloudy Critically abnormal Clear [facility] Comment on above: Order Comment: Name Collection Type:: Clean-Voided Midstream Performed By: #### C REAT, ESR, CRP, HEPATIC, CK, CBC, MISC LAB #### [address] #### ANTI-KU AB, MITOM2, CH50, PAT, RNA POLYMR, C3, C4 #### [facility] , Bacteria,Urine 4+ High None Seen [facility] Comment on above: Order Comment: Name Collection Type:: Clean-Voided Midstream Performed By: #### C REAT, ESR, CRP, HEPATIC, CK, CBC, MISC LAB #### [address] #### ANTI-KU AB, MITOM2, CH50, PAT, RNA POLYMR, C3, C4 #### [facility] , Bilirubin,Urine Negative Normal Negative [facility] Comment on above: Order Comment: Name Collection Type:: Clean-Voided Midstream Performed By: #### C REAT, ESR, CRP, HEPATIC, CK, CBC, MISC LAB #### [address] #### ANTI-KU AB, MITOM2, CH50, PAT, RNA POLYMR, C3, C4 #### [facility] , Glucose Ql (U) Normal Normal Normal [facility] Comment on above: Order Comment: Name Collection Type:: Clean-Voided Midstream Performed By: #### C REAT, ESR, CRP, HEPATIC, CK, CBC, MISC LAB #### [place] [address] [place] #### ANTI-KU AB, MITOM2, CH50, PAT, RNA POLYMR, C3, C4 #### [facility] , Hyaline Casts,Urine None Seen Normal 0-1 [facility] Comment on above: Order Comment: Name Collection Type:: Clean-Voided Midstream Performed By: #### C REAT, ESR, CRP, HEPATIC, CK, CBC, MISC LAB #### [address] #### ANTI-KU AB, MITOM2, CH50, PAT, RNA POLYMR, C3, C4 #### [facility] , Ketones Ql (U) Trace High Negative [facility] Comment on above: Order Comment: Name Collection Type:: Clean-Voided Midstream Performed By: #### C REAT, ESR, CRP, HEPATIC, CK, CBC, MISC LAB #### [address] #### ANTI-KU AB, MITOM2, CH50, PAT, RNA POLYMR, C3, C4 #### [facility] , Leukocyte esterase Test strip Ql (U) 2+ High Negative [facility] Comment on above: Order Comment: Name Collection Type:: Clean-Voided Midstream Performed By: #### C REAT, ESR, CRP, HEPATIC, CK, CBC, MISC LAB #### [address] #### ANTI-KU AB, MITOM2, CH50, PAT, RNA POLYMR, C3, C4 #### [facility] , Nitrite,Urine Positive High Negative [facility] Comment on above: Order Comment: Name Collection Type:: Clean-Voided Midstream Performed By: #### C REAT, ESR, CRP, HEPATIC, CK, CBC, MISC LAB #### [address] #### ANTI-KU AB, MITOM2, CH50, PAT, RNA POLYMR, C3, C4 #### [facility] , Occult Blood,Urine Negative Normal Negative [facility] Comment on above: Order Comment: Name Collection Type:: Clean-Voided Midstream Result Comment: PERF ORMED BY: [place] [address] PATHOLOGIST CASING PULLER RUIZ CLIFTON M.D. Performed By: #### C REAT, ESR, CRP, HEPATIC, CK, CBC, MISC LAB #### [address] #### ANTI-KU AB, MITOM2, CH50, PAT, RNA POLYMR, C3, C4 #### [facility] , Other Casts,Urine None Seen Normal None Seen [facility] Comment on above: Order Comment: Name Collection Type:: Clean-Voided Midstream Result Comment: PERF ORMED BY: [place] [address] PATHOLOGIST CASING PULLER RUIZ CLIFTON M.D. Performed By: #### C REAT, ESR, CRP, HEPATIC, CK, CBC, MISC LAB #### [address] #### ANTI-KU AB, MITOM2, CH50, PAT, RNA POLYMR, C3, C4 #### [facility] , Protein,Urine Trace High Negative [facility] Comment on above: Order Comment: Name Collection Type:: Clean-Voided Midstream Performed By: #### C REAT, ESR, CRP, HEPATIC, CK, CBC, MISC LAB #### [address] #### ANTI-KU AB, MITOM2, CH50, PAT, RNA POLYMR, C3, C4 #### [facility] , RBC LM.HPF (Urine sed) [#/Area] 0 /[HPF] Normal 0-4 [facility] Comment on above: Order Comment: Name Collection Type:: Clean-Voided Midstream Performed By: #### C REAT, ESR, CRP, HEPATIC, CK, CBC, MISC LAB #### [address] #### ANTI-KU AB, MITOM2, CH50, PAT, RNA POLYMR, C3, C4 #### [facility] , Specificy [place],Urine 1.019 Normal 1.001-1.030 [facility] Comment on above: Order Comment: Name Collection Type:: Clean-Voided Midstream Performed By: #### C REAT, ESR, CRP, HEPATIC, CK, CBC, MISC LAB #### [address] #### ANTI-KU AB, MITOM2, CH50, PAT, RNA POLYMR, C3, C4 #### [facility] , Squamous Epithelial Cell,Urine 10-19 High 0-2 [facility] Comment on above: Order Comment: Name Collection Type:: Clean-Voided Midstream Performed By: #### C REAT, ESR, CRP, HEPATIC, CK, CBC, MISC LAB #### [address] #### ANTI-KU AB, MITOM2, CH50, PAT, RNA POLYMR, C3, C4 #### [facility] , Urobilinogen,Urine Normal Normal Normal [facility] Comment on above: Order Comment: Name Collection Type:: Clean-Voided Midstream Performed By: #### C REAT, ESR, CRP, HEPATIC, CK, CBC, MISC LAB #### [place] [address] [place] #### ANTI-KU AB, MITOM2, CH50, PAT, RNA POLYMR, C3, C4 #### [facility] , WBC,Urine 20-49 High 0-4 [facility] Comment on above: Order Comment: Name Collection Type:: Clean-Voided Midstream Performed By: #### C REAT, ESR, CRP, HEPATIC, CK, CBC, MISC LAB #### [place] [address] [place] #### ANTI-KU AB, MITOM2, CH50, PAT, RNA POLYMR, C3, C4 #### [facility] , ECG 12 lead ECGon 03-21-2023 ECG 12 lead ECG [facility] [place] [address] Electrocardiograph Report Signed Patient: Rica Stout MR#: [id number] 39 : 1995 Acct:[id number] Age/Sex: 27 / F ADM Date: 03/22/23 Loc: 4N Room: 9K1773-1 Type: ADM IN Attending Dr: Parveen Keller [...] Sinus tachycardia Confirmed by Bernard Peterson DO ([id number]) on 03/22/2023 4:03:33 AM Referred By: Electronically Signed By:Bernard Peterson DO Transcribed By: MUS Signed By Bernard Peterson DO [id number] Normal [facility] Erythrocyte Sedimentation Ra mert 03-21-2023 ESR (Bld) [Velocity] 21 mm/h High 0-19 [facility] Comment on above: Result Comment: PERF ORMED BY: [place] [address] PATHOLOGIST CASING PULLER RUIZ CLIFOTN M.D. Performed By: #### C REAT, ESR, CRP, HEPATIC, CK, CBC, MISC LAB #### [facility] [address] [place] [address] #### ANTI-KU AB, MITOM2, CH50, PAT, RNA POLYMR, C3, C4 #### [facility] , Erythrocyte distribution wid th [Ratio] by Automated countOrdered By: Bernard Peterson on 03-21-2023 Erythrocyte distribution width (RBC) [Ratio] 14.5 % Normal 11.9-15.3 [facility] Comment on above: Performed By: #### C REAT, ESR, CRP, HEPATIC, CK, CBC, MISC LAB #### [place] [address] [place] #### ANTI-KU AB, MITOM2, CH50, PAT, RNA POLYMR, C3, C4 #### [facility] , Erythrocyte sedimentation ra te by Photometric methodOrdered By: Bernard Grace on 03-21-2023 ESR Photometric method (Bld) [Velocity] 21 mm/hr 0-19 [facility] Erythrocytes [#/volume] in B lood by Automated countOrdered By: Bernardmyrna Peterson on 03-21-2023 RBC (Bld) [#/Vol] 3.48 10*6/uL Low 3.60-5.00 [facility] Comment on above: Performed By: #### C REAT, ESR, CRP, HEPATIC, CK, CBC, MISC LAB #### [address] #### ANTI-KU AB, MITOM2, CH50, PAT, RNA POLYMR, C3, C4 #### [facility] , Glucose [Mass/volume] in Cer ebral spinal fluidOrdered By: Bernard Peterson on 03-21-2023 Glucose (CSF) [Mass/Vol] 84 mg/dL 40-70 [facility] Glucose [Mass/volume] in Ser um or PlasmaOrdered By: Bernard Peterson on 03-21-2023 Glucose [Mass/Vol] 130 mg/dL High 70-[address] [facility] Comment on above: ADA recommended refe rence rangeRandom Glucose Reference Range is dependent on time and content of last meal. Glucose of more than 200 mg/dL in a nonstressed, ambulatory subject supports the diagnosis of Diabetes Mellitus. Result Comment: [place] om Glucose Reference Range is dependent on time and content of last meal. Glucose of more than 200 mg/dL in a nonstressed, ambulatory subject supports the diagnosis of Diabetes Mellitus. ADA recommended reference range Performed By: #### C REAT, ESR, CRP, HEPATIC, CK, CBC, MISC LAB #### [place] [address] [place] #### ANTI-KU AB, MITOM2, CH50, PAT, RNA POLYMR, C3, C4 #### [facility] , Glucose, CSF #2on 03-21-2023 Glucose, CSF #2 84 mg/dL High 40-70 [facility] Comment on above: Order Comment: Comme nt Tube 3 Performed By: #### C REAT, ESR, CRP, HEPATIC, CK, CBC, MISC LAB #### [place] [address] [place] #### ANTI-KU AB, MITOM2, CH50, PAT, RNA POLYMR, C3, C4 #### [facility] , Glucose, Spinal Fluidon 08- Glucose, Spinal Fluid 84 mg/dL High 40-70 [facility] Comment on above: Order Comment: Comme nt Tube 1 Performed By: #### C REAT, ESR, CRP, HEPATIC, CK, CBC, MISC LAB #### [place] [address] [place] #### ANTI-KU AB, MITOM2, CH50, PAT, RNA POLYMR, C3, C4 #### [facility] , Gram Stainon 03-21-2023 Microscopic observation Gram stain Nom (Unsp spec) Comment Tube 2 Gram Stain Result No Bacteria Seen No White Blood Cells Seen PERFORMED BY: [place] [address] PATHOLOGIST CASING PULLER RUIZ CLIFTON M.D. Normal [facility] Comment on above: Performed By: #### C REAT, ESR, CRP, HEPATIC, CK, CBC, MISC LAB #### [place] [address] [place] #### ANTI-KU AB, MITOM2, CH50, PAT, RNA POLYMR, C3, C4 #### [facility] , Gram stain for investigation of transfusion reactionOrdered By: Bernard Peterson on 03-21-2023 Microscopic observation Gram stain Nom (Unsp spec) [facility] HCG ( test) IA.rapi d Ql (U)Ordered By: Bernard Peterson on 03-21-2023 HCG ( test) Ql (U) Negative [facility] HCG,Urineon 03-21-2023 Beta HCG ( test) Ql (U) Negative Normal [facility] Comment on above: Result Comment: PERF ORMED BY: [address] [address] PATHOLOGIST CASING PULLER RUIZ CLIFTON M.D. Performed By: #### C REAT, ESR, CRP, HEPATIC, CK, CBC, MISC LAB #### [address] #### ANTI-KU AB, MITOM2, CH50, PAT, RNA POLYMR, C3, C4 #### [facility] , Hematocrit [Volume Fraction] of Blood by Automated countOrdered By: Bernard Peterson on 03-21-2023 Hematocrit (Bld) [Volume fraction] 37.8 % Normal 34.0-46.4 [facility] Comment on above: Performed By: #### C REAT, ESR, CRP, HEPATIC, CK, CBC, MISC LAB #### [place] [address] [place] #### ANTI-KU AB, MITOM2, CH50, PAT, RNA POLYMR, C3, C4 #### [facility] , Hemoglobin [Mass/volume] in BloodOrdered By: Bernard Peterson on 03-21-2023 Hemoglobin (Bld) [Mass/Vol] 12.7 g/dL Normal 11.8-15.4 [facility] Comment on above: Performed By: #### C REAT, ESR, CRP, HEPATIC, CK, CBC, MISC LAB #### [place] [address] [place] #### ANTI-KU AB, MITOM2, CH50, PAT, RNA POLYMR, C3, C4 #### [facility] , Hepatic Panelon 03-21-2023 Albumin [Mass/Vol] 3.5 g/dL Normal 3.5-5.7 [facility] Comment on above: Performed By: #### C REAT, ESR, CRP, HEPATIC, CK, CBC, MISC LAB #### [place] [address] [place] #### ANTI-KU AB, MITOM2, CH50, PAT, RNA POLYMR, C3, C4 #### [facility] , Bilirubin,Indirect 0.4 mg/dL Normal [facility] Comment on above: Performed By: #### C REAT, ESR, CRP, HEPATIC, CK, CBC, MISC LAB #### [place] [address] [place] #### ANTI-KU AB, MITOM2, CH50, PAT, RNA POLYMR, C3, C4 #### [facility] , Bilirubin.indirect [Mass/Vol] 0.10 mg/dL Normal 0.03-0.18 [facility] Comment on above: Performed By: #### C REAT, ESR, CRP, HEPATIC, CK, CBC, MISC LAB #### [place] [address] [place] #### ANTI-KU AB, MITOM2, CH50, PAT, RNA POLYMR, C3, C4 #### [facility] , INR in Platelet poor plasma by Coagulation assayOrdered By: Bernard Peterson on 03-21-2023 INR Coag (PPP) [Relative time] 1.1 {INR} Normal [facility] Comment on above: INR Therapeutic Rang [...] with mechanical heart valves: 3 - 4.5 Result Comment: INR Therapeutic Range A) Pre- [...] 3 - 4.5 Performed By: #### C REAT, ESR, CRP, HEPATIC, CK, CBC, MISC LAB #### [address] #### ANTI-KU AB, MITOM2, CH50, PAT, RNA POLYMR, C3, C4 #### [facility] , Ketones Auto test strip (U) [Mass/Vol]Ordered By: PROVIDER TEMP on 03-21-2023 Ketones (U) [Mass/Vol] Trace Negative [facility] Lactate [Moles/volume] in Se rum or PlasmaOrdered By: Bernard Peterson on 03-21-2023 Lactate [Moles/Vol] 3.9 mmol/L Off scale high 0.5-2.2 [facility] Comment on above: Critical Result : Ca lled to and read back by: DIPTI ANN at: 03/21/2023 22:31:27 by:LFM Result Comment: Crit ical Result : Called to and read back by: DIPTI ANN at: 03/21/2023 22:31:27 by:LFM PERFORMED BY: [place] [address] PATHOLOGIST CASING PULLER RUIZ CLIFTON M.D. Performed By: #### C REAT, ESR, CRP, HEPATIC, CK, CBC, MISC LAB #### [address] #### ANTI-KU AB, MITOM2, CH50, PAT, RNA POLYMR, C3, C4 #### [facility] , Leukocytes [#/volume] correc antoine for nucleated erythrocytes in Blood by Automated counOrdered By: Bernard Peterson on 03-21-2023 WBC corrected for nucl RBC Auto (Bld) [#/Vol] 7.2 10*3/uL 3.8-11.6 [facility] Leukocytes [#/volume] in Blo od by Automated countOrdered By: Bernard Peterson on 03-21-2023 WBC (Bld) [#/Vol] 7.2 10*3/uL Normal 3.8-11.[address] [facility] Comment on above: Performed By: #### C REAT, ESR, CRP, HEPATIC, CK, CBC, MISC LAB #### [place] [address] [place] #### ANTI-KU AB, MITOM2, CH50, PAT, RNA POLYMR, C3, C4 #### [facility] , Lymphocytes [#/volume] in Bl ood by Automated countOrdered By: Bernard Peterson on 03-21-2023 Lymphocytes (Bld) [#/Vol] 2.1 10*3/uL Normal 1.00-4.8 [facility] Comment on above: Performed By: #### C REAT, ESR, CRP, HEPATIC, CK, CBC, MISC LAB #### [place] [address] [place] #### ANTI-KU AB, MITOM2, CH50, PAT, RNA POLYMR, C3, C4 #### [facility] , Lymphocytes/100 leukocytes i n Blood by Automated countOrdered By: Bernard Peterson on 03-21-2023 Lymphocytes/100 WBC (Bld) 29.7 % Normal . [facility] Comment on above: Performed By: #### C REAT, ESR, CRP, HEPATIC, CK, CBC, MISC LAB #### [place] [address] [place] #### ANTI-KU AB, MITOM2, CH50, PAT, RNA POLYMR, C3, C4 #### [facility] , MCH [Entitic mass] by Automa antoine countOrdered By: Bernard Peterson on 03-21-2023 MCH (RBC) [Entitic mass] 36.3 pg High 24.7-34.3 [facility] Comment on above: Performed By: #### C REAT, ESR, CRP, HEPATIC, CK, CBC, MISC LAB #### [place] [address] [place] #### ANTI-KU AB, MITOM2, CH50, PAT, RNA POLYMR, C3, C4 #### [facility] , MCHC Auto (RBC) [Mass/Vol]Or dered By: Bernard Peterson on 03-21-2023 MCHC (RBC) [Mass/Vol] 33.5 g/dL 32.0-35.0 [facility] MCV [Entitic volume] by Auto mated countOrdered By: Bernard Peterson on 03-21-2023 MCV (RBC) [Entitic vol] 108.6 fL High 80-100 [facility] Comment on above: Performed By: #### C REAT, ESR, CRP, HEPATIC, CK, CBC, [facility] #### [facility] [address] [place] [address] [place] #### ANTI-KU AB, MITOM2, CH50, PAT, RNA POLYMR, C3, C4 #### [facility] , Magnesium [Mass/volume] in S caitlyn or PlasmaOrdered By: Bernard Peterson on 03-21-2023 Magnesium [Mass/Vol] 1.4 mg/dL Low 1.9-2.7 [facility] Comment on above: Performed By: #### C REAT, ESR, CRP, HEPATIC, CK, CBC, MISC LAB #### [facility] [address] [place] [address] [place] #### ANTI-KU AB, MITOM2, CH50, PAT, RNA POLYMR, C3, C4 #### [facility] , Manual cerebrospinal fluid e rythrocytes count (number/volume)Ordered By: Bernard Peterson on 03-21-2023 RBC Manual cnt (CSF) [#/Vol] 0 /uL [facility] Comment on above: The reference interv al and other method performance specifications have not been established for this body fluid. The test result must be integrated into the clinical context for interpretation. Meningitis+Encephalitis path ogens DNA and RNA panel - Cerebral spinal fluid by OKSANA wiOrdered By: Bernard Peterson on 03-21-2023 Meningitis+Encephalitis pathogens DNA and RNA panel OKSANA+non-probe (CSF) [facility] Monocyte distribution width [Entitic volume] in Blood by AutomatedOrdered By: Bernard Peterson on 03-21-2023 Monocyte distribution width Auto (Bld) [Entitic vol] 19.31 % 0.00-20.00 [facility] Neutrophils [#/volume] in Bl ood by Automated countOrdered By: Bernard Peterson on 03-21-2023 Neutrophils (Bld) [#/Vol] 4.2 10*3/uL Normal 1.8-7.7 [facility] Comment on above: Performed By: #### C REAT, ESR, CRP, HEPATIC, CK, CBC, MISC LAB #### [facility] [address] [place] [address] #### ANTI-KU AB, MITOM2, CH50, PAT, RNA POLYMR, C3, C4 #### [facility] , Nitrite Test strip Ql (U)Ord ered By: PROVIDER TEMP on 03-21-2023 Nitrite Ql (U) Positive Negative [facility] No Panel InformationOrdered By: Bernard Peterson on 03-21-2023 CSF Appearance Clear Clear [facility] CSF Differential Comment See comment [facility] Comment on above: NO NUCLEATED CELLS S EEN. DIFFERENTIAL NOT PREFORMED CSF Eosinophils N/A [facility] CSF Lymphocytes N/A [facility] CSF Monocytes N/A [facility] CSF Neutrophils [employer] Senior Manager [facility] Comment on above: The reference interv al and other method performance specifications have not been established for this body fluid. The test result must be integrated into the clinical context for interpretation. CSF Tube Number Tube number: 3 [facility] Estimated GFR (CKD-EPI) > 60.0 mL/Min [facility] Creatinine Clearance (Chem 148.92 [facility] Nucleated cells [#/volume] i n Cerebral spinal fluid by Manual countOrdered By: Bernard Peterson on 03-21-2023 Nucleated cells Manual cnt (CSF) [#/Vol] 0 10*3/uL 0-5 [facility] Nucleated erythrocytes [Pres ence] in Blood by Automated countOrdered By: Bernard Peterson on 03-21-2023 Nucleated RBC Auto Ql (Bld) 0.1 /100{WBC} 0-0.5 [facility] Partial Thromboplastin Timeo n 03-21-2023 aPTT Coag (Bld) [Time] 30.4 s Normal 25.1-36.5 [facility] Comment on above: Result Comment: PERF ORMED BY: [place] [address] PATHOLOGIST CASING PULLER RUIZ CLIFTON M.D. Performed By: #### C REAT, ESR, CRP, HEPATIC, CK, CBC, MISC LAB #### [address] #### ANTI-KU AB, MITOM2, CH50, PAT, RNA POLYMR, C3, C4 #### [facility] , Phosphate [Mass/volume] in S caitlyn or PlasmaOrdered By: Bernard Peterson on 03-21-2023 Phosphate [Mass/Vol] 2.3 mg/dL Low 3.7-7.2 [facility] Comment on above: Performed By: #### C REAT, ESR, CRP, HEPATIC, CK, CBC, MISC LAB #### [facility] [address] [place] [address] #### ANTI-KU AB, MITOM2, CH50, PAT, RNA POLYMR, C3, C4 #### [facility] , Platelet mean volume [Entiti c volume] in Blood by Automated countOrdered By: Bernard Peterson on 03-21-2023 Platelet mean volume (Bld) [Entitic vol] 7.9 fL Normal 6.3-10.7 [facility] Comment on above: Performed By: #### C REAT, ESR, CRP, HEPATIC, CK, CBC, MISC LAB #### [place] [address] [place] #### ANTI-KU AB, MITOM2, CH50, PAT, RNA POLYMR, C3, C4 #### [facility] , Platelets [#/volume] in Bloo d by Automated countOrdered By: Bernard Peterson on 03-21-2023 Platelets (Bld) [#/Vol] 319 10*3/uL Normal 150-450 [facility] Comment on above: Performed By: #### C REAT, ESR, CRP, HEPATIC, CK, CBC, MISC LAB #### [facility] [address] [place] [address] [place] #### ANTI-KU AB, MITOM2, CH50, PAT, RNA POLYMR, C3, C4 #### [facility] , Potassium [Moles/volume] in Serum or PlasmaOrdered By: Bernard Peterson on 03-21-2023 Potassium [Moles/Vol] 3.2 mmol/L Low 3.5-5.1 [facility] Comment on above: Performed By: #### C REAT, ESR, CRP, HEPATIC, CK, CBC, MISC LAB #### [facility] [address] [place] [address] [place] #### ANTI-KU AB, MITOM2, CH50, PAT, RNA POLYMR, C3, C4 #### [facility] , Protein Auto test strip (U) [Mass/Vol]Ordered By: ELENI BLOOM on 03-21-2023 Protein (U) [Mass/Vol] Trace mg/dL Negative [facility] Protein [Mass/volume] in Cer ebral spinal fluidOrdered By: Bernard Peterson on 03-21-2023 Protein (CSF) [Mass/Vol] 39 mg/dL 15-45 [facility] Protein [Mass/volume] in Ser um or PlasmaOrdered By: Bernard Peterson on 03-21-2023 Protein [Mass/Vol] 6.8 g/dL Normal 6.4-8.[address] [facility] Comment on above: Performed By: #### C REAT, ESR, CRP, HEPATIC, CK, CBC, MISC LAB #### [facility] [address] [place] [address] [place] #### ANTI-KU AB, MITOM2, CH50, PAT, RNA POLYMR, C3, C4 #### [facility] , Protein fractions.oligoclona l bands.intrathecal [Presence] in Serum and CSFOrdered By: Bernard Peterson on 03-21-2023 Protein fractions.oligoclonal bands.intrathecal Ql (S+CSF) See comment . [facility] Comment on above: Zero (0) oligoclonal bands were observed in the CSF.However two (2) paired bands were observed in both the CSFand serum. Paired bands suggest an immune response to aninflammatory process outside the PRESCHOOL PROGRAM DIRECTOR and are unlikely torepresent a PRESCHOOL PROGRAM DIRECTOR demyelinating disease.Interpretation: Criteria for Positivity: Four (4) or more oligoclonalbands observed only in the CSF have been shown to be mostconsistent with MS using our method. [Claudia , Nicholas Hayward, and [place]: Cerebrospinal FluidOligoclonal Bands in the Diagnosis of [...] using IsoelectricFocusing (IEF) and immunoblotting methodology.Performed at: - [facility] [address] [id number] Director: Breezy Jones PhD, Phone: [phone] Prothrombin Time INROrdered By: Bernard Peterson on 03-21-2023 PT Coag (PPP) [Time] 12.4 s Normal 9.0-12.9 [facility] Comment on above: Performed By: #### C REAT, ESR, CRP, HEPATIC, CK, CBC, MISC LAB #### [address] #### ANTI-KU AB, MITOM2, CH50, PAT, RNA POLYMR, C3, C4 #### [facility] , Serum globulin measurement b y calculation (mass/volume)Ordered By: Bernard Peterson on 03-21-2023 Globulin (S) [Mass/Vol] 3.3 g/dL Normal [facility] Comment on above: Performed By: #### C REAT, ESR, CRP, HEPATIC, CK, CBC, MISC LAB #### [facility] [address] [place] [address] #### ANTI-KU AB, MITOM2, CH50, PAT, RNA POLYMR, C3, C4 #### [facility] , Serum or plasma albumin/glob ulin mass ratioOrdered By: Bernard Peterson on 03-21-2023 Albumin/Globulin [Mass ratio] 1.1 {ratio} Normal [facility] Comment on above: Performed By: #### C REAT, ESR, CRP, HEPATIC, CK, CBC, MISC LAB #### [place] [address] [place] #### ANTI-KU AB, MITOM2, CH50, PAT, RNA POLYMR, C3, C4 #### [facility] , Serum or plasma anion gap de terminationOrdered By: Bernard Peterson on 03-21-2023 Anion gap [Moles/Vol] 16.2 mmol/L High 6.0-15.0 [facility] Comment on above: Performed By: #### C REAT, ESR, CRP, HEPATIC, CK, CBC, MISC LAB #### [facility] [address] [place] [address] [place] #### ANTI-KU AB, MITOM2, CH50, PAT, RNA POLYMR, C3, C4 #### [facility] , Serum or plasma non-glucuron idated bilirubin measurement (mass/volume)Ordered By: Bernard Peterson on 03-21-2023 Bilirubin.indirect [Mass/Vol] 0.4 mg/dL [facility] Sodium [Moles/volume] in Ser um or PlasmaOrdered By: Bernard Peterson on 03-21-2023 Sodium [Moles/Vol] 141 mmol/L Normal 136-[address] [facility] Comment on above: Performed By: #### C REAT, ESR, CRP, HEPATIC, CK, CBC, MISC LAB #### [place] [address] [place] #### ANTI-KU AB, MITOM2, CH50, PAT, RNA POLYMR, C3, C4 #### [facility] , Specific gravity Auto test s trip (U) [Rel density]Ordered By: PROVIDER TEMP on 03-21-2023 Specific gravity (U) [Rel density] 1.019 1.001-1.030 [facility] Squamous epithelial cells de tection in urine sediment by light microscopyOrdered By: PROVIDER TEMP on 03-21-2023 Epithelial cells.squamous LM Ql (Urine sed) 10-19 [HPF] 0-2 [facility] Total Protein, CSF #2on - Total Protein, CSF #2 36 mg/dL Normal 15-45 [facility] Comment on above: Order Comment: Comme nt Tube 3 Result Comment: PERF ORMED BY: [place] [address] PATHOLOGIST CASING PULLER RUIZ CLIFTON M.D. Performed By: #### C REAT, ESR, CRP, HEPATIC, CK, CBC, MISC LAB #### [place] [address] [place] #### ANTI-KU AB, MITOM2, CH50, PAT, RNA POLYMR, C3, C4 #### [facility] , Total Protein, Spinal Fluido n 03-21-2023 Total Protein, Spinal Fluid 39 mg/dL Normal 15-45 [facility] Comment on above: Order Comment: Comme nt Tube 1 Result Comment: PERF ORMED BY: [place] [address] PATHOLOGIST CASING PULLER RUIZ CLIFTON M.D. Performed By: #### C REAT, ESR, CRP, HEPATIC, CK, CBC, MISC LAB #### [place] [address] [place] #### ANTI-KU AB, MITOM2, CH50, PAT, RNA POLYMR, C3, C4 #### [facility] , Urea nitrogen [Mass/volume] in Serum or PlasmaOrdered By: Bernard Peterson on 03-21-2023 Urea nitrogen [Mass/Vol] 3 mg/dL Low 7-25 [facility] Comment on above: Performed By: #### C REAT, ESR, CRP, HEPATIC, CK, CBC, MISC LAB #### [facility] [address] #### ANTI-KU AB, MITOM2, CH50, PAT, RNA POLYMR, C3, C4 #### [facility] , Urine Cultureon 03-21-2023 Bacteria identified Cx Nom (U) ORGANISM: Klebsiella pneumoniae (O:KLEPNE) [place] Count >100,000 Aerobic JOSEPH Charge ([id number]) - [...] RESISTANT TO ALL B-LACTAM DRUGS. PERFORMED BY: [place] [address] PATHOLOGIST CASING PULLER RUIZ CLIFTON M.D. Normal [facility] Comment on above: Performed By: #### C REAT, ESR, CRP, HEPATIC, CK, CBC, MISC LAB #### [address] #### ANTI-KU AB, MITOM2, CH50, PAT, RNA POLYMR, C3, C4 #### [facility] , Urine bacteria detection by automated methodOrdered By: PROVIDER TEM on 03-21-2023 Bacteria Auto Ql (U) 4+ None Seen [facility] Urine clarity by refractomet ry automatedOrdered By: [facility]ER [facility] on 03-21-2023 Clarity Refractometry automated (U) Cloudy Clear [facility] Urine culture routineOrdered By: [facility]ER [facility] on 03-21-2023 Bacteria identified Cx Nom (U) Klebsiella pneumoniae [facility] Bacteria identified Cx Nom (U) Klebsiella pneumoniae [facility] Urine glucose measurement by automated test strip (mass/volume)Ordered By: [facility] on 03-21-2023 Glucose Auto test strip (U) [Mass/Vol] Normal mg/dL Normal [facility] Urine hemoglobin detection b y automated test stripOrdered By: PROVIDER TEM on 03-21-2023 Hemoglobin Auto test strip Ql (U) Negative Negative [facility] Urine leukocyte esterase det ection by automated test stripOrdered By: PROVIDER TEM on 03-21-2023 Leukocyte esterase Auto test strip Ql (U) 2+ Negative [facility] Urine pH measurement by auto mated test stripOrdered By: [facility] on 03-21-2023 pH (U) 5.0 [pH] Normal 5.0-9.0 [facility] Comment on above: Order Comment: Name Collection Type:: Clean-Voided Midstream Performed By: #### C REAT, ESR, CRP, HEPATIC, CK, CBC, MISC LAB #### [facility] [address] [place] [address] [place] #### ANTI-KU AB, MITOM2, CH50, PAT, RNA POLYMR, C3, C4 #### [facility] , Urobilinogen Auto test strip (U) [Mass/Vol]Ordered By: PROVIDER TEMP on 03-21-2023 Urobilinogen (U) [Mass/Vol] Normal mg/dL [facility] ED Note-Physicianon 03-13-20 ED Note-Physician [id number]#[id number]: 127 [facility] Auth for Release of Medical Recordson 03-12-2023 Auth for Release of Medical Records [id number]: 127 [facility] ED NOTEon 01-29-2023 ED NOTE HNO ID: [id number] Author: Cris Tapia, NATHEN Service: ? Author Type: Clinical Community Health Nurse Supervisor Type: ED Notes Filed: 01/29/2023 12:55 AM Note Text: Where is my mom? Can you take my IV out? You can't keep my phone from me PT restless, safety maintained. [facility] ED NOTE HNO ID: [id number] Author: Arsh Ivy DO Service: Emergency Medicine Author Type: Physician Type: ED Notes Filed: 01/31/2023 5:08 PM Note Text: Callback completed. No questions or concerns from the ED visit from yesterday. States that she feels fine and she made it home okay. Informed if there is any issues or concerns she is always welcome to return. [facility] ED NOTE HNO ID: [id number] Author: Ghulam Villalobos RN Service: ? Author Type: Registered Nurse Type: ED Notes Filed: 01/29/2023 6:52 AM Note Text: Pt received written and verbal discharge instructions. Pt verbalizes understanding. All belongings with patient. Pt departed ED. [facility] ED NOTE HNO ID: [id number] Author: Cris R Kubacki, CT Service: ? Author Type: Clinical Community Health Nurse Supervisor Type: ED Notes Filed: 01/29/2023 6:30 AM Note Text: PT is getting DC'd [facility] ED NOTE HNO ID: [id number] Author: Ghulam Villalobos RN Service: ? Author Type: Registered Nurse Type: ED Notes Filed: 01/29/2023 6:01 AM Note Text: Pt resting comfortably in bed. No acute distress noted. Safety maintained. [facility] ED NOTE HNO ID: [id number] Author: Cris Tapia, CT Service: ? Author Type: Clinical Community Health Nurse Supervisor Type: ED Notes Filed: 01/29/2023 5:32 AM Note Text: PT resting in bed with no complaints at this time. Comfort measures offered. No acute distress noted, safety maintained. [facility] ED NOTE HNO ID: [id number] Author: Ghulam Villalobos RN Service: ? Author Type: Registered Nurse Type: ED Notes Filed: 01/29/2023 5:13 AM Note Text: Pt resting comfortably in bed. No acute distress noted. Safety maintained. [facility] ED NOTE HNO ID: [id number] Author: Ghulam Villalobos RN Service: ? Author Type: Registered Nurse Type: ED Notes Filed: 01/29/2023 4:31 AM Note Text: Pt resting comfortably in bed. No acute distress noted. Safety maintained. [facility] ED NOTE HNO ID: [id number] Author: Cris Tapia, CT Service: ? Author Type: Clinical Community Health Nurse Supervisor Type: ED Notes Filed: 01/29/2023 4:03 AM Note Text: PT is resting in bed with no complaints at this time. Lights are off and bed is lowered in lowest position. Equal chest rise and fall is observed. No acute distress is noted, safety maintained. [facility] ED NOTE HNO ID: [id number] Author: Cris Tapia, CT Service: ? Author Type: Clinical Community Health Nurse Supervisor Type: ED Notes Filed: 01/29/2023 4:03 AM Note Text: PT is resting in bed with no complaints at this time. Lights are off and bed is lowered in lowest position. Equal chest rise and fall is observed. No acute distress is noted, safety maintained. [facility] ED NOTE HNO ID: [id number] Author: Ghulam Villalobos RN Service: ? Author Type: Registered Nurse Type: ED Notes Filed: 01/29/2023 3:37 AM Note Text: Pt resting comfortably in bed. No acute distress noted. Safety maintained. [facility] ED NOTE HNO ID: [id number] Author: Ghulam Villalobos RN Service: ? Author Type: Registered Nurse Type: ED Notes Filed: 01/29/2023 3:02 AM Note Text: Pt resting comfortably in bed. No acute distress noted. Safety maintained. [facility] ED NOTE HNO ID: [id number] Author: Cris Tapia, CT Service: ? Author Type: Clinical Community Health Nurse Supervisor Type: ED Notes Filed: 01/29/2023 2:31 AM Note Text: PT is resting in bed with no complaints at this time. Lights are off and bed is lowered in lowest position. Equal chest rise and fall is observed. No acute distress is noted, safety maintained. [facility] ED NOTE HNO ID: [id number] Author: Ghulam Villalobos RN Service: ? Author Type: Registered Nurse Type: ED Notes Filed: 01/29/2023 2:04 AM Note Text: Pt resting comfortably in bed. No acute distress noted. Safety maintained. [facility] ED NOTE HNO ID: [id number] Author: Ghulam Villalobos RN Service: ? Author Type: Registered Nurse Type: ED Notes Filed: 01/29/2023 1:34 AM Note Text: Pt resting comfortably in bed. No acute distress noted. Safety maintained. [facility] ED NOTE HNO ID: [id number] Author: Ghulam Villalobos RN Service: ? Author Type: Registered Nurse Type: ED Notes Filed: 01/29/2023 1:04 AM Note Text: Pt resting comfortably in bed. No acute distress noted. Safety maintained. [facility] ED NOTE HNO ID: [id number] Author: Cris Tapia, CT Service: ? Author Type: Clinical Community Health Nurse Supervisor Type: ED Notes Filed: 01/29/2023 12:56 AM Note Text: PT resting in bed with no complaints at this time. Comfort measures offered. No acute distress noted, safety maintained. [facility] ED NOTE HNO ID: [id number] Author: Cris Tapia, CT Service: ? Author Type: Clinical Community Health Nurse Supervisor Type: ED Notes Filed: 01/29/2023 12:53 AM Note Text: PT resting in bed with no complaints at this time. Comfort measures offered. No acute distress noted, safety maintained. [facility] ED NOTE HNO ID: [id number] Author: Cris Tapia, CT Service: ? Author Type: Clinical Community Health Nurse Supervisor Type: ED Notes Filed: 01/29/2023 12:52 AM Note Text: PT restless. Safety maintained. [facility] ED NOTE HNO ID: [id number] Author: Cris Tapia, NATHEN Service: ? Author Type: Clinical Community Health Nurse Supervisor Type: ED Notes Filed: 01/29/2023 12:18 AM Note Text: PT resting in bed with no complaints at this time. Comfort measures offered. No acute distress noted, safety maintained. [facility] ED NOTE HNO ID: [id number] Author: Ghulam Villalobos RN Service: ? Author Type: Registered Nurse Type: ED Notes Filed: 01/28/2023 10:14 PM Note Text: Pt given portable phone again. Pt threw phone. Pt verbally deescalated. [facility] ED NOTE HNO ID: [id number] Author: Ghulam Villalobos RN Service: ? Author Type: Registered Nurse Type: ED Notes Filed: 01/28/2023 10:15 PM Note Text: Pt resting comfortably in bed. No acute distress noted. Safety maintained. [facility] ED PROV NOTEon 01-29-2023 ED PROV NOTE HNO ID: [id number] Author: Arsh Ivy DO Service: Emergency Medicine [...] on the same specimen through Client Services ([phone]) if contacted within 48 hours of initial testing. [1]Substance Abuse and Mental Health Services Administration (2012). Clinical Drug Testing in Primary Care Technical Assistance Publication Series 32. Department of Health and Human Services, [place], p.10. URINALYSIS WITH MICROSCOPIC, REFLEX CULTURE - Abnormal; Notable for the following components: Specific [place], Ur <=1.005 (*) Leuk Esterase 1+ (*) [...] on the same specimen through Client Services ([phone]) if contacted within 48 hours of initial [...] Bilirubin, Urine Negative Ketones, Urine Negative Specific [place], Ur <=1.005(!) Hemoglobin/Blood,Ur Negative pH, Urine 6.0 Protein, Urine Negative Urobilinogen 0.2 EU/dL Nitrites Negative Leukest 1+(!) WBC, Urine 11-25 /HPF(!) RBC, Urine 0-3 /HPF Bacteria Many(!) Epithelial Cells Many [CD] 2258 HCG QUALITATIVE URINE: HCG Qualitative, Urine Negative [CD] ED Course User Index [CD] Ronda Patel DO Clinical Impressions as of 01/29/23 0601 Alcoholic intoxic (more content not included)... Normal [facility] CBC panel Auto (Bld)on 01-28 Erythrocyte distribution width (RBC) [Ratio] 12.9 % Normal 11.5-15.0 [facility] Comment on above: Order Comment: Speci men Type: URINE SPECIMEN Ordering Facility: [facility] Address: [address] [place] [address] Performed By: #### U TOX2, 2105-09 #### [facility] CLIA [id number] [address] [place] [address] STATES [facility] Hematocrit (Bld) [Volume fraction] 38.2 % Normal 36.0-46.0 [facility] Comment on above: Order Comment: Speci men Type: URINE SPECIMEN Ordering Facility: [facility] Address: [address] [place] [address] Performed By: #### U TOX2, 2105-09 #### [facility] CLIA [id number] [address] [place] [address] [place] Hemoglobin (Bld) [Mass/Vol] 12.8 g/dL Normal 11.5-15.5 [facility] Comment on above: Order Comment: Speci men Type: URINE SPECIMEN [facility] Facility: [facility] Address: [address] [place] [address] Performed By: #### U TOX2, 2105-09 #### [facility] CLIA [id number] [address] [place] [address] [place] MCH (RBC) [Entitic mass] 35.5 pg High 26.0-34.0 [facility] Comment on above: Order Comment: Speci men Type: URINE SPECIMEN [facility]ing Facility: [facility] Address: [address] [place], [place] [address] Performed By: #### U TOX2, 2105-09 #### [facility] CLIA [id number] [address] [place], [place] [address] [place] MCHC (RBC) [Mass/Vol] 33.5 g/dL Normal 30.5-36.0 [facility] Comment on above: Order Comment: Speci men Type: URINE SPECIMEN [facility]ing Facility: [facility] Address: [address] Performed By: #### U TOX2, 2105-09 #### [facility] CLIA [id number] [facility] [place] [address] [place] MCV (RBC) [Entitic vol] 105.8 fL High 80.0-100.0 L [facility] Comment on above: Order Comment: Speci men Type: URINE SPECIMEN [facility]ing Facility: [facility] Address: [address] Performed By: #### U TOX2, 2105-09 #### [facility] CLIA [id number] [address] [place] [address] [place] Nucleated RBC (Bld) [#/Vol] 10*3/uL Normal <0.01 [facility] Comment on above: Order Comment: Speci men Type: URINE SPECIMEN [facility] Facility: [facility] Address: [address] [place], [place] [address] Performed By: #### U TOX2, 2105-09 #### [facility] CLIA [id number] [address] [place], [place] [address] [place] Platelet mean volume (Bld) [Entitic vol] 9.3 fL Normal 9.0-12.7 [facility] Comment on above: Order Comment: Speci men Type: URINE SPECIMEN [facility]ing Facility: [facility] Address: [address] [place] [address] Performed By: #### U TOX2, 2105-09 #### [facility] CLIA [id number] [address] [place], [place] [address] [place] Platelets (Bld) [#/Vol] 290 10*3/uL Normal 150-400 [facility] Comment on above: Order Comment: Speci men Type: URINE SPECIMEN [facility]ing Facility: [facility] Address: [address] [place], [place] [address] Performed By: #### U TOX2, 2105-09 #### [facility] CLIA [id number] [address] [place], [place] [address] [facility] [place] RBC (Bld) [#/Vol] 3.61 10*6/uL Low 3.90-5.20 [facility] Comment on above: Order Comment: Speci men Type: URINE SPECIMEN [facility]ing Facility: [facility] Address: [address] [place] [address] Performed By: #### U TOX2, 2105-09 #### [facility] CLIA [id number] [address] [place], [place] [address] [facility] [place] WBC (Bld) [#/Vol] 8.78 10*3/uL Normal 3.70-11.00 [facility] Comment on above: Order Comment: Speci men Type: URINE SPECIMEN Ordering Facility: [facility] Address: [address] [place] [address] Performed By: #### U TOX2, 2105-09 #### [facility] CLIA [id number] [address] [place], [place] [address] [facility] [place] Comprehensive metabolic 2000 panelon 01-28-2023 Albumin [Mass/Vol] 3.5 g/dL Low 3.9-4.9 [facility] Comment on above: Order Comment: Speci men Type: URINE SPECIMEN [facility] Facility: [facility] Address: [address] [place] [address] Performed By: #### U TOX2, 2105-09 #### [facility] CLIA [id number] [address] [place], [place] [address] [facility] [place] ALP [Catalytic activity/Vol] 213 U/L High 34-123 [facility] Comment on above: Order Comment: Speci men Type: URINE SPECIMEN [facility] Facility: [facility] Address: [address] [place] [address] Performed By: #### U TOX2, 2105-09 #### [facility] CLIA [id number] [address] [place], [place] [address] [place] ALT [Catalytic activity/Vol] 75 U/L High 7-38 [facility] Comment on above: Order Comment: Speci men Type: URINE SPECIMEN [facility]ing Facility: [facility] Address: [address] [place] [address] Performed By: #### U TOX2, 2105-09 #### [facility] CLIA [id number] [address] [place], [place] [address] [place] Anion gap [Moles/Vol] 20 mmol/L High 9-18 [facility] Comment on above: Order Comment: Speci men Type: URINE SPECIMEN [facility]ing Facility: [facility] Address: [address] [place] [address] Performed By: #### U TOX2, 2105-09 #### [facility] CLIA [id number] [facility] [address] [place] [address] [place] AST [Catalytic activity/Vol] 104 U/L High 13-35 [facility] Comment on above: Order Comment: Speci men Type: URINE SPECIMEN [facility]ing Facility: [facility] Address: [address] [place] [address] Performed By: #### U TOX2, 2105-09 #### [facility] CLIA [id number] [address] [place], [place] [address] [place] Bilirubin [Mass/Vol] 0.6 mg/dL Normal 0.2-1.3 [facility] Comment on above: Order Comment: Speci men Type: URINE SPECIMEN [facility]ing Facility: [facility] Address: [address] [place] [address] Performed By: #### U TOX2, 2105-09 #### [facility] CLIA [id number] [address] [place], [place] [address] [place] Calcium [Mass/Vol] 9.0 mg/dL Normal 8.5-10.2 [facility] Comment on above: Order Comment: Speci men Type: URINE SPECIMEN Ordering Facility: [facility] Address: [address] Performed By: #### U TOX2, 2105-09 #### [facility] CLIA [id number] [facility] [place], [place] [address] [place] Chloride [Moles/Vol] 100 mmol/L Normal 97-105 [facility] Comment on above: Order Comment: Speci men Type: URINE SPECIMEN [facility]ing Facility: [facility] Address: [address] Performed By: #### U TOX2, 2105-09 #### [facility] CLIA [id number] [facility] [address] [place] [address] [place] CO2 [Moles/Vol] 18 mmol/L Low 22-30 [facility] Comment on above: Order Comment: Speci men Type: URINE SPECIMEN [facility]ing Facility: [facility] Address: [address] [place] [phone] Performed By: #### U TOX2, 2105-09 #### [facility] CLIA [id number] [address] [place] [address] [place] Creatinine [Mass/Vol] 0.56 mg/dL Low 0.58-0.96 [facility] Comment on above: Order Comment: Speci men Type: URINE SPECIMEN [facility] Facility: [facility] Address: [address] Performed By: #### U TOX2, 2105-09 #### [facility] CLIA [id number] [facility] [place], [place] [address] [place] ESTIMATED GLOMERULAR FILTRATION RATE 128 mL/min/1.73m??? Normal >=60 [facility] Comment on above: Order Comment: Speci men Type: URINE SPECIMEN [facility] Facility: [facility] Address: [address] [place], [place] [address] Result Comment: Ebony mated Glomerular Filtration Rate [...] Performed By: #### U TOX2, 2105-09 #### [facility] CLIA [id number] [facility] [place] [address] [place] Glucose [Mass/Vol] 113 mg/dL High 74-99 [facility] Comment on above: Order Comment: Jim etienne Type: URINE SPECIMEN Ordering Facility: [facility] Address: [address] [place], [place] [address] Result Comment: The [place] Diabetes Association (ADA) provides guidance for cutoff [...] Standards of Medical Care in Diabetes 2016, [place] [employer]. Diabetes Care. 2016.39(Suppl 1). Performed By: #### U TOX, 2105-09 #### [facility] IA [id number] [address] [place], [place] [address] [place] Potassium [Moles/Vol] 3.1 mmol/L Low 3.7-5.1 [facility] Comment on above: Order Comment: Jim etienne Type: URINE SPECIMEN [facility] Facility: [facility] Address: [address] [place], [place] [address] Performed By: #### U TOX2, 2105-09 #### [facility] CLIA [id number] [address] [place] [place] [address] [place] Protein [Mass/Vol] 6.8 g/dL Normal 6.3-8.0 [facility] Comment on above: Order Comment: Speci men Type: URINE SPECIMEN [facility]ing Facility: [facility] Address: [address] [place], [place] [address] Performed By: #### U TOX2, 2105-09 #### [facility] CLIA [id number] [address] [place] [address] Sodium [Moles/Vol] 138 mmol/L Normal 136-144 [facility] Comment on above: Order Comment: Speci men Type: URINE SPECIMEN [facility]ing Facility: [facility] Address: [address] [place] [address] Performed By: #### U TOX2, 2105-09 #### [facility] CLIA [id number] [address] Urea nitrogen [Mass/Vol] mg/dL Low 7-21 [facility] Comment on above: Order Comment: Speci men Type: URINE SPECIMEN [facility] Facility: [facility] Address: [address] [place], [place] [address] Performed By: #### U TOX2, 2105-09 #### [facility] CLIA [id number] [address] [place] [place] [address] [facility] ECG COMPLETEon 01-28-2023 ECG COMPLETE Ventricular Rate : 1 16 BPM Atrial Rate : 116 BPM P-R Interval : 140 ms QRS Duration : 75 ms Q-T Interval : 351 ms QTC Calculation(Bazett) : 488 ms Calculated P [place] : 71 degrees Calculated R [place] : 81 degrees Calculated T [place] : 25 degrees Sinus tachycardia Borderline prolonged QT interval Borderline ECG Confirmed by RONDA PATEL DO ([id number]), publications editor JOE ROCHA ([id number]) on 01/29/2023 12:31:09 PM NAME : RICA STOUT PID : [id number] : 1995 Gender : Female Race : Unknown ORD : [id number] Procedure Date : Jan 28 2023 21:12:20 Edit Date : Jan 29 2023 12:31:09 Diagnosis: Sinus tachycardia Borderline prolonged QT interval Borderline ECG Confirmed by RONDA PATEL DO ([id number]), publications editor JOE ROCHA ([id number]) on 01/29/2023 12:31:09 PM Test Reason : Arrhythmia Location : 502 : LU[facility] 6 Overread By : RONDA PATEL DO Edited By : JOE ROCHA Referred By : , Acquired by : [id number], [facility] ED NOTEon 01-28-2023 ED NOTE HNO ID: [id number] Author: Ghulam Villalobos RN Service: ? Author Type: Registered Nurse Type: ED Notes Filed: 01/28/2023 10:13 PM Note Text: Pt given portable phone to call family. [facility] ED NOTE HNO ID: [id number] Author: Ghulam Villalobos RN Service: ? Author Type: Registered Nurse Type: ED Notes Filed: 01/28/2023 10:12 PM Note Text: Pt placed on continuous cardiac and oxygen monitoring. [facility] ED NOTE HNO ID: [id number] Author: Ghulam Villalobos RN Service: ? Author Type: Registered Nurse Type: ED Notes Filed: 01/28/2023 8:23 PM Note Text: Pt BIB EMS for ETOH. Pt denies SI/HI. Pt denies AVH. Pt stating her mom called EMS because for the last two months her feet have been swollen. Pt denies any PMH. Pt has no other complaints at this time. [facility] ED NOTE HNO ID: [id number] Author: Genet Erickson RN Service: ? Author Type: Registered Nurse Type: ED Notes Filed: 01/28/2023 8:09 PM Note Text: Bed: ED-06 Expected date: Expected time: Means of arrival: Comments: ems [facility] ED PROV NOTEon 01-28-2023 ED PROV NOTE HNO ID: [id number] Author: Ronda Patel DO Service: Emergency Medicine Author Type: [...] on the same specimen through Client Services ([phone]) if contacted within 48 hours of initial testing. [1]Substance Abuse and Mental Health Services Administration (2012). Clinical Drug Testing in Primary Care Technical Assistance Publication Series 32. Department of Health and Human Services, [place], p.10. URINALYSIS WITH MICROSCOPIC, REFLEX CULTURE - Abnormal; Notable for the following components: Specific [place], Ur <=1.005 (*) 1.005 - 1.030 Leuk [...] on the same specimen through Client Services ([phone]) if contacted within 48 hours of initial testing. (more content not included)... Normal [facility] Ethanol [facility] 01-28- 023 Ethanol [Mass/Vol] 313 mg/dL High <11 [facility] Comment on above: Order Comment: Speci men Type: URINE SPECIMEN [facility] Facility[facility] Address: [address] [place] [address] Result Comment: Valu es > 80 mg/dL may indicate intoxication Performed By: #### U TOX2, 2105-09 #### [facility] CLIA [id number] [address] [place] [address] [place] FENTANYL SCREEN, QUALITATIVE , URINEon 01-28-2023 fentaNYL Screen Ql (U) Negative Normal Negative [facility] Comment on above: Order Comment: Speci men Type: URINE SPECIMEN [facility] Facility: [facility] Address: [address] [place] [address] Result Comment: Cuto ff threshold at 5 ng/mL. Performed By: #### U TOX2, 2105-09 #### [facility] CLIA [id number] [address] [place] [address] [place] HCG Preg Ur Qlon 01-28-2023 HCG ( test) Ql (U) Negative Normal Negative [facility] Comment on above: Order Comment: Speci men Type: URINE SPECIMEN [facility] Facility: [facility] Address: [address] [place] [address] Result Comment: This test is intended to aid in the early detection of . Very dilute urine samples, as indicated by a low specific gravity, may not contain employment representative levels of hCG. This test detects [...] Performed By: #### U TOX2, 2105-09 #### [facility] CLIA [id number] [address] [place] [address] [place] NURSING PROGon 01-28-2023 NURSING PROG HNO ID: [id number] Author: Ghulam Villalobos RN Service: ? Author Type: Registered Nurse Type: Nursing Progress Note Filed: 01/28/2023 9:28 PM Note Text: Nursing Progress: Topic: [employer] VIOLENT PATIENT NAME: Rica Stout Patient Location: Room: ED-06 The patient demonstrates Combative Behavior [...] 2023 TIME: 9:00 PM Ghulam Villalobos RN Normal [facility] SARS-CoV-2 RNA Resp Ql OKSANA+p robeon 01-28-2023 SARS-CoV-2 (COVID-19) RNA OKSANA+probe Ql (Resp) COVID 19 RESULT: Not detected The method used is RT-PCR or an equivalent NAAT method. Reference Range(the expected result in uninfected individuals): Not detected Normal [facility] Comment on above: Performed By: #### 9 4500-6 #### [facility] CLIA [id number] [address] [place] [address] [place] TOX SCREEN ROUT URon 023 Amphetamines Confirm (U) [Mass/Vol] Negative Normal Negative [facility] Comment on above: Order Comment: Speci men Type: URINE SPECIMEN [facility] Facility: [facility] Address: [address] [place], [place] [address] Result Comment: Cuto ff threshold at 1000 ng/mL. Performed By: #### U TOX2, 6-3 #### [facility] CLIA [id number] [address] [place] [address] [place] BARBITURATES, URINE Negative Normal Negative [facility] Comment on above: Order Comment: Speci men Type: URINE SPECIMEN [facility] Facility: [facility] Address: [address] [place] [address] Result Comment: Cuto ff threshold at 200 ng/mL. Performed By: #### U TOX2, 2105-09 #### [facility] CLIA [id number] [facility] [place], [place] [address] [place] BENZODIAZEPINES, UR Negative Normal Negative [facility] Comment on above: Order Comment: Speci men Type: URINE SPECIMEN [facility] Facility: [facility] Address: [address] [place] [address] Result Comment: Cuto ff threshold at 200 ng/mL. Performed By: #### U TOX2, 2105-09 #### [facility] CLIA [id number] [address] [place] [address] [place] CANNABINOIDS,URINE Negative Normal Negative [facility] Comment on above: Order Comment: Speci men Type: URINE SPECIMEN [facility] Facility[facility] Address: [address] [place] [address] Result Comment: Cuto ff threshold at 50 ng/mL. Performed By: #### U TOX2, 2105-09 #### [facility] CLIA [id number] [facility] [address] [place] [address] [place] Cocaine Ql (U) Negative Normal Negative [facility] Comment on above: Order Comment: Speci men Type: URINE SPECIMEN [facility] Facility[facility] Address: [address] [place] [address] Result Comment: Cuto ff threshold at 300 ng/mL. Performed By: #### U TOX2, 2105-09 #### [facility] CLIA [id number] [facility] [address] [place], [place] [address] [place] Ethanol (U) [Mass/Vol] 371 mg/dL High <11 [facility] Comment on above: Order Comment: Speci men Type: URINE SPECIMEN [facility] Facility: [facility] Address: [address] [place], [place] [address] Performed By: #### U TOX2, 2105-09 #### [facility] CLIA [id number] [address] [place], [place] [address] [facility] Opiates Screen Ql (U) Negative Normal Negative [facility] Comment on above: Order Comment: Speci men Type: URINE SPECIMEN [facility] Facility: [facility] Address: [address] [place] [address] Result Comment: Cuto ff threshold at 300 ng/mL. Performed By: #### U TOX2, 2105-09 #### [facility] CLIA [id number] [address] [place] [address] oxyCODONE cutoff Screen (U) [Mass/Vol] Negative Normal Negative [facility] Comment on above: Order Comment: Speci men Type: URINE SPECIMEN [facility] Facility: [facility] Address: [address] [place] [address] Result Comment: Cuto ff threshold at 100 ng/mL. Performed By: #### U TOX2, 2105-09 #### [facility] CLIA [id number] [address] [place] [address] Phencyclidine Ql (U) Negative Normal Negative [facility] Comment on above: Order Comment: Speci men Type: URINE SPECIMEN [facility] Facility[facility] Address: [address] [place] [address] Result Comment: Cuto ff threshold at 25 ng/mL. Performed By: #### U TOX2, 2105-09 #### [facility] CLIA [id number] [address] [place], [place] [address] [facility] [place] Urinalysis complete panel (U )on 01-28-2023 Bacteria LM.HPF (Urine sed) [#/Area] Many Abnormal None Seen [facility] Comment on above: Order Comment: Speci men Type: URINE SPECIMENOrdering Facility: [facility] Address: [address] [place] [address] Performed By: #### 2 4356-8 ####[facility] [id number] [address] [place], [place] [address] [facility] LABCLIA [id number] [place] [id number] [place] Bilirubin Ql (U) Negative Normal Negative [facility] Comment on above: Order Comment: Speci men Type: URINE SPECIMENOrdering Facility: [facility] Address: [address] [place] [address] Performed By: #### 2 4356-8 ####[facility] [id number] [address] LABCLIA [id number] [place] [id number] [facility] OF [place] Clarity (Unsp spec) Clear Normal Clear [facility] Comment on above: Order Comment: Speci men Type: URINE SPECIMENOrdering Facility: [facility] Address: [address] [place] [address] Performed By: #### 2 4356-8 ####[facility] [id number] [place] [id number] [facility] LABCLIA [id number] [place] [id number] [place] Color (U) Yellow Normal Yellow [facility] Comment on above: Order Comment: Speci men Type: URINE SPECIMENOrdering Facility: [facility] Address: [address] [place] [address] Performed By: #### 2 4356-8 ####[facility] [id number] [place] [id number] [facility] LABCLIA [id number] [place] [address] [place] Epithelial cells LM.HPF (Urine sed) [#/Area] Many Normal [facility] Comment on above: Order Comment: Speci men Type: URINE SPECIMENOrdering Facility: [facility] Address: [address] [place], [place] [address] Performed By: #### 2 4356-8 ####[facility] [id number] [address] [place], [place] [address] [facility] LABCLIA [id number] [address] Glucose Test strip (U) [Mass/Vol] Negative Normal Negative [facility] Comment on above: Order Comment: Speci men Type: URINE SPECIMENOrdering Facility: [facility] Address: [address] [place], [place] [address] Performed By: #### 2 4356-8 ####[facility] [id number] [address] [place] [address] LABCLIA [id number] [address] STATES [facility] Hemoglobin Ql (U) Negative Normal Negative, Trace [facility] Comment on above: Order Comment: Speci men Type: URINE SPECIMENOrdering Facility: [facility] Address: [address] [place], [place] [address] Performed By: #### 2 4356-8 ####[facility] [id number] [place] [id number] [facility] LABCLIA [id number] [place] [id number] [place] [facility] Ketones Ql (U) Negative Normal Negative [facility] Comment on above: Order Comment: Speci men Type: URINE SPECIMENOrdering Facility: [facility] Address: [address] [place], [place] [address] Performed By: #### 2 4356-8 ####[facility] [id number] [address] LABCLIA [id number] [place] [address] [place] Leukocyte esterase Test strip Ql (U) 1+ Abnormal Negative [facility] Comment on above: Order Comment: Speci men Type: URINE SPECIMENOrdering Facility: [facility] Address: [address] [place] [address] Performed By: #### 2 4356-8 ####[facility] [id number] [address] LABCLIA [id number] [place] [address] [place] Nitrite Ql (U) Negative Normal Negative [facility] Comment on above: Order Comment: Speci men Type: URINE SPECIMENOrdering Facility: [facility] Address: [address] [place] [address] Performed By: #### 2 4356-8 ####RESTOR[facility] LABORATORYCLIA [id number] [address] LABCLIA [id number] [place] [address] [place] pH (U) 6.0 [pH] Normal 5.0-8.0 [facility] Comment on above: Order Comment: Speci men Type: URINE SPECIMENOrdering Facility: [facility] Address: [address] [place], [place] [id number] Performed By: #### 2 4356-8 ####RESTORATION LABORATORYCLIA [id number] [address] LABCLIA [id number] [place] [address] [place] [facility] Protein (U) [Mass/Vol] Negative Normal Negative [facility] Comment on above: Order Comment: Speci men Type: URINE SPECIMENOrdering Facility: [facility] Address: [address] [place], [place] [address] Performed By: #### 2 4356-8 ####RESTORATION LABORATORYCLIA [id number] [address] [place] [address] LABCLIA [id number] [place] [address] [place] RBC LM.HPF (Urine sed) [#/Area] 0-3 /HPF Normal 0-3 /HPF [facility] Comment on above: Order Comment: Speci men Type: URINE SPECIMENOrdering Facility: [facility] Address: [address] [place] [address] Performed By: #### 2 4356-8 ####RESTOR[facility] LABORATORYCLIA [id number] [address] [place] [address] LABCLIA [id number] [place] Specific gravity (U) [Rel density] <=1.005 Low 1.005-1.030 [facility] Comment on above: Order Comment: Speci men Type: URINE SPECIMENOrdering Facility: [facility] Address: [address] [place] [address] Performed By: #### 2 4356-8 ####RESTORATION LABORATORYCLIA [id number] [address] LABCLIA [id number] [address] Urobilinogen Ql (U) 0.2 EU/dL Normal 0.2-1.0 EU/dL [facility] Comment on above: Order Comment: Speci men Type: URINE SPECIMENOrdering Facility: [facility] Address: [address] [place] [address] Performed By: #### 2 4356-8 ####RESTORATION LABORATORYCLIA [id number] [address] [place] [address] LABCLIA [id number] [place] [address] [place] WBC LM.HPF (Urine sed) [#/Area] 11-25 /HPF Abnormal 0-5 /HPF [facility] Comment on above: Order Comment: Speci men Type: URINE SPECIMENOrdering Facility: [facility] Address: [address] [place], [place] [address] Performed By: #### 2 4356-8 ####RESTORATION LABORATORYCLIA [id number] [address] [place] [address] [place] [facility] LABCLIA [id number] [place] [address] [place] Urinalysis complete pnl [...] <=32 , Intermediate >32 , Resistant >64 [facility] Comment on above: Order Comment: Speci men Type: URINE SPECIMENOrdering Facility: [facility] Address: [address] [place] [address] Performed By: #### 2 4356-8 ####RESTORATION LABORATORYCLIA [id number] [address] LABCLIA [id number] [address] XR CSPINE MIN 4 VIEWSon 09-21 [...] of cervical lordosis Electronically authenticated by: KARYNA Phelps: 2022-10-19 08:05 Normal [facility] MRI LSPINE WO CONon 10-19-19 23 [...] by: KARYNA LANGFORD Date: 2022-10-18 15:24 Normal [facility] XR LSPINE MIN 4 VIEWSon 09-19 [...] by: DAVID TRUONG Date: 2022-09-28 07:03 Normal [facility] MAMMO POST BIOPSY RIGHTon MAMMO POST BIOPSY RIGHT Patient: LISAMELVINRICA Exam Date: 09/27/2022 : 1995 Gender:F Ordering : DANUTA ARAUJO [facility] Admission #: [id number] Family : DR KARYNA LANGFORD M.D. Order #: [id number] CLICK HERE TO VIEW EXAM This report [...] Langford MD on 10/03/2022 at 06:51 Normal [facility] US VAC ASST BX BRST RT W CLI Cyrus 09-27-2022 US VAC ASST BX BRST RT W CLIP Patient: RICA STOUT Exam Date: 09/27/2022 : 1995 Gender:F Ordering : DANUTA ARAUJO [facility] Admission #: [id number] Family : Order #: [id number] CLICK HERE TO VIEW EXAM This report [...] Langford MD on 10/03/2022 at 06:48 Normal [facility] PAT by IFAon 09-25-2022 Antinuclear Antibodies, IFA Negative Normal [facility] Comment on above: Result Comment: Nega tive <1:80 Borderline 1:80 Positive >1:80 ICAP nomenclature: AC-0 For more information about Hep-2 cell patterns use ANApatterns.org, the official website for the International Consensus on Antinuclear Antibody (PAT) Patterns (ICAP). Performed By: #### C IRINA BENOIT #### [facility] [address] [place] [address] Dr. Kush Call ANTISTREPTOLYSIN O AB (ASO)o n 09-20-2022 Antistreptolysin O Ab 71.6 IU/mL Normal 0.0-200.0 [facility] Comment on above: Performed By: #### C IRINA BENOIT #### [facility] [address] [place] [address] Dr. Kush Call MG MAMM DIAGNOSTIC 3D JOAQUIM CA Don 09-20-2022 MG MAMM DIAGNOSTIC 3D JOAQUIM CAD Patient: RICA STOUT Exam Date: 09/20/2022 : 1995 Gender:F Ordering : DANUTA ARAUJO [facility] Admission #: [id number] Family : Order #: [id number] CLICK HERE TO VIEW EXAM RADIOLOGY REPORT [...] unknown cancer at age 70. LOCATION: [facility] BREAST COMPOSITION: Heterogeneously dense,which may obscure small [...] MD on 09/20/2022 at 14:51 Normal [facility] RHEUMATOID FACTORon 09-21-19 23 RA Latex Turbid. <10.0 Normal <14.0 [facility] Comment on above: Performed By: #### C KAYCEE CMADM #### [facility] [address] [place] [address] Dr. Kush Call CRPon 09-19-2022 CRP [Mass/Vol] mg/L Normal <=1.0 [facility] Comment on above: Performed By: #### C RP, CMP, URIC, MG #### [facility] [address] [place] [address] Dr. Kush Call FOLATEon 09-19-2022 FOLATE 8.40 ng/mL Critically low 8.60-58.90 [facility] Comment on above: Performed By: #### C MP, CMADM #### [facility] [address] [address] [address] Kush Call MAGNESIUMon 09-19-2022 Magnesium [Mass/Vol] 1.9 mg/dL Normal 1.8-2.4 [facility] Comment on above: Performed By: #### C RP, CMP, URIC, MG #### [facility] [address] [place] [address] Dr. Kush Call PROF 14(COMP METB)on 023 Albumin [Mass/Vol] 3.8 g/dL Normal 3.4-5.0 [facility] Comment on above: Performed By: #### C RP, CMP, URIC, MG #### [facility] [address] [place] [address] Dr. Kush Call Albumin/Globulin [Mass ratio] 0.8 {ratio} Normal [facility] Comment on above: Performed By: #### C RP, CMP, URIC, MG #### [facility] [address] [place] [address] Dr. Kush Call ALP [Catalytic activity/Vol] 120 U/L Critically high 46-116 [facility] Comment on above: Performed By: #### C RP, CMP, URIC, MG #### [facility] [address] [place] [address] Dr. Kush Call ALT [Catalytic activity/Vol] 67 U/L Critically high 14-59 [facility] Comment on above: Performed By: #### C RP, CMP, URIC, MG #### [facility] [address] [place] [address] Dr. Kush Call Anion gap [Moles/Vol] 18.9 mmol/L Normal [facility] Comment on above: Performed By: #### C RP, CMP, URIC, MG #### [facility] [address] [place] [address] Dr. Kush Call AST [Catalytic activity/Vol] 68 U/L Critically high 15-37 [facility] Comment on above: Performed By: #### C RP, CMP, URIC, MG #### [facility] [address] [place] [address] Dr. Kush Call Bilirubin [Mass/Vol] 0.9 mg/dL Normal 0.2-1.0 [facility] Comment on above: Performed By: #### C RP, CMP, URIC, MG #### [facility] [address] [place] [address] Dr. Kush Call Calcium [Mass/Vol] 9.8 mg/dL Normal 8.5-10.1 [facility] Comment on above: Performed By: #### C RP, CMP, URIC, MG #### [facility] [address] [address] [address] Kush Call Chloride [Moles/Vol] 102 mmol/L Normal 98-107 [facility] Comment on above: Performed By: #### C RP, CMP, URIC, MG #### [facility] [address] [place] [address] Dr. Kush Call CO2 [Moles/Vol] 20.6 mmol/L Critically low 21.0-32.0 [facility] Comment on above: Performed By: #### C RP, CMP, URIC, MG #### [facility] [address] [place] [address] Dr. Kush Call Creatinine [Mass/Vol] 0.49 mg/dL Critically low 0.55-1.02 [facility] Comment on above: Performed By: #### C RP, CMP, URIC, MG #### [facility] [address] [place] [address] Dr. Kush Call EGFR-AF KYRGYZ >60 Normal >=60 [facility] Comment on above: Performed By: #### C RP, CMP, URIC, MG #### [facility] [address] [place] [address] Dr. Kush Call EGFR-NON AF KYRGYZ >60 Normal >=60 [facility] Comment on above: Performed By: #### C RP, CMP, URIC, MG #### [facility] [address] [place] [address] Dr. Kush Call Globulin (S) [Mass/Vol] 4.6 g/dL Normal [facility] Comment on above: Performed By: #### C RP, CMP, URIC, MG #### [facility] [address] [place] [address] Dr. Kush Call Glucose [Mass/Vol] 174 mg/dL Critically high 74-106 [facility] Comment on above: Performed By: #### C RP, CMP, URIC, MG #### [facility] [address] [place] [address] Dr. Kush Call Potassium [Moles/Vol] 3.5 mmol/L Normal 3.5-5.1 [facility] Comment on above: Performed By: #### C RP, CMP, URIC, MG #### [facility] [address] [place] [address] Dr. Kush Call Protein [Mass/Vol] 8.4 g/dL Critically high 6.4-8.2 [facility] Comment on above: Performed By: #### C RP, CMP, URIC, MG #### [facility] [address] [place] [address] Dr. Kush Call Sodium [Moles/Vol] 138 mmol/L Normal 136-145 [facility] Comment on above: Performed By: #### C RP, CMP, URIC, MG #### [facility] [address] [place] [address] Dr. Kush Call Urea nitrogen [Mass/Vol] 5.0 mg/dL Critically low 7.0-18.0 [facility] Comment on above: Performed By: #### C RP, CMP, URIC, MG #### [facility] [address] [place] [address] Dr. Kush Call Urea nitrogen/Creatinine [Mass ratio] 10.2 mg/mg Normal [facility] Comment on above: Performed By: #### C RP, CMP, URIC, MG #### [facility] [address] [place] [address] Dr. Kush Call URIC ACID SERUMon 09-19-2022 Urate [Mass/Vol] 10.1 mg/dL Critically high 2.6-6.0 [facility] Comment on above: Performed By: #### C RP, CMP, URIC, MG #### [facility] [address] [place] [address] Dr. Kush Call US BREAST RIGHT LIMITEDon US BREAST RIGHT LIMITED Patient: RICA STOUT Exam Date: 09/19/2022 : 1995 Gender:F Ordering : DNAUTA ARAUJO [facility] Admission #: [id number] Family : DR MASSIMO BRIGHT . Order #: [id number] CLICK HERE TO VIEW EXAM RADIOLOGY REPORT [...] Langford MD on 09/19/2022 at 08:59 Normal [facility] CARDIAC LOWELL ADMITon 023 CK [Catalytic activity/Vol] 68 U/L Normal 26-192 [facility] Comment on above: Performed By: #### C IRINA BENOIT #### [facility] [address] [place] [address] Dr. Kush Call CK.MB [Mass/Vol] 141.43 ng/mL Critically high <=3.60 [facility] Comment on above: Performed By: #### C IRINA BENOIT #### [facility] [address] [place] [address] Dr. Kush Call HSTROP <4.0 Normal 4.0-51.3 [facility] Comment on above: Result Comment: CUT- OFF POINTS HAVE BEEN ESTABLISHED BASED ON THE FOURTH UNIVERSAL DEFINITIONS OF MYOCARDIAL INFARCTION. THE UPPER REFERENCE LIMIT (URL) OF TROPONIN, DEFINED THE 99TH PERCENTILE OF cTnI DISTRIBUTION IN A REFERENCE POPULATION, HAS BEEN CONFIRMED THE DECISION THRESHOLD FOR [place] DIAGNOSIS. Performed By: #### C IRINA BENOIT #### [facility] [address] [place] [address] Dr. Kush Call JOANNA 57 ng/mL Normal 9-82 [facility] Comment on above: Performed By: #### C IRINA BENOIT #### [facility] [address] [place] [address] Dr. Kush Call CBC AUTO DIFFon 09-13-2022 BASO # 0.1 103/ul Normal 0.0-0.1 [facility] Comment on above: Performed By: #### C KAYCEE, XAVIERDM #### [facility] [address] [place] [address] Dr. Kush Call Basophils/100 WBC (Bld) 1.4 % Normal 0.2-2.0 [facility] Comment on above: Performed By: #### C KAYCEE, CMADM #### [facility] [address] [place] [address] Dr. Kush Call EO # 0.1 103/ul Normal 0.0-0.7 [facility] Comment on above: Performed By: #### C KAYCEE, IRINA #### [facility] [address] [place] [address] Dr. Kush Call Eosinophils/100 WBC (Bld) 1.3 % Normal 0.9-7.0 [facility] Comment on above: Performed By: #### C XAVIER BENOITDM #### [facility] [address] [place] [address] Dr. Kush Call Erythrocyte distribution width (RBC) [Ratio] 12.7 % Normal 11.0-15.0 [facility] Comment on above: Performed By: #### C IRINA BENOIT #### [facility] [address] [place] [address] Dr. Kush Call Hematocrit (Bld) [Volume fraction] 44.8 % Normal 36.0-48.0 [facility] Comment on above: Performed By: #### C KAYCEE, CMADM #### [facility] [address] [place] [address] Dr. Ksuh Call Hemoglobin (Bld) [Mass/Vol] 15.3 g/dL Normal 12.0-16.0 [facility] Comment on above: Performed By: #### C KAYCEE, CMADM #### [facility] [address] [place] [address] Dr. Kush Call IG # 0.22 10e3/ul Critically high 0.00-0.03 [facility] Comment on above: Performed By: #### C KAYCEE, CMADM #### [facility] [address] [address] [address] Kush Call IG % 2.2 % Critically high 0.0-0.5 [facility] Comment on above: Performed By: #### C KAYCEE, XAVIERDM #### [facility] [address] [place] [address] Dr. Kush Call LYMPH # 2.7 103/ul Normal 1.2-3.8 [facility] Comment on above: Performed By: #### C KAYCEE, XAVIERDM #### [facility] [address] [place] [address] Dr. Kush Call Lymphocytes/100 WBC (Bld) 26.6 % Normal 20.5-60.0 [facility] Comment on above: Performed By: #### C XAVIER BENOITDM #### [facility] [address] [place] [address] Dr. Kush Call MANUAL DIFF REQ NO Normal [facility] Comment on above: Performed By: #### C RIINA BENOIT #### [facility] [address] [place] [address] Dr. Kush Call MCH (RBC) [Entitic mass] 36.4 pg Critically high 26.7-34.0 [facility] Comment on above: Performed By: #### C IRINA BENOIT #### [facility] [address] [place] [address] Dr. Kush Call MCHC (RBC) [Mass/Vol] 34.2 g/dL Normal 29.9-35.2 [facility] Comment on above: Performed By: #### C KAYCEE, XAVIERDM #### [facility] [address] [place] [address] Dr. Kush Call MCV (RBC) [Entitic vol] 106.7 fL Critically high 81.0-99 .0 [facility] Comment on above: Performed By: #### C KAYCEE, XAVIERDM #### [facility] [address] [place] [address] Dr. Kush Call MONO # 0.6 103/ul Normal 0.3-0.8 [facility] Comment on above: Performed By: #### C KAYCEE, CMADM #### [facility] [address] [address] [address] Kush Call Monocytes/100 WBC (Bld) 5.6 % Normal 1.7-12.0 [facility] Comment on above: Performed By: #### C MP, CMADM #### [facility] [address] [address] [address] Kush Call NEUT # 6.4 103/ul Normal 1.4-6.5 [facility] Comment on above: Performed By: #### C KAYCEE, CMADM #### [facility] [address] [address] [address] Kush Call Neutrophils/100 WBC (Bld) 62.9 % Normal 43.0-75.0 [facility] Comment on above: Performed By: #### C KAYCEE, CMADM #### [facility] [address] [place] [address] Dr. Kush Call Platelet mean volume (Bld) [Entitic vol] 9.4 fL Critically low 9.5-13.5 [facility] Comment on above: Performed By: #### C KAYCEE, CMADM #### [facility] [address] [address] [address] Kush Call PLT 454 103/ul Critically high 150-450 [facility] Comment on above: Performed By: #### C KAYCEE, CMADM #### [facility] [address] [place] [address] Dr. Kush Call RBC 4.20 106/ul Normal 4.20-5.40 [facility] Comment on above: Performed By: #### C KAYCEE, CMADM #### [facility] [address] [place] [address] Dr. Kush Call WBC 10.2 103/ul Normal 4.0-11.0 [facility] Comment on above: Performed By: #### C KAYCEE, CMADM #### [facility] [address] [place] [address] HEAD WO CONon [...] No acute intracranial abnormality. Electronically authenticated by: SHENG NORMAN Date: 2022-09-13 12:29 Normal [facility] CTA CHEST WO W CONon 023 [...] by: DAVID TRUONG Date: 2022-09-13 14:46 Normal [facility] D-DIMERon 09-13-2022 D-DIMER 2.94 mg/L FEU Critically high <=0.59 [facility] Comment on above: Performed By: #### C KAYCEE, IRINA #### [facility] [address] [place] [address] Dr. Kush Call D-DIMER COMMENTS SEE BELOW Normal [facility] Comment on above: Result Comment: Incr [...] Performed By: #### C MP, CMADM #### [facility] [address] [address] [address] Kush Call DRUG SCREEN RAPID (URINE)on 09-13-2022 AMP Negative Normal NEGATIVE [facility] Comment on above: Performed By: #### C RP, CMP, URIC, MG #### [facility] [address] [place] [address] Dr. Kush Call BAR Negative Normal NEGATIVE [facility] Comment on above: Performed By: #### C RP, CMP, URIC, MG #### [facility] [address] [address] [address] Kush Call BUP Negative Normal NEGATIVE [facility] Comment on above: Performed By: #### C RP, CMP, URIC, MG #### [facility] [address] [address] [address] Kush Call BZO Negative Normal NEGATIVE [facility] Comment on above: Performed By: #### C RP, CMP, URIC, MG #### [facility] [address] [place] [address] Dr. Kush Call BUTCH Negative Normal NEGATIVE [facility] Comment on above: Performed By: #### C RP, CMP, URIC, MG #### [facility] [address] [place] [address] Dr. Kush Call CUT-OFFS SEE BELOW Normal [facility] Comment on above: Result Comment: AMP [...] #### C RP, CMP, URIC, MG #### [facility] [address] [place] [address] Dr. Kush Call DRUG CUT HEADER DRUG CLASS TEST SYST EM CUT-OFF CONCENTRATIONS ARE FOLLOWS: Normal [facility] Comment on above: Performed By: #### C RP, CMP, URIC, MG #### [facility] [address] [place] [address] Dr. Kush Call mAMP Negative Normal NEGATIVE [facility] Comment on above: Performed By: #### C RP, CMP, URIC, MG #### [facility] [address] [place] [address] Dr. Kush Call MTD Negative Normal NEGATIVE [facility] Comment on above: Performed By: #### C RP, CMP, URIC, MG #### [facility] [address] [place] [address] Dr. Kush Call OPI Negative Normal NEGATIVE [facility] Comment on above: Performed By: #### C RP, CMP, URIC, MG #### [facility] [address] [place] [address] Dr. Kush Call OXY Negative Normal NEGATIVE [facility] Comment on above: Performed By: #### C RP, CMP, URIC, MG #### [facility] [address] [place] [address] Dr. Kush Call PCP Negative Normal NEGATIVE [facility] Comment on above: Performed By: #### C RP, CMP, URIC, MG #### [facility] [address] [place] [address] Dr. Kush Call PPX Negative Normal NEGATIVE [facility] Comment on above: Performed By: #### C RP, CMP, URIC, MG #### [facility] [address] [place] [address] Dr. Kush Call TCA Negative Normal NEGATIVE [facility] Comment on above: Performed By: #### C RP, CMP, URIC, MG #### [facility] [address] [place] [address] Dr. Kush Call THC Negative Normal NEGATIVE [facility] Comment on above: Performed By: #### C RP, CMP, URIC, MG #### [facility] [address] [place] [address] Dr. Kush Call ER URINE PROFILEon 3 Bilirubin Ql (U) Negative Normal NEGATIVE [facility] Comment on above: Performed By: #### C RP, CMP, URIC, MG #### [facility] [address] [place] [address] Dr. Kush Call Clarity (U) CLEAR Normal CLEAR [facility] Comment on above: Performed By: #### C RP, CMP, URIC, MG #### [facility] [address] [place] [address] Dr. Kush Call Color (U) LT. YELLOW Normal YELLOW [facility] Comment on above: Performed By: #### C RP, CMP, URIC, MG #### [facility] [address] [place] [address] Dr. Kush MONTERO A micrscopic examina tion will be performed if indicated. Normal [facility] Comment on above: Performed By: #### C RP, CMP, URIC, MG #### [facility] [address] [place] [address] Dr. Kush Call Glucose Ql (U) Negative Normal NEGATIVE [facility] Comment on above: Performed By: #### C RP, CMP, URIC, MG #### [facility] [address] [place] [address] Dr. Kush Call Hemoglobin Ql (U) Negative Normal NEGATIVE [facility] Comment on above: Performed By: #### C RP, CMP, URIC, MG #### [facility] [address] [place] [address] Dr. Kush Call Ketones Ql (U) Negative Normal NEGATIVE [facility] Comment on above: Performed By: #### C RP, CMP, URIC, MG #### [facility] [address] [place] [address] Dr. Kush Call LEUKOCYTES Negative Normal NEGATIVE [facility] Comment on above: Performed By: #### C RP, CMP, URIC, MG #### [facility] [address] [place] [address] Dr. Kush Call Nitrite Ql (U) Negative Normal NEGATIVE [facility] Comment on above: Performed By: #### C RP, CMP, URIC, MG #### [facility] [address] [place] [address] Dr. Kush Call pH (U) 5.5 [pH] Normal 5-9 [facility] Comment on above: Performed By: #### C RP, CMP, URIC, MG #### [facility] [address] [place] [address] Dr. Kush Call SPEC GRAVITY <=1.005 Abnormal 1.005-<=1.[address] [place] [address] Comment on above: Performed By: #### C RP, CMP, URIC, MG #### [facility] [address] [place] [address] Dr. Kush Call UA PROTEIN Negative Normal NEGATIVE/ TRACE [facility] Comment on above: Performed By: #### C RP, CMP, URIC, MG #### [facility] [address] [place] [address] Dr. Kush Call UR MICRO IND NOT INDICATED Normal [facility] Comment on above: Performed By: #### C RP, CMP, URIC, MG #### [facility] [address] [place] [address] Dr. Kush Call Urobilinogen Qn (U) 0.2 {Kirit'U}/dL Normal 0.2 - 1. 0 [facility] Comment on above: Performed By: #### C RP, CMP, URIC, MG #### [facility] [address] [place] [address] Dr. Kush Call LACTATE/LACTIC ACIDon 2022 Lactate [Moles/Vol] 3.0 mmol/L Critically high 0.4-1.9 [facility] Comment on above: Performed By: #### C RP, CMP, URIC, MG #### [facility] [address] [address] [address] Kush Call Lactate [Moles/Vol] 3.5 mmol/L Critically high 0.4-1.9 [facility] Comment on above: Performed By: #### C RP, CMP, URIC, MG #### [facility] [address] [address] [address] Kush Call PROF 14(COMP METB)on 023 Albumin [Mass/Vol] 3.3 g/dL Critically low 3.4-5.0 [facility] Comment on above: Performed By: #### C KAYCEE, CMADM #### [facility] [address] [place] [address] Dr. Kush Call Albumin/Globulin [Mass ratio] 0.8 {ratio} Normal [facility] Comment on above: Performed By: #### C KAYCEE, CMADM #### [facility] [address] [place] [address] Dr. Kush Call ALP [Catalytic activity/Vol] 111 U/L Normal 46-116 [facility] Comment on above: Performed By: #### C KAYCEE, CMADM #### [facility] [address] [place] [address] Dr. Kush Call ALT [Catalytic activity/Vol] 63 U/L Critically high 14-59 [facility] Comment on above: Performed By: #### C MP, CMADM #### [facility] [address] [place] [address] Dr. Kush Call Anion gap [Moles/Vol] 20.5 mmol/L Normal [facility] Comment on above: Performed By: #### C MP, CMADM #### [facility] [address] [place] [address] Dr. Kush Call AST [Catalytic activity/Vol] 64 U/L Critically high 15-37 [facility] Comment on above: Performed By: #### C MP, CMADM #### [facility] [address] [address] [address] Kush Call Bilirubin [Mass/Vol] 0.5 mg/dL Normal 0.2-1.0 [facility] Comment on above: Performed By: #### C MP, CMADM #### [facility] [address] [place] [address] Dr. Kush Call Calcium [Mass/Vol] 9.4 mg/dL Normal 8.5-10.1 [facility] Comment on above: Performed By: #### C MP, CMADM #### [facility] [address] [place] [address] Dr. Kush Call Chloride [Moles/Vol] 101 mmol/L Normal 98-107 [facility] Comment on above: Performed By: #### C MP, CMADM #### [facility] [address] [place] [address] Dr. Kush Call CO2 [Moles/Vol] 19.8 mmol/L Critically low 21.0-32.0 [facility] Comment on above: Performed By: #### C MP, CMADM #### [facility] [address] [place] [address] Dr. Kush Call Creatinine [Mass/Vol] 0.50 mg/dL Critically low 0.55-1.02 [facility] Comment on above: Performed By: #### C MP, CMADM #### [facility] [address] [place] [address] Dr. Kush Call EGFR-AF KYRGYZ >60 Normal >=60 [facility] Comment on above: Performed By: #### C MP, CMADM #### [facility] [address] [place] [address] Dr. Kush Call EGFR-NON AF KYRGYZ >60 Normal >=60 [facility] Comment on above: Performed By: #### C MP, CMADM #### [facility] [address] [place] [address] Dr. Kush Call Globulin (S) [Mass/Vol] 4.1 g/dL Normal [facility] Comment on above: Performed By: #### C MP, CMADM #### [facility] [address] [address] [address] Kush Call Glucose [Mass/Vol] 112 mg/dL Critically high 74-106 [facility] Comment on above: Performed By: #### C MP, CMADM #### [facility] [address] [address] [address] Kush Call Potassium [Moles/Vol] 3.3 mmol/L Critically low 3.5-5.1 [facility] Comment on above: Performed By: #### C MP, CMADM #### [facility] [address] [address] [address] Kush Call Protein [Mass/Vol] 7.4 g/dL Normal 6.4-8.2 [facility] Comment on above: Performed By: #### C KAYCEE, CMADM #### [facility] [address] [address] [address] Kush Call Sodium [Moles/Vol] 138 mmol/L Normal 136-145 [facility] Comment on above: Performed By: #### C MP, CMADM #### [facility] [address] [address] [address] Kush Call Urea nitrogen [Mass/Vol] 2.0 mg/dL Critically low 7.0-18.0 [facility] Comment on above: Performed By: #### C KAYCEE, CMADM #### [facility] [address] [address] [address] Kush Call Urea nitrogen/Creatinine [Mass ratio] 4.0 mg/mg Normal [facility] Comment on above: Performed By: #### C MP, CMADM #### [facility] [address] [address] [address] Kush Call SED RATE WESTERGRENon 2022 SED RATE 74 mm/hr Critically high <=20 [facility] Comment on above: Performed By: #### T SH #### [facility] [address] [address] [address] Kush Call TSHon 02-23-2023 TSH 2.552 uIU/mL Normal 0.358-3.740 [facility] Comment on above: Performed By: #### T SH #### [facility] [address] [place] [address] Dr. Kush Call VIT B12 AND FOLATEon 023 Cobalamin (Vitamin B12) [Mass/Vol] 700.0 pg/mL Normal 193.0-986.0 [facility] Comment on above: Performed By: #### C RP, CMP, URIC, MG #### [facility] [address] [place] [address] Dr. Kush Call FOLATE 1.60 ng/mL Critically low 8.60-58.90 [facility] Comment on above: Performed By: #### C RP, CMP, URIC, MG #### [facility] [address] [place] [address] Dr. Kush Call AMYLASEon 08-30-2022 Amylase [Catalytic activity/Vol] 28 U/L Normal 25-115 [facility] Comment on above: Performed By: #### C RP, CMP, URIC, MG #### [facility] [address] [place] [address] Dr. Kush Call CBC AUTO DIFFon 08-30-2022 BASO # 0.1 103/ul Normal 0.0-0.1 [facility] Comment on above: Performed By: #### T SH #### [facility] [address] [place] [address] Dr. Kush Call Basophils/100 WBC (Bld) 0.8 % Normal 0.2-2.0 [facility] Comment on above: Performed By: #### T SH #### [facility] [address] [place] [address] Dr. Kush Call EO # 0.0 103/ul Normal 0.0-0.7 [facility] Comment on above: Performed By: #### T SH #### [facility] [address] [place] [address] Dr. Kush Call Eosinophils/100 WBC (Bld) 0.5 % Critically low 0.9-7.0 [facility] Comment on above: Performed By: #### T SH #### [facility] [address] [place] [address] Dr. Kush Call Erythrocyte distribution width (RBC) [Ratio] 12.4 % Normal 11.0-15.0 [facility] Comment on above: Performed By: #### T SH #### [facility] [address] [place] [address] Dr. Kush Call Hematocrit (Bld) [Volume fraction] 39.8 % Normal 36.0-48.0 [facility] Comment on above: Performed By: #### T SH #### [facility] [address] [place] [address] Dr. Kush Call Hemoglobin (Bld) [Mass/Vol] 14.3 g/dL Normal 12.0-16.0 [facility] Comment on above: Performed By: #### T SH #### [facility] [address] [place] [address] Dr. Kush Call IG # 0.03 10e3/ul Normal 0.00-0.03 [facility] Comment on above: Performed By: #### T SH #### [facility] [address] [place] [address] Dr. Kush Call IG % 0.5 % Normal 0.0-0.5 [facility] Comment on above: Performed By: #### T SH #### [facility] [address] [place] [address] Dr. Kush Call LYMPH # 1.2 103/ul Normal 1.2-3.8 [facility] Comment on above: Performed By: #### T SH #### [facility] [address] [place] [address] Dr. Kush Call Lymphocytes/100 WBC (Bld) 18.3 % Critically low 20.5-60.0 [facility] Comment on above: Performed By: #### T SH #### [facility] [address] [place] [address] Dr. Kush Call MANUAL DIFF REQ NO Normal [facility] Comment on above: Performed By: #### T SH #### [facility] [address] [place] [address] Dr. Kush Call MCH (RBC) [Entitic mass] 37.2 pg Critically high 26.7-34.0 [facility] Comment on above: Performed By: #### T SH #### [facility] [address] [place] [address] Dr. Kush Call MCHC (RBC) [Mass/Vol] 35.9 g/dL Critically high 29.9-35.2 [facility] Comment on above: Performed By: #### T SH #### [facility] [address] [place] [address] Dr. Kush Call MCV (RBC) [Entitic vol] 103.6 fL Critically high 81.0-99 .0 [facility] Comment on above: Performed By: #### T SH #### [facility] [address] [place] [address] Dr. Kush Call MONO # 0.4 103/ul Normal 0.3-0.8 [facility] Comment on above: Performed By: #### T SH #### [facility] [address] [place] [address] Dr. Kush Call Monocytes/100 WBC (Bld) 6.1 % Normal 1.7-12.0 [facility] Comment on above: Performed By: #### T SH #### [facility] [address] [place] [address] Dr. Kush Call NEUT # 4.7 103/ul Normal 1.4-6.5 [facility] Comment on above: Performed By: #### T SH #### [facility] [address] [place] [address] Dr. Kush Call Neutrophils/100 WBC (Bld) 73.8 % Normal 43.0-75.0 [facility] Comment on above: Performed By: #### T SH #### [facility] [address] [place] [address] Dr. Kush Call Platelet mean volume (Bld) [Entitic vol] 9.2 fL Critically low 9.5-13.5 [facility] Comment on above: Performed By: #### T SH #### [facility] [address] [place] [address] Dr. Kush Call PLT 288 103/ul Normal 150-450 [facility] Comment on above: Performed By: #### T SH #### [facility] [address] [place] [address] Dr. Kush Call RBC 3.84 106/ul Critically low 4.20-5.40 [facility] Comment on above: Performed By: #### T SH #### [facility] [address] [place] [address] Dr. Kush Call WBC 6.4 103/ul Normal 4.0-11.0 [facility] Comment on above: Performed By: #### T SH #### [facility] [address] [place] [address] Dr. Kush Call ER URINE PROFILEon 3 Bilirubin Ql (U) Negative Normal NEGATIVE [facility] Comment on above: Performed By: #### U MICRO, ERUR #### [facility] [address] [place] [address] Dr. Kush Call Clarity (U) CLEAR Normal CLEAR [facility] Comment on above: Performed By: #### U MICRO, ERUR #### [facility] [address] [place] [address] Dr. Kush Call Color (U) LT. YELLOW Normal YELLOW [facility] Comment on above: Performed By: #### U MICRO, ERUR #### [facility] [address] [place] [address] Dr. Kush Call ERUAHD A micrscopic examina tion will be performed if indicated. Normal [facility] Comment on above: Performed By: #### U MICRO, ERUR #### [facility] [address] [place] [address] Dr. Kush Call Glucose Ql (U) Negative Normal NEGATIVE [facility] Comment on above: Performed By: #### U MICRO, ERUR #### [facility] [address] [place] [address] Dr. Kush Call Hemoglobin Ql (U) Negative Normal NEGATIVE [facility] Comment on above: Performed By: #### U MICRO, ERUR #### [facility] [address] [address] [address] Kush Call Ketones Ql (U) Negative Normal NEGATIVE [facility] Comment on above: Performed By: #### U MICRO, ERUR #### [facility] [address] [place] [address] Dr. Kush Call LEUKOCYTES SMALL Abnormal NEGATIVE [facility] Comment on above: Performed By: #### U MICRO, ERUR #### [facility] [address] [place] [address] Dr. Kush Call Nitrite Ql (U) Negative Normal NEGATIVE [facility] Comment on above: Performed By: #### U MICRO, ERUR #### [facility] [address] [place] [address] Dr. Kush Call pH (U) 7.0 [pH] Normal 5-9 [facility] Comment on above: Performed By: #### U MICRO, ERUR #### [facility] [address] [place] [address] Dr. Kush Call SPEC GRAVITY <=1.005 Abnormal 1.005-<=1.02 5 [facility] Comment on above: Performed By: #### U MICRO, ERUR #### [facility] [address] [place] [address] Dr. Kush Call UA PROTEIN Negative Normal NEGATIVE/ TRACE [facility] Comment on above: Performed By: #### U MICRO, ERUR #### [facility] [address] [address] [address] Kush Call UR MICRO IND INDICATED Normal [facility] Comment on above: Performed By: #### U MICRO, ERUR #### [facility] [address] [place] [address] Dr. Kush Call Urobilinogen Qn (U) 1.0 {Kirit'U}/dL Normal 0.2 - 1. 0 [facility] Comment on above: Performed By: #### U MICRO, ERUR #### [facility] [address] [place] [address] Dr. Kush Call LIPASEon 08-30-2022 Lipase [Catalytic activity/Vol] 40.0 U/L Critically low 73.0-393.0 [facility] Comment on above: Performed By: #### C RP, CMP, URIC, MG #### [facility] [address] [place] [address] Dr. Kush Call PROF 14(COMP METB)on 023 Albumin [Mass/Vol] 3.2 g/dL Critically low 3.4-5.0 [facility] Comment on above: Performed By: #### C RP, CMP, URIC, MG #### [facility] [address] [place] [address] Dr. Kush Call Albumin/Globulin [Mass ratio] 0.9 {ratio} Normal [facility] Comment on above: Performed By: #### C RP, CMP, URIC, MG #### [facility] [address] [place] [address] Dr. Kush Call ALP [Catalytic activity/Vol] 100 U/L Normal 46-116 [facility] Comment on above: Performed By: #### C RP, CMP, URIC, MG #### [facility] [address] [place] [address] Dr. Kush Call ALT [Catalytic activity/Vol] 66 U/L Critically high 14-59 [facility] Comment on above: Performed By: #### C RP, CMP, URIC, MG #### [facility] [address] [address] [address] Kush Call Anion gap [Moles/Vol] 14.6 mmol/L Normal [facility] Comment on above: Performed By: #### C RP, CMP, URIC, MG #### [facility] [address] [place] [address] Dr. Kush Call AST [Catalytic activity/Vol] 120 U/L Critically high 15-37 [facility] Comment on above: Performed By: #### C RP, CMP, URIC, MG #### [facility] [address] [place] [address] Dr. Kush Call Bilirubin [Mass/Vol] 1.1 mg/dL Critically high 0.2-1.0 [facility] Comment on above: Performed By: #### C RP, CMP, URIC, MG #### [facility] [address] [place] [address] Dr. Kush Call Calcium [Mass/Vol] 9.0 mg/dL Normal 8.5-10.1 [facility] Comment on above: Performed By: #### C RP, CMP, URIC, MG #### [facility] [address] [place] [address] Dr. Kush Call Chloride [Moles/Vol] 102 mmol/L Normal 98-107 [facility] Comment on above: Performed By: #### C RP, CMP, URIC, MG #### [facility] [address] [place] [address] Dr. Kush Call CO2 [Moles/Vol] 25.4 mmol/L Normal 21.0-32.0 [facility] Comment on above: Performed By: #### C RP, CMP, URIC, MG #### [facility] [address] [place] [address] Dr. Kush Call Creatinine [Mass/Vol] 0.62 mg/dL Normal 0.55-1.02 [facility] Comment on above: Performed By: #### C RP, CMP, URIC, MG #### [facility] [address] [place] [address] Dr. Kush Call EGFR-AF KYRGYZ >60 Normal >=60 [facility] Comment on above: Performed By: #### C RP, CMP, URIC, MG #### [facility] [address] [place] [address] Dr. Kush Call EGFR-NON AF KYRGYZ >60 Normal >=60 [facility] Comment on above: Performed By: #### C RP, CMP, URIC, MG #### [facility] [address] [place] [address] Dr. Kush Call Globulin (S) [Mass/Vol] 3.5 g/dL Normal [facility] Comment on above: Performed By: #### C RP, CMP, URIC, MG #### [facility] [address] [address] [address] Kush Call Glucose [Mass/Vol] 114 mg/dL Critically high 74-106 [facility] Comment on above: Performed By: #### C RP, CMP, URIC, MG #### [facility] [address] [address] [address] Kush Call Potassium [Moles/Vol] 3.0 mmol/L Critically low 3.5-5.1 [facility] Comment on above: Performed By: #### C RP, CMP, URIC, MG #### [facility] [address] [address] [address] Kush Call Protein [Mass/Vol] 6.7 g/dL Normal 6.4-8.2 [facility] Comment on above: Performed By: #### C RP, CMP, URIC, MG #### [facility] [address] [place] [address] Dr. Kush Call Sodium [Moles/Vol] 139 mmol/L Normal 136-145 [facility] Comment on above: Performed By: #### C RP, CMP, URIC, MG #### [facility] [address] [address] [address] Kush Call Urea nitrogen [Mass/Vol] 3.0 mg/dL Critically low 7.0-18.0 [facility] Comment on above: Performed By: #### C RP, CMP, URIC, MG #### [facility] [address] [address] [address] Kush Call Urea nitrogen/Creatinine [Mass ratio] 4.8 mg/mg Normal [facility] Comment on above: Performed By: #### C RP, CMP, URIC, MG #### [facility] [address] [address] [address] Kush Call URINE MICROSCOPIC ONLYon BACTERIA TRACE Abnormal NONE SEEN [facility] Comment on above: Performed By: #### U MICRO, ERUR #### [facility] [address] [address] [address] Kush Call Bacteria identified Cx Nom (U) NOT INDICATED Normal [facility] Comment on above: Performed By: #### U MICRO, ERUR #### [facility] [address] [place] [address] Dr. Kush Call CAST NONE SEEN Normal NONE SEEN [facility] Comment on above: Performed By: #### U MICRO, ERUR #### [facility] [address] [place] [address] Dr. Kush Call Crystals LM Nom (Urine sed) NONE SEEN Normal NONE SEEN [facility] Comment on above: Performed By: #### U MICRO, ERUR #### [facility] [address] [place] [address] Dr. Kush Call Epithelial cells LM Ql (Urine sed) RARE Normal NONE SEEN /RARE [facility] Comment on above: Performed By: #### U MICRO, ERUR #### [facility] [address] [place] [address] Dr. Kush Call MUCOUS NONE SEEN Normal NONE SEEN [facility] Comment on above: Performed By: #### U MICRO, ERUR #### [facility] [address] [place] [address] Dr. Kush Call RBC 0-2 Normal 0-2 [facility] Comment on above: Performed By: #### U MICRO, ERUR #### [facility] [address] [place] [address] Dr. Kush Call WBC 0-2 Abnormal NONE SEEN [facility] Comment on above: Performed By: #### U MICRO, ERUR #### [facility] [address] [place] [address] Dr. Kush Call CHLAMYDIA/GONOCOCCUS [place] (SW AB/URINE/PAPon 08-25-2022 Chlamydia trachomatis, [place] Negative Normal Negative [facility] Comment on above: Performed By: #### C T/NGNA #### [facility] [address] [place] [address] Dr. Kush Call Neisseria gonorrhoeae, [place] Negative Normal Negative [facility] Comment on above: Performed By: #### C T/NGNA #### [facility] [address] [place] [address] Dr. Kush Call CULTURE URINEon 08-25-2022 CULTURE [...] Trimethoprim/Sulfamethox azole <=20 S F Normal [facility] Comment on above: Performed By: #### C IRINA BENOIT #### [facility] [address] [place] [address] Dr. Kush Call VAGINITIS/VAGINOSIS DNA PROB Wander 08-24-2022 Tiffany species Positive Abnormal Negative [facility] Comment on above: Performed By: #### C IRINA BENOIT #### [facility] [address] [address] [address] Kush Call Gardnerella vaginalis Positive Abnormal Negative [facility] Comment on above: Performed By: #### C IRINA BENOIT #### [facility] [address] [place] [address] Dr. Kush Call Trichomonas vaginalis Negative Normal Negative [facility] Comment on above: Performed By: #### C IRINA BENOIT #### [facility] [address] [address] [address] Kush Call ECHOCARDIO M/2D COMPLETEon 0 11-06-2021 ECHOCARDIO M/2D COMPLETE Patient: RICA STUOT Exam Date: 11/06/2021 : 1995 Gender:F Ordering : KLARISSA CHAMBERS Admission #: [id number] Family : DAUNTA ARAUJO [facility] Order #: [id number] CLICK HERE TO VIEW EXAM ECHOCARDIOGRAM REPORT [...] Wilkinson M.D. on 11/06/2021 at 15:53 Normal [facility] Hepatitis Acute [facility] 11-11 Hep A Ab,IgM Non-Reactive Normal [facility] Comment on above: Performed By: #### L IVP #### [facility] [address] [place] [address] Dr. [place], [place] [phone] Hot End Operator: Karyna Silva MD #### PHEP #### [address] [phone] Hot End Operator: Leonardo Sánchez MD Hep B Core Ab,IgM Non-Reactive Normal [facility] Comment on above: Performed By: #### L IVP #### [facility] [address] [place] [address] Dr. [place], [place] [phone] Hot End Operator: Karyna Silva MD #### PHEP #### [address] [address] Hot End Operator: Leonardo Sánchez MD Hep B Surf Ag Non-Reactive Normal [facility] Comment on above: Performed By: #### L IVP #### [facility] [address] [place] [address] Dr. [place], [place] [phone] Hot End Operator: Karyna Silva MD #### PHEP #### [address] [address] Hot End Operator: Leonardo Sánchez MD Hep C Ab Non-Reactive Normal [facility] Comment on above: Result Comment: The hepatitis [...] PCR. Performed By: #### L IVP #### [address] [place] [address] Hot End Operator: Karyna Silva MD #### PHEP #### [id number] [place], [place] [phone] Hot End Operator: Leonardo Sánchez MD HCG, Quanton 11-10-2020 HCG, Quant <1 Normal <5 [facility] Comment on above: Result Comment: Non-preg premeno <=5 Postmeno <=8 Male <=3 If HCG results do not concur with clinical observations, additional testing to confirm results is recommended. Elevated results not associated with may be found in patients with other diseases such as tumors of the germ cells (testis, ovaries, etc.), bladder, pancreas, stomach, lungs, and liver. Performed By: #### B HCG #### [address] [place] [address] Hot End Operator: Karyna Silva MD HCG, Quantitative, Ordered By: Massimo Bright on 11-10-2020 hCG Quant <1 <5 IU/L [facility] [employer] Phone: Comment on above: Non-preg premeno <=5 Postmeno <=8 Male <=3 If HCG results do not concur with clinical observations, additional testing to confirm results is recommended. Elevated results not associated with may be found in patients with other diseases such as tumors of the germ cells (testis, ovaries, etc.), bladder, pancreas, stomach, lungs, and liver. Hepatic Function PanelOrdere d By: Inocencio Bender on 11-10-2020 Albumin [Mass/Vol] 4.6 g/dL 3.5 - 5.2 g/dL [employer] Phone: Albumin/Globulin [Mass ratio] 1.5 {ratio} [employer] Phone: ALP (Bld) [Catalytic activity/Vol] 95 U/L 35 - 104 U/L [employer] Phone: ALT [Catalytic activity/Vol] 54 U/L High 5 - 33 U/L [employer] Phone: AST [Catalytic activity/Vol] 62 U/L High <32 [employer] Phone: Bilirubin [Mass/Vol] 0.93 mg/dL 0.3 - 1 .2 mg/dL [employer] Phone: Bilirubin, Indirect 0.72 mg/dL 0.00 - 1 .00 mg/dL [employer] Phone: Bilirubin.indirect [Mass/Vol] 0.21 mg/dL <0.31 [employer] Phone: Free PSA/Total PSA [Mass fraction] 7.6 g/dL 6.4 - 8.3 g/dL [employer] Phone: Globulin NOT REPORTED 1.5 - 3.8 g/dL [employer] Phone: Interpretation and review of laboratory results Abnormal [employer] Phone: Hepatitis Panel, AcuteOrdere d By: Inocencio Bender on 11-10-2020 HAV IgM IA Qn (S) Non-Reactive NONREACTIVE [employer] Phone: Hep B Core Ab, IgM Non-Reactive NONREACTIVE [employer] Phone: Hepatitis B Surface Ag Non-Reactive NONREACTIVE [employer] Phone: Hepatitis C Ab Non-Reactive NONREACTIVE [employer] Phone: Comment on above: The hepatitis C [...] 11-10-2020 Albumin [Mass/Vol] 4.6 g/dL Normal 3.5-5.2 [facility] Comment on above: Performed By: #### L IVP #### [facility] [address] [place] [address] Hot End Operator: Karyna Silva MD #### PHEP #### [address] [address] Hot End Operator: Leonardo Sánchez MD Albumin/Glob Ratio 1.5 Normal 1.0-2.5 [facility] Comment on above: Performed By: #### L IVP #### [address] [place] [address] Hot End Operator: Karyna Silva MD #### PHEP #### [address] [address] Hot End Operator: Leonardo Sánchez MD Alkaline Phos 95 U/L Normal 35-104 [facility] Comment on above: Performed By: #### L IVP #### [facility] [address] [place] [address] [place] [address] Hot End Operator: Karyna Silva MD #### PHEP #### [address] [address] Hot End Operator: Leonardo Sánchez MD ALT [Catalytic activity/Vol] 54 U/L High 5-33 [facility] Comment on above: Performed By: #### L IVP #### [facility] [address] [place] [address] [place] [address] Hot End Operator: Karyna Silva MD #### PHEP #### [address] [address] Hot End Operator: Leonardo Sánchez MD AST [Catalytic activity/Vol] 62 U/L High <32 [facility] Comment on above: Performed By: #### L IVP #### [address] [place], [place] [phone] Hot End Operator: Karyna Silva MD #### PHEP #### [address] [place] [address] Hot End Operator: Leonardo Sánchez MD Bilirubin [Mass/Vol] 0.93 mg/dL Normal 0.3-1.2 [facility] Comment on above: Performed By: #### L IVP #### [facility] [address] [place] [address] Dr. [place], [place] [phone] Hot End Operator: Karyna Silva MD #### PHEP #### [address] [address] Hot End Operator: Leonardo Sánchez MD Bilirubin, Indirect 0.72 mg/dL Normal 0.00-1.00 [facility] Comment on above: Performed By: #### L IVP #### [address] [place], [place] 2687183 Hot End Operator: Karyna Silva MD #### PHEP #### [address] [address] Hot End Operator: Leonardo Sánchez MD Bilirubin.indirect [Mass/Vol] 0.21 mg/dL Normal <0.31 [facility] Comment on above: Performed By: #### L IVP #### [address] [place], [place] [phone] Hot End Operator: Karyna Silva MD #### PHEP #### [address] [address] Hot End Operator: Leonardo Sánchez MD Protein [Mass/Vol] 7.6 g/dL Normal 6.4-8.3 [facility] Comment on above: Performed By: #### L IVP #### [address] [place] [phone] Hot End Operator: Karyna Silva MD #### PHEP #### [address] [phone] Hot End Operator: Leonardo Sánchez MD Globulin Fraction NOT REPORTED Normal 1.5-3.8 [facility] Comment on above: Performed By: #### L IVP #### [address] [place] [phone] Hot End Operator: Karyna Silva MD #### PHEP #### [address] [address] Hot End Operator: Leonardo Sánchez MD CBCon 04-06-2020 Erythrocyte distribution width (RBC) [Ratio] 11.8 % Normal 11.8-14.4 [facility] Comment on above: Performed By: #### C P, CBC #### [address] [place] [phone] Hot End Operator: Amilcar Wing MD #### HIVCMB #### [address] [address] Hot End Operator: Leonardo Sánchez MD Hematocrit (Bld) [Volume fraction] 43.4 % Normal 36.3-47.1 [facility] Comment on above: Performed By: #### C P, CBC #### [address] [place] [phone] Hot End Operator: Amilcar Wing MD #### HIVCMB #### [address] [address] Hot End Operator: Leonardo Sánchez MD Hemoglobin (Bld) [Mass/Vol] 14.4 g/dL Normal 11.9-15.1 [facility] Comment on above: Performed By: #### C P, CBC #### [address] [place] [phone] Hot End Operator: Amilcar Wing MD #### HIVCMB #### [address] [place], [place] [phone] Hot End Operator: Leonardo Sánchez MD MCH (RBC) [Entitic mass] 33.0 pg Normal 25.2-33.5 [facility] Comment on above: Performed By: #### C P, CBC #### [address] [place] [phone] Hot End Operator: Amilcar Wing MD #### HIVCMB #### [address] [phone] Hot End Operator: Leonardo Sánchez MD MCHC (RBC) [Mass/Vol] 33.2 g/dL Normal 28.4-34.8 [facility] Comment on above: Performed By: #### C P, CBC #### [address] [place] [phone] Hot End Operator: Amilcar Wing MD #### HIVCMB #### [address] [place], [place] [phone] Hot End Operator: Leonardo Sánchez MD MCV (RBC) [Entitic vol] 99.3 fL Normal 82.6-102.9 [facility] Comment on above: Performed By: #### C P, CBC #### [address] [place] [phone] Hot End Operator: Amilcar Wing MD #### HIVCMB #### [address] [address] Hot End Operator: Leonardo Sánchez MD NRBC Automated 0.0 per 100 WBC Normal 0.0 [facility] Comment on above: Performed By: #### C P, CBC #### [address] [place] [phone] Hot End Operator: Amilcar Wing MD #### HIVCMB #### [address] [address] [place], [place] [phone] Hot End Operator: Leonardo Sánchez MD Platelet mean volume (Bld) [Entitic vol] 9.4 fL Normal 8.1-13.5 [facility] Comment on above: Performed By: #### C P, CBC #### [facility] [address] [place], [place] [phone] Hot End Operator: Amilcar Wing MD #### HIVCMB #### [facility] [address] [place], [place] [phone] Hot End Operator: Leonardo Sánchez MD Platelets (Bld) [#/Vol] 238 10*3/uL Normal 138-453 [facility] Comment on above: Performed By: #### C P, CBC #### [facility] [address] [place] [address] Hot End Operator: Amilcar Wing MD #### HIVCMB #### [facility] [address] [place], [place] [phone] Hot End Operator: Leonardo Sánchez MD RBC (Bld) [#/Vol] 4.37 10*6/uL Normal 3.95-5.11 [facility] Comment on above: Performed By: #### C P, CBC #### [facility] [address] [place] [address] Hot End Operator: Amilcar Wing MD #### HIVCMB #### [facility] [address] [place], [place] [phone] Hot End Operator: Leonardo Sánchez MD WBC (Bld) [#/Vol] 7.5 10*3/uL Normal 3.5-11.3 [facility] Comment on above: Performed By: #### C P, CBC #### [facility] [address] [place] [address] Hot End Operator: Amilcar Wing MD #### HIVCMB #### [address] [address] [place] [address] Hot End Operator: Leonardo Sánchez MD Erythrocyte distribution width (RBC) [Ratio] 11.8 % 11.8 - 14.4 % [place] Hematocrit (Bld) [Volume fraction] 43.4 % 36.3 - 47.1 % [place] Hemoglobin (Bld) [Mass/Vol] 14.4 g/dL 11.9 - 15.1 g/dL [place] MCH (RBC) [Entitic mass] 33.0 pg 25.2 - 33.5 pg [place] MCHC (RBC) [Mass/Vol] 33.2 g/dL 28.4 - 34.8 g/dL [place] MCV (RBC) [Entitic vol] 99.3 fL 82.6 - 102.9 fL [place] Platelet mean volume (Bld) [Entitic vol] 9.4 fL 8.1 - 13.5 fL [place] Platelets (Bld) [#/Vol] 238 10*3/uL [place] RBC (Bld) [#/Vol] 4.37 10*6/uL 3.95 - 5.1 1 m/uL [place] WBC (Bld) [#/Vol] 7.5 10*3/uL [place] WBC (Bld) [#/Vol] 0.0 10*3/uL 0.0 per 10 0 WBC [place] Comp Metabolic Profon 2019 (cont.) Normal [facility] Comment on above: Result Comment: Aver age GFR for 20-29 years old: 116 mL/min/1.73sq m Chronic Kidney Disease: <60 mL/min/1.73sq m Kidney failure: <15 mL/min/1.73sq m eGFR calculated using average adult body mass. Additional eGFR calculator available at: http://www.Stalkthis/multiple_crcl_2011.htm Performed By: #### C P, CBC #### [facility] [address] [place] [phone] Hot End Operator: Amilcar Wing MD #### HIVCMB #### [address] [address] Hot End Operator: Leonardo Sánchez MD Albumin [Mass/Vol] 4.3 g/dL Normal 3.5-5.2 [facility] Comment on above: Performed By: #### C P, CBC #### [facility] [address] [place] [phone] Hot End Operator: Amilcar Wing MD #### HIVCMB #### [address] [address] Hot End Operator: Leonardo Sánchez MD Albumin/Glob Ratio 1.5 Normal 1.0-2.5 [facility] Comment on above: Performed By: #### C P, CBC #### [address] [place] [phone] Hot End Operator: Amilcar Wing MD #### HIVCMB #### [address] [address] Hot End Operator: Leonardo Sánchez MD Alkaline Phos 68 U/L Normal 35-104 [facility] Comment on above: Performed By: #### C P, CBC #### [address] [place] [phone] Hot End Operator: Amilcar Wing MD #### HIVCMB #### [address] [address] Hot End Operator: Leonardo Sánchez MD ALT [Catalytic activity/Vol] 48 U/L High 5-33 [facility] Comment on above: Performed By: #### C P, CBC #### [address] [place] [address] Hot End Operator: Amilcar Wing MD #### HIVCMB #### [address] [address] Hot End Operator: Leonardo Sánchez MD Anion gap [Moles/Vol] 10 mmol/L Normal 9-17 [facility] Comment on above: Performed By: #### C P, CBC #### [facility] [address] [place], [place] [phone] Hot End Operator: Amilcar Wing MD #### HIVCMB #### [address] [address] Hot End Operator: Leonardo Sánchez MD AST [Catalytic activity/Vol] 30 U/L Normal <32 [facility] Comment on above: Performed By: #### C P, CBC #### [address] [place], [place] [phone] Hot End Operator: Amilcar Wing MD #### HIVCMB #### [address] [address] Hot End Operator: Leonardo Sánchez MD Bilirubin [Mass/Vol] 0.89 mg/dL Normal 0.3-1.2 [facility] Comment on above: Performed By: #### C P, CBC #### [address] [place], [place] [phone] Hot End Operator: Amilcar Wing MD #### HIVCMB #### [address] [address] Hot End Operator: Leonardo Sánchez MD BUN/CRE Ratio 10 Normal 9-20 [facility] Comment on above: Performed By: #### C P, CBC #### [facility] [address] [place], [place] [phone] Hot End Operator: Amilcar Wing MD #### HIVCMB #### [address] [address] Hot End Operator: Leonardo Sánchez MD Calcium [Mass/Vol] 9.5 mg/dL Normal 8.6-10.4 [facility] Comment on above: Performed By: #### C P, CBC #### [facility] [address] [place] [address] Hot End Operator: Amilcar Wing MD #### HIVCMB #### [address] [phone] Hot End Operator: Leonardo Sánchez MD Chloride [Moles/Vol] 103 mmol/L Normal 98-107 [facility] Comment on above: Performed By: #### C P, CBC #### [facility] [address] [place] [phone] Hot End Operator: Amilcar Wing MD #### HIVCMB #### [address] [address] Hot End Operator: Leonardo Sánchez MD CO2 [Moles/Vol] 22 mmol/L Normal 20-31 [facility] Comment on above: Performed By: #### C P, CBC #### [facility] [address] [place], [facility]83 Hot End Operator: Amilcar Wing MD #### HIVCMB #### [address] [address] Hot End Operator: Leonardo Sánchez MD Creatinine [Mass/Vol] 0.69 mg/dL Normal 0.50-0.90 [facility] Comment on above: Performed By: #### C P, CBC #### [facility] [address] [place], [place] 7993683 Hot End Operator: Amilcar Wing MD #### HIVCMB #### [address] [address] Hot End Operator: Leonardo Sánchez MD GFR, Amer >60 Normal >60 [facility] Comment on above: Performed By: #### C P, CBC #### [address] [place], [place] [phone] Hot End Operator: Amilcar Wing MD #### HIVCMB #### [address] [place], [place] 9226208 Hot End Operator: Leonardo Sánchez MD GFR,non Amer >60 Normal >60 [facility] Comment on above: Performed By: #### C P, CBC #### [facility] [address] [place] [address] Dr. [place], [place] [phone] Hot End Operator: Amilcar Wing MD #### HIVCMB #### [address] [address] Hot End Operator: Leonardo Sánchez MD Glucose [Mass/Vol] 106 mg/dL High 70-99 [facility] Comment on above: Performed By: #### C P, CBC #### [address] [place] [phone] Hot End Operator: Amilcar Wing MD #### HIVCMB #### [address] [address] Hot End Operator: Leonardo Sánchez MD Potassium [Moles/Vol] 4.3 mmol/L Normal 3.7-5.3 [facility] Comment on above: Performed By: #### C P, CBC #### [address] [place], [place] [phone] Hot End Operator: Amilcar Wing MD #### HIVCMB #### [address] [address] Hot End Operator: Leonardo Sánchez MD Protein [Mass/Vol] 7.1 g/dL Normal 6.4-8.3 [facility] Comment on above: Performed By: #### C P, CBC #### [address] [place], [place] [phone] Hot End Operator: Amilcar Wing MD #### HIVCMB #### [facility] [address] [place] [address] Hot End Operator: Leonardo Sánchez MD Sodium [Moles/Vol] 135 mmol/L Normal 135-144 [facility] Comment on above: Performed By: #### C P, CBC #### [facility] [address] [place] [address] Dr. [place], [place] [phone] Hot End Operator: Amilcar Wing MD #### HIVCMB #### [address] [address] Hot End Operator: Leonardo Sánchez MD Staging: Normal [facility] Comment on above: Result Comment: Stag e 1: Some kidney damage normal GFR Stage 2: Mild kidney damage GFR 60-89 Stage 3: Moderate kidney damage GFR 30-59 Stage 4: Severe kidney damage GFR 15-29 Stage 5: Severe kidney damage GFR <15 ESRD - chronic treatment by dialysis or transplant Performed By: #### C P, CBC #### [address] [place], [place] 837[address]83 Hot End Operator: Amilcar Wing MD #### HIVCMB #### [address] [address] Hot End Operator: Leonardo Sánchez MD Urea nitrogen [Mass/Vol] 7 mg/dL Normal 6-20 [facility] Comment on above: Performed By: #### C P, CBC #### [address] [place], [place] [phone] Hot End Operator: Amilcar Wing MD #### HIVCMB #### [address] [address] Hot End Operator: Leonardo Sánchez MD Comprehensive Metabolic Pane [facility] 04-06-2020 Albumin [Mass/Vol] 4.3 g/dL 3.5 - 5.2 g/dL [place] Albumin/Globulin [Mass ratio] 1.5 {ratio} [place] ALP [Catalytic activity/Vol] 68 U/L 35 - 104 U/L [place] ALT [Catalytic activity/Vol] 48 U/L High 5 - 33 U/L [place] Anion gap [Moles/Vol] 10 mmol/L 9 - 17 mmol/L [place] AST [Catalytic activity/Vol] 30 U/L <32 [place] Bilirubin Ql (U) 0.89 mg/dL 0.3 - 1.2 mg/dL [place] Bun/Cre Ratio 10 [place] Calcium [Mass/Vol] 9.5 mg/dL 8.6 - 10. 4 mg/dL [place] Chloride [Moles/Vol] 103 mmol/L 98 - 10 7 mmol/L [place] CO2 [Moles/Vol] 22 mmol/L 20 - 31 mmol/L [place] Creatinine [Mass/Vol] 0.69 mg/dL 0.5 - 0.9 mg/dL [place] GFR >60 >60 mL/min [place] GFR Non- >60 >60 mL/min [place] Glucose [Mass/Vol] 106 mg/dL High 70 - 99 mg/dL [place] Interpretation and review of laboratory results Abnormal [place] Potassium [Moles/Vol] 4.3 mmol/L 3.7 - 5.3 mmol/L [place] Protein [Mass/Vol] 7.1 g/dL 6.4 - 8.3 g/dL [place] Sodium [Moles/Vol] 135 mmol/L 135 - 144 mmol/L [place] Urea nitrogen [Mass/Vol] 7 mg/dL 6 - 20 mg/dL [place] HIV Ag/Abon 04-06-2020 HIV Ag/Ab Non-Reactive Normal NR [facility] Comment on above: Result Comment: No l aboratory evidence of HIV infection. If acute HIV infection is suspected, consider testing for HIV-1 RNA. Performed By: #### C P, CBC #### [facility] [address] [place] [address] Hot End Operator: Amilcar Wing MD #### HIVCMB #### [facility] [address] [place] [address] Hot End Operator: Leonardo Sánchez MD HIV Screenon 04-06-2020 HIV Ag/Ab NONREACTIVE NONREACTIVE [place] Comment on above: No laboratory eviden ce of HIV infection. If acute HIV infection is suspected, consider testing for HIV-1 RNA. Metabolic Panelon 04-06-2020 GFR/1.73 sq M predicted among non-blacks MDRD (S/P/Bld) [Vol rate/Area] [place] Comment on above: Stage 1: Some [...] body mass. Additional eGFR calculator available at: http://www.Stalkthis/multiple_crcl_2012.htm Vital Signs Date Time Vital Sign Value Performing Clinician Oseii alpesh 11-13-2023 09:48-0400 Body temperature 97.2 [degF] [employer]-C Danuta Araujo Work Phone: [facility] 11-13-2023 09:48-0400 Body weight 71.66 kg [employer] FITTER-Mikel Araujo Work Phone: [facility] 11-13-2023 09:48-0400 Diastolic blood pressure 64 mm[Hg] [employer] FITTER-Mikel Araujo Work Phone: [facility] 11-13-2023 09:48-0400 Heart rate 99 /min [employer]TER-Mikel Araujo Work Phone: [facility] 11-13-2023 09:48-0400 Respiratory rate 16 /min [employer]C Danuta Swati Work Phone: [facility] 11-13-2023 09:48-0400 SaO2% (BldA) [Mass fraction] 99 % [employer]C Danuta Swati Work Phone: [facility] 11-13-2023 09:48-0400 Systolic blood pressure 105 mm[Hg] [employer]-C Danuta Swati Work Phone: [facility] 07-03-2023 09:02-0500 Body temperature 97.1 [degF] [employer]-C Danuta Swati Work Phone: [facility] 07-03-2023 09:02-0500 Body weight 63.04 kg [employer]-C Danuta Swati Work Phone: [facility] 07-03-2023 09:02-0500 Diastolic blood pressure 81 mm[Hg] [employer]C Danuta Swati Work Phone: [facility] 07-03-2023 09:02-0500 Heart rate 111 /min [employer]C Danuta Swati Work Phone: [facility] 07-03-2023 09:02-0500 Respiratory rate 16 /min [employer]C Danuta Swati Work Phone: [facility] 07-03-2023 09:02-0500 SaO2% (BldA) [Mass fraction] 99 % [employer]C Danuta Swati Work Phone: [facility] 07-03-2023 09:02-0500 Systolic blood pressure 120 mm[Hg] [employer]-C Danuta Swati Work Phone: [facility] 06-12-2023 10:40-0500 Diastolic blood pressure 79 mm[Hg] [employer]-C Danuta Swati Work Phone: [facility] 06-12-2023 10:40-0500 Heart rate 102 /min [employer]C Danuta Swati Work Phone: [facility] 06-12-2023 10:40-0500 Respiratory rate 20 /min [employer]C Danuta Swati Work Phone: [facility] 06-12-2023 10:40-0500 SaO2% (BldA) [Mass fraction] 98 % [employer]C Danuta Swati Work Phone: [facility] 06-12-2023 10:40-0500 Systolic blood pressure 116 mm[Hg] [employer]-C Danuta Swati Work Phone: [facility] 06-12-2023 09:21-0500 Body height 162.56 cm [employer]-C Danuta Swati Work Phone: [facility] 06-12-2023 09:21-0500 Body temperature 98.7 [degF] [employer]C Danuta Swati Work Phone: [facility] 06-12-2023 09:21-0500 Body weight 60.32 kg [employer]TER-C Danutagary Reedmer Work Phone: [facility] 05-30-2023 14:24-0500 Body temperature 98.1 [degF] [employer]TER-C Danutagary Reedmer Work Phone: [facility] 05-30-2023 14:24-0500 Body weight 61.91 kg [employer]TER-C Danutagary Reedmer Work Phone: [facility] 05-30-2023 14:24-0500 Diastolic blood pressure 80 mm[Hg] [employer]-C Danuta Swati Work Phone: [facility] 05-30-2023 14:24-0500 Heart rate 121 /min [employer]C Danuta Swati Work Phone: [facility] 05-30-2023 14:24-0500 Respiratory rate 20 /min [employer]C Danuta Swati Work Phone: [facility] 05-30-2023 14:24-0500 SaO2% (BldA) [Mass fraction] 100 % [employer]C Danuta Swati Work Phone: [facility] 05-30-2023 14:24-0500 Systolic blood pressure 116 mm[Hg] [employer]TER-C Danutagary Araujo Work Phone: [facility] 05-30-2023 14:11-0500 Body height 162.56 cm [employer]-C Danutagary Araujo Work Phone: [facility] 05-23-2023 14:08-0400 Body height 162.6 cm Arsh Orozco MD Work Phone: [facility] 05-23-2023 14:08-0400 Body weight 61.24 kg Arsh Orozco MD Work Phone: [facility] 05-23-2023 14:08-0400 Diastolic blood pressure 72 mm[Hg] Arsh Orozco MD Work Phone: [facility] 05-23-2023 14:08-0400 Heart rate 104 /min Arsh Orozco MD Work Phone: [facility] 05-23-2023 14:08-0400 Respiratory rate 16 /min Arsh Orozco MD Work Phone: [facility] 05-23-2023 14:08-0400 SaO2% (BldA) [Mass fraction] 100 % Arsh Orozco MD Work Phone: [facility] 05-23-2023 14:08-0400 Systolic blood pressure 105 mm[Hg] Arsh Orozco MD Work Phone: [facility] 04-03-2023 06:41-0400 Body temperature 98.4 [degF] [employer]-C Danuta Araujo Work Phone: [facility] 04-03-2023 06:41-0400 Diastolic blood pressure 67 mm[Hg] [employer]TER-C Danutagary Araujo Work Phone: [facility] 04-03-2023 06:41-0400 Heart rate 107 /min [employer]C Danuta Araujo Work Phone: [facility] 04-03-2023 06:41-0400 Respiratory rate 16 /min [employer]-C Danuta Swati Work Phone: [facility] 04-03-2023 06:41-0400 SaO2% (BldA) [Mass fraction] 98 % [employer]-C Danuta Swati Work Phone: [facility] 04-03-2023 06:41-0400 Systolic blood pressure 108 mm[Hg] [employer]C Danuta Swati Work Phone: [facility] 04-02-2023 12:51-0400 Body height 162.56 cm [employer]-C Danuta Swati Work Phone: [facility] 03-31-2023 04:20-0400 Body weight 60.9 kg [employer]C Danuta Swati Work Phone: [facility] 03-27-2023 11:48-0400 Body temperature 97.8 [degF] [employer]-C Danuta Swati Work Phone: [facility] 03-27-2023 11:48-0400 Diastolic blood pressure 92 mm[Hg] [employer]C Danuta Swati Work Phone: [facility] 03-27-2023 11:48-0400 Heart rate 84 /min [employer] Danuta Swati Work Phone: [facility] 03-27-2023 11:48-0400 Respiratory rate 13 /min [employer]C Danuta Swati Work Phone: [facility] 03-27-2023 11:48-0400 SaO2% (BldA) [Mass fraction] 100 % [employer]-C Danuta Swati Work Phone: [facility] 03-27-2023 11:48-0400 Systolic blood pressure 132 mm[Hg] [employer]C Danuta Swati Work Phone: [facility] 03-27-2023 06:00-0400 Body weight 59.9 kg [employer]-C Danuta Swati Work Phone: [facility] 03-22-2023 11:40-0400 Body height 162.56 cm FIRE SPRINK[employer]TER-C Danutagary Reedmer Work Phone: [facility] 03-22-2023 01:40-0400 Body height 162.56 cm [employer]C Danuta Swati Work Phone: [facility] 03-22-2023 01:40-0400 Body temperature 98.1 [degF] [employer]-C Danutagary Reedmer Work Phone: [facility] 03-22-2023 01:40-0400 Body weight 64.4 kg FI[employer] SPRINKL[employer]-C Danutagary Reedmer Work Phone: [facility] 03-22-2023 01:40-0400 Diastolic blood pressure 75 mm[Hg] [employer]-C Danutagary Reedmer Work Phone: [facility] 03-22-2023 01:40-0400 Heart rate 98 /min FI[employer] SPR[employer]TER-C Danutagary Araujo Work Phone: [facility] 03-22-2023 01:40-0400 Respiratory rate 13 /min [employer]-C Danutagary Reedmer Work Phone: [facility] 03-22-2023 01:40-0400 SaO2% (BldA) [Mass fraction] 100 % [employer]-C Danutagary Araujo Work Phone: [facility] 03-22-2023 01:40-0400 Systolic blood pressure 123 mm[Hg] [employer] SPR[employer]TER-C Danutagary Araujo Work Phone: [facility] Encounters Encounter Date Encounter Type Care Provider Facility Start: 12-11-2023 End: 12-11-2023 Patient encounter procedure FIRE SPRINKL[employer] FITTER-C Danutagary Araujo Work Phone: [facility] [address] Work Phone: Start: 12-11-2023 End: 12-11-2023 ambulatory [employer]TER-C Danutagary Araujo Work Phone: [facility] Work Phone: Start: 11-13-2023 End: 11-13-2023 ambulatory [employer]TER-C Dnauta Diana Swati Work Phone: [facility] Work Phone: Start: 11-13-2023 End: 11-13-2023 Patient encounter procedure FIRE SPRINKL[employer]TER-C Danuta Swati Work Phone: [facility] Work Phone: Start: 11-13-2023 Registered Recurring [employer]INKLER FITTER-C Isidra Harper Work Phone: [facility] Work Phone: Start: 11-13-2023 ambulatory Keshav Arrington Facility:[facility] Start: 09-05-2023 End: 09-06-2023 ambulatory DANUTA ARAUJO Facility:[facility] Start: 08-08-2023 End: 08-08-2023 ambulatory JOEL NOE Facility:[facility] Start: 08-01-2023 End: 08-01-2023 ambulatory [facility] Start: 07-09-2023 End: 07-09-2023 ambulatory [facility] Start: 07-03-2023 End: 07-03-2023 ambulatory [employer]TER-C Danuta Araujo Work Phone: [facility] Work Phone: Start: 07-03-2023 End: 07-03-2023 Registered Recurring [employer]TER-C Danuta Swati Work Phone: [facility] Work Phone: Start: 06-12-2023 End: 06-12-2023 Admission to same day surgery center [employer]C Danuta Araujo Work Phone: [facility] [place] Work Phone: Start: 06-12-2023 End: 06-12-2023 ambulatory [employer]TER-C Danuta Araujo Work Phone: [facility] Work Phone: Start: 06-10-2023 End: 06-10-2023 ambulatory [facility] Start: 05-31-2023 ambulatory Jeannie brantley FRONT OFFICE MANAGER.DIRECTOR OF CONSULTING SERVICES Work Phone: Gastroenterology Comment on above: [facility] Start: 05-30-2023 End: 05-30-2023 ambulatory FI[employer]TER-C Danuta Gainese Swati Work Phone: [facility] Work Phone: Start: 05-30-2023 End: 05-30-2023 Registered Recurring [employer]INKL[employer]TER-C Danuta Swati Work Phone: [facility] Work Phone: Start: 05-23-2023 End: 05-23-2023 ambulatory ARSH OROZCO Facility:[facility] Start: 05-23-2023 End: 05-23-2023 Patient encounter procedure Arsh Orozco MD Work Phone: Neurology Comment on above: Burning sensation (P rimary Dx); Disturbance of skin sensation Start: 05-14-2023 End: 05-14-2023 ambulatory JEANNIE JARVIS Facility:[facility] Start: 05-14-2023 End: 05-14-2023 ambulatory Jeannie Jarvis FRONT OFFICE MANAGER.DIRECTOR OF CONSULTING SERVICES Work Phone: Gastroenterology Comment on above: Advanced hepatic fib rosis (Primary Dx) Start: 05-14-2023 End: 05-14-2023 Telemedicine consultation with patient Jeannie Jarvis FRONT OFFICE MANAGER.DIRECTOR OF CONSULTING SERVICES Work Phone: [facility] Start: 05-08-2023 End: 05-08-2023 ambulatory [facility] Start: 05-06-2023 End: 05-07-2023 ambulatory Zane Ortez MD Facility:[facility] Start: 04-17-2023 End: 04-18-2023 ambulatory HAVEN NIÑO CNP Facility:[facility] Start: 04-12-2023 End: 04-13-2023 ambulatory JEANNIE JARVIS Facility:[facility] Start: 04-11-2023 Telephone encounter Mary Cagle (Pss) Gastroenterology Comment on above: Appointment Start: 03-27-2023 End: 04-03-2023 Evaluation and management of inpatient [employer]TER-C Danuta Swati Work Phone: [facility] Work Phone: Start: 03-22-2023 End: 03-23-2023 ambulatory Sheng Mcdonald Facility:[facility] Start: 03-22-2023 End: 03-22-2023 Patient encounter procedure Sheng Mcdonald [facility] Start: 03-22-2023 End: 03-27-2023 Evaluation and management of inpatient FI[employer]TER-C Danuta Swati Work Phone: [facility] Work Phone: Start: 01-28-2023 Emergency department patient visit Facility:[facility] Start: 10-18-2022 End: 10-19-2022 ambulatory DANUTA SWATI Facility:[facility] Start: 10-15-2022 ambulatory DANUTA SWATI Facility: [facility] Start: 09-27-2022 End: 09-27-2022 ambulatory DANUTA SWATI Facility:[facility] Start: 09-20-2022 End: 09-21-2022 ambulatory DANUTA SWATI Facility:[facility] Start: 09-19-2022 End: 09-20-2022 ambulatory DANUTA SWATI Facility:[facility] Start: 09-13-2022 End: 09-13-2022 ambulatory DANUTA SWATI Facility:[facility] Start: 08-30-2022 End: 08-30-2022 ambulatory DANUTA SWATI Facility:[facility] Start: 08-22-2022 End: 08-22-2022 ambulatory DAVE CACERES . Facility:[facility] Start: 06-05-2022 End: 06-05-[address] DAVE Ortiz Facility:[facility] Start: 11-06-2021 End: 11-07-2021 ambulatory KLARISSA CHAMBERS Facility:[facility] Start: 11-10-2020 End: 11-11-2020 ambulatory MASSIMO Batres [facility] Start: 11-10-2020 End: 11-10-2020 Subsequent hospital visit by physician Haven Niño FRONT OFFICE MANAGER - DIRECTOR OF CONSULTING SERVICES Work Phone: [facility] Start: 04-06-2020 End: 04-07-2020 ambulatory INOCENCIO Batres [facility] Start: 04-06-2020 End: 04-06-2020 Subsequent hospital visit by physician Haven Niño [facility] Laboratory Procedures Date Procedure Procedure Detail Performing Clinician Start: 06-12-2023 Bone marrow sampling [employer]TER -C Danutagary Araujo Work Phone: Start: 04-01-2023 MRI of cervical spin e with contrast FI[employer]INKL[employer] FITTER-C Danutagary Reedmer Work Phone: Start: 04-01-2023 Duplex scan of lower limb veins [employer]INK[employer]TER-C Danutagary Araujo Work Phone: Start: 03-23-2023 Ultrasonography of abdomen [employer]-C Danuta Swati Work Phone: Start: 03-22-2023 XR pre/post mri xray [employer]TER -C Danutagary Araujo Work Phone: Start: 03-22-2023 MRI of lumbar spine with contrast [employer]-C Danuta Swati Work Phone: Start: 03-22-2023 MRI of head [employer]INK[employer]TER-C Pamel a Swati Work Phone: Start: 03-21-2023 CT of head without contrast [employer]INK[employer]TER-C Danuta Swati Work Phone: Start: 03-21-2023 Plain chest X-ray [employer]-C Danuta Swati Work Phone: Start: 03-21-2023 Aerobic microbial culture [employer]-C Danuta Swati Work Phone: Start: 03-21-2023 Anaerobic microbial culture [employer]-C Danuta Swati Work Phone: Start: 03-21-2023 Blood culture for ba cteria, including anaerobic screen [employer]-C Danuta Swati Work Phone: Start: 03-21-2023 CSF (PCR) FI[employer]INK[employer] FITTER-Mikel Araujo Work Phone: Start: 03-21-2023 Investigation of tra nsfusion reaction FIRE SPRINKLER FITTER-Mikel Araujo Work Phone: Start: 03-21-2023 Urine culture FIRE [employer]INKL[employer] FITTER-Mikel Harper Work Phone: Start: 11-10-2020 Gonadotropin chorion ic quantitative Massimo Amilcar Bright MD Work Phone: Start: 11-10-2020 Hepatic function panel Inocencio Bender FRONT OFFICE MANAGER - DIRECTOR OF CONSULTING SERVICES Work Phone: Start: 04-06-2020 Antibody hiv-1&hiv-2 single result INOCENCIO BENDER Start: 04-06-2020 Blood count complete automated INOCENCIO BENDER Start: 04-06-2020 Antibody hiv-1&hiv-2 single result Inocencio Bender Work Phone: Start: 04-06-2020 Blood count complete automated Inocencio Bender Work Phone: Start: 04-06-2020 Comprehensive metabo lic panel Inocencio Bender Work Phone: Plan of Treatment Date Care Activity Detail Author Start: 06-05-2032 Urine microalbumin profile DTaP,Tdap,Td Vaccine (8 - Td or Tdap) [facility] Start: 12-11-2023 Hemolytic complement CH50 level [facility] Start: 12-11-2023 [facility] Start: 11-13-2023 End: 02-12-2024 CBC W Auto Differential panel - Blood CBC + DIFF Lab Routine Advanced hepatic fibrosis Expected: 11/13/2023 (Approximate), Expires: 02/12/2024 [facility] Work Phone: Comment on above: Expected: 11/13/2023 (Approximate), Expires: 02/12/2024 Start: 11-13-2023 End: 02-12-2024 Comprehensive metabolic 2000 panel - Serum or Plasma [facility] Work Phone: Comment on above: Expected: 11/13/2023 (Approximate), Expires: 02/12/2024 Start: 11-13-2023 End: 02-12-2024 PT panel - Platelet poor plasma by Coagulation assay PROTHROMBIN TIME/PT Lab Routine Advanced hepatic fibrosis Expected: 11/13/2023 (Approximate), Expires: 02/12/2024 [facility] Work Phone: Comment on above: Expected: 11/13/2023 (Approximate), Expires: 02/12/2024 Start: 06-12-2023 End: 06-12-2023 [facility] Start: 06-12-2023 Bone marrow sampling [facility] Start: 05-30-2023 Angiotensin converti ng enzyme [Enzymatic activity/volume] in Serum or Plasma [facility] Start: 05-30-2023 Copper measurement [facility] Start: 05-30-2023 Rheumatoid factor [Units/volume] in Serum or Plasma [facility] Start: 05-30-2023 [facility] Start: 05-24-2023 End: 08-23-2023 Cobalamin (Vitamin B12) [Mass/volume] in Serum or Plasma VITAMIN B12 BLOOD Lab Routine Burning sensation Disturbance of skin sensation Expected: 05/24/2023, Expires: 08/23/2023 [facility] Work Phone: Comment on above: Expected: 05/24/2023 , Expires: 08/23/2023 Start: 05-24-2023 End: 08-23-2023 PROT ELECT SERUM WITH RONALD AND INTERP PROT ELECT SERUM WITH RONALD AND INTERP Lab Routine Burning sensation Disturbance of skin sensation Expected: 05/24/2023, Expires: 08/23/2023 [facility] Work Phone: Comment on above: Expected: 05/24/2023 , Expires: 08/23/2023 Start: 04-03-2023 [facility] Start: 03-30-2023 Referral to neurologist [facility] Start: 03-27-2023 Hospital admission [facility] Start: 03-27-2023 [facility] Start: 03-27-2023 [facility] Start: 03-26-2023 Referral to rehabilitation physician [facility] Start: 03-22-2023 [facility] Start: 03-22-2023 Drainage of Spinal C anal, Percutaneous Approach, Diagnostic Drainage of Spinal Canal, Percutaneous Approach, Diagnostic [facility] Start: 03-22-2023 Influenza vaccination Influenza Vacc ine (#1) [facility] Start: 03-22-2023 Hospital admission [facility] Start: 03-22-2023 Referral to neurologist [facility] Start: 03-22-2023 Patient referral to dietitian [facility] Start: 03-22-2023 Referral to Scout Sniper [facility] Start: 03-22-2023 [facility] Start: 03-21-2023 Cerebrospinal fluid culture [facility] Start: 03-21-2023 [facility] Start: 03-21-2023 CT of head without contrast CT head/brain wo con [facility] Start: 03-21-2023 CT Unspecified body region WO contrast [facility] Start: 03-21-2023 Plain chest X-ray XR chest 1V portab le [facility] Start: 03-21-2023 XR Chest Single view [facility] Start: 03-21-2023 Bacteria identified in Blood by Culture [facility] Start: 03-21-2023 Bacteria identified in Urine by Culture [facility] Start: 07-22-2022 [facility] Start: 03-22-2021 Influenza vaccination Flu vacc ine (Season Ended) [facility] Phone: Start: 03-22-2020 Influenza vaccination Flu vaccine (# 1) [facility] [place] Start: 10-24-2016 Pap Testing Pap Testing [facility] Start: 10-24-2014 Urine microalbumin profile DTaP,Tdap,Td Vaccine (1 - Tdap) [facility] Start: 10-24-2013 Hepatitis C Screening Hepatitis C Sc reening [facility] Start: 10-24-2013 HIV Screening HIV Screening [facility] Start: 2011 COVID-19 Vaccine (1) COVID-19 Vaccin e (1) [facility] Phone: Start: 10-24-2001 Pneumococcal vaccination Pneum ococcal Vaccine (1 - PCV) [facility] Start: 04-25-1996 Covid-19 Vaccine (#1) Covid-19 Vacci ne (#1) [facility] Start: 1995 Hepatitis B Vaccine (1 of 3 - 3-dose series) Hepatitis B Vaccine (1 of 3 - 3-dose series) [facility] Albumin/Globulin ratio [facility] Angiotensin converti ng enzyme [Enzymatic activity/volume] in Serum or Plasma [facility] Anion gap measurement [facility] Bacteria identified in Blood by Culture [facility] Bacteria identified in Unspecified specimen by Aerobe culture [facility] Bacteria identified in Unspecified specimen by Anaerobe culture [facility] Bilirubin.indirect [Mass/volume] in Serum or Plasma [facility] Blood zinc measurement [facility] Comprehensive metabo lic 1999 panel - Serum or Plasma [facility] Comprehensive metabo lic 1999 panel - Serum or Plasma [facility] Copper measurement [facility] Cryoglobulin [Presen ce] in Serum [facility] CT guided biopsy [facility] Globulin [Mass/volum e] in Serum [facility] Hepatitis B core ant ibody measurement, IgM type [facility] Hepatitis B virus gaines rface Ab [Presence] in Serum [facility] IR TRANSJUGULAR LIVE R BX W/PRESS IR TRANSJUGULAR LIVER BX W/PRESS Radiology Routine Advanced hepatic fibrosis Ordered: 06/05/2023 [facility] Work Phone: Comment on above: Ordered: 06/05/2023 Parietal cell Ab [Units/volume] in Serum [facility] Patient Education [facility] Work Phone: Patient referral [facility] Work Phone: Protein fractions.oligoclonal bands.intrathecal [Presence] in Serum and CSF [facility] Rheumatoid factor [Units/volume] in Serum or Plasma [facility] RNA polymerase III I gG Ab [Units/volume] in Serum or Plasma by Immunoassay [facility] Immunizations Immunization Date Immunization Notes Care Provider Raymundo champion 06-15-2014 tetanus toxoid, redu antoinette diphtheria toxoid, and acellular pertussis vaccine, adsorbed [facility]heng [facility] 05-13-2014 influenza virus vaccine, unspecified formulation [facility] 04-04-2001 DTaP, unspecified formulation [facility]heng [facility] 04-04-2001 measles, mumps and rubella virus vaccine [facility]heng [facility] 04-04-2001 poliovirus vaccine, unspecified formulation [facility] 01-27-1997 DTaP, unspecified formulation [facility]heng [facility] 01-27-1997 Hib, unspecified formulation Sheng [facility] 11-04-1996 measles, mumps and rubella virus vaccine [facility] 05-08-1996 DTP-Hib Sheng Harry [facility] 05-08-1996 hepatitis B vaccine, pediatric or pediatric/adolescent dosage Sheng Harry [facility] 03-02-1996 DTP-Hib Sheng Harry [facility] 01-01-1996 DTP-Hib Sheng Harry [facility] 01-01-1996 hepatitis B vaccine, pediatric or pediatric/adolescent dosage Sheng Harry [facility] 1995 hepatitis B vaccine, pediatric or pediatric/adolescent dosage Sheng Mcdonald [facility] Payers Date Payer Category Payer Self-pay 2023 Medicaid [employer] [id number] 2023-Present [phone] [address] [place] [address] Medicaid [id number] 2022 Unknown 1995 Unknown [id number] [id number] 1995 Unknown [id number] 2.16.840.1.562768.3.579.2.173 1995 Unknown [id number] 2.16.840.1.253833.3.579.2.173 1995 Unknown [id number] 2.16.840.1.892146.3.579.2.593 1995 Unknown [id number] 2.16.840.1.514293.3.579.2.593 1995 Unknown [id number] 2.16.840.1.518044.3.579.2.593 1995 Unknown [id number] 2.16.840.1.413131.3.579.2.593 1995 Unknown [id number] 2.16.840.1.111763.3.579.2.593 1995 Unknown [id number] 2.16.840.1.276340.3.579.2.593 1995 Unknown [id number] 2.16.840.1.833048.3.579.2.593 1995 Unknown [id number] 2.16.840.1.550846.3.579.2.593 1995 Unknown [id number] 2.16.840.1.171421.3.579.2.593 1995 Unknown [id number] 2.16.840.1.144506.3.579.2.593 1995 Unknown [id number] 2.16.840.1.715936.3.579.2.593 1995 Unknown [id number] 2.16.840.1.906283.3.579.2.196 1995 Unknown [id number] 2.16.840.1.697772.3.579.2.727 1995 Unknown [id number] 2.16.840.1.236888.3.579.2.727 1995 Unknown [id number] 2.16.840.1.075124.3.579.2.1286 1959 Unknown [id number] 1.2.840.926154.1.13.239.2.7.3. [id number] 1959 Unknown [id number] [facility] [id number] Unknown [id number] 2.16840.1.404204.3.579.2.531 Unknown [id number] 2.16840.1.757019.3.579.2.531 Unknown [id number] 2.16840.1.794150.3.579.2.531 Unknown [id number] 2.16840.1.169871.3.579.2.531 Unknown [id number] 2.16840.1.332033.3.579.2.531 Social History Date Type Detail Facility [facility] Start: 1995 Sex Assigned At Not on file [facility] Start: 03-22-2023 End: 11-13-2023 Tobacco smoking status NHIS Smoker (finding) [facility] Start: 1995 Sex Assigned At Female F [facility] Start: 01-11-2021 End: 04-12-2023 Tobacco smoking status Ex-smoker (finding) [facility] Tobacco smoking status Never [facility] Start: 01-28-2023 End: 01-29-2023 Sex Assigned At Female [facility] Start: 01-28-2023 Tobacco smoking stat [facility] Never smoked tobacco [facility] Start: 01-28-2023 Alcohol intake Current drinke r of alcohol (finding) [facility] Start: 01-28-2023 End: 01-29-2023 History of Social function [facility] Start: 05-23-2023 Tobacco smoking stat [facility] Smokes tobacco daily [facility] Start: 05-23-2023 Tobacco use and exposure Smokeless tobacco non-user [facility] Start: 04-12-2023 End: 05-23-2023 Alcohol intake Ex-drinker (finding) [facility] Start: 04-12-2023 Tobacco Comment Patient vapes [facility] Start: 05-14-2023 Gender identity Identifies as female gender (finding) [facility] Start: 05-14-2023 Sexual orientation Heterosexual (fin ding) [facility] History of tobacco use [facility]igarette [facility] Goals Date Patient Goal Desired Activity /State Functional Status Date Assessment Result Facility 04-03-2023 Functional status Patient at Baseline [facility] Work Phone: 03-27-2023 Functional status Patient is Pro gressing Toward Baseline [facility] Work Phone: 03-22-2023 Functional status Patient Not at Baseline [facility] Work Phone: Mental Status Date Assessment Result Facility 04-03-2023 Cognitive function Cognitive Sta tus Patient at Baseline [facility] Work Phone: 03-27-2023 Cognitive function Cognitive Sta tus Patient at Baseline [facility] Work Phone: 03-22-2023 Cognitive function Cognitive Sta tus Patient Not at Baseline [facility] Work Phone: Clinical Notes 03-22-2023 to 09-05-2023 Telephone Encounter - Jeannie Jarvis APRN.CNP - 06/05/2023 9:33 PM ESTTelephone Encounter - Paloma Le RN - 05/31/2023 1:54 PM EST Note Date & Type Note Facility 09-05-2023 Note HNO ID: [id number] Author: DIPTI GARZA, BREE Service: Nursing Author Type: Registered Nurse Type: Nursing Progress Note Filed: 09/06/2023 08:11 Note Text: Attempted post procedure phone call. Unable to reach patient, VM not working. [facility] 08-08-2023 Note HNO ID: [id number] Author: JOEL NOE MD Service: ? Author Type: Physician Type: Progress Notes Filed: 08/08/2023 11:57 Note Text: NEW CONSULT:RHEUMATOLOGY SERVICE SERVICE DATE: 08/08/2023 SERVICE TIME: 11:06 AM REASON FOR CONSULT: rash/+PAT REQUESTING PHYSICIAN: Danuta Araujo CNP,Shey Goodman CNP PRIMARY CARE PHYSICIAN: Danuta Araujo CNP, Patient's Name: Rica Stout [address] [place] [address] Accompanied by: mother This consult was requested for my medical opinion regarding the rheumatologic evaluation of the patient's rash/+PAT problems, and my final recommendations will be communicated to the requesting health care provider by way of the shared medical record for internal providers or letter via the [place] [employer] for external providers. 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 PATIENT REPORTS: Cardiac stress test:barber Breast exam:negative Pap exam: normal, last menses [...] Topics Alcohol use (more content not included)... [facility] 07-09-2023 Note [facility] Consult Note Reason [...] Neurologic Gait: normal (more content not included)... [facility] 07-09-2023 Note Patient here for 1 [...] All other systems reviewed and are negative. [facility] 06-10-2023 Note [facility] Consul t Note Reason for Consultation: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 [facility] Work Phone: 1(328) 197-609409-05-2023 Progress note Author Brianne Umanzor [facility] March 26, 2023 2:36pm Note Date/Time March 26, 2023 2:36pm [facility] [address] [employer], [place] [id number] Hospitalist Progress Note Signed Patient: Rica Stout MR#: [id number] : 1995 Acct:[id number] Age/Sex: 27 / F Adm Date: 3 Loc: 4N Room: [address] [place] [address] Type: ADM IN Attending Dr: Brianne Umanzor [...] <Electronically signed by Brianne Umanzor MD> 03/26/[address] [facility] Work Phone: 1(574) 351-296109-05-2023 Consult note Author Marc Giron [facility] March 26, 2023 12:50pm Note Date/Time March 26, 2023 9:50am [facility] [address] [place] [address] Physiatry (Rehab) Consult Note Signed Patient: Rica Stout MR#: [id number] : 1995 Acct:[id number] Age/Sex: 27 / F Adm Date: 3 Loc: Room: [address] [place] [address] Type: ADM IN Attending Dr: Brianne Umanzor MD Copies to: MD Brianne Hernandez MD Pamela Sue Cramer, DIRECTOR OF CONSULTING SERVICES~ Etiologic Dx/Impairment Group Narrative Narrative: Sensorimotor polyneuropathy HPI Consult Date: 03/26/23 Requesting Physician: Brianne Umanzor MD Primary Care Provider: Danuta Araujo, FIRE SPRINKLER FITTER-C Consult Narrative Reason for consult: Functional decline [...] negative unless noted below or in HPI [facility] Medical History Hyperammonemia No pertinent past medical [...] supervision is both reasonable and necessary, including hpps-th-yxmw visits at least 3 days/week with the [...] Allied health note review, nursing note review, market research consultant note review, discussion with nursing and case management, and more than 50% of my time was spent on counseling and coordination of care, time spent 65 minutes Patient was personally seen by me, Dr. Giron, on the day of encounter, reviewed the history and the relevant portions of the chart, including current orders, allied health and market research consultant notes, labs/imaging and performed wren elements of exam and I formulated the plan of care and facilitated the medical decision making. Documented By: Marc Giron MD 03/26/23 0950 Signed By: <Electronically signed by Marc Giron MD> 03/26/23 1250 [facility] Work Phone: 1(490) 776-654009-04-2023 Progress note Author Brianne Umanzor [facility] March 25, 2023 1:31pm Note Date/Time March 25, 2023 1:31pm [facility] [address] [place] [address] Hospitalist Progress Note Signed Patient: Rica Stout MR#: [id number] : 1995 Acct:[id number] Age/Sex: 27 / F Adm Date: 3 Loc: 4 Room: 6I7046-6 Type: ADM IN Attending Dr: Brianne Umanzor [...] <Electronically signed by Brianne Umanzor MD> 03/25/23 [facility] Work Phone: 1(490) 957-131409-03-2023 Progress note Author Brianne Umanzor [facility] March 24, 2023 12:31pm Note Date/Time March 24, 2023 12:31pm [facility] [address] [place] [address] Hospitalist Progress Note Signed Patient: Rica Stout MR#: [id number] : 1995 Acct:[id number] Age/Sex: 27 / F Adm Date: 3 Loc: 4N Room: [address] [place] [address] Type: ADM IN Attending Dr: Brianne Umanzor [...] <Electronically signed by Brianne Umanzor MD> 03/24/[address] [place] [address] Work Phone: 1(622) 850-763109-03-2023 Progress note Author Loli Cheema [facility] March 24, 2023 10:52am Note Date/Time March 24, 2023 9:58am [facility] [address] [place] [address] Neurology Progress Note Signed Patient: Rica Stout MR#: [id number] : 1995 Acct:[id number] Age/Sex: 27 / F Adm Date: 3 Loc: 4N Room: [address] [place] [address] Type: ADM IN Attending Dr: Brianne Umanzor [...] of dysmetria with good rapid alternating movements grxpms-vd-rwyd Tone is physiologic Deep tendon reflexes are [...] be a hereditary sensorimotor neuropathy such as Nemtugu-Vashn-Txazo and she will likely need some genetic [...] signed by DO Loli Cheema> 03/24/[address] [facility] Work Phone: 1(681) 790-208809-02-2023 Progress note Author Brianne Umanzor [facility] March 23, 2023 1:49pm Note Date/Time March 23, 2023 1:49pm [facility] [address] [place] [address] Hospitalist Progress Note Signed Patient: Rica Stout MR#: [id number] : 1995 Acct:[id number] Age/Sex: 27 / F Adm Date: 3 Loc: Room: [address] [place] [address] Type: ADM IN Attending Dr: Brianne Umanzor [...] 90 20 111/74 99 Room Air 03/23/23 11:03/23/23 11:03/23/23 11:03/23/23 11:03/23/23 11:03/23/23 08:00 Narrative: Const General: [...] <Electronically signed by Brianne Umanzor MD> 03/23/[address] [facility] Work Phone: 1(538) 218-679809-02-2023 Progress note Author Loli Cheema [facility] March 23, 2023 12:13pm Note Date/Time March 23, 2023 11:07am [facility] [address] [employer], [place] [address] Neurology Progress Note Signed Patient: Rica Stout MR#: [id number] : 1995 Acct:[id number] Age/Sex: 27 / F Adm Date: 3 Loc: 4N Room: [id number] Type: ADM IN Attending Dr: Brianne Umanzor [...] of dysmetria with good rapid alternating movements epzqrd-bn-brdj Tone is physiologic Deep tendon reflexes are [...] be a hereditary sensorimotor neuropathy such as Jhehuzd-Yrmkm-Eexvw and she will likely need some genetic [...] <Electronically signed by DO Loli Cheema> 03/23/[address] [facility] Work Phone: 1(293) 818-662609-01-2023 Consult note Author Chele Gamino [facility] March 22, 2023 3:54pm Note Date/Time March 22, 2023 1:28pm [facility] [address] [place] [address] Neurology Consult Note Signed Patient: Rica Stout MR#: [id number] : 1995 Acct:[id number] Age/Sex: 27 / F Adm Date: 3 Loc: 4N Room: [address] [place] [address] Type: ADM IN Attending Dr: Brianne Umanzor MD Copies to: DO Brianne Stevenson MD Pamela Sue Cramer, DIRECTOR OF CONSULTING SERVICES~ HPI Consult Date: 03/22/23 Open End Spinning Operator: Chele Gamino DO [facility] Medical History (Updated 03/22/23 @ 01:53 by [...] Dave Clark M.D.03/22/2023 8:07 AM Dictation Location: [place] [address] 03/21/23 21:23 IMPRESSION: Unremarkable exam Impression dictated by: Dave Clark M.D.03/22/2023 8:08 AM Dictation Location: [place] [address] Assessment/Plan (1) Weakness of distal arms and [...] supposed to have an appointment with a microbiology professor today to figure out what to do [...] had to quit her job at a [employer] because it was too much time on [...] <Electronically signed by Chele Gamino DO> 03/22/[address] [facility] Work Phone: 1(494) 950-303509-01-2023 Progress note Author Brianne Umanzor [facility] March 22, 2023 12:53pm Note Date/Time March 22, 2023 12:52pm [facility] [address] [place] [address] Progress Note Signed Patient: Rica Stout MR#: [id number] : 1995 Acct:[id number] Age/Sex: 27 / F Adm Date: 3 Loc: 4N Room: [address] [place] [address] Type: ADM IN Attending Dr: Brianne Umanzor [...] <Electronically signed by Brianne Umanzor MD> 03/22/23 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 She saw [...] She has had testing done at the [facility] where they foundher liver enzymes were elevated, [...] bolus. [facility] of the[facility] team for further evaluation and treatment. Review of Systems Review of Systems Review of systems: A 10 point review of systems was obtained, negative unless noted in the HPI or below. [facility] Medical History (Updated 03/22/23 @ 01:53 by [...] % (Auto) 29.7 % (.) 03/21/23 19:15 [place] % (Auto) 7.6 % (.) 03/21/23 19:15 Eos % (Auto) 2.7 % (.) 03/21/23 19:15 Baso % (Auto) 1.6 % (.) 03/21/23 19:15 Nucleat RBC Rel Count 0.1 /100 WBC (0-0.5) 03/21/23 19:15 Neut # (Auto) 4.2 x10E3/uL (1.8-7.7) 03/21/23 19:15 Lymph # (Auto) 2.1 x10E3/uL (1.00-4.8) 03/21/23 19:15 [place] # (Auto) 0.5 x10E3/uL (0.0-0.8) 03/21/23 19:15 [...] pH 5.0 (5.0-9.0) 03/21/23 19:25 Ur Specific [place] 1.019 (1.001-1.030) 03/21/23 19:25 Urine Protein Trace [...] CSF Neutrophils N/A 03/21/23 23:50 CSF Neutrophils Bus And Sys Integration Senior Manager 03/21/23 23:50 CSF Lymphocytes N/A 03/21/23 23:50 [...] plan of care and confirmed the DIRECTOR OF CONSULTING SERVICES's written note. Documented By: Yoana Rico APRN 03/22/23 0125 Signed By: <Electronically signed by HODAN Rico> 03/22/23 0207 <Electronically signed by Parveen Keller MD> 03/22/23 0730 [facility] Work Phone: Consult note Author Jane Tracey [facility] May 30, 2023 3:16pm Note Date/Time May 30, 2023 2 :16pm [facility] [place] [address] Hem/Onc Consult Note - OP Signed Patient: Rica Stout MR#: [id number] : 1995 Acct:[id number] Age/Sex: 27 / F Type: REG RCR Copies to: DO Danuta Drake, ANDREA Goodman APRN-AJAY-Mikel~ HPI Date/Time of Service: Date of Service: 05/30/2023 Time of Service: 14:14 Referring Provider/PCP: Referring Provider: Keshav Arrington DO PCP: Danuta Araujo, FIRE SPRINKLER FITTER-C - History of Present Illness Reason for [...] it was minimally effective. She also saw [facility] neurologist 05/22/23 but we do not [...] with and without contrast was done at [facility] on 03/27/2023 revealed no cord compression or abnormal postcontrast enhancement. No significant spinal canal narrowing or neural foraminal narrowing. MRI of the lumbar spine with without contrast on 03/22/2023 revealed mild degenerative changes without significant spinal canal or neuroforaminal narrowing. It did reveal broad based disc bulges at T12-L1 and L1-L2. But no masses or abnormal postcontrast enhancement. Abdominal ultrasound at [facility] on 03/22/2023 revealed a prominent [...] was 58 which were normal. She saw [facility] GI who recommended liver biopsy but then decided to follow observation for now for 6 months. 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 Her Lipids were very high as well. She also has hypopigmented skin spots on both arms since March 2023, saw dermatology at [facility] who performed a skin biopsy but told her what sounds she has vascular insufficiency but no reports were available to us as well. She has not been using folic acid or thiamin since they ran out beginning of April 2023. She is wearing 30 days barber currently due to history of tachycardia and she has been using magnesium and atenolol for that. She liver in an old house that has molds, mice and not sure if it has lead as well. 14 points systems were reviewed and are negative. [facility] - Medical History Medical History: Medical History [...] the reports from the skin biopsy, the [facility] dermatology note, and the [facility] neurology note. -Return in 4 weeks [...] etiology but she saw dermatology at the [facility] who performed a skin biopsy and the report of the skin biopsy is not available to us however she was told by dermatology there that she has vascular insufficiency causing the rash. -We will try to obtain the reports from the skin biopsy and dermatology note from [facility] dermatology. - Time with Patient Total Time Spent with Patient (Consult): 60 mins or more Coordination of Care & Counseling Time: Greater than 50% of time spent with patient was for coordination of care (as documented) and vavj-ch-sokz counseling of patient and/or family. Dictated By: Jane Tracey MD DD/ 1414 Signed By: <Electronically signed by Jane Tracey MD> 05/30/23 1516 [facility] Work Phone: Discharge summary Author Brianne Umanzor [facility] March 27, 2023 2:45pm Note Date/Time March 27, 2023 2:38pm [facility] [address] [place] [address] Discharge Summary Signed Patient: Rica Stout MR#: [id number] : 1995 Acct:[id number] Age/Sex: 27 / F Adm Date: 3 Loc: Room: [address] [place] [address]: Brianne Umanzor MD Copies to: [...] GBS. She was found to have low bsxewft11 and given once time dose here. Also [...] Discharge Plan Discharge Plan Patient Disposition: Rehab [facility] Activity: Ambulate as Tolerated Diet: Regular Additional [...] PO QAM Follow Up: [facility] [place] [Outside] (Please call to schedule an appointment when discharged from Rehab.) Documented By: Brianne Umanzor MD 03/27/23 14 37 Signed By: <Electronically signed by Brianne Umanzor MD> 03/27/23 1445 [facility] Work Phone: Evaluation + Plan note No data available for this section [facility] Evaluation note* Diagnosis Onset Date Resolution Status Bilateral leg paresthesia ac [place] History of ETOH abuse acute Hx of drug abuse acute Hypomagnesemia acute Hypophosphatemia acute Paresthesia of upper extremity acute Poor appetite acute Transaminitis acute UTI (urinary tract infection) acute Weakness acute Weakness of distal arms and legs acute Weight loss acute [facility] Work Phone: Evaluation note* Diagnosis Onset Date Resolution Status Bilateral leg paresthesia [place] History of ETOH abuse acute Hx of drug abuse acute Hypomagnesemia acute Hypophosphatemia acute Paresthesia of upper extremity acute Poor appetite acute Sensorimotor neuropathy acut e Transaminitis acute UTI (urinary tract infection) acute Weakness acute Weakness of distal arms and legs acute Weight loss acute [facility] Work Phone: Evaluation note* Diagnosis Onset Date Resolution Status Bilateral leg paresthesia [place] History of ETOH abuse acute Hx of drug abuse acute Hypomagnesemia acute Hypophosphatemia acute Paresthesia of upper extremity acute Poor appetite acute Sensorimotor neuropathy acut e Transaminitis acute UTI (urinary tract infection) acute Weakness acute Weakness of distal arms and legs acute Weight loss acute Bilateral leg paresthesia [place] Folate deficiency acute History of ETOH abuse acute Hx of drug abuse acute Hypomagnesemia acute Hypophosphatemia acute Impaired mobility and ADLs a cute Sensorimotor neuropathy acut e Transaminitis acute UTI (urinary tract infection) acute Weakness acute Weakness of distal arms and legs acute [facility] Work Phone: Evaluation note* Diagnosis Burning sensation- Primary Disturbance of skin sensation Disturbance of skin sensation [facility] Diagnosis Advanced hepatic fibrosis- Primary [facility] this [facility]* Diagnosis Onset Date Resolution Status Bilateral leg paresthesia ac [place] History of ETOH abuse acute Hx of drug abuse acute Hypomagnesemia acute Hypophosphatemia acute Paresthesia of upper extremity acute Poor appetite acute Sensorimotor neuropathy acut e Transaminitis acute UTI (urinary tract infection) acute Weakness acute Weakness of distal arms and legs acute Weight loss acute Bilateral leg paresthesia [place] Folate deficiency acute History of ETOH abuse acute Hx of drug abuse acute Hypomagnesemia acute Hypophosphatemia acute Impaired mobility and ADLs a cute Sensorimotor neuropathy acut e Transaminitis acute UTI (urinary tract infection) acute Weakness acute Weakness of distal arms and legs acute Elevated immunoglobulin A [place] Multiple hypopigmented skin lesions on both forearms acute 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 acute [facility] Work Phone: Evaluation note* Diagnosis Advanced hepatic fibrosis- Primary [facility]* Diagnosis Onset Date Resolution Status Elevated immunoglobulin A [place] Multiple hypopigmented skin lesions on both forearms acute 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 acute [facility] Work Phone: Evaluation note* Diagnosis Onset Date Resolution Status Elevated immunoglobulin A [place] Multiple hypopigmented skin lesions on both forearms acute 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 No driving until cleared by physician, may ride in car. -Diet: Regular diet. You will have Outpatient Physical Therapy at [facility] at [facility] (Address: [address] [place] [address] Marie Siddiqui, [place], [place]/ ext. 0301). The order for this has already been [...] office to inform them prior to your appointment.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 Chief Complaint high total serum IGM 3 Month Follow Up Reason for Visit Elevated immunoglobu franklin A Multiple hypopigmented skin lesions on both forearms Sensorimotor neuropathy 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 Chief Complaint high total serum IGM 3 Month Follow Up Reason for Visit Elevated immunoglobu [place] A Multiple hypopigmented skin lesions on both forearms Sensorimotor neuropathy 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 B12 deficiency Elevated immunoglobulin A Folate deficiency Multiple hypopigmented skin lesions on both forearms Sensorimotor neuropathy 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 Transaminitis Additional Source Comments INFORMATION SOURCE (unrecogn ized section and content) DATE CREATED AUTHOR 11/12/2020 [facility] DATE CREATED AUTHOR AUTHOR'S ORGANIZ ATION 10/27/2022 [facility] DATE CREATED AUTHOR AUTHOR'S ORGANIZ ATION 02/01/2023 [facility] DATE CREATED AUTHOR AUTHOR'S ORGANIZ ATION 05/13/2023 [facility] DATE CREATED AUTHOR AUTHOR'S ORGANIZ ATION 07/17/2023 [facility] DATE CREATED AUTHOR AUTHOR'S ORGANIZ ATION 07/20/2023 [facility] DATE CREATED AUTHOR AUTHOR'S ORGANIZ ATION 08/04/2023 [facility] DATE CREATED AUTHOR AUTHOR'S ORGANIZ ATION 09/07/[address] [facility] DATE CREATED AUTHOR AUTHOR'S ORGANIZ ATION 12/26/2023 [facility] Care Teams (unrecognized sec tion and content) Team Status: Active Member Role Status Dates DRAKE Deras Primary Care Provider Active Team Status: Active Member Role Status Dates DRAKE Deras Primary Care Provider Active Jane Tracey MD Attending Provider Active Keshav Arrington DO Referring Provider Active Team Status: Inactive Member Role Status Dates DRAKE Deras Primary Care Provider Active Jane Tracey MD Attending Provider Active Team Status: Inactive Member Role Status Dates Danuta Araujo , FIRE SPRINKLER FITTER-C Primary Care Provider Active Bernard Peterson , DO Emergency Provider Active Parveen Keller MD Admit Provider Active Chele Gamino , DO Other Provider Active Brianne Umanzor MD Attending Provider Active Marc Giron MD Other Provider Active Team Status: Active Member Role Status Dates Danuta Araujo , FIRE SPRINKLER FITTER-C Primary Care Provider Active Marc Giron MD Admit Provider, Attending Provider A ctive Team Status: Active Member Role Status Dates Danuta Araujo , FIRE SPRINKLER FITTER-C Primary Care Provider Active Bernard Peterson , DO Emergency Provider Active Parveen Keller MD Admit Provider, Attending Provide r Active Team Status: Inactive Member Role Status Dates Danuta Araujo , FIRE SPRINKLER FITTER-C Primary Care Provider Active Marc Giron MD Admit Provider, Attending Provider A ctive Susanna Linn Other Provider Active Loli Cheema , DO Other Provider Active David Chowdary MD Other Provider Active Keshav Arrington , DO Other Provider Active Chetna Schwarz , ANP-BC Other Provider Active Chele Gamino , DO Other Provider Active Mandy Coker APRN Other Provider Active Jes Akhtar , FIRE SPRINKLER FITTER-C Other Provider Active Cris Goodman , HODAN-LEAD COATER-C Other Provider Active Tur[employer] 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 Relationship Specialty Start Date End Date Irvin Cervantes MD [address] [place] [address] Referring Family Medicine 03/15/23 Turf Farm Worker Relationship Specialty Start Date End Date Irvin Cervantes MD [address] [place] [address] Referring Family Medicine 03/15/23 Cris Goodman [address] [address] Referring 05/02/23 Turf Farm Worker Relationship Specialty Start Date End Date Irvin Cervantes MD [address] [place] [address] Referring Family Medicine 03/15/23 Cris Goodman [address] [place] [address] Referring 05/02/23 Team Status: Active Member Role Status Dates DRAKE Deras Primary Care Provider Active Start: November 13, 2023 Jane Tracey MD Attending Provider Active Start: November 13, 2023 Keshav Arrington DO Referring Provider Active Start: November 13, 2023 Team Status: Inactive Member Role Status Dates DRAKE Deras Primary Care Provider Active Start: November 13, 2023 End: November 13, 2023 Jane Tracey MD Attending Provider Active Start: November 13, 2023 End: November 13, 2023 Team Status: Inactive Member Role Status Dates DRAKE Deras Primary Care Provider Active Start: December 11, 2023 End: December 11, 2023 Cristóbal Casillas MD Attending Provider Active St art: December 11, 2023 End: December 11, 2023 Source Comments (unrecognize d section and content) In the event this informatio n is protected by the Federal Confidentiality of Alcohol and Drug Abuse Patient Records regulations: The Federal rules restrict any use of the information to criminally investigate or prosecute any alcohol or drug abuse patient.[facility] Health[facility] the event this information is protected by the Federal Confidentiality of Alcohol and Drug Abuse Patient Records regulations: The Federal rules restrict any use of the information to criminally investigate or prosecute any alcohol or drug abuse patient.[facility] HealthIn the event this information is protected by the Federal Confidentiality of Alcohol and Drug Abuse Patient Records regulations: The Federal rules restrict any use of the information to criminally investigate or prosecute any alcohol or drug abuse patient.[facility] HealthIn the event this information is protected by the Federal Confidentiality of Alcohol and Drug Abuse Patient Records regulations: The Federal rules restrict any use of the information to criminally investigate or prosecute any alcohol or drug abuse patient.[facility] Reason for Visit (unrecogniz ed section and content) Reason Comments Appointment Reason Comments Consult My hands and my feet feel like rocks Stiff Especially feetFeels like standing on hot coals Like feet are on fire Sometimes shooting pains Specialty Diagnoses / Procedures Referred By Contsriram t Referred To Contact Neurology Diagnoses Neuropathy Procedures CONSULT TO NEUROLOGY OFFICE/OUTPATIENT [facility] HIGH MDM 60-74 MINUTES Jeannie Jarvis, HODAN.DIRECTOR OF CONSULTING SERVICES [address] [place] [address] Referral ID Status Reason Start Date Expiration Date V isits Requested Visits Authorized [id number] Closed PCP Requested Referral 04/12/2023 04/11/2024 1 [...] BE BASED ON THE PRIMARY CLINICAL RECORDS. [facility]. provides no warranty or guarantee of the accuracy or completeness of information in this document.
== END 2024-01-15 20:23 | disposition home or self-care (01) ==
LOC: LAB 20:22
PROVIDERS: PCP Nurse Practitioner Family; Visit Provider Obstetrics & Gynecology
DX: Z01.419 Encounter for gynecological examination (general) (routine) without abnormal findings (principal)
CPT/HCPCS: 88175

== ENCOUNTER 2024-07-23 15:32 | Emergency (ER) | payer OTHER, SELFPAY ==
[2024-07-23 16:02] VITALS: BP 119/70; PULSE 100; TEMP 36.8; O2SAT 100; BMI 20.6
== END 2024-07-23 17:35 | disposition left against medical advice (07) ==
LOC: ER 15:36
PROVIDERS: Emergency Provider Emergency Medicine; PCP Nurse Practitioner Family
DX: Z53.21 Procedure and treatment not carried out due to patient leaving prior to being seen by health care provider (principal)

== ENCOUNTER 2025-01-31 10:36 | Emergency (ER) | payer SELFPAY ==
[2025-01-31 10:41] VITALS: BP 133/80; PULSE 125; TEMP 37.9; O2SAT 100; BMI 23.0
--- OUTSIDE RECORDS SUMMARY | 2025-01-31 10:58 | XMS_ITS | CCD ---
Author Organization [facility] Care Team Providers Care Financial Reporting Advisor Name Role Phone Akin Niñon R Primary Care Provider INOCENCIO BENDER Referring Unavailable RENAY, HAVEN R Primary Care Unavailable INOCENCIO BENDER Referring Unavailable RENAY, HAVEN R Primary Care Unavailable MASSIMO BIRGHT Referring Unavailable RENAY, HAVEN R Primary Care [...] Primary Care Unavailable SWATI, DANUTA Attending Unavailable SWATI, DANUTA Consulting Unavailable SWATI, DANUTA Admitting Unavailable SWATI, DANUTA Primary Care Unavailable Karyna Langford Consulting Unavailable SWATI, DANUTA Attending Unavailable SWATI, DANUTA Consulting Unavailable NICKI ., DAVE Admitting Unavailable NICKI ., DAVE Consulting Unavailable NICKI ., DAVE Attending Unavailable SWATI, DANUTA Primary Care Unavailable JERSEY CHAMBERSA Admitting Unavailable KLARISSA CHAMBERS Consulting Unavailable KLARISSA CHAMBESR Attending Unavailable SWATI, DANUTA Primary Care Unavailable SWATI, DANUTA Admitting Unavailable SWATI, DANUTA Primary Care Unavailable Karyna Langford Consulting Unavailable SWATI, DANUTA Attending Unavailable SWATI, DANUTA Consulting Unavailable SWATI, DANUTA Primary Care Unavailable SUDHA ., DR DUCKWORTH Attending Unavailable SUDHA ., DR DUCKWORTH Admitting Unavailable SUDHA ., DR DUCKWORTH Consulting Unavailable Swati, AMERICAN STUDIES PROFESSOR-C Danuta Diana Primary Care Provider DO Bernard Peterson Emergency Provider MD Parveen Riley Admit Provider [phone] MD Parveen Keller Attending Provider HAVEN NIÑO CNP Primary Care Physician DO Chele Gamino Other Provider MD Brianne Umanzor Attending Provider MD Marc Giron Other Provider MD Marc Giron Admit Provider MD Marc Giron Attending Provider Susanna Linn Other Provider Unavailable DO Loli Cheema Other Provider MD David Chowdary Other Provider DO Keshav Arrington Other Provider Chong ANP- Chetna Other Provider HODAN Coker Other Provider DRAKE Akhtar Other Provider [phone] HODAN Goodman-PROFESSOR SCULPTURE-C Cris Conklin Other Provider Irvin Cervantes MD Unavailable Neelima GRECO, Zane Bal Attending Unavailable Cris Goodman Unavailable DEBORAH Araujo-Mikel Ortiz Primary Care Provider [phone] DO Bernard Peterson Emergency Provider MD Parveen Riley Admit Provider DO Chele Gamino Other Provider MD Brianne Umanzor Attending Provider [phone] MD Marc Giron Other Provider MD Marc Giron Admit Provider MD Marc Giron Attending Provider Temitope Susanna Other Provider Unavailable DO Loli Cheema Other Provider MD David Chowdary Other Provider DO Keshav Arrington Other Provider Chong ANP- Chetna Other Provider HODAN Coker Other Provider [phone] DRAKE Akhtar S Other Provider [phone] HODAN Goodman-PROFESSOR SCULPTURE-C Cris Conklin Other Provider [phone] MD Jane Tracey Attending Provider MD Jane Tracey Attending Provider DRAKE Araujo Primary Care Provider MD Jane Tracey Attending Provider DO Keshav Arrington Referring Provider [phone] NETTIE SHEA Attending Unavailable MARTHA GRAY Attending Unavailable MARTHA GRAY Attending Unavailable MADDIE LOPEZ Attending Unavailable SWATI, DANUTA S Referring Unavailable NICOLE SOARES Primary Care Unavailable HOLMAN, AMANJIT S Admitting Unavailable HOLMAN, AMANJIT S Attending Unavailable RODDENBERRY, JEANNIE Referring Unavailable RODDENBERRY, JEANNIE Referring Unavailable RODDENBERRY, JEANNIE Attending Unavailable SWATI, DANUTA S Primary Care Unavailable JUANIS GOVEA Referring Unavailable JOEL NOE Attending Unavailable ARSH OROZCO Attending Unavailabl e RODDENBERRY, JEANNIE Referring Unavailable RODDENBERRY, JEANNIE Attending Unavailable DRAKE Araujo Primary Care Provider MD Jane Tracey Attending Provider DO Keshav Arrington Referring Provider MD Cristóbal Casillas Attending Provider [phone] Cristóbal Casillas Admitting Unavailable Cristóbal Casillas Attending Unavailable Danuta Araujo Primary Care Unavailable Keshav Arrington Referring Unavailab Danuta Naidu Primary Care Unavailable Jane Tracey Admitting UnavailJane Hu Attending UnavailChele Gonzalez Consulting Unavailable Brianne Umanzor Attending Unavailable Danuta Araujo Primary Care Unavailable Parveen Keller Admitting Unavailable Marc Giron Consulting Unavailable Marc Giron Admitting Unavailable Marc Giron Attending Unavailable Susanna Linn Consulting Unavailable Danuta Araujo Primary Care Unavailable Loli Cheema Consulting Unavailable David Chowdary Consulting Unavailable Keshav Arrington Consulting Unavailab Chetna Bright Consulting Unavailable Chele Gamino Consulting Unavailable Mandy Coker Consulting Unavailable Jes Akhtar Consulting Unavailable Cris Goodman Consulting Unavailable Danuta Araujo Primary Care Unavailable Jane Tracey Admitting Unavailabl Jane Wade Attending UnavailMASSIMO Bañuelos Attending Unavailable HAVEN NIÑO CNP Primary Care Unavailable Nicole Soares MD Primary Care Provider Allergies Allergy Classification Reported Allergen(s) Allergy Type Date of Onset Reaction(s) Facility (10 sources) Penicillins; Translations: [PENICILLINS] Drug allergy (disorder) 4 Rash [facility] Repository (2 sources) Penicillin; Translations: [penicillin] Drug Allergy Eruption of skin (disorder) [facility] (5 sources) Penicillins Drug Allergy 7 Rash, Hives [facility] (1 source) Penicillins Drug allergy (disorder) 4 [facility] Repository Medications Current Medications Medication Drug Class(es) Dates Sig (Normalized) Sig (Original) acamprosate calcium 333 mg delayed release oral tablet (3 sources) Start: 11-13-2023 take 1 tablet by mouth twice daily at dinner Acamprosate 333 mg tablet,delayed release (DR/EC) Active 333 MG PO Twice daily November 12, 2023 11:00pm administer with mid-day and evening meals buprenorphine 8 mg sublingual tablet (1 source) Partial Opioid Agonist take 1 tablet under the tongue once daily buprenorphine (SUBUTEX) 8 mg tablet, sublingual Place 8 mg under the tongue daily. 0 Active folic acid 1 mg oral tablet (20 sources) Start: 05-30-2023 take 2 tablets by mouth once daily Folic Acid 1 mg Tablet Active 2 MG PO Daily May 30, 2023 12:00am Start: 05-30-2023 take 2 mg by mouth once daily Folic Acid Active 2 MG PO Daily May 30, 2023 1:00am Start: 03-27-2023 End: 05-30-2023 take 1 tablet by mouth in the morning folic acid (FOLVITE) 1 mg tablet Take 2 tablets (2,000 mcg total) by mouth in the morning. 0 04/02/2023 Active Comment on above: TAKE 1 TABLET EVERY MORNING FOR 30 DAYS gabapentin 300 mg oral capsule (9 sources) Anti-epileptic Agent Start: 05-17-20 take 1 capsule by mouth twice daily Gabapentin 300 mg capsule Active 300 MG PO Twice daily May 30, 2023 12:00am Comment on above: Take 300 mg by mouth two times a day. 24 hr metoprolol succinate 25 mg extended release oral tablet (8 sources) beta-Adrenergic Poonam Start: 05-08-20 End: 05-07-20 take 1 tablet by mouth once daily in the morning Metoprolol Succinate 25 mg tablet extended release 24 hr Active 25 MG PO Every morning May 30, 2023 12:00am Comment on above: Take 25 mg by mouth once daily. VIT #76/IRON,CARB/FA (PNV 29-1 ORAL) (1 source) VIT #76/IRON,CARB/FA (PNV 29-1 ORAL) Take by mouth. 0 Active sertraline 50 mg oral tablet (3 sources) Serotonin Reuptake Inhibitor Start: 11-13-19 take 1 tablet by mouth once daily Sertraline (Zoloft) 50 mg tablet Active 50 MG PO Daily November 12, 2023 11:00pm vitamin b12 1 mg/ml injectable solution (2 sources) Vitamin B12 Start: 11-13-19 inject 1000 ug by intramuscular injection every week Cyanocobalamin (Vitamin B-12) 1,000 mcg/mL solution Active 1000 MCG IM every week November 12, 2023 11:00pm dispense appropriate syringes and needles with B12 Start: 11-13-2023 inject 1000 ug by in tramuscular injection every week Cyanocobalamin (Vitamin B-12) Active 1000 MCG IM every week November 13, 2023 12:00am dispense appropriate syringes and needles with B12 vitamin b6 50 mg oral tablet (12 sources) Start: 05-30-2023 End: 05-30-2023 take 1 tablet by mouth once daily Pyridoxine (Vitamin B6) (Vitamin B-6) 50 mg Tablet Active 50 MG PO Daily May 30, 2023 12:00am Completed/Discontinued Medications Medication Drug Class(es) Dates Sig (Normalized) Sig (Original) diclofenac sodium 0.01 mg/mg topical gel (7 sources) Nonsteroidal Anti-inflammatory Drug Start: 04-02-2023 End: [...] a day. lactulose 667 mg/ml oral solution (9 sources) Osmotic Laxative Start: 03-21-2023 End: 05-30-2023 take 10 g by mouth once daily in the morning Lactulose 10 gram/15 mL solution Discontinued 10 GM PO Every morning March 20, 2023 11:00pm May 30, 2023 2:16pm magnesium oxide 200 mg oral tablet (8 [...] on above: OTC magnesium 200 mg BID Magnesium Oxide 200 mg magnesium tablet,chewable (1 source) Start: 03-21-2023 End: 11-13-2023 take 1 tablet by mouth once daily in the morning Magnesium Oxide 200 mg magnesium tablet,chewable Discontinued 200 MG PO Every morning March 20, 2023 11:00pm November 13, 2023 8:52am menthol 10 mg/ml / methyl salicylate 150 mg/ml topical cream (7 sources) Start: 04-02-2023 End: 05-30-2023 Methyl Salicylate-Menthol (Thera-Gesic) 15-1 % Cream Discontinued 1 APPLIC TOPICAL Three times daily as needed for Pain April 01, 2023 11:00pm May 30, 2023 2:17pm potassium chloride 20 meq extended release oral tablet (12 sources) Start: 03-20-2023 End: 05-30-2023 take 1 tablet by mouth twice daily Potassium Chloride 20 mEq tablet extended release Discontinued 20 MEQ PO Twice daily March 20, 2023 11:00pm May 30, 2023 2:17pm Comment on above: TAKE 1 TABLET WITH F OOD ORALLY TWICE A DAY 30 DAYS pregabalin 75 mg oral capsule (10 sources) Start: 04-02-2023 End: 05-30-2023 take 1 capsule by mouth twice daily Pregabalin 75 mg Capsule Discontinued 75 MG PO Twice daily April 01, 2023 11:00pm May 30, 2023 2:15pm Comment on above: Take 75 mg by mouth. thiamine 100 mg oral tablet (20 sources) Start: 03-27-2023 End: 05-30-2023 take 1 tablet by mouth once daily in the morning Thiamine Hcl (Vitamin B1) 100 mg Tablet Discontinued 100 MG PO Every morning April 01, 2023 11:00pm November 9th, 2023 2:17pm Comment on above: Take 100 mg by mouth every morning. Problems Active Problems Problem Classification Problem Date Documented Date Episodic/Chronic Administrative/socia l admission (11 sources) Other reduced mobility; Translations: [Impaired mobility and activities of daily living] Onset: 03-27-2023 03-28-2023 Episodic Alcohol-related disorders (18 sources) History of alcohol abuse; Translations: [Alcohol abuse, in remission] Onset: 03-27-2023 03-21-2023 Chronic Cardiac dysrhythmias (5 sources) Supraventricular tachycardia; Translations: [Supraventricular tachycardia] Onset: 11-06-2021 Chronic Fluid and electrolyte disorders (2 sources) Dehydration; Translations: [Hypokalemia] Onset: 09-17-2022 Episodic Genitourinary symptoms and ill-defined conditions (4 sources) Unspecified symptoms and signs involving the genitourinary system; Translations: [UNS SYMPTOMS SIGNS INVLV SYSTEM] Onset: 08-22-2022 Episodic Immunizations and screening for infectious disease (16 sources) Encounter for screening for infections with a predominantly sexual mode of transmission; Translations: [Encounter for immunization] Onset: 06-07-2022 05-30-2023 Episodic Malaise and fatigue (19 sources) Weakness; Translations: [Asthenia] Onset: 10-16-2022 03-21-2023 Episodic Mycoses (1 source) Candidiasis, unspecified; Translations: [CANDIDIASIS UNSPECIFIED] Onset: 08-23-2022 Episodic Nausea and vomiting (4 sources) Vomiting, unspecified; Translations: [Nausea with vomiting, unspecified] Onset: 08-30-2022 Episodic Nonmalignant breast conditions (5 sources) Unspecified lump in unspecified breast; Translations: [Unspecified lump in the right breast, unspecified quadrant] Onset: 09-17-2022 Episodic Nutritional deficiencies (16 sources) Deficiency of other specified B group vitamins; Translations: [Folic acid deficiency] Onset: 09-23-2022 03-28-2023 Episodic Other and unspecified benign neoplasm (1 source) Benign neoplasm of right breast; Translations: [BENIGN NEOPLASM OF RIGHT BREAST] Onset: 10-01-2022 Episodic Other circulatory disease (1 source) Other disorder of circulatory system; Translations: [Other disorder of circulatory system] Onset: 08-01-2023 Episodic Other connective tissue disease (9 sources) Weakness of distal arms and legs; [...] hepatic fibrosis] 05-14-2023 Chronic Other liver diseases (12 sources) Fatty (change of) liver, not elsewhere classified; 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] 05-30-2023 Chronic Other liver diseases (18 sources) Enzyme level - finding; Translations: [Elevated transaminase measurement] 03-22-2023 Episodic Other liver diseases (1 source) Elevated liver enzymes level 01-11-2021 Episodic Other nervous system disorders (8 sources) Disorder of the peripheral nervous system; Translations: [Polyneuropathy, unspecified] 03-26-2023 Chronic Other nervous system disorders (15 sources) Polyneuropathy, unspecified; Translations: [Unspecified hereditary and idiopathic peripheral neuropathy] Onset: 03-22-2023 03-27-2023 Chronic Other nervous system disorders (1 source) Anesthesia of skin; Translations: [ANESTHESIA OF SKIN] Onset: 10-26-2022 Episodic Other nervous system disorders (9 sources) Paresthesia of lower extremity; Translations: [Paresthesia of skin] 03-21-2023 Episodic Other nervous system disorders (9 sources) Paresthesia of upper limb; Translations: [Paresthesia [...] nutritional; endocrine; and metabolic disorders (9 sources) Hypophosphatemia; Translations: [Other disorders of phosphorus metabolism] 03-21-2023 Chronic Other nutritional; endocrine; and metabolic disorders (9 sources) Hypomagnesemia; Translations: [Hypomagnesemia] 03-21-2023 Chronic Other nutritional; endocrine; and metabolic disorders (9 sources) Other disorders of phosphorus metabolism; 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] Onset: 03-22-2023 03-22-2023 Chronic Other nutritional; endocrine; and metabolic disorders (9 sources) Decrease in appetite; Translations: [Anorexia] 03-21-2023 Episodic Other nutritional; endocrine; and metabolic disorders (9 sources) Weight loss; Translations: [Abnormal weight loss] 03-21-2023 Episodic Other nutritional; endocrine; and metabolic disorders (5 sources) Anorexia; Translations: [Anorexia] 03-22-2023 Episodic Other skin disorders (6 sources) Skin hypopigmented; Translations: [Disorder of pigmentation, [...] source) Edema Onset: 08-01-2023 Episodic Substance-related disorders (19 sources) Nicotine dependence, cigarettes, uncomplicated; Translations: [History of drug abuse] Onset: 09-03-2022 03-21-2023 Chronic Unclassified (4 sources) Unspecified lump in the right breast, overlapping quadrants; Translations: [UNS LUMP RT BREAST OVRLPNG QUADRNTS] Onset: 09-23-2022 Unclassified (1 source) Supraventricular tachycardia, unspecified; Translations: [Supraventricular tachycardia, unspecified] Onset: 10-18-2023 Unclassified (1 source) Advanced hepatic fibrosis; 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] Onset: 09-05-2023 Unclassified (1 source) Hereditary motor and sensory neuropathy; Translations: [Hereditary motor and sensory neuropathy] Onset: 03-27-2023 Unclassified (1 source) Alcohol abuse, in remission; Translations: [Alcohol abuse, in remission] Onset: 03-22-2023 Unclassified (1 source) Elevation of levels of liver transaminase levels; Translations: [Elevation of levels of liver transaminase levels] Onset: 03-22-2023 Urinary tract infections (18 sources) Urinary tract infectious disease; Translations: [Urinary tract infection, site not specified] Onset: 03-22-2023 03-21-2023 Episodic Past or Other Problems Problem Classification Problem Date Documented Date Episodic/Chronic Conditions associated with dizziness or vertigo (1 source) Dizziness; Translations: [Dizziness and giddiness] 08-18-2023 Episodic E Codes: Cut/pierceb (1 source) Contact with other sharp object(s), not elsewhere classified, initial encounter; Translations: [[facility] OTH SHRP OB NOT ELSW CLASS INI] Onset: 06-07-2022 Episodic Open wounds of extremities (4 sources) Laceration without foreign body of left index finger without damage to nail, initial encounter; Translations: [LAC W/O FB LT IF W/O DMG NAIL INIT] Onset: 06-05-2022 Episodic Other circulatory disease (1 source) Vascular insufficiency; Translations: [Other disorder of circulatory system] 08-18-2023 Episodic Other connective tissue disease (9 sources) [...] [Other specified health status] Onset: 03-27-2023 Episodic Syncope (5 sources) Syncope and collapse; Translations: [Near syncope] Onset: 09-13-2022 Episodic Unclassified (1 source) Supraventricular tachycardia, unspecified; Translations: [Supraventricular tachycardia, unspecified] Onset: 05-08-2023 Results Test Name Value Interpretation Reference Range Facility PAT Antinuclear Antibodieson 12-11-2023 Antinuclear Abs, IFA Positive Critically abnormal . [facility] Comment on above: Result Comment: Nega tive <1:80 Borderline 1:80 Positive >1:80 Performed By: #### C REAT, ESR, CRP, HEPATIC, CK, CBC, MISC LAB #### [address] #### ANTI-KU AB, MITOM2, CH50, PAT, RNA POLYMR, C3, C4 #### [facility] , Note 1 Normal . [facility] Comment on above: Result Comment: Holly danielle Potential Disease Association Homogeneous Systemic Lupus Erythematosus, Drug Induced Systemic Lupus Erythematosus, Chronic Autoimmune hepatitis, Juvenile Idiopathic Arthritis Speckled Sjogren Syndrome, Systemic Lupus Erythematosus, Subacute Cutaneous Lupus, Lupus, Congenital Heart Block, Mixed Connective Tissue Disease, Scleroderma-diffuse, Scleroderma-Autoimmune Myositis Overlap Syndrome, Systemic Lupus Irjvqtxackzmk-Ippfzeqxcyb-Bdwlztcmhn Myositis Overlap Syndrome, Systemic Autoimmune Rheumatic Disease, [...] Linear Scleroderma, Antiphospholipid Syndrome Performed at: - [facility] [address] [id number] Insurance Policy Clerk: Breezy Jones PhD, Phone: [phone] Performed By: #### C REAT, ESR, CRP, HEPATIC, CK, CBC, MISC LAB #### [facility] [address] [place] [address] #### ANTI-KU AB, MITOM2, CH50, PAT, RNA POLYMR, C3, C4 #### [facility] , Speckled Pattern 1:80 Normal . [facility] Comment on above: Result Comment: ICAP nomenclature: [id number] Performed By: #### C REAT, ESR, CRP, HEPATIC, CK, CBC, MISC LAB #### [address] #### ANTI-KU AB, MITOM2, CH50, PAT, RNA POLYMR, C3, C4 #### [facility] , Alanine aminotransferase [En zymatic activity/volume] in Serum or PlasmaOrdered By: Cristóbal Casillas on 12-11-2023 ALT [Catalytic activity/Vol] 14 U/L Normal 7-52 [facility] Comment on above: Performed By: #### C REAT, ESR, CRP, HEPATIC, CK, CBC, [facility] #### [place] [address] [place] #### ANTI-KU AB, MITOM2, CH50, PAT, RNA POLYMR, C3, C4 #### [facility] , Albumin [Mass/volume] in Ser um or Plasma by Bromocresol green (BCG) dye binding methoOrdered By: Cristóbal Casillas on 12-11-2023 Albumin BCG dye [Mass/Vol] 5.0 g/dL 3.5-5.7 [facility] Alkaline phosphatase [Enzyma tic activity/volume] in Serum or PlasmaOrdered By: Cristóbal Casillas on 12-11-2023 ALP [Catalytic activity/Vol] 54 U/L Normal 34-104 [facility] Comment on above: Performed By: #### C REAT, ESR, CRP, HEPATIC, CK, CBC, [facility] #### [place] [address] [place] #### ANTI-KU AB, MITOM2, CH50, PAT, RNA POLYMR, C3, C4 #### [facility] , Anti-Ku Antibodyon Anti-Ku Antibody Negative Normal Negative [facility] Comment on above: Result Comment: This test was developed and its performance characteristics determined by [facility]. It has not been cleared or approved by the Food and Drug Administration. Performed at: [facility] [address] [place] [id number] Insurance Policy Clerk: Morteza Ambrocio MD, Phone: [phone] PERFORMED BY: [place] [address] PATHOLOGIST RIDE OPERATOR RUIZ CLIFTON M.D. Performed By: #### C REAT, ESR, CRP, HEPATIC, CK, CBC, MISC LAB #### [address] #### ANTI-KU AB, MITOM2, CH50, PAT, RNA POLYMR, C3, C4 #### [facility] , Aspartate aminotransferase [ Enzymatic activity/volume] in Serum or PlasmaOrdered By: Cristóbla Casillas on 12-11-2023 AST [Catalytic activity/Vol] 16 U/L Normal 13-39 [facility] Comment on above: Performed By: #### C REAT, ESR, CRP, HEPATIC, CK, CBC, MISC LAB #### [address] #### ANTI-KU AB, MITOM2, CH50, PAT, RNA POLYMR, C3, C4 #### [facility] , Automated basophil %Ordered By: Cristóbal Casillas on 12-11-2023 Basophils/100 WBC (Bld) 0.6 % Normal . [facility] Comment on above: Performed By: #### C REAT, ESR, CRP, HEPATIC, CK, CBC, MISC LAB #### [address] #### ANTI-KU AB, MITOM2, CH50, PAT, RNA POLYMR, C3, C4 #### [facility] , Automated basophil countOrde red By: Cristóbal Casillas on 12-11-2023 Basophils (Bld) [#/Vol] 0.1 10*3/uL Normal 0.0-0.2 [facility] Comment on above: Performed By: #### C REAT, ESR, CRP, HEPATIC, CK, CBC, MISC LAB #### [place] [address] [place] #### ANTI-KU AB, MITOM2, CH50, PAT, RNA POLYMR, C3, C4 #### [facility] , Automated blood monocyte cou ntOrdered By: Cristóbal Casillas on 12-11-2023 Monocytes (Bld) [#/Vol] 0.4 10*3/uL Normal 0.0-0.8 [facility] Comment on above: Performed By: #### C REAT, ESR, CRP, HEPATIC, CK, CBC, MISC LAB #### [place] [address] [place] #### ANTI-KU AB, MITOM2, CH50, PAT, RNA POLYMR, C3, C4 #### [facility] , Automated eosinophil %Ordere d By: Cristóbal Casillas on 12-11-2023 Eosinophils/100 WBC (Bld) 1.9 % Normal . [facility] Comment on above: Performed By: #### C REAT, ESR, CRP, HEPATIC, CK, CBC, MISC LAB #### [place] [address] [place] #### ANTI-KU AB, MITOM2, CH50, PAT, RNA POLYMR, C3, C4 #### [facility] , Automated eosinophil countOr dered By: Cristóbal Casillas on 12-11-2023 Eosinophils (Bld) [#/Vol] 0.2 10*3/uL Normal 0.0-0.45 [facility] Comment on above: Performed By: #### C REAT, ESR, CRP, HEPATIC, CK, CBC, MISC LAB #### [place] [address] [place] #### ANTI-KU AB, MITOM2, CH50, PAT, RNA POLYMR, C3, C4 #### [facility] , Automated monocyte %Ordered By: Cristóbal Casillas on 12-11-2023 Monocytes/100 WBC (Bld) 4.3 % Normal . [facility] Comment on above: Performed By: #### C REAT, ESR, CRP, HEPATIC, CK, CBC, MISC LAB #### [place] [address] [place] #### ANTI-KU AB, MITOM2, CH50, PAT, RNA POLYMR, C3, C4 #### [facility] , Automated neutrophil %Ordere d By: Cristóbal Casillas on 12-11-2023 Neutrophils/100 WBC (Bld) 71.2 % Normal . [facility] Comment on above: Performed By: #### C REAT, ESR, CRP, HEPATIC, CK, CBC, MISC LAB #### [facility] [address] [place] [address] [place] #### ANTI-KU AB, MITOM2, CH50, PAT, RNA POLYMR, C3, C4 #### [facility] , Bilirubin.direct [Mass/volum e] in Serum or PlasmaOrdered By: Cristóbal Casillas on 12-11-2023 Bilirubin.direct [Mass/Vol] 0.10 mg/dL 0.03-0.18 [facility] Bilirubin.total [Mass/volume ] in Serum or PlasmaOrdered By: Cristóbal Casillas on 12-11-2023 Bilirubin [Mass/Vol] 0.5 mg/dL Normal 0.3-1.0 [facility] Comment on above: Performed By: #### C REAT, ESR, CRP, HEPATIC, CK, CBC, MISC LAB #### [place] [address] [place] #### ANTI-KU AB, MITOM2, CH50, PAT, RNA POLYMR, C3, C4 #### [facility] , C reactive protein [Mass/vol ume] in Serum or PlasmaOrdered By: Cristóbal Casillas on 12-11-2023 CRP [Mass/Vol] < 0.5 mg/dL 0.0-0.5 [facility] C-Reactive Proteinon 024 CRP [Mass/Vol] mg/L Normal 0.0-0.5 [facility] Comment on above: Result Comment: PERF ORMED BY: [place] [address] PATHOLOGIST RIDE OPERATOR RUIZ CLIFTON M.D. Performed By: #### C REAT, ESR, CRP, HEPATIC, CK, CBC, MISC LAB #### [address] #### ANTI-KU AB, MITOM2, CH50, PAT, RNA POLYMR, C3, C4 #### [facility] , Complement C3on 12-11-2023 Complement C3 141 mg/dL Normal 82-167 [facility] Comment on above: Result Comment: Perf ormed at: - [facility] [address] [address] [id number] Insurance Policy Clerk: Breezy Jones PhD, Phone: [phone] Performed By: #### C REAT, ESR, CRP, HEPATIC, CK, CBC, MISC LAB #### [address] #### ANTI-KU AB, MITOM2, CH50, PAT, RNA POLYMR, C3, C4 #### [facility] , Complement C4on 12-11-2023 Complement C4 24 mg/dL Normal 12-38 [facility] Comment on above: Result Comment: PERF ORMED BY: [place] [address] PATHOLOGIST RIDE OPERATOR RUIZ CLIFTON M.D. Performed By: #### C REAT, ESR, CRP, HEPATIC, CK, CBC, MISC LAB #### [address] #### ANTI-KU AB, MITOM2, CH50, PAT, RNA POLYMR, C3, C4 #### [facility] , Complement Total (CH50)on Complement Total (CH50) >60 Normal >41 [facility] Comment on above: Result Comment: [...] out of range values. Performed at: - [facility] [id number] Insurance Policy Clerk: Breezy Jones PhD, Phone: [phone] PERFORMED BY: [place] [address] PATHOLOGIST RIDE OPERATOR RUIZ CLIFTON M.D. Performed By: #### C REAT, ESR, CRP, HEPATIC, CK, CBC, MISC LAB #### [place] [address] [place] #### ANTI-KU AB, MITOM2, CH50, PAT, RNA POLYMR, C3, C4 #### [facility] , Complete Blood Count Auto Di ffon 12-11-2023 Mean Corpuscular HGB Conc 33.3 g/dL Normal 32.0-35.0 [facility] Comment on above: Performed By: #### C REAT, ESR, CRP, HEPATIC, CK, CBC, MISC LAB #### [place] [address] [place] #### ANTI-KU AB, MITOM2, CH50, PAT, RNA POLYMR, C3, C4 #### [facility] , NRBC% 0.1 /100{WBC} Normal 0-0.5 [facility] Comment on above: Performed By: #### C REAT, ESR, CRP, HEPATIC, CK, CBC, MISC LAB #### [place] [address] [place] #### ANTI-KU AB, MITOM2, CH50, PAT, RNA POLYMR, C3, C4 #### [facility] , Creatine kinase [Enzymatic a ctivity/volume] in Serum or PlasmaOrdered By: Cristóbal Casillas on 12-11-2023 CK [Catalytic activity/Vol] 103 U/L Normal 30-223 [facility] Comment on above: Result Comment: PERF ORMED BY: [place] [address] PATHOLOGIST RIDE OPERATOR JIANLAN SUN M.D. Performed By: #### C REAT, ESR, CRP, HEPATIC, CK, CBC, MISC LAB #### [place] [address] [place] #### ANTI-KU AB, MITOM2, CH50, PAT, RNA POLYMR, C3, C4 #### [facility] , Creatinineon 12-11-2023 GFR/1.73 sq M.predicted MDRD (S/P/Bld) [Vol rate/Area] mL/min/{1.73_m2} Normal [facility] Comment on above: Performed By: #### C REAT, ESR, CRP, HEPATIC, CK, CBC, MISC LAB #### [place] [address] [place] #### ANTI-KU AB, MITOM2, CH50, PAT, RNA POLYMR, C3, C4 #### [facility] , Creatinine [Mass/volume] in Serum or PlasmaOrdered By: Cristóbal Casillas on 12-11-2023 Creatinine [Mass/Vol] 0.68 mg/dL Normal 0.60-1.20 [facility] Comment on above: Performed By: #### C REAT, ESR, CRP, HEPATIC, CK, CBC, MISC LAB #### [address] #### ANTI-KU AB, MITOM2, CH50, PAT, RNA POLYMR, C3, C4 #### [facility] , Erythrocyte Sedimentation Ra mert 12-11-2023 ESR (Bld) [Velocity] 35 mm/h High 0-19 [facility] Comment on above: Result Comment: PERF ORMED BY: [place] [address] PATHOLOGIST RIDE OPERATOR RUIZ CLIFTON M.D. Performed By: #### C REAT, ESR, CRP, HEPATIC, CK, CBC, MISC LAB #### [place] [address] [place] #### ANTI-KU AB, MITOM2, CH50, PAT, RNA POLYMR, C3, C4 #### [facility] , Erythrocyte distribution wid th [Ratio] by Automated countOrdered By: Cristóbal Casillas on 12-11-2023 Erythrocyte distribution width (RBC) [Ratio] 12.5 % Normal 11.9-15.3 [facility] Comment on above: Performed By: #### C REAT, ESR, CRP, HEPATIC, CK, CBC, MISC LAB #### [place] [address] [place] #### ANTI-KU AB, MITOM2, CH50, PAT, RNA POLYMR, C3, C4 #### [facility] , Erythrocyte sedimentation ra te by Photometric methodOrdered By: Cristóbal Casillsa on 12-11-2023 ESR Photometric method (Bld) [Velocity] 35 mm/hr 0-19 [facility] Erythrocytes [#/volume] in B lood by Automated countOrdered By: Cristóbal Casillas on 12-11-2023 RBC (Bld) [#/Vol] 4.94 10*6/uL Normal 3.60-5.00 [facility] Comment on above: Performed By: #### C REAT, ESR, CRP, HEPATIC, CK, CBC, MISC LAB #### [address] #### ANTI-KU AB, MITOM2, CH50, PAT, RNA POLYMR, C3, C4 #### [facility] , Hematocrit [Volume Fraction] of Blood by Automated countOrdered By: Cristóbal Casillas on 12-11-2023 Hematocrit (Bld) [Volume fraction] 44.8 % Normal 34.0-46.4 [facility] Comment on above: Performed By: #### C REAT, ESR, CRP, HEPATIC, CK, CBC, MISC LAB #### [place] [address] [place] #### ANTI-KU AB, MITOM2, CH50, PAT, RNA POLYMR, C3, C4 #### [facility] , Hemoglobin [Mass/volume] in BloodOrdered By: Cristóbal Casillas on 12-11-2023 Hemoglobin (Bld) [Mass/Vol] 14.9 g/dL Normal 11.8-15.4 [facility] Comment on above: Performed By: #### C REAT, ESR, CRP, HEPATIC, CK, CBC, MISC LAB #### [facility] [address] [place] [address] [place] #### ANTI-KU AB, MITOM2, CH50, PAT, RNA POLYMR, C3, C4 #### [facility] , Hepatic Panelon 12-11-2023 Albumin [Mass/Vol] 5.0 g/dL Normal 3.5-5.7 [facility] Comment on above: Performed By: #### C REAT, ESR, CRP, HEPATIC, CK, CBC, MISC LAB #### [facility] [address] [place] [address] [place] #### ANTI-KU AB, MITOM2, CH50, PAT, RNA POLYMR, C3, C4 #### [facility] , Bilirubin,Indirect 0.4 mg/dL Normal [facility] Comment on above: Performed By: #### C REAT, ESR, CRP, HEPATIC, CK, CBC, MISC LAB #### [place] [address] [place] #### ANTI-KU AB, MITOM2, CH50, PAT, RNA POLYMR, C3, C4 #### [facility] , Bilirubin.indirect [Mass/Vol] 0.10 mg/dL Normal 0.03-0.18 [facility] Comment on above: Performed By: #### C REAT, ESR, CRP, HEPATIC, CK, CBC, MISC LAB #### [facility] [address] [place] [address] [place] #### ANTI-KU AB, MITOM2, CH50, PAT, RNA POLYMR, C3, C4 #### [facility] , Leukocytes [#/volume] correc antoine for nucleated erythrocytes in Blood by Automated counOrdered By: Cristóbal Casillas on 12-11-2023 WBC corrected for nucl RBC Auto (Bld) [#/Vol] 10.4 10*3/uL 3.8-11.6 [facility] Leukocytes [#/volume] in Blo od by Automated countOrdered By: Cristóbal Casillas on 12-11-2023 WBC (Bld) [#/Vol] 10.4 10*3/uL Normal 3.8-11.6 [facility] Comment on above: Performed By: #### C REAT, ESR, CRP, HEPATIC, CK, CBC, MISC LAB #### [facility] [address] [place] [address] [place] #### ANTI-KU AB, MITOM2, CH50, PAT, RNA POLYMR, C3, C4 #### [facility] , Lymphocytes [#/volume] in Bl ood by Automated countOrdered By: Cristóbal Casillas on 12-11-2023 Lymphocytes (Bld) [#/Vol] 2.3 10*3/uL Normal 1.00-4.8 [facility] Comment on above: Performed By: #### C REAT, ESR, CRP, HEPATIC, CK, CBC, MISC LAB #### [facility] [address] [place] [address] [place] #### ANTI-KU AB, MITOM2, CH50, PAT, RNA POLYMR, C3, C4 #### [facility] , Lymphocytes/100 leukocytes i n Blood by Automated countOrdered By: Cristóbal Casillas on 12-11-2023 Lymphocytes/100 WBC (Bld) 22.0 % Normal . [facility] Comment on above: Performed By: #### C REAT, ESR, CRP, HEPATIC, CK, CBC, MISC LAB #### [facility] [address] [place] [address] [place] #### ANTI-KU AB, MITOM2, CH50, PAT, RNA POLYMR, C3, C4 #### [facility] , MCH [Entitic mass] by Automa antoine countOrdered By: Cristóbal Casillas on 12-11-2023 MCH (RBC) [Entitic mass] 30.2 pg Normal 24.7-34.3 [facility] Comment on above: Performed By: #### C REAT, ESR, CRP, HEPATIC, CK, CBC, MISC LAB #### [address] #### ANTI-KU AB, MITOM2, CH50, PAT, RNA POLYMR, C3, C4 #### [facility] , MCHC Auto (RBC) [Mass/Vol]Or dered By: Cristóbal Casillas on 12-11-2023 MCHC (RBC) [Mass/Vol] 33.3 g/dL 32.0-35.0 [facility] MCV [Entitic volume] by Auto mated countOrdered By: Cristóbal Casillas on 12-11-2023 MCV (RBC) [Entitic vol] 90.6 fL Normal 80-100 [facility] Comment on above: Performed By: #### C REAT, ESR, CRP, HEPATIC, CK, CBC, MISC LAB #### [address] #### ANTI-KU AB, MITOM2, CH50, PAT, RNA POLYMR, C3, C4 #### [facility] , MISC LABon 12-11-2023 MISC LAB Normal [facility] Comment on above: Order Comment: [facility] Test Name: TEST #[id number] TIF1 Result Comment: See report. Scanned copy available in EMR. PERFORMED BY: [place] [address] PATHOLOGIST RIDE OPERATOR RUIZ CLIFTON M.D. Performed By: #### C REAT, ESR, CRP, HEPATIC, CK, CBC, MISC LAB #### [address] #### ANTI-KU AB, MITOM2, CH50, PAT, RNA POLYMR, C3, C4 #### [facility] , Mitochondrial (M2) Antibodyo n 12-11-2023 Mitochondrial (M2) Antibody <20.0 Normal 0.0-20.0 [facility] Comment on above: Result Comment: Nega tive 0.0 - 20.0 Equivocal 20.1 - 24.9 Positive >24.9 Mitochondrial (M2) Antibodies are found in 90-96% of patients with primary biliary cirrhosis. Performed at: [address] [id number] Insurance Policy Clerk: Breezy Jones PhD, Phone: [phone] Performed By: #### C REAT, ESR, CRP, HEPATIC, CK, CBC, MISC LAB #### [address] #### ANTI-KU AB, MITOM2, CH50, PAT, RNA POLYMR, C3, C4 #### [facility] , Neutrophils [#/volume] in Bl ood by Automated countOrdered By: Cristóbal Casillas on 12-11-2023 Neutrophils (Bld) [#/Vol] 7.4 10*3/uL Normal 1.8-7.7 [facility] Comment on above: Performed By: #### C REAT, ESR, CRP, HEPATIC, CK, CBC, MISC LAB #### [address] #### ANTI-KU AB, MITOM2, CH50, PAT, RNA POLYMR, C3, C4 #### [facility] , No Panel InformationOrdered By: Cristóbal Casillas on 12-11-2023 Estimated GFR (CKD-EPI) > 60.0 mL/Min [facility] Creatinine Clearance (Chem N/A [facility] Nucleated erythrocytes [Pres ence] in Blood by Automated countOrdered By: rCistóbal Casillas on 12-11-2023 Nucleated RBC Auto Ql (Bld) 0.1 /100{WBC} 0-0.5 [facility] Platelet mean volume [Entiti c volume] in Blood by Automated countOrdered By: Cristóbal Casillas on 12-11-2023 Platelet mean volume (Bld) [Entitic vol] 8.8 fL Normal 6.3-10.7 [facility] Comment on above: Performed By: #### C REAT, ESR, CRP, HEPATIC, CK, CBC, MISC LAB #### [facility] [address] [place] [address] [place] #### ANTI-KU AB, MITOM2, CH50, PAT, RNA POLYMR, C3, C4 #### [facility] , Platelets [#/volume] in Bloo d by Automated countOrdered By: Cristóbal Casillas on 12-11-2023 Platelets (Bld) [#/Vol] 319 10*3/uL Normal 150-450 [facility] Comment on above: Performed By: #### C REAT, ESR, CRP, HEPATIC, CK, CBC, MISC LAB #### [facility] [address] [place] [address] #### ANTI-KU AB, MITOM2, CH50, PAT, RNA POLYMR, C3, C4 #### [facility] , Protein [Mass/volume] in Ser um or PlasmaOrdered By: Cristóbal Casillas on 12-11-2023 Protein [Mass/Vol] 8.1 g/dL Normal 6.4-8.9 [facility] Comment on above: Performed By: #### C REAT, ESR, CRP, HEPATIC, CK, CBC, MISC LAB #### [facility] [address] [place] [address] #### ANTI-KU AB, MITOM2, CH50, PAT, RNA POLYMR, C3, C4 #### [facility] , RNA Polymerase IIion 024 RNA Polymerase IIi <20 Normal <20 [facility] Comment on above: Result Comment: Nega tive: <20 Weak Positive: 20 - 39 Moderate Positive: 40 - 80 Strong Positive: >80 Performed at: [facility] [address] [place] [id number] Insurance Policy Clerk: Morteza Ambrocio MD, Phone: [phone] PERFORMED BY: [place] [address] PATHOLOGIST RIDE OPERATOR RUIZ CLIFTON M.D. Performed By: #### C REAT, ESR, CRP, HEPATIC, CK, CBC, MISC LAB #### [facility] [address] [place] [address] [place] #### ANTI-KU AB, MITOM2, CH50, PAT, RNA POLYMR, C3, C4 #### [facility] , Serum globulin measurement b y calculation (mass/volume)Ordered By: Cristóbal Casillas on 12-11-2023 Globulin (S) [Mass/Vol] 3.1 g/dL Normal [facility] Comment on above: Performed By: #### C REAT, ESR, CRP, HEPATIC, CK, CBC, MISC LAB #### [place] [address] [place] #### ANTI-KU AB, MITOM2, CH50, PAT, RNA POLYMR, C3, C4 #### [facility] , Serum or plasma albumin/glob ulin mass ratioOrdered By: Cristóbal Casillas on 12-11-2023 Albumin/Globulin [Mass ratio] 1.6 {ratio} Normal [facility] Comment on above: Performed By: #### C REAT, ESR, CRP, HEPATIC, CK, CBC, MISC LAB #### [place] [address] [place] #### ANTI-KU AB, MITOM2, CH50, PAT, RNA POLYMR, C3, C4 #### [facility] , Serum or plasma non-glucuron idated bilirubin measurement (mass/volume)Ordered By: Cristóbal Casillas on 12-11-2023 Bilirubin.indirect [Mass/Vol] 0.4 mg/dL [facility] Alanine aminotransferase [En zymatic activity/volume] in Serum or PlasmaOrdered By: Jane Tracey on 11-06-2023 ALT [Catalytic activity/Vol] 13 U/L Normal [facility] Comment on above: Performed By: #### C REAT, ESR, CRP, HEPATIC, CK, CBC, MISC LAB #### [place] [address] [place] #### ANTI-KU AB, MITOM2, CH50, PAT, RNA POLYMR, C3, C4 #### [facility] , Albumin [Mass/volume] in Ser um or PlasmaOrdered By: Jane AcevedoKatjadarleen on 11-06-2023 Albumin [Mass/Vol] 4.1 g/dL Normal 2.9-4.4 [facility] Comment on above: Performed By: #### C REAT, ESR, CRP, HEPATIC, CK, CBC, MISC LAB #### [facility] [address] [place] [address] [place] #### ANTI-KU AB, MITOM2, CH50, PAT, RNA POLYMR, C3, C4 #### [facility] , Albumin [Mass/volume] in Ser um or Plasma by Bromocresol green (BCG) dye binding methoOrdered By: lilia Tracey on 11-06-2023 Albumin BCG dye [Mass/Vol] 4.5 g/dL 3.5-5.7 [facility] Alkaline phosphatase [Enzyma tic activity/volume] in Serum or PlasmaOrdered By: lilia Tracey on 11-06-2023 ALP [Catalytic activity/Vol] 58 U/L Normal 34-104 [facility] Comment on above: Performed By: #### C REAT, ESR, CRP, HEPATIC, CK, CBC, MISC LAB #### [place] [address] [place] #### ANTI-KU AB, MITOM2, CH50, PAT, RNA POLYMR, C3, C4 #### [facility] , Aspartate aminotransferase [ Enzymatic activity/volume] in Serum or PlasmaOrdered By: lilia Tracey on 11-06-2023 AST [Catalytic activity/Vol] 17 U/L Normal 13-39 [facility] Comment on above: Performed By: #### C REAT, ESR, CRP, HEPATIC, CK, CBC, MISC LAB #### [place] [address] [place] #### ANTI-KU AB, MITOM2, CH50, PAT, RNA POLYMR, C3, C4 #### [facility] , Automated basophil %Ordered By: Jane Feldermaranda on 11-06-2023 Basophils/100 WBC (Bld) 0.7 % Normal . [facility] Comment on above: Performed By: #### C REAT, ESR, CRP, HEPATIC, CK, CBC, MISC LAB #### [facility] [address] [place] [address] #### ANTI-KU AB, MITOM2, CH50, PAT, RNA POLYMR, C3, C4 #### [facility] , Automated basophil countOrde red By: lilia Feldermaranda on 11-06-2023 Basophils (Bld) [#/Vol] 0.1 10*3/uL Normal 0.0-0.2 [facility] Comment on above: Result Comment: PERF ORMED BY: [place] [address] PATHOLOGIST RIDE OPERATOR RUIZ CLIFTON M.D. Performed By: #### C REAT, ESR, CRP, HEPATIC, CK, CBC, MISC LAB #### [address] #### ANTI-KU AB, MITOM2, CH50, PAT, RNA POLYMR, C3, C4 #### [facility] , Automated blood monocyte cou ntOrdered By: lilia Bradfordmaranda on 11-06-2023 Monocytes (Bld) [#/Vol] 0.5 10*3/uL Normal 0.0-0.8 [facility] Comment on above: Performed By: #### C REAT, ESR, CRP, HEPATIC, CK, CBC, [facility] #### [place] [address] [place] #### ANTI-KU AB, MITOM2, CH50, PAT, RNA POLYMR, C3, C4 #### [facility] , Automated eosinophil %Ordere d By: lilia Feldermaranda on 11-06-2023 Eosinophils/100 WBC (Bld) 2.3 % Normal . [facility] Comment on above: Performed By: #### C REAT, ESR, CRP, HEPATIC, CK, CBC, MISC LAB #### [facility] [address] [place] [address] [place] #### ANTI-KU AB, MITOM2, CH50, PAT, RNA POLYMR, C3, C4 #### [facility] , Automated eosinophil countOr dered By: Jane Tracey on 11-06-2023 Eosinophils (Bld) [#/Vol] 0.2 10*3/uL Normal 0.0-0.45 [facility] Comment on above: Performed By: #### C REAT, ESR, CRP, HEPATIC, CK, CBC, MISC LAB #### [facility] [address] [place] [address] [place] #### ANTI-KU AB, MITOM2, CH50, PAT, RNA POLYMR, C3, C4 #### [facility] , Automated monocyte %Ordered By: Jane Tracey on 11-06-2023 Monocytes/100 WBC (Bld) 5.5 % Normal . [facility] Comment on above: Performed By: #### C REAT, ESR, CRP, HEPATIC, CK, CBC, MISC LAB #### [facility] [address] [place] [address] [place] #### ANTI-KU AB, MITOM2, CH50, PAT, RNA POLYMR, C3, C4 #### [facility] , Automated neutrophil %Ordere d By: Jane Tracey on 11-06-2023 Neutrophils/100 WBC (Bld) 69.1 % Normal . [facility] Comment on above: Performed By: #### C REAT, ESR, CRP, HEPATIC, CK, CBC, MISC LAB #### [facility] [address] [place] [address] [place] #### ANTI-KU AB, MITOM2, CH50, PAT, RNA POLYMR, C3, C4 #### [facility] , Bilirubin.total [Mass/volume ] in Serum or PlasmaOrdered By: Jane Tracey on 11-06-2023 Bilirubin [Mass/Vol] 0.4 mg/dL Normal 0.3-1.0 [facility] Comment on above: Performed By: #### C REAT, ESR, CRP, HEPATIC, CK, CBC, MISC LAB #### [address] #### ANTI-KU AB, MITOM2, CH50, PAT, RNA POLYMR, C3, C4 #### [facility] , Calcium [Mass/volume] in Ser um or PlasmaOrdered By: lilia AbhilashBridgette on 11-06-2023 Calcium [Mass/Vol] 9.9 mg/dL Normal 8.6-10.3 [facility] Comment on above: Performed By: #### C REAT, ESR, CRP, HEPATIC, CK, CBC, MISC LAB #### [place] [address] [place] #### ANTI-KU AB, MITOM2, CH50, PTA, RNA POLYMR, C3, C4 #### [facility] , Carbon dioxide, total [Moles /volume] in Serum or PlasmaOrdered By: lilia AbhilashZully Condon on 11-06-2023 CO2 [Moles/Vol] 25.0 mmol/L Normal 21.0-31.0 [facility] Comment on above: Performed By: #### C REAT, ESR, CRP, HEPATIC, CK, CBC, MISC LAB #### [facility] [address] [place] [address] [place] #### ANTI-KU AB, MITOM2, CH50, PAT, RNA POLYMR, C3, C4 #### [facility] , Chloride [Moles/volume] in S caitlyn or PlasmaOrdered By: lilia AbhilashZullyKatjadarleen on 11-06-2023 Chloride [Moles/Vol] 102 mmol/L Normal 98-107 [facility] Comment on above: Performed By: #### C REAT, ESR, CRP, HEPATIC, CK, CBC, MISC LAB #### [facility] [address] [place] [address] #### ANTI-KU AB, MITOM2, CH50, PAT, RNA POLYMR, C3, C4 #### [facility] , Complete Blood Count Auto Di ffon 11-06-2023 Mean Corpuscular HGB Conc 33.7 g/dL Normal 32.0-35.0 [facility] Comment on above: Performed By: #### C REAT, ESR, CRP, HEPATIC, CK, CBC, MISC LAB #### [address] #### ANTI-KU AB, MITOM2, CH50, PAT, RNA POLYMR, C3, C4 #### [facility] , NRBC% 0.3 /100{WBC} Normal 0-0.5 [facility] Comment on above: Performed By: #### C REAT, ESR, CRP, HEPATIC, CK, CBC, MISC LAB #### [address] #### ANTI-KU AB, MITOM2, CH50, PAT, RNA POLYMR, C3, C4 #### [facility] , Comprehensive Metabolic Pane antione 11-06-2023 Albumin [Mass/Vol] 4.5 g/dL Normal 3.5-5.7 [facility] Comment on above: Performed By: #### C REAT, ESR, CRP, HEPATIC, CK, CBC, MISC LAB #### [place] [address] [place] #### ANTI-KU AB, MITOM2, CH50, PAT, RNA POLYMR, C3, C4 #### [facility] , Creatinine Clr Calc Pharmacy 118.57 Normal [facility] Comment on above: Performed By: #### C REAT, ESR, CRP, HEPATIC, CK, CBC, MISC LAB #### [place] [address] [place] #### ANTI-KU AB, MITOM2, CH50, PAT, RNA POLYMR, C3, C4 #### [facility] , GFR/1.73 sq M.predicted MDRD (S/P/Bld) [Vol rate/Area] mL/min/{1.73_m2} Normal [facility] Comment on above: Performed By: #### C REAT, ESR, CRP, HEPATIC, CK, CBC, MISC LAB #### [facility] [address] [place] [address] #### ANTI-KU AB, MITOM2, CH50, PAT, RNA POLYMR, C3, C4 #### [facility] , Creatinine [Mass/volume] in Serum or PlasmaOrdered By: Jane Tracey on 11-06-2023 Creatinine [Mass/Vol] 0.61 mg/dL Normal 0.60-1.20 [facility] Comment on above: Performed By: #### C REAT, ESR, CRP, HEPATIC, CK, CBC, MISC LAB #### [facility] [address] [place] [address] [place] #### ANTI-KU AB, MITOM2, CH50, PAT, RNA POLYMR, C3, C4 #### [facility] , Erythrocyte distribution wid th [Ratio] by Automated countOrdered By: Jane Condon on 11-06-2023 Erythrocyte distribution width (RBC) [Ratio] 12.3 % Normal 11.9-15.3 [facility] Comment on above: Performed By: #### C REAT, ESR, CRP, HEPATIC, CK, CBC, MISC LAB #### [facility] [address] [place] [address] [place] #### ANTI-KU AB, MITOM2, CH50, PAT, RNA POLYMR, C3, C4 #### [facility] , Erythrocytes [#/volume] in B lood by Automated countOrdered By: Jane Tracey on 11-06-2023 RBC (Bld) [#/Vol] 4.62 10*6/uL Normal 3.60-5.00 [facility] Comment on above: Performed By: #### C REAT, ESR, CRP, HEPATIC, CK, CBC, MISC LAB #### [facility] [address] [place] [address] [place] #### ANTI-KU AB, MITOM2, CH50, PAT, RNA POLYMR, C3, C4 #### [facility] , Folate [Mass/volume] in Seru m or PlasmaOrdered By: Jane Tracey on 11-06-2023 Folate [Mass/Vol] 23.0 ng/mL >5.9 [facility] Comment on above: Folate reference ran ge: >5.9 ng/mlThe WHO technical consultation on folate and vitamin [id number] has determined that folate concentrations lessthan 4 ng/ml are considered deficient. Free K+L LT Chains, Qn, Son 11-06-2023 Free [place] Light Chains, S 20.5 mg/L High 3.3-19.4 [facility] Comment on above: Performed By: #### C REAT, ESR, CRP, HEPATIC, CK, CBC, [facility] #### [address] #### ANTI-KU AB, MITOM2, CH50, PAT, RNA POLYMR, C3, C4 #### [facility] , Free [place] Light Chains, S 13.8 mg/L Normal 5.7-26.3 [facility] Comment on above: Performed By: #### C REAT, ESR, CRP, HEPATIC, CK, CBC, MISC LAB #### [place] [address] [place] #### ANTI-KU AB, MITOM2, CH50, PAT, RNA POLYMR, C3, C4 #### [facility] , [place]/Lambda Ratio, S 1.49 Normal 0.26-1.65 [facility] Comment on above: Result Comment: Perf ormed at: CB - [facility] [address] [id number] Insurance Policy Clerk: Breezy Jones PhD, Phone: [phone] PERFORMED BY: [place] [address] PATHOLOGIST RIDE OPERATOR RUIZ CLIFTON M.D. Performed By: #### C REAT, ESR, CRP, HEPATIC, CK, CBC, MISC LAB #### [address] #### ANTI-KU AB, MITOM2, CH50, PAT, RNA POLYMR, C3, C4 #### [facility] , Glucose [Mass/volume] in Ser um or PlasmaOrdered By: Jane Tracey on 11-06-2023 Glucose [Mass/Vol] 94 mg/dL Normal 70-100 [facility] Comment on above: ADA recommended refe rence rangeRandom Glucose Reference Range is dependent on time and content of last meal. Glucose of more than 200 mg/dL in a nonstressed, ambulatory subject supports the diagnosis of Diabetes Mellitus. Result Comment: [place] om Glucose Reference Range is dependent on time and content of last meal. Glucose of more than 200 mg/dL in a nonstressed, ambulatory subject supports the diagnosis of Diabetes Mellitus. ADA recommended reference range Performed By: #### C REAT, ESR, CRP, HEPATIC, CK, CBC, MISC LAB #### [place] [address] [place] #### ANTI-KU AB, MITOM2, CH50, PAT, RNA POLYMR, C3, C4 #### [facility] , Hematocrit [Volume Fraction] of Blood by Automated countOrdered By: Jane Condon on 11-06-2023 Hematocrit (Bld) [Volume fraction] 41.0 % Normal 34.0-46.4 [facility] Comment on above: Performed By: #### C REAT, ESR, CRP, HEPATIC, CK, CBC, MISC LAB #### [place] [address] [place] #### ANTI-KU AB, MITOM2, CH50, PAT, RNA POLYMR, C3, C4 #### [facility] , Hemoglobin [Mass/volume] in BloodOrdered By: Jane Tracey on 04-17-2024 Hemoglobin (Bld) [Mass/Vol] 13.8 g/dL Normal 11.8-15.4 [facility] Comment on above: Performed By: #### C REAT, ESR, CRP, HEPATIC, CK, CBC, MISC LAB #### [facility] [address] #### ANTI-KU AB, MITOM2, CH50, PAT, RNA POLYMR, C3, C4 #### [facility] , Immunoglobulin light chains. kappa.free [Mass/volume] in SerumOrdered By: lilia Tracey on 11-06-2023 Immunoglobulin light chains.kappa.free (S) [Mass/Vol] 20.5 mg/L 3.3-19.4 [facility] Immunoglobulin light chains. kappa.free/Immunoglobulin light chains.lambda.free [MassOrdered By: Jane Tracey on 11-06-2023 Immunoglobulin light chains.kappa.free/Immun oglobulin light chains.lambda.free (S) [Mass ratio] 1.49 0.26-1.65 [facility] Comment on above: Performed at: [address] Director: Breezy Jones PhD, Phone: [phone] Immunoglobulin light chains. lambda.free [Mass/volume] in Serum or PlasmaOrdered By: Jane Tracey on 11-06-2023 Immunoglobulin light chains.lambda.free [Mass/Vol] 13.8 mg/L 5.7-26.3 [facility] Leukocytes [#/volume] correc antoine for nucleated erythrocytes in Blood by Automated counOrdered By: Jane Tracey on 11-06-2023 WBC corrected for nucl RBC Auto (Bld) [#/Vol] 9.9 10*3/uL 3.8-11.6 [facility] Leukocytes [#/volume] in Blo od by Automated countOrdered By: Jane Tracey on 11-06-2023 WBC (Bld) [#/Vol] 9.9 10*3/uL Normal 3.8-11.6 [facility] Comment on above: Performed By: #### C REAT, ESR, CRP, HEPATIC, CK, CBC, MISC LAB #### [facility] [address] [place] [address] #### ANTI-KU AB, MITOM2, CH50, PAT, RNA POLYMR, C3, C4 #### [facility] , Lymphocytes [#/volume] in Bl ood by Automated countOrdered By: lilia Tracey on 11-06-2023 Lymphocytes (Bld) [#/Vol] 2.2 10*3/uL Normal 1.00-4.8 [facility] Comment on above: Performed By: #### C REAT, ESR, CRP, HEPATIC, CK, CBC, MISC LAB #### [address] #### ANTI-KU AB, MITOM2, CH50, PAT, RNA POLYMR, C3, C4 #### [facility] , Lymphocytes/100 leukocytes i n Blood by Automated countOrdered By: lilia Tracey on 11-06-2023 Lymphocytes/100 WBC (Bld) 22.4 % Normal . [facility] Comment on above: Performed By: #### C REAT, ESR, CRP, HEPATIC, CK, CBC, MISC LAB #### [address] #### ANTI-KU AB, MITOM2, CH50, PAT, RNA POLYMR, C3, C4 #### [facility] , MCH [Entitic mass] by Automa antoine countOrdered By: lilia Tracey on 11-06-2023 MCH (RBC) [Entitic mass] 29.9 pg Normal 24.7-34.3 [facility] Comment on above: Performed By: #### C REAT, ESR, CRP, HEPATIC, CK, CBC, MISC LAB #### [place] [address] [place] #### ANTI-KU AB, MITOM2, CH50, PAT, RNA POLYMR, C3, C4 #### [facility] , MCHC Auto (RBC) [Mass/Vol]Or dered By: Jane Tracey on 11-06-2023 MCHC (RBC) [Mass/Vol] 33.7 g/dL 32.0-35.0 [facility] MCV [Entitic volume] by Auto mated countOrdered By: Jane Tracey on 11-06-2023 MCV (RBC) [Entitic vol] 88.8 fL Normal 80-100 F [facility] Comment on above: Performed By: #### C REAT, ESR, CRP, HEPATIC, CK, CBC, [facility] #### [facility] [address] [place] [address] [place] #### ANTI-KU AB, MITOM2, CH50, PAT, RNA POLYMR, C3, C4 #### [facility] , Neutrophils [#/volume] in Bl ood by Automated countOrdered By: Jane Tracey on 11-06-2023 Neutrophils (Bld) [#/Vol] 6.8 10*3/uL Normal 1.8-7.7 [facility] Comment on above: Performed By: #### C REAT, ESR, CRP, HEPATIC, CK, CBC, [facility] #### [facility] [address] [place] [address] [place] #### ANTI-KU AB, MITOM2, CH50, PAT, RNA POLYMR, C3, C4 #### [facility] , No Panel InformationOrdered By: Jane Tracey on 11-06-2023 Estimated GFR (CKD-EPI) > 60.0 mL/Min [facility] Creatinine Clearance (Chem 118.57 [facility] Protein Electrophoresis M-Tomas Not observed g/dL Not Observed [facility] Protein Electrophoresis Note See comment . [facility] Comment on above: Protein electrophore sis scan will follow via computer,mail, or slurry worker delivery. Nucleated erythrocytes [Pres ence] in Blood by Automated countOrdered By: Jane Tracey on 11-06-2023 Nucleated RBC Auto Ql (Bld) 0.3 /100{WBC} 0-0.5 [facility] Platelet mean volume [Entiti c volume] in Blood by Automated countOrdered By: Jane Tracey on 11-06-2023 Platelet mean volume (Bld) [Entitic vol] 8.3 fL Normal 6.3-10.7 [facility] Comment on above: Performed By: #### C REAT, ESR, CRP, HEPATIC, CK, CBC, MISC LAB #### [facility] [address] [place] [address] [place] #### ANTI-KU AB, MITOM2, CH50, PAT, RNA POLYMR, C3, C4 #### [facility] , Platelets [#/volume] in Bloo d by Automated countOrdered By: Jane Tracey on 11-06-2023 Platelets (Bld) [#/Vol] 277 10*3/uL Normal 150-450 [facility] Comment on above: Performed By: #### C REAT, ESR, CRP, HEPATIC, CK, CBC, MISC LAB #### [place] [address] [place] #### ANTI-KU AB, MITOM2, CH50, PAT, RNA POLYMR, C3, C4 #### [facility] , Potassium [Moles/volume] in Serum or PlasmaOrdered By: Jane Tracey on 11-06-2023 Potassium [Moles/Vol] 4.2 mmol/L Normal 3.5-5.1 [facility] Comment on above: Performed By: #### C REAT, ESR, CRP, HEPATIC, CK, CBC, MISC LAB #### [facility] [address] [place] [address] [place] #### ANTI-KU AB, MITOM2, CH50, PAT, RNA POLYMR, C3, C4 #### [facility] , Protein Electrophoresis, Ser umon 11-06-2023 Ustgo-5-Fwxmuaby 0.2 g/dL Normal 0.0-0.4 [facility] Comment on above: Performed By: #### C REAT, ESR, CRP, HEPATIC, CK, CBC, MISC LAB #### [place] [address] [place] #### ANTI-KU AB, MITOM2, CH50, PAT, RNA POLYMR, C3, C4 #### [facility] , Kmnyk-2-Vebiaoqo 0.8 g/dL Normal 0.4-1.0 [facility] Comment on above: Performed By: #### C REAT, ESR, CRP, HEPATIC, CK, CBC, MISC LAB #### [address] #### ANTI-KU AB, MITOM2, CH50, PAT, RNA POLYMR, C3, C4 #### [facility] , Beta Globulin 1.1 g/dL Normal 0.7-1.3 [facility] Comment on above: Performed By: #### C REAT, ESR, CRP, HEPATIC, CK, CBC, MISC LAB #### [place] [address] [place] #### ANTI-KU AB, MITOM2, CH50, PAT, RNA POLYMR, C3, C4 #### [facility] , Gamma Globulin 1.0 g/dL Normal 0.4-1.8 [facility] Comment on above: Performed By: #### C REAT, ESR, CRP, HEPATIC, CK, CBC, MISC LAB #### [place] [address] [place] #### ANTI-KU AB, MITOM2, CH50, PAT, RNA POLYMR, C3, C4 #### [facility] , M-Tomas Not Observed Normal Not Observed [facility] Comment on above: Performed By: #### C REAT, ESR, CRP, HEPATIC, CK, CBC, MISC LAB #### [place] [address] [place] #### ANTI-KU AB, MITOM2, CH50, PAT, RNA POLYMR, C3, C4 #### [facility] , SPE-Note Normal . [facility] Comment on above: Result Comment: Prot ein electrophoresis scan will follow via computer, mail, or slurry worker delivery. Performed By: #### C REAT, ESR, CRP, HEPATIC, CK, CBC, MISC LAB #### [address] #### ANTI-KU AB, MITOM2, CH50, PAT, RNA POLYMR, C3, C4 #### [facility] , Protein [Mass/volume] in Ser um or PlasmaOrdered By: Jane Tracey on 11-06-2023 Protein [Mass/Vol] 7.3 g/dL Normal 6.4-8.9 [facility] Comment on above: Performed By: #### C REAT, ESR, CRP, HEPATIC, CK, CBC, MISC LAB #### [address] #### ANTI-KU AB, MITOM2, CH50, PAT, RNA POLYMR, C3, C4 #### [facility] , Protein [Mass/Vol] 7.2 g/dL Normal 6.0-8.5 [facility] Comment on above: Performed By: #### C REAT, ESR, CRP, HEPATIC, CK, CBC, MISC LAB #### [address] #### ANTI-KU AB, MITOM2, CH50, PAT, RNA POLYMR, C3, C4 #### [facility] , Serum globulin measurement ( mass/volume)Ordered By: Jane Tracey on 11-06-2023 Globulin (S) [Mass/Vol] 3.1 g/dL Normal 2.2-3.9 [facility] Comment on above: Performed By: #### C REAT, ESR, CRP, HEPATIC, CK, CBC, MISC LAB #### [place] [address] [place] #### ANTI-KU AB, MITOM2, CH50, PAT, RNA POLYMR, C3, C4 #### [facility] , Serum globulin measurement b y calculation (mass/volume)Ordered By: Jane Condon on 11-06-2023 Globulin (S) [Mass/Vol] 2.8 g/dL Normal [facility] Comment on above: Performed By: #### C REAT, ESR, CRP, HEPATIC, CK, CBC, MISC LAB #### [place] [address] [place] #### ANTI-KU AB, MITOM2, CH50, PAT, RNA POLYMR, C3, C4 #### [facility] , Serum or plasma albumin/glob ulin mass ratioOrdered By: Jane Tracey on 11-06-2023 Albumin/Globulin [Mass ratio] 1.6 {ratio} Normal [facility] Comment on above: Performed By: #### C REAT, ESR, CRP, HEPATIC, CK, CBC, MISC LAB #### [place] [address] [place] #### ANTI-KU AB, MITOM2, CH50, PAT, RNA POLYMR, C3, C4 #### [facility] , Albumin/Globulin [Mass ratio] 1.3 {ratio} Normal 0.7-1.7 [facility] Comment on above: Performed By: #### C REAT, ESR, CRP, HEPATIC, CK, CBC, MISC LAB #### [place] [address] [place] #### ANTI-KU AB, MITOM2, CH50, PAT, RNA POLYMR, C3, C4 #### [facility] , Serum or plasma alpha 1 glob ulin measurement by electrophoresis (mass/volume)Ordered By: Jane Tracey on 11-06-2023 Alpha 1 globulin Elph [Mass/Vol] 0.2 g/dL 0.0-0.4 [facility] Serum or plasma alpha 2 glob ulin measurement by electrophoresis (mass/volume)Ordered By: Jane Tracey on 11-06-2023 Alpha 2 globulin Elph [Mass/Vol] 0.8 g/dL 0.4-1.0 [facility] Serum or plasma anion gap de terminationOrdered By: Jane Tracey on 11-06-2023 Anion gap [Moles/Vol] 13.2 mmol/L Normal 6.0-15.0 [facility] Comment on above: Performed By: #### C REAT, ESR, CRP, HEPATIC, CK, CBC, MISC LAB #### [facility] [address] [place] [address] #### ANTI-KU AB, MITOM2, CH50, PAT, RNA POLYMR, C3, C4 #### [facility] , Serum or plasma beta globuli n measurement by electrophoresis (mass/volume)Ordered By: Jane Tracey on 11-06-2023 Beta globulin Elph [Mass/Vol] 1.1 g/dL 0.7-1.3 [facility] Serum or plasma gamma globul in measurement by electrophoresis (mass/volume)Ordered By: Jane Tracey on 11-06-2023 Gamma globulin Elph [Mass/Vol] 1.0 g/dL 0.4-1.8 [facility] Sodium [Moles/volume] in Ser um or PlasmaOrdered By: Jane Tracey on 11-06-2023 Sodium [Moles/Vol] 136 mmol/L Normal 136-145 [facility] Comment on above: Performed By: #### C REAT, ESR, CRP, HEPATIC, CK, CBC, MISC LAB #### [facility] [address] [place] [address] [place] #### ANTI-KU AB, MITOM2, CH50, PAT, RNA POLYMR, C3, C4 #### [facility] , Urea nitrogen [Mass/volume] in Serum or PlasmaOrdered By: Jane Tracey on 11-06-2023 Urea nitrogen [Mass/Vol] 9 mg/dL Normal 7-25 [facility] Comment on above: Performed By: #### C REAT, ESR, CRP, HEPATIC, CK, CBC, MISC LAB #### [address] #### ANTI-KU AB, MITOM2, CH50, PAT, RNA POLYMR, C3, C4 #### [facility] , Vit. B12/Folate Profileon Folate 23.0 ng/mL Normal >5.9 [facility] Comment on above: Result Comment: Astrid te reference range: >5.9 ng/ml The WHO technical consultation on folate and vitamin b12 deficiencies has determined that folate concentrations less than 4 ng/ml are considered deficient. PERFORMED BY: [place] [address] PATHOLOGIST RIDE OPERATOR RUIZ CLIFTON M.D. Performed By: #### C REAT, ESR, CRP, HEPATIC, CK, CBC, MISC LAB #### [address] #### ANTI-KU AB, MITOM2, CH50, PAT, RNA POLYMR, C3, C4 #### [facility] , Vitamin B12 ser/plasOrdered By: Jane Tracey on 11-06-2023 Cobalamin (Vitamin B12) [Mass/Vol] 353 pg/mL Normal 180-914 [facility] Comment on above: Performed By: #### C REAT, ESR, CRP, HEPATIC, CK, CBC, MISC LAB #### [address] #### ANTI-KU AB, MITOM2, CH50, PAT, RNA POLYMR, C3, C4 #### [facility] , BRIEF OP NOTon 09-05-2023 BRIEF OP NOT HNO ID: [id number] Author: SHIV HOLMAN MD Service: Radiology Author Type: Physician Type: Brief Op Note Filed: 09/05/2023 18:09 Note Text: Transjugular liver biopsy Please see dictated report under the Imaging tab in Chart Review. Shiv Holman MD Staff, Interventional Radiology Pager: [phone] 09/05/2023 6:09 PM Normal [facility] CBC W Auto Differential pane l (Bld)on 09-05-2023 Basophils (Bld) [#/Vol] 0.09 10*3/uL Normal <0.11 [facility] Comment on above: Order Comment: Speci men Type: BLOOD SPECIMEN Ordering Facility: [facility] Address: [address] [place] [address] Performed By: #### 3 4528-0 #### [facility] CLIA [id number] [address] [place] [address] [place] Basophils/100 WBC (Bld) 1.2 % Normal [facility] Comment on above: Order Comment: Speci men Type: BLOOD SPECIMEN Ordering Facility: [facility] Address: [address] [place] [address] Performed By: #### 3 4528-0 #### [facility] CLIA [id number] [address] [place] [address] [place] Differential cell count method Nom (Bld) Auto Normal [facility] Comment on above: Order Comment: Speci men Type: BLOOD SPECIMEN Ordering Facility: [facility] Address: [address] [place] [address] Performed By: #### 3 4528-0 #### [facility] CLIA [id number] [address] [place] [address] [place] Eosinophils (Bld) [#/Vol] 0.20 10*3/uL Normal <0.46 [facility] Comment on above: Order Comment: Speci men Type: BLOOD SPECIMEN Ordering Facility: [facility] Address: [address] [place] [address] Performed By: #### 3 4528-0 #### [facility] CLIA [id number] [address] [place] [address] [place] Eosinophils/100 WBC (Bld) 2.7 % Normal [facility] Comment on above: Order Comment: Speci men Type: BLOOD SPECIMEN Ordering Facility: [facility] Address: [address] Performed By: #### 3 4528-0 #### [facility] CLIA [id number] [address] [place] [address] [place] Erythrocyte distribution width (RBC) [Ratio] 12.3 % Normal 11.5-15.0 [facility] Comment on above: Order Comment: Speci men Type: BLOOD SPECIMEN Ordering Facility: [facility] Address: [address] Performed By: #### 3 4528-0 #### [facility] CLIA [id number] [address] [place] [address] [place] Hematocrit (Bld) [Volume fraction] 44.9 % Normal 36.0-46.0 [facility] Comment on above: Order Comment: Speci men Type: BLOOD SPECIMEN Ordering Facility: [facility] Address: [address] Performed By: #### 3 4528-0 #### [facility] CLIA [id number] [address] [place] [address] [place] Hemoglobin (Bld) [Mass/Vol] 14.6 g/dL Normal 11.5-15.5 [facility] Comment on above: Order Comment: Speci men Type: BLOOD SPECIMEN Ordering Facility: [facility] Address: [address] Performed By: #### 3 4528-0 #### [facility] CLIA [id number] [address] [place] [address] [place] Immature granulocytes (Bld) [#/Vol] 0.03 10*3/uL Normal <0.10 [facility] Comment on above: Order Comment: Speci men Type: BLOOD SPECIMEN Ordering Facility: [facility] Address: [address] [place], [place] [address] Performed By: #### 3 4528-0 #### [facility] CLIA [id number] [address] [place] [address] [place] Immature granulocytes/100 WBC (Bld) 0.4 % Normal [facility] Comment on above: Order Comment: Speci men Type: BLOOD SPECIMEN Ordering Facility: [facility] Address: [address] [place] [address] Performed By: #### 3 4528-0 #### [facility] CLIA [id number] [address] [place] [address] [place] Lymphocytes (Bld) [#/Vol] 2.00 10*3/uL Normal 1.00-4.00 [facility] Comment on above: Order Comment: Speci men Type: BLOOD SPECIMEN Ordering Facility: [facility] Address: [address] [place] [address] Performed By: #### 3 4528-0 #### [facility] CLIA [id number] [address] [place] [address] [place] Lymphocytes/100 WBC (Bld) 27.2 % Normal [facility] Comment on above: Order Comment: Speci men Type: BLOOD SPECIMEN Ordering Facility: [facility] Address: [address] [place] [address] Performed By: #### 3 4528-0 #### [facility] CLIA [id number] [address] [place] [address] [place] MCH (RBC) [Entitic mass] 31.5 pg Normal 26.0-34.0 [facility] Comment on above: Order Comment: Speci men Type: BLOOD SPECIMEN Ordering Facility: [facility] Address: [address] [place], [place] [address] Performed By: #### 3 4528-0 #### [facility] CLIA [id number] [address] [place] [address] [place] MCHC (RBC) [Mass/Vol] 32.5 g/dL Normal 30.5-36.0 [facility] Comment on above: Order Comment: Speci men Type: BLOOD SPECIMEN Ordering Facility: [facility] Address: [address] Performed By: #### 3 4528-0 #### [facility] CLIA [id number] [address] [place] [address] [place] MCV (RBC) [Entitic vol] 97.0 fL Normal 80.0-100.0 [facility] Comment on above: Order Comment: Speci men Type: BLOOD SPECIMEN Ordering Facility: [facility] Address: [address] Performed By: #### 3 4528-0 #### [facility] CLIA [id number] [address] [place] [address] [place] Monocytes (Bld) [#/Vol] 0.35 10*3/uL Normal <0.87 [facility] Comment on above: Order Comment: Speci men Type: BLOOD SPECIMEN Ordering Facility: [facility] Address: [address] [place], [place] [address] Performed By: #### 3 4528-0 #### [facility] CLIA [id number] [address] [place] [address] [place] Monocytes/100 WBC (Bld) 4.8 % Normal [facility] Comment on above: Order Comment: Speci men Type: BLOOD SPECIMEN Ordering Facility: [facility] Address: [address] [place] [address] Performed By: #### 3 4528-0 #### [facility] CLIA [id number] [address] [place] [address] [place] Neutrophils (Bld) [#/Vol] 4.69 10*3/uL Normal 1.45-7.50 [facility] Comment on above: Order Comment: Speci men Type: BLOOD SPECIMEN Ordering Facility: [facility] Address: [address] [place], [place] [address] Performed By: #### 3 4528-0 #### [facility] CLIA [id number] [address] [place] [address] [place] Neutrophils/100 WBC (Bld) 63.7 % Normal [facility] Comment on above: Order Comment: Speci men Type: BLOOD SPECIMEN Ordering Facility: [facility] Address: [address] [place], [place] [address] Performed By: #### 3 4528-0 #### [facility] CLIA [id number] [address] [place] [address] [place] Nucleated RBC (Bld) [#/Vol] 10*3/uL Normal <0.01 [facility] Comment on above: Order Comment: Speci men Type: BLOOD SPECIMEN Ordering Facility: [facility] Address: [address] [place], [place] [address] Performed By: #### 3 4528-0 #### [facility] CLIA [id number] [address] [place] [address] [place] Nucleated RBC/100 WBC (Bld) [Ratio] 0.0 /100 WBC Normal [facility] Comment on above: Order Comment: Speci men Type: BLOOD SPECIMEN Ordering Facility: [facility] Address: [address] [place] [address] Performed By: #### 3 4528-0 #### [facility] CLIA [id number] [address] [place] [address] [place] Platelet mean volume (Bld) [Entitic vol] 9.8 fL Normal 9.0-12.7 [facility] Comment on above: Order Comment: Speci men Type: BLOOD SPECIMEN Ordering Facility: [facility] Address: [address] [place] [address] Performed By: #### 3 4528-0 #### [facility] CLIA [id number] [address] [id number] [address] [place] Platelets (Bld) [#/Vol] 356 10*3/uL Normal 150-400 [facility] Comment on above: Order Comment: Speci men Type: BLOOD SPECIMEN Ordering Facility: [facility] Address: [address] [place], [place] [address] Performed By: #### 3 4528-0 #### [facility] CLIA [id number] [address] [place] [address] [place] RBC (Bld) [#/Vol] 4.63 10*6/uL Normal 3.90-5.20 [facility] Comment on above: Order Comment: Speci men Type: BLOOD SPECIMEN Ordering Facility: [facility] Address: [address] [place], [place] [address] Performed By: #### 3 4528-0 #### [facility] CLIA [id number] [address] [place] [address] [place] WBC (Bld) [#/Vol] 7.36 10*3/uL Normal 3.70-11.00 [facility] Comment on above: Order Comment: Speci men Type: BLOOD SPECIMEN Ordering Facility: [facility] Address: [address] [place] [address] Performed By: #### 3 4528-0 #### [facility] CLIA [id number] [address] [place] [address] [place] Comprehensive metabolic 2000 panelon 09-05-2023 Albumin [Mass/Vol] 4.7 g/dL Normal 3.9-4.9 [facility] Comment on above: Order Comment: Speci men Type: BLOOD SPECIMENOrdering Facility: [facility] Address: [address] [place] [address] Performed By: #### 2 4323-8 ####[facility] [id number] [place] [address] [place] ALP [Catalytic activity/Vol] 57 U/L Normal 34-123 [facility] Comment on above: Order Comment: Speci men Type: BLOOD SPECIMENOrdering Facility: [facility] Address: [address] [place] [id number] Performed By: #### 2 4323-8 ####[facility] [id number] [place] [id number] [place] ALT [Catalytic activity/Vol] 20 U/L Normal 7-38 [facility] Comment on above: Order Comment: Speci men Type: BLOOD SPECIMENOrdering Facility: [facility] Address: [address] [place] [address] Performed By: #### 2 4323-8 ####[facility] [id number] [place] [address] [place] Anion gap [Moles/Vol] 10 mmol/L Normal 9-18 [facility] Comment on above: Order Comment: Speci men Type: BLOOD SPECIMENOrdering Facility: [facility] Address: [address] [place] [address] Performed By: #### 2 4323-8 ####[facility] [id number] [place] [address] [place] AST [Catalytic activity/Vol] 21 U/L Normal 13-35 [facility] Comment on above: Order Comment: Speci men Type: BLOOD SPECIMENOrdering Facility: [facility] Address: [address] [place], [place] [address] Performed By: #### 2 4323-8 ####[facility] [id number] [place] [id number] [place] Bilirubin [Mass/Vol] 0.4 mg/dL Normal 0.2-1.3 [facility] Comment on above: Order Comment: Speci men Type: BLOOD SPECIMENOrdering Facility: [facility] Address: [address] [place], [place] [address] Performed By: #### 2 4323-8 ####[facility] [id number] [place] [address] [place] Calcium [Mass/Vol] 10.3 mg/dL High 8.5-10.2 [facility] Comment on above: Order Comment: Speci men Type: BLOOD SPECIMENOrdering Facility: [facility] Address: [address] [place] [address] Performed By: #### 2 4323-8 ####[facility] LABCLIA [id number] [place] [address] [place] Chloride [Moles/Vol] 104 mmol/L Normal 97-105 [facility] Comment on above: Order Comment: Speci men Type: BLOOD SPECIMENOrdering Facility: [facility] Address: [address] [place] [address] Performed By: #### 2 4323-8 ####[facility] LABCLIA [id number] [place] [address] [place] CO2 [Moles/Vol] 25 mmol/L Normal 22-30 [facility] Comment on above: Order Comment: Speci men Type: BLOOD SPECIMENOrdering Facility: [facility] Address: [address] [place] [address] Performed By: #### 2 4323-8 ####[facility] LABCLIA [id number] [place] [address] [place] Creatinine [Mass/Vol] 0.66 mg/dL Normal 0.58-0.96 [facility] Comment on above: Order Comment: Speci men Type: BLOOD SPECIMENOrdering Facility: [facility] Address: [address] [place] [address] Performed By: #### 2 4323-8 ####[facility] LABCLIA [id number] [place] [address] [place] Creatinine and Glomerular filtration rate.predicted panel (S/P/Bld) 123 mL/min/1.73m??? Normal >=60 [facility] Comment on above: Order Comment: Jim etienne Type: BLOOD SPECIMENOrdering Facility: [facility] Address: [address] [place] [address] Result Comment: Ebony mated Glomerular Filtration Rate [...] actual GFR. Performed By: #### 2 4323-8 ####[facility] LABIA [id number] [place] [address] [place] Glucose [Mass/Vol] 105 mg/dL High 74-99 [facility] Comment on above: Order Comment: Jim etienne Type: BLOOD SPECIMENOrdering Facility: [facility] Address: [address] [place] [address] Result Comment: The [place] Diabetes Association (ADA) provides guidance for cutoff [...] Standards of Medical Care in Diabetes 2016, [place] [employer] Association. Diabetes Care. 2016.39(Suppl 1). Performed By: #### 2 4323-8 ####[facility] LABIA [id number] [place] [address] [place] Potassium [Moles/Vol] 4.7 mmol/L Normal 3.7-5.1 [facility] Comment on above: Order Comment: Jim etienne Type: BLOOD SPECIMENOrdering Facility: [facility] Address: [address] [place] [address] Performed By: #### 2 4323-8 ####[facility] LABCLIA [id number] [place] [address] [place] Protein [Mass/Vol] 8.0 g/dL Normal 6.3-8.0 [facility] Comment on above: Order Comment: Speci men Type: BLOOD SPECIMENOrdering Facility: [facility] Address: [address] [place] [address] Performed By: #### 2 4323-8 ####[facility] LABCLIA [id number] [place] [address] [place] Sodium [Moles/Vol] 139 mmol/L Normal 136-144 [facility] Comment on above: Order Comment: Speci men Type: BLOOD SPECIMENOrdering Facility: [facility] Address: [address] [place] [address] Performed By: #### 2 4323-8 ####[facility] LABCLIA [id number] [place] [address] [place] Urea nitrogen [Mass/Vol] 7 mg/dL Normal 7-21 [facility] Comment on above: Order Comment: Speci men Type: BLOOD SPECIMENOrdering Facility: [facility] Address: [address] [place] [address] Performed By: #### 2 4323-8 ####[facility] LABCLIA [id number] [place] [id number] [place] HISTORY PHYSICALon HISTORY PHYSICAL HNO ID: [id number] Author: SHIV HOLMAN MD Service: Radiology Author [...] September 05, 2023 TIME: 4:30 PM Normal [facility] IR TRANSJUG LIVER BX W/PRESS on 09-05-2023 IR TRANSJUG LIVER BX W/PRESS * * *Final Report* * * DATE OF EXAM: Sep 05 2023 5:37PM [facility] 0808 - IR TRANSJUG LIVER BX [...] and procedure-specific equipment needs. Start of procedure: 170 End of procedure: 173 Patient position: Supine Preparation: The site was [...] performed by the attending radiologist, without an healthcare administrative assistant. The attending radiologist performed the following procedural activities: Entire procedure IMPRESSION: TRANSJUGULAR LIVER BIOPSY OBTAINED. THE CORRECTED (more content not included)... Normal [facility] NURSING PROGon 09-05-2023 NURSING PROG HNO ID: [id number] Author: LORI VAZQUEZ, BREE Service: ? Author Type: Registered Nurse Type: Nursing Progress Note Filed: 09/05/2023 19:56 Note Text: 1939 Dr. Kern at bedside to assess pt. Abd soft, no c/o pain. Ok to d/c at 1999. Lori Vazquez RN Normal [facility] PT EDon 09-05-2023 PT ED HNO ID: [id number] Author: ANISHA MASON RN Service: Nursing Author [...] RN In Department: HOSP MAIN FB36 Normal [facility] PT panel Coag (PPP)on 2023 INR Coag (PPP) [Relative time] 1.0 {INR} Normal 0.9-1.3 [facility] Comment on above: Order Comment: Speci men Type: BLOOD SPECIMEN Ordering Facility: [facility] Address: [address] [place] [phone] Result Comment: Adrienne min K Antagonist (VKA) Therapeutic Range: INR 2 to 3 (Target INR of 2.5) Note: For patients treated with VKA drugs, such as warfarin, the [place] [employer] 2012 Guideline recommends [...] Chest 2012, 141:7S-47S Mamadou RA, et al. [facility] 2017, 70: 252-289 Performed By: #### 3 4528-0 #### [facility] LAB IA [id number] [address] [place] [address] [place] PT Coag (PPP) [Time] 10.9 s Normal 9.7-13.0 [facility] Comment on above: Order Comment: Speci men Type: BLOOD SPECIMEN Ordering Facility: [facility] Address: [address] [place] [address] Performed By: #### 3 4528-0 #### [facility] LAB IA [id number] [address] [place] [address] [place] NURSING PROGon 08-29-2023 NURSING PROG HNO ID: [id number] Author: MARSHAL POZO RN Service: Nursing Author Type: Registered Nurse Type: Nursing Progress Note Filed: 08/29/2023 10:50 Note Text: Pre-procedure instructions: Contacted Rica and confirmed appt. for TJL Biopsy scheduled on September 05, at [facility]. I will wait while you get [...] be drawn prior to 09/05 at any [facility]. If the labs are drawn same day as procedure, please report to J1-4 or S-15, 1 hour prior to arrival time to ensure they are resulted by your scheduled start time. Arrival: Please bring your Photo ID and Insurance Card. A general consent may need to be signed. Arrival at 1:45pm to desk QB-1 ([facility]) and check in for your procedure. 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 Private car. If you will be arriving at [facility] via ambulance or public transportation, please call to discuss. You will need a responsible adult to accompany you to and from the procedure. Your jinrikisha driver is required to stay with you until you are taken into the Procedure room. If you develop any of the following symptoms before your procedure, please call [phone]. Chills, joint pain, rash, sore throat, cough, [...] discuss. Written instructions provided to patient via Aunt Bertha If you have any questions please call [phone] ___ Normal [facility] Uzma 08-13-2023 ANDREAN Telephone (Prote[employer]) -------- RICA STOUT ([id number]) 1995 F Date Time Provider Department 08/13/23 JOEL NOE During your visit today, we [...] Encounter Status:Closed by JOEL NOE on 08/13/23 [facility] CNYASMINEon 08-08-2023 CNOV Office Visit (PATRICK ) -------- RICA STOUT ([id number]) 1995 F Date Time Provider Department 08/08/23 [...] Araujo CNP, Patient's Name: Rica Stout [address] [place] [address] Accompanied by: mother This consult was requested for my medical opinion regarding the rheumatologic evaluation of the patient's rash/+PAT problems, and my final recommendations will be communicated to the requesting health care provider by way of the shared medical record for internal providers or letter via the [employer] for external providers. 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 Normal [facility] NURSING PROGon 07-23-2023 NURSING PROG HNO ID: [id number] Author: Dipti Garza RN Service: Nursing Author Type: Registered Nurse Type: Nursing Progress Note Filed: 07/23/2023 3:49 PM Note Text: Pre-procedure instructions: Contacted Rica and confirmed appt. for transjugular liver biopsy scheduled on Saturday, 07/30, at [facility]. I will wait while you get [...] be drawn prior to 07/30 at any [facility]. If the labs are drawn same day as procedure, please report to J1-4 or S-15, 3 hours prior to procedure start time (11:30 AM) to ensure they are resulted by your scheduled start time. Arrival: Please bring your Photo ID and Insurance Card. A general consent may need to be signed. Arrival at 1:00 PM to desk B-1 ([facility]) and check in for your procedure. 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 Private car. If you will be arriving at [facility] via ambulance or public transportation, please call to discuss. You will need a responsible adult to accompany you to and from the procedure. Your jinrikisha driver is required to stay with you until you are taken into the Procedure room. If you develop any of the following symptoms before your procedure, please call [phone]. Chills, joint pain, rash, sore throat, cough, [...] discuss. Written instructions provided to patient via Aunt Bertha If you have any questions please call [phone] ___ Normal [facility] Provider Letteron 07-18-2023 Provider Letter (Inserted Image. Mercedes ble to display) July 18, 2023 RICA STOUT [address] [place] [address] : 1995 Dear Rica, During review of your medical record we noticed that a follow up appointment was not scheduled. We have attempted to reach you to schedule a appointment with [facility]. Please call our office today to schedule this appointment. Sincerely, [employer] [facility] [phone] Normal [facility] Office Visiton 07-09-2023 Follow-up visit [id number] Louis Stout 1995 F Date Provider Department Center 07/09/2023 NETTIE MARTE Family History Problem Relation Age of Onset Coronary artery disease Maternal Grandmother Peripheral vascular disease Maternal Grandmother Hypertension Paternal Grandmother Atrial fibrillation Paternal Grandmother Family Status - Relation Status Age at Maternal Grandmother Paternal Grandmother Level of Service:72127 RI OFFICE/OUTPATIENT NEW MODERATE MDM 45 MINUTES Normal [facility] Cryoglobulin with Quant Refl exon 07-03-2023 Cryoglobulin, Ql, Serum Normal None detected [facility] Comment on above: Result Comment: None Detected at 72 hours This test was developed and its performance characteristics determined by [facility]. It has not been cleared or approved by the Food and Drug Administration. Performed at: - [facility] [place] [address] [place], [place] [id number] Insurance Policy Clerk: Breezy Jones PhD, Phone: [phone] PERFORMED BY: [place] [address] PATHOLOGIST RIDE OPERATOR RUIZ CLIFTON M.D. Performed By: #### C REAT, ESR, CRP, HEPATIC, CK, CBC, MISC LAB #### [facility] [address] [place] [address] #### ANTI-KU AB, MITOM2, CH50, PAT, RNA POLYMR, C3, C4 #### [facility] , IgA [Mass/volume] in Serum o r PlasmaOrdered By: [facility] Alexy on 07-03-2023 IgA [Mass/Vol] 473 mg/dL 87-352 [facility] IgG [Mass/volume] in Serum o r PlasmaOrdered By: [facility] darleen on 07-03-2023 IgG [Mass/Vol] 1101 mg/dL 586-1602 [facility] IgM [Mass/volume] in Serum o r PlasmaOrdered By: [facility] Alexy on 07-03-2023 IgM [Mass/Vol] 315 mg/dL 26-217 [facility] Comment on above: Performed at: CB - [facility] [id number] [place], [place] [id number] Director: Breezy Jones PhD, Phone: [phone] Immunofixation,Serumon 07-03 Immunofixation, Serum Normal . [facility] Comment on above: Result Comment: No m onoclonality detected. Performed By: #### C REAT, ESR, CRP, HEPATIC, CK, CBC, MISC LAB #### [place] [address] [place] #### ANTI-KU AB, MITOM2, CH50, PAT, RNA POLYMR, C3, C4 #### [facility] , Immunoglobulin A, Serum 473 mg/dL High 87-352 [facility] Comment on above: Performed By: #### C REAT, ESR, CRP, HEPATIC, CK, CBC, MISC LAB #### [facility] [address] [place] [address] [place] #### ANTI-KU AB, MITOM2, CH50, PAT, RNA POLYMR, C3, C4 #### [facility] , Immunoglobulin G 1101 mg/dL Normal 586-1602 [facility] Comment on above: Performed By: #### C REAT, ESR, CRP, HEPATIC, CK, CBC, MISC LAB #### [place] [address] [place] #### ANTI-KU AB, MITOM2, CH50, PAT, RNA POLYMR, C3, C4 #### [facility] , Immunoglobulin M, Serum 315 mg/dL High 26-217 [facility] Comment on above: Result Comment: Perf ormed at: - [facility] [place] [id number] Insurance Policy Clerk: Breezy Jones PhD, Phone: [phone] Performed By: #### C REAT, ESR, CRP, HEPATIC, CK, CBC, MISC LAB #### [facility] [address] [place] [address] [place] #### ANTI-KU AB, MITOM2, CH50, PAT, RNA POLYMR, C3, C4 #### [facility] , No Panel InformationOrdered By: Jane Tracey on 07-03-2023 Serum Immunofixation See comment . [facility] Comment on above: No monoclonality det ected. Whole Blood Zinc 606 ug/dL 440-860 [facility] Comment on above: This test was develo ped and its performance characteristicsdetermined by [facility]. It has not been cleared orapproved by the Food and Drug Administration.Performed at: [address] [id number] Director: Lisa Ramos MD, Phone: [phone] Serum cryoglobulin detection Ordered By: Jane Tracey on 07-03-2023 Cryoglobulin Ql (S) See comment None detected [facility] Comment on above: None Detected at 72 hoursThis test was developed and its performance characteristicsdetermined by [facility]. It has not been cleared orapproved by the Food and Drug Administration.Performed at: [address] [id number] Director: Breezy Jones PhD, Phone: [phone] Zinc, Whole Bloodon 07-03-20 23 Zinc, Whole Blood 606 ug/dL Normal 440-860 [facility] Comment on above: Result Comment: This test was developed and its performance characteristics determined by [facility]. It has not been cleared or approved by the Food and Drug Administration. Performed at: [address] [id number] Insurance Policy Clerk: Lisa Ramos MD, Phone: [phone] Performed By: #### C REAT, ESR, CRP, HEPATIC, CK, CBC, MISC LAB #### [address] #### ANTI-KU AB, MITOM2, CH50, PAT, RNA POLYMR, C3, C4 #### [facility] , Activated partial thrombopla stin time (aPTT) in platelet poor plasma by coagulation aOrdered By: Jane Tracey on 06-12-2023 aPTT Coag (PPP) [Time] 28.5 s 25.1-36.5 [facility] Comment on above: A hematocrit value g reater than 55% may lead to inaccurate results in coagulation testing. Patients having hematocrit values >55% require a special collection tube for coagulation studies. Please contact the laboratory at [phone] guided bone marrow bx/asp iron 06-12-2023 CT guided bone marrow bx/aspir [facility] Main [place] [address] [place] [address] CT Scan Report Signed Patient: Rica Stout MR#: [id number] : 1995 Acct:[id number] Age/Sex: 27 / F ADM Date: 06/12/23 Loc: CT Room: Type: [facility] Attending Dr: Jane Tracey MD Copies to: Jane Tracey MD Ordering Provider: Jane Tracey MD Date of Service: 06/12/23 CT/CT guided needle placement: bone marrow biopsy ([id number]) CT/CT guided bone marrow bx/aspir: . CT [...] biopsy. Impression dictated by: Marc Barahona Jr., D.OAngel06/12/2023 1:18 PM Dictation Location: [place] [address] Transcribed By: [facility] 06/12/231317 Dictated By: Marc Barahona Jr, DO 06/12/231317 Signed By: 06/12/231317 Normal [facility] Coagulation Profileon 2022 aPTT Coag (Bld) [Time] 28.5 s Normal 25.1-36.5 [facility] Comment on above: Order Comment: NEED FOR CT GUIDED BIOPSY Result Comment: A he matocrit value greater than 55% may lead to inaccurate results in coagulation testing. Patients having hematocrit values >55% require a special collection tube for coagulation studies. Please contact the laboratory at [phone] for redraw instructions. PERFORMED BY: [place] [id number] PATHOLOGIST RIDE OPERATOR RUIZ CLIFTON M.D. Performed By: #### C REAT, ESR, CRP, HEPATIC, CK, CBC, MISC LAB #### [address] #### ANTI-KU AB, MITOM2, CH50, PAT, RNA POLYMR, C3, C4 #### [facility] , INR in Platelet poor plasma by Coagulation assayOrdered By: Jane Tracey on 06-12-2023 INR Coag (PPP) [Relative time] 1.1 {INR} Normal [facility] Comment on above: INR Therapeutic Rang [...] CRP, HEPATIC, CK, CBC, MISC LAB #### [place] [id number] [place] #### ANTI-KU AB, MITOM2, CH50, PAT, RNA POLYMR, C3, C4 #### [facility] , Antione 06-12-2023 L ---- Specimen: [id number] Received: 06/12/23 Status: VIKASH Hess Num: [id number] Spec Type: Bone Marro Subm Dr: Marc [...] Account Attending Physician Rica Stout 27/F CT [id number] Jane Tracey MD SPEC NUM: [id number] RECD: 06/12/23 STATUS: VIKASH HESS NUM: [id number] LAURIE: 06/12/23- DR: Marc Barahona Jr, DO ENTERED: 06/12/23 [facility] DR: Jane Tracey MD SPEC TYPE: Bone [...] is No diagnostic immunophenotypic abnormalities detected Specimen: [id number] Received: 06/12/23 Status: VIKASH Hess Num: [id number] Spec Type: Bone Marro Subm Dr: Marc Barahona Jr, DO Tissues: A Bone Marrow Aspirate (Clot) (RT ILIAC) B Bone Marrow Biopsy/Core (RT ILIAC) Procedures: Reticulum I, Peripheral Smr/2, Iron/3, HE/4, Gross/Micro L4/2, Bm Smear/2, CD138/2, CD20, CD3, CD31, CD34, CD68, E CADHERIN, Decalcification, PAS - Hemat, Bone Marrow TP, GIEMSA STN/5, SMEARS Patient: Rica Stout [id number] (Continued) Specimen: [id number] Received: 06/12/23 (Continued) Pathological Diagnosis (Continued) Signed (signature on file) Dylan Call MD 06/22/23 1844 Specimen: [id number] Received: 06/12/23 Status: VIKASH Hess Num: [id number] Spec Type: Bone Marro Subm Dr: Marc Barahona Jr, DO Tissues: A Bone Marrow Aspirate (Clot) (RT ILIAC) B Bone Marrow Biopsy/Core (RT ILIAC) Procedures: Reticulum I, Peripheral Smr/2, Iron/3, HE/4, Gross/Micro L4/2, Bm Smear/2, CD138/2, CD20, CD3, CD31, CD34, CD68, E CADHERIN, Decalcification, PAS - Hemat, Bone Marrow TP, GIEMSA STN/5, SMEARS Patient: GabrielajessicahellenRica Baker [id number] (Continued) Specimen: [id number] Received: 06/12/23 (Continued) Pathological [...] cyt (more content not included)... Normal [facility] Platelets [#/volume] in Bloo d by Automated countOrdered By: Jane Trcaey on 06-12-2023 Platelets (Bld) [#/Vol] 269 10*3/uL Normal 150-450 [facility] Comment on above: Result Comment: PERF ORMED BY: [facility] [address] [place] [address] PATHOLOGIST RIDE OPERATOR RUIZ CLIFTON M.D. Performed By: #### C REAT, ESR, CRP, HEPATIC, CK, CBC, [facility] #### [facility] [address] [place] [id number] [facility] #### ANTI-KU AB, MITOM2, CH50, PAT, RNA POLYMR, C3, C4 #### [facility] , Prothrombin time (PT)Ordered By: Jane Tracey on 06-12-2023 PT Coag (PPP) [Time] 13.0 s High 9.0-12.9 [facility] Comment on above: A hematocrit value g reater than 55% may lead to inaccurate results in coagulation testing. Patients having hematocrit values >55% require a special collection tube for coagulation studies. Please contact the laboratory at [phone] for redraw instructions. Order Comment: NEED FOR CT GUIDED BIOPSY Result Comment: A he matocrit value greater than 55% may lead to inaccurate results in coagulation testing. Patients having hematocrit values >55% require a special collection tube for coagulation studies. Please contact the laboratory at [phone] for redraw instructions. Performed By: #### C REAT, ESR, CRP, HEPATIC, CK, CBC, MISC LAB #### [facility] [address] [place] [id number] [place] #### ANTI-KU AB, MITOM2, CH50, PAT, RNA POLYMR, C3, C4 #### [facility] , Office Visiton 06-10-2023 Follow-up visit [id number] Louis Stout 1995 F Date Provider Department Center 06/10/2023 [facility] Family History Problem Relation Age of Onset Coronary artery disease Maternal Grandmother Peripheral vascular disease Maternal Grandmother Hypertension Paternal Grandmother Atrial fibrillation Paternal Grandmother Family Status - Relation Status Age at Maternal Grandmother Paternal Grandmother Level of Service:39938 RI OFFICE/OUTPATIENT ESTABLISHED MOD MDM 30-39 MIN Normal [facility] PAT Antinuclear Antibodieson 05-30-2023 Antinuclear Abs, IFA Positive Critically abnormal . [facility] Comment on above: Result Comment: Nega tive <1:80 Borderline 1:80 Positive >1:80 Performed By: #### C REAT, ESR, CRP, HEPATIC, CK, CBC, MISC LAB #### [address] #### ANTI-KU AB, MITOM2, CH50, PAT, RNA POLYMR, C3, C4 #### [facility] , Note 1 Normal . [facility] Comment on above: Result Comment: Holly danielle Potential Disease Association Homogeneous Systemic Lupus Erythematosus, Drug Induced Systemic Lupus Erythematosus, Chronic Autoimmune hepatitis, Juvenile Idiopathic Arthritis Speckled Sjogren Syndrome, Systemic Lupus Erythematosus, Subacute Cutaneous Lupus, Lupus, Congenital Heart Block, Mixed Connective Tissue Disease, Scleroderma-diffuse, Scleroderma-Autoimmune Myositis Overlap Syndrome, Systemic Lupus Onjbsrfquiztv-Yournoupgwy-Pobixkosfx Myositis Overlap Syndrome, Systemic Autoimmune Rheumatic Disease, [...] Linear Scleroderma, Antiphospholipid Syndrome Performed at: - [facility] [id number] Insurance Policy Clerk: Breezy Jones PhD, Phone: [phone] Performed By: #### C REAT, ESR, CRP, HEPATIC, CK, CBC, MISC LAB #### [address] #### ANTI-KU AB, MITOM2, CH50, PAT, RNA POLYMR, C3, C4 #### [facility] , Speckled Pattern 1:160 High . [facility] Comment on above: Result Comment: ICAP nomenclature: AC-2,4,5,29 Performed By: #### C REAT, ESR, CRP, HEPATIC, CK, CBC, MISC LAB #### [place] [address] [place] #### ANTI-KU AB, MITOM2, CH50, PAT, RNA POLYMR, C3, C4 #### [facility] , ANCA Profile (ANCA+MPO+PR3)o n 05-30-2023 Antimyeloperoxidase (MPO) Abs <0.2 Normal 0.0-0.9 [facility] Comment on above: Performed By: #### C REAT, ESR, CRP, HEPATIC, CK, CBC, MISC LAB #### [place] [address] [place] #### ANTI-KU AB, MITOM2, CH50, PAT, RNA POLYMR, C3, C4 #### [facility] , Atypical pANCA <1:20 Normal Neg:<1:20 [facility] Comment on above: Result Comment: The atypical pANCA pattern has been observed in a significant percentage of patients with ulcerative colitis, primary sclerosing cholangitis and autoimmune hepatitis. Performed at: - [facility] [id number] Insurance Policy Clerk: Lisa Ramos MD, Phone: [phone] Performed at: [facility] [id number] Insurance Policy Clerk: Breezy Jones PhD, Phone: [phone] Performed By: #### C REAT, ESR, CRP, HEPATIC, CK, CBC, MISC LAB #### [place] [address] [place] #### ANTI-KU AB, MITOM2, CH50, PAT, RNA POLYMR, C3, C4 #### [facility] , Cytoplasmic (C-ANCA) <1:20 Normal Neg:<1:20 [facility] Comment on above: Performed By: #### C REAT, ESR, CRP, HEPATIC, CK, CBC, MISC LAB #### [place] [address] [place] #### ANTI-KU AB, MITOM2, CH50, PAT, RNA POLYMR, C3, C4 #### [facility] , Perinuclear (P-ANCA) <1:20 Normal Neg:<1:20 [facility] Comment on above: Result Comment: The presence of positive fluorescence exhibiting P-ANCA or C-ANCA patterns alone is not specific for the diagnosis of Riri's Granulomatosis (WG) or microscopic polyangiitis. Decisions about treatment should not be based solely on ANCA IFA results. The International ANCA Group Consensus recommends follow up testing of positive sera with both RI- 3 and MPO-ANCA enzyme immunoassays. As many as 5% serum samples are positive only by EIA. Ref. AM J Clin Pathol 1999;111:507-513. Performed By: #### C REAT, ESR, CRP, HEPATIC, CK, CBC, MISC LAB #### [place] [address] [place] #### ANTI-KU AB, MITOM2, CH50, PAT, RNA POLYMR, C3, C4 #### [facility] , Proteinase 3 (PR3) Antibodies <0.2 Normal 0.0-0.9 [facility] Comment on above: Result Comment: PERF ORMED BY: [place] [address] PATHOLOGIST RIDE OPERATOR RUIZ CLIFTON M.D. Performed By: #### C REAT, ESR, CRP, HEPATIC, CK, CBC, MISC LAB #### [place] [address] [place] #### ANTI-KU AB, MITOM2, CH50, PAT, RNA POLYMR, C3, C4 #### [facility] , Alanine aminotransferase [En zymatic activity/volume] in Serum or PlasmaOrdered By: Jane Tracey on 05-30-2023 ALT [Catalytic activity/Vol] 24 U/L Normal 7-52 [facility] Comment on above: Performed By: #### C REAT, ESR, CRP, HEPATIC, CK, CBC, MISC LAB #### [place] [address] [place] #### ANTI-KU AB, MITOM2, CH50, PAT, RNA POLYMR, C3, C4 #### [facility] , Albumin [Mass/volume] in Ser um or PlasmaOrdered By: Jane Tracey on 05-30-2023 Albumin [Mass/Vol] 4.1 g/dL Normal 2.9-4.4 [facility] Comment on above: Performed By: #### C REAT, ESR, CRP, HEPATIC, CK, CBC, MISC LAB #### [facility] [address] [place] [address] [place] #### ANTI-KU AB, MITOM2, CH50, PAT, RNA POLYMR, C3, C4 #### [facility] , Albumin [Mass/volume] in Ser um or Plasma by Bromocresol green (BCG) dye binding methoOrdered By: lilia Tracey on 05-30-2023 Albumin BCG dye [Mass/Vol] 5.2 g/dL 3.5-5.7 [facility] Alkaline phosphatase [Enzyma tic activity/volume] in Serum or PlasmaOrdered By: lilia Tracey on 05-30-2023 ALP [Catalytic activity/Vol] 115 U/L High 34-104 [facility] Comment on above: Performed By: #### C REAT, ESR, CRP, HEPATIC, CK, CBC, MISC LAB #### [place] [address] [place] #### ANTI-KU AB, MITOM2, CH50, PAT, RNA POLYMR, C3, C4 #### [facility] , Aspartate aminotransferase [ Enzymatic activity/volume] in Serum or PlasmaOrdered By: lilia Tracey on 05-30-2023 AST [Catalytic activity/Vol] 32 U/L Normal 13-39 [facility] Comment on above: Performed By: #### C REAT, ESR, CRP, HEPATIC, CK, CBC, MISC LAB #### [facility] [address] [place] [address] [place] #### ANTI-KU AB, MITOM2, CH50, PAT, RNA POLYMR, C3, C4 #### [facility] , Atypical perinuclear antineu trophil cytoplasmic antibodies measurementOrdered By: Jane Tracey on 05-30-2023 Neutrophil cytoplasmic Ab.perinuclear.atypical IF (S) [Titer] <1:20 titer Neg:<1:20 [facility] Comment on above: The atypical pANCA p attern has been observed in asignificant percentage of patients with ulcerative colitis,primary sclerosing cholangitis and autoimmune hepatitis.Performed at: - [facility] [id number] Director: Lisa Ramos MD, Phone: [phone] at: [facility] [id number] Director: Breezy Jones PhD, Phone: [phone] Automated basophil %Ordered By: Jane Tracey on 05-30-2023 Basophils/100 WBC (Bld) 1.5 % Normal . [facility] Comment on above: Performed By: #### C REAT, ESR, CRP, HEPATIC, CK, CBC, MISC LAB #### [address] #### ANTI-KU AB, MITOM2, CH50, PAT, RNA POLYMR, C3, C4 #### [facility] , Automated basophil countOrde red By: Jane Tracey on 05-30-2023 Basophils (Bld) [#/Vol] 0.2 10*3/uL Normal 0.0-0.2 [facility] Comment on above: Result Comment: PERF ORMED BY: [place] [address] PATHOLOGIST RIDE OPERATOR RUIZ CLIFTON M.D. Performed By: #### C REAT, ESR, CRP, HEPATIC, CK, CBC, MISC LAB #### [place] [address] [place] #### ANTI-KU AB, MITOM2, CH50, PAT, RNA POLYMR, C3, C4 #### [facility] , Automated blood monocyte cou ntOrdered By: Jane Feldermaranda on 05-30-2023 Monocytes (Bld) [#/Vol] 0.2 10*3/uL Normal 0.0-0.8 [facility] Comment on above: Performed By: #### C REAT, ESR, CRP, HEPATIC, CK, CBC, MISC LAB #### [place] [address] [place] #### ANTI-KU AB, MITOM2, CH50, PAT, RNA POLYMR, C3, C4 #### [facility] , Automated eosinophil %Ordere d By: lilia Feldermaranda on 05-30-2023 Eosinophils/100 WBC (Bld) 0.9 % Normal . [facility] Comment on above: Performed By: #### C REAT, ESR, CRP, HEPATIC, CK, CBC, MISC LAB #### [place] [address] [place] #### ANTI-KU AB, MITOM2, CH50, PAT, RNA POLYMR, C3, C4 #### [facility] , Automated eosinophil countOr dered By: Jane Feldermaranda on 05-30-2023 Eosinophils (Bld) [#/Vol] 0.1 10*3/uL Normal 0.0-0.45 [facility] Comment on above: Performed By: #### C REAT, ESR, CRP, HEPATIC, CK, CBC, MISC LAB #### [place] [address] [place] #### ANTI-KU AB, MITOM2, CH50, PAT, RNA POLYMR, C3, C4 #### [facility] , Automated monocyte %Ordered By: Jane Feldermaranda on 05-30-2023 Monocytes/100 WBC (Bld) 2.2 % Normal . [facility] Comment on above: Performed By: #### C REAT, ESR, CRP, HEPATIC, CK, CBC, MISC LAB #### [place] [address] [place] #### ANTI-KU AB, MITOM2, CH50, PAT, RNA POLYMR, C3, C4 #### [facility] , Automated neutrophil %Ordere d By: Jane Tracey on 05-30-2023 Neutrophils/100 WBC (Bld) 66.7 % Normal . [facility] Comment on above: Performed By: #### C REAT, ESR, CRP, HEPATIC, CK, CBC, [facility] #### [facility] [address] [place] [address] [place] #### ANTI-KU AB, MITOM2, CH50, PAT, RNA POLYMR, C3, C4 #### [facility] , Bilirubin.total [Mass/volume ] in Serum or PlasmaOrdered By: Jane Tracey on 05-30-2023 Bilirubin [Mass/Vol] 0.5 mg/dL Normal 0.3-1.0 [facility] Comment on above: Performed By: #### C REAT, ESR, CRP, HEPATIC, CK, CBC, [facility] #### [facility] [address] [place] [address] [place] #### ANTI-KU AB, MITOM2, CH50, PAT, RNA POLYMR, C3, C4 #### [facility] , Blood lead detectionOrdered By: Jane Tracey on 05-30-2023 Lead Ql (Bld) <1.0 ug/dL 0.0-3.4 [facility] Comment on above: Testing performed by Inductively coupled plasma/MassSpectrometry.Analysis by inductively coupled plasma/massspectrometry (ICP/MS)This test was developed and its performance characteristicsdetermined by [employer]. It has not been cleared orapproved by the Food and Drug Administration. Environmental Exposure: WHO Recommendation <5.0 Occupational Exposure: OSHA Lead Std 40.0 OLIVE 30.0 Detection Limit = 1.0Performed at: [facility] [id number] Director: Breezy Jones PhD, Phone: [phone] Calcium [Mass/volume] in Ser um or PlasmaOrdered By: Jane Tracey on 05-30-2023 Calcium [Mass/Vol] 10.4 mg/dL High 8.6-10.3 [facility] Comment on above: Performed By: #### C REAT, ESR, CRP, HEPATIC, CK, CBC, MISC LAB #### [address] #### ANTI-KU AB, MITOM2, CH50, PAT, RNA POLYMR, C3, C4 #### [facility] , Carbon dioxide, total [Moles /volume] in Serum or PlasmaOrdered By: Jane Condon on 05-30-2023 CO2 [Moles/Vol] 24.8 mmol/L Normal 21.0-31.0 [facility] Comment on above: Performed By: #### C REAT, ESR, CRP, HEPATIC, CK, CBC, MISC LAB #### [place] [address] [place] #### ANTI-KU AB, MITOM2, CH50, PAT, RNA POLYMR, C3, C4 #### [facility] , Chloride [Moles/volume] in S caitlyn or PlasmaOrdered By: lilia Tracey on 05-30-2023 Chloride [Moles/Vol] 99 mmol/L Normal 98-107 [facility] Comment on above: Performed By: #### C REAT, ESR, CRP, HEPATIC, CK, CBC, MISC LAB #### [place] [address] [place] #### ANTI-KU AB, MITOM2, CH50, PAT, RNA POLYMR, C3, C4 #### [facility] , Complete Blood Count Auto Di ffon 05-30-2023 Mean Corpuscular HGB Conc 34.2 g/dL Normal 32.0-35.0 [facility] Comment on above: Performed By: #### C REAT, ESR, CRP, HEPATIC, CK, CBC, MISC LAB #### [place] [address] [place] #### ANTI-KU AB, MITOM2, CH50, PAT, RNA POLYMR, C3, C4 #### [facility] , NRBC% 0.1 /100{WBC} Normal 0-0.5 [facility] Comment on above: Performed By: #### C REAT, ESR, CRP, HEPATIC, CK, CBC, MISC LAB #### [place] [address] [place] #### ANTI-KU AB, MITOM2, CH50, PAT, RNA POLYMR, C3, C4 #### [facility] , Comprehensive Metabolic Pane antione 05-30-2023 Albumin [Mass/Vol] 5.2 g/dL Normal 3.5-5.7 [facility] Comment on above: Performed By: #### C REAT, ESR, CRP, HEPATIC, CK, CBC, MISC LAB #### [place] [address] [place] #### ANTI-KU AB, MITOM2, CH50, PAT, RNA POLYMR, C3, C4 #### [facility] , Creatinine Clr Calc Pharmacy 108.91 Normal [facility] Comment on above: Performed By: #### C REAT, ESR, CRP, HEPATIC, CK, CBC, MISC LAB #### [place] [address] [place] #### ANTI-KU AB, MITOM2, CH50, PAT, RNA POLYMR, C3, C4 #### [facility] , GFR/1.73 sq M.predicted MDRD (S/P/Bld) [Vol rate/Area] mL/min/{1.73_m2} Normal [facility] Comment on above: Performed By: #### C REAT, ESR, CRP, HEPATIC, CK, CBC, MISC LAB #### [place] [address] [place] #### ANTI-KU AB, MITOM2, CH50, PAT, RNA POLYMR, C3, C4 #### [facility] , Copperon 05-30-2023 Copper 124 ug/dL Normal 80-158 [facility] Comment on above: Result Comment: This test was developed and its performance characteristics determined by [facility]. It has not been cleared or approved by the Food and Drug Administration. Detection Limit = 5 Performed at: [facility] [id number] Insurance Policy Clerk: Lisa Ramos MD, Phone: [phone] Performed By: #### C REAT, ESR, CRP, HEPATIC, CK, CBC, MISC LAB #### [place] [address] [place] #### ANTI-KU AB, MITOM2, CH50, PAT, RNA POLYMR, C3, C4 #### [facility] , Creatinine [Mass/volume] in Serum or PlasmaOrdered By: Jane Tracey on 05-30-2023 Creatinine [Mass/Vol] 0.67 mg/dL Normal 0.60-1.20 [facility] Comment on above: Performed By: #### C REAT, ESR, CRP, HEPATIC, CK, CBC, [facility] #### [place] [address] [place] #### ANTI-KU AB, MITOM2, CH50, PAT, RNA POLYMR, C3, C4 #### [facility] , Cryoglobulin with Quant Refl exon 05-30-2023 Cryoglobulin, Ql, Serum Normal . [facility] Comment on above: Result Comment: Test not performed. Insufficient specimen to perform or complete analysis. contacted your facility on 06-04-2023 This test was developed and its performance characteristics determined by [facility]. It has not been cleared or approved by the Food and Drug Administration. Performed By: #### C REAT, ESR, CRP, HEPATIC, CK, CBC, MISC LAB #### [facility] [address] [place] [address] [place] #### ANTI-KU AB, MITOM2, CH50, PAT, RNA POLYMR, C3, C4 #### [facility] , Erythrocyte distribution wid th [Ratio] by Automated countOrdered By: Jane Condon on 05-30-2023 Erythrocyte distribution width (RBC) [Ratio] 12.8 % Normal 11.9-15.3 [facility] Comment on above: Performed By: #### C REAT, ESR, CRP, HEPATIC, CK, CBC, MISC LAB #### [facility] [address] #### ANTI-KU AB, MITOM2, CH50, PAT, RNA POLYMR, C3, C4 #### [facility] , Erythrocytes [#/volume] in B lood by Automated countOrdered By: Jane Tracey on 05-30-2023 RBC (Bld) [#/Vol] 5.00 10*6/uL Normal 3.60-5.00 [facility] Comment on above: Performed By: #### C REAT, ESR, CRP, HEPATIC, CK, CBC, MISC LAB #### [place] [address] [place] #### ANTI-KU AB, MITOM2, CH50, PAT, RNA POLYMR, C3, C4 #### [facility] , Folate [Mass/volume] in Seru m or PlasmaOrdered By: Jane Tracey on 05-30-2023 Folate [Mass/Vol] 1.3 ng/mL >5.9 [facility] Comment on above: Folate reference ran ge: >5.9 ng/mlThe WHO technical consultation on folate and vitamin [id number] has determined that folate concentrations lessthan 4 ng/ml are considered deficient. Free K+L LT Chains, Qn, Son 05-30-2023 Free [place] Light Chains, S 20.9 mg/L High 3.3-19.4 [facility] Comment on above: Performed By: #### C REAT, ESR, CRP, HEPATIC, CK, CBC, MISC LAB #### [place] [address] [place] #### ANTI-KU AB, MITOM2, CH50, PAT, RNA POLYMR, C3, C4 #### [facility] , Free [place] Light Chains, S 19.4 mg/L Normal 5.7-26.3 [facility] Comment on above: Performed By: #### C REAT, ESR, CRP, HEPATIC, CK, CBC, MISC LAB #### [place] [address] [place] #### ANTI-KU AB, MITOM2, CH50, PAT, RNA POLYMR, C3, C4 #### [facility] , [place]/Lambda Ratio, S 1.08 Normal 0.26-1.65 [facility] Comment on above: Result Comment: Perf ormed at: - [facility] [address] [id number] Insurance Policy Clerk: Breezy Jones PhD, Phone: [phone] Performed By: #### C REAT, ESR, CRP, HEPATIC, CK, CBC, MISC LAB #### [facility] [address] [place] [address] [place] #### ANTI-KU AB, MITOM2, CH50, PAT, RNA POLYMR, C3, C4 #### [facility] , Glucose [Mass/volume] in Ser um or PlasmaOrdered By: Jane Tracey on 05-30-2023 Glucose [Mass/Vol] 97 mg/dL Normal 70-100 [facility] Comment on above: ADA recommended refe rence rangeRandom Glucose Reference Range is dependent on time and content of last meal. Glucose of more than 200 mg/dL in a nonstressed, ambulatory subject supports the diagnosis of Diabetes Mellitus. Result Comment: [place] om Glucose Reference Range is dependent on time and content of last meal. Glucose of more than 200 mg/dL in a nonstressed, ambulatory subject supports the diagnosis of Diabetes Mellitus. ADA recommended reference range Performed By: #### C REAT, ESR, CRP, HEPATIC, CK, CBC, MISC LAB #### [place] [address] [place] #### ANTI-KU AB, MITOM2, CH50, PAT, RNA POLYMR, C3, C4 #### [facility] , HIV 1/O/2 Antigen/Antibodyon 05-30-2023 HIV Screen 4th Generation Non-Reactive Normal Non Reactive [facility] Comment on above: Result Comment: HIV Negative HIV-1/HIV-2 antibodies and HIV-1 p24 antigen were NOT detected. There is no laboratory evidence of HIV infection. Performed at: [address] [id number] Insurance Policy Clerk: Breezy Jones PhD, Phone: [phone] Performed By: #### C REAT, ESR, CRP, HEPATIC, CK, CBC, MISC LAB #### [facility] [address] [place] [address] #### ANTI-KU AB, MITOM2, CH50, PAT, RNA POLYMR, C3, C4 #### [facility] , HIV 1 and HIV-2 antibody ass ay with HIV-1 p24 antigen detectionOrdered By: Jane Tracey on 05-30-2023 HIV 1+2 Ab+HIV1 p24 Ag IA Ql Non-Reactive Non Reactive [facility] Comment on above: HIV NegativeHIV-1/HI V-2 antibodies and HIV-1 p24 antigen were NOTdetected. There is no laboratory evidence of HIV infection.Performed at: [address] [id number] Director: Breezy Jones PhD, Phone: [phone] Hematocrit [Volume Fraction] of Blood by Automated countOrdered By: Jane Condon on 05-30-2023 Hematocrit (Bld) [Volume fraction] 47.6 % High 34.0-46.4 [facility] Comment on above: Performed By: #### C REAT, ESR, CRP, HEPATIC, CK, CBC, MISC LAB #### [facility] [address] [place] [address] [place] #### ANTI-KU AB, MITOM2, CH50, PAT, RNA POLYMR, C3, C4 #### [facility] , Hemoglobin [Mass/volume] in BloodOrdered By: Jane Tracey on 05-30-2023 Hemoglobin (Bld) [Mass/Vol] 16.3 g/dL High 11.8-15.4 [facility] Comment on above: Performed By: #### C REAT, ESR, CRP, HEPATIC, CK, CBC, MISC LAB #### [address] #### ANTI-KU AB, MITOM2, CH50, PAT, RNA POLYMR, C3, C4 #### [facility] , Hepatitis B Core Antibody Ig Mon 05-30-2023 Hepatitis B Core Antibody IgM Negative Normal Negative [facility] Comment on above: Result Comment: Perf ormed at: - [facility] [address] [id number] Insurance Policy Clerk: Breezy Joens PhD, Phone: [phone] Performed By: #### C REAT, ESR, CRP, HEPATIC, CK, CBC, MISC LAB #### [address] #### ANTI-KU AB, MITOM2, CH50, PAT, RNA POLYMR, C3, C4 #### [facility] , Hepatitis B Surface Antibody on 05-30-2023 Hepatitis B Surface Antibody Reactive Normal . [facility] Comment on above: Result Comment: Non Reactive: Inconsistent with immunity, less than 10 mIU/mL Reactive: Consistent with immunity, greater than 9.9 mIU/mL Performed By: #### C REAT, ESR, CRP, HEPATIC, CK, CBC, MISC LAB #### [address] #### ANTI-KU AB, MITOM2, CH50, PAT, RNA POLYMR, C3, C4 #### [facility] , Hepatitis B Surface Antigeno n 05-30-2023 HBsAg Screen Negative Normal Negative [facility] Comment on above: Result Comment: PERF ORMED BY: [place] [address] PATHOLOGIST RIDE OPERATOR RUIZ CLIFTON M.D. Performed By: #### C REAT, ESR, CRP, HEPATIC, CK, CBC, MISC LAB #### [place] [address] [place] #### ANTI-KU AB, MITOM2, CH50, PAT, RNA POLYMR, C3, C4 #### [facility] , Hepatitis B virus surface Ag [Presence] in Serum or Plasma by ImmunoassayOrdered By: Jane Tracey on 05-30-2023 HBV surface Ag IA Ql Negative Negative [facility] IgA [Mass/volume] in Serum o r PlasmaOrdered By: [facility] Alexy on 05-30-2023 IgA [Mass/Vol] 539 mg/dL 87-352 [facility] IgG [Mass/volume] in Serum o r PlasmaOrdered By: [facility] Alexy on 05-30-2023 IgG [Mass/Vol] 1365 mg/dL 586-1602 [facility] IgM [Mass/volume] in Serum o r PlasmaOrdered By: [facility] on 05-30-2023 IgM [Mass/Vol] 352 mg/dL 26-217 [facility] Comment on above: Performed at: [address] Director: Breezy Jones PhD, Phone: [phone] Immunofixation,Serumon 05-30 Immunofixation, Serum Normal . [facility] Comment on above: Result Comment: No m onoclonality detected. Performed By: #### C REAT, ESR, CRP, HEPATIC, CK, CBC, MISC LAB #### [place] [id number] [place] #### ANTI-KU AB, MITOM2, CH50, PAT, RNA POLYMR, C3, C4 #### [facility] , Immunoglobulin A, Serum 539 mg/dL High 87-352 [facility] Comment on above: Performed By: #### C REAT, ESR, CRP, HEPATIC, CK, CBC, MISC LAB #### [place] [address] [place] #### ANTI-KU AB, MITOM2, CH50, PAT, RNA POLYMR, C3, C4 #### [facility] , Immunoglobulin G 1365 mg/dL Normal 586-1602 [facility] Comment on above: Performed By: #### C REAT, ESR, CRP, HEPATIC, CK, CBC, MISC LAB #### [address] #### ANTI-KU AB, MITOM2, CH50, PAT, RNA POLYMR, C3, C4 #### [facility] , Immunoglobulin M, Serum 352 mg/dL High 26-217 [facility] Comment on above: Result Comment: Perf ormed at: [facility] Lab[address] [id number] Insurance Policy Clerk: Breezy Jones PhD, Phone: [phone] Performed By: #### C REAT, ESR, CRP, HEPATIC, CK, CBC, MISC LAB #### [place] [address] [place] #### ANTI-KU AB, MITOM2, CH50, PAT, RNA POLYMR, C3, C4 #### [facility] , Immunoglobulin light chains. kappa.free [Mass/volume] in SerumOrdered By: Jane Tracey on 05-30-2023 Immunoglobulin light chains.kappa.free (S) [Mass/Vol] 20.9 mg/L 3.3-19.4 [facility] Immunoglobulin light chains. kappa.free/Immunoglobulin light chains.lambda.free [MassOrdered By: Jane Tracey on 05-30-2023 Immunoglobulin light chains.kappa.free/Immun oglobulin light chains.lambda.free (S) [Mass ratio] 1.08 0.26-1.65 [facility] Comment on above: Performed at: [address] [id number] Director: Breezy Jones PhD, Phone: [phone] Immunoglobulin light chains. lambda.free [Mass/volume] in Serum or PlasmaOrdered By: Jane Tracey on 05-30-2023 Immunoglobulin light chains.lambda.free [Mass/Vol] 19.4 mg/L 5.7-26.3 [facility] LDH Lactate Dehydrogenaseon 05-30-2023 LDH Lactate Dehydrogenase 219 U/L Normal 140-271 [facility] Comment on above: Performed By: #### C REAT, ESR, CRP, HEPATIC, CK, CBC, MISC LAB #### [facility] [address] [place] [address] [place] #### ANTI-KU AB, MITOM2, CH50, PAT, RNA POLYMR, C3, C4 #### [facility] , Lactate dehydrogenase [Enzym atic activity/volume] in Serum or Plasma by Lactate to pyOrdered By: Jane Tracey on 05-30-2023 LDH Lactate to pyruvate reaction [Catalytic activity/Vol] 219 U/L 140-271 [facility] Lead, Adulton 05-30-2023 Lead-Adult Blood <1.0 Normal 0.0-3.4 [facility] Comment on above: Result Comment: Test ing performed by Inductively coupled plasma/Mass Spectrometry. Analysis by inductively coupled plasma/mass spectrometry (ICP/MS) This test was developed and its performance characteristics determined by [employer]. It has not been cleared or approved by the Food and Drug Administration. Environmental Exposure: WHO Recommendation <5.0 Occupational Exposure: OSHA Lead Std 40.0 OLIVE 30.0 Detection Limit = 1.0 Performed at: [address] [id number] Insurance Policy Clerk: Breezy Jones PhD, Phone: [phone] Performed By: #### C REAT, ESR, CRP, HEPATIC, CK, CBC, MISC LAB #### [facility] [address] [place] [address] [place] #### ANTI-KU AB, MITOM2, CH50, PAT, RNA POLYMR, C3, C4 #### [facility] , Leukocytes [#/volume] correc antoine for nucleated erythrocytes in Blood by Automated counOrdered By: Jane Tracey on 05-30-2023 WBC corrected for nucl RBC Auto (Bld) [#/Vol] 10.1 10*3/uL 3.8-11.6 [facility] Leukocytes [#/volume] in Blo od by Automated countOrdered By: Jane Tracey on 05-30-2023 WBC (Bld) [#/Vol] 10.1 10*3/uL Normal 3.8-11.6 [facility] Comment on above: Performed By: #### C REAT, ESR, CRP, HEPATIC, CK, CBC, MISC LAB #### [facility] [address] [place] [address] [place] #### ANTI-KU AB, MITOM2, CH50, PAT, RNA POLYMR, C3, C4 #### [facility] , Lymphocytes [#/volume] in Bl ood by Automated countOrdered By: Jane Tracey on 05-30-2023 Lymphocytes (Bld) [#/Vol] 2.9 10*3/uL Normal 1.00-4.8 [facility] Comment on above: Performed By: #### C REAT, ESR, CRP, HEPATIC, CK, CBC, MISC LAB #### [facility] [address] [place] [address] [place] #### ANTI-KU AB, MITOM2, CH50, PAT, RNA POLYMR, C3, C4 #### [facility] , Lymphocytes/100 leukocytes i n Blood by Automated countOrdered By: Jane Tracey on 05-30-2023 Lymphocytes/100 WBC (Bld) 28.7 % Normal . [facility] Comment on above: Performed By: #### C REAT, ESR, CRP, HEPATIC, CK, CBC, MISC LAB #### [facility] [address] [place] [address] [place] #### ANTI-KU AB, MITOM2, CH50, PAT, RNA POLYMR, C3, C4 #### [facility] , MCH [Entitic mass] by Automa antoine countOrdered By: Jane Tracey on 05-30-2023 MCH (RBC) [Entitic mass] 32.5 pg Normal 24.7-34.3 [facility] Comment on above: Performed By: #### C REAT, ESR, CRP, HEPATIC, CK, CBC, MISC LAB #### [address] #### ANTI-KU AB, MITOM2, CH50, PAT, RNA POLYMR, C3, C4 #### [facility] , MCHC Auto (RBC) [Mass/Vol]Or dered By: Jane Tracey on 05-30-2023 MCHC (RBC) [Mass/Vol] 34.2 g/dL 32.0-35.0 [facility] MCV [Entitic volume] by Auto mated countOrdered By: Jane Tracey on 05-30-2023 MCV (RBC) [Entitic vol] 95.0 fL Normal 80-100 F [facility] Comment on above: Performed By: #### C REAT, ESR, CRP, HEPATIC, CK, CBC, MISC LAB #### [address] #### ANTI-KU AB, MITOM2, CH50, PAT, RNA POLYMR, C3, C4 #### [facility] , Magnesium [Mass/volume] in S caitlyn or PlasmaOrdered By: Jane Tracey on 05-30-2023 Magnesium [Mass/Vol] 1.9 mg/dL Normal 1.9-2.7 [facility] Comment on above: Performed By: #### C REAT, ESR, CRP, HEPATIC, CK, CBC, MISC LAB #### [address] #### ANTI-KU AB, MITOM2, CH50, PAT, RNA POLYMR, C3, C4 #### [facility] , Methylmalonic Acidon 023 Methylmalonic Acid 99 Normal 0-378 [facility] Comment on above: Result Comment: This test was developed and its performance characteristics determined by [facility]. It has not been cleared or approved by the Food and Drug Administration. Performed at: [address] [id number] Insurance Policy Clerk: Lisa Ramos MD, Phone: [phone] Performed By: #### C REAT, ESR, CRP, HEPATIC, CK, CBC, [facility] #### [facility] [address] #### ANTI-KU AB, MITOM2, CH50, PAT, RNA POLYMR, C3, C4 #### [facility] , Monocyte %Ordered By: Jane Ying on 05-30-2023 Monocyte % 124 ug/dL 80-158 [facility] Comment on above: This test was develo ped and its performance characteristicsdetermined by [employer]. It has not been cleared orapproved by the Food and Drug Administration. Detection Limit = 5Performed at: [address] [id number] Director: Lisa Ramos MD, Phone: [phone] Myeloperoxidase Ab [Units/vo lume] in Serum by ImmunoassayOrdered By: Jane Condon on 05-30-2023 Myeloperoxidase Ab IA Qn (S) <0.2 units 0.0-0.9 [facility] Neutrophils [#/volume] in Bl ood by Automated countOrdered By: Jane Tracey on 05-30-2023 Neutrophils (Bld) [#/Vol] 6.7 10*3/uL Normal 1.8-7.7 [facility] Comment on above: Performed By: #### C REAT, ESR, CRP, HEPATIC, CK, CBC, [facility] #### [facility] [address] [place] [address] [place] #### ANTI-KU AB, MITOM2, CH50, PAT, RNA POLYMR, C3, C4 #### [facility] , No Panel InformationOrdered By: Jane Tracey on 05-30-2023 Anti-Nuclear Antibody Comment 2 See comment . [facility] Comment on above: Pattern Potential Di sease Association Homogeneous Systemic Lupus Erythematosus, Drug Induced Systemic Lupus Erythematosus, Chronic Autoimmune hepatitis, Juvenile Idiopathic Arthritis Speckled Sjogren Syndrome, Systemic Lupus Erythematosus, Subacute Cutaneous Lupus, Lupus, Congenital Heart Block, Mixed Connective Tissue Disease, Scleroderma-diffuse, Scleroderma-Autoimmune Myositis Overlap Syndrome, Systemic Lupus Szyfgmakenwas-Axkvoljjixv-Jphjpebkap Myositis Overlap Syndrome, Systemic Autoimmune Rheumatic Disease, [...] Cytopenias, Linear Scleroderma, Antiphospholipid Syndrome Performed at: [facility] [address] [id number] Director: Breezy Jones PhD, Phone: [phone] Estimated GFR (CKD-EPI) > 60.0 mL/Min [facility] Hepatitis B Core IgM Antibody Negative Negative [facility] Comment on above: Performed at: [facility] [address] [id number] Director: Breezy Jones PhD, Phone: [phone] Perinuclear ANCA (p-ANCA) Antibody <1:20 titer Neg:<1:20 [facility] Comment on above: The presence of posi tive fluorescence exhibiting P-ANCA orC-ANCA patterns alone is not specific for the diagnosis ofWegener's Granulomatosis (WG) or microscopic polyangiitis.Decisions about treatment should not be based solely onANCA IFA results. The International ANCA Group Consensusrecommends follow up testing of positive sera with both RI-3 and MPO-ANCA enzyme immunoassays. As many as 5% serumsamples are positive only by EIA. Ref. AM J Clin Wwxvft4433;111:507-513. Pharmacy Creatinine Clearance (Chem 108.91 [facility] Protein Electrophoresis M-Tomas Not observed g/dL Not Observed [facility] Protein Electrophoresis Note See comment . [facility] Comment on above: Protein electrophore sis scan will follow via computer,mail, or slurry worker delivery. Serum Immunofixation See comment . [facility] Comment on above: No monoclonality det ected. Nucleated erythrocytes [Pres ence] in Blood by Automated countOrdered By: Jane Tracey on 05-30-2023 Nucleated RBC Auto Ql (Bld) 0.1 /100{WBC} 0-0.5 [facility] Platelet mean volume [Entiti c volume] in Blood by Automated countOrdered By: Jane Tracey on 05-30-2023 Platelet mean volume (Bld) [Entitic vol] 7.6 fL Normal 6.3-10.7 [facility] Comment on above: Performed By: #### C REAT, ESR, CRP, HEPATIC, CK, CBC, MISC LAB #### [address] #### ANTI-KU AB, MITOM2, CH50, PAT, RNA POLYMR, C3, C4 #### [facility] , Platelets [#/volume] in Bloo d by Automated countOrdered By: lilia Alexy on 05-30-2023 Platelets (Bld) [#/Vol] 325 10*3/uL Normal 150-450 [facility] Comment on above: Performed By: #### C REAT, ESR, CRP, HEPATIC, CK, CBC, MISC LAB #### [place] [address] [place] #### ANTI-KU AB, MITOM2, CH50, PAT, RNA POLYMR, C3, C4 #### [facility] , Potassium [Moles/volume] in Serum or PlasmaOrdered By: lilia Alexy on 05-30-2023 Potassium [Moles/Vol] 3.4 mmol/L Low 3.5-5.1 [facility] Comment on above: Performed By: #### C REAT, ESR, CRP, HEPATIC, CK, CBC, MISC LAB #### [place] [address] [place] #### ANTI-KU AB, MITOM2, CH50, PAT, RNA POLYMR, C3, C4 #### [facility] , Protein Electrophoresis, Ser umon 05-30-2023 Zmynf-8-Njbgjjrv 0.2 g/dL Normal 0.0-0.4 [facility] Comment on above: Performed By: #### C REAT, ESR, CRP, HEPATIC, CK, CBC, MISC LAB #### [place] [address] [place] #### ANTI-KU AB, MITOM2, CH50, PAT, RNA POLYMR, C3, C4 #### [facility] , Abzfa-6-Ksrdahzf 1.0 g/dL Normal 0.4-1.0 [facility] Comment on above: Performed By: #### C REAT, ESR, CRP, HEPATIC, CK, CBC, MISC LAB #### [place] [address] [place] #### ANTI-KU AB, MITOM2, CH50, PAT, RNA POLYMR, C3, C4 #### [facility] , Beta Globulin 1.3 g/dL Normal 0.7-1.3 [facility] Comment on above: Performed By: #### C REAT, ESR, CRP, HEPATIC, CK, CBC, MISC LAB #### [address] #### ANTI-KU AB, MITOM2, CH50, PAT, RNA POLYMR, C3, C4 #### [facility] , Gamma Globulin 1.5 g/dL Normal 0.4-1.8 [facility] Comment on above: Performed By: #### C REAT, ESR, CRP, HEPATIC, CK, CBC, MISC LAB #### [address] #### ANTI-KU AB, MITOM2, CH50, PAT, RNA POLYMR, C3, C4 #### [facility] , M-Tomas Not Observed Normal Not Observed [facility] Comment on above: Performed By: #### C REAT, ESR, CRP, HEPATIC, CK, CBC, MISC LAB #### [place] [address] [place] #### ANTI-KU AB, MITOM2, CH50, PAT, RNA POLYMR, C3, C4 #### [facility] , SPE-Note Normal . [facility] Comment on above: Result Comment: Prot ein electrophoresis scan will follow via computer, mail, or slurry worker delivery. Performed By: #### C REAT, ESR, CRP, HEPATIC, CK, CBC, MISC LAB #### [facility] [address] [place] [address] [place] #### ANTI-KU AB, MITOM2, CH50, PAT, RNA POLYMR, C3, C4 #### [facility] , Protein [Mass/volume] in Ser um or PlasmaOrdered By: Jane Tracey on 05-30-2023 Protein [Mass/Vol] 9.0 g/dL High 6.4-8.9 [facility] Comment on above: Performed By: #### C REAT, ESR, CRP, HEPATIC, CK, CBC, MISC LAB #### [place] [address] [place] #### ANTI-KU AB, MITOM2, CH50, PAT, RNA POLYMR, C3, C4 #### [facility] , Protein [Mass/Vol] 8.1 g/dL Normal 6.0-8.5 [facility] Comment on above: Performed By: #### C REAT, ESR, CRP, HEPATIC, CK, CBC, MISC LAB #### [place] [address] [place] #### ANTI-KU AB, MITOM2, CH50, PAT, RNA POLYMR, C3, C4 #### [facility] , Proteinase 3 Ab [Units/volum e] in Serum by ImmunoassayOrdered By: Jane Tracey on 05-30-2023 Proteinase 3 Ab IA Qn (S) <0.2 units 0.0-0.9 [facility] Rheumatoid Factoron 05-30-20 Rheumatoid Factor 10.9 Normal <14.0 [facility] Comment on above: Result Comment: Perf ormed at: - [facility] [place] [address] [place], [place] [id number] Insurance Policy Clerk: Breezy Jones PhD, Phone: [phone] Performed By: #### C REAT, ESR, CRP, HEPATIC, CK, CBC, MISC LAB #### [address] [place] [address] [place] #### ANTI-KU AB, MITOM2, CH50, PAT, RNA POLYMR, C3, C4 #### [facility] , Serum angiotensin converting enzyme (DILSHAD) measurementOrdered By: Jane Tracey on 05-30-2023 Angiotensin converting enzyme [Catalytic activity/Vol] 61 U/L Normal 14-82 [facility] Comment on above: Performed at: [address] [id number] Director: Breezy Jones PhD, Phone: [phone] Result Comment: Perf ormed at: [facility] [place] [address] Insurance Policy Clerk: Breezy Jones PhD, Phone: [phone] Performed By: #### C REAT, ESR, CRP, HEPATIC, CK, CBC, MISC LAB #### [address] #### ANTI-KU AB, MITOM2, CH50, PAT, RNA POLYMR, C3, C4 #### [facility] , Serum classic neutrophil cyt oplasmic antibody titer by immunofluorescenceOrdered By: Jane Tracey on 05-30-2023 Neutrophil cytoplasmic Ab.classic IF (S) [Titer] <1:20 titer Neg:<1:20 [facility] Serum cryoglobulin detection Ordered By: Jane Tracey on 05-30-2023 Cryoglobulin Ql (S) See comment . [facility] Comment on above: Test not performed. Insufficient specimen to perform orcomplete analysis.contacted your facility on [id number] test was developed and its performance characteristicsdetermined by [facility]. It has not been cleared orapproved by the Food and Drug Administration. Serum globulin measurement ( mass/volume)Ordered By: Jane Tracey on 05-30-2023 Globulin (S) [Mass/Vol] 4.0 g/dL High 2.2-3.9 [facility] Comment on above: Performed By: #### C REAT, ESR, CRP, HEPATIC, CK, CBC, MISC LAB #### [facility] [address] [place] [address] [place] #### ANTI-KU AB, MITOM2, CH50, PAT, RNA POLYMR, C3, C4 #### [facility] , Serum globulin measurement b y calculation (mass/volume)Ordered By: Jane Condon on 05-30-2023 Globulin (S) [Mass/Vol] 3.8 g/dL Normal [facility] Comment on above: Performed By: #### C REAT, ESR, CRP, HEPATIC, CK, CBC, MISC LAB #### [facility] [address] [place] [address] [place] #### ANTI-KU AB, MITOM2, CH50, PAT, RNA POLYMR, C3, C4 #### [facility] , Serum hepatitis B virus surf dilshad antibody detectionOrdered By: Jane Tracey on 05-30-2023 HBV surface Ab Ql (S) Reactive . [facility] Comment on above: Non Reactive: Incons istent with immunity, less than 10 mIU/mL Reactive: Consistent with immunity, greater than 9.9 mIU/mL Serum nuclear antibody titer Ordered By: Jane Tracey on 05-30-2023 Nuclear Ab (S) [Titer] Positive . [facility] Comment on above: Negative <1:80 Borde rline 1:80 Positive >1:80 Serum or plasma albumin/glob ulin mass ratioOrdered By: Jane Tracey on 05-30-2023 Albumin/Globulin [Mass ratio] 1.4 {ratio} Normal [facility] Comment on above: Performed By: #### C REAT, ESR, CRP, HEPATIC, CK, CBC, MISC LAB #### [facility] [address] [place] [address] [place] #### ANTI-KU AB, MITOM2, CH50, PAT, RNA POLYMR, C3, C4 #### [facility] , Albumin/Globulin [Mass ratio] 1.0 {ratio} Normal 0.7-1.7 [facility] Comment on above: Performed By: #### C REAT, ESR, CRP, HEPATIC, CK, CBC, MISC LAB #### [facility] [address] [place] [address] [place] #### ANTI-KU AB, MITOM2, CH50, PAT, RNA POLYMR, C3, C4 #### [facility] , Serum or plasma alpha 1 glob ulin measurement by electrophoresis (mass/volume)Ordered By: Jane Tracey on 05-30-2023 Alpha 1 globulin Elph [Mass/Vol] 0.2 g/dL 0.0-0.4 [facility] Serum or plasma alpha 2 glob ulin measurement by electrophoresis (mass/volume)Ordered By: Jane Tracey on 05-30-2023 Alpha 2 globulin Elph [Mass/Vol] 1.0 g/dL 0.4-1.0 [facility] Serum or plasma anion gap de terminationOrdered By: Jane Tracey on 05-30-2023 Anion gap [Moles/Vol] 17.6 mmol/L High 6.0-15.0 [facility] Comment on above: Performed By: #### C REAT, ESR, CRP, HEPATIC, CK, CBC, [facility] #### [facility] [address] [place] [address] [place] #### ANTI-KU AB, MITOM2, CH50, PAT, RNA POLYMR, C3, C4 #### [facility] , Serum or plasma beta globuli n measurement by electrophoresis (mass/volume)Ordered By: Jane Tracey on 05-30-2023 Beta globulin Elph [Mass/Vol] 1.3 g/dL 0.7-1.3 [facility] Serum or plasma gamma globul in measurement by electrophoresis (mass/volume)Ordered By: Jane Tracey on 05-30-2023 Gamma globulin Elph [Mass/Vol] 1.5 g/dL 0.4-1.8 [facility] Serum or plasma methylmalona te measurement (moles/volume)Ordered By: Jane Condon on 05-30-2023 Methylmalonate [Moles/Vol] 99 nmol/L 0-378 [facility] Comment on above: This test was develo ped and its performance characteristicsdetermined by [facility]. It has not been cleared orapproved by the Food and Drug Administration.Performed at: - [facility] [address] [id number] Director: Lisa Ramos MD, Phone: [phone] Serum or plasma rheumatoid f actor measurement (units/volume)Ordered By: Jane Tracey on 05-30-2023 Rheumatoid factor Qn 10.9 [IU]/mL <14.0 [facility] Comment on above: Performed at: [address] [id number] Director: Breezy Jones PhD, Phone: [phone] Serum speckled pattern antin uclear antibody (PAT) titerOrdered By: Jane Condon on 05-30-2023 Speckled nuclear Ab pattern (S) [Titer] 1:160 . [facility] Comment on above: ICAP nomenclature: A C-2,4,5,29 Sodium [Moles/volume] in Ser um or PlasmaOrdered By: Jane Tracey on 05-30-2023 Sodium [Moles/Vol] 138 mmol/L Normal 136-145 [facility] Comment on above: Performed By: #### C REAT, ESR, CRP, HEPATIC, CK, CBC, MISC LAB #### [facility] [address] [place] [address] [place] #### ANTI-KU AB, MITOM2, CH50, PAT, RNA POLYMR, C3, C4 #### [facility] , Urea nitrogen [Mass/volume] in Serum or PlasmaOrdered By: Jane Tracey on 05-30-2023 Urea nitrogen [Mass/Vol] 9 mg/dL Normal 7-25 [facility] Comment on above: Performed By: #### C REAT, ESR, CRP, HEPATIC, CK, CBC, MISC LAB #### [facility] [address] [place] [address] [place] #### ANTI-KU AB, MITOM2, CH50, PAT, RNA POLYMR, C3, C4 #### [facility] , Vit. B12/Folate Profileon Folate 1.3 ng/mL Low >5.9 [facility] Comment on above: Result Comment: Astrid te reference range: >5.9 ng/ml The WHO technical consultation on folate and vitamin b12 deficiencies has determined that folate concentrations less than 4 ng/ml are considered deficient. PERFORMED BY: [place] [address] PATHOLOGIST RIDE OPERATOR RUIZ CLIFTON M.D. Performed By: #### C REAT, ESR, CRP, HEPATIC, CK, CBC, MISC LAB #### [facility] [address] [place] [address] #### ANTI-KU AB, MITOM2, CH50, PAT, RNA POLYMR, C3, C4 #### [facility] , Vitamin B12 ser/plasOrdered By: Jane Tracey on 05-30-2023 Cobalamin (Vitamin B12) [Mass/Vol] 169 pg/mL Low 180-914 [facility] Comment on above: Performed By: #### C REAT, ESR, CRP, HEPATIC, CK, CBC, MISC LAB #### [facility] [address] [place] [address] #### ANTI-KU AB, MITOM2, CH50, PAT, RNA POLYMR, C3, C4 #### [facility] , CNOVon 05-23-2023 CNOV Office Visit ([facility] ) -------- RICA STOUT ([id number]) 1995 F Date Time Provider Department 05/23/23 2:00 PM ARSH OROZCOJair During your visit today, we recorded the [...] year old female who presents to the [facility] clinic with the chief complaint [...] studies. B12. SPEP with RONALD. - Start jgzi-wxa-tfyfvgz B complex supplementation after laboratory studies. - Trial alpha lipoic acid. Take 600 mg daily. - Follow-up in person in 4 to 6 months. Arsh Orozco MD Staff, [facility] [place] HPI: This is Ms. Rica Stout, a 27 year old female who presents to the [facility] clinic with the chief complaint [...] shrug bilater (more content not included)... Normal [facility] Office Visiton 05-08-2023 Follow-up visit [id number] Louis Stout 1995 F Date Provider Department Center 05/08/2023 Al6-[facility] Family History Problem Relation Age of Onset Coronary artery disease Maternal Grandmother Peripheral vascular disease Maternal Grandmother Hypertension Paternal Grandmother Atrial fibrillation Paternal Grandmother Family Status - Relation Status Age at Maternal Grandmother Paternal Grandmother Level of Service:27346 RI OFFICE/OUTPATIENT ESTABLISHED MOD MDM 30-39 MIN Normal [facility] A1AT SerPl-mCncon 04-12-2023 Alpha 1 antitrypsin [Mass/Vol] 138 mg/dL Normal 90-200 [facility] Comment on above: Order Comment: Speci men Type: BLOOD SPECIMENOrdering Facility: [facility] Address: [address] [place] [address] Performed By: #### 2 4321-2, 1825-9, 10995-6, 2064-4 ####[facility] LABCLIA [id number] [address] [facility] ALPHA 1 ANTITRYP PHEN/GENOTY PEon 04-12-2023 HA1IN Normal [facility] Comment on above: Order Comment: Jim etienne Type: BLOOD SPECIMEN Ordering Facility: [facility] Address: [address] [place] [address] Result Comment: Alph a 1 Antitrypsin Phenotype and Genotype Laboratory Accession Number: [id number] Result: No Variant Detected in SERPINA1 (PI*MM) [...] two most common pathogenic variants: S (c.863A>T, p.Eqt123Iut, g.84791356), Z (c.1096G>A, p.Zfc880Nsm, g.03452948), and the rarer variants: F (c.739C>T, p.Kku934Cul, g.78210011), I (c.187C>T, p.Xbh98Fkt, g.21016593). Limitations: This Laboratory Developed Test (LDT) is [...] developed and its performance characteristics determined by [facility]'s [facility] [place] [facility]). It has not been cleared or approved by the FDA. [facility] is regulated under CLIA as certified to perform high- complexity testing. This test is used for clinical purposes. It should not be regarded as investigational or for research. Testing and interpretation performed at [facility], [address] [place] [address]. CLIA Number: [id number] References: 1) Eron Dickinson RAino G, Alicia ML, Valdemar M, Zay CE, K, Martinez DK, Rodger SL, Benson ALVAREZ, Esther DANIELLE, Placido C, Inocente J. The Diagnosis and Management of Alpha-1 Antritrypsin Deficiency in the Adult. Chronic Obstr Pulm Dis. 2016 Dec 25;3:668-682. 2) Bella JA, Sara ON, Pati ER, Daniel DG. a1-Antitrypsin phenotypes and associated serum protein concentrations in a large clinical population. Chest.2013 Oct;143(4):1000-8. 3) Miles A, Thu NA, Stephane CR, Bong FJ, Carlos SJ, Christel AF. Molecular characterisation of three eikxs-6-qjtwsonavcu deficiency variants: proteinase inhibitor (Pi) nullcardiff (Jrb913----Wzu); PiMmalton (Civ44----pllsacsm) and PiI (Fmt04----Tyz). Hum Karen. 1989 Jun;84(1):55-8. 4) Nancy SUN and Alok NAGEL. Clinical practice. Alpha1-antitrypsin deficiency. N Engl J Med. 2008Jan 13;360(47)1518-65. 5) Jorge NJ, Javier F, Samantha NAGEL. The significance of the F variant of qhurg-2-hjvxziakdlg and unique case report of a PiFF homozygote. BMC Pulm Med. 2013Feb 25;14:132. 6) Esther DANIELLE, Laisha HALL, and Nicolette Mccurdy. Alpha-1 Antitrypsin Deficiency. 2005May 17 [Updated 2017 August 09]. In: Gricelda RA, Chele MP, Iban TO, et al., editors. GeneReviews [Internet]. [place] ([place]): [employer], [place]; 7539-4302. Available from: http://www.ncbi.nlm.nih.gov/books/FST8380/ As reviewed by Saritha Swan MD Performed By: #### 3 4528-0 #### [facility] CLIA [id number] [address] [place] [address] [place] PAT BY IFA WITH REFLEXon Nuclear Ab pattern (S) [Interp] Nuclear fine speckled Normal [facility] Comment on above: Order Comment: Speci men Type: BLOOD SPECIMEN Ordering Facility: [facility] Address: [address] [place] [address] Performed By: #### 3 4528-0 #### [facility] CLIA [id number] [address] [place] [address] [place] Nuclear Ab Ql (S) Positive Abnormal Negative [facility] Comment on above: Order Comment: Speci men Type: BLOOD SPECIMEN Ordering Facility: [facility] Address: [address] [place] [address] Result Comment: Anti -nuclear antibody test is used as an aid in diagnosis of systemic autoimmune diseases. Where positive and clinically warranted, follow-up using disease-specific testing is recommended. Low positive titers are not uncommon with advanced age, certain chronic infections, and malignancies among others. Test methodology: Indirect fluorescence immunoassay (IFA) using HEp-2 cells. 1:80 Performed By: #### 3 4528-0 #### [facility] CLIA [id number] [address] [place] [address] [place] Basic metabolic 2000 panelon 04-12-2023 Anion gap [Moles/Vol] 18 mmol/L Normal 9-18 [facility] Comment on above: Order Comment: Speci men Type: BLOOD SPECIMENOrdering Facility: [facility] Address: [address] [place] [address] Performed By: #### 2 4321-2, 1825-9, 02908-7, 2064-4 ####[facility] LABCLIA [id number] [place] [address] [place] Calcium [Mass/Vol] 10.3 mg/dL High 8.5-10.2 [facility] Comment on above: Order Comment: Speci men Type: BLOOD SPECIMENOrdering Facility: [facility] Address: [address] [place] [address] Performed By: #### 2 4321-2, 1824-9, 27822-5, 2063-10 ####[facility] LABCLIA [id number] [place] [address] [place] Chloride [Moles/Vol] 100 mmol/L Normal 97-105 [facility] Comment on above: Order Comment: Speci men Type: BLOOD SPECIMENOrdering Facility: [facility] Address: [address] [place] [address] Performed By: #### 2 4321-2, 9, 73271-6, 2063-10 ####[facility] LABIA [id number] [place] [address] [place] CO2 [Moles/Vol] 20 mmol/L Low 22-30 [facility] Comment on above: Order Comment: Speci men Type: BLOOD SPECIMENOrdering Facility: [facility] Address: [address] [place] [address] Performed By: #### 2 4321-2, 9, 27080-7, 2063-10 ####[facility] LABIA [id number] [place] [address] [place] Creatinine [Mass/Vol] 0.43 mg/dL Low 0.58-0.96 [facility] Comment on above: Order Comment: Speci men Type: BLOOD SPECIMENOrdering Facility: [facility] Address: [address] [place] [address] Performed By: #### 2 4321-2, 9, 30710-3, 2063-10 ####[facility] LABIA [id number] [place] [address] [place] Creatinine and Glomerular filtration rate.predicted panel (S/P/Bld) 137 mL/min/1.73m??? Normal >=60 [facility] Comment on above: Order Comment: Speci men Type: BLOOD SPECIMENOrdering Facility: [facility] Address: [address] [place] [address] Result Comment: Ebony mated Glomerular Filtration Rate [...] actual GFR. Performed By: #### 2 4321-2, 9, 94139-8, 2063-10 ####[facility] LABIA [id number] [place] [id number] [place] Glucose [Mass/Vol] 96 mg/dL Normal 74-99 [facility] Comment on above: Order Comment: Jim etienne Type: BLOOD SPECIMENOrdering Facility: [facility] Address: [address] [phone] Result Comment: The [place] Diabetes Association (ADA) provides guidance for cutoff [...] Standards of Medical Care in Diabetes 2016, [place] [employer]. Diabetes Care. 2016.39(Suppl 1). Performed By: #### 2 4321-2, 9, 17149-0, 2063-10 ####[facility] LABIA [id number] [place] [id number] [place] Potassium [Moles/Vol] 3.9 mmol/L Normal 3.7-5.1 [facility] Comment on above: Order Comment: Jim men Type: BLOOD SPECIMENOrdering Facility: [facility] Address: [address] [address] Performed By: #### 2 4321-2, 1824-9, 16981-4, 2063-10 ####[facility] LABCLIA [id number] [place] [address] [place] Sodium [Moles/Vol] 138 mmol/L Normal 136-144 [facility] Comment on above: Order Comment: Speci men Type: BLOOD SPECIMENOrdering Facility: [facility] Address: [address] [address] Performed By: #### 2 4321-2, 1824-9, 64473-8, 2063-10 ####[facility] LABCLIA [id number] [place] [address] [place] Urea nitrogen [Mass/Vol] 7 mg/dL Normal 7-21 [facility] Comment on above: Order Comment: Speci men Type: BLOOD SPECIMENOrdering Facility: [facility] Address: [address] [place] [address] Performed By: #### 2 4321-2, 9, 68690-8, 2063-10 ####[facility] LABCLIA [id number] [place] [address] [place] CBC W Auto Differential pane l (Bld)on 04-12-2023 Basophils (Bld) [#/Vol] 0.09 10*3/uL Normal <0.11 [facility] Comment on above: Order Comment: Speci men Type: BLOOD SPECIMEN Ordering Facility: [facility] Address: [address] [address] Performed By: #### 3 4528-0 #### [facility] CLIA [id number] [address] [place] [address] [place] Basophils/100 WBC (Bld) 1.0 % Normal [facility] Comment on above: Order Comment: Speci men Type: BLOOD SPECIMEN Ordering Facility: [facility] Address: [address] [place] [phone] Performed By: #### 3 4528-0 #### [facility] CLIA [id number] [address] [place] [address] [place] Differential cell count method Nom (Bld) Manual Normal [facility] Comment on above: Order Comment: Speci men Type: BLOOD SPECIMEN Ordering Facility: [facility] Address: [address] Performed By: #### 3 4528-0 #### [facility] CLIA [id number] [address] [place] [address] [place] Eosinophils (Bld) [#/Vol] 0.36 10*3/uL Normal <0.46 [facility] Comment on above: Order Comment: Speci men Type: BLOOD SPECIMEN Ordering Facility: [facility] Address: [address] Performed By: #### 3 4528-0 #### [facility] CLIA [id number] [address] [place] [address] [place] Eosinophils/100 WBC (Bld) 4.0 % Normal [facility] Comment on above: Order Comment: Speci men Type: BLOOD SPECIMEN Ordering Facility: [facility] Address: [address] [place], [place] [address] Performed By: #### 3 4528-0 #### [facility] CLIA [id number] [address] [place] [address] [place] Erythrocyte distribution width (RBC) [Ratio] 12.3 % Normal 11.5-15.0 [facility] Comment on above: Order Comment: Speci men Type: BLOOD SPECIMEN Ordering Facility: [facility] Address: [address] [place], [place] [address] Performed By: #### 3 4528-0 #### [facility] CLIA [id number] [address] [place] [address] [place] Hematocrit (Bld) [Volume fraction] 43.8 % Normal 36.0-46.0 [facility] Comment on above: Order Comment: Speci men Type: BLOOD SPECIMEN Ordering Facility: [facility] Address: [address] [place], [place] [address] Performed By: #### 3 4528-0 #### [facility] CLIA [id number] [address] [place] [address] [place] Hemoglobin (Bld) [Mass/Vol] 14.5 g/dL Normal 11.5-15.5 [facility] Comment on above: Order Comment: Speci men Type: BLOOD SPECIMEN Ordering Facility: [facility] Address: [address] [place], [place] [address] Performed By: #### 3 4528-0 #### [facility] CLIA [id number] [address] [place] [address] [place] Lymphocytes (Bld) [#/Vol] 1.72 10*3/uL Normal 1.00-4.00 [facility] Comment on above: Order Comment: Speci men Type: BLOOD SPECIMEN Ordering Facility: [facility] Address: [address] [place], [place] [address] Performed By: #### 3 4528-0 #### [facility] CLIA [id number] [address] [place] [address] [place] Lymphocytes/100 WBC (Bld) 19.0 % Normal [facility] Comment on above: Order Comment: Speci men Type: BLOOD SPECIMEN Ordering Facility: [facility] Address: [address] [place], [place] [address] Performed By: #### 3 4528-0 #### [facility] CLIA [id number] [address] [place] [address] [place] MCH (RBC) [Entitic mass] 34.4 pg High 26.0-34.0 [facility] Comment on above: Order Comment: Speci men Type: BLOOD SPECIMEN Ordering Facility: [facility] Address: [address] Performed By: #### 3 4528-0 #### [facility] CLIA [id number] [address] [place] [address] [place] MCHC (RBC) [Mass/Vol] 33.1 g/dL Normal 30.5-36.0 [facility] Comment on above: Order Comment: Speci men Type: BLOOD SPECIMEN Ordering Facility: [facility] Address: [address] Performed By: #### 3 4528-0 #### [facility] CLIA [id number] [address] [place] [address] [place] MCV (RBC) [Entitic vol] 104.0 fL High 80.0-100.0 [facility] Comment on above: Order Comment: Speci men Type: BLOOD SPECIMEN Ordering Facility: [facility] Address: [address] Performed By: #### 3 4528-0 #### [facility] CLIA [id number] [address] [place] [address] [place] Monocytes (Bld) [#/Vol] 0.27 10*3/uL Normal <0.87 [facility] Comment on above: Order Comment: Speci men Type: BLOOD SPECIMEN Ordering Facility: [facility] Address: [address] Performed By: #### 3 4528-0 #### [facility] CLIA [id number] [address] [place] [address] [place] Monocytes/100 WBC (Bld) 3.0 % Normal [facility] Comment on above: Order Comment: Speci men Type: BLOOD SPECIMEN Ordering Facility: [facility] Address: [address] Performed By: #### 3 4528-0 #### [facility] CLIA [id number] [address] [place] [address] [place] MYELO% 3.0 % Normal [facility] Comment on above: Order Comment: Speci men Type: BLOOD SPECIMEN Ordering Facility: [facility] Address: [address] [place] [address] Performed By: #### 3 4528-0 #### [facility] CLIA [id number] [address] [place] [address] [place] Neutrophils (Bld) [#/Vol] 6.33 10*3/uL Normal 1.45-7.50 [facility] Comment on above: Order Comment: Speci men Type: BLOOD SPECIMEN Ordering Facility: [facility] Address: [address] [place] [address] Performed By: #### 3 4528-0 #### [facility] CLIA [id number] [address] [place] [address] [place] Neutrophils/100 WBC (Bld) 70.0 % Normal [facility] Comment on above: Order Comment: Speci men Type: BLOOD SPECIMEN Ordering Facility: [facility] Address: [address] [place], [place] [address] Performed By: #### 3 4528-0 #### [facility] CLIA [id number] [address] [place] [address] [place] Nucleated RBC (Bld) [#/Vol] 10*3/uL Normal <0.01 [facility] Comment on above: Order Comment: Speci men Type: BLOOD SPECIMEN Ordering Facility: [facility] Address: [address] [place], [place] [address] Performed By: #### 3 4528-0 #### [facility] CLIA [id number] [address] [place] [address] [place] Nucleated RBC/100 WBC (Bld) [Ratio] 0.0 /100 WBC Normal [facility] Comment on above: Order Comment: Speci men Type: BLOOD SPECIMEN Ordering Facility: [facility] Address: [address] [place] [address] Performed By: #### 3 4528-0 #### [facility] CLIA [id number] [address] [place] [address] [place] Platelet mean volume (Bld) [Entitic vol] 10.1 fL Normal 9.0-12.7 [facility] Comment on above: Order Comment: Speci men Type: BLOOD SPECIMEN Ordering Facility: [facility] Address: [address] [place] [address] Performed By: #### 3 4528-0 #### [facility] CLIA [id number] [address] [place] [address] [place] Platelets (Bld) [#/Vol] 393 10*3/uL Normal 150-400 [facility] Comment on above: Order Comment: Speci men Type: BLOOD SPECIMEN Ordering Facility: [facility] Address: [address] [place] [address] Performed By: #### 3 4528-0 #### [facility] CLIA [id number] [address] [place] [address] [place] Platelets Estimate (Bld) [#/Vol] Adequate Normal [facility] Comment on above: Order Comment: Speci men Type: BLOOD SPECIMEN Ordering Facility: [facility] Address: [address] [place] [address] Performed By: #### 3 4528-0 #### [facility] CLIA [id number] [address] [place] [address] [place] Polychromasia LM Ql (Bld) Slight Normal [facility] Comment on above: Order Comment: Speci men Type: BLOOD SPECIMEN Ordering Facility: [facility] Address: [address] [place] [address] Performed By: #### 3 4528-0 #### [facility] CLIA [id number] [address] [place] [address] [place] RBC (Bld) [#/Vol] 4.21 10*6/uL Normal 3.90-5.20 [facility] Comment on above: Order Comment: Speci men Type: BLOOD SPECIMEN Ordering Facility: [facility] Address: [address] [place] [address] Performed By: #### 3 4528-0 #### [facility] CLIA [id number] [address] [place] [address] [place] RED CELL MORPH Reviewed: unremarkable Normal [facility] Comment on above: Order Comment: Speci men Type: BLOOD SPECIMEN Ordering Facility: [facility] Address: [address] [place] [address] Performed By: #### 3 4528-0 #### [facility] CLIA [id number] [address] [place] [address] [place] WBC (Bld) [#/Vol] 9.04 10*3/uL Normal 3.70-11.00 [facility] Comment on above: Order Comment: Speci men Type: BLOOD SPECIMEN Ordering Facility: [facility] Address: [address] [place] [address] Performed By: #### 3 4528-0 #### [facility] CLIA [id number] [address] [place] [address] [place] WBC Left Shift Ql (Bld) Present [facility] Comment on above: Order Comment: Speci men Type: BLOOD SPECIMEN Ordering Facility: [facility] Address: [address] [place] [address] Performed By: #### 3 4528-0 #### [facility] CLIA [id number] [address] [place] [address] [place] CNOVon 04-12-2023 CNOV Office Visit (GASTA5 ) -------- RICA STOUT ([id number]) 1995 F Date Time Provider Department 04/12/23 1:00 PM JEANNIE JARVIS GASTA5 During your visit today, we recorded the following information about you: Pulse Blood pressure Weight Height 112/minute 132/88 60.4 kg 1.626 m Jeannie Jarvis APRN.EMISSIONS TECHNICIAN 05/24/2023 12:39 PM Signed NAME: Rica Stout [...] of ETOH abuse, 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 Normal [facility] Centromere Ab IF Ql (S)on Centromere Ab Qn (S) <0.2 Normal <1.0 [facility] Comment on above: Order Comment: Speci men Type: BLOOD SPECIMENOrdering Facility: [facility] Address: [address] [address] Result Comment: Anti -centromere antibody is used as in aid in diagnosis of systemic sclerosis. Clinical correlation is required. Test Methodology: Multiplex flow immunoassay. Performed By: #### 1 7791-5, 31347-9, 36583-1, 38652-0, 93277-6, ANAIFR, 03004-9, 06209-0, 47677-3, 76953-6, 48644-8, 68958-9 ####[facility] LABCLIA [id number] [facility] [id number] [place] CENTROMERE AB QUAL Negative Normal Negative [facility] Comment on above: Order Comment: Liliami lowell Type: BLOOD SPECIMENOrdering Facility: [facility] Address: [address] [address] Performed By: #### 1 7791-5, 26447-5, 41750-6, 41129-1, 52397-2, ANAIFR, 65914-6, 21769-6, 42487-2, 25096-3, 41727-6, 00296-6 ####[facility] LABIA [id number] [place] [address] [place] Ceruloplasmin SerPl-mCncon 0 04-12-2023 Ceruloplasmin [Mass/Vol] 29 mg/dL Normal 16-45 [facility] Comment on above: Order Comment: Speci men Type: BLOOD SPECIMENOrdering Facility: [facility] Address: [address] [place] [address] Performed By: #### 2 4321-2, 1825-9, 77137-2, 4-4 ####[facility] LABIA [id number] [place] [address] [place] Chromatin Ab Qnon 04-12-2023 CHROMATIN AB QUAL Negative Normal Negative [facility] Comment on above: Order Comment: Speci men Type: BLOOD SPECIMENOrdering Facility: [facility] Address: [address] [place] [address] Performed By: #### 1 7791-5, 87667-5, 51102-7, 11597-3, 54062-1, ANAIFR, 80766-6, 90719-3, 73599-0, 02089-0, 46070-2, 71469-4 ####[facility] [id number] [place] [address] [place] Chromatin Ab SerPl-aCncon Chromatin Ab Qn <0.2 Normal <1.0 [facility] Comment on above: Order Comment: Speci men Type: BLOOD SPECIMENOrdering Facility: [facility] Address: [address] [place] [address] Result Comment: Test Methodology: Multiplex flow immunoassay. Performed By: #### 1 7791-5, 18538-8, 63180-8, 46570-5, 36044-4, ANAIFR, 87808-4, 45708-1, 09161-7, 46464-5, 75829-1, 72621-2 ####[facility] LABIA [id number] [place] [address] [place] OMA Jo1 Ab Ser-aCncon 2022 Taylor-1 extractable nuclear Ab Qn (S) <0.2 Normal <1.0 [facility] Comment on above: Order Comment: Speci men Type: BLOOD SPECIMENOrdering Facility: [facility] Address: [address] [place] [address] Performed By: #### 1 7791-5, 20631-9, 15825-9, 27983-3, 16474-2, ANAIFR, 00153-5, 36888-1, 53050-5, 92316-6, 94453-9, 01902-3 ####[facility] [id number] [place] [address] [place] OMA TREASURY ASSOCIATE Ab Ser-aCncon 2022 Ribonucleoprotein extractable nuclear Ab Qn (S) <0.2 Normal <1.0 [facility] Comment on above: Order Comment: Speci men Type: BLOOD SPECIMENOrdering Facility: [facility] Address: [address] [place] [address] Performed By: #### 1 7791-5, 01728-5, 91887-2, 67449-8, 65047-1, ANAIFR, 33112-9, 44774-3, 73015-1, 96869-8, 52099-8, 65523-2 ####[facility] LABIA [id number] [place] [address] [place] Ribonucleoprotein extractable nuclear Ab Qn (S) 0.3 AI Normal <1.0 [facility] Comment on above: Order Comment: Speci men Type: BLOOD SPECIMENOrdering Facility: [facility] Address: [address] [place] [address] Performed By: #### 1 7791-5, 88046-0, 82840-6, 01156-3, 86562-6, ANAIFR, 46600-8, 85768-0, 68001-3, 49905-8, 11109-5, 84476-6 ####[facility] LABIA [id number] [place] [address] [place] OMA SM IgG Ser-aCncon 2022 Rico extractable nuclear IgG Qn (S) <0.2 Normal <1.0 [facility] Comment on above: Order Comment: Speci men Type: BLOOD SPECIMENOrdering Facility: [facility] Address: [address] [place] [address] Performed By: #### 1 7791-5, 76256-1, 86966-0, 78424-3, 42588-0, ANAIFR, 74771-2, 38492-4, 13454-2, 79519-6, 32991-0, 25390-7 ####[facility] LABIA [id number] [place] [address] [place] OMA SS-A Ab Ser-aCncon 04-12 Sjogrens syndrome-A extractable nuclear Ab Qn (S) <0.2 Normal <1.0 [facility] Comment on above: Order Comment: Speci men Type: BLOOD SPECIMENOrdering Facility: [facility] Address: [address] [place] [address] Result Comment: Test Methodology: Multiplex flow immunoassay. Performed By: #### 1 7791-5, 66787-2, 97514-2, 38176-5, 97949-5, ANAIFR, 51264-4, 36667-2, 28472-1, 21708-3, 09403-3, 81267-5 ####[facility]IA [id number] [place] [address] [place] OMA SS-B Ab Ser-aCncon 04-12 Sjogrens syndrome-B extractable nuclear Ab Qn (S) <0.2 Normal <1.0 [facility] Comment on above: Order Comment: Speci men Type: BLOOD SPECIMENOrdering Facility: [facility] Address: [address] [place] [address] Result Comment: Anti -SSB (anti-La) antibody is used as an aid in diagnosis of a variety of systemic autoimmune diseases, especially for Sjogren's syndrome and systemic lupus erythematosus. Clinical correlation is required. Test Methodology: Multiplex flow immunoassay. Performed By: #### 1 7791-5, 90848-5, 76058-0, 36036-3, 84033-6, ANAIFR, 40766-4, 25920-0, 94982-1, 23600-1, 19299-2, 99134-4 ####[facility] [id number] [address] [place] Ferritin SerPl-mCncon 2022 Ferritin [Mass/Vol] 667.0 ng/mL High 14.7-205.1 [facility] Comment on above: Order Comment: Speci men Type: BLOOD SPECIMENOrdering Facility: [facility] Address: [address] [place] [address] Performed By: #### 5 0190-8, 52410-7, 2276-4 ####[facility] [id number] [address] [place] HBV core Ab Ser Qlon 023 HBV core Ab Ql (S) Positive Abnormal Negative [facility] Comment on above: Order Comment: Speci men Type: BLOOD SPECIMENOrdering Facility: [facility] Address: [address] [place] [address] Result Comment: The result suggests either current or past infection with Hepatitis B virus. Non-specific reactivity may at times be seen with this test due to some underlying phenomena. Please correlate with HBsAg result and medical history. Performed By: #### 5 195-3, 65753-4, 22645-2, AHAVG ####[facility] [id number] [place] [address] [place] HBV surface Ab Ql (S)on 03-23 HBV surface Ab Qn (S) 45.61 mIU/mL Normal [facility] Comment on above: Order Comment: Speci men Type: BLOOD SPECIMENOrdering Facility: [facility] Address: [address] [place] [address] Result Comment: <8 m IU/mL: No serological evidence of immunity to Hepatitis B Virus. >/= 8 to <12 mIU/mL: No serological evidence of immunity to Hepatitis B Virus. >/= 12 mIU/mL: Consistent with serological evidence of immunity to Hepatitis B Virus. Performed By: #### 5 195-3, 90271-4, 57307-6, AHAVG ####[facility] [id number] [address] HBV surface Ab Ser Qlon 03-23 HBV surface Ab Ql (S) Positive Normal [facility] Comment on above: Order Comment: Speci men Type: BLOOD SPECIMENOrdering Facility: [facility] Address: [address] [place] [address] Result Comment: Cons istent with serological evidence of immunity to Hepatitis B Virus. Performed By: #### 5 195-3, 70347-4, 57467-4, AHAVG ####[facility] [id number] [place] [address] [place] HBV surface Ag Ser Qlon 03-23 HBV surface Ag Ql (S) Negative Normal Negative [facility] Comment on above: Order Comment: Speci men Type: BLOOD SPECIMENOrdering Facility: [facility] Address: [address] [place] [address] Performed By: #### 5 195-3, 01741-2, 16007-4, AHAVG ####[facility] [id number] [place] [address] [place] HCV Ab Ser Qlon 04-12-2023 HCV Ab Ql (S) Negative Normal Negative [facility] Comment on above: Order Comment: Jim etienne Type: BLOOD SPECIMENOrdering Facility: [facility] Address: [address] [place] [address] Result Comment: The result suggests no evidence of active infection with Hepatitis C virus. Should recent infection be suspected, repeat testing may be considered 4-6 weeks after this draw. Performed By: #### 1 6128-1 ####[facility]IA [id number] [address] [facility] HEPATITIS A ANTIBODY, IGGon 04-12-2023 HAV IgG Ql (S) Negative Normal [facility] Comment on above: Order Comment: Jim etienne Type: BLOOD SPECIMENOrdering Facility: [facility] Address: [address] [place] [address] Result Comment: No s erological evidence of immunity to Hepatitis A Virus. Performed By: #### 5 195-3, 15740-3, 67890-7, AHAVG ####[facility] [id number] [address] [place] HFE (HEMOCHROMATOSIS)on 03-23 INTERPRETATION (HEMDNA) Normal C [facility] Comment on above: Order Comment: Jim etienne Type: BLOOD SPECIMENOrdering Facility: [facility] Address: [address] [place] [address] Result Comment: HFE (Hemochromatosis) Laboratory Accession Number: [id number] Result: C282Y: WT H63D: WT S65C: WT Interpretation: No variant detected: The DNA sample is negative for the C282Y, H63D and S65C variants of the HFE gene. Variants at these loci are commonly associated with hereditary hemochromatosis (HH). Approximately 13% of clinically affected individuals may have this negative result, suggesting other etiologies for hereditary hemochromatosis. Methodology: Patient DNA is evaluated for C282Y (c.845G>A, p.Tfl806Jvo, NM_000410.3), H63D (c.187C>G, p.Dcu74Fsa, NM_000410.3) and S65C variant (c.193A>T, p.Fid21Maa, NM_000410.3) missense variants in the HFE gene (NM_000410.3, GRCh37(hg19)) by multiplex polymerase chain reaction (PCR) followed by melting curve analysis. Disclaimer: This test was developed and its performance characteristics determined by [facility]'s Cristóbal Simons [facility] Pathology and Laboratory Medicine [place] [facility] It has not been cleared or approved by the FDA. -[facility] is regulated under CLIA as certified to perform high- complexity testing. This test is used for clinical purposes. It should not be regarded as investigational or for research. Testing and interpretation performed at [facility], [address] [place] [address]. CLIA Number: [id number] As reviewed by Saritha Swan MD Performed By: #### H EMDNA ####[facility] ILLUMINA LIMSCLIA [id number] [address] OF [facility] HbA1c (Bld)on 04-12-2023 Average glucose Estimated from glycated hemoglobin (Bld) [Mass/Vol] 85 mg/dL Normal [facility] Comment on above: Order Comment: Speccari etienne Type: BLOOD SPECIMEN Ordering Facility: [facility] Address: [address] [place] [address] Result Comment: eAG: (Estimated average glucose) is a calculated value from HgbA1c and is technical account representative of the average blood glucose level in the last 2-3 month period. Performed By: #### 3 4528-0 #### [facility] CLIA [id number] [address] [place] [address] STATES OF [facility] HbA1c (Bld) [Mass fraction] 4.6 % Normal 4.3-5.6 [facility] Comment on above: Order Comment: Speci lowell Type: BLOOD SPECIMEN Ordering Facility: [facility] Address: [address] [address] Result Comment: Amer ican Diabetes Association guidelines indicate that patients with HgbA1c in the range 5.7-6.4% are at increased risk for development of diabetes, and intervention by lifestyle modification may be beneficial. HgbA1c greater or equal to 6.5% is considered diagnostic of diabetes. Performed By: #### 3 4528-0 #### [facility] CLIA [id number] [address] [place] [address] [place] Hepatic function 2000 panelo n 04-12-2023 Albumin [Mass/Vol] 4.4 g/dL Normal 3.9-4.9 [facility] Comment on above: Order Comment: Speci men Type: BLOOD SPECIMENOrdering Facility: [facility] Address: [address] [address] Performed By: #### 2 4321-2, 1825-03, 63989-7, 2063-10 ####[facility]IA [id number] [place] [address] [place] ALP [Catalytic activity/Vol] 78 U/L Normal 34-123 [facility] Comment on above: Order Comment: Speci men Type: BLOOD SPECIMENOrdering Facility: [facility] Address: [address] [place], [place] [address] Performed By: #### 2 4321-2, 1825-03, , 2063-10 ####[facility] [id number] [address] [place] ALT [Catalytic activity/Vol] 81 U/L High 7-38 [facility] Comment on above: Order Comment: Speci men Type: BLOOD SPECIMENOrdering Facility: [facility] Address: [address] Performed By: #### 2 4321-2, 1825-03, 35888-7, 2063-10 ####[facility]IA [id number] [address] [place] AST [Catalytic activity/Vol] 76 U/L High 13-35 [facility] Comment on above: Order Comment: Speci men Type: BLOOD SPECIMENOrdering Facility: [facility] Address: [address] [place], [place] [address] Performed By: #### 2 4321-2, 1825-03, 49811-7, 2063-10 ####[facility]IA [id number] [address] [place] Bilirubin [Mass/Vol] 0.5 mg/dL Normal 0.2-1.3 [facility] Comment on above: Order Comment: Speci men Type: BLOOD SPECIMENOrdering Facility: [facility] Address: [address] [place], [place] [address] Performed By: #### 2 4321-2, 1825-03, , 2063-10 ####[facility]IA [id number] [place] [address] [place] Bilirubin.conjugated [Mass/Vol] mg/dL Normal <0.2 [facility] Comment on above: Order Comment: Speci men Type: BLOOD SPECIMENOrdering Facility: [facility] Address: [address] [place] [address] Performed By: #### 2 4321-2, 1825-03, , 2063-10 ####[facility]IA [id number] [place] [address] [place] Protein [Mass/Vol] 7.7 g/dL Normal 6.3-8.0 [facility] Comment on above: Order Comment: Speci men Type: BLOOD SPECIMENOrdering Facility: [facility] Address: [address] [place], [place] [address] Performed By: #### 2 4321-2, 1825-03, 41717-2, 2063-10 ####[facility]IA [id number] [place] [address] [place] Iron and Iron binding capaci ty panelon 04-12-2023 Iron [Mass/Vol] 138 ug/dL Normal 41-186 [facility] Comment on above: Order Comment: Speci men Type: BLOOD SPECIMENOrdering Facility: [facility] Address: [address] [address] Performed By: #### 5 0190-8, 81824-3, 2275-10 ####[facility]CLIA [id number] [place] [address] [place] Iron binding capacity [Mass/Vol] 408 ug/dL High 232-386 [facility] Comment on above: Order Comment: Speci men Type: BLOOD SPECIMENOrdering Facility: [facility] Address: [address] [address] Performed By: #### 5 0190-8, 23806-2, 2275-10 ####[facility] LABCLIA [id number] [place] [address] [place] Iron/TIBC [Molar ratio] 33.8 % Normal 15.0-57.0 [facility] Comment on above: Order Comment: Speci men Type: BLOOD SPECIMENOrdering Facility: [facility] Address: [address] [place] [address] Performed By: #### 5 0190-8, 40188-2, 2275-10 ####[facility] LABCLIA [id number] [place] [address] [place] Taylor-1 extractable nuclear Ab Qn (S)on 04-12-2023 TAYLOR 1 ANTIBODY QUAL Negative Normal Negative [facility] Comment on above: Order Comment: Speci men Type: BLOOD SPECIMENOrdering Facility: [facility] Address: [address] [place] [address] Result Comment: Anti -TAYLOR-1 antibody is used as an aid in diagnosis of polymyositis and dermatomyositis especially with pulmonary involvement. A negative result cannot rule out polymyositis or dermatomyositis. Clinical correlation is required. Test Methodology: Multiplex flow immunoassay. Performed By: #### 1 7791-5, 39292-2, 82989-2, 06358-8, 10294-9, ANAIFR, 63147-8, 85830-2, 44256-2, 07255-8, 24108-6, 32072-7 ####[facility] LABCLIA [id number] [facility] [place] [address] [place] LKM ABon 04-12-2023 LIVER-KIDNEY MICROSOMAL ABS <1:20 Normal <1:20 [facility] Comment on above: Order Comment: Speci men Type: BLOOD SPECIMEN Ordering Facility: [facility] Address: [address] [place] [address] Result Comment: INTE RPRETIVE INFORMATION: Drrqa-Pjmhvh-Kibvkivoe Abs, IgG Liver-Kidney Microsome IgG antibody (anti-LKM), as detected by indirect immunofluorescent antibody (IFA) techniques, may be observed in patients with autoimmune hepatitis type 2 (AIH-2), AIH-2 associated with autoimmune lezsrkplcbvkbnucvd-srhmejuhzyg-bqicaetouf dystrophy (APECED), viral hepatitis C or D, and some forms of drug-induced hepatitis. This IFA does not differentiate among the four types of LKM antibodies (LKM-1, LKM-2, LKM-3, and a fourth type that recognizes CY and CY antigens). Of these, anti-LKM-1 (cytochrome F941AJP1) IgG antibodies are considered specific for AIH-2. This test was developed and its performance characteristics determined by [facility]. It has not been cleared or approved by the US Food and Drug Administration. This test was performed in a CLIA certified laboratory and is intended for clinical purposes. Performed By: [facility] [address] [place] [address] Service Assistant: Luis Blunt MD, PhD CLIA Number: [id number] Performed By: #### 3 4528-0 #### [facility] CLIA [id number] [address] [place] [address] [place] Lipid 1996 panelon 3 Cholesterol [Mass/Vol] 272 mg/dL High <200 [facility] Comment on above: Order Comment: Speci men Type: BLOOD SPECIMENOrdering Facility: [facility] Address: [address] [place] [address] Result Comment: <200 mg/dL, Desirable 200-239 mg/dL, Borderline high >239 mg/dL, High Performed By: #### 5 0190-8, 37479-7, 2275-4 ####[facility]CLIA [id number] [address] [place] Cholesterol in HDL [Mass/Vol] 51 mg/dL Normal >39 [facility] Comment on above: Order Comment: Speci men Type: BLOOD SPECIMENOrdering Facility: [facility] Address: [address] [address] Result Comment: 40-5 9 mg/dL, Acceptable >59 mg/dL, High: Negative risk factor for coronary heart disease <40 mg/dL, Low: Positive risk factor for coronary heart disease Performed By: #### 5 0190-8, 14133-1, 2275-10 ####[facility]CLIA [id number] [address] [place] Cholesterol in LDL [Mass/Vol] 173 mg/dL High <100 [facility] Comment on above: Order Comment: Speci men Type: BLOOD SPECIMENOrdering Facility: [facility] Address: [address] [address] Result Comment: <100 mg/dL, Optimal 100-129 mg/dL, Near optimal/above optimal 130-159 mg/dL, Borderline high 160-189 mg/dL, High >189 mg/dL, Very high Secondary prevention optimal LDL Cholesterol levels are recommended to be < 70 mg/dL Performed By: #### 5 0190-8, 76597-0, 2275- ####[facility] [id number] [address] [place] Cholesterol in LDL/Cholesterol in HDL [Mass ratio] 3.39 {ratio} High <2.54 [facility] Comment on above: Order Comment: Speci men Type: BLOOD SPECIMENOrdering Facility: [facility] Address: [address] [address] Result Comment: Refe rence: 1. National Cholesterol Education Program ATP III Guideline At-A-Glance Quick Desk Reference: National Heart, Lung, and Blood [place]. National Institutes of Health. 2001: NIH Publication No. 01-3305. 2. An International Atherosclerosis Society position paper: global recommendations for the management of dyslipidemia: executive summary, Atherosclerosis. 2014: 232(2):410-413. Performed By: #### 5 0190-8, 10587-6, 2275- ####[facility] [id number] [place] [address] [place] Cholesterol in VLDL [Mass/Vol] 48 mg/dL High <30 [facility] Comment on above: Order Comment: Jim etienne Type: BLOOD SPECIMENOrdering Facility: [facility] Address: [address] [place] [address] Performed By: #### 5 0190-8, 79842-9, 2275- ####[facility]IA [id number] [place] [address] [place] Cholesterol non HDL [Mass/Vol] 221 mg/dL High <130 [facility] Comment on above: Order Comment: Jim etienne Type: BLOOD SPECIMENOrdering Facility: [facility] Address: [address] [place] [address] Result Comment: <130 mg/dL, Optimal 130-159 mg/dL, Near optimal/above optimal 160-189 mg/dL, Borderline high 190-219 mg/dL, High >219 mg/dL, Very high Secondary prevention optimal non HDL Cholesterol levels are recommended to be <100 mg/dL Performed By: #### 5 0190-8, 24013-0, 2275- ####[facility]IA [id number] [place] [address] [place] Cholesterol.total/Shannon sterol in HDL [Mass ratio] 5.33 {ratio} High <5.10 [facility] Comment on above: Order Comment: Jim etienne Type: BLOOD SPECIMENOrdering Facility: [facility] Address: [address] [address] Performed By: #### 5 0190-8, 98639-9, 2275-10 ####[facility]IA [id number] [address] OF [place] FASTING TIME 12 hrs Normal [facility] Comment on above: Order Comment: Speci men Type: BLOOD SPECIMENOrdering Facility: [facility] Address: [address] [place] [address] Performed By: #### 5 0190-8, 73798-7, 2275-10 ####[facility]IA [id number] [address] [place] Triglyceride [Mass/Vol] 238 mg/dL High <150 [facility] Comment on above: Order Comment: Speci men Type: BLOOD SPECIMENOrdering Facility: [facility] Address: [address] [place] [address] Result Comment: <150 mg/dL, Normal 150-199 mg/dL, Borderline high 200-499 mg/dL, High >499 mg/dL, Very high Performed By: #### 5 0190-8, 29279-7, 2275-10 ####[facility]IA [id number] [address] [place] Mitochondria Ab IF Ql (S)on 04-12-2023 Mitochondria M2 Ab IA Qn (S) 2.4 Units Normal <=20.0 [facility] Comment on above: Order Comment: Speci men Type: BLOOD SPECIMENOrdering Facility: [facility] Address: [address] [place] [address] Performed By: #### 1 7791-5, 70842-0, 33254-3, 20529-9, 14400-1, ANAIFR, 19417-0, 87627-8, 22699-2, 93058-6, 29816-2, 96126-1 ####[facility] LABIA [id number] [place] [address] [place] Mitochondria M2 Ab Ql (S) Negative Normal Negative [facility] Comment on above: Order Comment: Speci men Type: BLOOD SPECIMENOrdering Facility: [facility] Address: [address] [place] [address] Result Comment: Anti -mitochondrial antibody test is used as an aid in diagnosis of primary biliary cholangitis. Clinical correlation is required. Performed By: #### 1 7791-5, 37010-8, 58647-9, 02295-8, 52251-2, ANAIFR, 61290-0, 49895-1, 13882-8, 19833-6, 71525-3, 17065-5 ####[facility] [id number] [address] [place] PHOSPHATIDYLETHANOL (PETH)on 04-12-2023 EER PETH See Note Normal [facility] Comment on above: Order Comment: Speci men Type: BLOOD SPECIMEN Ordering Facility: [facility] Address: [address] [place] [address] Result Comment: Auth orized individuals can access the [employer] Card Enhanced Report using the following link: [email or web address] Performed By: [facility] [address] [place] [address] Service Assistant: Luis Blunt MD, PhD CLIA Number: [id number] Performed By: #### 3 4528-0 #### [facility] CLIA [id number] [address] [place] [address] [place] PETH 16:0/18.2 (PLPETH) 228 ng/mL Normal [facility] Comment on above: Order Comment: Speci men Type: BLOOD SPECIMEN Ordering Facility: [facility] Address: [address] [place] [address] Performed By: #### 3 4528-0 #### [facility] CLIA [id number] [address] [place] [address] [place] PETH 16:0/18:1 (POPETH) 243 ng/mL Normal [facility] Comment on above: Order Comment: Speci men Type: BLOOD SPECIMEN Ordering Facility: [facility] Address: [place] [address] Result Comment: INTE RPRETIVE INFORMATION:Phosphatidylethanol (PEth), Whole [...] developed and its performance characteristics determined by [facility]. It has not been cleared or approved by the U.S. Food and Drug Administration. This test was performed in a CLIA-certified laboratory and is intended for clinical purposes. Performed By: #### 3 4528-0 #### [facility] CLIA [id number] [address] [place] [address] [place] PT panel Coag (PPP)on 2022 INR Coag (PPP) [Relative time] 1.0 {INR} Normal 0.9-1.3 [facility] Comment on above: Order Comment: Speccari etienne Type: BLOOD SPECIMEN Ordering Facility: [facility] Address: [address] [address] Result Comment: Adrienne min K Antagonist (VKA) Therapeutic Range: INR 2 to 3 (Target INR of 2.5) Note: For patients treated with VKA drugs, such as warfarin, the [place] [employer] 2012 Guideline recommends [...] Chest 2012, 141:7S-47S Mamadou RA, et al. [facility] 2017, 70: 252-289 Performed By: #### 3 4528-0 #### [facility] CLIA [id number] [address] [place] [address] [place] PT Coag (PPP) [Time] 10.4 s Normal 9.7-13.0 [facility] Comment on above: Order Comment: Jim etienne Type: BLOOD SPECIMEN Ordering Facility: [facility] Address: [address] [id number] Performed By: #### 3 4528-0 #### [facility] [place] [id number] [address] [place] [address] [place] Ribonucleoprotein extractabl e nuclear Ab Qn (S)on 04-12-2023 ANTI-TREASURY ASSOCIATE QUAL Negative Normal Negative [facility] Comment on above: Order Comment: Speci lowell Type: BLOOD SPECIMENOrdering Facility: [facility] Address: [address] [place] [address] Performed By: #### 1 7791-5, 65493-8, 35443-9, 02595-4, 87578-2, ANAIFR, 21283-5, 50742-2, 16384-1, 45587-9, 63951-4, 49919-3 ####[facility]IA [id number] [place] [address] [place] RIBOSOMAL TREASURY ASSOCIATE QUAL Negative Normal Negative [facility] Comment on above: Order Comment: Liliami lowell Type: BLOOD SPECIMENOrdering Facility: [facility] Address: [address] [place] [address] Result Comment: Anti -Ribosomal RNA (Ribosomal P) antibody is used as an aid in diagnosis of systemic autoimmune diseases especially systemic lupus erythematosus and mixed connective tissue disease. Cross-reactivity with Anti-rico antibody is not uncommon. Clinical correlation is required. Test Methodology: Multiplex flow immunoassay. Performed By: #### 1 7791-5, 73853-3, 49032-4, 25809-0, 76879-1, ANAIFR, 55588-4, 19402-0, 83933-1, 04864-7, 92031-9, 07947-9 ####[facility]IA [id number] [place] [address] [place] SCL-70 extractable nuclear I gG IA Qn (S)on 04-12-2023 SCLERODERMA AB QUAL Negative Normal Negative [facility] Comment on above: Order Comment: Liliami lowell Type: BLOOD SPECIMENOrdering Facility: [facility] Address: [address] [place] [address] Performed By: #### 1 7791-5, 65170-1, 16552-1, 06754-2, 87912-8, ANAIFR, 85324-6, 04120-0, 75568-7, 68504-1, 70413-7, 70213-7 ####[facility]IA [id number] [place] [address] [place] SCLERODERMA IGG AB <0.2 Normal <1.0 [facility] Comment on above: Order Comment: Speci men Type: BLOOD SPECIMENOrdering Facility: [facility] Address: [address] [place] [address] Result Comment: Scl- 70/Scleroderma antibody test is used as an aid in diagnosis of systemic sclerosis especially the diffuse cutaneous form. A negative result cannot rule out systemic sclerosis. The final interpretation should consider clinical picture and other test results such as anti-centromere antibody. Test Methodology: Multiplex flow immunoassay. Performed By: #### 1 7791-5, 95255-7, 58079-1, 16093-6, 17904-0, ANAIFR, 10023-4, 27281-3, 95112-3, 11928-0, 30006-7, 71058-0 ####[facility] [id number] [place] [address] [place] Sjogrens syndrome-A extracta ble nuclear Ab Qn (S)on 04-12-2023 SSA ANTIBODY QUAL Negative Normal Negative [facility] Comment on above: Order Comment: Speci men Type: BLOOD SPECIMENOrdering Facility: [facility] Address: [address] [place] [address] Performed By: #### 1 7791-5, 95563-5, 22717-0, 36083-7, 72557-9, ANAIFR, 77739-4, 41686-8, 59268-7, 87190-7, 02398-7, 46412-0 ####[facility]IA [id number] [place] [address] [place] Sjogrens syndrome-B extracta ble nuclear Ab Qn (S)on 04-12-2023 SSB ANTIBODY QUAL Negative Normal Negative [facility] Comment on above: Order Comment: Speci men Type: BLOOD SPECIMENOrdering Facility: [facility] Address: [address] [place] [address] Performed By: #### 1 7791-5, 64777-6, 59982-6, 24215-8, 25698-6, ANAIFR, 99622-0, 90206-9, 66339-3, 52902-6, 16218-7, 54902-0 ####[facility]IA [id number] [address] [place] Rico extractable nuclear Ig G Qn (S)on 04-12-2023 SM ANTIBODY QUAL Negative Normal Negative [facility] Comment on above: Order Comment: Liliami lowell Type: BLOOD SPECIMENOrdering Facility: [facility] Address: [address] [place] [address] Result Comment: Anti -Sm (Rico) antibody is used as an aid in diagnosis of systemic lupus erythematosus and its presence is associated with renal disease. A negative result cannot rule out systemic lupus erythematosus. Clinical correlation is required. Test Methodology: Multiplex flow immunoassay. Performed By: #### 1 7791-5, 17243-0, 68000-4, 27990-4, 58658-7, ANAIFR, 45494-9, 34590-0, 84889-3, 10744-4, 02500-4, 08324-0 ####[facility]IA [id number] [place] [address] [place] Smooth muscle Ab Ql (S)on ACTIN SMOOTH MUSCLE IGG QUALITATIVE Negative Normal Negative [facility] Comment on above: Order Comment: Liliami lowell Type: BLOOD SPECIMENOrdering Facility: [facility] Address: [address] [place] [address] Performed By: #### 1 7791-5, 60645-7, 57594-0, 91759-3, 63052-9, ANAIFR, 66538-1, 19182-5, 96741-2, 25328-5, 54786-3, 26862-9 ####[facility] [id number] [address] [place] ACTIN SMOOTH MUSCLE IGG QUANTITATIVE 3 Units Normal <20 [facility] Comment on above: Order Comment: Speci men Type: BLOOD SPECIMENOrdering Facility: [facility] Address: [address] [place] [address] Performed By: #### 1 7791-5, 30186-4, 07347-7, 54854-7, 54289-1, ANAIFR, 86484-8, 54550-6, 73549-4, 26895-8, 16690-6, 18918-2 ####[facility]IA [id number] [address] [place] dsDNA Ab Ser IA-aCncon 04-12 DNA double strand Ab IA Qn (S) <12 Normal <30 [facility] Comment on above: Order Comment: Speci men Type: BLOOD SPECIMENOrdering Facility: [facility] Address: [address] [place] [address] Result Comment: Nega tive for ds DNA Antibodies. <30 IU/mL Negative 30-74 IU/mL Equivocal >74 IU/mL Positive Performed By: #### 1 7791-5, 40098-7, 77639-8, 13478-9, 24498-4, ANAIFR, 82987-5, 67009-1, 76235-7, 39029-7, 83317-8, 45602-8 ####[facility]IA [id number] [address] OF [place] Uzma 04-11-2023 CNPN Telephone (GASTA5) -------- RICA STOUT ([id number]) 1995 F Date Time Provider Department 04/11/23 MARY CAGLE ([facility]) GASTA5 During your visit today, we recorded [...] Encounter Status:Closed by [facility] RICA STOUT ([id number]) 1995 F Date Time Provider Department 04/11/23 JEANNIE JARVIS GASTA5 During your visit today, we recorded the following information about you: Gretta Ribeiro 04/11/2023 3:29 PM Signed Received outside medical records from [facility], scanned into her chart under scanned docs tab in [employer] Allergies As of Date: 04/11/2023 Noted Allergy [...] Status:Closed by GRETTA RIBEIRO on 07/23/23 Normal [facility] MR cervical spine wo/w conon 04-01-2023 MR cervical spine wo/w con [facility] [place] [address] MRI Report Signed Patient: Rica Stout MR#: [id number] 39 : 1995 Acct:[id number] Age/Sex: 27 / F ADM Date: 03/27/23 Loc: Room: [address] [place] [address] Type: ADM IN Attending Dr: Marc Giron [...] Lowell Blake M.D.04/01/2023 5:09 PM Dictation Location: [place] [address] Transcribed By: [facility] 04/01/231708 Dictated By: Lowell Blake II, MD 04/01/231704 Signed By: 04/01/231708 Normal [facility] US venous duplex LE BIon US venous duplex LE [facility] [place] [address] Ultrasound Report Signed Patient: Rica Stout MR#: [id number] 39 : 1995 Acct:[id number] Age/Sex: 27 / F ADM Date: 03/27/23 Loc: Room: 5O6588-5 Type: ADM IN Attending Dr: Marc Giron [...] Dave Gonzalez M.D.04/01/2023 3:37 PM Dictation Location: [facility]04 Tech: Nia Liz Transcribed By: RAJESH 04/01/231536 Dictated By: Dave Gonzalez MD 04/01/231536 Signed By: 04/01/231536 Normal [facility] ECG 12 lead ECGon 03-31-2023 ECG 12 lead ECG [facility] Main [place] [address] [place] [address] Electrocardiograph Report Signed Patient: Rica Stout MR#: [id number] [birth year] : 1995 Acct:[id number] Age/Sex: 27 / F ADM Date: 03/27/23 Loc: Room: 6H1793-9 Type: ADM IN Attending Dr: Marc Giron [...] Lawrence MD 0 03/31/23 2019 Normal [facility] Alanine aminotransferase [En zymatic activity/volume] in Serum or PlasmaOrdered By: Marc Giron on 03-28-2023 ALT [Catalytic activity/Vol] 31 U/L Normal [facility] Comment on above: Performed By: #### C REAT, ESR, CRP, HEPATIC, CK, CBC, MISC LAB #### [place] [id number] [place] #### ANTI-KU AB, MITOM2, CH50, PAT, RNA POLYMR, C3, C4 #### [facility] , Albumin [Mass/volume] in Ser um or Plasma by Bromocresol green (BCG) dye binding methoOrdered By: Marc Giron on 03-28-2023 Albumin BCG dye [Mass/Vol] 3.3 g/dL 3.5-5.7 [facility] Alkaline phosphatase [Enzyma tic activity/volume] in Serum or PlasmaOrdered By: Marc Giron on 03-28-2023 ALP [Catalytic activity/Vol] 95 U/L Normal 34-104 [facility] Comment on above: Performed By: #### C REAT, ESR, CRP, HEPATIC, CK, CBC, MISC LAB #### [facility] [address] [place] [address] [place] #### ANTI-KU AB, MITOM2, CH50, PAT, RNA POLYMR, C3, C4 #### [facility] , Aspartate aminotransferase [ Enzymatic activity/volume] in Serum or PlasmaOrdered By: Marc Giron on 03-28-2023 AST [Catalytic activity/Vol] 55 U/L High 13-39 [facility] Comment on above: Performed By: #### C REAT, ESR, CRP, HEPATIC, CK, CBC, MISC LAB #### [facility] [address] [place] [address] [place] #### ANTI-KU AB, MITOM2, CH50, PAT, RNA POLYMR, C3, C4 #### [facility] , Automated basophil %Ordered By: Marc Giron on 03-28-2023 Basophils/100 WBC (Bld) 1.4 % Normal . [facility] Comment on above: Performed By: #### C REAT, ESR, CRP, HEPATIC, CK, CBC, MISC LAB #### [facility] [address] [place] [address] [place] #### ANTI-KU AB, MITOM2, CH50, PAT, RNA POLYMR, C3, C4 #### [facility] , Automated basophil countOrde red By: Marc Giron on 03-28-2023 Basophils (Bld) [#/Vol] 0.1 10*3/uL Normal 0.0-0.2 [facility] Comment on above: Result Comment: PERF ORMED BY: [place] [address] PATHOLOGIST RIDE OPERATOR RUIZ CLIFTON M.D. Performed By: #### C REAT, ESR, CRP, HEPATIC, CK, CBC, MISC LAB #### [place] [address] [place] #### ANTI-KU AB, MITOM2, CH50, PTA, RNA POLYMR, C3, C4 #### [facility] , Automated blood monocyte cou ntOrdered By: Marc Giron on 03-28-2023 Monocytes (Bld) [#/Vol] 0.5 10*3/uL Normal 0.0-0.8 [facility] Comment on above: Performed By: #### C REAT, ESR, CRP, HEPATIC, CK, CBC, MISC LAB #### [place] [address] [place] #### ANTI-KU AB, MITOM2, CH50, PAT, RNA POLYMR, C3, C4 #### [facility] , Automated eosinophil %Ordere d By: Marc Giron on 03-28-2023 Eosinophils/100 WBC (Bld) 5.0 % Normal . [facility] Comment on above: Performed By: #### C REAT, ESR, CRP, HEPATIC, CK, CBC, MISC LAB #### [place] [address] [place] #### ANTI-KU AB, MITOM2, CH50, PAT, RNA POLYMR, C3, C4 #### [facility] , Automated eosinophil countOr dered By: Marc Giron on 03-28-2023 Eosinophils (Bld) [#/Vol] 0.3 10*3/uL Normal 0.0-0.45 [facility] Comment on above: Performed By: #### C REAT, ESR, CRP, HEPATIC, CK, CBC, MISC LAB #### [place] [address] [place] #### ANTI-KU AB, MITOM2, CH50, PAT, RNA POLYMR, C3, C4 #### [facility] , Automated monocyte %Ordered By: Marc Giron on 03-28-2023 Monocytes/100 WBC (Bld) 7.5 % Normal . [facility] Comment on above: Performed By: #### C REAT, ESR, CRP, HEPATIC, CK, CBC, MISC LAB #### [place] [address] [place] #### ANTI-KU AB, MITOM2, CH50, PAT, RNA POLYMR, C3, C4 #### [facility] , Automated neutrophil %Ordere d By: Marc Giron on 03-28-2023 Neutrophils/100 WBC (Bld) 55.2 % Normal . [facility] Comment on above: Performed By: #### C REAT, ESR, CRP, HEPATIC, CK, CBC, MISC LAB #### [address] #### ANTI-KU AB, MITOM2, CH50, PAT, RNA POLYMR, C3, C4 #### [facility] , Bilirubin.total [Mass/volume ] in Serum or PlasmaOrdered By: Marc Giron on 03-28-2023 Bilirubin [Mass/Vol] 0.3 mg/dL Normal 0.3-1.0 [facility] Comment on above: Performed By: #### C REAT, ESR, CRP, HEPATIC, CK, CBC, MISC LAB #### [place] [address] [place] #### ANTI-KU AB, MITOM2, CH50, PAT, RNA POLYMR, C3, C4 #### [facility] , Calcium [Mass/volume] in Ser um or PlasmaOrdered By: Marc Giron on 03-28-2023 Calcium [Mass/Vol] 9.2 mg/dL Normal 8.6-10.3 [facility] Comment on above: Performed By: #### C REAT, ESR, CRP, HEPATIC, CK, CBC, MISC LAB #### [facility] [address] [place] [address] [place] #### ANTI-KU AB, MITOM2, CH50, PAT, RNA POLYMR, C3, C4 #### [facility] , Carbon dioxide, total [Moles /volume] in Serum or PlasmaOrdered By: Marc Mack on 03-28-2023 CO2 [Moles/Vol] 23.5 mmol/L Normal 21.0-31.0 [facility] Comment on above: Performed By: #### C REAT, ESR, CRP, HEPATIC, CK, CBC, MISC LAB #### [place] [address] [place] #### ANTI-KU AB, MITOM2, CH50, PAT, RNA POLYMR, C3, C4 #### [facility] , Chloride [Moles/volume] in S caitlyn or PlasmaOrdered By: Marc Giron on 03-28-2023 Chloride [Moles/Vol] 106 mmol/L Normal 98-107 [facility] Comment on above: Performed By: #### C REAT, ESR, CRP, HEPATIC, CK, CBC, MISC LAB #### [place] [address] [place] #### ANTI-KU AB, MITOM2, CH50, PAT, RNA POLYMR, C3, C4 #### [facility] , Complete Blood Count Auto Di ffon 03-28-2023 Mean Corpuscular HGB Conc 33.7 g/dL Normal 32.0-35.0 [facility] Comment on above: Performed By: #### C REAT, ESR, CRP, HEPATIC, CK, CBC, MISC LAB #### [facility] [address] [place] [address] [place] #### ANTI-KU AB, MITOM2, CH50, PAT, RNA POLYMR, C3, C4 #### [facility] , NRBC% 0.2 /100{WBC} Normal 0-0.5 [facility] Comment on above: Performed By: #### C REAT, ESR, CRP, HEPATIC, CK, CBC, MISC LAB #### [place] [address] [place] #### ANTI-KU AB, MITOM2, CH50, PAT, RNA POLYMR, C3, C4 #### [facility] , Comprehensive Metabolic Pane antione 03-28-2023 Albumin [Mass/Vol] 3.3 g/dL Low 3.5-5.7 [facility] Comment on above: Performed By: #### C REAT, ESR, CRP, HEPATIC, CK, CBC, MISC LAB #### [place] [address] [place] #### ANTI-KU AB, MITOM2, CH50, PAT, RNA POLYMR, C3, C4 #### [facility] , Creatinine Clr Calc Pharmacy 169.70 Normal [facility] Comment on above: Performed By: #### C REAT, ESR, CRP, HEPATIC, CK, CBC, MISC LAB #### [place] [address] [place] #### ANTI-KU AB, MITOM2, CH50, PAT, RNA POLYMR, C3, C4 #### [facility] , GFR/1.73 sq M.predicted MDRD (S/P/Bld) [Vol rate/Area] mL/min/{1.73_m2} Normal [facility] Comment on above: Performed By: #### C REAT, ESR, CRP, HEPATIC, CK, CBC, MISC LAB #### [place] [address] [place] #### ANTI-KU AB, MITOM2, CH50, PAT, RNA POLYMR, C3, C4 #### [facility] , Creatinine [Mass/volume] in Serum or PlasmaOrdered By: Marc Giron on 03-28-2023 Creatinine [Mass/Vol] 0.43 mg/dL Low 0.60-1.20 [facility] Comment on above: Performed By: #### C REAT, ESR, CRP, HEPATIC, CK, CBC, MISC LAB #### [facility] [address] [place] [address] [place] #### ANTI-KU AB, MITOM2, CH50, PAT, RNA POLYMR, C3, C4 #### [facility] , Erythrocyte distribution wid th [Ratio] by Automated countOrdered By: Marc Giron on 03-28-2023 Erythrocyte distribution width (RBC) [Ratio] 14.1 % Normal 11.9-15.3 [facility] Comment on above: Performed By: #### C REAT, ESR, CRP, HEPATIC, CK, CBC, MISC LAB #### [address] #### ANTI-KU AB, MITOM2, CH50, PAT, RNA POLYMR, C3, C4 #### [facility] , Erythrocytes [#/volume] in B lood by Automated countOrdered By: Marc Giron on 03-28-2023 RBC (Bld) [#/Vol] 3.35 10*6/uL Low 3.60-5.00 [facility] Comment on above: Performed By: #### C REAT, ESR, CRP, HEPATIC, CK, CBC, MISC LAB #### [facility] [address] [place] [address] #### ANTI-KU AB, MITOM2, CH50, PAT, RNA POLYMR, C3, C4 #### [facility] , Glucose [Mass/volume] in Ser um or PlasmaOrdered By: Marc Giron on 03-28-2023 Glucose [Mass/Vol] 98 mg/dL Normal 70-100 [facility] Comment on above: ADA recommended refe rence rangeRandom Glucose Reference Range is dependent on time and content of last meal. Glucose of more than 200 mg/dL in a nonstressed, ambulatory subject supports the diagnosis of Diabetes Mellitus. Result Comment: [place] om Glucose Reference Range is dependent on time and content of last meal. Glucose of more than 200 mg/dL in a nonstressed, ambulatory subject supports the diagnosis of Diabetes Mellitus. ADA recommended reference range Performed By: #### C REAT, ESR, CRP, HEPATIC, CK, CBC, MISC LAB #### [address] #### ANTI-KU AB, MITOM2, CH50, PAT, RNA POLYMR, C3, C4 #### [facility] , Hematocrit [Volume Fraction] of Blood by Automated countOrdered By: Marc Giron on 03-28-2023 Hematocrit (Bld) [Volume fraction] 36.2 % Normal 34.0-46.4 [facility] Comment on above: Performed By: #### C REAT, ESR, CRP, HEPATIC, CK, CBC, MISC LAB #### [address] #### ANTI-KU AB, MITOM2, CH50, PAT, RNA POLYMR, C3, C4 #### [facility] , Hemoglobin [Mass/volume] in BloodOrdered By: Marc Giron on 03-28-2023 Hemoglobin (Bld) [Mass/Vol] 12.2 g/dL Normal 11.8-15.4 [facility] Comment on above: Performed By: #### C REAT, ESR, CRP, HEPATIC, CK, CBC, MISC LAB #### [address] #### ANTI-KU AB, MITOM2, CH50, PAT, RNA POLYMR, C3, C4 #### [facility] , Leukocytes [#/volume] correc antoine for nucleated erythrocytes in Blood by Automated counOrdered By: Marc Giron on 03-28-2023 WBC corrected for nucl RBC Auto (Bld) [#/Vol] 6.7 10*3/uL 3.8-11.6 [facility] Leukocytes [#/volume] in Blo od by Automated countOrdered By: Marc Giron on 03-28-2023 WBC (Bld) [#/Vol] 6.7 10*3/uL Normal 3.8-11.6 [facility] Comment on above: Performed By: #### C REAT, ESR, CRP, HEPATIC, CK, CBC, MISC LAB #### [place] [address] [place] #### ANTI-KU AB, MITOM2, CH50, PAT, RNA POLYMR, C3, C4 #### [facility] , Lymphocytes [#/volume] in Bl ood by Automated countOrdered By: Marc Giron on 03-28-2023 Lymphocytes (Bld) [#/Vol] 2.1 10*3/uL Normal 1.00-4.8 [facility] Comment on above: Performed By: #### C REAT, ESR, CRP, HEPATIC, CK, CBC, MISC LAB #### [place] [address] [place] #### ANTI-KU AB, MITOM2, CH50, PAT, RNA POLYMR, C3, C4 #### [facility] , Lymphocytes/100 leukocytes i n Blood by Automated countOrdered By: Marc Giron on 03-28-2023 Lymphocytes/100 WBC (Bld) 30.9 % Normal . [facility] Comment on above: Performed By: #### C REAT, ESR, CRP, HEPATIC, CK, CBC, MISC LAB #### [address] #### ANTI-KU AB, MITOM2, CH50, PAT, RNA POLYMR, C3, C4 #### [facility] , MCH [Entitic mass] by Automa antoine countOrdered By: Marc Giron on 03-28-2023 MCH (RBC) [Entitic mass] 36.4 pg High 24.7-34.3 [facility] Comment on above: Performed By: #### C REAT, ESR, CRP, HEPATIC, CK, CBC, MISC LAB #### [place] [address] [place] #### ANTI-KU AB, MITOM2, CH50, PAT, RNA POLYMR, C3, C4 #### [facility] , MCHC Auto (RBC) [Mass/Vol]Or dered By: Marc Giron on 03-28-2023 MCHC (RBC) [Mass/Vol] 33.7 g/dL 32.0-35.0 [facility] MCV [Entitic volume] by Auto mated countOrdered By: Marc Giron on 03-28-2023 MCV (RBC) [Entitic vol] 107.9 fL High 80-100 [facility] Comment on above: Performed By: #### C REAT, ESR, CRP, HEPATIC, CK, CBC, MISC LAB #### [facility] [address] #### ANTI-KU AB, MITOM2, CH50, PAT, RNA POLYMR, C3, C4 #### [facility] , Neutrophils [#/volume] in Bl ood by Automated countOrdered By: Marc Giron on 03-28-2023 Neutrophils (Bld) [#/Vol] 3.7 10*3/uL Normal 1.8-7.7 [facility] Comment on above: Performed By: #### C REAT, ESR, CRP, HEPATIC, CK, CBC, MISC LAB #### [address] #### ANTI-KU AB, MITOM2, CH50, PAT, RNA POLYMR, C3, C4 #### [facility] , No Panel InformationOrdered By: Marc Giron on 03-28-2023 Estimated GFR (CKD-EPI) > 60.0 mL/Min [facility] Creatinine Clearance (Chem 169.70 [facility] Nucleated erythrocytes [Pres ence] in Blood by Automated countOrdered By: Marc Giron on 03-28-2023 Nucleated RBC Auto Ql (Bld) 0.2 /100{WBC} 0-0.5 [facility] Platelet mean volume [Entiti c volume] in Blood by Automated countOrdered By: Marc Giron on 03-28-2023 Platelet mean volume (Bld) [Entitic vol] 7.2 fL Normal 6.3-10.7 [facility] Comment on above: Performed By: #### C REAT, ESR, CRP, HEPATIC, CK, CBC, MISC LAB #### [address] #### ANTI-KU AB, MITOM2, CH50, PAT, RNA POLYMR, C3, C4 #### [facility] , Platelets [#/volume] in Bloo d by Automated countOrdered By: Marc Giron on 03-28-2023 Platelets (Bld) [#/Vol] 273 10*3/uL Normal 150-450 [facility] Comment on above: Performed By: #### C REAT, ESR, CRP, HEPATIC, CK, CBC, MISC LAB #### [address] #### ANTI-KU AB, MITOM2, CH50, PAT, RNA POLYMR, C3, C4 #### [facility] , Potassium [Moles/volume] in Serum or PlasmaOrdered By: Marc Giron on 03-28-2023 Potassium [Moles/Vol] 4.1 mmol/L Normal 3.5-5.1 [facility] Comment on above: Performed By: #### C REAT, ESR, CRP, HEPATIC, CK, CBC, MISC LAB #### [place] [address] [place] #### ANTI-KU AB, MITOM2, CH50, PAT, RNA POLYMR, C3, C4 #### [facility] , Prealbumin [Mass/volume] in Serum or PlasmaOrdered By: Marc Mack on 03-28-2023 Prealbumin [Mass/Vol] 19.3 mg/dL Normal 17.0-34.0 [facility] Comment on above: Result Comment: PERF ORMED BY: [place] [address] PATHOLOGIST RIDE OPERATOR RUIZ CLIFTON M.D. Performed By: #### C REAT, ESR, CRP, HEPATIC, CK, CBC, MISC LAB #### [place] [address] [place] #### ANTI-KU AB, MITOM2, CH50, PAT, RNA POLYMR, C3, C4 #### [facility] , Protein [Mass/volume] in Ser um or PlasmaOrdered By: Marc Giron on 03-28-2023 Protein [Mass/Vol] 6.4 g/dL Normal 6.4-8.9 [facility] Comment on above: Performed By: #### C REAT, ESR, CRP, HEPATIC, CK, CBC, MISC LAB #### [facility] [address] #### ANTI-KU AB, MITOM2, CH50, PAT, RNA POLYMR, C3, C4 #### [facility] , Serum globulin measurement b y calculation (mass/volume)Ordered By: Marc Giron on 03-28-2023 Globulin (S) [Mass/Vol] 3.1 g/dL Normal [facility] Comment on above: Performed By: #### C REAT, ESR, CRP, HEPATIC, CK, CBC, MISC LAB #### [facility] [address] #### ANTI-KU AB, MITOM2, CH50, PAT, RNA POLYMR, C3, C4 #### [facility] , Serum or plasma albumin/glob ulin mass ratioOrdered By: Marc Grion on 03-28-2023 Albumin/Globulin [Mass ratio] 1.1 {ratio} Normal [facility] Comment on above: Performed By: #### C REAT, ESR, CRP, HEPATIC, CK, CBC, MISC LAB #### [place] [address] [place] #### ANTI-KU AB, MITOM2, CH50, PAT, RNA POLYMR, C3, C4 #### [facility] , Serum or plasma anion gap de terminationOrdered By: Marc Giron on 03-28-2023 Anion gap [Moles/Vol] 11.6 mmol/L Normal 6.0-15.0 [facility] Comment on above: Performed By: #### C REAT, ESR, CRP, HEPATIC, CK, CBC, MISC LAB #### [facility] [address] [place] [address] #### ANTI-KU AB, MITOM2, CH50, PAT, RNA POLYMR, C3, C4 #### [facility] , Sodium [Moles/volume] in Ser um or PlasmaOrdered By: aMrc Giron on 03-28-2023 Sodium [Moles/Vol] 137 mmol/L Normal 136-145 [facility] Comment on above: Performed By: #### C REAT, ESR, CRP, HEPATIC, CK, CBC, MISC LAB #### [place] [address] [place] #### ANTI-KU AB, MITOM2, CH50, PAT, RNA POLYMR, C3, C4 #### [facility] , Urea nitrogen [Mass/volume] in Serum or PlasmaOrdered By: Marc Giron on 03-28-2023 Urea nitrogen [Mass/Vol] 7 mg/dL Normal 7-25 [facility] Comment on above: Performed By: #### C REAT, ESR, CRP, HEPATIC, CK, CBC, MISC LAB #### [address] #### ANTI-KU AB, MITOM2, CH50, PAT, RNA POLYMR, C3, C4 #### [facility] , Alanine aminotransferase [En zymatic activity/volume] in Serum or PlasmaOrdered By: Brianne Umanzor on 03-24-2023 ALT [Catalytic activity/Vol] 23 U/L Normal 7-52 [facility] Comment on above: Performed By: #### C REAT, ESR, CRP, HEPATIC, CK, CBC, MISC LAB #### [place] [address] [place] #### ANTI-KU AB, MITOM2, CH50, PAT, RNA POLYMR, C3, C4 #### [facility] , Albumin [Mass/volume] in Ser um or Plasma by Bromocresol green (BCG) dye binding methoOrdered By: Brianne Umanzor on 03-24-2023 Albumin BCG dye [Mass/Vol] 3.1 g/dL 3.5-5.7 [facility] Alkaline phosphatase [Enzyma tic activity/volume] in Serum or PlasmaOrdered By: Obaydah Daromar on 03-24-2023 ALP [Catalytic activity/Vol] 112 U/L High 34-104 [facility] Comment on above: Performed By: #### C REAT, ESR, CRP, HEPATIC, CK, CBC, MISC LAB #### [facility] [address] [place] [address] #### ANTI-KU AB, MITOM2, CH50, PAT, RNA POLYMR, C3, C4 #### [facility] , Aspartate aminotransferase [ Enzymatic activity/volume] in Serum or PlasmaOrdered By: Obaydah Daromar on 03-24-2023 AST [Catalytic activity/Vol] 48 U/L High 13-39 [facility] Comment on above: Performed By: #### C REAT, ESR, CRP, HEPATIC, CK, CBC, MISC LAB #### [place] [address] [place] #### ANTI-KU AB, MITOM2, CH50, PAT, RNA POLYMR, C3, C4 #### [facility] , Bilirubin.total [Mass/volume ] in Serum or PlasmaOrdered By: Obsharondah Daromar on 03-24-2023 Bilirubin [Mass/Vol] 0.5 mg/dL Normal 0.3-1.0 [facility] Comment on above: Performed By: #### C REAT, ESR, CRP, HEPATIC, CK, CBC, MISC LAB #### [place] [address] [place] #### ANTI-KU AB, MITOM2, CH50, PAT, RNA POLYMR, C3, C4 #### [facility] , Calcium [Mass/volume] in Ser um or PlasmaOrdered By: Obaydah Daromar on 03-24-2023 Calcium [Mass/Vol] 9.0 mg/dL Normal 8.6-10.3 [facility] Comment on above: Performed By: #### C REAT, ESR, CRP, HEPATIC, CK, CBC, MISC LAB #### [facility] [address] [place] [address] [place] #### ANTI-KU AB, MITOM2, CH50, PAT, RNA POLYMR, C3, C4 #### [facility] , Carbon dioxide, total [Moles /volume] in Serum or PlasmaOrdered By: Obsharondagautam Cabreraomar on 03-24-2023 CO2 [Moles/Vol] 30.8 mmol/L Normal 21.0-31.0 [facility] Comment on above: Performed By: #### C REAT, ESR, CRP, HEPATIC, CK, CBC, MISC LAB #### [address] #### ANTI-KU AB, MITOM2, CH50, PAT, RNA POLYMR, C3, C4 #### [facility] , Chloride [Moles/volume] in S caitlyn or PlasmaOrdered By: Obsharondagautam Daromar on 03-24-2023 Chloride [Moles/Vol] 102 mmol/L Normal 98-107 [facility] Comment on above: Performed By: #### C REAT, ESR, CRP, HEPATIC, CK, CBC, MISC LAB #### [place] [address] [place] #### ANTI-KU AB, MITOM2, CH50, PAT, RNA POLYMR, C3, C4 #### [facility] , Comprehensive Metabolic Pane antione 03-24-2023 Albumin [Mass/Vol] 3.1 g/dL Low 3.5-5.7 [facility] Comment on above: Performed By: #### C REAT, ESR, CRP, HEPATIC, CK, CBC, MISC LAB #### [facility] [address] [place] [address] #### ANTI-KU AB, MITOM2, CH50, PAT, RNA POLYMR, C3, C4 #### [facility] , Creatinine Clr Calc Pharmacy 155.26 Normal [facility] Comment on above: Performed By: #### C REAT, ESR, CRP, HEPATIC, CK, CBC, MISC LAB #### [place] [address] [place] #### ANTI-KU AB, MITOM2, CH50, PAT, RNA POLYMR, C3, C4 #### [facility] , GFR/1.73 sq M.predicted MDRD (S/P/Bld) [Vol rate/Area] mL/min/{1.73_m2} Normal [facility] Comment on above: Performed By: #### C REAT, ESR, CRP, HEPATIC, CK, CBC, MISC LAB #### [place] [address] [place] #### ANTI-KU AB, MITOM2, CH50, PAT, RNA POLYMR, C3, C4 #### [facility] , Creatinine [Mass/volume] in Serum or PlasmaOrdered By: Brianne Umanzor on 03-24-2023 Creatinine [Mass/Vol] 0.47 mg/dL Low 0.60-1.20 [facility] Comment on above: Performed By: #### C REAT, ESR, CRP, HEPATIC, CK, CBC, MISC LAB #### [place] [address] [place] #### ANTI-KU AB, MITOM2, CH50, PAT, RNA POLYMR, C3, C4 #### [facility] , Glucose [Mass/volume] in Ser um or PlasmaOrdered By: Obulis Floresr on 03-24-2023 Glucose [Mass/Vol] 88 mg/dL Normal 70-100 [facility] Comment on above: ADA recommended refe rence rangeRandom Glucose Reference Range is dependent on time and content of last meal. Glucose of more than 200 mg/dL in a nonstressed, ambulatory subject supports the diagnosis of Diabetes Mellitus. Result Comment: [place] om Glucose Reference Range is dependent on time and content of last meal. Glucose of more than 200 mg/dL in a nonstressed, ambulatory subject supports the diagnosis of Diabetes Mellitus. ADA recommended reference range Performed By: #### C REAT, ESR, CRP, HEPATIC, CK, CBC, MISC LAB #### [facility] [address] [place] [address] [place] #### ANTI-KU AB, MITOM2, CH50, PAT, RNA POLYMR, C3, C4 #### [facility] , Magnesium [Mass/volume] in S caitlyn or PlasmaOrdered By: Brianne Floresr on 03-24-2023 Magnesium [Mass/Vol] 1.9 mg/dL Normal 1.9-2.7 [facility] Comment on above: Result Comment: PERF ORMED BY: [place] [address] PATHOLOGIST RIDE OPERATOR RUIZ CLIFTON M.D. Performed By: #### C REAT, ESR, CRP, HEPATIC, CK, CBC, MISC LAB #### [facility] [address] [place] [address] [place] #### ANTI-KU AB, MITOM2, CH50, PAT, RNA POLYMR, C3, C4 #### [facility] , No Panel InformationOrdered By: Brianne Umanzor on 03-24-2023 Estimated GFR (CKD-EPI) > 60.0 mL/Min [facility] Creatinine Clearance (Chem 155.26 [facility] Potassium [Moles/volume] in Serum or PlasmaOrdered By: Brianne Uamnzor on 03-24-2023 Potassium [Moles/Vol] 4.5 mmol/L Normal 3.5-5.1 [facility] Comment on above: Performed By: #### C REAT, ESR, CRP, HEPATIC, CK, CBC, MISC LAB #### [facility] [address] [place] [address] [place] #### ANTI-KU AB, MITOM2, CH50, PAT, RNA POLYMR, C3, C4 #### [facility] , Protein [Mass/volume] in Ser um or PlasmaOrdered By: Brianne Cabreraomar on 03-24-2023 Protein [Mass/Vol] 6.2 g/dL Low 6.4-8.9 [facility] Comment on above: Performed By: #### C REAT, ESR, CRP, HEPATIC, CK, CBC, MISC LAB #### [place] [address] [place] #### ANTI-KU AB, MITOM2, CH50, PAT, RNA POLYMR, C3, C4 #### [facility] , Serum globulin measurement b y calculation (mass/volume)Ordered By: Obaydah Daromar on 03-24-2023 Globulin (S) [Mass/Vol] 3.1 g/dL Normal [facility] Comment on above: Performed By: #### C REAT, ESR, CRP, HEPATIC, CK, CBC, MISC LAB #### [place] [address] [place] #### ANTI-KU AB, MITOM2, CH50, PAT, RNA POLYMR, C3, C4 #### [facility] , Serum or plasma albumin/glob ulin mass ratioOrdered By: Obaydah Daromar on 03-24-2023 Albumin/Globulin [Mass ratio] 1.0 {ratio} Normal [facility] Comment on above: Performed By: #### C REAT, ESR, CRP, HEPATIC, CK, CBC, MISC LAB #### [place] [address] [place] #### ANTI-KU AB, MITOM2, CH50, PAT, RNA POLYMR, C3, C4 #### [facility] , Serum or plasma anion gap de terminationOrdered By: Obaydah Daromar on 03-24-2023 Anion gap [Moles/Vol] 9.7 mmol/L Normal 6.0-15.0 [facility] Comment on above: Performed By: #### C REAT, ESR, CRP, HEPATIC, CK, CBC, MISC LAB #### [place] [address] [place] #### ANTI-KU AB, MITOM2, CH50, PAT, RNA POLYMR, C3, C4 #### [facility] , Sodium [Moles/volume] in Ser um or PlasmaOrdered By: Obsharondah Daromar on 03-24-2023 Sodium [Moles/Vol] 138 mmol/L Normal 136-145 [facility] Comment on above: Performed By: #### C REAT, ESR, CRP, HEPATIC, CK, CBC, MISC LAB #### [place] [address] [place] #### ANTI-KU AB, MITOM2, CH50, PAT, RNA POLYMR, C3, C4 #### [facility] , Urea nitrogen [Mass/volume] in Serum or PlasmaOrdered By: Obsharondah Daromar on 03-24-2023 Urea nitrogen [Mass/Vol] 6 mg/dL Low 7-25 [facility] Comment on above: Performed By: #### C REAT, ESR, CRP, HEPATIC, CK, CBC, MISC LAB #### [place] [address] [place] #### ANTI-KU AB, MITOM2, CH50, PAT, RNA POLYMR, C3, C4 #### [facility] , Comprehensive Metabolic Pane antione 03-23-2023 Albumin [Mass/Vol] 2.8 g/dL Low 3.5-5.7 [facility] Comment on above: Performed By: #### C REAT, ESR, CRP, HEPATIC, CK, CBC, MISC LAB #### [place] [address] [place] #### ANTI-KU AB, MITOM2, CH50, PAT, RNA POLYMR, C3, C4 #### [facility] , Albumin/Globulin [Mass ratio] 1.0 {ratio} Normal [facility] Comment on above: Performed By: #### C REAT, ESR, CRP, HEPATIC, CK, CBC, MISC LAB #### [place] [address] [place] #### ANTI-KU AB, MITOM2, CH50, PAT, RNA POLYMR, C3, C4 #### [facility] , ALP [Catalytic activity/Vol] 101 U/L Normal 34-104 [facility] Comment on above: Performed By: #### C REAT, ESR, CRP, HEPATIC, CK, CBC, MISC LAB #### [address] #### ANTI-KU AB, MITOM2, CH50, PAT, RNA POLYMR, C3, C4 #### [facility] , ALT [Catalytic activity/Vol] 26 U/L Normal 7-52 [facility] Comment on above: Performed By: #### C REAT, ESR, CRP, HEPATIC, CK, CBC, MISC LAB #### [address] #### ANTI-KU AB, MITOM2, CH50, PAT, RNA POLYMR, C3, C4 #### [facility] , Anion gap [Moles/Vol] 8.8 mmol/L Normal 6.0-15.0 [facility] Comment on above: Performed By: #### C REAT, ESR, CRP, HEPATIC, CK, CBC, MISC LAB #### [address] #### ANTI-KU AB, MITOM2, CH50, PAT, RNA POLYMR, C3, C4 #### [facility] , AST [Catalytic activity/Vol] 54 U/L High 13-39 [facility] Comment on above: Performed By: #### C REAT, ESR, CRP, HEPATIC, CK, CBC, MISC LAB #### [place] [address] [place] #### ANTI-KU AB, MITOM2, CH50, PAT, RNA POLYMR, C3, C4 #### [facility] , Bilirubin [Mass/Vol] 0.7 mg/dL Normal 0.3-1.0 [facility] Comment on above: Performed By: #### C REAT, ESR, CRP, HEPATIC, CK, CBC, MISC LAB #### [place] [address] [place] #### ANTI-KU AB, MITOM2, CH50, PAT, RNA POLYMR, C3, C4 #### [facility] , Calcium [Mass/Vol] 8.3 mg/dL Low 8.6-10.3 [facility] Comment on above: Performed By: #### C REAT, ESR, CRP, HEPATIC, CK, CBC, MISC LAB #### [place] [address] [place] #### ANTI-KU AB, MITOM2, CH50, PAT, RNA POLYMR, C3, C4 #### [facility] , Chloride [Moles/Vol] 106 mmol/L Normal 98-107 [facility] Comment on above: Performed By: #### C REAT, ESR, CRP, HEPATIC, CK, CBC, MISC LAB #### [place] [address] [place] #### ANTI-KU AB, MITOM2, CH50, PAT, RNA POLYMR, C3, C4 #### [facility] , CO2 [Moles/Vol] 26.8 mmol/L Normal 21.0-31.0 [facility] Comment on above: Performed By: #### C REAT, ESR, CRP, HEPATIC, CK, CBC, MISC LAB #### [place] [address] [place] #### ANTI-KU AB, MITOM2, CH50, PAT, RNA POLYMR, C3, C4 #### [facility] , Creatinine [Mass/Vol] 0.39 mg/dL Low 0.60-1.20 [facility] Comment on above: Performed By: #### C REAT, ESR, CRP, HEPATIC, CK, CBC, MISC LAB #### [place] [address] [place] #### ANTI-KU AB, MITOM2, CH50, PAT, RNA POLYMR, C3, C4 #### [facility] , Creatinine Clr Calc Pharmacy 187.11 Normal [facility] Comment on above: Result Comment: PERF ORMED BY: [place] [address] PATHOLOGIST RIDE OPERATOR RUIZ CLIFTON M.D. Performed By: #### C REAT, ESR, CRP, HEPATIC, CK, CBC, MISC LAB #### [address] #### ANTI-KU AB, MITOM2, CH50, PAT, RNA POLYMR, C3, C4 #### [facility] , GFR/1.73 sq M.predicted MDRD (S/P/Bld) [Vol rate/Area] mL/min/{1.73_m2} Normal [facility] Comment on above: Performed By: #### C REAT, ESR, CRP, HEPATIC, CK, CBC, MISC LAB #### [address] #### ANTI-KU AB, MITOM2, CH50, PAT, RNA POLYMR, C3, C4 #### [facility] , Globulin (S) [Mass/Vol] 2.7 g/dL Normal [facility] Comment on above: Performed By: #### C REAT, ESR, CRP, HEPATIC, CK, CBC, MISC LAB #### [place] [address] [place] #### ANTI-KU AB, MITOM2, CH50, PAT, RNA POLYMR, C3, C4 #### [facility] , Glucose [Mass/Vol] 84 mg/dL Normal 70-100 [facility] Comment on above: Result Comment: [place] Glucose Reference Range is dependent on time and content of last meal. Glucose of more than 200 mg/dL in a nonstressed, ambulatory subject supports the diagnosis of Diabetes Mellitus. ADA recommended reference range Performed By: #### C REAT, ESR, CRP, HEPATIC, CK, CBC, MISC LAB #### [facility] [address] [place] [address] [place] #### ANTI-KU AB, MITOM2, CH50, PAT, RNA POLYMR, C3, C4 #### [facility] , Potassium [Moles/Vol] 4.6 mmol/L Normal 3.5-5.1 [facility] Comment on above: Performed By: #### C REAT, ESR, CRP, HEPATIC, CK, CBC, MISC LAB #### [place] [address] [place] #### ANTI-KU AB, MITOM2, CH50, PAT, RNA POLYMR, C3, C4 #### [facility] , Protein [Mass/Vol] 5.5 g/dL Low 6.4-8.9 [facility] Comment on above: Performed By: #### C REAT, ESR, CRP, HEPATIC, CK, CBC, MISC LAB #### [place] [address] [place] #### ANTI-KU AB, MITOM2, CH50, PAT, RNA POLYMR, C3, C4 #### [facility] , Sodium [Moles/Vol] 137 mmol/L Normal 136-145 [facility] Comment on above: Performed By: #### C REAT, ESR, CRP, HEPATIC, CK, CBC, MISC LAB #### [place] [address] [place] #### ANTI-KU AB, MITOM2, CH50, PAT, RNA POLYMR, C3, C4 #### [facility] , Urea nitrogen [Mass/Vol] 4 mg/dL Low 7-25 [facility] Comment on above: Performed By: #### C REAT, ESR, CRP, HEPATIC, CK, CBC, MISC LAB #### [place] [address] [place] #### ANTI-KU AB, MITOM2, CH50, PAT, RNA POLYMR, C3, C4 #### [facility] , Erythrocyte distribution wid th [Ratio] by Automated countOrdered By: Obsharondah Rickomar on 03-23-2023 Erythrocyte distribution width (RBC) [Ratio] 14.6 % Normal 11.9-15.3 [facility] Comment on above: Performed By: #### C REAT, ESR, CRP, HEPATIC, CK, CBC, MISC LAB #### [address] #### ANTI-KU AB, MITOM2, CH50, PAT, RNA POLYMR, C3, C4 #### [facility] , Erythrocytes [#/volume] in B lood by Automated countOrdered By: Obsharondaagutam Cabreraomar on 03-23-2023 RBC (Bld) [#/Vol] 2.96 10*6/uL Low 3.60-5.00 [facility] Comment on above: Performed By: #### C REAT, ESR, CRP, HEPATIC, CK, CBC, MISC LAB #### [place] [address] [place] #### ANTI-KU AB, MITOM2, CH50, PAT, RNA POLYMR, C3, C4 #### [facility] , Hematocrit [Volume Fraction] of Blood by Automated countOrdered By: Obsharondah Rickomar on 03-23-2023 Hematocrit (Bld) [Volume fraction] 31.7 % Low 34.0-46.4 [facility] Comment on above: Performed By: #### C REAT, ESR, CRP, HEPATIC, CK, CBC, MISC LAB #### [place] [address] [place] #### ANTI-KU AB, MITOM2, CH50, PAT, RNA POLYMR, C3, C4 #### [facility] , Hemoglobin [Mass/volume] in BloodOrdered By: Obsharondah Daromar on 03-23-2023 Hemoglobin (Bld) [Mass/Vol] 10.9 g/dL Low 11.8-15.4 [facility] Comment on above: Performed By: #### C REAT, ESR, CRP, HEPATIC, CK, CBC, MISC LAB #### [facility] [address] [place] [address] [place] #### ANTI-KU AB, MITOM2, CH50, PAT, RNA POLYMR, C3, C4 #### [facility] , Hemogram CBC Without Diffon 03-23-2023 Mean Corpuscular HGB Conc 34.5 g/dL Normal 32.0-35.0 [facility] Comment on above: Performed By: #### C REAT, ESR, CRP, HEPATIC, CK, CBC, MISC LAB #### [facility] [address] [place] [address] [place] #### ANTI-KU AB, MITOM2, CH50, PAT, RNA POLYMR, C3, C4 #### [facility] , WBC (Bld) [#/Vol] 6.3 10*3/uL Normal 3.8-11.6 [facility] Comment on above: Performed By: #### C REAT, ESR, CRP, HEPATIC, CK, CBC, MISC LAB #### [facility] [address] [place] [address] [place] #### ANTI-KU AB, MITOM2, CH50, PAT, RNA POLYMR, C3, C4 #### [facility] , Leukocytes [#/volume] correc antoine for nucleated erythrocytes in Blood by Automated counOrdered By: Brianne Floresr on 03-23-2023 WBC corrected for nucl RBC Auto (Bld) [#/Vol] 6.3 10*3/uL 3.8-11.6 [facility] MCH [Entitic mass] by Automa antoine countOrdered By: Brianne Cabreraomar on 03-23-2023 MCH (RBC) [Entitic mass] 37.0 pg High 24.7-34.3 [facility] Comment on above: Performed By: #### C REAT, ESR, CRP, HEPATIC, CK, CBC, MISC LAB #### [facility] [address] [place] [address] [place] #### ANTI-KU AB, MITOM2, CH50, PAT, RNA POLYMR, C3, C4 #### [facility] , MCHC Auto (RBC) [Mass/Vol]Or dered By: Obsharondagautam Cabreraomar on 03-23-2023 MCHC (RBC) [Mass/Vol] 34.5 g/dL 32.0-35.0 [facility] MCV [Entitic volume] by Auto mated countOrdered By: Brianne Cabreraomar on 03-23-2023 MCV (RBC) [Entitic vol] 107.1 fL High 80-100 [facility] Comment on above: Performed By: #### C REAT, ESR, CRP, HEPATIC, CK, CBC, MISC LAB #### [facility] [address] [place] [address] #### ANTI-KU AB, MITOM2, CH50, PAT, RNA POLYMR, C3, C4 #### [facility] , Platelet mean volume [Entiti c volume] in Blood by Automated countOrdered By: Brianne Cabreraomar on 03-23-2023 Platelet mean volume (Bld) [Entitic vol] 7.2 fL Normal 6.3-10.7 [facility] Comment on above: Result Comment: PERF ORMED BY: [place] [address] PATHOLOGIST RIDE OPERATOR RUIZ CLIFTON M.D. Performed By: #### C REAT, ESR, CRP, HEPATIC, CK, CBC, MISC LAB #### [facility] [address] [place] [address] #### ANTI-KU AB, MITOM2, CH50, PAT, RNA POLYMR, C3, C4 #### [facility] , Platelets [#/volume] in Bloo d by Automated countOrdered By: Brianne Cabreraomar on 03-23-2023 Platelets (Bld) [#/Vol] 237 10*3/uL Normal 150-450 [facility] Comment on above: Performed By: #### C REAT, ESR, CRP, HEPATIC, CK, CBC, MISC LAB #### [facility] [address] [place] [id number] [place] #### ANTI-KU AB, MITOM2, CH50, PAT, RNA POLYMR, C3, C4 #### [facility] , US abdomen limitedon 023 US abdomen limited [facility] [place] [address] [place] [address] Ultrasound Report Signed Patient: Rica Stout MR#: [id number] 39 : 1995 Acct:[id number] Age/Sex: 27 / F ADM Date: 03/22/23 Loc: Room: 7N2431-0 Type: ADM IN Attending Dr: Brianne Umanzor [...] Lowell Blake M.D.03/23/2023 9:35 AM Dictation Location: [place] [address] Tech: Nia Hill Transcribed By: RAJESH 09/02/23 0935 Dictated By: Lowell Blake II, MD 03/23/23930 Signed By: 03/23/23934 Normal [facility] A1C with Estimated Average Richard vital 03-22-2023 Glucose [Mass/Vol] 94 mg/dL Normal [facility] Comment on above: Result Comment: PERF ORMED BY: [place] [address] PATHOLOGIST RIDE OPERATOR RUIZ CLIFTON M.D. Performed By: #### C REAT, ESR, CRP, HEPATIC, CK, CBC, MISC LAB #### [place] [address] [place] #### ANTI-KU AB, MITOM2, CH50, PAT, RNA POLYMR, C3, C4 #### [facility] , PAT with Reflexon 03-22-2023 PAT with Reflex Negative Normal Negative [facility] Comment on above: Result Comment: Perf ormed at: - [facility] [place] [id number] Insurance Policy Clerk: Breezy Jones PhD, Phone: [phone] Performed By: #### C REAT, ESR, CRP, HEPATIC, CK, CBC, MISC LAB #### [place] [address] [place] #### ANTI-KU AB, MITOM2, CH50, PAT, RNA POLYMR, C3, C4 #### [facility] , Aerobic cultureOrdered By: Olivia Peterson on 03-22-2023 Bacteria identified Aer cx Nom (Unsp spec) No Growth 2 Days [facility] Albumin [Mass/volume] in Ser um or PlasmaOrdered By: Chele Gamino on 03-22-2023 Albumin [Mass/Vol] 3.1 g/dL Normal 2.9-4.4 [facility] Comment on above: Performed By: #### C REAT, ESR, CRP, HEPATIC, CK, CBC, MISC LAB #### [place] [address] [place] #### ANTI-KU AB, MITOM2, CH50, PAT, RNA POLYMR, C3, C4 #### [facility] , Alpha tocopherol [Mass/volum e] in Serum or PlasmaOrdered By: Chele Gamino on 03-22-2023 Alpha tocopherol [Mass/Vol] 10.9 mg/L 5.9-19.4 [facility] Comment on above: This test was develo ped and its performance characteristicsdetermined by [facility]. It has not been cleared orapproved by the Food and Drug Administration. Ammonia [Moles/volume] in Pl asmaOrdered By: Chele Gamino on 03-22-2023 Ammonia (P) [Moles/Vol] 57 umol/L High 11-35 F [facility] Comment on above: Result Comment: PERF ORMED BY: [place] [address] PATHOLOGIST RIDE OPERATOR RUIZ CLIFTON M.D. Performed By: #### C REAT, ESR, CRP, HEPATIC, CK, CBC, MISC LAB #### [facility] [address] [place] [address] #### ANTI-KU AB, MITOM2, CH50, PAT, RNA POLYMR, C3, C4 #### [facility] , Amphetamine Screen Ql (U)Ord ered By: Chele Gamino on 03-22-2023 Amphetamines Ql (U) Negative Negative [facility] Anaerobic cultureOrdered By: Bernard Peterson on 03-22-2023 Bacteria identified Anaer cx Nom (Unsp spec) No Anaerobes Isolated 3 Days [facility] Bacterial blood cultureOrder ed By: Bernard Peterson on 03-22-2023 Bacteria identified Cx Nom (Bld) NO GROWTH 5 DAYS [facility] Barbiturates [Presence] in U rine by Screen methodOrdered By: Chele Gamino on 03-22-2023 Barbiturates Screen Ql (U) Negative Negative [facility] Basic Metabolic Panelon 0 Anion gap [Moles/Vol] 13.0 mmol/L Normal 6.0-15.0 [facility] Comment on above: Performed By: #### C REAT, ESR, CRP, HEPATIC, CK, CBC, MISC LAB #### [place] [address] [place] #### ANTI-KU AB, MITOM2, CH50, PAT, RNA POLYMR, C3, C4 #### [facility] , Calcium [Mass/Vol] 7.3 mg/dL Low 8.6-10.3 [facility] Comment on above: Performed By: #### C REAT, ESR, CRP, HEPATIC, CK, CBC, MISC LAB #### [place] [address] [place] #### ANTI-KU AB, MITOM2, CH50, PAT, RNA POLYMR, C3, C4 #### [facility] , Chloride [Moles/Vol] 112 mmol/L High 98-107 [facility] Comment on above: Performed By: #### C REAT, ESR, CRP, HEPATIC, CK, CBC, MISC LAB #### [place] [address] [place] #### ANTI-KU AB, MITOM2, CH50, PAT, RNA POLYMR, C3, C4 #### [facility] , CO2 [Moles/Vol] 18.9 mmol/L Low 21.0-31.0 [facility] Comment on above: Performed By: #### C REAT, ESR, CRP, HEPATIC, CK, CBC, MISC LAB #### [place] [address] [place] #### ANTI-KU AB, MITOM2, CH50, PAT, RNA POLYMR, C3, C4 #### [facility] , Creatinine [Mass/Vol] 0.42 mg/dL Low 0.60-1.20 [facility] Comment on above: Performed By: #### C REAT, ESR, CRP, HEPATIC, CK, CBC, MISC LAB #### [place] [address] [place] #### ANTI-KU AB, MITOM2, CH50, PAT, RNA POLYMR, C3, C4 #### [facility] , Creatinine Clr Calc Pharmacy 173.74 Normal [facility] Comment on above: Performed By: #### C REAT, ESR, CRP, HEPATIC, CK, CBC, MISC LAB #### [place] [address] [place] #### ANTI-KU AB, MITOM2, CH50, PAT, RNA POLYMR, C3, C4 #### [facility] , GFR/1.73 sq M.predicted MDRD (S/P/Bld) [Vol rate/Area] mL/min/{1.73_m2} Normal [facility] Comment on above: Performed By: #### C REAT, ESR, CRP, HEPATIC, CK, CBC, MISC LAB #### [place] [address] [place] #### ANTI-KU AB, MITOM2, CH50, PAT, RNA POLYMR, C3, C4 #### [facility] , Glucose [Mass/Vol] 101 mg/dL High 70-100 [facility] Comment on above: Result Comment: [place] Glucose Reference Range is dependent on time and content of last meal. Glucose of more than 200 mg/dL in a nonstressed, ambulatory subject supports the diagnosis of Diabetes Mellitus. ADA recommended reference range Performed By: #### C REAT, ESR, CRP, HEPATIC, CK, CBC, MISC LAB #### [place] [address] [place] #### ANTI-KU AB, MITOM2, CH50, PAT, RNA POLYMR, C3, C4 #### [facility] , Potassium [Moles/Vol] 3.9 mmol/L Normal 3.5-5.1 [facility] Comment on above: Performed By: #### C REAT, ESR, CRP, HEPATIC, CK, CBC, MISC LAB #### [place] [address] [place] #### ANTI-KU AB, MITOM2, CH50, PAT, RNA POLYMR, C3, C4 #### [facility] , Sodium [Moles/Vol] 140 mmol/L Normal 136-145 [facility] Comment on above: Performed By: #### C REAT, ESR, CRP, HEPATIC, CK, CBC, MISC LAB #### [place] [address] [place] #### ANTI-KU AB, MITOM2, CH50, PAT, RNA POLYMR, C3, C4 #### [facility] , Urea nitrogen [Mass/Vol] 3 mg/dL Low 7-25 [facility] Comment on above: Performed By: #### C REAT, ESR, CRP, HEPATIC, CK, CBC, MISC LAB #### [facility] [address] [place] [address] [place] #### ANTI-KU AB, MITOM2, CH50, PAT, RNA POLYMR, C3, C4 #### [facility] , Benzodiazepines Screen Ql (U )Ordered By: Chele Gamino on 03-22-2023 Benzodiazepines Ql (U) Negative Negative [facility] Benzoylecgonine [Presence] i n Urine by Screen methodOrdered By: Chele Gamino on 03-22-2023 Benzoylecgonine Screen Ql (U) Negative Negative [facility] Bilirubin.direct [Mass/volum e] in Serum or PlasmaOrdered By: Yoana Rico on 03-22-2023 Bilirubin.direct [Mass/Vol] 0.10 mg/dL 0.03-0.[address] [facility] [address] head/brain wo conon 03-22 CT head/brain wo [facility] [place] [address] CT Scan Report Signed Patient: Rica Stout MR#: [id number] : 1995 Acct:[id number] Age/Sex: 27 / F ADM Date: 03/22/23 Loc: Room: [address] [place] [address] Type: ADM IN Attending Dr: Parveen Keller [...] Dave Clark M.D.03/22/2023 8:08 AM Dictation Location: [place] [address] Transcribed By: [facility] 03/22/23807 Dictated By: Dave Clark DO 03/22/23807 Signed By: 03/22/23807 Normal [facility] Cannabinoids [Presence] in U rine by Screen methodOrdered By: Chele Gamino on 03-22-2023 Cannabinoids Screen Ql (U) Negative Negative [facility] Comment on above: These are unconfirme d results and should not be used for legal purposes. Drug Cut-Off Concentration: AMPH 1000 ng/mL ALEXANDRO 200 ng/mL ATILIO 200 ng/mL COCM 300 ng/mL OP 300 ng/mL PCP 25 ng/mL THC 20 ng/mL Cryoglobulin with Quant Refl exon 03-22-2023 Cryoglobulin, Ql, Serum Normal None detected [facility] Comment on above: Result Comment: None Detected at 72 hours This test was developed and its performance characteristics determined by [email or web address]. It has not been cleared or approved by the Food and Drug Administration. Performed at: [address] [id number] Insurance Policy Clerk: Breezy Jones PhD, Phone: [phone] Performed By: #### C REAT, ESR, CRP, HEPATIC, CK, CBC, MISC LAB #### [place] [address] [place] #### ANTI-KU AB, MITOM2, CH50, PAT, RNA POLYMR, C3, C4 #### [facility] , Drug Screen,Urineon 03-22-20 23 Amphetamine Screen,Urine Negative Normal Negative [facility] Comment on above: Performed By: #### C REAT, ESR, CRP, HEPATIC, CK, CBC, MISC LAB #### [address] #### ANTI-KU AB, MITOM2, CH50, PAT, RNA POLYMR, C3, C4 #### [facility] , Barbiturate Screen,Urine Negative Normal Negative [facility] Comment on above: Performed By: #### C REAT, ESR, CRP, HEPATIC, CK, CBC, MISC LAB #### [place] [address] [place] #### ANTI-KU AB, MITOM2, CH50, PAT, RNA POLYMR, C3, C4 #### [facility] , Benzodiazepines Screen,Urine Negative Normal Negative [facility] Comment on above: Performed By: #### C REAT, ESR, CRP, HEPATIC, CK, CBC, MISC LAB #### [address] #### ANTI-KU AB, MITOM2, CH50, PAT, RNA POLYMR, C3, C4 #### [facility] , Cannabinoid Screen,Urine Negative Normal Negative [facility] Comment on above: Result Comment: Thes e are unconfirmed results and should not be used for legal purposes. Drug Cut-Off Concentration: AMPH 1000 ng/mL ALEXANDRO 200 ng/mL ATILIO 200 ng/mL COCM 300 ng/mL OP 300 ng/mL PCP 25 ng/mL THC 20 ng/mL PERFORMED BY: [place] [address] PATHOLOGIST RIDE OPERATOR JIANLAN SUN M.D. Performed By: #### C REAT, ESR, CRP, HEPATIC, CK, CBC, MISC LAB #### [place] [address] [place] #### ANTI-KU AB, MITOM2, CH50, PAT, RNA POLYMR, C3, C4 #### [facility] , Cocaine Screen,Urine Negative Normal Negative [facility] Comment on above: Performed By: #### C REAT, ESR, CRP, HEPATIC, CK, CBC, MISC LAB #### [place] [address] [place] #### ANTI-KU AB, MITOM2, CH50, PAT, RNA POLYMR, C3, C4 #### [facility] , Opiate Screen,Urine Negative Normal Negative [facility] Comment on above: Performed By: #### C REAT, ESR, CRP, HEPATIC, CK, CBC, MISC LAB #### [place] [address] [place] #### ANTI-KU AB, MITOM2, CH50, PAT, RNA POLYMR, C3, C4 #### [facility] , Phencyclidine Screen,Urine Negative Normal Negative [facility] Comment on above: Performed By: #### C REAT, ESR, CRP, HEPATIC, CK, CBC, MISC LAB #### [place] [address] [place] #### ANTI-KU AB, MITOM2, CH50, PAT, RNA POLYMR, C3, C4 #### [facility] , Folate [Mass/volume] in Seru m or PlasmaOrdered By: Yoana Rico on 03-22-2023 Folate [Mass/Vol] 2.3 ng/mL >5.9 [facility] Comment on above: Folate reference ran ge: >5.9 ng/mlThe WHO technical consultation on folate and vitamin [id number] has determined that folate concentrations lessthan 4 ng/ml are considered deficient. Gamma-tocopherol measurement (mass/volume)Ordered By: Chele Gamino on 03-22-2023 Gamma tocopherol [Mass/Vol] 1.9 mg/L 0.7-4.9 [facility] Comment on above: This test was develo ped and its performance characteristicsdetermined by [facility]. It has not been cleared orapproved by the Food and Drug Administration.Reference intervals for alpha and gamma-tocopheroldetermined from National Health and Nutrition ExaminationSurvey, 3747-7808. Individuals with alpha-tocopherol levelsless than 5.0 mg/L are considered vitamin E deficient.Performed at: [address] [id number] Director: Lisa Ramos MD, Phone: [phone] Glucose mean value [Mass/vol ume] in Blood Estimated from glycated hemoglobinOrdered By: Chele Gamino on 03-22-2023 Average glucose Estimated from glycated hemoglobin (Bld) [Mass/Vol] 94 mg/dL [facility] Gram stain for investigation of transfusion reactionOrdered By: Bernard Peterson on 03-22-2023 Microscopic observation Gram stain Nom (Unsp spec) [facility] Hemoglobin A1c percentageOrd ered By: Chele Gamino on 03-22-2023 HbA1c (Bld) [Mass fraction] 4.9 % Normal 4.3-5.6 [facility] Comment on above: Increased risk for d iabetes: 5.7 - 6.4diabetes: >6.4glycemic control for adults with diabetes: <7.0 Result Comment: Incr eased risk for diabetes: 5.7 - 6.4 diabetes: >6.4 glycemic control for adults with diabetes: <7.0 Performed By: #### C REAT, ESR, CRP, HEPATIC, CK, CBC, MISC LAB #### [facility] [address] #### ANTI-KU AB, MITOM2, CH50, PAT, RNA POLYMR, C3, C4 #### [facility] , Hep C Ab wRfx to Qnt PCRon 0 03-22-2023 Hepatitis C Virus Antibody Non-Reactive Normal Non Reactive [facility] Comment on above: Performed By: #### C REAT, ESR, CRP, HEPATIC, CK, CBC, MISC LAB #### [address] #### ANTI-KU AB, MITOM2, CH50, PAT, RNA POLYMR, C3, C4 #### [facility] , Interpretation Hepatitis C Normal . [facility] Comment on above: Result Comment: Not infected with HCV unless early or acute infection is suspected (which may be delayed in an immunocompromised individual), or other evidence exists to indicate HCV infection. Performed at: [facility] [id number] Insurance Policy Clerk: Breezy Jones PhD, Phone: [phone] PERFORMED BY: [place] [address] PATHOLOGIST RIDE OPERATOR RUIZ CLIFTON M.D. Performed By: #### C REAT, ESR, CRP, HEPATIC, CK, CBC, MISC LAB #### [address] #### ANTI-KU AB, MITOM2, CH50, PAT, RNA POLYMR, C3, C4 #### [facility] , Hepatic Panelon 03-22-2023 Albumin [Mass/Vol] 2.7 g/dL Low 3.5-5.7 [facility] Comment on above: Performed By: #### C REAT, ESR, CRP, HEPATIC, CK, CBC, MISC LAB #### [address] #### ANTI-KU AB, MITOM2, CH50, PAT, RNA POLYMR, C3, C4 #### [facility] , Albumin/Globulin [Mass ratio] 1.1 {ratio} Normal [facility] Comment on above: Performed By: #### C REAT, ESR, CRP, HEPATIC, CK, CBC, MISC LAB #### [place] [address] [place] #### ANTI-KU AB, MITOM2, CH50, PAT, RNA POLYMR, C3, C4 #### [facility] , ALP [Catalytic activity/Vol] 80 U/L Normal 34-104 [facility] Comment on above: Performed By: #### C REAT, ESR, CRP, HEPATIC, CK, CBC, MISC LAB #### [address] #### ANTI-KU AB, MITOM2, CH50, PAT, RNA POLYMR, C3, C4 #### [facility] , ALT [Catalytic activity/Vol] 26 U/L Normal 7-52 [facility] Comment on above: Performed By: #### C REAT, ESR, CRP, HEPATIC, CK, CBC, MISC LAB #### [place] [address] [place] #### ANTI-KU AB, MITOM2, CH50, PAT, RNA POLYMR, C3, C4 #### [facility] , AST [Catalytic activity/Vol] 57 U/L High 13-39 [facility] Comment on above: Performed By: #### C REAT, ESR, CRP, HEPATIC, CK, CBC, MISC LAB #### [address] #### ANTI-KU AB, MITOM2, CH50, PAT, RNA POLYMR, C3, C4 #### [facility] , Bilirubin [Mass/Vol] 0.3 mg/dL Normal 0.3-1.0 [facility] Comment on above: Performed By: #### C REAT, ESR, CRP, HEPATIC, CK, CBC, MISC LAB #### [place] [address] [place] #### ANTI-KU AB, MITOM2, CH50, PAT, RNA POLYMR, C3, C4 #### [facility] , Bilirubin,Indirect 0.2 mg/dL Normal [facility] Comment on above: Performed By: #### C REAT, ESR, CRP, HEPATIC, CK, CBC, MISC LAB #### [place] [address] [place] #### ANTI-KU AB, MITOM2, CH50, PAT, RNA POLYMR, C3, C4 #### [facility] , Bilirubin.indirect [Mass/Vol] 0.10 mg/dL Normal 0.03-0.18 [facility] Comment on above: Performed By: #### C REAT, ESR, CRP, HEPATIC, CK, CBC, MISC LAB #### [place] [address] [place] #### ANTI-KU AB, MITOM2, CH50, PAT, RNA POLYMR, C3, C4 #### [facility] , Globulin (S) [Mass/Vol] 2.5 g/dL Normal T [facility] Comment on above: Performed By: #### C REAT, ESR, CRP, HEPATIC, CK, CBC, MISC LAB #### [place] [address] [place] #### ANTI-KU AB, MITOM2, CH50, PAT, RNA POLYMR, C3, C4 #### [facility] , Protein [Mass/Vol] 5.2 g/dL Significant change down 6.4-8.9 [facility] Comment on above: Performed By: #### C REAT, ESR, CRP, HEPATIC, CK, CBC, MISC LAB #### [place] [address] [place] #### ANTI-KU AB, MITOM2, CH50, PAT, RNA POLYMR, C3, C4 #### [facility] , Hepatitis C virus IgG Ab [Pr esence] in Serum or Plasma by ImmunoassayOrdered By: Chele Gamino on 03-22-2023 HCV IgG IA Ql Non-Reactive Non Reactive [facility] IgA [Mass/volume] in Serum o r PlasmaOrdered By: hCele Gamino on 03-22-2023 IgA [Mass/Vol] 485 mg/dL 87-352 [facility] IgG [Mass/volume] in Serum o r PlasmaOrdered By: Chele Gamino on 03-22-2023 IgG [Mass/Vol] 1046 mg/dL 586-1602 [facility] IgM [Mass/volume] in Serum o r PlasmaOrdered By: Chele Gamino on 03-22-2023 IgM [Mass/Vol] 343 mg/dL [facility] Immunofixation,Serumon 03-22 Immunofixation, Serum Normal . [facility] Comment on above: Result Comment: No m onoclonality detected. Performed By: #### C REAT, ESR, CRP, HEPATIC, CK, CBC, MISC LAB #### [place] [address] [place] #### ANTI-KU AB, MITOM2, CH50, PAT, RNA POLYMR, C3, C4 #### [facility] , Immunoglobulin A, Serum 485 mg/dL High 87-352 [facility] Comment on above: Performed By: #### C REAT, ESR, CRP, HEPATIC, CK, CBC, MISC LAB #### [place] [address] [place] #### ANTI-KU AB, MITOM2, CH50, PAT, RNA POLYMR, C3, C4 #### [facility] , Immunoglobulin G 1046 mg/dL Normal 586-1602 [facility] Comment on above: Performed By: #### C REAT, ESR, CRP, HEPATIC, CK, CBC, MISC LAB #### [address] #### ANTI-KU AB, MITOM2, CH50, PAT, RNA POLYMR, C3, C4 #### [facility] , Immunoglobulin M, Serum 343 mg/dL High -217 [facility] Comment on above: Performed By: #### C REAT, ESR, CRP, HEPATIC, CK, CBC, MISC LAB #### [facility] [address] [place] [address] [place] #### ANTI-KU AB, MITOM2, CH50, PAT, RNA POLYMR, C3, C4 #### [facility] , Lactate [Moles/volume] in Se rum or PlasmaOrdered By: Brianne Umanzor on 03-22-2023 Lactate [Moles/Vol] 3.4 mmol/L 0.5-2.2 [facility] Comment on above: Critical Result : Ca lled to and read back by: KHUSHBU OLIVARES at: 03/22/2023 15:35:40 by:ACE Lactic Acidon 03-22-2023 Lactate [Moles/Vol] 4.4 mmol/L Off scale high 0.5-2.2 [facility] Comment on above: Result Comment: Crit ical Result : Called to and read back by: GINNY ZARATE/Berta at: 03/22/2023 11:08:56 by:[id number] PERFORMED BY: [place] [address] PATHOLOGIST RIDE OPERATOR RUIZ CLIFTON M.D. Performed By: #### C REAT, ESR, CRP, HEPATIC, CK, CBC, MISC LAB #### [facility] [address] [place] [address] #### ANTI-KU AB, MITOM2, CH50, PAT, RNA POLYMR, C3, C4 #### [facility] , Lactic Acid Reflexon 023 Lactic Acid Reflex 3.4 mmol/L Off scale high 0.5-2.2 [facility] Comment on above: Result Comment: Crit ical Result : Called to and read back by: KHUSHBU OLIVARES at: 03/22/2023 15:35:40 by:ACE PERFORMED BY: [place] [address] PATHOLOGIST RIDE OPERATOR RUIZ CLIFTON M.D. Performed By: #### L ACTIC RFX #### [facility] [address] [place] [address] Lactic Acid Reflex 3.9 mmol/L Off scale high 0.5-2.2 [facility] Comment on above: Result Comment: Crit ical Result : Called to and read back by: ADIEL MARTÍNEZ at: 03/22/2023 02:09:36 by:[email or web address] PERFORMED BY: [address] [address] PATHOLOGIST RIDE OPERATOR RUIZ CLIFTON M.D. Performed By: #### C REAT, ESR, CRP, HEPATIC, CK, CBC, MISC LAB #### [facility] [address] [place] [address] [place] #### ANTI-KU AB, MITOM2, CH50, PAT, RNA POLYMR, C3, C4 #### [facility] , MR head/brain wo/w conon MR head/brain wo/w con [facility] [place] [address] [place] [address] MRI Report Signed Patient: Rica Stout MR#: [id number] 39 : 1995 Acct:[id number] Age/Sex: 27 / F ADM Date: 03/22/23 Loc: Room: [address] [place] [address] Type: ADM IN Attending Dr: Brianne Umanzor [...] Lowell Blake M.D.03/22/2023 3:05 PM Dictation Location: [place] [address] Transcribed By: [facility] 03/22/23 1505 Dictated By: Lowell Blake II, MD 03/22/23 1454 Signed By: 03/22/23 1505 Normal [facility] Magnesiumon 03-22-2023 Magnesium [Mass/Vol] 1.7 mg/dL Low 1.9-2.7 [facility] Comment on above: Result Comment: PERF ORMED BY: [place] [address] PATHOLOGIST RIDE OPERATOR RUIZ CLIFTON M.D. Performed By: #### C REAT, ESR, CRP, HEPATIC, CK, CBC, MISC LAB #### [address] #### ANTI-KU AB, MITOM2, CH50, PAT, RNA POLYMR, C3, C4 #### [facility] , No Panel InformationOrdered By: Chele Gamino on 03-22-2023 Hepatitis C Interpretation See comment . [facility] Comment on above: Not infected with HC V unless early or acute infection issuspected (which may be delayed in an immunocompromisedindividual), or other evidence exists to indicate HCVinfection.Performed at: [id number] [place], [place] [id number] Director: Breezy Jones PhD, Phone: [phone] Hepatitis C RNA Quantitative N/A [facility] Protein Electrophoresis M-Tomas Not observed g/dL Not Observed [facility] Protein Electrophoresis Note See comment . [facility] Comment on above: Protein electrophore sis scan will follow via computer,mail, or slurry worker delivery.Performed at: [facility] [id number] [place], [place] [id number] Director: Breezy Jones PhD, Phone: [phone] Serum Immunofixation See comment . [facility] Comment on above: No monoclonality det ected. Opiates [Presence] in Urine by Screen methodOrdered By: Chele Gamino on 03-22-2023 Opiates Screen Ql (U) Negative Negative [facility] Phencyclidine Screen Ql (U)O rdered By: Chele Gamino on 03-22-2023 Phencyclidine Ql (U) Negative Negative [facility] Phosphate [Mass/volume] in S caitlyn or PlasmaOrdered By: Yoana Rico on 03-22-2023 Phosphate [Mass/Vol] 3.4 mg/dL Low 3.7-7.2 [facility] Comment on above: Performed By: #### C REAT, ESR, CRP, HEPATIC, CK, CBC, MISC LAB #### [facility] [address] [place] [address] [place] #### ANTI-KU AB, MITOM2, CH50, PAT, RNA POLYMR, C3, C4 #### [facility] , Protein Electrophoresis, Ser umon 03-22-2023 Rqyng-0-Oaxqjmcr 0.2 g/dL Normal 0.0-0.4 [facility] Comment on above: Performed By: #### C REAT, ESR, CRP, HEPATIC, CK, CBC, MISC LAB #### [facility] [address] [place] [address] [place] #### ANTI-KU AB, MITOM2, CH50, PAT, RNA POLYMR, C3, C4 #### [facility] , Vgmso-8-Qsbgdblg 0.7 g/dL Normal 0.4-1.0 [facility] Comment on above: Performed By: #### C REAT, ESR, CRP, HEPATIC, CK, CBC, MISC LAB #### [facility] [address] [place] [address] [place] #### ANTI-KU AB, MITOM2, CH50, PAT, RNA POLYMR, C3, C4 #### [facility] , Beta Globulin 0.9 g/dL Normal 0.7-1.3 [facility] Comment on above: Performed By: #### C REAT, ESR, CRP, HEPATIC, CK, CBC, MISC LAB #### [facility] [address] [place] [address] [place] #### ANTI-KU AB, MITOM2, CH50, PAT, RNA POLYMR, C3, C4 #### [facility] , Gamma Globulin 1.1 g/dL Normal 0.4-1.8 [facility] Comment on above: Performed By: #### C REAT, ESR, CRP, HEPATIC, CK, CBC, MISC LAB #### [place] [address] [place] #### ANTI-KU AB, MITOM2, CH50, PAT, RNA POLYMR, C3, C4 #### [facility] , M-Tomas Not Observed Normal Not Observed [facility] Comment on above: Performed By: #### C REAT, ESR, CRP, HEPATIC, CK, CBC, MISC LAB #### [address] #### ANTI-KU AB, MITOM2, CH50, PAT, RNA POLYMR, C3, C4 #### [facility] , SPE-Note Normal . [facility] Comment on above: Result Comment: Prot ein electrophoresis scan will follow via computer, mail, or slurry worker delivery. Performed at: [facility] [address] [id number] Insurance Policy Clerk: Breezy Jones PhD, Phone: [phone] PERFORMED BY: [place] [address] PATHOLOGIST RIDE OPERATOR RUIZ CLIFTON M.D. Performed By: #### C REAT, ESR, CRP, HEPATIC, CK, CBC, MISC LAB #### [place] [address] [place] #### ANTI-KU AB, MITOM2, CH50, PAT, RNA POLYMR, C3, C4 #### [facility] , Protein [Mass/volume] in Ser um or PlasmaOrdered By: Chele Gamino on 03-22-2023 Protein [Mass/Vol] 5.9 g/dL Low 6.0-8.5 [facility] Comment on above: Performed By: #### C REAT, ESR, CRP, HEPATIC, CK, CBC, MISC LAB #### [facility] [address] [place] [address] [place] #### ANTI-KU AB, MITOM2, CH50, PAT, RNA POLYMR, C3, C4 #### [facility] , Serum cryoglobulin detection Ordered By: Chele Gamino on 03-22-2023 Cryoglobulin Ql (S) See comment None detected [facility] Comment on above: None Detected at 72 hoursThis test was developed and its performance characteristicsdetermined by [employer]. It has not been cleared orapproved by the Food and Drug Administration.Performed at: [facility] [employer] [id number] Director: Breezy Jones PhD, Phone: [phone] Serum globulin measurement ( mass/volume)Ordered By: Chele Gamino on 03-22-2023 Globulin (S) [Mass/Vol] 2.8 g/dL Normal 2.2-3.9 [facility] Comment on above: Performed By: #### C REAT, ESR, CRP, HEPATIC, CK, CBC, MISC LAB #### [facility] [address] [place] [address] [place] #### ANTI-KU AB, MITOM2, CH50, PAT, RNA POLYMR, C3, C4 #### [facility] , Serum or plasma albumin/glob ulin mass ratioOrdered By: Chele Gamino on 03-22-2023 Albumin/Globulin [Mass ratio] 1.1 {ratio} Normal 0.7-1.7 [facility] Comment on above: Performed By: #### C REAT, ESR, CRP, HEPATIC, CK, CBC, MISC LAB #### [facility] [address] [place] [address] [place] #### ANTI-KU AB, MITOM2, CH50, PAT, RNA POLYMR, C3, C4 #### [facility] , Serum or plasma alpha 1 glob ulin measurement by electrophoresis (mass/volume)Ordered By: Chele Gamino on 03-22-2023 Alpha 1 globulin Elph [Mass/Vol] 0.2 g/dL 0.0-0.4 [facility] Serum or plasma alpha 2 glob ulin measurement by electrophoresis (mass/volume)Ordered By: Chele Gamino on 03-22-2023 Alpha 2 globulin Elph [Mass/Vol] 0.7 g/dL 0.4-1.0 [facility] Serum or plasma beta globuli n measurement by electrophoresis (mass/volume)Ordered By: Chele Gamino on 03-22-2023 Beta globulin Elph [Mass/Vol] 0.9 g/dL 0.7-1.3 [facility] Serum or plasma free cefurox audelia measurement (mass/volume)Ordered By: Chele Gamino on 03-22-2023 Cefuroxime free [Mass/Vol] Negative Negative [facility] Comment on above: Performed at: [place] [id number] Director: Breezy Jones PhD, Phone: [phone] Serum or plasma gamma globul in measurement by electrophoresis (mass/volume)Ordered By: Chele Gamino on 03-22-2023 Gamma globulin Elph [Mass/Vol] 1.1 g/dL 0.4-1.8 [facility] Serum or plasma non-glucuron idated bilirubin measurement (mass/volume)Ordered By: Yoana Rico on 03-22-2023 Bilirubin.indirect [Mass/Vol] 0.2 mg/dL [facility] Thyrotropin [Units/volume] i n Serum or PlasmaOrdered By: Chele Gamino on 03-22-2023 TSH Qn 2.53 m[IU]/L Normal 0.45-5.33 [facility] Comment on above: Result Comment: PERF ORMED BY: [place] [address] PATHOLOGIST RIDE OPERATOR RUIZ CLIFTON M.D. Performed By: #### C REAT, ESR, CRP, HEPATIC, CK, CBC, MISC LAB #### [place] [address] [place] #### ANTI-KU AB, MITOM2, CH50, PAT, RNA POLYMR, C3, C4 #### [facility] , Vit. B12/Folate Profileon Folate 2.3 ng/mL Low >5.9 [facility] Comment on above: Result Comment: Astrid te reference range: >5.9 ng/ml The WHO technical consultation on folate and vitamin b12 deficiencies has determined that folate concentrations less than 4 ng/ml are considered deficient. PERFORMED BY: [place] [address] PATHOLOGIST RIDE OPERATOR RUIZ CLIFTON M.D. Performed By: #### C REAT, ESR, CRP, HEPATIC, CK, CBC, MISC LAB #### [address] #### ANTI-KU AB, MITOM2, CH50, PAT, RNA POLYMR, C3, C4 #### [facility] , Vitamin B12 ser/plasOrdered By: Yoana Rico on 03-22-2023 Cobalamin (Vitamin B12) [Mass/Vol] 417 pg/mL Normal 180-914 [facility] Comment on above: Performed By: #### C REAT, ESR, CRP, HEPATIC, CK, CBC, MISC LAB #### [place] [address] [place] #### ANTI-KU AB, MITOM2, CH50, PAT, RNA POLYMR, C3, C4 #### [facility] , Vitamin E, Alpha Gamma Tocop on 03-22-2023 Vitamin E Alpha Tocopherol 10.9 mg/L Normal 5.9-19.4 [facility] Comment on above: Result Comment: This test was developed and its performance characteristics determined by [facility]. It has not been cleared or approved by the Food and Drug Administration. Performed By: #### C REAT, ESR, CRP, HEPATIC, CK, CBC, MISC LAB #### [place] [address] [place] #### ANTI-KU AB, MITOM2, CH50, PAT, RNA POLYMR, C3, C4 #### [facility] , Vitamin E GammaTocopherol 1.9 mg/L Normal 0.7-4.9 [facility] Comment on above: Result Comment: This test was developed and its performance characteristics determined by [facility]. It has not been cleared or approved by the Food and Drug Administration. Reference intervals for alpha and gamma-tocopherol determined from National Health and Nutrition Examination Survey, 8141-8551. Individuals with alpha-tocopherol levels less than 5.0 mg/L are considered vitamin E deficient. Performed at: [address] [id number] Insurance Policy Clerk: Lisa Ramos MD, Phone: [phone] Performed By: #### C REAT, ESR, CRP, HEPATIC, CK, CBC, MISC LAB #### [place] [address] [place] #### ANTI-KU AB, MITOM2, CH50, PAT, RNA POLYMR, C3, C4 #### [facility] , XR chest 1V portableon 03-22 XR chest 1V portable [facility] [place] [address] [place] [address] XRay Report Signed Patient: Rica Stout MR#: [id number] 39 : 1995 Acct:[id number] Age/Sex: 27 / F ADM Date: 03/22/23 Loc: Room: [address] [place] [address] Type: ADM IN Attending Dr: Parveen Keller [...] Dave Clark M.D.03/22/2023 8:07 AM Dictation Location: [place] [address] Transcribed By: [facility] 03/22/23806 Dictated By: Dave Clark DO 03/22/23806 Signed By: 03/22/23806 Normal [facility] XR pre/post mri xrayon 03-22 XR pre/post mri xray [facility] [place] [address] MRI Report Signed Patient: Rica Stout MR#: [id number] 39 : 1995 Acct:[id number] Age/Sex: 27 / F ADM Date: 03/22/23 Loc: Room: [address] [place] [address] Type: ADM IN Attending Dr: Brianne Umanzor MD Copies to: DO Brianne Stevenson MD Ordering Provider: Chele Gamino DO; Brianne Umanzor MD Date of Service: 03/22/23 MR/MR lumbar spine wo/w con: CIDP rule out ([id number]) XR/XR pre/post mri xray: . MR lumbar [...] Lowell Blake M.D.03/22/2023 3:10 PM Dictation Location: [place] [address] Transcribed By: [facility] 03/22/23 1510 Dictated By: Lowell Blake II, MD 03/22/23 1505 Signed By: 03/22/23 1510 Normal [facility] Activated partial thrombopla stin time (aPTT) in platelet poor plasma by coagulation aOrdered By: Bernard Peterson on 03-21-2023 aPTT Coag (PPP) [Time] 30.4 s 25.1-36.5 [facility] Aerobic Cultureon 03-21-2023 Aerobic Culture Comment Tube 2 No Growth 2 Days Comment Tube 2 No Anaerobes Isolated 3 Days Comment Tube 2 Gram Stain Result No Bacteria Seen No White Blood Cells Seen PERFORMED BY: [place] [address] PATHOLOGIST RIDE OPERATOR RUIZ CLIFTON M.D. Normal [facility] Comment on above: Performed By: #### C REAT, ESR, CRP, HEPATIC, CK, CBC, MISC LAB #### [place] [address] [place] #### ANTI-KU AB, MITOM2, CH50, PAT, RNA POLYMR, C3, C4 #### [facility] , Aerobic cultureOrdered By: Olivia Peterson on 03-21-2023 Bacteria identified Aer cx Nom (Unsp spec) No Growth 2 Days [facility] Alanine aminotransferase [En zymatic activity/volume] in Serum or PlasmaOrdered By: Bernard Lrarthy on 03-21-2023 ALT [Catalytic activity/Vol] 37 U/L Normal 7-52 [facility] Comment on above: Performed By: #### C REAT, ESR, CRP, HEPATIC, CK, CBC, MISC LAB #### [place] [address] [place] #### ANTI-KU AB, MITOM2, CH50, PAT, RNA POLYMR, C3, C4 #### [facility] , Albumin [Mass/volume] in Ser um or Plasma by Bromocresol green (BCG) dye binding methoOrdered By: Bernard Peterson on 03-21-2023 Albumin BCG dye [Mass/Vol] 3.5 g/dL 3.5-5.7 [facility] Alkaline phosphatase [Enzyma tic activity/volume] in Serum or PlasmaOrdered By: Bernard Peterson on 03-21-2023 ALP [Catalytic activity/Vol] 112 U/L High 34-104 [facility] Comment on above: Performed By: #### C REAT, ESR, CRP, HEPATIC, CK, CBC, MISC LAB #### [place] [address] [place] #### ANTI-KU AB, MITOM2, CH50, PAT, RNA POLYMR, C3, C4 #### [facility] , Anaerobic cultureOrdered By: Bernard Peterson on 03-21-2023 Bacteria identified Anaer cx Nom (Unsp spec) No Anaerobes Isolated 3 Days [facility] Aspartate aminotransferase [ Enzymatic activity/volume] in Serum or PlasmaOrdered By: Bernardmyrna Peterson on 03-21-2023 AST [Catalytic activity/Vol] 79 U/L High 13-39 [facility] Comment on above: Performed By: #### C REAT, ESR, CRP, HEPATIC, CK, CBC, MISC LAB #### [place] [address] [place] #### ANTI-KU AB, MITOM2, CH50, PAT, RNA POLYMR, C3, C4 #### [facility] , Automated basophil %Ordered By: Bernard Lrarthy on 03-21-2023 Basophils/100 WBC (Bld) 1.6 % Normal . [facility] Comment on above: Performed By: #### C REAT, ESR, CRP, HEPATIC, CK, CBC, MISC LAB #### [place] [address] [place] #### ANTI-KU AB, MITOM2, CH50, PAT, RNA POLYMR, C3, C4 #### [facility] , Automated basophil countOrde red By: Bernard Lrarthy on 03-21-2023 Basophils (Bld) [#/Vol] 0.1 10*3/uL Normal 0.0-0.2 [facility] Comment on above: Performed By: #### C REAT, ESR, CRP, HEPATIC, CK, CBC, MISC LAB #### [address] #### ANTI-KU AB, MITOM2, CH50, PAT, RNA POLYMR, C3, C4 #### [facility] , Automated blood monocyte cou ntOrdered By: Bernard Grace on 03-21-2023 Monocytes (Bld) [#/Vol] 0.5 10*3/uL Normal 0.0-0.8 [facility] Comment on above: Performed By: #### C REAT, ESR, CRP, HEPATIC, CK, CBC, MISC LAB #### [place] [address] [place] #### ANTI-KU AB, MITOM2, CH50, PAT, RNA POLYMR, C3, C4 #### [facility] , Automated eosinophil %Ordere d By: Bernardmyrna Peterson on 03-21-2023 Eosinophils/100 WBC (Bld) 2.7 % Normal . [facility] Comment on above: Performed By: #### C REAT, ESR, CRP, HEPATIC, CK, CBC, MISC LAB #### [facility] [address] [place] [address] [place] #### ANTI-KU AB, MITOM2, CH50, PAT, RNA POLYMR, C3, C4 #### [facility] , Automated eosinophil countOr dered By: Bernard Gay on 03-21-2023 Eosinophils (Bld) [#/Vol] 0.2 10*3/uL Normal 0.0-0.45 [facility] Comment on above: Performed By: #### C REAT, ESR, CRP, HEPATIC, CK, CBC, MISC LAB #### [place] [address] [place] #### ANTI-KU AB, MITOM2, CH50, PAT, RNA POLYMR, C3, C4 #### [facility] , Automated erythrocytes count in urine sediment (number/area)Ordered By: PROVIDER TEMP on 03-21-2023 RBC Auto (Urine sed) [#/Area] 0-1 [HPF] 0-4 [facility] Automated leukocytes count i n urine sediment (number/area)Ordered By: PROVIDER TEMP on 03-21-2023 WBC Auto (Urine sed) [#/Area] 20-49 [HPF] 0-4 [facility] Automated monocyte %Ordered By: Bernard Grace on 03-21-2023 Monocytes/100 WBC (Bld) 7.6 % Normal . [facility] Comment on above: Performed By: #### C REAT, ESR, CRP, HEPATIC, CK, CBC, MISC LAB #### [place] [address] [place] #### ANTI-KU AB, MITOM2, CH50, PAT, RNA POLYMR, C3, C4 #### [facility] , Automated neutrophil %Ordere d By: Bernard Grace on 03-21-2023 Neutrophils/100 WBC (Bld) 58.4 % Normal . [facility] Comment on above: Performed By: #### C REAT, ESR, CRP, HEPATIC, CK, CBC, MISC LAB #### [place] [address] [place] #### ANTI-KU AB, MITOM2, CH50, PAT, RNA POLYMR, C3, C4 #### [facility] , Automated urine color determ inationOrdered By: PROVIDER TEMP on 03-21-2023 Color (U) Yellow Normal Yellow [facility] Comment on above: Order Comment: Name Collection Type:: Clean-Voided Midstream Performed By: #### C REAT, ESR, CRP, HEPATIC, CK, CBC, MISC LAB #### [place] [address] [place] #### ANTI-KU AB, MITOM2, CH50, PAT, RNA POLYMR, C3, C4 #### [facility] , Automated urine hyaline cast s count (number/volume)Ordered By: PROVIDER TEMP on 03-21-2023 Hyaline casts Auto (U) [#/Vol] None seen [LPF] 0-1 [facility] Bacterial blood cultureOrder ed By: Bernard Peterson on 03-21-2023 Bacteria identified Cx Nom (Bld) NO GROWTH 5 DAYS [facility] Basic Metabolic Panelon 02-21 Creatinine Clr Calc Pharm[facility] 148.92 Normal [facility] Comment on above: Performed By: #### C REAT, ESR, CRP, HEPATIC, CK, CBC, MISC LAB #### [place] [address] [place] #### ANTI-KU AB, MITOM2, CH50, PAT, RNA POLYMR, C3, C4 #### [facility] , GFR/1.73 sq M.predicted MDRD (S/P/Bld) [Vol rate/Area] mL/min/{1.73_m2} Normal [facility] Comment on above: Performed By: #### C REAT, ESR, CRP, HEPATIC, CK, CBC, MISC LAB #### [place] [address] [place] #### ANTI-KU AB, MITOM2, CH50, PAT, RNA POLYMR, C3, C4 #### [facility] , Bilirubin Test strip Ql (U)O rdered By: PROVIDER TEMP on 03-21-2023 Bilirubin Ql (U) Negative Negative [facility] Bilirubin.direct [Mass/volum e] in Serum or PlasmaOrdered By: Bernard Peterson on 03-21-2023 Bilirubin.direct [Mass/Vol] 0.10 mg/dL 0.03-0.18 [facility] Bilirubin.total [Mass/volume ] in Serum or PlasmaOrdered By: Bernard Peterson on 03-21-2023 Bilirubin [Mass/Vol] 0.5 mg/dL Normal 0.3-1.0 [facility] Comment on above: Performed By: #### C REAT, ESR, CRP, HEPATIC, CK, CBC, MISC LAB #### [place] [address] [place] #### ANTI-KU AB, MITOM2, CH50, PAT, RNA POLYMR, C3, C4 #### [facility] , Blood Cultureon 03-21-2023 Bacteria identified Cx Nom (Bld) NO GROWTH 5 DAYS PERFORMED BY: [place] [address] PATHOLOGIST RIDE OPERATOR RUIZ CLIFTON M.D. Normal [facility] Comment on above: Performed By: #### C REAT, ESR, CRP, HEPATIC, CK, CBC, MISC LAB #### [place] [address] [place] #### ANTI-KU AB, MITOM2, CH50, PAT, RNA POLYMR, C3, C4 #### [facility] , Bacteria identified Cx Nom (Bld) NO GROWTH 5 DAYS PERFORMED BY: [place] [address] PATHOLOGIST RIDE OPERATOR RUIZ CLIFTON M.D. Normal [facility] Comment on above: Performed By: #### C REAT, ESR, CRP, HEPATIC, CK, CBC, MISC LAB #### [place] [address] [place] #### ANTI-KU AB, MITOM2, CH50, PAT, RNA POLYMR, C3, C4 #### [facility] , C reactive protein [Mass/vol ume] in Serum or PlasmaOrdered By: Bernard Peterson on 03-21-2023 CRP [Mass/Vol] < 0.5 mg/dL 0.0-0.5 [facility] C-Reactive Proteinon 023 CRP [Mass/Vol] mg/L Normal 0.0-0.5 [facility] Comment on above: Result Comment: PERF ORMED BY: [place] [address] PATHOLOGIST RIDE OPERATOR RUIZ CLIFTON M.D. Performed By: #### C REAT, ESR, CRP, HEPATIC, CK, CBC, MISC LAB #### [address] #### ANTI-KU AB, MITOM2, CH50, PAT, [...] Varicella zoster virus Not detected PERFORMED BY: [place] [address] PATHOLOGIST RIDE OPERATOR RUIZ CLIFTON M.D. Normal [facility] Comment on above: Performed By: #### C REAT, ESR, CRP, HEPATIC, CK, CBC, MISC LAB #### [place] [address] [place] #### ANTI-KU AB, MITOM2, CH50, PAT, RNA POLYMR, C3, C4 #### [facility] , CSF and Ser Oligoclonal Band son 03-21-2023 Oligoclonal Bands Interpret Normal . [facility] Comment on above: Order Comment: Comme nt Tube 4 Result Comment: Zero (0) oligoclonal bands were observed in the CSF. However two (2) paired bands were observed in both the CSF and serum. Paired bands suggest an immune response to an inflammatory process outside the RADIATION TECHNICIAN and are unlikely to represent a RADIATION TECHNICIAN demyelinating disease. Interpretation: Criteria for Positivity: Four [...] Focusing (IEF) and immunoblotting methodology. Performed at: [facility] [address] [id number] Insurance Policy Clerk: Breezy Jones PhD, Phone: [phone] PERFORMED BY: [place] [address] PATHOLOGIST RIDE OPERATOR RUIZ CLIFTON M.D. Performed By: #### C REAT, ESR, CRP, HEPATIC, CK, CBC, MISC LAB #### [place] [address] [place] #### ANTI-KU AB, MITOM2, CH50, PAT, RNA POLYMR, C3, C4 #### [facility] , Calcium [Mass/volume] in Ser um or PlasmaOrdered By: Bernard Lrarthy on 03-21-2023 Calcium [Mass/Vol] 8.5 mg/dL Low 8.6-10.3 [facility] Comment on above: Performed By: #### C REAT, ESR, CRP, HEPATIC, CK, CBC, MISC LAB #### [facility] [address] [place] [address] [place] #### ANTI-KU AB, MITOM2, CH50, PAT, RNA POLYMR, C3, C4 #### [facility] , Carbon dioxide, total [Moles /volume] in Serum or PlasmaOrdered By: Bernard Peterson on 03-21-2023 CO2 [Moles/Vol] 20.0 mmol/L Low 21.0-31.0 [facility] Comment on above: Performed By: #### C REAT, ESR, CRP, HEPATIC, CK, CBC, MISC LAB #### [facility] [address] [place] [address] [place] #### ANTI-KU AB, MITOM2, CH50, PAT, RNA POLYMR, C3, C4 #### [facility] , Casts typing in urine sedime nt by light microscopyOrdered By: PROVIDER TEMP on 03-21-2023 Casts LM Nom (Urine sed) None seen [LPF] None Seen [facility] Cell Count Differential,CSFo n 03-21-2023 Appearance, CSF Clear Normal Clear [facility] Comment on above: Order Comment: Comme nt Tube 1 Performed By: #### C REAT, ESR, CRP, HEPATIC, CK, CBC, MISC LAB #### [facility] [address] [place] [address] [place] #### ANTI-KU AB, MITOM2, CH50, PAT, RNA POLYMR, C3, C4 #### [facility] , Order Comment: Comme nt Tube 3 Color, CSF Colorless Normal Colorless [facility] Comment on above: Order Comment: Comme nt Tube 1 Performed By: #### C REAT, ESR, CRP, HEPATIC, CK, CBC, MISC LAB #### [address] #### ANTI-KU AB, MITOM2, CH50, PAT, RNA POLYMR, C3, C4 #### [facility] , Order Comment: Comme nt Tube 3 Comment, CSF Normal [facility] Comment on above: Order Comment: Comme nt Tube 1 Result Comment: NO N UCLEATED CELLS SEEN. DIFFERENTIAL NOT PREFORMED Performed By: #### C REAT, ESR, CRP, HEPATIC, CK, CBC, MISC LAB #### [address] #### ANTI-KU AB, MITOM2, CH50, PAT, RNA POLYMR, C3, C4 #### [facility] , Order Comment: Comme nt Tube 3 Result Comment: NO N UCLEATED CELL SEEN. DIFFERENTIAL NOT PREFORMED CSF Supernatant Color Colorless Normal Colorless [facility] Comment on above: Order Comment: Comme nt Tube 1 Performed By: #### C REAT, ESR, CRP, HEPATIC, CK, CBC, MISC LAB #### [address] #### ANTI-KU AB, MITOM2, CH50, PAT, RNA POLYMR, C3, C4 #### [facility] , Order Comment: Comme nt Tube 3 CSF Volume, Total 3.5 mL Normal [facility] Comment on above: Order Comment: Comme nt Tube 1 Performed By: #### C REAT, ESR, CRP, HEPATIC, CK, CBC, MISC LAB #### [place] [address] [place] #### ANTI-KU AB, MITOM2, CH50, PAT, RNA POLYMR, C3, C4 #### [facility] , Order Comment: Comme nt Tube 3 RBC, CSF 11 /uL Normal [facility] Comment on above: Order Comment: Comme nt Tube 1 Result Comment: The reference interval and other method performance specifications have not been established for this body fluid. The test result must be integrated into the clinical context for interpretation. Performed By: #### C REAT, ESR, CRP, HEPATIC, CK, CBC, MISC LAB #### [address] #### ANTI-KU AB, MITOM2, CH50, PAT, RNA POLYMR, C3, C4 #### [facility] , TNC, CSF 0 /uL Normal 0-5 [facility] Comment on above: Order Comment: Comme nt Tube 1 Performed By: #### C REAT, ESR, CRP, HEPATIC, CK, CBC, MISC LAB #### [address] #### ANTI-KU AB, MITOM2, CH50, PAT, RNA POLYMR, C3, C4 #### [facility] , Order Comment: Comme nt Tube 3 Tube Number Tested, CSF Tube Number: 1 Normal [facility] Comment on above: Order Comment: Comme nt Tube 1 Result Comment: PERF ORMED BY: [place] [address] PATHOLOGIST RIDE OPERATOR RUIZ CLIFTON M.D. Performed By: #### C REAT, ESR, CRP, HEPATIC, CK, CBC, MISC LAB #### [address] #### ANTI-KU AB, MITOM2, CH50, PAT, RNA POLYMR, C3, C4 #### [facility] , Cell Count Differential,CSF #2on 03-21-2023 RBC, CSF 0 /uL Normal [facility] Comment on above: Order Comment: Comme nt Tube 3 Result Comment: The reference interval and other method performance specifications have not been established for this body fluid. The test result must be integrated into the clinical context for interpretation. Performed By: #### C REAT, ESR, CRP, HEPATIC, CK, CBC, MISC LAB #### [address] #### ANTI-KU AB, MITOM2, CH50, PAT, RNA POLYMR, C3, C4 #### [facility] , Tube Number Tested, CSF Tube Number: 3 Normal [facility] Comment on above: Order Comment: Comme nt Tube 3 Result Comment: PERF ORMED BY: [place] [address] PATHOLOGIST RIDE OPERATOR RUIZ CLIFTON M.D. Performed By: #### C REAT, ESR, CRP, HEPATIC, CK, CBC, MISC LAB #### [place] [address] [place] #### ANTI-KU AB, MITOM2, CH50, PAT, RNA POLYMR, C3, C4 #### [facility] , Cerebrospinal fluid post-chloé trifugation appearance determinationOrdered By: Bernard Peterson on 03-21-2023 Appearance (Spun CSF) Colorless Colorless [facility] Cerebrospinal fluid sample t ube volume measurementOrdered By: Bernard Peterson on 03-21-2023 Specimen volume (CSF) 3.5 mL [facility] Chloride [Moles/volume] in S caitlyn or PlasmaOrdered By: Bernard Peterson on 03-21-2023 Chloride [Moles/Vol] 108 mmol/L High 98-107 [facility] Comment on above: Performed By: #### C REAT, ESR, CRP, HEPATIC, CK, CBC, MISC LAB #### [place] [address] [place] #### ANTI-KU AB, MITOM2, CH50, PAT, RNA POLYMR, C3, C4 #### [facility] , Color CSFOrdered By: Bernard Peterson on 03-21-2023 Color (CSF) Colorless Colorless [facility] Complete Blood Count Auto Di ffon 03-21-2023 Mean Corpuscular HGB Conc 33.5 g/dL Normal 32.0-35.0 [facility] Comment on above: Performed By: #### C REAT, ESR, CRP, HEPATIC, CK, CBC, MISC LAB #### [place] [address] [place] #### ANTI-KU AB, MITOM2, CH50, PAT, RNA POLYMR, C3, C4 #### [facility] , Monocytes/100 WBC (Bld) 19.31 % Normal 0.00-20.00 [facility] Comment on above: Performed By: #### C REAT, ESR, CRP, HEPATIC, CK, CBC, MISC LAB #### [place] [address] [place] #### ANTI-KU AB, MITOM2, CH50, PAT, RNA POLYMR, C3, C4 #### [facility] , NRBC% 0.1 /100{WBC} Normal 0-0.5 [facility] Comment on above: Performed By: #### C REAT, ESR, CRP, HEPATIC, CK, CBC, MISC LAB #### [place] [address] [place] #### ANTI-KU AB, MITOM2, CH50, PAT, RNA POLYMR, C3, C4 #### [facility] , Creatinine [Mass/volume] in Serum or PlasmaOrdered By: Bernard Peterson on 03-21-2023 Creatinine [Mass/Vol] 0.49 mg/dL Low 0.60-1.20 [facility] Comment on above: Performed By: #### C REAT, ESR, CRP, HEPATIC, CK, CBC, MISC LAB #### [place] [address] [place] #### ANTI-KU AB, MITOM2, CH50, PAT, RNA POLYMR, C3, C4 #### [facility] , Dipstick and Microscopicon 0 03-21-2023 Appearance (U) Cloudy Critically abnormal Clear [facility] Comment on above: Order Comment: Name Collection Type:: Clean-Voided Midstream Performed By: #### C REAT, ESR, CRP, HEPATIC, CK, CBC, MISC LAB #### [place] [address] [place] #### ANTI-KU AB, MITOM2, CH50, PAT, RNA POLYMR, C3, C4 #### [facility] , Bacteria,Urine 4+ High None Seen [facility] Comment on above: Order Comment: Name Collection Type:: Clean-Voided Midstream Performed By: #### C REAT, ESR, CRP, HEPATIC, CK, CBC, MISC LAB #### [address] #### ANTI-KU AB, MITOM2, CH50, PAT, RNA POLYMR, C3, C4 #### [facility] , Bilirubin,Urine Negative Normal Negative [facility] Comment on above: Order Comment: Name Collection Type:: Clean-Voided Midstream Performed By: #### C REAT, ESR, CRP, HEPATIC, CK, CBC, MISC LAB #### [address] #### ANTI-KU AB, MITOM2, CH50, PAT, RNA POLYMR, C3, C4 #### [facility] , Glucose Ql (U) Normal Normal Normal [facility] Comment on above: Order Comment: Name Collection Type:: Clean-Voided Midstream Performed By: #### C REAT, ESR, CRP, HEPATIC, CK, CBC, MISC LAB #### [address] #### ANTI-KU AB, MITOM2, CH50, PAT, RNA POLYMR, C3, C4 #### [facility] , Hyaline Casts,Urine None Seen Normal 0-1 [facility] Comment on above: Order Comment: Name Collection Type:: Clean-Voided Midstream Performed By: #### C REAT, ESR, CRP, HEPATIC, CK, CBC, MISC LAB #### [address] #### ANTI-KU AB, MITOM2, CH50, PAT, RNA POLYMR, C3, C4 #### [facility] , Ketones Ql (U) Trace High Negative [facility] Comment on above: Order Comment: Name Collection Type:: Clean-Voided Midstream Performed By: #### C REAT, ESR, CRP, HEPATIC, CK, CBC, MISC LAB #### [address] #### ANTI-KU AB, MITOM2, CH50, PAT, RNA POLYMR, C3, C4 #### [facility] , Leukocyte esterase Test strip Ql (U) 2+ High Negative [facility] Comment on above: Order Comment: Name Collection Type:: Clean-Voided Midstream Performed By: #### C REAT, ESR, CRP, HEPATIC, CK, CBC, MISC LAB #### [address] #### ANTI-KU AB, MITOM2, CH50, PAT, RNA POLYMR, C3, C4 #### [facility] , Nitrite,Urine Positive High Negative [facility] Comment on above: Order Comment: Name Collection Type:: Clean-Voided Midstream Performed By: #### C REAT, ESR, CRP, HEPATIC, CK, CBC, MISC LAB #### [address] #### ANTI-KU AB, MITOM2, CH50, PAT, RNA POLYMR, C3, C4 #### [facility] , Occult Blood,Urine Negative Normal Negative [facility] Comment on above: Order Comment: Name Collection Type:: Clean-Voided Midstream Result Comment: PERF ORMED BY: [place] [address] PATHOLOGIST RIDE OPERATOR RUIZ CLIFTON M.D. Performed By: #### C REAT, ESR, CRP, HEPATIC, CK, CBC, MISC LAB #### [address] #### ANTI-KU AB, MITOM2, CH50, PAT, RNA POLYMR, C3, C4 #### [facility] , Other Casts,Urine None Seen Normal None Seen [facility] Comment on above: Order Comment: Name Collection Type:: Clean-Voided Midstream Result Comment: PERF ORMED BY: [place] [address] PATHOLOGIST RIDE OPERATOR RUIZ CLIFTON M.D. Performed By: #### C REAT, ESR, CRP, HEPATIC, CK, CBC, MISC LAB #### [address] #### ANTI-KU AB, MITOM2, CH50, PAT, RNA POLYMR, C3, C4 #### [facility] , Protein,Urine Trace High Negative [facility] Comment on above: Order Comment: Name Collection Type:: Clean-Voided Midstream Performed By: #### C REAT, ESR, CRP, HEPATIC, CK, CBC, MISC LAB #### [address] #### ANTI-KU AB, MITOM2, CH50, PAT, RNA POLYMR, C3, C4 #### [facility] , RBC LM.HPF (Urine sed) [#/Area] 0 /[HPF] Normal 0-4 [facility] Comment on above: Order Comment: Name Collection Type:: Clean-Voided Midstream Performed By: #### C REAT, ESR, CRP, HEPATIC, CK, CBC, MISC LAB #### [address] #### ANTI-KU AB, MITOM2, CH50, PAT, RNA POLYMR, C3, C4 #### [facility] , Specificy [place],Urine 1.019 Normal 1.001-1.030 [facility] Comment on above: Order Comment: Name Collection Type:: Clean-Voided Midstream Performed By: #### C REAT, ESR, CRP, HEPATIC, CK, CBC, MISC LAB #### [address] #### ANTI-KU AB, MITOM2, CH50, PAT, RNA POLYMR, C3, C4 #### [facility] , Squamous Epithelial Cell,Urine 10-19 High 0-2 [facility] Comment on above: Order Comment: Name Collection Type:: Clean-Voided Midstream Performed By: #### C REAT, ESR, CRP, HEPATIC, CK, CBC, MISC LAB #### [address] #### ANTI-KU AB, MITOM2, CH50, PAT, RNA POLYMR, C3, C4 #### [facility] , Urobilinogen,Urine Normal Normal Normal [facility] Comment on above: Order Comment: Name Collection Type:: Clean-Voided Midstream Performed By: #### C REAT, ESR, CRP, HEPATIC, CK, CBC, MISC LAB #### [address] #### ANTI-KU AB, MITOM2, CH50, PAT, RNA POLYMR, C3, C4 #### [facility] , WBC,Urine 20-49 High 0-4 [facility] Comment on above: Order Comment: Name Collection Type:: Clean-Voided Midstream Performed By: #### C REAT, ESR, CRP, HEPATIC, CK, CBC, MISC LAB #### [address] #### ANTI-KU AB, MITOM2, CH50, PAT, RNA POLYMR, C3, C4 #### [facility] , ECG 12 lead ECGon 03-21-2023 ECG 12 lead ECG [facility] [place] [address] Electrocardiograph Report Signed Patient: Rica Stout MR#: [id number] 39 : 1995 Acct:[id number] Age/Sex: 27 / F ADM Date: 03/22/23 Loc: Room: 4R7841-9 Type: ADM IN Attending Dr: Parveen Keller [...] Sinus tachycardia Confirmed by Bernard Peterson DO ([id number]) on 03/22/2023 4:03:33 AM Referred By: Electronically Signed By:Bernard Peterson DO Transcribed By: MUS Signed By Bernard Peterson DO [id number] Normal [facility] Erythrocyte Sedimentation Ra mert 03-21-2023 ESR (Bld) [Velocity] 21 mm/h High 0-19 [facility] Comment on above: Result Comment: PERF ORMED BY: [place] [address] PATHOLOGIST RIDE OPERATOR RUIZ CLIFTON M.D. Performed By: #### C REAT, ESR, CRP, HEPATIC, CK, CBC, MISC LAB #### [facility] [address] [place] [address] #### ANTI-KU AB, MITOM2, CH50, PAT, RNA POLYMR, C3, C4 #### [facility] , Erythrocyte distribution wid th [Ratio] by Automated countOrdered By: Bernard Peterson on 03-21-2023 Erythrocyte distribution width (RBC) [Ratio] 14.5 % Normal 11.9-15.3 [facility] Comment on above: Performed By: #### C REAT, ESR, CRP, HEPATIC, CK, CBC, MISC LAB #### [address] #### ANTI-KU AB, MITOM2, CH50, PAT, RNA POLYMR, C3, C4 #### [facility] , Erythrocyte sedimentation ra te by Photometric methodOrdered By: Bernard Peterson on 03-21-2023 ESR Photometric method (Bld) [Velocity] 21 mm/hr 0-19 [facility] Erythrocytes [#/volume] in B lood by Automated countOrdered By: Bernard Peterson on 03-21-2023 RBC (Bld) [#/Vol] 3.48 10*6/uL Low 3.60-5.00 [facility] Comment on above: Performed By: #### C REAT, ESR, CRP, HEPATIC, CK, CBC, MISC LAB #### [place] [address] [place] #### ANTI-KU AB, MITOM2, CH50, PAT, RNA POLYMR, C3, C4 #### [facility] , Glucose [Mass/volume] in Cer ebral spinal fluidOrdered By: Bernard Peterson on 03-21-2023 Glucose (CSF) [Mass/Vol] 84 mg/dL 40-70 [facility] Glucose [Mass/volume] in Ser um or PlasmaOrdered By: Bernard Peterson on 03-21-2023 Glucose [Mass/Vol] 130 mg/dL High 70-100 [facility] Comment on above: ADA recommended refe rence rangeRandom Glucose Reference Range is dependent on time and content of last meal. Glucose of more than 200 mg/dL in a nonstressed, ambulatory subject supports the diagnosis of Diabetes Mellitus. Result Comment: [place] om Glucose Reference Range is dependent on time and content of last meal. Glucose of more than 200 mg/dL in a nonstressed, ambulatory subject supports the diagnosis of Diabetes Mellitus. ADA recommended reference range Performed By: #### C REAT, ESR, CRP, HEPATIC, CK, CBC, MISC LAB #### [place] [address] [place] #### ANTI-KU AB, MITOM2, CH50, PAT, RNA POLYMR, C3, C4 #### [facility] , Glucose, CSF #2on 03-21-2023 Glucose, CSF #2 84 mg/dL High 40-70 [facility] Comment on above: Order Comment: Comme nt Tube 3 Performed By: #### C REAT, ESR, CRP, HEPATIC, CK, CBC, MISC LAB #### [place] [address] [place] #### ANTI-KU AB, MITOM2, CH50, PAT, RNA POLYMR, C3, C4 #### [facility] , Glucose, Spinal Fluidon 08-3 Glucose, Spinal Fluid 84 mg/dL High 40-70 [facility] Comment on above: Order Comment: Comme nt Tube 1 Performed By: #### C REAT, ESR, CRP, HEPATIC, CK, CBC, MISC LAB #### [place] [address] [place] #### ANTI-KU AB, MITOM2, CH50, PAT, RNA POLYMR, C3, C4 #### [facility] , Gram Stainon 03-21-2023 Microscopic observation Gram stain Nom (Unsp spec) Comment Tube 2 Gram Stain Result No Bacteria Seen No White Blood Cells Seen PERFORMED BY: [place] [address] PATHOLOGIST RIDE OPERATOR RUIZ CLIFTON M.D. Normal [facility] Comment on above: Performed By: #### C REAT, ESR, CRP, HEPATIC, CK, CBC, MISC LAB #### [address] #### ANTI-KU AB, MITOM2, CH50, PAT, RNA POLYMR, C3, C4 #### [facility] , Gram stain for investigation of transfusion reactionOrdered By: Bernard Peterson on 03-21-2023 Microscopic observation Gram stain Nom (Unsp spec) [facility] HCG ( test) IA.rapi d Ql (U)Ordered By: Bernard Peterson on 03-21-2023 HCG ( test) Ql (U) Negative [facility] HCG,Urineon 03-21-2023 Beta HCG ( test) Ql (U) Negative Normal [facility] Comment on above: Result Comment: PERF ORMED BY: [place] [address] PATHOLOGIST RIDE OPERATOR RUIZ CLIFTON M.D. Performed By: #### C REAT, ESR, CRP, HEPATIC, CK, CBC, MISC LAB #### [address] #### ANTI-KU AB, MITOM2, CH50, PAT, RNA POLYMR, C3, C4 #### [facility] , Hematocrit [Volume Fraction] of Blood by Automated countOrdered By: Bernardmyrna Peterson on 03-21-2023 Hematocrit (Bld) [Volume fraction] 37.8 % Normal 34.0-46.4 [facility] Comment on above: Performed By: #### C REAT, ESR, CRP, HEPATIC, CK, CBC, MISC LAB #### [address] #### ANTI-KU AB, MITOM2, CH50, PAT, RNA POLYMR, C3, C4 #### [facility] , Hemoglobin [Mass/volume] in BloodOrdered By: Bernard Peterson on 03-21-2023 Hemoglobin (Bld) [Mass/Vol] 12.7 g/dL Normal 11.8-15.4 [facility] Comment on above: Performed By: #### C REAT, ESR, CRP, HEPATIC, CK, CBC, MISC LAB #### [address] #### ANTI-KU AB, MITOM2, CH50, PAT, RNA POLYMR, C3, C4 #### [facility] , Hepatic Panelon 03-21-2023 Albumin [Mass/Vol] 3.5 g/dL Normal 3.5-5.7 [facility] Comment on above: Performed By: #### C REAT, ESR, CRP, HEPATIC, CK, CBC, MISC LAB #### [place] [address] [place] #### ANTI-KU AB, MITOM2, CH50, PAT, RNA POLYMR, C3, C4 #### [facility] , Bilirubin,Indirect 0.4 mg/dL Normal [facility] Comment on above: Performed By: #### C REAT, ESR, CRP, HEPATIC, CK, CBC, MISC LAB #### [facility] [address] [place] [address] [place] #### ANTI-KU AB, MITOM2, CH50, PAT, RNA POLYMR, C3, C4 #### [facility] , Bilirubin.indirect [Mass/Vol] 0.10 mg/dL Normal 0.03-0.18 [facility] Comment on above: Performed By: #### C REAT, ESR, CRP, HEPATIC, CK, CBC, MISC LAB #### [facility] [address] [place] [address] [place] #### ANTI-KU AB, MITOM2, CH50, PAT, RNA POLYMR, C3, C4 #### [facility] , INR in Platelet poor plasma by Coagulation assayOrdered By: Bernard Peterson on 03-21-2023 INR Coag (PPP) [Relative time] 1.1 {INR} Normal [facility] Comment on above: INR Therapeutic Rang [...] CRP, HEPATIC, CK, CBC, MISC LAB #### [place] [address] [place] #### ANTI-KU AB, MITOM2, CH50, PAT, RNA POLYMR, C3, C4 #### [facility] , Ketones Auto test strip (U) [Mass/Vol]Ordered By: ELENI BLOOM on 03-21-2023 Ketones (U) [Mass/Vol] Trace Negative [facility] Lactate [Moles/volume] in Se rum or PlasmaOrdered By: Bernard Peterson on 03-21-2023 Lactate [Moles/Vol] 3.9 mmol/L Off scale high 0.5-2.2 F [facility] Comment on above: Critical Result : Ca lled to and read back by: DIPTI REGALADO at: 03/21/2023 22:31:27 by:LFM Result Comment: Crit ical Result : Called to and read back by: DIPTI REGALADO at: 03/21/2023 22:31:27 by:LFM PERFORMED BY: [place] [address] PATHOLOGIST RIDE OPERATOR RUIZ CLIFTON M.D. Performed By: #### C REAT, ESR, CRP, HEPATIC, CK, CBC, MISC LAB #### [facility] [address] [place] [address] #### ANTI-KU AB, MITOM2, CH50, PAT, RNA POLYMR, C3, C4 #### [facility] , Leukocytes [#/volume] correc antoine for nucleated erythrocytes in Blood by Automated counOrdered By: Bernard Peterson on 03-21-2023 WBC corrected for nucl RBC Auto (Bld) [#/Vol] 7.2 10*3/uL 3.8-11.6 [facility] Leukocytes [#/volume] in Blo od by Automated countOrdered By: Bernard Peterson on 03-21-2023 WBC (Bld) [#/Vol] 7.2 10*3/uL Normal 3.8-11.6 [facility] Comment on above: Performed By: #### C REAT, ESR, CRP, HEPATIC, CK, CBC, MISC LAB #### [facility] [address] [place] [address] [place] #### ANTI-KU AB, MITOM2, CH50, PAT, RNA POLYMR, C3, C4 #### [facility] , Lymphocytes [#/volume] in Bl ood by Automated countOrdered By: Bernard Peterson on 03-21-2023 Lymphocytes (Bld) [#/Vol] 2.1 10*3/uL Normal 1.00-4.8 [facility] Comment on above: Performed By: #### C REAT, ESR, CRP, HEPATIC, CK, CBC, MISC LAB #### [place] [address] [place] #### ANTI-KU AB, MITOM2, CH50, PAT, RNA POLYMR, C3, C4 #### [facility] , Lymphocytes/100 leukocytes i n Blood by Automated countOrdered By: Bernard Peterson on 03-21-2023 Lymphocytes/100 WBC (Bld) 29.7 % Normal . [facility] Comment on above: Performed By: #### C REAT, ESR, CRP, HEPATIC, CK, CBC, MISC LAB #### [place] [address] [place] #### ANTI-KU AB, MITOM2, CH50, PAT, RNA POLYMR, C3, C4 #### [facility] , MCH [Entitic mass] by Automa antoine countOrdered By: Bernard Peterson on 03-21-2023 MCH (RBC) [Entitic mass] 36.3 pg High 24.7-34.3 [facility] Comment on above: Performed By: #### C REAT, ESR, CRP, HEPATIC, CK, CBC, MISC LAB #### [place] [address] [place] #### ANTI-KU AB, MITOM2, CH50, PAT, RNA POLYMR, C3, C4 #### [facility] , MCHC Auto (RBC) [Mass/Vol]Or dered By: Bernard Peterson on 03-21-2023 MCHC (RBC) [Mass/Vol] 33.5 g/dL 32.0-35.0 [facility] MCV [Entitic volume] by Auto mated countOrdered By: Bernard Peterson on 03-21-2023 MCV (RBC) [Entitic vol] 108.6 fL High 80-100 F [facility] Comment on above: Performed By: #### C REAT, ESR, CRP, HEPATIC, CK, CBC, MISC LAB #### [facility] [address] [place] [address] [place] #### ANTI-KU AB, MITOM2, CH50, PAT, RNA POLYMR, C3, C4 #### [facility] , Magnesium [Mass/volume] in S caitlyn or PlasmaOrdered By: Bernard Peterson on 03-21-2023 Magnesium [Mass/Vol] 1.4 mg/dL Low 1.9-2.7 [facility] Comment on above: Performed By: #### C REAT, ESR, CRP, HEPATIC, CK, CBC, MISC LAB #### [facility] [address] [place] [address] [place] #### ANTI-KU AB, MITOM2, CH50, PAT, RNA POLYMR, C3, C4 #### [facility] , Manual cerebrospinal fluid e rythrocytes count (number/volume)Ordered By: Bernard Peterson on 03-21-2023 RBC Manual cnt (CSF) [#/Vol] 0 /uL [facility] Comment on above: The reference interv al and other method performance specifications have not been established for this body fluid. The test result must be integrated into the clinical context for interpretation. Meningitis+Encephalitis path ogens DNA and RNA panel - Cerebral spinal fluid by OKSANA wiOrdered By: Bernard Peterson on 03-21-2023 Meningitis+Encephalitis pathogens DNA and RNA panel OKSANA+non-probe (CSF) [facility] Monocyte distribution width [Entitic volume] in Blood by AutomatedOrdered By: Bernard Peterson on 03-21-2023 Monocyte distribution width Auto (Bld) [Entitic vol] 19.31 % 0.00-20.00 [facility] Neutrophils [#/volume] in Bl ood by Automated countOrdered By: Bernard Peterson on 03-21-2023 Neutrophils (Bld) [#/Vol] 4.2 10*3/uL Normal 1.8-7.7 [facility] Comment on above: Performed By: #### C REAT, ESR, CRP, HEPATIC, CK, CBC, MISC LAB #### [facility] [address] [place] [address] [place] #### ANTI-KU AB, MITOM2, CH50, PAT, RNA POLYMR, C3, C4 #### [facility] , Nitrite Test strip Ql (U)Ord ered By: PROVIDER TEMP on 03-21-2023 Nitrite Ql (U) Positive Negative [facility] No Panel InformationOrdered By: Bernard Peterson on 03-21-2023 CSF Appearance Clear Clear [facility] CSF Differential Comment See comment [facility] Comment on above: NO NUCLEATED CELLS S EEN. DIFFERENTIAL NOT PREFORMED CSF Eosinophils N/A [facility] CSF Lymphocytes N/A [facility] CSF Monocytes N/A [facility] CSF Neutrophils Business Continuity Global Director [facility] Comment on above: The reference interv al and other method performance specifications have not been established for this body fluid. The test result must be integrated into the clinical context for interpretation. CSF Tube Number Tube number: 3 [facility] Estimated GFR (CKD-EPI) > 60.0 mL/Min [facility] Creatinine Clearance (Chem 148.92 [facility] Nucleated cells [#/volume] i n Cerebral spinal fluid by Manual countOrdered By: Bernard Peterson on 03-21-2023 Nucleated cells Manual cnt (CSF) [#/Vol] 0 10*3/uL 0-5 [facility] Nucleated erythrocytes [Pres ence] in Blood by Automated countOrdered By: Bernard Peterson on 03-21-2023 Nucleated RBC Auto Ql (Bld) 0.1 /100{WBC} 0-0.5 [facility] Partial Thromboplastin Timeo n 03-21-2023 aPTT Coag (Bld) [Time] 30.4 s Normal 25.1-36.5 [facility] Comment on above: Result Comment: PERF ORMED BY: [facility] [address] [place] [address] PATHOLOGIST RIDE OPERATOR RUIZ CLIFTON M.D. Performed By: #### C REAT, ESR, CRP, HEPATIC, CK, CBC, MISC LAB #### [address] #### ANTI-KU AB, MITOM2, CH50, PAT, RNA POLYMR, C3, C4 #### [facility] , Phosphate [Mass/volume] in S caitlyn or PlasmaOrdered By: Bernard Peterson on 03-21-2023 Phosphate [Mass/Vol] 2.3 mg/dL Low 3.7-7.2 [facility] Comment on above: Performed By: #### C REAT, ESR, CRP, HEPATIC, CK, CBC, MISC LAB #### [place] [address] [place] #### ANTI-KU AB, MITOM2, CH50, PAT, RNA POLYMR, C3, C4 #### [facility] , Platelet mean volume [Entiti c volume] in Blood by Automated countOrdered By: Bernard Peterson on 03-21-2023 Platelet mean volume (Bld) [Entitic vol] 7.9 fL Normal 6.3-10.7 [facility] Comment on above: Performed By: #### C REAT, ESR, CRP, HEPATIC, CK, CBC, MISC LAB #### [address] #### ANTI-KU AB, MITOM2, CH50, PAT, RNA POLYMR, C3, C4 #### [facility] , Platelets [#/volume] in Bloo d by Automated countOrdered By: Bernard Peterson on 03-21-2023 Platelets (Bld) [#/Vol] 319 10*3/uL Normal 150-450 [facility] Comment on above: Performed By: #### C REAT, ESR, CRP, HEPATIC, CK, CBC, MISC LAB #### [place] [address] [place] #### ANTI-KU AB, MITOM2, CH50, PAT, RNA POLYMR, C3, C4 #### [facility] , Potassium [Moles/volume] in Serum or PlasmaOrdered By: Bernard Peterson on 03-21-2023 Potassium [Moles/Vol] 3.2 mmol/L Low 3.5-5.1 [facility] Comment on above: Performed By: #### C REAT, ESR, CRP, HEPATIC, CK, CBC, MISC LAB #### [facility] [address] [place] [address] [place] #### ANTI-KU AB, MITOM2, CH50, PAT, RNA POLYMR, C3, C4 #### [facility] , Protein Auto test strip (U) [Mass/Vol]Ordered By: [facility] TEMP on 03-21-2023 Protein (U) [Mass/Vol] Trace mg/dL Negative [facility] Protein [Mass/volume] in Cer ebral spinal fluidOrdered By: Bernard Peterson on 03-21-2023 Protein (CSF) [Mass/Vol] 39 mg/dL 15-45 [facility] Protein [Mass/volume] in Ser um or PlasmaOrdered By: Bernard Peterson on 03-21-2023 Protein [Mass/Vol] 6.8 g/dL Normal 6.4-8.9 [facility] Comment on above: Performed By: #### C REAT, ESR, CRP, HEPATIC, CK, CBC, MISC LAB #### [place] [id number] [place] #### ANTI-KU AB, MITOM2, CH50, PAT, RNA POLYMR, C3, C4 #### [facility] , Protein fractions.oligoclona l bands.intrathecal [Presence] in Serum and CSFOrdered By: Bernard Peterson on 03-21-2023 Protein fractions.oligoclonal bands.intrathecal Ql (S+CSF) See comment . [facility] Comment on above: Zero (0) oligoclonal bands were observed in the CSF.However two (2) paired bands were observed in both the CSFand serum. Paired bands suggest an immune response to aninflammatory process outside the RADIATION TECHNICIAN and are unlikely torepresent a RADIATION TECHNICIAN demyelinating disease.Interpretation: Criteria for Positivity: Four (4) or more oligoclonalbands observed only in the CSF have been shown to be mostconsistent with MS using our method. [Claudia , Yesy, Nicholas [place]EL[place], and [place]: Cerebrospinal FluidOligoclonal Bands in [...] (IEF) and immunoblotting methodology.Performed at: - [facility] [address] [id number] Director: Breezy Jones PhD, Phone: [phone] Prothrombin Time INROrdered By: Bernard Peterson on 03-21-2023 PT Coag (PPP) [Time] 12.4 s Normal 9.0-12.9 [facility] Comment on above: Performed By: #### C REAT, ESR, CRP, HEPATIC, CK, CBC, [facility] #### [facility] [address] [place] [address] [place] #### ANTI-KU AB, MITOM2, CH50, PAT, RNA POLYMR, C3, C4 #### [facility] , Serum globulin measurement b y calculation (mass/volume)Ordered By: Bernard Peterson on 03-21-2023 Globulin (S) [Mass/Vol] 3.3 g/dL Normal F [facility] Comment on above: Performed By: #### C REAT, ESR, CRP, HEPATIC, CK, CBC, [facility] #### [facility] [address] [place] [address] [place] #### ANTI-KU AB, MITOM2, CH50, PAT, RNA POLYMR, C3, C4 #### [facility] , Serum or plasma albumin/glob ulin mass ratioOrdered By: Bernard Peterson on 03-21-2023 Albumin/Globulin [Mass ratio] 1.1 {ratio} Normal [facility] Comment on above: Performed By: #### C REAT, ESR, CRP, HEPATIC, CK, CBC, MISC LAB #### [facility] [address] [place] [address] [place] #### ANTI-KU AB, MITOM2, CH50, PAT, RNA POLYMR, C3, C4 #### [facility] , Serum or plasma anion gap de terminationOrdered By: Bernard Peterson on 03-21-2023 Anion gap [Moles/Vol] 16.2 mmol/L High 6.0-15.0 [facility] Comment on above: Performed By: #### C REAT, ESR, CRP, HEPATIC, CK, CBC, MISC LAB #### [place] [address] [place] #### ANTI-KU AB, MITOM2, CH50, PAT, RNA POLYMR, C3, C4 #### [facility] , Serum or plasma non-glucuron idated bilirubin measurement (mass/volume)Ordered By: Bernard Peterson on 03-21-2023 Bilirubin.indirect [Mass/Vol] 0.4 mg/dL [facility] Sodium [Moles/volume] in Ser um or PlasmaOrdered By: Bernard Peterson on 03-21-2023 Sodium [Moles/Vol] 141 mmol/L Normal 136-145 [facility] Comment on above: Performed By: #### C REAT, ESR, CRP, HEPATIC, CK, CBC, MISC LAB #### [place] [address] [place] #### ANTI-KU AB, MITOM2, CH50, PAT, RNA POLYMR, C3, C4 #### [facility] , Specific gravity Auto test s trip (U) [Rel density]Ordered By: [facility] TEMP on 03-21-2023 Specific gravity (U) [Rel density] 1.019 1.001-1.030 [facility] Squamous epithelial cells de tection in urine sediment by light microscopyOrdered By: PROVIDER TEMP on 03-21-2023 Epithelial cells.squamous LM Ql (Urine sed) 10-19 [HPF] 0-2 [facility] Total Protein, CSF #2on 02-21 Total Protein, CSF #2 36 mg/dL Normal 15-45 [facility] Comment on above: Order Comment: Comme nt Tube 3 Result Comment: PERF ORMED BY: [place] [address] PATHOLOGIST RIDE OPERATOR RUIZ CLIFTON M.D. Performed By: #### C REAT, ESR, CRP, HEPATIC, CK, CBC, MISC LAB #### [address] #### ANTI-KU AB, MITOM2, CH50, PAT, RNA POLYMR, C3, C4 #### [facility] , Total Protein, Spinal Fluido n 03-21-2023 Total Protein, Spinal Fluid 39 mg/dL Normal 15-45 [facility] Comment on above: Order Comment: Comme nt Tube 1 Result Comment: PERF ORMED BY: [place] [address] PATHOLOGIST RIDE OPERATOR RUIZ CLIFTON M.D. Performed By: #### C REAT, ESR, CRP, HEPATIC, CK, CBC, MISC LAB #### [place] [address] [place] #### ANTI-KU AB, MITOM2, CH50, PAT, RNA POLYMR, C3, C4 #### [facility] , Urea nitrogen [Mass/volume] in Serum or PlasmaOrdered By: Bernard Peterson on 03-21-2023 Urea nitrogen [Mass/Vol] 3 mg/dL Low 7-25 [facility] Comment on above: Performed By: #### C REAT, ESR, CRP, HEPATIC, CK, CBC, MISC LAB #### [place] [address] [place] #### ANTI-KU AB, MITOM2, CH50, PAT, RNA POLYMR, C3, C4 #### [facility] , Urine Cultureon 03-21-2023 Bacteria identified Cx Nom (U) ORGANISM: Klebsiella pneumoniae (O:KLEPNE) [place] Count >100,000 Aerobic JOSEPH Charge ([id number]) - [...] RESISTANT TO ALL B-LACTAM DRUGS. PERFORMED BY: [place] [address] PATHOLOGIST RIDE OPERATOR RUIZ CLIFTON M.D. Normal [facility] Comment on above: Performed By: #### C REAT, ESR, CRP, HEPATIC, CK, CBC, MISC LAB #### [address] [place] [address] [place] #### ANTI-KU AB, MITOM2, CH50, PAT, RNA POLYMR, C3, C4 #### [facility] , Urine bacteria detection by automated methodOrdered By: PROVIDER TEMP on 03-21-2023 Bacteria Auto Ql (U) 4+ None Seen [facility] Urine clarity by refractomet ry automatedOrdered By: PROVIDER TEMP on 03-21-2023 Clarity Refractometry automated (U) Cloudy Clear [facility] Urine culture routineOrdered By: PROVIDER TEMP on 03-21-2023 Bacteria identified Cx Nom (U) Klebsiella pneumoniae [facility] Bacteria identified Cx Nom (U) Klebsiella pneumoniae [facility] Urine glucose measurement by automated test strip (mass/volume)Ordered By: PROVIDER TEMP on 03-21-2023 Glucose Auto test strip (U) [Mass/Vol] Normal mg/dL Normal [facility] Urine hemoglobin detection b y automated test stripOrdered By: PROVIDER TEMP on 03-21-2023 Hemoglobin Auto test strip Ql (U) Negative Negative [facility] Urine leukocyte esterase det ection by automated test stripOrdered By: PROVIDER TEMP on 03-21-2023 Leukocyte esterase Auto test strip Ql (U) 2+ Negative [facility] Urine pH measurement by auto mated test stripOrdered By: PROVIDER TEMP on 03-21-2023 pH (U) 5.0 [pH] Normal 5.0-9.0 [facility] Comment on above: Order Comment: Name Collection Type:: Clean-Voided Midstream Performed By: #### C REAT, ESR, CRP, HEPATIC, CK, CBC, MISC LAB #### [facility] [address] [place] [address] [place] #### ANTI-KU AB, MITOM2, CH50, PAT, RNA POLYMR, C3, C4 #### [facility] , Urobilinogen Auto test strip (U) [Mass/Vol]Ordered By: PROVIDER TEMP on 03-21-2023 Urobilinogen (U) [Mass/Vol] Normal mg/dL Normal [facility] ED NOTEon 01-29-2023 ED NOTE HNO ID: [id number] Author: Cris Tapia, CT Service: ? Author Type: Clinical Screwhead Stoner And Polisher Type: ED Notes Filed: 01/29/2023 12:55 AM Note Text: Where is my mom? Can you take my IV out? You can't keep my phone from me PT restless, safety maintained. [facility] ED NOTE HNO ID: [id number] Author: Arsh Ivy DO Service: Emergency Medicine Author Type: Physician Type: ED Notes Filed: 01/31/2023 5:08 PM Note Text: Callback completed. No questions or concerns from the ED visit from yesterday. States that she feels fine and she made it home okay. Informed if there is any issues or concerns she is always welcome to return. [facility] ED NOTE HNO ID: [id number] Author: Ghulam Villalobos RN Service: ? Author Type: Registered Nurse Type: ED Notes Filed: 01/29/2023 6:52 AM Note Text: Pt received written and verbal discharge instructions. Pt verbalizes understanding. All belongings with patient. Pt departed ED. [facility] ED NOTE HNO ID: [id number] Author: Cris Tapia, NATHEN Service: ? Author Type: Clinical Screwhead Stoner And Polisher Type: ED Notes Filed: 01/29/2023 6:30 AM Note Text: PT is getting DC'd [facility] ED NOTE HNO ID: [id number] Author: Ghulam Villalobos RN Service: ? Author Type: Registered Nurse Type: ED Notes Filed: 01/29/2023 6:01 AM Note Text: Pt resting comfortably in bed. No acute distress noted. Safety maintained. [facility] ED NOTE HNO ID: [id number] Author: Cris Tapia, NATHEN Service: ? Author Type: Clinical Screwhead Stoner And Polisher Type: ED Notes Filed: 01/29/2023 5:32 AM Note Text: PT resting in bed with no complaints at this time. Comfort measures offered. No acute distress noted, safety maintained. [facility] ED NOTE HNO ID: [id number] Author: Ghulam Villalobos RN Service: ? Author Type: Registered Nurse Type: ED Notes Filed: 01/29/2023 5:13 AM Note Text: Pt resting comfortably in bed. No acute distress noted. Safety maintained. [facility] ED NOTE HNO ID: [id number] Author: Ghulam Villalobos RN Service: ? Author Type: Registered Nurse Type: ED Notes Filed: 01/29/2023 4:31 AM Note Text: Pt resting comfortably in bed. No acute distress noted. Safety maintained. [facility] ED NOTE HNO ID: [id number] Author: Cris Tapia, CT Service: ? Author Type: Clinical Screwhead Stoner And Polisher Type: ED Notes Filed: 01/29/2023 4:03 AM Note Text: PT is resting in bed with no complaints at this time. Lights are off and bed is lowered in lowest position. Equal chest rise and fall is observed. No acute distress is noted, safety maintained. [facility] ED NOTE HNO ID: [id number] Author: NATHNE García Service: ? Author Type: Clinical Screwhead Stoner And Polisher Type: ED Notes Filed: 01/29/2023 4:03 AM Note Text: PT is resting in bed with no complaints at this time. Lights are off and bed is lowered in lowest position. Equal chest rise and fall is observed. No acute distress is noted, safety maintained. [facility] ED NOTE HNO ID: [id number] Author: Ghulam Villalobos RN Service: ? Author Type: Registered Nurse Type: ED Notes Filed: 01/29/2023 3:37 AM Note Text: Pt resting comfortably in bed. No acute distress noted. Safety maintained. [facility] ED NOTE HNO ID: [id number] Author: Ghulam Villalobos RN Service: ? Author Type: Registered Nurse Type: ED Notes Filed: 01/29/2023 3:02 AM Note Text: Pt resting comfortably in bed. No acute distress noted. Safety maintained. [facility] ED NOTE HNO ID: [id number] Author: NATHEN García Service: ? Author Type: Clinical Screwhead Stoner And Polisher Type: ED Notes Filed: 01/29/2023 2:31 AM Note Text: PT is resting in bed with no complaints at this time. Lights are off and bed is lowered in lowest position. Equal chest rise and fall is observed. No acute distress is noted, safety maintained. [facility] ED NOTE HNO ID: [id number] Author: Ghulam Villalobos RN Service: ? Author Type: Registered Nurse Type: ED Notes Filed: 01/29/2023 2:04 AM Note Text: Pt resting comfortably in bed. No acute distress noted. Safety maintained. [facility] ED NOTE HNO ID: [id number] Author: Ghulam Villalobos RN Service: ? Author Type: Registered Nurse Type: ED Notes Filed: 01/29/2023 1:34 AM Note Text: Pt resting comfortably in bed. No acute distress noted. Safety maintained. [facility] ED NOTE HNO ID: [id number] Author: Ghulam Villalobos RN Service: ? Author Type: Registered Nurse Type: ED Notes Filed: 01/29/2023 1:04 AM Note Text: Pt resting comfortably in bed. No acute distress noted. Safety maintained. [facility] ED NOTE HNO ID: [id number] Author: Cris Tapia, CT Service: ? Author Type: Clinical Screwhead Stoner And Polisher Type: ED Notes Filed: 01/29/2023 12:56 AM Note Text: PT resting in bed with no complaints at this time. Comfort measures offered. No acute distress noted, safety maintained. [facility] ED NOTE HNO ID: [id number] Author: NATHEN García Service: ? Author Type: Clinical Screwhead Stoner And Polisher Type: ED Notes Filed: 01/29/2023 12:53 AM Note Text: PT resting in bed with no complaints at this time. Comfort measures offered. No acute distress noted, safety maintained. [facility] ED NOTE HNO ID: [id number] Author: Cris Tapia, CT Service: ? Author Type: Clinical Screwhead Stoner And Polisher Type: ED Notes Filed: 01/29/2023 12:52 AM Note Text: PT restless. Safety maintained. [facility] ED NOTE HNO ID: [id number] Author: Cris Tapia CT Service: ? Author Type: Clinical Screwhead Stoner And Polisher Type: ED Notes Filed: 01/29/2023 12:18 AM Note Text: PT resting in bed with no complaints at this time. Comfort measures offered. No acute distress noted, safety maintained. [facility] ED NOTE HNO ID: [id number] Author: Ghulam Villalobos RN Service: ? Author Type: Registered Nurse Type: ED Notes Filed: 01/28/2023 10:14 PM Note Text: Pt given portable phone again. Pt threw phone. Pt verbally deescalated. [facility] ED NOTE HNO ID: [id number] Author: Ghulam Villalobos RN Service: ? Author Type: Registered Nurse Type: ED Notes Filed: 01/28/2023 10:15 PM Note Text: Pt resting comfortably in bed. No acute distress noted. Safety maintained. [facility] ED PROV NOTEon 01-29-2023 ED PROV NOTE HNO ID: [id number] Author: Arsh Ivy DO Service: Emergency Medicine [...] on the same specimen through Client Services ([phone]) if contacted within 48 hours of initial testing. [1]Substance Abuse and Mental Health Services Administration (2012). Clinical Drug Testing in Primary Care Technical Assistance Publication Series 32. Department of Health and Human Services, [place], p.10. URINALYSIS WITH MICROSCOPIC, REFLEX CULTURE - Abnormal; Notable for the following components: Specific [place], Ur <=1.005 (*) Leuk Esterase 1+ (*) [...] on the same specimen through Client Services ([phone]) if contacted within 48 hours of initial [...] Bilirubin, Urine Negative Ketones, Urine Negative Specific [place], Ur <=1.005(!) Hemoglobin/Blood,Ur Negative pH, Urine 6.0 Protein, Urine Negative Urobilinogen 0.2 EU/dL Nitrites Negative Leukest 1+(!) WBC, Urine 11-25 /HPF(!) RBC, Urine 0-3 /HPF Bacteria Many(!) Epithelial Cells Many [CD] 2258 HCG QUALITATIVE URINE: HCG Qualitative, Urine Negative [CD] ED Course User Index [CD] Ronda Patel, Clinical Impressions as of 01/29/23 0601 Alcoholic intoxic (more content not included)... Normal [facility] CBC panel Auto (Bld)on 01-28 Erythrocyte distribution width (RBC) [Ratio] 12.9 % Normal 11.5-15.0 [facility] Comment on above: Order Comment: Speci men Type: URINE SPECIMEN Ordering Facility: [facility] Address: [address] [place], [place] [id number] Performed By: #### U TOX2, 2105-09 #### [facility] CLIA [id number] [facility] [address] ATTN [address] [place] Hematocrit (Bld) [Volume fraction] 38.2 % Normal 36.0-46.0 [facility] Comment on above: Order Comment: Speci men Type: URINE SPECIMEN Ordering Facility: [facility] Address: [address] [place] [id number] Performed By: #### U TOX2, 2105-09 #### [facility] CLIA [id number] [address] [place] [address] [place] Hemoglobin (Bld) [Mass/Vol] 12.8 g/dL Normal 11.5-15.5 [facility] Comment on above: Order Comment: Speci men Type: URINE SPECIMEN Ordering Facility: [facility] Address: [address] [place] [address] Performed By: #### U TOX2, 2105-09 #### [facility] CLIA [id number] [address] [place] [address] [place] MCH (RBC) [Entitic mass] 35.5 pg High 26.0-34.0 [facility] Comment on above: Order Comment: Speci men Type: URINE SPECIMEN Ordering Facility: [facility] Address: [address] [place] [address] Performed By: #### U TOX2, 2105-09 #### [facility] CLIA [id number] [address] [place] [address] [place] MCHC (RBC) [Mass/Vol] 33.5 g/dL Normal 30.5-36.0 [facility] Comment on above: Order Comment: Speci men Type: URINE SPECIMEN Ordering Facility: [facility] Address: [address] [place] [address] Performed By: #### U TOX2, 2105-09 #### [facility] CLIA [id number] [address] [place] [address] [place] MCV (RBC) [Entitic vol] 105.8 fL High 80.0-100.0 [facility] [place] Comment on above: Order Comment: Speci men Type: URINE SPECIMEN Ordering Facility: [facility] Address: [address] [place], [place] [id number] Performed By: #### U TOX2, 2105-09 #### [facility] CLIA [id number] [address] [place], [place] [id number] [place] Nucleated RBC (Bld) [#/Vol] 10*3/uL Normal <0.01 [facility] Comment on above: Order Comment: Speci men Type: URINE SPECIMEN Ordering Facility: [facility] Address: [address] [place], [place] [address] Performed By: #### U TOX2, 2105-09 #### [facility] CLIA [id number] [facility] [place] [id number] [place] Platelet mean volume (Bld) [Entitic vol] 9.3 fL Normal 9.0-12.7 [facility] Comment on above: Order Comment: Speci men Type: URINE SPECIMEN Ordering Facility: [facility] Address: [address] [place], [place] [address] Performed By: #### U TOX2, 2105-09 #### [facility] CLIA [id number] [address] [place] [address] [place] Platelets (Bld) [#/Vol] 290 10*3/uL Normal 150-400 [facility] Comment on above: Order Comment: Speci men Type: URINE SPECIMEN Ordering Facility: [facility] Address: [address] [place] [phone] Performed By: #### U TOX2, 2105-09 #### [facility] CLIA [id number] [address] [place], [place] [address] [place] RBC (Bld) [#/Vol] 3.61 10*6/uL Low 3.90-5.20 [facility] Comment on above: Order Comment: Speci men Type: URINE SPECIMEN Ordering Facility: [facility] Address: [address] [place] [phone] Performed By: #### U TOX2, 2105-09 #### [facility] CLIA [id number] [address] [place], [place] [address] [place] WBC (Bld) [#/Vol] 8.78 10*3/uL Normal 3.70-11.00 [facility] Comment on above: Order Comment: Speci men Type: URINE SPECIMEN Ordering Facility: [facility] Address: [address] Performed By: #### U TOX2, 2105-09 #### [facility] CLIA [id number] [address] [place] [address] [place] Comprehensive metabolic 2000 panelon 01-28-2023 Albumin [Mass/Vol] 3.5 g/dL Low 3.9-4.9 [facility] Comment on above: Order Comment: Speci men Type: URINE SPECIMEN Ordering Facility: [facility] Address: [address] [place], [place] [address] Performed By: #### U TOX2, 2105-09 #### [facility] CLIA [id number] [address] [place] [address] [place] ALP [Catalytic activity/Vol] 213 U/L High 34-123 [facility] Comment on above: Order Comment: Speci men Type: URINE SPECIMEN Ordering Facility: [facility] Address: [address] Performed By: #### U TOX2, 2105-09 #### [facility] CLIA [id number] [facility] [address] [place] [address] STATES [place] ALT [Catalytic activity/Vol] 75 U/L High 7-38 [facility] Comment on above: Order Comment: Speci men Type: URINE SPECIMEN Ordering Facility: [facility] Address: [address] Performed By: #### U TOX2, 2105-09 #### [facility] CLIA [id number] [address] [place], [place] [address] [place] Anion gap [Moles/Vol] 20 mmol/L High 9-18 [facility] Comment on above: Order Comment: Speci men Type: URINE SPECIMEN Ordering Facility: [facility] Address: [address] [place], [place] [address] Performed By: #### U TOX2, 2105-09 #### [facility] CLIA [id number] [address] [place], [place] [address] [place] AST [Catalytic activity/Vol] 104 U/L High 13-35 [facility] Comment on above: Order Comment: Speci men Type: URINE SPECIMEN Ordering Facility: [facility] Address: [address] [place] [address] Performed By: #### U TOX2, 2105-09 #### [facility] CLIA [id number] [facility] [address] [place] [address] [place] Bilirubin [Mass/Vol] 0.6 mg/dL Normal 0.2-1.[address] [facility] Comment on above: Order Comment: Speci men Type: URINE SPECIMEN Ordering Facility: [facility] Address: [address] [place] [address] Performed By: #### U TOX2, 2105-09 #### [facility] CLIA [id number] [facility] [place] [address] [place] Calcium [Mass/Vol] 9.0 mg/dL Normal 8.5-10.2 [facility] Comment on above: Order Comment: Speci men Type: URINE SPECIMEN Ordering Facility: [facility] Address: [address] [place] [address] Performed By: #### U TOX2, 2105-09 #### [facility] CLIA [id number] [facility] [place] [address] [place] Chloride [Moles/Vol] 100 mmol/L Normal 97-[address] [facility] Comment on above: Order Comment: Speci men Type: URINE SPECIMEN Ordering Facility: [facility] Address: [address] [place], [place] [address] Performed By: #### U TOX2, 2105-09 #### [facility] CLIA [id number] [address] [place], [place] [address] [place] CO2 [Moles/Vol] 18 mmol/L Low 22-30 [facility] Comment on above: Order Comment: Speci men Type: URINE SPECIMEN Ordering Facility: [facility] Address: [address] [place] [address] Performed By: #### U TOX2, 2105-09 #### [facility] CLIA [id number] [address] [place] [address] [place] Creatinine [Mass/Vol] 0.56 mg/dL Low 0.58-0.96 [facility] Comment on above: Order Comment: Speci men Type: URINE SPECIMEN Ordering Facility: [facility] Address: [address] [place] [address] Performed By: #### U TOX2, 2105-09 #### [facility] CLIA [id number] [address] [place] [address] [place] ESTIMATED GLOMERULAR FILTRATION RATE 128 mL/min/1.73m??? Normal >=60 [facility] Comment on above: Order Comment: Speccari men Type: URINE SPECIMEN Ordering Facility: [facility] Address: [address] [place] [address] Result Comment: Ebony mated Glomerular Filtration Rate [...] reflect actual GFR. Performed By: #### U TOX, 2105-09 #### [facility] CLIA [id number] [address] [place], [place] [address] [place] Glucose [Mass/Vol] 113 mg/dL High 74-99 [facility] Comment on above: Order Comment: Speci men Type: URINE SPECIMEN Ordering Facility: [facility] Address: [address] [place] [address] Result Comment: The [place] Diabetes Association (ADA) provides guidance for cutoff [...] Standards of Medical Care in Diabetes 2016, [place] [employer]. Diabetes Care. 2016.39(Suppl 1). Performed By: #### U TOX2, 2105-09 #### [facility] CLIA [id number] [facility] [place] [address] [place] Potassium [Moles/Vol] 3.1 mmol/L Low 3.7-5.1 [facility] Comment on above: Order Comment: Speci men Type: URINE SPECIMEN Ordering Facility: [facility] Address: [address] [place] [address] Performed By: #### U TOX2, 2105-09 #### [facility] CLIA [id number] [address] [place], [place] [address] [place] Protein [Mass/Vol] 6.8 g/dL Normal 6.3-8.0 [facility] Comment on above: Order Comment: Speci men Type: URINE SPECIMEN Ordering Facility: [facility] Address: [address] [place] [address] Performed By: #### U TOX2, 2105-09 #### [facility] CLIA [id number] [address] [place], [place] [address] [place] Sodium [Moles/Vol] 138 mmol/L Normal 136-144 [facility] Comment on above: Order Comment: Speci men Type: URINE SPECIMEN Ordering Facility: [facility] Address: [address] [place] [address] Performed By: #### U TOX2, 2105-09 #### [facility] CLIA [id number] [address] [place], [place] [address] [place] Urea nitrogen [Mass/Vol] mg/dL Low 02-08 [facility] Comment on above: Order Comment: Speci men Type: URINE SPECIMEN Ordering Facility: [facility] Address: [place] [id number] Performed By: #### U TOX2, 2106-3 #### [facility] CLIA [id number] [address] [facility] ATTN [place] [address] OF [facility] ECG COMPLETEon 01-28-2023 ECG COMPLETE Ventricular Rate : 1 16 BPM Atrial Rate : 116 BPM P-R Interval : 140 ms QRS Duration : 75 ms Q-T Interval : 351 ms QTC Calculation(Bazett) : 488 ms Calculated P [place] : 71 degrees Calculated R [place] : 81 degrees Calculated T [place] : 25 degrees Sinus tachycardia Borderline prolonged QT interval Borderline ECG Confirmed by RONDA PATEL DO ([id number]), scientific publications editor JOE ROCHA ([id number]) on 01/29/2023 12:31:09 PM NAME : RICA STOUT PID : [id number] : 1995 Gender : Female Race : Unknown ORD : [id number] Procedure Date : Jan 28 2023 21:12:20 Edit Date : Jan 29 2023 12:31:09 Diagnosis: Sinus tachycardia Borderline prolonged QT interval Borderline ECG Confirmed by RONDA PATEL DO ([id number]), scientific publications editor JOE ROCHA ([id number]) on 01/29/2023 12:31:09 PM Test Reason : Arrhythmia Location : 502 : [facility] 6 Overread By : RONDA PATEL DO Edited By : JOE ROCHA Referred By : , Acquired by : [id number], [facility] ED NOTEon 01-28-2023 ED NOTE HNO ID: [id number] Author: Ghluam Villalobos RN Service: ? Author Type: Registered Nurse Type: ED Notes Filed: 01/28/2023 10:13 PM Note Text: Pt given portable phone to call family. [facility] ED NOTE HNO ID: [id number] Author: Ghulam Villalobos RN Service: ? Author Type: Registered Nurse Type: ED Notes Filed: 01/28/2023 10:12 PM Note Text: Pt placed on continuous cardiac and oxygen monitoring. [facility] ED NOTE HNO ID: [id number] Author: Ghulam Villalobos RN Service: ? Author Type: Registered Nurse Type: ED Notes Filed: 01/28/2023 8:23 PM Note Text: Pt BIB EMS for ETOH. Pt denies SI/HI. Pt denies AVH. Pt stating her mom called EMS because for the last two months her feet have been swollen. Pt denies any PMH. Pt has no other complaints at this time. [facility] ED NOTE HNO ID: [id number] Author: Genet Erickson RN Service: ? Author Type: Registered Nurse Type: ED Notes Filed: 01/28/2023 8:09 PM Note Text: Bed: ED-06 Expected date: Expected time: Means of arrival: Comments: ems [facility] ED PROV NOTEon 01-28-2023 ED PROV NOTE HNO ID: [id number] Author: Ronda Patel DO Service: Emergency Medicine [...] on the same specimen through Client Services ([phone]) if contacted within 48 hours of initial testing. [1]Substance Abuse and Mental Health Services Administration (2012). Clinical Drug Testing in Primary Care Technical Assistance Publication Series 32. Department of Health and Human Services, [place], p.10. URINALYSIS WITH MICROSCOPIC, REFLEX CULTURE - Abnormal; Notable for the following components: Specific [place], Ur <=1.005 (*) 1.005 - 1.030 Leuk [...] on the same specimen through Client Services ([phone]) if contacted within 48 hours of initial testing. (more content not included)... Normal [facility] Ethanol [facility] 023 Ethanol [Mass/Vol] 313 mg/dL High <11 [facility] Comment on above: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 [facility] Comment on above: Performed By: #### C RP, CMP, URIC, MG #### [facility] [address] [address] [address] Kush Call MTD Negative Normal NEGATIVE [facility] Comment on above: Performed By: #### C RP, CMP, URIC, MG #### [facility] [address] [address] [address] Kush Call OPI Negative Normal NEGATIVE [facility] Comment on above: Performed By: #### C RP, CMP, URIC, MG #### [facility] [address] [address] [address] Kush Call OXY Negative Normal NEGATIVE [facility] Comment on above: Performed By: #### C RP, CMP, URIC, MG #### [facility] [address] [place] [address] Dr. Kush Call PCP Negative Normal NEGATIVE [facility] Comment on above: Performed By: #### C RP, CMP, URIC, MG #### [facility] [address] [place] [address] Dr. Kush Call PPX Negative Normal NEGATIVE [facility] Comment on above: Performed By: #### C RP, CMP, URIC, MG #### [facility] [address] [address] [address] Kush Call TCA Negative Normal NEGATIVE [facility] Comment on above: Performed By: #### C RP, CMP, URIC, MG #### [facility] [address] [address] [address] Kush Call THC Negative Normal NEGATIVE [facility] Comment on above: Performed By: #### C RP, CMP, URIC, MG #### [facility] [address] [address] [address] Kush Call ER URINE PROFILEon 3 Bilirubin Ql (U) Negative Normal NEGATIVE [facility] Comment on above: Performed By: #### C RP, CMP, URIC, MG #### [facility] [address] [place] [address] Dr. Kush Call Clarity (U) CLEAR Normal CLEAR [facility] Comment on above: Performed By: #### C RP, CMP, URIC, MG #### [facility] [address] [address] [address] Kush Call Color (U) LT. YELLOW Normal YELLOW [facility] Comment on above: Performed By: #### C RP, CMP, URIC, MG #### [facility] [address] [place] [address] Dr. Kush Call ERUAHD A micrscopic examina tion will be performed if indicated. Normal [facility] Comment on above: Performed By: #### C RP, CMP, URIC, MG #### [facility] [address] [address] [address] Kush Call Glucose Ql (U) Negative Normal NEGATIVE [facility] Comment on above: Performed By: #### C RP, CMP, URIC, MG #### [facility] [address] [place] [address] Dr. Kush Call Hemoglobin Ql (U) Negative Normal NEGATIVE [facility] Comment on above: Performed By: #### C RP, CMP, URIC, MG #### [facility] [address] [place] [address] Dr. Kush Call Ketones Ql (U) Negative Normal NEGATIVE [facility] Comment on above: Performed By: #### C RP, CMP, URIC, MG #### [facility] [address] [place] [address] Dr. Kush Call LEUKOCYTES Negative Normal NEGATIVE [facility] Comment on above: Performed By: #### C RP, CMP, URIC, MG #### [facility] [address] [place] [address] Dr. Kush Call Nitrite Ql (U) Negative Normal NEGATIVE [facility] Comment on above: Performed By: #### C RP, CMP, URIC, MG #### [facility] [address] [place] [address] Dr. Kush Call pH (U) 5.5 [pH] Normal 5-9 [facility] Comment on above: Performed By: #### C RP, CMP, URIC, MG #### [facility] [address] [place] [address] Dr. Kush Call SPEC GRAVITY <=1.005 Abnormal 1.005-<=1.02 5 [facility] Comment on above: Performed By: #### C RP, CMP, URIC, MG #### [facility] [address] [place] [address] Dr. Kush Call UA PROTEIN Negative Normal NEGATIVE/ TRACE [facility] Comment on above: Performed By: #### C RP, CMP, URIC, MG #### [facility] [address] [place] [address] Dr. Kush Call UR MICRO IND NOT INDICATED [facility] Comment on above: Performed By: #### C RP, CMP, URIC, MG #### [facility] [address] [place] [address] Dr. Kush Call Urobilinogen Qn (U) 0.2 {Kirit'U}/dL Normal 0.2 - 1. 0 [facility] Comment on above: Performed By: #### C RP, CMP, URIC, MG #### [facility] [address] [place] [address] Dr. Kush Call LACTATE/LACTIC ACIDon 2022 Lactate [Moles/Vol] 3.0 mmol/L Critically high 0.4-1.9 [facility] Comment on above: Performed By: #### C RP, CMP, URIC, MG #### [facility] [address] [place] [address] Dr. Kush Call Lactate [Moles/Vol] 3.5 mmol/L Critically high 0.4-1.9 [facility] Comment on above: Performed By: #### C RP, CMP, URIC, MG #### [facility] [address] [place] [address] Dr. Kush Call PROF 14(COMP METB)on 023 Albumin [Mass/Vol] 3.3 g/dL Critically low 3.4-5.0 Th e [facility] Comment on above: Performed By: #### C MP, CMADM #### [facility] [address] [place] [address] Dr. Kush Call Albumin/Globulin [Mass ratio] 0.8 {ratio} Normal [facility] Comment on above: Performed By: #### C KAYCEE, XAVIERDM #### [facility] [address] [address] [address] Kush Call ALP [Catalytic activity/Vol] 111 U/L Normal 46-116 [facility] Comment on above: Performed By: #### C KAYCEE, XAVIERDM #### [facility] [address] [address] [address] Kush Call ALT [Catalytic activity/Vol] 63 U/L Critically high 14-59 [facility] Comment on above: Performed By: #### C KAYCEE, IRINA #### [facility] [address] [place] [address] Dr. Kush Call Anion gap [Moles/Vol] 20.5 mmol/L Normal [facility] Comment on above: Performed By: #### C IRINA BENOIT #### [facility] [address] [address] [address] Kush Call AST [Catalytic activity/Vol] 64 U/L Critically high 15-37 [facility] Comment on above: Performed By: #### C IRINA BENOIT #### [facility] [address] [place] [address] Dr. Kush Call Bilirubin [Mass/Vol] 0.5 mg/dL Normal 0.2-1.0 [facility] Comment on above: Performed By: #### C XAVIER BENOITDM #### [facility] [address] [place] [address] Dr. Kush Call Calcium [Mass/Vol] 9.4 mg/dL Normal 8.5-10.1 [facility] Comment on above: Performed By: #### C IRINA BENOIT #### [facility] [address] [place] [address] Dr. Kush Call Chloride [Moles/Vol] 101 mmol/L Normal 98-107 [facility] Comment on above: Performed By: #### C IRINA BENOIT #### [facility] [address] [place] [address] Dr. Kush Call CO2 [Moles/Vol] 19.8 mmol/L Critically low 21.0-32.0 [facility] Comment on above: Performed By: #### C IRINA BENOIT #### [facility] [address] [address] [address] Kush Call Creatinine [Mass/Vol] 0.50 mg/dL Critically low 0.55-1.02 [facility] Comment on above: Performed By: #### C KAYCEE, XAVIERDM #### [facility] [address] [place] [address] Dr. Kush Call EGFR-AF MALAYSIAN >60 Normal >=60 [facility] Comment on above: Performed By: #### C IRINA BENOIT #### [facility] [address] [place] [address] Dr. Kush Call EGFR-NON AF MALAYSIAN >60 Normal >=60 [facility] Comment on above: Performed By: #### C XAVIER BENOITDM #### [facility] [address] [address] [address] Kush Call Globulin (S) [Mass/Vol] 4.1 g/dL Normal [facility] Comment on above: Performed By: #### C IRINA BENOIT #### [facility] [address] [place] [address] Dr. Kush Call Glucose [Mass/Vol] 112 mg/dL Critically high 74-[address] [facility] Comment on above: Performed By: #### C XAVIER BENOITDM #### [facility] [address] [address] [address] Kush Call Potassium [Moles/Vol] 3.3 mmol/L Critically low 3.5-5.1 [facility] Comment on above: Performed By: #### C XAVIER BENOITDM #### [facility] [address] [place] [address] Dr. Kush Call Protein [Mass/Vol] 7.4 g/dL Normal 6.4-8.2 [facility] Comment on above: Performed By: #### C IRINA BENOIT #### [facility] [address] [place] [address] Dr. Kush Call Sodium [Moles/Vol] 138 mmol/L Normal 136-145 [facility] Comment on above: Performed By: #### C KAYCEE, IRINA #### [facility] [address] [place] [address] Dr. Kush Call Urea nitrogen [Mass/Vol] 2.0 mg/dL Critically low 7.0-18.0 [facility] Comment on above: Performed By: #### C KAYCEE, XAVIERDM #### [facility] [address] [place] [address] Dr. Kush Call Urea nitrogen/Creatinine [Mass ratio] 4.0 mg/mg Normal [facility] Comment on above: Performed By: #### C KAYCEE, IRINA #### [facility] [address] [place] [address] Dr. Kush [facility] mm/hr Critically high <=20 [facility] Comment on above: Performed By: #### T SH #### [facility] [address] [place] [address] Dr. Kush Call TSHon 09-13-2022 TSH 2.552 uIU/mL Normal 0.358-3.740 [facility] Comment on above: Performed By: #### T SH #### [facility] [address] [place] [address] Dr. Kush Call VIT B12 AND FOLATEon 023 Cobalamin (Vitamin B12) [Mass/Vol] 700.0 pg/mL Normal 193.0-986.0 [facility] Comment on above: Performed By: #### C RP, CMP, URIC, MG #### [facility] [address] [place] [address] Dr. Kush Call FOLATE 1.60 ng/mL Critically low 8.60-58.90 [facility] Comment on above: Performed By: #### C RP, CMP, URIC, MG #### [facility] [address] [place] [address] Dr. Kush Call AMYLASEon 08-30-2022 Amylase [Catalytic activity/Vol] 28 U/L Normal 25-115 [facility] Comment on above: Performed By: #### C RP, CMP, URIC, MG #### [facility] [address] [place] [address] Dr. Kush Call CBC AUTO DIFFon 08-30-2022 BASO # 0.1 103/ul Normal 0.0-0.1 [facility] Comment on above: Performed By: #### T SH #### [facility] [address] [place] [address] Dr. Kush Call Basophils/100 WBC (Bld) 0.8 % Normal 0.2-2.[address] [facility] Comment on above: Performed By: #### T SH #### [facility] [address] [place] [address] Dr. Kush Call EO # 0.0 103/ul Normal 0.0-0.7 [facility] Comment on above: Performed By: #### T SH #### [facility] [address] [place] [address] Dr. Kush Call Eosinophils/100 WBC (Bld) 0.5 % Critically low 0.9-7.0 [facility] Comment on above: Performed By: #### T SH #### [facility] [address] [place] [address] Dr. Kush Call Erythrocyte distribution width (RBC) [Ratio] 12.4 % Normal 11.0-15.0 [facility] Comment on above: Performed By: #### T SH #### [facility] [address] [place] [address] Dr. Kush Call Hematocrit (Bld) [Volume fraction] 39.8 % Normal 36.0-48.0 [facility] Comment on above: Performed By: #### T SH #### [facility] [address] [place] [address] Dr. Kush Call Hemoglobin (Bld) [Mass/Vol] 14.3 g/dL Normal 12.0-16.0 [facility] Comment on above: Performed By: #### T SH #### [facility] [address] [place] [address] Dr. Kush Call IG # 0.03 10e3/ul Normal 0.00-0.03 [facility] Comment on above: Performed By: #### T SH #### [facility] [address] [place] [address] Dr. Kush Call IG % 0.5 % Normal 0.0-0.5 [facility] Comment on above: Performed By: #### T SH #### [facility] [address] [place] [address] Dr. Kush Call LYMPH # 1.2 103/ul Normal 1.2-3.8 [facility] Comment on above: Performed By: #### T SH #### [facility] [address] [place] [address] Dr. Kush Call Lymphocytes/100 WBC (Bld) 18.3 % Critically low 20.5-60.0 [facility] Comment on above: Performed By: #### T SH #### [facility] [address] [place] [address] Dr. Kush Call MANUAL DIFF REQ NO Normal [facility] Comment on above: Performed By: #### T SH #### [facility] [address] [place] [address] Dr. Kush Call MCH (RBC) [Entitic mass] 37.2 pg Critically high 26.7-34.0 [facility] Comment on above: Performed By: #### T SH #### [facility] [address] [place] [address] Dr. Kush Call MCHC (RBC) [Mass/Vol] 35.9 g/dL Critically high 29.9-35.2 [facility] Comment on above: Performed By: #### T SH #### [facility] [address] [place] [address] Dr. Kush Call MCV (RBC) [Entitic vol] 103.6 fL Critically high 81.0-99 .0 [facility] Comment on above: Performed By: #### T SH #### [facility] [address] [place] [address] Dr. Kush Call MONO # 0.4 103/ul Normal 0.3-0.8 [facility] Comment on above: Performed By: #### T SH #### [facility] [address] [place] [address] Dr. Kush Call Monocytes/100 WBC (Bld) 6.1 % Normal 1.7-12.[address] [facility] Comment on above: Performed By: #### T SH #### [facility] [address] [place] [address] Dr. Kush Call NEUT # 4.7 103/ul Normal 1.4-6.5 [facility] Comment on above: Performed By: #### T SH #### [facility] [address] [place] [address] Dr. Kush Call Neutrophils/100 WBC (Bld) 73.8 % Normal 43.0-75.0 [facility] Comment on above: Performed By: #### T SH #### [facility] [address] [place] [address] Dr. Kush Call Platelet mean volume (Bld) [Entitic vol] 9.2 fL Critically low 9.5-13.5 [facility] Comment on above: Performed By: #### T SH #### [facility] [address] [place] [address] Dr. Kush Call PLT 288 103/ul Normal 150-450 [facility] Comment on above: Performed By: #### T SH #### [facility] [address] [place] [address] Dr. Kush Call RBC 3.84 106/ul Critically low 4.20-5.40 [facility] Comment on above: Performed By: #### T SH #### [facility] [address] [place] [address] Dr. Kush Call WBC 6.4 103/ul Normal 4.0-11.0 [facility] Comment on above: Performed By: #### T SH #### [facility] [address] [place] [address] Dr. Kush Call ER URINE PROFILEon 3 Bilirubin Ql (U) Negative Normal NEGATIVE [facility] Comment on above: Performed By: #### U MICRO, ERUR #### [facility] [address] [address] [address] Kush Call Clarity (U) CLEAR Normal CLEAR [facility] Comment on above: Performed By: #### U MICRO, ERUR #### [facility] [address] [address] [address] Kush Call Color (U) LT. YELLOW Normal YELLOW [facility] Comment on above: Performed By: #### U MICRO, ERUR #### [facility] [address] [address] [address] Kush Call ERUAHD A micrscopic examina tion will be performed if indicated. Normal [facility] Comment on above: Performed By: #### U MICRO, ERUR #### [facility] [address] [place] [address] Dr. Kush Call Glucose Ql (U) Negative Normal NEGATIVE [facility] Comment on above: Performed By: #### U MICRO, ERUR #### [facility] [address] [place] [address] Dr. Kush Call Hemoglobin Ql (U) Negative Normal NEGATIVE [facility] Comment on above: Performed By: #### U MICRO, ERUR #### [facility] [address] [address] [address] Kush Call Ketones Ql (U) Negative Normal NEGATIVE [facility] Comment on above: Performed By: #### U MICRO, ERUR #### [facility] [address] [address] [address] Kush Call LEUKOCYTES SMALL Abnormal NEGATIVE [facility] Comment on above: Performed By: #### U MICRO, ERUR #### [facility] [address] [address] [address] Kush Call Nitrite Ql (U) Negative Normal NEGATIVE [facility] Comment on above: Performed By: #### U MICRO, ERUR #### [facility] [address] [address] [address] Kush Call pH (U) 7.0 [pH] Normal 5-9 [facility] Comment on above: Performed By: #### U MICRO, ERUR #### [facility] [address] [place] [address] Dr. Kush Call SPEC GRAVITY <=1.005 Abnormal 1.005-<=1.02 5 [facility] Comment on above: Performed By: #### U MICRO, ERUR #### [facility] [address] [place] [address] Dr. Kush Call UA PROTEIN Negative Normal NEGATIVE/ TRACE [facility] Comment on above: Performed By: #### U MICRO, ERUR #### [facility] [address] [place] [address] Dr. Kush Call UR MICRO IND INDICATED Normal [facility] Comment on above: Performed By: #### U MICRO, ERUR #### [facility] [address] [place] [address] Dr. Kush Call Urobilinogen Qn (U) 1.0 {Kirit'U}/dL Normal 0.2 - 1. 0 [facility] Comment on above: Performed By: #### U MICRO, ERUR #### [facility] [address] [place] [address] Dr. Kush Call LIPASEon 08-30-2022 Lipase [Catalytic activity/Vol] 40.0 U/L Critically low 73.0-393.0 [facility] Comment on above: Performed By: #### C RP, CMP, URIC, MG #### [facility] [address] [place] [address] Dr. Kush Call PROF 14(COMP METB)on 023 Albumin [Mass/Vol] 3.2 g/dL Critically low 3.4-5.0 [facility] Comment on above: Performed By: #### C RP, CMP, URIC, MG #### [facility] [address] [place] [address] Dr. Kush Call Albumin/Globulin [Mass ratio] 0.9 {ratio} Normal [facility] Comment on above: Performed By: #### C RP, CMP, URIC, MG #### [facility] [address] [place] [address] Dr. Kush Call ALP [Catalytic activity/Vol] 100 U/L Normal 46-116 [facility] Comment on above: Performed By: #### C RP, CMP, URIC, MG #### [facility] [address] [place] [address] Dr. Kush Call ALT [Catalytic activity/Vol] 66 U/L Critically high 14-59 [facility] Comment on above: Performed By: #### C RP, CMP, URIC, MG #### [facility] [address] [place] [address] Dr. Kush Call Anion gap [Moles/Vol] 14.6 mmol/L Normal Th e [facility] Comment on above: Performed By: #### C RP, CMP, URIC, MG #### [facility] [address] [place] [address] Dr. Kush Call AST [Catalytic activity/Vol] 120 U/L Critically high 15-37 [facility] Comment on above: Performed By: #### C RP, CMP, URIC, MG #### [facility] [address] [place] [address] Dr. Kush Call Bilirubin [Mass/Vol] 1.1 mg/dL Critically high 0.2-1.0 [facility] Comment on above: Performed By: #### C RP, CMP, URIC, MG #### [facility] [address] [place] [address] Dr. Kush Call Calcium [Mass/Vol] 9.0 mg/dL Normal 8.5-10.1 [facility] Comment on above: Performed By: #### C RP, CMP, URIC, MG #### [facility] [address] [place] [address] Dr. Kush Call Chloride [Moles/Vol] 102 mmol/L Normal 98-107 [facility] Comment on above: Performed By: #### C RP, CMP, URIC, MG #### [facility] [address] [address] [address] Kush Call CO2 [Moles/Vol] 25.4 mmol/L Normal 21.0-32.0 [facility] Comment on above: Performed By: #### C RP, CMP, URIC, MG #### [facility] [address] [address] [address] Kush Call Creatinine [Mass/Vol] 0.62 mg/dL Normal 0.55-1.02 [facility] Comment on above: Performed By: #### C RP, CMP, URIC, MG #### [facility] [address] [address] [address] Kush Call EGFR-AF MALAYSIAN >60 Normal >=60 [facility] Comment on above: Performed By: #### C RP, CMP, URIC, MG #### [facility] [address] [place] [address] Dr. Kush Call EGFR-NON AF MALAYSIAN >60 Normal >=60 [facility] Comment on above: Performed By: #### C RP, CMP, URIC, MG #### [facility] [address] [place] [address] Dr. Kush Call Globulin (S) [Mass/Vol] 3.5 g/dL Normal [facility] Comment on above: Performed By: #### C RP, CMP, URIC, MG #### [facility] [address] [place] [address] Dr. Kush Call Glucose [Mass/Vol] 114 mg/dL Critically high 74-[address] [facility] Comment on above: Performed By: #### C RP, CMP, URIC, MG #### [facility] [address] [place] [address] Dr. Kush Call Potassium [Moles/Vol] 3.0 mmol/L Critically low 3.5-5.1 [facility] Comment on above: Performed By: #### C RP, CMP, URIC, MG #### [facility] [address] [place] [address] Dr. Kush Call Protein [Mass/Vol] 6.7 g/dL Normal 6.4-8.2 [facility] Comment on above: Performed By: #### C RP, CMP, URIC, MG #### [facility] [address] [place] [address] Dr. Kush Call Sodium [Moles/Vol] 139 mmol/L Normal 136-145 [facility] Comment on above: Performed By: #### C RP, CMP, URIC, MG #### [facility] [address] [place] [address] Dr. Kush Call Urea nitrogen [Mass/Vol] 3.0 mg/dL Critically low 7.0-18.0 [facility] Comment on above: Performed By: #### C RP, CMP, URIC, MG #### [facility] [address] [place] [address] Dr. Kush Call Urea nitrogen/Creatinine [Mass ratio] 4.8 mg/mg Normal [facility] Comment on above: Performed By: #### C RP, CMP, URIC, MG #### [facility] [address] [place] [address] Dr. Kush Call URINE MICROSCOPIC ONLYon BACTERIA TRACE Abnormal NONE SEEN [facility] Comment on above: Performed By: #### U MICRO, ERUR #### [facility] [address] [place] [address] Dr. Kush Call Bacteria identified Cx Nom (U) NOT INDICATED Normal [facility] Comment on above: Performed By: #### U MICRO, ERUR #### [facility] [address] [place] [address] Dr. Kush Call CAST NONE SEEN Normal NONE SEEN [facility] Comment on above: Performed By: #### U MICRO, ERUR #### [facility] [address] [place] [address] Dr. Kush Call Crystals LM Nom (Urine sed) NONE SEEN Normal NONE SEEN [facility] Comment on above: Performed By: #### U MICRO, ERUR #### [facility] [address] [place] [address] Dr. Kush Call Epithelial cells LM Ql (Urine sed) RARE Normal NONE SEEN /RARE [facility] Comment on above: Performed By: #### U MICRO, ERUR #### [facility] [address] [place] [address] Dr. Kush Call MUCOUS NONE SEEN Normal NONE SEEN [facility] Comment on above: Performed By: #### U MICRO, ERUR #### [facility] [address] [address] [address] Kush Call RBC 0-2 Normal 0-2 [facility] Comment on above: Performed By: #### U MICRO, ERUR #### [facility] [address] [address] [address] Kush Call WBC 0-2 Abnormal NONE SEEN [facility] Comment on above: Performed By: #### U MICRO, ERUR #### [facility] [address] [address] [address] Kush Call CHLAMYDIA/GONOCOCCUS [place] (SW AB/URINE/PAPon 08-25-2022 Chlamydia trachomatis, [place] Negative Normal Negative [facility] Comment on above: Performed By: #### C T/NGNA #### [facility] [address] [place] [address] Dr. Kush Call Neisseria gonorrhoeae, [place] Negative Normal Negative [facility] Comment on above: Performed By: #### C T/NGNA #### [facility] [address] [place] [address] Dr. Kush Call CULTURE URINEon 08-25-2022 CULTURE [...] azole <=20 S F Normal [facility] Comment on above: Performed By: #### C MP, CMADM #### [facility] [address] [place] [address] Dr. Kush Call VAGINITIS/VAGINOSIS DNA PROB Wander 08-24-2022 Tiffany species Positive Abnormal Negative [facility] Comment on above: Performed By: #### C MP, CMADM #### [facility] [address] [address] [address] Kush Call Gardnerella vaginalis Positive Abnormal Negative [facility] Comment on above: Performed By: #### C MP, CMADM #### [facility] [address] [address] [address] Kush Call Trichomonas vaginalis Negative Normal Negative [facility] Comment on above: Performed By: #### C MP, CMADM #### [facility] [address] [address] [address] Kush Call ECHOCARDIO M/2D COMPLETEon 0 11-06-2021 ECHOCARDIO M/2D COMPLETE Patient: RICA STOUT Exam Date: 11/06/2021 : 1995 Gender:F Ordering : KLARISSA CHAMBERS Admission #: [id number] Family : DANUTA ARAUJO [facility] Order #: [id number] CLICK HERE TO VIEW EXAM ECHOCARDIOGRAM REPORT [...] Wilkinson M.D. on 11/06/2021 at 15:53 [facility] 11-11 Hep A Ab,IgM Non-Reactive Normal NR [facility] Comment on above: Performed By: #### L IVP #### [facility] [address] [place] [address] Insurance Policy Clerk: Karyna Silva MD #### PHEP #### [address] [address] Insurance Policy Clerk: Leonardo Sánchez MD Hep B Core Ab,IgM Non-Reactive Normal NR [facility] Comment on above: Performed By: #### L IVP #### [facility] [address] [place] [address] [address] [place], [place] [id number] Insurance Policy Clerk: Karyna Silva MD #### PHEP #### [facility] [address] [place], [place] [id number] Insurance Policy Clerk: Leonardo Sánchez MD Hep B Surf Ag Non-Reactive Normal [facility] Comment on above: Performed By: #### L IVP #### [facility] [address] [place], [place] [id number] Insurance Policy Clerk: Karyna Silva MD #### PHEP #### [address] [place], [place] [id number] Insurance Policy Clerk: Leonardo Sánchez MD Hep C Ab Non-Reactive Normal [facility] [facility] Comment on above: Result Comment: The hepatitis [...] PCR. Performed By: #### L IVP #### [facility] [address] [place] [address] Dr. [place], [place] [id number] Insurance Policy Clerk: Karyna Silva MD #### PHEP #### [address] [address] Insurance Policy Clerk: Leonardo Sánchez MD HCG, Quanton 11-10-2020 HCG, Quant <1 Normal <5 [facility] Comment on above: Result Comment: Non-preg premeno <=5 Postmeno <=8 Male <=3 If HCG results do not concur with clinical observations, additional testing to confirm results is recommended. Elevated results not associated with may be found in patients with other diseases such as tumors of the germ cells (testis, ovaries, etc.), bladder, pancreas, stomach, lungs, and liver. Performed By: #### B HCG #### [facility] [address] [place] [address] Insurance Policy Clerk: Karyna Silva MD HCG, Quantitative, Ordered By: Massimo Bright on 11-10-2020 hCG Quant <1 <5 IU/L [facility] Phone: Comment on above: Non-preg premeno <=5 [...] [Mass/Vol] 4.6 g/dL 3.5 - 5.2 g/dL [facility] Phone: Albumin/Globulin [Mass ratio] 1.5 {ratio} [facility] Phone: ALP (Bld) [Catalytic activity/Vol] 95 U/L 35 - 104 U/L [facility] Phone: ALT [Catalytic activity/Vol] 54 U/L High 5 - 33 U/L [facility] Phone: AST [Catalytic activity/Vol] 62 U/L High <32 [facility] Phone: Bilirubin [Mass/Vol] 0.93 mg/dL 0.3 - 1 .2 mg/dL [facility] Phone: Bilirubin, Indirect 0.72 mg/dL 0.00 - 1 .00 mg/dL [facility] Phone: Bilirubin.indirect [Mass/Vol] 0.21 mg/dL <0.31 [facility] Phone: Free PSA/Total PSA [Mass fraction] 7.6 g/dL 6.4 - 8.3 g/dL [facility] Phone: Globulin NOT REPORTED 1.5 - 3.8 g/dL [facility] Phone: Interpretation and review of laboratory results Abnormal [facility] Phone: Hepatitis Panel, AcuteOrdere d By: Inocencio Bender on 11-10-2020 HAV IgM IA Qn (S) Non-Reactive NONREACTIVE [employer] Phone: Hep B Core Ab, IgM Non-Reactive NONREACTIVE [employer] Phone: Hepatitis B Surface Ag Non-Reactive NONREACTIVE [facility] Phone: Hepatitis C Ab Non-Reactive NONREACTIVE [facility] Phone: Comment on above: The hepatitis C [...] 11-10-2020 Albumin [Mass/Vol] 4.6 g/dL Normal 3.5-5.2 [facility] Comment on above: Performed By: #### L IVP #### [facility] [address] [place] [address] Insurance Policy Clerk: Karyna Silva MD #### PHEP #### [facility] [place] [facility] [place], [place] [id number] Insurance Policy Clerk: Leonardo Sánchez MD Albumin/Glob Ratio 1.5 Normal 1.0-2.5 [facility] Comment on above: Performed By: #### L IVP #### [facility] [address] [place] [address] Insurance Policy Clerk: Karyna Silva MD #### PHEP #### [facility] [place] [facility] [place] [address] Insurance Policy Clerk: Leonardo Sánchez MD Alkaline Phos 95 U/L Normal 35-104 [facility] Comment on above: Performed By: #### L IVP #### [facility] [address] [place], [place] [id number] Insurance Policy Clerk: Karyna Silva MD #### PHEP #### [address] [address] Insurance Policy Clerk: Leonardo Sánchez MD ALT [Catalytic activity/Vol] 54 U/L High 5-33 [facility] Comment on above: Performed By: #### L IVP #### [facility] [address] [place] [address] Dr. [place], [place] [id number] Insurance Policy Clerk: Karyna Silva MD #### PHEP #### [address] [address] Insurance Policy Clerk: Leonardo Sánchez MD AST [Catalytic activity/Vol] 62 U/L High <32 [facility] Comment on above: Performed By: #### L IVP #### [facility] [address] [place] [address] Dr. [place], [place] [id number] Insurance Policy Clerk: Karyna Silva MD #### PHEP #### [address] [address] Insurance Policy Clerk: Leonardo Sánchez MD Bilirubin [Mass/Vol] 0.93 mg/dL Normal 0.3-1.2 [facility] Comment on above: Performed By: #### L IVP #### [facility] [address] [place] [address] Dr. [place], [place] [id number] Insurance Policy Clerk: Karyna Silva MD #### PHEP #### [address] [address] Insurance Policy Clerk: Leonardo Sánchez MD Bilirubin, Indirect 0.72 mg/dL Normal 0.00-1.00 [facility] Comment on above: Performed By: #### L IVP #### [facility] [address] [place], [place] [id number] Insurance Policy Clerk: Karyna Silva MD #### PHEP #### [address] [phone] Insurance Policy Clerk: Leonardo Sánchez MD Bilirubin.indirect [Mass/Vol] 0.21 mg/dL Normal <0.31 [facility] Comment on above: Performed By: #### L IVP #### [facility] [address] [place] [address] Insurance Policy Clerk: Karyna Silva MD #### PHEP #### [address] [id number] Insurance Policy Clerk: Leonardo Sánchez MD Protein [Mass/Vol] 7.6 g/dL Normal 6.4-8.3 [facility] Comment on above: Performed By: #### L IVP #### [facility] [address] [place], [place] [id number] Insurance Policy Clerk: Karyna Silva MD #### PHEP #### [address] [address] Insurance Policy Clerk: Leonardo Sánchez MD Globulin Fraction NOT REPORTED Normal 1.5-3.8 [facility] Comment on above: Performed By: #### L IVP #### [facility] [address] [place], [place] [id number] Insurance Policy Clerk: Karyna Silva MD #### PHEP #### [address] [address] Insurance Policy Clerk: Leonardo Sánchez MD CBCon 04-06-2020 Erythrocyte distribution width (RBC) [Ratio] 11.8 % Normal 11.8-14.4 [facility] Comment on above: Performed By: #### C P, CBC #### [facility] [address] [place], [place] 3591983 Insurance Policy Clerk: Amilcar Wing MD #### HIVCMB #### [address] [id number] Insurance Policy Clerk: Leonardo Sánchez MD Hematocrit (Bld) [Volume fraction] 43.4 % Normal 36.3-47.1 [facility] Comment on above: Performed By: #### C P, CBC #### [address] [place] [address] Insurance Policy Clerk: Amilcar Wing MD #### HIVCMB #### [address] [id number] Insurance Policy Clerk: Leonardo Sánchez MD Hemoglobin (Bld) [Mass/Vol] 14.4 g/dL Normal 11.9-15.1 [facility] Comment on above: Performed By: #### C P, CBC #### [address] [place] [id number] Insurance Policy Clerk: Amilcar Wing MD #### HIVCMB #### [address] [phone] Insurance Policy Clerk: Leonardo Sánchez MD MCH (RBC) [Entitic mass] 33.0 pg Normal 25.2-33.5 [facility] Comment on above: Performed By: #### C P, CBC #### [address] [place], [place] 1760883 Insurance Policy Clerk: Amilcar Wing MD #### HIVCMB #### [address] [phone] Insurance Policy Clerk: Leonardo Sánchez MD MCHC (RBC) [Mass/Vol] 33.2 g/dL Normal 28.4-34.8 [facility] Comment on above: Performed By: #### C P, CBC #### [address] [place] [id number] Insurance Policy Clerk: Amilcar Wing MD #### HIVCMB #### [address] [phone] Insurance Policy Clerk: Leonardo Sánchez MD MCV (RBC) [Entitic vol] 99.3 fL Normal 82.6-102.9 M [facility] Comment on above: Performed By: #### C P, CBC #### [address] [place] [id number] Insurance Policy Clerk: Amilcar Wing MD #### HIVCMB #### [place] [id number] Insurance Policy Clerk: Leonardo Sánchez MD NRBC Automated 0.0 per 100 WBC Normal 0.0 [facility] Comment on above: Performed By: #### C P, CBC #### [address] [place] [phone] ( Insurance Policy Clerk: Amilcar Wing MD #### HIVCMB #### [place] [address] Insurance Policy Clerk: Leonardo Sánchez MD Platelet mean volume (Bld) [Entitic vol] 9.4 fL Normal 8.1-13.5 [facility] Comment on above: Performed By: #### C P, CBC #### [address] [place] [id number] Insurance Policy Clerk: Amilcar Wing MD #### HIVCMB #### [address] [id number] Insurance Policy Clerk: Leonardo Sánchez MD Platelets (Bld) [#/Vol] 238 10*3/uL Normal 138-453 [facility] Comment on above: Performed By: #### C P, CBC #### [address] [place] [address] Insurance Policy Clerk: Amilcar Wing MD #### HIVCMB #### [place] [address] [place] [address] Insurance Policy Clerk: Leonardo Sánchez MD RBC (Bld) [#/Vol] 4.37 10*6/uL Normal 3.95-5.11 [facility] Comment on above: Performed By: #### C P, CBC #### [address] [place] [address] Insurance Policy Clerk: Amilcar Wing MD #### HIVCMB #### [place] [address] [place] [address] Insurance Policy Clerk: Leonardo Sánchez MD WBC (Bld) [#/Vol] 7.5 10*3/uL Normal 3.5-11.3 [facility] Comment on above: Performed By: #### C P, CBC #### [address] [place] [address] Insurance Policy Clerk: Amilcar Wing MD #### HIVCMB #### [place] [address] [place] [id number] Insurance Policy Clerk: Leonardo Sánchez MD Erythrocyte distribution width (RBC) [Ratio] 11.8 % 11.8 - 14.4 % [place] Hematocrit (Bld) [Volume fraction] 43.4 % 36.3 - 47.1 % [place] Hemoglobin (Bld) [Mass/Vol] 14.4 g/dL 11.9 - 15.1 g/dL [place] MCH (RBC) [Entitic mass] 33.0 pg 25.2 - 33.5 pg [place] MCHC (RBC) [Mass/Vol] 33.2 g/dL 28.4 - 34.8 g/dL [place] MCV (RBC) [Entitic vol] 99.3 fL 82.6 - 102.9 fL [place] Platelet mean volume (Bld) [Entitic vol] 9.4 fL 8.1 - 13.5 fL [place] Platelets (Bld) [#/Vol] 238 10*3/uL [place] RBC (Bld) [#/Vol] 4.37 10*6/uL 3.95 - 5.1 1 m/uL [place] WBC (Bld) [#/Vol] 7.5 10*3/uL [place] WBC (Bld) [#/Vol] 0.0 10*3/uL 0.0 per 10 0 WBC [place] Comp Metabolic Profon 2019 (cont.) Normal [facility] Comment on above: Result Comment: Aver age GFR for 20-29 years old: 116 mL/min/1.73sq m Chronic Kidney Disease: <60 mL/min/1.73sq m Kidney failure: <15 mL/min/1.73sq m eGFR calculated using average adult body mass. Additional eGFR calculator available at: http://www.[employer]/multiple_crcl_2012.htm Performed By: #### C P, CBC #### [facility] [address] [place] [address] [place] [address] Insurance Policy Clerk: Amilcar Wing MD #### HIVCMB #### [address] [address] Insurance Policy Clerk: Leonardo Sánchez MD Albumin [Mass/Vol] 4.3 g/dL Normal 3.5-5.2 [facility] Comment on above: Performed By: #### C P, CBC #### [facility] [address] [place] [address] Insurance Policy Clerk: Amilcar Wing MD #### HIVCMB #### [place] [address] [place], [place] [id number] Insurance Policy Clerk: Leonardo Sánchez MD Albumin/Glob Ratio 1.5 Normal 1.0-2.5 [facility] Comment on above: Performed By: #### C P, CBC #### [address] [place], [place] 8771583 Insurance Policy Clerk: Amilcar Wing MD #### HIVCMB #### [address] [address] Insurance Policy Clerk: Leonardo Sánchez MD Alkaline Phos 68 U/L Normal 35-104 [facility] Comment on above: Performed By: #### C P, CBC #### [facility] [address] [place] [address] Dr. [place] [id number] Insurance Policy Clerk: Amilcar Wing MD #### HIVCMB #### [address] [address] Insurance Policy Clerk: Leonardo Sánchez MD ALT [Catalytic activity/Vol] 48 U/L High 5-33 [facility] Comment on above: Performed By: #### C P, CBC #### [address] [place] [id number] Insurance Policy Clerk: Amilcar Wing MD #### HIVCMB #### [address] [address] Insurance Policy Clerk: Leonardo Sánchez MD Anion gap [Moles/Vol] 10 mmol/L Normal 9-17 [facility] Comment on above: Performed By: #### C P, CBC #### [address] [place] [id number] Insurance Policy Clerk: Amilcar Wing MD #### HIVCMB #### [address] [address] Insurance Policy Clerk: Leonardo Sánchez MD AST [Catalytic activity/Vol] 30 U/L Normal <32 [facility] Comment on above: Performed By: #### C P, CBC #### [address] [place], [place] 0882583 Insurance Policy Clerk: Amilcar Wing MD #### HIVCMB #### [place] [address] [place] [address] Insurance Policy Clerk: Leonardo Sánchez MD Bilirubin [Mass/Vol] 0.89 mg/dL Normal 0.3-1.2 [facility] Comment on above: Performed By: #### C P, CBC #### [facility] [address] [place], [place] 0106983 Insurance Policy Clerk: Amilcar Wing MD #### HIVCMB #### [address] [address] Insurance Policy Clerk: Leonardo Sánchez MD BUN/CRE Ratio 10 Normal 9-20 [facility] Comment on above: Performed By: #### C P, CBC #### [facility] [address] [place] [address] [place], [place] [id number] Insurance Policy Clerk: Amilcar Wing MD #### HIVCMB #### [address] [address] Insurance Policy Clerk: Leonardo Sánchez MD Calcium [Mass/Vol] 9.5 mg/dL Normal 8.6-10.4 [facility] Comment on above: Performed By: #### C P, CBC #### [address] [place], [place] 4677583 Insurance Policy Clerk: Amilcar Wing MD #### HIVCMB #### [address] [address] Insurance Policy Clerk: Leonardo Sánchez MD Chloride [Moles/Vol] 103 mmol/L Normal 98-107 [facility] Comment on above: Performed By: #### C P, CBC #### [facility] [address] [place] [address] [place], [place] 1949383 Insurance Policy Clerk: Amilcar Wing MD #### HIVCMB #### [address] [address] Insurance Policy Clerk: Leonardo Sánchez MD CO2 [Moles/Vol] 22 mmol/L Normal 20-31 [facility] Comment on above: Performed By: #### C P, CBC #### [facility] [address] [place] [address] Insurance Policy Clerk: Amilcar Wing MD #### HIVCMB #### [address] [phone] Insurance Policy Clerk: Leonardo Sánchez MD Creatinine [Mass/Vol] 0.69 mg/dL Normal 0.50-0.90 [facility] Comment on above: Performed By: #### C P, CBC #### [facility] [address] [place], [place] [id number] Insurance Policy Clerk: Amilcar Wing MD #### HIVCMB #### [address] [address] Insurance Policy Clerk: Leonardo Sánchez MD GFR, Amer >60 Normal >60 [facility] Comment on above: Performed By: #### C P, CBC #### [facility] [address] [place], [id number] Insurance Policy Clerk: Amilcar Wing MD #### HIVCMB #### [address] [address] Insurance Policy Clerk: Leonardo Sánchez MD GFR,non Amer >60 Normal >60 [facility] Comment on above: Performed By: #### C P, CBC #### [facility] [address] [place], [place] [id number] Insurance Policy Clerk: Amilcar Wing MD #### HIVCMB #### [address] [address] Insurance Policy Clerk: Leonardo Sánchez MD Glucose [Mass/Vol] 106 mg/dL High 70-99 [facility] Comment on above: Performed By: #### C P, CBC #### [address] [place], [place] 1762383 Insurance Policy Clerk: Amilcar Wing MD #### HIVCMB #### [address] [phone] Insurance Policy Clerk: Leonardo Sánchez MD Potassium [Moles/Vol] 4.3 mmol/L Normal 3.7-5.3 [facility] Comment on above: Performed By: #### C P, CBC #### [address] [place], [place] 3755483 Insurance Policy Clerk: Amilcar Wing MD #### HIVCMB #### [address] [phone] Insurance Policy Clerk: Leonardo Sánchez MD Protein [Mass/Vol] 7.1 g/dL Normal 6.4-8.3 [facility] Comment on above: Performed By: #### C P, CBC #### [address] [place], [place] 7237883 Insurance Policy Clerk: Amilcar Wing MD #### HIVCMB #### [address] [address] Insurance Policy Clerk: Leonardo Sánchez MD Sodium [Moles/Vol] 135 mmol/L Normal 135-144 [facility] Comment on above: Performed By: #### C P, CBC #### [address] [place], [place] 9191283 Insurance Policy Clerk: Amilcar Wing MD #### HIVCMB #### [address] [address] Insurance Policy Clerk: Leonardo Sánchez MD Staging: Normal [facility] Comment on above: Result Comment: Stag e 1: Some kidney damage normal GFR Stage 2: Mild kidney damage GFR 60-89 Stage 3: Moderate kidney damage GFR 30-59 Stage 4: Severe kidney damage GFR 15-29 Stage 5: Severe kidney damage GFR <15 ESRD - chronic treatment by dialysis or transplant Performed By: #### C P, CBC #### [facility] [address] [place] [address] Insurance Policy Clerk: Amilcar Wing MD #### HIVCMB #### [facility] [address] [place], [place] 1925[address] Insurance Policy Clerk: Leonardo Sánchez MD Urea nitrogen [Mass/Vol] 7 mg/dL Normal 6-20 [facility] Comment on above: Performed By: #### C P, CBC #### [facility] [address] [place] [address] Insurance Policy Clerk: Amilcar Wing MD #### HIVCMB #### [facility] [address] [place], [place] [phone] Insurance Policy Clerk: Leonardo Sánchez MD [facility] 04-06-2020 Albumin [Mass/Vol] 4.3 g/dL 3.5 - 5.2 g/dL [place] Albumin/Globulin [Mass ratio] 1.5 {ratio} [place] ALP [Catalytic activity/Vol] 68 U/L 35 - 104 U/L [place] ALT [Catalytic activity/Vol] 48 U/L High 5 - 33 U/L [place] Anion gap [Moles/Vol] 10 mmol/L 9 - 17 mmol/L [place] AST [Catalytic activity/Vol] 30 U/L <32 [place] Bilirubin Ql (U) 0.89 mg/dL 0.3 - 1.2 mg/dL [place] Bun/Cre Ratio 10 [place] Calcium [Mass/Vol] 9.5 mg/dL 8.6 - 10. 4 mg/dL [place] Chloride [Moles/Vol] 103 mmol/L 98 - 10 7 mmol/L [place] CO2 [Moles/Vol] 22 mmol/L 20 - 31 mmol/L [place] Creatinine [Mass/Vol] 0.69 mg/dL 0.5 - 0.9 mg/dL [place] GFR >60 >60 mL/min [place], [place] GFR Non- >60 >60 mL/min [place] Glucose [Mass/Vol] 106 mg/dL High 70 - 99 mg/dL [place] Interpretation and review of laboratory results Abnormal [place] Potassium [Moles/Vol] 4.3 mmol/L 3.7 - 5.3 mmol/L [place] Protein [Mass/Vol] 7.1 g/dL 6.4 - 8.3 g/dL [place] Sodium [Moles/Vol] 135 mmol/L 135 - 144 mmol/L [place] Urea nitrogen [Mass/Vol] 7 mg/dL 6 - 20 mg/dL [place] HIV Ag/Abon 04-06-2020 HIV Ag/Ab Non-Reactive Normal NR [facility] Comment on above: Result Comment: No l aboratory evidence of HIV infection. If acute HIV infection is suspected, consider testing for HIV-1 RNA. Performed By: #### C P, CBC #### [facility] [address] [place] [address] Insurance Policy Clerk: Amilcar Wing MD #### HIVCMB #### [place] [address] [place], [place] [id number] Insurance Policy Clerk: Leonardo Sánchez MD HIV Screenon 04-06-2020 HIV Ag/Ab NONREACTIVE NONREACTIVE [place] Comment on above: No laboratory eviden ce of HIV infection. If acute HIV infection is suspected, consider testing for HIV-1 RNA. Metabolic Panelon 04-06-2020 GFR/1.73 sq M predicted among non-blacks MDRD (S/P/Bld) [Vol rate/Area] [place] Comment on above: Stage 1: Some [...] body mass. Additional eGFR calculator available at: http://www.[employer]/multiple_crcl_2012.htm Vital Signs Date Time Vital Sign Value Performing Clinician Emmett betts 11-13-2023 09:48-0400 Body temperature 97.2 [degF] [employer] Danuta Swati Work Phone: [facility] 11-13-2023 09:48-0400 Body weight 71.66 kg [employer] Danuta Swati Work Phone: [facility] 11-13-2023 09:48-0400 Diastolic blood pressure 64 mm[Hg] [employer] Danuta Swati Work Phone: [facility] 11-13-2023 09:48-0400 Heart rate 99 /min [employer] Danuta Swati Work Phone: [facility] 11-13-2023 09:48-0400 Respiratory rate 16 /min [employer] Danuta Swati Work Phone: [facility] 11-13-2023 09:48-0400 SaO2% (BldA) [Mass fraction] 99 % [employer] Danuta Swati Work Phone: [facility] 11-13-2023 09:48-0400 Systolic blood pressure 105 mm[Hg] [employer] Danuta Swati Work Phone: [facility] 08-01-2023 15:00-0500 Diastolic blood pressure 74 mm[Hg] Maddie Lopez MD Work Phone: [facility] 08-01-2023 15:00-0500 Heart rate 88 /min Maddie Lopez MD Work Phone: [facility] 08-01-2023 15:00-0500 Systolic blood pressure 122 mm[Hg] Maddie Lopez MD Work Phone: [facility] 08-01-2023 14:59-0500 Body height 160 cm Maddie Lopez MD Work Phone: [facility] 08-01-2023 14:59-0500 Body mass index (BMI) [Ratio] 24.23 kg/m2 Maddie Lopez MD Work Phone: [facility] 08-01-2023 14:59-0500 Body weight 62.05 kg Maddie Loepz MD Work Phone: [facility] 08-01-2023 14:59-0500 Respiratory rate 18 /min Maddie Lopez MD Work Phone: [facility] 07-03-2023 09:02-0500 Body temperature 97.1 [degF] [employer] Danuta Swati Work Phone: [facility] 07-03-2023 09:02-0500 Body weight 63.04 kg [employer] Danuta Swati Work Phone: [facility] 07-03-2023 09:02-0500 Diastolic blood pressure 81 mm[Hg] [employer] Danuta Swati Work Phone: [facility] 07-03-2023 09:02-0500 Heart rate 111 /min [employer] Danuta Swati Work Phone: [facility] 07-03-2023 09:02-0500 Respiratory rate 16 /min [employer] Danuta Swati Work Phone: [facility] 07-03-2023 09:02-0500 SaO2% (BldA) [Mass fraction] 99 % [employer] Danuta Swati Work Phone: [facility] 07-03-2023 09:02-0500 Systolic blood pressure 120 mm[Hg] [employer] Danuta Swati Work Phone: [facility] 06-12-2023 10:40-0500 Diastolic blood pressure 79 mm[Hg] [employer] Danuta Swati Work Phone: [facility] 06-12-2023 10:40-0500 Heart rate 102 /min [employer] Danuta Swati Work Phone: [facility] 06-12-2023 10:40-0500 Respiratory rate 20 /min [employer] Danuta Swati Work Phone: [facility] 06-12-2023 10:40-0500 SaO2% (BldA) [Mass fraction] 98 % [employer] Danuta Swati Work Phone: [facility] 06-12-2023 10:40-0500 Systolic blood pressure 116 mm[Hg] [employer] Danuta Swati Work Phone: [facility] 06-12-2023 09:21-0500 Body height 162.56 cm [employer] Danuta Swati Work Phone: [facility] 06-12-2023 09:21-0500 Body temperature 98.7 [degF] [employer] PROF[employer] Danuta Swati Work Phone: [facility] 06-12-2023 09:21-0500 Body weight 60.32 kg [employer] Danuta Swati Work Phone: [facility] 05-30-2023 14:24-0500 Body temperature 98.1 [degF] [employer] PROF[employer] Danuta Swati Work Phone: [facility] 05-30-2023 14:24-0500 Body weight 61.91 kg [employer] Danuta Swati Work Phone: [facility] 05-30-2023 14:24-0500 Diastolic blood pressure 80 mm[Hg] [employer] Danuta Swati Work Phone: [facility] 05-30-2023 14:24-0500 Heart rate 121 /min [employer] Danuta Swati Work Phone: [facility] 05-30-2023 14:24-0500 Respiratory rate 20 /min [employer] Danuta Swati Work Phone: [facility] 05-30-2023 14:24-0500 SaO2% (BldA) [Mass fraction] 100 % [employer] Danuta Araujo Work Phone: [facility] 05-30-2023 14:24-0500 Systolic blood pressure 116 mm[Hg] [employer] PROF[employer]OR-C Danutasun Araujo Work Phone: [facility] 05-30-2023 14:11-0500 Body height 162.56 cm [employer] PROF[employer] Danutasun Araujo Work Phone: [facility] 05-23-2023 14:08-0400 Body height 162.6 cm Arsh Orozco MD Work Phone: [facility] 05-23-2023 14:08-0400 Body weight 61.24 kg Arsh Orozco MD Work Phone: [facility] 05-23-2023 14:08-0400 Diastolic blood pressure 72 mm[Hg] Arsh Orozco MD Work Phone: [facility] 05-23-2023 14:08-0400 Heart rate 104 /min Arsh Orozco MD Work Phone: [facility] 05-23-2023 14:08-0400 Respiratory rate 16 /min Arsh Orozco MD Work Phone: [facility] 05-23-2023 14:08-0400 SaO2% (BldA) [Mass fraction] 100 % Arsh Orozco MD Work Phone: [facility] 05-23-2023 14:08-0400 Systolic blood pressure 105 mm[Hg] Arsh Orozco MD Work Phone: [facility] 04-03-2023 06:41-0400 Body temperature 98.4 [degF] [employer] Danuta Araujo Work Phone: [facility] 04-03-2023 06:41-0400 Diastolic blood pressure 67 mm[Hg] [employer] Danuta Araujo Work Phone: [facility] 04-03-2023 06:41-0400 Heart rate 107 /min [employer] Danuta Swati Work Phone: [facility] [facility] 04-03-2023 06:41-0400 Respiratory rate 16 /min AMERICAN STUDIES PROFESSOR-C Danuta Swati Work Phone: [facility] 04-03-2023 06:41-0400 SaO2% (BldA) [Mass fraction] 98 % AMERICAN STUDIES PROFESSOR-C Danuta Swati Work Phone: [facility] 04-03-2023 06:41-0400 Systolic blood pressure 108 mm[Hg] AMERICAN STUDIES PROFESSOR-C Danuta Swati Work Phone: [facility] 04-02-2023 12:51-0400 Body height 162.56 cm AMERICAN STUDIES PROFESSOR-C Danuta Swati Work Phone: [facility] 03-31-2023 04:20-0400 Body weight 60.9 kg AMERICAN STUDIES PROFESSOR-C Danuta Swati Work Phone: [facility] 03-27-2023 11:48-0400 Body temperature 97.8 [degF] AMERICAN STUDIES PROFESSOR-C Danuta Swati Work Phone: [facility] 03-27-2023 11:48-0400 Diastolic blood pressure 92 mm[Hg] AMERICAN STUDIES PROFESSOR-C Danuta Swati Work Phone: [facility] 03-27-2023 11:48-0400 Heart rate 84 /min AMERICAN STUDIES PROFESSOR-C Danuta Swati Work Phone: [facility] 03-27-2023 11:48-0400 Respiratory rate 13 /min AMERICAN STUDIES PROFESSOR-C Danuta Swati Work Phone: [facility] 03-27-2023 11:48-0400 SaO2% (BldA) [Mass fraction] 100 % AMERICAN STUDIES PROFESSOR-C Danuta Swati Work Phone: [facility] 03-27-2023 11:48-0400 Systolic blood pressure 132 mm[Hg] AMERICAN STUDIES PROFESSOR-C Danuta Swati Work Phone: [facility] 03-27-2023 06:00-0400 Body weight 59.9 kg AMERICAN STUDIES PROFESSOR-C Danuta Swati Work Phone: [facility] 03-22-2023 11:40-0400 Body height 162.56 cm AMERICAN STUDIES PROFESSOR-C Danuta Swati Work Phone: [facility] 03-22-2023 01:40-0400 Body height 162.56 cm AMERICAN STUDIES PROFESSOR-C Danuta Swati Work Phone: [facility] 03-22-2023 01:40-0400 Body temperature 98.1 [degF] AMERICAN STUDIES PROFESSOR-C Danuta Swati Work Phone: [facility] 03-22-2023 01:40-0400 Body weight 64.4 kg AMERICAN STUDIES PROFESSOR-C Danuta Swati Work Phone: [facility] 03-22-2023 01:40-0400 Diastolic blood pressure 75 mm[Hg] AMERICAN STUDIES PROFESSOR-C Danuta Swati Work Phone: [facility] 03-22-2023 01:40-0400 Heart rate 98 /min AMERICAN STUDIES PROFESSOR-C Danuta Swati Work Phone: [facility] 03-22-2023 01:40-0400 Respiratory rate 13 /min AMERICAN STUDIES PROFESSOR-C Danuta Swati Work Phone: [facility] 03-22-2023 01:40-0400 SaO2% (BldA) [Mass fraction] 100 % AMERICAN STUDIES PROFESSOR-C Danuta Swati Work Phone: [facility] 03-22-2023 01:40-0400 Systolic blood pressure 123 mm[Hg] AMERICAN STUDIES PROFESSOR-C Danuta Swati Work Phone: [facility] Encounters Encounter Date Encounter Type Care Provider Facility Start: 07-23-2024 End: 07-23-2024 ambulatory [facility] Work Phone: Start: 07-23-2024 End: 07-23-2024 Patient encounter procedure [facility] Work Phone: Start: 07-02-2024 ambulatory HAVEN NIÑO CNP Facility: [facility] Start: 01-15-2024 End: 01-15-2024 ambulatory MASSIMO BRIGHT Not Available Start: 12-11-2023 End: 12-11-2023 Patient encounter procedure AMERICAN STUDIES PROFESSOR-C Danuta Araujo Work Phone: [facility] [address] Work Phone: Start: 12-11-2023 End: 12-11-2023 ambulatory AMERICAN STUDIES PROFESSOR-C Danuta Diana Araujo Work Phone: [facility] Work Phone: Start: 11-13-2023 End: 11-13-2023 ambulatory AMERICAN STUDIES PROFESSOR-C Danuta Diana Araujo Work Phone: [facility] Work Phone: Start: 11-13-2023 End: 11-13-2023 Patient encounter procedure AMERICAN STUDIES PROFESSOR-C Danuta Araujo Work Phone: [facility] Work Phone: Start: 11-13-2023 Registered Recurring AMERICAN STUDIES PROFESSOR-C Isidra Harper Work Phone: [facility] Acute Work Phone: Start: 11-13-2023 ambulatory Keshav Arrington Facility:[facility] Start: 09-05-2023 End: 09-06-2023 ambulatory DANUTA ARAUJO Facility:[facility] Start: 08-08-2023 End: 08-08-2023 ambulatory JOEL NOE Facility:[facility] Start: 08-01-2023 End: 08-01-2023 ambulatory MADDIE LOPEZ [facility] Start: 08-01-2023 End: 08-01-2023 Office outpatient new 45 minutes Maddie Lopez MD [facility] Comment on above: Vascular insufficien cy (Primary Dx); Dizziness; Near syncope; Supraventricular tachycardia Start: 07-09-2023 End: 07-09-2023 ambulatory NETTIE SHEA [facility] Start: 07-03-2023 End: 07-03-2023 ambulatory AMERICAN STUDIES PROFESSOR-C Danuta Diana Araujo Work Phone: [facility] Work Phone: Start: 07-03-2023 End: 07-03-2023 Registered Recurring AMERICAN STUDIES PROFESSOR-C Danuta Swati Work Phone: [facility] Work Phone: Start: 06-12-2023 End: 06-12-2023 Admission to same day surgery center AMERICAN STUDIES PROFESSOR-C Danuta Swati Work Phone: [facility] [place] Work Phone: Start: 06-12-2023 End: 06-12-2023 ambulatory AMERICAN STUDIES PROFESSOR-C Danuta Diana Swati Work Phone: [facility] Work Phone: Start: 06-10-2023 End: 06-10-2023 ambulatory MARTHA [facility] Start: 05-31-2023 ambulatory Jeannie Stacey brantley APRN.CNP Work Phone: Gastroenterology Comment on above: [facility] Start: 05-30-2023 End: 05-30-2023 ambulatory AMERICAN STUDIES PROFESSOR-C Danuta Araujo Work Phone: [facility] Work Phone: Start: 05-30-2023 End: 05-30-2023 Registered Recurring AMERICAN STUDIES PROFESSOR-C Danuta Swati Work Phone: [facility] Work Phone: Start: 05-23-2023 End: 05-23-2023 ambulatory ARSH OROZCO Facility:[facility] Start: 05-23-2023 End: 05-23-2023 Patient encounter procedure Arsh Orozco MD Work Phone: Neurology Comment on above: Burning sensation (P rimary Dx); Disturbance of skin sensation Start: 05-14-2023 End: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 encounter, reviewed the history and the relevant portions of the chart, including current orders, allied health and loans consultant notes, labs/imaging and performed wren elements of exam and I formulated the plan of care and facilitated the medical decision making. Documented By: Marc Giron MD 03/26/23 0950 Signed By: <Electronically signed by Marc Giron MD> 03/26/23 3350 [facility] Work Phone: 1(516) 482-615309-04-2023 Progress note Author Brianne Umanzor [facility] March 25, 2023 1:31pm Note Date/Time March 25, 2023 1:31pm [facility] [address] [place] [address] Hospitalist Progress Note Signed Patient: Rica Stout MR#: [id number] : 1995 Acct:[id number] Age/Sex: 27 / F Adm Date: 3 Loc: 4N Room: 6Y1084-9 Type: ADM IN Attending Dr: Brianne Umanzor [...] 03/25/23 11:01 03/25/23 11:01 03/25/23 11:01 03/25/23 11:03/25/23 11:01 Narrative: Const General: cooperative HEENT [...] signed by Brianne Umanzor MD> 03/25/23 1331 [facility] Work Phone: 1(519) 582-938409-03-2023 Progress note Author Brianne Umanzor [facility] March 24, 2023 12:31pm Note Date/Time March 24, 2023 12:31pm [facility] [address] [place] [address] Hospitalist Progress Note Signed Patient: Rica Stout MR#: [id number] : 1995 Acct:[id number] Age/Sex: 27 / F Adm Date: 3 Loc: 4N Room: 3P2148-7 Type: ADM IN Attending Dr: Brianne Umanzor [...] <Electronically signed by Brianne Umanzor MD> 03/24/23 1231 [facility] Work Phone: 1(626) 367-144809-03-2023 Progress note Author Loli Cheema [facility] March 24, 2023 10:52am Note Date/Time March 24, 2023 9:58am [facility] [address] [place] [address] Neurology Progress Note Signed Patient: Rica Stout MR#: [id number] : 1995 Acct:[id number] Age/Sex: 27 / F Adm Date: 3 Loc: 4N Room: [address] [place] [address] Type: ADM IN Attending Dr: Brianne Umanzor [...] of dysmetria with good rapid alternating movements [id number] Tone is physiologic Deep tendon reflexes are [...] be a hereditary sensorimotor neuropathy such as Dvpfost-Scxxe-Thawq and she will likely need some genetic [...] signed by DO Loli Cheema> 03/24/23 1052 [facility] Work Phone: 1(754) 527-762809-02-2023 Progress note Author Brianne Umanzor [facility] March 23, 2023 1:49pm Note Date/Time March 23, 2023 1:49pm [facility] [address] [place] [address] Hospitalist Progress Note Signed Patient: Rica Stout MR#: [id number] : 1995 Acct:[id number] Age/Sex: 27 / F Adm Date: 3 Loc: 4N Room: [address] [place] [address] Type: ADM IN Attending Dr: Brianne Umanzor [...] Room Air 03/23/23 11:23 03/23/23 11:23 03/23/23 11:23 03/23/23 11:23 03/23/23 11:23 03/23/23 08:00 Narrative: Const General: cooperative HEENT Normal [...] <Electronically signed by Brianne Umanzor MD> 03/23/23 2824 [facility] Work Phone: 1(438) 902-117109-02-2023 Progress note Author Loli Cheema [facility] March 23, 2023 12:13pm Note Date/Time March 23, 2023 11:07am [facility] [address] [place] [address] Neurology Progress Note Signed Patient: Rica Stout MR#: [id number] : 1995 Acct:[id number] Age/Sex: 27 / F Adm Date: 3 Loc: 4N Room: [address] [place] [address] Type: ADM IN Attending Dr: Brianne Umanzor [...] of dysmetria with good rapid alternating movements yqhmoy-fh-fkmj Tone is physiologic Deep tendon reflexes are [...] be a hereditary sensorimotor neuropathy such as Esafhdl-Llzoq-Pydve and she will likely need some genetic [...] 1107 Signed By: <Electronically signed by DO oLli Cheema> 03/23/23 [facility] Work Phone: 1(520) [phone] Consult note Author Chele Gamino [facility] March 22, 2023 3:54pm Note Date/Time March 22, 2023 1:28pm [facility] [address] [place] [address] Neurology Consult Note Signed Patient: Rica Stout MR#: [id number] : 1995 Acct:[id number] Age/Sex: 27 / F Adm Date: 3 Loc: 4N Room: [address] [place] [address] Type: ADM IN Attending Dr: Brianne Umanzor MD Copies to: DO Brianne Stevenson MD Pamela Sue Cramer, EMISSIONS TECHNICIAN~ HPI Consult Date: 03/22/23 Manager Employment: Chele Gamino DO [employer] Medical History (Updated 03/22/23 @ 01:53 [...] Dave Clark M.D.03/22/2023 8:07 AM Dictation Location: [place] [address] 03/21/23 21:23 IMPRESSION: Unremarkable exam Impression dictated by: Dave Clark M.D.03/22/2023 8:08 AM Dictation Location: [place] [address] Assessment/Plan (1) Weakness of distal arms and [...] supposed to have an appointment with a metal work duct installer today to figure out what to do [...] had to quit her job at a [employer] because it was too much time on [...] signed by Chele Gamino DO> 03/22/23 1554 [facility] Work Phone: 1(679) 183-235909-01-2023 Progress note Author Brianne Umanzor [facility] March 22, 2023 12:53pm Note Date/Time March 22, 2023 12:52pm [facility] [address] [place] [address] Progress Note Signed Patient: Rica Stout MR#: [id number] : 1995 Acct:[id number] Age/Sex: 27 / F Adm Date: 3 Loc: 4N Room: 4D6679-7 Type: ADM IN Attending Dr: Brianne Umanzor [...] signed by Brianne Umanzor MD> 03/22/23 1253 [facility] Work Phone: 1(445) 216-366009-01-2023 History and physical note Author Parveen Keller [facility] March 22, 2023 7:30am Note Date/Time March 22, 2023 1:25am [facility] [address] [place] [address] Hospitalist H&P Signed Patient: Rica Stout MR#: [id number] : 1995 Acct:[id number] Age/Sex: 27 / F Adm Date: 3 Loc: Room: [address] [place] [address] Type: ADM IN Attending Dr: Parveen Keller MD Copies to: MD Danuta Toscano, ANDREA Rico, SCALEHOUSE ATTENDANT~ HPI DATE OF EXAMINATION: 03/22/23 CHIEF COMPLAINT: [...] reports pitting edema to BLE, 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 She saw [...] has had testing done at the [facility] where they foundher liver enzymes were [...] bolus. She will be admitted to the [facility] floor under the care of thehospitalist team for further evaluation and treatment. Review of Systems Review of Systems Review of systems: A 10 point review of systems was obtained, negative unless noted in the HPI or below. ON LICENSE OF [facility] Medical History (Updated 03/22/23 @ 01:53 by [...] % (Auto) 29.7 % (.) 03/21/23 19:15 Island % (Auto) 7.6 % (.) 03/21/23 19:15 Eos % (Auto) 2.7 % (.) 03/21/23 19:15 Baso % (Auto) 1.6 % (.) 03/21/23 19:15 Nucleat RBC Rel Count 0.1 /100 WBC (0-0.5) 03/21/23 19:15 Neut # (Auto) 4.2 x10E3/uL (1.8-7.7) 03/21/23 19:15 Lymph # (Auto) 2.1 x10E3/uL (1.00-4.8) 03/21/23 19:15 Island # (Auto) 0.5 x10E3/uL (0.0-0.8) 03/21/23 19:15 [...] pH 5.0 (5.0-9.0) 03/21/23 19:25 Ur Specific [place] 1.019 (1.001-1.030) 03/21/23 19:25 Urine Protein Trace [...] CSF Neutrophils N/A 03/21/23 23:50 CSF Neutrophils Business Continuity Global Director 03/21/23 23:50 CSF Lymphocytes N/A 03/21/23 23:50 [...] the plan of care and confirmed the EMISSIONS TECHNICIAN's written note. Documented By: Yoana Rico APRN 03/22/23 0125 Signed By: <Electronically signed by HODAN Rico> 03/22/23 0207 <Electronically signed by Parveen Keller MD> 03/22/23 0730 [facility] Work Phone: Consult note Author Jane Tracey [facility] May 30, 2023 3:16pm Note Date/Time May 30, 2023 2 :16pm [facility] [place] [address] Hem/Onc Consult Note - OP Signed Patient: Rica Stout MR#: [id number] : 1995 Acct:[id number] Age/Sex: 27 / F Type: REG RCR Copies to: DO Danuta Drake CNP Sarah E Carroll, SCALEHOUSE ATTENDANT-PROFESSOR SCULPTURE-C~ HPI Date/Time of Service: Date of Service: 05/30/2023 Time of Service: 14:14 Referring Provider/PCP: Referring Provider: Keshav Arrington DO PCP: Danuta Araujo NP-Mikel - History of Present Illness Reason for [...] it was minimally effective. She also saw [facility] neurologist 05/22/23 but we do not [...] with and without contrast was done at [facility] on 03/27/2023 revealed no cord compression or abnormal postcontrast enhancement. No significant spinal canal narrowing or neural foraminal narrowing. MRI of the lumbar spine with without contrast on 03/22/2023 revealed mild degenerative changes without significant spinal canal or neuroforaminal narrowing. It did reveal broad based disc bulges at T12-L1 and L1-L2. But no masses or abnormal postcontrast enhancement. Abdominal ultrasound at [facility] on 03/22/2023 revealed a prominent liver suspicious [...] was 58 which were normal. She saw [facility] GI who recommended liver biopsy but then decided to follow observation for now for 6 months. 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 Her Lipids were very high as well. She also has hypopigmented skin spots on both arms since March 2023, saw dermatology at [facility] who performed a skin biopsy but told her what sounds she has vascular insufficiency but no reports were available to us as well. She has not been using folic acid or thiamin since they ran out beginning of April 2023. She is wearing 30 days monitor technician currently due to history of tachycardia and she has been using magnesium and atenolol for that. She liver in an old house that has molds, mice and not sure if it has lead as well. 14 points systems were reviewed and are negative. ON LICENSE OF [facility] - Medical History Medical History: Medical History [...] the reports from the skin biopsy, the [facility] dermatology note, and the [facility] neurology note. -Return in 4 weeks [...] December 2018. She saw GI at the [facility] who recommended transjugular liver biopsy which [...] etiology but she saw dermatology at the [facility] who performed a skin biopsy and the report of the skin biopsy is not available to us however she was told by dermatology there that she has vascular insufficiency causing the rash. -We will try to obtain the reports from the skin biopsy and dermatology note from [facility] dermatology. - Time with Patient Total Time Spent with Patient (Consult): 60 mins or more Coordination of Care & Counseling Time: Greater than 50% of time spent with patient was for coordination of care (as documented) and [id number] counseling of patient and/or family. Dictated By: Jane Tracey MD DD/ 1414 Signed By: <Electronically signed by Jane Tracey MD> 05/30/23 2678 [facility] Work Phone: Discharge summary Author Brianne Umanzor [facility] March 27, 2023 2:45pm Note Date/Time March 27, 2023 2:38pm [facility] [address] [place] [address] Discharge Summary Signed Patient: Rica Stout MR#: [id number] : 1995 Acct:[id number] Age/Sex: 27 / F Adm Date: 3 Loc: N Room: [address] [place] [address]: Brianne Umanzor MD Copies to: MD Danuta Hdz, EMISSIONS TECHNICIAN~ Providers Date of Discharge: 03/27/23 Discharging Provider: [...] GBS. She was found to have low and given once time dose here. Also [...] Discharge Plan Discharge Plan Patient Disposition: Rehab [facility] Activity: Ambulate as Tolerated Diet: Regular Additional [...] PO QAM Follow Up: [facility] [place] [Outside] (Please call to schedule an appointment when discharged from Rehab.) Documented By: Brianne Umanzor MD 03/27/23 14 37 Signed By: <Electronically signed by Brianne Umanzor MD> 03/27/23 1445 [facility] Work Phone: Evaluation + Plan note No data available for this section [facility] Evaluation note* Diagnosis Onset Date Resolution Status Bilateral leg paresthesia ac [place] History of ETOH abuse acute Hx of drug abuse acute Hypomagnesemia acute Hypophosphatemia acute Paresthesia of upper extremity acute Poor appetite acute Transaminitis acute UTI (urinary tract infection) acute Weakness acute Weakness of distal arms and legs acute Weight loss acute [facility] Work Phone: Evaluation note* Diagnosis Onset Date Resolution Status Bilateral leg paresthesia ac [place] History of ETOH abuse acute Hx of drug abuse acute Hypomagnesemia acute Hypophosphatemia acute Paresthesia of upper extremity acute Poor appetite acute Sensorimotor neuropathy acut e Transaminitis acute UTI (urinary tract infection) acute Weakness acute Weakness of distal arms and legs acute Weight loss acute [facility] Work Phone: Evaluation note* Diagnosis Onset Date Resolution Status Bilateral leg paresthesia ac [place] History of ETOH abuse acute Hx of drug abuse acute Hypomagnesemia acute Hypophosphatemia acute Paresthesia of upper extremity acute Poor appetite acute Sensorimotor neuropathy acut e Transaminitis acute UTI (urinary tract infection) acute Weakness acute Weakness of distal arms and legs acute Weight loss acute Bilateral leg paresthesia ac [place] Folate deficiency acute History of ETOH abuse acute Hx of drug abuse acute Hypomagnesemia acute Hypophosphatemia acute Impaired mobility and ADLs a cute Sensorimotor neuropathy acut e Transaminitis acute UTI (urinary tract infection) acute Weakness acute Weakness of distal arms and legs acute [facility] Work Phone: Evaluation note* Diagnosis Burning sensation- Primary Disturbance of skin sensation Disturbance of skin sensation [facility] Diagnosis Advanced hepatic fibrosis- Primary [facility] Diagnosis Onset Date Resolution Status Bilateral leg paresthesia ac [place] History of ETOH abuse acute Hx of drug abuse acute Hypomagnesemia acute Hypophosphatemia acute Paresthesia of upper extremity acute Poor appetite acute Sensorimotor neuropathy acut e Transaminitis acute UTI (urinary tract infection) acute Weakness acute Weakness of distal arms and legs acute Weight loss acute Bilateral leg paresthesia ac [place] Folate deficiency acute History of ETOH abuse acute Hx of drug abuse acute Hypomagnesemia acute Hypophosphatemia acute Impaired mobility and ADLs a cute Sensorimotor neuropathy acut e Transaminitis acute UTI (urinary tract infection) acute Weakness acute Weakness of distal arms and legs acute Elevated immunoglobulin A ac [place] Multiple hypopigmented skin lesions on both forearms acute 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 acute [facility] Work Phone: evaluation note* Diagnosis Advanced hepatic fibrosis- Primary [facility] Diagnosis Onset Date Resolution Status Elevated immunoglobulin A ac [place] Multiple hypopigmented skin lesions on both forearms acute 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 acute [facility] Work Phone: evaluation note* Diagnosis Onset Date Resolution Status Elevated immunoglobulin A ac [place] Multiple hypopigmented skin lesions on both forearms acute 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 Work Phone: evaluation note* Diagnosis Vascular insufficiency- Primary Unspecified circulatory system disorder Dizziness Dizziness and giddiness Near syncope Supraventricular tachycardia Other specified cardiac dysrhythmias documented in this [facility] instructions No data available for this section [facility] Discharge instructions Additional Instructions -Activity: Ambulate as tolerated. No driving until cleared by physician, may ride in car. -Diet: Regular diet. You will have Outpatient Physical Therapy at [facility] (Address: [address] [place] [address] Dr. Michelle, [place]/ ext. 2965). The order for this has already been sent to them, and they will contact you directly to schedule your evaluation date/time. If you do not hear from them by , please contact the directly at the phone [...] office to inform them prior to your appointment.[facility] Work Phone: InstructionsNot on filedocumented in this encounter [facility] No data available for this section [facility] Advance Directives Documents on File Type Date Recorded Patient Home Advisor Expl anation ACP-Advance Directive ACP-Power of Account Technician Advance Directive Response Recorded Date/ Time Advance Directives No March 21, 2023 7:37pm Advance Directive Response Recorded Date/ Time Advance Directives No March 21, 2023 6:37pm Summary Purpose Family History Relationship Condition Age at Onset Recorded Date/T audelia Not Specified Malignant neoplasm Unknown Relationship Condition Age at Onset Recorded Date/T audelia mother Malignant neoplasm Unknown Chief Complaint and Reason [...] neuropathy 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 Transaminitis Chief Complaint Admit Date Bilateral arm poss infection from IV kiara g use July 23, 2024 3:14pm Additional Source Comments INFORMATION SOURCE (unrecogn ized section and content) DATE CREATED AUTHOR 11/12/2020 [facility] DATE CREATED AUTHOR AUTHOR'S ORGANIZ ATION 10/27/2022 [facility] DATE CREATED AUTHOR AUTHOR'S ORGANIZ ATION 02/01/2023 [facility] DATE CREATED AUTHOR AUTHOR'S ORGANIZ ATION 05/13/2023 [facility] DATE CREATED AUTHOR AUTHOR'S ORGANIZ ATION 07/17/2023 [facility] DATE CREATED AUTHOR AUTHOR'S ORGANIZ ATION 08/04/2023 [facility] DATE CREATED AUTHOR AUTHOR'S ORGANIZ ATION 09/07/2023 [facility] DATE CREATED AUTHOR AUTHOR'S ORGANIZ ATION 12/26/2023 [facility] DATE CREATED AUTHOR AUTHOR'S ORGANIZ ATION 01/17/2024 [facility] DATE CREATED AUTHOR AUTHOR'S ORGANIZ ATION 07/05/2024 [facility] Care Teams (unrecognized sec tion and content) Team Status: Active Member Role Status Dates DRAKE Deras Primary Care Provider Active Team Status: Inactive Member Role Status Dates DRAKE Deras Primary Care Provider Active Start: July 23, 2024 End: July 23, 2024 Ella Regalado APRN Attending Provider Active S tart: July 23, 2024 End: July 23, 2024 Team Status: Active Member Role Status Dates Danuta Araujo , AMERICAN STUDIES PROFESSOR-C Primary Care Provider Active Jane Tracey MD Attending Provider Active Keshav Arrington , DO Referring Provider Active Team Status: Inactive Member Role Status Dates Danuta Araujo , AMERICAN STUDIES PROFESSOR-C Primary Care Provider Active Jane Tracey MD Attending Provider Active Team Status: Inactive Member Role Status Dates Danuta Araujo , AMERICAN STUDIES PROFESSOR-C Primary Care Provider Active Bernard Peterson , DO Emergency Provider Active Parveen Keller MD Admit Provider Active Chele Gamino , DO Other Provider Active Brianne Umanzor MD Attending Provider Active Marc Giron MD Other Provider Active Team Status: Active Member Role Status Dates Danuta Araujo , AMERICAN STUDIES PROFESSOR-C Primary Care Provider Active Marc Giron MD Admit Provider, Attending Provider A ctive Team Status: Active Member Role Status Dates Danuta Araujo , AMERICAN STUDIES PROFESSOR-C Primary Care Provider Active Bernard Peterson , DO Emergency Provider Active Parveen Keller MD Admit Provider, Attending Provide r Active Team Status: Inactive Member Role Status Dates Danuta Araujo , AMERICAN STUDIES PROFESSOR-C Primary Care Provider Active Marc Giron MD Admit Provider, Attending Provider A ctive Susanna Linn Other Provider Active Loli Cheema , DO Other Provider Active David Chowdary MD Other Provider Active Keshav Arrington , DO Other Provider Active Chetna Schwarz , ANP-BC Other Provider Active Chele Gamino , DO Other Provider Active Mandy Coker APRN Other Provider Active Jes Akhtar AMERICAN STUDIES PROFESSOR-C Other Provider Active Cris Goodman APRN-PROFESSOR SCULPTURE-C Other Provider Active Financial Reporting Advisor Relationship Specialty Start Date End Date Irvin Cervantes MD [address] [place] [address] Referring Family Medicine 03/15/23 Financial Reporting Advisor Relationship Specialty Start Date End Date Irvin Cervantes MD [address] [place] [address] Referring Family Medicine 03/15/23 Cris Goodman [address] [address] Referring 05/02/23 Financial Reporting Advisor Relationship Specialty Start Date End Date Irvin Cervantes MD [address] [place] [address] Referring Family Medicine 03/15/23 Cris Goodman [address] [facility] [address] [place] [address] Referring 05/02/23 Team Status: Active Member Role Status Dates Danuta Araujo NP-Mikel Primary Care Provider Active Start: November 13, [...] December 11, 2023 End: December 11, 2023 Financial Reporting Advisor Relationship Specialty Start Date End Date Nicole Soares MD [address] [place] [address] PCP - General Family Medicine 08/07/16 Source Comments (unrecognize d section and content) In the event this informatio n is protected by the Federal Confidentiality of Alcohol and Drug Abuse Patient Records regulations: The Federal rules restrict any use of the information to criminally investigate or prosecute any alcohol or drug abuse patient.[facility] the event this information is protected by the Federal Confidentiality of Alcohol and Drug Abuse Patient Records regulations: The Federal rules restrict any use of the information to criminally investigate or prosecute any alcohol or drug abuse patient.[facility] the event this information is protected by the Federal Confidentiality of Alcohol and Drug Abuse Patient Records regulations: The Federal rules restrict any use of the information to criminally investigate or prosecute any alcohol or drug abuse patient.[facility] the event this information is protected by the Federal Confidentiality of Alcohol and Drug Abuse Patient Records regulations: The Federal rules restrict any use of the information to criminally investigate or prosecute any alcohol or drug abuse patient.[facility] Reason for Visit (unrecogniz ed section and content) Reason Comments Appointment Reason Comments Consult My hands and my feet feel like rocks Stiff Especially feetFeels like standing on hot coals Like feet are on fire Sometimes shooting pains Specialty Diagnoses / Procedures Referred By Chris t Referred To Contact Neurology Diagnoses Neuropathy Procedures CONSULT TO NEUROLOGY OFFICE/OUTPATIENT [facility] 60-74 MINUTES Jeannie Jarvis APRN.EMISSIONS TECHNICIAN [address] [place] [address] Referral ID Status Reason Start Date Expiration Date V isits Requested Visits Authorized [id number] Closed PCP Requested Referral 04/12/2023 04/11/2024 1 1 Reason Comments advanced hepatic fibrosis Reason Comments Edema Leg Swelling Per patient she noti vanda white scattered spots to bilateral lower extremities. Recent biopsy to left forearm. Complains about polyneuropathy. Specialty Diagnoses / Procedures Referred By Chris limon Referred To Contact Vascular Surgery Diagnoses Vascular insufficiency Danuta Araujo APRN-EMISSIONS TECHNICIAN [address] [place] [address] Maddie Lopez MD [address] [place] [address] Referral ID Status Reason Start Date Expiration Date Visits Requested Visits Authorized [id number] Pending Review Specialty Services Required 3 06/13/2024 1 1 Goals (unrecognized section and content) Goals may [...] BE BASED ON THE PRIMARY CLINICAL RECORDS. [employer] provides no warranty or guarantee of the accuracy or completeness of information in this document.
--- NOTE | 2025-01-31 11:08 | PC.NURSE ---
pt reports pain inside and outside of vag area. pt reports seeing blood when wiping, pt does not wear underwear. pt has changed clothes but has not showered.
[2025-01-31 11:10] VITALS: O2SAT 100
[2025-01-31 11:11] LABS: Hematocrit 40.3 % (36.0-48.0); Hemoglobin 14.2 g/dL (12.0-16.0); Immature Granulocytes Abs Auto 0.09 10^3/uL (0.00-0.03); Immature Granulocytes Pct Auto 0.6 % (0.0-0.5); Lymphocytes Absolute Auto 0.7 10^3/uL (1.2-3.8); Mean Corpuscular HGB Conc 35.2 g/dL (29.9-35.2); Mean Corpuscular Hemoglobin 31.1 pg (26.7-34.0); Mean Corpuscular Volume 88.4 fL (81.0-99.0); Platelet Count 294 10^3/uL (150-450); Red Blood Count 4.56 10^6/uL (4.20-5.40); White Blood Count 15.3 10^3/uL (4.0-11.0)
[2025-01-31 11:24] LABS: Alanine Aminotransferase 29 U/L (14-59); Albumin Globulin Ratio 1.0; Albumin Level 4.0 g/dL (3.4-5.0); Alkaline Phosphatase 80 U/L (46-116); Anion Gap 18.5; Aspartate Amino Transferase 23 U/L (15-37); Blood Urea Nitrogen 14.0 mg/dL (7.0-18.0); Calcium 9.1 mg/dL (8.5-10.1); Carbon Dioxide 23.5 mmol/L (21.0-32.0); Chloride 98 mmol/L (98-107); Estimated GFR (African America >60 (>=60 mL/min/1.73m^2); Estimated GFR (Non-African Ame >60 (>=60 mL/min/1.73m^2); Globulin 4.0 g/dL; Glucose 136 mg/dL (74-106); Potassium 3.0 mmol/L (3.5-5.1); Sodium 137 mmol/L (136-145); Total Protein 8.0 g/dL (6.4-8.2)
[2025-01-31 11:26] LABS: Lactate/Lactic Acid 1.9 mmol/L (0.4-2.0)
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
[2025-01-31 14:07] LABS: Glucose Urine UA NEGATIVE (NEGATIVE)
[2025-01-31 14:21] LABS: Cast Seen? SEEN #/LPF (NONE SEEN); Crystals Seen? None Seen #/HPF (None Seen)
[2025-01-31 14:22] LABS: Urine Culture Indicated YES-FRMC
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
[2025-01-31 15:10] VITALS: BP 125/82; PULSE 106; TEMP 37.6; O2SAT 99
[2025-01-31] MEDS: LIDOCAINE 2% JELLY 10 ML UR (17:31)
[2025-01-31] MEDS: KETOROLAC TROMETHAMINE 30 MG/ML VIAL IM (17:31)
[2025-01-31] MEDS: BENZOCAINE/MENTHOL 85 GRAM SPRAY BOTTLE 1 APPLIC TOPICAL (17:32)
[2025-01-31 18:30] VITALS: PULSE 88
[2025-01-31] MEDS: POTASSIUM BICARBONATE/CIT 25 MEQ TABLET EFF 50 MEQ PO (18:30)
[2025-01-31 19:00] VITALS: BP 132/87; PULSE 82; O2SAT 100
== END 2025-01-31 19:00 | disposition home or self-care (01) ==
PROVIDERS: Emergency Provider Emergency Medicine; PCP Nurse Practitioner Family
DX: S31.41XA Laceration without foreign body of vagina and vulva, initial encounter (principal); T74.21XA Adult sexual abuse, confirmed, initial encounter; N39.0 Urinary tract infection, site not specified; E87.6 Hypokalemia; F19.10 Other psychoactive substance abuse, uncomplicated
CPT/HCPCS: 36415; 70450; 70486; 80053; 81001; 83605; 84703; 85025; 87086; 87088; 99285; J1885

== ENCOUNTER 2025-02-02 22:10 | Emergency (ER) | payer SELFPAY ==
--- OUTSIDE RECORDS SUMMARY | 2023-05-13 10:00 | XMS_ITS | Continuity of Care Document ---
Author Organization [facility] Address [address] [place] [address] Phone Care Team Providers Care Supply Cataloguer Name Role Phone Scottie MARILINRon Unavailable Unavailable [...] by oral route 2 times every day 20 MG - Active Kapspargo Sprinkle 25 mg capsule,extended [...] Eval Estab Patient 2020 Intraoral-complete Series (bw) Comp Oral Eval New/estab Patient 2016 High Risk Oral Hygiene Instruction Advance Directives Directive Yes / No Effective Date File Name No Information Encounters Encounter Description Practice Location Reason(s) For Visit Diagnoses Date Provider Providers Copied on Encounter [facility], [address] [place] [address], [id number], [place] tel:[phone] Dental Clinic dn (chief complaint) Encounter for screening for dental disorders 3 Scottie DMD Ron. [address] [place], [place], [id number], [place]. tel:[phone] [address] [place] [address], [address] [place], [place], [id number], [place] tel:[phone] Dental Clinic prophy (chief complaint) Encounter for screening for dental disorders 1 Jose Maria FINE Johnny. [address] [place], [address], [place]. tel:[phone] 23 [facility], [address] [place] [address], [id number], [place] tel:[phone] Dental Clinic Dental new (chief complaint) Encounter for screening for dental disorders 7 Eric DMD [place]. [address] [place], [address], [place]. tel:[phone] Family History Family Member Type Diagnosis Age At Onset Father Problem (finding) Alive and well Mother Problem (finding) Alive and well Payers Payer name Insurance type Covered libertarian ID Authoriza ticali(s) D [employer] [facility] [id number] D Medicaid [facility] [id number] Social History Type Description Quantity Date Captured [...] Oc due Goal RLP. Due on due Goal PAP. Due on due Goal PRAPARE [...]
[2025-02-02 22:15] VITALS: BP 135/90; PULSE 105; TEMP 36.5; O2SAT 100
--- OUTSIDE RECORDS SUMMARY | 2025-02-02 22:19 | XMS_ITS | Encounter Summary ---
Author Organization [facility] Address [address] [place] [address] Care Team Providers Care Glass Toughening Operator Name Role Phone Irvin Cervantes MD Unavailable [phone] Cris Goodman APRN Unavailable [phone] Danuta Longoria [facility] Primary Care Provider + Source Comments In the event this information is protected by the Federal Confidentiality of Alcohol and Drug AbusePatient Records regulations: The Federal rules restrict any use of the information to criminally investigate or prosecute any alcohol or drug abuse patient.[facility] Encounter Details Date Type Department Care Team (Late st Contact Info) Description 05/24/2023 Patient Msg Neurology [address] [place] [address] Provider, Ccf from Dr Orozco office Social History Tobacco Use Types Packs/Day Years Used Date Smoking Tobacco: Every Day Smokeless Tobacco: Never Comments:Patient vapes Alcohol Use Standard Drinks/Week Comments Not Currently 0 (1 standard drink = 0.6 oz pur e alcohol) Area Deprivation Index Answer Date Miguel rded National Score (1-100), lower number is lower ri sk 64 01/29/2023 State Score (1-10), lower number is lower risk 4 01/29/2023 Data from: https://www.neighborhoodatlas.[facility]/. Last address used for calculation [id number] 01/29/2023 Comments No Sex and Gender Information Value Date Recorded Sex Assigned at Not on file Legal Sex Female 8:08 PM EDT Gender Identity Female 05/14/2023 1:13 PM EDT Sexual Orientation Straight 05/14/2023 1: 13 PM EDT documented as of this encounter Plan of Treatment Not on file documented as of this encounter Visit Diagnoses Not on filedocumented in this encounter Care Teams Glass Toughening Operator Relationship Specialty Start Date End Date Danuta Longoria CNP [address] [place], [place] [phone] PCP - General Internal Medicine 08/08/23 Irvin Cervantes MD [address] [place] [address] Referring Family Medicine 03/15/23 Cris Goodman APRN [address] [place] [id number] Referring 05/02/23 documented as of this encounter
--- OUTSIDE RECORDS SUMMARY | 2025-02-02 22:19 | XMS_ITS | Encounter Summary ---
Author Organization [facility] Address [address] [place] [address] Care Team Providers Care Apparel Rental Clerk Name Role Phone Irvin Cervantes MD Unavailable [phone] Cris Goodman APRN Unavailable [phone] Danuta Longoria [facility] Primary Care Provider + Source Comments In the event this information is protected by the Federal Confidentiality of Alcohol and Drug AbusePatient Records regulations: The Federal rules restrict any use of the information to criminally investigate or prosecute any alcohol or drug abuse patient.[facility] Encounter Details Date Type Department Care Team (Late st Contact Info) Description 05/24/2023 Patient Msg Neurology [address] [place] [address] Arsh Orozco MD [address] [place] [address] Follow up Social History Tobacco Use Types Packs/Day Years [...] is lower risk 4 01/29/2023 Data from: https://www.neighborhoodatlas.medicine.[facility].edu/. Last address used for calculation [address] 01/29/2023 Comments No Sex and Gender [...] on filedocumented in this encounter Care Teams Apparel Rental Clerk Relationship Specialty Start Date End Date Danuta Longoria CNP [address] [place], [place] [phone] PCP - General Internal Medicine 08/08/23 Irvin Cervantes MD [address] [place], [place] [phone] Referring Family Medicine 03/15/23 Cris Goodman APRN [address] [phone] Referring 05/02/23 documented as of this encounter
--- OUTSIDE RECORDS SUMMARY | 2025-02-02 22:19 | XMS_ITS | Encounter Summary ---
Author Organization [facility] Address [address] [place] [address] Care Team Providers Care Retention Representative Name Role Phone Irvin Cervantes MD Unavailable [phone] Cris Goodman APRN Unavailable [phone] Danuta Longoria [employer] [employer] [facility] Primary Care Provider + Source Comments In the event this information is protected by the Federal Confidentiality of Alcohol and Drug AbusePatient Records regulations: The Federal rules restrict any use of the information to criminally investigate or prosecute any alcohol or drug abuse patient.[facility] Encounter Details Date Type Department Care Team (Late st Contact Info) Description 07/23/2023 Patient Msg Angio [address] [place] [address] Provider, Cceulalio pre-procedure instructions 07/30 Social History Tobacco Use Types Packs/Day Years [...] is lower risk 4 01/29/2023 Data from: https://www.neighborhoodatlas.[facility]/. Last address used for calculation [address] 01/29/2023 Comments No Sex and Gender Information Value Date Recorded Sex Assigned at Not on file Legal Sex Female 8:08 PM EDT Gender Identity Female 05/14/2023 1:13 PM EDT Sexual Orientation Straight 05/14/2023 1 :13 PM EDT documented as of this encounter Plan of Treatment Not on file documented as of this encounter Visit Diagnoses Not on filedocumented in this encounter Care Teams Retention Representative Relationship Specialty Start Date End Date Danuta Longoria CNP [address] [place], [place] [phone] PCP - General Internal Medicine 08/08/23 Irvin Cervantes MD [address] [place], [place] [address] [phone] Referring Family Medicine 03/15/23 Cris Goodman APRN [address] [place] [phone] Referring 05/02/23 documented as of this encounter
--- OUTSIDE RECORDS SUMMARY | 2025-02-02 22:19 | XMS_ITS | Clinical Summary ---
Author Organization [employer] Address [id number] [address] [place] [address] Care Team Providers Care Manager Business Planning Name Role Phone Tea Soares MD Primary Care Provider [phone] Allergies Active Allergy Reactions Criticality Noted Date Comments Penicillins Hives 08/03/2016 Reaction as infant Medications VIT #76/IRON,CARB/F A (PNV 29-1 ORAL) Take by mouth. Active buprenorphine (SUBUTEX) 8 mg tablet, sublingual Place 8 mg under the tongue daily. Active gabapentin (NEURONTIN) 300 mg capsule Take 1 capsule (300 mg total) by mouth 2 (two) times daily at 0800 and 1500. Take 2 capsules by mouth twice a day. Active folic acid (FOLVITE) 1 mg tablet Take 2 tablets (2,000 mcg total) by mouth in the morning. 04/02/2023 Active Active Problems No known active problems Family History Medical History Relation Name Comments Alcohol abuse Father Drug abuse Father Relation Name Status Comments Father Social History Tobacco Use Types Packs/Day Years Used Date Smoking Tobacco: Every Day Cigarettes 0.5 5 Tobacco Cessation:Ready to Q uit: Not Asked; Counseling Given: Not Answered Alcohol Use Standard Drinks/Week Comments No 0 (1 standard drink = 0.6 oz pur e alcohol) Childcare Answer Date Recorded Childcare Unknown 12/31/2018 Employment Answer Date Recorded Employment Unknown 12/31/2018 Hunger Screening Answer Date Recorded Within the past 12 months we worried whether our food would run out before we got money to buy more. Never True 08/01/2023 Within the past 12 months th e food we bought just didn't last and we didn't have money to get more. Never True 08/01/2023 Purpose - Life Answer Date Recorded Purpose and direction in life Unknown Comments No Sex and Gender Information Value Date Recorded Sex Assigned at Not on file Legal Sex Female 11:45 AM EST Gender Identity Not on file Sexual Orientation Not on file Last Filed Vital Signs Vital Sign Reading Time Taken Comments Blood Pressure 122/74 08/01/2023 3:00 PM EST Pulse 88 08/01/2023 3:00 PM EST Temperature - - Respiratory Rate 18 08/01/2023 2:59 PM EST Oxygen Saturation - - Inhaled Oxygen Concentration - - Weight 62.1 kg (136 lb 12.8 oz) 08/01/2023 2:59 PM EST Height 160 cm (5' 3 ) 08/01/2023 2:59 PM EST Body Mass Index 24.23 08/01/2023 2:59 PM EST Plan of Treatment Health Maintenance Due Date Last Done Comments Depression Screening 2007 Pap Smear 10/24/2016 Adult BMI Screening 08/01/2024 08/01/2023 Tobacco Screening 08/01/2024 08/01/2023 Influenza Vaccine 03/22/2025 05/13/2014 DTaP,Tdap and Td Vaccines (8 - Td or Tdap) 06/05/2032 06/05/2022, 06/15/2014, 04/04/2001, Additional history exists Medical Devices [place] [address] [employer] Care Teams Manager Business Planning Relationship Specialty Start Date End Date Tea Soares MD PCP - General Family Medicine 08/07/16
--- OUTSIDE RECORDS SUMMARY | 2025-02-02 22:19 | XMS_ITS | Clinical Summary ---
Author Organization [facility] Address [address] [place] [address] Care Team Providers Care Scaffold Setter Name Role Phone Danuta Longoria ANDREA Primary Care Provider [phone] Allergies Active Allergy Reactions Criticality Noted Date Comments Penicillins 03/24/2022 Medications DULoxetine (Cymbalta) [address] capsule Take 60 mg by mouth at bedtime. 3 Active gabapentin (Neurontin) 300 mg capsule TAKE 1 CAPSULE BY MOUTH TWICE A DAY FOR 30 DAYS 3 Active magnesium oxide 200 mg magnesium tablet,chewable Chew 1 tablet in the morning. 3 Active naloxone (Narcan) 4 mg/0.1 mL nasal spray SPRAY 1 SPRAY IN ONE NOSTRIL DIRECTED ALTERNATE NOSTRILS EVERY 2-3 MINUTES NEEDED FOR OVERDOSE 3 Active thiamine (Vitamin B-1) 100 mg tablet Take 100 mg by mouth. 3 Active traZODone (Desyrel) 50 mg tablet TAKE 1 TABLET BY MOUTH EVERY DAY AT BEDTIME NEEDED FOR 30 DAYS 3 Active metoprolol succinate XL (Toprol-XL) 25 mg 24 hr tabletIndicatio ns:SVT (supraventricul ar tachycardia) Take 1 tablet (25 mg) by mouth in the morning. Do not crush or chew. 30 tablet 11 3 Active folic acid (Folvite) 1 mg tablet Take 2,000 mcg by mouth in the morning. 3 Active Active Problems Problem Noted Date Diagnosed Date Elevated liver enzymes 05/08/2023 3 Nonalcoholic fatty liver 05/08/2023 023 Tachycardia 10/24/2021 SVT (supraventricular tachycardia) Assessment & Plan (05/09/2023 2:13 PM EDT): -We will start Toprol-XL 25 mg given her symptoms -Instructed to increase magnesium supplement as she chronically has electrolyte abnormalities -She has stopped drinking and plans to continue sobriety -30-day event monitor as her last monitor was not received by [employer] Family History Medical History Relation Name Comments Coronary artery disease Maternal Grandmother Peripheral vascular disease Maternal Grandmother Atrial fibrillation Paternal Grandmother Hypertension Paternal Grandmother Relation Name Status Comments Maternal Grandmother Paternal Grandmother Social History Tobacco Use Types Packs/Day Years Used Date Smoking Tobacco: Former Cigarettes Smokeless Tobacco: Never Alcohol Use Standard Drinks/Week Comments Not Currently 0 (1 standard drink = 0.6 oz pur e alcohol) quit 04/03/2023 [place] Safety & Environment Answer Date Rec orded Fear of Current or Ex-Partner Not on file Emotionally Abused Not on file 09/12/2023 Physically Abused Not on file 09/12/2023 Sexually Abused Not on file 09/12/2023 Physically or Sexually Abused Not on file Comments Unknown Sex and Gender Information Value Date Recorded Sex Assigned at Not on file Legal Sex Female 12:44 AM EDT Gender Identity Not on file Sexual Orientation Not on file Last Filed Vital Signs Vital Sign Reading Time Taken Comments Blood Pressure 122/83 07/09/2023 2:10 PM EST Pulse 125 07/09/2023 2:10 PM EST Temperature - - Respiratory Rate - - Oxygen Saturation 98% 07/09/2023 2:10 PM EST Inhaled Oxygen Concentration - - Weight 61.2 kg (135 lb) 07/09/2023 2:10 PM EST Height 160 cm (5' 3 ) 07/09/2023 2:10 PM EST Body Mass Index 23.91 07/09/2023 2:10 PM EST Plan of Treatment Health Maintenance Due Date Last Done Comments Depression Screening 2007 Varicella Vaccines (1 of 2 - 13+ 2-dose series) 10/24/2008 Pneumococcal Vaccine: Pediatrics (0 to 5 Years) and At-Risk Patients (6 to 64 Years) (1 of 2 - PCV) 10/24/2014 Pap Smear 10/24/2016 Adult Tetanus 10/24/2017 06/15/2014 COVID-19 Vaccine ( season) 2024 Influenza Vaccine (#1) 2025 05/13/2014 Zoster Vaccines (1 of 2) 10/24/2045 HIB Vaccines Completed 01/27/1997, 04/21, 03/02/1996, Additional history exists IPV Vaccines Completed 04/04/2001, 03/22, 05/08/1996, Additional history exists HPV Vaccines Aged Out No longer eligi ble based on patient's age to complete this topic Meningococcal B Vaccine Aged Out No l onger eligible based on patient's age to complete this topic Meningococcal Vaccine Aged Out No monty jerad eligible based on patient's age to complete this topic Rotavirus Vaccines Aged Out No longer eligible based on patient's age to complete this topic Insurance Care Teams Scaffold Setter Relationship Specialty Start Date End Date Danuta Longoria CNP [address] [place] [address] [place] [address] PCP - General Family Medicine 05/08/23
--- OUTSIDE RECORDS SUMMARY | 2025-02-02 22:19 | XMS_ITS | Clinical Summary ---
Author Organization [facility] Address [address] [place] [address] Care Team Providers Care Desk Manager Name Role Phone Haven Mayo APRN - ANDREA Primary Care Provider [phone] Social History Tobacco Use Types Packs/Day Years Used Date Smoking Tobacco: Never Assessed Comments Unknown Sex and Gender Information Value Date Recorded Sex Assigned at Not on file Legal Sex Female 3:52 PM EDT Gender Identity Not on file Sexual Orientation Not on file Plan of Treatment Not on file Insurance [employer] Care Teams Desk Manager Relationship Specialty Start Date End Date Haven Mayo APRN - HAND WORKER [address] [place] [id number] PCP - General Specialist 01/26/19
--- OUTSIDE RECORDS SUMMARY | 2025-02-02 22:19 | XMS_ITS | Encounter Summary ---
Author Organization [facility] Address [address] [place] [address] Care Team Providers Care Ocean Lifeguard Specialist Name Role Phone Irvin Cervantes MD Unavailable [phone] Cris Goodman APRN Unavailable [phone] Danuta Longoria [facility] Primary Care Provider + Source Comments In the event this information is protected by the Federal Confidentiality of Alcohol and Drug AbusePatient Records regulations: The Federal rules restrict any use of the information to criminally investigate or prosecute any alcohol or drug abuse patient.[facility] Encounter Details Date Type Department Care Team (Late st Contact Info) Description 05/13/2023 Patient Msg Gastroenterology [address] [id number] Provider, Ccf Appointment reminder Social History Tobacco Use Types Packs/Day Years Used Date Smoking Tobacco: Former Cigarettes Comments:Patient vapes Alcohol Use Standard Drinks/Week Comments Not Currently 0 (1 standard drink = 0.6 oz pur e alcohol) Area Deprivation Index Answer Date Miguel rded National Score (1-100), lower number is lower ri sk 64 01/29/2023 State Score (1-10), lower number is lower risk 4 01/29/2023 Data from: https://www.neighborhoodatlas.[facility]/. Last address used for calculation [address] 01/29/2023 Comments No Sex and [...] on filedocumented in this encounter Care Teams Ocean Lifeguard Specialist Relationship Specialty Start Date End Date Danuta Longoria CNP [address] [place], [place] [phone] PCP - General Internal Medicine 08/08/23 Irvin Cervantes MD [address] [place], [place] [phone] Referring Family Medicine 03/15/23 Cris Goodman APRN [address] [place] [phone] Referring 05/02/23 documented as of this encounter
--- OUTSIDE RECORDS SUMMARY | 2025-02-02 22:19 | XMS_ITS | Encounter Summary ---
Author Organization [facility] Address [address] [place] [address] Care Team Providers Care Die Repairer Forging Name Role Phone Irvin Cervantes MD Unavailable [phone] Cris Goodman APRN Unavailable [phone] Danuta Longoria [facility] Primary Care Provider + Source Comments In the event this information is protected by the Federal Confidentiality of Alcohol and Drug AbusePatient Records regulations: The Federal rules restrict any use of the information to criminally investigate or prosecute any alcohol or drug abuse patient.[facility] Encounter Details Date Type Department Care Team (Late st Contact Info) Description 07/12/2023 Patient Msg Urology [address] [place], [place] [phone] Provider, Ccf Appointment Scheduled Social History Tobacco Use Types Packs/Day Years [...] is lower risk 4 01/29/2023 Data from: https://www.neighborhoodatlas.[facility]/. Last address used for calculation [address] 01/29/2023 Comments No Sex and [...] on filedocumented in this encounter Care Teams Die Repairer Forging Relationship Specialty Start Date End Date Danuta Longoria CNP [address] [place], [place] [phone] PCP - General Internal Medicine 08/08/23 Irvin Cervantes MD [address] [place], [place] [phone] Referring Family Medicine 03/15/23 Cris Goodman APRN [address] [place] [phone] Referring 05/02/23 documented as of this encounter
--- OUTSIDE RECORDS SUMMARY | 2025-02-02 22:20 | XMS_ITS | Clinical Summary ---
Author Organization [facility] Address [address] [place], [place] [phone] Care Team Providers Care Studio Data Analyst Name Role Phone Irvin Cervantes MD Unavailable [phone] Cris Goodman APRN Unavailable [phone] Danuta Longoria CNP Primary Care Provider + Allergies Active Allergy Reactions Criticality Noted Date Comments Penicillins Rash 01/28/2023 Medications folic acid 1 mg tablet TAKE 1 TABLET EVERY MORNING FOR 30 DAYS 3 Active magnesium oxide 200 mg magnesium chew OTC magnesium 200 mg BID Active potassium chloride 20 mEq TbER TAKE 1 TABLET WITH FOOD ORALLY TWICE A DAY 30 DAYS 3 Active pregabalin (LYRICA) 75 mg capsule Take 75 mg by mouth. 3 Active thiamine (VITAMIN B1) 100 mg tablet Take 100 mg by mouth every morning. 3 Active gabapentin (NEURONTIN) 300 mg capsule Take 300 mg by mouth two times a day. 3 Active metoprolol succinate ER (TOPROL XL) 25 mg 24 hr tablet Take 25 mg by mouth once daily. 3 Active ibuprofen (MOTRIN) 400 mg tablet Take 1 tablet by mouth three times a day. 3 Active DULoxetine (CYMBALTA) 60 mg capsule Take 60 mg by mouth once daily. 3 Active ondansetron orally disintegrating (ZOFRAN ODT) 4 mg disintegrating tablet DISSOLVE 1 TABLET ON THE TONGUE EVERY 6 HOURS NEEDED FOR NAUSEA/VOMITI NG 3 Active VITAMIN B-6 50 mg tablet Take 1 tablet by mouth every afternoon. 3 Active sertraline (ZOLOFT) 50 mg tablet 4 Active etonogestrel (NEXPLANON) subdermal implant 68 mg Nexplanon Active Active Problems Problem Noted Date Diagnosed Date Long-term use of high-risk medication 08/08/2023 Weakness of both hands 08/08/2023 Elevated LFTs 08/08/2023 Chronic pain of both feet 08/08/2023 Numbness and tingling of both feet 08/08/2023 Numbness and tingling in both hands 08/08/2023 Hair loss 08/08/2023 Rash and nonspecific skin eruption 08/08/2023 PAT positive 08/08/2023 Social History Tobacco Use Types Packs/Day Years Used Date Smoking Tobacco: Every Day Smokeless Tobacco: Never Tobacco Cessation:Ready to Q uit: Not Asked; Counseling Given: Yes Comments:Patient vapes Alcohol Use Standard Drinks/Week Comments Not Currently 0 (1 standard drink = 0.6 oz pur e alcohol) PHQ-2 Answer Date Recorded PHQ-2 score 2 08/06/2023 Area Deprivation Index Answer Date Miguel rded National Score (1-100), lower number is lower ri sk 61 08/08/2023 State Score (1-10), lower number is lower risk 4 08/08/2023 Data from: https://www.neighborhoodatlas.medicine.[facility].edu/. Last address used for calculation [address] 08/08/2023 Comments No Sex and Gender Information Value Date Recorded Sex Assigned at Not on file Legal Sex Female 8:08 PM EDT Gender Identity Female 05/14/2023 1:13 PM EDT Sexual Orientation Straight 05/14/2023 1: 13 PM EDT Last Filed Vital Signs Vital Sign Reading Time Taken Comments Blood Pressure 103/57 09/05/2023 7:50 PM EST Pulse 82 09/05/2023 7:50 PM EST Temperature 36.8 C (98.3 F) 09/05/2023 2:10 PM EST Respiratory Rate 12 09/05/2023 6:50 PM EST Oxygen Saturation 99% 09/05/2023 7:50 PM EST Inhaled Oxygen Concentration - - Weight 66 kg (145 lb 8.1 oz) 08/08/2023 11:02 AM EST Height 162.6 cm (5' 4 ) 08/08/2023 11:02 AM EST Body Mass Index 24.98 08/08/2023 11:02 AM EST Plan of Treatment Health Maintenance Due Date Last Done Comments Anxiety Screening 10/24/2013 Depression Screening 10/24/2013 HIV Screening 10/24/2013 Pneumococcal Vaccine (1 of 2 - PCV) 10/24/2014 Cervical Cancer Screening 10/24/2016 Covid-19 Vaccine (1 - 2023-2 5 season) 2024 Influenza Vaccine (#1) 2025 05/13/2014 DTaP,Tdap,Td Vaccine (8 - Td or Tdap) 06/05/2032 06/05/2022, 06/15/2014, 04/04/2001, Additional history exists Hepatitis C Screening Completed 04/12/2023 , 04/12/2023, 01/26/2019 Procedures Procedure Name Priority Date/Time Associated Diagnosis Comments HEPATITIS C ANTIBODY IA WITH CONFIRMATION Routine 04/12/2023 2:53 PM EDT Elevated liver enzymes from Last 3 Months or Most Recently Relevant to Health Maintenance Results * HEPATITIS C ANTIBODY IA WITH CONFIRMATION (04/12/2023 2:53 PM EDT) Hep C Antibody IA Negative Negative 04/12/2023 10:02 PM EDT [facility] Comment:The result suggests no evidence of active infection with Hepatitis C virus. Should recent infection be suspected, repeat testing may be considered 4-6 weeks after this draw. Blood BLOOD SPECIMEN / Unknown Venipuncture / Unknown 04/12/2023 2:53 PM EDT 04/12/2023 2:53 PM EDT us Jeannie Guzman APRN.[employer] Fi nal Result [facility] [address] [place] [address], from Last 3 Months or Most Recently Relevant to Health Maintenance Insurance [facility] MEDICA[facility] Care Teams Studio Data Analyst Relationship Specialty Start Date End Date Danuta Longoria CNP [address] [place], [place] [phone] - General Internal Medicine 08/08/23 Irvin Cervantes MD [address] [place], [place] [phone] Referring Family Medicine 03/15/23 Cris Goodman APRN [address] [facility] [address] [place] [phone] Referring 05/02/23
--- OUTSIDE RECORDS SUMMARY | 2025-02-02 22:20 | XMS_ITS | CCD ---
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 Name Role Phone RenayAkinn R Primary Care Provider [phone] INOCENCIO BENDER Referring Unavailable RENAY, HAVEN R [...] Care Unavailable GRACIA ., KATINA Admitting Unavailable ZIPERICO, DR DAVID Fallon Consulting Unavailable GRACIA ., KATINA Attending Unavailable SHIV .PAUL Consulting Unavailabl e GRACIA ., KATINA Consulting Unavailable SHENG [...] SUDHA ., DR DUCKWORTH Consulting Unavailable Swati, DEBORAH-C Danuta Diana Primary Care Provider DO Bernard Peterson Emergency Provider MD Parveen Riley Admit Provider MD Parveen Keller Attending Provider HAVEN NIÑO CNP Primary Care Physician [phone] DO Chele Gamino Other Provider MD Brianne mUanzor Attending Provider MD Marc Giron Other Provider MD Marc Giron Admit Provider MD Marc Giron Attending Provider Susanna Linn Other Provider Unavailable DO Loli Cheema Other Provider MD David Chowdary Other Provider DO Keshav Arrington Other Provider Chong ANP- Chetna Other Provider HODAN Coker Other Provider DRAKE Akhtar Other Provider [phone] HODAN Goodman-CERTIFIED INCOME TAX PREPARER-C Cris Conklin Other Provider Irvin Cervantes MD Unavailable Neelima GRECO, Zane Bal Attending Unavailable Cris Goodman Unavailable DEBORAH Araujo-Mikel Danuta Diana Primary Care Provider DO Bernard Peterson Emergency Provider MD Parveen Riley Admit Provider DO Chele Gamino Other Provider MD Brianne Umanzor Attending Provider MD Marc Giron Other Provider MD Marc Giron Admit Provider MD Marc Giron Attending Provider [phone] JuankatharineBerta fuentesine Other Provider Unavailable DO Loli Cheema Other Provider MD David Chowdary Other Provider [phone] DO Keshav Arrington Other Provider Chong ANP- Chetna Other Provider HODAN Coker Other Provider DRAKE Akhtar S Other Provider HODAN Goodman-CERTIFIED INCOME TAX PREPARER-C Cris Conklin Other Provider MD Jane Tracey Attending Provider MD Jane Tracey Attending Provider [phone] DRAKE Araujo Primary Care Provider [phone] MD Jane Tracey Attending Provider DO Keshav Arrington Referring Provider [phone] NETTIE SHEA Attending Unavailable MARTHA GRAY Attending Unavailable MARTHA GRAY Attending Unavailable MADDIE LOPEZ Attending Unavailable DANUTA ARAUJO S Referring Unavailable NICOLE SOARES Primary Care Unavailable HOLMAN, AMANJIT S Admitting Unavailable HOLMAN, AMANJIT S Attending Unavailable RODDENBERRY, JEANNIE Referring Unavailable RODDENBERRY, JEANNIE Referring Unavailable RODDENBERRY, JEANNIE Attending Unavailable DANUTA ARAUJO S Primary Care Unavailable JUANIS GOVEA Referring Unavailable JOEL NOE Attending Unavailable ARSH OROZCO Attending Unavailabl e RODDENBERRY, JEANNIE Referring Unavailable RODDENBERRY, JEANNIE Attending Unavailable DRAKE Araujo Primary Care Provider [phone] MD Jane Tracey Attending Provider DO Keshav Arrington Referring Provider MD Cristóbal Casillas Attending Provider Cristóbal Casillas Admitting Unavailable Cristóbal Casillas Attending Unavailable Danuta Araujo Diana Primary Care Unavailable Keshav Arrington Referring Unavailab Danuta Naidu Diana Primary Care Unavailable Jane Tracey Admitting UnavailJane Hu Attending UnavailChele Gonzalez Consulting Unavailable Brianne Umanzor Attending Unavailable Danuta Araujo Diana Primary Care Unavailable Parveen Keller Admitting Unavailable Marc Giron Consulting Unavailable Marc Giron Admitting Unavailable Marc Giron Attending Unavailable Susanna Linn Consulting Unavailable Swati, Danuta Diana Primary Care Unavailable Loli Cheema Consulting Unavailable David Chowdary Consulting Unavailable Keshav Arrington Consulting Unavailab Chetna Bright Consulting Unavailable Chele Gamino Consulting Unavailable Mandy Coker Consulting Unavailable Jes Akhtar Consulting Unavailable Cris Goodman Consulting Unavailable Danuta Araujo Diana Primary Care Unavailable Jane Tracey Admitting Unavailabl e Jane Tracey Attending UnavailMASSIMO Bañuelos Attending Unavailable HAVEN NIÑO CNP Primary Care Unavailable Nicole Soares MD Primary Care Provider [phone] Sarah Henao MD Attending Provider [phone] Allergies Allergy Classification Reported Allergen(s) Allergy Type Date of Onset Reaction(s) Facility (10 sources) Penicillins; Translations: [PENICILLINS] Drug allergy (disorder) 4 Rash [facility] (2 sources) Penicillin; Translations: [penicillin] Drug Allergy Eruption of skin (disorder) [facility] (5 sources) Penicillins Drug Allergy 7 Rash, Hives [facility] (1 source) Penicillins Drug allergy (disorder) 4 [facility] Repository Medications Current Medications Medication Drug Class(es) Dates Sig (Normalized) Sig (Original) acamprosate calcium 333 mg delayed release oral tablet (4 sources) Start: 11-13-2023 take 1 tablet by mouth twice daily at dinner buprenorphine 8 mg sublingual tablet (1 source) Partial Opioid Agonist take 1 tablet under the tongue once daily buprenorphine (SUBUTEX) 8 mg tablet, sublingual Place 8 mg under the tongue daily. 0 Active folic acid 1 mg oral tablet (20 sources) Start: 05-30-2023 take 2 tablets by mouth once daily Start: 05-30-2023 take 2 mg by mouth once daily Folic Acid Active 2 MG PO Daily 60 May 30, 2023 1:00am Start: 03-27-2023 End: 05-30-2023 take 1 tablet by mouth once daily in the morning Folic Acid 1 mg Tablet Discontinued 1 MG PO Every morning April 02, 2023 12:00am May 30, 2023 3:16pm Comment on above: TAKE 1 TABLET EVERY MORNING FOR 30 DAYS gabapentin 300 mg oral capsule (10 sources) Anti-epileptic Agent Start: 3 take 1 capsule by mouth twice daily Comment on above: Take 300 mg by mouth two times a day. hydrOXYzine pamoate 25 mg oral capsule (1 source) Antihistamine Start: 5 take 1 capsule by mouth twice daily as needed 24 hr metoprolol succinate 25 mg extended release oral tablet (9 sources) beta-Adrenergic Poonam Start: 3 End: 4 take 1 tablet by mouth once daily in the morning Comment on above: Take 25 mg by mouth once daily. VIT #76/IRON,CARB/FA (PNV 29-1 ORAL) (1 source) VIT #76/IRON,CARB/FA (PNV 29-1 ORAL) Take by mouth. 0 Active sertraline 100 mg oral tablet (5 sources) Serotonin Reuptake Inhibitor Start: 5 take 2 tablets by mouth once daily Start: 11-13-2023 End: 07-23-2024 take 1 tablet by mouth once daily Sertraline (Zoloft) 50 mg tablet Discontinued 50 MG PO Daily November 13, 2023 12:00am July 23, 2024 4:18pm vitamin b12 1 mg/ml injectable solution (3 sources) Vitamin B12 Start: 11-13-2023 inject 1000 ug by intramuscular injection every week Start: 11-13-2023 inject 1000 ug by in tramuscular injection every week Cyanocobalamin (Vitamin B-12) Active 1000 MCG IM every week November 13, 2023 12:00am dispense appropriate syringes and needles with B12 vitamin b6 50 mg oral tablet (14 sources) Start: 05-30-2023 End: 05-30-2023 take 1 tablet by mouth once daily Completed/Discontinued Medications Medication Drug Class(es) Dates Sig (Normalized) Sig (Original) diclofenac sodium 0.01 mg/mg topical gel (8 sources) Nonsteroidal Anti-inflammatory Drug Start: 04-02-2023 End: [...] a day. lactulose 667 mg/ml oral solution (10 sources) Osmotic Laxative Start: 03-21-2023 End: 05-30-2023 [...] BID Magnesium Oxide 200 mg magnesium tablet,chewable (2 sources) Start: 03-21-2023 End: 11-13-2023 take 1 tablet by mouth once daily in the morning Magnesium Oxide 200 mg magnesium tablet,chewable Discontinued 200 MG PO Every morning March 21, 2023 12:00am November 13, 2023 9:52am Start: 03-21-2023 End: 11-13-2023 take 1 tablet by mouth once daily in the morning Magnesium Oxide 200 mg magnesium tablet,chewable Discontinued 200 MG PO Every morning March 20, 2023 11:00pm November 13, 2023 8:52am menthol 10 mg/ml / methyl salicylate 150 mg/ml topical cream (8 sources) Start: 04-02-2023 End: 05-30-2023 Methyl Salicylate-Menthol (Thera-Gesic) 15-1 % Cream Discontinued 1 APPLIC TOPICAL Three times daily as needed for Pain 0 April 02, 2023 12:00am May 30, 2023 3:17pm potassium chloride 20 meq extended release oral tablet (13 sources) Start: 03-20-2023 End: 05-30-2023 take 1 tablet by mouth twice daily Potassium Chloride 20 mEq tablet extended release Discontinued 20 MEQ PO Twice daily March 21, 2023 12:00am May 30, 2023 3:17pm Comment on above: TAKE 1 TABLET WITH F OOD ORALLY TWICE A DAY 30 DAYS pregabalin 75 mg oral capsule (11 sources) Start: 04-02-2023 End: 05-30-2023 take 1 [...] Date Documented Date Episodic/Chronic Administrative/socia l admission (12 sources) Other reduced mobility; Translations: [Impaired mobility and activities of daily living] Onset: 03-27-2023 03-28-2023 Episodic Alcohol-related disorders (19 sources) History of alcohol abuse; Translations: [Alcohol [...] Episodic Immunizations and screening for infectious disease (17 sources) Encounter for screening for infections with a predominantly sexual mode of transmission; Translations: [Encounter for immunization] Onset: 06-07-2022 05-30-2023 Episodic Malaise and fatigue (20 sources) Weakness; Translations: [Asthenia] Onset: 10-16-2022 03-21-2023 Episodic Mycoses (1 source) Candidiasis, unspecified; Translations: [CANDIDIASIS UNSPECIFIED] Onset: 08-23-2022 Episodic Nausea and vomiting (4 sources) Vomiting, unspecified; Translations: [Nausea with vomiting, unspecified] Onset: 08-30-2022 Episodic Nonmalignant breast conditions (5 sources) Unspecified lump in unspecified breast; Translations: [Unspecified lump in the right breast, unspecified quadrant] Onset: 09-17-2022 Episodic Nutritional deficiencies (18 sources) Deficiency of other specified B group vitamins; Translations: [Folic acid deficiency] Onset: 09-23-2022 03-28-2023 Episodic Other and unspecified benign neoplasm (1 source) Benign neoplasm of right breast; Translations: [BENIGN NEOPLASM OF RIGHT BREAST] Onset: 10-01-2022 Episodic Other circulatory disease (1 source) Other disorder of circulatory system; Translations: [Other disorder of circulatory system] Onset: 08-01-2023 Episodic Other connective tissue disease (10 sources) Weakness of distal arms and legs; [...] hepatic fibrosis] 05-14-2023 Chronic Other liver diseases (13 sources) Fatty (change of) liver, not elsewhere classified; 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] 05-30-2023 Chronic Other liver diseases (19 sources) Enzyme level - finding; Translations: [Elevated transaminase measurement] 03-22-2023 Episodic Other liver diseases (1 source) Elevated liver enzymes level 01-11-2021 Episodic Other nervous system disorders (9 sources) Disorder of the peripheral nervous system; Translations: [Polyneuropathy, unspecified] 03-26-2023 Chronic Other nervous system disorders (15 sources) Polyneuropathy, unspecified; Translations: [Unspecified hereditary and idiopathic peripheral neuropathy] Onset: 03-22-2023 03-27-2023 Chronic Other nervous system disorders (1 source) Anesthesia of skin; Translations: [ANESTHESIA OF SKIN] Onset: 10-26-2022 Episodic Other nervous system disorders (10 sources) Paresthesia of lower extremity; Translations: [Paresthesia of skin] 03-21-2023 Episodic Other nervous system disorders (10 sources) Paresthesia of upper limb; Translations: [Paresthesia [...] Chronic Other nutritional; endocrine; and metabolic disorders (10 sources) Hypophosphatemia; Translations: [Other disorders of phosphorus metabolism] 03-21-2023 Chronic Other nutritional; endocrine; and metabolic disorders (10 sources) Hypomagnesemia; Translations: [Hypomagnesemia] 03-21-2023 Chronic Other nutritional; endocrine; and metabolic disorders (9 sources) Other disorders of phosphorus metabolism; 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] Onset: 03-22-2023 03-22-2023 Chronic Other nutritional; endocrine; and metabolic disorders (10 sources) Decrease in appetite; Translations: [Anorexia] 03-21-2023 Episodic Other nutritional; endocrine; and metabolic disorders (9 sources) Weight loss; Translations: [Abnormal weight loss] 03-21-2023 Episodic Other nutritional; endocrine; and metabolic disorders (5 sources) Anorexia; Translations: [Anorexia] 03-22-2023 Episodic Other nutritional; endocrine; and metabolic disorders (1 source) Weight decreased; Translations: [Abnormal weight loss] 03-21-2023 Episodic Other skin disorders (7 sources) Skin hypopigmented; Translations: [Disorder of pigmentation, [...] source) Edema Onset: 08-01-2023 Episodic Substance-related disorders (20 sources) Nicotine dependence, cigarettes, uncomplicated; Translations: [History [...] transaminase levels] Onset: 03-22-2023 Urinary tract infections (19 sources) Urinary tract infectious disease; Translations: [Urinary tract infection, site not specified] Onset: 03-22-2023 03-21-2023 Episodic Past or Other Problems Problem Classification Problem Date Documented Date Episodic/Chronic Conditions associated with dizziness or vertigo (1 source) Dizziness; Translations: [Dizziness and giddiness] 08-18-2023 Episodic E Codes: Cut/pierceb (1 source) Contact with other sharp object(s), not elsewhere classified, initial encounter; Translations: [[facility] CLASS INI] [...] status; Translations: [Other specified health status] Onset: 09-06-2023 Episodic Syncope (5 sources) Syncope and collapse; Translations: [Near syncope] Onset: 09-13-2022 Episodic Unclassified (1 source) Supraventricular tachycardia, unspecified; Translations: [Supraventricular tachycardia, unspecified] Onset: 05-08-2023 Results Test Name Value Interpretation Reference Range Facility PAT Antinuclear Antibodieson 12-11-2023 Antinuclear Abs, IFA Positive Critically abnormal . [facility] Comment on above: Result Comment: Nega tive <1:80 Borderline 1:80 Positive >1:80 Performed By: #### C REAT, ESR, CRP, HEPATIC, CK, CBC, MISC LAB #### [address] #### ANTI-KU AB, MITOM2, CH50, PAT, RNA POLYMR, C3, C4 #### [facility] , Note 1 Normal . [facility] Comment on above: Result Comment: Holly danielle Potential Disease Association Homogeneous Systemic Lupus Erythematosus, Drug Induced Systemic Lupus Erythematosus, Chronic Autoimmune hepatitis, Juvenile Idiopathic Arthritis Speckled Sjogren Syndrome, Systemic Lupus Erythematosus, Subacute Cutaneous Lupus, Lupus, Congenital Heart Block, Mixed Connective Tissue Disease, Scleroderma-diffuse, Scleroderma-Autoimmune Myositis Overlap Syndrome, Systemic Lupus Usjydrzuremkp-Swqzmhpzvab-Mknsneqscy Myositis Overlap Syndrome, Systemic Autoimmune Rheumatic Disease, [...] Cytopenias, Linear Scleroderma, Antiphospholipid Syndrome Performed at: [facility] [id number] Ivory Carver: Breezy Jones PhD, Phone: [phone] Performed By: #### C REAT, ESR, CRP, HEPATIC, CK, CBC, MISC LAB #### [facility] [address] [place] [address] #### ANTI-KU AB, MITOM2, CH50, PAT, RNA POLYMR, C3, C4 #### [facility] , Speckled Pattern 1:80 Normal . [facility] Comment on above: Result Comment: ICA nomenclature: [id number] Performed By: #### C REAT, ESR, CRP, HEPATIC, CK, CBC, MISC LAB #### [facility] [address] [place] [address] [place] #### ANTI-KU AB, MITOM2, CH50, PAT, RNA POLYMR, C3, C4 #### [facility] , Alanine aminotransferase [En zymatic activity/volume] in Serum or PlasmaOrdered By: Cristóbal Casillas on 12-11-2023 ALT [Catalytic activity/Vol] 14 U/L Normal 7-52 [facility] Comment on above: Performed By: #### C REAT, ESR, CRP, HEPATIC, CK, CBC, MISC LAB #### [facility] [address] [place] [address] [place] #### ANTI-KU AB, MITOM2, CH50, PAT, RNA POLYMR, C3, C4 #### [facility] , Albumin [Mass/volume] in Ser um or Plasma by Bromocresol green (BCG) dye binding methoOrdered By: Cristóbal Casillas on 12-11-2023 Albumin BCG dye [Mass/Vol] 5.0 g/dL 3.5-5.7 [facility] Alkaline phosphatase [Enzyma tic activity/volume] in Serum or PlasmaOrdered By: Cristóbal Casillas on 12-11-2023 ALP [Catalytic activity/Vol] 54 U/L Normal 34-104 [facility] Comment on above: Performed By: #### C REAT, ESR, CRP, HEPATIC, CK, CBC, MISC LAB #### [place] [address] [place] #### ANTI-KU AB, MITOM2, CH50, PAT, RNA POLYMR, C3, C4 #### [facility] , Anti-Ku Antibodyon 4 Anti-Ku Antibody Negative Normal Negative [facility] Comment on above: Result Comment: This test was developed and its performance characteristics determined by [facility]. It has not been cleared or approved by the Food and Drug Administration. Performed at: [facility] [address] [place] [id number] Ivory Carver: Morteza Ambrocio MD, Phone: [phone] PERFORMED BY: [place] [address] PATHOLOGIST TROUBLE DISPATCHER RUIZ CLIFTON M.D. Performed By: #### C REAT, ESR, CRP, HEPATIC, CK, CBC, MISC LAB #### [place] [address] [place] #### ANTI-KU AB, MITOM2, CH50, PAT, RNA POLYMR, C3, C4 #### [facility] , Aspartate aminotransferase [ Enzymatic activity/volume] in Serum or PlasmaOrdered By: Cristóbal Casillas on 12-11-2023 AST [Catalytic activity/Vol] 16 U/L Normal 13-39 [facility] Comment on above: Performed By: #### C REAT, ESR, CRP, HEPATIC, CK, CBC, MISC LAB #### [address] #### ANTI-KU AB, MITOM2, CH50, PAT, RNA POLYMR, C3, C4 #### [facility] , Automated basophil %Ordered By: Cristóbal Casillas on 12-11-2023 Basophils/100 WBC (Bld) 0.6 % Normal . [facility] Comment on above: Performed By: #### C REAT, ESR, CRP, HEPATIC, CK, CBC, MISC LAB #### [address] #### ANTI-KU AB, MITOM2, CH50, PAT, RNA POLYMR, C3, C4 #### [facility] , Automated basophil countOrde red By: Cristóbal Casillas on 12-11-2023 Basophils (Bld) [#/Vol] 0.1 10*3/uL Normal 0.0-0.2 [facility] Comment on above: Performed By: #### C REAT, ESR, CRP, HEPATIC, CK, CBC, MISC LAB #### [place] [address] [place] #### ANTI-KU AB, MITOM2, CH50, PAT, RNA POLYMR, C3, C4 #### [facility] , Automated blood monocyte cou ntOrdered By: Cristóbal Casillas on 12-11-2023 Monocytes (Bld) [#/Vol] 0.4 10*3/uL Normal 0.0-0.8 [facility] Comment on above: Performed By: #### C REAT, ESR, CRP, HEPATIC, CK, CBC, MISC LAB #### [place] [address] [place] #### ANTI-KU AB, MITOM2, CH50, PAT, RNA POLYMR, C3, C4 #### [facility] , Automated eosinophil %Ordere d By: Cristóbal Casillas on 12-11-2023 Eosinophils/100 WBC (Bld) 1.9 % Normal . [facility] Comment on above: Performed By: #### C REAT, ESR, CRP, HEPATIC, CK, CBC, MISC LAB #### [place] [address] [place] #### ANTI-KU AB, MITOM2, CH50, PAT, RNA POLYMR, C3, C4 #### [facility] , Automated eosinophil countOr dered By: Cristóbal Casillas on 12-11-2023 Eosinophils (Bld) [#/Vol] 0.2 10*3/uL Normal 0.0-0.45 [facility] Comment on above: Performed By: #### C REAT, ESR, CRP, HEPATIC, CK, CBC, MISC LAB #### [place] [address] [place] #### ANTI-KU AB, MITOM2, CH50, PAT, RNA POLYMR, C3, C4 #### [facility] , Automated monocyte %Ordered By: Cristóbal Casillas on 12-11-2023 Monocytes/100 WBC (Bld) 4.3 % Normal . [facility] Comment on above: Performed By: #### C REAT, ESR, CRP, HEPATIC, CK, CBC, MISC LAB #### [place] [address] [place] #### ANTI-KU AB, MITOM2, CH50, PAT, RNA POLYMR, C3, C4 #### [facility] , Automated neutrophil %Ordere d By: Cristóbal Casillas on 12-11-2023 Neutrophils/100 WBC (Bld) 71.2 % Normal . [facility] Comment on above: Performed By: #### C REAT, ESR, CRP, HEPATIC, CK, CBC, MISC LAB #### [place] [address] [place] #### ANTI-KU AB, MITOM2, CH50, PAT, RNA POLYMR, C3, C4 #### [facility] , Bilirubin.direct [Mass/volum e] in Serum or PlasmaOrdered By: Cristóbal Casillas on 12-11-2023 Bilirubin.direct [Mass/Vol] 0.10 mg/dL 0.03-0.18 [facility] Bilirubin.total [Mass/volume ] in Serum or PlasmaOrdered By: Cristóbal Casillas on 12-11-2023 Bilirubin [Mass/Vol] 0.5 mg/dL Normal 0.3-1.0 [facility] Comment on above: Performed By: #### C REAT, ESR, CRP, HEPATIC, CK, CBC, MISC LAB #### [place] [address] [place] #### ANTI-KU AB, MITOM2, CH50, PAT, RNA POLYMR, C3, C4 #### [facility] , C reactive protein [Mass/vol ume] in Serum or PlasmaOrdered By: Cristóbal Casillas on 12-11-2023 CRP [Mass/Vol] < 0.5 mg/dL 0.0-0.5 [facility] C-Reactive Proteinon 024 CRP [Mass/Vol] mg/L Normal 0.0-0.5 [facility] Comment on above: Result Comment: PERF ORMED BY: [place] [address] PATHOLOGIST TROUBLE DISPATCHER RUIZ CLIFTON M.D. Performed By: #### C REAT, ESR, CRP, HEPATIC, CK, CBC, MISC LAB #### [place] [address] [place] #### ANTI-KU AB, MITOM2, CH50, PAT, RNA POLYMR, C3, C4 #### [facility] , Complement C3on 12-11-2023 Complement C3 141 mg/dL Normal 82-167 [facility] Comment on above: Result Comment: Perf ormed at: [address] [id number] Ivory Carver: Breezy Jones PhD, Phone: [phone] Performed By: #### C REAT, ESR, CRP, HEPATIC, CK, CBC, MISC LAB #### [place] [address] [place] #### ANTI-KU AB, MITOM2, CH50, PAT, RNA POLYMR, C3, C4 #### [facility] , Complement C4on 12-11-2023 Complement C4 24 mg/dL Normal 12-38 [facility] Comment on above: Result Comment: PERF ORMED BY: [place] [address] PATHOLOGIST TROUBLE DISPATCHER RUIZ CLIFTON M.D. Performed By: #### C REAT, ESR, CRP, HEPATIC, CK, CBC, MISC LAB #### [address] #### ANTI-KU AB, MITOM2, CH50, PAT, RNA POLYMR, C3, C4 #### [facility] , Complement Total (CH50)on Complement Total (CH50) >60 Normal >41 [facility] Comment on above: [...] determine out of range values. Performed at: [address], [place] [id number] Ivory Carver: Breezy Jones PhD, Phone: [phone] PERFORMED BY: [place] [address] PATHOLOGIST TROUBLE DISPATCHER RUIZ CLIFTON M.D. Performed By: #### C REAT, ESR, CRP, HEPATIC, CK, CBC, MISC LAB #### [place] [address] [place] #### ANTI-KU AB, MITOM2, CH50, PAT, RNA POLYMR, C3, C4 #### [facility] , Complete Blood Count Auto Di ffon 12-11-2023 Mean Corpuscular HGB Conc 33.3 g/dL Normal 32.0-35.0 [facility] Comment on above: Performed By: #### C REAT, ESR, CRP, HEPATIC, CK, CBC, MISC LAB #### [place] [address] [place] #### ANTI-KU AB, MITOM2, CH50, PAT, RNA POLYMR, C3, C4 #### [facility] , NRBC% 0.1 /100{WBC} Normal 0-0.5 [facility] Comment on above: Performed By: #### C REAT, ESR, CRP, HEPATIC, CK, CBC, MISC LAB #### [place] [address] [place] #### ANTI-KU AB, MITOM2, CH50, PAT, RNA POLYMR, C3, C4 #### [facility] , Creatine kinase [Enzymatic a ctivity/volume] in Serum or PlasmaOrdered By: Cristóbal Casillas on 12-11-2023 CK [Catalytic activity/Vol] 103 U/L Normal 30-223 [facility] Comment on above: Result Comment: PERF ORMED BY: [place] [address] PATHOLOGIST TROUBLE DISPATCHER RUIZ CLIFTON M.D. Performed By: #### C REAT, ESR, CRP, HEPATIC, CK, CBC, MISC LAB #### [address] #### ANTI-KU AB, MITOM2, CH50, PAT, RNA POLYMR, C3, C4 #### [facility] , Creatinineon 12-11-2023 GFR/1.73 sq M.predicted MDRD (S/P/Bld) [Vol rate/Area] mL/min/{1.73_m2} Normal [facility] Comment on above: Performed By: #### C REAT, ESR, CRP, HEPATIC, CK, CBC, MISC LAB #### [place] [address] [place] #### ANTI-KU AB, MITOM2, CH50, PAT, RNA POLYMR, C3, C4 #### [facility] , Creatinine [Mass/volume] in Serum or PlasmaOrdered By: Cristóbal Casillas on 12-11-2023 Creatinine [Mass/Vol] 0.68 mg/dL Normal 0.60-1.20 [facility] Comment on above: Performed By: #### C REAT, ESR, CRP, HEPATIC, CK, CBC, MISC LAB #### [address] #### ANTI-KU AB, MITOM2, CH50, PAT, RNA POLYMR, C3, C4 #### [facility] , Erythrocyte Sedimentation Ra mert 12-11-2023 ESR (Bld) [Velocity] 35 mm/h High 0-19 [facility] Comment on above: Result Comment: PERF ORMED BY: [place] [address] PATHOLOGIST TROUBLE DISPATCHER RUIZ CLIFTON M.D. Performed By: #### C REAT, ESR, CRP, HEPATIC, CK, CBC, MISC LAB #### [place] [address] [place] #### ANTI-KU AB, MITOM2, CH50, PAT, RNA POLYMR, C3, C4 #### [facility] , Erythrocyte distribution wid th [Ratio] by Automated countOrdered By: Cristóbal Casillas on 12-11-2023 Erythrocyte distribution width (RBC) [Ratio] 12.5 % Normal 11.9-15.3 [facility] Comment on above: Performed By: #### C REAT, ESR, CRP, HEPATIC, CK, CBC, MISC LAB #### [facility] [address] [place] [address] [place] #### ANTI-KU AB, MITOM2, CH50, PAT, RNA POLYMR, C3, C4 #### [facility] , Erythrocyte sedimentation ra te by Photometric methodOrdered By: Cristóbal Casillas on 12-11-2023 ESR Photometric method (Bld) [Velocity] 35 mm/hr 0-19 [facility] Erythrocytes [#/volume] in B lood by Automated countOrdered By: Cristóbal Casillas on 12-11-2023 RBC (Bld) [#/Vol] 4.94 10*6/uL Normal 3.60-5.00 [facility] Comment on above: Performed By: #### C REAT, ESR, CRP, HEPATIC, CK, CBC, MISC LAB #### [place] [address] [place] #### ANTI-KU AB, MITOM2, CH50, PAT, RNA POLYMR, C3, C4 #### [facility] , Hematocrit [Volume Fraction] of Blood by Automated countOrdered By: Cristóbal Casillas on 12-11-2023 Hematocrit (Bld) [Volume fraction] 44.8 % Normal 34.0-46.4 [facility] Comment on above: Performed By: #### C REAT, ESR, CRP, HEPATIC, CK, CBC, MISC LAB #### [place] [address] [place] #### ANTI-KU AB, MITOM2, CH50, PAT, RNA POLYMR, C3, C4 #### [facility] , Hemoglobin [Mass/volume] in BloodOrdered By: Cristóbal Casillas on 12-11-2023 Hemoglobin (Bld) [Mass/Vol] 14.9 g/dL Normal 11.8-15.4 [facility] Comment on above: Performed By: #### C REAT, ESR, CRP, HEPATIC, CK, CBC, MISC LAB #### [facility] [address] [place] [address] [place] #### ANTI-KU AB, MITOM2, CH50, PAT, RNA POLYMR, C3, C4 #### [facility] , Hepatic Panelon 12-11-2023 Albumin [Mass/Vol] 5.0 g/dL Normal 3.5-5.7 [facility] Comment on above: Performed By: #### C REAT, ESR, CRP, HEPATIC, CK, CBC, MISC LAB #### [facility] [address] [place] [address] #### ANTI-KU AB, MITOM2, CH50, PAT, RNA POLYMR, C3, C4 #### [facility] , Bilirubin,Indirect 0.4 mg/dL Normal [facility] Comment on above: Performed By: #### C REAT, ESR, CRP, HEPATIC, CK, CBC, MISC LAB #### [facility] [address] [place] [address] [place] #### ANTI-KU AB, MITOM2, CH50, PAT, RNA POLYMR, C3, C4 #### [facility] , Bilirubin.indirect [Mass/Vol] 0.10 mg/dL Normal 0.03-0.18 [facility] Comment on above: Performed By: #### C REAT, ESR, CRP, HEPATIC, CK, CBC, MISC LAB #### [place] [address] [place] #### ANTI-KU AB, MITOM2, CH50, PAT, RNA POLYMR, C3, C4 #### [facility] , Leukocytes [#/volume] correc antoine for nucleated erythrocytes in Blood by Automated counOrdered By: Cristóbal Casillas on 12-11-2023 WBC corrected for nucl RBC Auto (Bld) [#/Vol] 10.4 10*3/uL 3.8-11.6 [facility] Leukocytes [#/volume] in Blo od by Automated countOrdered By: Cristóbal Casillas on 12-11-2023 WBC (Bld) [#/Vol] 10.4 10*3/uL Normal 3.8-11.6 [facility] Comment on above: Performed By: #### C REAT, ESR, CRP, HEPATIC, CK, CBC, MISC LAB #### [facility] [address] [place] [address] [place] #### ANTI-KU AB, MITOM2, CH50, PAT, RNA POLYMR, C3, C4 #### [facility] , Lymphocytes [#/volume] in Bl ood by Automated countOrdered By: Cristóbal Casillas on 12-11-2023 Lymphocytes (Bld) [#/Vol] 2.3 10*3/uL Normal 1.00-4.8 [facility] Comment on above: Performed By: #### C REAT, ESR, CRP, HEPATIC, CK, CBC, MISC LAB #### [place] [address] [place] #### ANTI-KU AB, MITOM2, CH50, PAT, RNA POLYMR, C3, C4 #### [facility] , Lymphocytes/100 leukocytes i n Blood by Automated countOrdered By: Cristóbal Casillas on 12-11-2023 Lymphocytes/100 WBC (Bld) 22.0 % Normal . [facility] Comment on above: Performed By: #### C REAT, ESR, CRP, HEPATIC, CK, CBC, MISC LAB #### [place] [address] [place] #### ANTI-KU AB, MITOM2, CH50, PAT, RNA POLYMR, C3, C4 #### [facility] , MCH [Entitic mass] by Automa antoine countOrdered By: Cristóbal Casillas on 12-11-2023 MCH (RBC) [Entitic mass] 30.2 pg Normal 24.7-34.3 [facility] Comment on above: Performed By: #### C REAT, ESR, CRP, HEPATIC, CK, CBC, MISC LAB #### [place] [address] [place] #### ANTI-KU AB, MITOM2, CH50, PAT, RNA POLYMR, C3, C4 #### [facility] , MCHC Auto (RBC) [Mass/Vol]Or dered By: Cristóbal Casillas on 12-11-2023 MCHC (RBC) [Mass/Vol] 33.3 g/dL 32.0-35.0 [facility] MCV [Entitic volume] by Auto mated countOrdered By: Cristóbal Casillas on 12-11-2023 MCV (RBC) [Entitic vol] 90.6 fL Normal 80-100 [facility] Comment on above: Performed By: #### C REAT, ESR, CRP, HEPATIC, CK, CBC, MISC LAB #### [address] #### ANTI-KU AB, MITOM2, CH50, PAT, RNA POLYMR, C3, C4 #### [facility] , MISC LABon 12-11-2023 [facility] Normal [facility] Comment on above: Order Comment: [facility] Test Name: TEST #[id number] TIF1 Result Comment: See report. Scanned copy available in EMR. PERFORMED BY: [place] [address] PATHOLOGIST TROUBLE DISPATCHER RUIZ CLIFTON M.D. Performed By: #### C REAT, ESR, CRP, HEPATIC, CK, CBC, MISC LAB #### [address] #### ANTI-KU AB, MITOM2, CH50, PAT, RNA POLYMR, C3, C4 #### [facility] , Mitochondrial (M2) Antibodyo n 12-11-2023 Mitochondrial (M2) Antibody <20.0 Normal 0.0-20.0 [facility] Comment on above: Result Comment: Nega tive 0.0 - 20.0 Equivocal 20.1 - 24.9 Positive >24.9 Mitochondrial (M2) Antibodies are found in 90-96% of patients with primary biliary cirrhosis. Performed at: [address] [id number] Iv[place] Carver: Breezy Jones PhD, Phone: [phone] Performed By: #### C REAT, ESR, CRP, HEPATIC, CK, CBC, MISC LAB #### [address] #### ANTI-KU AB, MITOM2, CH50, PAT, RNA POLYMR, C3, C4 #### [facility] , Neutrophils [#/volume] in Bl ood by Automated countOrdered By: Cristóbal Casillas on 12-11-2023 Neutrophils (Bld) [#/Vol] 7.4 10*3/uL Normal 1.8-7.7 [facility] Comment on above: Performed By: #### C REAT, ESR, CRP, HEPATIC, CK, CBC, MISC LAB #### [place] [address] [place] #### ANTI-KU AB, MITOM2, CH50, PAT, RNA POLYMR, C3, C4 #### [facility] , No Panel InformationOrdered By: Cristóbal Casillas on 12-11-2023 Estimated GFR (CKD-EPI) > 60.0 mL/Min [facility] Creatinine Clearance (Chem N/A [facility] Nucleated erythrocytes [Pres ence] in Blood by Automated countOrdered By: Cristóbal Casillas on 12-11-2023 Nucleated RBC Auto Ql (Bld) 0.1 /100{WBC} 0-0.5 [facility] Platelet mean volume [Entiti c volume] in Blood by Automated countOrdered By: Cristóbal Casillas on 12-11-2023 Platelet mean volume (Bld) [Entitic vol] 8.8 fL Normal 6.3-10.7 [facility] Comment on above: Performed By: #### C REAT, ESR, CRP, HEPATIC, CK, CBC, MISC LAB #### [address] #### ANTI-KU AB, MITOM2, CH50, PAT, RNA POLYMR, C3, C4 #### [facility] , Platelets [#/volume] in Bloo d by Automated countOrdered By: Cristóbal Casillas on 12-11-2023 Platelets (Bld) [#/Vol] 319 10*3/uL Normal 150-450 [facility] Comment on above: Performed By: #### C REAT, ESR, CRP, HEPATIC, CK, CBC, MISC LAB #### [address] #### ANTI-KU AB, MITOM2, CH50, PAT, RNA POLYMR, C3, C4 #### [facility] , Protein [Mass/volume] in Ser um or PlasmaOrdered By: Cristóbal Casillas on 12-11-2023 Protein [Mass/Vol] 8.1 g/dL Normal 6.4-8.9 [facility] Comment on above: Performed By: #### C REAT, ESR, CRP, HEPATIC, CK, CBC, MISC LAB #### [address] #### ANTI-KU AB, MITOM2, CH50, PAT, RNA POLYMR, C3, C4 #### [facility] , RNA Polymerase IIion 024 RNA Polymerase IIi <20 Normal <20 [facility] Comment on above: Result Comment: Nega tive: <20 Weak Positive: 20 - 39 Moderate Positive: 40 - 80 Strong Positive: >80 Performed at: [facility] [address] [place] [id number] Ivory Carver: Morteza Ambrocio MD, Phone: [phone] PERFORMED BY: [place] [address] PATHOLOGIST TROUBLE DISPATCHER RUIZ CLIFTON M.D. Performed By: #### C REAT, ESR, CRP, HEPATIC, CK, CBC, MISC LAB #### [address] [place] [address] [place] #### ANTI-KU AB, MITOM2, CH50, PAT, RNA POLYMR, C3, C4 #### [facility] , Serum globulin measurement b y calculation (mass/volume)Ordered By: Cristóabl Casillas on 12-11-2023 Globulin (S) [Mass/Vol] 3.1 g/dL Normal [facility] Comment on above: Performed By: #### C REAT, ESR, CRP, HEPATIC, CK, CBC, MISC LAB #### [address] #### ANTI-KU AB, MITOM2, CH50, PAT, RNA POLYMR, C3, C4 #### [facility] , Serum or plasma albumin/glob ulin mass ratioOrdered By: Cristóbal Casillas on 12-11-2023 Albumin/Globulin [Mass ratio] 1.6 {ratio} Normal [facility] Comment on above: Performed By: #### C REAT, ESR, CRP, HEPATIC, CK, CBC, MISC LAB #### [address] #### ANTI-KU AB, MITOM2, CH50, PAT, RNA POLYMR, C3, C4 #### [facility] , Serum or plasma non-glucuron idated bilirubin measurement (mass/volume)Ordered By: Cristóbal Casillas on 12-11-2023 Bilirubin.indirect [Mass/Vol] 0.4 mg/dL [facility] Alanine aminotransferase [En zymatic activity/volume] in Serum or PlasmaOrdered By: Jane Tracey on 11-06-2023 ALT [Catalytic activity/Vol] 13 U/L Normal 7-52 [facility] Comment on above: Performed By: #### C REAT, ESR, CRP, HEPATIC, CK, CBC, MISC LAB #### [place] [address] [place] #### ANTI-KU AB, MITOM2, CH50, PAT, RNA POLYMR, C3, C4 #### [facility] , Albumin [Mass/volume] in Ser um or PlasmaOrdered By: Jane Tracey on 11-06-2023 Albumin [Mass/Vol] 4.1 g/dL Normal 2.9-4.4 [facility] Comment on above: Performed By: #### C REAT, ESR, CRP, HEPATIC, CK, CBC, MISC LAB #### [facility] [address] [place] [address] [place] #### ANTI-KU AB, MITOM2, CH50, PAT, RNA POLYMR, C3, C4 #### [facility] , Albumin [Mass/volume] in Ser um or Plasma by Bromocresol green (BCG) dye binding methoOrdered By: Jane Tracey on 11-06-2023 Albumin BCG dye [Mass/Vol] 4.5 g/dL 3.5-5.7 [facility] Alkaline phosphatase [Enzyma tic activity/volume] in Serum or PlasmaOrdered By: Jane Tracey on 11-06-2023 ALP [Catalytic activity/Vol] 58 U/L Normal 34-104 [facility] Comment on above: Performed By: #### C REAT, ESR, CRP, HEPATIC, CK, CBC, MISC LAB #### [place] [address] [place] #### ANTI-KU AB, MITOM2, CH50, PAT, RNA POLYMR, C3, C4 #### [facility] , Aspartate aminotransferase [ Enzymatic activity/volume] in Serum or PlasmaOrdered By: lilia Tracey on 11-06-2023 AST [Catalytic activity/Vol] 17 U/L Normal 13-39 [facility] Comment on above: Performed By: #### C REAT, ESR, CRP, HEPATIC, CK, CBC, MISC LAB #### [facility] [address] [place] [address] [place] #### ANTI-KU AB, MITOM2, CH50, PAT, RNA POLYMR, C3, C4 #### [facility] , Automated basophil %Ordered By: Jane Tracey on 11-06-2023 Basophils/100 WBC (Bld) 0.7 % Normal . [facility] Comment on above: Performed By: #### C REAT, ESR, CRP, HEPATIC, CK, CBC, MISC LAB #### [facility] [address] [place] [address] #### ANTI-KU AB, MITOM2, CH50, PAT, RNA POLYMR, C3, C4 #### [facility] , Automated basophil countOrde red By: Jane Tracey on 11-06-2023 Basophils (Bld) [#/Vol] 0.1 10*3/uL Normal 0.0-0.2 [facility] Comment on above: Result Comment: PERF ORMED BY: [place] [address] PATHOLOGIST TROUBLE DISPATCHER RUIZ CLIFTON M.D. Performed By: #### C REAT, ESR, CRP, HEPATIC, CK, CBC, MISC LAB #### [address] #### ANTI-KU AB, MITOM2, CH50, PAT, RNA POLYMR, C3, C4 #### [facility] , Automated blood monocyte cou ntOrdered By: lilia Tracey on 11-06-2023 Monocytes (Bld) [#/Vol] 0.5 10*3/uL Normal 0.0-0.8 [facility] Comment on above: Performed By: #### C REAT, ESR, CRP, HEPATIC, CK, CBC, MISC LAB #### [place] [address] [place] #### ANTI-KU AB, MITOM2, CH50, PAT, RNA POLYMR, C3, C4 #### [facility] , Automated eosinophil %Ordere d By: Jane Tracey on 11-06-2023 Eosinophils/100 WBC (Bld) 2.3 % Normal . [facility] Comment on above: Performed By: #### C REAT, ESR, CRP, HEPATIC, CK, CBC, MISC LAB #### [facility] [address] [place] [address] [place] #### ANTI-KU AB, MITOM2, CH50, PAT, RNA POLYMR, C3, C4 #### [facility] , Automated eosinophil countOr dered By: Jane Tracey on 11-06-2023 Eosinophils (Bld) [#/Vol] 0.2 10*3/uL Normal 0.0-0.45 [facility] Comment on above: Performed By: #### C REAT, ESR, CRP, HEPATIC, CK, CBC, MISC LAB #### [place] [address] [place] #### ANTI-KU AB, MITOM2, CH50, PAT, RNA POLYMR, C3, C4 #### [facility] , Automated monocyte %Ordered By: Jane Tracey on 11-06-2023 Monocytes/100 WBC (Bld) 5.5 % Normal . [facility] Comment on above: Performed By: #### C REAT, ESR, CRP, HEPATIC, CK, CBC, MISC LAB #### [place] [address] [place] #### ANTI-KU AB, MITOM2, CH50, PAT, RNA POLYMR, C3, C4 #### [facility] , Automated neutrophil %Ordere d By: Jane Tracey on 11-06-2023 Neutrophils/100 WBC (Bld) 69.1 % Normal . [facility] Comment on above: Performed By: #### C REAT, ESR, CRP, HEPATIC, CK, CBC, MISC LAB #### [place] [address] [place] #### ANTI-KU AB, MITOM2, CH50, PAT, RNA POLYMR, C3, C4 #### [facility] , Bilirubin.total [Mass/volume ] in Serum or PlasmaOrdered By: Jane Tracey on 11-06-2023 Bilirubin [Mass/Vol] 0.4 mg/dL Normal 0.3-1.0 [facility] Comment on above: Performed By: #### C REAT, ESR, CRP, HEPATIC, CK, CBC, MISC LAB #### [address] #### ANTI-KU AB, MITOM2, CH50, PAT, RNA POLYMR, C3, C4 #### [facility] , Calcium [Mass/volume] in Ser um or PlasmaOrdered By: Jane Tracey on 11-06-2023 Calcium [Mass/Vol] 9.9 mg/dL Normal 8.6-10.3 [facility] Comment on above: Performed By: #### C REAT, ESR, CRP, HEPATIC, CK, CBC, MISC LAB #### [address] #### ANTI-KU AB, MITOM2, CH50, PAT, RNA POLYMR, C3, C4 #### [facility] , Carbon dioxide, total [Moles /volume] in Serum or PlasmaOrdered By: lilia Condon on 11-06-2023 CO2 [Moles/Vol] 25.0 mmol/L Normal 21.0-31.0 [facility] Comment on above: Performed By: #### C REAT, ESR, CRP, HEPATIC, CK, CBC, MISC LAB #### [place] [address] [place] #### ANTI-KU AB, MITOM2, CH50, PAT, RNA POLYMR, C3, C4 #### [facility] , Chloride [Moles/volume] in S caitlyn or PlasmaOrdered By: lilia Tracey on 11-06-2023 Chloride [Moles/Vol] 102 mmol/L Normal 98-107 [facility] Comment on above: Performed By: #### C REAT, ESR, CRP, HEPATIC, CK, CBC, MISC LAB #### [place] [address] [place] #### ANTI-KU AB, MITOM2, CH50, PAT, RNA POLYMR, C3, C4 #### [facility] , Complete Blood Count Auto Di ffon 11-06-2023 Mean Corpuscular HGB Conc 33.7 g/dL Normal 32.0-35.0 [facility] Comment on above: Performed By: #### C REAT, ESR, CRP, HEPATIC, CK, CBC, MISC LAB #### [place] [address] [place] #### ANTI-KU AB, MITOM2, CH50, PAT, RNA POLYMR, C3, C4 #### [facility] , NRBC% 0.3 /100{WBC} Normal 0-0.5 [facility] Comment on above: Performed By: #### C REAT, ESR, CRP, HEPATIC, CK, CBC, MISC LAB #### [address] #### ANTI-KU AB, MITOM2, CH50, PAT, RNA POLYMR, C3, C4 #### [facility] , Comprehensive Metabolic Pane antione 11-06-2023 Albumin [Mass/Vol] 4.5 g/dL Normal 3.5-5.7 [facility] Comment on above: Performed By: #### C REAT, ESR, CRP, HEPATIC, CK, CBC, MISC LAB #### [place] [address] [place] #### ANTI-KU AB, MITOM2, CH50, PAT, RNA POLYMR, C3, C4 #### [facility] , Creatinine Clr Calc Pharmacy 118.57 Normal [facility] Comment on above: Performed By: #### C REAT, ESR, CRP, HEPATIC, CK, CBC, MISC LAB #### [place] [address] [place] #### ANTI-KU AB, MITOM2, CH50, PAT, RNA POLYMR, C3, C4 #### [facility] , GFR/1.73 sq M.predicted MDRD (S/P/Bld) [Vol rate/Area] mL/min/{1.73_m2} Normal [facility] Comment on above: Performed By: #### C REAT, ESR, CRP, HEPATIC, CK, CBC, MISC LAB #### [address] #### ANTI-KU AB, MITOM2, CH50, PAT, RNA POLYMR, C3, C4 #### [facility] , Creatinine [Mass/volume] in Serum or PlasmaOrdered By: Jane Tracey on 11-06-2023 Creatinine [Mass/Vol] 0.61 mg/dL Normal 0.60-1.20 [facility] Comment on above: Performed By: #### C REAT, ESR, CRP, HEPATIC, CK, CBC, MISC LAB #### [place] [address] [place] #### ANTI-KU AB, MITOM2, CH50, PAT, RNA POLYMR, C3, C4 #### [facility] , Erythrocyte distribution wid th [Ratio] by Automated countOrdered By: Jane Condon on 11-06-2023 Erythrocyte distribution width (RBC) [Ratio] 12.3 % Normal 11.9-15.3 [facility] Comment on above: Performed By: #### C REAT, ESR, CRP, HEPATIC, CK, CBC, MISC LAB #### [place] [address] [place] #### ANTI-KU AB, MITOM2, CH50, PAT, RNA POLYMR, C3, C4 #### [facility] , Erythrocytes [#/volume] in B lood by Automated countOrdered By: Jane Tracey on 11-06-2023 RBC (Bld) [#/Vol] 4.62 10*6/uL Normal 3.60-5.00 [facility] Comment on above: Performed By: #### C REAT, ESR, CRP, HEPATIC, CK, CBC, MISC LAB #### [facility] [address] [place] [address] [place] #### ANTI-KU AB, MITOM2, CH50, PAT, RNA POLYMR, C3, C4 #### [facility] , Folate [Mass/volume] in Seru m or PlasmaOrdered By: Jane AcevedoKatjadarleen on 11-06-2023 Folate [Mass/Vol] 23.0 ng/mL >5.9 [facility] Comment on above: Folate reference ran ge: >5.9 ng/mlThe WHO technical consultation on folate and vitamin [id number] has determined that folate concentrations lessthan 4 ng/ml are considered deficient. Free K+L LT Chains, Qn, Son 11-06-2023 Free [place] Light Chains, S 20.5 mg/L High 3.3-19.4 [facility] Comment on above: Performed By: #### C REAT, ESR, CRP, HEPATIC, CK, CBC, MISC LAB #### [facility] [address] [place] [address] [place] #### ANTI-KU AB, MITOM2, CH50, PAT, RNA POLYMR, C3, C4 #### [facility] , Free [place] Light Chains, S 13.8 mg/L Normal 5.7-26.3 [facility] Comment on above: Performed By: #### C REAT, ESR, CRP, HEPATIC, CK, CBC, MISC LAB #### [facility] [address] [place] [address] [place] #### ANTI-KU AB, MITOM2, CH50, PAT, RNA POLYMR, C3, C4 #### [facility] , [place]/Lambda Ratio, S 1.49 Normal 0.26-1.65 [facility] Comment on above: Result Comment: Perf ormed at: - [facility] [address] [id number] Ivory Carver: Breezy Jones PhD, Phone: [phone] PERFORMED BY: [place] [address] PATHOLOGIST TROUBLE DISPATCHER RUIZ CLIFTON M.D. Performed By: #### C REAT, ESR, CRP, HEPATIC, CK, CBC, MISC LAB #### [place] [address] [place] #### ANTI-KU AB, MITOM2, CH50, PAT, RNA POLYMR, C3, C4 #### [facility] , Glucose [Mass/volume] in Ser um or PlasmaOrdered By: Jane Tracey on 11-06-2023 Glucose [Mass/Vol] 94 mg/dL Normal 70-100 [facility] Comment on above: ADA recommended refe rence rangeRandom Glucose Reference Range is dependent on time and content of last meal. Glucose of more than 200 mg/dL in a nonstressed, ambulatory subject supports the diagnosis of Diabetes Mellitus. Result Comment: [place] om Glucose Reference Range is dependent on time and content of last meal. Glucose of more than 200 mg/dL in a nonstressed, ambulatory subject supports the diagnosis of Diabetes Mellitus. ADA recommended reference range Performed By: #### C REAT, ESR, CRP, HEPATIC, CK, CBC, MISC LAB #### [place] [address] [place] #### ANTI-KU AB, MITOM2, CH50, PAT, RNA POLYMR, C3, C4 #### [facility] , Hematocrit [Volume Fraction] of Blood by Automated countOrdered By: lilia Condon on 11-06-2023 Hematocrit (Bld) [Volume fraction] 41.0 % Normal 34.0-46.4 [facility] Comment on above: Performed By: #### C REAT, ESR, CRP, HEPATIC, CK, CBC, MISC LAB #### [place] [address] [place] #### ANTI-KU AB, MITOM2, CH50, PAT, RNA POLYMR, C3, C4 #### [facility] , Hemoglobin [Mass/volume] in BloodOrdered By: lilia Tracey on 11-06-2023 Hemoglobin (Bld) [Mass/Vol] 13.8 g/dL Normal 11.8-15.4 [facility] Comment on above: Performed By: #### C REAT, ESR, CRP, HEPATIC, CK, CBC, MISC LAB #### [facility] [address] #### ANTI-KU AB, MITOM2, CH50, PAT, RNA POLYMR, C3, C4 #### [facility] , Immunoglobulin light chains. kappa.free [Mass/volume] in SerumOrdered By: Jane Tracey on 11-06-2023 Immunoglobulin light chains.kappa.free (S) [Mass/Vol] 20.5 mg/L 3.3-19.4 [facility] Immunoglobulin light chains. kappa.free/Immunoglobulin light chains.lambda.free [MassOrdered By: Jane Tracey on 11-06-2023 Immunoglobulin light chains.kappa.free/Immun oglobulin light chains.lambda.free (S) [Mass ratio] 1.49 0.26-1.65 [facility] Comment on above: Performed at: [place] [id number] Director: Breezy Jones PhD, Phone: [phone] Immunoglobulin light chains. lambda.free [Mass/volume] in Serum or PlasmaOrdered By: Jane Tracey on 11-06-2023 Immunoglobulin light chains.lambda.free [Mass/Vol] 13.8 mg/L 5.7-26.3 [facility] Leukocytes [#/volume] correc antoine for nucleated erythrocytes in Blood by Automated counOrdered By: lilia Tracey on 11-06-2023 WBC corrected for nucl RBC Auto (Bld) [#/Vol] 9.9 10*3/uL 3.8-11.6 [facility] Leukocytes [#/volume] in Blo od by Automated countOrdered By: Jane Tracey on 11-06-2023 WBC (Bld) [#/Vol] 9.9 10*3/uL Normal 3.8-11.6 [facility] Comment on above: Performed By: #### C REAT, ESR, CRP, HEPATIC, CK, CBC, MISC LAB #### [address] #### ANTI-KU AB, MITOM2, CH50, PAT, RNA POLYMR, C3, C4 #### [facility] , Lymphocytes [#/volume] in Bl ood by Automated countOrdered By: lilia Tracey on 11-06-2023 Lymphocytes (Bld) [#/Vol] 2.2 10*3/uL Normal 1.00-4.8 [facility] Comment on above: Performed By: #### C REAT, ESR, CRP, HEPATIC, CK, CBC, MISC LAB #### [place] [address] [place] #### ANTI-KU AB, MITOM2, CH50, PAT, RNA POLYMR, C3, C4 #### [facility] , Lymphocytes/100 leukocytes i n Blood by Automated countOrdered By: lilia Tracey on 11-06-2023 Lymphocytes/100 WBC (Bld) 22.4 % Normal . [facility] Comment on above: Performed By: #### C REAT, ESR, CRP, HEPATIC, CK, CBC, MISC LAB #### [address] #### ANTI-KU AB, MITOM2, CH50, PAT, RNA POLYMR, C3, C4 #### [facility] , MCH [Entitic mass] by Automa antoine countOrdered By: lilia Tracey on 11-06-2023 MCH (RBC) [Entitic mass] 29.9 pg Normal 24.7-34.3 [facility] Comment on above: Performed By: #### C REAT, ESR, CRP, HEPATIC, CK, CBC, MISC LAB #### [place] [address] [place] #### ANTI-KU AB, MITOM2, CH50, PAT, RNA POLYMR, C3, C4 #### [facility] , [facility] Auto (RBC) [Mass/Vol]Or dered By: Jane Tracey on 11-06-2023 [facility] (RBC) [Mass/Vol] 33.7 g/dL 32.0-35.0 [facility] MCV [Entitic volume] by Auto mated countOrdered By: Jane Tracey on 11-06-2023 MCV (RBC) [Entitic vol] 88.8 fL Normal 80-100 [facility] Comment on above: Performed By: #### C REAT, ESR, CRP, HEPATIC, CK, CBC, MISC LAB #### [facility] [address] [place] [address] #### ANTI-KU AB, MITOM2, CH50, PAT, RNA POLYMR, C3, C4 #### [facility] , Neutrophils [#/volume] in Bl ood by Automated countOrdered By: Jane Tracey on 11-06-2023 Neutrophils (Bld) [#/Vol] 6.8 10*3/uL Normal 1.8-7.7 [facility] Comment on above: Performed By: #### C REAT, ESR, CRP, HEPATIC, CK, CBC, MISC LAB #### [facility] [address] [place] [address] [place] #### ANTI-KU AB, MITOM2, CH50, PAT, RNA POLYMR, C3, C4 #### [facility] , No Panel InformationOrdered By: Jane Tracey on 11-06-2023 Estimated GFR (CKD-EPI) > 60.0 mL/Min [facility] Creatinine Clearance (Chem 118.57 [facility] Protein Electrophoresis M-Tomas Not observed g/dL Not Observed [facility] Protein Electrophoresis Note See comment . [facility] Comment on above: Protein electrophore sis scan will follow via computer,mail, or scoring machine operator delivery. Nucleated erythrocytes [Pres ence] in Blood by Automated countOrdered By: Jane Tracey on 11-06-2023 Nucleated RBC Auto Ql (Bld) 0.3 /100{WBC} 0-0.5 [facility] Platelet mean volume [Entiti c volume] in Blood by Automated countOrdered By: Jane Tracey on 11-06-2023 Platelet mean volume (Bld) [Entitic vol] 8.3 fL Normal 6.3-10.7 [facility] Comment on above: Performed By: #### C REAT, ESR, CRP, HEPATIC, CK, CBC, MISC LAB #### [facility] [address] [place] [address] [place] #### ANTI-KU AB, MITOM2, CH50, PAT, RNA POLYMR, C3, C4 #### [facility] , Platelets [#/volume] in Bloo d by Automated countOrdered By: Jane Tracey on 11-06-2023 Platelets (Bld) [#/Vol] 277 10*3/uL Normal 150-450 [facility] Comment on above: Performed By: #### C REAT, ESR, CRP, HEPATIC, CK, CBC, MISC LAB #### [facility] [address] [place] [address] [place] #### ANTI-KU AB, MITOM2, CH50, PAT, RNA POLYMR, C3, C4 #### [facility] , Potassium [Moles/volume] in Serum or PlasmaOrdered By: Jane Tracey on 11-06-2023 Potassium [Moles/Vol] 4.2 mmol/L Normal 3.5-5.1 [facility] Comment on above: Performed By: #### C REAT, ESR, CRP, HEPATIC, CK, CBC, MISC LAB #### [place] [address] [place] #### ANTI-KU AB, MITOM2, CH50, PAT, RNA POLYMR, C3, C4 #### [facility] , Protein Electrophoresis, Ser umon 11-06-2023 Hydvd-3-Ofkfuoqr 0.2 g/dL Normal 0.0-0.4 [facility] Comment on above: Performed By: #### C REAT, ESR, CRP, HEPATIC, CK, CBC, MISC LAB #### [place] [address] [place] #### ANTI-KU AB, MITOM2, CH50, PAT, RNA POLYMR, C3, C4 #### [facility] , Grrgs-0-Axszkuwm 0.8 g/dL Normal 0.4-1.0 [facility] Comment on above: Performed By: #### C REAT, ESR, CRP, HEPATIC, CK, CBC, MISC LAB #### [place] [address] [place] #### ANTI-KU AB, MITOM2, CH50, PAT, RNA POLYMR, C3, C4 #### [facility] , Beta Globulin 1.1 g/dL Normal 0.7-1.3 [facility] Comment on above: Performed By: #### C REAT, ESR, CRP, HEPATIC, CK, CBC, MISC LAB #### [place] [address] [place] #### ANTI-KU AB, MITOM2, CH50, PAT, RNA POLYMR, C3, C4 #### [facility] , Gamma Globulin 1.0 g/dL Normal 0.4-1.8 [facility] Comment on above: Performed By: #### C REAT, ESR, CRP, HEPATIC, CK, CBC, MISC LAB #### [place] [address] [place] #### ANTI-KU AB, MITOM2, CH50, PAT, RNA POLYMR, C3, C4 #### [facility] , M-Tomas Not Observed Normal Not Observed [facility] Comment on above: Performed By: #### C REAT, ESR, CRP, HEPATIC, CK, CBC, MISC LAB #### [place] [address] [place] #### ANTI-KU AB, MITOM2, CH50, PAT, RNA POLYMR, C3, C4 #### [facility] , SPE-Note Normal . [facility] Comment on above: Result Comment: Prot ein electrophoresis scan will follow via computer, mail, or scoring machine operator delivery. Performed By: #### C REAT, ESR, CRP, HEPATIC, CK, CBC, MISC LAB #### [address] #### ANTI-KU AB, MITOM2, CH50, PAT, RNA POLYMR, C3, C4 #### [facility] , Protein [Mass/volume] in Ser um or PlasmaOrdered By: Jane Tracey on 11-06-2023 Protein [Mass/Vol] 7.3 g/dL Normal 6.4-8.9 [facility] Comment on above: Performed By: #### C REAT, ESR, CRP, HEPATIC, CK, CBC, MISC LAB #### [address] #### ANTI-KU AB, MITOM2, CH50, PAT, RNA POLYMR, C3, C4 #### [facility] , Protein [Mass/Vol] 7.2 g/dL Normal 6.0-8.5 [facility] Comment on above: Performed By: #### C REAT, ESR, CRP, HEPATIC, CK, CBC, MISC LAB #### [address] #### ANTI-KU AB, MITOM2, CH50, PAT, RNA POLYMR, C3, C4 #### [facility] , Serum globulin measurement ( mass/volume)Ordered By: Jane Tracey on 11-06-2023 Globulin (S) [Mass/Vol] 3.1 g/dL Normal 2.2-3.9 [facility] Comment on above: Performed By: #### C REAT, ESR, CRP, HEPATIC, CK, CBC, MISC LAB #### [address] #### ANTI-KU AB, MITOM2, CH50, PAT, RNA POLYMR, C3, C4 #### [facility] , Serum globulin measurement b y calculation (mass/volume)Ordered By: Jane Condon on 11-06-2023 Globulin (S) [Mass/Vol] 2.8 g/dL Normal [facility] Comment on above: Performed By: #### C REAT, ESR, CRP, HEPATIC, CK, CBC, MISC LAB #### [address] #### ANTI-KU AB, MITOM2, CH50, PAT, RNA POLYMR, C3, C4 #### [facility] , Serum or plasma albumin/glob ulin mass ratioOrdered By: Jane Tracey on 11-06-2023 Albumin/Globulin [Mass ratio] 1.6 {ratio} Normal [facility] Comment on above: Performed By: #### C REAT, ESR, CRP, HEPATIC, CK, CBC, MISC LAB #### [place] [address] [place] #### ANTI-KU AB, MITOM2, CH50, PAT, RNA POLYMR, C3, C4 #### [facility] , Albumin/Globulin [Mass ratio] 1.3 {ratio} Normal 0.7-1.7 [facility] Comment on above: Performed By: #### C REAT, ESR, CRP, HEPATIC, CK, CBC, MISC LAB #### [place] [address] [place] #### ANTI-KU AB, MITOM2, CH50, PAT, RNA POLYMR, C3, C4 #### [facility] , Serum or plasma alpha 1 glob ulin measurement by electrophoresis (mass/volume)Ordered By: Jane Tracey on 11-06-2023 Alpha 1 globulin Elph [Mass/Vol] 0.2 g/dL 0.0-0.4 [facility] Serum or plasma alpha 2 glob ulin measurement by electrophoresis (mass/volume)Ordered By: Jane Tracey on 11-06-2023 Alpha 2 globulin Elph [Mass/Vol] 0.8 g/dL 0.4-1.0 [facility] Serum or plasma anion gap de terminationOrdered By: Jane Alexy on 11-06-2023 Anion gap [Moles/Vol] 13.2 mmol/L Normal 6.0-15.[address] [facility] Comment on above: Performed By: #### C REAT, ESR, CRP, HEPATIC, CK, CBC, MISC LAB #### [facility] [address] [place] [address] [place] #### ANTI-KU AB, MITOM2, CH50, PAT, RNA POLYMR, C3, C4 #### [facility] , Serum or plasma beta globuli n measurement by electrophoresis (mass/volume)Ordered By: Jane Tracey on 11-06-2023 Beta globulin Elph [Mass/Vol] 1.1 g/dL 0.7-1.3 [facility] Serum or plasma gamma globul in measurement by electrophoresis (mass/volume)Ordered By: Jane Tracey on 11-06-2023 Gamma globulin Elph [Mass/Vol] 1.0 g/dL 0.4-1.8 [facility] Sodium [Moles/volume] in Ser um or PlasmaOrdered By: Jane Tracey on 11-06-2023 Sodium [Moles/Vol] 136 mmol/L Normal 136-145 [facility] Comment on above: Performed By: #### C REAT, ESR, CRP, HEPATIC, CK, CBC, MISC LAB #### [facility] [address] [place] [address] [place] #### ANTI-KU AB, MITOM2, CH50, PAT, RNA POLYMR, C3, C4 #### [facility] , Urea nitrogen [Mass/volume] in Serum or PlasmaOrdered By: Jane Tracey on 11-06-2023 Urea nitrogen [Mass/Vol] 9 mg/dL Normal 7-25 [facility] Comment on above: Performed By: #### C REAT, ESR, CRP, HEPATIC, CK, CBC, MISC LAB #### [facility] [address] [place] [address] [place] #### ANTI-KU AB, MITOM2, CH50, PAT, RNA POLYMR, C3, C4 #### [facility] , Vit. B12/Folate Profileon Folate 23.0 ng/mL Normal >5.9 [facility] Comment on above: Result Comment: Astrid te reference range: >5.9 ng/ml The WHO technical consultation on folate and vitamin b12 deficiencies has determined that folate concentrations less than 4 ng/ml are considered deficient. PERFORMED BY: [place] [address] PATHOLOGIST TROUBLE DISPATCHER RUIZ CILFTON M.D. Performed By: #### C REAT, ESR, CRP, HEPATIC, CK, CBC, MISC LAB #### [address] #### ANTI-KU AB, MITOM2, CH50, PAT, RNA POLYMR, C3, C4 #### [facility] , Vitamin B12 ser/plasOrdered By: Jane Tracey on 11-06-2023 Cobalamin (Vitamin B12) [Mass/Vol] 353 pg/mL Normal 180-914 [facility] Comment on above: Performed By: #### C REAT, ESR, CRP, HEPATIC, CK, CBC, MISC LAB #### [address] #### ANTI-KU AB, MITOM2, CH50, PAT, RNA POLYMR, C3, C4 #### [facility] , BRIEF OP NOTon 09-05-2023 BRIEF OP NOT HNO ID: [id number] Author: SHIV HOLMAN MD Service: Radiology Author Type: Physician Type: Brief Op Note Filed: 09/05/2023 18:09 Note Text: Transjugular liver biopsy Please see dictated report under the Imaging tab in Chart Review. Shiv Holman MD Staff, Interventional Radiology Pager: [phone] 09/05/2023 6:09 PM Normal [facility] CBC W Auto Differential pane l (Bld)on 09-05-2023 Basophils (Bld) [#/Vol] 0.09 10*3/uL Normal <0.11 [facility] Comment on above: Order Comment: Speci men Type: BLOOD SPECIMEN Ordering Facility: [facility] Address: [address] [place] [address] Performed By: #### 3 4528-0 #### [facility] CLIA [id number] [address] [place] [address] [place] Basophils/100 WBC (Bld) 1.2 % Normal [facility] Comment on above: Order Comment: Speci men Type: BLOOD SPECIMEN Ordering Facility: [facility] Address: [address] [place] [address] Performed By: #### 3 4528-0 #### [facility] CLIA [id number] [address] [place] [address] [place] Differential cell count method Nom (Bld) Auto Normal [facility] Comment on above: Order Comment: Speci men Type: BLOOD SPECIMEN Ordering Facility: [facility] Address: [address] [place] [address] Performed By: #### 3 4528-0 #### [facility] CLIA [id number] [address] [place] [address] [place] Eosinophils (Bld) [#/Vol] 0.20 10*3/uL Normal <0.46 [facility] Comment on above: Order Comment: Speci men Type: BLOOD SPECIMEN Ordering Facility: [facility] Address: [address] [place] [address] Performed By: #### 3 4528-0 #### [facility] CLIA [id number] [address] [place] [address] [place] Eosinophils/100 WBC (Bld) 2.7 % Normal [facility] Comment on above: Order Comment: Speci men Type: BLOOD SPECIMEN Ordering Facility: [facility] Address: [address] [place], [place] [address] Performed By: #### 3 4528-0 #### [facility] CLIA [id number] [address] [place] [address] [place] Erythrocyte distribution width (RBC) [Ratio] 12.3 % Normal 11.5-15.0 [facility] Comment on above: Order Comment: Speci men Type: BLOOD SPECIMEN Ordering Facility: [facility] Address: [address] Performed By: #### 3 4528-0 #### [facility] CLIA [id number] [address] [place] [address] [place] Hematocrit (Bld) [Volume fraction] 44.9 % Normal 36.0-46.0 [facility] Comment on above: Order Comment: Speci men Type: BLOOD SPECIMEN Ordering Facility: [facility] Address: [address] [place], [place] [address] Performed By: #### 3 4528-0 #### [facility] CLIA [id number] [address] [place] [address] [place] Hemoglobin (Bld) [Mass/Vol] 14.6 g/dL Normal 11.5-15.5 [facility] Comment on above: Order Comment: Speci men Type: BLOOD SPECIMEN Ordering Facility: [facility] Address: [address] Performed By: #### 3 4528-0 #### [facility] CLIA [id number] [address] [place] [address] [place] Immature granulocytes (Bld) [#/Vol] 0.03 10*3/uL Normal <0.10 [facility] Comment on above: Order Comment: Speci men Type: BLOOD SPECIMEN Ordering Facility: [facility] Address: [address] [place], [place] [address] Performed By: #### 3 4528-0 #### [facility] CLIA [id number] [address] [place] [address] [place] Immature granulocytes/100 WBC (Bld) 0.4 % Normal [facility] Comment on above: Order Comment: Speci men Type: BLOOD SPECIMEN Ordering Facility: [facility] Address: [address] [place] [address] Performed By: #### 3 4528-0 #### [facility] CLIA [id number] [address] [place] [address] [place] Lymphocytes (Bld) [#/Vol] 2.00 10*3/uL Normal 1.00-4.00 [facility] Comment on above: Order Comment: Speci men Type: BLOOD SPECIMEN Ordering Facility: [facility] Address: [address] [place] [address] Performed By: #### 3 4528-0 #### [facility] CLIA [id number] [address] STATES OF [facility] Lymphocytes/100 WBC (Bld) 27.2 % Normal [facility] Comment on above: Order Comment: Speci men Type: BLOOD SPECIMEN Ordering Facility: [facility] Address: [address] [place] [address] Performed By: #### 3 4528-0 #### [facility] CLIA [id number] [address] [place] [address] [place] MCH (RBC) [Entitic mass] 31.5 pg Normal 26.0-34.0 [facility] Comment on above: Order Comment: Speci men Type: BLOOD SPECIMEN Ordering Facility: [facility] Address: [address] [place] [address] Performed By: #### 3 4528-0 #### [facility] CLIA [id number] [address] [place] [address] [place] MCHC (RBC) [Mass/Vol] 32.5 g/dL Normal 30.5-36.0 [facility] Comment on above: Order Comment: Speci men Type: BLOOD SPECIMEN Ordering Facility: [facility] Address: [address] Performed By: #### 3 4528-0 #### [facility] CLIA [id number] [address] [place] [address] [place] MCV (RBC) [Entitic vol] 97.0 fL Normal 80.0-100.0 [facility] Comment on above: Order Comment: Speci men Type: BLOOD SPECIMEN Ordering Facility: [facility] Address: [address] Performed By: #### 3 4528-0 #### [facility] CLIA [id number] [address] [place] [address] [place] Monocytes (Bld) [#/Vol] 0.35 10*3/uL Normal <0.87 [facility] Comment on above: Order Comment: Speci men Type: BLOOD SPECIMEN Ordering Facility: [facility] Address: [address] Performed By: #### 3 4528-0 #### [facility] CLIA [id number] [address] [place] [address] [place] Monocytes/100 WBC (Bld) 4.8 % Normal [facility] Comment on above: Order Comment: Speci men Type: BLOOD SPECIMEN Ordering Facility: [facility] Address: [address] [place] [address] Performed By: #### 3 4528-0 #### [facility] CLIA [id number] [address] [place] [address] [place] Neutrophils (Bld) [#/Vol] 4.69 10*3/uL Normal 1.45-7.50 [facility] Comment on above: Order Comment: Speci men Type: BLOOD SPECIMEN Ordering Facility: [facility] Address: [address] Performed By: #### 3 4528-0 #### [facility] CLIA [id number] [address] [place] [address] [place] Neutrophils/100 WBC (Bld) 63.7 % Normal [facility] Comment on above: Order Comment: Speci men Type: BLOOD SPECIMEN Ordering Facility: [facility] Address: [address] [place], [place] [address] Performed By: #### 3 4528-0 #### [facility] CLIA [id number] [address] [place] [address] [place] Nucleated RBC (Bld) [#/Vol] 10*3/uL Normal <0.01 [facility] Comment on above: Order Comment: Speci men Type: BLOOD SPECIMEN Ordering Facility: [facility] Address: [address] [place] [address] Performed By: #### 3 4528-0 #### [facility] CLIA [id number] [address] [place] [address] [place] Nucleated RBC/100 WBC (Bld) [Ratio] 0.0 /100 WBC Normal [facility] Comment on above: Order Comment: Speci men Type: BLOOD SPECIMEN Ordering Facility: [facility] Address: [address] [place], [place] [address] Performed By: #### 3 4528-0 #### [facility] CLIA [id number] [address] [place] [address] [place] Platelet mean volume (Bld) [Entitic vol] 9.8 fL Normal 9.0-12.7 [facility] Comment on above: Order Comment: Speci men Type: BLOOD SPECIMEN Ordering Facility: [facility] Address: [address] [place], [place] [address] Performed By: #### 3 4528-0 #### [facility] CLIA [id number] [address] [place] [address] [place] Platelets (Bld) [#/Vol] 356 10*3/uL Normal 150-400 [facility] Comment on above: Order Comment: Speci men Type: BLOOD SPECIMEN Ordering Facility: [facility] Address: [address] [place] [address] Performed By: #### 3 4528-0 #### [facility] CLIA [id number] [address] [place] [address] [place] RBC (Bld) [#/Vol] 4.63 10*6/uL Normal 3.90-5.20 [facility] Comment on above: Order Comment: Speci men Type: BLOOD SPECIMEN Ordering Facility: [facility] Address: [address] [place], [place] [address] Performed By: #### 3 4528-0 #### [facility] CLIA [id number] [address] [place] [address] [place] WBC (Bld) [#/Vol] 7.36 10*3/uL Normal 3.70-11.00 [facility] Comment on above: Order Comment: Speci men Type: BLOOD SPECIMEN Ordering Facility: [facility] Address: [address] [place], [place] [address] Performed By: #### 3 4528-0 #### [facility] CLIA [id number] [address] [place] [address] [place] Comprehensive metabolic 2000 panelon 09-05-2023 Albumin [Mass/Vol] 4.7 g/dL Normal 3.9-4.9 [facility] Comment on above: Order Comment: Speci men Type: BLOOD SPECIMENOrdering Facility: [facility] Address: [address] [place] [address] Performed By: #### 2 4323-8 ####[facility] [id number] [place] [address] [place] ALP [Catalytic activity/Vol] 57 U/L Normal 34-123 [facility] Comment on above: Order Comment: Speci men Type: BLOOD SPECIMENOrdering Facility: [facility] Address: [address] [place] [id number] Performed By: #### 2 4323-8 ####[facility] [id number] [place] [address] [place] ALT [Catalytic activity/Vol] 20 U/L Normal 7-38 [facility] Comment on above: Order Comment: Speci men Type: BLOOD SPECIMENOrdering Facility: [facility] Address: [address] [place] [address] Performed By: #### 2 4323-8 ####[facility] [id number] [place] [address] [place] Anion gap [Moles/Vol] 10 mmol/L Normal 9-18 [facility] Comment on above: Order Comment: Speci men Type: BLOOD SPECIMENOrdering Facility: [facility] Address: [address] [place] [address] Performed By: #### 2 4323-8 ####[facility] [id number] [place] [address] [place] AST [Catalytic activity/Vol] 21 U/L Normal 13-35 [facility] Comment on above: Order Comment: Speci men Type: BLOOD SPECIMENOrdering Facility: [facility] Address: [address] [place] [id number] Performed By: #### 2 4323-8 ####[facility] [id number] [place] [id number] [place] Bilirubin [Mass/Vol] 0.4 mg/dL Normal 0.2-1.3 [facility] Comment on above: Order Comment: Speci men Type: BLOOD SPECIMENOrdering Facility: [facility] Address: [address] [place], [place] [address] Performed By: #### 2 4323-8 ####[facility] [id number] [place] [address] [place] Calcium [Mass/Vol] 10.3 mg/dL High 8.5-10.2 [facility] Comment on above: Order Comment: Speci men Type: BLOOD SPECIMENOrdering Facility: [facility] Address: [address] [place] [address] Performed By: #### 2 4323-8 ####[facility] [id number] [place] [address] [place] Chloride [Moles/Vol] 104 mmol/L Normal 97-105 [facility] Comment on above: Order Comment: Speci men Type: BLOOD SPECIMENOrdering Facility: [facility] Address: [address] [place] [address] Performed By: #### 2 4323-8 ####[facility] [id number] [place] [address] [place] CO2 [Moles/Vol] 25 mmol/L Normal 22-30 [facility] Comment on above: Order Comment: Speci men Type: BLOOD SPECIMENOrdering Facility: [facility] Address: [address] [place] [address] Performed By: #### 2 4323-8 ####[facility] [id number] [place] [address] [place] Creatinine [Mass/Vol] 0.66 mg/dL Normal 0.58-0.96 [facility] Comment on above: Order Comment: Speci men Type: BLOOD SPECIMENOrdering Facility: [facility] Address: [address] [place] [address] Performed By: #### 2 4323-8 ####[facility] [id number] [place] [address] [place] Creatinine and Glomerular filtration rate.predicted panel (S/P/Bld) 123 mL/min/1.73m??? Normal >=60 [facility] Comment on above: Order Comment: Speci men Type: BLOOD SPECIMENOrdering Facility: [facility] Address: [address] [place] [address] Result Comment: Ebony mated Glomerular Filtration Rate [...] actual GFR. Performed By: #### 2 4323-8 ####[facility] [id number] [place] [address] [place] Glucose [Mass/Vol] 105 mg/dL High 74-99 [facility] Comment on above: Order Comment: Jim etienne Type: BLOOD SPECIMENOrdering Facility: [facility] Address: [address] [place] [address] Result Comment: The [place] [employer] (ADA) provides guidance for cutoff [...] Standards of Medical Care in Diabetes 2016, [place] [employer]. Diabetes Care. 2016.39(Suppl 1). Performed By: #### 2 4323-8 ####[facility] [facility] LABIA [id number] [place] [address] [place] Potassium [Moles/Vol] 4.7 mmol/L Normal 3.7-5.1 [facility] Comment on above: Order Comment: Jim etienne Type: BLOOD SPECIMENOrdering Facility: [facility] Address: [address] [place] [address] Performed By: #### 2 4323-8 ####[facility] LABCLIA [id number] [place] [address] [place] Protein [Mass/Vol] 8.0 g/dL Normal 6.3-8.0 [facility] Comment on above: Order Comment: Speci men Type: BLOOD SPECIMENOrdering Facility: [facility] Address: [address] [place] [address] Performed By: #### 2 4323-8 ####[facility] LABCLIA [id number] [place] [address] [place] Sodium [Moles/Vol] 139 mmol/L Normal 136-144 [facility] Comment on above: Order Comment: Speci men Type: BLOOD SPECIMENOrdering Facility: [facility] Address: [address] [place] [address] Performed By: #### 2 4323-8 ####[facility] LABCLIA [id number] [place] [address] [place] Urea nitrogen [Mass/Vol] 7 mg/dL Normal 7-21 [facility] Comment on above: Order Comment: Speci men Type: BLOOD SPECIMENOrdering Facility: [facility] Address: [address] [place] [address] Performed By: #### 2 4323-8 ####[facility] LABCLIA [id number] [place] [address] [place] HISTORY PHYSICALon HISTORY PHYSICAL HNO ID: [id number] Author: SHIV HOLMAN MD Service: Radiology Author [...] September 05, 2023 TIME: 4:30 PM Normal [facility] IR TRANSJUG LIVER BX W/PRESS on 09-05-2023 IR TRANSJUG LIVER BX W/PRESS * * *Final Report* * * DATE OF EXAM: Sep 05 2023 5:37PM [facility] 0808 - IR TRANSJUG LIVER BX [...] performed by the attending radiologist, without an farm assistant. The attending radiologist performed the following procedural activities: Entire procedure IMPRESSION: TRANSJUGULAR LIVER BIOPSY OBTAINED. THE CORRECTED (more content not included)... Normal [facility] NURSING PROGon 09-05-2023 NURSING PROG HNO ID: [id number] Author: LORI VAZQUEZ RN Service: ? Author Type: Registered Nurse Type: Nursing Progress Note Filed: 09/05/2023 19:56 Note Text: 1939 Dr. Kern at bedside to assess pt. Abd soft, no c/o pain. Ok to d/c at 1999. Lori Vazquez RN Normal [facility] PT EDon 09-05-2023 PT ED HNO ID: [id number] Author: ANISHA MASON RN Service: Nursing Author [...] RN In Department: HOSP MAIN FB36 Normal [facility] PT panel Coag (PPP)on 2023 INR Coag (PPP) [Relative time] 1.0 {INR} Normal 0.9-1.3 [facility] Comment on above: Order Comment: Speci men Type: BLOOD SPECIMEN [facility] Address: [address] [place] [id number] Result Comment: Adrienne min K Antagonist (VKA) Therapeutic Range: INR 2 to 3 (Target INR of 2.5) Note: For patients treated with VKA drugs, such as warfarin, the [employer] 2012 Guideline recommends [...] Chest 2012, 141:7S-47S Mamadou RA, et al. [facility] 2017, 70: 252-289 Performed By: #### 3 4528-0 #### [facility] [id number] [address] [place] [address] [place] PT Coag (PPP) [Time] 10.9 s Normal 9.7-13.0 [facility] Comment on above: Order Comment: Speci men Type: BLOOD SPECIMEN [facility] Address: [address] [place] [address] Performed By: #### 3 4528-0 #### [facility] [id number] [address] [place] [address] [place] NURSING PROGon 08-29-2023 NURSING PROG HNO ID: [id number] Author: MARSHAL POZO RN Service: Nursing Author Type: Registered Nurse Type: Nursing Progress Note Filed: 08/29/2023 10:50 Note Text: Pre-procedure instructions: Contacted Rica and xuan apptAngel for TJL Biopsy scheduled on September 05, at [facility]. I will wait while you get [...] be drawn prior to 09/05 at any [facility] Lab. If the labs are drawn same day as procedure, please report to J1-4 or S-15, 1 hour prior to arrival time to ensure they are resulted by your scheduled start time. Arrival: Please bring your Photo ID and Insurance Card. A general consent may need to be signed. Arrival at 1:45pm to desk QB-1 ([facility]) and check in for your procedure. Milk Wagon Driver/Transportation: How will you be arriving for your procedure? Private car. If you will be arriving at [facility] via ambulance or public transportation, please call to discuss. You will need a responsible adult to accompany you to and from the procedure. Your long haul truck driver is required to stay with you until you are taken into the Procedure room. If you develop any of the following symptoms before your procedure, please call [phone]. Chills, joint pain, rash, sore throat, cough, [...] discuss. Written instructions provided to patient via [employer] If you have any questions please call [phone] ___ Normal [facility] Uzma 08-13-2023 STACI Telephone (GeneroUAAdventEnna) -------- RICA STOUT ([id number]) 1995 F Date Time Provider Department 08/13/23 [...] Encounter Status:Closed by JOEL NOE on 08/13/23 [facility] Pete 08-08-2023 CNOV Office Visit (PATRICK ) -------- RICA STOUT ([id number]) 1995 F Date Time Provider Department 08/08/23 [...] Araujo CNP, Patient's Name: Rica Stout [address] [place] [id number] Accompanied by: mother This consult was requested for my medical opinion regarding the rheumatologic evaluation of the patient's rash/+PAT problems, and my final recommendations will be communicated to the requesting health care provider by way of the shared medical record for internal providers or letter via the [employer] for external providers. August 08, [...] showed vascular insufficiency 07/09/23 saw cardiology and Supervisor [employer] for palpitations/tachycardia (since 2022) Wore ekg monitor Pain worse in feet, numb fingers, [...] no Dactylitis: no H/o precedent/frequent infection(s): no Enthesopathy/Pond Eddy's/h eel/plantar tenderness: no Skin thickening, psoriasis, photosensitivity, [...] liver function tests for a few years NEURODIAGNOSTIC TECHNICIAN/PNS/sz/cva/cancer disease: no HEME-Cytopenias/LAD/Clot s: no Fevers: [...] other than HPI. PATIENT REPORTS: Cardiac stress test:ekg monitor Breast exam:negative Pap exam: normal, last [...] HTN, a.fib;children/sibli (more content not included)... Normal [facility] NURSING PROGon 07-23-2023 NURSING PROG HNO ID: [id number] Author: Dipti Garza RN Service: Nursing Author Type: Registered Nurse Type: Nursing Progress Note Filed: 07/23/2023 3:49 PM Note Text: Pre-procedure instructions: Contacted Rica and confirmed appt. for transjugular liver biopsy scheduled on Saturday, 07/30, at [facility]. I will wait while you get [...] be drawn prior to 07/30 at any [facility] Lab. If the labs are drawn same day as procedure, please report to J1-4 or S-15, 3 hours prior to procedure start time (11:30 AM) to ensure they are resulted by your scheduled start time. Arrival: Please bring your Photo ID and Insurance Card. A general consent may need to be signed. Arrival at 1:00 PM to desk QB-1 ([facility]) and check in for your procedure. Milk Wagon Driver/Transportation: How will you be arriving for your procedure? Private car. If you will be arriving at [facility] via ambulance or public transportation, please call to discuss. You will need a responsible adult to accompany you to and from the procedure. Your long haul truck driver is required to stay with you until you are taken into the Procedure room. If you develop any of the following symptoms before your procedure, please call [phone]. Chills, joint pain, rash, sore throat, cough, [...] discuss. Written instructions provided to patient via [employer] If you have any questions please call [phone] ___ Normal [facility] Provider Letteron 07-18-2023 Provider Letter (Inserted Image. Mercedes ble to display) July 18, 2023 RCIA STOUT [address] [place] [address] : 1995 Dear Rica, During review of your medical record we noticed that a follow up appointment was not scheduled. We have attempted to reach you to schedule a appointment with [facility] [employer] [employer] [facility] [facility]. Please call our office today to schedule this appointment. Sincerely, Alto Piute [employer] [facility] [phone] [facility] Office Visiton 07-09-2023 Follow-up visit [id number] Louis Stout 1995 F Date Provider Department Center 07/09/2023 NETTIE MARTE Family History Problem Relation Age of Onset Coronary artery disease Maternal Grandmother Peripheral vascular disease Maternal Grandmother Hypertension Paternal Grandmother Atrial fibrillation Paternal Grandmother Family Status - Relation Status Age at Maternal Grandmother Paternal Grandmother Level of Service:81709 PA OFFICE/OUTPATIENT NEW MODERATE MDM 45 MINUTES Normal [facility] 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 It has not been cleared or approved by the Food and Drug Administration. Performed at: - [facility] [address] [place], [place] [id number] Ivory Carver: Breezy Jones PhD, Phone: [phone] PERFORMED BY: [place] [address] PATHOLOGIST TROUBLE DISPATCHER RUIZ CLIFTON M.D. Performed By: #### C REAT, ESR, CRP, HEPATIC, CK, CBC, MISC LAB #### [facility] [address] [place] [address] [place] #### ANTI-KU AB, MITOM2, CH50, PAT, RNA POLYMR, C3, C4 #### [facility] , IgA [Mass/volume] in Serum o r PlasmaOrdered By: Jane Tracey on 07-03-2023 IgA [Mass/Vol] 473 mg/dL 87-352 [facility] IgG [Mass/volume] in Serum o r PlasmaOrdered By: lilia Tracey on 07-03-2023 IgG [Mass/Vol] 1101 mg/dL 586-1602 [facility] IgM [Mass/volume] in Serum o r PlasmaOrdered By: lilia Tracey on 07-03-2023 IgM [Mass/Vol] 315 mg/dL 26-217 [facility] Comment on above: Performed at: CB - [facility] [id number] [place], [place] [id number] Director: Breezy Jones PhD, Phone: [phone] Immunofixation,Serumon 07-03 Immunofixation, Serum Normal . [facility] Comment on above: Result Comment: No m onoclonality detected. Performed By: #### C REAT, ESR, CRP, HEPATIC, CK, CBC, MISC LAB #### [facility] [address] [place] [address] [place] #### ANTI-KU AB, MITOM2, CH50, PAT, RNA POLYMR, C3, C4 #### [facility] , Immunoglobulin A, Serum 473 mg/dL High 87-352 [facility] Comment on above: Performed By: #### C REAT, ESR, CRP, HEPATIC, CK, CBC, MISC LAB #### [facility] [address] [place] [address] [place] #### ANTI-KU AB, MITOM2, CH50, PAT, RNA POLYMR, C3, C4 #### [facility] , Immunoglobulin G 1101 mg/dL Normal 586-1602 [facility] Comment on above: Performed By: #### C REAT, ESR, CRP, HEPATIC, CK, CBC, MISC LAB #### [facility] [address] [place] [address] #### ANTI-KU AB, MITOM2, CH50, PAT, RNA POLYMR, C3, C4 #### [facility] , Immunoglobulin M, Serum 315 mg/dL High 26-217 [facility] Comment on above: Result Comment: Perf ormed at: - [facility] [place] [id number] Ivory Carver: Breezy Jones PhD, Phone: [phone] Performed By: #### C REAT, ESR, CRP, HEPATIC, CK, CBC, MISC LAB #### [facility] [address] [place] [address] [place] #### ANTI-KU AB, MITOM2, CH50, PAT, RNA POLYMR, C3, C4 #### [facility] , No Panel InformationOrdered By: Jane Tracey on 07-03-2023 Serum Immunofixation See comment . [facility] Comment on above: No monoclonality det ected. Whole Blood Zinc 606 ug/dL 440-860 [facility] Comment on above: This test was develo ped and its performance characteristicsdetermined by [facility]. It has not been cleared orapproved by the Food and Drug Administration.Performed at: [address] [id number] Director: Lisa Ramos MD, Phone: [phone] Serum cryoglobulin detection Ordered By: Jane Tracey on 07-03-2023 Cryoglobulin Ql (S) See comment None detected [facility] Comment on above: None Detected at 72 hoursThis test was developed and its performance characteristicsdetermined by [facility]. It has not been cleared orapproved by the Food and Drug Administration.Performed at: [address] [id number] Director: Breezy Jones PhD, Phone: [phone] Zinc, Whole Bloodon 07-03-20 23 Zinc, Whole Blood 606 ug/dL Normal 440-860 [facility] Comment on above: Result Comment: This test was developed and its performance characteristics determined by [facility]. It has not been cleared or approved by the Food and Drug Administration. Performed at: [facility] [address] [id number] Ivory Carver: Lisa Ramos MD, Phone: [phone] Performed By: #### C REAT, ESR, CRP, HEPATIC, CK, CBC, MISC LAB #### [address] #### ANTI-KU AB, MITOM2, CH50, PAT, RNA POLYMR, C3, C4 #### [facility] , Activated partial thrombopla stin time (aPTT) in platelet poor plasma by coagulation aOrdered By: Jane Tracey on 06-12-2023 aPTT Coag (PPP) [Time] 28.5 s 25.1-36.[address] [facility] Comment on above: A hematocrit value g reater than 55% may lead to inaccurate results in coagulation testing. Patients having hematocrit values >55% require a special collection tube for coagulation studies. Please contact the laboratory at [phone] guided bone marrow bx/asp iron 06-12-2023 CT guided bone marrow bx/aspir [facility] [place] [address] CT Scan Report Signed Patient: Rica Stout MR#: [id number] : 1995 Acct:[id number] Age/Sex: 27 / F ADM Date: 06/12/23 Loc: CT Room: Type: [facility] Attending Dr: Jane Tracey MD Copies to: Jane Tracey MD Ordering Provider: Jane Tracey MD Date of Service: 06/12/23 CT/CT guided needle placement: bone marrow biopsy ([id number]) CT/CT guided bone marrow bx/aspir: . CT [...] local anesthesia. Utilizing CT guidance, an 11-gauge Space[employer] biopsy needle was advanced into the right [...] Barahona Jr., Cristel06/12/2023 1:18 PM Dictation Location: [place] [address] Transcribed By: [facility] 06/12/231317 Dictated By: Marc Barahona Jr, DO 06/12/231317 Signed By: 06/12/231317 Normal [facility] Coagulation Profileon 2022 aPTT Coag (Bld) [Time] 28.5 s Normal 25.1-36.5 Th e [facility] Comment on above: Order Comment: NEED FOR CT GUIDED BIOPSY Result Comment: A he matocrit value greater than 55% may lead to inaccurate results in coagulation testing. Patients having hematocrit values >55% require a special collection tube for coagulation studies. Please contact the laboratory at [phone] for redraw instructions. PERFORMED BY: [address] [place] [address] PATHOLOGIST TROUBLE DISPATCHER RUIZ CLIFTON M.D. Performed By: #### C REAT, ESR, CRP, HEPATIC, CK, CBC, [facility] #### [address] #### ANTI-KU AB, MITOM2, CH50, PAT, RNA POLYMR, C3, C4 #### [facility] , INR in Platelet poor plasma by Coagulation assayOrdered By: Jane Tracey on 06-12-2023 INR Coag (PPP) [Relative time] 1.1 {INR} Normal [facility] Comment on above: INR Therapeutic Rang [...] C REAT, ESR, CRP, HEPATIC, CK, CBC, [facility] #### [place] [id number] [place] #### ANTI-KU AB, MITOM2, CH50, PAT, RNA POLYMR, C3, C4 #### [facility] , Antione 06-12-2023 L ---- Specimen: [id number] Received: 06/12/23 Status: VIKASH Hess Num: [id number] Spec Type: Bone Marro Subm Dr: Marc [...] Account Attending Physician Rica Stout 27/F CT [id number] [facility] Roger Tracey MD SPEC NUM: [id number] RECD: 06/12/23 STATUS: VIKASH HESS NUM: [id number] LAURIE: 06/12/23- SUBM DR: Marc Barahona Jr, DO ENTERED: 06/12/[address] [facility] [address]: Jane Tracey MD SPEC TYPE: Bone [...] [id number] Received: 06/12/23 Status: VIKASH Hess Num: [id number] Spec Type: Bone Marro Subm Dr: Marc Barahona Jr, DO Tissues: A Bone Marrow Aspirate (Clot) (RT ILIAC) B Bone Marrow Biopsy/Core (RT ILIAC) Procedures: Reticulum I, Peripheral Smr/2, Iron/3, HE/4, Gross/Micro L4/2, Bm Smear/2, CD138/2, CD20, CD3, CD31, CD34, CD68, E CADHERIN, Decalcification, PAS - Hemat, Bone Marrow TP, GIEMSA STN/5, SMEARS Patient: Rica Stout [id number] (Continued) Specimen: [id number] Received: 06/12/23 (Continued) Pathological Diagnosis (Continued) Signed (signature on file) Dylan Call MD 06/22/23 1844 Specimen: BM Received: 06/12/23 Status: VIKASH Hess Num: [id number] Spec Type: Bone Marro Subm Dr: Marc Barahona Jr, DO Tissues: A Bone Marrow Aspirate (Clot) (RT ILIAC) B Bone Marrow Biopsy/Core (RT ILIAC) Procedures: Reticulum I, Peripheral Smr/2, Iron/3, HE/4, Gross/Micro L4/2, Bm Smear/2, CD138/2, CD20, CD3, CD31, CD34, CD68, E CADHERIN, Decalcification, PAS - Hemat, Bone Marrow TP, GIEMSA STN/5, SMEARS Patient: GabrielajessicahellenRica [id number] (Continued) Specimen: Received: 06/12/23 (Continued) Pathological Diagnosis (Continued) - [...] content not included)... Normal [facility] Platelets [#/volume] in Bloo d by Automated countOrdered By: Jane Tracey on 06-12-2023 Platelets (Bld) [#/Vol] 269 10*3/uL Normal 150-450 [facility] Comment on above: Result Comment: PERF ORMED BY: [facility] [address] [place] [address] PATHOLOGIST TROUBLE DISPATCHER RUIZ CLIFTON M.D. Performed By: #### C REAT, ESR, CRP, HEPATIC, CK, CBC, [facility] #### [facility] [address] #### ANTI-KU AB, MITOM2, CH50, PAT, RNA POLYMR, C3, C4 #### [facility] , Prothrombin time (PT)Ordered By: Jane Feldermaranda on 06-12-2023 PT Coag (PPP) [Time] 13.0 s High 9.0-12.9 [facility] Comment on above: A hematocrit value g reater than 55% may lead to inaccurate results in coagulation testing. Patients having hematocrit values >55% require a special collection tube for coagulation studies. Please contact the laboratory at [phone] for redraw instructions. Order Comment: NEED FOR CT GUIDED BIOPSY Result Comment: A he matocrit value greater than 55% may lead to inaccurate results in coagulation testing. Patients having hematocrit values >55% require a special collection tube for coagulation studies. Please contact the laboratory at [phone] for redraw instructions. Performed By: #### C REAT, ESR, CRP, HEPATIC, CK, CBC, MISC LAB #### [facility] [address] [place] [id number] [place] #### ANTI-KU AB, MITOM2, CH50, PAT, RNA POLYMR, C3, C4 #### [facility] , Office Visiton 06-10-2023 Follow-up visit [id number] Louis Stout 1995 F Date Provider Department Center 06/10/2023 [facility]THA FLORES SANT[facility] Family History Problem Relation Age of Onset Coronary artery disease Maternal Grandmother Peripheral vascular disease Maternal Grandmother Hypertension Paternal Grandmother Atrial fibrillation Paternal Grandmother Family Status - Relation Status Age at Maternal Grandmother Paternal Grandmother Level of Service:70607 PA OFFICE/OUTPATIENT ESTABLISHED MOD MDM 30-39 MIN Normal [facility] PAT Antinuclear Antibodieson 05-30-2023 Antinuclear Abs, IFA Positive Critically abnormal . [facility] Comment on above: Result Comment: Nega tive <1:80 Borderline 1:80 Positive >1:80 Performed By: #### C REAT, ESR, CRP, HEPATIC, CK, CBC, MISC LAB #### [address] #### ANTI-KU AB, MITOM2, CH50, PAT, RNA POLYMR, C3, C4 #### [facility] , Note 1 Normal . [facility] Comment on above: Result Comment: Holly danielle Potential Disease Association Homogeneous Systemic Lupus Erythematosus, Drug Induced Systemic Lupus Erythematosus, Chronic Autoimmune hepatitis, Juvenile Idiopathic Arthritis Speckled Sjogren Syndrome, Systemic Lupus Erythematosus, Subacute Cutaneous Lupus, Lupus, Congenital Heart Block, Mixed Connective Tissue Disease, Scleroderma-diffuse, Scleroderma-Autoimmune Myositis Overlap Syndrome, Systemic Lupus Okuoixoeuhxxy-Bljdygteejk-Yivpgebzfc Myositis Overlap Syndrome, Systemic Autoimmune Rheumatic Disease, [...] Cytopenias, Linear Scleroderma, Antiphospholipid Syndrome Performed at: [facility] [id number] Ivory Carver: Breezy Jones PhD, Phone: [phone] Performed By: #### C REAT, ESR, CRP, HEPATIC, CK, CBC, MISC LAB #### [facility] [address] [place] [address] #### ANTI-KU AB, MITOM2, CH50, PAT, RNA POLYMR, C3, C4 #### [facility] , Speckled Pattern 1:160 High . [facility] Comment on above: Result Comment: [facility] nomenclature: AC-2,4,5,29 Performed By: #### C REAT, ESR, CRP, HEPATIC, CK, CBC, MISC LAB #### [facility] [address] [place] [address] [place] #### ANTI-KU AB, MITOM2, CH50, PAT, RNA POLYMR, C3, C4 #### [facility] , ANCA Profile (ANCA+MPO+PR3)o n 05-30-2023 Antimyeloperoxidase (MPO) Abs <0.2 Normal 0.0-0.9 [facility] Comment on above: Performed By: #### C REAT, ESR, CRP, HEPATIC, CK, CBC, MISC LAB #### [address] #### ANTI-KU AB, MITOM2, CH50, PAT, RNA POLYMR, C3, C4 #### [facility] , Atypical pANCA <1:20 Normal Neg:<1:20 [facility] Comment on above: Result Comment: The atypical pANCA pattern has been observed in a significant percentage of patients with ulcerative colitis, primary sclerosing cholangitis and autoimmune hepatitis. Performed at: - [facility] [id number] Ivory Carver: Lisa Ramos MD, Phone: [phone] Performed at: [facility] [id number] Ivory Carver: Breezy Jones PhD, Phone: [phone] Performed By: #### C REAT, ESR, CRP, HEPATIC, CK, CBC, MISC LAB #### [place] [address] [place] #### ANTI-KU AB, MITOM2, CH50, PAT, RNA POLYMR, C3, C4 #### [facility] , Cytoplasmic (C-ANCA) <1:20 Normal Neg:<1:20 [facility] Comment on above: Performed By: #### C REAT, ESR, CRP, HEPATIC, CK, CBC, MISC LAB #### [place] [address] [place] #### ANTI-KU AB, MITOM2, CH50, PAT, RNA POLYMR, C3, C4 #### [facility] , Perinuclear (P-ANCA) <1:20 Normal Neg:<1:20 [facility] Comment on above: Result Comment: The presence of positive fluorescence exhibiting P-ANCA or C-ANCA patterns alone is not specific for the diagnosis of Riri's Granulomatosis (WG) or microscopic polyangiitis. Decisions about treatment should not be based solely on ANCA IFA results. The International ANCA [employer] Consensus recommends follow up testing of positive sera with both PA- 3 and MPO-ANCA enzyme immunoassays. As many as 5% serum samples are positive only by EIA. Ref. AM J Clin Pathol 1999;111:507-513. Performed By: #### C REAT, ESR, CRP, HEPATIC, CK, CBC, MISC LAB #### [address] #### ANTI-KU AB, MITOM2, CH50, PAT, RNA POLYMR, C3, C4 #### [facility] , Proteinase 3 (PR3) Antibodies <0.2 Normal 0.0-0.9 [facility] Comment on above: Result Comment: PERF ORMED BY: [place] [address] PATHOLOGIST TROUBLE DISPATCHER RUIZ CLIFTON M.D. Performed By: #### C REAT, ESR, CRP, HEPATIC, CK, CBC, MISC LAB #### [address] #### ANTI-KU AB, MITOM2, CH50, PAT, RNA POLYMR, C3, C4 #### [facility] , Alanine aminotransferase [En zymatic activity/volume] in Serum or PlasmaOrdered By: Jane Tracey on 05-30-2023 ALT [Catalytic activity/Vol] 24 U/L Normal 7-52 [facility] Comment on above: Performed By: #### C REAT, ESR, CRP, HEPATIC, CK, CBC, MISC LAB #### [place] [address] [place] #### ANTI-KU AB, MITOM2, CH50, PAT, RNA POLYMR, C3, C4 #### [facility] , Albumin [Mass/volume] in Ser um or PlasmaOrdered By: Jane Tracey on 05-30-2023 Albumin [Mass/Vol] 4.1 g/dL Normal 2.9-4.4 [facility] Comment on above: Performed By: #### C REAT, ESR, CRP, HEPATIC, CK, CBC, MISC LAB #### [facility] [address] [place] [address] [place] #### ANTI-KU AB, MITOM2, CH50, PAT, RNA POLYMR, C3, C4 #### [facility] , Albumin [Mass/volume] in Ser um or Plasma by Bromocresol green (BCG) dye binding methoOrdered By: lilia Tracey on 05-30-2023 Albumin BCG dye [Mass/Vol] 5.2 g/dL 3.5-5.7 [facility] Alkaline phosphatase [Enzyma tic activity/volume] in Serum or PlasmaOrdered By: lilia Tracey on 05-30-2023 ALP [Catalytic activity/Vol] 115 U/L High 34-104 [facility] Comment on above: Performed By: #### C REAT, ESR, CRP, HEPATIC, CK, CBC, MISC LAB #### [place] [address] [place] #### ANTI-KU AB, MITOM2, CH50, PAT, RNA POLYMR, C3, C4 #### [facility] , Aspartate aminotransferase [ Enzymatic activity/volume] in Serum or PlasmaOrdered By: lilia Tracey on 05-30-2023 AST [Catalytic activity/Vol] 32 U/L Normal 13-39 [facility] Comment on above: Performed By: #### C REAT, ESR, CRP, HEPATIC, CK, CBC, MISC LAB #### [place] [address] [place] #### ANTI-KU AB, MITOM2, CH50, PAT, RNA POLYMR, C3, C4 #### [facility] , Atypical perinuclear antineu trophil cytoplasmic antibodies measurementOrdered By: Jane Tracey on 05-30-2023 Neutrophil cytoplasmic Ab.perinuclear.atypical IF (S) [Titer] <1:20 titer Neg:<1:20 [facility] Comment on above: The atypical pANCA p attern has been observed in asignificant percentage of patients with ulcerative colitis,primary sclerosing cholangitis and autoimmune hepatitis.Performed at: - [facility] [address] [id number] Director: Lisa Ramos MD, Phone: [phone] at: - [facility] [address] [id number] Director: Breezy Jones PhD, Phone: [phone] Automated basophil %Ordered By: Jane Tracey on 05-30-2023 Basophils/100 WBC (Bld) 1.5 % Normal . [facility] Comment on above: Performed By: #### C REAT, ESR, CRP, HEPATIC, CK, CBC, MISC LAB #### [facility] [address] [place] [address] #### ANTI-KU AB, MITOM2, CH50, PAT, RNA POLYMR, C3, C4 #### [facility] , Automated basophil countOrde red By: Jane Tracey on 05-30-2023 Basophils (Bld) [#/Vol] 0.2 10*3/uL Normal 0.0-0.2 [facility] Comment on above: Result Comment: PERF ORMED BY: [place] [address] PATHOLOGIST TROUBLE DISPATCHER RUIZ CLIFTON M.D. Performed By: #### C REAT, ESR, CRP, HEPATIC, CK, CBC, MISC LAB #### [facility] [address] [place] [address] [place] #### ANTI-KU AB, MITOM2, CH50, PAT, RNA POLYMR, C3, C4 #### [facility] , Automated blood monocyte cou ntOrdered By: lilia Tracey on 05-30-2023 Monocytes (Bld) [#/Vol] 0.2 10*3/uL Normal 0.0-0.8 [facility] Comment on above: Performed By: #### C REAT, ESR, CRP, HEPATIC, CK, CBC, MISC LAB #### [place] [address] [place] #### ANTI-KU AB, MITOM2, CH50, PAT, RNA POLYMR, C3, C4 #### [facility] , Automated eosinophil %Ordere d By: [facility] on 05-30-2023 Eosinophils/100 WBC (Bld) 0.9 % Normal . [facility] Comment on above: Performed By: #### C REAT, ESR, CRP, HEPATIC, CK, CBC, MISC LAB #### [address] #### ANTI-KU AB, MITOM2, CH50, PAT, RNA POLYMR, C3, C4 #### [facility] , Automated eosinophil countOr dered By: [facility] on 05-30-2023 Eosinophils (Bld) [#/Vol] 0.1 10*3/uL Normal 0.0-0.45 [facility] Comment on above: Performed By: #### C REAT, ESR, CRP, HEPATIC, CK, CBC, MISC LAB #### [place] [address] [place] #### ANTI-KU AB, MITOM2, CH50, PAT, RNA POLYMR, C3, C4 #### [facility] , Automated monocyte %Ordered By: [facility] on 05-30-2023 Monocytes/100 WBC (Bld) 2.2 % Normal . [facility] Comment on above: Performed By: #### C REAT, ESR, CRP, HEPATIC, CK, CBC, MISC LAB #### [place] [address] [place] #### ANTI-KU AB, MITOM2, CH50, PAT, RNA POLYMR, C3, C4 #### [facility] , Automated neutrophil %Ordere d By: Jane Tracey on 05-30-2023 Neutrophils/100 WBC (Bld) 66.7 % Normal . [facility] Comment on above: Performed By: #### C REAT, ESR, CRP, HEPATIC, CK, CBC, MISC LAB #### [facility] [address] [place] [address] [place] #### ANTI-KU AB, MITOM2, CH50, PAT, RNA POLYMR, C3, C4 #### [facility] , Bilirubin.total [Mass/volume ] in Serum or PlasmaOrdered By: Jane Tracey on 05-30-2023 Bilirubin [Mass/Vol] 0.5 mg/dL Normal 0.3-1.0 [facility] Comment on above: Performed By: #### C REAT, ESR, CRP, HEPATIC, CK, CBC, MISC LAB #### [facility] [address] [place] [address] [place] #### ANTI-KU AB, MITOM2, CH50, PAT, RNA POLYMR, C3, C4 #### [facility] , Blood lead detectionOrdered By: Jane Tracey on 05-30-2023 Lead Ql (Bld) <1.0 ug/dL 0.0-3.4 [facility] Comment on above: Testing performed by Inductively coupled plasma/MassSpectrometry.Analysis by inductively coupled plasma/massspectrometry (ICP/MS)This test was developed and its performance characteristicsdetermined by [employer]. It has not been cleared orapproved by the Food and Drug Administration. Environmental Exposure: WHO Recommendation <5.0 Occupational Exposure: OSHA Lead Std 40.0 OLIVE 30.0 Detection Limit = 1.0Performed at: [facility] [address] [id number] Director: Breezy Jones PhD, Phone: [phone] Calcium [Mass/volume] in Ser um or PlasmaOrdered By: Jane Tracey on 05-30-2023 Calcium [Mass/Vol] 10.4 mg/dL High 8.6-10.3 [facility] Comment on above: Performed By: #### C REAT, ESR, CRP, HEPATIC, CK, CBC, MISC LAB #### [address] #### ANTI-KU AB, MITOM2, CH50, PAT, RNA POLYMR, C3, C4 #### [facility] , Carbon dioxide, total [Moles /volume] in Serum or PlasmaOrdered By: lilia Condon on 05-30-2023 CO2 [Moles/Vol] 24.8 mmol/L Normal 21.0-31.0 [facility] Comment on above: Performed By: #### C REAT, ESR, CRP, HEPATIC, CK, CBC, MISC LAB #### [place] [address] [place] #### ANTI-KU AB, MITOM2, CH50, PAT, RNA POLYMR, C3, C4 #### [facility] , Chloride [Moles/volume] in S caitlyn or PlasmaOrdered By: lilia Tracey on 05-30-2023 Chloride [Moles/Vol] 99 mmol/L Normal 98-107 [facility] Comment on above: Performed By: #### C REAT, ESR, CRP, HEPATIC, CK, CBC, MISC LAB #### [place] [address] [place] #### ANTI-KU AB, MITOM2, CH50, PAT, RNA POLYMR, C3, C4 #### [facility] , Complete Blood Count Auto Di ffon 05-30-2023 Mean Corpuscular HGB Conc 34.2 g/dL Normal 32.0-35.0 [facility] Comment on above: Performed By: #### C REAT, ESR, CRP, HEPATIC, CK, CBC, MISC LAB #### [place] [address] [place] #### ANTI-KU AB, MITOM2, CH50, PAT, RNA POLYMR, C3, C4 #### [facility] , NRBC% 0.1 /100{WBC} Normal 0-0.5 [facility] Comment on above: Performed By: #### C REAT, ESR, CRP, HEPATIC, CK, CBC, MISC LAB #### [place] [address] [place] #### ANTI-KU AB, MITOM2, CH50, PAT, RNA POLYMR, C3, C4 #### [facility] , Comprehensive Metabolic Pane antione 05-30-2023 Albumin [Mass/Vol] 5.2 g/dL Normal 3.5-5.7 [facility] Comment on above: Performed By: #### C REAT, ESR, CRP, HEPATIC, CK, CBC, MISC LAB #### [place] [address] [place] #### ANTI-KU AB, MITOM2, CH50, PAT, RNA POLYMR, C3, C4 #### [facility] , Creatinine Clr Calc Pharmacy 108.91 Normal [facility] Comment on above: Performed By: #### C REAT, ESR, CRP, HEPATIC, CK, CBC, MISC LAB #### [place] [address] [place] #### ANTI-KU AB, MITOM2, CH50, PAT, RNA POLYMR, C3, C4 #### [facility] , GFR/1.73 sq M.predicted MDRD (S/P/Bld) [Vol rate/Area] mL/min/{1.73_m2} Normal [facility] Comment on above: Performed By: #### C REAT, ESR, CRP, HEPATIC, CK, CBC, MISC LAB #### [place] [address] [place] #### ANTI-KU AB, MITOM2, CH50, PAT, RNA POLYMR, C3, C4 #### [facility] , Copperon 05-30-2023 Copper 124 ug/dL Normal 80-158 [facility] Comment on above: Result Comment: This test was developed and its performance characteristics determined by [facility]. It has not been cleared or approved by the Food and Drug Administration. Detection Limit = 5 Performed at: [address] [id number] Ivory Carver: Lisa Ramos MD, Phone: [phone] Performed By: #### C REAT, ESR, CRP, HEPATIC, CK, CBC, [facility] #### [facility] [address] [place] [address] [place] #### ANTI-KU AB, MITOM2, CH50, PAT, RNA POLYMR, C3, C4 #### [facility] , Creatinine [Mass/volume] in Serum or PlasmaOrdered By: Jane Tracey on 05-30-2023 Creatinine [Mass/Vol] 0.67 mg/dL Normal 0.60-1.20 [facility] Comment on above: Performed By: #### C REAT, ESR, CRP, HEPATIC, CK, CBC, [facility] #### [facility] [address] [place] [address] [place] #### ANTI-KU AB, MITOM2, CH50, PAT, RNA POLYMR, C3, C4 #### [facility] , Cryoglobulin with Quant Refl exon 05-30-2023 Cryoglobulin, Ql, Serum Normal . T rosemary [facility] Comment on above: Result Comment: Test not performed. Insufficient specimen to perform or complete analysis. contacted your facility on 06-04-2023 This test was developed and its performance characteristics determined by [facility]. It has not been cleared or approved by the Food and Drug Administration. Performed By: #### C REAT, ESR, CRP, HEPATIC, CK, CBC, [facility] #### [facility] [address] [place] [address] [place] #### ANTI-KU AB, MITOM2, CH50, PAT, RNA POLYMR, C3, C4 #### [facility] , Erythrocyte distribution wid th [Ratio] by Automated countOrdered By: Jane Condon on 05-30-2023 Erythrocyte distribution width (RBC) [Ratio] 12.8 % Normal 11.9-15.3 [facility] Comment on above: Performed By: #### C REAT, ESR, CRP, HEPATIC, CK, CBC, MISC LAB #### [facility] [address] [place] [address] [place] #### ANTI-KU AB, MITOM2, CH50, PAT, RNA POLYMR, C3, C4 #### [facility] , Erythrocytes [#/volume] in B lood by Automated countOrdered By: Jane Tracey on 05-30-2023 RBC (Bld) [#/Vol] 5.00 10*6/uL Normal 3.60-5.00 [facility] Comment on above: Performed By: #### C REAT, ESR, CRP, HEPATIC, CK, CBC, MISC LAB #### [facility] [address] [place] [address] [place] #### ANTI-KU AB, MITOM2, CH50, PAT, RNA POLYMR, C3, C4 #### [facility] , Folate [Mass/volume] in Seru m or PlasmaOrdered By: Jane Tracey on 05-30-2023 Folate [Mass/Vol] 1.3 ng/mL >5.9 [facility] Comment on above: Folate reference ran ge: >5.9 ng/mlThe WHO technical consultation on folate and vitamin [id number] has determined that folate concentrations lessthan 4 ng/ml are considered deficient. Free K+L LT Chains, Qn, Son 05-30-2023 Free [place] Light Chains, S 20.9 mg/L High 3.3-19.4 [facility] Comment on above: Performed By: #### C REAT, ESR, CRP, HEPATIC, CK, CBC, MISC LAB #### [place] [address] [place] #### ANTI-KU AB, MITOM2, CH50, PAT, RNA POLYMR, C3, C4 #### [facility] , Free Lambda Light Chains, S 19.4 mg/L Normal 5.7-26.3 [facility] Comment on above: Performed By: #### C REAT, ESR, CRP, HEPATIC, CK, CBC, MISC LAB #### [facility] [address] [place] [address] [place] #### ANTI-KU AB, MITOM2, CH50, PAT, RNA POLYMR, C3, C4 #### [facility] , [place]/Lambda Ratio, S 1.08 Normal 0.26-1.65 [facility] Comment on above: Result Comment: Perf ormed at: CB - [facility] [address] [id number] Ivory Carver: Breezy Jones PhD, Phone: [phone] Performed By: #### C REAT, ESR, CRP, HEPATIC, CK, CBC, MISC LAB #### [place] [address] [place] #### ANTI-KU AB, MITOM2, CH50, PAT, RNA POLYMR, C3, C4 #### [facility] , Glucose [Mass/volume] in Ser um or PlasmaOrdered By: Jane Tracey on 05-30-2023 Glucose [Mass/Vol] 97 mg/dL Normal 70-100 [facility] Comment on above: ADA recommended refe rence rangeRandom Glucose Reference Range is dependent on time and content of last meal. Glucose of more than 200 mg/dL in a nonstressed, ambulatory subject supports the diagnosis of Diabetes Mellitus. Result Comment: [place] om Glucose Reference Range is dependent on time and content of last meal. Glucose of more than 200 mg/dL in a nonstressed, ambulatory subject supports the diagnosis of Diabetes Mellitus. ADA recommended reference range Performed By: #### C REAT, ESR, CRP, HEPATIC, CK, CBC, MISC LAB #### [place] [address] [place] #### ANTI-KU AB, MITOM2, CH50, PAT, RNA POLYMR, C3, C4 #### [facility] , HIV 1/O/2 Antigen/Antibodyon 05-30-2023 HIV Screen 4th Generation Non-Reactive Normal Non Reactive [facility] Comment on above: Result Comment: HIV Negative HIV-1/HIV-2 antibodies and HIV-1 p24 antigen were NOT detected. There is no laboratory evidence of HIV infection. Performed at: [facility] [address] [place], [place] [id number] Ivory Carver: Breezy Jones PhD, Phone: [phone] Performed By: #### C REAT, ESR, CRP, HEPATIC, CK, CBC, MISC LAB #### [facility] [address] [place] [address] #### ANTI-KU AB, MITOM2, CH50, PAT, RNA POLYMR, C3, C4 #### [facility] , HIV 1 and HIV-2 antibody ass ay with HIV-1 p24 antigen detectionOrdered By: Jane Tracey on 05-30-2023 HIV 1+2 Ab+HIV1 p24 Ag IA Ql Non-Reactive Non Reactive [facility] Comment on above: HIV NegativeHIV-1/HI V-2 antibodies and HIV-1 p24 antigen were NOTdetected. There is no laboratory evidence of HIV infection.Performed at: [facility] [id number] Director: Breezy Jones PhD, Phone: [phone] Hematocrit [Volume Fraction] of Blood by Automated countOrdered By: Jane Condon on 05-30-2023 Hematocrit (Bld) [Volume fraction] 47.6 % High 34.0-46.4 [facility] Comment on above: Performed By: #### C REAT, ESR, CRP, HEPATIC, CK, CBC, MISC LAB #### [facility] [address] [place] [address] [place] #### ANTI-KU AB, MITOM2, CH50, PAT, RNA POLYMR, C3, C4 #### [facility] , Hemoglobin [Mass/volume] in BloodOrdered By: Jane Tracey on 05-30-2023 Hemoglobin (Bld) [Mass/Vol] 16.3 g/dL High 11.8-15.4 [facility] Comment on above: Performed By: #### C REAT, ESR, CRP, HEPATIC, CK, CBC, MISC LAB #### [address] #### ANTI-KU AB, MITOM2, CH50, PAT, RNA POLYMR, C3, C4 #### [facility] , Hepatitis B Core Antibody Ig Mon 05-30-2023 Hepatitis B Core Antibody IgM Negative Normal Negative [facility] Comment on above: Result Comment: Perf ormed at: - [facility] [address] [id number] Ivory Carver: Breezy Jones PhD, Phone: [phone] Performed By: #### C REAT, ESR, CRP, HEPATIC, CK, CBC, MISC LAB #### [address] #### ANTI-KU AB, MITOM2, CH50, PAT, RNA POLYMR, C3, C4 #### [facility] , Hepatitis B Surface Antibody on 05-30-2023 Hepatitis B Surface Antibody Reactive Normal . [facility] Comment on above: Result Comment: Non Reactive: Inconsistent with immunity, less than 10 mIU/mL Reactive: Consistent with immunity, greater than 9.9 mIU/mL Performed By: #### C REAT, ESR, CRP, HEPATIC, CK, CBC, MISC LAB #### [address] #### ANTI-KU AB, MITOM2, CH50, PAT, RNA POLYMR, C3, C4 #### [facility] , Hepatitis B Surface Antigeno n 05-30-2023 HBsAg Screen Negative Normal Negative [facility] Comment on above: Result Comment: PERF ORMED BY: [place] [address] PATHOLOGIST TROUBLE DISPATCHER RUIZ CLIFTON M.D. Performed By: #### C REAT, ESR, CRP, HEPATIC, CK, CBC, MISC LAB #### [place] [address] [place] #### ANTI-KU AB, MITOM2, CH50, PAT, RNA POLYMR, C3, C4 #### [facility] , Hepatitis B virus surface Ag [Presence] in Serum or Plasma by ImmunoassayOrdered By: Jane Tracey on 05-30-2023 HBV surface Ag IA Ql Negative Negative [facility] IgA [Mass/volume] in Serum o r PlasmaOrdered By: [facility] 05-30-2023 IgA [Mass/Vol] 539 mg/dL 87-352 [facility] IgG [Mass/volume] in Serum o r PlasmaOrdered By: [facility] Alexy on 05-30-2023 IgG [Mass/Vol] 1365 mg/dL [phone] [facility] IgM [Mass/volume] in Serum o r PlasmaOrdered By: lilia Tracey on 05-30-2023 IgM [Mass/Vol] 352 mg/dL 26-217 [facility] Comment on above: Performed at: [address] Director: Breezy Jones PhD, Phone: [phone] Immunofixation,Serumon 05-30 Immunofixation, Serum Normal . [facility] Comment on above: Result Comment: No m onoclonality detected. Performed By: #### C REAT, ESR, CRP, HEPATIC, CK, CBC, MISC LAB #### [facility] [address] [place] [address] [place] #### ANTI-KU AB, MITOM2, CH50, PAT, RNA POLYMR, C3, C4 #### [facility] , Immunoglobulin A, Serum 539 mg/dL High 87-352 [facility] Comment on above: Performed By: #### C REAT, ESR, CRP, HEPATIC, CK, CBC, MISC LAB #### [place] [address] [place] #### ANTI-KU AB, MITOM2, CH50, PAT, RNA POLYMR, C3, C4 #### [facility] , Immunoglobulin G 1365 mg/dL Normal [phone] [facility] Comment on above: Performed By: #### C REAT, ESR, CRP, HEPATIC, CK, CBC, MISC LAB #### [facility] [address] #### ANTI-KU AB, MITOM2, CH50, PAT, RNA POLYMR, C3, C4 #### [facility] , Immunoglobulin M, Serum 352 mg/dL High 26-217 [facility] Comment on above: Result Comment: Perf ormed at: - [facility] [address] [id number] Ivory Carver: Breezy Jones PhD, Phone: [phone] Performed By: #### C REAT, ESR, CRP, HEPATIC, CK, CBC, MISC LAB #### [facility] [address] [place] [address] #### ANTI-KU AB, MITOM2, CH50, PAT, RNA POLYMR, C3, C4 #### [facility] , Immunoglobulin light chains. kappa.free [Mass/volume] in SerumOrdered By: Jane Tracey on 05-30-2023 Immunoglobulin light chains.kappa.free (S) [Mass/Vol] 20.9 mg/L 3.3-19.4 [facility] Immunoglobulin light chains. kappa.free/Immunoglobulin light chains.lambda.free [MassOrdered By: Jane Tracey on 05-30-2023 Immunoglobulin light chains.kappa.free/Immun oglobulin light chains.lambda.free (S) [Mass ratio] 1.08 0.26-1.65 [facility] Comment on above: Performed at: - [facility] [address] [id number] Director: Breezy Jones PhD, Phone: [phone] Immunoglobulin light chains. lambda.free [Mass/volume] in Serum or PlasmaOrdered By: Jane Tracey on 05-30-2023 Immunoglobulin light chains.lambda.free [Mass/Vol] 19.4 mg/L 5.7-26.3 [facility] LDH Lactate Dehydrogenaseon 05-30-2023 LDH Lactate Dehydrogenase 219 U/L Normal 140-271 [facility] Comment on above: Performed By: #### C REAT, ESR, CRP, HEPATIC, CK, CBC, MISC LAB #### [facility] [address] [place] [address] #### ANTI-KU AB, MITOM2, CH50, PAT, RNA POLYMR, C3, C4 #### [facility] , Lactate dehydrogenase [Enzym atic activity/volume] in Serum or Plasma by Lactate to pyOrdered By: Jane Tracey on 05-30-2023 LDH Lactate to pyruvate reaction [Catalytic activity/Vol] 219 U/L 140-271 [facility] Lead, Adulton 05-30-2023 Lead-Adult Blood <1.0 Normal 0.0-3.4 [facility] Comment on above: Result Comment: Test ing performed by Inductively coupled plasma/Mass Spectrometry. Analysis by inductively coupled plasma/mass spectrometry (ICP/MS) This test was developed and its performance characteristics determined by [employer]. It has not been cleared or approved by the Food and Drug Administration. Environmental Exposure: WHO Recommendation <5.0 Occupational Exposure: OSHA Lead Std 40.0 OLIVE 30.0 Detection Limit = 1.0 Performed at: [address] [id number] Ivory Carver: Breezy Jones PhD, Phone: [phone] Performed By: #### C REAT, ESR, CRP, HEPATIC, CK, CBC, MISC LAB #### [place] [address] [place] #### ANTI-KU AB, MITOM2, CH50, PAT, RNA POLYMR, C3, C4 #### [facility] , Leukocytes [#/volume] correc antoine for nucleated erythrocytes in Blood by Automated counOrdered By: Jane Tracey on 05-30-2023 WBC corrected for nucl RBC Auto (Bld) [#/Vol] 10.1 10*3/uL 3.8-11.6 [facility] Leukocytes [#/volume] in Blo od by Automated countOrdered By: Jane Tracey on 05-30-2023 WBC (Bld) [#/Vol] 10.1 10*3/uL Normal 3.8-11.6 [facility] Comment on above: Performed By: #### C REAT, ESR, CRP, HEPATIC, CK, CBC, MISC LAB #### [facility] [address] [place] [address] [place] #### ANTI-KU AB, MITOM2, CH50, PAT, RNA POLYMR, C3, C4 #### [facility] , Lymphocytes [#/volume] in Bl ood by Automated countOrdered By: lilia Tracey on 05-30-2023 Lymphocytes (Bld) [#/Vol] 2.9 10*3/uL Normal 1.00-4.8 [facility] Comment on above: Performed By: #### C REAT, ESR, CRP, HEPATIC, CK, CBC, MISC LAB #### [facility] [address] [place] [address] [place] #### ANTI-KU AB, MITOM2, CH50, PAT, RNA POLYMR, C3, C4 #### [facility] , Lymphocytes/100 leukocytes i n Blood by Automated countOrdered By: lilia Tracey on 05-30-2023 Lymphocytes/100 WBC (Bld) 28.7 % Normal . [facility] Comment on above: Performed By: #### C REAT, ESR, CRP, HEPATIC, CK, CBC, MISC LAB #### [place] [address] [place] #### ANTI-KU AB, MITOM2, CH50, PAT, RNA POLYMR, C3, C4 #### [facility] , MCH [Entitic mass] by Automa antoine countOrdered By: lilia Tracey on 05-30-2023 MCH (RBC) [Entitic mass] 32.5 pg Normal 24.7-34.3 [facility] Comment on above: Performed By: #### C REAT, ESR, CRP, HEPATIC, CK, CBC, MISC LAB #### [facility] [address] [place] [address] [place] #### ANTI-KU AB, MITOM2, CH50, PAT, RNA POLYMR, C3, C4 #### [facility] , MCHC Auto (RBC) [Mass/Vol]Or dered By: Jane Tracey on 05-30-2023 MCHC (RBC) [Mass/Vol] 34.2 g/dL 32.0-35.0 [facility] MCV [Entitic volume] by Auto mated countOrdered By: Jane Tracey on 05-30-2023 MCV (RBC) [Entitic vol] 95.0 fL Normal 80-100 F [facility] Comment on above: Performed By: #### C REAT, ESR, CRP, HEPATIC, CK, CBC, MISC LAB #### [facility] [address] [place] [address] [place] #### ANTI-KU AB, MITOM2, CH50, PAT, RNA POLYMR, C3, C4 #### [facility] , Magnesium [Mass/volume] in S caitlyn or PlasmaOrdered By: Jane Tracey on 05-30-2023 Magnesium [Mass/Vol] 1.9 mg/dL Normal 1.9-2.7 [facility] Comment on above: Performed By: #### C REAT, ESR, CRP, HEPATIC, CK, CBC, MISC LAB #### [address] #### ANTI-KU AB, MITOM2, CH50, PAT, RNA POLYMR, C3, C4 #### [facility] , Methylmalonic Acidon 023 Methylmalonic Acid 99 Normal 0-378 [facility] Comment on above: Result Comment: This test was developed and its performance characteristics determined by [facility]. It has not been cleared or approved by the Food and Drug Administration. Performed at: [address] [id number] Ivory Carver: Lisa Ramos MD, Phone: [phone] Performed By: #### C REAT, ESR, CRP, HEPATIC, CK, CBC, [facility] #### [facility] [address] [place] [address] [place] #### ANTI-KU AB, MITOM2, CH50, PAT, RNA POLYMR, C3, C4 #### [facility] , Monocyte %Ordered By: Jane Ying on 05-30-2023 Monocyte % 124 ug/dL 80-158 [facility] Comment on above: This test was develo ped and its performance characteristicsdetermined by [employer]. It has not been cleared orapproved by the Food and Drug Administration. Detection Limit = 5Performed at: [facility] [address] [id number] Director: Lisa Ramos MD, Phone: [phone] Myeloperoxidase Ab [Units/vo lume] in Serum by ImmunoassayOrdered By: Jane Condon on 05-30-2023 Myeloperoxidase Ab IA Qn (S) <0.2 units 0.0-0.9 [facility] Neutrophils [#/volume] in Bl ood by Automated countOrdered By: Jane Tracey on 05-30-2023 Neutrophils (Bld) [#/Vol] 6.7 10*3/uL Normal 1.8-7.7 [facility] Comment on above: Performed By: #### C REAT, ESR, CRP, HEPATIC, CK, CBC, [facility] #### [facility] [address] [place] [address] [place] #### ANTI-KU AB, MITOM2, CH50, PAT, RNA POLYMR, C3, C4 #### [facility] , No Panel InformationOrdered By: Jane Tracey on 05-30-2023 Anti-Nuclear Antibody Comment 2 See comment . [facility] Comment on above: Pattern Potential Di sease Association Homogeneous Systemic Lupus Erythematosus, Drug Induced Systemic Lupus Erythematosus, Chronic Autoimmune hepatitis, Juvenile Idiopathic Arthritis Speckled Sjogren Syndrome, Systemic Lupus Erythematosus, Subacute Cutaneous Lupus, Lupus, Congenital Heart Block, Mixed Connective Tissue Disease, Scleroderma-diffuse, Scleroderma-Autoimmune Myositis Overlap Syndrome, Systemic Lupus Xldknmnxhommz-Miojazyzmmd-Eyongrhskr Myositis Overlap Syndrome, Systemic Autoimmune Rheumatic Disease, [...] Cytopenias, Linear Scleroderma, Antiphospholipid Syndrome Performed at: [employer] [facility] [address] [id number] Director: Breezy Jones PhD, Phone: [phone] Estimated GFR (CKD-EPI) > 60.0 mL/Min [facility] Hepatitis B Core IgM Antibody Negative Negative [facility] Comment on above: Performed at: [facility] [address] [id number] Director: Breezy Jones PhD, Phone: [phone] Perinuclear ANCA (p-ANCA) Antibody <1:20 titer Neg:<1:20 [facility] Comment on above: The presence of posi tive fluorescence exhibiting P-ANCA orC-ANCA patterns alone is not specific for the diagnosis ofWegener's Granulomatosis (WG) or microscopic polyangiitis.Decisions about treatment should not be based solely onANCA IFA results. The International ANCA Group Consensusrecommends follow up testing of positive sera with both PA-3 and MPO-ANCA enzyme immunoassays. As many as 5% serumsamples are positive only by EIA. Ref. AM J Clin Gownty2274;111:507-513. Pharmacy Creatinine Clearance (Chem 108.91 [facility] Protein Electrophoresis M-Tomas Not observed g/dL Not Observed [facility] Protein Electrophoresis Note See comment . [facility] Comment on above: Protein electrophore sis scan will follow via computer,mail, or scoring machine operator delivery. Serum Immunofixation See comment . [facility] Comment on above: No monoclonality det ected. Nucleated erythrocytes [Pres ence] in Blood by Automated countOrdered By: Jane Tracey on 05-30-2023 Nucleated RBC Auto Ql (Bld) 0.1 /100{WBC} 0-0.5 [facility] Platelet mean volume [Entiti c volume] in Blood by Automated countOrdered By: Jane Tracey on 05-30-2023 Platelet mean volume (Bld) [Entitic vol] 7.6 fL Normal 6.3-10.7 [facility] Comment on above: Performed By: #### C REAT, ESR, CRP, HEPATIC, CK, CBC, MISC LAB #### [place] [address] [place] #### ANTI-KU AB, MITOM2, CH50, PAT, RNA POLYMR, C3, C4 #### [facility] , Platelets [#/volume] in Bloo d by Automated countOrdered By: Jane Tracey on 05-30-2023 Platelets (Bld) [#/Vol] 325 10*3/uL Normal 150-450 [facility] Comment on above: Performed By: #### C REAT, ESR, CRP, HEPATIC, CK, CBC, MISC LAB #### [address] #### ANTI-KU AB, MITOM2, CH50, PAT, RNA POLYMR, C3, C4 #### [facility] , Potassium [Moles/volume] in Serum or PlasmaOrdered By: lilia Tracey on 05-30-2023 Potassium [Moles/Vol] 3.4 mmol/L Low 3.5-5.1 [facility] Comment on above: Performed By: #### C REAT, ESR, CRP, HEPATIC, CK, CBC, MISC LAB #### [place] [address] [place] #### ANTI-KU AB, MITOM2, CH50, PAT, RNA POLYMR, C3, C4 #### [facility] , Protein Electrophoresis, Ser umon 05-30-2023 Ylhca-4-Quultnpm 0.2 g/dL Normal 0.0-0.4 [facility] Comment on above: Performed By: #### C REAT, ESR, CRP, HEPATIC, CK, CBC, MISC LAB #### [place] [address] [place] #### ANTI-KU AB, MITOM2, CH50, PAT, RNA POLYMR, C3, C4 #### [facility] , Sohrf-6-Hvtxeqvv 1.0 g/dL Normal 0.4-1.0 [facility] Comment on above: Performed By: #### C REAT, ESR, CRP, HEPATIC, CK, CBC, MISC LAB #### [address] #### ANTI-KU AB, MITOM2, CH50, PAT, RNA POLYMR, C3, C4 #### [facility] , Beta Globulin 1.3 g/dL Normal 0.7-1.3 [facility] Comment on above: Performed By: #### C REAT, ESR, CRP, HEPATIC, CK, CBC, MISC LAB #### [address] #### ANTI-KU AB, MITOM2, CH50, PAT, RNA POLYMR, C3, C4 #### [facility] , Gamma Globulin 1.5 g/dL Normal 0.4-1.8 [facility] Comment on above: Performed By: #### C REAT, ESR, CRP, HEPATIC, CK, CBC, MISC LAB #### [address] #### ANTI-KU AB, MITOM2, CH50, PAT, RNA POLYMR, C3, C4 #### [facility] , M-Tomas Not Observed Normal Not Observed [facility] Comment on above: Performed By: #### C REAT, ESR, CRP, HEPATIC, CK, CBC, MISC LAB #### [address] #### ANTI-KU AB, MITOM2, CH50, PAT, RNA POLYMR, C3, C4 #### [facility] , SPE-Note Normal . [facility] Comment on above: Result Comment: Prot ein electrophoresis scan will follow via computer, mail, or scoring machine operator delivery. Performed By: #### C REAT, ESR, CRP, HEPATIC, CK, CBC, MISC LAB #### [facility] [address] [place] [address] [place] #### ANTI-KU AB, MITOM2, CH50, PAT, RNA POLYMR, C3, C4 #### [facility] , Protein [Mass/volume] in Ser um or PlasmaOrdered By: Jane Tracey on 05-30-2023 Protein [Mass/Vol] 9.0 g/dL High 6.4-8.9 [facility] Comment on above: Performed By: #### C REAT, ESR, CRP, HEPATIC, CK, CBC, MISC LAB #### [place] [address] [place] #### ANTI-KU AB, MITOM2, CH50, PAT, RNA POLYMR, C3, C4 #### [facility] , Protein [Mass/Vol] 8.1 g/dL Normal 6.0-8.5 [facility] Comment on above: Performed By: #### C REAT, ESR, CRP, HEPATIC, CK, CBC, MISC LAB #### [place] [address] [place] #### ANTI-KU AB, MITOM2, CH50, PAT, RNA POLYMR, C3, C4 #### [facility] , Proteinase 3 Ab [Units/volum e] in Serum by ImmunoassayOrdered By: lilia Tracey on 05-30-2023 Proteinase 3 Ab IA Qn (S) <0.2 units 0.0-0.9 [facility] Rheumatoid Factoron 05-30-20 23 Rheumatoid Factor 10.9 Normal <14.0 [facility] Comment on above: Result Comment: Perf ormed at: - [facility] [address] [id number] Ivory Carver: Breezy Jones PhD, Phone: [phone] Performed By: #### C REAT, ESR, CRP, HEPATIC, CK, CBC, MISC LAB #### [place] [address] [place] #### ANTI-KU AB, MITOM2, CH50, PAT, RNA POLYMR, C3, C4 #### [facility] , Serum angiotensin converting enzyme (DILSHAD) measurementOrdered By: Jane Tracey on 05-30-2023 Angiotensin converting enzyme [Catalytic activity/Vol] 61 U/L Normal 14-82 [facility] Comment on above: Performed at: - [facility] [address] [id number] Director: Breezy Jones PhD, Phone: [phone] Result Comment: Perf ormed at: - [facility] [address] [id number] Ivory Carver: Breezy Jones PhD, Phone: [phone] Performed By: #### C REAT, ESR, CRP, HEPATIC, CK, CBC, MISC LAB #### [facility] [address] [place] [address] [place] #### ANTI-KU AB, MITOM2, CH50, PAT, RNA POLYMR, C3, C4 #### [facility] , Serum classic neutrophil cyt oplasmic antibody titer by immunofluorescenceOrdered By: Jane Tracey on 05-30-2023 Neutrophil cytoplasmic Ab.classic IF (S) [Titer] <1:20 titer Neg:<1:20 [facility] Serum cryoglobulin detection Ordered By: Jane Tracey on 05-30-2023 Cryoglobulin Ql (S) See comment . [facility] Comment on above: Test not performed. Insufficient specimen to perform orcomplete analysis.contacted your facility on [id number] test was developed and its performance characteristicsdetermined by [facility]. It has not been cleared orapproved by the Food and Drug Administration. Serum globulin measurement ( mass/volume)Ordered By: Jane Tracey on 05-30-2023 Globulin (S) [Mass/Vol] 4.0 g/dL High 2.2-3.9 [facility] Comment on above: Performed By: #### C REAT, ESR, CRP, HEPATIC, CK, CBC, MISC LAB #### [facility] [address] [place] [address] #### ANTI-KU AB, MITOM2, CH50, PAT, RNA POLYMR, C3, C4 #### [facility] , Serum globulin measurement b y calculation (mass/volume)Ordered By: Jane Condon on 05-30-2023 Globulin (S) [Mass/Vol] 3.8 g/dL Normal [facility] Comment on above: Performed By: #### C REAT, ESR, CRP, HEPATIC, CK, CBC, MISC LAB #### [facility] [address] [place] [address] #### ANTI-KU AB, MITOM2, CH50, PAT, RNA POLYMR, C3, C4 #### [facility] , Serum hepatitis B virus surf dilshad antibody detectionOrdered By: Jane Tracey on 05-30-2023 HBV surface Ab Ql (S) Reactive . [facility] Comment on above: Non Reactive: Incons istent with immunity, less than 10 mIU/mL Reactive: Consistent with immunity, greater than 9.9 mIU/mL Serum nuclear antibody titer Ordered By: Jane Tracey on 05-30-2023 Nuclear Ab (S) [Titer] Positive . [facility] Comment on above: Negative <1:80 Borde rline 1:80 Positive >1:80 Serum or plasma albumin/glob ulin mass ratioOrdered By: Jane Tracey on 05-30-2023 Albumin/Globulin [Mass ratio] 1.4 {ratio} Normal [facility] Comment on above: Performed By: #### C REAT, ESR, CRP, HEPATIC, CK, CBC, MISC LAB #### [facility] [address] [place] [address] [place] #### ANTI-KU AB, MITOM2, CH50, PAT, RNA POLYMR, C3, C4 #### [facility] , Albumin/Globulin [Mass ratio] 1.0 {ratio} Normal 0.7-1.7 [facility] Comment on above: Performed By: #### C REAT, ESR, CRP, HEPATIC, CK, CBC, MISC LAB #### [facility] [address] [place] [address] [place] #### ANTI-KU AB, MITOM2, CH50, PAT, RNA POLYMR, C3, C4 #### [facility] , Serum or plasma alpha 1 glob ulin measurement by electrophoresis (mass/volume)Ordered By: Jane Tracey on 05-30-2023 Alpha 1 globulin Elph [Mass/Vol] 0.2 g/dL 0.0-0.4 [facility] Serum or plasma alpha 2 glob ulin measurement by electrophoresis (mass/volume)Ordered By: Jane Tracey on 05-30-2023 Alpha 2 globulin Elph [Mass/Vol] 1.0 g/dL 0.4-1.0 [facility] Serum or plasma anion gap de terminationOrdered By: Jane Tracey on 05-30-2023 Anion gap [Moles/Vol] 17.6 mmol/L High 6.0-15.[address] [facility] Comment on above: Performed By: #### C REAT, ESR, CRP, HEPATIC, CK, CBC, [facility] #### [facility] [address] [place] [address] [place] #### ANTI-KU AB, MITOM2, CH50, PAT, RNA POLYMR, C3, C4 #### [facility] , Serum or plasma beta globuli n measurement by electrophoresis (mass/volume)Ordered By: Jane Tracey on 05-30-2023 Beta globulin Elph [Mass/Vol] 1.3 g/dL 0.7-1.3 [facility] Serum or plasma gamma globul in measurement by electrophoresis (mass/volume)Ordered By: Jane Tracey on 05-30-2023 Gamma globulin Elph [Mass/Vol] 1.5 g/dL 0.4-1.8 [facility] Serum or plasma methylmalona te measurement (moles/volume)Ordered By: Jane Condon on 05-30-2023 Methylmalonate [Moles/Vol] 99 nmol/L 0-378 [facility] Comment on above: This test was develo ped and its performance characteristicsdetermined by [facility]. It has not been cleared orapproved by the Food and Drug Administration.Performed at: - [facility] [id number] Director: Lisa Ramos MD, Phone: [phone] Serum or plasma rheumatoid f actor measurement (units/volume)Ordered By: Jane Tracey on 05-30-2023 Rheumatoid factor Qn 10.9 [IU]/mL <14.[address] [facility] Comment on above: Performed at: [facility] [address] [id number] Director: Breezy Jones PhD, Phone: [phone] Serum speckled pattern antin uclear antibody (PAT) titerOrdered By: Jane Condon on 05-30-2023 Speckled nuclear Ab pattern (S) [Titer] 1:160 . [facility] Comment on above: ICAP nomenclature: A C-2,4,5,29 Sodium [Moles/volume] in Ser um or PlasmaOrdered By: Jane Tracey on 05-30-2023 Sodium [Moles/Vol] 138 mmol/L Normal 136-145 [facility] Comment on above: Performed By: #### C REAT, ESR, CRP, HEPATIC, CK, CBC, MISC LAB #### [facility] [address] [place] [address] [place] #### ANTI-KU AB, MITOM2, CH50, PAT, RNA POLYMR, C3, C4 #### [facility] , Urea nitrogen [Mass/volume] in Serum or PlasmaOrdered By: Jane Tracey on 05-30-2023 Urea nitrogen [Mass/Vol] 9 mg/dL Normal 7-25 [facility] Comment on above: Performed By: #### C REAT, ESR, CRP, HEPATIC, CK, CBC, MISC LAB #### [facility] [address] [place] [address] [place] #### ANTI-KU AB, MITOM2, CH50, PAT, RNA POLYMR, C3, C4 #### [facility] , Vit. B12/Folate Profileon Folate 1.3 ng/mL Low >5.9 [facility] Comment on above: Result Comment: Astrid te reference range: >5.9 ng/ml The WHO technical consultation on folate and vitamin b12 deficiencies has determined that folate concentrations less than 4 ng/ml are considered deficient. PERFORMED BY: [place] [address] PATHOLOGIST TROUBLE DISPATCHER RUIZ CLIFTON M.D. Performed By: #### C REAT, ESR, CRP, HEPATIC, CK, CBC, MISC LAB #### [facility] [address] [place] [address] #### ANTI-KU AB, MITOM2, CH50, PAT, RNA POLYMR, C3, C4 #### [facility] , Vitamin B12 ser/plasOrdered By: Jane Tracey on 05-30-2023 Cobalamin (Vitamin B12) [Mass/Vol] 169 pg/mL Low 180-914 [facility] Comment on above: Performed By: #### C REAT, ESR, CRP, HEPATIC, CK, CBC, MISC LAB #### [facility] [address] [place] [address] [place] #### ANTI-KU AB, MITOM2, CH50, PAT, RNA POLYMR, C3, C4 #### [facility] , CNOVon 05-23-2023 CNOV Office Visit (ROSS ) -------- RICA STOUT ([id number]) 1995 F Date Time Provider Department 05/23/23 [...] year old female who presents to the [facility] Neurology clinic with the chief complaint of [...] studies. B12. SPEP with RONALD. - Start xniq-nwm-ybgwvaf B complex supplementation after laboratory studies. - Trial alpha lipoic acid. Take 600 mg daily. - Follow-up in person in 4 to 6 months. Arsh Orozco MD Staff, [facility] [place] HPI: This is Ms. Rica Stout, a 27 year old female who presents to the [facility] Neurology clinic with the chief complaint of [...] shrug bilater (more content not included)... Normal [facility] Office Visiton 05-08-2023 Follow-up visit [id number] Louis Stout 1995 F Date Provider Department Center 05/08/2023 1596-MARTHA GRAY SANTANA [facility] Family History Problem Relation Age of Onset Coronary artery disease Maternal Grandmother Peripheral vascular disease Maternal Grandmother Hypertension Paternal Grandmother Atrial fibrillation Paternal Grandmother Family Status - Relation Status Age at Maternal Grandmother Paternal Grandmother Level of Service:80060 PA OFFICE/OUTPATIENT ESTABLISHED MOD MDM 30-39 MIN Normal [facility] A1AT SerPl-mCncon 04-12-2023 Alpha 1 antitrypsin [Mass/Vol] 138 mg/dL Normal 90-200 [facility] Comment on above: Order Comment: Speci men Type: BLOOD SPECIMENOrdering Facility: [facility] Address: [address] [place] [address] Performed By: #### 2 4321-2, 1825-9, 41042-2, 2064-4 ####[facility] [id number] [address] [facility] ALPHA 1 ANTITRYP PHEN/GENOTY PEon 04-12-2023 HA1IN Normal [facility] Comment on above: Order Comment: Speci lowell Type: BLOOD SPECIMEN Ordering Facility: [facility] Address: [address] [place] [address] Result Comment: Alph a 1 Antitrypsin Phenotype and Genotype Laboratory Accession Number: [id number] Result: No Variant Detected in SERPINA1 (PI*MM) [...] two most common pathogenic variants: S (c.863A>T, p.Ovc853Zas, g.[id number]), Z (c.1096G>A, p.Hhg774Rup, g.71745763), and the rarer variants: F (c.739C>T, p.Twf313Fmf, g.32136655), I (c.187C>T, p.Pvj54Rvt, g.90990182). Limitations: This Laboratory Developed Test (LDT) is [...] developed and its performance characteristics determined by [facility]'s [facility] [place] ([facility]). It has not been cleared or approved by the FDA. -[facility] is regulated under CLIA as certified to perform high- complexity testing. This test is used for clinical purposes. It should not be regarded as investigational or for research. Testing and interpretation performed at [facility], [address] [place], [place] [address]. CLIA Number: [id number] References: 1) Alok NAGEL, Rodo G, Alicia WHITLEY, Valdemar Baker, Zay CE, K, Martinez DK, Rodger SL, Benson ALVRAEZ, Esther DANIELLE, Placido Morin, Inocente J. The [...] SJ, Christel AF. Molecular characterisation of three rreir-0-cxpwoawyqil deficiency variants: proteinase inhibitor (Pi) nullcardiff (Cfo350----Wzc); PiMmalton (Aea42----hlpyixfh) and PiI (Opt20----Wyg). Hum Karen. 1989 Jun;84(1):55-8. 4) Nancy EK and Alok NAGEL. Clinical practice. Alpha1-antitrypsin deficiency. N Engl J Med. 2008Jan 13;[phone]. 5) Jorge NJ, Javier F, Samantha NAGEL. The significance of the F variant of setft-0-jludtyvtoou and unique case report of a PiFF homozygote. BMC Pulm Med. 2013Feb 25;14:132. 6) Esther DANIELLE, Laisha HALL, and Nicolette Mccurdy. Alpha-1 Antitrypsin Deficiency. 2005May 17 [Updated 2017 August 09]. In: Gricelda RA, Chele MP, Iban TO, et al., editors. GeneReviews [Internet]. [place] ([place]): [facility], [place]; 2104-3178. Available from: http://www.ncbi.nlm.nih.gov/books/ZES6246/ As reviewed by Saritha Swan MD Performed By: #### 3 4528-0 #### [facility] CLIA [id number] [address] [place] [address] [place] PAT BY IFA WITH REFLEXon Nuclear Ab pattern (S) [Interp] Nuclear fine speckled Normal [facility] Comment on above: Order Comment: Speci men Type: BLOOD SPECIMEN Ordering Facility: [facility] Address: [address] [address] Performed By: #### 3 4528-0 #### [facility] CLIA [id number] [address] [place] [address] [place] Nuclear Ab Ql (S) Positive Abnormal Negative [facility] Comment on above: Order Comment: Speci men Type: BLOOD SPECIMEN Ordering Facility: [facility] Address: [address] [address] Result Comment: Anti -nuclear antibody test is used as an aid in diagnosis of systemic autoimmune diseases. Where positive and clinically warranted, follow-up using disease-specific testing is recommended. Low positive titers are not uncommon with advanced age, certain chronic infections, and malignancies among others. Test methodology: Indirect fluorescence immunoassay (IFA) using HEp-2 cells. 1:80 Performed By: #### 3 4528-0 #### [facility] CLIA [id number] [address] [place] [address] [place] Basic metabolic 2000 panelon 04-12-2023 Anion gap [Moles/Vol] 18 mmol/L Normal 9-18 [facility] Comment on above: Order Comment: Speci men Type: BLOOD SPECIMENOrdering Facility: [facility] Address: [address] [address] Performed By: #### 2 4321-2, 1825-03, 40243-2, 4-4 ####[facility] LABCLIA [id number] [place] [address] [place] Calcium [Mass/Vol] 10.3 mg/dL High 8.5-10.2 [facility] Comment on above: Order Comment: Speci men Type: BLOOD SPECIMENOrdering Facility: [facility] Address: [address] [place] [address] Performed By: #### 2 4321-2, 1825-03, 26362-9, 2063-10 ####[facility] LABCLIA [id number] [place] [address] [place] Chloride [Moles/Vol] 100 mmol/L Normal 97-105 [facility] Comment on above: Order Comment: Speci men Type: BLOOD SPECIMENOrdering Facility: [facility] Address: [address] [place], [place] [address] Performed By: #### 2 4321-2, 1825-03, 85970-6, 2063-10 ####[facility] LABCLIA [id number] [place] [address] [place] CO2 [Moles/Vol] 20 mmol/L Low 22-30 [facility] Comment on above: Order Comment: Speci men Type: BLOOD SPECIMENOrdering Facility: [facility] Address: [address] [place], [place] [address] Performed By: #### 2 4321-2, 1825-03, 92408-6, 2063-10 ####[facility]CLIA [id number] [place] [address] [place] Creatinine [Mass/Vol] 0.43 mg/dL Low 0.58-0.96 [facility] Comment on above: Order Comment: Speci men Type: BLOOD SPECIMENOrdering Facility: [facility] Address: [address] [place], [place] [address] Performed By: #### 2 4321-2, 1825-03, 58632-9, 2063-10 ####[facility] LABCLIA [id number] [place] [address] [place] Creatinine and Glomerular filtration rate.predicted panel (S/P/Bld) 137 mL/min/1.73m??? Normal >=60 [facility] Comment on above: Order Comment: Speci men Type: BLOOD SPECIMENOrdering Facility: [facility] Address: [address] [place], [place] [address] Result Comment: Ebony mated Glomerular Filtration Rate [...] GFR. Performed By: #### 2 4321-2, 1825-03, 85036-4, 2063-10 ####[facility] LABIA [id number] [address] [address] [place] Glucose [Mass/Vol] 96 mg/dL Normal 74-99 [facility] Comment on above: Order Comment: Jim etienne Type: BLOOD SPECIMENOrdering Facility: [facility] Address: [address] Result Comment: The [place] [employer] (ADA) provides guidance for cutoff [...] Standards of Medical Care in Diabetes 2016, [place] [employer]. Diabetes Care. 2016.39(Suppl 1). Performed By: #### 2 4321-2, 1825-03, 53365-6, 2063-10 ####[facility] LABIA [id number] [address] [address] [place] Potassium [Moles/Vol] 3.9 mmol/L Normal 3.7-5.1 [facility] Comment on above: Order Comment: Jim etienne Type: BLOOD SPECIMENOrdering Facility: [facility] Address: [address] [place] [id number] Performed By: #### 2 4321-2, 9, 44763-2, 2063-10 ####[facility] LABCLIA [id number] [place] [id number] [place] Sodium [Moles/Vol] 138 mmol/L Normal 136-144 [facility] Comment on above: Order Comment: Speci men Type: BLOOD SPECIMENOrdering Facility: [facility] Address: [address] Performed By: #### 2 4321-2, 9, 36187-5, 2063-10 ####[facility] LABCLIA [id number] [place] [address] [place] Urea nitrogen [Mass/Vol] 7 mg/dL Normal 7-21 [facility] Comment on above: Order Comment: Speci men Type: BLOOD SPECIMENOrdering Facility: [facility] Address: [address] Performed By: #### 2 4321-2, 9, 49231-6, 2063-10 ####[facility] LABCLIA [id number] [place] [address] [place] CBC W Auto Differential pane l (Bld)on 04-12-2023 Basophils (Bld) [#/Vol] 0.09 10*3/uL Normal <0.11 [facility] Comment on above: Order Comment: Speci men Type: BLOOD SPECIMEN [facility] Address: [address] [place] [address] Performed By: #### 3 4528-0 #### [facility] CLIA [id number] [facility] [place] [address] [place] Basophils/100 WBC (Bld) 1.0 % Normal [facility] Comment on above: Order Comment: Speci men Type: BLOOD SPECIMEN [facility] Address: [address] [place], [place] [address] Performed By: #### 3 4528-0 #### [facility] CLIA [id number] [address] [place] [address] [place] Differential cell count method Nom (Bld) Manual Normal [facility] Comment on above: Order Comment: Speci men Type: BLOOD SPECIMEN [facility] Address: [address] [place], [place] [address] Performed By: #### 3 4528-0 #### [facility] CLIA [id number] [address] [place] [address] [place] Eosinophils (Bld) [#/Vol] 0.36 10*3/uL Normal <0.46 [facility] Comment on above: Order Comment: Speci men Type: BLOOD SPECIMEN [facility] Address: [address] [place], [place] [address] Performed By: #### 3 4528-0 #### [facility] CLIA [id number] [address] [place] [address] [place] Eosinophils/100 WBC (Bld) 4.0 % Normal [facility] Comment on above: Order Comment: Speci men Type: BLOOD SPECIMEN [facility] Address: [address] [place] [address] Performed By: #### 3 4528-0 #### [facility] CLIA [id number] [address] [place] [address] [place] Erythrocyte distribution width (RBC) [Ratio] 12.3 % Normal 11.5-15.0 [facility] Comment on above: Order Comment: Speci men Type: BLOOD SPECIMEN [facility] Address: [address] [place] [address] Performed By: #### 3 4528-0 #### [facility] CLIA [id number] [address] [place] [address] [place] Hematocrit (Bld) [Volume fraction] 43.8 % Normal 36.0-46.0 [facility] Comment on above: Order Comment: Speci men Type: BLOOD SPECIMEN [facility] Address: [address] Performed By: #### 3 4528-0 #### [facility] CLIA [id number] [address] [place] [address] [place] Hemoglobin (Bld) [Mass/Vol] 14.5 g/dL Normal 11.5-15.5 [facility] Comment on above: Order Comment: Speci men Type: BLOOD SPECIMEN [facility] Address: [address] [place], [place] [address] Performed By: #### 3 4528-0 #### [facility] CLIA [id number] [address] [place] [address] [place] Lymphocytes (Bld) [#/Vol] 1.72 10*3/uL Normal 1.00-4.00 [facility] Comment on above: Order Comment: Speci men Type: BLOOD SPECIMEN [facility] Address: [address] [place], [place] [address] Performed By: #### 3 4528-0 #### [facility] CLIA [id number] [address] [place] [address] [place] Lymphocytes/100 WBC (Bld) 19.0 % Normal [facility] Comment on above: Order Comment: Speci men Type: BLOOD SPECIMEN [facility] Address: [address] [place] [address] Performed By: #### 3 4528-0 #### [facility] CLIA [id number] [address] [place] [address] [place] MCH (RBC) [Entitic mass] 34.4 pg High 26.0-34.0 [facility] Comment on above: Order Comment: Speci men Type: BLOOD SPECIMEN [facility] Address: [address] [place], [place] [address] Performed By: #### 3 4528-0 #### [facility] CLIA [id number] [address] [place] [address] [place] MCHC (RBC) [Mass/Vol] 33.1 g/dL Normal 30.5-36.0 [facility] Comment on above: Order Comment: Speci men Type: BLOOD SPECIMEN [facility] Address: [address] Performed By: #### 3 4528-0 #### [facility] CLIA [id number] [address] [place] [address] [place] MCV (RBC) [Entitic vol] 104.0 fL High 80.0-100.0 [facility] Comment on above: Order Comment: Speci men Type: BLOOD SPECIMEN [facility] Address: [address] Performed By: #### 3 4528-0 #### [facility] CLIA [id number] [address] [place] [address] [place] Monocytes (Bld) [#/Vol] 0.27 10*3/uL Normal <0.87 [facility] Comment on above: Order Comment: Speci men Type: BLOOD SPECIMEN [facility] Address: [address] [place] [address] Performed By: #### 3 4528-0 #### [facility] CLIA [id number] [address] [place] Monocytes/100 WBC (Bld) 3.0 % Normal [facility] Comment on above: Order Comment: Speci men Type: BLOOD SPECIMEN [facility] Address: [address] Performed By: #### 3 4528-0 #### [facility] CLIA [id number] [address] [place] [address] [place] MYELO% 3.0 % Normal [facility] Comment on above: Order Comment: Speci men Type: BLOOD SPECIMEN [facility] Address: [address] [place] [address] Performed By: #### 3 4528-0 #### [facility] CLIA [id number] [address] [place] [address] [place] Neutrophils (Bld) [#/Vol] 6.33 10*3/uL Normal 1.45-7.50 [facility] Comment on above: Order Comment: Speci men Type: BLOOD SPECIMEN [facility] Address: [address] [place] [address] Performed By: #### 3 4528-0 #### [facility] CLIA [id number] [address] [place] [address] [place] Neutrophils/100 WBC (Bld) 70.0 % Normal [facility] Comment on above: Order Comment: Speci men Type: BLOOD SPECIMEN [facility] Address: [address] [place] [address] Performed By: #### 3 4528-0 #### [facility] CLIA [id number] [address] [place] [address] [place] Nucleated RBC (Bld) [#/Vol] 10*3/uL Normal <0.01 [facility] Comment on above: Order Comment: Speci men Type: BLOOD SPECIMEN [facility] Address: [address] [place] [address] Performed By: #### 3 4528-0 #### [facility] CLIA [id number] [address] [place] [address] [place] Nucleated RBC/100 WBC (Bld) [Ratio] 0.0 /100 WBC Normal [facility] Comment on above: Order Comment: Speci men Type: BLOOD SPECIMEN [facility] Address: [address] [place] Performed By: #### 3 4528-0 #### [facility] CLIA [id number] [address] [place] [address] [place] Platelet mean volume (Bld) [Entitic vol] 10.1 fL Normal 9.0-12.7 [facility] Comment on above: Order Comment: Speci men Type: BLOOD SPECIMEN [facility] Address: [address] [place] [address] Performed By: #### 3 4528-0 #### [facility] CLIA [id number] [address] [place] [address] [place] Platelets (Bld) [#/Vol] 393 10*3/uL Normal 150-400 [facility] Comment on above: Order Comment: Speci men Type: BLOOD SPECIMEN [facility] Address: [address] [place] [id number] Performed By: #### 3 4528-0 #### [facility] CLIA [id number] [address] [place] [address] [place] Platelets Estimate (Bld) [#/Vol] Adequate Normal [facility] Comment on above: Order Comment: Speci men Type: BLOOD SPECIMEN [facility] Address: [address] [place] [id number] Performed By: #### 3 4528-0 #### [facility] CLIA [id number] [facility] [place] [address] [place] Polychromasia LM Ql (Bld) Slight Normal [facility] Comment on above: Order Comment: Speci men Type: BLOOD SPECIMEN [facility] Address: [address] [place] [id number] Performed By: #### 3 4528-0 #### [facility] CLIA [id number] [address] [place] [address] [place] [facility] RBC (Bld) [#/Vol] 4.21 10*6/uL Normal 3.90-5.20 [facility] Comment on above: Order Comment: Speci men Type: BLOOD SPECIMEN [facility] Address: [address] [place] [address] Performed By: #### 3 4528-0 #### [facility] CLIA [id number] [facility] [address] STATES [place] RED CELL MORPH Reviewed: unremarkable Normal [facility] Comment on above: Order Comment: Speci men Type: BLOOD SPECIMEN [facility] Address: [address] [place] [address] Performed By: #### 3 4528-0 #### [facility] CLIA [id number] [address] [place] [address] [place] WBC (Bld) [#/Vol] 9.04 10*3/uL Normal 3.70-11.00 [facility] Comment on above: Order Comment: Speci men Type: BLOOD SPECIMEN [facility] Address: [address] [place] [address] Performed By: #### 3 4528-0 #### [facility] CLIA [id number] [address] [place] [address] OF [facility] WBC Left Shift Ql (Bld) Present [facility] Comment on above: Order Comment: Speci men Type: BLOOD SPECIMEN [facility] Address: [address] [place] [address] Performed By: #### 3 4528-0 #### [facility] CLIA [id number] [address] [place] [address] OF [place] CNOVon 04-12-2023 CNOV Office Visit (GASTA5 ) -------- RICA STOUT ([id number]) 1995 F Date Time Provider Department 04/12/23 1:00 PM JEANNIE JARVIS GASTA5 During your visit today, we recorded the following information about you: Pulse Blood pressure Weight Height 112/minute 132/88 60.4 kg 1.626 m Jeannie Jarvis APRN.[employer] 05/24/2023 12:39 PM Signed NAME: Rica Stout [...] of ETOH abuse, [facility] Recently [facility] for lower [...] hematemesis, hematochezia, ascites, episodes of confusion. IMAGING/PROCEDURES: [facility] US 03/22/23: No past surgical history on [...] 9.0 Alb (more content not included)... Normal [facility] Centromere Ab IF Ql (S)on Centromere Ab Qn (S) <0.2 Normal <1.0 [facility] Comment on above: Order Comment: Speci lowell Type: BLOOD SPECIMENOrdering Facility: [facility] Address: [address] [address] Result Comment: Anti -centromere antibody is used as in aid in diagnosis of systemic sclerosis. Clinical correlation is required. Test Methodology: Multiplex flow immunoassay. Performed By: #### 1 7791-5, 32286-2, 85279-7, 49074-5, 74786-5, ANAIFR, 28276-9, 16822-1, 33342-5, 67602-3, 77095-5, 06770-3 ####[facility] LABCLIA [id number] [address] OF [facility] CENTROMERE AB QUAL Negative Normal Negative [facility] Comment on above: Order Comment: Jim etienne Type: BLOOD SPECIMENOrdering Facility: [facility] Address: [address] [address] Performed By: #### 1 7791-5, 03585-8, 45749-1, 16941-0, 47531-1, ANAIFR, 81044-3, 68472-3, 30277-7, 50352-4, 07681-3, 84444-4 ####[facility] LABIA [id number] [address] OF [place] Ceruloplasmin SerPl-mCncon 0 04-12-2023 Ceruloplasmin [Mass/Vol] 29 mg/dL Normal 16-45 [facility] Comment on above: Order Comment: Speci men Type: BLOOD SPECIMENOrdering Facility: [facility] Address: [address] [place] [address] Performed By: #### 2 4321-2, 1825-9, 72094-3, 2064-4 ####[facility] [id number] [address] STATES [place] Chromatin Ab Qnon 04-12-2023 CHROMATIN AB QUAL Negative Normal Negative [facility] Comment on above: Order Comment: Speci men Type: BLOOD SPECIMENOrdering Facility: [facility] Address: [address] [place] [address] Performed By: #### 1 7791-5, 64462-6, 65228-0, 24464-3, 17542-2, ANAIFR, 05633-7, 90382-3, 40228-5, 34866-2, 19297-9, 83872-9 ####[facility] [id number] [address] [place] Chromatin Ab SerPl-aCncon Chromatin Ab Qn <0.2 Normal <1.0 [facility] Comment on above: Order Comment: Speci men Type: BLOOD SPECIMENOrdering Facility: [facility] Address: [address] [place] [address] Result Comment: Test Methodology: Multiplex flow immunoassay. Performed By: #### 1 7791-5, 81580-8, 90328-0, 84703-4, 79392-6, ANAIFR, 83000-7, 82871-9, 26811-7, 12246-4, 56073-8, 44538-5 ####[facility] [id number] [place] [address] [place] OMA Jo1 Ab Ser-aCncon 2022 Taylor-1 extractable nuclear Ab Qn (S) <0.2 Normal <1.0 [facility] Comment on above: Order Comment: Speci men Type: BLOOD SPECIMENOrdering Facility: [facility] Address: [address] [place] [address] Performed By: #### 1 7791-5, 23885-6, 41971-8, 95881-0, 19364-3, ANAIFR, 56365-4, 85022-9, 49279-5, 41428-5, 63560-1, 10300-4 ####[facility] [id number] [place] [address] [place] OMA TRENCH PIPE LAYER HELPER Ab Ser-aCncon 2022 Ribonucleoprotein extractable nuclear Ab Qn (S) <0.2 Normal <1.0 [facility] Comment on above: Order Comment: Speci men Type: BLOOD SPECIMENOrdering Facility: [facility] Address: [address] [place] [address] Performed By: #### 1 7791-5, 31441-6, 58347-9, 95766-3, 66913-1, ANAIFR, 11708-2, 44072-2, 49819-0, 02447-9, 67376-6, 58884-0 ####[facility] [id number] [place] [address] [place] Ribonucleoprotein extractable nuclear Ab Qn (S) 0.3 AI Normal <1.0 [facility] Comment on above: Order Comment: Speci men Type: BLOOD SPECIMENOrdering Facility: [facility] Address: [address] [place] [address] Performed By: #### 1 7791-5, 12085-7, 79796-5, 94344-7, 21808-2, ANAIFR, 24940-5, 77876-8, 95311-2, 39658-5, 32491-9, 16257-8 ####[facility] [id number] [place] [address] [place] OMA SM IgG Ser-aCncon 2022 Rico extractable nuclear IgG Qn (S) <0.2 Normal <1.0 [facility] Comment on above: Order Comment: Speci men Type: BLOOD SPECIMENOrdering Facility: [facility] Address: [address] [place] [address] Performed By: #### 1 7791-5, 57967-9, 47376-3, 53084-3, 74193-4, ANAIFR, 37485-1, 79438-1, 77622-1, 50266-7, 25266-5, 71026-0 ####[facility] [id number] [address] [place] OMA SS-A Ab Ser-aCncon 04-12 Sjogrens syndrome-A extractable nuclear Ab Qn (S) <0.2 Normal <1.0 [facility] Comment on above: Order Comment: Speci men Type: BLOOD SPECIMENOrdering Facility: [facility] Address: [address] [place] [address] Result Comment: Test Methodology: Multiplex flow immunoassay. Performed By: #### 1 7791-5, 87896-4, 64294-2, 67659-7, 43488-4, ANAIFR, 62077-5, 26727-0, 47367-3, 85718-5, 64961-0, 52904-8 ####[facility] [id number] [place] [address] [place] OMA SS-B Ab Ser-aCncon 04-12 Sjogrens syndrome-B extractable nuclear Ab Qn (S) <0.2 Normal <1.0 [facility] Comment on above: Order Comment: Speci men Type: BLOOD SPECIMENOrdering Facility: [facility] Address: [address] [place] [address] Result Comment: Anti -SSB (anti-La) antibody is used as an aid in diagnosis of a variety of systemic autoimmune diseases, especially for Sjogren's syndrome and systemic lupus erythematosus. Clinical correlation is required. Test Methodology: Multiplex flow immunoassay. Performed By: #### 1 7791-5, 24843-4, 47873-6, 54759-9, 84336-6, ANAIFR, 21864-5, 06107-4, 63250-7, 22107-7, 90100-8, 97663-8 ####[facility] LABIA [id number] [place] [address] [place] Ferritin SerPl-mCncon 2022 Ferritin [Mass/Vol] 667.0 ng/mL High 14.7-205.1 [facility] Comment on above: Order Comment: Speci men Type: BLOOD SPECIMENOrdering Facility: [facility] Address: [address] [place] [address] Performed By: #### 5 0190-8, 59083-8, 2276-4 ####[facility] LABIA [id number] [place] [address] [place] HBV core Ab Ser Qlon 023 HBV core Ab Ql (S) Positive Abnormal Negative [facility] Comment on above: Order Comment: Speci men Type: BLOOD SPECIMENOrdering Facility: [facility] Address: [address] [place] [address] Result Comment: The result suggests either current or past infection with Hepatitis B virus. Non-specific reactivity may at times be seen with this test due to some underlying phenomena. Please correlate with HBsAg result and medical history. Performed By: #### 5 195-3, 66896-1, 89750-0, AHAVG ####[facility] LABCLIA [id number] [place] [id number] [place] HBV surface Ab Ql (S)on 03-23 HBV surface Ab Qn (S) 45.61 mIU/mL Normal [facility] Comment on above: Order Comment: Speci men Type: BLOOD SPECIMENOrdering Facility: [facility] Address: [address] [place] [address] Result Comment: <8 m IU/mL: No serological evidence of immunity to Hepatitis B Virus. >/= 8 to <12 mIU/mL: No serological evidence of immunity to Hepatitis B Virus. >/= 12 mIU/mL: Consistent with serological evidence of immunity to Hepatitis B Virus. Performed By: #### 5 195-3, 09444-0, 08669-4, AHAVG ####[facility] LABCLIA [id number] [address] OF [facility] HBV surface Ab Ser Qlon 03-23 HBV surface Ab Ql (S) Positive Normal [facility] Comment on above: Order Comment: Speci men Type: BLOOD SPECIMENOrdering Facility: [facility] Address: [address] [place] [address] Result Comment: Cons istent with serological evidence of immunity to Hepatitis B Virus. Performed By: #### 5 195-3, 37222-4, 14234-6, AHAVG ####[facility]CLIA [id number] [address] STATES [place] HBV surface Ag Ser Qlon 03-23 HBV surface Ag Ql (S) Negative Normal Negative [facility] Comment on above: Order Comment: Speci men Type: BLOOD SPECIMENOrdering Facility: [facility] Address: [address] [place] [address] Performed By: #### 5 195-3, 09361-8, 34858-2, AHAVG ####[facility]CLIA [id number] [address] OF [place] HCV Ab Ser Qlon 04-12-2023 HCV Ab Ql (S) Negative Normal Negative [facility] Comment on above: Order Comment: Speci men Type: BLOOD SPECIMENOrdering Facility: [facility] Address: [address] [place] [address] Result Comment: The result suggests no evidence of active infection with Hepatitis C virus. Should recent infection be suspected, repeat testing may be considered 4-6 weeks after this draw. Performed By: #### 1 6128-1 ####[facility] LABCLIA [id number] [place] [address] [place] HEPATITIS A ANTIBODY, IGGon 04-12-2023 HAV IgG Ql (S) Negative Normal [facility] Comment on above: Order Comment: Jim etienne Type: BLOOD SPECIMENOrdering Facility: [facility] Address: [address] [place] [address] Result Comment: No s erological evidence of immunity to Hepatitis A Virus. Performed By: #### 5 195-3, 52814-4, 27464-3, AHAVG ####[facility]CLIA [id number] [address] OF [place] HFE (HEMOCHROMATOSIS)on 03-23 INTERPRETATION (HEMDNA) Normal [facility] Comment on above: Order Comment: Jim etienne Type: BLOOD SPECIMENOrdering Facility: [facility] Address: [address] [place] [address] Result Comment: HFE (Hemochromatosis) Laboratory Accession Number: [id number] Result: C282Y: WT H63D: WT S65C: WT Interpretation: No variant detected: The DNA sample is negative for the C282Y, H63D and S65C variants of the HFE gene. Variants at these loci are commonly associated with hereditary hemochromatosis (HH). Approximately 13% of clinically affected individuals may have this negative result, suggesting other etiologies for hereditary hemochromatosis. Methodology: Patient DNA is evaluated for C282Y (c.845G>A, p.Zpt553Vbo, NM_000410.3), H63D (c.187C>G, p.Tik50Nym, NM_000410.3) and S65C variant (c.193A>T, p.[id number], NM_000410.3) missense variants in the HFE gene (NM_000410.3, GRCh37(hg19)) by multiplex polymerase chain reaction (PCR) followed by melting curve analysis. Disclaimer: This test was developed and its performance characteristics determined by [facility]'s [facility] [place] ([facility]). It has not been cleared or approved by the FDA. [facility] is regulated under CLIA as certified to perform high- complexity testing. This test is used for clinical purposes. It should not be regarded as investigational or for research. Testing and interpretation performed at [facility], [address] [place] [address]. CLIA Number: [id number] As reviewed by Saritha Swan MD Performed By: #### H EMDNA ####CLARITY ILLUMINA LIMSCLIA [id number] [address] OF [facility] HbA1c (Bld)on 04-12-2023 Average glucose Estimated from glycated hemoglobin (Bld) [Mass/Vol] 85 mg/dL Normal [facility] Comment on above: Order Comment: Speccari men Type: BLOOD SPECIMEN Ordering Facility: [facility] Address: [address] [place] [address] Result Comment: eAG: (Estimated average glucose) is a calculated value from HgbA1c and is cash posting representative of the average blood glucose level in the last 2-3 month period. Performed By: #### 3 4528-0 #### [facility] CLIA [id number] [address] [place] [address] OF [facility] HbA1c (Bld) [Mass fraction] 4.6 % Normal 4.3-5.6 [facility] Comment on above: Order Comment: Jim etienne Type: BLOOD SPECIMEN Ordering Facility: [facility] Address: [address] [address] Result Comment: Amer ican Diabetes Association guidelines indicate that patients with HgbA1c in the range 5.7-6.4% are at increased risk for development of diabetes, and intervention by lifestyle modification may be beneficial. HgbA1c greater or equal to 6.5% is considered diagnostic of diabetes. Performed By: #### 3 4528-0 #### [facility] CLIA [id number] [address] [place] [address] [place] Hepatic function 2000 panelo n 04-12-2023 Albumin [Mass/Vol] 4.4 g/dL Normal 3.9-4.9 [facility] Comment on above: Order Comment: Speci men Type: BLOOD SPECIMENOrdering Facility: [facility] Address: [address] [address] Performed By: #### 2 4321-2, 1824-9, 43673-9, 2063-10 ####[facility] LAB[facility]IA [id number] [place] [address] [place] ALP [Catalytic activity/Vol] 78 U/L Normal 34-123 [facility] Comment on above: Order Comment: Speci men Type: BLOOD SPECIMENOrdering Facility: [facility] Address: [address] [address] Performed By: #### 2 4321-2, 9, 05025-3, 2063-10 ####[facility] LAB[facility]IA [id number] [place] [address] [place] ALT [Catalytic activity/Vol] 81 U/L High 7-38 [facility] Comment on above: Order Comment: Speci men Type: BLOOD SPECIMENOrdering Facility: [facility] Address: [address] Performed By: #### 2 4321-2, 9, 06135-0, 2063-10 ####[facility] LAB[facility]IA [id number] [place] [address] [place] AST [Catalytic activity/Vol] 76 U/L High 13-35 [facility] Comment on above: Order Comment: Speci men Type: BLOOD SPECIMENOrdering Facility: [facility] Address: [address] Performed By: #### 2 4321-2, 9, 47352-1, 2063-10 ####[facility] LABIA [id number] [place] [address] [place] Bilirubin [Mass/Vol] 0.5 mg/dL Normal 0.2-1.3 [facility] Comment on above: Order Comment: Speci men Type: BLOOD SPECIMENOrdering Facility: [facility] Address: [address] [place] [address] Performed By: #### 2 4321-2, 9, 56276-7, 2063-10 ####[facility] [id number] [place] [address] [place] Bilirubin.conjugated [Mass/Vol] mg/dL Normal <0.2 [facility] Comment on above: Order Comment: Speci men Type: BLOOD SPECIMENOrdering Facility: [facility] Address: [address] [place] [address] Performed By: #### 2 4321-2, 9, 38167-7, 2063-10 ####[facility] [id number] [place] [address] [place] Protein [Mass/Vol] 7.7 g/dL Normal 6.3-8.0 [facility] Comment on above: Order Comment: Speci men Type: BLOOD SPECIMENOrdering Facility: [facility] Address: [address] [place] [address] Performed By: #### 2 4321-2, 9, 04789-3, 2063-10 ####[facility] [id number] [place] [address] [place] Iron and Iron binding capaci ty panelon 04-12-2023 Iron [Mass/Vol] 138 ug/dL Normal 41-186 [facility] Comment on above: Order Comment: Speci men Type: BLOOD SPECIMENOrdering Facility: [facility] Address: [address] [place], [place] [address] Performed By: #### 5 0190-8, 97874-8, 2275-10 ####[facility] LABIA [id number] [place] [address] [place] Iron binding capacity [Mass/Vol] 408 ug/dL High 232-386 [facility] Comment on above: Order Comment: Speci men Type: BLOOD SPECIMENOrdering Facility: [facility] Address: [address] [place] [address] Performed By: #### 5 0190-8, 80008-8, 2275-10 ####[facility] LABIA [id number] [place] [address] [place] Iron/TIBC [Molar ratio] 33.8 % Normal 15.0-57.0 [facility] Comment on above: Order Comment: Speci men Type: BLOOD SPECIMENOrdering Facility: [facility] Address: [address] [place] [address] Performed By: #### 5 0190-8, 95343-6, 2275-10 ####[facility] LABIA [id number] [place] [address] [place] Taylor-1 extractable nuclear Ab Qn (S)on 04-12-2023 TAYLOR 1 ANTIBODY QUAL Negative Normal Negative [facility] Comment on above: Order Comment: Speci men Type: BLOOD SPECIMENOrdering Facility: [facility] Address: [address] [place] [address] Result Comment: Anti -TAYLOR-1 antibody is used as an aid in diagnosis of polymyositis and dermatomyositis especially with pulmonary involvement. A negative result cannot rule out polymyositis or dermatomyositis. Clinical correlation is required. Test Methodology: Multiplex flow immunoassay. Performed By: #### 1 7791-5, 82183-8, 18167-1, 40812-0, 70893-0, ANAIFR, 90174-1, 15957-6, 09914-8, 43668-9, 53875-0, 11169-3 ####[facility] LABCLIA [id number] [facility] [address] [place] LKM ABon 04-12-2023 LIVER-KIDNEY MICROSOMAL ABS <1:20 Normal <1:20 [facility] Comment on above: Order Comment: Speci men Type: BLOOD SPECIMEN Ordering Facility: [facility] Address: [address] [address] Result Comment: INTE RPRETIVE INFORMATION: Anydm-Otgrfc-Uklbdmttz Abs, IgG Liver-Kidney Microsome IgG antibody (anti-LKM), as detected by indirect immunofluorescent antibody (IFA) techniques, may be observed in patients with autoimmune hepatitis type 2 (AIH-2), AIH-2 associated with autoimmune nydcacwbjjzqgpxwwr-ctachaoilss-eyaevvlxyo dystrophy (APECED), viral hepatitis C or D, and some forms of drug-induced hepatitis. This IFA does not differentiate among the four types of LKM antibodies (LKM-1, LKM-2, LKM-3, and a fourth type that recognizes CY and CY antigens). Of these, anti-LKM-1 (cytochrome R270ODJ3) IgG antibodies are considered specific for AIH-2. This test was developed and its performance characteristics determined by [facility]. It has not been cleared or approved by the US Food and Drug Administration. This test was performed in a CLIA certified laboratory and is intended for clinical purposes. Performed By: [facility] [address] [place] [address] Lab Systems Analyst: Luis Blunt MD, PhD CLIA Number: [id number] Performed By: #### 3 4528-0 #### [facility] CLIA [id number] [address] [facility] [address] [place] Lipid 1996 panelon 3 Cholesterol [Mass/Vol] 272 mg/dL High <200 [facility] Comment on above: Order Comment: Speci men Type: BLOOD SPECIMENOrdering Facility: [facility] Address: [address] [place], [place] [address] Result Comment: <200 mg/dL, Desirable 200-239 mg/dL, Borderline high >239 mg/dL, High Performed By: #### 5 0190-8, 43667-9, 2275- ####[facility] LABCLIA [id number] [address] [place] Cholesterol in HDL [Mass/Vol] 51 mg/dL Normal >39 [facility] Comment on above: Order Comment: Speci men Type: BLOOD SPECIMENOrdering Facility: [facility] Address: [address] [address] Result Comment: 40-5 9 mg/dL, Acceptable >59 mg/dL, High: Negative risk factor for coronary heart disease <40 mg/dL, Low: Positive risk factor for coronary heart disease Performed By: #### 5 0190-8, 68378-7, 2275-10 ####[facility] LABCLIA [id number] [address] [place] [facility] Cholesterol in LDL [Mass/Vol] 173 mg/dL High <100 [facility] Comment on above: Order Comment: Speci men Type: BLOOD SPECIMENOrdering Facility: [facility] Address: [address] [place] [address] Result Comment: <100 mg/dL, Optimal 100-129 mg/dL, Near optimal/above optimal 130-159 mg/dL, Borderline high 160-189 mg/dL, High >189 mg/dL, Very high Secondary prevention optimal LDL Cholesterol levels are recommended to be < 70 mg/dL Performed By: #### 5 0190-8, 42777-9, 2275-10 ####[facility] LABCLIA [id number] [address] [place] Cholesterol in LDL/Cholesterol in HDL [Mass ratio] 3.39 {ratio} High <2.54 [facility] Comment on above: Order Comment: Speci men Type: BLOOD SPECIMENOrdering Facility: [facility] Address: [address] [place] [address] Result Comment: Refe emice: 1. National Cholesterol Education Program ATP III Guideline At-A-Glance Quick Desk Reference: National Heart, Lung, and Blood [place]. National Institutes of Health. 2001: NIH Publication No. 01-3305. 2. An International Atherosclerosis Society position paper: global recommendations for the management of dyslipidemia: executive summary, Atherosclerosis. 2014: 232(2):410-413. Performed By: #### 5 0190-8, 30045-5, 2275- ####[facility] LABCLIA [id number] [place] [address] [place] Cholesterol in VLDL [Mass/Vol] 48 mg/dL High <30 [facility] Comment on above: Order Comment: Speci men Type: BLOOD SPECIMENOrdering Facility: [facility] Address: [address] [place] [address] Performed By: #### 5 0190-8, 87107-7, 2275- ####[facility] LABCLIA [id number] [address] [place] Cholesterol non HDL [Mass/Vol] 221 mg/dL High <130 [facility] Comment on above: Order Comment: Liliami lowell Type: BLOOD SPECIMENOrdering Facility: [facility] Address: [address] [place] [address] Result Comment: <130 mg/dL, Optimal 130-159 mg/dL, Near optimal/above optimal 160-189 mg/dL, Borderline high 190-219 mg/dL, High >219 mg/dL, Very high Secondary prevention optimal non HDL Cholesterol levels are recommended to be <100 mg/dL Performed By: #### 5 0190-8, 45293-3, 2275- ####[facility] LABCLIA [id number] [address] [place] Cholesterol.total/Shannon sterol in HDL [Mass ratio] 5.33 {ratio} High <5.10 [facility] Comment on above: Order Comment: Liliami lowell Type: BLOOD SPECIMENOrdering Facility: [facility] Address: [address] [place] [address] Performed By: #### 5 0190-8, 42199-2, 2275-4 ####[facility] LABIA [id number] [address] [place] FASTING TIME 12 hrs Normal [facility] Comment on above: Order Comment: Speci men Type: BLOOD SPECIMENOrdering Facility: [facility] Address: [address] [place], [place] [address] Performed By: #### 5 0190-8, 15017-6, 2275- ####[facility] LABIA [id number] [address] STATES OF [facility] Triglyceride [Mass/Vol] 238 mg/dL High <150 [facility] Comment on above: Order Comment: Speci men Type: BLOOD SPECIMENOrdering Facility: [facility] Address: [address] [place] [address] Result Comment: <150 mg/dL, Normal 150-199 mg/dL, Borderline high 200-499 mg/dL, High >499 mg/dL, Very high Performed By: #### 5 0190-8, 32521-4, 2275-10 ####[facility] [id number] [address] Mitochondria Ab IF Ql (S)on 04-12-2023 Mitochondria M2 Ab IA Qn (S) 2.4 Units Normal <=20.0 [facility] Comment on above: Order Comment: Speci men Type: BLOOD SPECIMENOrdering Facility: [facility] Address: [address] [place], [place] [address] Performed By: #### 1 7791-5, 28264-7, 17629-4, 05057-3, 22067-3, ANAIFR, 30920-6, 88636-4, 73844-5, 88724-1, 61438-9, 14718-4 ####[facility] LABIA [id number] [address] [id number] [address] [place] Mitochondria M2 Ab Ql (S) Negative Normal Negative [facility] Comment on above: Order Comment: Speci men Type: BLOOD SPECIMENOrdering Facility: [facility] Address: [address] [place] [address] Result Comment: Anti -mitochondrial antibody test is used as an aid in diagnosis of primary biliary cholangitis. Clinical correlation is required. Performed By: #### 1 7791-5, 91615-9, 69441-0, 67867-3, 78006-9, ANAIFR, 67153-7, 41271-8, 93696-0, 33332-7, 17579-7, 44881-7 ####[facility] LABCLIA [id number] [place] [address] [place] PHOSPHATIDYLETHANOL (PETH)on 04-12-2023 EER PETH See Note Normal [facility] Comment on above: Order Comment: Speci men Type: BLOOD SPECIMEN Ordering Facility: [facility] Address: [address] [place] [address] Result Comment: Auth orized individuals can access the [employer] Two B Enhanced Report using the following link: [email or web address] Performed By: [facility] [address] [place] [address] Lab Systems Analyst: Luis Blunt MD, PhD [place] Number: [id number] Performed By: #### 3 4528-0 #### [facility] CLIA [id number] [address] [place] [address] [place] PETH 16:0/18.2 (PLPETH) 228 ng/mL Normal [facility] Comment on above: Order Comment: Speci men Type: BLOOD SPECIMEN Ordering Facility: [facility] Address: [address] [place] [address] Performed By: #### 3 4528-0 #### [facility] CLIA [id number] [facility] [place] [address] [place] PETH 16:0/18:1 (POPETH) 243 ng/mL Normal [facility] Comment on above: Order Comment: Speci men Type: BLOOD SPECIMEN Ordering Facility: [facility] Address: [place] [address] Result Comment: INTE RPRETIVE INFORMATION:Phosphatidylethanol (PEth), Whole [...] developed and its performance characteristics determined by [facility]. It has not been cleared or approved by the U.S. Food and Drug Administration. This test was performed in a CLIA-certified laboratory and is intended for clinical purposes. Performed By: #### 3 4528-0 #### [facility] CLIA [id number] [address] [place] [address] [place] PT panel Coag (PPP)on 2022 INR Coag (PPP) [Relative time] 1.0 {INR} Normal 0.9-1.3 [facility] Comment on above: Order Comment: Jim etienne Type: BLOOD SPECIMEN Ordering Facility: [facility] Address: [address] [place] [address] Result Comment: Adrienne min K Antagonist (VKA) Therapeutic Range: INR 2 to 3 (Target INR of 2.5) Note: For patients treated with VKA drugs, such as warfarin, the [employer] [employer] 2012 Guideline recommends [...] GH, et al. Chest 2012, 141:7S-47S Mamadou NAGEL et al. [facility] 2017, 70: 252-289 Performed By: #### 3 4528-0 #### [facility] CLIA [id number] [address] [place] [address] [place] PT Coag (PPP) [Time] 10.4 s Normal 9.7-13.0 [facility] Comment on above: Order Comment: Jim etienne Type: BLOOD SPECIMEN Ordering Facility: [facility] Address: [address] [place] [address] Performed By: #### 3 4528-0 #### [facility] CLIA [id number] [address] [place] [place] [address] [place] Ribonucleoprotein extractabl e nuclear Ab Qn (S)on 04-12-2023 ANTI-TRENCH PIPE LAYER HELPER QUAL Negative Normal Negative [facility] Comment on above: Order Comment: Speci men Type: BLOOD SPECIMENOrdering Facility: [facility] Address: [address] [place] [address] Performed By: #### 1 7791-5, 52841-9, 48106-6, 14116-0, 73848-0, ANAIFR, 96033-4, 60071-7, 58782-1, 98416-0, 94759-4, 73622-9 ####[facility] [id number] [place] [address] [place] RIBOSOMAL TRENCH PIPE LAYER HELPER QUAL Negative Normal Negative [facility] Comment on above: Order Comment: Liliami lowell Type: BLOOD SPECIMENOrdering Facility: [facility] Address: [address] [place] [address] Result Comment: Anti -Ribosomal RNA (Ribosomal P) antibody is used as an aid in diagnosis of systemic autoimmune diseases especially systemic lupus erythematosus and mixed connective tissue disease. Cross-reactivity with Anti-rico antibody is not uncommon. Clinical correlation is required. Test Methodology: Multiplex flow immunoassay. Performed By: #### 1 7791-5, 81783-9, 42211-0, 53567-0, 65387-0, ANAIFR, 90983-6, 67702-3, 30336-1, 89102-8, 81542-2, 17964-7 ####[facility] LABIA [id number] [place] [address] [place] SCL-70 extractable nuclear I gG IA Qn (S)on 04-12-2023 SCLERODERMA AB QUAL Negative Normal Negative [facility] Comment on above: Order Comment: Liliami lowell Type: BLOOD SPECIMENOrdering Facility: [facility] Address: [address] [place] [address] Performed By: #### 1 7791-5, 67185-5, 58630-8, 18311-1, 49960-1, ANAIFR, 83990-9, 58357-0, 66595-3, 65591-6, 16849-3, 36450-5 ####[facility] [id number] [place] [address] [place] SCLERODERMA IGG AB <0.2 Normal <1.0 [facility] Comment on above: Order Comment: Jim etienne Type: BLOOD SPECIMENOrdering Facility: [facility] Address: [address] [place] [address] Result Comment: Scl- 70/Scleroderma antibody test is used as an aid in diagnosis of systemic sclerosis especially the diffuse cutaneous form. A negative result cannot rule out systemic sclerosis. The final interpretation should consider clinical picture and other test results such as anti-centromere antibody. Test Methodology: Multiplex flow immunoassay. Performed By: #### 1 7791-5, 14058-4, 12964-5, 46825-5, 81010-8, ANAIFR, 16413-2, 78148-3, 07366-3, 86398-9, 49778-7, 51471-4 ####[facility] [id number] [place] [address] [place] Sjogrens syndrome-A extracta ble nuclear Ab Qn (S)on 04-12-2023 SSA ANTIBODY QUAL Negative Normal Negative [facility] Comment on above: Order Comment: Jim etienne Type: BLOOD SPECIMENOrdering Facility: [facility] Address: [address] [place] [address] Performed By: #### 1 7791-5, 03851-8, 49501-3, 32342-6, 94263-5, ANAIFR, 39510-7, 75783-7, 44406-8, 60432-5, 08367-5, 21261-8 ####[facility] LABIA [id number] [place] [address] [place] Sjogrens syndrome-B extracta ble nuclear Ab Qn (S)on 04-12-2023 SSB ANTIBODY QUAL Negative Normal Negative [facility] Comment on above: Order Comment: Speci men Type: BLOOD SPECIMENOrdering Facility: [facility] Address: [address] [place] [address] Performed By: #### 1 7791-5, 73986-5, 42601-4, 26103-6, 10813-2, ANAIFR, 05951-7, 28312-6, 13407-0, 90299-5, 39184-6, 34567-6 ####[facility] LABCLIA [id number] [address] [place] Rico extractable nuclear Ig G Qn (S)on 04-12-2023 SM ANTIBODY QUAL Negative Normal Negative [facility] Comment on above: Order Comment: Speci lowell Type: BLOOD SPECIMENOrdering Facility: [facility] Address: [address] [place] [address] Result Comment: Anti -Sm (Rico) antibody is used as an aid in diagnosis of systemic lupus erythematosus and its presence is associated with renal disease. A negative result cannot rule out systemic lupus erythematosus. Clinical correlation is required. Test Methodology: Multiplex flow immunoassay. Performed By: #### 1 7791-5, 14473-6, 12936-7, 59044-7, 52109-9, ANAIFR, 41913-5, 34140-7, 95413-3, 00436-2, 55607-4, 00884-4 ####[facility] LABCLIA [id number] [place] [address] [place] Smooth muscle Ab Ql (S)on ACTIN SMOOTH MUSCLE IGG QUALITATIVE Negative Normal Negative [facility] Comment on above: Order Comment: Liliami lowell Type: BLOOD SPECIMENOrdering Facility: [facility] Address: [address] [place] [address] Performed By: #### 1 7791-5, 44634-8, 32710-7, 96457-6, 94756-0, ANAIFR, 95041-2, 46139-6, 87136-7, 97930-3, 69066-0, 95485-4 ####[facility] LABCLIA [id number] [address] [place] ACTIN SMOOTH MUSCLE IGG QUANTITATIVE 3 Units Normal <20 [facility] Comment on above: Order Comment: Speci men Type: BLOOD SPECIMENOrdering Facility: [facility] Address: [address] [place] [address] Performed By: #### 1 7791-5, 67072-5, 75948-5, 90346-8, 66118-4, ANAIFR, 91534-8, 35807-4, 68554-4, 84184-0, 88277-4, 49784-5 ####[facility] [id number] [address] [place] dsDNA Ab Ser IA-aCncon 04-12 DNA double strand Ab IA Qn (S) <12 Normal <30 [facility] Comment on above: Order Comment: Speci men Type: BLOOD SPECIMENOrdering Facility: [facility] Address: [address] [place] [address] Result Comment: Nega tive for ds DNA Antibodies. <30 IU/mL Negative 30-74 IU/mL Equivocal >74 IU/mL Positive Performed By: #### 1 7791-5, 82669-3, 76860-9, 60502-0, 34104-5, ANAIFR, 38666-4, 33879-8, 59101-1, 41733-7, 18589-2, 41570-6 ####[facility] [id number] [address] [place] CNPNon 04-11-2023 CNPN Telephone (GASTA5) -------- RICA STOUT ([id number]) 1995 F Date Time Provider Department 04/11/23 MARY CAGLE ([facility]) GASTA5 During your visit today, we recorded [...] Encounter Status:Closed [facility] RICA STOUT ([id number]) 1995 F Date Time Provider Department 04/11/23 JEANNIE JARVIS GASTA5 During your visit today, we recorded the following information about you: Gretta Ribeiro 04/11/2023 3:29 PM Signed Received outside medical records from [facility], scanned into her chart under scanned docs tab in [employer] Allergies As of Date: 04/11/2023 Noted Allergy Reaction PENICILLINS 01/28/2023 2 - Rash Date Reviewed: 01/28/2023 Reviewed by: Ghulam Villalobos, BREE - Fully Assessed Reason for Visit: Received [...] Status:Closed by GRETTA RIBEIRO on 07/23/23 Normal [facility] MR cervical spine wo/w conon 04-01-2023 MR cervical spine wo/w con [facility] [place] [address] [place] [address] MRI Report Signed Patient: Rica Stout MR#: [id number] 39 : 1995 Acct:[id number] Age/Sex: 27 / F ADM Date: 03/27/23 Loc: Room: 7I3338-8 Type: ADM IN Attending Dr: Marc Giron [...] Lowell Blake M.D.04/01/2023 5:09 PM Dictation Location: [place] [address] Transcribed By: RAJESH 04/01/231708 Dictated By: Lowell Blake II, MD 04/01/231704 Signed By: 04/01/231708 Normal [facility] US venous duplex LE BIon US venous duplex LE BI [facility] [place] [address] Ultrasound Report Signed Patient: Rica Stout MR#: [id number] 39 : 1995 Acct:[id number] Age/Sex: 27 / F ADM Date: 03/27/23 Loc: Room: [id number] Type: ADM IN Attending Dr: Marc Giron [...] Dave Gonzalez M.D.04/01/2023 3:37 PM Dictation Location: [place] [address] Tech: Nia Hill Transcribed By: RAJESH 04/01/231536 Dictated By: Dave Gonzalez MD 04/01/231536 Signed By: 04/01/231536 Normal [facility] ECG 12 lead ECGon 03-31-2023 ECG 12 lead ECG [facility] [place] [address] [place] [address] Electrocardiograph Report Signed Patient: Rica Stout MR#: [id number] 39 : 1995 Acct:[id number] Age/Sex: 27 / F ADM Date: 03/27/23 Loc: Room: [address] [place] [address] Type: ADM IN Attending Dr: Marc Giron [...] 0 03/31/23 2019 Normal [facility] Alanine aminotransferase [En zymatic activity/volume] in Serum or PlasmaOrdered By: Marc Giron on 03-28-2023 ALT [Catalytic activity/Vol] 31 U/L Normal 7-52 [facility] Comment on above: Performed By: #### C REAT, ESR, CRP, HEPATIC, CK, CBC, MISC LAB #### [facility] [address] [place], [place] [id number] [place] #### ANTI-KU AB, MITOM2, CH50, PAT, RNA POLYMR, C3, C4 #### [facility] , Albumin [Mass/volume] in Ser um or Plasma by Bromocresol green (BCG) dye binding methoOrdered By: Marc Mack on 03-28-2023 Albumin BCG dye [Mass/Vol] 3.3 g/dL 3.5-5.7 [facility] Alkaline phosphatase [Enzyma tic activity/volume] in Serum or PlasmaOrdered By: Marc Giron on 03-28-2023 ALP [Catalytic activity/Vol] 95 U/L Normal 34-104 [facility] Comment on above: Performed By: #### C REAT, ESR, CRP, HEPATIC, CK, CBC, MISC LAB #### [facility] [address] #### ANTI-KU AB, MITOM2, CH50, PAT, RNA POLYMR, C3, C4 #### [facility] , Aspartate aminotransferase [ Enzymatic activity/volume] in Serum or PlasmaOrdered By: Marc Giron on 03-28-2023 AST [Catalytic activity/Vol] 55 U/L High 13-39 [facility] Comment on above: Performed By: #### C REAT, ESR, CRP, HEPATIC, CK, CBC, MISC LAB #### [place] [address] [place] #### ANTI-KU AB, MITOM2, CH50, PAT, RNA POLYMR, C3, C4 #### [facility] , Automated basophil %Ordered By: Marc Giron on 03-28-2023 Basophils/100 WBC (Bld) 1.4 % Normal . [facility] Comment on above: Performed By: #### C REAT, ESR, CRP, HEPATIC, CK, CBC, MISC LAB #### [facility] [address] [place] [address] [place] #### ANTI-KU AB, MITOM2, CH50, PAT, RNA POLYMR, C3, C4 #### [facility] , Automated basophil countOrde red By: Marc Giron on 03-28-2023 Basophils (Bld) [#/Vol] 0.1 10*3/uL Normal 0.0-0.2 [facility] Comment on above: Result Comment: PERF ORMED BY: [place] [address] PATHOLOGIST TROUBLE DISPATCHER RUIZ CLIFTON M.D. Performed By: #### C REAT, ESR, CRP, HEPATIC, CK, CBC, MISC LAB #### [place] [address] [place] #### ANTI-KU AB, MITOM2, CH50, PAT, RNA POLYMR, C3, C4 #### [facility] , Automated blood monocyte cou ntOrdered By: Marc Giron on 03-28-2023 Monocytes (Bld) [#/Vol] 0.5 10*3/uL Normal 0.0-0.8 [facility] Comment on above: Performed By: #### C REAT, ESR, CRP, HEPATIC, CK, CBC, MISC LAB #### [place] [address] [place] #### ANTI-KU AB, MITOM2, CH50, PAT, RNA POLYMR, C3, C4 #### [facility] , Automated eosinophil %Ordere d By: Marc Giron on 03-28-2023 Eosinophils/100 WBC (Bld) 5.0 % Normal . [facility] Comment on above: Performed By: #### C REAT, ESR, CRP, HEPATIC, CK, CBC, MISC LAB #### [place] [address] [place] #### ANTI-KU AB, MITOM2, CH50, PAT, RNA POLYMR, C3, C4 #### [facility] , Automated eosinophil countOr dered By: Marc Giron on 03-28-2023 Eosinophils (Bld) [#/Vol] 0.3 10*3/uL Normal 0.0-0.45 [facility] Comment on above: Performed By: #### C REAT, ESR, CRP, HEPATIC, CK, CBC, MISC LAB #### [place] [address] [place] #### ANTI-KU AB, MITOM2, CH50, PAT, RNA POLYMR, C3, C4 #### [facility] , Automated monocyte %Ordered By: Marc Giron on 03-28-2023 Monocytes/100 WBC (Bld) 7.5 % Normal . [facility] Comment on above: Performed By: #### C REAT, ESR, CRP, HEPATIC, CK, CBC, MISC LAB #### [place] [address] [place] #### ANTI-KU AB, MITOM2, CH50, PAT, RNA POLYMR, C3, C4 #### [facility] , Automated neutrophil %Ordere d By: Marc Giron on 03-28-2023 Neutrophils/100 WBC (Bld) 55.2 % Normal . [facility] Comment on above: Performed By: #### C REAT, ESR, CRP, HEPATIC, CK, CBC, MISC LAB #### [place] [address] [place] #### ANTI-KU AB, MITOM2, CH50, PAT, RNA POLYMR, C3, C4 #### [facility] , Bilirubin.total [Mass/volume ] in Serum or PlasmaOrdered By: Marc Giron on 03-28-2023 Bilirubin [Mass/Vol] 0.3 mg/dL Normal 0.3-1.0 [facility] Comment on above: Performed By: #### C REAT, ESR, CRP, HEPATIC, CK, CBC, MISC LAB #### [place] [address] [place] #### ANTI-KU AB, MITOM2, CH50, PAT, RNA POLYMR, C3, C4 #### [facility] , Calcium [Mass/volume] in Ser um or PlasmaOrdered By: Marc Giron on 03-28-2023 Calcium [Mass/Vol] 9.2 mg/dL Normal 8.6-10.3 [facility] Comment on above: Performed By: #### C REAT, ESR, CRP, HEPATIC, CK, CBC, MISC LAB #### [address] [place] [address] [place] #### ANTI-KU AB, MITOM2, CH50, PAT, RNA POLYMR, C3, C4 #### [facility] , Carbon dioxide, total [Moles /volume] in Serum or PlasmaOrdered By: Marc Giron on 03-28-2023 CO2 [Moles/Vol] 23.5 mmol/L Normal 21.0-31.0 [facility] Comment on above: Performed By: #### C REAT, ESR, CRP, HEPATIC, CK, CBC, MISC LAB #### [facility] [address] [place] [address] #### ANTI-KU AB, MITOM2, CH50, PAT, RNA POLYMR, C3, C4 #### [facility] , Chloride [Moles/volume] in S caitlyn or PlasmaOrdered By: Marc Giron on 03-28-2023 Chloride [Moles/Vol] 106 mmol/L Normal 98-107 [facility] Comment on above: Performed By: #### C REAT, ESR, CRP, HEPATIC, CK, CBC, MISC LAB #### [facility] [address] [place] [address] [place] #### ANTI-KU AB, MITOM2, CH50, PAT, RNA POLYMR, C3, C4 #### [facility] , Complete Blood Count Auto Di ffon 03-28-2023 Mean Corpuscular HGB Conc 33.7 g/dL Normal 32.0-35.0 [facility] Comment on above: Performed By: #### C REAT, ESR, CRP, HEPATIC, CK, CBC, MISC LAB #### [facility] [address] [place] [address] [place] #### ANTI-KU AB, MITOM2, CH50, PAT, RNA POLYMR, C3, C4 #### [facility] , NRBC% 0.2 /100{WBC} Normal 0-0.5 [facility] Comment on above: Performed By: #### C REAT, ESR, CRP, HEPATIC, CK, CBC, MISC LAB #### [place] [address] [place] #### ANTI-KU AB, MITOM2, CH50, PAT, RNA POLYMR, C3, C4 #### [facility] , Comprehensive Metabolic Pane antione 03-28-2023 Albumin [Mass/Vol] 3.3 g/dL Low 3.5-5.7 [facility] Comment on above: Performed By: #### C REAT, ESR, CRP, HEPATIC, CK, CBC, MISC LAB #### [place] [address] [place] #### ANTI-KU AB, MITOM2, CH50, PAT, RNA POLYMR, C3, C4 #### [facility] , Creatinine Clr Calc Pharmacy 169.70 Normal [facility] Comment on above: Performed By: #### C REAT, ESR, CRP, HEPATIC, CK, CBC, MISC LAB #### [place] [address] [place] #### ANTI-KU AB, MITOM2, CH50, PAT, RNA POLYMR, C3, C4 #### [facility] , GFR/1.73 sq M.predicted MDRD (S/P/Bld) [Vol rate/Area] mL/min/{1.73_m2} Normal [facility] Comment on above: Performed By: #### C REAT, ESR, CRP, HEPATIC, CK, CBC, MISC LAB #### [place] [address] [place] #### ANTI-KU AB, MITOM2, CH50, PAT, RNA POLYMR, C3, C4 #### [facility] , Creatinine [Mass/volume] in Serum or PlasmaOrdered By: Marc Giron on 03-28-2023 Creatinine [Mass/Vol] 0.43 mg/dL Low 0.60-1.20 [facility] Comment on above: Performed By: #### C REAT, ESR, CRP, HEPATIC, CK, CBC, MISC LAB #### [facility] [address] [place] [address] #### ANTI-KU AB, MITOM2, CH50, PAT, RNA POLYMR, C3, C4 #### [facility] , Erythrocyte distribution wid th [Ratio] by Automated countOrdered By: Marc Mack on 03-28-2023 Erythrocyte distribution width (RBC) [Ratio] 14.1 % Normal 11.9-15.3 [facility] Comment on above: Performed By: #### C REAT, ESR, CRP, HEPATIC, CK, CBC, MISC LAB #### [address] #### ANTI-KU AB, MITOM2, CH50, PAT, RNA POLYMR, C3, C4 #### [facility] , Erythrocytes [#/volume] in B lood by Automated countOrdered By: Marc Giron on 03-28-2023 RBC (Bld) [#/Vol] 3.35 10*6/uL Low 3.60-5.00 [facility] Comment on above: Performed By: #### C REAT, ESR, CRP, HEPATIC, CK, CBC, MISC LAB #### [address] #### ANTI-KU AB, MITOM2, CH50, PAT, RNA POLYMR, C3, C4 #### [facility] , Glucose [Mass/volume] in Ser um or PlasmaOrdered By: Marc Giron on 03-28-2023 Glucose [Mass/Vol] 98 mg/dL Normal 70-100 [facility] Comment on above: ADA recommended refe rence rangeRandom Glucose Reference Range is dependent on time and content of last meal. Glucose of more than 200 mg/dL in a nonstressed, ambulatory subject supports the diagnosis of Diabetes Mellitus. Result Comment: [place] om Glucose Reference Range is dependent on time and content of last meal. Glucose of more than 200 mg/dL in a nonstressed, ambulatory subject supports the diagnosis of Diabetes Mellitus. ADA recommended reference range Performed By: #### C REAT, ESR, CRP, HEPATIC, CK, CBC, MISC LAB #### [address] #### ANTI-KU AB, MITOM2, CH50, PAT, RNA POLYMR, C3, C4 #### [facility] , Hematocrit [Volume Fraction] of Blood by Automated countOrdered By: Marc Giron on 03-28-2023 Hematocrit (Bld) [Volume fraction] 36.2 % Normal 34.0-46.4 [facility] Comment on above: Performed By: #### C REAT, ESR, CRP, HEPATIC, CK, CBC, MISC LAB #### [address] #### ANTI-KU AB, MITOM2, CH50, PAT, RNA POLYMR, C3, C4 #### [facility] , Hemoglobin [Mass/volume] in BloodOrdered By: Marc Giron on 03-28-2023 Hemoglobin (Bld) [Mass/Vol] 12.2 g/dL Normal 11.8-15.4 [facility] Comment on above: Performed By: #### C REAT, ESR, CRP, HEPATIC, CK, CBC, MISC LAB #### [address] #### ANTI-KU AB, MITOM2, CH50, PAT, RNA POLYMR, C3, C4 #### [facility] , Leukocytes [#/volume] correc antoine for nucleated erythrocytes in Blood by Automated counOrdered By: Marc Giron on 03-28-2023 WBC corrected for nucl RBC Auto (Bld) [#/Vol] 6.7 10*3/uL 3.8-11.6 [facility] Leukocytes [#/volume] in Blo od by Automated countOrdered By: Marc Giron on 03-28-2023 WBC (Bld) [#/Vol] 6.7 10*3/uL Normal 3.8-11.6 [facility] Comment on above: Performed By: #### C REAT, ESR, CRP, HEPATIC, CK, CBC, MISC LAB #### [facility] [address] #### ANTI-KU AB, MITOM2, CH50, PAT, RNA POLYMR, C3, C4 #### [facility] , Lymphocytes [#/volume] in Bl ood by Automated countOrdered By: Marc Giron on 03-28-2023 Lymphocytes (Bld) [#/Vol] 2.1 10*3/uL Normal 1.00-4.8 [facility] Comment on above: Performed By: #### C REAT, ESR, CRP, HEPATIC, CK, CBC, MISC LAB #### [address] #### ANTI-KU AB, MITOM2, CH50, PAT, RNA POLYMR, C3, C4 #### [facility] , Lymphocytes/100 leukocytes i n Blood by Automated countOrdered By: Marc Giron on 03-28-2023 Lymphocytes/100 WBC (Bld) 30.9 % Normal . [facility] Comment on above: Performed By: #### C REAT, ESR, CRP, HEPATIC, CK, CBC, MISC LAB #### [address] #### ANTI-KU AB, MITOM2, CH50, PAT, RNA POLYMR, C3, C4 #### [facility] , MCH [Entitic mass] by Automa antoine countOrdered By: Marc Giron on 03-28-2023 MCH (RBC) [Entitic mass] 36.4 pg High 24.7-34.3 [facility] Comment on above: Performed By: #### C REAT, ESR, CRP, HEPATIC, CK, CBC, MISC LAB #### [place] [address] [place] #### ANTI-KU AB, MITOM2, CH50, PAT, RNA POLYMR, C3, C4 #### [facility] , MCHC Auto (RBC) [Mass/Vol]Or dered By: Marc Giron on 03-28-2023 MCHC (RBC) [Mass/Vol] 33.7 g/dL 32.0-35.0 [facility] MCV [Entitic volume] by Auto mated countOrdered By: Marc Giron on 03-28-2023 MCV (RBC) [Entitic vol] 107.9 fL High 80-100 [facility] Comment on above: Performed By: #### C REAT, ESR, CRP, HEPATIC, CK, CBC, MISC LAB #### [place] [address] [place] #### ANTI-KU AB, MITOM2, CH50, PAT, RNA POLYMR, C3, C4 #### [facility] , Neutrophils [#/volume] in Bl ood by Automated countOrdered By: Marc Giron on 03-28-2023 Neutrophils (Bld) [#/Vol] 3.7 10*3/uL Normal 1.8-7.7 [facility] Comment on above: Performed By: #### C REAT, ESR, CRP, HEPATIC, CK, CBC, MISC LAB #### [place] [address] [place] #### ANTI-KU AB, MITOM2, CH50, PAT, RNA POLYMR, C3, C4 #### [facility] , No Panel InformationOrdered By: Marc Giron on 03-28-2023 Estimated GFR (CKD-EPI) > 60.0 mL/Min [facility] Creatinine Clearance (Chem 169.70 [facility] Nucleated erythrocytes [Pres ence] in Blood by Automated countOrdered By: Marc Giron on 03-28-2023 Nucleated RBC Auto Ql (Bld) 0.2 /100{WBC} 0-0.5 [facility] Platelet mean volume [Entiti c volume] in Blood by Automated countOrdered By: Marc Giron on 03-28-2023 Platelet mean volume (Bld) [Entitic vol] 7.2 fL Normal 6.3-10.7 [facility] Comment on above: Performed By: #### C REAT, ESR, CRP, HEPATIC, CK, CBC, MISC LAB #### [place] [address] [place] #### ANTI-KU AB, MITOM2, CH50, PAT, RNA POLYMR, C3, C4 #### [facility] , Platelets [#/volume] in Bloo d by Automated countOrdered By: Marc Giron on 03-28-2023 Platelets (Bld) [#/Vol] 273 10*3/uL Normal 150-450 [facility] Comment on above: Performed By: #### C REAT, ESR, CRP, HEPATIC, CK, CBC, MISC LAB #### [facility] [address] [place] [address] #### ANTI-KU AB, MITOM2, CH50, PAT, RNA POLYMR, C3, C4 #### [facility] , Potassium [Moles/volume] in Serum or PlasmaOrdered By: Marc Mack on 03-28-2023 Potassium [Moles/Vol] 4.1 mmol/L Normal 3.5-5.1 [facility] Comment on above: Performed By: #### C REAT, ESR, CRP, HEPATIC, CK, CBC, MISC LAB #### [address] #### ANTI-KU AB, MITOM2, CH50, PAT, RNA POLYMR, C3, C4 #### [facility] , Prealbumin [Mass/volume] in Serum or PlasmaOrdered By: Marc Giron on 03-28-2023 Prealbumin [Mass/Vol] 19.3 mg/dL Normal 17.0-34.0 [facility] Comment on above: Result Comment: PERF ORMED BY: [place] [address] PATHOLOGIST TROUBLE DISPATCHER RUIZ CLIFTON M.D. Performed By: #### C REAT, ESR, CRP, HEPATIC, CK, CBC, MISC LAB #### [place] [address] [place] #### ANTI-KU AB, MITOM2, CH50, PAT, RNA POLYMR, C3, C4 #### [facility] , Protein [Mass/volume] in Ser um or PlasmaOrdered By: Marc Mack on 03-28-2023 Protein [Mass/Vol] 6.4 g/dL Normal 6.4-8.9 [facility] Comment on above: Performed By: #### C REAT, ESR, CRP, HEPATIC, CK, CBC, MISC LAB #### [place] [address] [place] #### ANTI-KU AB, MITOM2, CH50, PAT, RNA POLYMR, C3, C4 #### [facility] , Serum globulin measurement b y calculation (mass/volume)Ordered By: Marc Giron on 03-28-2023 Globulin (S) [Mass/Vol] 3.1 g/dL Normal [facility] Comment on above: Performed By: #### C REAT, ESR, CRP, HEPATIC, CK, CBC, MISC LAB #### [place] [address] [place] #### ANTI-KU AB, MITOM2, CH50, PAT, RNA POLYMR, C3, C4 #### [facility] , Serum or plasma albumin/glob ulin mass ratioOrdered By: Marc Giron on 03-28-2023 Albumin/Globulin [Mass ratio] 1.1 {ratio} Normal [facility] Comment on above: Performed By: #### C REAT, ESR, CRP, HEPATIC, CK, CBC, MISC LAB #### [place] [address] [place] #### ANTI-KU AB, MITOM2, CH50, PAT, RNA POLYMR, C3, C4 #### [facility] , Serum or plasma anion gap de terminationOrdered By: Marc Giron on 03-28-2023 Anion gap [Moles/Vol] 11.6 mmol/L Normal 6.0-15.[address] [facility] Comment on above: Performed By: #### C REAT, ESR, CRP, HEPATIC, CK, CBC, MISC LAB #### [place] [address] [place] #### ANTI-KU AB, MITOM2, CH50, PAT, RNA POLYMR, C3, C4 #### [facility] , Sodium [Moles/volume] in Ser um or PlasmaOrdered By: Marc Giron on 03-28-2023 Sodium [Moles/Vol] 137 mmol/L Normal 136-145 [facility] Comment on above: Performed By: #### C REAT, ESR, CRP, HEPATIC, CK, CBC, MISC LAB #### [facility] [address] [place] [address] [place] #### ANTI-KU AB, MITOM2, CH50, PAT, RNA POLYMR, C3, C4 #### [facility] , Urea nitrogen [Mass/volume] in Serum or PlasmaOrdered By: Marc Giron on 03-28-2023 Urea nitrogen [Mass/Vol] 7 mg/dL Normal 7-25 [facility] Comment on above: Performed By: #### C REAT, ESR, CRP, HEPATIC, CK, CBC, MISC LAB #### [place] [address] [place] #### ANTI-KU AB, MITOM2, CH50, PAT, RNA POLYMR, C3, C4 #### [facility] , Alanine aminotransferase [En zymatic activity/volume] in Serum or PlasmaOrdered By: Brianne Floresr on 03-24-2023 ALT [Catalytic activity/Vol] 23 U/L Normal 7-52 [facility] Comment on above: Performed By: #### C REAT, ESR, CRP, HEPATIC, CK, CBC, MISC LAB #### [place] [address] [place] #### ANTI-KU AB, MITOM2, CH50, PAT, RNA POLYMR, C3, C4 #### [facility] , Albumin [Mass/volume] in Ser um or Plasma by Bromocresol green (BCG) dye binding methoOrdered By: Brianne Floresr on 03-24-2023 Albumin BCG dye [Mass/Vol] 3.1 g/dL 3.5-5.7 [facility] Alkaline phosphatase [Enzyma tic activity/volume] in Serum or PlasmaOrdered By: Obsharondah Daromar on 03-24-2023 ALP [Catalytic activity/Vol] 112 U/L High 34-104 [facility] Comment on above: Performed By: #### C REAT, ESR, CRP, HEPATIC, CK, CBC, MISC LAB #### [facility] [address] [place] [address] #### ANTI-KU AB, MITOM2, CH50, PAT, RNA POLYMR, C3, C4 #### [facility] , Aspartate aminotransferase [ Enzymatic activity/volume] in Serum or PlasmaOrdered By: Obaydah Daromar on 03-24-2023 AST [Catalytic activity/Vol] 48 U/L High 13-39 [facility] Comment on above: Performed By: #### C REAT, ESR, CRP, HEPATIC, CK, CBC, MISC LAB #### [place] [address] [place] #### ANTI-KU AB, MITOM2, CH50, PAT, RNA POLYMR, C3, C4 #### [facility] , Bilirubin.total [Mass/volume ] in Serum or PlasmaOrdered By: Obsharondagautam Rickomar on 03-24-2023 Bilirubin [Mass/Vol] 0.5 mg/dL Normal 0.3-1.0 [facility] Comment on above: Performed By: #### C REAT, ESR, CRP, HEPATIC, CK, CBC, MISC LAB #### [place] [address] [place] #### ANTI-KU AB, MITOM2, CH50, PAT, RNA POLYMR, C3, C4 #### [facility] , Calcium [Mass/volume] in Ser um or PlasmaOrdered By: Obsharondah Daromar on 03-24-2023 Calcium [Mass/Vol] 9.0 mg/dL Normal 8.6-10.3 [facility] Comment on above: Performed By: #### C REAT, ESR, CRP, HEPATIC, CK, CBC, MISC LAB #### [facility] [address] [place] [address] [place] #### ANTI-KU AB, MITOM2, CH50, PAT, RNA POLYMR, C3, C4 #### [facility] , Carbon dioxide, total [Moles /volume] in Serum or PlasmaOrdered By: Marysoldagautam Cabreraomar on 03-24-2023 CO2 [Moles/Vol] 30.8 mmol/L Normal 21.0-31.0 [facility] Comment on above: Performed By: #### C REAT, ESR, CRP, HEPATIC, CK, CBC, MISC LAB #### [place] [address] [place] #### ANTI-KU AB, MITOM2, CH50, PAT, RNA POLYMR, C3, C4 #### [facility] , Chloride [Moles/volume] in S caitlyn or PlasmaOrdered By: Brianne Cabreraomar on 03-24-2023 Chloride [Moles/Vol] 102 mmol/L Normal 98-107 [facility] Comment on above: Performed By: #### C REAT, ESR, CRP, HEPATIC, CK, CBC, MISC LAB #### [address] #### ANTI-KU AB, MITOM2, CH50, PAT, RNA POLYMR, C3, C4 #### [facility] , Comprehensive Metabolic Pane antione 03-24-2023 Albumin [Mass/Vol] 3.1 g/dL Low 3.5-5.7 [facility] Comment on above: Performed By: #### C REAT, ESR, CRP, HEPATIC, CK, CBC, MISC LAB #### [place] [address] [place] #### ANTI-KU AB, MITOM2, CH50, PAT, RNA POLYMR, C3, C4 #### [facility] , Creatinine Clr Calc Pharmacy 155.26 Normal [facility] Comment on above: Performed By: #### C REAT, ESR, CRP, HEPATIC, CK, CBC, MISC LAB #### [facility] [address] [place] [address] [place] #### ANTI-KU AB, MITOM2, CH50, PAT, RNA POLYMR, C3, C4 #### [facility] , GFR/1.73 sq M.predicted MDRD (S/P/Bld) [Vol rate/Area] mL/min/{1.73_m2} Normal [facility] Comment on above: Performed By: #### C REAT, ESR, CRP, HEPATIC, CK, CBC, MISC LAB #### [place] [address] [place] #### ANTI-KU AB, MITOM2, CH50, PAT, RNA POLYMR, C3, C4 #### [facility] , Creatinine [Mass/volume] in Serum or PlasmaOrdered By: Brianne Umanzor on 03-24-2023 Creatinine [Mass/Vol] 0.47 mg/dL Low 0.60-1.20 [facility] Comment on above: Performed By: #### C REAT, ESR, CRP, HEPATIC, CK, CBC, MISC LAB #### [place] [address] [place] #### ANTI-KU AB, MITOM2, CH50, PAT, RNA POLYMR, C3, C4 #### [facility] , Glucose [Mass/volume] in Ser um or PlasmaOrdered By: Brianne Umanzor on 03-24-2023 Glucose [Mass/Vol] 88 mg/dL Normal 70-100 [facility] Comment on above: ADA recommended refe rence rangeRandom Glucose Reference Range is dependent on time and content of last meal. Glucose of more than 200 mg/dL in a nonstressed, ambulatory subject supports the diagnosis of Diabetes Mellitus. Result Comment: [place] om Glucose Reference Range is dependent on time and content of last meal. Glucose of more than 200 mg/dL in a nonstressed, ambulatory subject supports the diagnosis of Diabetes Mellitus. ADA recommended reference range Performed By: #### C REAT, ESR, CRP, HEPATIC, CK, CBC, MISC LAB #### [facility] [address] [place] [address] [place] #### ANTI-KU AB, MITOM2, CH50, PAT, RNA POLYMR, C3, C4 #### [facility] , Magnesium [Mass/volume] in S caitlyn or PlasmaOrdered By: Obsharondagautam Cabreraomar on 03-24-2023 Magnesium [Mass/Vol] 1.9 mg/dL Normal 1.9-2.7 [facility] Comment on above: Result Comment: PERF ORMED BY: [place] [address] PATHOLOGIST TROUBLE DISPATCHER RUIZ CLIFTON M.D. Performed By: #### C REAT, ESR, CRP, HEPATIC, CK, CBC, MISC LAB #### [facility] [address] [place] [address] [place] #### ANTI-KU AB, MITOM2, CH50, PAT, RNA POLYMR, C3, C4 #### [facility] , No Panel InformationOrdered By: Obluis Cabreraomar on 03-24-2023 Estimated GFR (CKD-EPI) > 60.0 mL/Min [facility] Creatinine Clearance (Chem 155.26 [facility] Potassium [Moles/volume] in Serum or PlasmaOrdered By: Obsharondagautam Cabreraomar on 03-24-2023 Potassium [Moles/Vol] 4.5 mmol/L Normal 3.5-5.1 [facility] Comment on above: Performed By: #### C REAT, ESR, CRP, HEPATIC, CK, CBC, MISC LAB #### [facility] [address] [place] [address] [place] #### ANTI-KU AB, MITOM2, CH50, PAT, RNA POLYMR, C3, C4 #### [facility] , Protein [Mass/volume] in Ser um or PlasmaOrdered By: Obsharondah Daromar on 03-24-2023 Protein [Mass/Vol] 6.2 g/dL Low 6.4-8.9 [facility] Comment on above: Performed By: #### C REAT, ESR, CRP, HEPATIC, CK, CBC, MISC LAB #### [address] #### ANTI-KU AB, MITOM2, CH50, PAT, RNA POLYMR, C3, C4 #### [facility] , Serum globulin measurement b y calculation (mass/volume)Ordered By: Obaydah Daromar on 03-24-2023 Globulin (S) [Mass/Vol] 3.1 g/dL Normal [facility] Comment on above: Performed By: #### C REAT, ESR, CRP, HEPATIC, CK, CBC, MISC LAB #### [address] #### ANTI-KU AB, MITOM2, CH50, PAT, RNA POLYMR, C3, C4 #### [facility] , Serum or plasma albumin/glob ulin mass ratioOrdered By: Obaydah Daromar on 03-24-2023 Albumin/Globulin [Mass ratio] 1.0 {ratio} Normal [facility] Comment on above: Performed By: #### C REAT, ESR, CRP, HEPATIC, CK, CBC, MISC LAB #### [address] #### ANTI-KU AB, MITOM2, CH50, PAT, RNA POLYMR, C3, C4 #### [facility] , Serum or plasma anion gap de terminationOrdered By: Obaydah Daromar on 03-24-2023 Anion gap [Moles/Vol] 9.7 mmol/L Normal 6.0-15.0 [facility] Comment on above: Performed By: #### C REAT, ESR, CRP, HEPATIC, CK, CBC, MISC LAB #### [place] [address] [place] #### ANTI-KU AB, MITOM2, CH50, PAT, RNA POLYMR, C3, C4 #### [facility] , Sodium [Moles/volume] in Ser um or PlasmaOrdered By: Obsharondah Daromar on 03-24-2023 Sodium [Moles/Vol] 138 mmol/L Normal 136-145 [facility] Comment on above: Performed By: #### C REAT, ESR, CRP, HEPATIC, CK, CBC, MISC LAB #### [place] [address] [place] #### ANTI-KU AB, MITOM2, CH50, PAT, RNA POLYMR, C3, C4 #### [facility] , Urea nitrogen [Mass/volume] in Serum or PlasmaOrdered By: Obsharondah Daromar on 03-24-2023 Urea nitrogen [Mass/Vol] 6 mg/dL Low 7-25 [facility] Comment on above: Performed By: #### C REAT, ESR, CRP, HEPATIC, CK, CBC, MISC LAB #### [place] [address] [place] #### ANTI-KU AB, MITOM2, CH50, PAT, RNA POLYMR, C3, C4 #### [facility] , Comprehensive Metabolic Pane antione 03-23-2023 Albumin [Mass/Vol] 2.8 g/dL Low 3.5-5.7 [facility] Comment on above: Performed By: #### C REAT, ESR, CRP, HEPATIC, CK, CBC, MISC LAB #### [place] [address] [place] #### ANTI-KU AB, MITOM2, CH50, PAT, RNA POLYMR, C3, C4 #### [facility] , Albumin/Globulin [Mass ratio] 1.0 {ratio} Normal [facility] Comment on above: Performed By: #### C REAT, ESR, CRP, HEPATIC, CK, CBC, MISC LAB #### [place] [address] [place] #### ANTI-KU AB, MITOM2, CH50, PAT, RNA POLYMR, C3, C4 #### [facility] , ALP [Catalytic activity/Vol] 101 U/L Normal 34-104 [facility] Comment on above: Performed By: #### C REAT, ESR, CRP, HEPATIC, CK, CBC, MISC LAB #### [address] #### ANTI-KU AB, MITOM2, CH50, PAT, RNA POLYMR, C3, C4 #### [facility] , ALT [Catalytic activity/Vol] 26 U/L Normal 7-52 [facility] Comment on above: Performed By: #### C REAT, ESR, CRP, HEPATIC, CK, CBC, MISC LAB #### [address] #### ANTI-KU AB, MITOM2, CH50, PAT, RNA POLYMR, C3, C4 #### [facility] , Anion gap [Moles/Vol] 8.8 mmol/L Normal 6.0-15.0 [facility] Comment on above: Performed By: #### C REAT, ESR, CRP, HEPATIC, CK, CBC, MISC LAB #### [place] [address] [place] #### ANTI-KU AB, MITOM2, CH50, PAT, RNA POLYMR, C3, C4 #### [facility] , AST [Catalytic activity/Vol] 54 U/L High 13-39 [facility] Comment on above: Performed By: #### C REAT, ESR, CRP, HEPATIC, CK, CBC, MISC LAB #### [place] [address] [place] #### ANTI-KU AB, MITOM2, CH50, PAT, RNA POLYMR, C3, C4 #### [facility] , Bilirubin [Mass/Vol] 0.7 mg/dL Normal 0.3-1.0 [facility] Comment on above: Performed By: #### C REAT, ESR, CRP, HEPATIC, CK, CBC, MISC LAB #### [address] #### ANTI-KU AB, MITOM2, CH50, PAT, RNA POLYMR, C3, C4 #### [facility] , Calcium [Mass/Vol] 8.3 mg/dL Low 8.6-10.3 [facility] Comment on above: Performed By: #### C REAT, ESR, CRP, HEPATIC, CK, CBC, MISC LAB #### [address] #### ANTI-KU AB, MITOM2, CH50, PAT, RNA POLYMR, C3, C4 #### [facility] , Chloride [Moles/Vol] 106 mmol/L Normal 98-107 [facility] Comment on above: Performed By: #### C REAT, ESR, CRP, HEPATIC, CK, CBC, MISC LAB #### [address] #### ANTI-KU AB, MITOM2, CH50, PAT, RNA POLYMR, C3, C4 #### [facility] , CO2 [Moles/Vol] 26.8 mmol/L Normal 21.0-31.0 [facility] Comment on above: Performed By: #### C REAT, ESR, CRP, HEPATIC, CK, CBC, MISC LAB #### [place] [address] [place] #### ANTI-KU AB, MITOM2, CH50, PAT, RNA POLYMR, C3, C4 #### [facility] , Creatinine [Mass/Vol] 0.39 mg/dL Low 0.60-1.20 [facility] Comment on above: Performed By: #### C REAT, ESR, CRP, HEPATIC, CK, CBC, MISC LAB #### [place] [address] [place] #### ANTI-KU AB, MITOM2, CH50, PAT, RNA POLYMR, C3, C4 #### [facility] , Creatinine Clr Calc Pharmacy 187.11 Normal [facility] Comment on above: Result Comment: PERF ORMED BY: [place] [address] PATHOLOGIST TROUBLE DISPATCHER RUIZ CLIFTON M.D. Performed By: #### C REAT, ESR, CRP, HEPATIC, CK, CBC, MISC LAB #### [place] [address] [place] #### ANTI-KU AB, MITOM2, CH50, PAT, RNA POLYMR, C3, C4 #### [facility] , GFR/1.73 sq M.predicted MDRD (S/P/Bld) [Vol rate/Area] mL/min/{1.73_m2} Normal [facility] Comment on above: Performed By: #### C REAT, ESR, CRP, HEPATIC, CK, CBC, MISC LAB #### [place] [address] [place] #### ANTI-KU AB, MITOM2, CH50, PTA, RNA POLYMR, C3, C4 #### [facility] , Globulin (S) [Mass/Vol] 2.7 g/dL Normal [facility] Comment on above: Performed By: #### C REAT, ESR, CRP, HEPATIC, CK, CBC, MISC LAB #### [place] [address] [place] #### ANTI-KU AB, MITOM2, CH50, PAT, RNA POLYMR, C3, C4 #### [facility] , Glucose [Mass/Vol] 84 mg/dL Normal 70-100 [facility] Comment on above: Result Comment: [place] Glucose Reference Range is dependent on time and content of last meal. Glucose of more than 200 mg/dL in a nonstressed, ambulatory subject supports the diagnosis of Diabetes Mellitus. ADA recommended reference range Performed By: #### C REAT, ESR, CRP, HEPATIC, CK, CBC, MISC LAB #### [address] [address] [place] #### ANTI-KU AB, MITOM2, CH50, PAT, RNA POLYMR, C3, C4 #### [facility] , Potassium [Moles/Vol] 4.6 mmol/L Normal 3.5-5.1 [facility] Comment on above: Performed By: #### C REAT, ESR, CRP, HEPATIC, CK, CBC, MISC LAB #### [address] #### ANTI-KU AB, MITOM2, CH50, PAT, RNA POLYMR, C3, C4 #### [facility] , Protein [Mass/Vol] 5.5 g/dL Low 6.4-8.9 [facility] Comment on above: Performed By: #### C REAT, ESR, CRP, HEPATIC, CK, CBC, MISC LAB #### [address] #### ANTI-KU AB, MITOM2, CH50, PAT, RNA POLYMR, C3, C4 #### [facility] , Sodium [Moles/Vol] 137 mmol/L Normal 136-145 [facility] Comment on above: Performed By: #### C REAT, ESR, CRP, HEPATIC, CK, CBC, MISC LAB #### [address] #### ANTI-KU AB, MITOM2, CH50, PAT, RNA POLYMR, C3, C4 #### [facility] , Urea nitrogen [Mass/Vol] 4 mg/dL Low 7-25 [facility] Comment on above: Performed By: #### C REAT, ESR, CRP, HEPATIC, CK, CBC, MISC LAB #### [place] [address] [place] #### ANTI-KU AB, MITOM2, CH50, PAT, RNA POLYMR, C3, C4 #### [facility] , Erythrocyte distribution wid th [Ratio] by Automated countOrdered By: Brianne Floresr on 03-23-2023 Erythrocyte distribution width (RBC) [Ratio] 14.6 % Normal 11.9-15.3 [facility] Comment on above: Performed By: #### C REAT, ESR, CRP, HEPATIC, CK, CBC, MISC LAB #### [address] #### ANTI-KU AB, MITOM2, CH50, PAT, RNA POLYMR, C3, C4 #### [facility] , Erythrocytes [#/volume] in B lood by Automated countOrdered By: Marysoldagautam Cabreraomar on 03-23-2023 RBC (Bld) [#/Vol] 2.96 10*6/uL Low 3.60-5.00 [facility] Comment on above: Performed By: #### C REAT, ESR, CRP, HEPATIC, CK, CBC, MISC LAB #### [address] #### ANTI-KU AB, MITOM2, CH50, PAT, RNA POLYMR, C3, C4 #### [facility] , Hematocrit [Volume Fraction] of Blood by Automated countOrdered By: Marysoldagautam Cabreraomar on 03-23-2023 Hematocrit (Bld) [Volume fraction] 31.7 % Low 34.0-46.4 [facility] Comment on above: Performed By: #### C REAT, ESR, CRP, HEPATIC, CK, CBC, MISC LAB #### [place] [address] [place] #### ANTI-KU AB, MITOM2, CH50, PAT, RNA POLYMR, C3, C4 #### [facility] , Hemoglobin [Mass/volume] in BloodOrdered By: Obsharondah Rickomar on 03-23-2023 Hemoglobin (Bld) [Mass/Vol] 10.9 g/dL Low 11.8-15.4 [facility] Comment on above: Performed By: #### C REAT, ESR, CRP, HEPATIC, CK, CBC, MISC LAB #### [facility] [address] [place] [address] [place] #### ANTI-KU AB, MITOM2, CH50, PAT, RNA POLYMR, C3, C4 #### [facility] , Hemogram CBC Without Diffon 03-23-2023 Mean Corpuscular HGB Conc 34.5 g/dL Normal 32.0-35.0 [facility] Comment on above: Performed By: #### C REAT, ESR, CRP, HEPATIC, CK, CBC, [facility] #### [facility] [address] [place] [address] [place] #### ANTI-KU AB, MITOM2, CH50, PAT, RNA POLYMR, C3, C4 #### [facility] , WBC (Bld) [#/Vol] 6.3 10*3/uL Normal 3.8-11.6 [facility] Comment on above: Performed By: #### C REAT, ESR, CRP, HEPATIC, CK, CBC, [facility] #### [place] [address] [place] #### ANTI-KU AB, MITOM2, CH50, PAT, RNA POLYMR, C3, C4 #### [facility] , Leukocytes [#/volume] correc antoine for nucleated erythrocytes in Blood by Automated counOrdered By: Brianne Cabreraomar on 03-23-2023 WBC corrected for nucl RBC Auto (Bld) [#/Vol] 6.3 10*3/uL 3.8-11.6 [facility] MCH [Entitic mass] by Automa antoine countOrdered By: Obsharondagautam Daromar on 03-23-2023 MCH (RBC) [Entitic mass] 37.0 pg High 24.7-34.3 [facility] Comment on above: Performed By: #### C REAT, ESR, CRP, HEPATIC, CK, CBC, [facility] #### [place] [address] [place] #### ANTI-KU AB, MITOM2, CH50, PAT, RNA POLYMR, C3, C4 #### [facility] , MCHC Auto (RBC) [Mass/Vol]Or dered By: Obaydah Rickomar on 03-23-2023 MCHC (RBC) [Mass/Vol] 34.5 g/dL 32.0-35.0 [facility] MCV [Entitic volume] by Auto mated countOrdered By: Marysoldagautam Cabreraomar on 03-23-2023 MCV (RBC) [Entitic vol] 107.1 fL High 80-100 [facility] Comment on above: Performed By: #### C REAT, ESR, CRP, HEPATIC, CK, CBC, MISC LAB #### [facility] [address] [place] [address] #### ANTI-KU AB, MITOM2, CH50, PAT, RNA POLYMR, C3, C4 #### [facility] , Platelet mean volume [Entiti c volume] in Blood by Automated countOrdered By: Brianne Cabreraomar on 03-23-2023 Platelet mean volume (Bld) [Entitic vol] 7.2 fL Normal 6.3-10.7 [facility] Comment on above: Result Comment: PERF ORMED BY: [place] [address] PATHOLOGIST TROUBLE DISPATCHER RUIZ CLIFTON M.D. Performed By: #### C REAT, ESR, CRP, HEPATIC, CK, CBC, MISC LAB #### [facility] [address] [place] [address] [place] #### ANTI-KU AB, MITOM2, CH50, PAT, RNA POLYMR, C3, C4 #### [facility] , Platelets [#/volume] in Bloo d by Automated countOrdered By: Obsharondagautam Cabreraomar on 03-23-2023 Platelets (Bld) [#/Vol] 237 10*3/uL Normal 150-450 [facility] Comment on above: Performed By: #### C REAT, ESR, CRP, HEPATIC, CK, CBC, MISC LAB #### [address] [place] [address] [facility] #### ANTI-KU AB, MITOM2, CH50, PAT, RNA POLYMR, C3, C4 #### [facility] , US abdomen limitedon 023 US abdomen limited [facility] [place] [address] [place], [place] [id number] Ultrasound Report Signed Patient: Rica Stout MR#: [id number] 39 : 1995 Acct:[id number] Age/Sex: 27 / F ADM Date: 03/22/23 Loc: Room: [address] [place] [address] Type: ADM IN Attending Dr: Brianne Umanzor [...] Lowell Blake M.D.03/23/2023 9:35 AM Dictation Location: [place] [address] Tech: Nia Hill Transcribed By: RAJESH 03/23/23 0935 Dictated By: Lowell Blake II, MD 03/23/2331 Signed By: 03/23/23 0935 Normal [facility] A1C with Estimated Average Richard vital 03-22-2023 Glucose [Mass/Vol] 94 mg/dL Normal [facility] Comment on above: Result Comment: PERF ORMED BY: [place] [address] PATHOLOGIST TROUBLE DISPATCHER RUIZ CLIFTON M.D. Performed By: #### C REAT, ESR, CRP, HEPATIC, CK, CBC, MISC LAB #### [place] [address] [place] #### ANTI-KU AB, MITOM2, CH50, PAT, RNA POLYMR, C3, C4 #### [facility] , PAT with Reflexon 03-22-2023 PAT with Reflex Negative Normal Negative [facility] Comment on above: Result Comment: Perf ormed at: - [facility] [address] [id number] Iv[place] Carver: Breezy Jones PhD, Phone: [phone] Performed By: #### C REAT, ESR, CRP, HEPATIC, CK, CBC, MISC LAB #### [place] [address] [place] #### ANTI-KU AB, MITOM2, CH50, PAT, RNA POLYMR, C3, C4 #### [facility] , Aerobic cultureOrdered By: Olivia Peterson on 03-22-2023 Bacteria identified Aer cx Nom (Unsp spec) No Growth 2 Days [facility] Albumin [Mass/volume] in Ser um or PlasmaOrdered By: Chele Gamino on 03-22-2023 Albumin [Mass/Vol] 3.1 g/dL Normal 2.9-4.4 [facility] Comment on above: Performed By: #### C REAT, ESR, CRP, HEPATIC, CK, CBC, MISC LAB #### [place] [address] [place] #### ANTI-KU AB, MITOM2, CH50, PAT, RNA POLYMR, C3, C4 #### [facility] , Alpha tocopherol [Mass/volum e] in Serum or PlasmaOrdered By: Chele Gamino on 03-22-2023 Alpha tocopherol [Mass/Vol] 10.9 mg/L 5.9-19.4 [facility] Comment on above: This test was develo ped and its performance characteristicsdetermined by [facility]. It has not been cleared orapproved by the Food and Drug Administration. Ammonia [Moles/volume] in Pl asmaOrdered By: Chele Gamino on 03-22-2023 Ammonia (P) [Moles/Vol] 57 umol/L High 11-35 [facility] Comment on above: Result Comment: PERF ORMED BY: [place] [address] PATHOLOGIST TROUBLE DISPATCHER RUIZ CLIFTON M.D. Performed By: #### C REAT, ESR, CRP, HEPATIC, CK, CBC, MISC LAB #### [facility] [address] [place] [address] [place] #### ANTI-KU AB, MITOM2, CH50, PAT, RNA POLYMR, C3, C4 #### [facility] , Amphetamine Screen Ql (U)Ord ered By: Chele Gamino on 03-22-2023 Amphetamines Ql (U) Negative Negative [facility] Anaerobic cultureOrdered By: Bernard Peterson on 03-22-2023 Bacteria identified Anaer cx Nom (Unsp spec) No Anaerobes Isolated 3 Days [facility] Bacterial blood cultureOrder ed By: Bernard Peterson on 03-22-2023 Bacteria identified Cx Nom (Bld) NO GROWTH 5 DAYS [facility] Barbiturates [Presence] in U rine by Screen methodOrdered By: Chele Gamino on 03-22-2023 Barbiturates Screen Ql (U) Negative Negative [facility] Basic Metabolic Panelon Anion gap [Moles/Vol] 13.0 mmol/L Normal 6.0-15.0 [facility] Comment on above: Performed By: #### C REAT, ESR, CRP, HEPATIC, CK, CBC, MISC LAB #### [address] #### ANTI-KU AB, MITOM2, CH50, PAT, RNA POLYMR, C3, C4 #### [facility] , Calcium [Mass/Vol] 7.3 mg/dL Low 8.6-10.3 [facility] Comment on above: Performed By: #### C REAT, ESR, CRP, HEPATIC, CK, CBC, MISC LAB #### [address] #### ANTI-KU AB, MITOM2, CH50, PAT, RNA POLYMR, C3, C4 #### [facility] , Chloride [Moles/Vol] 112 mmol/L High 98-107 [facility] Comment on above: Performed By: #### C REAT, ESR, CRP, HEPATIC, CK, CBC, MISC LAB #### [address] #### ANTI-KU AB, MITOM2, CH50, PAT, RNA POLYMR, C3, C4 #### [facility] , CO2 [Moles/Vol] 18.9 mmol/L Low 21.0-31.0 [facility] Comment on above: Performed By: #### C REAT, ESR, CRP, HEPATIC, CK, CBC, MISC LAB #### [place] [address] [place] #### ANTI-KU AB, MITOM2, CH50, PAT, RNA POLYMR, C3, C4 #### [facility] , Creatinine [Mass/Vol] 0.42 mg/dL Low 0.60-1.20 [facility] Comment on above: Performed By: #### C REAT, ESR, CRP, HEPATIC, CK, CBC, MISC LAB #### [place] [address] [place] #### ANTI-KU AB, MITOM2, CH50, PAT, RNA POLYMR, C3, C4 #### [facility] , Creatinine Clr Calc Pharmacy 173.74 Normal [facility] Comment on above: Performed By: #### C REAT, ESR, CRP, HEPATIC, CK, CBC, MISC LAB #### [place] [address] [place] #### ANTI-KU AB, MITOM2, CH50, PAT, RNA POLYMR, C3, C4 #### [facility] , GFR/1.73 sq M.predicted MDRD (S/P/Bld) [Vol rate/Area] mL/min/{1.73_m2} Normal [facility] Comment on above: Performed By: #### C REAT, ESR, CRP, HEPATIC, CK, CBC, MISC LAB #### [address] #### ANTI-KU AB, MITOM2, CH50, PAT, RNA POLYMR, C3, C4 #### [facility] , Glucose [Mass/Vol] 101 mg/dL High 70-100 [facility] Comment on above: Result Comment: [facility] Glucose Reference Range is dependent on time and content of last meal. Glucose of more than 200 mg/dL in a nonstressed, ambulatory subject supports the diagnosis of Diabetes Mellitus. ADA recommended reference range Performed By: #### C REAT, ESR, CRP, HEPATIC, CK, CBC, MISC LAB #### [place] [address] [place] #### ANTI-KU AB, MITOM2, CH50, PAT, RNA POLYMR, C3, C4 #### [facility] , Potassium [Moles/Vol] 3.9 mmol/L Normal 3.5-5.1 [facility] Comment on above: Performed By: #### C REAT, ESR, CRP, HEPATIC, CK, CBC, MISC LAB #### [place] [address] [place] #### ANTI-KU AB, MITOM2, CH50, PAT, RNA POLYMR, C3, C4 #### [facility] , Sodium [Moles/Vol] 140 mmol/L Normal 136-145 [facility] Comment on above: Performed By: #### C REAT, ESR, CRP, HEPATIC, CK, CBC, MISC LAB #### [address] #### ANTI-KU AB, MITOM2, CH50, PAT, RNA POLYMR, C3, C4 #### [facility] , Urea nitrogen [Mass/Vol] 3 mg/dL Low 7-25 [facility] Comment on above: Performed By: #### C REAT, ESR, CRP, HEPATIC, CK, CBC, MISC LAB #### [facility] [address] [place] [address] [place] #### ANTI-KU AB, MITOM2, CH50, PAT, RNA POLYMR, C3, C4 #### [facility] , Benzodiazepines Screen Ql (U )Ordered By: Chele Gamino on 03-22-2023 Benzodiazepines Ql (U) Negative Negative [facility] Benzoylecgonine [Presence] i n Urine by Screen methodOrdered By: Chele Gamino on 03-22-2023 Benzoylecgonine Screen Ql (U) Negative Negative [facility] Bilirubin.direct [Mass/volum e] in Serum or PlasmaOrdered By: Yoana Rico on 03-22-2023 Bilirubin.direct [Mass/Vol] 0.10 mg/dL 0.03-0.18 [facility] CT head/brain wo conon 03-22 CT head/brain wo [facility] [place] [address] CT Scan Report Signed Patient: Rica Stout MR#: [id number] [birth year] : 1995 Acct:[id number] Age/Sex: 27 / F ADM Date: 03/22/23 Loc: 4 Room: [id number] Type: ADM IN Attending Dr: Parveen Keller [...] Dave Clark M.D.03/22/2023 8:08 AM Dictation Location: [place] [address] Transcribed By: [facility] 03/22/[address]807 Dictated By: Dave Clark DO 03/22/23807 Signed By: 03/22/23807 Normal [facility] Cannabinoids [Presence] in U rine by Screen methodOrdered By: Chele Gamino on 03-22-2023 Cannabinoids Screen Ql (U) Negative Negative [facility] Comment on above: These are unconfirme d results and should not be used for legal purposes. Drug Cut-Off Concentration: AMPH 1000 ng/mL ALEXANDRO 200 ng/mL ATILIO 200 ng/mL COCM 300 ng/mL OP 300 ng/mL PCP 25 ng/mL THC 20 ng/mL Cryoglobulin with Quant Refl exon 03-22-2023 Cryoglobulin, Ql, Serum Normal None detected [facility] Comment on above: Result Comment: None Detected at 72 hours This test was developed and its performance characteristics determined by [employer]. It has not been cleared or approved by the Food and Drug Administration. Performed at: [address] [id number] Ivory Carver: Breezy Jones PhD, Phone: [phone] Performed By: #### C REAT, ESR, CRP, HEPATIC, CK, CBC, MISC LAB #### [place] [address] [place] #### ANTI-KU AB, MITOM2, CH50, PAT, RNA POLYMR, C3, C4 #### [facility] , Drug Screen,Urineon 03-22-20 23 Amphetamine Screen,Urine Negative Normal Negative [facility] Comment on above: Performed By: #### C REAT, ESR, CRP, HEPATIC, CK, CBC, MISC LAB #### [place] [address] [place] #### ANTI-KU AB, MITOM2, CH50, PAT, RNA POLYMR, C3, C4 #### [facility] , Barbiturate Screen,Urine Negative Normal Negative [facility] Comment on above: Performed By: #### C REAT, ESR, CRP, HEPATIC, CK, CBC, MISC LAB #### [place] [address] [place] #### ANTI-KU AB, MITOM2, CH50, PAT, RNA POLYMR, C3, C4 #### [facility] , Benzodiazepines Screen,Urine Negative Normal Negative [facility] Comment on above: Performed By: #### C REAT, ESR, CRP, HEPATIC, CK, CBC, MISC LAB #### [place] [address] [place] #### ANTI-KU AB, MITOM2, CH50, PAT, RNA POLYMR, C3, C4 #### [facility] , Cannabinoid Screen,Urine Negative Normal Negative [facility] Comment on above: Result Comment: Thes e are unconfirmed results and should not be used for legal purposes. Drug Cut-Off Concentration: AMPH 1000 ng/mL ALEXANDRO 200 ng/mL ATILIO 200 ng/mL COCM 300 ng/mL OP 300 ng/mL PCP 25 ng/mL THC 20 ng/mL PERFORMED BY: [place] [address] PATHOLOGIST TROUBLE DISPATCHER RUIZ CLIFTON M.D. Performed By: #### C REAT, ESR, CRP, HEPATIC, CK, CBC, MISC LAB #### [place] [address] [place] #### ANTI-KU AB, MITOM2, CH50, PAT, RNA POLYMR, C3, C4 #### [facility] , Cocaine Screen,Urine Negative Normal Negative [facility] Comment on above: Performed By: #### C REAT, ESR, CRP, HEPATIC, CK, CBC, MISC LAB #### [place] [address] [place] #### ANTI-KU AB, MITOM2, CH50, PAT, RNA POLYMR, C3, C4 #### [facility] , Opiate Screen,Urine Negative Normal Negative [facility] Comment on above: Performed By: #### C REAT, ESR, CRP, HEPATIC, CK, CBC, MISC LAB #### [place] [address] [place] #### ANTI-KU AB, MITOM2, CH50, PAT, RNA POLYMR, C3, C4 #### [facility] , Phencyclidine Screen,Urine Negative Normal Negative [facility] Comment on above: Performed By: #### C REAT, ESR, CRP, HEPATIC, CK, CBC, MISC LAB #### [place] [address] [place] #### ANTI-KU AB, MITOM2, CH50, PAT, RNA POLYMR, C3, C4 #### [facility] , Folate [Mass/volume] in Seru m or PlasmaOrdered By: Yoana Rico on 03-22-2023 Folate [Mass/Vol] 2.3 ng/mL >5.9 [facility] Comment on above: Folate reference ran ge: >5.9 ng/mlThe WHO technical consultation on folate and vitamin [id number] has determined that folate concentrations lessthan 4 ng/ml are considered deficient. Gamma-tocopherol measurement (mass/volume)Ordered By: Chele Gamino on 03-22-2023 Gamma tocopherol [Mass/Vol] 1.9 mg/L 0.7-4.9 [facility] Comment on above: This test was develo ped and its performance characteristicsdetermined by [facility]. It has not been cleared orapproved by the Food and Drug Administration.Reference intervals for alpha and gamma-tocopheroldetermined from National Health and Nutrition ExaminationSurvey, 6934-6007. Individuals with alpha-tocopherol levelsless than 5.0 mg/L are considered vitamin E deficient.Performed at: [address] [id number] Director: Lisa Ramos MD, Phone: [phone] Glucose mean value [Mass/vol ume] in Blood Estimated from glycated hemoglobinOrdered By: Chele Gamino on 03-22-2023 Average glucose Estimated from glycated hemoglobin (Bld) [Mass/Vol] 94 mg/dL [facility] Gram stain for investigation of transfusion reactionOrdered By: Bernard Peterson on 03-22-2023 Microscopic observation Gram stain Nom (Unsp spec) [facility] Hemoglobin A1c percentageOrd ered By: Chele Gamino on 03-22-2023 HbA1c (Bld) [Mass fraction] 4.9 % Normal 4.3-5.6 [facility] Comment on above: Increased risk for d iabetes: 5.7 - 6.4diabetes: >6.4glycemic control for adults with diabetes: <7.0 Result Comment: Incr eased risk for diabetes: 5.7 - 6.4 diabetes: >6.4 glycemic control for adults with diabetes: <7.0 Performed By: #### C REAT, ESR, CRP, HEPATIC, CK, CBC, MISC LAB #### [facility] [address] [place] [address] [place] #### ANTI-KU AB, MITOM2, CH50, PAT, RNA POLYMR, C3, C4 #### [facility] , Hep C Ab wRfx to Qnt PCRon 0 03-22-2023 Hepatitis C Virus Antibody Non-Reactive Normal Non Reactive [facility] Comment on above: Performed By: #### C REAT, ESR, CRP, HEPATIC, CK, CBC, MISC LAB #### [facility] [address] [place] [address] [place] #### ANTI-KU AB, MITOM2, CH50, PAT, RNA POLYMR, C3, C4 #### [facility] , Interpretation Hepatitis C Normal . [facility] Comment on above: Result Comment: Not infected with HCV unless early or acute infection is suspected (which may be delayed in an immunocompromised individual), or other evidence exists to indicate HCV infection. Performed at: [facility] [id number] Iv[place] Carver: Breezy Jones PhD, Phone: [phone] PERFORMED BY: [place] [address] PATHOLOGIST TROUBLE DISPATCHER RUIZ CLIFTON M.D. Performed By: #### C REAT, ESR, CRP, HEPATIC, CK, CBC, MISC LAB #### [address] #### ANTI-KU AB, MITOM2, CH50, PAT, RNA POLYMR, C3, C4 #### [facility] , Hepatic Panelon 03-22-2023 Albumin [Mass/Vol] 2.7 g/dL Low 3.5-5.7 [facility] Comment on above: Performed By: #### C REAT, ESR, CRP, HEPATIC, CK, CBC, MISC LAB #### [address] #### ANTI-KU AB, MITOM2, CH50, PAT, RNA POLYMR, C3, C4 #### [facility] , Albumin/Globulin [Mass ratio] 1.1 {ratio} Normal [facility] Comment on above: Performed By: #### C REAT, ESR, CRP, HEPATIC, CK, CBC, MISC LAB #### [place] [address] [place] #### ANTI-KU AB, MITOM2, CH50, PAT, RNA POLYMR, C3, C4 #### [facility] , ALP [Catalytic activity/Vol] 80 U/L Normal 34-104 [facility] Comment on above: Performed By: #### C REAT, ESR, CRP, HEPATIC, CK, CBC, MISC LAB #### [place] [address] [place] #### ANTI-KU AB, MITOM2, CH50, PAT, RNA POLYMR, C3, C4 #### [facility] , ALT [Catalytic activity/Vol] 26 U/L Normal 7-52 [facility] Comment on above: Performed By: #### C REAT, ESR, CRP, HEPATIC, CK, CBC, MISC LAB #### [address] #### ANTI-KU AB, MITOM2, CH50, PAT, RNA POLYMR, C3, C4 #### [facility] , AST [Catalytic activity/Vol] 57 U/L High 13-39 [facility] Comment on above: Performed By: #### C REAT, ESR, CRP, HEPATIC, CK, CBC, MISC LAB #### [place] [address] [place] #### ANTI-KU AB, MITOM2, CH50, PAT, RNA POLYMR, C3, C4 #### [facility] , Bilirubin [Mass/Vol] 0.3 mg/dL Normal 0.3-1.0 [facility] Comment on above: Performed By: #### C REAT, ESR, CRP, HEPATIC, CK, CBC, MISC LAB #### [place] [address] [place] #### ANTI-KU AB, MITOM2, CH50, PAT, RNA POLYMR, C3, C4 #### [facility] , Bilirubin,Indirect 0.2 mg/dL Normal [facility] Comment on above: Performed By: #### C REAT, ESR, CRP, HEPATIC, CK, CBC, MISC LAB #### [place] [address] [place] #### ANTI-KU AB, MITOM2, CH50, PAT, RNA POLYMR, C3, C4 #### [facility] , Bilirubin.indirect [Mass/Vol] 0.10 mg/dL Normal 0.03-0.18 [facility] Comment on above: Performed By: #### C REAT, ESR, CRP, HEPATIC, CK, CBC, MISC LAB #### [place] [address] [place] #### ANTI-KU AB, MITOM2, CH50, PAT, RNA POLYMR, C3, C4 #### [facility] , Globulin (S) [Mass/Vol] 2.5 g/dL Normal T [facility] Comment on above: Performed By: #### C REAT, ESR, CRP, HEPATIC, CK, CBC, MISC LAB #### [address] #### ANTI-KU AB, MITOM2, CH50, PAT, RNA POLYMR, C3, C4 #### [facility] , Protein [Mass/Vol] 5.2 g/dL Significant change down 6.4-8.9 [facility] Comment on above: Performed By: #### C REAT, ESR, CRP, HEPATIC, CK, CBC, MISC LAB #### [place] [address] [place] #### ANTI-KU AB, MITOM2, CH50, PAT, RNA POLYMR, C3, C4 #### [facility] , Hepatitis C virus IgG Ab [Pr esence] in Serum or Plasma by ImmunoassayOrdered By: Chele Gamino on 03-22-2023 HCV IgG IA Ql Non-Reactive Non Reactive [facility] IgA [Mass/volume] in Serum o r PlasmaOrdered By: Chele Gamino on 03-22-2023 IgA [Mass/Vol] 485 mg/dL 87-352 [facility] IgG [Mass/volume] in Serum o r PlasmaOrdered By: Chele Gamino on 03-22-2023 IgG [Mass/Vol] 1046 mg/dL [phone] [facility] IgM [Mass/volume] in Serum o r PlasmaOrdered By: Chele Gamino on 03-22-2023 IgM [Mass/Vol] 343 mg/dL [facility] Immunofixation,Serumon 03-22 Immunofixation, Serum Normal . [facility] Comment on above: Result Comment: No m onoclonality detected. Performed By: #### C REAT, ESR, CRP, HEPATIC, CK, CBC, MISC LAB #### [address] #### ANTI-KU AB, MITOM2, CH50, PAT, RNA POLYMR, C3, C4 #### [facility] , Immunoglobulin A, Serum 485 mg/dL High 87-352 [facility] Comment on above: Performed By: #### C REAT, ESR, CRP, HEPATIC, CK, CBC, MISC LAB #### [address] #### ANTI-KU AB, MITOM2, CH50, PAT, RNA POLYMR, C3, C4 #### [facility] , Immunoglobulin G 1046 mg/dL Normal 586-1602 [facility] Comment on above: Performed By: #### C REAT, ESR, CRP, HEPATIC, CK, CBC, MISC LAB #### [address] #### ANTI-KU AB, MITOM2, CH50, PAT, RNA POLYMR, C3, C4 #### [facility] , Immunoglobulin M, Serum 343 mg/dL High 26-217 [facility] Comment on above: Performed By: #### C REAT, ESR, CRP, HEPATIC, CK, CBC, MISC LAB #### [facility] [address] [place] [address] [place] #### ANTI-KU AB, MITOM2, CH50, PAT, RNA POLYMR, C3, C4 #### [facility] , Lactate [Moles/volume] in Se rum or PlasmaOrdered By: Brianne Umanzor on 03-22-2023 Lactate [Moles/Vol] 3.4 mmol/L 0.5-2.2 [facility] Comment on above: Critical Result : Ca lled to and read back by: KHUSHBU OLIVARES at: 03/22/2023 15:35:40 by:ACE Lactic Acidon 03-22-2023 Lactate [Moles/Vol] 4.4 mmol/L Off scale high 0.5-2.2 T [facility] Comment on above: Result Comment: Crit ical Result : Called to and read back by: GINNY YODER at: 03/22/2023 11:08:56 by:[id number] PERFORMED BY: [place] [address] PATHOLOGIST TROUBLE DISPATCHER RUIZ CLIFTON M.D. Performed By: #### C REAT, ESR, CRP, HEPATIC, CK, CBC, MISC LAB #### [facility] [address] [place] [address] #### ANTI-KU AB, MITOM2, CH50, PAT, RNA POLYMR, C3, C4 #### [facility] , Lactic Acid Reflexon 023 Lactic Acid Reflex 3.4 mmol/L Off scale high 0.5-2.2 [facility] Comment on above: Result Comment: Crit ical Result : Called to and read back by: KHUSHBU OLIVARES at: 03/22/2023 15:35:40 by:ACE PERFORMED BY: [place] [phone] PATHOLOGIST TROUBLE DISPATCHER RUIZ CLIFTON M.D. Performed By: #### L ACTIC RFX #### [facility] [address] [place] [address] Lactic Acid Reflex 3.9 mmol/L Off scale high 0.5-2.2 [facility] e [facility] Comment on above: Result Comment: Crit ical Result : Called to and read back by: ADIEL MARTÍNEZ at: 03/22/2023 02:09:36 by:[email or web address] PERFORMED BY: [place] [address] PATHOLOGIST TROUBLE DISPATCHER RUIZ CLIFTON M.D. Performed By: #### C REAT, ESR, CRP, HEPATIC, CK, CBC, MISC LAB #### [place] [address] [place] #### ANTI-KU AB, MITOM2, CH50, PAT, RNA POLYMR, C3, C4 #### [facility] , MR head/brain wo/w conon MR head/brain wo/w con [facility] [address] [place] [address] MRI Report Signed Patient: Rica Stout MR#: [id number] 39 : 1995 Acct:[id number] Age/Sex: 27 / F ADM Date: 03/22/23 Loc: 4 Room: [address] [place] [address] Type: ADM IN Attending Dr: Brianne Umanzor [...] Lowell Blake M.D.03/22/2023 3:05 PM Dictation Location: [place] [address] Transcribed By: [facility] 03/22/23 1505 Dictated By: Lowell Blake II, MD 03/22/23 1454 Signed By: 03/22/23 1505 Normal [facility] Magnesiumon 03-22-2023 Magnesium [Mass/Vol] 1.7 mg/dL Low 1.9-2.7 [facility] Comment on above: Result Comment: PERF ORMED BY: [place] [address] PATHOLOGIST TROUBLE DISPATCHER RUIZ CLIFTON M.D. Performed By: #### C REAT, ESR, CRP, HEPATIC, CK, CBC, MISC LAB #### [address] #### ANTI-KU AB, MITOM2, CH50, PAT, RNA POLYMR, C3, C4 #### [facility] , No Panel InformationOrdered By: Chele Gamino on 03-22-2023 Hepatitis C Interpretation See comment . [facility] Comment on above: Not infected with HC V unless early or acute infection issuspected (which may be delayed in an immunocompromisedindividual), or other evidence exists to indicate HCVinfection.Performed at: [facility] [id number] [place] [id number] Director: Breezy Jones PhD, Phone: [phone] Hepatitis C RNA Quantitative N/A [facility] Protein Electrophoresis M-Tomas Not observed g/dL Not Observed [facility] Protein Electrophoresis Note See comment . [facility] Comment on above: Protein electrophore sis scan will follow via computer,mail, or scoring machine operator delivery.Performed at: [facility] [address] [id number] Director: Breezy Jones PhD, Phone: [phone] Serum Immunofixation See comment . [facility] Comment on above: No monoclonality det ected. Opiates [Presence] in Urine by Screen methodOrdered By: Chele Gamino on 03-22-2023 Opiates Screen Ql (U) Negative Negative [facility] Phencyclidine Screen Ql (U)O rdered By: Chele Gamino on 03-22-2023 Phencyclidine Ql (U) Negative Negative [facility] Phosphate [Mass/volume] in S caitlyn or PlasmaOrdered By: Yoana Rico on 03-22-2023 Phosphate [Mass/Vol] 3.4 mg/dL Low 3.7-7.2 [facility] Comment on above: Performed By: #### C REAT, ESR, CRP, HEPATIC, CK, CBC, MISC LAB #### [place] [address] [place] #### ANTI-KU AB, MITOM2, CH50, PAT, RNA POLYMR, C3, C4 #### [facility] , Protein Electrophoresis, Ser umon 03-22-2023 Ndxys-6-Etactvqv 0.2 g/dL Normal 0.0-0.4 [facility] Comment on above: Performed By: #### C REAT, ESR, CRP, HEPATIC, CK, CBC, MISC LAB #### [place] [address] [place] #### ANTI-KU AB, MITOM2, CH50, APT, RNA POLYMR, C3, C4 #### [facility] , Yztzx-8-Tbbxxdzf 0.7 g/dL Normal 0.4-1.0 [facility] Comment on above: Performed By: #### C REAT, ESR, CRP, HEPATIC, CK, CBC, MISC LAB #### [facility] [address] [place] [address] [place] #### ANTI-KU AB, MITOM2, CH50, PAT, RNA POLYMR, C3, C4 #### [facility] , Beta Globulin 0.9 g/dL Normal 0.7-1.3 [facility] Comment on above: Performed By: #### C REAT, ESR, CRP, HEPATIC, CK, CBC, MISC LAB #### [place] [address] [place] #### ANTI-KU AB, MITOM2, CH50, PAT, RNA POLYMR, C3, C4 #### [facility] , Gamma Globulin 1.1 g/dL Normal 0.4-1.8 [facility] Comment on above: Performed By: #### C REAT, ESR, CRP, HEPATIC, CK, CBC, MISC LAB #### [place] [address] [place] #### ANTI-KU AB, MITOM2, CH50, PAT, RNA POLYMR, C3, C4 #### [facility] , M-Tomas Not Observed Normal Not Observed [facility] Comment on above: Performed By: #### C REAT, ESR, CRP, HEPATIC, CK, CBC, MISC LAB #### [address] #### ANTI-KU AB, MITOM2, CH50, PAT, RNA POLYMR, C3, C4 #### [facility] , SPE-Note Normal . [facility] Comment on above: Result Comment: Prot ein electrophoresis scan will follow via computer, mail, or scoring machine operator delivery. Performed at: [address] [id number] Iv[place] Carver: Breezy Jones PhD, Phone: [phone] PERFORMED BY: [place] [address] PATHOLOGIST TROUBLE DISPATCHER RUIZ CLIFTON M.D. Performed By: #### C REAT, ESR, CRP, HEPATIC, CK, CBC, MISC LAB #### [place] [address] [place] #### ANTI-KU AB, MITOM2, CH50, PAT, RNA POLYMR, C3, C4 #### [facility] , Protein [Mass/volume] in Ser um or PlasmaOrdered By: Chele Gamino on 03-22-2023 Protein [Mass/Vol] 5.9 g/dL Low 6.0-8.5 [facility] Comment on above: Performed By: #### C REAT, ESR, CRP, HEPATIC, CK, CBC, MISC LAB #### [facility] [address] [place] [address] [place] #### ANTI-KU AB, MITOM2, CH50, PAT, RNA POLYMR, C3, C4 #### [facility] , Serum cryoglobulin detection Ordered By: Chele Gamino on 03-22-2023 Cryoglobulin Ql (S) See comment None detected [facility] Comment on above: None Detected at 72 hoursThis test was developed and its performance characteristicsdetermined by [employer]. It has not been cleared orapproved by the Food and Drug Administration.Performed at: [facility] [place] [id number] Director: Breezy Jones PhD, Phone: [phone] Serum globulin measurement ( mass/volume)Ordered By: Chele Gamino on 03-22-2023 Globulin (S) [Mass/Vol] 2.8 g/dL Normal 2.2-3.9 [facility] Comment on above: Performed By: #### C REAT, ESR, CRP, HEPATIC, CK, CBC, MISC LAB #### [facility] [address] [place] [address] [place] #### ANTI-KU AB, MITOM2, CH50, PAT, RNA POLYMR, C3, C4 #### [facility] , Serum or plasma albumin/glob ulin mass ratioOrdered By: Chele Gamino on 03-22-2023 Albumin/Globulin [Mass ratio] 1.1 {ratio} Normal 0.7-1.7 [facility] Comment on above: Performed By: #### C REAT, ESR, CRP, HEPATIC, CK, CBC, MISC LAB #### [facility] [address] [place] [address] [place] #### ANTI-KU AB, MITOM2, CH50, PAT, RNA POLYMR, C3, C4 #### [facility] , Serum or plasma alpha 1 glob ulin measurement by electrophoresis (mass/volume)Ordered By: Chele Gamino on 03-22-2023 Alpha 1 globulin Elph [Mass/Vol] 0.2 g/dL 0.0-0.4 [facility] Serum or plasma alpha 2 glob ulin measurement by electrophoresis (mass/volume)Ordered By: Chele Gamino on 03-22-2023 Alpha 2 globulin Elph [Mass/Vol] 0.7 g/dL 0.4-1.0 [facility] Serum or plasma beta globuli n measurement by electrophoresis (mass/volume)Ordered By: Chele Gamino on 03-22-2023 Beta globulin Elph [Mass/Vol] 0.9 g/dL 0.7-1.3 [facility] Serum or plasma free cefurox audelia measurement (mass/volume)Ordered By: Chele Gamino on 03-22-2023 Cefuroxime free [Mass/Vol] Negative Negative [facility] Comment on above: Performed at: [address] [id number] Director: Breezy Jones PhD, Phone: [phone] Serum or plasma gamma globul in measurement by electrophoresis (mass/volume)Ordered By: Chele Gamino on 03-22-2023 Gamma globulin Elph [Mass/Vol] 1.1 g/dL 0.4-1.8 [facility] Serum or plasma non-glucuron idated bilirubin measurement (mass/volume)Ordered By: Yoana Rico on 03-22-2023 Bilirubin.indirect [Mass/Vol] 0.2 mg/dL [facility] Thyrotropin [Units/volume] i n Serum or PlasmaOrdered By: Chele Gamino on 03-22-2023 TSH Qn 2.53 m[IU]/L Normal 0.45-5.33 [facility] Comment on above: Result Comment: PERF ORMED BY: [place] [address] PATHOLOGIST TROUBLE DISPATCHER RUIZ CLIFTON M.D. Performed By: #### C REAT, ESR, CRP, HEPATIC, CK, CBC, MISC LAB #### [place] [address] [place] #### ANTI-KU AB, MITOM2, CH50, PAT, RNA POLYMR, C3, C4 #### [facility] , Vit. B12/Folate Profileon Folate 2.3 ng/mL Low >5.9 [facility] Comment on above: Result Comment: Astrid te reference range: >5.9 ng/ml The WHO technical consultation on folate and vitamin b12 deficiencies has determined that folate concentrations less than 4 ng/ml are considered deficient. PERFORMED BY: [place] [address] PATHOLOGIST TROUBLE DISPATCHER RUIZ CLIFTON M.D. Performed By: #### C REAT, ESR, CRP, HEPATIC, CK, CBC, MISC LAB #### [address] #### ANTI-KU AB, MITOM2, CH50, PAT, RNA POLYMR, C3, C4 #### [facility] , Vitamin B12 ser/plasOrdered By: Yoana Rico on 03-22-2023 Cobalamin (Vitamin B12) [Mass/Vol] 417 pg/mL Normal 180-914 [facility] Comment on above: Performed By: #### C REAT, ESR, CRP, HEPATIC, CK, CBC, MISC LAB #### [address] #### ANTI-KU AB, MITOM2, CH50, PAT, RNA POLYMR, C3, C4 #### [facility] , Vitamin E, Alpha Gamma Tocop on 03-22-2023 Vitamin E Alpha Tocopherol 10.9 mg/L Normal 5.9-19.4 [facility] Comment on above: Result Comment: This test was developed and its performance characteristics determined by [facility]. It has not been cleared or approved by the Food and Drug Administration. Performed By: #### C REAT, ESR, CRP, HEPATIC, CK, CBC, MISC LAB #### [place] [address] [place] #### ANTI-KU AB, MITOM2, CH50, PAT, RNA POLYMR, C3, C4 #### [facility] , Vitamin E GammaTocopherol 1.9 mg/L Normal 0.7-4.9 [facility] Comment on above: Result Comment: This test was developed and its performance characteristics determined by [facility]. It has not been cleared or approved by the Food and Drug Administration. Reference intervals for alpha and gamma-tocopherol determined from National Health and Nutrition Examination Survey, 7408-8447. Individuals with alpha-tocopherol levels less than 5.0 mg/L are considered vitamin E deficient. Performed at: [address] [id number] Iv[place] Carver: Lisa Ramos MD, Phone: [phone] Performed By: #### C REAT, ESR, CRP, HEPATIC, CK, CBC, MISC LAB #### [place] [address] [place] #### ANTI-KU AB, MITOM2, CH50, PAT, RNA POLYMR, C3, C4 #### [facility] , XR chest 1V portableon 03-22 XR chest 1V portable [facility] [address] [place] [address] XRay Report Signed Patient: Rica Stout MR#: [id number] 39 : 1995 Acct:[id number] Age/Sex: 27 / F ADM Date: 03/22/23 Loc: Room: 1I9810-5 Type: ADM IN Attending Dr: Parveen Keller [...] Dave Clark M.D.03/22/2023 8:07 AM Dictation Location: [place] [address] Transcribed By: [facility] 03/22/23806 Dictated By: Dave Clark DO 03/22/23806 Signed By: 03/22/23806 Francis [facility] XR pre/post mri xrayon 03-22 XR pre/post mri xray [facility] [address] [place] [address] MRI Report Signed Patient: Rica Stout MR#: [id number] 39 : 1995 Acct:[id number] Age/Sex: 27 / F ADM Date: 03/22/23 Loc: 4 Room: [address] [place] [address] Type: ADM IN Attending Dr: Brianne Umanzor MD Copies to: DO Brianne Stevenson MD Ordering Provider: Chele Gamino DO; Brianne Umanzor MD Date of Service: 03/22/23 MR/MR lumbar spine wo/w con: CIDP rule out ([id number]) XR/XR pre/post mri xray: . MR lumbar [...] Lowell Blake M.D.03/22/2023 3:10 PM Dictation Location: [place] [address] Transcribed By: RAJESH 03/22/23 1510 Dictated By: Lowell Blake II, MD 03/22/23 1505 Signed By: 03/22/23 1510 Normal [facility] Activated partial thrombopla stin time (aPTT) in platelet poor plasma by coagulation aOrdered By: Bernard Peterson on 03-21-2023 aPTT Coag (PPP) [Time] 30.4 s 25.1-36.[address] [facility] Aerobic Cultureon 03-21-2023 Aerobic Culture Comment Tube 2 No Growth 2 Days Comment Tube 2 No Anaerobes Isolated 3 Days Comment Tube 2 Gram Stain Result No Bacteria Seen No White Blood Cells Seen PERFORMED BY: [place] [address] PATHOLOGIST TROUBLE DISPATCHER RUIZ CLIFTON M.D. Normal [facility] Comment on above: Performed By: #### C REAT, ESR, CRP, HEPATIC, CK, CBC, MISC LAB #### [address] #### ANTI-KU AB, MITOM2, CH50, PAT, RNA POLYMR, C3, C4 #### [facility] , Aerobic cultureOrdered By: Olivia Peterson on 03-21-2023 Bacteria identified Aer cx Nom (Unsp spec) No Growth 2 Days [facility] Alanine aminotransferase [En zymatic activity/volume] in Serum or PlasmaOrdered By: Bernard Peterson on 03-21-2023 ALT [Catalytic activity/Vol] 37 U/L Normal 7-52 [facility] Comment on above: Performed By: #### C REAT, ESR, CRP, HEPATIC, CK, CBC, MISC LAB #### [facility] [address] [place] [address] [place] #### ANTI-KU AB, MITOM2, CH50, PAT, RNA POLYMR, C3, C4 #### [facility] , Albumin [Mass/volume] in Ser um or Plasma by Bromocresol green (BCG) dye binding methoOrdered By: Bernard Peterson on 03-21-2023 Albumin BCG dye [Mass/Vol] 3.5 g/dL 3.5-5.7 [facility] Alkaline phosphatase [Enzyma tic activity/volume] in Serum or PlasmaOrdered By: Bernard Peterson on 03-21-2023 ALP [Catalytic activity/Vol] 112 U/L High 34-104 [facility] Comment on above: Performed By: #### C REAT, ESR, CRP, HEPATIC, CK, CBC, MISC LAB #### [facility] [address] [place] [address] [place] #### ANTI-KU AB, MITOM2, CH50, PAT, RNA POLYMR, C3, C4 #### [facility] , Anaerobic cultureOrdered By: Bernard Peterson on 03-21-2023 Bacteria identified Anaer cx Nom (Unsp spec) No Anaerobes Isolated 3 Days [facility] Aspartate aminotransferase [ Enzymatic activity/volume] in Serum or PlasmaOrdered By: Bernard Peterson on 03-21-2023 AST [Catalytic activity/Vol] 79 U/L High 13-39 [facility] Comment on above: Performed By: #### C REAT, ESR, CRP, HEPATIC, CK, CBC, MISC LAB #### [facility] [address] [place] [address] [place] #### ANTI-KU AB, MITOM2, CH50, PAT, RNA POLYMR, C3, C4 #### [facility] , Automated basophil %Ordered By: Bernard Grace on 03-21-2023 Basophils/100 WBC (Bld) 1.6 % Normal . [facility] Comment on above: Performed By: #### C REAT, ESR, CRP, HEPATIC, CK, CBC, MISC LAB #### [facility] [address] [place] [address] [place] #### ANTI-KU AB, MITOM2, CH50, PAT, RNA POLYMR, C3, C4 #### [facility] , Automated basophil countOrde red By: Bernardmyrna Peterson on 03-21-2023 Basophils (Bld) [#/Vol] 0.1 10*3/uL Normal 0.0-0.2 [facility] Comment on above: Performed By: #### C REAT, ESR, CRP, HEPATIC, CK, CBC, MISC LAB #### [place] [address] [place] #### ANTI-KU AB, MITOM2, CH50, PAT, RNA POLYMR, C3, C4 #### [facility] , Automated blood monocyte cou ntOrdered By: Bernardmyrna Peterson on 03-21-2023 Monocytes (Bld) [#/Vol] 0.5 10*3/uL Normal 0.0-0.8 [facility] Comment on above: Performed By: #### C REAT, ESR, CRP, HEPATIC, CK, CBC, MISC LAB #### [place] [address] [place] #### ANTI-KU AB, MITOM2, CH50, PAT, RNA POLYMR, C3, C4 #### [facility] , Automated eosinophil %Ordere d By: Bernardmyrna Peterson on 03-21-2023 Eosinophils/100 WBC (Bld) 2.7 % Normal . [facility] Comment on above: Performed By: #### C REAT, ESR, CRP, HEPATIC, CK, CBC, MISC LAB #### [place] [address] [place] #### ANTI-KU AB, MITOM2, CH50, PAT, RNA POLYMR, C3, C4 #### [facility] , Automated eosinophil countOr dered By: Bernard Lrarthy on 03-21-2023 Eosinophils (Bld) [#/Vol] 0.2 10*3/uL Normal 0.0-0.45 [facility] Comment on above: Performed By: #### C REAT, ESR, CRP, HEPATIC, CK, CBC, MISC LAB #### [address] #### ANTI-KU AB, MITOM2, CH50, PAT, RNA POLYMR, C3, C4 #### [facility] , Automated erythrocytes count in urine sediment (number/area)Ordered By: PROVIDER TEMP on 03-21-2023 RBC Auto (Urine sed) [#/Area] 0-1 [HPF] 0-4 [facility] Automated leukocytes count i n urine sediment (number/area)Ordered By: PROVIDER TEMP on 03-21-2023 WBC Auto (Urine sed) [#/Area] 20-49 [HPF] 0-4 [facility] Automated monocyte %Ordered By: Bernard Peterson on 03-21-2023 Monocytes/100 WBC (Bld) 7.6 % Normal . [facility] Comment on above: Performed By: #### C REAT, ESR, CRP, HEPATIC, CK, CBC, MISC LAB #### [place] [address] [place] #### ANTI-KU AB, MITOM2, CH50, PAT, RNA POLYMR, C3, C4 #### [facility] , Automated neutrophil %Ordere d By: Bernard Peterson on 03-21-2023 Neutrophils/100 WBC (Bld) 58.4 % Normal . [facility] Comment on above: Performed By: #### C REAT, ESR, CRP, HEPATIC, CK, CBC, MISC LAB #### [address] #### ANTI-KU AB, MITOM2, CH50, PAT, RNA POLYMR, C3, C4 #### [facility] , Automated urine color determ inationOrdered By: PROVIDER TEMP on 03-21-2023 Color (U) Yellow Normal Yellow [facility] Comment on above: Order Comment: Name Collection Type:: Clean-Voided Midstream Performed By: #### C REAT, ESR, CRP, HEPATIC, CK, CBC, MISC LAB #### [facility] [address] [place] [address] #### ANTI-KU AB, MITOM2, CH50, PAT, RNA POLYMR, C3, C4 #### [facility] , Automated urine hyaline cast s count (number/volume)Ordered By: PROVIDER TEMP on 03-21-2023 Hyaline casts Auto (U) [#/Vol] None seen [LPF] 0-1 [facility] Bacterial blood cultureOrder ed By: Bernard Peterson on 03-21-2023 Bacteria identified Cx Nom (Bld) NO GROWTH 5 DAYS [facility] Basic Metabolic Panelon 02-21 Creatinine Clr Calc Pharmacy 148.92 Normal [facility] Comment on above: Performed By: #### C REAT, ESR, CRP, HEPATIC, CK, CBC, MISC LAB #### [address] #### ANTI-KU AB, MITOM2, CH50, PAT, RNA POLYMR, C3, C4 #### [facility] , GFR/1.73 sq M.predicted MDRD (S/P/Bld) [Vol rate/Area] mL/min/{1.73_m2} Normal [facility] Comment on above: Performed By: #### C REAT, ESR, CRP, HEPATIC, CK, CBC, MISC LAB #### [place] [address] [place] #### ANTI-KU AB, MITOM2, CH50, PAT, RNA POLYMR, C3, C4 #### [facility] , Bilirubin Test strip Ql (U)O rdered By: PROVIDER TEMP on 03-21-2023 Bilirubin Ql (U) Negative Negative [facility] Bilirubin.direct [Mass/volum e] in Serum or PlasmaOrdered By: Bernard Peterson on 03-21-2023 Bilirubin.direct [Mass/Vol] 0.10 mg/dL 0.03-0.18 [facility] Bilirubin.total [Mass/volume ] in Serum or PlasmaOrdered By: Bernard Peterson on 03-21-2023 Bilirubin [Mass/Vol] 0.5 mg/dL Normal 0.3-1.0 [facility] Comment on above: Performed By: #### C REAT, ESR, CRP, HEPATIC, CK, CBC, MISC LAB #### [place] [address] [place] #### ANTI-KU AB, MITOM2, CH50, PAT, RNA POLYMR, C3, C4 #### [facility] , Blood Cultureon 03-21-2023 Bacteria identified Cx Nom (Bld) NO GROWTH 5 DAYS PERFORMED BY: [place] [address] PATHOLOGIST TROUBLE DISPATCHER RUIZ CLIFTON M.D. Normal [facility] Comment on above: Performed By: #### C REAT, ESR, CRP, HEPATIC, CK, CBC, MISC LAB #### [place] [address] [place] #### ANTI-KU AB, MITOM2, CH50, PAT, RNA POLYMR, C3, C4 #### [facility] , Bacteria identified Cx Nom (Bld) NO GROWTH 5 DAYS PERFORMED BY: [place] [address] PATHOLOGIST TROUBLE DISPATCHER RUIZ CLIFTON M.D. Normal [facility] Comment on above: Performed By: #### C REAT, ESR, CRP, HEPATIC, CK, CBC, MISC LAB #### [place] [address] [place] #### ANTI-KU AB, MITOM2, CH50, PAT, RNA POLYMR, C3, C4 #### [facility] , C reactive protein [Mass/vol ume] in Serum or PlasmaOrdered By: Bernard Peterson on 03-21-2023 CRP [Mass/Vol] < 0.5 mg/dL 0.0-0.5 [facility] C-Reactive Proteinon 023 CRP [Mass/Vol] mg/L Normal 0.0-0.5 [facility] Comment on above: Result Comment: PERF ORMED BY: [place] [address] PATHOLOGIST TROUBLE DISPATCHER RUIZ CLIFTON M.D. Performed By: #### C REAT, ESR, CRP, HEPATIC, CK, CBC, MISC LAB #### [address] #### ANTI-KU AB, MITOM2, CH50, PAT, [...] Varicella zoster virus Not detected PERFORMED BY: [place] [address] PATHOLOGIST TROUBLE DISPATCHER RUIZ CLIFTON M.D. Normal [facility] Comment on above: Performed By: #### C REAT, ESR, CRP, HEPATIC, CK, CBC, MISC LAB #### [place] [address] [place] #### ANTI-KU AB, MITOM2, CH50, PAT, RNA POLYMR, C3, C4 #### [facility] , CSF and Ser Oligoclonal Band son 03-21-2023 Oligoclonal Bands Interpret Normal . [facility] Comment on above: Order Comment: Comme nt Tube 4 Result Comment: Zero (0) oligoclonal bands were observed in the CSF. However two (2) paired bands were observed in both the CSF and serum. Paired bands suggest an immune response to an inflammatory process outside the NEURODIAGNOSTIC TECHNICIAN and are unlikely to represent a NEURODIAGNOSTIC TECHNICIAN demyelinating disease. Interpretation: Criteria for Positivity: [...] Focusing (IEF) and immunoblotting methodology. Performed at: [address] [id number] Ivory Carver: Breezy Jones PhD, Phone: [phone] PERFORMED BY: [place] [address] PATHOLOGIST TROUBLE DISPATCHER RUIZ CLIFTON M.D. Performed By: #### C REAT, ESR, CRP, HEPATIC, CK, CBC, MISC LAB #### [place] [address] [place] #### ANTI-KU AB, MITOM2, CH50, PAT, RNA POLYMR, C3, C4 #### [facility] , Calcium [Mass/volume] in Ser um or PlasmaOrdered By: Bernard Peterson on 03-21-2023 Calcium [Mass/Vol] 8.5 mg/dL Low 8.6-10.3 [facility] Comment on above: Performed By: #### C REAT, ESR, CRP, HEPATIC, CK, CBC, MISC LAB #### [place] [address] [place] #### ANTI-KU AB, MITOM2, CH50, PAT, RNA POLYMR, C3, C4 #### [facility] , Carbon dioxide, total [Moles /volume] in Serum or PlasmaOrdered By: Bernard Peterosn on 03-21-2023 CO2 [Moles/Vol] 20.0 mmol/L Low 21.0-31.0 [facility] Comment on above: Performed By: #### C REAT, ESR, CRP, HEPATIC, CK, CBC, MISC LAB #### [place] [address] [place] #### ANTI-KU AB, MITOM2, CH50, PAT, RNA POLYMR, C3, C4 #### [facility] , Casts typing in urine sedime nt by light microscopyOrdered By: PROVIDER TEMP on 03-21-2023 Casts LM Nom (Urine sed) None seen [LPF] None Seen [facility] Cell Count Differential,CSFo n 03-21-2023 Appearance, CSF Clear Normal Clear [facility] Comment on above: Order Comment: Comme nt Tube 1 Performed By: #### C REAT, ESR, CRP, HEPATIC, CK, CBC, MISC LAB #### [place] [address] [place] #### ANTI-KU AB, MITOM2, CH50, PAT, RNA POLYMR, C3, C4 #### [facility] , Order Comment: Comme nt Tube 3 Color, CSF Colorless Normal Colorless [facility] Comment on above: Order Comment: Comme nt Tube 1 Performed By: #### C REAT, ESR, CRP, HEPATIC, CK, CBC, MISC LAB #### [place] [address] [place] #### ANTI-KU AB, MITOM2, CH50, PAT, RNA POLYMR, C3, C4 #### [facility] , Order Comment: Comme nt Tube 3 Comment, CSF Normal [facility] Comment on above: Order Comment: Comme nt Tube 1 Result Comment: NO N UCLEATED CELLS SEEN. DIFFERENTIAL NOT PREFORMED Performed By: #### C REAT, ESR, CRP, HEPATIC, CK, CBC, MISC LAB #### [place] [address] [place] #### ANTI-KU AB, MITOM2, CH50, PAT, RNA POLYMR, C3, C4 #### [facility] , Order Comment: Comme nt Tube 3 Result Comment: NO N UCLEATED CELL SEEN. DIFFERENTIAL NOT PREFORMED CSF Supernatant Color Colorless Normal Colorless [facility] Comment on above: Order Comment: Comme nt Tube 1 Performed By: #### C REAT, ESR, CRP, HEPATIC, CK, CBC, MISC LAB #### [address] #### ANTI-KU AB, MITOM2, CH50, PAT, RNA POLYMR, C3, C4 #### [facility] , Order Comment: Comme nt Tube 3 CSF Volume, Total 3.5 mL Normal [facility] Comment on above: Order Comment: Comme nt Tube 1 Performed By: #### C REAT, ESR, CRP, HEPATIC, CK, CBC, MISC LAB #### [place] [address] [place] #### ANTI-KU AB, MITOM2, CH50, PAT, RNA POLYMR, C3, C4 #### [facility] , Order Comment: Comme nt Tube 3 RBC, CSF 11 /uL Normal [facility] Comment on above: Order Comment: Comme nt Tube 1 Result Comment: The reference interval and other method performance specifications have not been established for this body fluid. The test result must be integrated into the clinical context for interpretation. Performed By: #### C REAT, ESR, CRP, HEPATIC, CK, CBC, MISC LAB #### [place] [address] [place] #### ANTI-KU AB, MITOM2, CH50, PAT, RNA POLYMR, C3, C4 #### [facility] , TNC, CSF 0 /uL Normal 0-5 [facility] Comment on above: Order Comment: Comme nt Tube 1 Performed By: #### C REAT, ESR, CRP, HEPATIC, CK, CBC, MISC LAB #### [address] #### ANTI-KU AB, MITOM2, CH50, PAT, RNA POLYMR, C3, C4 #### [facility] , Order Comment: Comme nt Tube 3 Tube Number Tested, CSF Tube Number: 1 Normal [facility] Comment on above: Order Comment: Comme nt Tube 1 Result Comment: PERF ORMED BY: [place] [address] PATHOLOGIST TROUBLE DISPATCHER RUIZ CLIFTON M.D. Performed By: #### C REAT, ESR, CRP, HEPATIC, CK, CBC, MISC LAB #### [address] #### ANTI-KU AB, MITOM2, CH50, PAT, RNA POLYMR, C3, C4 #### [facility] , Cell Count Differential,CSF #2on 03-21-2023 RBC, CSF 0 /uL Normal [facility] Comment on above: Order Comment: Comme nt Tube 3 Result Comment: The reference interval and other method performance specifications have not been established for this body fluid. The test result must be integrated into the clinical context for interpretation. Performed By: #### C REAT, ESR, CRP, HEPATIC, CK, CBC, MISC LAB #### [place] [address] [place] #### ANTI-KU AB, MITOM2, CH50, PAT, RNA POLYMR, C3, C4 #### [facility] , Tube Number Tested, CSF Tube Number: 3 Normal [facility] Comment on above: Order Comment: Comme nt Tube 3 Result Comment: PERF ORMED BY: [place] [address] PATHOLOGIST TROUBLE DISPATCHER RUIZ CLIFTON M.D. Performed By: #### C REAT, ESR, CRP, HEPATIC, CK, CBC, MISC LAB #### [address] #### ANTI-KU AB, MITOM2, CH50, PAT, RNA POLYMR, C3, C4 #### [facility] , Cerebrospinal fluid post-chloé trifugation appearance determinationOrdered By: Bernard Peterson on 03-21-2023 Appearance (Spun CSF) Colorless Colorless [facility] Cerebrospinal fluid sample t ube volume measurementOrdered By: Bernard Peterson on 03-21-2023 Specimen volume (CSF) 3.5 mL [facility] Chloride [Moles/volume] in S caitlyn or PlasmaOrdered By: Bernard Peterson on 03-21-2023 Chloride [Moles/Vol] 108 mmol/L High 98-107 [facility] Comment on above: Performed By: #### C REAT, ESR, CRP, HEPATIC, CK, CBC, MISC LAB #### [place] [address] [place] #### ANTI-KU AB, MITOM2, CH50, PAT, RNA POLYMR, C3, C4 #### [facility] , Color CSFOrdered By: Bernard Peterson on 03-21-2023 Color (CSF) Colorless Colorless [facility] Complete Blood Count Auto Di ffon 03-21-2023 Mean Corpuscular HGB Conc 33.5 g/dL Normal 32.0-35.0 [facility] Comment on above: Performed By: #### C REAT, ESR, CRP, HEPATIC, CK, CBC, MISC LAB #### [place] [address] [place] #### ANTI-KU AB, MITOM2, CH50, PAT, RNA POLYMR, C3, C4 #### [facility] , Monocytes/100 WBC (Bld) 19.31 % Normal 0.00-20.00 T rosemary [facility] Comment on above: Performed By: #### C REAT, ESR, CRP, HEPATIC, CK, CBC, MISC LAB #### [address] #### ANTI-KU AB, MITOM2, CH50, PAT, RNA POLYMR, C3, C4 #### [facility] , NRBC% 0.1 /100{WBC} Normal 0-0.5 [facility] Comment on above: Performed By: #### C REAT, ESR, CRP, HEPATIC, CK, CBC, MISC LAB #### [facility] [address] [place] [address] #### ANTI-KU AB, MITOM2, CH50, PAT, RNA POLYMR, C3, C4 #### [facility] , Creatinine [Mass/volume] in Serum or PlasmaOrdered By: Bernard Peterson on 03-21-2023 Creatinine [Mass/Vol] 0.49 mg/dL Low 0.60-1.20 [facility] Comment on above: Performed By: #### C REAT, ESR, CRP, HEPATIC, CK, CBC, MISC LAB #### [address] #### ANTI-KU AB, MITOM2, CH50, PAT, RNA POLYMR, C3, C4 #### [facility] , Dipstick and Microscopicon 0 03-21-2023 Appearance (U) Cloudy Critically abnormal Clear [facility] Comment on above: Order Comment: Name Collection Type:: Clean-Voided Midstream Performed By: #### C REAT, ESR, CRP, HEPATIC, CK, CBC, MISC LAB #### [place] [address] [place] #### ANTI-KU AB, MITOM2, CH50, PAT, RNA POLYMR, C3, C4 #### [facility] , Bacteria,Urine 4+ High None Seen [facility] Comment on above: Order Comment: Name Collection Type:: Clean-Voided Midstream Performed By: #### C REAT, ESR, CRP, HEPATIC, CK, CBC, MISC LAB #### [address] #### ANTI-KU AB, MITOM2, CH50, PAT, RNA POLYMR, C3, C4 #### [facility] , Bilirubin,Urine Negative Normal Negative [facility] Comment on above: Order Comment: Name Collection Type:: Clean-Voided Midstream Performed By: #### C REAT, ESR, CRP, HEPATIC, CK, CBC, MISC LAB #### [address] #### ANTI-KU AB, MITOM2, CH50, PAT, RNA POLYMR, C3, C4 #### [facility] , Glucose Ql (U) Normal Normal Normal [facility] Comment on above: Order Comment: Name Collection Type:: Clean-Voided Midstream Performed By: #### C REAT, ESR, CRP, HEPATIC, CK, CBC, MISC LAB #### [address] #### ANTI-KU AB, MITOM2, CH50, PAT, RNA POLYMR, C3, C4 #### [facility] , Hyaline Casts,Urine None Seen Normal 0-1 [facility] Comment on above: Order Comment: Name Collection Type:: Clean-Voided Midstream Performed By: #### C REAT, ESR, CRP, HEPATIC, CK, CBC, MISC LAB #### [address] #### ANTI-KU AB, MITOM2, CH50, PAT, RNA POLYMR, C3, C4 #### [facility] , Ketones Ql (U) Trace High Negative [facility] Comment on above: Order Comment: Name Collection Type:: Clean-Voided Midstream Performed By: #### C REAT, ESR, CRP, HEPATIC, CK, CBC, MISC LAB #### [address] #### ANTI-KU AB, MITOM2, CH50, PAT, RNA POLYMR, C3, C4 #### [facility] , Leukocyte esterase Test strip Ql (U) 2+ High Negative [facility] Comment on above: Order Comment: Name Collection Type:: Clean-Voided Midstream Performed By: #### C REAT, ESR, CRP, HEPATIC, CK, CBC, MISC LAB #### [address] #### ANTI-KU AB, MITOM2, CH50, PAT, RNA POLYMR, C3, C4 #### [facility] , Nitrite,Urine Positive High Negative [facility] Comment on above: Order Comment: Name Collection Type:: Clean-Voided Midstream Performed By: #### C REAT, ESR, CRP, HEPATIC, CK, CBC, MISC LAB #### [address] #### ANTI-KU AB, MITOM2, CH50, PAT, RNA POLYMR, C3, C4 #### [facility] , Occult Blood,Urine Negative Normal Negative [facility] Comment on above: Order Comment: Name Collection Type:: Clean-Voided Midstream Result Comment: PERF ORMED BY: [place] [address] PATHOLOGIST TROUBLE DISPATCHER RUIZ CLIFTON M.D. Performed By: #### C REAT, ESR, CRP, HEPATIC, CK, CBC, MISC LAB #### [address] #### ANTI-KU AB, MITOM2, CH50, PAT, RNA POLYMR, C3, C4 #### [facility] , Other Casts,Urine None Seen Normal None Seen [facility] Comment on above: Order Comment: Name Collection Type:: Clean-Voided Midstream Result Comment: PERF ORMED BY: [place] [address] PATHOLOGIST TROUBLE DISPATCHER RUIZ CLIFTON M.D. Performed By: #### C REAT, ESR, CRP, HEPATIC, CK, CBC, MISC LAB #### [address] #### ANTI-KU AB, MITOM2, CH50, PAT, RNA POLYMR, C3, C4 #### [facility] , Protein,Urine Trace High Negative [facility] Comment on above: Order Comment: Name Collection Type:: Clean-Voided Midstream Performed By: #### C REAT, ESR, CRP, HEPATIC, CK, CBC, MISC LAB #### [address] #### ANTI-KU AB, MITOM2, CH50, PAT, RNA POLYMR, C3, C4 #### [facility] , RBC LM.HPF (Urine sed) [#/Area] 0 /[HPF] Normal 0-4 [facility] Comment on above: Order Comment: Name Collection Type:: Clean-Voided Midstream Performed By: #### C REAT, ESR, CRP, HEPATIC, CK, CBC, MISC LAB #### [address] #### ANTI-KU AB, MITOM2, CH50, PAT, RNA POLYMR, C3, C4 #### [facility] , Specificy [place],Urine 1.019 Normal 1.001-1.030 [facility] Comment on above: Order Comment: Name Collection Type:: Clean-Voided Midstream Performed By: #### C REAT, ESR, CRP, HEPATIC, CK, CBC, MISC LAB #### [place] [address] [place] #### ANTI-KU AB, MITOM2, CH50, PAT, RNA POLYMR, C3, C4 #### [facility] , Squamous Epithelial Cell,Urine 10-19 High 0-2 [facility] Comment on above: Order Comment: Name Collection Type:: Clean-Voided Midstream Performed By: #### C REAT, ESR, CRP, HEPATIC, CK, CBC, MISC LAB #### [address] #### ANTI-KU AB, MITOM2, CH50, PAT, RNA POLYMR, C3, C4 #### [facility] , Urobilinogen,Urine Normal Normal Normal [facility] Comment on above: Order Comment: Name Collection Type:: Clean-Voided Midstream Performed By: #### C REAT, ESR, CRP, HEPATIC, CK, CBC, MISC LAB #### [address] #### ANTI-KU AB, MITOM2, CH50, PAT, RNA POLYMR, C3, C4 #### [facility] , WBC,Urine 20-49 High 0-4 [facility] Comment on above: Order Comment: Name Collection Type:: Clean-Voided Midstream Performed By: #### C REAT, ESR, CRP, HEPATIC, CK, CBC, MISC LAB #### [address] #### ANTI-KU AB, MITOM2, CH50, PAT, RNA POLYMR, C3, C4 #### [facility] , ECG 12 lead ECGon 03-21-2023 ECG 12 lead ECG [facility] [place] [address] Electrocardiograph Report Signed Patient: Rica Stout MR#: [id number] 39 : 1995 Acct:[id number] Age/Sex: 27 / F ADM Date: 03/22/23 Loc: Room: 1V6825-6 Type: ADM IN Attending Dr: Parveen Keller MD Ordering Provider: Bernard Peterson, Date of Service: 03/21/23 ECG/ECG 12 lead [...] Sinus tachycardia Confirmed by Bernard Peterson DO ([id number]) on 03/22/2023 4:03:33 AM Referred By: Electronically Signed By:Bernard Peterson DO Transcribed By: MUS Signed By Bernard Peterson DO [id number] Normal [facility] Erythrocyte Sedimentation Ra mert 03-21-2023 ESR (Bld) [Velocity] 21 mm/h High 0-19 [facility] Comment on above: Result Comment: PERF ORMED BY: [place] [address] PATHOLOGIST TROUBLE DISPATCHER RUIZ CLIFTON M.D. Performed By: #### C REAT, ESR, CRP, HEPATIC, CK, CBC, [facility] #### [address] #### ANTI-KU AB, MITOM2, CH50, PAT, RNA POLYMR, C3, C4 #### [facility] , Erythrocyte distribution wid th [Ratio] by Automated countOrdered By: Bernard Peterson on 03-21-2023 Erythrocyte distribution width (RBC) [Ratio] 14.5 % Normal 11.9-15.3 [facility] Comment on above: Performed By: #### C REAT, ESR, CRP, HEPATIC, CK, CBC, MISC LAB #### [place] [address] [place] #### ANTI-KU AB, MITOM2, CH50, PAT, RNA POLYMR, C3, C4 #### [facility] , Erythrocyte sedimentation ra te by Photometric methodOrdered By: Bernard Peterson on 03-21-2023 ESR Photometric method (Bld) [Velocity] 21 mm/hr 0-19 [facility] Erythrocytes [#/volume] in B lood by Automated countOrdered By: Bernard Peterson on 08-31-2023 RBC (Bld) [#/Vol] 3.48 10*6/uL Low 3.60-5.00 [facility] Comment on above: Performed By: #### C REAT, ESR, CRP, HEPATIC, CK, CBC, MISC LAB #### [place] [address] [place] #### ANTI-KU AB, MITOM2, CH50, PAT, RNA POLYMR, C3, C4 #### [facility] , Glucose [Mass/volume] in Cer ebral spinal fluidOrdered By: Bernard Peterson on 03-21-2023 Glucose (CSF) [Mass/Vol] 84 mg/dL 40-70 [facility] Glucose [Mass/volume] in Ser um or PlasmaOrdered By: Bernard Peterson on 03-21-2023 Glucose [Mass/Vol] 130 mg/dL High 70-100 [facility] Comment on above: ADA recommended refe rence rangeRandom Glucose Reference Range is dependent on time and content of last meal. Glucose of more than 200 mg/dL in a nonstressed, ambulatory subject supports the diagnosis of Diabetes Mellitus. Result Comment: [place] om Glucose Reference Range is dependent on time and content of last meal. Glucose of more than 200 mg/dL in a nonstressed, ambulatory subject supports the diagnosis of Diabetes Mellitus. ADA recommended reference range Performed By: #### C REAT, ESR, CRP, HEPATIC, CK, CBC, MISC LAB #### [place] [address] [place] #### ANTI-KU AB, MITOM2, CH50, PAT, RNA POLYMR, C3, C4 #### [facility] , Glucose, CSF #2on 03-21-2023 Glucose, CSF #2 84 mg/dL High 40-70 [facility] Comment on above: Order Comment: Comme nt Tube 3 Performed By: #### C REAT, ESR, CRP, HEPATIC, CK, CBC, MISC LAB #### [place] [address] [place] #### ANTI-KU AB, MITOM2, CH50, PAT, RNA POLYMR, C3, C4 #### [facility] , Glucose, Spinal Fluidon 08- Glucose, Spinal Fluid 84 mg/dL High 40-70 [facility] Comment on above: Order Comment: Comme nt Tube 1 Performed By: #### C REAT, ESR, CRP, HEPATIC, CK, CBC, MISC LAB #### [place] [address] [place] #### ANTI-KU AB, MITOM2, CH50, PAT, RNA POLYMR, C3, C4 #### [facility] , Gram Stainon 03-21-2023 Microscopic observation Gram stain Nom (Unsp spec) Comment Tube 2 Gram Stain Result No Bacteria Seen No White Blood Cells Seen PERFORMED BY: [place] [address] PATHOLOGIST TROUBLE DISPATCHER RUIZ CLIFTON M.D. Normal [facility] Comment on above: Performed By: #### C REAT, ESR, CRP, HEPATIC, CK, CBC, MISC LAB #### [place] [address] [place] #### ANTI-KU AB, MITOM2, CH50, PAT, RNA POLYMR, C3, C4 #### [facility] , Gram stain for investigation of transfusion reactionOrdered By: Bernard Peterson on 03-21-2023 Microscopic observation Gram stain Nom (Unsp spec) [facility] HCG ( test) IA.rapi d Ql (U)Ordered By: Bernard Peterson on 03-21-2023 HCG ( test) Ql (U) Negative [facility] HCG,Urineon 03-21-2023 Beta HCG ( test) Ql (U) Negative Normal [facility] Comment on above: Result Comment: PERF ORMED BY: [place] [address] PATHOLOGIST TROUBLE DISPATCHER RUIZ CLIFTON M.D. Performed By: #### C REAT, ESR, CRP, HEPATIC, CK, CBC, MISC LAB #### [address] [address] [place] #### ANTI-KU AB, MITOM2, CH50, PAT, RNA POLYMR, C3, C4 #### [facility] , Hematocrit [Volume Fraction] of Blood by Automated countOrdered By: Bernard Lrarthy on 03-21-2023 Hematocrit (Bld) [Volume fraction] 37.8 % Normal 34.0-46.4 [facility] Comment on above: Performed By: #### C REAT, ESR, CRP, HEPATIC, CK, CBC, MISC LAB #### [address] #### ANTI-KU AB, MITOM2, CH50, PAT, RNA POLYMR, C3, C4 #### [facility] , Hemoglobin [Mass/volume] in BloodOrdered By: Bernard Peterson on 03-21-2023 Hemoglobin (Bld) [Mass/Vol] 12.7 g/dL Normal 11.8-15.4 [facility] Comment on above: Performed By: #### C REAT, ESR, CRP, HEPATIC, CK, CBC, MISC LAB #### [address] #### ANTI-KU AB, MITOM2, CH50, PAT, RNA POLYMR, C3, C4 #### [facility] , Hepatic Panelon 03-21-2023 Albumin [Mass/Vol] 3.5 g/dL Normal 3.5-5.7 [facility] Comment on above: Performed By: #### C REAT, ESR, CRP, HEPATIC, CK, CBC, MISC LAB #### [address] #### ANTI-KU AB, MITOM2, CH50, PAT, RNA POLYMR, C3, C4 #### [facility] , Bilirubin,Indirect 0.4 mg/dL Normal [facility] Comment on above: Performed By: #### C REAT, ESR, CRP, HEPATIC, CK, CBC, MISC LAB #### [facility] [address] [place] [address] [place] #### ANTI-KU AB, MITOM2, CH50, PAT, RNA POLYMR, C3, C4 #### [facility] , Bilirubin.indirect [Mass/Vol] 0.10 mg/dL Normal 0.03-0.18 [facility] Comment on above: Performed By: #### C REAT, ESR, CRP, HEPATIC, CK, CBC, MISC LAB #### [place] [address] [place] #### ANTI-KU AB, MITOM2, CH50, PAT, RNA POLYMR, C3, C4 #### [facility] , INR in Platelet poor plasma by Coagulation assayOrdered By: Bernard Peterson on 03-21-2023 INR Coag (PPP) [Relative time] 1.1 {INR} Normal [facility] Comment on above: INR Therapeutic Rang [...] CRP, HEPATIC, CK, CBC, MISC LAB #### [facility] [address] [place] [address] [place] #### ANTI-KU AB, MITOM2, CH50, PAT, RNA POLYMR, C3, C4 #### [facility] , Ketones Auto test strip (U) [Mass/Vol]Ordered By: ELENI BLOOM on 03-21-2023 Ketones (U) [Mass/Vol] Trace Negative [facility] Lactate [Moles/volume] in Se rum or PlasmaOrdered By: Bernard Peterson on 03-21-2023 Lactate [Moles/Vol] 3.9 mmol/L Off scale high 0.5-2.2 [facility] Comment on above: Critical Result : Ca lled to and read back by: DIPTI REGALADO at: 03/21/2023 22:31:27 by:LFM Result Comment: Crit ical Result : Called to and read back by: DIPTI REGALADO at: 03/21/2023 22:31:27 by:LFM PERFORMED BY: [place] [address] PATHOLOGIST TROUBLE DISPATCHER RUIZ CLIFTON M.D. Performed By: #### C REAT, ESR, CRP, HEPATIC, CK, CBC, MISC LAB #### [facility] [address] [place] [address] #### ANTI-KU AB, MITOM2, CH50, PAT, RNA POLYMR, C3, C4 #### [facility] , Leukocytes [#/volume] correc antoine for nucleated erythrocytes in Blood by Automated counOrdered By: Bernard Peterson on 03-21-2023 WBC corrected for nucl RBC Auto (Bld) [#/Vol] 7.2 10*3/uL 3.8-11.6 [facility] Leukocytes [#/volume] in Blo od by Automated countOrdered By: Bernard Peterson on 03-21-2023 WBC (Bld) [#/Vol] 7.2 10*3/uL Normal 3.8-11.6 [facility] Comment on above: Performed By: #### C REAT, ESR, CRP, HEPATIC, CK, CBC, MISC LAB #### [facility] [address] [place] [address] [place] #### ANTI-KU AB, MITOM2, CH50, PAT, RNA POLYMR, C3, C4 #### [facility] , Lymphocytes [#/volume] in Bl ood by Automated countOrdered By: Bernard Peterson on 03-21-2023 Lymphocytes (Bld) [#/Vol] 2.1 10*3/uL Normal 1.00-4.8 [facility] Comment on above: Performed By: #### C REAT, ESR, CRP, HEPATIC, CK, CBC, MISC LAB #### [place] [address] [place] #### ANTI-KU AB, MITOM2, CH50, PAT, RNA POLYMR, C3, C4 #### [facility] , Lymphocytes/100 leukocytes i n Blood by Automated countOrdered By: Bernard Lrarthy on 03-21-2023 Lymphocytes/100 WBC (Bld) 29.7 % Normal . [facility] Comment on above: Performed By: #### C REAT, ESR, CRP, HEPATIC, CK, CBC, MISC LAB #### [place] [address] [place] #### ANTI-KU AB, MITOM2, CH50, PAT, RNA POLYMR, C3, C4 #### [facility] , MCH [Entitic mass] by Automa antoine countOrdered By: Bernardmyrna Peterson on 03-21-2023 MCH (RBC) [Entitic mass] 36.3 pg High 24.7-34.3 [facility] Comment on above: Performed By: #### C REAT, ESR, CRP, HEPATIC, CK, CBC, MISC LAB #### [place] [address] [place] #### ANTI-KU AB, MITOM2, CH50, PAT, RNA POLYMR, C3, C4 #### [facility] , MCHC Auto (RBC) [Mass/Vol]Or dered By: Bernard Peterson on 03-21-2023 MCHC (RBC) [Mass/Vol] 33.5 g/dL 32.0-35.0 [facility] MCV [Entitic volume] by Auto mated countOrdered By: Bernard Peterson on 03-21-2023 MCV (RBC) [Entitic vol] 108.6 fL High 80-100 [facility] Comment on above: Performed By: #### C REAT, ESR, CRP, HEPATIC, CK, CBC, MISC LAB #### [facility] [address] [place] [address] [place] #### ANTI-KU AB, MITOM2, CH50, PAT, RNA POLYMR, C3, C4 #### [facility] , Magnesium [Mass/volume] in S caitlyn or PlasmaOrdered By: Bernard Peterson on 03-21-2023 Magnesium [Mass/Vol] 1.4 mg/dL Low 1.9-2.7 [facility] Comment on above: Performed By: #### C REAT, ESR, CRP, HEPATIC, CK, CBC, MISC LAB #### [facility] [address] [place] [address] [place] #### ANTI-KU AB, MITOM2, CH50, PAT, RNA POLYMR, C3, C4 #### [facility] , Manual cerebrospinal fluid e rythrocytes count (number/volume)Ordered By: Bernard Peterson on 03-21-2023 RBC Manual cnt (CSF) [#/Vol] 0 /uL [facility] Comment on above: The reference interv al and other method performance specifications have not been established for this body fluid. The test result must be integrated into the clinical context for interpretation. Meningitis+Encephalitis path ogens DNA and RNA panel - Cerebral spinal fluid by OKSANA wiOrdered By: Bernard Peterson on 03-21-2023 Meningitis+Encephalitis pathogens DNA and RNA panel OKSANA+non-probe (CSF) [facility] Monocyte distribution width [Entitic volume] in Blood by AutomatedOrdered By: Bernard Peterson on 03-21-2023 Monocyte distribution width Auto (Bld) [Entitic vol] 19.31 % 0.00-20.00 [facility] Neutrophils [#/volume] in Bl ood by Automated countOrdered By: Bernard Peterson on 03-21-2023 Neutrophils (Bld) [#/Vol] 4.2 10*3/uL Normal 1.8-7.7 [facility] Comment on above: Performed By: #### C REAT, ESR, CRP, HEPATIC, CK, CBC, MISC LAB #### [facility] [address] [place] [address] [place] #### ANTI-KU AB, MITOM2, CH50, PAT, RNA POLYMR, C3, C4 #### [facility] , Nitrite Test strip Ql (U)Ord ered By: PROVIDER TEMP on 03-21-2023 Nitrite Ql (U) Positive Negative [facility] No Panel InformationOrdered By: Bernard Peterson on 03-21-2023 CSF Appearance Clear Clear [facility] CSF Differential Comment See comment [facility] Comment on above: NO NUCLEATED CELLS S EEN. DIFFERENTIAL NOT PREFORMED CSF Eosinophils N/A [facility] CSF Lymphocytes N/A [facility] CSF Monocytes N/A [facility] CSF Neutrophils Gear Machinist [facility] Comment on above: The reference interv al and other method performance specifications have not been established for this body fluid. The test result must be integrated into the clinical context for interpretation. CSF Tube Number Tube number: 3 [facility] Estimated GFR (CKD-EPI) > 60.0 mL/Min [facility] Creatinine Clearance (Chem 148.92 [facility] Nucleated cells [#/volume] i n Cerebral spinal fluid by Manual countOrdered By: Bernard Peterson on 03-21-2023 Nucleated cells Manual cnt (CSF) [#/Vol] 0 10*3/uL 0-5 [facility] Nucleated erythrocytes [Pres ence] in Blood by Automated countOrdered By: Bernard Peterson on 03-21-2023 Nucleated RBC Auto Ql (Bld) 0.1 /100{WBC} 0-0.5 [facility] Partial Thromboplastin Timeo n 03-21-2023 aPTT Coag (Bld) [Time] 30.4 s Normal 25.1-36.5 [facility] Comment on above: Result Comment: PERF ORMED BY: [facility] [address] [place] [address] PATHOLOGIST TROUBLE DISPATCHER RUIZ CLIFTON M.D. Performed By: #### C REAT, ESR, CRP, HEPATIC, CK, CBC, MISC LAB #### [facility] [address] [place] [address] [place] #### ANTI-KU AB, MITOM2, CH50, PAT, RNA POLYMR, C3, C4 #### [facility] , Phosphate [Mass/volume] in S caitlyn or PlasmaOrdered By: Bernard Peterson on 03-21-2023 Phosphate [Mass/Vol] 2.3 mg/dL Low 3.7-7.2 [facility] Comment on above: Performed By: #### C REAT, ESR, CRP, HEPATIC, CK, CBC, MISC LAB #### [address] #### ANTI-KU AB, MITOM2, CH50, PAT, RNA POLYMR, C3, C4 #### [facility] , Platelet mean volume [Entiti c volume] in Blood by Automated countOrdered By: Bernard Peterson on 03-21-2023 Platelet mean volume (Bld) [Entitic vol] 7.9 fL Normal 6.3-10.7 [facility] Comment on above: Performed By: #### C REAT, ESR, CRP, HEPATIC, CK, CBC, MISC LAB #### [place] [address] [place] #### ANTI-KU AB, MITOM2, CH50, PAT, RNA POLYMR, C3, C4 #### [facility] , Platelets [#/volume] in Bloo d by Automated countOrdered By: Bernard Peterson on 03-21-2023 Platelets (Bld) [#/Vol] 319 10*3/uL Normal 150-450 [facility] Comment on above: Performed By: #### C REAT, ESR, CRP, HEPATIC, CK, CBC, MISC LAB #### [place] [address] [place] #### ANTI-KU AB, MITOM2, CH50, PAT, RNA POLYMR, C3, C4 #### [facility] , Potassium [Moles/volume] in Serum or PlasmaOrdered By: Bernard Peterson on 03-21-2023 Potassium [Moles/Vol] 3.2 mmol/L Low 3.5-5.1 [facility] Comment on above: Performed By: #### C REAT, ESR, CRP, HEPATIC, CK, CBC, MISC LAB #### [facility] [address] [place] [address] [place] #### ANTI-KU AB, MITOM2, CH50, PAT, RNA POLYMR, C3, C4 #### [facility] , Protein Auto test strip (U) [Mass/Vol]Ordered By: PROVIDER TEMP on 03-21-2023 Protein (U) [Mass/Vol] Trace mg/dL Negative [facility] Protein [Mass/volume] in Cer ebral spinal fluidOrdered By: Bernard Peterson on 03-21-2023 Protein (CSF) [Mass/Vol] 39 mg/dL 15-45 [facility] Protein [Mass/volume] in Ser um or PlasmaOrdered By: Bernard Peterson on 03-21-2023 Protein [Mass/Vol] 6.8 g/dL Normal 6.4-8.9 [facility] Comment on above: Performed By: #### C REAT, ESR, CRP, HEPATIC, CK, CBC, MISC LAB #### [place] [address] [place] #### ANTI-KU AB, MITOM2, CH50, PAT, RNA POLYMR, C3, C4 #### [facility] , Protein fractions.oligoclona l bands.intrathecal [Presence] in Serum and CSFOrdered By: Bernard Peterson on 03-21-2023 Protein fractions.oligoclonal bands.intrathecal Ql (S+CSF) See comment . [facility] Comment on above: Zero (0) oligoclonal bands were observed in the CSF.However two (2) paired bands were observed in both the CSFand serum. Paired bands suggest an immune response to aninflammatory process outside the NEURODIAGNOSTIC TECHNICIAN and are unlikely torepresent a NEURODIAGNOSTIC TECHNICIAN demyelinating disease.Interpretation: Criteria for Positivity: Four (4) or more oligoclonalbands observed only in the CSF have been shown to be mostconsistent with MS using our method. [Claudia , Yesy, Nicholas MORELAND, and Bolivar JA: Cerebrospinal FluidOligoclonal Bands in [...] (IEF) and immunoblotting methodology.Performed at: - [facility] [place] [id number] Director: Breezy Jones PhD, Phone: [phone] Prothrombin Time INROrdered By: Bernard Peterson on 03-21-2023 PT Coag (PPP) [Time] 12.4 s Normal 9.0-12.9 [facility] Comment on above: Performed By: #### C REAT, ESR, CRP, HEPATIC, CK, CBC, [facility] #### [facility] [address] [place] [address] #### ANTI-KU AB, MITOM2, CH50, PAT, RNA POLYMR, C3, C4 #### [facility] , Serum globulin measurement b y calculation (mass/volume)Ordered By: Bernard Peterson on 03-21-2023 Globulin (S) [Mass/Vol] 3.3 g/dL Normal [facility] Comment on above: Performed By: #### C REAT, ESR, CRP, HEPATIC, CK, CBC, [facility] #### [facility] [address] [place] [address] [place] #### ANTI-KU AB, MITOM2, CH50, PAT, RNA POLYMR, C3, C4 #### [facility] , Serum or plasma albumin/glob ulin mass ratioOrdered By: Bernard Peterson on 03-21-2023 Albumin/Globulin [Mass ratio] 1.1 {ratio} Normal [facility] Comment on above: Performed By: #### C REAT, ESR, CRP, HEPATIC, CK, CBC, MISC LAB #### [facility] [address] [place] [address] #### ANTI-KU AB, MITOM2, CH50, PAT, RNA POLYMR, C3, C4 #### [facility] , Serum or plasma anion gap de terminationOrdered By: Bernard Peterson on 03-21-2023 Anion gap [Moles/Vol] 16.2 mmol/L High 6.0-15.[address] [facility] Comment on above: Performed By: #### C REAT, ESR, CRP, HEPATIC, CK, CBC, MISC LAB #### [facility] [address] [place] [address] [place] #### ANTI-KU AB, MITOM2, CH50, PAT, RNA POLYMR, C3, C4 #### [facility] , Serum or plasma non-glucuron idated bilirubin measurement (mass/volume)Ordered By: Bernard Peterson on 03-21-2023 Bilirubin.indirect [Mass/Vol] 0.4 mg/dL [facility] Sodium [Moles/volume] in Ser um or PlasmaOrdered By: Bernard Peterson on 03-21-2023 Sodium [Moles/Vol] 141 mmol/L Normal 136-145 [facility] Comment on above: Performed By: #### C REAT, ESR, CRP, HEPATIC, CK, CBC, MISC LAB #### [facility] [address] [place] [address] [place] #### ANTI-KU AB, MITOM2, CH50, PAT, RNA POLYMR, C3, C4 #### [facility] , Specific gravity Auto test s trip (U) [Rel density]Ordered By: PROVIDER TEMP on 03-21-2023 Specific gravity (U) [Rel density] 1.019 1.001-1.030 [facility] Squamous epithelial cells de tection in urine sediment by light microscopyOrdered By: PROVIDER TEMP on 03-21-2023 Epithelial cells.squamous LM Ql (Urine sed) 10-19 [HPF] 0-2 [facility] Total Protein, CSF #2on 02-21 Total Protein, CSF #2 36 mg/dL Normal 15-45 [facility] Comment on above: Order Comment: Comme nt Tube 3 Result Comment: PERF ORMED BY: [place] [address] PATHOLOGIST TROUBLE DISPATCHER RUIZ CLIFTON M.D. Performed By: #### C REAT, ESR, CRP, HEPATIC, CK, CBC, MISC LAB #### [address] #### ANTI-KU AB, MITOM2, CH50, PAT, RNA POLYMR, C3, C4 #### [facility] , Total Protein, Spinal Fluido n 03-21-2023 Total Protein, Spinal Fluid 39 mg/dL Normal 15-45 [facility] Comment on above: Order Comment: Comme nt Tube 1 Result Comment: PERF ORMED BY: [place] [address] PATHOLOGIST TROUBLE DISPATCHER RUIZ CLIFTON M.D. Performed By: #### C REAT, ESR, CRP, HEPATIC, CK, CBC, MISC LAB #### [place] [address] [place] #### ANTI-KU AB, MITOM2, CH50, PAT, RNA POLYMR, C3, C4 #### [facility] , Urea nitrogen [Mass/volume] in Serum or PlasmaOrdered By: Bernard Peterson on 03-21-2023 Urea nitrogen [Mass/Vol] 3 mg/dL Low 7-25 [facility] Comment on above: Performed By: #### C REAT, ESR, CRP, HEPATIC, CK, CBC, MISC LAB #### [place] [address] [place] #### ANTI-KU AB, MITOM2, CH50, PAT, RNA POLYMR, C3, C4 #### [facility] , Urine Cultureon 03-21-2023 Bacteria identified Cx Nom (U) ORGANISM: Klebsiella pneumoniae (O:KLEPNE) Clune Count >100,000 Aerobic JOSEPH Charge ([id number]) - [...] RESISTANT TO ALL B-LACTAM DRUGS. PERFORMED [place] [address] PATHOLOGIST TROUBLE DISPATCHER RUIZ CLIFTON M.D. Normal [facility] Comment on above: Performed By: #### C REAT, ESR, CRP, HEPATIC, CK, CBC, MISC LAB #### [facility]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 [address] [place] [address] [place] [address] [place] Opiates Screen Ql (U) Negative Normal Negative [facility] Comment on above: Order Comment: Speci men Type: URINE SPECIMEN Ordering Facility: [facility] Address: [address] [place] [address] Result Comment: Cuto ff threshold at 300 ng/mL. Performed By: #### U TOX2, 2105-09 #### [facility] CLIA [id number] [address] [place], [place] [address] [place] oxyCODONE cutoff Screen (U) [Mass/Vol] Negative Normal Negative [facility] Comment on above: Order Comment: Speci men Type: URINE SPECIMEN Ordering Facility: [facility] Address: [address], [place], [place] [address] Result Comment: Cuto ff threshold at 100 ng/mL. Performed By: #### U TOX2, 2105-09 #### [facility] CLIA [id number] [address] [place] [address] [place] Phencyclidine Ql (U) Negative Normal Negative [facility] Comment on above: Order Comment: Speci men Type: URINE SPECIMEN Ordering Facility: [facility] Address: [address] [place] [address] Result Comment: Cuto ff threshold at 25 ng/mL. Performed By: #### U TOX2, 2105-09 #### [facility] CLIA [id number] [address] [place] [address] [place] Urinalysis complete panel (U )on 01-28-2023 Bacteria LM.HPF (Urine sed) [#/Area] Many Abnormal None Seen [facility] Comment on above: Order Comment: Speci men Type: URINE SPECIMENOrdering Facility: [facility] Address: [address] [place], [place] [address] Performed By: #### 2 4356-8 ####[facility] [id number] [address] LABCLIA [id number] [address] [place] Bilirubin Ql (U) Negative Normal Negative [facility] Comment on above: Order Comment: Speci men Type: URINE SPECIMENOrdering Facility: [facility] Address: [address] [place], [place] [address] Performed By: #### 2 4356-8 ####[facility] [id number] [address] STATES OF [facility] LABCLIA [id number] [place] [id number] [place] Clarity (Unsp spec) Clear Normal Clear [facility] Comment on above: Order Comment: Speci men Type: URINE SPECIMENOrdering Facility: [facility] Address: [address] [place] [address] Performed By: #### 2 4356-8 ####[facility] [id number] [address] [place] [address] LABCLIA [id number] [address] Color (U) Yellow Normal Yellow [facility] Comment on above: Order Comment: Speci men Type: URINE SPECIMENOrdering Facility: [facility] Address: [address] [place] [address] Performed By: #### 2 4356-8 ####[facility] [id number] [address] [place] [address] LABCLIA [id number] [address] Epithelial cells LM.HPF (Urine sed) [#/Area] Many Normal [facility] Comment on above: Order Comment: Speci men Type: URINE SPECIMENOrdering Facility: [facility] Address: [address] [place] [address] Performed By: #### 2 4356-8 ####[facility] [id number] [address] LABCLIA [id number] [address] [place] Glucose Test strip (U) [Mass/Vol] Negative Normal Negative [facility] Comment on above: Order Comment: Speci men Type: URINE SPECIMENOrdering Facility: [facility] Address: [address] [place] [address] Performed By: #### 2 4356-8 ####[facility] [id number] [address] LABCLIA [id number] [place] [address] [place] Hemoglobin Ql (U) Negative Normal Negative, Trace [facility] Comment on above: Order Comment: Speci men Type: URINE SPECIMENOrdering Facility: [facility] Address: [address] [place], [place] [address] Performed By: #### 2 4356-8 ####[facility] [id number] [address] LABCLIA [id number] [place] [address] [place] Ketones Ql (U) Negative Normal Negative [facility] Comment on above: Order Comment: Speci men Type: URINE SPECIMENOrdering Facility: [facility] Address: [address] [place] [address] Performed By: #### 2 4356-8 ####[facility] [id number] [address] LABCLIA [id number] [address] [place] Leukocyte esterase Test strip Ql (U) 1+ Abnormal Negative [facility] Comment on above: Order Comment: Speci men Type: URINE SPECIMENOrdering Facility: [facility] Address: [address] [place], [place] [address] Performed By: #### 2 4356-8 ####[facility] [id number] [place] [id number] [facility] LABCLIA [id number] [address] [place] Nitrite Ql (U) Negative Normal Negative [facility] Comment on above: Order Comment: Speci men Type: URINE SPECIMENOrdering Facility: [facility] Address: [address] [place] [address] Performed By: #### 2 4356-8 ####[facility] [id number] [address] [place] [address] LABCLIA [id number] [place] [address] [place] pH (U) 6.0 [pH] Normal 5.0-8.0 [facility] Comment on above: Order Comment: Speci men Type: URINE SPECIMENOrdering Facility: [facility] Address: [address] [place] [address] Performed By: #### 2 4356-8 ####[facility] [id number] [address] [place] [address] LABCLIA [id number] [place] [address] [place] Protein (U) [Mass/Vol] Negative Normal Negative [facility] Comment on above: Order Comment: Speci men Type: URINE SPECIMENOrdering Facility: [facility] Address: [address] [place] [address] Performed By: #### 2 4356-8 ####[facility] [id number] [address] LABCLIA [id number] [place] [address] [place] RBC LM.HPF (Urine sed) [#/Area] 0-3 /HPF Normal 0-3 /HPF [facility] Comment on above: Order Comment: Speci men Type: URINE SPECIMENOrdering Facility: [facility] Address: [address] [place] [address] Performed By: #### 2 4356-8 ####[facility] [id number] [address] LABCLIA [id number] [place] [address] [place] Specific gravity (U) [Rel density] <=1.005 Low 1.005-1.030 [facility] Comment on above: Order Comment: Speci men Type: URINE SPECIMENOrdering Facility: [facility] Address: [address] [place] [address] Performed By: #### 2 4356-8 ####[facility] [id number] [address] [place] [address] LABCLIA [id number] [address] Urobilinogen Ql (U) 0.2 EU/dL Normal 0.2-1.0 EU/dL [facility] Comment on above: Order Comment: Speci men Type: URINE SPECIMENOrdering Facility: [facility] Address: [address] [place] [address] Performed By: #### 2 4356-8 ####[facility] [id number] [address] [place] [address] LABCLIA [id number] [address] [place] WBC LM.HPF (Urine sed) [#/Area] 11-25 /HPF Abnormal 0-5 /HPF [facility] Comment on above: Order Comment: Speci men Type: URINE SPECIMENOrdering Facility: [facility] Address: [address] [place] [address] Performed By: #### 2 4356-8 ####[facility] [id number] [address] LABCLIA [id number] [address] [place] Urinalysis complete pnl Uron [...] <=32 , Intermediate >32 , Resistant >64 [facility] Comment on above: Order Comment: Speci men Type: URINE SPECIMENOrdering Facility: [facility] Address: [address] [id number] Performed By: #### 2 4356-8 ####[facility] [id number] [address] [place] [address] OF [facility] LABCLIA [id number] [facility] [id number] [place] [address] OF [facility] XR CSPINE MIN 4 VIEWSon 09-21 XR [...] by: KARYNA LANGFORD Date: 2022-10-19 08:05 Normal [facility] MRI LSPINE WO CONon 10-19-19 23 [...] KARYNA LANGFORD Date: 2022-10-18 15:24 Normal [facility] XR LSPINE MIN 4 VIEWSon 09-19 XR [...] DAVID TRUONG Date: 2022-09-28 07:03 Normal [facility] MAMMO POST BIOPSY RIGHTon MAMMO POST BIOPSY RIGHT Patient: RICA STOUT Exam Date: 09/27/2022 : 1995 Gender:F Ordering : [facility] Admission #: [id number] Family : DR KARYNA LANGFORD M.D. Order #: [id number] CLICK HERE TO VIEW EXAM This report [...] MD on 10/03/2022 at 06:51 Normal [facility] US VAC ASST BX BRST RT W CLI Cyrus 09-27-2022 US VAC ASST BX BRST RT W CLIP Patient: RICA STOUT Exam Date: 09/27/2022 : 1995 Gender:F Ordering : [facility] Admission #: [id number] Family : Order #: [id number] CLICK HERE TO VIEW EXAM This report [...] MD on 10/03/2022 at 06:48 Normal [facility] PAT by IFAon 09-25-2022 Antinuclear Antibodies, IFA Negative Normal [facility] Comment on above: Result Comment: Nega tive <1:80 Borderline 1:80 Positive >1:80 ICAP nomenclature: AC-0 For more information about Hep-2 cell patterns use ANApatterns.org, the official website for the International Consensus on Antinuclear Antibody (PAT) Patterns (ICAP). Performed By: #### C IRINA BENOIT #### [facility] [address] [place] [address] Dr. Kush Call ANTISTREPTOLYSIN O AB (ASO)o n 09-20-2022 Antistreptolysin O Ab 71.6 IU/mL Normal 0.0-200.0 [facility] Comment on above: Performed By: #### C IRINA BENOIT #### [facility] [address] [place] [address] Dr. Kush Call MG MAMM DIAGNOSTIC 3D JOAQUIM CA Don 09-20-2022 MG MAMM DIAGNOSTIC 3D JOAQUIM CAD Patient: RICA STOUT Exam Date: 09/20/2022 : 1995 Gender:F Ordering : [facility] Admission #: [id number] Family : Order #: [id number] CLICK HERE TO VIEW EXAM RADIOLOGY REPORT [...] unknown cancer at age 70. LOCATION: [facility] BREAST COMPOSITION: Heterogeneously dense,which may [...] MD on 09/20/2022 at 14:51 Normal [facility] RHEUMATOID FACTORon 09-21-19 RA Latex Turbid. <10.0 Normal <14.0 [facility] Comment on above: Performed By: #### C MP, CMADM #### [facility] [address] [place] [address] Dr. Kush Call CRPon 09-19-2022 CRP [Mass/Vol] mg/L Normal <=1.0 [facility] Comment on above: Performed By: #### C RP, CMP, URIC, MG #### [facility] [address] [place] [address] Dr. Kush Call FOLATEon 09-19-2022 FOLATE 8.40 ng/mL Critically low 8.60-58.90 [facility] Comment on above: Performed By: #### C MP, CMADM #### [facility] [address] [place] [address] Dr. Kush Call MAGNESIUMon 09-19-2022 Magnesium [Mass/Vol] 1.9 mg/dL Normal 1.8-2.4 [facility] Comment on above: Performed By: #### C RP, CMP, URIC, MG #### [facility] [address] [place] [address] Dr. Kush Call PROF 14(COMP METB)on 023 Albumin [Mass/Vol] 3.8 g/dL Normal 3.4-5.0 [facility] Comment on above: Performed By: #### C RP, CMP, URIC, MG #### [facility] [address] [place] [address] Dr. Kush Call Albumin/Globulin [Mass ratio] 0.8 {ratio} Normal [facility] Comment on above: Performed By: #### C RP, CMP, URIC, MG #### [facility] [address] [place] [address] Dr. Kush Call ALP [Catalytic activity/Vol] 120 U/L Critically high 46-116 [facility] Comment on above: Performed By: #### C RP, CMP, URIC, MG #### [facility] [address] [place] [address] Dr. Kush Call ALT [Catalytic activity/Vol] 67 U/L Critically high 14-59 [facility] Comment on above: Performed By: #### C RP, CMP, URIC, MG #### [facility] [address] [place] [address] Dr. Kush Call Anion gap [Moles/Vol] 18.9 mmol/L Normal [facility] Comment on above: Performed By: #### C RP, CMP, URIC, MG #### [facility] [address] [place] [address] Dr. Kush Call AST [Catalytic activity/Vol] 68 U/L Critically high 15-37 [facility] Comment on above: Performed By: #### C RP, CMP, URIC, MG #### [facility] [address] [place] [address] Dr. Kush Call Bilirubin [Mass/Vol] 0.9 mg/dL Normal 0.2-1.0 [facility] Comment on above: Performed By: #### C RP, CMP, URIC, MG #### [facility] [address] [place] [address] Dr. Kush Call Calcium [Mass/Vol] 9.8 mg/dL Normal 8.5-10.1 [facility] Comment on above: Performed By: #### C RP, CMP, URIC, MG #### [facility] [address] [place] [address] Dr. Kush Call Chloride [Moles/Vol] 102 mmol/L Normal 98-107 [facility] Comment on above: Performed By: #### C RP, CMP, URIC, MG #### [facility] [address] [place] [address] Dr. Kush Call CO2 [Moles/Vol] 20.6 mmol/L Critically low 21.0-32.0 [facility] Comment on above: Performed By: #### C RP, CMP, URIC, MG #### [facility] [address] [place] [address] Dr. Kush Call Creatinine [Mass/Vol] 0.49 mg/dL Critically low 0.55-1.02 [facility] Comment on above: Performed By: #### C RP, CMP, URIC, MG #### [facility] [address] [place] [address] Dr. Kush Call EGFR-AF NIGERIAN >60 Normal >=60 [facility] Comment on above: Performed By: #### C RP, CMP, URIC, MG #### [facility] [address] [place] [address] Dr. Kush Call EGFR-NON AF NIGERIAN >60 Normal >=60 [facility] Comment on above: Performed By: #### C RP, CMP, URIC, MG #### [facility] [address] [place] [address] Dr. Kush Call Globulin (S) [Mass/Vol] 4.6 g/dL Normal [facility] Comment on above: Performed By: #### C RP, CMP, URIC, MG #### [facility] [address] [place] [address] Dr. Kush Call Glucose [Mass/Vol] 174 mg/dL Critically high 74-106 [facility] Comment on above: Performed By: #### C RP, CMP, URIC, MG #### [facility] [address] [place] [address] Dr. Kush Call Potassium [Moles/Vol] 3.5 mmol/L Normal 3.5-5.1 [facility] Comment on above: Performed By: #### C RP, CMP, URIC, MG #### [facility] [address] [place] [address] Dr. Kush Call Protein [Mass/Vol] 8.4 g/dL Critically high 6.4-8.2 [facility] Comment on above: Performed By: #### C RP, CMP, URIC, MG #### [facility] [address] [place] [address] Dr. Kush Call Sodium [Moles/Vol] 138 mmol/L Normal 136-145 [facility] Comment on above: Performed By: #### C RP, CMP, URIC, MG #### [facility] [address] [place] [address] Dr. Kush Call Urea nitrogen [Mass/Vol] 5.0 mg/dL Critically low 7.0-18.0 [facility] Comment on above: Performed By: #### C RP, CMP, URIC, MG #### [facility] [address] [place] [address] [address] Kush Call Urea nitrogen/Creatinine [Mass ratio] 10.2 mg/mg Normal [facility] Comment on above: Performed By: #### C RP, CMP, URIC, MG #### [facility] [address] [place] [address] [address] Kush Call URIC ACID SERUMon 09-19-2022 Urate [Mass/Vol] 10.1 mg/dL Critically high 2.6-6.0 [facility] Comment on above: Performed By: #### C RP, CMP, URIC, MG #### [facility] [address] [place] [id number] [address] Kush Call US BREAST RIGHT LIMITEDon US BREAST RIGHT LIMITED Patient: RICA STOUT Exam Date: 09/19/2022 : 1995 Gender:F Ordering : [facility] Admission #: [id number] Family : DR MASSIMO BRIGHT . Order #: [id number] CLICK HERE TO VIEW EXAM RADIOLOGY REPORT [...] MD on 09/19/2022 at 08:59 Normal [facility] CARDIAC LOWELL ADMITon 023 CK [Catalytic activity/Vol] 68 U/L Normal 26-192 [facility] Comment on above: Performed By: #### C MP, CMADM #### [facility] [address] [place] [address] [address] Kush Call CK.MB [Mass/Vol] 141.43 ng/mL Critically high <=3.60 [facility] Comment on above: Performed By: #### C IRINA BENOIT #### [facility] [address] [place] [address] Dr. Kush Call HSTROP <4.0 Normal 4.0-51.3 [facility] Comment on above: Result Comment: CUT- OFF POINTS HAVE BEEN ESTABLISHED BASED ON THE FOURTH UNIVERSAL DEFINITIONS OF MYOCARDIAL INFARCTION. THE UPPER REFERENCE LIMIT (URL) OF TROPONIN, DEFINED THE 99TH PERCENTILE OF cTnI DISTRIBUTION IN A REFERENCE POPULATION, HAS BEEN CONFIRMED THE DECISION THRESHOLD FOR MO DIAGNOSIS. Performed By: #### C IRINA BENOIT #### [facility] [address] [place] [address] Dr. Kush Call JOANNA 57 ng/mL Normal 9-82 [facility] Comment on above: Performed By: #### C IRINA BENOIT #### [facility] [address] [place] [address] Dr. Kush Call CBC AUTO DIFFon 09-13-2022 BASO # 0.1 103/ul Normal 0.0-0.1 [facility] Comment on above: Performed By: #### C IRINA BENOIT #### [facility] [address] [place] [address] Dr. Kush Call Basophils/100 WBC (Bld) 1.4 % Normal 0.2-2.0 [facility] Comment on above: Performed By: #### C IRINA BENOIT #### [facility] [address] [place] [address] Dr. Kush Call EO # 0.1 103/ul Normal 0.0-0.7 [facility] Comment on above: Performed By: #### C IRINA BENOIT #### [facility] [address] [place] [address] Dr. Kush Call Eosinophils/100 WBC (Bld) 1.3 % Normal 0.9-7.0 [facility] Comment on above: Performed By: #### C IRINA BENOIT #### [facility] [address] [place], [place] [id number] Dr. Kush Call Erythrocyte distribution width (RBC) [Ratio] 12.7 % Normal 11.0-15.0 [facility] Comment on above: Performed By: #### C KAYCEE, XAVIERDM #### [facility] [address] [place] [address] Dr. Kush Call Hematocrit (Bld) [Volume fraction] 44.8 % Normal 36.0-48.0 [facility] Comment on above: Performed By: #### C KAYCEE, CMADM #### [facility] [address] [place] [address] Dr. Kush Call Hemoglobin (Bld) [Mass/Vol] 15.3 g/dL Normal 12.0-16.0 [facility] Comment on above: Performed By: #### C KAYCEE, CMADM #### [facility] [address] [place] [address] Dr. Kush Call IG # 0.22 10e3/ul Critically high 0.00-0.03 [facility] Comment on above: Performed By: #### C KAYCEE, CMADM #### [facility] [address] [place] [address] Dr. Kush Call IG % 2.2 % Critically high 0.0-0.5 [facility] Comment on above: Performed By: #### C KAYCEE, CMADM #### [facility] [address] [place] [address] Dr. Kush Call LYMPH # 2.7 103/ul Normal 1.2-3.8 [facility] Comment on above: Performed By: #### C KAYCEE, CMADM #### [facility] [address] [place] [address] Dr. Kush Call Lymphocytes/100 WBC (Bld) 26.6 % Normal 20.5-60.0 [facility] Comment on above: Performed By: #### C KAYCEE, CMADM #### [facility] [address] [place] [address] Dr. Kush Call MANUAL DIFF REQ NO Normal [facility] Comment on above: Performed By: #### C KAYCEE, CMADM #### [facility] [address] [place] [address] [address] Kush Call MCH (RBC) [Entitic mass] 36.4 pg Critically high 26.7-34.0 [facility] Comment on above: Performed By: #### C MP, CMADM #### [facility] [address] [place] [address] [address] Kush Call MCHC (RBC) [Mass/Vol] 34.2 g/dL Normal 29.9-35.2 [facility] Comment on above: Performed By: #### C MP, CMADM #### [facility] [address] [place] [address] Dr. Kush Call MCV (RBC) [Entitic vol] 106.7 fL Critically high 81.0-99 .0 [facility] Comment on above: Performed By: #### C MP, CMADM #### [facility] [address] [place] [address] Dr. Kush Call MONO # 0.6 103/ul Normal 0.3-0.8 [facility] Comment on above: Performed By: #### C MP, CMADM #### [facility] [address] [place] [address] [address] Kush Call Monocytes/100 WBC (Bld) 5.6 % Normal 1.7-12.0 [facility] Comment on above: Performed By: #### C MP, CMADM #### [facility] [address] [place] [address] [address] Kush Call NEUT # 6.4 103/ul Normal 1.4-6.5 [facility] Comment on above: Performed By: #### C MP, CMADM #### [facility] [address] [place] [address] Dr. Kush Call Neutrophils/100 WBC (Bld) 62.9 % Normal 43.0-75.0 [facility] Comment on above: Performed By: #### C MP, CMADM #### [facility] [address] [place] [address] Dr. Kush Call Platelet mean volume (Bld) [Entitic vol] 9.4 fL Critically low 9.5-13.5 [facility] Comment on above: Performed By: #### C MP, CMADM #### [facility] [address] [place] [address] [address] Kush Call PLT 454 103/ul Critically high 150-450 [facility] Comment on above: Performed By: #### C MP, CMADM #### [facility] [address] [place] [address] [address] Kush Call RBC 4.20 106/ul Normal 4.20-5.40 [facility] Comment on above: Performed By: #### C KAYCEE, CMADM #### [facility] [address] [place] [address] [address] Kush Call WBC 10.2 103/ul Normal 4.0-11.0 [facility] Comment on above: Performed By: #### C KAYCEE, CMADM #### [facility] [address] [place] [address] [address] HEAD WO CONon [...] by: SHENG NORMAN Date: 2022-09-13 12:29 Normal [facility] CTA CHEST WO W CONon [...] DAVID TRUONG Date: 2022-09-13 14:46 Normal [facility] D-DIMERon 09-13-2022 D-DIMER 2.94 mg/L FEU Critically high <=0.59 [facility] Comment on above: Performed By: #### C KAYCEE, CMADM #### [facility] [address] [place] [address] [address] Kush Call D-DIMER COMMENTS SEE BELOW Normal [facility] Comment on above: Result Comment: Incr [...] Performed By: #### C MP, CMADM #### [facility] [address] [address] [address] Kush Call DRUG SCREEN RAPID (URINE)on 09-13-2022 AMP Negative Normal NEGATIVE [facility] Comment on above: Performed By: #### C RP, CMP, URIC, MG #### [facility] [id number] Kush Call BAR Negative Normal NEGATIVE [facility] Comment on above: Performed By: #### C RP, CMP, URIC, MG #### [facility] [address] [address] [address] Kush Call BUP Negative Normal NEGATIVE [facility] Comment on above: Performed By: #### C RP, CMP, URIC, MG #### [facility] [address] [place] [address] Dr. Kush Call BZO Negative Normal NEGATIVE [facility] Comment on above: Performed By: #### C RP, CMP, URIC, MG #### [facility] [address] [address] [address] Kush Call BUTCH Negative Normal NEGATIVE [facility] Comment on above: Performed By: #### C RP, CMP, URIC, MG #### [facility] [address] [place] [address] Dr. Kush Call CUT-OFFS SEE BELOW Normal [facility] Comment on above: Result Comment: [...] #### C RP, CMP, URIC, MG #### [facility] [address] [place] [address] Dr. Kush Call DRUG CUT HEADER DRUG CLASS TEST SYST EM CUT-OFF CONCENTRATIONS ARE FOLLOWS: Normal [facility] Comment on above: Performed By: #### C RP, CMP, URIC, MG #### [facility] [address] [place] [address] Dr. Kush Call mAMP Negative Normal NEGATIVE [facility] Comment on above: Performed By: #### C RP, CMP, URIC, MG #### [facility] [address] [place] [address] Dr. Kush Call MTD Negative Normal NEGATIVE [facility] Comment on above: Performed By: #### C RP, CMP, URIC, MG #### [facility] [address] [place] [address] Dr. Kush Call OPI Negative Normal NEGATIVE [facility] Comment on above: Performed By: #### C RP, CMP, URIC, MG #### [facility] [address] [place] [address] Dr. Kush Call OXY Negative Normal NEGATIVE [facility] Comment on above: Performed By: #### C RP, CMP, URIC, MG #### [facility] [address] [place] [address] Dr. Kush Call PCP Negative Normal NEGATIVE [facility] Comment on above: Performed By: #### C RP, CMP, URIC, MG #### [facility] [address] [place] [address] Dr. Kush Call PPX Negative Normal NEGATIVE [facility] Comment on above: Performed By: #### C RP, CMP, URIC, MG #### [facility] [address] [place] [address] Dr. Kush Call TCA Negative Normal NEGATIVE [facility] Comment on above: Performed By: #### C RP, CMP, URIC, MG #### [facility] [address] [place] [address] Dr. Kush Call THC Negative Normal NEGATIVE [facility] Comment on above: Performed By: #### C RP, CMP, URIC, MG #### [facility] [address] [place] [address] Dr. Kush Call ER URINE PROFILEon 3 Bilirubin Ql (U) Negative Normal NEGATIVE [facility] Comment on above: Performed By: #### C RP, CMP, URIC, MG #### [facility] [address] [place] [address] Dr. Kush Call Clarity (U) CLEAR Normal CLEAR [facility] Comment on above: Performed By: #### C RP, CMP, URIC, MG #### [facility] [address] [place] [address] Dr. Kush Call Color (U) LT. YELLOW Normal YELLOW [facility] Comment on above: Performed By: #### C RP, CMP, URIC, MG #### [facility] [address] [place] [address] Dr. Kush Call ERUAHD A micrscopic examina tion will be performed if indicated. Normal [facility] Comment on above: Performed By: #### C RP, CMP, URIC, MG #### [facility] [address] [place] [address] Dr. Kush Call Glucose Ql (U) Negative Normal NEGATIVE [facility] Comment on above: Performed By: #### C RP, CMP, URIC, MG #### [facility] [address] [place] [address] Dr. Kush Call Hemoglobin Ql (U) Negative Normal NEGATIVE [facility] Comment on above: Performed By: #### C RP, CMP, URIC, MG #### [facility] [address] [place] [address] Dr. Kush Call Ketones Ql (U) Negative Normal NEGATIVE [facility] Comment on above: Performed By: #### C RP, CMP, URIC, MG #### [facility] [address] [place] [address] Dr. Kush Call LEUKOCYTES Negative Normal NEGATIVE [facility] Comment on above: Performed By: #### C RP, CMP, URIC, MG #### [facility] [address] [place] [address] Dr. Kush Call Nitrite Ql (U) Negative Normal NEGATIVE [facility] Comment on above: Performed By: #### C RP, CMP, URIC, MG #### [facility] [address] [place] [address] Dr. Kush Call pH (U) 5.5 [pH] Normal 5-9 [facility] Comment on above: Performed By: #### C RP, CMP, URIC, MG #### [facility] [address] [place] [address] Dr. Kush Call SPEC GRAVITY <=1.005 Abnormal 1.005-<=1.02 5 [facility] Comment on above: Performed By: #### C RP, CMP, URIC, MG #### [facility] [address] [place] [address] Dr. Kush Call UA PROTEIN Negative Normal NEGATIVE/ TRACE [facility] Comment on above: Performed By: #### C RP, CMP, URIC, MG #### [facility] [address] [place] [address] Dr. Kush Call UR MICRO IND NOT INDICATED Normal [facility] Comment on above: Performed By: #### C RP, CMP, URIC, MG #### [facility] [address] [place] [address] Dr. Kush Call Urobilinogen Qn (U) 0.2 {Kirit'U}/dL Normal 0.2 - 1. 0 [facility] Comment on above: Performed By: #### C RP, CMP, URIC, MG #### [facility] [address] [place] [address] Dr. Kush Call LACTATE/LACTIC ACIDon 2022 Lactate [Moles/Vol] 3.0 mmol/L Critically high 0.4-1.9 [facility] Comment on above: Performed By: #### C RP, CMP, URIC, MG #### [facility] [address] [place] [address] Dr. Kush Call Lactate [Moles/Vol] 3.5 mmol/L Critically high 0.4-1.9 [facility] Comment on above: Performed By: #### C RP, CMP, URIC, MG #### [facility] [address] [place] [address] Dr. Kush Call PROF 14(COMP METB)on 023 Albumin [Mass/Vol] 3.3 g/dL Critically low 3.4-5.0 Th e [facility] Comment on above: Performed By: #### C MP, CMADM #### [facility] [address] [place] [address] Dr. Kush Call Albumin/Globulin [Mass ratio] 0.8 {ratio} Normal [facility] Comment on above: Performed By: #### C MP, CMADM #### [facility] [address] [address] [address] Kush Call ALP [Catalytic activity/Vol] 111 U/L Normal 46-116 [facility] Comment on above: Performed By: #### C MP, CMADM #### [facility] [address] [address] [address] Kush Call ALT [Catalytic activity/Vol] 63 U/L Critically high 14-59 [facility] Comment on above: Performed By: #### C MP, CMADM #### [facility] [address] [address] [address] Kush Call Anion gap [Moles/Vol] 20.5 mmol/L Normal [facility] Comment on above: Performed By: #### C MP, CMADM #### [facility] [address] [address] [address] Kush Call AST [Catalytic activity/Vol] 64 U/L Critically high 15-37 [facility] Comment on above: Performed By: #### C KAYCEE, CMADM #### [facility] [address] [address] [address] Kush Call Bilirubin [Mass/Vol] 0.5 mg/dL Normal 0.2-1.0 [facility] Comment on above: Performed By: #### C KAYCEE, CMADM #### [facility] [address] [address] [address] Kush Call Calcium [Mass/Vol] 9.4 mg/dL Normal 8.5-10.1 [facility] Comment on above: Performed By: #### C MP, CMADM #### [facility] [address] [address] [address] Kush Call Chloride [Moles/Vol] 101 mmol/L Normal 98-107 [facility] Comment on above: Performed By: #### C KAYCEE, CMADM #### [facility] [address] [address] [address] Kush Call CO2 [Moles/Vol] 19.8 mmol/L Critically low 21.0-32.0 [facility] Comment on above: Performed By: #### C MP, CMADM #### [facility] [address] [address] [address] Kush Call Creatinine [Mass/Vol] 0.50 mg/dL Critically low 0.55-1.02 [facility] Comment on above: Performed By: #### C MP, CMADM #### [facility] [address] [address] [address] Kush Call EGFR-AF NIGERIAN >60 Normal >=60 [facility] Comment on above: Performed By: #### C MP, CMADM #### [facility] [address] [place] [address] Dr. Kush Call EGFR-NON AF NIGERIAN >60 Normal >=60 [facility] Comment on above: Performed By: #### C MP, CMADM #### [facility] [address] [address] [address] Kush Call Globulin (S) [Mass/Vol] 4.1 g/dL Normal [facility] Comment on above: Performed By: #### C MP, CMADM #### [facility] [address] [place] [address] Dr. Kush Call Glucose [Mass/Vol] 112 mg/dL Critically high 74-106 [facility] Comment on above: Performed By: #### C MP, CMADM #### [facility] [address] [address] [address] Kush Call Potassium [Moles/Vol] 3.3 mmol/L Critically low 3.5-5.1 [facility] Comment on above: Performed By: #### C MP, CMADM #### [facility] [address] [place] [address] Dr. Kush Call Protein [Mass/Vol] 7.4 g/dL Normal 6.4-8.2 [facility] Comment on above: Performed By: #### C MP, CMADM #### [facility] [address] [place] [address] Dr. Kush Call Sodium [Moles/Vol] 138 mmol/L Normal 136-145 [facility] Comment on above: Performed By: #### C KAYCEE, IRINA #### [facility] [address] [place] [address] Dr. Kush Call Urea nitrogen [Mass/Vol] 2.0 mg/dL Critically low 7.0-18.0 [facility] Comment on above: Performed By: #### C KAYCEE, XAVIERDM #### [facility] [address] [place] [address] Dr. Kush Call Urea nitrogen/Creatinine [Mass ratio] 4.0 mg/mg Normal [facility] Comment on above: Performed By: #### C IRINA BENOIT #### [facility] [address] [place] [address] Dr. Kush [facility] mm/hr Critically high <=20 [facility] Comment on above: Performed By: #### T SH #### [facility] [address] [place] [address] Dr. Kush Call TSHon 09-13-2022 TSH 2.552 uIU/mL Normal 0.358-3.740 [facility] Comment on above: Performed By: #### T SH #### [facility] [address] [place] [address] Dr. Kush Call VIT B12 AND FOLATEon 023 Cobalamin (Vitamin B12) [Mass/Vol] 700.0 pg/mL Normal 193.0-986.0 [facility] Comment on above: Performed By: #### C RP, CMP, URIC, MG #### [facility] [address] [place] [address] Dr. Kush Call FOLATE 1.60 ng/mL Critically low 8.60-58.90 [facility] Comment on above: Performed By: #### C RP, CMP, URIC, MG #### [facility] [address] [place] [address] Dr. Ksuh Call AMYLASEon 08-30-2022 Amylase [Catalytic activity/Vol] 28 U/L Normal 25-115 [facility] Comment on above: Performed By: #### C RP, CMP, URIC, MG #### [facility] [address] [place] [address] Dr. Kush Call CBC AUTO DIFFon 08-30-2022 BASO # 0.1 103/ul Normal 0.0-0.1 [facility] Comment on above: Performed By: #### T SH #### [facility] [address] [place] [address] Dr. Kush Call Basophils/100 WBC (Bld) 0.8 % Normal 0.2-2.0 [facility] Comment on above: Performed By: #### T SH #### [facility] [address] [place] [address] Dr. Kush Call EO # 0.0 103/ul Normal 0.0-0.7 [facility] Comment on above: Performed By: #### T SH #### [facility] [address] [place] [address] Dr. Kush Call Eosinophils/100 WBC (Bld) 0.5 % Critically low 0.9-7.0 [facility] Comment on above: Performed By: #### T SH #### [facility] [address] [place] [address] Dr. Kush Call Erythrocyte distribution width (RBC) [Ratio] 12.4 % Normal 11.0-15.0 [facility] Comment on above: Performed By: #### T SH #### [facility] [address] [place] [address] Dr. Kush Call Hematocrit (Bld) [Volume fraction] 39.8 % Normal 36.0-48.0 [facility] Comment on above: Performed By: #### T SH #### [facility] [address] [place] [address] Dr. Kush Call Hemoglobin (Bld) [Mass/Vol] 14.3 g/dL Normal 12.0-16.0 [facility] Comment on above: Performed By: #### T SH #### [facility] [address] [place] [address] Dr. Kush Call IG # 0.03 10e3/ul Normal 0.00-0.03 [facility] Comment on above: Performed By: #### T SH #### [facility] [address] [place] [address] Dr. Kush Call IG % 0.5 % Normal 0.0-0.5 [facility] Comment on above: Performed By: #### T SH #### [facility] [address] [place] [address] Dr. Kush Call LYMPH # 1.2 103/ul Normal 1.2-3.8 [facility] Comment on above: Performed By: #### T SH #### [facility] [address] [place] [address] Dr. Kush Call Lymphocytes/100 WBC (Bld) 18.3 % Critically low 20.5-60.0 [facility] Comment on above: Performed By: #### T SH #### [facility] [address] [place] [address] Dr. Kush Call MANUAL DIFF REQ NO Normal [facility] Comment on above: Performed By: #### T SH #### [facility] [address] [place] [address] Dr. Kush Call MCH (RBC) [Entitic mass] 37.2 pg Critically high 26.7-34.0 [facility] Comment on above: Performed By: #### T SH #### [facility] [address] [place] [address] Dr. Kush Call MCHC (RBC) [Mass/Vol] 35.9 g/dL Critically high 29.9-35.2 [facility] Comment on above: Performed By: #### T SH #### [facility] [address] [place] [address] Dr. Kush Call MCV (RBC) [Entitic vol] 103.6 fL Critically high 81.0-99 .0 [facility] Comment on above: Performed By: #### T SH #### [facility] [address] [place] [address] Dr. Kush Call MONO # 0.4 103/ul Normal 0.3-0.8 [facility] Comment on above: Performed By: #### T SH #### [facility] [address] [place] [address] Dr. Kush Call Monocytes/100 WBC (Bld) 6.1 % Normal 1.7-12.0 [facility] Comment on above: Performed By: #### T SH #### [facility] [address] [place] [address] Dr. Kush Call NEUT # 4.7 103/ul Normal 1.4-6.5 [facility] Comment on above: Performed By: #### T SH #### [facility] [address] [place] [address] Dr. Kush Call Neutrophils/100 WBC (Bld) 73.8 % Normal 43.0-75.0 [facility] Comment on above: Performed By: #### T SH #### [facility] [address] [place] [address] Dr. Kush Call Platelet mean volume (Bld) [Entitic vol] 9.2 fL Critically low 9.5-13.5 [facility] Comment on above: Performed By: #### T SH #### [facility] [address] [place] [address] Dr. Kush Call PLT 288 103/ul Normal 150-450 [facility] Comment on above: Performed By: #### T SH #### [facility] [address] [place] [address] Dr. Kush Call RBC 3.84 106/ul Critically low 4.20-5.40 [facility] Comment on above: Performed By: #### T SH #### [facility] [address] [place] [address] Dr. Kush Call WBC 6.4 103/ul Normal 4.0-11.0 [facility] Comment on above: Performed By: #### T SH #### [facility] [address] [place] [address] Dr. Kush Call ER URINE PROFILEon 3 Bilirubin Ql (U) Negative Normal NEGATIVE [facility] Comment on above: Performed By: #### U MICRO, ERUR #### [facility] [address] [address] [address] Kush Call Clarity (U) CLEAR Normal CLEAR [facility] Comment on above: Performed By: #### U MICRO, ERUR #### [facility] [address] [address] [address] Kush Call Color (U) LT. YELLOW Normal YELLOW [facility] Comment on above: Performed By: #### U MICRO, ERUR #### [facility] [address] [address] [address] Kush Call ERUAHD A micrscopic examina tion will be performed if indicated. Normal [facility] Comment on above: Performed By: #### U MICRO, ERUR #### [facility] [address] [place] [address] Dr. Kush Call Glucose Ql (U) Negative Normal NEGATIVE [facility] Comment on above: Performed By: #### U MICRO, ERUR #### [facility] [address] [address] [address] Kush Call Hemoglobin Ql (U) Negative Normal NEGATIVE [facility] Comment on above: Performed By: #### U MICRO, ERUR #### [facility] [address] [place] [address] Dr. Kush Call Ketones Ql (U) Negative Normal NEGATIVE [facility] Comment on above: Performed By: #### U MICRO, ERUR #### [facility] [address] [address] [address] Kush Call LEUKOCYTES SMALL Abnormal NEGATIVE [facility] Comment on above: Performed By: #### U MICRO, ERUR #### [facility] [address] [address] [address] Kush Call Nitrite Ql (U) Negative Normal NEGATIVE [facility] Comment on above: Performed By: #### U MICRO, ERUR #### [facility] [address] [place] [address] Dr. Kush Call pH (U) 7.0 [pH] Normal 5-9 [facility] Comment on above: Performed By: #### U MICRO, ERUR #### [facility] [address] [place] [address] Dr. Kush Call SPEC GRAVITY <=1.005 Abnormal 1.005-<=1.02 5 [facility] Comment on above: Performed By: #### U MICRO, ERUR #### [facility] [address] [place] [address] Dr. Kush Call UA PROTEIN Negative Normal NEGATIVE/ TRACE [facility] Comment on above: Performed By: #### U MICRO, ERUR #### [facility] [address] [place] [address] Dr. Kush Call UR MICRO IND INDICATED Normal [facility] Comment on above: Performed By: #### U MICRO, ERUR #### [facility] [address] [place] [address] Dr. Kush Call Urobilinogen Qn (U) 1.0 {Kirit'U}/dL Normal 0.2 - 1. 0 [facility] Comment on above: Performed By: #### U MICRO, ERUR #### [facility] [address] [place] [address] Dr. Kush Call LIPASEon 08-30-2022 Lipase [Catalytic activity/Vol] 40.0 U/L Critically low 73.0-393.0 [facility] Comment on above: Performed By: #### C RP, CMP, URIC, MG #### [facility] [address] [place] [address] Dr. Kush Call PROF 14(COMP METB)on 023 Albumin [Mass/Vol] 3.2 g/dL Critically low 3.4-5.0 [facility] Comment on above: Performed By: #### C RP, CMP, URIC, MG #### [facility] [address] [place] [address] Dr. Kush Call Albumin/Globulin [Mass ratio] 0.9 {ratio} Normal [facility] Comment on above: Performed By: #### C RP, CMP, URIC, MG #### [facility] [address] [place] [address] Dr. Kush Call ALP [Catalytic activity/Vol] 100 U/L Normal 46-116 [facility] Comment on above: Performed By: #### C RP, CMP, URIC, MG #### [facility] [address] [place] [address] Dr. Kush Call ALT [Catalytic activity/Vol] 66 U/L Critically high 14-59 [facility] Comment on above: Performed By: #### C RP, CMP, URIC, MG #### [facility] [address] [place] [address] Dr. Kush Call Anion gap [Moles/Vol] 14.6 mmol/L Normal Th e [facility] Comment on above: Performed By: #### C RP, CMP, URIC, MG #### [facility] [address] [place] [address] Dr. Kush Call AST [Catalytic activity/Vol] 120 U/L Critically high 15-37 [facility] Comment on above: Performed By: #### C RP, CMP, URIC, MG #### [facility] [address] [place] [address] Dr. Kush Call Bilirubin [Mass/Vol] 1.1 mg/dL Critically high 0.2-1.0 [facility] Comment on above: Performed By: #### C RP, CMP, URIC, MG #### [facility] [address] [place] [address] Dr. Kush Call Calcium [Mass/Vol] 9.0 mg/dL Normal 8.5-10.1 [facility] Comment on above: Performed By: #### C RP, CMP, URIC, MG #### [facility] [address] [place] [address] Dr. Kush Call Chloride [Moles/Vol] 102 mmol/L Normal 98-107 [facility] Comment on above: Performed By: #### C RP, CMP, URIC, MG #### [facility] [address] [place] [address] Dr. Kush Call CO2 [Moles/Vol] 25.4 mmol/L Normal 21.0-32.0 [facility] Comment on above: Performed By: #### C RP, CMP, URIC, MG #### [facility] [address] [address] [address] Kush Call Creatinine [Mass/Vol] 0.62 mg/dL Normal 0.55-1.02 [facility] Comment on above: Performed By: #### C RP, CMP, URIC, MG #### [facility] [address] [address] [address] Kush Call EGFR-AF NIGERIAN >60 Normal >=60 [facility] Comment on above: Performed By: #### C RP, CMP, URIC, MG #### [facility] [address] [address] [address] Kush Call EGFR-NON AF NIGERIAN >60 Normal >=60 [facility] Comment on above: Performed By: #### C RP, CMP, URIC, MG #### [facility] [address] [place] [address] Dr. Kush Call Globulin (S) [Mass/Vol] 3.5 g/dL Normal [facility] Comment on above: Performed By: #### C RP, CMP, URIC, MG #### [facility] [address] [address] [address] Kush Call Glucose [Mass/Vol] 114 mg/dL Critically high 74-106 [facility] Comment on above: Performed By: #### C RP, CMP, URIC, MG #### [facility] [address] [address] [address] Kush Call Potassium [Moles/Vol] 3.0 mmol/L Critically low 3.5-5.1 [facility] Comment on above: Performed By: #### C RP, CMP, URIC, MG #### [facility] [address] [address] [address] Kush Call Protein [Mass/Vol] 6.7 g/dL Normal 6.4-8.2 [facility] Comment on above: Performed By: #### C RP, CMP, URIC, MG #### [facility] [address] [address] [address] Kush Call Sodium [Moles/Vol] 139 mmol/L Normal 136-145 [facility] Comment on above: Performed By: #### C RP, CMP, URIC, MG #### [facility] [address] [place] [address] Dr. Kush Call Urea nitrogen [Mass/Vol] 3.0 mg/dL Critically low 7.0-18.0 [facility] Comment on above: Performed By: #### C RP, CMP, URIC, MG #### [facility] [address] [place] [address] Dr. Kush Call Urea nitrogen/Creatinine [Mass ratio] 4.8 mg/mg Normal [facility] Comment on above: Performed By: #### C RP, CMP, URIC, MG #### [facility] [address] [place] [address] Dr. Kush Call URINE MICROSCOPIC ONLYon BACTERIA TRACE Abnormal NONE SEEN [facility] Comment on above: Performed By: #### U MICRO, ERUR #### [facility] [address] [place] [address] Dr. Kush Call Bacteria identified Cx Nom (U) NOT INDICATED Normal [facility] Comment on above: Performed By: #### U MICRO, ERUR #### [facility] [address] [place] [address] Dr. Kush Call CAST NONE SEEN Normal NONE SEEN [facility] Comment on above: Performed By: #### U MICRO, ERUR #### [facility] [address] [place] [address] Dr. Kush Call Crystals LM Nom (Urine sed) NONE SEEN Normal NONE SEEN [facility] Comment on above: Performed By: #### U MICRO, ERUR #### [facility] [address] [place] [address] Dr. Kush Call Epithelial cells LM Ql (Urine sed) RARE Normal NONE SEEN /RARE [facility] Comment on above: Performed By: #### U MICRO, ERUR #### [facility] [address] [place] [address] Dr. Kush Call MUCOUS NONE SEEN Normal NONE SEEN [facility] Comment on above: Performed By: #### U MICRO, ERUR #### [facility] [address] [address] [address] Kush Call RBC 0-2 Normal 0-2 [facility] Comment on above: Performed By: #### U MICRO, ERUR #### [facility] [address] [place] [address] Dr. Kush Call WBC 0-2 Abnormal NONE SEEN [facility] Comment on above: Performed By: #### U MICRO, ERUR #### [facility] [address] [address] [address] Kush Call CHLAMYDIA/GONOCOCCUS OKSANA ( AB/URINE/PAPon 08-25-2022 Chlamydia trachomatis, OKSANA Negative Normal Negative [facility] Comment on above: Performed By: #### C T/NGNA #### [facility] [address] [place] [address] Dr. Kush Call Neisseria gonorrhoeae, OKSANA Negative Normal Negative [facility] Comment on above: Performed By: #### C T/NGNA #### [facility] [address] [place] [address] Dr. Kush Call CULTURE URINEon 08-25-2022 CULTURE [...] Trimethoprim/Sulfamethox azole <=20 S F Normal [facility] Comment on above: Performed By: #### C MP, CMADM #### [facility] [address] [place] [address] Dr. Kush Call VAGINITIS/VAGINOSIS DNA PROB Wander 08-24-2022 Tiffany species Positive Abnormal Negative [facility] Comment on above: Performed By: #### C MP, CMADM #### [facility] [address] [address] [address] Kush Call Gardnerella vaginalis Positive Abnormal Negative [facility] Comment on above: Performed By: #### C MP, CMADM #### [facility] [address] [address] [address] Kush Call Trichomonas vaginalis Negative Normal Negative [facility] Comment on above: Performed By: #### C MP, CMADM #### [facility] [address] [address] [address] Kush Call ECHOCARDIO M/2D COMPLETEon 0 11-06-2021 ECHOCARDIO M/2D COMPLETE Patient: RICA STOUT Exam Date: 11/06/2021 : 1995 Gender:F Ordering : KLARISSA CHAMBERS Admission #: [id number] Family : DANUTA [facility]RAUJO [facility] Order #: [id number] CLICK HERE TO VIEW EXAM ECHOCARDIOGRAM REPORT [...] Wilkinson M.D. on 11/06/2021 at 15:53 Normal [facility] Hepatitis Acute [facility] 11-11 Hep A Ab,IgM Non-Reactive Normal [facility] Comment on above: Performed By: #### L IVP #### [facility] [address] [place] [address] Ivory Carver: Karyna Silva MD #### PHEP #### [address] [place] [address] Ivory Carver: Leonardo Sánchez MD Hep B Core Ab,IgM Non-Reactive Normal [facility] Comment on above: Performed By: #### L IVP #### [address] [place], [place] [address] Ivory Carver: Karyna Silva MD #### PHEP #### [address] [place], [place] 15[address] Ivory Carver: Leonardo Sánchez MD Hep B Surf Ag Non-Reactive Normal NR [facility] Comment on above: Performed By: #### L IVP #### [address] [place], [place] [id number] Ivory Carver: Karyna Silva MD #### PHEP #### [address] [address] Ivory Carver: Leonardo Sánchez MD Hep C Ab Non-Reactive Normal [facility] Comment on above: Result Comment: The hepatitis [...] PCR. Performed By: #### L IVP #### [address] [place], [place] [id number] Ivory Carver: Karyna Silva MD #### PHEP #### [address] [address] Ivory Carver: Leonardo Sánchez MD HCG, Quanton 11-10-2020 HCG, Quant <1 Normal <5 [facility] Comment on above: Result Comment: Non-preg premeno <=5 Postmeno <=8 Male <=3 If HCG results do not concur with clinical observations, additional testing to confirm results is recommended. Elevated results not associated with may be found in patients with other diseases such as tumors of the germ cells (testis, ovaries, etc.), bladder, pancreas, stomach, lungs, and liver. Performed By: #### B HCG #### [facility] [address] [place] [address] Ivory Carver: Karyna Silva MD HCG, Quantitative, Ordered By: Massimo Bright on 11-10-2020 hCG Quant <1 <5 IU/L [employer] Phone: Comment on above: Non-preg premeno <=5 [...] [Mass/Vol] 4.6 g/dL 3.5 - 5.2 g/dL [employer] Phone: Albumin/Globulin [Mass ratio] 1.5 {ratio} [employer] Phone: ALP (Bld) [Catalytic activity/Vol] 95 U/L 35 - 104 U/L [employer] Phone: ALT [Catalytic activity/Vol] 54 U/L High 5 - 33 U/L [employer] Phone: AST [Catalytic activity/Vol] 62 U/L High <32 [employer] Phone: Bilirubin [Mass/Vol] 0.93 mg/dL 0.3 - 1 .2 mg/dL [employer] Phone: Bilirubin, Indirect 0.72 mg/dL 0.00 - 1 .00 mg/dL [employer] Phone: Bilirubin.indirect [Mass/Vol] 0.21 mg/dL <0.31 [employer] Phone: Free PSA/Total PSA [Mass fraction] 7.6 g/dL 6.4 - 8.3 g/dL [employer] Phone: Globulin NOT REPORTED 1.5 - 3.8 g/dL [employer] Phone: Interpretation and review of laboratory results Abnormal [employer] Phone: Hepatitis Panel, AcuteOrdere d By: Inocencio Bender on 11-10-2020 HAV IgM IA Qn (S) Non-Reactive NONREACTIVE [employer] Phone: Hep B Core Ab, IgM Non-Reactive NONREACTIVE [employer] Phone: Hepatitis B Surface Ag Non-Reactive NONREACTIVE [employer] Phone: Hepatitis C Ab Non-Reactive NONREACTIVE [facility] Phone: Comment on above: The hepatitis C [...] 11-10-2020 Albumin [Mass/Vol] 4.6 g/dL Normal 3.5-5.2 [facility] Comment on above: Performed By: #### L IVP #### [facility] [address] [place] [address] [place] [address] Ivory Carver: Karyna Silva MD #### PHEP #### [facility] [place], [place] [address] Ivory Carver: Leonardo Sánchez MD Albumin/Glob Ratio 1.5 Normal 1.0-2.5 [facility] Comment on above: Performed By: #### L IVP #### [facility] [address] [place] [address] [place] [address] Ivory Carver: Karyna Silva MD #### PHEP #### [facility] [place], [place] 5077[address] Ivory Carver: Leonardo Sánchez MD Alkaline Phos 95 U/L Normal 35-104 [facility] Comment on above: Performed By: #### L IVP #### [facility] [address] [place], [place] [id number] Ivory Carver: Karyna Silva MD #### PHEP #### [address] [address] Ivory Carver: Leonardo Sánchez MD ALT [Catalytic activity/Vol] 54 U/L High 5-33 [facility] Comment on above: Performed By: #### L IVP #### [facility] [address] [place], [place] [address] Ivory Carver: Karyna Silva MD #### PHEP #### [address] [id number] Ivory Carver: Leonardo Sánchez MD AST [Catalytic activity/Vol] 62 U/L High <32 [facility] Comment on above: Performed By: #### L IVP #### [facility] [address] [place], [facility] Ivory Carver: Karyna Silva MD #### PHEP #### [address] [address] Ivory Carver: Leonardo Sánchez MD Bilirubin [Mass/Vol] 0.93 mg/dL Normal 0.3-1.2 [facility] Comment on above: Performed By: #### L IVP #### [facility] [address] [place], [place] [address] Ivory Carver: Karyna Silva MD #### PHEP #### [address] [address] Ivory Carver: Leonardo Sánchez MD Bilirubin, Indirect 0.72 mg/dL Normal 0.00-1.00 [facility] Comment on above: Performed By: #### L IVP #### [facility] [address] [place] [address] Dr. [place], [place] 1040483 Ivory Carver: Karyna Silva MD #### PHEP #### [address] [id number] Ivory Carver: Leonardo Sánchez MD Bilirubin.indirect [Mass/Vol] 0.21 mg/dL Normal <0.31 [facility] Comment on above: Performed By: #### L IVP #### [facility] [address] [place] [address] Dr. [place], [place] 7[address]83 Ivory Carver: Karyna Silva MD #### PHEP #### [address] [address] Ivory Carver: Leonardo Sánchez MD Protein [Mass/Vol] 7.6 g/dL Normal 6.4-8.3 [facility] Comment on above: Performed By: #### L IVP #### [address] [place], [place] 266[address]83 Ivory Carver: Karyna Silva MD #### PHEP #### [address] [address] Ivory Carver: Leonardo Sánchez MD Globulin Fraction NOT REPORTED Normal 1.5-3.8 [facility] Comment on above: Performed By: #### L IVP #### [address] [place] [address] Ivory Carver: Karyna Silva MD #### PHEP #### [address] [address] Ivory Carver: Leonardo Sánchez MD CBCon 04-06-2020 Erythrocyte distribution width (RBC) [Ratio] 11.8 % Normal 11.8-14.4 [facility] Comment on above: Performed By: #### C P, CBC #### [facility] [address] [place] [address] [address] [id number] Ivory Carver: Amilcar Wing MD #### HIVCMB #### [address] [place], [place] 7077308 Ivory Carver: Leonardo Sánchez MD Hematocrit (Bld) [Volume fraction] 43.4 % Normal 36.3-47.1 [facility] Comment on above: Performed By: #### C P, CBC #### [address] [place] [id number] Ivory Carver: Amilcar Wing MD #### HIVCMB #### [address] [id number] Ivory Carver: Leonardo Sánchez MD Hemoglobin (Bld) [Mass/Vol] 14.4 g/dL Normal 11.9-15.1 [facility] Comment on above: Performed By: #### C P, CBC #### [address] [place] [id number] Ivory Carver: Amilcar Wing MD #### HIVCMB #### [address] [address] Ivory Carver: Leonardo Sánchez MD MCH (RBC) [Entitic mass] 33.0 pg Normal 25.2-33.5 [facility] Comment on above: Performed By: #### C P, CBC #### [facility] [address] [place] [address] [address] [phone] Ivory Carver: Amilcar Wing MD #### HIVCMB #### [address] [id number] Ivory Carver: Leonardo Sánchez MD MCHC (RBC) [Mass/Vol] 33.2 g/dL Normal 28.4-34.8 [facility] Comment on above: Performed By: #### C P, CBC #### [facility] [address] [place] [address] [place] [address] Ivory Carver: Amilcar Wing MD #### HIVCMB #### [address] [id number] Ivory Carver: Leonardo Sáncehz MD MCV (RBC) [Entitic vol] 99.3 fL Normal 82.6-102.9 [facility] Comment on above: Performed By: #### C P, CBC #### [facility] [address] [place] [address] Dr[address] [place] [phone] Ivory Carver: Amilcar Wing MD #### HIVCMB #### [address] [id number] Ivory Carver: Leonardo Sánchez MD NRBC Automated 0.0 per 100 WBC Normal 0.0 [facility] Comment on above: Performed By: #### C P, CBC #### [address] [place] [address] Ivory Carver: Amilcar Wing MD #### HIVCMB #### [place] [address] Ivory Carver: Leonardo Sánchez MD Platelet mean volume (Bld) [Entitic vol] 9.4 fL Normal 8.1-13.5 [facility] Comment on above: Performed By: #### C P, CBC #### [address] [place] [address] Ivory Carver: Amilcar Wing MD #### HIVCMB #### [place] [address] Ivory Carver: Lenoardo Sánchez MD Platelets (Bld) [#/Vol] 238 10*3/uL Normal 138-453 [facility] Comment on above: Performed By: #### C P, CBC #### [address] [place] [id number] Ivory Carver: Amilcar Wing MD #### HIVCMB #### [facility] [address] [place], [place] [address] Ivory Carver: Leonardo Sánchez MD RBC (Bld) [#/Vol] 4.37 10*6/uL Normal 3.95-5.11 [facility] Comment on above: Performed By: #### C P, CBC #### [facility] [address] [place] [address] [place] [address] Ivory Carver: Amilcar Wing MD #### HIVCMB #### [address] [place], [place] [address] Ivory Carver: Leonardo Sánchez MD WBC (Bld) [#/Vol] 7.5 10*3/uL Normal 3.5-11.3 [facility] Comment on above: Performed By: #### C P, CBC #### [address] [place] [address] Ivory Carver: Amilcar Wing MD #### HIVCMB #### [address] [place] [address] Ivory Carver: Leonardo Sánchez MD Erythrocyte distribution width (RBC) [Ratio] 11.8 % 11.8 - 14.4 % [place] Hematocrit (Bld) [Volume fraction] 43.4 % 36.3 - 47.1 % [place] Hemoglobin (Bld) [Mass/Vol] 14.4 g/dL 11.9 - 15.1 g/dL [place] MCH (RBC) [Entitic mass] 33.0 pg 25.2 - 33.5 pg [place] MCHC (RBC) [Mass/Vol] 33.2 g/dL 28.4 - 34.8 g/dL [place] MCV (RBC) [Entitic vol] 99.3 fL 82.6 - 102.9 fL [place] Platelet mean volume (Bld) [Entitic vol] 9.4 fL 8.1 - 13.5 fL [place] Platelets (Bld) [#/Vol] 238 10*3/uL [place] RBC (Bld) [#/Vol] 4.37 10*6/uL 3.95 - 5.1 1 m/uL [place] WBC (Bld) [#/Vol] 7.5 10*3/uL [place] WBC (Bld) [#/Vol] 0.0 10*3/uL 0.0 per 10 0 WBC [place] Comp Metabolic Profon 2019 (cont.) Normal [facility] Comment on above: Result Comment: Aver age GFR for 20-29 years old: 116 mL/min/1.73sq m Chronic Kidney Disease: <60 mL/min/1.73sq m Kidney failure: <15 mL/min/1.73sq m eGFR calculated using average adult body mass. Additional eGFR calculator available at: http://www.[employer]/multiple_crcl_2011.htm Performed By: #### C P, CBC #### [address] [place] [address] Ivory Carver: Amilcar iWng MD #### HIVCMB #### [address] [id number] Ivory Carver: Leonardo Sánchez MD Albumin [Mass/Vol] 4.3 g/dL Normal 3.5-5.2 [facility] Comment on above: Performed By: #### C P, CBC #### [address] [place] [address] Ivory Carver: Amilcar Wing MD #### HIVCMB #### [address] [place], [place] 6247[address] Ivory Carver: Leonardo Sánchez MD Albumin/Glob Ratio 1.5 Normal 1.0-2.5 [facility] Comment on above: Performed By: #### C P, CBC #### [address] [place], [place] 667[address]83 Ivory Carver: Amilcar Wing MD #### HIVCMB #### [address] [address] Ivory Carver: Leonardo Sánchez MD Alkaline Phos 68 U/L Normal 35-104 [facility] Comment on above: Performed By: #### C P, CBC #### [facility] [address] [place], [place] [phone] Ivory Carver: Amilcar Wing MD #### HIVCMB #### [address] [address] Ivory Carver: Leonardo Sánchez MD ALT [Catalytic activity/Vol] 48 U/L High 5-33 [facility] Comment on above: Performed By: #### C P, CBC #### [facility] [address] [place] [address] Dr[address] [place] [phone] Ivory Carver: Amilcar Wing MD #### HIVCMB #### [address] [address] Ivory Carver: Leonardo Sánchez MD Anion gap [Moles/Vol] 10 mmol/L Normal 9-17 [facility] Comment on above: Performed By: #### C P, CBC #### [facility] [address] [place], [place] [address]83 Ivory Carver: Amilcar Wing MD #### HIVCMB #### [address] [address] Ivory Carver: Leonardo Sánchez MD AST [Catalytic activity/Vol] 30 U/L Normal <32 [facility] Comment on above: Performed By: #### C P, CBC #### [facility] [address] [place] [address] Ivory Carver: Amilcar Wing MD #### HIVCMB #### [address] [id number] Ivory Carver: Leonardo Sánchez MD Bilirubin [Mass/Vol] 0.89 mg/dL Normal 0.3-1.2 [facility] Comment on above: Performed By: #### C P, CBC #### [facility] [address] [place], [place] 3[address] Ivory Carver: Amilcar Wing MD #### HIVCMB #### [address] [address] Ivory Carver: Leonardo Sánchez MD BUN/CRE Ratio 10 Normal 9-20 [facility] Comment on above: Performed By: #### C P, CBC #### [address] [place], [place] 479[address]83 Ivory Carver: Amilcar Wing MD #### HIVCMB #### [address] [address] Ivory Carver: Leonardo Sánchez MD Calcium [Mass/Vol] 9.5 mg/dL Normal 8.6-10.4 [facility] Comment on above: Performed By: #### C P, CBC #### [address] [place], [place] [address] Ivory Carver: Amilcar Wing MD #### HIVCMB #### [address] [address] Ivory Carver: Leonardo Sánchez MD Chloride [Moles/Vol] 103 mmol/L Normal 98-107 [facility] Comment on above: Performed By: #### C P, CBC #### [address] [place], [place] 529[address]83 Ivory Carver: Amilcar Wing MD #### HIVCMB #### [address] [address] Ivory Carver: Leonardo Sánchez MD CO2 [Moles/Vol] 22 mmol/L Normal 20-31 [facility] Comment on above: Performed By: #### C P, CBC #### [facility] [address] [place], [place] 1540783 Ivory Carver: Amilcar Wing MD #### HIVCMB #### [address] [address] Ivory Carver: Leonardo Sánchez MD Creatinine [Mass/Vol] 0.69 mg/dL Normal 0.50-0.90 [facility] Comment on above: Performed By: #### C P, CBC #### [facility] [address] [place], [place] [phone] Ivory Carver: Amilcar Wing MD #### HIVCMB #### [address] [address] Ivory Carver: Leonardo Sánchez MD GFR, Amer >60 Normal >60 [facility] Comment on above: Performed By: #### C P, CBC #### [facility] [address] [place] [address] Dr. [place], [place] 2553783 Ivory Carver: Amilcar Wing MD #### HIVCMB #### [address] [address] Ivory Carver: Leonardo Sánchez MD GFR,non Amer >60 Normal >60 [facility] Comment on above: Performed By: #### C P, CBC #### [facility] [address] [place] [address] Ivory Carver: Amilcar Wing MD #### HIVCMB #### [address] [address] Ivory Carver: Leonardo Sánchez MD Glucose [Mass/Vol] 106 mg/dL High 70-99 [facility] Comment on above: Performed By: #### C P, CBC #### [facility] [address] [place] [phone] Ivory Carver: Amilcar Wing MD #### HIVCMB #### [address] [phone] Ivory Carver: Leonardo Sánchez MD Potassium [Moles/Vol] 4.3 mmol/L Normal 3.7-5.3 [facility] Comment on above: Performed By: #### C P, CBC #### [facility] [address] [place] [address] [address] [phone] Ivory Carver: Amilcar Wing MD #### HIVCMB #### [address] [id number] Ivory Carver: Leonardo Sánchez MD Protein [Mass/Vol] 7.1 g/dL Normal 6.4-8.3 [facility] Comment on above: Performed By: #### C P, CBC #### [facility] [address] [place] [address] [address] [place] [phone] Ivory Carver: Amilcar Wing MD #### HIVCMB #### [address] [address] Ivory Carver: Leonardo Sánchez MD Sodium [Moles/Vol] 135 mmol/L Normal 135-144 [facility] Comment on above: Performed By: #### C P, CBC #### [address] [place] [phone] Ivory Carver: Amilcar Wing MD #### HIVCMB #### [address] [phone] Ivory Carver: Leonardo Sánchez MD Staging: Normal [facility] Comment on above: Result Comment: Stag e 1: Some kidney damage normal GFR Stage 2: Mild kidney damage GFR 60-89 Stage 3: Moderate kidney damage GFR 30-59 Stage 4: Severe kidney damage GFR 15-29 Stage 5: Severe kidney damage GFR <15 ESRD - chronic treatment by dialysis or transplant Performed By: #### C P, CBC #### [facility] [address] [place], [place] [address] Ivory Carver: Amilcar Wing MD #### HIVCMB #### [facility] [address] [place], [place] [phone] Ivory Carver: Leonardo Sánchez MD Urea nitrogen [Mass/Vol] 7 mg/dL Normal 6-20 [facility] Comment on above: Performed By: #### C P, CBC #### [facility] [address] [place], [place] [id number] Ivory Carver: Amilcar Wing MD #### HIVCMB #### [facility] [address], [place] [id number] Ivory Carver: Leonardo Sánchez MD Comprehensive Metabolic Pane [facility] 04-06-2020 Albumin [Mass/Vol] 4.3 g/dL 3.5 - 5.2 g/dL [place] Albumin/Globulin [Mass ratio] 1.5 {ratio} [place] ALP [Catalytic activity/Vol] 68 U/L 35 - 104 U/L [place] ALT [Catalytic activity/Vol] 48 U/L High 5 - 33 U/L [place] Anion gap [Moles/Vol] 10 mmol/L 9 - 17 mmol/L [place] AST [Catalytic activity/Vol] 30 U/L <32 [place] Bilirubin Ql (U) 0.89 mg/dL 0.3 - 1.2 mg/dL [place] Bun/Cre Ratio 10 [place] Calcium [Mass/Vol] 9.5 mg/dL 8.6 - 10. 4 mg/dL [place] Chloride [Moles/Vol] 103 mmol/L 98 - 10 7 mmol/L [place] CO2 [Moles/Vol] 22 mmol/L 20 - 31 mmol/L [place] Creatinine [Mass/Vol] 0.69 mg/dL 0.5 - 0.9 mg/dL [place] GFR >60 >60 mL/min [place] GFR Non- >60 >60 mL/min [place] Glucose [Mass/Vol] 106 mg/dL High 70 - 99 mg/dL [place] Interpretation and review of laboratory results Abnormal [place] Potassium [Moles/Vol] 4.3 mmol/L 3.7 - 5.3 mmol/L [place] Protein [Mass/Vol] 7.1 g/dL 6.4 - 8.3 g/dL [place] Sodium [Moles/Vol] 135 mmol/L 135 - 144 mmol/L [place] Urea nitrogen [Mass/Vol] 7 mg/dL 6 - 20 mg/dL [place] HIV Ag/Abon 04-06-2020 HIV Ag/Ab Non-Reactive Normal NR [facility] Comment on above: Result Comment: No l aboratory evidence of HIV infection. If acute HIV infection is suspected, consider testing for HIV-1 RNA. Performed By: #### C P, CBC #### [facility] [address] [place] [address] Ivory Carver: Amilcar Wing MD #### HIVCMB #### [facility] [address] [place] [address] Ivory Carver: Leonardo Sánchez MD HIV Screenon 04-06-2020 HIV Ag/Ab NONREACTIVE NONREACTIVE [place] Comment on above: No laboratory eviden ce of HIV infection. If acute HIV infection is suspected, consider testing for HIV-1 RNA. Metabolic Panelon 04-06-2020 GFR/1.73 sq M predicted among non-blacks MDRD (S/P/Bld) [Vol rate/Area] [place] Comment on above: Stage 1: Some [...] body mass. Additional eGFR calculator available at: http://www.[employer].Optisort/multiple_crcl_2012.htm Vital Signs Date Time Vital Sign Value Performing Clinician Emmett betts 11-13-2023 09:48-0400 Body temperature 97.2 [degF] ROCK WORKER[employer]C Danuta Swati Work Phone: [facility] 11-13-2023 09:48-0400 Body weight 71.66 kg [employer]OCK WORKER-C Danuta Swati Work Phone: [facility] 11-13-2023 09:48-0400 Diastolic blood pressure 64 mm[Hg] ROCK WORKER[employer]C Danuta Swati Work Phone: [facility] 11-13-2023 09:48-0400 Heart rate 99 /min [employer]OCK WORKER[employer]C Danuta Swati Work Phone: [facility] 11-13-2023 09:48-0400 Respiratory rate 16 /min [employer]OCK WORKER[employer]C Danuta Swati Work Phone: [facility] 11-13-2023 09:48-0400 SaO2% (BldA) [Mass fraction] 99 % [employer]OCK WORKER[employer]C Danuta Swati Work Phone: [facility] 11-13-2023 09:48-0400 Systolic blood pressure 105 mm[Hg] ROCK WORKER-C Danuta Swati Work Phone: [facility] 08-01-2023 15:00-0500 Diastolic blood pressure 74 mm[Hg] Maddie Lopez MD Work Phone: [facility] 08-01-2023 15:00-0500 Heart rate 88 /min Maddie Lopez MD Work Phone: [facility] 08-01-2023 15:00-0500 Systolic blood pressure 122 mm[Hg] Maddie Lopez MD Work Phone: [facility] 08-01-2023 14:59-0500 Body height 160 cm Maddie Lopez MD Work Phone: [facility] 08-01-2023 14:59-0500 Body mass index (BMI) [Ratio] 24.23 kg/m2 Maddie Lopez MD Work Phone: [facility] 08-01-2023 14:59-0500 Body weight 62.05 kg Maddie Lopez MD Work Phone: [facility] 08-01-2023 14:59-0500 Respiratory rate 18 /min Maddie Lopez MD Work Phone: [facility] 07-03-2023 09:02-0500 Body temperature 97.1 [degF] ROCK WORKER-C Danuta Swati Work Phone: [facility] 07-03-2023 09:02-0500 Body weight 63.04 kg ROCK WORKER-C Danuta Swati Work Phone: [facility] 07-03-2023 09:02-0500 Diastolic blood pressure 81 mm[Hg] ROCK WORKER-C Danuta Swati Work Phone: [facility] 07-03-2023 09:02-0500 Heart rate 111 /min ROCK WORKER-C Danuta Swati Work Phone: [facility] 07-03-2023 09:02-0500 Respiratory rate 16 /min ROCK WORKER-C Danuta Swati Work Phone: [facility] 07-03-2023 09:02-0500 SaO2% (BldA) [Mass fraction] 99 % [employer]OCK WORKER[employer]C Danuta Swati Work Phone: [facility] 07-03-2023 09:02-0500 Systolic blood pressure 120 mm[Hg] ROCK WORKER-C Danuta Swati Work Phone: [facility] 06-12-2023 10:40-0500 Diastolic blood pressure 79 mm[Hg] ROCK WORKER-C Danuta Swati Work Phone: [facility] 06-12-2023 10:40-0500 Heart rate 102 /min ROCK WORKER-C Danuta Swati Work Phone: [facility] 06-12-2023 10:40-0500 Respiratory rate 20 /min ROCK WORKER[employer]C Danuta Swati Work Phone: [facility] 06-12-2023 10:40-0500 SaO2% (BldA) [Mass fraction] 98 % ROCK WORKER-C Danuta Swati Work Phone: [facility] 06-12-2023 10:40-0500 Systolic blood pressure 116 mm[Hg] ROCK WORKER-C Danuta Swati Work Phone: [facility] 06-12-2023 09:21-0500 Body height 162.56 cm ROCK WORKER-C Danuta Swati Work Phone: [facility] 06-12-2023 09:21-0500 Body temperature 98.7 [degF] ROCK WORKER-C Danuta Swati Work Phone: [facility] 06-12-2023 09:21-0500 Body weight 60.32 kg ROCK WORKER-C Danutagary Reedmer Work Phone: [facility] 05-30-2023 14:24-0500 Body temperature 98.1 [degF] ROCK WORKER-C Danutagary Reedmer Work Phone: [facility] 05-30-2023 14:24-0500 Body weight 61.91 kg ROCK WORKER-C Danuta Swati Work Phone: [facility] 05-30-2023 14:24-0500 Diastolic blood pressure 80 mm[Hg] ROCK WORKER-C Danuta Swati Work Phone: [facility] 05-30-2023 14:24-0500 Heart rate 121 /min ROCK WORKER-C Danuta Swati Work Phone: [facility] 05-30-2023 14:24-0500 Respiratory rate 20 /min ROCK WORKER-C Danuta Swati Work Phone: [facility] 05-30-2023 14:24-0500 SaO2% (BldA) [Mass fraction] 100 % ROCK WORKER-C Danuta Araujo Work Phone: [facility] 05-30-2023 14:24-0500 Systolic blood pressure 116 mm[Hg] ROCK WORKER-C Danuta Swati Work Phone: [facility] 05-30-2023 14:11-0500 Body height 162.56 cm ROCK WORKER-C Danuta Araujo Work Phone: [facility] 05-23-2023 14:08-0400 Body height 162.6 cm Arsh Orozco MD Work Phone: [facility] 05-23-2023 14:08-0400 Body weight 61.24 kg Arsh Orozco MD Work Phone: [facility] 05-23-2023 14:08-0400 Diastolic blood pressure 72 mm[Hg] Arsh Orozco MD Work Phone: [facility] 05-23-2023 14:08-0400 Heart rate 104 /min Arsh Orozco MD Work Phone: [facility] 05-23-2023 14:08-0400 Respiratory rate 16 /min Arsh Orozco MD Work Phone: [facility] 05-23-2023 14:08-0400 SaO2% (BldA) [Mass fraction] 100 % Arsh Orozco MD Work Phone: [facility] 05-23-2023 14:08-0400 Systolic blood pressure 105 mm[Hg] Arsh Orozco MD Work Phone: [facility] 04-03-2023 06:41-0400 Body temperature 98.4 [degF] ROCK WORKER-C Danuta Araujo Work Phone: [facility] 04-03-2023 06:41-0400 Diastolic blood pressure 67 mm[Hg] ROCK WORKER-C Danuta Araujo Work Phone: [facility] 04-03-2023 06:41-0400 Heart rate 107 /min ROCK WORKER-C Danuta Swati Work Phone: [facility] 04-03-2023 06:41-0400 Respiratory rate 16 /min ROCK WORKER-C Danuta Swati Work Phone: [facility] 04-03-2023 06:41-0400 SaO2% (BldA) [Mass fraction] 98 % [employer]OCK WORKER-C Danuta Swati Work Phone: [facility] 04-03-2023 06:41-0400 Systolic blood pressure 108 mm[Hg] ROCK WORKER-C Danuta Swati Work Phone: [facility] 04-02-2023 12:51-0400 Body height 162.56 cm ROCK WORKER-C Danuta Swati Work Phone: [facility] 03-31-2023 04:20-0400 Body weight 60.9 kg ROCK WORKER-C Danuta Swati Work Phone: [facility] 03-27-2023 11:48-0400 Body temperature 97.8 [degF] ROCK WORKER-C Danuta Swati Work Phone: [facility] 03-27-2023 11:48-0400 Diastolic blood pressure 92 mm[Hg] ROCK WORKER-C Danuta Swati Work Phone: [facility] 03-27-2023 11:48-0400 Heart rate 84 /min ROCK WORKER-C Danuta Swati Work Phone: [facility] 03-27-2023 11:48-0400 Respiratory rate 13 /min ROCK WORKER-C Danuta Swati Work Phone: [facility] 03-27-2023 11:48-0400 SaO2% (BldA) [Mass fraction] 100 % ROCK WORKER-C Danuta Swati Work Phone: [facility] 03-27-2023 11:48-0400 Systolic blood pressure 132 mm[Hg] ROCK WORKER-C Danuta Swati Work Phone: [facility] 03-27-2023 06:00-0400 Body weight 59.9 kg ROCK WORKER-C Danuta Swati Work Phone: [facility] 03-22-2023 11:40-0400 Body height 162.56 cm ROCK WORKER-C Danuta Swati Work Phone: [facility] 03-22-2023 01:40-0400 Body height 162.56 cm ROCK WORKER-C Danuta Swati Work Phone: [facility] 03-22-2023 01:40-0400 Body temperature 98.1 [degF] ROCK WORKER-C Danuta Swati Work Phone: [facility] 03-22-2023 01:40-0400 Body weight 64.4 kg ROCK WORKER-C Danuta Swati Work Phone: [facility] 03-22-2023 01:40-0400 Diastolic blood pressure 75 mm[Hg] ROCK WORKER-C Danuta Swati Work Phone: [facility] 03-22-2023 01:40-0400 Heart rate 98 /min ROCK WORKER-C Danuta Swati Work Phone: [facility] 03-22-2023 01:40-0400 Respiratory rate 13 /min ROCK WORKER-C Danuta Swati Work Phone: [facility] 03-22-2023 01:40-0400 SaO2% (BldA) [Mass fraction] 100 % ROCK WORKER-C Danuta Swati Work Phone: [facility] 03-22-2023 01:40-0400 Systolic blood pressure 123 mm[Hg] ROCK WORKER-C Danuta Swati Work Phone: [facility] Encounters Encounter Date Encounter Type Care Provider Facility Start: 01-31-2025 End: 01-31-2025 ambulatory Sarah Henao MD Work Phone: [facility] Work Phone: Start: 01-31-2025 End: 01-31-2025 Departed Referred Sarah Henao MD -LAB [facility] Start: 07-23-2024 End: 07-23-2024 ambulatory [facility] Work Phone: Start: 07-23-2024 End: 07-23-2024 Patient encounter procedure [facility] Work Phone: Start: 07-02-2024 ambulatory HAVEN NIÑO LOG TRUCK DRIVER Facility: Shelter Start: 01-15-2024 End: 01-15-2024 ambulatory MASSIMO BRIGHT Not Available Start: 12-11-2023 End: 12-11-2023 Patient encounter procedure ROCK WORKER-C Danuta Araujo Work Phone: [facility] [address] Work Phone: Start: 12-11-2023 End: 12-11-2023 ambulatory ROCK WORKER-C Danuta Araujo Work Phone: [facility] Work Phone: Start: 11-13-2023 End: 11-13-2023 ambulatory ROCK WORKER-C Danuta Diana Swati Work Phone: [facility] Work Phone: Start: 11-13-2023 End: 11-13-2023 Patient encounter procedure ROCK WORKER-C Danuta Araujo [facility]: [facility] Work Phone: Start: 11-13-2023 Registered Recurring ROCK WORKER-C Isidra scott Araujo Work Phone: [facility] Work Phone: Start: 11-13-2023 ambulatory Keshav Arrington Facility:[facility] Start: 09-05-2023 End: 09-06-2023 ambulatory DANUTA ARAUJO Facility:[facility] Start: 08-08-2023 End: 08-08-2023 ambulatory JOEL NOE Facility:[facility] Start: 08-01-2023 End: 08-01-2023 ambulatory [facility] Start: 08-01-2023 End: 08-01-2023 Office outpatient new 45 minutes Maddie Lopez MD Work Phone: [facility] Comment on above: Vascular insufficien cy (Primary Dx); Dizziness; Near syncope; Supraventricular tachycardia Start: 07-09-2023 End: 07-09-2023 ambulatory [address] [facility] Start: 07-03-2023 End: 07-03-2023 ambulatory ROCK WORKER-C Danuta Araujo Work Phone: [facility] Work Phone: Start: 07-03-2023 End: 07-03-2023 Registered Recurring ROCK WORKER-C Danuta Araujo Work Phone: [facility] Work Phone: Start: 06-12-2023 End: 06-12-2023 Admission to same day surgery center ROCK WORKER-C Danuta Araujo Work Phone: [facility] [place] Work Phone: Start: 06-12-2023 End: 06-12-2023 ambulatory ROCK WORKER-C Danuta Araujo Work Phone: [facility] Work Phone: Start: 06-10-2023 End: 06-10-2023 ambulatory MARTHA [facility] Start: 05-31-2023 ambulatory Jeannie brantley APRN.LOG TRUCK DRIVER Work Phone: Gastroenterology Comment on above: Liver Biospy Start: 05-30-2023 End: 05-30-2023 ambulatory ROCK WORKER-C Danuta Araujo Work Phone: [facility] Work Phone: Start: 05-30-2023 End: 05-30-2023 Registered Recurring ROCK WORKER-C Danuta Araujo Work Phone: [facility] Work Phone: Start: 05-23-2023 End: 05-23-2023 ambulatory ARSH OROZCO Facility:[facility] Start: 05-23-2023 End: 05-23-2023 Patient encounter procedure Arsh Orozco MD Work Phone: Neurology Comment on above: Burning sensation (P rimary Dx); Disturbance of skin sensation Start: 05-14-2023 End: 05-14-2023 ambulatory JEANNIE MATHEUS Facility:[facility] Start: 05-14-2023 End: 05-14-2023 ambulatory Jeannie Jarvis MANAGER [employer]IVER Work Phone: Gastroenterology Comment on above: Advanced hepatic fib rosis (Primary Dx) Start: 05-14-2023 End: 05-14-2023 Telemedicine consultation with patient Jeannie Jarvis MANAGER [employer].LOG TRUCK DRIVER Work Phone: [facility] Start: 05-08-2023 End: 05-08-2023 ambulatory [facility] Start: 05-06-2023 End: 05-07-2023 ambulatory Zane Ortez MD Facility:[facility] Start: 04-12-2023 End: 04-13-2023 [facility] Start: 04-11-2023 Telephone encounter Mary Cagle (Pss) Gastroenterology Comment on above: Appointment Start: 03-27-2023 End: 04-03-2023 Evaluation and management of inpatient ROCK WORKER-C Danuta Araujo Work Phone: [facility] Work Phone: Start: 03-22-2023 End: 03-22-2023 Patient encounter procedure Sheng Mcdonald [facility] Start: 03-22-2023 End: 03-27-2023 Evaluation and management of inpatient ROCK WORKER-C Danuta Araujo Work Phone: [facility] Work Phone: Start: 01-28-2023 Emergency department patient visit Facility:[facility] Start: 10-18-2022 End: 10-19-2022 ambulatory DANUTA [...] End: 11-11-2020 ambulatory MASSIMO BRIGHT [facility] Start: 11-10-2020 End: 11-10-2020 Subsequent hospital visit by physician Haven Niño MANAGER INCOME TAX - LOG TRUCK DRIVER Work Phone: [facility] Start: 04-06-2020 End: 04-07-2020 ambulatory [facility] Start: 04-06-2020 End: 04-06-2020 Subsequent hospital visit by physician Haven Ni[facility] Procedures Date Procedure Procedure Detail Performing Clinician Start: 06-12-2023 Bone marrow sampling [employer] WORKER -C Danuta Araujo Work Phone: Start: 04-01-2023 MRI of cervical spin e with contrast R[employer] WORK[employer]-C Danuta Araujo Work Phone: Start: 04-01-2023 Duplex scan of lower limb veins [employer]OCK WORK[employer]-C Danuta Araujo Work Phone: Start: 03-23-2023 Ultrasonography of abdomen ROCK WORKER-Mikel Araujo Work Phone: Start: 03-22-2023 XR pre/post mri xray ROCK WORKER -Mikel Araujo Work Phone: Start: 03-22-2023 MRI of lumbar spine with contrast ROCK WORKER-Mikel Araujo Work Phone: Start: 03-22-2023 MRI of head ROCK WORKER-C Skip Araujo Work Phone: Start: 03-21-2023 CT of head without contrast R[employer] WORKER-C Danuta Araujo Work Phone: Start: 03-21-2023 Plain chest X-ray ROCK WORKER-C Danuta Araujo Work Phone: Start: 03-21-2023 Aerobic microbial culture ROCK WORKER-Mikel Araujo Work Phone: Start: 03-21-2023 Anaerobic microbial culture ROCK WORKER-C Danuta Araujo Work Phone: Start: 03-21-2023 Blood culture for ba cteria, including anaerobic screen ROCK WORKER-Mikel Araujo Work Phone: Start: 03-21-2023 CSF (PCR) ROCK WORKER-C Skip Araujo Work Phone: Start: 03-21-2023 Investigation of tra nsfusion reaction ROCK WORKER-Mikel Araujo Work Phone: Start: 03-21-2023 Urine culture ROCK WORKER-C Isidra Harper Work Phone: Start: 11-10-2020 Gonadotropin chorion ic quantitative Massimo Amilcar Bright MD Work Phone: Start: 11-10-2020 Hepatic function panel Inocencio Bender MANAGER INCOME TAX - [employer] TRUCK DRIVER Work Phone: Start: 04-06-2020 Antibody hiv-1&hiv-2 single [...] Td Vaccines (8 - Td or Tdap) [facility] Start: 06-05-2032 Urine microalbumin profile DTaP,Tdap,Td Vaccine (8 - Td or Tdap) [facility] Start: 01-31-2025 Bacteria identified in Urine by Culture Urine Culture [facility] Start: 01-31-2025 Urine culture [facility] Start: 08-01-2024 Adult BMI Screening Adult BMI Screen ing [facility] Start: 08-01-2024 Tobacco Screening Tobacco Screening [facility] Start: 12-11-2023 Hemolytic complement CH50 level [facility] Start: 12-11-2023 [facility] Start: 11-13-2023 End: 02-12-2024 CBC W Auto Differential panel - Blood CBC + DIFF Lab Routine Advanced hepatic fibrosis Expected: 11/13/2023 (Approximate), Expires: 02/12/2024 [facility] Work Phone: Comment on above: Expected: 11/13/2023 (Approximate), Expires: 02/12/2024 Start: 11-13-2023 End: 02-12-2024 Comprehensive metabolic 2000 panel - Serum or Plasma [facility] Work Phone: Comment on above: Expected: 11/13/2023 (Approximate), Expires: 02/12/2024 Start: 11-13-2023 End: 02-12-2024 PT panel - Platelet poor plasma by Coagulation assay PROTHROMBIN TIME/PT Lab Routine Advanced hepatic fibrosis Expected: 11/13/2023 (Approximate), Expires: 02/12/2024 [facility] Work Phone: Comment on above: Expected: 11/13/2023 (Approximate), Expires: 02/12/2024 Start: 06-12-2023 End: 06-12-2023 [facility] Start: 06-12-2023 Bone marrow sampling [facility] Start: 05-30-2023 Angiotensin converti ng enzyme [Enzymatic activity/volume] in Serum or Plasma [facility] Start: 05-30-2023 Copper measurement [facility] Start: 05-30-2023 Rheumatoid factor [Units/volume] in Serum or Plasma [facility] Start: 05-30-2023 [facility] Start: 05-24-2023 End: 08-23-2023 Cobalamin (Vitamin B12) [Mass/volume] in Serum or Plasma VITAMIN B12 BLOOD Lab Routine Burning sensation Disturbance of skin sensation Expected: 05/24/2023, Expires: 08/23/2023 [facility] Work Phone: Comment on above: Expected: 05/24/2023 , Expires: 08/23/2023 Start: 05-24-2023 End: 08-23-2023 PROT ELECT SERUM WITH RONALD AND INTERP PROT ELECT SERUM WITH RONALD AND INTERP Lab Routine Burning sensation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 and performed wren elements of exam and I formulated the plan of care and facilitated the medical decision making. Documented By: Marc Giron MD 04/02/23 0914 Signed By: <Electronically signed by Marc Giron MD> 04/02/23 1201 [facility] Work Phone: 1(592) 830-704209-11-2023 Progress note Author David Chowdary [facility] April 01, 2023 3:01pm Note Date/Time April 01, 2023 2:58pm [facility] [address] [place] [address] Neurology Progress Note Signed Patient: Rica Stout MR#: [id number] : 1995 Acct:[id number] Age/Sex: 27 / F Adm Date: 3 Loc: Room: [address] [place] [address] Type: ADM IN Attending Dr: Marc Giron [...] options The patient should be scheduled with dental amalgam processor as outpatient for further treatment of underlying liver dysfunction The patient can follow-up in the adult outpatient neurology clinic with Dr. Arrington We will continue to follow with supportive therapy. I discussed the case with Dr. Giron Code(s): G62.9 - Polyneuropathy, unspecified Status: Acute Documented By: David Chowdary MD 04/01/23 8970 Signed By: <Electronically signed by MD David Chowdary> 04/01/23 8848 [facility] Work Phone: 1(929) 886-423909-11-2023 Progress note Author Marc Giron [facility] April 01, 2023 11:55am Note Date/Time April 01, 2023 10:18am [facility] [address] [place] [address] Physiatry(Rehab) Progress Note Signed Patient: Rica Stout MR#: [id number] : 1995 Acct:[id number] Age/Sex: 27 / F Adm Date: 3 Loc: 5T Room: [address] [place] [address] Type: ADM IN Attending Dr: Marc Giron [...] walk up them.? Patient previously worked at [employer], but had to quit her job earlier [...] Blakeq PRN Reason Stop Dose Admin Acetaminophen 500 mg 03/27/23 14:46 03/31/23 21:01 Acetaminophen 500 Mg Tablet PO 03/26/24 14:45 500 mg Q4H PRN Administration Pain Al Hydrox/Mg Hydrox/Simethicone 30 ml 03/27/23 14:46 Mag Hydrox/Al Hydrox/Simeth 30 Ml Udc PO 03/26/24 14:45 Q4H PRN Indigestion Bisacodyl 10 mg 03/27/23 14:46 Bisacodyl 10 Mg Supp.Rect PA 03/26/24 14:45 DAILY PRN Constipation Diclofenac Sodium 2 gm 03/30/23 09:00 04/01/23 08:59 Diclofenac Sodium 1% Gel 50 Gm Tube TOPICAL 03/29/24 08:59 2 gm TID ROXANNE Administration Docusate Sodium 100 mg 03/27/23 14:46 Docusate 100 Mg Capsule PO 03/26/24 14:45 BID PRN Constipation Docusate Sodium 283 mg 03/27/23 14:46 Docusate Enema 283 Mg/5 Ml Enema PA 03/26/24 14:45 DAILY PRN Constipation Enoxaparin Sodium 40 mg 03/28/23 10:00 04/01/23 08:59 Enoxaparin 40 Mg/0.4 Ml Syringe SUBCUT 03/27/24 09:59 40 mg DAILY@1000 ROXANNE Administration Folic Acid 1 mg 03/28/23 09:00 04/01/23 08:59 Folic Acid 1 Mg Tablet PO 03/27/24 08:59 1 mg QAM [facility] Administration Lactulose 30 gm 03/27/23 14:46 Lactulose 20 Gm/30 Ml Udc PO 03/26/24 14:45 DAILY PRN Constipation Lactulose 10 gm 03/28/23 09:00 04/01/23 08:59 Lactulose 20 Gm/30 Ml Udc PO 03/27/24 08:59 10 gm QAM [facility] Administration Magnesium Oxide 200 mg 03/28/23 09:00 04/01/23 08:59 Magnesium Oxide 400 Mg Tablet PO 03/27/24 08:59 200 mg QAM [facility] Administration Menthol/Methyl Salicylate 1 applic 03/30/23 01:54 [...] equipment? to enhance the patient's a functional quaker Encourage deep breathing exercises and incentive spirometry [...] Allied health note review, nursing note review, project consultant note review, discussion with nursing and case management, and more than 50% of my time was spent on counseling and coordination of care, time spent 25 minutes ? Patient was personally seen by me, Dr. Giron, on the day of encounter, I reviewed the history and the relevant portions of the chart, including current orders, allied health and project consultant notes, labs/imaging and performed wren elements of exam and I formulated the plan of care and facilitated the medical decision making. Documented By: Marc Giron MD 04/01/23 1017 Signed By: <Electronically signed by Marc Giron MD> 04/01/[address] [facility] Work Phone: [phone] 322-559809-09-2023 Consult note Author David Chowdary [facility] March 30, 2023 1:15pm Note Date/Time March 30, 2023 1:13pm [facility] [address] [place] [address] Neurology Consult Note Signed Patient: Rica Stout MR#: [id number] : 1995 Acct:[id number] Age/Sex: 27 / F Adm Date: 3 Loc: Room: 0Y6108-3 Type: ADM IN Attending Dr: Marc Giron MD Copies to: MD Danuta Hernandez, ANDREA Chowdary MD~ HPI Consult Date: 03/30/23 Customer Marketing Intern: David Chowdary MD Reason for consult: Polyneuropathy [...] negative unless noted below or in HPI [facility] Medical History Hyperammonemia No pertinent past [...] signed by MD David Chowdary> 03/30/[address] [facility] Work Phone: [phone]) [phone] Progress note Author Marc Giron [facility] March 30, 2023 11:43am Note Date/Time March 30, 2023 11:43am [facility] [address] [place] [address] Physiatry(Rehab) Progress Note Signed Patient: Rica Stout MR#: [id number] : 1995 Acct:[id number] Age/Sex: 27 / F Adm Date: 3 Loc: Room: [address] [place] [address] Type: ADM IN Attending Dr: Marc Giron [...] up them.? Patient previously worked at a [employer], but had to quit her job earlier [...] mg 03/27/23 14:46 Bisacodyl 10 Mg Supp.Rect PA 03/26/24 14:45 DAILY PRN Constipation Diclofenac Sodium 2 gm 03/30/23 09:00 03/30/23 09:53 Diclofenac Sodium 1% Gel 50 Gm Tube TOPICAL 03/29/24 08:59 2 gm TID ROXANNE Administration Docusate Sodium 100 mg 03/27/23 14:46 Docusate 100 Mg Capsule PO 03/26/24 14:45 BID PRN Constipation Docusate Sodium 283 mg 03/27/23 14:46 Docusate Enema 283 Mg/5 Ml Enema PA 03/26/24 14:45 DAILY PRN Constipation Enoxaparin Sodium [...] equipment? to enhance the patient's a functional quaker Encourage deep breathing exercises and incentive spirometry [...] Allied health note review, nursing note review, project consultant note review, discussion with nursing and case management, and more than 50% of my time was spent on counseling and coordination of care, time spent 25 minutes ? Patient was personally seen by me, Dr. Giron, on the day of encounter, I reviewed the history and the relevant portions of the chart, including current orders, allied health and project consultant notes, labs/imaging and performed wren elements of exam and I formulated the plan of care and facilitated the medical decision making. Documented By: Marc Giron MD 03/30/23 4053 Signed By: <Electronically signed by Marc Giron MD> 03/30/23 4738 [facility] Work Phone: [phone]) 654-381909-07-2023 History and physical note Author Jamil Salazar [facility] March 28, 2023 1:36pm Note Date/Time March 28, 2023 9:14am [facility] [address] [place] [address] Physiatry (Rehab) H&P Signed Patient: Rica Stout MR#: [id number] : 1995 Acct:[id number] Age/Sex: 27 / F Adm Date: 3 Loc: Room: 5U3800-3 Type: ADM IN Attending Dr: Marc Giron MD Copies to: MD Marc Carty MD Kyle Denihan, DO,RES Danuta Araujo, LOG TRUCK DRIVER~ <Chip Lemus DO, RES - Last Filed: [...] up them. Patient previously worked at a [employer], but had to quit her job earlier [...] Bisacodyl (Bisacodyl 10 Mg Supp.Rect) 10 mg PA DAILY PRN PRN Reason: Constipation Stop: 03/26/24 14:45 Docusate Sodium (Docusate 100 Mg Capsule) 100 mg PO BID PRN PRN Reason: Constipation Stop: 03/26/24 14:45 Docusate Sodium (Docusate Enema 283 Mg/5 Ml Enema) 283 mg PA DAILY PRN PRN Reason: Constipation Stop: 03/26/24 14:45 Enoxaparin Sodium (Enoxaparin 40 Mg/0.4 Ml Syringe) 40 mg SUBCUT DAILY@1000 [facility] Stop: 03/27/24 09:59 Folic Acid (Folic Acid 1 Mg Tablet) [facility] [place]: 03/27/24 08:59 Gabapentin (Gabapentin 100 Mg Capsule) 100 mg PO TID [facility] Stop: 03/26/24 21:59 Last Admin: 03/27/23 21:06 Dose: 100 mg Lactulose (Lactulose 20 Gm/30 Ml Udc) 30 gm PO DAILY PRN PRN Reason: Constipation Stop: 03/26/24 14:45 Lactulose (Lactulose 20 Gm/30 Ml Udc) 10 [facility] [place]: 03/27/24 08:59 Magnesium Oxide (Magnesium Oxide 400 Mg Tablet) 200 mg PO QAM [facility] Stop: 03/27/24 08:59 Potassium Chloride (Potassium Chloride Er 20 Meq Tab.Er.Prt) 20 meq PO BID [facility] Stop: 03/26/24 20:59 Last Admin: 03/27/23 21:06 Dose: 20 meq Sennosides (Sennosides 8.6 Mg Tablet) 2 tab PO DAILY@12 PRN PRN Reason: If no BM in 2 days Stop: 03/27/24 11:59 Sodium Chloride (Sodium Chloride 0.9 % 10 Ml Syringe) 0 ml IV-PUSH PRN PRN PRN Reason: Flush Stop: 03/26/24 14:45 Thiamine HCl (Thiamine 100 Mg Tablet) 100 mg PO QAM [facility] Stop: 03/27/24 08:59 Tramadol HCl (Tramadol [...] up the lower extremities. She has 4/5 nut tightener strength in her hands bilaterally with pain during the testing. Psych: Affect, speech and movements normal. Mood congruent Results <Chip BurrellDO adan, RES - Last Filed: 03/28/23 11:04> Labs Labs: Laboratory Results - last 24 hr 03/28/23 03/28/23 05:15 05:15 Corrected WBC 6.7 Uncorrected WBC Count 6.7 RBC 3.35 L Hgb 12.2 Hct 36.2 MCV 107.9 H MCH 36.4 H MCHC 33.7 RDW 14.1 Plt Count 273 MPV 7.2 Neut % (Auto) 55.2 Lymph % (Auto) 30.9 H[place] % (Auto) 7.5 Eos % (Auto) 5.0 Baso % (Auto) 1.4 Nucleat RBC Rel Count 0.2 Neut # (Auto) 3.7 Lymph # (Auto) 2.1 [place] # (Auto) 0.5 Eos # (Auto) 0.3 [...] 24 hour daily monitoring and intervention from Power Brake Rebuilder as well as other consulting physicians including internal medicine as well as 24 hour daily side gluer nursing - for medical safe / optimal [...] equipment to enhance the patient's a functional quaker Encourage deep breathing exercises and incentive spirometry [...] Allied health note review, nursing note review, project consultant note review, discussion with nursing and case management, and more than 50% of my time was spent on counseling and coordination of care, time spent 70 minutes Patient was personally seen by me, Dr. Salazar, on the day of encounter, within 24 hours of rehab admission, reviewed the history and the relevant portions of the chart, including current orders, allied health and project consultant notes, labs/imaging and performed wren elements [...] signed by Jamil Salazar MD> 03/28/[address] [facility] Work Phone: 1(790) 334-632709-06-2023 Progress note Author Marc Olivarezey [facility] March 27, 2023 10:24am Note Date/Time March 27, 2023 10:25am [facility] [address] [place] [address] Physiatry(Rehab) Progress Note Signed Patient: Rica Stout MR#: [id number] : 1995 Acct:[id number] Age/Sex: 27 / F Adm Date: 3 Loc: 4N Room: [address] [place] [address] Type: ADM IN Attending Dr: Brianne Umanzor [...] 3.1 Globulin (PEP) 2.8 Albumin/Globulin (PEP) 1.1 Bgsjw-7-Ozbboullr 0.2 Dvagn-6-Wihhqfscw 0.7 Beta Globulins 0.9 Gamma Globulins 1.1 [...] Allied health note review, nursing note review, project consultant note review, discussion with nursing and case management, and more than 50% of my time was spent on counseling and coordination of care, time spent 25 minutes Patient was personally seen by me, Dr. Giron, on the day of encounter, reviewed the history and the relevant portions of the chart, including current orders, allied health and project consultant notes, labs/imaging and performed wren elements of exam and I formulated the plan of care and facilitated the medical decision making. Documented By: Marc Giron MD 03/27/23 1022 Signed By: <Electronically signed by Marc Giron MD> 03/27/23 1024 [facility] Work Phone: 1(898) 425-606809-05-2023 Progress note Author Brianne Umanzor [facility] March 26, 2023 2:36pm Note Date/Time March 26, 2023 2:36pm [facility] [address] [place], [place] [id number] Hospitalist Progress Note Signed Patient: Rica Stout MR#: [id number] : 1995 Acct:[id number] Age/Sex: 27 / F Adm Date: 3 Loc: 4N Room: [address] [place] [address] Type: ADM IN Attending Dr: Brianne Umanzor [...] signed by Brianne Umanzor MD> 03/26/[address] [facility] Work Phone: 1([phone]) 161-952909-05-2023 Consult note Author Marc Giron [facility] March 26, 2023 12:50pm Note Date/Time March 26, 2023 9:50am [facility] [address] [place] [address] Physiatry (Rehab) Consult Note Signed Patient: Rica Stout MR#: [id number] : 1995 Acct:[id number] Age/Sex: 27 / F Adm Date: 3 Loc: Room: [address] [place] [address] Type: ADM IN Attending Dr: Brianne Umanzor MD Copies to: MD Brianne Hernandez MD Pamela Sue Cramer, LOG TRUCK DRIVER~ Etiologic Dx/Impairment Group Narrative Narrative: Sensorimotor polyneuropathy HPI Consult Date: 03/26/23 Requesting Physician: Brianne Umanzor MD Primary Care Provider: Danuta Araujo, ROCK WORKER-C Consult Narrative Reason for consult: Functional decline [...] negative unless noted below or in HPI [facility] Medical History Hyperammonemia No pertinent past [...] supervision is both reasonable and necessary, including pmcz-qa-nyxs visits at least 3 days/week with the [...] Allied health note review, nursing note review, project consultant note review, discussion with nursing and case management, and more than 50% of my time was spent on counseling and coordination of care, time spent 65 minutes Patient was personally seen by me, Dr. Giron, on the day of encounter, reviewed the history and the relevant portions of the chart, including current orders, allied health and project consultant notes, labs/imaging and performed wren elements of exam and I formulated the plan of care and facilitated the medical decision making. Documented By: Marc Giron MD 03/26/23 0950 Signed By: <Electronically signed by Marc Giron MD> 03/26/23 1250 [facility] Work Phone: 1(329) 922-146309-04-2023 Progress note Author Brianne Umanzor [facility] March 25, 2023 1:31pm Note Date/Time March 25, 2023 1:31pm [facility] [address] [place] [address] Hospitalist Progress Note Signed Patient: Rica Stout MR#: [id number] : 1995 Acct:[id number] Age/Sex: 27 / F Adm Date: 3 Loc: 4N Room: 3O3827-4 Type: ADM IN Attending Dr: Brianne Umanzor [...] Room Air 03/25/23 11:01 03/25/23 11:01 03/25/23 11:03/25/23 11:01 03/25/23 11:03/25/23 11:01 Narrative: Const General: [...] Brianne Umanzor MD> 03/25/23 1331 [facility] Work Phone: 1([phone]) 964-950909-03-2023 Progress note Author Brianne Umanzor [facility] March 24, 2023 12:31pm Note Date/Time March 24, 2023 12:31pm [facility] [address] [place] [address] Hospitalist Progress Note Signed Patient: Rica Stout MR#: [id number] : 1995 Acct:[id number] Age/Sex: 27 / F Adm Date: 3 Loc: 4N Room: [address] [place] [address] Type: ADM IN Attending Dr: Brianne Umanzor [...] <Electronically signed by Brianne Umanzor MD> 03/24/[address] [place] [address] Work Phone: 1(524) 802-636309-03-2023 Progress note Author Loli Cheema [facility] March 24, 2023 10:52am Note Date/Time March 24, 2023 9:58am [facility] [address] [place] [address] Neurology Progress Note Signed Patient: Rica Stout MR#: [id number] : 1995 Acct:[id number] Age/Sex: 27 / F Adm Date: 3 Loc: 4N Room: [address] [place] [address] Type: ADM IN Attending Dr: Brianne Umanzor [...] of dysmetria with good rapid alternating movements gbaswz-zs-vgid Tone is physiologic Deep tendon reflexes are [...] be a hereditary sensorimotor neuropathy such as Nqevrkb-Axhyz-Ojekq and she will likely need some genetic [...] signed by DO Loli Cheema> 03/24/[address] [facility] Work Phone: 1(908) 591-156409-02-2023 Progress note Author Brianne Umanzor [facility] March 23, 2023 1:49pm Note Date/Time March 23, 2023 1:49pm [facility] [address] [place] [address] Hospitalist Progress Note Signed Patient: Rica Stout MR#: [id number] : 1995 Acct:[id number] Age/Sex: 27 / F Adm Date: 3 Loc: Room: [address] [place] [address] Type: ADM IN Attending Dr: Brianne Umanzor [...] Syringe IV-PUSH 03/21/24 05:59 10 ml QSHIFT ORXANNE Administration Thiamine HCl 100 mg 03/22/23 12:00 [...] <Electronically signed by Brianne Umanzor MD> 03/23/[address] [facility] Work Phone: 1(684) 314-155409-02-2023 Progress note Author Loli Cheema [facility] March 23, 2023 12:13pm Note Date/Time March 23, 2023 11:07am [facility] [address] [place], [place] [id number] Neurology Progress Note Signed Patient: Rica Stout MR#: [id number] : 1995 Acct:[id number] Age/Sex: 27 / F Adm Date: 3 Loc: 4N Room: 6T4698-3 Type: ADM IN Attending Dr: Brianne Umanzor [...] of dysmetria with good rapid alternating movements vnycij-ie-bzxa Tone is physiologic Deep tendon reflexes are [...] be a hereditary sensorimotor neuropathy such as Lpcgehv-Pnwbi-Yekam and she will likely need some genetic [...] signed by DO Loli Cheema> 03/23/[address] [facility] Work Phone: 1(145) 194-303009-01-2023 Consult note Author Chele Gamino [facility] March 22, 2023 3:54pm Note Date/Time March 22, 2023 1:28pm [facility] [address] [place] [address] Neurology Consult Note Signed Patient: Rica Stout MR#: [id number] : 1995 Acct:[id number] Age/Sex: 27 / F Adm Date: 3 Loc: 4N Room: 7A8315-4 Type: ADM IN Attending Dr: Brianne Umanzor MD Copies to: DO Brianne Stevenson MD Pamela Sue Cramer, LOG TRUCK DRIVER~ HPI Consult Date: 03/22/23 Customer Marketing Intern: Chele Gamino DO [facility] Medical History (Updated 03/22/23 @ 01:53 [...] No acute process. Impression dictated by: Dave Clrak M.D.03/22/2023 8:07 AM Dictation Location: [place] [address] 03/21/23 21:23 IMPRESSION: Unremarkable exam Impression dictated by: Dave Clark M.D.03/22/2023 8:08 AM Dictation Location: [place] [address] Assessment/Plan (1) Weakness of distal arms and [...] supposed to have an appointment with a dental amalgam processor today to figure out what to do [...] had to quit her job at a [employer] because it was too much time on [...] <Electronically signed by Chele Gamino DO> 03/22/[address] [facility] Work Phone: 1(250) 850-337009-01-2023 Progress note Author Brianne Umanzor [facility] March 22, 2023 12:53pm Note Date/Time March 22, 2023 12:52pm [facility] [address] [place] [address] Progress Note Signed Patient: Rica Stout MR#: [id number] : 1995 Acct:[id number] Age/Sex: 27 / F Adm Date: 3 Loc: 4N Room: [address] [place] [address] Type: ADM IN Attending Dr: Brianne Umanzor [...] <Electronically signed by Brianne Umanzor MD> 03/22/23 [facility] Work Phone: 1(400) 940-653309-01-2023 History and physical note Author Parveen Keller [facility] March 22, 2023 7:30am Note Date/Time March 22, 2023 1:25am [facility] [address] [place] [address] Hospitalist H&P Signed Patient: Rica Stout MR#: [id number] : 1995 Acct:[id number] Age/Sex: 27 / F Adm Date: 3 Loc: 4N Room: 4E6536-6 Type: ADM IN Attending Dr: Parveen Keller [...] also reports pitting edema to BLE, decreasing nut tightener strength inboth of her hands. She saw [...] She has had testing done at the [facility] where they foundher liver enzymes [...] bolus. [facility] the care of thehospitalist team for further evaluation and treatment. Review of Systems Review of Systems Review of systems: A 10 point review of systems was obtained, negative unless noted in the HPI or below. [facility] Medical History (Updated 03/22/23 @ 01:53 [...] % (Auto) 29.7 % (.) 03/21/23 19:15 [place] % (Auto) 7.6 % (.) 03/21/23 19:15 Eos % (Auto) 2.7 % (.) 03/21/23 19:15 Baso % (Auto) 1.6 % (.) 03/21/23 19:15 Nucleat RBC Rel Count 0.1 /100 WBC (0-0.5) 03/21/23 19:15 Neut # (Auto) 4.2 x10E3/uL (1.8-7.7) 03/21/23 19:15 Lymph # (Auto) 2.1 x10E3/uL (1.00-4.8) 03/21/23 19:15 [place] # (Auto) 0.5 x10E3/uL (0.0-0.8) 03/21/23 19:15 [...] pH 5.0 (5.0-9.0) 03/21/23 19:25 Ur Specific [place] 1.019 (1.001-1.030) 03/21/23 19:25 Urine Protein Trace [...] CSF Neutrophils N/A 03/21/23 23:50 CSF Neutrophils Gear Machinist 03/21/23 23:50 CSF Lymphocytes N/A 03/21/23 23:50 [...] the plan of care and confirmed the LOG TRUCK DRIVER's written note. Documented By: Yoana Rico APRN 03/22/23 0125 Signed By: <Electronically signed by HODAN Rico> 03/22/23 0207 <Electronically signed by Parveen Keller MD> 03/22/23 0730 [facility] Work Phone: Consult note Author Jane Tracey [facility] May 30, 2023 3:16pm Note Date/Time May 30, 2023 2 :16pm [facility] [place] [address] Hem/Onc Consult Note - OP Signed Patient: Rica Stout MR#: [id number] : 1995 Acct:[id number] Age/Sex: 27 / F Type: REG RCR Copies to: DO Danuta Drake, ANDREA Goodman APRN-CERTIFIED INCOME TAX PREPARER-Mikel~ HPI Date/Time of Service: Date of Service: 05/30/2023 Time of Service: 14:14 Referring Provider/PCP: Referring Provider: Keshav Arrington DO PCP: Dnauta Araujo, ROCK WORKER-C - History of Present Illness Reason for [...] it was minimally effective. She also saw [facility] neurologist 05/22/23 but we do not [...] with and without contrast was done at [facility] on 03/27/2023 revealed no cord compression or abnormal postcontrast enhancement. No significant spinal canal narrowing or neural foraminal narrowing. MRI of the lumbar spine with without contrast on 03/22/2023 revealed mild degenerative changes without significant spinal canal or neuroforaminal narrowing. It did reveal broad based disc bulges at T12-L1 and L1-L2. But no masses or abnormal postcontrast enhancement. Abdominal ultrasound at [facility] on 03/22/2023 revealed a prominent liver suspicious [...] was 58 which were normal. She saw [facility] GI who recommended liver biopsy but then decided to follow observation for now for 6 months. 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 Her Lipids were very high as well. She also has hypopigmented skin spots on both arms since March 2023, saw dermatology at [facility] who performed a skin biopsy but told her what sounds she has vascular insufficiency but no reports were available to us as well. She has not been using folic acid or thiamin since they ran out beginning of April 2023. She is wearing 30 days ekg monitor currently due to history of tachycardia and she has been using magnesium and atenolol for that. She liver in an old house that has molds, mice and not sure if it has lead as well. 14 points systems were reviewed and are negative. [facility] - Medical History Medical History: Medical [...] the reports from the skin biopsy, the [facility] dermatology note, and the [facility] neurology note. -Return in 4 weeks [...] etiology but she saw dermatology at the [facility] who performed a skin biopsy and the report of the skin biopsy is not available to us however she was told by dermatology there that she has vascular insufficiency causing the rash. -We will try to obtain the reports from the skin biopsy and dermatology note from [facility] dermatology. - Time with Patient Total Time Spent with Patient (Consult): 60 mins or more Coordination of Care & Counseling Time: Greater than 50% of time spent with patient was for coordination of care (as documented) and shwo-jn-jzjv counseling of patient and/or family. Dictated By: Jane Tracey MD DD/ 1414 Signed By: <Electronically signed by Jane Tracey MD> 05/30/23 1516 [facility] Work Phone: Discharge summary Author Brianne Umanzor [facility] March 27, 2023 2:45pm Note Date/Time March 27, 2023 2:38pm [facility] [address] [place] [address] Discharge Summary Signed Patient: Rica Stout MR#: [id number] : 1995 Acct:[id number] Age/Sex: 27 / F Adm Date: 3 Loc: Room: [address] [place] [address]: Brianne Umanzor MD Copies to: [...] GBS. She was found to have low [id number] and given once time dose here. Also [...] Discharge Plan Discharge Plan Patient Disposition: Rehab [facility] Activity: Ambulate as Tolerated Diet: Regular Additional [...] signed by Brianne Umanzor MD> 03/27/23 1445 [facility] Work Phone: Evaluation + Plan note No data available for this section [facility] Evaluation note* Diagnosis Onset Date Resolution Status Bilateral leg paresthesia ac [place] History of ETOH abuse acute Hx of drug abuse acute Hypomagnesemia acute Hypophosphatemia acute Paresthesia of upper extremity acute Poor appetite acute Transaminitis acute UTI (urinary tract infection) acute Weakness acute Weakness of distal arms and legs acute Weight loss acute [facility] Work Phone: Evaluation note* Diagnosis Onset Date Resolution Status Bilateral leg paresthesia ac [place] History of ETOH abuse acute Hx of drug abuse acute Hypomagnesemia acute Hypophosphatemia acute Paresthesia of upper extremity acute Poor appetite acute Sensorimotor neuropathy acut e Transaminitis acute UTI (urinary tract infection) acute Weakness acute Weakness of distal arms and legs acute Weight loss acute [facility] Work Phone: Evaluation note* Diagnosis Onset Date Resolution Status Bilateral leg paresthesia ac [place] History of ETOH abuse acute Hx of drug abuse acute Hypomagnesemia acute Hypophosphatemia acute Paresthesia of upper extremity acute Poor appetite acute Sensorimotor neuropathy acut e Transaminitis acute UTI (urinary tract infection) acute Weakness acute Weakness of distal arms and legs acute Weight loss acute Bilateral leg paresthesia ac [place] Folate deficiency acute History of ETOH abuse acute Hx of drug abuse acute Hypomagnesemia acute Hypophosphatemia acute Impaired mobility and ADLs a cute Sensorimotor neuropathy acut e Transaminitis acute UTI (urinary tract infection) acute Weakness acute Weakness of distal arms and legs acute [facility] Work Phone: Evaluation note* Diagnosis Burning sensation- Primary Disturbance of skin sensation Disturbance of skin sensation [facility] Diagnosis Advanced hepatic fibrosis- Primary [facility]* Diagnosis Onset Date Resolution Status Bilateral leg paresthesia ac [place] History of ETOH abuse acute Hx of drug abuse acute Hypomagnesemia acute Hypophosphatemia acute Paresthesia of upper extremity acute Poor appetite acute Sensorimotor neuropathy acut e Transaminitis acute UTI (urinary tract infection) acute Weakness acute Weakness of distal arms and legs acute Weight loss acute Bilateral leg paresthesia ac [place] Folate deficiency acute History of ETOH abuse acute Hx of drug abuse acute Hypomagnesemia acute Hypophosphatemia acute Impaired mobility and ADLs a cute Sensorimotor neuropathy acut e Transaminitis acute UTI (urinary tract infection) acute Weakness acute Weakness of distal arms and legs acute Elevated immunoglobulin A ac [place] Multiple hypopigmented skin lesions on both forearms acute 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 acute [facility] Work Phone: Evaluation note* Diagnosis Advanced hepatic fibrosis- Primary [facility] this [facility]* Diagnosis Onset Date Resolution Status Elevated immunoglobulin A ac [place] Multiple hypopigmented skin lesions on both forearms acute 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 acute [facility] Work Phone: Evaluation note* Diagnosis Onset Date Resolution Status Elevated immunoglobulin A ac [place] Multiple hypopigmented skin lesions on both forearms acute 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 acute B12 deficiency acute Elevated immunoglobulin A ac [place] Folate deficiency acute Multiple hypopigmented skin lesions on both forearms acute 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 acute Transaminitis acute [facility] Work Phone: Evaluation noteNo assessment information available [facility] Work Phone: Evaluation note* Diagnosis Vascular insufficiency- Primary Unspecified circulatory system disorder Dizziness Dizziness and giddiness Near syncope Supraventricular tachycardia Other specified cardiac dysrhythmias [facility] No data available for this section [facility] Discharge instructions Additional Instructions -Activity: Ambulate as tolerated. No driving until cleared by physician, may ride in car. -Diet: Regular diet. You will have Outpatient Physical Therapy at [facility] (Address: [address] [place] [address] Dr. [place], [place]/ ext. 3217). The order for this has already been [...] office to inform them prior to your appointment.[facility] Work Phone: InstructionsNot on filedocumented in this encounter [facility] No data available for this section [facility] Reason for referral (narrative)No reason for referral information 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 Expl anation ACP-Advance Directive ACP-Power of Yard Supervisor Advance Directive Response Recorded Date/ Time [...] kiara g use July 23, 2024 3:14pm Chief Complaint Admit Date Unknown January 31, 2025 1:45 pm Additional Source Comments INFORMATION SOURCE (unrecogn ized section and content) DATE CREATED AUTHOR 11/12/2020 [facility] DATE CREATED AUTHOR AUTHOR'S ORGANIZ ATION 10/27/2022 [facility] DATE CREATED AUTHOR AUTHOR'S ORGANIZ ATION [facility] DATE CREATED AUTHOR AUTHOR'S ORGANIZ ATION 05/13/2023 [facility] DATE CREATED AUTHOR AUTHOR'S ORGANIZ ATION 07/17/2023 [facility] DATE CREATED AUTHOR AUTHOR'S ORGANIZ ATION 08/04/2023 [facility] DATE CREATED AUTHOR AUTHOR'S ORGANIZ ATION 09/07/2023 [facility] DATE CREATED AUTHOR AUTHOR'S ORGANIZ ATION 12/26/2023 [facility] DATE CREATED AUTHOR AUTHOR'S ORGANIZ ATION 01/17/2024 [facility] DATE CREATED AUTHOR AUTHOR'S ORGANIZ ATION 07/05/2024 [facility] Teams (unrecognized sec tion and content) Team Status: Active Member Role Status Dates Danuta Araujo ROCK WORKER-C Primary Care Provider Active Team Status: Inactive Member Role Status Dates Danuta Araujo ROCK WORKER-C Primary Care Provider Active Start: July 23, 2024 End: July 23, 2024 Ella Regalado APRN Attending Provider Active S tart: July 23, 2024 End: July 23, 2024 Team Status: Active Member Role Status Dates Danuta Araujo ROCK WORKER-C Primary Care Provider Active Jane Tracey MD Attending Provider Active Keshav Arrington , Referring Provider Active Team Status: Inactive Member Role Status Dates Danuta Araujo ROCK WORKER-C Primary Care Provider Active Jane Tracey MD Attending Provider Active Team Status: Inactive Member Role Status Dates Danuta Araujo ROCK WORKER-C Primary Care Provider Active Bernard Peterson , Emergency Provider Active Parveen Keller MD Admit Provider Active Chele Gamino , Other Provider Active Brianne Umanzor MD Attending Provider Active Marc Giron MD Other Provider Active Team Status: Active Member Role Status Dates Danuta Araujo ROCK WORKER-C Primary Care Provider Active Marc Giron MD Admit Provider, Attending Provider A ctive Team Status: Active Member Role Status Dates Danuta Araujo ROCK WORKER-C Primary Care Provider Active Bernard Peterson , Emergency Provider Active Parveen Keller MD Admit Provider, Attending Provide r Active Team Status: Inactive Member Role Status Dates Danuta Araujo ROCK WORKER-C Primary Care Provider Active Marc Giron MD Admit Provider, Attending Provider A ctive Susanna Linn Other Provider Active Loli Cheema , Other Provider Active David Chowdary MD Other Provider Active Keshav Arrington , DO Other Provider Active Chetna Schwarz ANP-BC Other Provider Active Chele Gamino Other Provider Active Mandy Coker , HODAN Other Provider Active Jes Akhtar NP-C Other Provider Active Cris Goodman APRN-CERTIFIED INCOME TAX PREPARER-C Other Provider Active 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 Relationship Specialty Start Date End Date Irvin Cervantes MD [address] [place] [facility] [place] [address] Referring Family Medicine 03/15/23 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 Relationship Specialty Start Date End Date Irvin Cervantes MD [address] [place] [facility] [place] [address] Referring Family Medicine 03/15/23 Cris Goodman [address] [place] [address] Referring 05/02/23 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 Relationship Specialty Start Date End Date Irvin Cervantes MD [address] [place] [facility] [place] [address] Referring Family Medicine 03/15/23 Cris Goodman [address] [place] [address] Referring 05/02/23 Team Status: Active Member Role [...] December 11, 2023 End: December 11, 2023 [employer] 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 Relationship Specialty Start Date End Date Nicole Soares MD [address] [place] [address] PCP - General Family Medicine 08/07/16 Team Status: Inactive Member Role Status Dates Sarah Henao MD Attending Provider Active Sta rt: January 31, 2025 End: January 31, 2025 Source Comments (unrecognize d section and content) In the event this informatio n is protected by the Federal Confidentiality of Alcohol and Drug Abuse Patient Records regulations: The Federal rules restrict any use of the information to criminally investigate or prosecute any alcohol or drug abuse patient.[facility] the event this information is protected by the Federal Confidentiality of Alcohol and Drug Abuse Patient Records regulations: The Federal rules restrict any use of the information to criminally investigate or prosecute any alcohol or drug abuse patient.[facility] the event this information is protected by the Federal Confidentiality of Alcohol and Drug Abuse Patient Records regulations: The Federal rules restrict any use of the information to criminally investigate or prosecute any alcohol or drug abuse patient.[facility] the event this information is protected by the Federal Confidentiality of Alcohol and Drug Abuse Patient Records regulations: The Federal rules restrict any use of the information to criminally investigate or prosecute any alcohol or drug abuse patient.[facility] Reason for Visit (unrecogniz ed section and content) Reason Comments Appointment Reason Comments Consult My hands and my feet feel like rocks Stiff Especially feetFeels like standing on hot coals Like feet are on fire Sometimes shooting pains Specialty Diagnoses / Procedures Referred By Chris limon Referred To Contact Neurology Diagnoses Neuropathy Procedures CONSULT TO NEUROLOGY OFFICE/OUTPATIENT [facility] 60-74 MINUTES Jeannie Jarvis, MANAGER INCOME TAX.LOG TRUCK DRIVER [address] [place] [address] Referral ID Status Reason Start Date Expiration Date V isits Requested Visits Authorized [id number] Closed PCP Requested Referral 04/12/2023 04/11/2024 1 1 Reason Comments advanced hepatic fibrosis Reason Comments Edema Leg Swelling Per patient she noti vanda white scattered spots to bilateral lower extremities. Recent biopsy to left forearm. Complains about polyneuropathy. Specialty Diagnoses / Procedures Referred By Chris limon Referred To Contact Vascular Surgery Diagnoses Vascular insufficiency Danuta Araujo, MANAGER INCOME TAX-LOG TRUCK DRIVER [address] [place] [address] Maddie Lopez MD [address] [place] [address] Referral ID Status Reason Start Date Expiration Date Visits Requested Visits Authorized [id number] Pending Review Specialty Services Required 3 06/13/2024 [...] BE BASED ON THE PRIMARY CLINICAL RECORDS. [facility]. provides no warranty or guarantee of the accuracy or completeness of information in this document.
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
== END 2025-02-02 22:45 | disposition left against medical advice (07) ==
PROVIDERS: Emergency Provider Emergency Medicine; PCP Nurse Practitioner Family
DX: Z53.29 Procedure and treatment not carried out because of patient's decision for other reasons (principal); R30.0 Dysuria; F19.90 Other psychoactive substance use, unspecified, uncomplicated
CPT/HCPCS: 80048; 80307; 80320; 83690; 83735; 84703; 99281

== ENCOUNTER 2025-02-04 19:16 | Emergency (ER) | payer OTHER, SELFPAY ==
--- OUTSIDE RECORDS SUMMARY | 2023-05-13 10:00 | XMS_ITS | Continuity of Care Document ---
Author Organization [facility] Address [address] [place] [address] Phone Care Team Providers Care Plant Cytologist Name Role Phone Scottie MARILINRon Unavailable Unavailable Allergies, Adverse Reactions, Alerts Substance Reaction Status Criticality Penicillins Hives/Skin Rash Active No Informati on Medications Medication Instructions Dosage Effective Dates (start - stop) Status Comments gabapentin 300 mg capsule take 1 capsule by oral route 2 times every day 300 MG - Active Cymbalta 20 mg capsule,delayed release take 1 capsule by oral route 2 times every day - Active Kapspargo Sprinkle 25 mg capsule,extended release take 1 capsule by oral route 2 times every day 25 MG - Active ibuprofen 200 mg capsule take 1 capsule by oral route every 6 hours as needed 200 MG - Active doxycycline hyclate 75 mg tablet take 2 tablet by oral route 2 times every day 150 MG - No Longer Active Procedures Procedure Date Intraoral-complete Series (bw) Periodic Oral Eval Estab Patient 2022 Bitewings Four Films Prophylaxis Adult Oral Hygiene Instruction Periodic Oral Eval Estab Patient 2020 Intraoral-complete Series (bw) 17 Comp Oral Eval New/estab Patient 2016 High Risk Oral Hygiene Instruction Advance Directives Directive Yes / No Effective Date File Name No Information Encounters Encounter Description Practice Location Reason(s) For Visit Diagnoses Date Provider Providers Copied on Encounter [facility], [address] [place] [address], [id number], [place] tel:[phone] Dental Clinic dn (chief complaint) Encounter for screening for dental disorders 3 Scottie DMD Ron. [address], [place], [id number], [place]. tel:[phone] 23 [facility], [address], [place], [id number], [place] tel:[phone] Dental Clinic prophy (chief complaint) Encounter for screening for dental disorders 1 Jose Maria FINE Johnny. [address] [place], [address], [place]. tel:[phone] 23 [facility], [address] [place] [address], [id number], [place] tel:[phone] Dental Clinic Dental new (chief complaint) Encounter for screening for dental disorders 7 Branjim DMD [place]. [address] [place], [address], [place]. tel:[phone] Family History Family Member Type Diagnosis Age At Onset Father Problem (finding) Alive and well Mother Problem (finding) Alive and well Payers Payer name Insurance type Covered libertarian ID Authoriza tion(s) D [employer] [facility] [id number] D Medicaid [facility] [id number] Social History Type Description Quantity Date Captured Comments Alcohol Use Details Unknown Caffeine Use Details Unknown Tobacco Use Status Occasional cigarette smoker Smoking Status Heavy tobacco smoker Sex Female Sexual Orientation Straight or heterosexual Gender Identity Female Chief Complaint And Reason For Visit From encounter dated '05/13/2023 14:00'. dn (chief complaint). Description: dn Reason For Referral Reason For Referral No Information Plan Of Treatment Date Type Action Status Goal Depression screening. Due on due Goal Influenza vaccine. Due on Oc due Goal RLP. Due on due Oct-23-2023 Goal PAP. Due on due Goal PRAPARE ASSESSMENT. Due on O due Goal Tdap. Due on due Goal Hep A. Due on du e Goal Tdap Vaccine. Due on 2022 due Goal Hepatitis C screening. Due o n due Goal Unhealthy drug use screening . Due on due History Of Present Illness Encounter Date Complaint History Of Prese nt Illness dn dn prophy prophy Dental new Dental New Functional Status Date Functional Assessmen t No Information Instructions Date Instruction Additional Infor mation No Information Assessments Type Assessment Date No Information Patient Care Teams Name Effective Dates (start - stop) Status Members No Information
--- OUTSIDE RECORDS SUMMARY | 2024-08-17 09:12 | XMS_ITS ---
Author Organization [facility] in [place] Address [address] [place] [address] Care Team Providers Care Claim Specialist Name Role Phone Danuta Longoria Primary Care Provider [phone] REASON FOR VISIT rf gabapentin- COMING TO SIGN CSA Medications Medication SIG (Take, Route, Fr equency, Duration) Notes Start Date End Date Status Gabapentin 300 MG TAKE 2 CAPSULES BY M OUTH 3 TIMES A DAY for 30 Active Encounters Encounter Location Date Provider Diagnosis [facility] [address] [place] [address] 08/17/2024 Danuta Longoria Polyneuropathy, unspecified G62.9 Assessments Encounter Date Diagnosis (ICD Code) Assessment Notes Treatment Notes Treatment Clinical Notes Section Notes 08/17/2024 Polyneuropathy, unspecified (ICD-10 - G62.9) Plan Of Treatment Medication Medication Name Sig Start Date Stop Date Notes Gabapentin 300 MG TAKE 2 CAPSULES BY M OUTH 3 TIMES A DAY for 30 Progress Notes * Leelee STOUT MDOB: 6 (28 yo F)Acc No.[id number]:08/17/2024 Patient: Avelina Leelee WILDER :1995 A ge:28 Y S ex:Female Address:[address] [place] [address], [address] * Refills Refill Gabapentin Capsule, 300 MG, 180 Capsule, TAKE 2 CAPSULES BY MOUTH 3 TIMES A DAY, 30, Refills=0 Subjective: * Chief Complaints: * r f gabapentin- COMING TO SIGN CSA * Medical History: * Surgical History: * Hospitalization/Major Diagno stic Procedure: * Medications: Objective: * Vitals: * Physical Examination: Assessment: * Assessment: 1. P olyneuropathy, unspecified - G62.9 Plan: * Treatment: * Procedure Codes: * true * Date: Generated for Bridget fraser/Odalis/Jamesitting on: 0 02/04/2025 07:57 PM EDT
--- OUTSIDE RECORDS SUMMARY | 2024-09-10 06:00 | XMS_ITS ---
Author Organization [facility] in [place] Address [address] [place] [address] Care Team Providers Care Hand Cigar Making Supervisor Name Role Phone Danuta Longoria Primary Care Provider REASON FOR VISIT 6mon Encounters Encounter Location Date Provider Diagnosis [facility] [address] [place] [address] 09/10/2024 Danuta Longoria Plan Of Treatment No Information Progress Notes * Leelee NIETO MDOB: 6 (29 yo F)Acc No.[id number]:09/10/2024 UNLOCKED PROGRESS NOTE Progress Note Patient: Louis VINSONn Olivia Provider: Lata Longoria CNP (TTC) :1995 A ge:28 Y S ex:Female Date:09/10/2024 Address:[address] [place], [place] [id number] Subjective: * Chief Complaints: * 1 . 6mon. * Medical History: Objective: * Vitals: Assessment: Plan: * Treatment: * * Electronic signature of Isidra Harper NP, MAIL CALLER.DIGITAL STRATEGY MANAGER.[id number] on 02/04/2025 at 07:57 PM EDT Sign off status: Pending Visit Status: N /S N/C (No Show/No Charge) * Provider: Lata Longoria CNP (TTC) Date: 09/10/2024 Generated for Printi ng/Faxing/eTransmitting on: 02/04/2025 07:57 PM EDT
--- OUTSIDE RECORDS SUMMARY | 2024-10-09 04:31 | XMS_ITS ---
Author Organization [facility] in [place] Address [address] [place] [address] Care Team Providers Care Historiographer Name Role Phone Danuta Longoria Primary Care Provider [phone] REASON FOR VISIT DOA- LMTCB X 3 Encounters Encounter Location Date Provider Diagnosis [facility] [address] [place] [address] 10/09/2024 Danuta Longoria Plan Of Treatment No Information Progress Notes * Leelee NIETO MDOB: 6 (28 yo F)Acc No.[id number]:10/09/2024 Patient: Avelina Leelee WILDER :1995 A ge:28 Y S ex:Female Address:[address] [place] [address], [address] * true * Date: Generated for Printi ng/Fareynag/eTransmitting on: 0 02/04/2025 07:56 PM EDT
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
[2025-02-04 19:19] VITALS: BP 119/75; PULSE 106; TEMP 37.5; O2SAT 96; BMI 24.8
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
--- OUTSIDE RECORDS SUMMARY | 2025-02-04 19:57 | XMS_ITS | Clinical Summary ---
Author Organization [employer] Address [id number] [address] [place] [address] Care Team Providers Care Silviculture Teacher Name Role Phone Tea Soares MD Primary Care Provider [phone] Allergies Active Allergy Reactions Criticality Noted Date [...] exists Medical Devices [place] [address] [employer] Care Teams Silviculture Teacher Relationship Specialty Start Date End Date Tea Soares MD PCP - General Family Medicine 08/07/16
--- OUTSIDE RECORDS SUMMARY | 2025-02-04 19:57 | XMS_ITS | Clinical Summary ---
Author Organization [facility] Address [address] [place] [id number] Care Team Providers Care Vulcan Crewmember Name Role Phone Irivn Cervantes MD Unavailable [phone] Cris Goodman APRN Unavailable [phone] Danuta Longoria CNP Primary Care Provider [...] is lower risk 4 08/08/2023 Data from: https://www.neighborhoodatlas.medicine.[facility].edu/. Last address used for calculation [address] [facility] 08/08/2023 Comments No Sex and Gender [...] IA Negative Negative 04/12/2023 10:02 PM EDT [facility] Comment:The result suggests no evidence of active infection with Hepatitis C virus. Should recent infection be suspected, repeat testing may be considered 4-6 weeks after this draw. Blood BLOOD SPECIMEN / Unknown Venipuncture / Unknown 04/12/2023 2:53 PM EDT 04/12/2023 2:53 PM EDT us Jeannie Guzman APRN.POLITICAL THEORY PROFESSOR LABORATORY Fi nal Result [facility] [address] [place] [address], from Last 3 Months or Most Recently Relevant to Health Maintenance Insurance [employer] [facility] MEDICAID Care Teams Vulcan Crewmember Relationship Specialty Start Date End Date Danuta Longoria CNP [address] [place], [place] [id number] [phone] PCP - General Internal Medicine 08/08/23 Irvin Cervantes MD [address] [place], [place] [id number] [phone] Referring Family Medicine 03/15/23 Cris Goodman APRN [id number] [place] [id number] Referring 05/02/23
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
--- OUTSIDE RECORDS SUMMARY | 2025-02-04 19:57 | XMS_ITS | Encounter Summary ---
Author Organization [facility] Address [address] [place] [facility] [place] [address] Care Team Providers Care Lab Scientist Name Role Phone Unavailable Primary Care Provider Unavailabl e Encounter Details Date Type Department Care Team (Late st Contact Info) Description 05/29/2023 Abstract [facility] [address] [place] [address] Domenica Edmonds PA [address] [place], [id number] Social History Tobacco Use Types Packs/Day Years Used Date Smoking Tobacco: Every Day Cigarettes Alcohol Use Standard Drinks/Week Comments Never 0 (1 standard drink = 0.6 oz pur e alcohol) Comments Unknown Sex and Gender Information Value Date Recorded Sex Assigned at Not on file Legal Sex Female 6:56 PM EDT Gender Identity Not on file Sexual Orientation Not on file documented as of this encounter Plan of Treatment Upcoming Encounters Date Type Department Care Team (Late st Contact Info) Description 02/16/2025 2:30 PM EDT Office Visit [facility] [address] [place] [address] Massimo Bright, DO [address] [place], [place] [address] documented as of this encounter Visit Diagnoses Not on filedocumented in this encounter
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
--- OUTSIDE RECORDS SUMMARY | 2025-02-04 19:57 | XMS_ITS | Encounter Summary ---
Author Organization [facility] Address [address] [place] [address] Care Team Providers Care Rapid Outsole Stitcher Name Role Phone Irvin Cervantes MD Unavailable [phone] Cris Goodman APRN Unavailable [phone] Danuta Longoria [employer]ED[employer] HEN SERVICE TECHNICIAN Primary Care Provider + Source Comments In the event this information is protected by the Federal Confidentiality of Alcohol and Drug AbusePatient Records regulations: The Federal rules restrict any use of the information to criminally investigate or prosecute any alcohol or drug abuse patient.[facility] Encounter Details Date Type Department Care Team (Late st Contact Info) Description 07/23/2023 Patient Msg Angio [address] [place] [address] Provider, Cceulalio pre-procedure instructions 07/30 Social History [...] is lower risk 4 01/29/2023 Data from: https://www.neighborhoodatlas.[facility]/. Last address used for calculation [address] 01/29/2023 Comments No Sex and [...] on filedocumented in this encounter Care Teams Rapid Outsole Stitcher Relationship Specialty Start Date End Date Danuta Longoria CNP [address] [place], [place] [address] PCP - General Internal Medicine 08/08/23 Irvin Cervantes MD [address] [place], [place] [id number] [phone] Referring Family Medicine 03/15/23 Cris Goodman APRN [address] [place] [phone] Referring 05/02/23 documented as of this encounter
--- OUTSIDE RECORDS SUMMARY | 2025-02-04 19:57 | XMS_ITS | Encounter Summary ---
Author Organization [facility] Address [address] [place] [address] Care Team Providers Care Electrician Radio Name Role Phone Irvin Cervantes MD Unavailable [phone] Cris Goodman APRN Unavailable [phone] Danuta Longoria [facility] Primary Care Provider + Source Comments In the event this information is protected by the Federal Confidentiality of Alcohol and Drug AbusePatient Records regulations: The Federal rules restrict any use of the information to criminally investigate or prosecute any alcohol or drug abuse patient.[facility] Encounter Details Date Type Department Care Team (Late st Contact Info) Description 07/12/2023 Patient Msg Urology [address] [place], [place] [phone] Provider, Ccf Appointment Scheduled Social History Tobacco [...] is lower risk 4 01/29/2023 Data from: https://www.neighborhoodatlas.[facility]/. Last address used for calculation [address] 01/29/2023 Comments No Sex and [...] on filedocumented in this encounter Care Teams Electrician Radio Relationship Specialty Start Date End Date Danuta Longoria CNP [address] [place], [place] [phone] PCP - General Internal Medicine 08/08/23 Irvin Cervantes MD [address] [place], [place] [address] [phone] Referring Family Medicine 03/15/23 Cris Goodman APRN [address] [place] [phone] Referring 05/02/23 documented as of this encounter
--- OUTSIDE RECORDS SUMMARY | 2025-02-04 19:57 | XMS_ITS | Encounter Summary ---
Author Organization [facility] Address [address] [place] [address] Care Team Providers Care River Driver Name Role Phone Irvin Cervantes MD Unavailable [phone] Cris Goodman APRN Unavailable [phone] Danuta Longoria [facility] Primary Care Provider + Source Comments In the event this information is protected by the Federal Confidentiality of Alcohol and Drug AbusePatient Records regulations: The Federal rules restrict any use of the information to criminally investigate or prosecute any alcohol or drug abuse patient.[facility] Encounter Details Date Type Department Care Team (Late st Contact Info) Description 05/24/2023 Patient Msg Neurology [address] [place] [address] Arsh Orozco MD [address] [place] [address] Follow up Social History Tobacco [...] is lower risk 4 01/29/2023 Data from: https://www.neighborhoodatlas.medicine.[facility].edu/. Last address used for calculation [address] 01/29/2023 Comments No Sex and [...] on filedocumented in this encounter Care Teams River Driver Relationship Specialty Start Date End Date Danuta Longoria CNP [address] [place], [place] [phone] PCP - General Internal Medicine 08/08/23 Irvin Cervantes MD [address] [place], [place] [phone] Referring Family Medicine 03/15/23 Cris Goodman APRN [address] [phone] Referring 05/02/23 documented as of this encounter
--- OUTSIDE RECORDS SUMMARY | 2025-02-04 19:57 | XMS_ITS | Encounter Summary ---
Author Organization [facility] Address [address] [place] [address] Care Team Providers Care Front End Software Developer Name Role Phone Irvin Cervantes MD Unavailable [phone] Cris Goodman APRN Unavailable [phone] Danuta Longoria [facility] Primary Care Provider + Source Comments In the event this information is protected by the Federal Confidentiality of Alcohol and Drug AbusePatient Records regulations: The Federal rules restrict any use of the information to criminally investigate or prosecute any alcohol or drug abuse patient.[facility] Encounter Details Date Type Department Care Team (Late st Contact Info) Description 05/24/2023 Patient Msg Neurology [address] [place] [address] Provider, Ccf from Dr Orozco [...] is lower risk 4 01/29/2023 Data from: https://www.neighborhoodatlas.[facility]/. Last address used for calculation [address] 01/29/2023 Comments No Sex and [...] on filedocumented in this encounter Care Teams Front End Software Developer Relationship Specialty Start Date End Date Danuta Longoria CNP [address] [place], [place] [phone] PCP - General Internal Medicine 08/08/23 Irvin Cervantes MD [address] [place] [address] Referring Family Medicine 03/15/23 Cris Goodman APRN [address] [place] [phone] Referring 05/02/23 documented as of this encounter
--- OUTSIDE RECORDS SUMMARY | 2025-02-04 19:57 | XMS_ITS | Encounter Summary ---
Author Organization [facility] Address [address] [place] [address] Care Team Providers Care Fire Medic Name Role Phone Irvin Cervantes MD Unavailable [phone] Cris Goodman APRN Unavailable [phone] Danuta Longoria [facility] Primary Care Provider + Source Comments In the event this information is protected by the Federal Confidentiality of Alcohol and Drug AbusePatient Records regulations: The Federal rules restrict any use of the information to criminally investigate or prosecute any alcohol or drug abuse patient.[facility] Encounter Details Date Type Department Care Team (Late st Contact Info) Description 05/13/2023 Patient Msg Gastroenterology [address] [id number] Provider, Ccf Appointment reminder Social History Tobacco [...] is lower risk 4 01/29/2023 Data from: https://www.neighborhoodatlas.[facility]/. Last address used for calculation [address] 01/29/2023 Comments No Sex and [...] on filedocumented in this encounter Care Teams Fire Medic Relationship Specialty Start Date End Date Danuta Longoria CNP [address] [place], [place] [phone] PCP - General Internal Medicine 08/08/23 Irvin Cervantes MD [address] [place], [place] [phone] Referring Family Medicine 03/15/23 Cris Goodman APRN [address] [place] [phone] Referring 05/02/23 documented as of this encounter
--- OUTSIDE RECORDS SUMMARY | 2025-02-04 19:57 | XMS_ITS | Clinical Summary ---
Author Organization [facility] Address [address] [place] [address] Care Team Providers Care Direct Mail Coordinator Name Role Phone Danuta Longoria ANDREA Primary Care Provider [phone] Allergies Active Allergy Reactions Criticality Noted Date [...] her last monitor was not received by [employer] Family History Medical History Relation Name Comments [...] 0.6 oz pur e alcohol) quit 04/03/2023 [place] Safety & Environment Answer Date Rec orded [...] to complete this topic Insurance Care Teams Direct Mail Coordinator Relationship Specialty Start Date End Date Danuta Longoria CNP [address] [place] [address] [place] [address] PCP - General Family Medicine 05/08/23
--- OUTSIDE RECORDS SUMMARY | 2025-02-04 19:57 | XMS_ITS | Encounter Summary ---
Author Organization [facility] Address [address] [facility] [place] [address] Care Team Providers Care Type Photography Supervisor Name Role Phone Unavailable Primary Care Provider Unavailabl e Encounter Details Date Type Department Care Team (Late st Contact Info) Description 02/02/2025 Abstract [facility] [address] [place] [address] Massimo Bright, [facility] [place] Marie [place], [facility]11 Social History Tobacco Use Types Packs/Day Years [...] 02/16/2025 2:30 PM EDT Office Visit [facility] [address] [facility] [place] [address] Massimo Bright, [facility] Maria T Martinez, [facility] documented as of this encounter Visit Diagnoses Not on filedocumented in this encounter
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
--- OUTSIDE RECORDS SUMMARY | 2025-02-04 19:57 | XMS_ITS | Encounter Summary ---
Author Organization [facility] Address [address] [place] [address] Care Team Providers Care Dump Operator Name Role Phone Irvin Cervantes MD Unavailable [phone] Cris Goodman APRN Unavailable [phone] Danuta Longoria SENIOR CYTOGENETICS LABORATORY DIRECTOR Primary Care Provider + Source Comments In the event this information is protected by the Federal Confidentiality of Alcohol and Drug AbusePatient Records regulations: The Federal rules restrict any use of the information to criminally investigate or prosecute any alcohol or drug abuse patient.[facility] Encounter Details Date Type Department Care Team (Late st Contact Info) Description 08/29/2023 Patient Msg Angio [address] [place] [address] Provider, Cceulalio Pre procedure Instructions 09/05 Social History Tobacco Use Types Packs/Day Years [...] is lower risk 4 08/08/2023 Data from: https://www.neighborhoodatlas.medicine.[facility].edu/. Last address used for calculation [address] 08/08/2023 Comments No Sex and Gender Information Value Date Recorded Sex Assigned at Not on file Legal Sex Female 8:08 PM EDT Gender Identity Female 05/14/2023 1:13 PM EDT Sexual Orientation Straight 05/14/2023 1: 13 PM EDT documented as of this encounter Plan of Treatment Not on file documented as of this encounter Visit Diagnoses Not on filedocumented in this encounter Care Teams Dump Operator Relationship Specialty Start Date End Date Danuta Longoria CNP [address] [place], [place] [phone] PCP - General Internal Medicine 08/08/23 Irvin Cervantes MD [address] [place], [place] [address] [phone] Referring Family Medicine 03/15/23 Cris Goodman APRN [address] [place] [phone] Referring 05/02/23 documented as of this encounter
--- OUTSIDE RECORDS SUMMARY | 2025-02-04 19:57 | XMS_ITS | Encounter Summary ---
Author Organization [facility] Address [address] [facility] [place] [address] Care Team Providers Care Egg Trayer Name Role Phone Unavailable Primary Care Provider Unavailabl e Encounter Details Date Type Department Care Team (Late st Contact Info) Description 12/24/2022 Abstract [facility] OB [address] [place] [address] Domenica Edmonds PA [address] [facility] [address] [place], [facility] Social History Tobacco Use Types Packs/Day Years Used Date Smoking Tobacco: Never Tobacco Cessation:Counseling Given: Not Answered Alcohol Use Standard Drinks/Week Comments Never 0 [...] 02/16/2025 2:30 PM EDT Office Visit [facility] [address] [place] [address] Massimo Bright, DO [address] [facility] [address] Cindy Martinez, [place] [address] documented as of this encounter Visit Diagnoses Not on filedocumented in this encounter
--- OUTSIDE RECORDS SUMMARY | 2025-02-04 19:57 | XMS_ITS | Clinical Summary ---
Author Organization [facility] Address [address], [address] [place] [address] Care Team Providers Care Senior Instructional Designer Name Role Phone Haven Mayo APRN - ANDREA Primary Care Provider [phone] Social History Tobacco Use Types Packs/Day Years Used Date Smoking Tobacco: Never Assessed Comments Unknown Sex and Gender Information Value Date Recorded Sex Assigned at Not on file Legal Sex Female 3:52 PM EDT Gender Identity Not on file Sexual Orientation Not on file Plan of Treatment Not on file Insurance [employer] Care Teams Senior Instructional Designer Relationship Specialty Start Date End Date Haven Mayo APRN - WINDSURFING INSTRUCTOR [address] [place] [address] PCP - General Specialist 01/26/19
--- OUTSIDE RECORDS SUMMARY | 2025-02-04 20:00 | XMS_ITS | CCD ---
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 chains.kappa.free/Immun oglobulin light chains.lambda.free (S) [Mass ratio] 1.49 0.26-1.65 [facility] Comment on above: Performed at: [address] [id number] Director: Breezy Jones PhD, Phone: [phone] Immunoglobulin light chains. lambda.free [Mass/volume] in Serum or PlasmaOrdered By: Jane Tracey on 11-06-2023 Immunoglobulin light chains.lambda.free [Mass/Vol] 13.8 mg/L 5.7-26.3 [facility] Leukocytes [#/volume] correc antoine for nucleated erythrocytes in Blood by Automated counOrdered By: Jane Tracey on 11-06-2023 WBC corrected for nucl RBC Auto (Bld) [#/Vol] 9.9 10*3/uL 3.8-11.6 [facility] Lymphocytes Auto (Bld) [#/Vo l]Ordered By: Jane Tracey on 11-06-2023 Lymphocytes (Bld) [#/Vol] 2.2 10*3/uL 1.00-4.8 [facility] Lymphocytes/100 WBC Auto (Bl d)Ordered By: Jane Tracey on 11-06-2023 Lymphocytes/100 WBC (Bld) 22.4 % . [facility] MCH Auto (RBC) [Entitic mass ]Ordered By: Jane Tracey on 11-06-2023 MCH (RBC) [Entitic mass] 29.9 pg 24.7-34.3 [facility] MCHC Auto (RBC) [Mass/Vol]Or dered By: Jane Tracey on 11-06-2023 MCHC (RBC) [Mass/Vol] 33.7 g/dL 32.0-35.0 [facility] MCV Auto (RBC) [Entitic vol] Ordered By: Jane Tracey on 11-06-2023 MCV (RBC) [Entitic vol] 88.8 fL 80-100 [facility] Monocytes Auto (Bld) [#/Vol] Ordered By: Jane Tracey on 11-06-2023 Monocytes (Bld) [#/Vol] 0.5 10*3/uL 0.0-0.8 [facility] Monocytes/100 WBC Auto (Bld) Ordered By: Jane Tracey on 11-06-2023 Monocytes/100 WBC (Bld) 5.5 % . [facility] Neutrophils Auto (Bld) [#/Vo l]Ordered By: Jane Tracey on 11-06-2023 Neutrophils (Bld) [#/Vol] 6.8 10*3/uL 1.8-7.7 [facility] Neutrophils/100 WBC Auto (Bl d)Ordered By: valorie Tracey on 11-06-2023 Neutrophils/100 WBC (Bld) 69.1 % . [facility] No Panel InformationOrdered By: Jane Tracey on 11-06-2023 Estimated GFR (CKD-EPI) > 60.0 mL/Min [facility] Creatinine Clearance (Chem 118.57 [facility] Protein Electrophoresis M-Tomas Not observed g/dL Not Observed [facility] Protein Electrophoresis Note See comment . [facility] Comment on above: Protein electrophore sis scan will follow via computer,mail, or director education delivery. Nucleated erythrocytes [Pres ence] in Blood by Automated countOrdered By: Jane Tracey on 11-06-2023 Nucleated RBC Auto Ql (Bld) 0.3 /100{WBC} 0-0.5 [facility] Platelet mean volume Auto (B ld) [Entitic vol]Ordered By: Jane Tracey on 11-06-2023 Platelet mean volume (Bld) [Entitic vol] 8.3 fL 6.3-10.7 [facility] Platelets Auto (Bld) [#/Vol] Ordered By: Jane Tracey on 11-06-2023 Platelets (Bld) [#/Vol] 277 10*3/uL 150-450 [facility] Potassium [Moles/volume] in Serum or PlasmaOrdered By: Jane Tracey on 11-06-2023 Potassium [Moles/Vol] 4.2 mmol/L 3.5-5.1 [facility] Protein [Mass/volume] in Ser um or PlasmaOrdered By: Jane Tracey on 11-06-2023 Protein [Mass/Vol] 7.3 g/dL 6.4-8.9 [facility] Protein [Mass/Vol] 7.2 g/dL 6.0-8.5 [facility] RBC Auto (Bld) [#/Vol]Ordere d By: Jane Tracey on 11-06-2023 RBC (Bld) [#/Vol] 4.62 10*6/uL 3.60-5.00 [facility] Serum globulin measurement ( mass/volume)Ordered By: Jane Tracey on 11-06-2023 Globulin (S) [Mass/Vol] 3.1 g/dL 2.2-3.9 [facility] Serum or plasma albumin/glob ulin mass ratioOrdered By: Jane Tracey on 11-06-2023 Albumin/Globulin [Mass ratio] 1.6 {ratio} [facility] Albumin/Globulin [Mass ratio] 1.3 {ratio} 0.7-1.7 [facility] Serum or plasma alpha 1 glob ulin measurement by electrophoresis (mass/volume)Ordered By: Jane Tracey on 11-06-2023 Alpha 1 globulin Elph [Mass/Vol] 0.2 g/dL 0.0-0.4 [facility] Serum or plasma alpha 2 glob ulin measurement by electrophoresis (mass/volume)Ordered By: Jane Tracey on 11-06-2023 Alpha 2 globulin Elph [Mass/Vol] 0.8 g/dL 0.4-1.0 [facility] Serum or plasma anion gap de terminationOrdered By: Jane Tracey on 11-06-2023 Anion gap [Moles/Vol] 13.2 mmol/L 6.0-15.0 [facility] Serum or plasma beta globuli n measurement by electrophoresis (mass/volume)Ordered By: Jane Tracey on 11-06-2023 Beta globulin Elph [Mass/Vol] 1.1 g/dL 0.7-1.3 [facility] Serum or plasma gamma globul in measurement by electrophoresis (mass/volume)Ordered By: Jane Tracey on 11-06-2023 Gamma globulin Elph [Mass/Vol] 1.0 g/dL 0.4-1.8 [facility] Sodium [Moles/volume] in Ser um or PlasmaOrdered By: Jane Tracey on 11-06-2023 Sodium [Moles/Vol] 136 mmol/L 136-145 [facility] Urea nitrogen [Mass/volume] in Serum or PlasmaOrdered By: Jane Tracey on 11-06-2023 Urea nitrogen [Mass/Vol] 9 mg/dL 7-25 [facility] Vitamin B12 ser/plasOrdered By: Jane Tracey on 11-06-2023 Cobalamin (Vitamin B12) [Mass/Vol] 353 pg/mL 180-914 [facility] WBC Auto (Bld) [#/Vol]Ordere d By: Jane Tracey on 11-06-2023 WBC (Bld) [#/Vol] 9.9 10*3/uL 3.8-11.6 [facility] BRIEF OP NOTon 09-05-2023 BRIEF OP NOT HNO ID: [id number] Author: SHIV HOLMAN MD Service: Radiology Author Type: Physician Type: Brief Op Note Filed: 09/05/2023 18:09 Note Text: Transjugular liver biopsy Please see dictated report under the Imaging tab in Chart Review. Shiv Holman MD Staff, Interventional Radiology Pager: [phone] 09/05/2023 6:09 PM Normal [facility] CBC W Auto Differential pane l (Bld)on 09-05-2023 Basophils (Bld) [#/Vol] 0.09 10*3/uL Normal <0.11 [facility] Comment on above: Order Comment: Speci men Type: BLOOD SPECIMEN Ordering Facility: [facility] Address: [address] [place] [address] Performed By: #### 3 4528-0 #### [facility] CLIA [id number] [address] [place] [address] [place] Basophils/100 WBC (Bld) 1.2 % Normal [facility] Comment on above: Order Comment: Speci men Type: BLOOD SPECIMEN Ordering Facility: [facility] Address: [address] [place] [address] Performed By: #### 3 4528-0 #### [facility] CLIA [id number] [address] [place] [address] [place] Differential cell count method Nom (Bld) Auto Normal [facility] Comment on above: Order Comment: Speci men Type: BLOOD SPECIMEN Ordering Facility: [facility] Address: [address] [place] [address] Performed By: #### 3 4528-0 #### [facility] CLIA [id number] [address] [place] [address] [place] Eosinophils (Bld) [#/Vol] 0.20 10*3/uL Normal <0.46 [facility] Comment on above: Order Comment: Speci men Type: BLOOD SPECIMEN Ordering Facility: [facility] Address: [address] Performed By: #### 3 4528-0 #### [facility] CLIA [id number] [address] [place] [address] [place] Eosinophils/100 WBC (Bld) 2.7 % Normal [facility] Comment on above: Order Comment: Speci men Type: BLOOD SPECIMEN Ordering Facility: [facility] Address: [address] Performed By: #### 3 4528-0 #### [facility] CLIA [id number] [address] [place] [address] [place] Erythrocyte distribution width (RBC) [Ratio] 12.3 % Normal 11.5-15.0 [facility] Comment on above: Order Comment: Speci men Type: BLOOD SPECIMEN Ordering Facility: [facility] Address: [address] Performed By: #### 3 4528-0 #### [facility] CLIA [id number] [address] [place] [address] [place] Hematocrit (Bld) [Volume fraction] 44.9 % Normal 36.0-46.0 [facility] Comment on above: Order Comment: Speci men Type: BLOOD SPECIMEN Ordering Facility: [facility] Address: [address] Performed By: #### 3 4528-0 #### [facility] CLIA [id number] [address] [place] [address] [place] Hemoglobin (Bld) [Mass/Vol] 14.6 g/dL Normal 11.5-15.5 [facility] Comment on above: Order Comment: Speci men Type: BLOOD SPECIMEN Ordering Facility: [facility] Address: [address] [place], [place] [address] Performed By: #### 3 4528-0 #### [facility] CLIA [id number] [address] [place] [address] [place] Immature granulocytes (Bld) [#/Vol] 0.03 10*3/uL Normal <0.10 [facility] Comment on above: Order Comment: Speci men Type: BLOOD SPECIMEN Ordering Facility: [facility] Address: [address] Performed By: #### 3 4528-0 #### [facility] CLIA [id number] [address] [place] Immature granulocytes/100 WBC (Bld) 0.4 % Normal [facility] Comment on above: Order Comment: Speci men Type: BLOOD SPECIMEN Ordering Facility: [facility] Address: [address] Performed By: #### 3 4528-0 #### [facility] CLIA [id number] [address] [place] [address] [place] Lymphocytes (Bld) [#/Vol] 2.00 10*3/uL Normal 1.00-4.00 [facility] Comment on above: Order Comment: Speci men Type: BLOOD SPECIMEN Ordering Facility: [facility] Address: [address] Performed By: #### 3 4528-0 #### [facility] CLIA [id number] [address] [place] [address] [place] Lymphocytes/100 WBC (Bld) 27.2 % Normal [facility] Comment on above: Order Comment: Speci men Type: BLOOD SPECIMEN Ordering Facility: [facility] Address: [address] [place] [address] Performed By: #### 3 4528-0 #### [facility] CLIA [id number] [address] [place] [address] [place] MCH (RBC) [Entitic mass] 31.5 pg Normal 26.0-34.0 [facility] Comment on above: Order Comment: Speci men Type: BLOOD SPECIMEN Ordering Facility: [facility] Address: [address] [place] [address] Performed By: #### 3 4528-0 #### [facility] CLIA [id number] [address] [place] MCHC (RBC) [Mass/Vol] 32.5 g/dL Normal 30.5-36.0 [facility] Comment on above: Order Comment: Speci men Type: BLOOD SPECIMEN Ordering Facility: [facility] Address: [address] [place] [address] Performed By: #### 3 4528-0 #### [facility] CLIA [id number] [facility] [address] [place] MCV (RBC) [Entitic vol] 97.0 fL Normal 80.0-100.0 C [facility] Comment on above: Order Comment: Speci men Type: BLOOD SPECIMEN Ordering Facility: [facility] Address: [address] [place], [place] [address] Performed By: #### 3 4528-0 #### [facility] CLIA [id number] [address] [place] [address] [place] Monocytes (Bld) [#/Vol] 0.35 10*3/uL Normal <0.87 [facility] Comment on above: Order Comment: Speci men Type: BLOOD SPECIMEN Ordering Facility: [facility] Address: [address] [place], [place] [address] Performed By: #### 3 4528-0 #### [facility] CLIA [id number] [address] [place] Monocytes/100 WBC (Bld) 4.8 % Normal C [facility] Comment on above: Order Comment: Speci men Type: BLOOD SPECIMEN Ordering Facility: [facility] Address: [address] Performed By: #### 3 4528-0 #### [facility] CLIA [id number] [address] [place] [address] [place] Neutrophils (Bld) [#/Vol] 4.69 10*3/uL Normal 1.45-7.50 [facility] Comment on above: Order Comment: Speci men Type: BLOOD SPECIMEN Ordering Facility: [facility] Address: [address] [place] [address] Performed By: #### 3 4528-0 #### [facility] CLIA [id number] [address] [place] [address] [place] Neutrophils/100 WBC (Bld) 63.7 % Normal [facility] Comment on above: Order Comment: Speci men Type: BLOOD SPECIMEN Ordering Facility: [facility] Address: [address] Performed By: #### 3 4528-0 #### [facility] CLIA [id number] [address] [place] [address] [place] Nucleated RBC (Bld) [#/Vol] 10*3/uL Normal <0.01 [facility] Comment on above: Order Comment: Speci men Type: BLOOD SPECIMEN Ordering Facility: [facility] Address: [address] Performed By: #### 3 4528-0 #### [facility] CLIA [id number] [address] [place] [address] [place] Nucleated RBC/100 WBC (Bld) [Ratio] 0.0 /100 WBC Normal [facility] Comment on above: Order Comment: Speci men Type: BLOOD SPECIMEN Ordering Facility: [facility] Address: [address] [place], [place] [address] Performed By: #### 3 4528-0 #### [facility] CLIA [id number] [address] [place] [address] [place] Platelet mean volume (Bld) [Entitic vol] 9.8 fL Normal 9.0-12.7 [facility] Comment on above: Order Comment: Speci men Type: BLOOD SPECIMEN Ordering Facility: [facility] Address: [address] [place] [address] Performed By: #### 3 4528-0 #### [facility] CLIA [id number] [address] [place] [address] [place] Platelets (Bld) [#/Vol] 356 10*3/uL Normal 150-400 [facility] Comment on above: Order Comment: Speci men Type: BLOOD SPECIMEN Ordering Facility: [facility] Address: [address] [place] [address] Performed By: #### 3 4528-0 #### [facility] CLIA [id number] [address] [place] [address] [place] RBC (Bld) [#/Vol] 4.63 10*6/uL Normal 3.90-5.20 [facility] Comment on above: Order Comment: Speci men Type: BLOOD SPECIMEN Ordering Facility: [facility] Address: [address] [place], [place] [address] Performed By: #### 3 4528-0 #### [facility] CLIA [id number] [address] [place] [address] [place] WBC (Bld) [#/Vol] 7.36 10*3/uL Normal 3.70-11.00 [facility] Comment on above: Order Comment: Speci men Type: BLOOD SPECIMEN Ordering Facility: [facility] Address: [address] [place], [place] [address] Performed By: #### 3 4528-0 #### [facility] CLIA [id number] [address] [place] [address] [place] Comprehensive metabolic 2000 panelon 09-05-2023 Albumin [Mass/Vol] 4.7 g/dL Normal 3.9-4.9 [facility] Comment on above: Order Comment: Speci men Type: BLOOD SPECIMENOrdering Facility: [facility] Address: [address] [place] [address] Performed By: #### 2 4323-8 ####[facility] [id number] [place] [address] [place] ALP [Catalytic activity/Vol] 57 U/L Normal 34-123 [facility] Comment on above: Order Comment: Speci men Type: BLOOD SPECIMENOrdering Facility: [facility] Address: [address] [place] [address] Performed By: #### 2 4323-8 ####[facility] [id number] [place] [address] [place] ALT [Catalytic activity/Vol] 20 U/L Normal 7-38 [facility] Comment on above: Order Comment: Speci men Type: BLOOD SPECIMENOrdering Facility: [facility] Address: [address] [place] [address] Performed By: #### 2 4323-8 ####[facility] [id number] [place] [address] [place] Anion gap [Moles/Vol] 10 mmol/L Normal 9-18 [facility] Comment on above: Order Comment: Speci men Type: BLOOD SPECIMENOrdering Facility: [facility] Address: [address] [place] [address] Performed By: #### 2 4323-8 ####[facility] [id number] [place] [address] [place] AST [Catalytic activity/Vol] 21 U/L Normal 13-35 [facility] Comment on above: Order Comment: Speci men Type: BLOOD SPECIMENOrdering Facility: [facility] Address: [address] [place] [address] Performed By: #### 2 4323-8 ####[facility] [id number] [place] [address] [place] Bilirubin [Mass/Vol] 0.4 mg/dL Normal 0.2-1.3 [facility] Comment on above: Order Comment: Speci men Type: BLOOD SPECIMENOrdering Facility: [facility] Address: [address] [place] [address] Performed By: #### 2 4323-8 ####[facility] [id number] [place] [address] [place] Calcium [Mass/Vol] 10.3 mg/dL High 8.5-10.2 [facility] Comment on above: Order Comment: Speci men Type: BLOOD SPECIMENOrdering Facility: [facility] Address: [address] [place] [address] Performed By: #### 2 4323-8 ####[facility] [id number] [place] [address] [place] Chloride [Moles/Vol] 104 mmol/L Normal 97-105 [facility] Comment on above: Order Comment: Speci men Type: BLOOD SPECIMENOrdering Facility: [facility] Address: [address] [place] [address] Performed By: #### 2 4323-8 ####[facility] [id number] [place] [address] [place] CO2 [Moles/Vol] 25 mmol/L Normal 22-30 [facility] Comment on above: Order Comment: Speci men Type: BLOOD SPECIMENOrdering Facility: [facility] Address: [address] [place] [address] Performed By: #### 2 4323-8 ####[facility] [id number] [place] [address] [place] Creatinine [Mass/Vol] 0.66 mg/dL Normal 0.58-0.96 [facility] Comment on above: Order Comment: Jim etienne Type: BLOOD SPECIMENOrdering Facility: [facility] Address: [address] [place] [address] Performed By: #### 2 4323-8 ####[facility] [id number] [place] [address] [place] Creatinine and Glomerular filtration rate.predicted panel (S/P/Bld) 123 mL/min/1.73m??? Normal >=60 [facility] Comment on above: Order Comment: Jim etienne Type: BLOOD SPECIMENOrdering Facility: [facility] Address: [address] [place] [address] Result Comment: Ebony mated Glomerular Filtration Rate [...] actual GFR. Performed By: #### 2 4323-8 ####[facility] [id number] [place] [address] [place] Glucose [Mass/Vol] 105 mg/dL High 74-99 [facility] Comment on above: Order Comment: Jim etienne Type: BLOOD SPECIMENOrdering Facility: [facility] Address: [address] [place] [address] Result Comment: The [place] [employer] (ADA) provides guidance for cutoff [...] Standards of Medical Care in Diabetes 2016, [place] [employer]. Diabetes Care. 2016.39(Suppl 1). Performed By: #### 2 4323-8 ####[facility] [id number] [place] [address] [place] Potassium [Moles/Vol] 4.7 mmol/L Normal 3.7-5.1 [facility] Comment on above: Order Comment: Speci men Type: BLOOD SPECIMENOrdering Facility: [facility] Address: [address] [place] [address] Performed By: #### 2 4323-8 ####[facility] LABCLIA [id number] [place] [address] [place] Protein [Mass/Vol] 8.0 g/dL Normal 6.3-8.0 [facility] Comment on above: Order Comment: Speci men Type: BLOOD SPECIMENOrdering Facility: [facility] [facility] Address: [address] [place] [address] Performed By: #### 2 4323-8 ####[facility] LABCLIA [id number] [place] [address] [place] Sodium [Moles/Vol] 139 mmol/L Normal 136-144 [facility] Comment on above: Order Comment: Speci men Type: BLOOD SPECIMENOrdering Facility: [facility] Address: [address] [place] [address] Performed By: #### 2 4323-8 ####[facility] LABCLIA [id number] [place] [id number] [place] Urea nitrogen [Mass/Vol] 7 mg/dL Normal 7-21 [facility] Comment on above: Order Comment: Speci men Type: BLOOD SPECIMENOrdering Facility: [facility] Address: [address] [place] [address] Performed By: #### 2 4323-8 ####[facility] LABCLIA [id number] [address] [address] [place] HISTORY PHYSICALon HISTORY PHYSICAL HNO ID: [id number] Author: SHIV HOLMAN MD Service: Radiology Author [...] September 05, 2023 TIME: 4:30 PM Normal [facility] IR TRANSJUG LIVER BX W/PRESS on 09-05-2023 IR TRANSJUG LIVER BX W/PRESS * * *Final Report* * * DATE OF EXAM: Sep 05 2023 5:37PM [facility] 0808 - IR TRANSJUG LIVER BX [...] performed by the attending radiologist, without an language assistant. The attending radiologist performed the following procedural activities: Entire procedure IMPRESSION: TRANSJUGULAR LIVER BIOPSY OBTAINED. THE CORRECTED (more content not included)... Normal [facility] NURSING PROGon 09-05-2023 NURSING PROG HNO ID: [id number] Author: JASMYN VAZQUEZ RN Service: ? Author Type: Registered Nurse Type: Nursing Progress Note Filed: 09/05/2023 19:56 Note Text: 1939 Dr. Kern at bedside to assess pt. Abd soft, no c/o pain. Ok to d/c at 1999. Jasmyn Vazquez RN Normal [facility] PT EDon 09-05-2023 PT ED HNO ID: [id number] Author: ETHAN MASON RN Service: Nursing Author Type: Registered [...] None REFERRAL (RECOMMENDATION): None Electronically Signed By: Ethan Mason RN In Department: [facility] [id number] Normal [facility] PT panel Coag (PPP)on 2023 INR Coag (PPP) [Relative time] 1.0 {INR} Normal 0.9-1.3 [facility] Comment on above: Order Comment: Jim etienne Type: BLOOD SPECIMEN Ordering Facility: [facility] Address: [address] [place] [address] Result Comment: Adrienne min K Antagonist (VKA) Therapeutic Range: INR 2 to 3 (Target INR of 2.5) Note: For patients treated with VKA drugs, such as warfarin, the [employer] 2012 Guideline recommends [...] Chest 2012, 141:7S-47S Mamadou RA, et al. [facility] 2017, 70: 252-289 Performed By: #### 3 4528-0 #### [facility] CLIA [id number] [address] [place] [address] [place] PT Coag (PPP) [Time] 10.9 s Normal 9.7-13.0 [facility] Comment on above: Order Comment: Jim etienne Type: BLOOD SPECIMEN Ordering Facility: [facility] Address: [address] [place] [id number] Performed By: #### 3 4528-0 #### [facility] CLIA [id number] [address] [place] [address] [place] NURSING PROGon 08-29-2023 NURSING PROG HNO ID: [id number] Author: MARSHAL POZO RN Service: Nursing Author Type: Registered Nurse Type: Nursing Progress Note Filed: 08/29/2023 10:50 Note Text: Pre-procedure instructions: Contacted Rica and confirmed appt. for TJL Biopsy scheduled on September 05, at [facility]. I will wait while you [...] be drawn prior to 09/05 at any [facility]. If the labs are drawn same day as procedure, please report to J1-4 or S-15, 1 hour prior to arrival time to ensure they are resulted by your scheduled start time. Arrival: Please bring your Photo ID and Insurance Card. A general consent may need to be signed. Arrival at 1:45pm to desk B-1 ([facility]) and check in for your procedure. Anatomic Pathology Assistant/Transportation: How will you be arriving for your procedure? Private car. If you will be arriving at [facility] via ambulance or public transportation, please call to discuss. You will need a responsible adult to accompany you to and from the procedure. Your screw driver operator is required to stay with you until you are taken into the Procedure room. If you develop any of the following symptoms before your procedure, please call [phone]. Chills, joint pain, rash, sore throat, cough, [...] discuss. Written instructions provided to patient via [employer]Soup If you have any questions please call [phone] ___ Normal [facility] CNPNon 08-13-2023 CNPN Telephone ([place]) -------- RICA STOUT ([id number]) 1995 F Date Time Provider Department 08/13/23 [...] Encounter Status:Closed by JOEL NOE on 08/13/23 [facility] CNOVon 08-08-2023 CNOV Office Visit (PATRICK ) -------- RICA STOUT ([id number]) 1995 F Date Time Provider Department 08/08/23 [...] Araujo CNP, Patient's Name: Rica Stout [address] [place] [address] Accompanied by: mother This consult was requested for my medical opinion regarding the rheumatologic evaluation of the patient's rash/+PAT problems, and my final recommendations will be communicated to the requesting health care provider by way of the shared medical record for internal providers or letter via the Currently Postal Service for external providers. 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 PATIENT REPORTS: Cardiac stress test:traffic monitor specialist Breast exam:negative Pap exam: normal, last menses [...] HTN, a.fib;children/sibli (more content not included)... Normal [facility] NURSING PROGon 07-23-2023 NURSING PROG HNO ID: [id number] Author: Dipti Garza, RN Service: Nursing Author Type: Registered Nurse Type: Nursing Progress Note Filed: 07/23/2023 3:49 PM Note Text: Pre-procedure instructions: Contacted Rica and confirmed appt. for transjugular liver biopsy scheduled on Saturday, 07/30, at [facility]. I will wait while you [...] be drawn prior to 07/30 at any [facility]. If the labs are drawn same day as procedure, please report to J1-4 or S-15, 3 hours prior to procedure start time (11:30 AM) to ensure they are resulted by your scheduled start time. Arrival: Please bring your Photo ID and Insurance Card. A general consent may need to be signed. Arrival at 1:00 PM to desk QB-1 ([facility]) and check in for your procedure. Anatomic Pathology Assistant/Transportation: How will you be arriving for your procedure? Private car. If you will be arriving at [facility] via ambulance or public transportation, please call to discuss. You will need a responsible adult to accompany you to and from the procedure. Your screw driver operator is required to stay with you until you are taken into the Procedure room. If you develop any of the following symptoms before your procedure, please call [phone]. Chills, joint pain, rash, sore throat, cough, [...] discuss. Written instructions provided to patient via [employer] If you have any questions please call [phone] ___ Normal [facility] Provider Letteron 07-18-2023 Provider Letter (Inserted Image. Mercedes ble to display) July 18, 2023 RICA STOUT [address] [place] [address] : 1995 Dear Rica, During review of your medical record we noticed that a follow up appointment was not scheduled. We have attempted to reach you to schedule a appointment with [facility]. Please call our office today to schedule this appointment. Sincerely, [facility] [phone] Normal [facility] Office Visiton 07-09-2023 Follow-up visit [id number] Louis Stout 1995 F Date Provider Department Center 07/09/2023 NETTIE MARTE SANTANA [facility] Family History Problem Relation Age of Onset Coronary artery disease Maternal Grandmother Peripheral vascular disease Maternal Grandmother Hypertension Paternal Grandmother Atrial fibrillation Paternal Grandmother Family Status - Relation Status Age at Maternal Grandmother Paternal Grandmother Level of Service:39793 MI OFFICE/OUTPATIENT NEW MODERATE MDM 45 MINUTES Normal [place] IgA [Mass/volume] in Serum o r PlasmaOrdered By: Jane Tracey on 07-03-2023 IgA [Mass/Vol] 473 mg/dL 87-352 [facility] IgG [Mass/volume] in Serum o r PlasmaOrdered By: Jane Tracey on 07-03-2023 IgG [Mass/Vol] 1101 mg/dL 586-1602 [facility] IgM [Mass/volume] in Serum o r PlasmaOrdered By: Jane Tracey on 07-03-2023 IgM [Mass/Vol] 315 mg/dL 26-217 [facility] Comment on above: Performed at: [address] [id number] Director: Breezy Jones PhD, Phone: [phone] No Panel InformationOrdered By: Jane Tracey on 07-03-2023 Serum Immunofixation See comment . [facility] Comment on above: No monoclonality det ected. Whole Blood Zinc 606 ug/dL 440-860 [facility] Comment on above: This test was develo ped and its performance characteristicsdetermined by [facility]. It has not been cleared orapproved by the Food and Drug Administration.Performed at: - [facility] [id number] Director: Lisa Ramos MD, Phone: [phone] Serum cryoglobulin detection Ordered By: Jane Tracey on 07-03-2023 Cryoglobulin Ql (S) See comment None detected [facility] Comment on above: None Detected at 72 hoursThis test was developed and its performance characteristicsdetermined by [employer]. It has not been cleared orapproved by the Food and Drug Administration.Performed at: [facility] [address] [id number] Director: Breezy Joens PhD, Phone: [phone] Activated partial thrombopla stin time (aPTT) in platelet poor plasma by coagulation aOrdered By: Jane Tracey on 06-12-2023 aPTT Coag (PPP) [Time] 28.5 s 25.1-36.5 [facility] Comment on above: A hematocrit value g reater than 55% may lead to inaccurate results in coagulation testing. Patients having hematocrit values >55% require a special collection tube for coagulation studies. Please contact the laboratory at [phone] for redraw instructions. INR in Platelet poor plasma by Coagulation assayOrdered By: Jane Tracey on 06-12-2023 INR Coag (PPP) [Relative time] 1.1 {INR} [facility] Comment on above: INR Therapeutic Rang e A) Pre- and Peroperative OAT started two weeks before surgery. NOT HIP SURGERY: 1.5 - 2.5 HIP SURGERY: 2 - 3B) Primary and secondary prevention of venous THROMBOSIS: 2 - 3C) Active venous thrombosis, pulmonary embolismand prevention of recurrent venous thrombosis: 2 - 3D) Prevention of arterial thromboembolismincluding patients with mechanical heart valves: 3 - 4.5 Platelets Auto (Bld) [#/Vol] Ordered By: Jane Tracey on 06-12-2023 Platelets (Bld) [#/Vol] 269 10*3/uL 150-450 [facility] Prothrombin time (PT)Ordered By: Jane Tracey on 06-12-2023 PT Coag (PPP) [Time] 13.0 s 9.0-12.9 [facility] Comment on above: A hematocrit value g reater than 55% may lead to inaccurate results in coagulation testing. Patients having hematocrit values >55% require a special collection tube for coagulation studies. Please contact the laboratory at [phone] for redraw instructions. Office Visiton 06-10-2023 Follow-up visit [id number] GersonLouis Baker 1995 F Date Provider Department Center 06/10/2023 Janet-MARTHA GRAY [facility] Family History Problem Relation Age of Onset Coronary artery disease Maternal Grandmother Peripheral vascular disease Maternal Grandmother Hypertension Paternal Grandmother Atrial fibrillation Paternal Grandmother Family Status - Relation Status Age at Maternal Grandmother Paternal Grandmother Level of Service:59916 MI OFFICE/OUTPATIENT ESTABLISHED MOD MDM 30-39 MIN Normal [place] Alanine aminotransferase [En zymatic activity/volume] in Serum or PlasmaOrdered By: Jane Tracey on 05-30-2023 ALT [Catalytic activity/Vol] 24 U/L 7-52 [facility] Albumin [Mass/volume] in Ser um or PlasmaOrdered By: Jane Tracey on 05-30-2023 Albumin [Mass/Vol] 4.1 g/dL 2.9-4.4 [facility] Albumin [Mass/volume] in Ser um or Plasma by Bromocresol green (BCG) dye binding methoOrdered By: valorie Tracey on 05-30-2023 Albumin BCG dye [Mass/Vol] 5.2 g/dL 3.5-5.7 [facility] Alkaline phosphatase [Enzyma tic activity/volume] in Serum or PlasmaOrdered By: Jane Tracey on 05-30-2023 ALP [Catalytic activity/Vol] 115 U/L 34-104 [facility] Aspartate aminotransferase [ Enzymatic activity/volume] in Serum or PlasmaOrdered By: Jane Tracey on 05-30-2023 AST [Catalytic activity/Vol] 32 U/L 13-39 [facility] Atypical perinuclear antineu trophil cytoplasmic antibodies measurementOrdered By: Jane Tracey on 05-30-2023 Neutrophil cytoplasmic Ab.perinuclear.atypical IF (S) [Titer] <1:20 titer Neg:<1:20 [facility] Comment on above: The atypical pANCA p attern has been observed in asignificant percentage of patients with ulcerative colitis,primary sclerosing cholangitis and autoimmune hepatitis.Performed at: [place] [id number] [place], [place] [id number] Director: Lisa Ramos MD, Phone: [phone] at: [address] [id number] Director: Breezy Jones PhD, Phone: [phone] Basophils Auto (Bld) [#/Vol] Ordered By: Jane Tracey on 05-30-2023 Basophils (Bld) [#/Vol] 0.2 10*3/uL 0.0-0.2 [facility] Basophils/100 WBC Auto (Bld) Ordered By: Jane Tracey on 05-30-2023 Basophils/100 WBC (Bld) 1.5 % . [facility] Bilirubin.total [Mass/volume ] in Serum or PlasmaOrdered By: Jane Tracey on 05-30-2023 Bilirubin [Mass/Vol] 0.5 mg/dL 0.3-1.0 [facility] Blood lead detectionOrdered By: Jane Tracey on 05-30-2023 Lead Ql (Bld) <1.0 ug/dL 0.0-3.4 [facility] Comment on above: Testing performed by Inductively coupled plasma/MassSpectrometry.Analysis by inductively coupled plasma/massspectrometry (ICP/MS)This test was developed and its performance characteristicsdetermined by [employer]. It has not been cleared orapproved by the Food and Drug Administration. Environmental Exposure: WHO Recommendation <5.0 Occupational Exposure: OSHA Lead Std 40.0 OLIVE 30.0 Detection Limit = 1.0Performed at: [address] [id number] Director: Breezy Jones PhD, Phone: [phone] Calcium [Mass/volume] in Ser um or PlasmaOrdered By: Jane Tracey on 05-30-2023 Calcium [Mass/Vol] 10.4 mg/dL 8.6-10.3 [facility] Carbon dioxide, total [Moles /volume] in Serum or PlasmaOrdered By: Jane Condon on 05-30-2023 CO2 [Moles/Vol] 24.8 mmol/L 21.0-31.0 [facility] Chloride [Moles/volume] in S caitlyn or PlasmaOrdered By: valorie HungRoseanna on 05-30-2023 Chloride [Moles/Vol] 99 mmol/L 98-107 [facility] Creatinine [Mass/volume] in Serum or PlasmaOrdered By: valorie Tracey on 05-30-2023 Creatinine [Mass/Vol] 0.67 mg/dL 0.60-1.20 [facility] Eosinophils Auto (Bld) [#/Vo l]Ordered By: valorie Tracey on 05-30-2023 Eosinophils (Bld) [#/Vol] 0.1 10*3/uL 0.0-0.45 [facility] Eosinophils/100 WBC Auto (Bl d)Ordered By: valorie Tracey on 05-30-2023 Eosinophils/100 WBC (Bld) 0.9 % . [facility] Erythrocyte distribution wid th Auto (RBC) [Ratio]Ordered By: valorie Tracey on 05-30-2023 Erythrocyte distribution width (RBC) [Ratio] 12.8 % 11.9-15.3 [facility] Folate [Mass/volume] in Seru m or PlasmaOrdered By: valorie Tracey on 05-30-2023 Folate [Mass/Vol] 1.3 ng/mL >5.9 [facility] Comment on above: Folate reference ran ge: >5.9 ng/mlThe WHO technical consultation on folate and vitamin [id number] has determined that folate concentrations lessthan 4 ng/ml are considered deficient. Globulin Calc (S) [Mass/Vol] Ordered By: valorie Tracey on 05-30-2023 Globulin (S) [Mass/Vol] 3.8 g/dL [facility] Glucose [Mass/volume] in Ser um or PlasmaOrdered By: valorie Tracey on 05-30-2023 Glucose [Mass/Vol] 97 mg/dL 70-100 [facility] Comment on above: ADA recommended refe rence rangeRandom Glucose Reference Range is dependent on time and content of last meal. Glucose of more than 200 mg/dL in a nonstressed, ambulatory subject supports the diagnosis of Diabetes Mellitus. HIV 1 and HIV-2 antibody ass ay with HIV-1 p24 antigen detectionOrdered By: Jane Tracey on 05-30-2023 HIV 1+2 Ab+HIV1 p24 Ag IA Ql Non-Reactive Non Reactive [facility] Comment on above: HIV NegativeHIV-1/HI V-2 antibodies and HIV-1 p24 antigen were NOTdetected. There is no laboratory evidence of HIV infection.Performed at: [facility] [place] [id number] Director: Breezy Jones PhD, Phone: [phone] Hematocrit Auto (Bld) [Volum e fraction]Ordered By: Jane Tracey on 05-30-2023 Hematocrit (Bld) [Volume fraction] 47.6 % 34.0-46.4 [facility] Hemoglobin [Mass/volume] in BloodOrdered By: Jane Tracey on 05-30-2023 Hemoglobin (Bld) [Mass/Vol] 16.3 g/dL 11.8-15.4 [facility] Hepatitis B virus surface Ag [Presence] in Serum or Plasma by ImmunoassayOrdered By: Jane Tracey on 05-30-2023 HBV surface Ag IA Ql Negative Negative [facility] IgA [Mass/volume] in Serum o r PlasmaOrdered By: Jane Tracey on 05-30-2023 IgA [Mass/Vol] 539 mg/dL 87-352 [facility] IgG [Mass/volume] in Serum o r PlasmaOrdered By: Jane Tracey on 05-30-2023 IgG [Mass/Vol] 1365 mg/dL 586-1602 [facility] IgM [Mass/volume] in Serum o r PlasmaOrdered By: Jane Tracey on 05-30-2023 IgM [Mass/Vol] 352 mg/dL 26-217 [facility] Comment on above: Performed at: [facility] [address] [id number] Director: Breezy Jones PhD, Phone: [phone] Immunoglobulin light chains. kappa.free [Mass/volume] in SerumOrdered By: Jane Tracey on 05-30-2023 Immunoglobulin light chains.kappa.free (S) [Mass/Vol] 20.9 mg/L 3.3-19.4 [facility] Immunoglobulin light chains. kappa.free/Immunoglobulin light chains.lambda.free [MassOrdered By: Jane Tracey on 05-30-2023 Immunoglobulin light chains.kappa.free/Immun oglobulin light chains.lambda.free (S) [Mass ratio] 1.08 0.26-1.65 [facility] Comment on above: Performed at: [address] [id number] Director: Breezy Jones PhD, Phone: [phone] Immunoglobulin light chains. lambda.free [Mass/volume] in Serum or PlasmaOrdered By: Jane Tracey on 05-30-2023 Immunoglobulin light chains.lambda.free [Mass/Vol] 19.4 mg/L 5.7-26.3 [facility] Lactate dehydrogenase [Enzym atic activity/volume] in Serum or Plasma by Lactate to pyOrdered By: Jane Tracey on 05-30-2023 LDH Lactate to pyruvate reaction [Catalytic activity/Vol] 219 U/L 140-271 [facility] Leukocytes [#/volume] correc antoine for nucleated erythrocytes in Blood by Automated counOrdered By: Jane Tracey on 05-30-2023 WBC corrected for nucl RBC Auto (Bld) [#/Vol] 10.1 10*3/uL 3.8-11.6 [facility] Lymphocytes Auto (Bld) [#/Vo l]Ordered By: Jane Tracey on 05-30-2023 Lymphocytes (Bld) [#/Vol] 2.9 10*3/uL 1.00-4.8 [facility] Lymphocytes/100 WBC Auto (Bl d)Ordered By: Jane Tracey on 05-30-2023 Lymphocytes/100 WBC (Bld) 28.7 % . [facility] MCH Auto (RBC) [Entitic mass ]Ordered By: Jane Tracey on 05-30-2023 MCH (RBC) [Entitic mass] 32.5 pg 24.7-34.3 [facility] MCHC Auto (RBC) [Mass/Vol]Or dered By: Jane Tracey on 05-30-2023 MCHC (RBC) [Mass/Vol] 34.2 g/dL 32.0-35.0 [facility] MCV Auto (RBC) [Entitic vol] Ordered By: Jane Tracey on 05-30-2023 MCV (RBC) [Entitic vol] 95.0 fL 80-100 [facility] Magnesium [Mass/volume] in S caitlyn or PlasmaOrdered By: Jane Tracey on 05-30-2023 Magnesium [Mass/Vol] 1.9 mg/dL 1.9-2.7 [facility] Monocyte %Ordered By: Jane Ying on 05-30-2023 Monocyte % 124 ug/dL 80-158 [facility] Comment on above: This test was develo ped and its performance characteristicsdetermined by [employer]. It has not been cleared orapproved by the Food and Drug Administration. Detection Limit = 5Performed at: [facility] [address] [id number] Director: Lisa Ramos MD, Phone: [phone] Monocytes Auto (Bld) [#/Vol] Ordered By: Jane Tracey on 05-30-2023 Monocytes (Bld) [#/Vol] 0.2 10*3/uL 0.0-0.8 [facility] Monocytes/100 WBC Auto (Bld) Ordered By: Jane Tracey on 05-30-2023 Monocytes/100 WBC (Bld) 2.2 % . [facility] Myeloperoxidase Ab [Units/vo lume] in Serum by ImmunoassayOrdered By: aJne Condon on 05-30-2023 Myeloperoxidase Ab IA Qn (S) <0.2 units 0.0-0.9 [facility] Neutrophils Auto (Bld) [#/Vo l]Ordered By: Jane Tracey on 05-30-2023 Neutrophils (Bld) [#/Vol] 6.7 10*3/uL 1.8-7.7 [facility] Neutrophils/100 WBC Auto (Bl d)Ordered By: Jane Tracey on 05-30-2023 Neutrophils/100 WBC (Bld) 66.7 % . [facility] No Panel InformationOrdered By: Jane Tracey on 05-30-2023 Anti-Nuclear Antibody Comment 2 See comment . [facility] Comment on above: Pattern Potential Di sease Association Homogeneous Systemic Lupus Erythematosus, Drug Induced Systemic Lupus Erythematosus, Chronic Autoimmune hepatitis, Juvenile Idiopathic Arthritis Speckled Sjogren Syndrome, Systemic Lupus Erythematosus, Subacute Cutaneous Lupus, Lupus, Congenital Heart Block, Mixed Connective Tissue Disease, Scleroderma-diffuse, Scleroderma-Autoimmune Myositis Overlap Syndrome, Systemic Lupus Umbawmjqvqsjv-Wnboeagyyxx-Krtpsdqrcy Myositis Overlap Syndrome, Systemic Autoimmune Rheumatic Disease, [...] Cytopenias, Linear Scleroderma, Antiphospholipid Syndrome Performed at: [facility] [address] Director: Breezy Jones PhD, Phone: [phone] Estimated GFR (CKD-EPI) > 60.0 mL/Min [facility] Hepatitis B Core IgM Antibody Negative Negative [facility] Comment on above: Performed at: [facility] [facility] [address] [id number] Director: Breezy Jones PhD, Phone: [id number] Perinuclear ANCA (p-ANCA) Antibody <1:20 titer Neg:<1:20 [facility] Comment on above: The presence of posi tive fluorescence exhibiting P-ANCA orC-ANCA patterns alone is not specific for the diagnosis ofWegener's Granulomatosis (WG) or microscopic polyangiitis.Decisions about treatment should not be based solely onANCA IFA results. The International ANCA Group Consensusrecommends follow up testing of positive sera with both MI-3 and MPO-ANCA enzyme immunoassays. As many as 5% serumsamples are positive only by EIA. Ref. AM J Clin Nyqnhs5504;111:507-513. Pharmacy Creatinine Clearance (Chem 108.91 [facility] Protein Electrophoresis M-Tomas Not observed g/dL Not Observed [facility] Protein Electrophoresis Note See comment . [facility] Comment on above: Protein electrophore sis scan will follow via computer,mail, or director education delivery. Serum Immunofixation See comment . [facility] Comment on above: No monoclonality det ected. Nucleated erythrocytes [Pres ence] in Blood by Automated countOrdered By: Jane Tracey on 05-30-2023 Nucleated RBC Auto Ql (Bld) 0.1 /100{WBC} 0-0.5 [facility] Platelet mean volume Auto (B ld) [Entitic vol]Ordered By: Jane Tracey on 05-30-2023 Platelet mean volume (Bld) [Entitic vol] 7.6 fL 6.3-10.7 [facility] Platelets Auto (Bld) [#/Vol] Ordered By: Jane Tracey on 05-30-2023 Platelets (Bld) [#/Vol] 325 10*3/uL 150-450 [facility] Potassium [Moles/volume] in Serum or PlasmaOrdered By: Jane Tracey on 05-30-2023 Potassium [Moles/Vol] 3.4 mmol/L 3.5-5.1 [facility] Protein [Mass/volume] in Ser um or PlasmaOrdered By: Jane Tracey on 05-30-2023 Protein [Mass/Vol] 9.0 g/dL 6.4-8.9 [facility] Protein [Mass/Vol] 8.1 g/dL 6.0-8.5 [facility] Proteinase 3 Ab [Units/volum e] in Serum by ImmunoassayOrdered By: Jane Tracey on 05-30-2023 Proteinase 3 Ab IA Qn (S) <0.2 units 0.0-0.9 [facility] RBC Auto (Bld) [#/Vol]Ordere d By: Jane Tracey on 05-30-2023 RBC (Bld) [#/Vol] 5.00 10*6/uL 3.60-5.00 [facility] Serum angiotensin converting enzyme (SANDRA) measurementOrdered By: Jane Tracey on 05-30-2023 Angiotensin converting enzyme [Catalytic activity/Vol] 61 U/L 14 [facility] Comment on above: Performed at: [address] [id number] Director: Breezy Jones PhD, Phone: [phone] Serum classic neutrophil cyt oplasmic antibody titer by immunofluorescenceOrdered By: Jane Tracey on 05-30-2023 Neutrophil cytoplasmic Ab.classic IF (S) [Titer] <1:20 titer Neg:<1:20 [facility] Serum cryoglobulin detection Ordered By: Jane Tracey on 05-30-2023 Cryoglobulin Ql (S) See comment . [facility] Comment on above: Test not performed. Insufficient specimen to perform orcomplete analysis.contacted your facility on [id number] test was developed and its performance characteristicsdetermined by [employer]. It has not been cleared orapproved by the Food and Drug Administration. Serum globulin measurement ( mass/volume)Ordered By: Jane Tracey on 05-30-2023 Globulin (S) [Mass/Vol] 4.0 g/dL 2.2-3.9 [facility] Serum hepatitis B virus surf sandra antibody detectionOrdered By: Jane Tracey on 05-30-2023 HBV surface Ab Ql (S) Reactive . [facility] Comment on above: Non Reactive: Incons istent with immunity, less than 10 mIU/mL Reactive: Consistent with immunity, greater than 9.9 mIU/mL Serum nuclear antibody titer Ordered By: Jane Tracey on 05-30-2023 Nuclear Ab (S) [Titer] Positive . [facility] Comment on above: Negative <1:80 Borde rline 1:80 Positive >1:80 Serum or plasma albumin/glob ulin mass ratioOrdered By: Jane Tracey on 05-30-2023 Albumin/Globulin [Mass ratio] 1.4 {ratio} [facility] Albumin/Globulin [Mass ratio] 1.0 {ratio} 0.7-1.7 [facility] Serum or plasma alpha 1 glob ulin measurement by electrophoresis (mass/volume)Ordered By: Jane Tracey on 05-30-2023 Alpha 1 globulin Elph [Mass/Vol] 0.2 g/dL 0.0-0.4 [facility] Serum or plasma alpha 2 glob ulin measurement by electrophoresis (mass/volume)Ordered By: Jane Tracey on 05-30-2023 Alpha 2 globulin Elph [Mass/Vol] 1.0 g/dL 0.4-1.0 [facility] Serum or plasma anion gap de terminationOrdered By: Jane Tracey on 05-30-2023 Anion gap [Moles/Vol] 17.6 mmol/L 6.0-15.0 [facility] Serum or plasma beta globuli n measurement by electrophoresis (mass/volume)Ordered By: Jane Tracey on 05-30-2023 Beta globulin Elph [Mass/Vol] 1.3 g/dL 0.7-1.3 [facility] Serum or plasma gamma globul in measurement by electrophoresis (mass/volume)Ordered By: Jane Tracey on 05-30-2023 Gamma globulin Elph [Mass/Vol] 1.5 g/dL 0.4-1.8 [facility] Serum or plasma methylmalona te measurement (moles/volume)Ordered By: Jane Condon on 05-30-2023 Methylmalonate [Moles/Vol] 99 nmol/L 0-378 [facility] Comment on above: This test was develo ped and its performance characteristicsdetermined by [facility]. It has not been cleared orapproved by the Food and Drug Administration.Performed at: - [address] [id number] Director: Lisa Ramos MD, Phone: [phone] Serum or plasma rheumatoid f actor measurement (units/volume)Ordered By: Jane Tracey on 05-30-2023 Rheumatoid factor Qn 10.9 [IU]/mL <14.0 [facility] Comment on above: Performed at: [address] [id number] Director: Breezy Jones PhD, Phone: [phone] Serum speckled pattern antin uclear antibody (PAT) titerOrdered By: Jane Condon on 05-30-2023 Speckled nuclear Ab pattern (S) [Titer] 1:160 . [facility] Comment on above: ICAP nomenclature: A C-2,4,5,29 Sodium [Moles/volume] in Ser um or PlasmaOrdered By: Jane Tracey on 05-30-2023 Sodium [Moles/Vol] 138 mmol/L 136-145 [facility] Urea nitrogen [Mass/volume] in Serum or PlasmaOrdered By: valorie AcevedoSepdarleen on 05-30-2023 Urea nitrogen [Mass/Vol] 9 mg/dL 7-25 [facility] Vitamin B12 ser/plasOrdered By: valorie AcevedoSepdarleen on 05-30-2023 Cobalamin (Vitamin B12) [Mass/Vol] 169 pg/mL 180-914 [facility] WBC Auto (Bld) [#/Vol]Ordere d By: Jane Tracey on 05-30-2023 WBC (Bld) [#/Vol] 10.1 10*3/uL 3.8-11.6 [facility] CNOVon 05-23-2023 CNOV Office Visit (ROSS ) -------- RICA STOUT ([id number]) 1995 F Date Time Provider Department 05/23/23 [...] year old female who presents to the [facility] Neurology clinic with the chief complaint of [...] alcohol. - Laboratory studies. B12. SPEP with RONLAD. - Start nrrj-qsm-hcbxkqg B complex supplementation after laboratory studies. - Trial alpha lipoic acid. Take 600 mg daily. - Follow-up in person in 4 to 6 months. Arsh Orozco MD Staff, [facility] [place] HPI: This is Ms. Rica Stout, a 27 year old female who presents to the [facility] Neurology clinic with the chief complaint of [...] shrug bilater (more content not included)... Normal [facility] Office Visiton 05-08-2023 Follow-up visit [id number] Louis Stout 1995 F Date Provider Department Center 05/08/2023 15[address] [facility] [place] Family History Problem Relation Age of Onset Coronary artery disease Maternal Grandmother Peripheral vascular disease Maternal Grandmother Hypertension Paternal Grandmother Atrial fibrillation Paternal Grandmother Family Status - Relation Status Age at Maternal Grandmother Paternal Grandmother Level of Service:68828 MI OFFICE/OUTPATIENT ESTABLISHED MOD MDM 30-39 MIN Normal [place] A1AT SerPl-mCncon 04-12-2023 Alpha 1 antitrypsin [Mass/Vol] 138 mg/dL Normal 90-200 [facility] Comment on above: Order Comment: Speci men Type: BLOOD SPECIMENOrdering Facility: [facility] Address: [address] [place] [address] Performed By: #### 2 4321-2, 1825-9, 73321-9, 2064-4 ####[facility] LABCLIA [id number] [address] STATES OF [facility] ALPHA 1 ANTITRYP PHEN/GENOTY PEon 04-12-2023 HA1IN Normal [facility] Comment on above: Order Comment: Speci men Type: BLOOD SPECIMEN Ordering Facility: [facility] Address: [address] [place] [address] Result Comment: Alph a 1 Antitrypsin Phenotype and Genotype Laboratory Accession Number: [id number] Result: No Variant Detected in SERPINA1 (PI*MM) [...] two most common pathogenic variants: S (c.863A>T, p.Pxr170Fmi, g.54780946), Z (c.1096G>A, p.Ghe469Bjp, g.26755628), and the rarer variants: F (c.739C>T, p.Wlu256Jtq, g.89389717), I (c.187C>T, p.Opo22Njw, g.09819766). Limitations: This Laboratory Developed Test (LDT) is [...] developed and its performance characteristics determined by [facility]'s [facility] [place] ([facility]). It has not been cleared or approved by the FDA. [facility] is regulated under CLIA as certified to perform high- complexity testing. This test is used for clinical purposes. It should not be regarded as investigational or for research. Testing and interpretation performed at [facility], [address] [place], [place] [address]. CLIA Number: [id number] References: 1) Alok RA, Rodo G, Alicia ML, Valdemar M, Zay CE, K, Martinez ZIMMER, Rodger SL, Benson JM, Esther CabreraK, Placido C, Inocente J. The Diagnosis and Management of Alpha-1 Antritrypsin Deficiency in the Adult. Chronic Obstr Pulm Dis. 2016 Dec 25;3:668-682. 2) Bella JA, Sara ON, Pati ER, Daniel DG. a1-Antitrypsin phenotypes and associated serum protein concentrations in a large clinical population. Chest.2013 Oct;143(4):1000-8. 3) Thu Mike NA, Stephane CR, Bong FJ, Carlos SJ, Christel AF. Molecular characterisation of three xrykw-8-fxvczrbyvgp deficiency variants: proteinase inhibitor (Pi) nullcardiff (Tfa935----Szk); PiMmalton (Opi56----yehcbujk) and PiI (Ksh27----Cgj). Hum Karen. 1989 Jun;84(1):55-8. 4) Nancy EK and Alok NAGEL. Clinical practice. Alpha1-antitrypsin deficiency. N Engl J Med. 2008Jan 13;360(88)8791-43. 5) Jorge NJ, Javier F, Samantha NAGEL. The significance of the F variant of xsyon-7-hwpnlrjwypo and unique case report of a PiFF homozygote. [facility] Pulm Med. 2013Feb 25;14:132. 6) Esther CabreraK, Laisha FL, and Nicolette Mccurdy. Alpha-1 Antitrypsin Deficiency. 2005May 17 [Updated 2017 August 09]. In: Gricelda RA, Chele MP, Iban TO, et al., editors. GeneReviews [Internet]. [place] ([place]): [facility]; 8524-3632. Available from: http://www.ncbi.nlm.nih.gov/books/DSR5862/ As reviewed by Saritha Swan MD Performed By: #### 3 4528-0 #### [facility] CLIA [id number] [address] [place] [address] [place] PAT BY IFA WITH REFLEXon Nuclear Ab pattern (S) [Interp] Nuclear fine speckled Normal [facility] Comment on above: Order Comment: Speci men Type: BLOOD SPECIMEN Ordering Facility: [facility] Address: [address] [place] [address] Performed By: #### 3 4528-0 #### [facility] CLIA [id number] [address] [place] [address] [place] Nuclear Ab Ql (S) Positive Abnormal Negative [facility] Comment on above: Order Comment: Speci men Type: BLOOD SPECIMEN Ordering Facility: [facility] Address: [address] [address] Result Comment: Anti -nuclear antibody test is used as an aid in diagnosis of systemic autoimmune diseases. Where positive and clinically warranted, follow-up using disease-specific testing is recommended. Low positive titers are not uncommon with advanced age, certain chronic infections, and malignancies among others. Test methodology: Indirect fluorescence immunoassay (IFA) using HEp-2 cells. 1:80 Performed By: #### 3 4528-0 #### [facility] CLIA [id number] [address] [place] [address] [place] Basic metabolic 2000 panelon 04-12-2023 Anion gap [Moles/Vol] 18 mmol/L Normal 9-18 [facility] Comment on above: Order Comment: Speci men Type: BLOOD SPECIMENOrdering Facility: [facility] Address: [address] [place] [address] Performed By: #### 2 4321-2, 1825-03, 33942-4, 2063-10 ####[facility] LABCLIA [id number] [place] [address] [place] Calcium [Mass/Vol] 10.3 mg/dL High 8.5-10.2 [facility] Comment on above: Order Comment: Speci men Type: BLOOD SPECIMENOrdering Facility: [facility] Address: [address] Performed By: #### 2 4321-2, 1825-03, 19208-3, 2063-10 ####[facility] LABCLIA [id number] [place] [address] [place] Chloride [Moles/Vol] 100 mmol/L Normal 97-105 [facility] Comment on above: Order Comment: Speci men Type: BLOOD SPECIMENOrdering Facility: [facility] Address: [address] [address] Performed By: #### 2 4321-2, 1825-03, , 2063-10 ####[facility] LABIA [id number] [place] [address] [place] CO2 [Moles/Vol] 20 mmol/L Low 22-30 [facility] Comment on above: Order Comment: Speci men Type: BLOOD SPECIMENOrdering Facility: [facility] Address: [address] [place] [address] Performed By: #### 2 4321-2, 1825-03, , 2063-10 ####[facility] LABIA [id number] [place] [address] [place] Creatinine [Mass/Vol] 0.43 mg/dL Low 0.58-0.96 [facility] Comment on above: Order Comment: Speci men Type: BLOOD SPECIMENOrdering Facility: [facility] Address: [address] [place] [address] Performed By: #### 2 4321-2, 1825-03, , 2063-10 ####[facility] [id number] [place] [address] [place] Creatinine and Glomerular filtration rate.predicted panel (S/P/Bld) 137 mL/min/1.73m??? Normal >=60 [facility] Comment on above: Order Comment: Speci men Type: BLOOD SPECIMENOrdering Facility: [facility] Address: [address] [place] [address] Result Comment: Ebony mated Glomerular Filtration Rate [...] GFR. Performed By: #### 2 4321-2, 1825-03, , 2063-10 ####[facility] LABCLIA [id number] [address] [address] [place] Glucose [Mass/Vol] 96 mg/dL Normal 74-99 [facility] Comment on above: Order Comment: Jim etienne Type: BLOOD SPECIMENOrdering Facility: [facility] Address: [address] [place] [address] Result Comment: The [place] Diabetes Association (ADA) provides guidance for cutoff [...] Standards of Medical Care in Diabetes 2016, [place] Diabetes Association. Diabetes Care. 2016.39(Suppl 1). Performed By: #### 2 432-2, 1825-03, , 2063-10 ####[facility] LABCLIA [id number] [address] [address] [place] Potassium [Moles/Vol] 3.9 mmol/L Normal 3.7-5.1 [facility] Comment on above: Order Comment: Jim etienne Type: BLOOD SPECIMENOrdering Facility: [facility] Address: [address] [place] [address] Performed By: #### 2 432-2, 1825-03, , 2063-10 ####[facility] LABCLIA [id number] [address] [address] [place] Sodium [Moles/Vol] 138 mmol/L Normal 136-144 [facility] Comment on above: Order Comment: Speci men Type: BLOOD SPECIMENOrdering Facility: [facility] Address: [address] [place] [address] Performed By: #### 2 4321-2, 1824-9, 53481-2, 2063-10 ####[facility] LABCLIA [id number] [place] [address] [place] Urea nitrogen [Mass/Vol] 7 mg/dL Normal 7-21 [facility] Comment on above: Order Comment: Speci men Type: BLOOD SPECIMENOrdering Facility: [facility] Address: [address] [place] [address] Performed By: #### 2 4321-2, 9, 46632-9, 2063-10 ####[facility] LABCLIA [id number] [place] [address] [place] CBC W Auto Differential pane l (Bld)on 04-12-2023 Basophils (Bld) [#/Vol] 0.09 10*3/uL Normal <0.11 [facility] Comment on above: Order Comment: Speci men Type: BLOOD SPECIMEN Ordering Facility: [facility] Address: [address] [place] [address] Performed By: #### 3 4528-0 #### [facility] CLIA [id number] [address] [place] [address] [place] Basophils/100 WBC (Bld) 1.0 % Normal C [facility] Comment on above: Order Comment: Speci men Type: BLOOD SPECIMEN Ordering Facility: [facility] Address: [address] [place] [address] Performed By: #### 3 4528-0 #### [facility] CLIA [id number] [address] [place] [address] [place] Differential cell count method Nom (Bld) Manual Normal [facility] Comment on above: Order Comment: Speci men Type: BLOOD SPECIMEN Ordering Facility: [facility] Address: [address] Performed By: #### 3 4528-0 #### [facility] CLIA [id number] [address] [place] [address] [place] Eosinophils (Bld) [#/Vol] 0.36 10*3/uL Normal <0.46 [facility] Comment on above: Order Comment: Speci men Type: BLOOD SPECIMEN Ordering Facility: [facility] Address: [address] Performed By: #### 3 4528-0 #### [facility] CLIA [id number] [address] [place] [address] [place] Eosinophils/100 WBC (Bld) 4.0 % Normal [facility] Comment on above: Order Comment: Speci men Type: BLOOD SPECIMEN Ordering Facility: [facility] Address: [address] Performed By: #### 3 4528-0 #### [facility] CLIA [id number] [address] [place] [address] [place] Erythrocyte distribution width (RBC) [Ratio] 12.3 % Normal 11.5-15.0 [facility] Comment on above: Order Comment: Speci men Type: BLOOD SPECIMEN Ordering Facility: [facility] Address: [address] Performed By: #### 3 4528-0 #### [facility] CLIA [id number] [address] [place] [address] [place] Hematocrit (Bld) [Volume fraction] 43.8 % Normal 36.0-46.0 [facility] Comment on above: Order Comment: Speci men Type: BLOOD SPECIMEN Ordering Facility: [facility] Address: [address] Performed By: #### 3 4528-0 #### [facility] CLIA [id number] [address] [place] [address] [place] Hemoglobin (Bld) [Mass/Vol] 14.5 g/dL Normal 11.5-15.5 [facility] Comment on above: Order Comment: Speci men Type: BLOOD SPECIMEN Ordering Facility: [facility] Address: [address] Performed By: #### 3 4528-0 #### [facility] CLIA [id number] [address] [place] [address] [place] Lymphocytes (Bld) [#/Vol] 1.72 10*3/uL Normal 1.00-4.00 [facility] Comment on above: Order Comment: Speci men Type: BLOOD SPECIMEN Ordering Facility: [facility] Address: [address] [address] Performed By: #### 3 4528-0 #### [facility] IA [id number] [address] [place] [address] [place] Lymphocytes/100 WBC (Bld) 19.0 % Normal [facility] Comment on above: Order Comment: Speci men Type: BLOOD SPECIMEN Ordering Facility: [facility] Address: [address] Performed By: #### 3 4528-0 #### [facility] IA [id number] [address] [place] [address] [place] MCH (RBC) [Entitic mass] 34.4 pg High 26.0-34.0 [facility] Comment on above: Order Comment: Speci men Type: BLOOD SPECIMEN Ordering Facility: [facility] Address: [address] [place] [address] Performed By: #### 3 4528-0 #### [facility] CLIA [id number] [address] [place] [address] [place] MCHC (RBC) [Mass/Vol] 33.1 g/dL Normal 30.5-36.0 [facility] Comment on above: Order Comment: Speci men Type: BLOOD SPECIMEN Ordering Facility: [facility] Address: [address] Performed By: #### 3 4528-0 #### [facility] CLIA [id number] [address] [place] [address] [place] MCV (RBC) [Entitic vol] 104.0 fL High 80.0-100.0 C [facility] Comment on above: Order Comment: Speci men Type: BLOOD SPECIMEN Ordering Facility: [facility] Address: [address] [place], [place] [address] Performed By: #### 3 4528-0 #### [facility] CLIA [id number] [address] [place] [address] [place] Monocytes (Bld) [#/Vol] 0.27 10*3/uL Normal <0.87 [facility] Comment on above: Order Comment: Speci men Type: BLOOD SPECIMEN Ordering Facility: [facility] Address: [address] [place], [place] [address] Performed By: #### 3 4528-0 #### [facility] CLIA [id number] [address] [place] Monocytes/100 WBC (Bld) 3.0 % Normal C [facility] Comment on above: Order Comment: Speci men Type: BLOOD SPECIMEN Ordering Facility: [facility] Address: [address] Performed By: #### 3 4528-0 #### [facility] CLIA [id number] [address] [place] [address] [place] MYELO% 3.0 % Normal [facility] Comment on above: Order Comment: Speci men Type: BLOOD SPECIMEN Ordering Facility: [facility] Address: [address] Performed By: #### 3 4528-0 #### [facility] CLIA [id number] [address] [place] [address] [place] Neutrophils (Bld) [#/Vol] 6.33 10*3/uL Normal 1.45-7.50 [facility] Comment on above: Order Comment: Speci men Type: BLOOD SPECIMEN Ordering Facility: [facility] Address: [address] [place], [place] [address] Performed By: #### 3 4528-0 #### [facility] CLIA [id number] [address] [place] [address] [place] Neutrophils/100 WBC (Bld) 70.0 % Normal [facility] Comment on above: Order Comment: Speci men Type: BLOOD SPECIMEN [facility] [facility] Address: [address] [place], [place] [address] Performed By: #### 3 4528-0 #### [facility] CLIA [id number] [address] [place] [address] [place] Nucleated RBC (Bld) [#/Vol] 10*3/uL Normal <0.01 [facility] Comment on above: Order Comment: Speci men Type: BLOOD SPECIMEN Ordering Facility: [facility] Address: [address] [place] [address] Performed By: #### 3 4528-0 #### [facility] CLIA [id number] [address] [place] [address] [place] Nucleated RBC/100 WBC (Bld) [Ratio] 0.0 /100 WBC Normal [facility] Comment on above: Order Comment: Speci men Type: BLOOD SPECIMEN Ordering Facility: [facility] Address: [address] [place] [address] Performed By: #### 3 4528-0 #### [facility] CLIA [id number] [address] [place] [address] [place] Platelet mean volume (Bld) [Entitic vol] 10.1 fL Normal 9.0-12.7 [facility] Comment on above: Order Comment: Speci men Type: BLOOD SPECIMEN Ordering Facility: [facility] Address: [address] Performed By: #### 3 4528-0 #### [facility] CLIA [id number] [address] [place] [address] [place] Platelets (Bld) [#/Vol] 393 10*3/uL Normal 150-400 [facility] Comment on above: Order Comment: Speci men Type: BLOOD SPECIMEN Ordering Facility: [facility] Address: [address] Performed By: #### 3 4528-0 #### [facility] CLIA [id number] [address] [place] [address] [place] Platelets Estimate (Bld) [#/Vol] Adequate Normal [facility] Comment on above: Order Comment: Speci men Type: BLOOD SPECIMEN Ordering Facility: [facility] Address: [address] [place], [place] [address] Performed By: #### 3 4528-0 #### [facility] CLIA [id number] [address] [place] [address] [place] Polychromasia LM Ql (Bld) Slight Normal [facility] Comment on above: Order Comment: Speci men Type: BLOOD SPECIMEN Ordering Facility: [facility] Address: [address] Performed By: #### 3 4528-0 #### [facility] CLIA [id number] [address] [place] [address] [place] RBC (Bld) [#/Vol] 4.21 10*6/uL Normal 3.90-5.20 [facility] Comment on above: Order Comment: Speci men Type: BLOOD SPECIMEN Ordering Facility: [facility] Address: [address] [place] [address] Performed By: #### 3 4528-0 #### [facility] CLIA [id number] [address] [place] [address] [place] RED CELL MORPH Reviewed: unremarkable Normal [facility] Comment on above: Order Comment: Speci men Type: BLOOD SPECIMEN Ordering Facility: [facility] Address: [address] [place] [address] Performed By: #### 3 4528-0 #### [facility] CLIA [id number] [address] [place] [address] [place] WBC (Bld) [#/Vol] 9.04 10*3/uL Normal 3.70-11.00 [facility] Comment on above: Order Comment: Speci men Type: BLOOD SPECIMEN Ordering Facility: [facility] Address: [address] [place] [address] Performed By: #### 3 4528-0 #### [facility] CLIA [id number] [facility] [address] [place] WBC Left Shift Ql (Bld) Present [facility] Comment on above: Order Comment: Speci men Type: BLOOD SPECIMEN Ordering Facility: [facility] Address: [address] [place] [address] Performed By: #### 3 4528-0 #### [facility] CLIA [id number] [address] [place] [address] [place] CNOVon 04-12-2023 CNOV Office Visit (GASTA5 ) -------- RICA STOUT ([id number]) 1995 F Date Time Provider Department 04/12/23 1:00 PM MATHEUSMARGEH GASTA5 During your visit today, we recorded the following information about you: Pulse Blood pressure Weight Height 112/minute 132/88 60.4 kg 1.626 m Jeannie Jarvis APRN.[employer] 05/24/2023 12:39 PM Signed NAME: Rica Stout [...] 9.0 Alb (more content not included)... Normal [facility] Centromere Ab IF Ql (S)on Centromere Ab Qn (S) <0.2 Normal <1.0 [facility] Comment on above: Order Comment: Speci men Type: BLOOD SPECIMENOrdering Facility: [facility] Address: [address] [place] [address] Result Comment: Anti -centromere antibody is used as in aid in diagnosis of systemic sclerosis. Clinical correlation is required. Test Methodology: Multiplex flow immunoassay. Performed By: #### 1 7791-5, 95327-1, 78259-0, 22716-6, 63971-5, ANAIFR, 88526-4, 41737-1, 33579-9, 85819-1, 86159-1, 64212-8 ####[facility] [id number] [place] [address] [place] CENTROMERE AB QUAL Negative Normal Negative [facility] Comment on above: Order Comment: Liliami lowell Type: BLOOD SPECIMENOrdering Facility: [facility] Address: [address] [place] [address] Performed By: #### 1 7791-5, 80035-9, 77173-6, 02424-7, 46318-1, ANAIFR, 10669-2, 39183-4, 47700-9, 67595-3, 76574-7, 78022-2 ####[facility] [id number] [place] [address] [place] Ceruloplasmin SerPl-mCncon 0 04-12-2023 Ceruloplasmin [Mass/Vol] 29 mg/dL Normal 16-45 [facility] Comment on above: Order Comment: Speci men Type: BLOOD SPECIMENOrdering Facility: [facility] Address: [address] [place] [address] Performed By: #### 2 4321-2, 1825-9, 54503-4, 2064-4 ####[facility] [id number] [place] [address] [place] Chromatin Ab Qnon 04-12-2023 CHROMATIN AB QUAL Negative Normal Negative [facility] Comment on above: Order Comment: Speci men Type: BLOOD SPECIMENOrdering Facility: [facility] Address: [address] [place] [address] Performed By: #### 1 7791-5, 51726-0, 65255-9, 82591-9, 16528-3, ANAIFR, 06952-5, 54588-6, 28355-6, 06274-9, 90689-2, 40698-4 ####[facility]IA [id number] [place] [address] [place] Chromatin Ab SerPl-aCncon Chromatin Ab Qn <0.2 Normal <1.0 [facility] Comment on above: Order Comment: Speci men Type: BLOOD SPECIMENOrdering Facility: [facility] Address: [address] [place] [address] Result Comment: Test Methodology: Multiplex flow immunoassay. Performed By: #### 1 7791-5, 10612-0, 79871-7, 63898-5, 41068-3, ANAIFR, 67080-1, 63824-4, 17547-8, 20870-9, 41188-2, 69673-6 ####[facility] [id number] [place] [address] [place] OMA Jo1 Ab Ser-aCncon 2022 Taylor-1 extractable nuclear Ab Qn (S) <0.2 Normal <1.0 [facility] Comment on above: Order Comment: Speci men Type: BLOOD SPECIMENOrdering Facility: [facility] Address: [address] [place] [address] Performed By: #### 1 7791-5, 12138-3, 14346-9, 73953-0, 16122-0, ANAIFR, 28942-6, 83010-2, 80586-6, 20941-8, 56118-3, 66882-4 ####[facility] [id number] [place] [address] [place] OMA LOCKSTITCH HEMMER Ab Ser-aCncon 2022 Ribonucleoprotein extractable nuclear Ab Qn (S) <0.2 Normal <1.0 [facility] Comment on above: Order Comment: Speci men Type: BLOOD SPECIMENOrdering Facility: [facility] Address: [address] [place] [address] Performed By: #### 1 7791-5, 00413-6, 01276-8, 03651-7, 60375-7, ANAIFR, 99257-6, 79519-8, 47710-8, 73575-0, 02051-0, 10865-8 ####[facility] [id number] [place] [address] [place] Ribonucleoprotein extractable nuclear Ab Qn (S) 0.3 AI Normal <1.0 [facility] Comment on above: Order Comment: Speci men Type: BLOOD SPECIMENOrdering Facility: [facility] Address: [address] [place] [address] Performed By: #### 1 7791-5, 23282-7, 16961-9, 77149-2, 31350-9, ANAIFR, 96747-0, 19180-2, 68053-3, 88817-0, 48762-8, 69559-6 ####[facility]CLIA [id number] [place] [address] [place] OMA SM IgG Ser-aCncon 2022 Rico extractable nuclear IgG Qn (S) <0.2 Normal <1.0 [facility] Comment on above: Order Comment: Speci men Type: BLOOD SPECIMENOrdering Facility: [facility] Address: [address] [place] [address] Performed By: #### 1 7791-5, 37743-3, 03269-1, 23671-9, 18034-7, ANAIFR, 54209-9, 01930-7, 93239-3, 92283-3, 06183-2, 04543-9 ####[facility]IA [id number] [address] [place] OMA SS-A Ab Ser-aCncon 04-12 Sjogrens syndrome-A extractable nuclear Ab Qn (S) <0.2 Normal <1.0 [facility] Comment on above: Order Comment: Speci men Type: BLOOD SPECIMENOrdering Facility: [facility] Address: [address] [place] [address] Result Comment: Test Methodology: Multiplex flow immunoassay. Performed By: #### 1 7791-5, 23542-2, 27176-1, 99377-4, 41278-2, ANAIFR, 88913-1, 41713-6, 66767-8, 08973-7, 12804-3, 15746-7 ####[facility] [id number] [address] [place] OMA SS-B Ab Ser-aCncon 04-12 Sjogrens syndrome-B extractable nuclear Ab Qn (S) <0.2 Normal <1.0 [facility] Comment on above: Order Comment: Liliami lowell Type: BLOOD SPECIMENOrdering Facility: [facility] Address: [address] [place] [address] Result Comment: Anti -SSB (anti-La) antibody is used as an aid in diagnosis of a variety of systemic autoimmune diseases, especially for Sjogren's syndrome and systemic lupus erythematosus. Clinical correlation is required. Test Methodology: Multiplex flow immunoassay. Performed By: #### 1 7791-5, 01096-8, 96059-0, 66412-9, 26804-6, ANAIFR, 97171-7, 20147-4, 55022-9, 38360-6, 00629-7, 92256-3 ####[facility]CLIA [id number] [place] [address] [place] Ferritin SerPl-mCncon 2022 Ferritin [Mass/Vol] 667.0 ng/mL High 14.7-205.1 [facility] Comment on above: Order Comment: Speccari etienne Type: BLOOD SPECIMENOrdering Facility: [facility] Address: [address] [place] [address] Performed By: #### 5 0190-8, 82057-1, 2276-4 ####[facility]CLIA [id number] [address] OF [place] HBV core Ab Ser Qlon 023 HBV core Ab Ql (S) Positive Abnormal Negative [facility] Comment on above: Order Comment: Jim etienne Type: BLOOD SPECIMENOrdering Facility: [facility] Address: [address] [place] [address] Result Comment: The result suggests either current or past infection with Hepatitis B virus. Non-specific reactivity may at times be seen with this test due to some underlying phenomena. Please correlate with HBsAg result and medical history. Performed By: #### 5 195-3, 12241-4, 06408-0, AHAVG ####[facility] [id number] [address] OF [place] HBV surface Ab Ql (S)on 03-23 HBV surface Ab Qn (S) 45.61 mIU/mL Normal [facility] Comment on above: Order Comment: Liliami lowell Type: BLOOD SPECIMENOrdering Facility: [facility] Address: [address] [place] [address] Result Comment: <8 m IU/mL: No serological evidence of immunity to Hepatitis B Virus. >/= 8 to <12 mIU/mL: No serological evidence of immunity to Hepatitis B Virus. >/= 12 mIU/mL: Consistent with serological evidence of immunity to Hepatitis B Virus. Performed By: #### 5 195-3, 97955-4, 17064-6, AHAVG ####[facility]CLIA [id number] [address] OF [facility] HBV surface Ab Ser Qlon 03-23 HBV surface Ab Ql (S) Positive Normal [facility] Comment on above: Order Comment: Speci men Type: BLOOD SPECIMENOrdering Facility: [facility] Address: [address] [place] [address] Result Comment: Cons istent with serological evidence of immunity to Hepatitis B Virus. Performed By: #### 5 195-3, 33153-5, 88897-2, AHAVG ####[facility]IA [id number] [address] HBV surface Ag Ser Qlon 03-23 HBV surface Ag Ql (S) Negative Normal Negative [facility] Comment on above: Order Comment: Jim etienne Type: BLOOD SPECIMENOrdering Facility: [facility] Address: [address] [place] [address] Performed By: #### 5 195-3, 20212-9, 56879-5, AHAVG ####[facility]IA [id number] [address] HCV Ab Ser Qlon 04-12-2023 HCV Ab Ql (S) Negative Normal Negative [facility] Comment on above: Order Comment: Speci lowell Type: BLOOD SPECIMENOrdering Facility: [facility] Address: [address] [place] [address] Result Comment: The result suggests no evidence of active infection with Hepatitis C virus. Should recent infection be suspected, repeat testing may be considered 4-6 weeks after this draw. Performed By: #### 1 6128-1 ####[facility]IA [id number] [place] [address] [place] HEPATITIS A ANTIBODY, IGGon 04-12-2023 HAV IgG Ql (S) Negative Normal [facility] Comment on above: Order Comment: Speci men Type: BLOOD SPECIMENOrdering Facility: [facility] Address: [address] [place] [address] Result Comment: No s erological evidence of immunity to Hepatitis A Virus. Performed By: #### 5 195-3, 05059-4, 22811-3, AHAVG ####[facility]IA [id number] [address] OF [place] HFE (HEMOCHROMATOSIS)on 03-23 INTERPRETATION (HEMDNA) Normal C [facility] Comment on above: Order Comment: Speci men Type: BLOOD SPECIMENOrdering Facility: [facility] Address: [address] [place] [address] Result Comment: HFE (Hemochromatosis) Laboratory Accession Number: [id number] Result: C282Y: WT H63D: WT S65C: WT Interpretation: No variant detected: The DNA sample is negative for the C282Y, H63D and S65C variants of the HFE gene. Variants at these loci are commonly associated with hereditary hemochromatosis (HH). Approximately 13% of clinically affected individuals may have this negative result, suggesting other etiologies for hereditary hemochromatosis. Methodology: Patient DNA is evaluated for C282Y (c.845G>A, p.Nbx287Fjr, NM_000410.3), H63D (c.187C>G, p.Vqa44Jhk, NM_000410.3) and S65C variant (c.193A>T, p.Vem46Mxo, NM_000410.3) missense variants in the HFE gene (NM_000410.3, GRCh37(hg19)) by multiplex polymerase chain reaction (PCR) followed by melting curve analysis. Disclaimer: This test was developed and its performance characteristics determined by [facility]'s [facility] ([facility]). It has not been cleared or approved by the FDA. [facility] is regulated under CLIA as certified to perform high- complexity testing. This test is used for clinical purposes. It should not be regarded as investigational or for research. Testing and interpretation performed at [facility], [address] [place] [address]. CLIA Number: [id number] As reviewed by Saritha Swan MD Performed By: #### H EMDNA ####[facility] LIMSCLIA [id number] [place] [address] [place] HbA1c (Bld)on 04-12-2023 Average glucose Estimated from glycated hemoglobin (Bld) [Mass/Vol] 85 mg/dL Normal [facility] Comment on above: Order Comment: Jim etienne Type: BLOOD SPECIMEN Ordering Facility: [facility] Address: [address] [place] [address] Result Comment: eAG: (Estimated average glucose) is a calculated value from HgbA1c and is hospital sales representative of the average blood glucose level in the last 2-3 month period. Performed By: #### 3 4528-0 #### [facility] CLIA [id number] [address] [place] [address] [place] OF [facility] HbA1c (Bld) [Mass fraction] 4.6 % Normal 4.3-5.6 [facility] Comment on above: Order Comment: Jim etienne Type: BLOOD SPECIMEN Ordering Facility: [facility] Address: [address] [place] [address] Result Comment: Amer [place] Diabetes Association guidelines indicate that patients with HgbA1c in the range 5.7-6.4% are at increased risk for development of diabetes, and intervention by lifestyle modification may be beneficial. HgbA1c greater or equal to 6.5% is considered diagnostic of diabetes. Performed By: #### 3 4528-0 #### [facility] CLIA [id number] [address] [place] [address] [place] Hepatic function 2000 panelo n 04-12-2023 Albumin [Mass/Vol] 4.4 g/dL Normal 3.9-4.9 [facility] Comment on above: Order Comment: Speci men Type: BLOOD SPECIMENOrdering Facility: [facility] Address: [address] [place] [address] Performed By: #### 2 4321-2, 9, 16752-0, 2063-10 ####[facility] LABCLIA [id number] [place] [address] [place] ALP [Catalytic activity/Vol] 78 U/L Normal 34-123 [facility] Comment on above: Order Comment: Speci men Type: BLOOD SPECIMENOrdering Facility: [facility] Address: [address] [place] [address] Performed By: #### 2 4321-2, 1825-03, 77396-6, 2063-10 ####[facility]IA [id number] [place] [address] [place] ALT [Catalytic activity/Vol] 81 U/L High 7-38 [facility] Comment on above: Order Comment: Speci men Type: BLOOD SPECIMENOrdering Facility: [facility] Address: [address] [place] [address] Performed By: #### 2 4321-2, 9, 82708-9, 2063-10 ####[facility]IA [id number] [place] [address] [place] AST [Catalytic activity/Vol] 76 U/L High 13-35 [facility] Comment on above: Order Comment: Speci men Type: BLOOD SPECIMENOrdering Facility: [facility] Address: [address] [place], [place] [address] Performed By: #### 2 4321-2, 9, 15012-5, 2063-10 ####[facility] LABIA [id number] [place] [id number] [place] Bilirubin [Mass/Vol] 0.5 mg/dL Normal 0.2-1.3 [facility] Comment on above: Order Comment: Speci men Type: BLOOD SPECIMENOrdering Facility: [facility] Address: [address] [place] [address] Performed By: #### 2 4321-2, 1824-9, 90866-6, 4 ####[facility] LABCLIA [id number] [place] [address] [place] Bilirubin.conjugated [Mass/Vol] mg/dL Normal <0.2 [facility] Comment on above: Order Comment: Speci men Type: BLOOD SPECIMENOrdering Facility: [facility] Address: [address] [place] [address] Performed By: #### 2 4321-2, 9, 78942-3, 2063-10 ####[facility]IA [id number] [place] [address] [place] Protein [Mass/Vol] 7.7 g/dL Normal 6.3-8.0 [facility] Comment on above: Order Comment: Speci men Type: BLOOD SPECIMENOrdering Facility: [facility] Address: [address] [place] [address] Performed By: #### 2 4321-2, 9, 44527-0, 2063-10 ####[facility] LABIA [id number] [place] [address] [place] Iron and Iron binding capaci ty panelon 04-12-2023 Iron [Mass/Vol] 138 ug/dL Normal 41-186 [facility] Comment on above: Order Comment: Speci men Type: BLOOD SPECIMENOrdering Facility: [facility] Address: [address] [place] [address] Performed By: #### 5 0190-8, 77803-8, 2276-4 ####[facility] LABCLIA [id number] [place] [address] [place] Iron binding capacity [Mass/Vol] 408 ug/dL High 232-386 [facility] Comment on above: Order Comment: Jim etienne Type: BLOOD SPECIMENOrdering Facility: [facility] Address: [address] [place] [address] Performed By: #### 5 0190-8, 84902-4, 6-4 ####[facility] LABCLIA [id number] [place] [address] [place] Iron/TIBC [Molar ratio] 33.8 % Normal 15.0-57.0 C [facility] Comment on above: Order Comment: Jim etienne Type: BLOOD SPECIMENOrdering Facility: [facility] Address: [address] [place] [address] Performed By: #### 5 0190-8, 48575-9, 2275-10 ####[facility] LABCLIA [id number] [place] [address] [place] Taylor-1 extractable nuclear Ab Qn (S)on 04-12-2023 TAYLOR 1 ANTIBODY QUAL Negative Normal Negative [facility] Comment on above: Order Comment: Jim etienne Type: BLOOD SPECIMENOrdering Facility: [facility] Address: [address] [place] [address] Result Comment: Anti -TAYLOR-1 antibody is used as an aid in diagnosis of polymyositis and dermatomyositis especially with pulmonary involvement. A negative result cannot rule out polymyositis or dermatomyositis. Clinical correlation is required. Test Methodology: Multiplex flow immunoassay. Performed By: #### 1 7791-5, 25923-0, 42959-4, 33741-3, 68647-6, ANAIFR, 29909-7, 59345-6, 43032-8, 50070-0, 96363-9, 45499-0 ####[facility] LABCLIA [id number] [place] [address] [place] LKM ABon 04-12-2023 LIVER-KIDNEY MICROSOMAL ABS <1:20 Normal <1:20 [facility] Comment on above: Order Comment: Speci men Type: BLOOD SPECIMEN Ordering Facility: [facility] Address: [place] [address] Result Comment: INTE RPRETIVE INFORMATION: Nmgta-Ewefgm-Wvqgyxete Abs, IgG Liver-Kidney Microsome IgG antibody (anti-LKM), as detected by indirect immunofluorescent antibody (IFA) techniques, may be observed in patients with autoimmune hepatitis type 2 (AIH-2), AIH-2 associated with autoimmune hdubnbhkxmtkjibrgh-tpprlalkbte-wvpjlprekl dystrophy (APECED), viral hepatitis C or D, and some forms of drug-induced hepatitis. This IFA does not differentiate among the four types of LKM antibodies (LKM-1, LKM-2, LKM-3, and a fourth type that recognizes CY and CY antigens). Of these, anti-LKM-1 (cytochrome Y752BLN1) IgG antibodies are considered specific for AIH-2. This test was developed and its performance characteristics determined by [employer]. It has not been cleared or approved by the [place] Food and Drug Administration. This test was performed in a CLIA certified laboratory and is intended for clinical purposes. Performed By: [facility] [address] [place] [address] Glass Mold Repairer: Luis Blunt MD, PhD CLIA Number: [id number] Performed By: #### 3 4528-0 #### [facility] CLIA [id number] [address] [place] [address] [place] Lipid 1996 panelon 3 Cholesterol [Mass/Vol] 272 mg/dL High <[address] [facility] Comment on above: Order Comment: Speci men Type: BLOOD SPECIMENOrdering Facility: [facility] Address: [place] [address] Result Comment: <200 mg/dL, Desirable 200-239 mg/dL, Borderline high >239 mg/dL, High Performed By: #### 5 0190-8, 26969-9, 2276-4 ####[facility]CLIA [id number] [address] Cholesterol in HDL [Mass/Vol] 51 mg/dL Normal >39 [facility] Comment on above: Order Comment: Speci men Type: BLOOD SPECIMENOrdering Facility: [facility] Address: [address] [address] Result Comment: 40-5 9 mg/dL, Acceptable >59 mg/dL, High: Negative risk factor for coronary heart disease <40 mg/dL, Low: Positive risk factor for coronary heart disease Performed By: #### 5 0190-8, 15507-8, 2275- ####[facility]CLIA [id number] [address] Cholesterol in LDL [Mass/Vol] 173 mg/dL High <100 [facility] Comment on above: Order Comment: Jim lowell Type: BLOOD SPECIMENOrdering Facility: [facility] Address: [address] [place] [address] Result Comment: <100 mg/dL, Optimal 100-129 mg/dL, Near optimal/above optimal 130-159 mg/dL, Borderline high 160-189 mg/dL, High >189 mg/dL, Very high Secondary prevention optimal LDL Cholesterol levels are recommended to be < 70 mg/dL Performed By: #### 5 0190-8, 19879-5, 2275- ####[facility]CLIA [id number] [address] Cholesterol in LDL/Cholesterol in HDL [Mass ratio] 3.39 {ratio} High <2.54 [facility] Comment on above: Order Comment: Liliami lowell Type: BLOOD SPECIMENOrdering Facility: [facility] Address: [address] [place] [address] Result Comment: Jose hale: 1. National Cholesterol Education Program ATP III Guideline At-A-Glance Quick Desk Reference: National Heart, Lung, and Blood [place]. National Institutes of Health. 2001: NIH Publication No. 01-3305. 2. An International Atherosclerosis Society position paper: global recommendations for the management of dyslipidemia: executive summary, Atherosclerosis. 2014: 232(2):410-413. Performed By: #### 5 0190-8, 51798-3, 2275- ####[facility]CLIA [id number] [place] [address] [place] Cholesterol in VLDL [Mass/Vol] 48 mg/dL High <30 [facility] Comment on above: Order Comment: Speci men Type: BLOOD SPECIMENOrdering Facility: [facility] Address: [address] [address] Performed By: #### 5 0190-8, 77189-5, 2275-10 ####[facility]CLIA [id number] [address] [place] Cholesterol non HDL [Mass/Vol] 221 mg/dL High <130 [facility] Comment on above: Order Comment: Speci men Type: BLOOD SPECIMENOrdering Facility: [facility] Address: [address] [address] Result Comment: <130 mg/dL, Optimal 130-159 mg/dL, Near optimal/above optimal 160-189 mg/dL, Borderline high 190-219 mg/dL, High >219 mg/dL, Very high Secondary prevention optimal non HDL Cholesterol levels are recommended to be <100 mg/dL Performed By: #### 5 0190-8, 69828-3, 2275-10 ####[facility]CLIA [id number] [place] [address] [place] Cholesterol.total/Shannon sterol in HDL [Mass ratio] 5.33 {ratio} High <5.10 [facility] Comment on above: Order Comment: Speci men Type: BLOOD SPECIMENOrdering Facility: [facility] Address: [address] Performed By: #### 5 0190-8, 89922-8, 2275-10 ####[facility]CLIA [id number] [place] [address] [place] FASTING TIME 12 hrs Normal [facility] Comment on above: Order Comment: Speci men Type: BLOOD SPECIMENOrdering Facility: [facility] Address: [address] [place] [address] Performed By: #### 5 0190-8, 13541-7, 2275-4 ####[facility]CLIA [id number] [address] STATES OF [facility] Triglyceride [Mass/Vol] 238 mg/dL High <150 [facility] Comment on above: Order Comment: Speci men Type: BLOOD SPECIMENOrdering Facility: [facility] Address: [address] [place] [address] Result Comment: <150 mg/dL, Normal 150-199 mg/dL, Borderline high 200-499 mg/dL, High >499 mg/dL, Very high Performed By: #### 5 0190-8, 37589-0, 2275-10 ####[facility]IA [id number] [address] [place] Mitochondria Ab IF Ql (S)on 04-12-2023 Mitochondria M2 Ab IA Qn (S) 2.4 Units Normal <=20.0 [facility] Comment on above: Order Comment: Speci men Type: BLOOD SPECIMENOrdering Facility: [facility] Address: [address] [place] [address] Performed By: #### 1 7791-5, 04877-9, 74471-1, 26351-7, 30252-5, ANAIFR, 82767-0, 66404-8, 01470-8, 50240-3, 49418-0, 85605-7 ####[facility] LABIA [id number] [address] OF [facility] Mitochondria M2 Ab Ql (S) Negative Normal Negative [facility] Comment on above: Order Comment: Speci men Type: BLOOD SPECIMENOrdering Facility: [facility] Address: [address] [place] [address] Result Comment: Anti -mitochondrial antibody test is used as an aid in diagnosis of primary biliary cholangitis. Clinical correlation is required. Performed By: #### 1 7791-5, 24139-2, 58005-6, 86602-8, 78937-4, ANAIFR, 48409-1, 83627-3, 12835-3, 88473-9, 01476-1, 81962-9 ####[facility]CLIA [id number] [place] [address] [place] PHOSPHATIDYLETHANOL (PETH)on 04-12-2023 EER PETH See Note Normal [facility] Comment on above: Order Comment: Speci men Type: BLOOD SPECIMEN Ordering Facility: [facility] Address: [address] [place] [address] Result Comment: Auth orized individuals can access the [employer] Enhanced Report using the following link: [email or web address] Performed By: [employer] [address] [place] [address] [employer] Mold Repairer: Luis Blunt MD, PhD [place] Number: [id number] Performed By: #### 3 4528-0 #### [facility] CLIA [id number] [address] [place] [address] [place] PETH 16:0/18.2 (PLPETH) 228 ng/mL [facility] Comment on above: Order Comment: Speci men Type: BLOOD SPECIMEN Ordering Facility: [facility] Address: [address] [place] [address] Performed By: #### 3 4528-0 #### [facility] CLIA [id number] [address] [place] [address] [place] PETH 16:0/18:1 (POPETH) 243 ng/mL Normal [facility] Comment on above: Order Comment: Speci men Type: BLOOD SPECIMEN Ordering Facility: [facility] Address: [address] [place] [address] Result Comment: INTE RPRETIVE INFORMATION:Phosphatidylethanol (PEth), Whole [...] developed and its performance characteristics determined by [employer]. It has not been cleared or approved by the U.S. Food and Drug Administration. This test was performed in a CLIA-certified laboratory and is intended for clinical purposes. Performed By: #### 3 4528-0 #### [facility] CLIA [id number] [address] [place] [address] [place] PT panel Coag (PPP)on 2022 INR Coag (PPP) [Relative time] 1.0 {INR} Normal 0.9-1.3 [facility] Comment on above: Order Comment: Jim etienne Type: BLOOD SPECIMEN Ordering Facility: [facility] Address: [address] [place] [address] Result Comment: Adrienne min K Antagonist (VKA) Therapeutic Range: INR 2 to 3 (Target INR of 2.5) Note: For patients treated with VKA drugs, such as warfarin, the [employer] 2012 Guideline recommends [...] Chest 2012, 141:7S-47S Mamadou RA, et al. [facility] 2017, 70: 252-289 Performed By: #### 3 4528-0 #### [facility] CLIA [id number] [address] [place] [address] [place] PT Coag (PPP) [Time] 10.4 s Normal 9.7-13.0 [facility] Comment on above: Order Comment: Jim etienne Type: BLOOD SPECIMEN Ordering Facility: [facility] Address: [address] [address] Performed By: #### 3 4528-0 #### [facility] CLIA [id number] [address] [place] [address] [place] Ribonucleoprotein extractabl e nuclear Ab Qn (S)on 04-12-2023 ANTI-LOCKSTITCH HEMMER QUAL Negative Normal Negative [facility] Comment on above: Order Comment: Jim etienne Type: BLOOD SPECIMENOrdering Facility: [facility] Address: [address] [place] [address] Performed By: #### 1 7791-5, 68806-8, 36492-8, 37506-5, 22400-0, ANAIFR, 66457-7, 81599-8, 18561-4, 84883-1, 54568-2, 43943-4 ####[facility] LABCLIA [id number] [place] [address] [place] RIBOSOMAL LOCKSTITCH HEMMER QUAL Negative Normal Negative [facility] Comment on above: Order Comment: Speci men Type: BLOOD SPECIMENOrdering Facility: [facility] Address: [address] [place] [address] Result Comment: Anti -Ribosomal RNA (Ribosomal P) antibody is used as an aid in diagnosis of systemic autoimmune diseases especially systemic lupus erythematosus and mixed connective tissue disease. Cross-reactivity with Anti-rico antibody is not uncommon. Clinical correlation is required. Test Methodology: Multiplex flow immunoassay. Performed By: #### 1 7791-5, 44658-7, 88779-0, 84786-0, 66970-3, ANAIFR, 33244-9, 70004-8, 05532-3, 91000-7, 48799-8, 90326-4 ####[facility] LABIA [id number] [place] [address] [place] SCL-70 extractable nuclear I gG IA Qn (S)on 04-12-2023 SCLERODERMA AB QUAL Negative Normal Negative [facility] Comment on above: Order Comment: Speci men Type: BLOOD SPECIMENOrdering Facility: [facility] Address: [address] [address] Performed By: #### 1 7791-5, 64988-8, 69701-8, 60240-8, 53945-1, ANAIFR, 32882-8, 55777-7, 24458-3, 28360-7, 72878-3, 14378-9 ####[facility]IA [id number] [place] [address] [place] SCLERODERMA IGG AB <0.2 Normal <1.0 [facility] Comment on above: Order Comment: Speci men Type: BLOOD SPECIMENOrdering Facility: [facility] Address: [address] [place] [address] Result Comment: Scl- 70/Scleroderma antibody test is used as an aid in diagnosis of systemic sclerosis especially the diffuse cutaneous form. A negative result cannot rule out systemic sclerosis. The final interpretation should consider clinical picture and other test results such as anti-centromere antibody. Test Methodology: Multiplex flow immunoassay. Performed By: #### 1 7791-5, 81437-3, 61717-0, 56785-8, 62003-8, ANAIFR, 54779-0, 54111-3, 92153-9, 32808-9, 45269-4, 29453-4 ####[facility]IA [id number] [place] [address] [place] Sjogrens syndrome-A extracta ble nuclear Ab Qn (S)on 04-12-2023 SSA ANTIBODY QUAL Negative Normal Negative [facility] Comment on above: Order Comment: Speci men Type: BLOOD SPECIMENOrdering Facility: [facility] Address: [address] [place] [address] Performed By: #### 1 7791-5, 59245-9, 13158-0, 05811-5, 75215-9, ANAIFR, 21371-3, 21582-3, 08091-6, 59692-9, 85594-8, 90578-7 ####[facility]CLIA [id number] [place] [address] [place] Sjogrens syndrome-B extracta ble nuclear Ab Qn (S)on 04-12-2023 SSB ANTIBODY QUAL Negative Normal Negative [facility] Comment on above: Order Comment: Speci men Type: BLOOD SPECIMENOrdering Facility: [facility] Address: [address] [place] [address] Performed By: #### 1 7791-5, 71065-7, 20148-3, 04604-2, 46249-3, ANAIFR, 91016-2, 86996-5, 72596-7, 99961-2, 70779-5, 03367-3 ####[facility] [id number] [place] [address] [place] Rico extractable nuclear Ig G Qn (S)on 04-12-2023 SM ANTIBODY QUAL Negative Normal Negative [facility] Comment on above: Order Comment: Speci men Type: BLOOD SPECIMENOrdering Facility: [facility] Address: [address] [place] [address] Result Comment: Anti -Sm (Rico) antibody is used as an aid in diagnosis of systemic lupus erythematosus and its presence is associated with renal disease. A negative result cannot rule out systemic lupus erythematosus. Clinical correlation is required. Test Methodology: Multiplex flow immunoassay. Performed By: #### 1 7791-5, 80719-6, 11291-8, 75352-8, 67035-3, ANAIFR, 28067-1, 63963-5, 97488-9, 52031-8, 24846-7, 84866-2 ####[facility] [id number] [place] [address] [place] Smooth muscle Ab Ql (S)on ACTIN SMOOTH MUSCLE IGG QUALITATIVE Negative Normal Negative [facility] Comment on above: Order Comment: Speci men Type: BLOOD SPECIMENOrdering Facility: [facility] Address: [address] [place] [address] Performed By: #### 1 7791-5, 85935-4, 40542-2, 64470-6, 36893-6, ANAIFR, 60772-3, 67511-5, 54154-5, 14402-9, 23815-8, 36165-5 ####[facility] [id number] [place] [address] [place] ACTIN SMOOTH MUSCLE IGG QUANTITATIVE 3 Units Normal <20 [facility] Comment on above: Order Comment: Speci men Type: BLOOD SPECIMENOrdering Facility: [facility] Address: [address] [address] Performed By: #### 1 7791-5, 26447-3, 62652-5, 22927-0, 32588-1, ANAIFR, 48995-3, 46848-3, 89237-3, 47839-4, 76154-7, 05416-0 ####[facility] LABCLIA [id number] [address] [place] dsDNA Ab Ser IA-aCncon 04-12 DNA double strand Ab IA Qn (S) <12 Normal <30 [facility] Comment on above: Order Comment: Speci men Type: BLOOD SPECIMENOrdering Facility: [facility] Address: [address] [place] [address] Result Comment: Nega tive for ds DNA Antibodies. <30 IU/mL Negative 30-74 IU/mL Equivocal >74 IU/mL Positive Performed By: #### 1 7791-5, 29070-5, 30130-8, 31385-1, 31756-7, ANAIFR, 47006-4, 13367-2, 69418-8, 74765-5, 00446-9, 50930-6 ####[facility] LABIA [id number] [address] OF [place] CNPNon 04-11-2023 CNPN Telephone (GASTA5) -------- RICA STOUT ([id number]) 1995 F Date Time Provider Department 04/11/23 MARY CAGLE ([facility]) GASTA5 During your visit today, we [...] Encounter Status:Closed by MARY CAGLE on 04/11/23 [facility] Telephone (GASTA5) -------- RICA STOUT ([id number]) 1995 F Date Time Provider Department 04/11/23 JEANNIE JARVIS GASTA5 During your visit today, we recorded the following information about you: Gretta Ribeiro 04/11/2023 3:29 PM Signed Received outside medical records from [facility], scanned into her chart under scanned docs tab in [employer]. Allergies As of Date: 04/11/2023 Noted Allergy [...] Status:Closed by GRETTA RIBEIRO on 07/23/23 Normal [facility] Alanine aminotransferase [En zymatic activity/volume] in Serum or PlasmaOrdered By: Marc Giron on 03-28-2023 ALT [Catalytic activity/Vol] 31 U/L 7-52 [facility] Albumin [Mass/volume] in Ser um or Plasma by Bromocresol green (BCG) dye binding methoOrdered By: Marc Giron on 03-28-2023 Albumin BCG dye [Mass/Vol] 3.3 g/dL 3.5-5.7 [facility] Alkaline phosphatase [Enzyma tic activity/volume] in Serum or PlasmaOrdered By: Marc Giron on 03-28-2023 ALP [Catalytic activity/Vol] 95 U/L 34-104 [facility] Aspartate aminotransferase [ Enzymatic activity/volume] in Serum or PlasmaOrdered By: Marc Giron on 03-28-2023 AST [Catalytic activity/Vol] 55 U/L 13-39 [facility] Basophils Auto (Bld) [#/Vol] Ordered By: Marc Giron on 03-28-2023 Basophils (Bld) [#/Vol] 0.1 10*3/uL 0.0-0.2 [facility] Basophils/100 WBC Auto (Bld) Ordered By: Marc Giron on 03-28-2023 Basophils/100 WBC (Bld) 1.4 % . F [facility] Bilirubin.total [Mass/volume ] in Serum or PlasmaOrdered By: Marc Giron on 03-28-2023 Bilirubin [Mass/Vol] 0.3 mg/dL 0.3-1.0 [facility] Calcium [Mass/volume] in Ser um or PlasmaOrdered By: Marc Giron on 03-28-2023 Calcium [Mass/Vol] 9.2 mg/dL 8.6-10.3 [facility] Carbon dioxide, total [Moles /volume] in Serum or PlasmaOrdered By: Marc Giron on 03-28-2023 CO2 [Moles/Vol] 23.5 mmol/L 21.0-31.0 [facility] Chloride [Moles/volume] in S caitlyn or PlasmaOrdered By: Marc Giron on 03-28-2023 Chloride [Moles/Vol] 106 mmol/L 98-107 [facility] Creatinine [Mass/volume] in Serum or PlasmaOrdered By: Marc Giron on 03-28-2023 Creatinine [Mass/Vol] 0.43 mg/dL 0.60-1.20 [facility] Eosinophils Auto (Bld) [#/Vo l]Ordered By: Marc Giron on 03-28-2023 Eosinophils (Bld) [#/Vol] 0.3 10*3/uL 0.0-0.45 [facility] Eosinophils/100 WBC Auto (Bl d)Ordered By: Marc Giron on 03-28-2023 Eosinophils/100 WBC (Bld) 5.0 % . [facility] Erythrocyte distribution wid th Auto (RBC) [Ratio]Ordered By: Marc Giron on 03-28-2023 Erythrocyte distribution width (RBC) [Ratio] 14.1 % 11.9-15.3 [facility] Globulin Calc (S) [Mass/Vol] Ordered By: Marc Giron on 03-28-2023 Globulin (S) [Mass/Vol] 3.1 g/dL [facility] Glucose [Mass/volume] in Ser um or PlasmaOrdered By: Marc Giron on 03-28-2023 Glucose [Mass/Vol] 98 mg/dL 70-100 [facility] Comment on above: ADA recommended refe rence rangeRandom Glucose Reference Range is dependent on time and content of last meal. Glucose of more than 200 mg/dL in a nonstressed, ambulatory subject supports the diagnosis of Diabetes Mellitus. Hematocrit Auto (Bld) [Volum e fraction]Ordered By: Marc Giron on 03-28-2023 Hematocrit (Bld) [Volume fraction] 36.2 % 34.0-46.4 [facility] Hemoglobin [Mass/volume] in BloodOrdered By: Marc Giron on 03-28-2023 Hemoglobin (Bld) [Mass/Vol] 12.2 g/dL 11.8-15.4 [facility] Leukocytes [#/volume] correc antoine for nucleated erythrocytes in Blood by Automated counOrdered By: Marc Giron on 03-28-2023 WBC corrected for nucl RBC Auto (Bld) [#/Vol] 6.7 10*3/uL 3.8-11.6 [facility] Lymphocytes Auto (Bld) [#/Vo l]Ordered By: Marc Giron on 03-28-2023 Lymphocytes (Bld) [#/Vol] 2.1 10*3/uL 1.00-4.8 [facility] Lymphocytes/100 WBC Auto (Bl d)Ordered By: Marc Giron on 03-28-2023 Lymphocytes/100 WBC (Bld) 30.9 % . [facility] MCH Auto (RBC) [Entitic mass ]Ordered By: Marc Giron on 03-28-2023 MCH (RBC) [Entitic mass] 36.4 pg 24.7-34.3 [facility] MCHC Auto (RBC) [Mass/Vol]Or dered By: Marc Giron on 03-28-2023 MCHC (RBC) [Mass/Vol] 33.7 g/dL 32.0-35.0 [facility] MCV Auto (RBC) [Entitic vol] Ordered By: Marc Giron on 03-28-2023 MCV (RBC) [Entitic vol] 107.9 fL 80-100 F [facility] Monocytes Auto (Bld) [#/Vol] Ordered By: Marc Giron on 03-28-2023 Monocytes (Bld) [#/Vol] 0.5 10*3/uL 0.0-0.8 [facility] Monocytes/100 WBC Auto (Bld) Ordered By: Marc Giron on 03-28-2023 Monocytes/100 WBC (Bld) 7.5 % . F [facility] Neutrophils Auto (Bld) [#/Vo l]Ordered By: Marc Giron on 03-28-2023 Neutrophils (Bld) [#/Vol] 3.7 10*3/uL 1.8-7.7 [facility] Neutrophils/100 WBC Auto (Bl d)Ordered By: Marc Giron on 03-28-2023 Neutrophils/100 WBC (Bld) 55.2 % . [facility] No Panel InformationOrdered By: Marc Giron on 03-28-2023 Estimated GFR (CKD-EPI) > 60.0 mL/Min [facility] Creatinine Clearance (Chem 169.70 [facility] Nucleated erythrocytes [Pres ence] in Blood by Automated countOrdered By: Marc Giron on 03-28-2023 Nucleated RBC Auto Ql (Bld) 0.2 /100{WBC} 0-0.5 [facility] Platelet mean volume Auto (B ld) [Entitic vol]Ordered By: Marc Giron on 03-28-2023 Platelet mean volume (Bld) [Entitic vol] 7.2 fL 6.3-10.7 [facility] Platelets Auto (Bld) [#/Vol] Ordered By: Marc Giron on 03-28-2023 Platelets (Bld) [#/Vol] 273 10*3/uL 150-450 [facility] Potassium [Moles/volume] in Serum or PlasmaOrdered By: Marc Giron on 03-28-2023 Potassium [Moles/Vol] 4.1 mmol/L 3.5-5.1 [facility] Prealbumin [Mass/volume] in Serum or PlasmaOrdered By: Marc Giron on 03-28-2023 Prealbumin [Mass/Vol] 19.3 mg/dL 17.0-34.0 [facility] Protein [Mass/volume] in Ser um or PlasmaOrdered By: Marc Giron on 03-28-2023 Protein [Mass/Vol] 6.4 g/dL 6.4-8.9 [facility] RBC Auto (Bld) [#/Vol]Ordere d By: Marc Giron on 03-28-2023 RBC (Bld) [#/Vol] 3.35 10*6/uL 3.60-5.00 [facility] Serum or plasma albumin/glob ulin mass ratioOrdered By: Marc Giron on 03-28-2023 Albumin/Globulin [Mass ratio] 1.1 {ratio} [facility] Serum or plasma anion gap de terminationOrdered By: Marc Giron on 03-28-2023 Anion gap [Moles/Vol] 11.6 mmol/L 6.0-15.0 [facility] Sodium [Moles/volume] in Ser um or PlasmaOrdered By: Marc Giron on 03-28-2023 Sodium [Moles/Vol] 137 mmol/L 136-145 [facility] Urea nitrogen [Mass/volume] in Serum or PlasmaOrdered By: Marc Giron on 03-28-2023 Urea nitrogen [Mass/Vol] 7 mg/dL 7-25 [facility] WBC Auto (Bld) [#/Vol]Ordere d By: Marc Giron on 03-28-2023 WBC (Bld) [#/Vol] 6.7 10*3/uL 3.8-11.6 [facility] Alanine aminotransferase [En zymatic activity/volume] in Serum or PlasmaOrdered By: Brianne Cabreraomavasyl on 03-24-2023 ALT [Catalytic activity/Vol] 23 U/L 7-52 [facility] Albumin [Mass/volume] in Ser um or Plasma by Bromocresol green (BCG) dye binding methoOrdered By: Obsharondagautam Cabreraomar on 03-24-2023 Albumin BCG dye [Mass/Vol] 3.1 g/dL 3.5-5.7 [facility] Alkaline phosphatase [Enzyma tic activity/volume] in Serum or PlasmaOrdered By: Obsharondagautam Cabreraomar on 03-24-2023 ALP [Catalytic activity/Vol] 112 U/L 34-104 [facility] Aspartate aminotransferase [ Enzymatic activity/volume] in Serum or PlasmaOrdered By: Obsharondah Rickomar on 03-24-2023 AST [Catalytic activity/Vol] 48 U/L 13-39 [facility] Bilirubin.total [Mass/volume ] in Serum or PlasmaOrdered By: Obaydah Rickomar on 03-24-2023 Bilirubin [Mass/Vol] 0.5 mg/dL 0.3-1.0 [facility] Calcium [Mass/volume] in Ser um or PlasmaOrdered By: Obsharondagautam Cabreraomar on 03-24-2023 Calcium [Mass/Vol] 9.0 mg/dL 8.6-10.3 [facility] Carbon dioxide, total [Moles /volume] in Serum or PlasmaOrdered By: Obsharondagautam Cabreraomar on 03-24-2023 CO2 [Moles/Vol] 30.8 mmol/L 21.0-31.0 [facility] Chloride [Moles/volume] in S caitlyn or PlasmaOrdered By: Obsharondah Daromar on 03-24-2023 Chloride [Moles/Vol] 102 mmol/L 98-107 [facility] Creatinine [Mass/volume] in Serum or PlasmaOrdered By: Obsharondah Daromar on 03-24-2023 Creatinine [Mass/Vol] 0.47 mg/dL 0.60-1.20 [facility] Globulin Calc (S) [Mass/Vol] Ordered By: Obsharondagautam Cabreraomar on 03-24-2023 Globulin (S) [Mass/Vol] 3.1 g/dL [facility] Glucose [Mass/volume] in Ser um or PlasmaOrdered By: Obluis Cabreraomar on 03-24-2023 Glucose [Mass/Vol] 88 mg/dL 70-100 [facility] Comment on above: ADA recommended refe rence rangeRandom Glucose Reference Range is dependent on time and content of last meal. Glucose of more than 200 mg/dL in a nonstressed, ambulatory subject supports the diagnosis of Diabetes Mellitus. Magnesium [Mass/volume] in S caitlyn or PlasmaOrdered By: Obsharongautam Cabreraomar on 03-24-2023 Magnesium [Mass/Vol] 1.9 mg/dL 1.9-2.7 [facility] No Panel InformationOrdered By: Obsharondah Rickomar on 03-24-2023 Estimated GFR (CKD-EPI) > 60.0 mL/Min [facility] Creatinine Clearance (Chem 155.26 [facility] Potassium [Moles/volume] in Serum or PlasmaOrdered By: Obsharondah Rickomar on 03-24-2023 Potassium [Moles/Vol] 4.5 mmol/L 3.5-5.1 [facility] Protein [Mass/volume] in Ser um or PlasmaOrdered By: Obsharondah Daromar on 03-24-2023 Protein [Mass/Vol] 6.2 g/dL 6.4-8.9 [facility] Serum or plasma albumin/glob ulin mass ratioOrdered By: Obluis Cabreraomar on 03-24-2023 Albumin/Globulin [Mass ratio] 1.0 {ratio} [facility] Serum or plasma anion gap de terminationOrdered By: Obluis Cabreraomar on 03-24-2023 Anion gap [Moles/Vol] 9.7 mmol/L 6.0-15.0 [facility] Sodium [Moles/volume] in Ser um or PlasmaOrdered By: Obsharondagautam Cabreraomar on 03-24-2023 Sodium [Moles/Vol] 138 mmol/L 136-145 [facility] Urea nitrogen [Mass/volume] in Serum or PlasmaOrdered By: Obluis Cabreraomar on 03-24-2023 Urea nitrogen [Mass/Vol] 6 mg/dL 7-25 [facility] Erythrocyte distribution wid th Auto (RBC) [Ratio]Ordered By: Brianne Umanzor on 03-23-2023 Erythrocyte distribution width (RBC) [Ratio] 14.6 % 11.9-15.3 [facility] Hematocrit Auto (Bld) [Volum e fraction]Ordered By: Brianne Umanzor on 03-23-2023 Hematocrit (Bld) [Volume fraction] 31.7 % 34.0-46.4 [facility] Hemoglobin [Mass/volume] in BloodOrdered By: Brianne Floresr on 03-23-2023 Hemoglobin (Bld) [Mass/Vol] 10.9 g/dL 11.8-15.4 [facility] Leukocytes [#/volume] correc antoine for nucleated erythrocytes in Blood by Automated counOrdered By: Brianne Cabreraomar on 03-23-2023 WBC corrected for nucl RBC Auto (Bld) [#/Vol] 6.3 10*3/uL 3.8-11.6 [facility] MCH Auto (RBC) [Entitic mass ]Ordered By: Brianne Cabreraomar on 03-23-2023 MCH (RBC) [Entitic mass] 37.0 pg 24.7-34.3 [facility] MCHC Auto (RBC) [Mass/Vol]Or dered By: Obsharondagautam Cabreraomar on 03-23-2023 MCHC (RBC) [Mass/Vol] 34.5 g/dL 32.0-35.0 [facility] MCV Auto (RBC) [Entitic vol] Ordered By: Brianne Cabreraomar on 03-23-2023 MCV (RBC) [Entitic vol] 107.1 fL 80-100 [facility] Platelet mean volume Auto (B ld) [Entitic vol]Ordered By: Obluis aCbreraomar on 03-23-2023 Platelet mean volume (Bld) [Entitic vol] 7.2 fL 6.3-10.7 [facility] Platelets Auto (Bld) [#/Vol] Ordered By: Brianne Cabreraomar on 03-23-2023 Platelets (Bld) [#/Vol] 237 10*3/uL 150-450 [facility] RBC Auto (Bld) [#/Vol]Ordere d By: Brianne Cabreraomar on 03-23-2023 RBC (Bld) [#/Vol] 2.96 10*6/uL 3.60-5.00 [facility] Aerobic cultureOrdered By: Olivia Edwards on 03-22-2023 Bacteria identified Aer cx Nom (Unsp spec) No Growth 2 Days [facility] Albumin [Mass/volume] in Ser um or PlasmaOrdered By: Chele Gamino on 03-22-2023 Albumin [Mass/Vol] 3.1 g/dL 2.9-4.4 [facility] Alpha tocopherol [Mass/volum e] in Serum or PlasmaOrdered By: Chele Gamino on 03-22-2023 Alpha tocopherol [Mass/Vol] 10.9 mg/L 5.9-19.4 [facility] Comment on above: This test was devswatio ped and its performance characteristicsdetermined by [facility]. It has not been cleared orapproved by the Food and Drug Administration. Ammonia [Moles/volume] in Pl asmaOrdered By: Chele Gamino on 03-22-2023 Ammonia (P) [Moles/Vol] 57 umol/L 11-35 [facility] Amphetamine Screen Ql (U)Ord ered By: Chele Gamino on 03-22-2023 Amphetamines Ql (U) Negative Negative [facility] Anaerobic cultureOrdered By: Bernard Edwards on 03-22-2023 Bacteria identified Anaer cx Nom (Unsp spec) No Anaerobes Isolated 3 Days [facility] Bacterial blood cultureOrder ed By: Bernard Edwards on 03-22-2023 Bacteria identified Cx Nom (Bld) NO GROWTH 5 DAYS [facility] Barbiturates [Presence] in U rine by Screen methodOrdered By: Chele Gamino on 03-22-2023 Barbiturates Screen Ql (U) Negative Negative [facility] Benzodiazepines Screen Ql (U )Ordered By: Chele Gamino on 03-22-2023 Benzodiazepines Ql (U) Negative Negative [facility] Benzoylecgonine [Presence] i n Urine by Screen methodOrdered By: Chele Gamino on 03-22-2023 Benzoylecgonine Screen Ql (U) Negative Negative [facility] Bilirubin.direct [Mass/volum e] in Serum or PlasmaOrdered By: Yoana Rico on 03-22-2023 Bilirubin.direct [Mass/Vol] 0.10 mg/dL 0.03-0.18 [facility] Cannabinoids [Presence] in U rine by Screen methodOrdered By: Chele Gamino on 03-22-2023 Cannabinoids Screen Ql (U) Negative Negative [facility] Comment on above: These are unconfirme d results and should not be used for legal purposes. Drug Cut-Off Concentration: AMPH 1000 ng/mL ALEXANDRO 200 ng/mL ATILIO 200 ng/mL COCM 300 ng/mL OP 300 ng/mL PCP 25 ng/mL THC 20 ng/mL Folate [Mass/volume] in Seru m or PlasmaOrdered By: Yoana Rico on 03-22-2023 Folate [Mass/Vol] 2.3 ng/mL >5.9 [facility] Comment on above: Folate reference ran ge: >5.9 ng/mlThe WHO technical consultation on folate and vitamin [id number] has determined that folate concentrations lessthan 4 ng/ml are considered deficient. Gamma-tocopherol measurement (mass/volume)Ordered By: Chele Gamino on 03-22-2023 Gamma tocopherol [Mass/Vol] 1.9 mg/L 0.7-4.9 [facility] Comment on above: This test was develo ped and its performance characteristicsdetermined by [facility]. It has not been cleared orapproved by the Food and Drug Administration.Reference intervals for alpha and gamma-tocopheroldetermined from National Health and Nutrition ExaminationSurvey, 0212-7609. Individuals with alpha-tocopherol levelsless than 5.0 mg/L are considered vitamin E deficient.Performed at: [facility] [address] [id number] Director: Lisa Ramos MD, Phone: [phone] Glucose mean value [Mass/vol ume] in Blood Estimated from glycated hemoglobinOrdered By: Chele Gamino on 03-22-2023 Average glucose Estimated from glycated hemoglobin (Bld) [Mass/Vol] 94 mg/dL [facility] Gram stain for investigation of transfusion reactionOrdered By: Bernard Edwards on 03-22-2023 Microscopic observation Gram stain Nom (Unsp spec) [facility] Hemoglobin A1c percentageOrd ered By: Chele Gamino on 03-22-2023 HbA1c (Bld) [Mass fraction] 4.9 % 4.3-5.6 [facility] Comment on above: Increased risk for d iabetes: 5.7 - 6.4diabetes: >6.4glycemic control for adults with diabetes: <7.0 Hepatitis C virus IgG Ab [Pr esence] in Serum or Plasma by ImmunoassayOrdered By: Chele Gamino on 03-22-2023 HCV IgG IA Ql Non-Reactive Non Reactive [facility] IgA [Mass/volume] in Serum o r PlasmaOrdered By: Chele Gamino on 03-22-2023 IgA [Mass/Vol] 485 mg/dL 87-352 [facility] IgG [Mass/volume] in Serum o r PlasmaOrdered By: Chele Gamino on 03-22-2023 IgG [Mass/Vol] 1046 mg/dL 586-1602 [facility] IgM [Mass/volume] in Serum o r PlasmaOrdered By: Chele Gamino on 09-01-2023 IgM [Mass/Vol] 343 mg/dL 26-217 [facility] Lactate [Moles/volume] in Se rum or PlasmaOrdered By: Brianne Umanzor on 03-22-2023 Lactate [Moles/Vol] 3.4 mmol/L 0.5-2.2 [facility] Comment on above: Critical Result : Ca lled to and read back by: KHUSHBU OLIVARES at: 03/22/2023 15:35:40 by:ACE No Panel InformationOrdered By: Chele Gamino on 03-22-2023 Hepatitis C Interpretation See comment . [facility] Comment on above: Not infected with HC V unless early or acute infection issuspected (which may be delayed in an immunocompromisedindividual), or other evidence exists to indicate HCVinfection.Performed at: [facility] [address] [id number] Director: Breezy Jones PhD, Phone: [phone] Hepatitis C RNA Quantitative N/A [facility] Protein Electrophoresis M-Tomas Not observed g/dL Not Observed [facility] Protein Electrophoresis Note See comment . [facility] Comment on above: Protein electrophore sis scan will follow via computer,mail, or director education delivery.Performed at: [facility] [address] [id number] Director: Breezy Jones PhD, Phone: [phone] Serum Immunofixation See comment . [facility] Comment on above: No monoclonality det ected. Opiates [Presence] in Urine by Screen methodOrdered By: Chele Gamino on 03-22-2023 Opiates Screen Ql (U) Negative Negative [facility] Phencyclidine Screen Ql (U)O rdered By: Chele Gamino on 03-22-2023 Phencyclidine Ql (U) Negative Negative [facility] Phosphate [Mass/volume] in S caitlyn or PlasmaOrdered By: Yoana Rico on 03-22-2023 Phosphate [Mass/Vol] 3.4 mg/dL 3.7-7.2 [facility] Protein [Mass/volume] in Ser um or PlasmaOrdered By: Chele Gamino on 03-22-2023 Protein [Mass/Vol] 5.9 g/dL 6.0-8.5 [facility] Serum cryoglobulin detection Ordered By: Chele Gamino on 03-22-2023 Cryoglobulin Ql (S) See comment None detected [facility] Comment on above: None Detected at 72 hoursThis test was developed and its performance characteristicsdetermined by [employer]. It has not been cleared orapproved by the Food and Drug Administration.Performed at: [employer] [facility] [address] [id number] Director: Breezy Jones PhD, Phone: [phone] Serum globulin measurement ( mass/volume)Ordered By: Chele Gamino on 03-22-2023 Globulin (S) [Mass/Vol] 2.8 g/dL 2.2-3.9 [facility] Serum or plasma albumin/glob ulin mass ratioOrdered By: Chele Gamino on 03-22-2023 Albumin/Globulin [Mass ratio] 1.1 {ratio} 0.7-1.7 [facility] Serum or plasma alpha 1 glob ulin measurement by electrophoresis (mass/volume)Ordered By: Chele Gamino on 03-22-2023 Alpha 1 globulin Elph [Mass/Vol] 0.2 g/dL 0.0-0.4 [facility] Serum or plasma alpha 2 glob ulin measurement by electrophoresis (mass/volume)Ordered By: Chele Gamino on 03-22-2023 Alpha 2 globulin Elph [Mass/Vol] 0.7 g/dL 0.4-1.0 [facility] Serum or plasma beta globuli n measurement by electrophoresis (mass/volume)Ordered By: Chele Gamino on 03-22-2023 Beta globulin Elph [Mass/Vol] 0.9 g/dL 0.7-1.3 [facility] Serum or plasma free cefurox audelia measurement (mass/volume)Ordered By: Chele Gamino on 03-22-2023 Cefuroxime free [Mass/Vol] Negative Negative [facility] Comment on above: Performed at: [facility] [address] [id number] Director: Breezy Jones PhD, Phone: [phone] Serum or plasma gamma globul in measurement by electrophoresis (mass/volume)Ordered By: Chele Gamino on 03-22-2023 Gamma globulin Elph [Mass/Vol] 1.1 g/dL 0.4-1.8 [facility] Serum or plasma non-glucuron idated bilirubin measurement (mass/volume)Ordered By: Yoana Rico on 03-22-2023 Bilirubin.indirect [Mass/Vol] 0.2 mg/dL [facility] Thyrotropin [Units/volume] i n Serum or PlasmaOrdered By: Chele Gamino on 03-22-2023 TSH Qn 2.53 m[IU]/L 0.45-5.33 [facility] Vitamin B12 ser/plasOrdered By: Yoana Rico on 03-22-2023 Cobalamin (Vitamin B12) [Mass/Vol] 417 pg/mL 180-914 [facility] Activated partial thrombopla stin time (aPTT) in platelet poor plasma by coagulation aOrdered By: Bernard Edwards on 03-21-2023 aPTT Coag (PPP) [Time] 30.4 s 25.1-36.5 [facility] Aerobic cultureOrdered By: Olivia Edwards on 03-21-2023 Bacteria identified Aer cx Nom (Unsp spec) No Growth 2 Days [facility] Alanine aminotransferase [En zymatic activity/volume] in Serum or PlasmaOrdered By: Bernard Edwards on 03-21-2023 ALT [Catalytic activity/Vol] 37 U/L 7-52 [facility] Albumin [Mass/volume] in Ser um or Plasma by Bromocresol green (BCG) dye binding methoOrdered By: Bernard Edwards on 03-21-2023 Albumin BCG dye [Mass/Vol] 3.5 g/dL 3.5-5.7 [facility] Alkaline phosphatase [Enzyma tic activity/volume] in Serum or PlasmaOrdered By: Bernard Edwards on 03-21-2023 ALP [Catalytic activity/Vol] 112 U/L 34-104 [facility] Anaerobic cultureOrdered By: Bernard Edwards on 03-21-2023 Bacteria identified Anaer cx Nom (Unsp spec) No Anaerobes Isolated 3 Days [facility] Aspartate aminotransferase [ Enzymatic activity/volume] in Serum or PlasmaOrdered By: Bernard Edwards on 03-21-2023 AST [Catalytic activity/Vol] 79 U/L 13-39 [facility] Automated erythrocytes count in urine sediment (number/area)Ordered By: PROVIDER TEMP on 03-21-2023 RBC Auto (Urine sed) [#/Area] 0-1 [HPF] 0-4 [facility] Automated leukocytes count i n urine sediment (number/area)Ordered By: PROVIDER TEMP on 03-21-2023 WBC Auto (Urine sed) [#/Area] 20-49 [HPF] 0-4 [facility] Automated urine hyaline cast s count (number/volume)Ordered By: PROVIDER TEMP on 03-21-2023 Hyaline casts Auto (U) [#/Vol] None seen [LPF] 0-1 [facility] Bacterial blood cultureOrder ed By: Bernard Edwards on 03-21-2023 Bacteria identified Cx Nom (Bld) NO GROWTH 5 DAYS [facility] Basophils Auto (Bld) [#/Vol] Ordered By: Bernard Edwards on 03-21-2023 Basophils (Bld) [#/Vol] 0.1 10*3/uL 0.0-0.2 [facility] Basophils/100 WBC Auto (Bld) Ordered By: Bernard Edwards on 03-21-2023 Basophils/100 WBC (Bld) 1.6 % . [facility] Bilirubin Test strip Ql (U)O rdered By: PROVIDER TEMP on 03-21-2023 Bilirubin Ql (U) Negative Negative [facility] Bilirubin.direct [Mass/volum e] in Serum or PlasmaOrdered By: Bernard Edwards on 03-21-2023 Bilirubin.direct [Mass/Vol] 0.10 mg/dL 0.03-0.18 [facility] Bilirubin.total [Mass/volume ] in Serum or PlasmaOrdered By: Bernard Edwards on 03-21-2023 Bilirubin [Mass/Vol] 0.5 mg/dL 0.3-1.0 [facility] C reactive protein [Mass/vol ume] in Serum or PlasmaOrdered By: Bernard Edwards on 03-21-2023 CRP [Mass/Vol] < 0.5 mg/dL 0.0-0.5 [facility] Calcium [Mass/volume] in Ser um or PlasmaOrdered By: Bernard Edwards on 03-21-2023 Calcium [Mass/Vol] 8.5 mg/dL 8.6-10.3 [facility] Carbon dioxide, total [Moles /volume] in Serum or PlasmaOrdered By: Bernard Edwards on 03-21-2023 CO2 [Moles/Vol] 20.0 mmol/L 21.0-31.0 [facility] Casts typing in urine sedime nt by light microscopyOrdered By: PROVIDER TEMP on 03-21-2023 Casts LM Nom (Urine sed) None seen [LPF] None Seen [facility] Cerebrospinal fluid post-chloé trifugation appearance determinationOrdered By: Bernard Edwards on 03-21-2023 Appearance (Spun CSF) Colorless Colorless [facility] Cerebrospinal fluid sample t ube volume measurementOrdered By: Bernard Edwards on 03-21-2023 Specimen volume (CSF) 3.5 mL [facility] Chloride [Moles/volume] in S caitlyn or PlasmaOrdered By: Bernard Edwards on 03-21-2023 Chloride [Moles/Vol] 108 mmol/L 98-107 [facility] Color Auto (U)Ordered By: YARON GUERRERO TEMLata on 03-21-2023 Color (U) Yellow Yellow [facility] Color CSFOrdered By: Bernard Edwards on 03-21-2023 Color (CSF) Colorless Colorless [facility] Creatinine [Mass/volume] in Serum or PlasmaOrdered By: Bernard Edwards on 03-21-2023 Creatinine [Mass/Vol] 0.49 mg/dL 0.60-1.20 [facility] Eosinophils Auto (Bld) [#/Vo l]Ordered By: Bernard Edwards on 03-21-2023 Eosinophils (Bld) [#/Vol] 0.2 10*3/uL 0.0-0.45 [facility] Eosinophils/100 WBC Auto (Bl d)Ordered By: Bernard Edwards on 03-21-2023 Eosinophils/100 WBC (Bld) 2.7 % . [facility] Erythrocyte distribution wid th Auto (RBC) [Ratio]Ordered By: Bernard Edwards on 03-21-2023 Erythrocyte distribution width (RBC) [Ratio] 14.5 % 11.9-15.3 [facility] Erythrocyte sedimentation ra te by Photometric methodOrdered By: Bernard Edwards on 03-21-2023 ESR Photometric method (Bld) [Velocity] 21 mm/hr 0-19 [facility] Globulin Calc (S) [Mass/Vol] Ordered By: Bernard Edwards on 03-21-2023 Globulin (S) [Mass/Vol] 3.3 g/dL [facility] Glucose [Mass/volume] in Cer ebral spinal fluidOrdered By: Bernard Edwards on 03-21-2023 Glucose (CSF) [Mass/Vol] 84 mg/dL 40-70 [facility] Glucose [Mass/volume] in Ser um or PlasmaOrdered By: Bernard Edwards on 03-21-2023 Glucose [Mass/Vol] 130 mg/dL 70-100 [facility] Comment on above: ADA recommended refe rence rangeRandom Glucose Reference Range is dependent on time and content of last meal. Glucose of more than 200 mg/dL in a nonstressed, ambulatory subject supports the diagnosis of Diabetes Mellitus. Gram stain for investigation of transfusion reactionOrdered By: Bernard Edwards on 03-21-2023 Microscopic observation Gram stain Nom (Unsp spec) [facility] HCG ( test) IA.rapi d Ql (U)Ordered By: Bernard Edwards on 03-21-2023 HCG ( test) Ql (U) Negative [facility] Hematocrit Auto (Bld) [Volum e fraction]Ordered By: Bernadr Edwards on 03-21-2023 Hematocrit (Bld) [Volume fraction] 37.8 % 34.0-46.4 [facility] Hemoglobin [Mass/volume] in BloodOrdered By: Bernard Edwards on 03-21-2023 Hemoglobin (Bld) [Mass/Vol] 12.7 g/dL 11.8-15.4 [facility] INR in Platelet poor plasma by Coagulation assayOrdered By: Bernard Edwards on 03-21-2023 INR Coag (PPP) [Relative time] 1.1 {INR} [facility] Comment on above: INR Therapeutic Rang e [...] 03-21-2023 Ketones (U) [Mass/Vol] Trace Negative [facility] - CoagulationOrde red By: Bernard Edwards on 03-21-2023 PT Coag (PPP) [Time] 12.4 s 9.0-12.9 [facility] Lactate [Moles/volume] in Se rum or PlasmaOrdered By: Bernard Edwards on 03-21-2023 Lactate [Moles/Vol] 3.9 mmol/L 0.5-2.2 [facility] Comment on above: Critical Result : Ca lled to and read back by: DIPTI REGALADO at: 03/21/2023 22:31:27 by:LFM Leukocytes [#/volume] correc antoine for nucleated erythrocytes in Blood by Automated counOrdered By: Bernard Edwards on 03-21-2023 WBC corrected for nucl RBC Auto (Bld) [#/Vol] 7.2 10*3/uL 3.8-11.6 [facility] Lymphocytes Auto (Bld) [#/Vo l]Ordered By: Bernard Edwards on 03-21-2023 Lymphocytes (Bld) [#/Vol] 2.1 10*3/uL 1.00-4.8 [facility] Lymphocytes/100 WBC Auto (Bl d)Ordered By: Bernard Edwards on 03-21-2023 Lymphocytes/100 WBC (Bld) 29.7 % . [facility] MCH Auto (RBC) [Entitic mass ]Ordered By: Bernard Edwards on 03-21-2023 MCH (RBC) [Entitic mass] 36.3 pg 24.7-34.3 [facility] MCHC Auto (RBC) [Mass/Vol]Or dered By: Bernard Edwards on 03-21-2023 MCHC (RBC) [Mass/Vol] 33.5 g/dL 32.0-35.0 [facility] MCV Auto (RBC) [Entitic vol] Ordered By: Bernard Edwards on 03-21-2023 MCV (RBC) [Entitic vol] 108.6 fL 80-100 [facility] Magnesium [Mass/volume] in S caitlyn or PlasmaOrdered By: Bernard Edwards on 03-21-2023 Magnesium [Mass/Vol] 1.4 mg/dL 1.9-2.7 [facility] Manual cerebrospinal fluid e rythrocytes count (number/volume)Ordered By: Bernard Edwards on 03-21-2023 RBC Manual cnt (CSF) [#/Vol] 0 /uL [facility] Comment on above: The reference interv al and other method performance specifications have not been established for this body fluid. The test result must be integrated into the clinical context for interpretation. Meningitis+Encephalitis path ogens DNA and RNA panel - Cerebral spinal fluid by OKSANA wiOrdered By: Bernard Edwards on 03-21-2023 Meningitis+Encephalitis pathogens DNA and RNA panel OKSANA+non-probe (CSF) [facility] Monocyte distribution width [Entitic volume] in Blood by AutomatedOrdered By: Bernard Edwards on 03-21-2023 Monocyte distribution width Auto (Bld) [Entitic vol] 19.31 % 0.00-20.00 [facility] Monocytes Auto (Bld) [#/Vol] Ordered By: Bernard Edwards on 03-21-2023 Monocytes (Bld) [#/Vol] 0.5 10*3/uL 0.0-0.8 [facility] Monocytes/100 WBC Auto (Bld) Ordered By: Bernard Edwards on 03-21-2023 Monocytes/100 WBC (Bld) 7.6 % . [facility] Neutrophils Auto (Bld) [#/Vo l]Ordered By: Bernard Edwards on 03-21-2023 Neutrophils (Bld) [#/Vol] 4.2 10*3/uL 1.8-7.7 [facility] [facility]100 WBC Auto (Bl d)Ordered By: Bernard Edwards on 03-21-2023 Neutrophils/100 WBC (Bld) 58.4 % . [facility] Nitrite Test strip Ql (U)Ord ered By: PROVIDER TEMP on 03-21-2023 Nitrite Ql (U) Positive Negative [facility] No Panel InformationOrdered By: Bernard Edwards on 03-21-2023 CSF Appearance Clear Clear [facility] CSF Differential Comment See comment [facility] Comment on above: NO NUCLEATED CELLS S EEN. DIFFERENTIAL NOT PREFORMED CSF Eosinophils N/A [facility] CSF Lymphocytes N/A [facility] CSF Monocytes N/A [facility] CSF Neutrophils Hydrochloric Manufacturing Supervisor [facility] Comment on above: The reference interv al and other method performance specifications have not been established for this body fluid. The test result must be integrated into the clinical context for interpretation. CSF Tube Number Tube number: 3 [facility] Estimated GFR (CKD-EPI) > 60.0 mL/Min [facility] Creatinine Clearance (Chem 148.92 [facility] Nucleated cells [#/volume] i n Cerebral spinal fluid by Manual countOrdered By: Bernard Edwards on 03-21-2023 Nucleated cells Manual cnt (CSF) [#/Vol] 0 10*3/uL 0-5 [facility] Nucleated erythrocytes [Pres ence] in Blood by Automated countOrdered By: Bernard Edwards on 03-21-2023 Nucleated RBC Auto Ql (Bld) 0.1 /100{WBC} 0-0.5 [facility] Phosphate [Mass/volume] in S caitlyn or PlasmaOrdered By: Bernard Edwards on 03-21-2023 Phosphate [Mass/Vol] 2.3 mg/dL 3.7-7.2 [facility] Platelet mean volume Auto (B ld) [Entitic vol]Ordered By: Bernard Edwards on 03-21-2023 Platelet mean volume (Bld) [Entitic vol] 7.9 fL 6.3-10.7 [facility] Platelets Auto (Bld) [#/Vol] Ordered By: Bernard Edwards on 03-21-2023 Platelets (Bld) [#/Vol] 319 10*3/uL 150-450 [facility] Potassium [Moles/volume] in Serum or PlasmaOrdered By: Bernard Edwards on 03-21-2023 Potassium [Moles/Vol] 3.2 mmol/L 3.5-5.1 [facility] Protein Auto test strip (U) [Mass/Vol]Ordered By: PROVIDER TEMP on 03-21-2023 Protein (U) [Mass/Vol] Trace mg/dL Negative F [facility] Protein [Mass/volume] in Cer ebral spinal fluidOrdered By: Bernard Edwards on 03-21-2023 Protein (CSF) [Mass/Vol] 39 mg/dL 15-45 [facility] Protein [Mass/volume] in Ser um or PlasmaOrdered By: Bernard Edwards on 03-21-2023 Protein [Mass/Vol] 6.8 g/dL 6.4-8.9 [facility] Protein fractions.oligoclona l bands.intrathecal [Presence] in Serum and CSFOrdered By: Bernard Edwards on 03-21-2023 Protein fractions.oligoclonal bands.intrathecal Ql (S+CSF) See comment . [facility] Comment on above: Zero (0) oligoclonal bands were observed in the CSF.However two (2) paired bands were observed in both the CSFand serum. Paired bands suggest an immune response to aninflammatory process outside the FREELANCE DIRECTOR and are unlikely torepresent a FREELANCE DIRECTOR demyelinating disease.Interpretation: Criteria for Positivity: Four [...] using IsoelectricFocusing (IEF) and immunoblotting methodology.Performed at: [address] [id number] Director: Breezy Jones PhD, Phone: [phone] RBC Auto (Bld) [#/Vol]Ordere d By: Bernard Edwards on 03-21-2023 RBC (Bld) [#/Vol] 3.48 10*6/uL 3.60-5.00 [facility] Serum or plasma albumin/glob ulin mass ratioOrdered By: Bernard Edwards on 03-21-2023 Albumin/Globulin [Mass ratio] 1.1 {ratio} [facility] Serum or plasma anion gap de terminationOrdered By: Bernard Edwards on 03-21-2023 Anion gap [Moles/Vol] 16.2 mmol/L 6.0-15.0 [facility] Serum or plasma non-glucuron idated bilirubin measurement (mass/volume)Ordered By: Bernard Edwards on 03-21-2023 Bilirubin.indirect [Mass/Vol] 0.4 mg/dL [facility] Sodium [Moles/volume] in Ser um or PlasmaOrdered By: Bernard Edwards on 03-21-2023 Sodium [Moles/Vol] 141 mmol/L 136-145 [facility] Specific gravity Auto test s trip (U) [Rel density]Ordered By: PROVIDER TEMP on 03-21-2023 Specific gravity (U) [Rel density] 1.019 1.001-1.030 [facility] Squamous epithelial cells de tection in urine sediment by light microscopyOrdered By: PROVIDER TEMP on 03-21-2023 Epithelial cells.squamous LM Ql (Urine sed) 10-19 [HPF] 0-2 [facility] Urea nitrogen [Mass/volume] in Serum or PlasmaOrdered By: Bernard Edwards on 03-21-2023 Urea nitrogen [Mass/Vol] 3 mg/dL 7-25 [facility] Urine bacteria detection by automated methodOrdered By: PROVIDER TEMP on 03-21-2023 Bacteria Auto Ql (U) 4+ None Seen [facility] Urine clarity by refractomet ry automatedOrdered By: PROVIDER TEMP on 03-21-2023 Clarity Refractometry automated (U) Cloudy Clear [facility] Urine culture routineOrdered By: PROVIDER TEMP on 03-21-2023 Bacteria identified Cx Nom (U) Klebsiella pneumoniae [facility] Bacteria identified Cx Nom (U) Klebsiella pneumoniae [facility] Urine glucose measurement by automated test strip (mass/volume)Ordered By: PROVIDER TEMP on 03-21-2023 Glucose Auto test strip (U) [Mass/Vol] Normal mg/dL Normal [facility] Urine hemoglobin detection b y automated test stripOrdered By: PROVIDER TEMP on 03-21-2023 Hemoglobin Auto test strip Ql (U) Negative Negative [facility] Urine leukocyte esterase det ection by automated test stripOrdered By: PROVIDER TEMP on 03-21-2023 Leukocyte esterase Auto test strip Ql (U) 2+ Negative [facility] Urobilinogen Auto test strip (U) [Mass/Vol]Ordered By: PROVIDER TEMP on 03-21-2023 Urobilinogen (U) [Mass/Vol] Normal mg/dL Normal [facility] WBC Auto (Bld) [#/Vol]Ordere d By: Bernard Edwards on 03-21-2023 WBC (Bld) [#/Vol] 7.2 10*3/uL 3.8-11.6 [facility] pH Auto test strip (U)Ordere d By: PROVIDER TEMP on 03-21-2023 pH (U) 5.0 [pH] 5.0-9.0 [facility] ED NOTEon 01-29-2023 ED NOTE HNO ID: [id number] Author: NATHEN García Service: ? Author Type: Clinical Translator Deaf Type: ED Notes Filed: 01/29/2023 12:55 AM Note Text: Where is my mom? Can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 above: Order Comment: Speci men Type: URINE SPECIMENOrdering Facility: [facility] Address: [address] [place], [place] [address] Performed By: #### 2 4356-8 ####[facility] [id number] [place] [address] [facility]CLIA [id number] [place] [address] [place] Color (U) Yellow Normal Yellow [facility] Comment on above: Order Comment: Speci men Type: URINE SPECIMENOrdering Facility: [facility] Address: [address] [place] [address] Performed By: #### 2 4356-8 ####[facility] [id number] [address] [place] [address] LABCLIA [id number] [place] [address] [place] Epithelial cells LM.HPF (Urine sed) [#/Area] Many Normal [facility] Comment on above: Order Comment: Speci men Type: URINE SPECIMENOrdering Facility: [facility] Address: [address] [place] [address] Performed By: #### 2 4356-8 ####[facility] [id number] [address] [place] [address] LABCLIA [id number] [place] [address] [place] Glucose Test strip (U) [Mass/Vol] Negative Normal Negative [facility] Comment on above: Order Comment: Speci men Type: URINE SPECIMENOrdering Facility: [facility] Address: [address] [place] [address] Performed By: #### 2 4356-8 ####[facility] [id number] [address] [place], [place] [address] [facility]CLIA [id number] [place] [address] [place] Hemoglobin Ql (U) Negative Normal Negative, Trace [facility] Comment on above: Order Comment: Speci men Type: URINE SPECIMENOrdering Facility: [facility] Address: [address] [place], [place] [address] Performed By: #### 2 4356-8 ####[facility] [id number] [address] [place] [address] LABCLIA [id number] [address] STATES [facility] Ketones Ql (U) Negative Normal Negative [facility] Comment on above: Order Comment: Speci men Type: URINE SPECIMENOrdering Facility: [facility] Address: [address] [place] [address] Performed By: #### 2 4356-8 ####[facility] [id number] [address] LABCLIA [id number] [address] Leukocyte esterase Test strip Ql (U) 1+ Abnormal Negative [facility] Comment on above: Order Comment: Speci men Type: URINE SPECIMENOrdering Facility: [facility] Address: [address] [place] [address] Performed By: #### 2 4356-8 ####[facility] [id number] [place] [address] [facility] LABCLIA [id number] [place] [id number] [place] Nitrite Ql (U) Negative Normal Negative [facility] Comment on above: Order Comment: Speci men Type: URINE SPECIMENOrdering Facility: [facility] Address: [address] [place] [id number] Performed By: #### 2 4356-8 ####[facility] [id number] [place] [address] [facility] LABCLIA [id number] [place] [id number] [place] OF [place] pH (U) 6.0 [pH] Normal 5.0-8.0 [facility] Comment on above: Order Comment: Speci men Type: URINE SPECIMENOrdering Facility: [facility] Address: [address] [place] [address] Performed By: #### 2 4356-8 ####[facility] [id number] [address] LABCLIA [id number] [address] STATES OF [place] Protein (U) [Mass/Vol] Negative Normal Negative [facility] Comment on above: Order Comment: Speci men Type: URINE SPECIMENOrdering Facility: [facility] Address: [address] [place] [address] Performed By: #### 2 4356-8 ####[facility] [id number] [address] LABCLIA [id number] [address] STATES OF [place] RBC LM.HPF (Urine sed) [#/Area] 0-3 /HPF Normal 0-3 /HPF [facility] Comment on above: Order Comment: Speci men Type: URINE SPECIMENOrdering Facility: [facility] Address: [address] [place] [address] Performed By: #### 2 4356-8 ####[facility] [id number] [address] LABCLIA [id number] [place] [address] [place] Specific gravity (U) [Rel density] <=1.005 Low 1.005-1.030 [facility] Comment on above: Order Comment: Speci men Type: URINE SPECIMENOrdering Facility: [facility] Address: [address] [place] [address] Performed By: #### 2 4356-8 ####[facility] [id number] [address] [place] [address] LABCLIA [id number] OF [facility] Urobilinogen Ql (U) 0.2 EU/dL Normal 0.2-1.0 EU/dL [facility] Comment on above: Order Comment: Speci men Type: URINE SPECIMENOrdering Facility: [facility] Address: [address] [place] [address] Performed By: #### 2 4356-8 ####[facility] [id number] [address] LABCLIA [id number] [address] STATES OF [place] WBC LM.HPF (Urine sed) [#/Area] 11-25 /HPF Abnormal 0-5 /HPF [facility] Comment on above: Order Comment: Speci men Type: URINE SPECIMENOrdering Facility: [facility] Address: [address] [place] [address] Performed By: #### 2 4356-8 ####[facility] [id number] [address] LABCLIA [id number] [address] STATES OF [place] Urinalysis complete pnl [...] Intermediate >32 , Resistant >64 [facility] Comment on above: Order Comment: Speci men Type: URINE SPECIMENOrdering Facility: [facility] Address: [address] [place] [address] [place] [address] Performed By: #### 2 4356-8 ####[facility] [id number] [address] STATES OF [facility] LABCLIA [id number] [facility] [place] [id number] [place] XR CSPINE MIN 4 VIEWSon 09-21 XR [...] by: KARYNA LANGFORD Date: 2022-10-19 08:05 Normal [facility] MRI LSPINE WO CONon 10-19-19 23 MRI [...] by: KARYNA LANGFORD Date: 2022-10-18 15:24 Normal [facility] XR LSPINE MIN 4 VIEWSon 09-19 [...] by: DAVID TRUONG Date: 2022-09-28 07:03 Normal [facility] MAMMO POST BIOPSY RIGHTon MAMMO POST BIOPSY RIGHT Patient: RICA STOUT Exam Date: 09/27/2022 : 1995 Gender:F Ordering : DANUTA [facility] Admission #: [id number] Family : DR KARYNA LANGFORD M.D. Order #: [id number] CLICK HERE TO VIEW EXAM This report [...] MD on 10/03/2022 at 06:51 Normal [facility] US VAC ASST BX BRST RT W CLI Cyrus 09-27-2022 US VAC ASST BX BRST RT W CLIP Patient: RICA STOUT Exam Date: 09/27/2022 : 1995 Gender:F Ordering : DANUTA LataAngel [facility] Admission #: [id number] Family : Order #: [id number] CLICK HERE TO VIEW EXAM This report [...] MD on 10/03/2022 at 06:48 Normal [facility] PAT by IFAon 09-25-2022 Antinuclear Antibodies, IFA Negative Normal [facility] Comment on above: Result Comment: Nega tive <1:80 Borderline 1:80 Positive >1:80 ICAP nomenclature: AC-0 For more information about Hep-2 cell patterns use ANApatterns.org, the official website for the International Consensus on Antinuclear Antibody (PAT) Patterns (ICAP). Performed By: #### C MP, CMA #### [facility] [address] [place] [address] Dr. Kush Call ANTISTREPTOLYSIN O AB (ASO)o n 09-20-2022 Antistreptolysin O Ab 71.6 IU/mL Normal 0.0-200.0 [facility] Comment on above: Performed By: #### C IRINA BENOIT #### [facility] [address] [place] [address] [address] Kush Call MG MAMM DIAGNOSTIC 3D JOAQUIM CA Don 09-20-2022 MG MAMM DIAGNOSTIC 3D JOAQUIM CAD Patient: RICA STOUT Exam Date: 09/20/2022 : 1995 Gender:F Ordering : DANUTA [facility] Admission #: [id number] Family : Order #: [id number] CLICK HERE TO VIEW EXAM RADIOLOGY REPORT [...] unknown cancer at age 70. LOCATION: [facility] BREAST COMPOSITION: Heterogeneously dense,which may obscure [...] MD on 09/20/2022 at 14:51 Normal [facility] RHEUMATOID FACTORon 09-21-19 23 RA Latex Turbid. <10.0 Normal <14.0 [facility] Comment on above: Performed By: #### C IRINA BENOIT #### [facility] [address] [place], [place] [address] Dr. Kush Call CRPon 09-19-2022 CRP [Mass/Vol] mg/L Normal <=1.0 [facility] Comment on above: Performed By: #### C RP, CMP, URIC, MG #### [facility] [address] [place] [address] Dr. Kush Call FOLATEon 09-19-2022 FOLATE 8.40 ng/mL Critically low 8.60-58.90 [facility] Comment on above: Performed By: #### C MP, CMADM #### [facility] [address] [place] [address] Dr. Kush Call MAGNESIUMon 09-19-2022 Magnesium [Mass/Vol] 1.9 mg/dL Normal 1.8-2.4 [facility] Comment on above: Performed By: #### C RP, CMP, URIC, MG #### [facility] [address] [place] [address] Dr. Kush Call PROF 14(COMP METB)on 023 Albumin [Mass/Vol] 3.8 g/dL Normal 3.4-5.0 [facility] Comment on above: Performed By: #### C RP, CMP, URIC, MG #### [facility] [address] [place] [address] Dr. Kush Call Albumin/Globulin [Mass ratio] 0.8 {ratio} Normal [facility] Comment on above: Performed By: #### C RP, CMP, URIC, MG #### [facility] [address] [place] [address] Dr. Kush Call ALP [Catalytic activity/Vol] 120 U/L Critically high 46-116 [facility] Comment on above: Performed By: #### C RP, CMP, URIC, MG #### [facility] [address] [place] [address] Dr. Kush Call ALT [Catalytic activity/Vol] 67 U/L Critically high 14-59 [facility] Comment on above: Performed By: #### C RP, CMP, URIC, MG #### [facility] [address] [place] [address] Dr. Kush Call Anion gap [Moles/Vol] 18.9 mmol/L Normal [facility] Comment on above: Performed By: #### C RP, CMP, URIC, MG #### [facility] [address] [place] [address] [address] Kush Call AST [Catalytic activity/Vol] 68 U/L Critically high 15-37 [facility] Comment on above: Performed By: #### C RP, CMP, URIC, MG #### [facility] [address] [place] [address] [address] Kush Call Bilirubin [Mass/Vol] 0.9 mg/dL Normal 0.2-1.0 [facility] Comment on above: Performed By: #### C RP, CMP, URIC, MG #### [facility] [address] [place] [address] Dr. Kush Call Calcium [Mass/Vol] 9.8 mg/dL Normal 8.5-10.1 [facility] Comment on above: Performed By: #### C RP, CMP, URIC, MG #### [facility] [address] [place] [address] Dr. Kush Call Chloride [Moles/Vol] 102 mmol/L Normal 98-107 [facility] Comment on above: Performed By: #### C RP, CMP, URIC, MG #### [facility] [address] [place] [address] Dr. Kush Call CO2 [Moles/Vol] 20.6 mmol/L Critically low 21.0-32.0 [facility] Comment on above: Performed By: #### C RP, CMP, URIC, MG #### [facility] [address] [place] [address] Dr. Kush Call Creatinine [Mass/Vol] 0.49 mg/dL Critically low 0.55-1.02 [facility] Comment on above: Performed By: #### C RP, CMP, URIC, MG #### [facility] [address] [place] [address] Dr. Kush Call EGFR-AF CAMBODIAN >60 Normal >=60 [facility] Comment on above: Performed By: #### C RP, CMP, URIC, MG #### [facility] [address] [place] [address] Dr. Kush Call EGFR-NON AF CAMBODIAN >60 Normal >=60 [facility] Comment on above: Performed By: #### C RP, CMP, URIC, MG #### [facility] [address] [place] [address] Dr. Kush Call Globulin (S) [Mass/Vol] 4.6 g/dL Normal [facility] Comment on above: Performed By: #### C RP, CMP, URIC, MG #### [facility] [address] [place] [address] Dr. Kush Call Glucose [Mass/Vol] 174 mg/dL Critically high 74-106 [facility] Comment on above: Performed By: #### C RP, CMP, URIC, MG #### [facility] [address] [place] [address] Dr. Kush Call Potassium [Moles/Vol] 3.5 mmol/L Normal 3.5-5.1 [facility] Comment on above: Performed By: #### C RP, CMP, URIC, MG #### [facility] [address] [place] [address] Dr. Kush Call Protein [Mass/Vol] 8.4 g/dL Critically high 6.4-8.2 [facility] Comment on above: Performed By: #### C RP, CMP, URIC, MG #### [facility] [address] [place] [address] Dr. Kush Call Sodium [Moles/Vol] 138 mmol/L Normal 136-145 [facility] Comment on above: Performed By: #### C RP, CMP, URIC, MG #### [facility] [address] [place] [address] Dr. Kush Call Urea nitrogen [Mass/Vol] 5.0 mg/dL Critically low 7.0-18.0 [facility] Comment on above: Performed By: #### C RP, CMP, URIC, MG #### [facility] [address] [place] [address] Dr. Kush Call Urea nitrogen/Creatinine [Mass ratio] 10.2 mg/mg Normal [facility] Comment on above: Performed By: #### C RP, CMP, URIC, MG #### [facility] [address] [place] [address] Dr. Kush Call URIC ACID SERUMon 09-19-2022 Urate [Mass/Vol] 10.1 mg/dL Critically high 2.6-6.0 [facility] Comment on above: Performed By: #### C RP, CMP, URIC, MG #### [facility] [address] [place] [address] Dr. Kush Call US BREAST RIGHT LIMITEDon US BREAST RIGHT LIMITED Patient: RICA STOUT Exam Date: 09/19/2022 : 1995 Gender:F Ordering : DANUTA ARAUJO [facility] Admission #: [id number] Family : DR MASSIMO BRIGHT . Order #: [id number] CLICK HERE TO VIEW EXAM RADIOLOGY REPORT [...] Langford MD on 09/19/2022 at 08:59 Normal [facility] CARDIAC LOWELL ADMITon 023 CK [Catalytic activity/Vol] 68 U/L Normal 26-192 [facility] Comment on above: Performed By: #### C KAYCEE CMADM #### [facility] [address] [place] [address] Dr. Kush Call CK.MB [Mass/Vol] 141.43 ng/mL Critically high <=3.60 [facility] Comment on above: Performed By: #### C IRINA BENOIT #### [facility] [address] [place] [address] Dr. Kush Call HSTROP <4.0 Normal 4.0-51.3 [facility] Comment on above: Result Comment: CUT- OFF POINTS HAVE BEEN ESTABLISHED BASED ON THE FOURTH UNIVERSAL DEFINITIONS OF MYOCARDIAL INFARCTION. THE UPPER REFERENCE LIMIT (URL) OF TROPONIN, DEFINED THE 99TH PERCENTILE OF cTnI DISTRIBUTION IN A REFERENCE POPULATION, HAS BEEN CONFIRMED THE DECISION THRESHOLD FOR MN DIAGNOSIS. Performed By: #### C KAYCEE, XAVIERDM #### [facility] [address] [place] [address] Dr. Kush Call JOANNA 57 ng/mL Normal 9-82 [facility] Comment on above: Performed By: #### C KAYCEE, XAVIERDM #### [facility] [address] [place] [address] Dr. Kush Call CBC AUTO DIFFon 09-13-2022 BASO # 0.1 103/ul Normal 0.0-0.1 [facility] Comment on above: Performed By: #### C XAVIER BENOITDM #### [facility] [address] [place] [address] Dr. Kush Call Basophils/100 WBC (Bld) 1.4 % Normal 0.2-2.0 [facility] Comment on above: Performed By: #### C XAVIER BENOITDM #### [facility] [address] [place] [address] Dr. Kush Call EO # 0.1 103/ul Normal 0.0-0.7 [facility] Comment on above: Performed By: #### C XAVIER BENOITDM #### [facility] [address] [place] [address] Dr. Kush Call Eosinophils/100 WBC (Bld) 1.3 % Normal 0.9-7.0 [facility] Comment on above: Performed By: #### C XAVIER BENOITDM #### [facility] [address] [place] [address] Dr. Kush Call Erythrocyte distribution width (RBC) [Ratio] 12.7 % Normal 11.0-15.0 [facility] Comment on above: Performed By: #### C XAVIER BENOITDM #### [facility] [address] [place] [address] Dr. Kush Call Hematocrit (Bld) [Volume fraction] 44.8 % Normal 36.0-48.0 [facility] Comment on above: Performed By: #### C KAYCEE, CMADM #### [facility] [address] [place] [address] Dr. Kush Call Hemoglobin (Bld) [Mass/Vol] 15.3 g/dL Normal 12.0-16.0 [facility] Comment on above: Performed By: #### C KAYCEE, CMADM #### [facility] [address] [place] [address] Dr. Kush Call IG # 0.22 10e3/ul Critically high 0.00-0.03 [facility] Comment on above: Performed By: #### C KAYCEE, CMADM #### [facility] [address] [place] [address] Dr. Kush Call IG % 2.2 % Critically high 0.0-0.5 [facility] Comment on above: Performed By: #### C KAYCEE, CMADM #### [facility] [address] [place] [address] Dr. Kush Call LYMPH # 2.7 103/ul Normal 1.2-3.8 [facility] Comment on above: Performed By: #### C KAYCEE, CMADM #### [facility] [address] [place] [address] Dr. Kush Call Lymphocytes/100 WBC (Bld) 26.6 % Normal 20.5-60.0 [facility] Comment on above: Performed By: #### C KAYCEE, CMADM #### [facility] [address] [place] [address] Dr. Kush Call MANUAL DIFF REQ NO Normal [facility] Comment on above: Performed By: #### C KAYCEE, CMADM #### [facility] [address] [address] [address] Kush Call MCH (RBC) [Entitic mass] 36.4 pg Critically high 26.7-34.0 [facility] Comment on above: Performed By: #### C KAYCEE, CMADM #### [facility] [address] [address] [address] Kush Call MCHC (RBC) [Mass/Vol] 34.2 g/dL Normal 29.9-35.2 [facility] Comment on above: Performed By: #### C MP, CMADM #### [facility] [address] [address] [address] Kush Call MCV (RBC) [Entitic vol] 106.7 fL Critically high 81.0-99 .0 [facility] Comment on above: Performed By: #### C MP, CMADM #### [facility] [address] [place] [address] Dr. Kush Call MONO # 0.6 103/ul Normal 0.3-0.8 [facility] Comment on above: Performed By: #### C MP, CMADM #### [facility] [address] [place] [address] Dr. Kush Call Monocytes/100 WBC (Bld) 5.6 % Normal 1.7-12.0 [facility] Comment on above: Performed By: #### C MP, CMADM #### [facility] [address] [place] [address] Dr. Kush Call NEUT # 6.4 103/ul Normal 1.4-6.5 [facility] Comment on above: Performed By: #### C MP, CMADM #### [facility] [address] [place] [address] Dr. Kush Call Neutrophils/100 WBC (Bld) 62.9 % Normal 43.0-75.0 [facility] Comment on above: Performed By: #### C MP, CMADM #### [facility] [address] [place] [address] Dr. Kush Call Platelet mean volume (Bld) [Entitic vol] 9.4 fL Critically low 9.5-13.5 [facility] Comment on above: Performed By: #### C MP, CMADM #### [facility] [address] [place] [address] Dr. Kuhs Call PLT 454 103/ul Critically high 150-450 [facility] Comment on above: Performed By: #### C XAVIER BENOITDM #### [facility] [address] [place], [place] [address] Dr. Kush Call RBC 4.20 106/ul Normal 4.20-5.40 [facility] Comment on above: Performed By: #### C XAVIER BENOITDM #### [facility] [address] [place], [place] [address] Dr. Kush Call WBC 10.2 103/ul Normal 4.0-11.0 [facility] Comment on above: Performed By: #### C XAVIER BENOITDM #### [facility] [address] [place], [place] [address] HEAD WO CONon [...] by: MILLIE NORMAN Date: 2022-09-13 12:29 Normal [facility] CTA CHEST WO W CONon 2 023 CTA CHEST WO W CON EXAMINATION: [...] by: DAVID TRUONG Date: 2022-09-13 14:46 Normal [facility] D-DIMERon 09-13-2022 D-DIMER 2.94 mg/L FEU Critically high <=0.59 [facility] Comment on above: Performed By: #### C KAYCEE, CMADM #### [facility] [address] [place] [address] Dr. Kush Call D-DIMER COMMENTS SEE BELOW Normal [facility] Comment on above: Result Comment: Incr [...] Performed By: #### C KAYCEE, CMADM #### [facility] [address] [address] [address] Kush Call DRUG SCREEN RAPID (URINE)on 09-13-2022 AMP Negative Normal NEGATIVE [facility] Comment on above: Performed By: #### C RP, CMP, URIC, MG #### [facility] [address] [address] [address] Kush Call [facility] Negative Normal NEGATIVE [facility] Comment on above: Performed By: #### C RP, CMP, URIC, MG #### [facility] [address] [place] [address] Dr. Kush Call [facility] Negative Normal NEGATIVE [facility] Comment on above: Performed By: #### C RP, CMP, URIC, MG #### [facility] [address] [address] [address] Kush Call BZO Negative Normal NEGATIVE [facility] Comment on above: Performed By: #### C RP, CMP, URIC, MG #### [facility] [address] [address] [address] Kush Call BUTCH Negative Normal NEGATIVE [facility] Comment on above: Performed By: #### C RP, CMP, URIC, MG #### [facility] [address] [address] [address] Kush Call CUT-OFFS SEE BELOW Normal [facility] Comment on above: Result Comment: AMP (Amphetamine): [...] #### C RP, CMP, URIC, MG #### [facility] [address] [place] [address] Dr. Kush Call DRUG CUT HEADER DRUG CLASS TEST SYST EM CUT-OFF CONCENTRATIONS ARE FOLLOWS: Normal [facility] Comment on above: Performed By: #### C RP, CMP, URIC, MG #### [facility] [address] [address] [address] Kush Call mAMP Negative Normal NEGATIVE [facility] Comment on above: Performed By: #### C RP, CMP, URIC, MG #### [facility] [address] [place] [address] Dr. Kush Call MTD Negative Normal NEGATIVE [facility] Comment on above: Performed By: #### C RP, CMP, URIC, MG #### [facility] [address] [address] [address] Kush Call OPI Negative Normal NEGATIVE [facility] Comment on above: Performed By: #### C RP, CMP, URIC, MG #### [facility] [address] [address] [address] Kush Call OXY Negative Normal NEGATIVE [facility] Comment on above: Performed By: #### C RP, CMP, URIC, MG #### [facility] [address] [address] [address] Kush Call PCP Negative Normal NEGATIVE [facility] Comment on above: Performed By: #### C RP, CMP, URIC, MG #### [facility] [address] [place] [address] Dr. Kush Call PPX Negative Normal NEGATIVE [facility] Comment on above: Performed By: #### C RP, CMP, URIC, MG #### [facility] [address] [place] [address] Dr. Kush Call TCA Negative Normal NEGATIVE [facility] Comment on above: Performed By: #### C RP, CMP, URIC, MG #### [facility] [address] [place] [address] Dr. Kush Call THC Negative Normal NEGATIVE [facility] Comment on above: Performed By: #### C RP, CMP, URIC, MG #### [facility] [address] [place] [address] Dr. Kush Call ER URINE PROFILEon 3 Bilirubin Ql (U) Negative Normal NEGATIVE [facility] Comment on above: Performed By: #### C RP, CMP, URIC, MG #### [facility] [address] [place] [address] Dr. Kush Call Clarity (U) CLEAR Normal CLEAR [facility] Comment on above: Performed By: #### C RP, CMP, URIC, MG #### [facility] [address] [place] [address] Dr. Kush Call Color (U) LT. YELLOW Normal YELLOW [facility] Comment on above: Performed By: #### C RP, CMP, URIC, MG #### [facility] [address] [place] [address] Dr. Kush MONTERO A micrscopic examina tion will be performed if indicated. Normal [facility] Comment on above: Performed By: #### C RP, CMP, URIC, MG #### [facility] [address] [place] [address] Dr. Kush Call Glucose Ql (U) Negative Normal NEGATIVE [facility] Comment on above: Performed By: #### C RP, CMP, URIC, MG #### [facility] [address] [place] [address] Dr. Kush Call Hemoglobin Ql (U) Negative Normal NEGATIVE [facility] Comment on above: Performed By: #### C RP, CMP, URIC, MG #### [facility] [address] [place] [address] Dr. Kush Call Ketones Ql (U) Negative Normal NEGATIVE [facility] Comment on above: Performed By: #### C RP, CMP, URIC, MG #### [facility] [address] [place] [address] Dr. Kush Call LEUKOCYTES Negative Normal NEGATIVE [facility] Comment on above: Performed By: #### C RP, CMP, URIC, MG #### [facility] [address] [place] [address] Dr. Kush Call Nitrite Ql (U) Negative Normal NEGATIVE [facility] Comment on above: Performed By: #### C RP, CMP, URIC, MG #### [facility] [address] [place] [address] Dr. Kush Call pH (U) 5.5 [pH] Normal 5-9 [facility] Comment on above: Performed By: #### C RP, CMP, URIC, MG #### [facility] [address] [place] [address] Dr. Kush Call SPEC GRAVITY <=1.005 Abnormal 1.005-<=1.02 5 [facility] Comment on above: Performed By: #### C RP, CMP, URIC, MG #### [facility] [address] [place] [address] Dr. Kush Call UA PROTEIN Negative Normal NEGATIVE/ TRACE [facility] Comment on above: Performed By: #### C RP, CMP, URIC, MG #### [facility] [address] [place] [address] Dr. Kush Call UR MICRO IND NOT INDICATED Normal [facility] Comment on above: Performed By: #### C RP, CMP, URIC, MG #### [facility] [address] [place] [address] Dr. Kush Call Urobilinogen Qn (U) 0.2 {Kirit'U}/dL Normal 0.2 - 1. 0 [facility] Comment on above: Performed By: #### C RP, CMP, URIC, MG #### [facility] [address] [place] [address] Dr. Kush Call LACTATE/LACTIC ACIDon 2022 Lactate [Moles/Vol] 3.0 mmol/L Critically high 0.4-1.9 [facility] Comment on above: Performed By: #### C RP, CMP, URIC, MG #### [facility] [address] [place] [address] Dr. Kush Call Lactate [Moles/Vol] 3.5 mmol/L Critically high 0.4-1.9 [facility] Comment on above: Performed By: #### C RP, CMP, URIC, MG #### [facility] [address] [place] [address] Dr. Kush Call PROF 14(COMP METB)on 023 Albumin [Mass/Vol] 3.3 g/dL Critically low 3.4-5.0 [facility] Comment on above: Performed By: #### C XAVIER BENOITDM #### [facility] [address] [place] [address] Dr. Kush Call Albumin/Globulin [Mass ratio] 0.8 {ratio} Normal [facility] Comment on above: Performed By: #### C KAYCEE, XAVIERDM #### [facility] [address] [place] [address] Dr. Kush Call ALP [Catalytic activity/Vol] 111 U/L Normal 46-116 [facility] Comment on above: Performed By: #### C MP, CMADM #### [facility] [address] [address] [address] Kush Call ALT [Catalytic activity/Vol] 63 U/L Critically high 14-59 [facility] Comment on above: Performed By: #### C MP, CMADM #### [facility] [address] [address] [address] Kush Call Anion gap [Moles/Vol] 20.5 mmol/L Normal [facility] Comment on above: Performed By: #### C MP, CMADM #### [facility] [address] [address] [address] Kush Call AST [Catalytic activity/Vol] 64 U/L Critically high 15-37 [facility] Comment on above: Performed By: #### C KAYCEE, CMADM #### [facility] [address] [address] [address] Kush Call Bilirubin [Mass/Vol] 0.5 mg/dL Normal 0.2-1.0 [facility] Comment on above: Performed By: #### C KAYCEE, CMADM #### [facility] [address] [address] [address] Kush Call Calcium [Mass/Vol] 9.4 mg/dL Normal 8.5-10.1 [facility] Comment on above: Performed By: #### C KAYCEE, CMADM #### [facility] [address] [address] [address] Kush Call Chloride [Moles/Vol] 101 mmol/L Normal 98-107 [facility] Comment on above: Performed By: #### C MP, CMADM #### [facility] [address] [address] [address] Kush Call CO2 [Moles/Vol] 19.8 mmol/L Critically low 21.0-32.0 [facility] Comment on above: Performed By: #### C MP, CMADM #### [facility] [address] [address] [address] Kush Call Creatinine [Mass/Vol] 0.50 mg/dL Critically low 0.55-1.02 [facility] Comment on above: Performed By: #### C MP, CMADM #### [facility] [address] [address] [address] Kush Call EGFR-AF CAMBODIAN >60 Normal >=60 [facility] Comment on above: Performed By: #### C MP, CMADM #### [facility] [address] [address] [address] Kush Call EGFR-NON AF CAMBODIAN >60 Normal >=60 [facility] Comment on above: Performed By: #### C MP, CMADM #### [facility] [address] [address] [address] Kush Call Globulin (S) [Mass/Vol] 4.1 g/dL Normal [facility] Comment on above: Performed By: #### C MP, CMADM #### [facility] [address] [address] [address] Kush Call Glucose [Mass/Vol] 112 mg/dL Critically high 74-106 [facility] Comment on above: Performed By: #### C MP, CMADM #### [facility] [address] [address] [address] Kush Call Potassium [Moles/Vol] 3.3 mmol/L Critically low 3.5-5.1 [facility] Comment on above: Performed By: #### C MP, CMADM #### [facility] [address] [address] [address] Kush Call Protein [Mass/Vol] 7.4 g/dL Normal 6.4-8.2 [facility] Comment on above: Performed By: #### C MP, CMADM #### [facility] [address] [address] [address] Kush Call Sodium [Moles/Vol] 138 mmol/L Normal 136-145 [facility] Comment on above: Performed By: #### C MP, CMADM #### [facility] [address] [address] [address] Kush Call Urea nitrogen [Mass/Vol] 2.0 mg/dL Critically low 7.0-18.0 [facility] Comment on above: Performed By: #### C MP, CMADM #### [facility] [address] [place] [address] Dr. Kush Call Urea nitrogen/Creatinine [Mass ratio] 4.0 mg/mg Normal [facility] Comment on above: Performed By: #### C MP, CMADM #### [facility] [address] [place] [address] Dr. Kush Call SED RATE WESTERGRENon 2022 SED RATE 74 mm/hr Critically high <=20 [facility] Comment on above: Performed By: #### T SH #### [facility] [address] [place] [address] Dr. Kush Call TSHon 09-13-2022 TSH 2.552 uIU/mL Normal 0.358-3.740 [facility] Comment on above: Performed By: #### T SH #### [facility] [address] [place] [address] Dr. Kush Call VIT B12 AND FOLATEon 023 Cobalamin (Vitamin B12) [Mass/Vol] 700.0 pg/mL Normal 193.0-986.0 [facility] Comment on above: Performed By: #### C RP, CMP, URIC, MG #### [facility] [address] [place] [address] Dr. Kush Call FOLATE 1.60 ng/mL Critically low 8.60-58.90 [facility] Comment on above: Performed By: #### C RP, CMP, URIC, MG #### [facility] [address] [place] [address] Dr. Kush Call AMYLASEon 08-30-2022 Amylase [Catalytic activity/Vol] 28 U/L Normal 25-115 [facility] Comment on above: Performed By: #### C RP, CMP, URIC, MG #### [facility] [address] [place] [address] Dr. Kush Call CBC AUTO DIFFon 08-30-2022 BASO # 0.1 103/ul Normal 0.0-0.1 [facility] Comment on above: Performed By: #### T SH #### [facility] [address] [address] [address] Kush Call Basophils/100 WBC (Bld) 0.8 % Normal 0.2-2.0 [facility] Comment on above: Performed By: #### T SH #### [facility] [address] [address] [address] Kush Call EO # 0.0 103/ul Normal 0.0-0.7 [facility] Comment on above: Performed By: #### T SH #### [facility] [address] [place] [address] Dr. Kush Call Eosinophils/100 WBC (Bld) 0.5 % Critically low 0.9-7.0 [facility] Comment on above: Performed By: #### T SH #### [facility] [address] [place] [address] Dr. Kush Call Erythrocyte distribution width (RBC) [Ratio] 12.4 % Normal 11.0-15.0 [facility] Comment on above: Performed By: #### T SH #### [facility] [address] [place] [address] Dr. Kush Call Hematocrit (Bld) [Volume fraction] 39.8 % Normal 36.0-48.0 [facility] Comment on above: Performed By: #### T SH #### [facility] [address] [place] [address] Dr. Kush Call Hemoglobin (Bld) [Mass/Vol] 14.3 g/dL Normal 12.0-16.0 [facility] Comment on above: Performed By: #### T SH #### [facility] [address] [place] [address] Dr. Kush Call IG # 0.03 10e3/ul Normal 0.00-0.03 [facility] Comment on above: Performed By: #### T SH #### [facility] [address] [place] [address] Dr. Kush Call IG % 0.5 % Normal 0.0-0.5 [facility] Comment on above: Performed By: #### T SH #### [facility] [address] [place] [address] Dr. Kush Call LYMPH # 1.2 103/ul Normal 1.2-3.8 [facility] Comment on above: Performed By: #### T SH #### [facility] [address] [place] [address] Dr. Kush Call Lymphocytes/100 WBC (Bld) 18.3 % Critically low 20.5-60.0 [facility] Comment on above: Performed By: #### T SH #### [facility] [address] [place] [address] Dr. Kush Call MANUAL DIFF REQ NO Normal [facility] Comment on above: Performed By: #### T SH #### [facility] [address] [place] [address] Dr. Kush Call MCH (RBC) [Entitic mass] 37.2 pg Critically high 26.7-34.0 [facility] Comment on above: Performed By: #### T SH #### [facility] [address] [place] [address] Dr. Kush Call MCHC (RBC) [Mass/Vol] 35.9 g/dL Critically high 29.9-35.2 [facility] Comment on above: Performed By: #### T SH #### [facility] [address] [place] [address] Dr. Kush Call MCV (RBC) [Entitic vol] 103.6 fL Critically high 81.0-99 .0 [facility] Comment on above: Performed By: #### T SH #### [facility] [address] [place] [address] Dr. Kush Call MONO # 0.4 103/ul Normal 0.3-0.8 [facility] Comment on above: Performed By: #### T SH #### [facility] [address] [place] [address] Dr. Kush Call Monocytes/100 WBC (Bld) 6.1 % Normal 1.7-12.0 [facility] Comment on above: Performed By: #### T SH #### [facility] [address] [place] [address] Dr. Kush Call NEUT # 4.7 103/ul Normal 1.4-6.5 [facility] Comment on above: Performed By: #### T SH #### [facility] [address] [place] [address] Dr. Kush Call Neutrophils/100 WBC (Bld) 73.8 % Normal 43.0-75.0 [facility] Comment on above: Performed By: #### T SH #### [facility] [address] [place] [address] Dr. Kush Call Platelet mean volume (Bld) [Entitic vol] 9.2 fL Critically low 9.5-13.5 [facility] Comment on above: Performed By: #### T SH #### [facility] [address] [place] [address] Dr. Kush Call PLT 288 103/ul Normal 150-450 [facility] Comment on above: Performed By: #### T SH #### [facility] [address] [place] [address] Dr. Kush Call RBC 3.84 106/ul Critically low 4.20-5.40 [facility] Comment on above: Performed By: #### T SH #### [facility] [address] [place] [address] Dr. Kush Call WBC 6.4 103/ul Normal 4.0-11.0 [facility] Comment on above: Performed By: #### T SH #### [facility] [address] [place] [address] Dr. Kush Call ER URINE PROFILEon 3 Bilirubin Ql (U) Negative Normal NEGATIVE [facility] Comment on above: Performed By: #### U MICRO, ERUR #### [facility] [address] [place] [address] Dr. Kush Call Clarity (U) CLEAR Normal CLEAR [facility] Comment on above: Performed By: #### U MICRO, ERUR #### [facility] [address] [place], [place] [id number] Dr. Kush Call Color (U) LT. YELLOW Normal YELLOW [facility] Comment on above: Performed By: #### U MICRO, ERUR #### [facility] [address] [place] [address] Dr. Kush MONTERO A micrscopic examina tion will be performed if indicated. Normal [facility] Comment on above: Performed By: #### U MICRO, ERUR #### [facility] [address] [address] [address] Kush Call Glucose Ql (U) Negative Normal NEGATIVE [facility] Comment on above: Performed By: #### U MICRO, ERUR #### [facility] [address] [place] [address] Dr. Kush Call Hemoglobin Ql (U) Negative Normal NEGATIVE [facility] Comment on above: Performed By: #### U MICRO, ERUR #### [facility] [address] [place] [address] Dr. Kush Call Ketones Ql (U) Negative Normal NEGATIVE [facility] Comment on above: Performed By: #### U MICRO, ERUR #### [facility] [address] [place] [address] Dr. Kush Call LEUKOCYTES SMALL Abnormal NEGATIVE [facility] Comment on above: Performed By: #### U MICRO, ERUR #### [facility] [address] [place] [address] Dr. Kush Call Nitrite Ql (U) Negative Normal NEGATIVE [facility] Comment on above: Performed By: #### U MICRO, ERUR #### [facility] [address] [place] [address] Dr. Kush Call pH (U) 7.0 [pH] Normal 5-9 [facility] Comment on above: Performed By: #### U MICRO, ERUR #### [facility] [address] [place] [address] Dr. Kush Call SPEC GRAVITY <=1.005 Abnormal 1.005-<=1.02 5 [facility] Comment on above: Performed By: #### U MICRO, ERUR #### [facility] [address] [place] [address] Dr. Kush Call UA PROTEIN Negative Normal NEGATIVE/ TRACE [facility] Comment on above: Performed By: #### U MICRO, ERUR #### [facility] [address] [place] [address] Dr. Kush Call UR MICRO IND INDICATED Normal [facility] Comment on above: Performed By: #### U MICRO, ERUR #### [facility] [address] [place] [address] Dr. Kush Call Urobilinogen Qn (U) 1.0 {Kirit'U}/dL Normal 0.2 - 1. 0 [facility] Comment on above: Performed By: #### U MICRO, ERUR #### [facility] [address] [place] [address] Dr. Kush Call LIPASEon 08-30-2022 Lipase [Catalytic activity/Vol] 40.0 U/L Critically low 73.0-393.0 [facility] Comment on above: Performed By: #### C RP, CMP, URIC, MG #### [facility] [address] [place] [address] Dr. Kush Call PROF 14(COMP METB)on 023 Albumin [Mass/Vol] 3.2 g/dL Critically low 3.4-5.0 [facility] Comment on above: Performed By: #### C RP, CMP, URIC, MG #### [facility] [address] [place] [address] Dr. Kush Call Albumin/Globulin [Mass ratio] 0.9 {ratio} Normal [facility] Comment on above: Performed By: #### C RP, CMP, URIC, MG #### [facility] [address] [place] [address] Dr. Kush Call ALP [Catalytic activity/Vol] 100 U/L Normal 46-116 [facility] Comment on above: Performed By: #### C RP, CMP, URIC, MG #### [facility] [address] [place] [address] Dr. Kush Call ALT [Catalytic activity/Vol] 66 U/L Critically high 14-59 [facility] Comment on above: Performed By: #### C RP, CMP, URIC, MG #### [facility] [address] [place] [address] Dr. Kush Call Anion gap [Moles/Vol] 14.6 mmol/L Normal [facility] Comment on above: Performed By: #### C RP, CMP, URIC, MG #### [facility] [address] [place] [address] Dr. Kush Call AST [Catalytic activity/Vol] 120 U/L Critically high 15-37 [facility] Comment on above: Performed By: #### C RP, CMP, URIC, MG #### [facility] [address] [place] [address] Dr. Kush Call Bilirubin [Mass/Vol] 1.1 mg/dL Critically high 0.2-1.0 [facility] Comment on above: Performed By: #### C RP, CMP, URIC, MG #### [facility] [address] [place] [address] Dr. Kush Call Calcium [Mass/Vol] 9.0 mg/dL Normal 8.5-10.1 [facility] Comment on above: Performed By: #### C RP, CMP, URIC, MG #### [facility] [address] [place] [address] Dr. Kush Call Chloride [Moles/Vol] 102 mmol/L Normal 98-107 [facility] Comment on above: Performed By: #### C RP, CMP, URIC, MG #### [facility] [address] [place] [address] Dr. Kush Call CO2 [Moles/Vol] 25.4 mmol/L Normal 21.0-32.0 [facility] Comment on above: Performed By: #### C RP, CMP, URIC, MG #### [facility] [address] [place] [address] Dr. Kush Call Creatinine [Mass/Vol] 0.62 mg/dL Normal 0.55-1.02 [facility] Comment on above: Performed By: #### C RP, CMP, URIC, MG #### [facility] [address] [address] [address] Kush Call EGFR-AF CAMBODIAN >60 Normal >=60 [facility] Comment on above: Performed By: #### C RP, CMP, URIC, MG #### [facility] [address] [address] [address] Kush Call EGFR-NON AF CAMBODIAN >60 Normal >=60 [facility] Comment on above: Performed By: #### C RP, CMP, URIC, MG #### [facility] [address] [address] [address] Kush Call Globulin (S) [Mass/Vol] 3.5 g/dL Normal [facility] Comment on above: Performed By: #### C RP, CMP, URIC, MG #### [facility] [address] [address] [address] Kush Call Glucose [Mass/Vol] 114 mg/dL Critically high 74-106 [facility] Comment on above: Performed By: #### C RP, CMP, URIC, MG #### [facility] [address] [address] [address] Kush Call Potassium [Moles/Vol] 3.0 mmol/L Critically low 3.5-5.1 [facility] Comment on above: Performed By: #### C RP, CMP, URIC, MG #### [facility] [address] [address] [address] Kush Call Protein [Mass/Vol] 6.7 g/dL Normal 6.4-8.2 [facility] Comment on above: Performed By: #### C RP, CMP, URIC, MG #### [facility] [address] [address] [address] Kush Call Sodium [Moles/Vol] 139 mmol/L Normal 136-145 [facility] Comment on above: Performed By: #### C RP, CMP, URIC, MG #### [facility] [address] [address] [address] Kush Call Urea nitrogen [Mass/Vol] 3.0 mg/dL Critically low 7.0-18.0 [facility] Comment on above: Performed By: #### C RP, CMP, URIC, MG #### [facility] [address] [address] [address] Kush Call Urea nitrogen/Creatinine [Mass ratio] 4.8 mg/mg Normal [facility] Comment on above: Performed By: #### C RP, CMP, URIC, MG #### [facility] [address] [place] [address] Dr. Kush Call URINE MICROSCOPIC ONLYon BACTERIA TRACE Abnormal NONE SEEN [facility] Comment on above: Performed By: #### U MICRO, ERUR #### [facility] [address] [place] [address] Dr. Kush Call Bacteria identified Cx Nom (U) NOT INDICATED Normal [facility] Comment on above: Performed By: #### U MICRO, ERUR #### [facility] [address] [place] [address] Dr. Kush Call CAST NONE SEEN Normal NONE SEEN [facility] Comment on above: Performed By: #### U MICRO, ERUR #### [facility] [address] [place] [address] Dr. Kush Call Crystals LM Nom (Urine sed) NONE SEEN Normal NONE SEEN [facility] Comment on above: Performed By: #### U MICRO, ERUR #### [facility] [address] [place] [address] Dr. Kush Call Epithelial cells LM Ql (Urine sed) RARE Normal NONE SEEN /RARE [facility] Comment on above: Performed By: #### U MICRO, ERUR #### [facility] [address] [place] [address] Dr. Kush Call MUCOUS NONE SEEN Normal NONE SEEN [facility] Comment on above: Performed By: #### U MICRO, ERUR #### [facility] [address] [place] [address] Dr. Kush Call RBC 0-2 Normal 0-2 [facility] Comment on above: Performed By: #### U MICRO, ERUR #### [facility] [address] [place] [address] Dr. Kush Call WBC 0-2 Abnormal NONE SEEN [facility] Comment on above: Performed By: #### U MICRO, ERUR #### [facility] [address] [place] [address] Dr. Kush Call CHLAMYDIA/GONOCOCCUS OKSANA ( AB/URINE/PAPon 08-25-2022 Chlamydia trachomatis, OKSA[place] Negative Normal Negative [facility] Comment on above: Performed By: #### C T/NGNA #### [facility] [address] [place] [address] Dr. Kush Call Neisseria gonorrhoeae, OKSANA Negative Normal Negative [facility] Comment on above: Performed By: #### C T/NGNA #### [facility] [address] [place] [address] Dr. Kush Call CULTURE URINEon 08-25-2022 CULTURE [...] Trimethoprim/Sulfamethox azole <=20 S F Normal [facility] Comment on above: Performed By: #### C XAVIER BENOITDM #### [facility] [address] [place] [address] Dr. Kush Call VAGINITIS/VAGINOSIS DNA PROB Wander 08-24-2022 Tiffany species Positive Abnormal Negative [facility] Comment on above: Performed By: #### C IRINA BENOIT #### [facility] [address] [place] [address] Dr. Kush Call Gardnerella vaginalis Positive Abnormal Negative [facility] Comment on above: Performed By: #### C XAVIER BENOITDM #### [facility] [address] [place], [place] [address] Dr. Kush Call Trichomonas vaginalis Negative Normal Negative [facility] Comment on above: Performed By: #### C , [facility] #### [facility] [address] [place], [place] [address] Dr. Kush Call ECHOCARDIO M/2D COMPLETEon 0 11-06-2021 ECHOCARDIO M/2D COMPLETE Patient: RICA STOUT Exam Date: 11/06/2021 : 1995 Gender:F Ordering : KLARISSA VasylAngel CHAMBERS Admission #: [id number] Family : DANUTA ARAUJO [facility] Order #: [id number] CLICK HERE TO VIEW EXAM ECHOCARDIOGRAM REPORT [...] Wilkinson M.D. on 11/06/2021 at 15:53 Normal [facility] Hepatitis Acute [facility] 11-11 Hep A Ab,IgM Non-Reactive Normal [facility] Comment on above: Performed By: #### L IVP #### [address] [place] [address] [employer]: Karyna Silva MD #### PHEP #### [address] [id number] [employer]: Leonardo Sánchez MD Hep B Core Ab,IgM Non-Reactive Normal [facility] Comment on above: Performed By: #### L IVP #### [facility] [address] [place] [address] [employer]: Karyna Silva MD #### PHEP #### [address] [address] [employer]er: Leonardo Sánchez MD Hep B Surf Ag Non-Reactive Normal NR [facility] Comment on above: Performed By: #### L IVP #### [address] [place] [address] [employer]er: Karyna Silva MD #### PHEP #### [facility] [address] [place], [place] [id number] [employer]er: Leonardo Sánchez MD Hep C Ab Non-Reactive Normal NR [facility] Comment on above: Result [...] PCR. Performed By: #### L IVP #### [address] [place] [address] [employer]er: Karyna Silva MD #### PHEP #### [address] [address] [employer]er: Leonardo Sánchez MD HCG, Quanton 11-10-2020 HCG, Quant <1 Normal <5 [facility] Comment on above: Result [...] liver. Performed By: #### B HCG #### [address] [place] [address] [employer]er: Karyna Silva MD HCG, Quantitative, Ordered By: Massimo Bright on 11-10-2020 hCG Quant <1 <5 IU/L [facility] Work Phone: Comment on above: Non-preg premeno <=5 [...] [Mass/Vol] 4.6 g/dL 3.5 - 5.2 g/dL [employer] Phone: Albumin/Globulin [Mass ratio] 1.5 {ratio} [facility] Phone: ALP (Bld) [Catalytic activity/Vol] 95 U/L 35 - 104 U/L [facility] Phone: ALT [Catalytic activity/Vol] 54 U/L High 5 - 33 U/L [facility] Phone: AST [Catalytic activity/Vol] 62 U/L High <32 [facility] Phone: Bilirubin [Mass/Vol] 0.93 mg/dL 0.3 - 1 .2 mg/dL [facility] Phone: Bilirubin, Indirect 0.72 mg/dL 0.00 - 1 .00 mg/dL [employer] Phone: Bilirubin.indirect [Mass/Vol] 0.21 mg/dL <0.31 [facility] Phone: Free PSA/Total PSA [Mass fraction] 7.6 g/dL 6.4 - 8.3 g/dL [facility] Phone: Globulin NOT REPORTED 1.5 - 3.8 g/dL [facility] Phone: Interpretation and review of laboratory results Abnormal [facility] Phone: Hepatitis Panel, AcuteOrdere d By: Kalia Bender on 11-10-2020 HAV IgM IA Qn (S) Non-Reactive NONREACTIVE [facility] [employer] Work Phone: Hep B Core Ab, IgM Non-Reactive NONREACTIVE [facility] [employer] Work Phone: Hepatitis B Surface Ag Non-Reactive NONREACTIVE [facility] [employer] Work Phone: Hepatitis C Ab Non-Reactive NONREACTIVE [facility] [employer] Work Phone: Comment on above: The hepatitis C [...] 11-10-2020 Albumin [Mass/Vol] 4.6 g/dL Normal 3.5-5.2 [facility] Comment on above: Performed By: #### L IVP #### [facility] [address] [place] [address] [place] [address] [employer]er: Karyna Silva MD #### PHEP #### [address] [id number] [employer]: Leonardo Sánchez MD Albumin/Glob Ratio 1.5 Normal 1.0-2.5 [facility] Comment on above: Performed By: #### L IVP #### [facility] [address] [place] [address] [address]. [place], [place] [id number] [employer]: Karyna Silva MD #### PHEP #### [address] [place] [address] [employer]: Leonardo Sánchez MD Alkaline Phos 95 U/L Normal 35-104 [facility] Comment on above: Performed By: #### L IVP #### [facility] [address] [place] [address] [place] [address] [employer]er: Karyna Silva MD #### PHEP #### [facility] [address] [place] [address] [employer]: Leonardo Sánchez MD ALT [Catalytic activity/Vol] 54 U/L High 5-33 [facility] Comment on above: Performed By: #### L IVP #### [facility] [address] [place], [place] [id number] [employer]: Karyna Silva MD #### PHEP #### [address] [address] [employer]er: Leonardo Sánchez MD AST [Catalytic activity/Vol] 62 U/L High <32 [facility] Comment on above: Performed By: #### L IVP #### [facility] [address] [place] [address] [address]. [place], [place] [id number] [employer]: Karyna Silva MD #### PHEP #### [address] [address] [employer]er: Leonardo Sánchez MD Bilirubin [Mass/Vol] 0.93 mg/dL Normal 0.3-1.2 [facility] Comment on above: Performed By: #### L IVP #### [facility] [address] [place] [address] Dr. [place], [place] [id number] [employer]: Karyna Silva MD #### PHEP #### [address] [address] [employer]er: Leonardo Sánchez MD Bilirubin, Indirect 0.72 mg/dL Normal 0.00-1.00 [facility] Comment on above: Performed By: #### L IVP #### [facility] [address] [place] [address] [address] [place], [place] [id number] [employer]: Karyna Silva MD #### PHEP #### [address] [address] [employer]er: Leonardo Sánchez MD Bilirubin.indirect [Mass/Vol] 0.21 mg/dL Normal <0.31 [facility] Comment on above: Performed By: #### L IVP #### [facility] [address] [place] [address] [address] [place], [place] [id number] [employer]: Karyna Silva MD #### PHEP #### [address] [address] [employer]er: Leonardo Sánchez MD Protein [Mass/Vol] 7.6 g/dL Normal 6.4-8.3 [facility] Comment on above: Performed By: #### L IVP #### [address] [place], [place] [id number] [employer]: Karyna Silva MD #### PHEP #### [address] [address] [employer]er: Leonardo Sánchez MD Globulin Fraction NOT REPORTED Normal 1.5-3.8 [facility] Comment on above: Performed By: #### L IVP #### [address] [place], [place] [id number] [employer]: Karyna Silva MD #### PHEP #### [address] [address] [employer]er: Leonardo Sánchez MD CBCon 04-06-2020 Erythrocyte distribution width (RBC) [Ratio] 11.8 % Normal 11.8-14.4 [facility] Comment on above: Performed By: #### C P, CBC #### [facility] [address] [place] [address] Dr[address] [place], [place] [id number] [employer]: Amilcar Wing MD #### HIVCMB #### [address] [address] [employer]er: Leonardo Sánchez MD Hematocrit (Bld) [Volume fraction] 43.4 % Normal 36.3-47.1 [facility] Comment on above: Performed By: #### C P, CBC #### [facility] [address] [place] [address] [employer]er: Amilcar Wing MD #### HIVCMB #### [address] [id number] [employer]: Leonardo Sánchez MD Hemoglobin (Bld) [Mass/Vol] 14.4 g/dL Normal 11.9-15.1 [facility] Comment on above: Performed By: #### C P, CBC #### [address] [place] [address] [employer]er: Amilcar Wing MD #### HIVCMB #### [address] [address] [place], [place] [id number] [employer]: Leonardo Sánchez MD MCH (RBC) [Entitic mass] 33.0 pg Normal 25.2-33.5 [facility] Comment on above: Performed By: #### C P, CBC #### [address] [place] [address] [employer]er: Amilcar Wing MD #### HIVCMB #### [address] [id number] [employer]: Leonardo Sánchez MD MCHC (RBC) [Mass/Vol] 33.2 g/dL Normal 28.4-34.8 [facility] Comment on above: Performed By: #### C P, CBC #### [address] [place] [address] [employer]er: Amilcar Wing MD #### HIVCMB #### [address] [place], [place] [id number] [employer]: Leonardo Sánchez MD MCV (RBC) [Entitic vol] 99.3 fL Normal 82.6-102.9 [facility] Comment on above: Performed By: #### C P, CBC #### [facility] [address] [place] [address] [employer]er: Amilcar Wing MD #### HIVCMB #### [address] [id number] [employer]: Leonardo Sánchez MD NRBC Automated 0.0 per 100 WBC Normal 0.0 [facility] Comment on above: Performed By: #### C P, CBC #### [facility] [address] [place] [place] [id number] [employer]: Amilcar Wing MD #### HIVCMB #### [address] [id number] [employer]: Leonardo Sánchez MD Platelet mean volume (Bld) [Entitic vol] 9.4 fL Normal 8.1-13.5 [facility] Comment on above: Performed By: #### C P, CBC #### [facility] [address] [place] [place] [id number] [employer]: Amilcar Wing MD #### HIVCMB #### [address] [address] [employer]: Leonardo Sánchez MD Platelets (Bld) [#/Vol] 238 10*3/uL Normal 138-453 [facility] Comment on above: Performed By: #### C P, CBC #### [facility] [address] [place], [place] [id number] [employer]: Amilcar Wing MD #### HIVCMB #### [address] [address] [employer]: Leonardo Sánchez MD RBC (Bld) [#/Vol] 4.37 10*6/uL Normal 3.95-5.11 [facility] Comment on above: Performed By: #### C P, CBC #### [facility] [address] [place] [address] [employer]er: Amilcar Wing MD #### HIVCMB #### [facility] [address] [place], [place] [id number] [employer]er: Leonardo Sánchez MD WBC (Bld) [#/Vol] 7.5 10*3/uL Normal 3.5-11.3 [facility] Comment on above: Performed By: #### C P, CBC #### [facility] [address] [place] [address] [employer]er: Amilcar Wing MD #### HIVCMB #### [facility] [address] [place] [address] Metal Mixer: Leonardo Sánchez MD Erythrocyte distribution width (RBC) [Ratio] 11.8 % 11.8 - 14.4 % [place] Hematocrit (Bld) [Volume fraction] 43.4 % 36.3 - 47.1 % [place] Hemoglobin (Bld) [Mass/Vol] 14.4 g/dL 11.9 - 15.1 g/dL [place] MCH (RBC) [Entitic mass] 33.0 pg 25.2 - 33.5 pg [place] MCHC (RBC) [Mass/Vol] 33.2 g/dL 28.4 - 34.8 g/dL [place] MCV (RBC) [Entitic vol] 99.3 fL 82.6 - 102.9 fL [place] Platelet mean volume (Bld) [Entitic vol] 9.4 fL 8.1 - 13.5 fL [place] Platelets (Bld) [#/Vol] 238 10*3/uL [place] RBC (Bld) [#/Vol] 4.37 10*6/uL 3.95 - 5.1 1 m/uL [place] WBC (Bld) [#/Vol] 7.5 10*3/uL [place] WBC (Bld) [#/Vol] 0.0 10*3/uL 0.0 per 10 0 WBC [place] Comp Metabolic Profon 2019 (cont.) Normal [facility] Comment on above: Result Comment: Aver age GFR for 20-29 years old: 116 mL/min/1.73sq m Chronic Kidney Disease: <60 mL/min/1.73sq m Kidney failure: <15 mL/min/1.73sq m eGFR calculated using average adult body mass. Additional eGFR calculator available at: http://www.[employer]/multiple_crcl_2012.htm Performed By: #### C P, CBC #### [facility] [address] [place] [address] [place]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 03/27/23 14:46 Lactulose 20 Gm/30 Ml Udc PO 03/26/24 14:45 DAILY PRN Constipation Lactulose 10 gm 03/28/23 09:00 04/01/23 08:59 Lactulose 20 Gm/30 Ml Udc PO 03/27/24 08:59 10 gm QAM [facility] Administration Magnesium Oxide 200 mg 03/28/23 09:00 04/01/23 08:59 Magnesium Oxide 400 Mg Tablet PO 03/27/24 08:59 200 mg QAM [facility] Administration Menthol/Methyl Salicylate 1 applic 03/30/23 01:54 [...] equipment? to enhance the patient's a functional presybeterian Encourage deep breathing exercises and incentive spirometry RD evaluation Ensure adequate nutrition and hydration Discharge planning. Updates/Medical Issues -Appreciate Neurology f/u. Feel neuropathy is likely metabolic in nature possibly related to liver issues. ---Will establish with [facility] Gastro, also recommended evaluation by [facility] Neurology. -MR cervical spine and venous duplex [...] Allied health note review, nursing note review, oracle scm consultant note review, discussion with nursing and case management, and more than 50% of my time was spent on counseling and coordination of care, time spent 25 minutes ? Patient was personally seen by me, Dr. Giron, on the day of encounter, I reviewed the history and the relevant portions of the chart, including current orders, allied health and oracle scm consultant notes, labs/imaging and performed wren elements of exam and I formulated the plan of care and facilitated the medical decision making. Documented By: Marc Giron MD 04/02/23913 Signed By: <Electronically signed by Marc Giron MD> 04/02/23 1200 [facility] Work Phone: 1(653) 952-299009-11-2023 Progress note Author David Chowdary [facility] April 01, 2023 3:01pm Note Date/Time April 01, 2023 2:58pm [facility] [address] [place] [address] Neurology Progress Note Signed Patient: Rica Stout MR#: [id number] : 1995 Acct:[id number] Age/Sex: 27 / F Adm Date: 3 Loc: Room: [address] [place] [address] Type: ADM IN Attending Dr: Marc Giron [...] options The patient should be scheduled with industrial production manager as outpatient for further treatment of underlying liver dysfunction The patient can follow-up in the adult outpatient neurology clinic with Dr. Arrington We will continue to follow with supportive therapy. I discussed the case with Dr. Giron Code(s): G62.9 - Polyneuropathy, unspecified Status: Acute Documented By: David Chowdary MD 04/01/23 1457 Signed By: <Electronically signed by MD David Chowdary> 04/01/23 1500 [facility] Work Phone: 1(751) 743-268009-11-2023 Progress note Author Marc Giron [facility] April 01, 2023 11:55am Note Date/Time April 01, 2023 10:18am [facility] [address] [place] [address] Physiatry(Rehab) Progress Note Signed Patient: Rica Stout MR#: [id number] : 1995 Acct:[id number] Age/Sex: 27 / F Adm Date: 3 Loc: Room: 6A0447-6 Type: ADM IN Attending Dr: Marc Giron [...] up them.? Patient previously worked at a [employer], but had to quit her job earlier [...] mg 03/27/23 14:46 Bisacodyl 10 Mg Supp.Rect MI 03/26/24 14:45 DAILY PRN Constipation Diclofenac Sodium 2 gm 03/30/23 09:00 04/01/23 08:59 Diclofenac Sodium 1% Gel 50 Gm Tube TOPICAL 03/29/24 08:59 2 gm TID ROXANNE Administration Docusate Sodium 100 mg 03/27/23 14:46 Docusate 100 Mg Capsule PO 03/26/24 14:45 BID PRN Constipation Docusate Sodium 283 mg 03/27/23 14:46 Docusate Enema 283 Mg/5 Ml Enema MI 03/26/24 14:45 DAILY PRN Constipation Enoxaparin Sodium [...] equipment? to enhance the patient's a functional presybeterian Encourage deep breathing exercises and incentive spirometry [...] Allied health note review, nursing note review, oracle scm consultant note review, discussion with nursing and case management, and more than 50% of my time was spent on counseling and coordination of care, time spent 25 minutes ? Patient was personally seen by me, Dr. Giron, on the day of encounter, I reviewed the history and the relevant portions of the chart, including current orders, allied health and oracle scm consultant notes, labs/imaging and performed wren elements of exam and I formulated the plan of care and facilitated the medical decision making. Documented By: Marc Giron MD 04/01/23 1017 Signed By: <Electronically signed by Marc Giron MD> 04/01/23 3509 [facility] Work Phone: 1([phone]) 317-673009-09-2023 Consult note Author David Chowdary [facility] March 30, 2023 1:15pm Note Date/Time March 30, 2023 1:13pm [facility] [address] [place] [address] Neurology Consult Note Signed Patient: Rica Stout MR#: [id number] : 1995 Acct:[id number] Age/Sex: 27 / F Adm Date: 3 Loc: Room: [address] [place] [address] Type: ADM IN Attending Dr: Marc Giron MD Copies to: MD Danuta Hernandez, PAYROLL EXAMINER David Chowdary MD~ HPI Consult Date: 03/30/23 Radiology Services Manager: David Chowdary MD Reason for consult: Polyneuropathy [...] negative unless noted below or in HPI [facility] Medical History Hyperammonemia No pertinent [...] By: <Electronically signed by MD David Chowdary> 03/30/230 [facility] Work Phone: [phone]) 617-637909-09-2023 Progress note Author Marc Giron [facility] March 30, 2023 11:43am Note Date/Time March 30, 2023 11:43am [facility] [address] [place] [address] Physiatry(Rehab) Progress Note Signed Patient: Rica Stout MR#: [id number] : 1995 Acct:[id number] Age/Sex: 27 / F Adm Date: 3 Loc: Room: [address] [place] [address] Type: ADM IN Attending Dr: Marc Giron [...] walk up them.? Patient previously worked at [employer], but had to quit her job earlier [...] mg 03/27/23 14:46 Bisacodyl 10 Mg Supp.Rect MI 03/26/24 14:45 DAILY PRN Constipation Diclofenac Sodium 2 gm 03/30/23 09:00 03/30/23 09:53 Diclofenac Sodium 1% Gel 50 Gm Tube TOPICAL 03/29/24 08:59 2 gm TID ROXANNE Administration Docusate Sodium 100 mg 03/27/23 14:46 Docusate 100 Mg Capsule PO 03/26/24 14:45 BID PRN Constipation Docusate Sodium 283 mg 03/27/23 14:46 Docusate Enema 283 Mg/5 Ml Enema MI 03/26/24 14:45 DAILY PRN Constipation Enoxaparin Sodium [...] Administration Magnesium Oxide 200 mg 03/28/23 09:00 09/09/23 08:12 Magnesium Oxide 400 Mg Tablet PO [...] equipment? to enhance the patient's a functional presybeterian Encourage deep breathing exercises and incentive spirometry [...] Allied health note review, nursing note review, oracle scm consultant note review, discussion with nursing and case management, and more than 50% of my time was spent on counseling and coordination of care, time spent 25 minutes ? Patient was personally seen by me, Dr. Giron, on the day of encounter, I reviewed the history and the relevant portions of the chart, including current orders, allied health and oracle scm consultant notes, labs/imaging and performed wren elements of exam and I formulated the plan of care and facilitated the medical decision making. Documented By: Marc Giron MD 03/30/23 1137 Signed By: <Electronically signed by Marc Giron MD> 03/30/23 1143 [facility] Work Phone: [phone]) 344-321809-07-2023 History and physical note Author Jamil Salazar [facility] March 28, 2023 1:36pm Note Date/Time March 28, 2023 9:14am [facility] [address] [place] [address] Physiatry (Rehab) H&P Signed Patient: Rica Stout MR#: [id number] : 1995 Acct:[id number] Age/Sex: 27 / F Adm Date: 3 Loc: Room: 0G4634-8 Type: ADM IN Attending Dr: Marc Giron MD Copies to: MD Marc Carty MD Kyle Denihan, DO,RES Danuta Araujo, ANDREA~ <Chip Lemus DO, RES - Last Filed: 03/28/23 11:04> Date of Service: 03/28/2023 HPI <Chip BurrellDO adan, RES - Last Filed: 03/28/23 11:04> The [...] walk up them. Patient previously worked at [employer], but had to quit her job earlier this year due to her symptoms. Currently she denies any chest pain, shortness of breath, acute visual changes, abdominal pain, nausea, vomiting, fevers, loss of bowel or bladder control. PMFSH <Chip Lemus DO RES - Last Filed: 03/28/23 11:04> Medical History Hyperammonemia No pertinent past medical history Transaminitis Surgical History History of section Family History Mother Cancer Breast Social History Smoking Status: Current every day smoker Tobacco Type: e-cigarettes Substance Use Type: None Substance Abuse Comment: daily drinker previously, none in the past week. Review of Systems <Chip Lemus DO RES - Last Filed: 03/28/23 11:04> Constitutional [...] Bisacodyl (Bisacodyl 10 Mg Supp.Rect) 10 mg MI DAILY PRN PRN Reason: Constipation Stop: 03/26/24 14:45 Docusate Sodium (Docusate 100 Mg Capsule) 100 mg PO BID PRN PRN Reason: Constipation Stop: 03/26/24 14:45 Docusate Sodium (Docusate Enema 283 Mg/5 Ml Enema) 283 mg MI DAILY PRN PRN Reason: Constipation Stop: 03/26/24 14:45 Enoxaparin Sodium (Enoxaparin 40 Mg/0.4 Ml Syringe) 40 mg SUBCUT DAILY@1000 ROXANNE Stop: 03/27/24 09:59 Folic Acid (Folic Acid 1 Mg Tablet) 1 mg PO QAM ROXANNE Stop: 03/27/24 08:59 Gabapentin (Gabapentin 100 Mg Capsule) 100 mg PO TID [facility] Stop: 03/26/24 21:59 Last Admin: 03/27/23 21:06 Dose: 100 mg Lactulose (Lactulose 20 Gm/30 Ml Udc) 30 gm PO DAILY PRN PRN Reason: Constipation Stop: 03/26/24 14:45 Lactulose (Lactulose 20 Gm/30 Ml Udc) [facility] Stop: 03/27/24 08:59 Magnesium Oxide (Magnesium Oxide 400 Mg Tablet) 200 mg PO QAM [facility] Stop: 03/27/24 08:59 Potassium Chloride (Potassium Chloride Er 20 Meq Tab.Er.Prt) 20 meq PO BID [facility] Stop: 03/26/24 20:59 Last Admin: 03/27/23 21:06 Dose: 20 meq Sennosides (Sennosides 8.6 Mg Tablet) 2 tab PO DAILY@12 PRN PRN Reason: If no BM in 2 days Stop: 03/27/24 11:59 Sodium Chloride (Sodium Chloride 0.9 % 10 Ml Syringe) 0 ml IV-PUSH PRN PRN PRN Reason: Flush Stop: 03/26/24 14:45 Thiamine HCl (Thiamine 100 Mg Tablet) 100 mg PO [facility] Stop: 03/27/24 08:59 Tramadol HCl [...] up the lower extremities. She has 4/5 children's counselor strength in her hands bilaterally with pain [...] % (Auto) 55.2 Lymph % (Auto) 30.9 [place] % (Auto) 7.5 Eos % (Auto) 5.0 Baso % (Auto) 1.4 Nucleat RBC Rel Count 0.2 Neut # (Auto) 3.7 Lymph # (Auto) 2.1 [place] # (Auto) 0.5 Eos # (Auto) 0.3 [...] 24 hour daily monitoring and intervention from Physician Assistant Psychiatry as well as other consulting physicians including internal medicine as well as 24 hour daily industrial controller nursing - for medical safe / optimal [...] equipment to enhance the patient's a functional presybeterian Encourage deep breathing exercises and incentive spirometry [...] Allied health note review, nursing note review, oracle scm consultant note review, discussion with nursing and case management, and more than 50% of my time was spent on counseling and coordination of care, time spent 70 minutes Patient was personally seen by me, Dr. Salazar, on the day of encounter, within 24 hours of rehab admission, reviewed the history and the relevant portions of the chart, including current orders, allied health and oracle scm consultant notes, labs/imaging and performed wren elements [...] signed by Jamil Salazar MD> 03/28/23 1336 [facility] Work Phone: 1(919) 951-511109-06-2023 Progress note Author Marc Giron [facility] March 27, 2023 10:24am Note Date/Time March 27, 2023 10:25am [facility] [address] [place] [address] Physiatry(Rehab) Progress Note Signed Patient: Rica Stout MR#: [id number] : 1995 Acct:[id number] Age/Sex: 27 / F Adm Date: 3 Loc: 4N Room: [address] [place] [address] Type: ADM IN Attending Dr: Brianne Umanzor [...] 3.1 Globulin (PEP) 2.8 Albumin/Globulin (PEP) 1.1 Rcbih-8-Bsrrassqy 0.2 Qjaxd-3-Luhvtvyby 0.7 Beta Globulins 0.9 Gamma Globulins 1.1 [...] -Received insurance approval today for transfer to [facility]. Can be admitted when cleared by primary team -We can adjust her pain meds upon transfer. Plan: I completed a substantive portion of this encounter, the medical decision makingportion of this note in its entirety, including Allied health note review, nursing note review, oracle scm consultant note review, discussion with nursing and case management, and more than 50% of my time was spent on counseling and coordination of care, time spent 25 minutes Patient was personally seen by me, Dr. Giron, on the day of encounter, reviewed the history and the relevant portions of the chart, including current orders, allied health and oracle scm consultant notes, labs/imaging and performed wren elements of exam and I formulated the plan of care and facilitated the medical decision making. Documented By: Marc Giron MD 03/27/23 1022 Signed By: <Electronically signed by Marc Giron MD> 03/27/23 60 [place] [address] Work Phone: 1(445) 610-854309-05-2023 Progress note Author Brianne Umanzor [facility] March 26, 2023 2:36pm Note Date/Time March 26, 2023 2:36pm [facility] [address] [place] [address] Hospitalist Progress Note Signed Patient: Rica Stout MR#: [id number] : 1995 Acct:[id number] Age/Sex: 27 / F Adm Date: 3 Loc: Room: [address] [place] [address] Type: ADM IN Attending Dr: Brianne Umanzor [...] <Electronically signed by Brianne Umanzor MD> 03/26/23 8797 [facility] Work Phone: 1(812) 938-498509-05-2023 Consult note Author Marc Giron [facility] March 26, 2023 12:50pm Note Date/Time March 26, 2023 9:50am [facility] [address] [place] [address] Physiatry (Rehab) Consult Note Signed Patient: Rica Stout MR#: [id number] : 1995 Acct:[id number] Age/Sex: 27 / F Adm Date: 3 Loc: 4N Room: [address] [place] [address] Type: ADM IN Attending Dr: Brianne Umanzor MD Copies to: MD Brianne Hernandez MD Pamela Sue Cramer, ANDREA~ Etiologic Dx/Impairment Group Narrative Narrative: Sensorimotor polyneuropathy HPI Consult Date: 03/26/23 Requesting Physician: Brianne Umanzor MD Primary Care Provider: Danuta Araujo, CUSTOMER SERVICER-C Consult Narrative Reason for consult: Functional decline [...] negative unless noted below or in HPI [facility] Medical History Hyperammonemia No pertinent [...] supervision is both reasonable and necessary, including wvso-cs-evwj visits at least 3 days/week with the [...] Allied health note review, nursing note review, oracle scm consultant note review, discussion with nursing and case management, and more than 50% of my time was spent on counseling and coordination of care, time spent 65 minutes Patient was personally seen by me, Dr. Giron, on the day of encounter, reviewed the history and the relevant portions of the chart, including current orders, allied health and oracle scm consultant notes, labs/imaging and performed wren elements of exam and I formulated the plan of care and facilitated the medical decision making. Documented By: Marc Giron MD 03/26/23 8469 Signed By: <Electronically signed by Marc Giron MD> 03/26/23 7985 [facility] Work Phone: 1(879) 128-342909-04-2023 Progress note Author Brianne Umanzor [facility] March 25, 2023 1:31pm Note Date/Time March 25, 2023 1:31pm [facility] [address] [place] [address] Hospitalist Progress Note Signed Patient: Rica Stout MR#: [id number] : 1995 Acct:[id number] Age/Sex: 27 / F Adm Date: 3 Loc: 4N Room: 0I8125-6 Type: ADM IN Attending Dr: Brianne Umanzor [...] signed by Brianne Umanzor MD> 03/25/23 1331 [facility] Work Phone: 1(570) 889-908509-03-2023 Progress note Author Brianne Umanzor [facility] March 24, 2023 12:31pm Note Date/Time March 24, 2023 12:31pm [facility] [address] [place] [address] Hospitalist Progress Note Signed Patient: Rica Stout MR#: [id number] : 1995 Acct:[id number] Age/Sex: 27 / F Adm Date: 3 Loc: 4N Room: [address] [place] [address] Type: ADM IN Attending Dr: Brianne Umanzor [...] signed by Brianne Umanzor MD> 03/24/23 1231 [facility] Work Phone: 1(847) 988-757409-03-2023 Progress note Author Loli Cheema [facility] March 24, 2023 10:52am Note Date/Time March 24, 2023 9:58am [facility] [address] [place] [address] Neurology Progress Note Signed Patient: Rica Stout MR#: [id number] : 1995 Acct:[id number] Age/Sex: 27 / F Adm Date: 3 Loc: 4N Room: 9Y2047-0 Type: ADM IN Attending Dr: Brianne Umanzor [...] of dysmetria with good rapid alternating movements auxejp-vc-ndnm Tone is physiologic Deep tendon reflexes are [...] be a hereditary sensorimotor neuropathy such as Gcjhkrl-Apvyv-Xdhil and she will likely need some genetic [...] signed by DO Loli Cheema> 03/24/23 1052 [facility] Work Phone: 1(641) 207-556009-02-2023 Progress note Author Brianne Umanzor [facility] March 23, 2023 1:49pm Note Date/Time March 23, 2023 1:49pm [facility] [address] [place] [address] Hospitalist Progress Note Signed Patient: Rica Stout MR#: [id number] : 1995 Acct:[id number] Age/Sex: 27 / F Adm Date: 3 Loc: Room: [address] [place] [address] Type: ADM IN Attending Dr: Brianne Umanzor [...] <Electronically signed by Brianne Umanzor MD> 03/23/23 4441 [facility] Work Phone: 1(643) 739-573009-02-2023 Progress note Author Loli Cheema [facility] March 23, 2023 12:13pm Note Date/Time March 23, 2023 11:07am [facility] [address] [place] [address] Neurology Progress Note Signed Patient: Rica Stout MR#: [id number] : 1995 Acct:[id number] Age/Sex: 27 / F Adm Date: 3 Loc: 4N Room: [address] [place] [address] Type: ADM IN Attending Dr: Brianne Umanzor [...] of dysmetria with good rapid alternating movements fpkddk-ox-dmud Tone is physiologic Deep tendon reflexes are [...] be a hereditary sensorimotor neuropathy such as Ljvvuqp-Vsdna-Lscew and she will likely need some genetic [...] signed by DO Loli Cheema> 03/23/23 1213 [facility] Work Phone: 1(637) 635-295409-01-2023 Consult note Author Chele Gamino [facility] March 22, 2023 3:54pm Note Date/Time March 22, 2023 1:28pm [facility] [address] [place] [address] Neurology Consult Note Signed Patient: Rica Stout MR#: [id number] : 1995 Acct:[id number] Age/Sex: 27 / F Adm Date: 3 Loc: 4N Room: 9R8037-3 Type: ADM IN Attending Dr: Brianne Umanzor MD Copies to: DO Brianne Stevenson MD Pamela Sue Cramer, PAYROLL EXAMINER~ HPI Consult Date: 03/22/23 Radiology Services Manager: Chele Gamino DO [facility] Medical History (Updated 03/22/23 @ [...] Dave Clark M.D.03/22/2023 8:07 AM Dictation Location: [place] [address] 03/21/23 21:23 IMPRESSION: Unremarkable exam Impression dictated by: Dave Clark M.D.03/22/2023 8:08 AM Dictation Location: [place] [address] Assessment/Plan (1) Weakness of distal arms and [...] supposed to have an appointment with a industrial production manager today to figure out what to [...] had to quit her job at a [employer] because it was too much time on [...] <Electronically signed by Chele Gamino DO> 03/22/23 1557 [facility] Work Phone: 1([phone]) 502-612009-01-2023 Progress note Author Brianne Umanzor [facility] March 22, 2023 12:53pm Note Date/Time March 22, 2023 12:52pm [facility] [address] [place] [address] Progress Note Signed Patient: Rica Stout MR#: [id number] : 1995 Acct:[id number] Age/Sex: 27 / F Adm Date: 3 Loc: 4 Room: [address] [place] [address] Type: ADM IN Attending Dr: Brianne Umanzor [...] <Electronically signed by Brianne Umanzor MD> 03/22/23 6383 [facility] Work Phone: 1(350) 338-847109-01-2023 History and physical note Author Parveen Keller [facility] March 22, 2023 7:30am Note Date/Time March 22, 2023 1:25am [facility] [address] [place] [address] Hospitalist H&P Signed Patient: Rica Stout MR#: [id number] : 1995 Acct:[id number] Age/Sex: 27 / F Adm Date: 3 Loc: Room: [address] [place] [address] Type: ADM IN Attending Dr: Parveen Keller MD Copies to: MD Danuta Toscano, ANDREA Rico, BLEACH SUPERVISOR~ HPI DATE OF EXAMINATION: 03/22/23 CHIEF COMPLAINT: [...] also reports pitting edema to BLE, decreasing children's counselor strength inboth of her hands. She saw [...] She has had testing done at the [facility] where they foundher liver enzymes were [...] bolus. [facility] of the[facility]ist team for further evaluation and treatment. Review of Systems Review of Systems Review of systems: A 10 point review of systems was obtained, negative unless noted in the HPI or below. [facility] Medical History (Updated 03/22/23 @ [...] % (Auto) 29.7 % (.) 03/21/23 19:15 [place] % (Auto) 7.6 % (.) 03/21/23 19:15 Eos % (Auto) 2.7 % (.) 03/21/23 19:15 Baso % (Auto) 1.6 % (.) 03/21/23 19:15 Nucleat RBC Rel Count 0.1 /100 WBC (0-0.5) 03/21/23 19:15 Neut # (Auto) 4.2 x10E3/uL (1.8-7.7) 03/21/23 19:15 Lymph # (Auto) 2.1 x10E3/uL (1.00-4.8) 03/21/23 19:15 [place] # (Auto) 0.5 x10E3/uL (0.0-0.8) 03/21/23 19:15 [...] pH 5.0 (5.0-9.0) 03/21/23 19:25 Ur Specific [place] 1.019 (1.001-1.030) 03/21/23 19:25 Urine Protein Trace [...] CSF Neutrophils N/A 03/21/23 23:50 CSF Neutrophils Hydrochloric Manufacturing Supervisor 03/21/23 23:50 CSF Lymphocytes N/A 03/21/23 [...] the plan of care and confirmed the PAYROLL EXAMINER's written note. Documented By: Yoana Rico APRN 03/22/23 0125 Signed By: <Electronically signed by HODAN Rico> 03/22/23 0207 <Electronically signed by Parveen Keller MD> 03/22/23 0730 [facility] Work Phone: Consult note Author Jane Tracey [facility] May 30, 2023 3:16pm Note Date/Time May 30, 2023 2 :16pm [facility] [place] [address] Hem/Onc Consult Note - OP Signed Patient: Rica Stout MR#: [id number] : 1995 Acct:[id number] Age/Sex: 27 / F Type: REG RCR Copies to: DO Danuta Drake CNP Sarah E Carroll, HODAN-STARCH COOKER-C~ HPI Date/Time of Service: Date of Service: [...] it was minimally effective. She also saw [facility] neurologist 05/22/23 but we do not have [...] with and without contrast was done at [facility] on 03/27/2023 revealed no cord compression or abnormal postcontrast enhancement. No significant spinal canal narrowing or neural foraminal narrowing. MRI of the lumbar spine with without contrast on 03/22/2023 revealed mild degenerative changes without significant spinal canal or neuroforaminal narrowing. It did reveal broad based disc bulges at T12-L1 and L1-L2. But no masses or abnormal postcontrast enhancement. Abdominal ultrasound at [facility] on 03/22/2023 revealed a prominent liver [...] was 58 which were normal. She saw [facility] GI who recommended liver biopsy but then decided to follow observation for now for 6 months. 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 Her Lipids were very high as well. She also has hypopigmented skin spots on both arms since March 2023, saw dermatology at [facility] who performed a skin biopsy but told her what sounds she has vascular insufficiency but no reports were available to us as well. She has not been using folic acid or thiamin since they ran out beginning of April 2023. She is wearing 30 days traffic monitor specialist currently due to history of tachycardia and she has been using magnesium and atenolol for that. She liver in an old house that has molds, mice and not sure if it has lead as well. 14 points systems were reviewed and are negative. [facility] - Medical History Medical History: [...] check angiotensin-converting enzymes rheumatoid factor recheck her APT as well as LDH C ANCA and [...] the reports from the skin biopsy, the [facility] dermatology note, and the [facility] neurology note. -Return in 4 weeks for [...] December 2018. [facility] GI [facility] who recommended transjugular liver biopsy which [...] etiology but she saw dermatology at the [facility] who performed a skin biopsy and the report of the skin biopsy is not available to us however she was told by dermatology there that she has vascular insufficiency causing the rash. -We will try to obtain the reports from the skin biopsy and dermatology note from [facility] dermatology. - Time with Patient Total Time Spent with Patient (Consult): 60 mins or more Coordination of Care & Counseling Time: Greater than 50% of time spent with patient was for coordination of care (as documented) and ajbu-cd-ayru counseling of patient and/or family. Dictated By: Jane Tracey MD DD/ [id number] Signed By: <Electronically signed by Jane Tracey MD> 05/30/23 1718 [facility] Work Phone: Discharge summary Author Brianne Umanzor [facility] March 27, 2023 2:45pm Note Date/Time March 27, 2023 2:38pm [facility] [address] [place] [address] Discharge Summary Signed Patient: Rica Stout MR#: [id number] : 1995 Acct:[id number] Age/Sex: 27 / F Adm Date: 3 Loc: 4N Room: [address] [place] [address]: Brianne Umanzor MD Copies to: MD Danuta Hdz, PAYROLL EXAMINER~ Providers Date of Discharge: 03/27/23 Discharging Provider: [...] GBS. She was found to have low ardbwdb52 and given once time dose here. Also [...] Discharge Plan Discharge Plan Patient Disposition: Rehab [facility] [facility] Activity: Ambulate as Tolerated Diet: Regular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
[2025-02-04] MEDS: DIAZEPAM 10 MG/2 ML SYRINGE 5 MG IV (20:16)
[2025-02-04] MEDS: FENTANYL CITRATE/PF 100 MCG/2 ML VIAL IV (20:17)
[2025-02-04 20:43] LABS: Glucose Urine UA NEGATIVE (NEGATIVE)
[2025-02-04] MEDS: 0.9 % SODIUM CHLORIDE 1,000 ML 999 ML IV (20:45)
--- NOTE | 2025-02-04 20:46 | CT_ITS ---
The [address] [address] Patient Name: RICA STOUT MRN: [id number] date: 1995 Sex: F Assigned Patient Location: ER Current Patient Location: Accession/Order Number: [id number] Exam Date: 02/04/2025 22:06 Report Date: 02/04/2025 22:16 At the request of: JESSICA LANDIN MD Procedure: CT lumbar spine wo con CT lumbar spine wo con 02/04/2025 9:56 PM History:Low back pain, urinary retention TECHNIQUE: Multi detector CT axial slices of the lumbar spine were obtained without IV contrast. Volumetric acquisition sagittal, coronal, and 3-D reconstructions were performed and reviewed on a separate workstation. CT was performed with one or more of the following dose reduction techniques: Automated exposure control, adjustment of the mA and/or kV according to patient size, or use of iterative reconstruction technique. COMPARISON: 10/18/2022 FINDINGS: There is preservation of the vertebral body heights. There is mild disc height loss at L5-S1. There is moderate disc height loss at T12-L1. No fractures or dislocations are seen. There is a mild dextro convex curvature of the lumbar spine. The paraspinous soft tissues are within normal limits. The visualized lung parenchyma is unremarkable. The visualized abdominal and pelvic viscera is unremarkable. CT/CT lumbar spine wo con IMPRESSION: No acute bony abnormality or malalignment. Degenerative changes are noted at T12-L1 and L5-S1 as above. Impression dictated by: Maxim Blake M.D. 02/04/2025 10:16 PM Dictation Location: [place] [address] Electronically authenticated by: [id number] Y Date: 02/04/2025 22:16
[2025-02-04 20:52] LABS: Cast Seen? NONE SEEN #/LPF (NONE SEEN); Crystals Seen? None Seen #/HPF (None Seen); Urine Culture Indicated NO
[2025-02-04 21:24] LABS: Hematocrit 37.5 % (36.0-48.0); Hemoglobin 13.0 g/dL (12.0-16.0); Immature Granulocytes Abs Auto 0.18 10^3/uL (0.00-0.03); Immature Granulocytes Pct Auto 1.9 % (0.0-0.5); Lymphocytes Absolute Auto 1.0 10^3/uL (1.2-3.8); Mean Corpuscular HGB Conc 34.7 g/dL (29.9-35.2); Mean Corpuscular Hemoglobin 30.2 pg (26.7-34.0); Mean Corpuscular Volume 87.2 fL (81.0-99.0); Platelet Count 312 10^3/uL (150-450); Red Blood Count 4.30 10^6/uL (4.20-5.40); White Blood Count 9.5 10^3/uL (4.0-11.0)
[2025-02-04 21:38] LABS: Alanine Aminotransferase 25 U/L (14-59); Albumin Globulin Ratio 0.8; Albumin Level 3.3 g/dL (3.4-5.0); Alkaline Phosphatase 75 U/L (46-116); Anion Gap 13.5; Aspartate Amino Transferase 20 U/L (15-37); Blood Urea Nitrogen 11.0 mg/dL (7.0-18.0); Calcium 8.7 mg/dL (8.5-10.1); Carbon Dioxide 24.3 mmol/L (21.0-32.0); Chloride 97 mmol/L (98-107); Estimated GFR (African America >60 (>=60 mL/min/1.73m^2); Estimated GFR (Non-African Ame >60 (>=60 mL/min/1.73m^2); Globulin 4.1 g/dL; Glucose 96 mg/dL (74-106); Sodium 132 mmol/L (136-145); Total Protein 7.4 g/dL (6.4-8.2)
[2025-02-04 21:41] LABS: Lactate/Lactic Acid 1.0 mmol/L (0.4-2.0)
[2025-02-04 21:50] LABS: Potassium 2.8 mmol/L (3.5-5.1)
--- NOTE | 2025-02-04 22:34 | XR_ITS ---
The [place] [id number] Patient Name: RICA STOUT MRN: [id number] date: 1995 Sex: F Assigned Patient Location: ED.MAIN Current Patient Location: ED.MAIN Accession/Order Number: [id number] Exam Date: 02/04/2025 23:10 Report Date: 02/04/2025 23:16 At the request of: JESSICA LANDIN MD Procedure: XR abdomen 1V XR abdomen 1V 02/04/2025 11:00 PM SIGNS AND SYMPTOMS: ^abdominal pain PROTOCOL: Frontal radiograph of the abdomen COMPARISON: 09/17/2014 FINDINGS: Mildly prominent air-filled loops of small and large bowel are noted without evidence of bowel obstruction. Stool and bowel gas which the rectum. There is a slight dextro convex curvature of the lumbar spine. XR/XR abdomen 1V IMPRESSION: No radiographic evidence of bowel obstruction. Impression dictated by: Maxim Blake M.D. 02/04/2025 11:16 PM Dictation Location: [place] [address] Electronically authenticated by: [id number] Y Date: 02/04/2025 23:16
[2025-02-04 22:45] VITALS: BP 132/80; PULSE 89; O2SAT 98
[2025-02-04] MEDS: POTASSIUM CHLORIDE 10 MEQ ER TABLET 40 MEQ PO (23:10)
--- NOTE | 2025-02-05 02:42 | PC.NURSE ---
at discharge, pt received extensive teaching in regards to managing the nj cath including; cath care, cath and bag positioning --keeping the bag lower than the bladder, how to change from a large bag to a leg bag and how to drain each one, how to keep the drainage tips clean, and emphasized the importance of calling for an appointment with her PCP and the recommended urologist.
== END 2025-02-04 22:45 | disposition home or self-care (01) ==
PROVIDERS: Emergency Provider Internal Medicine; PCP Nurse Practitioner Family
DX: R33.9 Retention of urine, unspecified (principal); R10.9 Unspecified abdominal pain
CPT/HCPCS: 36415; 51702; 72131; 74018; 80053; 81001; 83605; 85025; 96374; 96375; 99285; J3010; J3360